=== PATIENT | female | born 1955 | race Caucasian/White ===

== ENCOUNTER → 2016-12-12 | Day surgery (SDC) | payer OTHER ==
[2016-12-07 15:08] VITALS: Ht 154.9 cm; Wt 78.6 kg
[~2016-12-12] VITALS: Ht 154.9 cm; Wt 78.6 kg
[~2016-12-12] MED LIST: 500ML BSSPLUS 0.5ML EPI1:1000 IRRIG ONE; ACETAMINOPHEN 325 MG TAB PO PRN; ASPI81TA28 PO; ATROPINE SULFATE 0.1 MG/ML 5ML SYR IV PRN; ATROPINE SULFATE 1% OP OINT PER APPLICATION CHARGE ONE; ATROPINE SULFATE 1% OP SOLN 2 ML BTL ONE; BSS FLUSH ONE; BUPIVACAINE HCL 0.75% 10 ML AMP/VIAL ONE; CARV6.252 PO; CEFAZOLIN SOD 1 GM VIAL ONE; DEXAMETHASONE SOD INJ 4 MG/ML VIAL ONE; DEXTROSE 50% 50 ML SYR ONE; EpHEDrine SULFATE INJ 50 MG/ML AMP IV PRN; EpINEphrine INJ 1MG/ML AMP 1 MG/ML AMP ONE; FENTANYL CITRATE INJ 50 MCG/1 ML 2 ML VIAL ONE; FURO20TA PO; HYALURONIDASE HUMAN 150 UNIT/ML INJ ONE; INDOCYANINE GREEN 25 MG/10 ML ONE; INSDGI SC; LACTATED RINGER'S 1000ML 500 ML IV SCH; LIDOCAINE HCL 2% 2 ML VIAL (20MG/ML) ONE; LIDOCAINE MPF 4% INJ INJ ONE; LISI20TA3 PO; MIDAZOLAM HCL 1 MG/ML 2ML VIAL ONE; NEOMYCIN/POLYMYX/DEXAMETH OP OINT PER APP CHARGE ONE; OCUCOAT 1 ML SOLN IO ONE; ONDANSETRON INJ 2 MG/ML 2 ML VIAL IV PRN; ONDANSETRON INJ 2 MG/ML 2 ML VIAL ONE; POVIDONE-IODINE OP SOLN (SURGERY CNTR CHARGING ONLY) ONE; PROPARACAINE 0.5% OP SOLN PER DROP CHARGE OPL SCH; PROPOFOL IV EMULSION 10 MG/ML 20 ML VIAL IV ONE; TIMOLOL MALEATE 0.5% OP SOLN PER DROP CHARGE ONE; TRIAMCINOLONE ACETONIDE OPHTH 40 MG/ML VIAL STERILE IO ONE
[2016-12-12] MEDS: PHENYLEPHRINE HCL 2.5% OP SOLN PER DROP CHARGE OPL SCH ×2 (06:34→06:46)
[2016-12-12] MEDS: TROPICAMIDE 1% OP SOLN PER DROP CHARGE OPL SCH ×2 (06:35→06:47)
--- NOTE | 2016-12-12 06:57 | History & Physical Bridge - [place] ---
H&P Re-Evaluation Bridge Note: Pt has diabetic retinopathy of the left eye and is here for vitrectomy of the left eye. I have examined the patient, reviewed the History & Physical and in the interval since the performance of the History & Physical I have noted the following changes of clinical significance: No changes noted
--- NOTE | 2016-12-12 08:17 | [facility] Operative Report ---
Operative Report Date of Service Dec 12, 2016. Operative Report PREOPERATIVE DIAGNOSIS: Diabetic retinopathy with vitreous hemorrhage and tractional retinal detachment, left eye. POSTOPERATIVE DIAGNOSIS: same. PROCEDURE: 1. Pars plana vitrectomy, 23 gauge. 2. Membrane peeling/ segmentation. 3. Endolaser. All to the left eye. CPT CODE: 77636 SURGEON: Favian Stein D.O. COMPLICATIONS: None. ESTIMATED BLOOD LOSS: None. SPECIMENS: None. ANESTHESIA: Retrobulbar block and MAC INDICATIONS FOR PROCEDURE: Surgery is indicated to decrease risk of vision loss and potentially improve vision. CONSENT: The risks, benefits and alternatives were discussed with the patient including but not limited to decreased visual acuity, failure to achieve desired results, loss of the eye, infection, pain, glaucoma, lens changes, retinal tears, retinal detachment, the need for more procedures, drooping of the eyelid, blindness, and double vision. The patient is aware of risks and consents to the surgery. Consent is signed and on the chart. OPERATION AND FINDINGS: The patient was brought to the operating room where the patient was identified by name, date, and medical record number. The surgical site was confirmed with the informed written consent. The patient was sedated by the anesthesiology team after which a 50:50 mixture of 4% lidocaine and 0.75% bupivacaine with hyaluronidase was administered in a standard retrobulbar fashion. A total of 4 ml was administered without difficulty. The patient was then prepped and draped in the usual sterile manner for retinal surgery. A wire lid speculum was placed and an Quoc 23-gauge trocar cannula system was employed. The inferior temporal trocar cannula was first placed in an angled fashion 3.75mm posterior to the surgical limbus and the infusion cannula was inserted into this cannula after which the intravitreal position was verified prior to turning the infusion on. Two more trocar cannulas were then inserted in an angled fashion, one in the superior temporal, and one in the superior nasal quadrant both 3.75mm posterior to the surgical limbus. A light pipe and vitrector were then introduced into the eye and the BIOM wide angle viewing system was brought into place. Posterior inspection revealed proliferative diabetic retinopathy with tractional retinal detachments along the superior and inferior to the temporal arcades as well as in the temporal macula. There was also noted previous laser treatment. Standard core vitrectomy was performed and the vitreous was insured to be totally detached from the posterior pole with the aid of the vitrector. The areas of regressed neovascularization and tractional detachment were segmented with the vitrector and after this they relaxed and flattened nicely. Endolaser was used to perform fill-in davidson retinal photocoagulation. At this point scleral depression was performed for 360 degrees and no retinal tears or detachments were noted. The trocar cannulas were then removed and found to be water tight. The intraocular pressure was found to be within normal limits by palpation and subconjunctival injections of Kefzol and dexamethasone were administered inferiorly and superiorly. The wire lid speculum was removed. Maxitrol and Atropine ointments were applied to the surface of the eye. A light patch and shield were taped over the surface of the eye and the patient left the Operating Room in stable condition having tolerated the procedure well. DISPOSITION: The patient has an appointment the following morning in the Ophthalmology Clinic. The patient is to call immediately if there are any problems overnight. I attest to the content of the Intraoperative Record and any orders documented therein. Any exceptions are noted below.
--- NOTE | 2016-12-12 08:18 | Discharge Instructions-SurgCtr ---
Discharge Instructions Date of Service Dec 12, 2016. Visit Reason for Visit: Left Eye Diabetic Retinopathy Discharge Discharge Diagnosis / Problem: same Discharge Goals Goal(s): Improve function Medications Stopped Medications Name(s): Held aspirin since last Activity Recommendations Activity Limitations: per Instructions/Follow-up section Anesthesia . Post Anesthesia Instructions: If you have had General Anesthesia or IV Sedation: * Do not drive today. * Resume driving when surgeon permits. * Do not make important decisions or sign legal documents today. * Call surgeon for: 1. Temperature elevations greater than 101 degrees F. 2. Uncontrollable pain. 3. Excessive bleeding. 4. Persistent nausea and vomiting. 5. Medication intolerance (nausea, vomiting or rash). * For nausea and vomiting use only clear liquids such as: tea, soda, bouillon until nausea subsides, then gradually increase diet as tolerated. * If you have any concerns or questions, call your surgeon's office. If physician is unavailable and it is an emergency, call 911 or go to the nearest emergency room. . Instructions / Follow-Up Instructions / Follow-Up * May take Tylenol if needed for discomfort. * Do NOT remove eye shield. * NO straining, heavy lifting (>15 pounds) or bending below waist. * Avoid getting water or soap directly into operative eye. * Do NOT rub eye. If you experience increasing eye pain not relieved by medication, please contact us immediately at [phone]. If you are unable to reach someone at the above number, call [phone] and ask to speak with the EYE DOCTOR HALL SUPERVISOR. Inform them that you are a Dr. Stein patient who had recent surgery. Diet Recommendations Home Diet: resume previous diet Procedures Procedures Performed: Left Eye 23 Guage Vitrectomy, Endolaser, Segmentation and Peeling. Pending Studies Studies pending at discharge: no Medical Emergencies . Who to Call and When: Medical Emergencies: If at any time you feel your situation is an emergency, please call 911 immediately. . Non-Emergent Contact Non-Emergency issues call your: Theater Set Production Designer . . "Provider Documentation" section prepared by Favian Stein. .
[2016-12-12 08:38] VITALS: BP 155/84; PULSE 67; O2SAT 91
--- NOTE | 2016-12-12 08:49 | Anesthesia Progress Nt - [facility] ---
Anesthesia Post Op Note Date & Time Dec 12, 2016 at 08:49 Vital Signs Pain Intensity: 0 Vital Signs Past 12 Hours Date Time Temp Pulse Resp B/P (MAP) Pulse Ox O2 Delivery O2 Flow Rate FiO2 12/12/16 08:38 67 18 155/84 (107) 91 Room Air 12/12/16 08:16 36.2 60 14 124/69 (87) 94 Room Air 12/12/16 06:28 36.5 71 22 142/68 (92) 92 Room Air Notes Mental Status: alert / awake / arousable, participated in evaluation Pt Amnestic to Procedure: Yes Nausea / Vomiting: adequately controlled Pain: adequately controlled Airway Patency, RR, SpO2: stable & adequate BP & HR: stable & adequate Hydration State: stable & adequate Anesthetic Complications: no major complications apparent
== END | disposition home or self-care (01) ==
LOC: X.SURG 06:13
PROVIDERS: ATTEND Ophthalmology
DX: E11.3592 Type 2 diabetes mellitus with proliferative diabetic retinopathy without macular edema, left eye (principal); H33.22 Serous retinal detachment, left eye; E11.42 Type 2 diabetes mellitus with diabetic polyneuropathy; N18.4 Chronic kidney disease, stage 4 (severe); Z86.73 Personal history of transient ischemic attack (TIA), and cerebral infarction without residual deficits; Z79.4 Long term (current) use of insulin; Z79.82 Long term (current) use of aspirin; F43.21 Adjustment disorder with depressed mood; E11.29 Type 2 diabetes mellitus with other diabetic kidney complication; Z80.41 Family history of malignant neoplasm of ovary; Z82.49 Family history of ischemic heart disease and other diseases of the circulatory system; I12.9 Hypertensive chronic kidney disease with stage 1 through stage 4 chronic kidney disease, or unspecified chronic kidney disease; I50.20 Unspecified systolic (congestive) heart failure; I42.9 Cardiomyopathy, unspecified; E78.00 Pure hypercholesterolemia, unspecified; G47.30 Sleep apnea, unspecified; F32.9 Major depressive disorder, single episode, unspecified; F41.9 Anxiety disorder, unspecified; K21.9 Gastro-esophageal reflux disease without esophagitis

== ENCOUNTER → 2017-06-19 | Day surgery (SDC) | payer OTHER ==
[2017-06-06 14:41] VITALS: Ht 154.9 cm; Wt 75.9 kg
[~2017-06-19] VITALS: Ht 154.9 cm; Wt 75.9 kg
[~2017-06-19] MED LIST changes: -500ML BSSPLUS 0.5ML EPI1:1000 IRRIG ONE; -ATROPINE SULFATE 1% OP OINT PER APPLICATION CHARGE ONE; -ATROPINE SULFATE 1% OP SOLN 2 ML BTL ONE; -BSS FLUSH ONE; +CHOL1TAB42 PO; -DEXTROSE 50% 50 ML SYR ONE; +FENTANYL CITRATE INJ 50 MCG/1 ML 2 ML VIAL IV PRN; -LIDOCAINE MPF 4% INJ INJ ONE; -OCUCOAT 1 ML SOLN IO ONE; -ONDANSETRON INJ 2 MG/ML 2 ML VIAL IV PRN; -ONDANSETRON INJ 2 MG/ML 2 ML VIAL ONE; -PROPARACAINE 0.5% OP SOLN PER DROP CHARGE OPL SCH; +PROPARACAINE 0.5% OP SOLN PER DROP CHARGE OPR SCH
[2017-06-19] MEDS: PHENYLEPHRINE HCL 2.5% OP SOLN PER DROP CHARGE OPR SCH ×2 (10:36→10:41)
[2017-06-19] MEDS: TROPICAMIDE 1% OP SOLN PER DROP CHARGE OPR SCH ×2 (10:37→10:42)
--- NOTE | 2017-06-19 12:04 | History & Physical Bridge - [place] ---
H&P Re-Evaluation Bridge Note: pt has diabetic retinopathy right eye and is having vitrectomy right eye. I have examined the patient, reviewed the History & Physical and in the interval since the performance of the History & Physical I have noted the following changes of clinical significance: No changes noted
--- NOTE | 2017-06-19 13:03 | [facility] Post Operative Brief Note ---
Immediate Operative Summary Operative Date Jun 19, 2017. Pre-Operative Diagnosis Right Eye Diabetic Retinopathy Post-Operative Diagnosis Same Procedure(s) Performed Right Eye [address] Stein Autopsy Pathologist Surgeon(s) None Estimated Blood Loss none Findings Consistent with Post-Op Diagnosis Specimens None Anesthesia Type General
--- NOTE | 2017-06-19 13:07 | [facility] Operative Report ---
Operative Report Date of Service Jun 19, 2017. Operative Report PREOPERATIVE DIAGNOSIS: Diabetic retinopathy with vitreous hemorrhage, right eye. POSTOPERATIVE DIAGNOSIS: same. PROCEDURE: 1. Pars plana vitrectomy, 23 gauge. 2. Endolaser. All to the right eye. CPT CODE: 08669 SURGEON: Favian Stein D.O. COMPLICATIONS: None. ESTIMATED BLOOD LOSS: None. SPECIMENS: None. ANESTHESIA: Retrobulbar block and MAC INDICATIONS FOR PROCEDURE: Surgery is indicated to decrease risk of vision loss and potentially improve vision. CONSENT: The risks, benefits and alternatives were discussed with the patient including but not limited to decreased visual acuity, failure to achieve desired results, loss of the eye, infection, pain, glaucoma, lens changes, retinal tears, retinal detachment, the need for more procedures, drooping of the eyelid, blindness, and double vision. The patient is aware of risks and consents to the surgery. Consent is signed and on the chart. OPERATION AND FINDINGS: The patient was brought to the operating room where the patient was identified by name, date, and medical record number. The surgical site was confirmed with the informed written consent. The patient was sedated by the anesthesiology team after which a 50:50 mixture of 2% lidocaine and 0.75% bupivacaine with hyaluronidase was administered in a standard retrobulbar fashion. A total of 4 ml was administered without difficulty. The patient was then prepped and draped in the usual sterile manner for retinal surgery. A wire lid speculum was placed and an Quoc 23-gauge trocar cannula system was employed. The inferior temporal trocar cannula was first placed in an angled fashion 3.75mm posterior to the surgical limbus and the infusion cannula was inserted into this cannula after which the intravitreal position was verified prior to turning the infusion on. Two more trocar cannulas were then inserted in an angled fashion, one in the superior temporal, and one in the superior nasal quadrant both 3.75mm posterior to the surgical limbus. A light pipe and vitrector were then introduced into the eye and the BIOM wide angle viewing system was brought into place. Posterior inspection revealed partially regressed proliferative diabetic retinopathy with neovascularization tags superior and inferior to the temporal arcades. There was also noted previous laser treatment. Standard core vitrectomy was performed and the vitreous was insured to be totally detached from the posterior pole with the aid of the vitrector. The areas of regressed neovascularization were segmented with the vitrector and intraocular cautery was used to cauterize the neovascularization. Endolaser was used to perform fill -in davidson retinal photocoagulation. At this point scleral depression was performed for 360 degrees and no retinal tears or detachments were noted. The trocar cannulas were then removed and found to be water tight. The intraocular pressure was found to be within normal limits by palpation and subconjunctival injections of Kefzol and dexamethasone were administered inferiorly and superiorly. The wire lid speculum was removed. Maxitrol ointment was applied to the surface of the eye. A light patch and shield were taped over the surface of the eye and the patient left the Operating Room in stable condition having tolerated the procedure well. DISPOSITION: The patient has an appointment the following morning in the Ophthalmology Clinic. The patient is to call immediately if there are any problems overnight. I attest to the content of the Intraoperative Record and any orders documented therein. Any exceptions are noted below.
--- NOTE | 2017-06-19 13:08 | Discharge Instructions-SurgCtr ---
Discharge Instructions Date of Service Jun 19, 2017. Visit Reason for Visit: Diabetic Retinopathy Discharge Discharge Diagnosis / Problem: same Discharge Goals Goal(s): Improve function Activity Recommendations Activity Limitations: per Instructions/Follow-up section Anesthesia . Post Anesthesia Instructions: If you have had General Anesthesia or IV Sedation: * Do not drive today. * Resume driving when surgeon permits. * Do not make important decisions or sign legal documents today. * Call surgeon for: 1. Temperature elevations greater than 101 degrees F. 2. Uncontrollable pain. 3. Excessive bleeding. 4. Persistent nausea and vomiting. 5. Medication intolerance (nausea, vomiting or rash). * For nausea and vomiting use only clear liquids such as: tea, soda, bouillon until nausea subsides, then gradually increase diet as tolerated. * If you have any concerns or questions, call your surgeon's office. If physician is unavailable and it is an emergency, call 911 or go to the nearest emergency room. . Instructions / Follow-Up Instructions / Follow-Up * May take Tylenol if needed for discomfort. * Do NOT remove eye shield. * NO straining, heavy lifting (>15 pounds) or bending below waist. * Avoid getting water or soap directly into operative eye. * Do NOT rub eye. If you experience increasing eye pain not relieved by medication, please contact us immediately at [phone]. If you are unable to reach someone at the above number, call [phone] and ask to speak with the EYE DOCTOR STEAMER BLOCKER. Inform them that you are a Dr. Stein patient who had recent surgery. Diet Recommendations Home Diet: resume previous diet Procedures Procedures Performed: Left Eye 23 Gauge Vitrectomy, Endolaser Pending Studies Studies pending at discharge: no Medical Emergencies . Who to Call and When: Medical Emergencies: If at any time you feel your situation is an emergency, please call 911 immediately. . Non-Emergent Contact Non-Emergency issues call your: Commercial Drone Pilot . . "Provider Documentation" section prepared by Favian Stein. .
--- NOTE | 2017-06-19 13:28 | Anesthesia Progress Nt - [facility] ---
Anesthesia Post Op Note Date & Time Jun 19, 2017 at 13:28 Vital Signs Pain Intensity: 0 Vital Signs Past 12 Hours Date Time Temp Pulse Resp B/P (MAP) Pulse Ox O2 Delivery O2 Flow Rate FiO2 06/19/17 13:06 36 61 16 143/65 (91) 93 Room Air 06/19/17 10:32 36.8 78 16 112/66 (81) 95 Room Air Notes Mental Status: alert / awake / arousable, participated in evaluation Pt Amnestic to Procedure: Yes Nausea / Vomiting: adequately controlled Pain: adequately controlled Airway Patency, RR, SpO2: stable & adequate BP & HR: stable & adequate Hydration State: stable & adequate Anesthetic Complications: no major complications apparent
[2017-06-19 13:32] VITALS: BP 155/72; PULSE 66; TEMP 36.5; O2SAT 95
== END | disposition home or self-care (01) ==
LOC: X.SURG 10:02
PROVIDERS: ATTEND Ophthalmology
DX: E11.3511 Type 2 diabetes mellitus with proliferative diabetic retinopathy with macular edema, right eye (principal); F43.21 Adjustment disorder with depressed mood; E11.39 Type 2 diabetes mellitus with other diabetic ophthalmic complication; E11.42 Type 2 diabetes mellitus with diabetic polyneuropathy; E55.9 Vitamin D deficiency, unspecified; E78.5 Hyperlipidemia, unspecified; E11.29 Type 2 diabetes mellitus with other diabetic kidney complication; N18.4 Chronic kidney disease, stage 4 (severe); Z86.73 Personal history of transient ischemic attack (TIA), and cerebral infarction without residual deficits; Z79.82 Long term (current) use of aspirin; Z79.4 Long term (current) use of insulin; Z80.41 Family history of malignant neoplasm of ovary

== ENCOUNTER 2018-07-07 07:40 | Inpatient (IN) ==
--- NOTE | 2018-07-07 07:59 | Emergency Department Note ---
ED Visit Note Please see Dr. Adan's dictation regarding HPI and physical examination. I agree with all findings as previously outlined. X-ray was reviewed and noted a fracture/dislocation of the right ankle with complete disruption of the tibiotalar joint, markedly displaced angulated distal right fibular fracture and medial malleolar fracture. I was asked by Dr. Light to assist with the reduction while he performs a sedation. The patient has an obviously deformed right ankle. Dorsal pedal pulse 2+. PROCEDURE NOTE: Time out was called. The patient was appropriately sedated by Dr. Adan. Under sedation, the foot was dorsiflexed and gentle traction applied to the heel. The fracture/dislocation was felt to reduce into anatomical alignment. The fracture was extremely unstable and there was difficulty maintaining alignment after reduction. With optometric technologist assistance, an orthoglass posterior leg with stirrup splint was applied and molded by myself at the joint to maintain alignment. Neurovascular status was re-checked and in tact. The patient tolerated the procedure well. Please see Dr. Adan's dictation regarding ongoing management and care of this patient.
--- NOTE | 2018-07-07 08:08 | XRay Report ---
XR ankle RT 2V CLINICAL HISTORY: fall, dislocation?, frx? COMPARISON: None FINDINGS: There is complete disruption of the tibiotalar joint. There is a markedly displaced fractu re of the medial malleolus as well as a markedly displaced angulated comminuted distal right fibular fracture. Dome is intact. The distal medial tibia at site of fracture nearly extends to the skin. How ever, there is no soft tissue gas. IMPRESSION: Fracture/dislocation of the right ankle with complete disruption of the tibiotalar joint, markedly di splaced angulated distal right fibular fracture and medial malleolar fracture. Distal medial tibial f racture site extends nearly to the skin. No soft tissue gas identified however findings could be edison elated with physical exam to exclude an open fracture. Electronically signed by: Go Romeo M.D. 07/07/2018 8:06 AM
[2018-07-07] MEDS ORDERED: ONDANSETRON INJ 2 MG/ML 2 ML VIAL IV STA (08:17)
[2018-07-07] MEDS ORDERED: PROPOFOL IV EMULSION 10 MG/ML 20 ML VIAL IV STA (08:17)
[2018-07-07 08:18] LABS: Basophils # (auto) 0.03 K/uL (0-0.2); Basophils % (auto) 0.4 %; Eosinophils # (auto) 0.28 K/uL (0-0.5); Eosinophils % (auto) 4.1 %; Hemoglobin 10.4 g/dL (12.0-16.0); Immature Granulocytes # (auto) 0.03 K/uL (0.00-0.02); Immature Granulocytes % (auto) 0.4 %; Lymphocytes # (auto) 2.24 K/uL (1.2-3.4); Lymphocytes % (auto) 32.4 %; Mean Corpuscular Hgb Conc 32.5 g/dL (32-36); Mean Corpuscular Volume 89.9 fL (80-100); Mean Platelet Volume 9.2 fL (7.4-10.4); Monocytes # (auto) 0.37 K/uL (0.11-0.59); Monocytes % (auto) 5.4 %; Neutrophils # (auto) 3.96 K/uL (1.4-6.5); Neutrophils % (auto) 57.3 %; Platelet Count 286 K/uL (130-400); RDW Coefficient of Variation 13.3 % (11.5-14.5); RDW Standard Deviation 43.8 fL (36.4-46.3); Red Blood Count 3.56 M/uL (4.2-5.4); White Blood Count 6.91 K/uL (4.8-10.8)
--- NOTE | 2018-07-07 08:25 | Procedure Note ---
Procedure Note Date of Service July 07, 2018 Pre Sedation Assessment Vital Signs Temp Pulse Resp BP Pulse Ox 07/07/18 07:44 36.7 C 66 17 193/85 H 97 Pre-Sedation Airway Assessment Smoking Status: Never smoker Notes The planned sedation has been discussed with the patient. Informed Consent was obtained. I have identified the patient, determined the appropriateness of sedation and have assessed the patient immediately prior to the procedure. All medicine(s) and interventions are by my order. Mallampati 3 and ASA class II due to chronic medical conditions. Patient is more than 8 hours n.p.o. Plan for utilization of propofol with Zofran.
--- NOTE | 2018-07-07 08:26 | Procedure Note ---
Procedure Note Date of Service July 07, 2018 50MG propofol used without complication for procedural sedation. Post Sedation Assessment Vital Signs Temp Pulse Resp BP Pulse Ox 07/07/18 07:44 36.7 C 66 17 193/85 H 97 Post Sedation Plan On clinical assessment, the patient appears to have tolerated the sedation without complications. Patient is recovering as anticipated. Patient will continue to be monitored by nursing and may be discharged when sedation discharge criteria are met per below protocol. Upon Completions of procedure and additional 15 minutes continue every 5 minute vital signs and the P.A.R. score; then discharge to a Phase I or Fast Track to Phase II per the following guidelines: * Discharge Patient to appropriate Phase II area if PAR is 8 or greater or return to pre- procedure baseline. The post - procedure orders will be as directed. * If PAR score is less than 8 or not return to pre-procedure baseline then patient will follow Phase I monitoring till PAR is reached for Phase II. The Phase I may be done in procedure room or may call to secure a Phase I area. * If naloxone or flumazenil are used for reversal, hold in Phase I for continued monitoring from when last reversal dose was given for a minimum of 60 minutes or longer pending the nurse and/or physician discretion of patient condition before discharge to Phase II. Please call the Sedation Physician to re-evaluate and complete post-note for discharge to Phase II area. Do NOT discharge from procedure sedation or Phase 1 until post- sedation evaluation note is complete by procedure /sedation MD Sedation Discharge Instructions to be given to the patient at discharge to home.
[2018-07-07 08:28] LABS: BUN Creatinine Ratio 30.4 (10-20); Calcium 8.9 mg/dl (8.5-10.1); Creatinine Clr Calc Pharmacy 20.6 ml/min; Est GFR (African American) 18.9; Est GFR (Non-African American) 16.3; Potassium 3.9 mmol/L (3.5-5.1)
--- NOTE | 2018-07-07 09:13 | XRay Report ---
XR tibia fibula RT 2V CLINICAL HISTORY: Fall. Postreduction. COMPARISON: Right ankle radiographs performed earlier today. FINDINGS: Overlying cast is noted. No proximal right tibial or fibular fracture is identified. Align ment of the fracture/dislocation of the right ankle has markedly improved post reduction. There is mi nimal residual medial ankle mortise widening. Alignment of the distal right fibular and tibial fractu res has markedly improved. IMPRESSION: Marked improvement in alignment of the fracture/dislocation of the right ankle post reduc tion. Electronically signed by: Go Romeo M.D. 07/07/2018 9:12 AM
--- NOTE | 2018-07-07 09:14 | XRay Report ---
XR ankle RT min 3V routine CLINICAL HISTORY: post reduction COMPARISON: Right ankle radiographs July 07, 2018 at 7:40 AM. FINDINGS: Overlying cast is noted. Alignment of the right ankle fracture/dislocation has markedly im proved post reduction. Comminuted distal right fibular fracture is noted as well as the medial malleo jolie fracture. Fractures are now mildly displaced. There is mild residual ankle mortise widening. No a dditional fractures are present. Talar dome is intact. IMPRESSION: Marked improvement in alignment of the fracture/dislocation of the right ankle postreduct ion. . Electronically signed by: Go Romeo M.D. 07/07/2018 9:13 AM
--- NOTE | 2018-07-07 10:08 | Emergency Department Note ---
Entered by Alba Au acting as a scribe for Rian Adan M.D. History of Present Illness General Chief complaint: Fall Stated complaint: fall/ ankle pain Time Seen by Provider: 07/07/18 07:44 Source: patient Mode of arrival: EMS Limitations: no limitations History of Present Illness Onset (ago): hour(s) 1 Location: lower extremity (right ankle) Radiation: non-radiation Pain Consistency: + constant Current Pain Intensity: 5 Relieved By: + none Exacerbated By: + movement Associated symptoms: + other (-knee pain, -LOC) Treatments prior to arrival: none The patient is a 63 year old female who presents to the Emergency Room with complaints of persistent right ankle pain. She reports she tripped and fell this morning, landing on her knee and twisting her right ankle. She rates her pain as a 5/10 in severity. Movement worsens her pain. She can still feel normal sensation in the foot and ankle. She denies any knee pain. She did not hit her head or sustain any other injuries during the fall. The patient did not eat breakfast this morning and states she last ate at 2200 last night. She has previously tolerated anesthesia well in the past. The patient denies any known allergies or prior cardiac history. She has taken no medications prior to arrival. Home Medications Home Medications Medication Instructions Recorded Confirmed Type aspirin 81 mg PO DAILY 07/07/18 07/07/18 History cholecalciferol (vitamin D3) 4,000 unit PO DAILY 07/07/18 07/07/18 History [Vitamin D3] coenzyme Q10 [CoQ-10] 100 mg PO DAILY 07/07/18 07/07/18 History furosemide 40 mg PO BID 07/07/18 07/07/18 History insulin glargine [Lantus U-100 30 units SUBCUT QAM 07/07/18 07/07/18 History Insulin] Allergies Allergy/AdvReac Type Severity Reaction Status Date / Time No Known Allergies Allergy Unknown Unverified 07/07/18 10:06 Past Med/Surg History Medical History Diabetes Social History Feels Safe at Home: Yes Smoking Status: Never smoker Hx Substance Use: No Preferred Language: Arabic Review of Systems See HPI for pertinent positives & negatives. and A total of 10 systems reviewed and were otherwise negative Physical Exam Vital Signs Vital Signs - 24 hr 07/07/18 07:44 07/07/18 08:40 07/07/18 08:44 Temperature 36.7 C Temperature Source Oral Sepsis Recent Fever Within 48 Hours No Sepsis New/Unexplained Change in Mental Status No Sepsis Action Taken by Nursing No Action Required Pulse Rate 66 63 60 Pulse Rate [Left] Pulse Rhythm Regular Regular Pulse Rhythm [Left] Pulse Strength [Left] Respiratory Rate 17 18 16 Respiratory Effort / Characteristics Non-Labored Spontaneous Non-Labored Spontaneous Respiratory Depth Normal Normal Respiratory Pattern Regular Regular Blood Pressure 193/85 H Blood Pressure [Right Arm] 168/82 H Blood Pressure Mean 121 Blood Pressure Mean [Right Arm] Blood Pressure Position [Right Arm] Pulse Oximetry 97 100 97 Oxygen Delivery Method Room Air Room Air Nasal Cannula Oxygen Flow Rate 2 07/07/18 08:50 07/07/18 08:51 07/07/18 08:56 Temperature Temperature Source Sepsis Recent Fever Within 48 Hours Sepsis New/Unexplained Change in Mental Status Sepsis Action Taken by Nursing Pulse Rate 59 L 59 L 58 L Pulse Rate [Left] Pulse Rhythm Pulse Rhythm [Left] Pulse Strength [Left] Respiratory Rate Respiratory Effort / Characteristics Respiratory Depth Respiratory Pattern Blood Pressure 168/82 H 161/71 H 169/76 H Blood Pressure [Right Arm] Blood Pressure Mean 110 101 107 Blood Pressure Mean [Right Arm] Blood Pressure Position [Right Arm] Pulse Oximetry 98 97 99 Oxygen Delivery Method Oxygen Flow Rate 07/07/18 08:57 07/07/18 09:01 07/07/18 09:06 Temperature 37 C Temperature Source Oral Sepsis Recent Fever Within 48 Hours Sepsis New/Unexplained Change in Mental Status Sepsis Action Taken by Nursing Pulse Rate 60 58 L Pulse Rate [Left] 59 L Pulse Rhythm Pulse Rhythm [Left] Regular Pulse Strength [Left] Normal Respiratory Rate 18 Respiratory Effort / Characteristics Non-Labored Spontaneous Respiratory Depth Normal Respiratory Pattern Regular Blood Pressure 165/68 H 136/64 Blood Pressure [Right Arm] 169/76 H Blood Pressure Mean 100 88 Blood Pressure Mean [Right Arm] 107 Blood Pressure Position [Right Arm] Lying Pulse Oximetry 97 95 97 Oxygen Delivery Method Room Air Room Air Oxygen Flow Rate 07/07/18 09:11 07/07/18 09:16 07/07/18 09:21 Temperature Temperature Source Sepsis Recent Fever Within 48 Hours Sepsis New/Unexplained Change in Mental Status Sepsis Action Taken by Nursing Pulse Rate 62 62 64 Pulse Rate [Left] Pulse Rhythm Pulse Rhythm [Left] Pulse Strength [Left] Respiratory Rate Respiratory Effort / Characteristics Respiratory Depth Respiratory Pattern Blood Pressure 150/71 H 155/65 H 167/65 H Blood Pressure [Right Arm] Blood Pressure Mean 97 95 99 Blood Pressure Mean [Right Arm] Blood Pressure Position [Right Arm] Pulse Oximetry 97 97 98 Oxygen Delivery Method Room Air Room Air Room Air Oxygen Flow Rate 07/07/18 09:31 07/07/18 10:01 07/07/18 10:30 Temperature Temperature Source Sepsis Recent Fever Within 48 Hours Sepsis New/Unexplained Change in Mental Status Sepsis Action Taken by Nursing Pulse Rate Pulse Rate [Left] 63 63 69 Pulse Rhythm Pulse Rhythm [Left] Regular Regular Regular Pulse Strength [Left] Normal Respiratory Rate 17 18 17 Respiratory Effort / Characteristics Non-Labored Spontaneous Non-Labored Spontaneous Non-Labored Spontaneous Respiratory Depth Normal Normal Normal Respiratory Pattern Regular Regular Regular Blood Pressure Blood Pressure [Right Arm] 177/77 H 173/78 H 178/84 H Blood Pressure Mean Blood Pressure Mean [Right Arm] 110 109 115 Blood Pressure Position [Right Arm] Pulse Oximetry 97 99 97 Oxygen Delivery Method Room Air Room Air Room Air Oxygen Flow Rate GENERAL: Awake, alert, well-appearing, in no distress HENT: Normocephalic, atraumatic. Oropharynx unremarkable. EYES: Normal conjunctiva. Sclera non-icteric. NECK: Supple. No nuchal rigidity. RESPIRATORY: Clear to auscultation. No wheezes. Normal respiratory effort. CARDIAC: Normal rate. Normal rhythm. Extremities warm and well perfused. GI: Soft, non-distended. No tenderness to palpation. No rebound or guarding. RECTAL: Deferred. MUSCULOSKELETAL: Atraumatic. Chest examination reveals no tenderness. LOWER EXTREMITIES: Calves are equal size bilaterally and non-tender. No edema. 1 + right DP pulse. Decreased sensation in midcalf. Obvious right lower leg and ankle deformity, foot is laterally displaced with skin tenting. NEURO: No facial droop. Peripheral neuropathy. No slurred speech. SKIN: Warm and dry. No rash or jaundice noted. Procedures Free Text Procedures Procedural Sedation Indication: Fracture/dislocation right ankle Total time: 10 minutes. Written consent was obtained after the risks and benefits were explained to the patient, including, but not limited to aspiration, allergic reaction, breathing difficulties, cardiac complications, vomiting, pain, event recall, bleeding, and /or infection. Pre-sedation examination and paperwork completed. The patient was on 100% oxygen via NRB prior to the procedure. Continous end tidal CO2 monitoring, pulse oximetry, and cardiac monitoring were utilized. Suction, airway equipment, medications, respiratory equipment, and appropriate personnel were prepared prior to the initiation of the procedure. A time out was taken. Sedation was achieved utilizing 50 mg of Propofol. After I observed the patient had reached the appropriate level of sedation the main procedure was performed without complication. Sedation was discontinued and the monitoring continued. The patient recovered quickly from the effects of the medication without complication or adverse event. Course 0745: Past medical records reviewed. The patient was evaluated in room A3, and a complete history and physical examination were performed. 0815: I discussed the risks and benefits of anesthesia with the patient and she is agreeable with the plan. 0945: I discussed the patients case with Dr. Acharya, Orthopedics. He recommends a CT scan and follow up in the office. 0955: I [facility] the patients [facility] The patient will be further evaluated. Consultations Consultation #1: I discussed the patients case with Dr. Acharya, Orthopedics. He recommends a CT scan and follow up in the office. Time: 09:45 Consultation #2: I discussed the patients case with [facility] The patient will be further evaluated. Time: 09:55 Administered Medications Discontinued Medications Ondansetron HCl (Zofran) 4 mg IV NOW STA Stop: 07/07/18 08:18 Last Admin: 07/07/18 08:42 Dose: 4 mg Propofol (Diprivan) 50 mg IV NOW STA Stop: 07/07/18 08:18 Last Admin: 07/07/18 08:46 Dose: 50 mg Medical Decision Making Differential Diagnosis Etiologies such as fracture, dislocation, neurovascular compromise, compartment syndrome, infections, as well as others were deemed relatively unlikely. Medical Records Attestation: I reviewed the patient's medical records. Home Medications Current Medication List: was personally reviewed by me Laboratory Data Attestation: I reviewed the patient's lab results. Result diagrams: 07/07/18 08:00 07/07/18 08:00 Lab Results 07/07/18 07/07/18 07/07/18 Range/Units 08:00 08:00 08:00 WBC 6.91 (4.8-10.8) K/uL RBC 3.56 L (4.2-5.4) M/uL Hgb 10.4 L (12.0-16.0) g/dL Hct 32.0 L (37-47) % MCV 89.9 (80-100) fL MCH 29.2 (25-34) pg MCHC 32.5 (32-36) g/dL RDW Std Deviation 43.8 (36.4-46.3) fL RDW Coeff of [place] 13.3 (11.5-14.5) % Plt Count 286 (130-400) K/uL MPV 9.2 (7.4-10.4) fL Immature Gran % (Auto) 0.4 % Neut % (Auto) 57.3 % Lymph % (Auto) 32.4 % [place] % (Auto) 5.4 % Eos % (Auto) 4.1 % Baso % (Auto) 0.4 % Immature Gran # (Auto) 0.03 H (0.00-0.02) K/uL Neut # (Auto) 3.96 (1.4-6.5) K/uL Lymph # (Auto) 2.24 (1.2-3.4) K/uL [place] # (Auto) 0.37 (0.11-0.59) K/uL Eos # (Auto) 0.28 (0-0.5) K/uL Baso # (Auto) 0.03 (0-0.2) K/uL PT 10.0 (9.0-12.0) Seconds INR 1.0 (0.9-1.1) Sodium 146 H (136-145) mmol/L Potassium 3.9 (3.5-5.1) mmol/L Chloride 114 H (98-107) mmol/L Carbon Dioxide 26 (21-32) mmol/L Anion Gap 6.0 (3-11) BUN 89 H (7-18) mg/dl Creatinine 2.93 H (0.6-1.2) mg/dl Est Cr Clr Drug Dosing 20.6 ml/min Est GFR ( Amer) 18.9 Est GFR (Non-Af Amer) 16.3 BUN/Creatinine Ratio 30.4 H (10-20) Glucose 112 H (70-99) mg/dl Calcium 8.9 (8.5-10.1) mg/dl Imaging Data Radiologist's Impression: Radiology results as stated below per my review and the radiologist's interpretation: XR tibia fibula RT 2V CLINICAL HISTORY: Fall. Postreduction. COMPARISON: Right ankle radiographs performed earlier today. FINDINGS: Overlying cast is noted. No proximal right tibial or fibular fracture is identified. Alignment of the fracture/dislocation of the right ankle has markedly improved post reduction. There is minimal residual medial ankle mortise widening. Alignment of the distal right fibular and tibial fractures has markedly improved. IMPRESSION: Marked improvement in alignment of the fracture/dislocation of the right ankle post reduction. Electronically signed by: Go Romeo M.D. 07/07/2018 9:12 AM XR ankle RT min 3V routine CLINICAL HISTORY: post reduction COMPARISON: Right ankle radiographs July 07, 2018 at 7:40 AM. FINDINGS: Overlying cast is noted. Alignment of the right ankle fracture/ dislocation has markedly improved post reduction. Comminuted distal right fibular fracture is noted as well as the medial malleolus fracture. Fractures are now mildly displaced. There is mild residual ankle mortise widening. No additional fractures are present. Talar dome is intact. IMPRESSION: Marked improvement in alignment of the fracture/dislocation of the right ankle postreduction. . Electronically signed by: Go Romeo M.D. 07/07/2018 9:13 AM XR ankle RT 2V CLINICAL HISTORY: fall, dislocation?, frx? COMPARISON: None FINDINGS: There is complete disruption of the tibiotalar joint. There is a markedly displaced fracture of the medial malleolus as well as a markedly displaced angulated comminuted distal right fibular fracture. Dome is intact. The distal medial tibia at site of fracture nearly extends to the skin. However , there is no soft tissue gas. IMPRESSION: Fracture/dislocation of the right ankle with complete disruption of the tibiotalar joint, markedly displaced angulated distal right fibular fracture and medial malleolar fracture. Distal medial tibial fracture site extends nearly to the skin. No soft tissue gas identified however findings could be correlated with physical exam to exclude an open fracture. Electronically signed by: Go Romeo M.D. 07/07/2018 8:06 AM Blood Pressure Blood Pressure Findings: Elevated blood pressure Blood Pressure Disposition: further management by hospitalist CLOTILDE Narrative 63-year-old female presents after tripping in her house in the carpal with her shoes. Denies striking her head or LOC. Was not down for a significant amount of time. Patient had deformity and pain in her right lower leg and ankle. Has diabetic neuropathy issues and this is at baseline with bilateral numbness to mid calves. There is lateral displacement of the foot with skin tenting medially with obvious dislocation or possible fracture. X-ray obtained to evaluate this. No other tenderness of the upper leg knee or hip. Not sure could not blood thinners do not believe an additional imaging. Basic laboratory studies were completed. ankle x-ray discussed with the patient sedation for closed reduction. This was done on emergent basis in good and the skin tenting. Consented for these procedures the patient was aware of the risks and benefits. Evidence of distal fibular fracture and medial malleolar fracture of the right tibia with dislocation. Given the skin tenting given sedation with pleaded. Postreduction films were obtained with improvement of fracture and dislocation. No longer skin tenting. Still with DP pulse. Discussed with orthopedics. She tolerated the procedure well. CT scan of the ankle was completed per orthopedics. In discussion with them given surgical schedule best for the patient be admitted for this to be surgically repaired tomorrow. Patient in agreement. [facility] contacted for admission. Dr. Acharya is the orthopedist. Impression & Plan Closed fracture of distal end of right fibula and tibia Discharge Plan Visit Data Chief Complaint: Fall Stated Complaint: fall/ ankle pain ED Provider: Rian Adan Discharge Problem: Closed fracture of distal end of right fibula and tibia Patient Disposition: Being Evaluated by Hospitalist Forms Stand Alone Forms: My [facility] Free All Media Prescriptions Prescriptions: No Action furosemide 40 mg tablet 40 mg PO BID RF: 0 insulin glargine [Lantus U-100 Insulin] 100 unit/mL solution 30 units subcut QAM RF: 0 aspirin 81 mg tablet,delayed release (DR/EC) 81 mg PO DAILY RF: 0 coenzyme Q10 [CoQ-10] 100 mg Capsule 100 mg PO DAILY RF: 0 cholecalciferol (vitamin D3) [Vitamin D3] 2,000 unit Capsule 4,000 unit PO DAILY RF: 0 Referrals Referrals: Melissa Bronson DO [Primary Care Provider] - The scribe's documentation has been prepared under my direction and personally reviewed by me in its entirety. I confirm that the note above accurately reflects all work, treatment, procedures, and medical decision making performed by me.
--- NOTE | 2018-07-07 10:11 | CT Scan Report ---
CT OF THE RIGHT ANKLE WITHOUT CONTRAST CLINICAL HISTORY: Fracture. COMPARISON STUDY: Right ankle radiographs July 07, 2018 at 8:46 AM. TECHNIQUE: Axial images of the right ankle were obtained without IV contrast. Sagittal and coronal re constructions were viewed. Study was performed utilizing automated exposure control for dose reductio n and according to ALARA principles. FINDINGS: Talar dome is intact. Mild residual medial ankle mortise widening is noted. Note is made of an acute markedly comminuted mildly displaced fracture through the distal diaphysis of the right fib nader. There is also an acute comminuted mildly displaced fracture of the medial malleolus. Talar dome is intact. Calcaneus is intact. Alignment of the subtalar joint is anatomic. Alignment of the tibiota lar joint is anatomic. Soft tissue swelling is noted. There is no soft tissue gas. A few bone fragmen ts within the distal tibiofibular syndesmosis are noted. There are no definite bone fragments within the tibiotalar joint. IMPRESSION: 1. Acute markedly comminuted mildly displaced fracture of the distal diaphysis of the right fibula. A cute mildly displaced comminuted fracture of the medial malleolus. Alignment markedly improved since prereduction radiographs. 2. Mild residual medial ankle mortise widening, significantly improved from prereduction radiographs. Electronically signed by: Go Romeo M.D. 07/07/2018 10:09 AM
--- NOTE | 2018-07-07 11:19 | History & Physical Report ---
Date of Service July 07, 2018 Assessment & Plan (1) Closed fracture of distal end of right fibula and tibia: This is a 63-year-old female with a PMH of DM II, HTN, HLD and CKD IV who presents with right ankle pain after a fall at home and was found to have a closed fracture of the distal end of R fibula and tibia with dislocation. -Initial R ankle XR with fracture/dislocation of the right ankle with complete disruption of the tibiotalar joint, markedly displaced angulated distal right fibular fracture and medial malleolar fracture. Distal medial tibial fracture site extends nearly to the skin. -Successful closed reduction performed in ED -Dr Acharya of [facility] aware. Will plan for OR in AM -Pain control, gentle fluids, NPO after midnight -Pre-op EKG, CXR ordered. No history of cardiopulmonary disease (2) Type 2 diabetes mellitus: History of uncontrolled DM II with most recent a1c of 9.2 in May 2018 -Did not take Lantus today, BSG of 112 -SSI while in-patient -Add lantus coverage if indicated -BSG checks AC HS (3) Chronic kidney disease (CKD), stage IV (severe): H/o diabetic nephropathy. Has followed with Dr. Kincaid in the past -Cr of 2.93 today (baseline Cr mid-high 2s) -Will give gentle fluids, hold lasix for now -Monitor with daily BMP (4) Hypertension: No longer taking antihypertensives (formerly on Lisinopril, carvedilol) -BP slightly elevated at 178/84 in setting of pain -Monitor, add PRN agent if indicated (5) Dyslipidemia: No longer taking Lipitor -Directed to follow up with PCP to discuss medication for HTN, HLD DVT Ppx: LLE SCD Code status: FULL PCP: Bruce Bronson Dispo: Admitted to med/surg. Discharge planning ordered. Patient seen in collaboration with Dr. Tineo. Please see addendum. History of Present Illness Chief Complaint: Fall, ankle pain Primary Care Provider: Melissa Bronson This is a 63-year-old female with a PMH of DM II, HTN, HLD and CKD IV who presents with right ankle pain after a fall at home. Patient was walking in her apartment when her shoe got caught in the carpet and she fell to the floor, twisting her right leg in the process. Noted immediate pain and deformity to her right ankle, so she came to the ED for further evaluation. Endorses 5/10 constant pain that is exacerbated by movement. Patient has history of diabetic neuropathy and has decreased sensation in lower extremities. Denies any head trauma or loss of consciousness from fall. Has history of CKD [address] Kincaid of nephrology in the past. Denies any history of SD , CHF or DVT/PE. Lives in an apartment by herself that has stairs. Denies any fever, chills, lightheadedness, headache, chest pain, palpitations, shortness of breath, nausea, vomiting, abdominal pain, dysuria, diarrhea or constipation. [id number] is at bedside. Allergies Allergy/AdvReac Type Severity Reaction Status Date / Time No Known Allergies Allergy Unknown Unverified 07/07/18 10:06 Home Medications Home Medications Medication Instructions Recorded Confirmed Type aspirin 81 mg PO DAILY 07/07/18 07/07/18 History cholecalciferol (vitamin D3) 4,000 unit PO DAILY 07/07/18 07/07/18 History [Vitamin D3] coenzyme Q10 [CoQ-10] 100 mg PO DAILY 07/07/18 07/07/18 History furosemide 40 mg PO BID 07/07/18 07/07/18 History insulin glargine [Lantus U-100 30 units SUBCUT QAM 07/07/18 07/07/18 History Insulin] Past Med/Surg History Medical History Chronic kidney disease (CKD), stage IV (severe) (Chronic) Diabetic neuropathy (Chronic) Type 2 diabetes mellitus (Chronic) Hypertension (Chronic) Dyslipidemia (Chronic) History of depression (Chronic) Surgical History History of appendectomy (Resolved) Family History Other Diabetes Social History Current Living Situation: Alone Other Information That Helps Us Care for You: No Feels Safe at Home: Yes Smoking Status: Never smoker Do You Dip or Chew Tobacco: No Second Hand Exposure: No Tobacco Cessation Education Requested by Patient: No Hx Alcohol Use: No Hx Substance Use: No Beliefs That Will Affect Care: None Preferred Language: Turkish Review of Systems All systems reviewed & are unremarkable except as noted in HPI & below Physical Exam 2 Vital Signs (Past 24 Hours): Last Vital Signs Temp 37 C 07/07/18 08:57 Pulse 69 07/07/18 10:30 Resp 17 07/07/18 10:30 BP 178/84 H 07/07/18 10:30 Pulse Ox 97 07/07/18 10:30 Physical Exam: General Appearance: WD/WN, no apparent distress, resting comfortably Head: normocephalic, atraumatic Eyes: normal inspection, PERRL, EOMI ENT: hearing grossly normal, pharynx normal (dry mucous membranes) Neck: supple, no JVD, no adenopathy Respiratory/Chest: lungs clear to auscultation. No wheezes, rales or rhonci. No respiratory distress or accessory muscle use Cardiovascular: regular rate, rhythm, no murmur, normal peripheral pulses Abdomen/GI: normal bowel sounds, soft, non-tender to palpation Extremities/Musculoskelatal: R leg with wrap in place from foot up to knee. Normal inspection of left lower extremity, no calf tenderness, normal capillary refill, no pedal edema. Neurologic/Psych: alert, normal mood/affect, oriented x 3 Skin: normal color, warm/dry Results & Data Laboratory Results Short CBC 07/07/18 Range/Units 08:00 WBC 6.91 (4.8-10.8) K/uL Hgb 10.4 L (12.0-16.0) g/dL Hct 32.0 L (37-47) % Plt Count 286 (130-400) K/uL BMP 07/07/18 08:00 Sodium 146 H Potassium 3.9 Chloride 114 H Carbon Dioxide 26 BUN 89 H Creatinine 2.93 H Glucose 112 H Calcium 8.9 Diagnostic Findings Right Ankle XR (initial): IMPRESSION: Fracture/dislocation of the right ankle with complete disruption of the tibiotalar joint, markedly displaced angulated distal right fibular fracture and medial malleolar fracture. Distal medial tibial fracture site extends nearly to the skin. No soft tissue gas identified however findings could be correlated with physical exam to exclude an open fracture. R Ankle XR (post-reduction): IMPRESSION: Marked improvement in alignment of the fracture/dislocation of the right ankle postreduction. . R Tibia Fibula XR (post-reduction): IMPRESSION: Marked improvement in alignment of the fracture/dislocation of the right ankle post reduction. CT R Ankle without contrast: IMPRESSION: 1. Acute markedly comminuted mildly displaced fracture of the distal diaphysis of the right fibula. Acute mildly displaced comminuted fracture of the medial malleolus. Alignment markedly improved since prereduction radiographs. 2. Mild residual medial ankle mortise widening, significantly improved from prereduction radiographs. Code Status & VTE Plan Code Status FULL Supervising Physician Co-Signing Physician Notes I saw this patient with the physician admissions assistant, I participated in the history, physical, review of systems, and physical exam. I reviewed the medications with the patient and the physician admissions assistant and helped reconcile the medications. I helped take a detailed family and social history as well. I formulated the assessment and plan personally with the physician admissions assistant and went over it with the patient. _ (1) Closed fracture of distal end of right fibula and tibia Encounter type: Fracture healing:
[2018-07-07] MEDS ORDERED: ONDANSETRON INJ 2 MG/ML 2 ML VIAL IV PRN (12:28)
[2018-07-07] MEDS ORDERED: GLUCAGON FOR INJ 1 MG VIAL SQ PRN (12:28)
[2018-07-07] MEDS ORDERED: GLUCOSE 40% GEL 15 GM TUBE PO PRN (12:28)
[2018-07-07] MEDS ORDERED: GLUCOSE 10 TABS/TUBE PO PRN (12:28)
[2018-07-07] MEDS ORDERED: DEXTROSE 50% 50 ML SYRINGE IV PRN (12:28)
[2018-07-07] MEDS ORDERED: CARBOHYDRATES FOR HYPOGLYCEMIA PO PRN (12:28)
--- NOTE | 2018-07-07 12:28 | XRay Report ---
XR chest 1V portable CLINICAL HISTORY: pre-op COMPARISON STUDY: Chest radiograph May 31, 2015. FINDINGS: A suspected 1.1 cm calcified right lung nodule is unchanged. This is likely benign. There i s no pneumothorax or pleural effusion. There is no consolidation or evidence for pulmonary edema. Car diac size is within normal limits. Mediastinal contours are unremarkable. IMPRESSION: No acute cardiopulmonary findings. Electronically signed by: Go Romeo M.D. 07/07/2018 12:27 PM
[2018-07-07] MEDS ORDERED: SODIUM CHLORIDE 0.9% 1000ML 1,000 ML IV SCH (12:45)
[2018-07-07] MEDS: INSULIN ASPART 100 UNITS/ML 3 ML PEN SC SCH ×3 (13:45→21:17)
[2018-07-07] MEDS: ACETAMINOPHEN 500 MG TAB PO PRN (17:25)
--- NOTE | 2018-07-07 18:43 | Anesthesiology Consultation ---
Date of Service July 07, 2018 Assessment & Plan (1) Encounter for pre-operative examination: Chart Review Chart Review: Pending: Refer to Additional Notes / Consult section (ECG ordered but not yet in system, also will monitor for any renal function changes in AM) History Surgery Operation Date: 07/08/18 09:30 Proposed Procedures p Open Reduction Internal Fixation Ankle(Right) - Artem Acharya DO Height/Weight Height: 5 ft 3 in Weight: 87.2 kg Allergies Allergy/AdvReac Type Severity Reaction Status Date / Time No Known Allergies Allergy Unknown Unverified 07/07/18 10:06 Medications Home Medications Medication Instructions Recorded Confirmed Last Taken aspirin 81 mg PO DAILY 07/07/18 07/07/18 07/06/18 cholecalciferol (vitamin D3) 4,000 unit PO DAILY 07/07/18 07/07/18 07/06/18 [Vitamin D3] coenzyme Q10 [CoQ-10] 100 mg PO DAILY 07/07/18 07/07/18 07/06/18 furosemide 40 mg PO BID 07/07/18 07/07/18 07/06/18 insulin glargine [Lantus U-100 30 units SUBCUT QAM 07/07/18 07/07/18 07/06/18 Insulin] Active Medications Generic Name Dose Route Start Last Admin Trade Name Freq PRN Reason Stop Dose Admin Acetaminophen 1,000 mg 07/07/18 11:57 07/07/18 17:25 Tylenol PO 08/06/18 11:56 1,000 mg Q8H PRN Administration Pain Sodium Chloride 1,000 mls @ 80 mls/hr 07/07/18 12:45 07/07/18 13:45 Nss 1000ml IV 07/08/18 01:14 80 mls/hr .[id number] JOSE FRANCISCO Administration Insulin Aspart 0 units 07/07/18 12:45 07/07/18 18:04 Novolog Flexpen SC 08/06/18 12:44 8 units ACHS JOSE FRANCISCO Administration Past Medical History Medical History Chronic kidney disease (CKD), stage IV (severe) (Chronic) acute bump in creatinine this admit Diabetic neuropathy (Chronic) Type 2 diabetes mellitus (Chronic) Hypertension (Chronic) Dyslipidemia (Chronic) History of depression (Chronic) Past Family History Family History Other Diabetes Past Surgical History Surgical History History of appendectomy (Resolved) Social History Smoking Status: Never smoker Do You Dip or Chew Tobacco: No Hx Alcohol Use: No Hx Substance Use: No substance use type: does not use Physical Exam Vital Signs Last Vital Signs Temp 36.7 C 07/07/18 15:16 Pulse 75 07/07/18 15:16 Resp 19 07/07/18 15:16 BP 168/79 H 07/07/18 15:16 Pulse Ox 94 07/07/18 15:16 Testing Laboratory Results 07/07/18 08:00 07/07/18 08:00 PT 10.0 Seconds (9.0-12.0) 07/07/18 08:00 INR 1.0 (0.9-1.1) 07/07/18 08:00 07/07/18 07/07/18 16:58 12:51 POC Glucose 221 H 94
[2018-07-08] MEDS ORDERED: Nursing to Pharmacy 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 ONE ×2 (03:07→13:55)
[2018-07-08 05:46] LABS: Hematocrit (blood only) 26.4 % (37-47); Hemoglobin 8.4 g/dL (12.0-16.0); Mean Corpuscular Hgb Conc 31.8 g/dL (32-36); Mean Corpuscular Volume 92.3 fL (80-100); Mean Platelet Volume 9.1 fL (7.4-10.4); Platelet Count 234 K/uL (130-400); RDW Coefficient of Variation 13.5 % (11.5-14.5); RDW Standard Deviation 45.6 fL (36.4-46.3); Red Blood Count 2.86 M/uL (4.2-5.4); White Blood Count 7.89 K/uL (4.8-10.8)
[2018-07-08] MEDS: INSULIN ASPART 100 UNITS/ML 3 ML PEN SC SCH ×5 (06:14→23:29)
[2018-07-08 06:23] LABS: BUN Creatinine Ratio 27.2 (10-20); Creatinine Clr Calc Pharmacy 20.1 ml/min; Est GFR (African American) 18.4; Est GFR (Non-African American) 15.9; Potassium 4.4 mmol/L (3.5-5.1)
--- NOTE | 2018-07-08 08:36 | Nephrology Consultation ---
Date of Consultation July 08, 2018 Assessment & Plan (1) Chronic kidney disease (CKD), stage IV (severe): her baseline creatinine over past 14 mos is 2.6-3.0, so would consider her at baseline currently, and on verge of CKD 5 though no immediate need for dialysis. her creatinine has NOT changed significantly since admission or from her outpt baseline, though she is certainly at risk for this. hx of nephrotic range proteinuria from longstanding dm, htn. -from a renal standpoint no contraindication to OR today -avoid nsaids, iv contrast, extremes or swings in blood pressure (high or low) -ensure daily bmp -agree w/ holding lasix for now Present on Admission?: Yes (2) Hypertension: controlled currently w/o meds (? role for pain meds here); monitor and use meds as needed Present on Admission?: Yes (3) Disorder of fluid or electrolyte: very mild hypernatremia and hyperchloremia > not enough to intervene before surgery; potassium acceptable; no suspicion for acidemia currently -daily bmp -AND repeat bmp after OR this afternoon >> ordered for 1600 -recommend gentle IVF, composition to depend on 1600 lab results Present on Admission?: Yes (4) Anemia in chronic kidney disease: will look at her recent OP labs to decide next steps; -as OP would discuss anemia clinic and ensure PCP pursuing age appropriate CA screening -as IP, primary service to transfuse for anemia sx or for hgb less than 7 per routine Present on Admission?: Yes History of Present Illness Reason for Consultation: CKD4 Requesting Physician: Dr Tineo Attending Physician: Tyler Tineo, DO History of Present Illness 63 y/o F whom I'm asked to see emergently before OR later this AM for ORIF R ankle. PMH includes CKD longstanding w/ nephrotic range proteinuria, IDDM, HTN , HL, chronic anemia. Her baseline creatinine is 2.6-3.0 in 2018 w/ most recent OP check May 2018 in same range. She follows w/ me in CKD clinic but has not scheduled requested f/u >> I last saw her 05/2017 w/ 2 mo f/u requested. We will ensure she has CKD clinic f/u w/ [facility] at d/c. Her anemia is chronic and per pt pcp had recently considered heme eval for this (likely also large component of anemia of CKD as well). Last hospital stay was 05/2015 for mgt of ruptured appendix. She was reaching up to change a wall switch yesterday am when her diabetic boot/slipper caught on floor items and she fell. Currently feels very slightly edematous but otherwise musculoskeletal pain is controlled and no n/v/d, sob, recent acute illness, voiding concerns. Allergies Allergy/AdvReac Type Severity Reaction Status Date / Time No Known Allergies Allergy Unknown Unverified 07/07/18 10:06 Home Medications Home Medications Medication Instructions Recorded Confirmed Type aspirin 81 mg PO DAILY 07/07/18 07/07/18 History cholecalciferol (vitamin D3) 4,000 unit PO DAILY 07/07/18 07/07/18 History [Vitamin D3] coenzyme Q10 [CoQ-10] 100 mg PO DAILY 07/07/18 07/07/18 History furosemide 40 mg PO BID 07/07/18 07/07/18 History insulin glargine [Lantus U-100 30 units SUBCUT QAM 07/07/18 07/07/18 History Insulin] Patient History Medical History Chronic kidney disease (CKD), stage IV (severe) (Chronic) Diabetic neuropathy (Chronic) Type 2 diabetes mellitus (Chronic) Hypertension (Chronic) Dyslipidemia (Chronic) History of depression (Chronic) Surgical History History of appendectomy (Resolved) Family History Other Diabetes Social History Current Living Situation: Alone Other Information That Helps Us Care for You: No Feels Safe at Home: Yes Smoking Status: Never smoker Do You Dip or Chew Tobacco: No Hx Alcohol Use: No Hx Substance Use: No Beliefs That Will Affect Care: None Preferred Language: Citizen Of [place] Review of Systems Constitutional: + fatigue and + weakness; no fever, no chills and no body aches Eyes: no worsening vision Ear, Nose, Mouth, Throat: no dry mouth Respiratory: no dyspnea Cardiovascular: + edema; no chest pain and no palpitations Gastrointestinal: no abdominal pain, no nausea, no vomiting, no change in bowel habits and no diarrhea/loose stools Genitourinary (Female): no dysuria, no difficulty urinating, no urinary frequency, no urinary hesitancy, no urinary urgency and no hematuria Musculoskeletal: as per Subjective / HPI Integumentary: no rash and no non-healing lesions Neurologic: no localized weakness, no generalized weakness, no paresthesia and no confusion Psychiatric: no behavioral changes Endocrine: + fatigue Hematologic / Lymphatic: no easy bleeding Physical Exam 2 Vital Signs (Past 24 Hours): Last Vital Signs Temp 37.0 C 07/08/18 07:03 Pulse 65 07/08/18 07:03 Resp 20 07/08/18 07:03 BP 131/75 07/08/18 07:03 Pulse Ox 95 07/08/18 07:03 Constitutional: well developed and well nourished obese, on RA, A& 0 x 3 nad Eyes: EOM intact bilaterally ENMT: Ears: no external ear abnormality Nose: no external nose abnormality Mouth: + dry oral mucous membranes Neck: no nuchal rigidity Respiratory: normal respiratory effort Auscultation: + diminished lung sounds Cardiovascular: RRR, no murmur, no edema Gastrointestinal (Abdomen): Inspection/Auscultation: normal bowel sounds Percussion/Palpation: abdomen soft; abdomen nontender Musculoskeletal: Extremities: strength 5/5 throughout Skin: no rashes, warm and dry Neurologic: ross, fluent speech, no tremor Psychiatric: A+Ox3, euthymic affect Speech: normal rate/rhythm/volume of speech Genitourinary: no shaffer Results & Data Laboratory Results Abnormal lab results 07/07/18 07/07/18 07/08/18 Range/Units 16:58 20:24 05:23 RBC 2.86 L (4.2-5.4) M/uL Hgb 8.4 L (12.0-16.0) g/dL Hct 26.4 L (37-47) % MCHC 31.8 L (32-36) g/dL Sodium (136-145) mmol/L Chloride (98-107) mmol/L BUN (7-18) mg/dl Creatinine (0.6-1.2) mg/dl BUN/Creatinine Ratio (10-20) Glucose (70-99) mg/dl POC Glucose 221 H 302 H (70-99) Calcium (8.5-10.1) mg/dl 07/08/18 07/08/18 Range/Units 05:23 06:12 RBC (4.2-5.4) M/uL Hgb (12.0-16.0) g/dL Hct (37-47) % MCHC (32-36) g/dL Sodium 146 H (136-145) mmol/L Chloride 117 H (98-107) mmol/L BUN 82 H (7-18) mg/dl Creatinine 3.00 H (0.6-1.2) mg/dl BUN/Creatinine Ratio 27.2 H (10-20) Glucose 140 H (70-99) mg/dl POC Glucose 158 H (70-99) Calcium 8.0 L (8.5-10.1) mg/dl Diagnostic Findings CT ankle non con R 1. Acute markedly comminuted mildly displaced fracture of the distal diaphysis of the right fibula. Acute mildly displaced comminuted fracture of the medial malleolus. Alignment markedly improved since prereduction radiographs. 2. Mild residual medial ankle mortise widening, significantly improved from prereduction radiographs. CXR > no acute CP findings _ (1) Anemia in chronic kidney disease Chronic kidney disease stage: stage 4 (severe) Qualified Code(s): N18.4 - Chronic kidney disease, stage 4 (severe); D63.1 - Anemia in chronic kidney disease (2) Hypertension Hypertension type: essential hypertension Qualified Code(s): I10 - Essential (primary) hypertension
[2018-07-08] MEDS ORDERED: DEXAMETHASONE SOD INJ 4 MG/ML VIAL ONE (08:39)
[2018-07-08] MEDS ORDERED: ONDANSETRON INJ 2 MG/ML 2 ML VIAL ONE (08:39)
[2018-07-08] MEDS ORDERED: MIDAZOLAM HCL 1 MG/ML 2ML VIAL ONE (08:39)
[2018-07-08] MEDS ORDERED: LIDOCAINE HCL 2% 2 ML VIAL/AMP(20MG/ML) INFIL ONE (08:39)
[2018-07-08] MEDS ORDERED: PROPOFOL IV EMULSION 10 MG/ML 20 ML VIAL IV ONE (08:39)
[2018-07-08] MEDS ORDERED: fentaNYL citrate 100 MCG/2 ML VIAL ONE (08:40)
[2018-07-08] MEDS ORDERED: ROPIVACAINE 0.5% 5 MG/ML 30 ML VIAL ONE (10:07)
[2018-07-08] MEDS ORDERED: SODIUM CHLORIDE 0.9% INJ 10 ML VIAL ONE ×2 (10:08→10:59)
--- NOTE | 2018-07-08 10:15 | History & Physical Bridge Note ---
Date of Service July 08, 2018 History & Physical Bridge Note I have examined the patient, reviewed the History & Physical and in the interval since the performance of the History & Physical I have noted the following changes of clinical significance: no changes noted
[2018-07-08] MEDS ORDERED: ONDANSETRON INJ 2 MG/ML 2 ML VIAL IV PRN (10:49)
[2018-07-08] MEDS ORDERED: ATROPINE SULFATE 0.1 MG/ML 10ML SYR IV PRN (10:49)
[2018-07-08] MEDS ORDERED: LABETALOL HCL IV 5 MG/ML 20ML IV PRN (10:49)
[2018-07-08] MEDS ORDERED: HYDROmorphone INJ 1 MG/ML SYRINGE IV PRN (10:49)
--- NOTE | 2018-07-08 10:49 | Hospitalist Progress Note ---
Date of Service July 08, 2018 Assessment & Plan (1) Closed fracture of distal end of right fibula and tibia: This is a 63-year-old female with a PMH of DM II, HTN, HLD and CKD IV who presents with right ankle pain after a fall at home and was found to have a closed fracture of the distal end of R fibula and tibia with dislocation. -Initial R ankle XR with fracture/dislocation of the right ankle with complete disruption of the tibiotalar joint, markedly displaced angulated distal right fibular fracture and medial malleolar fracture. Distal medial tibial fracture site extends nearly to the skin. -Successful closed reduction performed in ED -Dr Acharya plans for OR today -Pain control, gentle fluids -Pre-op EKG, CXR ordered. No history of cardiopulmonary disease (2) Type 2 diabetes mellitus: -BSG checks AC HS, Add Lantus when PO (3) Chronic kidney disease (CKD), stage IV (severe): H/o diabetic nephropathy. Has followed with Dr. Kincaid in the past -Cr of 3 today (baseline Cr mid-high 2s) -Continue gentle fluids, hold lasix for now, Renal Eval -Monitor with daily BMP (4) Hypertension: No longer taking antihypertensives (formerly on Lisinopril, carvedilol) -BP controlled -Monitor, add PRN agent if indicated (5) Dyslipidemia: No longer taking Lipitor -Directed to follow up with PCP to discuss medication for HTN, HLD DVT Ppx: LLE SCD Code status: FULL PCP: Bruce Bronson Dispo: Admitted to med/surg. Discharge planning ordered. Subjective This is a 63-year-old female with a PMH of DM II, HTN, HLD and CKD IV who presents with right ankle pain after a fall at home. Patient was walking in her apartment when her shoe got caught in the carpet and she fell to the floor, twisting her right leg in the process. Noted immediate pain and deformity to her right ankle, so she came to the ED for further evaluation. Endorses 5/10 constant pain that is exacerbated by movement. Patient has history of diabetic neuropathy and has decreased sensation in lower extremities. Denies any head trauma or loss of consciousness from fall. Has history of CKD [address] Kincaid of nephrology in the past. Denies any history of MO , CHF or DVT/PE. Lives in an apartment by herself that has stairs. Denies any fever, chills, lightheadedness, headache, chest pain, palpitations, shortness of breath, nausea, vomiting, abdominal pain, dysuria, diarrhea or constipation. [id number] is at bedside. ROS-No Headache, No Visual Changes, No Nausea, No Vomiting, No Fever, No Chills , No Neck Pain or Stiffness, No Chest Pain, No Palpitations, No SOB, No PAYNE, No Cough, No Sputum, No Wheezing, No Abdominal Pain, No Diarrhea, No Hematemesis, No Hemoptysis, No Unexpected Weight Loss, No Flank pain, No Melena, No Hematochezia, No Frequency, No Urgency, No Burning, No Hematuria, No Rashes, No Diaphoresis. Appetite is Normal Physical Exam Gen-AAO x 3, NAD, Afebrile, Obese Head-NCAT, EOMI, PERRLA, Anicteric Sclera, No Posterior Pharyngeal Erythema Neck-Supple, No JVD, No Thyromegaly, No Masses, No LAD, No Bruits Lungs-Clear to Auscultation Bilaterally, No Rales, No Rhonchi, No Wheezing, No Crepitus Chest-No S4, +S1, +S2, No S3, No Murmurs, No Rubs, No Gallops, No Ectopy Abdomen-Soft, Bowel Sounds Present, Non Tender, Non Distended, No Hepatomegaly, No Splenomegaly, No Palpable Masses, No Rebound, No Rigidity, No Guarding Musculoskeletal-Full Range of Motion Bilaterally, No CVAT Extremities-LLE Casted and Wrapped, RLE No CCE Nuero-Cranial Nerves II-XII grossly intact, Motor WNL, DTRs WNL, Strength WNL, Non Focal Psych-Normal Mood Physical Exam 2 Vital Signs (Past 24 Hours): Last Vital Signs Temp 37.0 C 07/08/18 07:03 Pulse 65 07/08/18 07:03 Resp 20 07/08/18 07:03 BP 131/75 07/08/18 07:03 Pulse Ox 95 07/08/18 07:03 Results & Data Laboratory Results Current Diagnoses Anemia in chronic kidney disease (07/07/18) Type 2 diabetes mellitus without complications (07/07/18) Hyperlipidemia, unspecified (07/07/18) Other disorders of electrolyte and fluid balance, not elsewhere classified () Essential (primary) hypertension (07/07/18) Chronic kidney disease, stage 4 (severe) (07/07/18) Unspecified fracture of lower end of right tibia, initial encounter for closed fracture (07/07/18) Other fracture of upper and lower end of right fibula, initial encounter for closed fracture (07/07/18) Encounter for other preprocedural examination (07/07/18) Allergies No Known Allergies Allergy (Unknown, Unverified 07/07/18 10:06) Height/Weight/Isolation Height 5 ft 3 in Weight 87.2 kg Chemistry 07/07/18 07/08/18 08:00 05:23 Sodium 146 H 146 H Potassium 3.9 4.4 Chloride 114 H 117 H Carbon Dioxide 26 23 Anion Gap 6.0 6.0 BUN 89 H 82 H Creatinine 2.93 H 3.00 H Glucose 112 H 140 H _ (1) Closed fracture of distal end of right fibula and tibia Encounter type: Fracture healing: (2) Hypertension Hypertension type: essential hypertension Qualified Code(s): I10 - Essential (primary) hypertension
[2018-07-08] MEDS ORDERED: CEFAZOLIN 250 MG/ML 1 GM VIAL ONE (10:59)
[2018-07-08] MEDS ORDERED: ePHEDrine sulfate 50 MG/ML AMP ONE (10:59)
[2018-07-08] MEDS ORDERED: BACITRACIN INJ 50,000 UNIT VIAL ONE (11:08)
[2018-07-08] MEDS ORDERED: CEFAZOLIN 2000MG 2,000 MG/15 ML SYR IV SCH ×2 (11:15→12:30)
--- NOTE | 2018-07-08 12:18 | Fluoroscopy Report ---
FL ankle RT min 3V RTN CLINICAL HISTORY: Right ankle fracture. Internal fixation. COMPARISON STUDY: 07/07/2018 FLUOROSCOPY TIME: 50 seconds. NUMBER OF FLUOROSCOPIC IMAGES: 4 FINDINGS: 4 intraoperative fluoroscopic spot images reveal internal fixation of a distal fibular frac ture with a lateral metallic plate and multiple ribs. 2 transverse screws are anchored within the tib ia. In addition there are 2 cannulated screws fixating a medial malleolar fracture. The ankle mortise appears intact. IMPRESSION: Internally fixated fractures of the distal fibula and medial malleolus. Electronically signed by: Marco Nieto M.D. 07/08/2018 12:17 PM
--- NOTE | 2018-07-08 12:36 | Post Operative Brief Note ---
Immediate Post Op Note v1 Date of Surgery July 08, 2018 Pre & Post Diagnosis Operation Date: 07/08/18 09:30 Pre-Op Diagnosis: right ankle trimalleolar fracture dislocation, FALL WITH TIB/FIB FRACTURE, Post-Op Diagnosis: Right ankle trimalleolar fracture dislocation, deltoid ligament tear, syndesmosis rupture Procedure Operation Date: 07/08/18 09:30 Actual Procedures p Open Reduction Internal Fixation right ankle trimalleolar fracture dislocation , deltoid ligament repair, syndesmosis repair/ fixation (Right) - Artem Acharya DO Surgeon Artem Acharya DO [employer] Frederic Griffin PA-C Estimated Blood Loss 6 Findings Consistent with Post-Op Diagnosis Specimens None Anesthesia Type General Regional Complications none Disposition Accompanied Patient To Recovery: No Disposition: Recovery Room
--- NOTE | 2018-07-08 13:11 | Anesthesiology Progress Note ---
Date of Service July 08, 2018 Anesthesia Post Procedure Vital Signs Vital Signs: Temp Pulse Pulse Resp BP Pulse Ox 07/08/18 12:38 37.4 C 71 15 166/70 H 96 07/08/18 07:03 37.0 C 65 20 131/75 95 07/07/18 23:30 36.9 C 74 18 152/66 H 96 07/07/18 15:16 36.7 C 75 19 168/79 H 94 Pain Intensity Right Ankle: Pain Intensity: 0 Notes Mental Status: alert / awake / arousable Patient Amnestic to Procedure: Yes Nausea / Vomiting: adequately controlled Pain: adequately controlled Airway Patency, RR, SpO2: stable & adequate BP & HR: stable & adequate Hydration State: stable & adequate Anesthetic Complications: no major complications apparent
--- NOTE | 2018-07-08 13:27 | XRay Report ---
XR ankle RT min 3V routine CLINICAL HISTORY: Postop right ankle COMPARISON: 07/07/2018 DISCUSSION: There is an internally fixated distal fibular fracture with a lateral metallic plate and multiple transverse screws. 2 transverse screws traverse the tibia as well. In addition there are 2 c annulated screws fixating a medial malleolar fracture. The ankle mortise appears intact. There is a o verlying plaster cast. IMPRESSION: Internally fixated fracture the distal fibula and medial malleolus. Electronically signed by: Marco Nieto M.D. 07/08/2018 1:26 PM
[2018-07-08] MEDS: CEFAZOLIN 2000MG 2,000 MG/15 ML SYR IV SCH (18:37)
--- NOTE | 2018-07-08 20:00 | Consultation Report ---
DATE OF CONSULTATION: 07/08/2018 ORTHOPEDIC CONSULT NOTE CHIEF COMPLAINT: Right ankle pain. SUBJECTIVE: The patient is a 63-year-old female who suffered a fall at home yesterday when she tripped at her home. She had immediate pain and disability. She was brought to the ED for evaluation. X-rays revealed a right ankle fracture/dislocation. She had a reduction performed in the ED which showed acceptable position of the fracture. She was admitted to the hospital by the medical service and orthopedic consult was asked for. She states she lives alone. She uses a cane regularly secondary to neuropathy in her lower extremities from her diabetes. She does have 7 steps to go down to get into her apartment and then she lives on one floor. PAST MEDICAL HISTORY: Significant for type 2 diabetes, stage 4 chronic kidney disease, hypertension, hyperlipidemia. PHYSICAL EXAMINATION: GENERAL: On exam, she is lying in bed, states she is comfortable and looks like she is in no significant distress. EXTREMITIES: The right ankle is in a well-padded splint. Her toes are mobile, neurovascularly intact. She denies any other pain as a result of fall. X-RAYS: Her x-rays were reviewed and show a bimalleolar ankle fracture. Pre and post-reduction films were reviewed as well as her CAT scan. ASSESSMENT: Right ankle bimalleolar fracture. PLAN: The above discussed with the patient. Risks versus benefits were discussed. We talked about her postoperative recovery. She may need some type of rehab or nursing facility postoperatively as again she lives alone. She says she may be able to stay with a family member. She understands she will be in a splint and on a walker, nonweightbearing postoperatively for a period of time. I will discuss this further postoperatively. We will proceed as indicated here with the plan being to the OR later today.
[2018-07-08] MEDS ORDERED: INSULIN GLARGINE SOLOSTAR 100 UNITS/ML 3 ML PEN SQ STA (21:05)
--- NOTE | 2018-07-08 22:44 | Operative Report ---
DATE OF OPERATION: 07/08/2018 PREOPERATIVE DIAGNOSES: 1. Right ankle trimalleolar fracture dislocation. 2. Syndesmotic ligament disruption. POSTOPERATIVE DIAGNOSES: 1. Right ankle trimalleolar fracture dislocation. 2. Syndesmotic ligament disruption. 3. Deltoid ligament tear. PROCEDURE: 1. Open reduction internal fixation right trimalleolar ankle fracture dislocation 2. Syndesmotic fixation. 3. Deltoid ligament repair. SURGEON: rAtem Acharya DO. FOOD AND NUTRITION PROFESSOR: Frederic Griffin PA-C who was present for patient positioning, sterile prep and drape, management of retractors and instruments. He was present through the critical portions of the case including wound closure, application of sterile dressing and transport of the patient to recovery. ANESTHESIA: General regional. SPECIMENS: None. DRAINS: None. COMPLICATIONS: None. BLOOD LOSS: 6 mL Pertinent. PERTINENT HISTORY: This is a 63-year-old woman who sustained a trip and fall injuring her right ankle. She had obvious pain, swelling and deformity of the ankle. She was unable to ambulate, presented to [facility]. She was seen by the Emergency physician. We then did a conscious sedation and reduction of her right ankle, placed in a splint and then due to the nature and severity of the injury, the patient was then admitted to the hospital for optimization prior to surgical repair of her right ankle. The patient was placed on bed rest, ice, elevation was performed in the right ankle. The patient was then scheduled for surgery as indicated. All potential risks, benefits, complications, alternatives, rehab, potential for incomplete relief of symptoms, need for surgery, DVT, PE, , persistent pain, swelling, scarring, weakness, neurovascular injury, wound complications, hardware failure, nonunion, malunion, bone fracture were discussed with the patient. The patient decided to proceed with the procedure as indicated. DESCRIPTION OF PROCEDURE: The patient had a popliteal block in the preop holding area, then taken to the operative suite, placed supine on the operating table. After reviewing the consent and identification of proper operative site, the patient was anesthetized. LMA was placed. Tourniquet was placed high on the right thigh over cast padding. Right lower extremity was sterilely prepped and draped in the usual fashion, elevated, and exsanguinated with an Esmarch bandage, and tourniquet inflated to 325 mmHg. Next, a 15 blade scalpel was used to make an incision over the lateral malleolus extending proximally and the incision was deepened through subcutaneous tissue. Meticulous hemostasis was achieved with electrocautery. Full thickness skin flaps were developed. Sensory cutaneous nerves retracted and protected when possible. A large Weitlaner was placed in the incision. The fascia was then incised along the skin incision. The branch of the deep peroneal nerve was identified, freed, retracted, and protected and the peroneal tendons were also retracted and protected. Periosteum over the fracture was then incised and judiciously elevated from the fracture fragments maintaining connection to the fracture fragments as possible. There were several large butterfly fragments which were protected. The incision was then carried proximally and distal on the periosteum. Next, reduction was performed using multiple bone clamps after irrigation and debridement with a dental pick and saline. After the fracture fragments were then reassembled and clamped in place with multiple bone clamps, a single 3.5 mm lag screw was then used to stabilize the fracture going from anterior to posterior under live fluoroscopic assistance. A second lag screw was attempted; however, the bone fragments were too comminuted to accept another screw and then a Synthes locking periarticular lateral malleolar plate was then sized appropriately and a #9-hole plate was then provisionally fixed to the lateral malleolus using a nonlocking screw under live fluoroscopic assistance. Sizing was confirmed and then the fracture was then fixed with the multiple locking bone screws under live fluoroscopic assistance into near anatomic position and alignment. The syndesmosis was noted to be disrupted and unstable using stress views under live fluoroscopic assistance. Therefore, two 3.5 mm screws were placed across the syndesmosis from the fibula through the plate into the tibia under live fluoroscopic assistance with the foot held in neutral dorsiflexion. One screw was placed slightly more proximal than optimal due to the nature and extent of the comminution in the fibula fracture. Next, attention was then directed toward the medial malleolus and a 15 blade scalpel incision was made over the medial malleolus. Careful dissection was performed using Metzenbaum scissors and forceps. Electrocautery was used judiciously to cauterize any bleeding vessels. The periosteum was noted to be torn due to the fracture dislocation. This was sharply elevated from the fracture fragments. Fracture fragments then carefully irrigated and debrided with a dental pick and sterile normal saline. Next, the fracture fragment was then reduced into near anatomic alignment with bone forceps and two 4.0 cannulated screws were placed in live fluoroscopic assistance to stabilize and fixate the medial malleolus fracture. The deltoid ligament was noted to be torn. Superficial fibers were then repaired after irrigation with sterile normal saline with 2-0 Vicryl sutures. This reduced the ligament into anatomic position. The fracture site was then irrigated with sterile normal saline. The periosteum which was noted to be torn was then repaired using interrupted 2-0 Vicryl sutures. The medial dermis was then closed with buried interrupted 3-0 Vicryl. The guide pins were removed from the medial malleolus. The screws were maintained in anatomic position and alignment and the skin was then closed using 4-0 nylon. Next, the final radiographs were obtained, AP, lateral, and oblique views, noting anatomic reduction and fixation of the right ankle trimalleolar ankle fracture and the periosteum and deep soft tissue was then closed with 2-0 Vicryl on the lateral side followed by closure of the dermis with buried interrupted 3-0 Vicryl, skin was closed with 4-0 nylon. Next, a sterile compressive dressing and bulky Esdras Ricardo plaster splint was applied overwrapped with an Michael wrap. The foot was held in neutral dorsiflexion, the tourniquet was released and the patient was then awakened and taken to recovery in stable condition. I attest to the content of the Intraoperative Record and any orders documented therein. Any exception s are noted below.
--- NOTE | 2018-07-08 23:30 | Hospitalist Progress Note ---
Date of Service July 08, 2018 Subjective Made aware by RN of uncontrolled SBP the last 24 hours. SBP 160-180s Patient comfortable as per RN. As per patient, she stopped lisinopril home medication months ago without telling her PCP because medication was giving her diarrhea. Patient never started Coreg Rx prescribed by PCP outpatient. AP Hypertensive urgency Medication noncompliance Initiate Coreg Physical Exam 2 Vital Signs (Past 24 Hours): Last Vital Signs Temp 36.8 C 07/08/18 23:05 Pulse 77 07/08/18 23:05 Resp 16 07/08/18 23:05 BP 181/78 H 07/08/18 23:05 Pulse Ox 97 07/08/18 23:05
[2018-07-09] MEDS: CARVEDILOL 3.125 MG TAB PO SCH ×2 (00:47→08:56)
[2018-07-09] MEDS: CEFAZOLIN 2000MG 2,000 MG/15 ML SYR IV SCH ×2 (03:08→12:43)
[2018-07-09 05:56] LABS: Hemoglobin 7.8 g/dL (12.0-16.0); Mean Corpuscular Hgb Conc 31.2 g/dL (32-36); Mean Corpuscular Volume 92.3 fL (80-100); Mean Platelet Volume 9.4 fL (7.4-10.4); Platelet Count 226 K/uL (130-400); RDW Coefficient of Variation 13.3 % (11.5-14.5); RDW Standard Deviation 44.5 fL (36.4-46.3); Red Blood Count 2.71 M/uL (4.2-5.4); White Blood Count 12.03 K/uL (4.8-10.8)
[2018-07-09] MEDS ORDERED: CEFAZOLIN 2000MG 2,000 MG/15 ML SYR IV SCH (06:00)
[2018-07-09 06:31] LABS: BUN Creatinine Ratio 24.3 (10-20); Calcium 8.2 mg/dl (8.5-10.1); Creatinine Clr Calc Pharmacy 20.1 ml/min; Est GFR (African American) 18.4; Est GFR (Non-African American) 15.9; Potassium 4.8 mmol/L (3.5-5.1)
--- NOTE | 2018-07-09 08:26 | Anesthesiology Progress Note ---
Date of Service July 09, 2018 Anesthesia Post Procedure Vital Signs Vital Signs: Temp Pulse Pulse Resp BP BP Pulse Ox 07/09/18 06:47 36.7 C 72 18 160/75 H 95 07/09/18 03:05 36.8 C 79 16 175/83 H 95 07/09/18 00:45 158/80 H 07/08/18 23:05 36.8 C 77 16 181/78 H 97 07/08/18 16:32 36.5 C 70 18 138/75 94 07/08/18 15:52 36.5 C 76 17 156/78 H 93 07/08/18 14:41 36.4 C L 65 18 163/76 H 99 07/08/18 14:11 74 16 151/70 H 98 07/08/18 13:40 36.7 C 73 20 163/81 H 96 07/08/18 13:26 70 12 169/63 H 96 07/08/18 13:25 69 14 97 07/08/18 13:21 73 15 170/59 H 95 07/08/18 13:20 36.7 C 71 71 14 167/63 H 96 07/08/18 13:17 72 15 96 07/08/18 13:16 36.7 C 74 18 167/63 H 95 07/08/18 13:15 70 14 95 07/08/18 13:12 75 13 95 07/08/18 13:11 75 21 178/68 H 96 07/08/18 13:10 73 13 173/69 H 93 07/08/18 13:06 72 16 175/67 H 96 07/08/18 13:05 73 20 97 07/08/18 13:01 73 13 181/69 H 97 07/08/18 13:00 73 17 96 07/08/18 12:56 72 14 180/67 H 96 07/08/18 12:55 75 13 96 07/08/18 12:51 76 13 175/64 H 99 07/08/18 12:50 73 14 98 07/08/18 12:46 75 13 175/68 H 97 07/08/18 12:45 73 13 98 07/08/18 12:41 71 15 166/70 H 97 07/08/18 12:40 71 12 96 07/08/18 12:39 70 13 178/66 H 97 07/08/18 12:38 37.4 C 71 21 166/70 H 96 Pain Intensity Right Ankle: Pain Intensity: 0 Notes Mental Status: alert / awake / arousable and participated in evaluation Nausea / Vomiting: adequately controlled Pain: adequately controlled Airway Patency, RR, SpO2: stable & adequate BP & HR: stable & adequate Hydration State: stable & adequate Neuraxial Anesthesia: sensory block resolved and see Notes below (regional anesthetic resolved)
--- NOTE | 2018-07-09 08:35 | Orthopedic Progress Note ---
Date of Service July 09, 2018 Assessment & Plan (1) Closed fracture of distal end of right fibula and tibia: Postop day 1 that is post ORIF right ankle fracture. Patient will be nonweightbearing right lower extremity. Begin PT and OT protocols. Acute blood loss anemia -hemoglobin went from 10.4 on admission to 7.8 this morning. Patient currently feels asymptomatic and pulse is 72. Medicine service has been contacted about her hemoglobin. Transfuse as necessary. Subjective Patient is postop day 1 status post right ORIF ankle. Patient is awake and alert and oriented. She has no complaints at the present time. Pain is controlled. She denies shortness of breath, chest pain, lightheadedness. Physical Exam 2 Vital Signs (Past 24 Hours): Last Vital Signs Temp 36.7 C 07/09/18 06:47 Pulse 72 07/09/18 06:47 Resp 18 07/09/18 06:47 BP 160/75 H 07/09/18 06:47 Pulse Ox 95 07/09/18 06:47 Physical Exam: Splint is clean dry and intact. Toes are mobile. Cap refill is less than 2 seconds. Patient has decreased sensation in the toes and has a long history of neuropathy. Results & Data Laboratory Results 07/09/18 07/09/18 07/09/18 Range/Units 08:00 05:29 05:29 WBC (4.8-10.8) K/uL RBC (4.2-5.4) M/uL Hgb (12.0-16.0) g/dL Hct (37-47) % MCV (80-100) fL MCH (25-34) pg MCHC (32-36) g/dL RDW Std Deviation (36.4-46.3) fL RDW Coeff of Rico (11.5-14.5) % Plt Count (130-400) K/uL MPV (7.4-10.4) fL Sodium 143 (136-145) mmol/L Potassium 4.8 (3.5-5.1) mmol/L Chloride 112 H (98-107) mmol/L Carbon Dioxide 23 (21-32) mmol/L Anion Gap 8.0 (3-11) BUN 73 H (7-18) mg/dl Creatinine 3.00 H (0.6-1.2) mg/dl Est Cr Clr Drug Dosing 20.1 ml/min Est GFR ( Amer) 18.4 Est GFR (Non-Af Amer) 15.9 BUN/Creatinine Ratio 24.3 H (10-20) Glucose 248 H (70-99) mg/dl POC Glucose 268 H (70-99) Calcium 8.2 L (8.5-10.1) mg/dl Iron Pending Transferrin Pending Transferrin % Sat Pending 07/09/18 07/08/18 07/08/18 Range/Units 05:29 20:33 17:04 WBC 12.03 H (4.8-10.8) K/uL RBC 2.71 L (4.2-5.4) M/uL Hgb 7.8 L (12.0-16.0) g/dL Hct 25.0 L (37-47) % MCV 92.3 (80-100) fL MCH 28.8 (25-34) pg MCHC 31.2 L (32-36) g/dL RDW Std Deviation 44.5 (36.4-46.3) fL RDW Coeff of Rico 13.3 (11.5-14.5) % Plt Count 226 (130-400) K/uL MPV 9.4 (7.4-10.4) fL Sodium (136-145) mmol/L Potassium (3.5-5.1) mmol/L Chloride (98-107) mmol/L Carbon Dioxide (21-32) mmol/L Anion Gap (3-11) BUN (7-18) mg/dl Creatinine (0.6-1.2) mg/dl Est Cr Clr Drug Dosing ml/min Est GFR ( Amer) Est GFR (Non-Af Amer) BUN/Creatinine Ratio (10-20) Glucose (70-99) mg/dl POC Glucose 381 H* 310 H (70-99) Calcium (8.5-10.1) mg/dl Iron Transferrin Transferrin % Sat 07/08/18 07/08/18 Range/Units 13:48 13:07 WBC (4.8-10.8) K/uL RBC (4.2-5.4) M/uL Hgb (12.0-16.0) g/dL Hct (37-47) % MCV (80-100) fL MCH (25-34) pg MCHC (32-36) g/dL RDW Std Deviation (36.4-46.3) fL RDW Coeff of Rico (11.5-14.5) % Plt Count (130-400) K/uL MPV (7.4-10.4) fL Sodium (136-145) mmol/L Potassium (3.5-5.1) mmol/L Chloride (98-107) mmol/L Carbon Dioxide (21-32) mmol/L Anion Gap (3-11) BUN (7-18) mg/dl Creatinine (0.6-1.2) mg/dl Est Cr Clr Drug Dosing ml/min Est GFR ( Amer) Est GFR (Non-Af Amer) BUN/Creatinine Ratio (10-20) Glucose (70-99) mg/dl POC Glucose 212 H 210 H (70-99) Calcium (8.5-10.1) mg/dl Iron Transferrin Transferrin % Sat _ (1) Closed fracture of distal end of right fibula and tibia Encounter type: Fracture healing:
[2018-07-09 08:40] LABS: Iron 18 mcg/dl (35-150); Transferrin 186 mg/dl (200-360); Transferrin Percent Saturation 7 % (15-50)
[2018-07-09] MEDS: INSULIN ASPART 100 UNITS/ML 3 ML PEN SC SCH ×5 (08:58→20:49)
[2018-07-09] MEDS: ASPIRIN 81 MG ECTAB PO SCH (09:54)
--- NOTE | 2018-07-09 12:15 | Hospitalist Progress Note ---
Date of Service July 09, 2018 Assessment & Plan (1) Closed fracture of distal end of right fibula and tibia: (1) Closed fracture of distal end of right fibula and tibia: This is a 63-year-old female with a PMH of DM II, HTN, HLD and CKD IV who presents with right ankle pain after a fall at home and was found to have a closed fracture of the distal end of R fibula and tibia with dislocation. -Initial R ankle XR with fracture/dislocation of the right ankle with complete disruption of the tibiotalar joint, markedly displaced angulated distal right fibular fracture and medial malleolar fracture. Distal medial tibial fracture site extends nearly to the skin. -Successful closed reduction performed in ED -Dr Acharya took the patient to the OR on 07/08, see procedure below -Pain control, gentle fluids POSTOPERATIVE DIAGNOSES: 1. Right ankle trimalleolar fracture dislocation. 2. Syndesmotic ligament disruption. 3. Deltoid ligament tear. PROCEDURE: Done 07/08 Dr Acharya 1. Open reduction internal fixation right trimalleolar ankle fracture dislocation 2. Syndesmotic fixation. 3. Deltoid ligament repair. Resume Post Op Care per Surgery Protocol Incentive Spirometry 10x per Hour Resume Relative Home Meds Where Appropriate PT/OT with appropriate fall precautions Transition from IV to PO Pain control DVT Prophylaxis Per Surgery Protocol Monitor Daily Labs (2) Type 2 diabetes mellitus: -BSG checks AC HS, Add Lantus when PO, uncontrolled, adjust Insulin (3) Chronic kidney disease (CKD), stage IV (severe): H/o diabetic nephropathy. Has followed with Dr. Kincaid in the past Cr of 3 today (baseline Cr mid-high 2s) Restart Lasix, Stop fluids (4) Hypertension: No longer taking antihypertensives (formerly on Lisinopril, carvedilol) Defer to renal (5) Dyslipidemia: No longer taking Lipitor -Directed to follow up with PCP to discuss medication for HTN, HLD DVT Ppx: LLE SCD Code status: FULL PCP: Bruce Bronson Dispo: Admitted to med/surg. Discharge planning ordered. Subjective This is a 63-year-old female with a PMH of DM II, HTN, HLD and CKD IV who presents with right ankle pain after a fall at home. Patient was walking in her apartment when her shoe got caught in the carpet and she fell to the floor, twisting her right leg in the process. Noted immediate pain and deformity to her right ankle, so she came to the ED for further evaluation. Endorses 5/10 constant pain that is exacerbated by movement. Patient has history of diabetic neuropathy and has decreased sensation in lower extremities. Denies any head trauma or loss of consciousness from fall. Has history of CKD [address] Kincaid of nephrology in the past. Denies any history of ND , CHF or DVT/PE. Lives in an apartment by herself that has stairs. Denies any fever, chills, lightheadedness, headache, chest pain, palpitations, shortness of breath, nausea, vomiting, abdominal pain, dysuria, diarrhea or constipation. [id number] is at bedside. ROS-No Headache, No Visual Changes, No Nausea, No Vomiting, No Fever, No Chills , No Neck Pain or Stiffness, No Chest Pain, No Palpitations, No SOB, No PAYNE, No Cough, No Sputum, No Wheezing, No Abdominal Pain, No Diarrhea, No Hematemesis, No Hemoptysis, No Unexpected Weight Loss, No Flank pain, No Melena, No Hematochezia, No Frequency, No Urgency, No Burning, No Hematuria, No Rashes, No Diaphoresis. Appetite is Normal, c/o Pain RLE, bearable Physical Exam Gen-AAO x 3, NAD, Afebrile, Obese Head-NCAT, EOMI, PERRLA, Anicteric Sclera, No Posterior Pharyngeal Erythema Neck-Supple, No JVD, No Thyromegaly, No Masses, No LAD, No Bruits Lungs-Clear to Auscultation Bilaterally, No Rales, No Rhonchi, No Wheezing, No Crepitus Chest-No S4, +S1, +S2, No S3, No Murmurs, No Rubs, No Gallops, No Ectopy Abdomen-Soft, Bowel Sounds Present, Non Tender, Non Distended, No Hepatomegaly, No Splenomegaly, No Palpable Masses, No Rebound, No Rigidity, No Guarding Musculoskeletal-Full Range of Motion Bilaterally, No CVAT Extremities-LLE Casted and Wrapped, RLE No CCE Nuero-Cranial Nerves II-XII grossly intact, Motor WNL, DTRs WNL, Strength WNL, Non Focal Psych-Normal Mood Physical Exam 2 Vital Signs (Past 24 Hours): Last Vital Signs Temp 36.7 C 07/09/18 06:47 Pulse 72 07/09/18 06:47 Resp 18 07/09/18 06:47 BP 160/75 H 07/09/18 06:47 Pulse Ox 95 07/09/18 06:47 Results & Data Laboratory Results Current Diagnoses Anemia in chronic kidney disease (07/07/18) Type 2 diabetes mellitus without complications (07/07/18) Hyperlipidemia, unspecified (07/07/18) Other disorders of electrolyte and fluid balance, not elsewhere classified () Essential (primary) hypertension (07/07/18) Chronic kidney disease, stage 4 (severe) (07/07/18) Unspecified fracture of lower end of right tibia, initial encounter for closed fracture (07/07/18) Other fracture of upper and lower end of right fibula, initial encounter for closed fracture (07/07/18) Encounter for other preprocedural examination (07/07/18) Allergies No Known Allergies Allergy (Unknown, Unverified 07/07/18 10:06) Height/Weight/Isolation Height 5 ft 3 in Weight 87.2 kg Chemistry 07/08/18 07/09/18 05:23 05:29 Sodium 146 H 143 Potassium 4.4 4.8 Chloride 117 H 112 H Carbon Dioxide 23 23 Anion Gap 6.0 8.0 BUN 82 H 73 H Creatinine 3.00 H 3.00 H Glucose 140 H 248 H _ (1) Closed fracture of distal end of right fibula and tibia Encounter type: Fracture healing:
[2018-07-09] MEDS ORDERED: INSULIN ASPART 100 UNITS/ML 3 ML PEN SC SCH (12:25)
[2018-07-09] MEDS ORDERED: GLUCAGON FOR INJ 1 MG VIAL SQ PRN (12:27)
[2018-07-09] MEDS ORDERED: GLUCOSE 10 TABS/TUBE PO PRN (12:27)
[2018-07-09] MEDS ORDERED: GLUCOSE 40% GEL 15 GM TUBE PO PRN (12:27)
[2018-07-09] MEDS ORDERED: CARBOHYDRATES FOR HYPOGLYCEMIA PO PRN (12:27)
[2018-07-09] MEDS ORDERED: DEXTROSE 50% 50 ML SYRINGE IV PRN (12:27)
[2018-07-09] MEDS ORDERED: AMLODIPINE BESYLATE 5 MG TAB PO ONE (12:35)
[2018-07-09 13:01] LABS: Hematocrit (blood only) 25.7 % (37-47); Hemoglobin 8.3 g/dL (12.0-16.0)
[2018-07-09] MEDS ORDERED: PHARMACY GLYCEMIC MGMT CONSULT PRN (13:03)
[2018-07-09] MEDS ORDERED: INSULIN GLARGINE SOLOSTAR 100 UNITS/ML 3 ML PEN SC STA (13:19)
[2018-07-09] MEDS ORDERED: INSULIN HUMAN REGULAR PER UNIT 5 UNITS in SYRINGE 4.95 ML IV SCH (13:30)
--- NOTE | 2018-07-09 15:22 | Pharmacy Report ---
Glycemic Control Consultation - Date of Service July 09, 2018 - Scope Scope: Glycemic Pharmacist consulted by Dr Tineo on 07/09/18 for glycemic control and to write orders per [facility] inpatient glycemic control protocol - Objective Weight: 87.2 kg Accuchecks BSG (last 24hrs): 07/08/18 07/08/18 07/09/18 17:04 20:33 05:29 Glucose 248 H POC Glucose 310 H 381 H* 07/09/18 07/09/18 08:00 11:57 Glucose POC Glucose 268 H 326 H Laboratory Data (last 24hrs): 07/09/18 05:29 Potassium 4.8 Carbon Dioxide 23 Anion Gap 8.0 Creatinine 3.00 H Est Cr Clr Drug Dosing 20.1 - Recent Pertinent Medications Outpatient Anti-diabetic Regimen: * Lantus 30 units qAM The patient is currently receiving: * Basal insulin: Lantus 35 units x 1 given last night * Correctional Insulin: Novolog Correction per scale ACHS Goal Range: Low 120 mg/dL - High 160 mg/dL Correction Factor: 25 mg/dL/unit * Prandial insulin: Per carb ratio of 1 unit per 9 grams CHO consumed Risk Factors for Insulin Resistance: * Steroids: Dexamethasone (unknown dose) given x 1 pre/intra-op * Infection: Ancef 2g IV q8 x 24 hours post-op * Recent Surgery: s/p R ankle repair on 07/08/18 * Diet: T2DM - Assessment & Plan Assessment & Plan: ASSESSMENT: * Patient is POD #1 for ankle repair. Sustained hyperglycemia likely secondary to dexamethasone IV (unknown dose) x 1 in the OR. Furthermore, patient was without any basal insulin (possibly for more than 24 hours) during that time. * BG ranged 21-381 past 24 hours; consistently >200 mg/dL. She received 63 units of insulin yesterday. * Lantus was restarted last night with 35 units given x 1. Will give another dose of Lantus this AM and tighten Novolog. PLAN FOR INPATIENT GLYCEMIC CONTROL: * Holding outpatient oral diabetes medications * IV insulin 5 units x 1 given at ~1330 due to persistently elevated BG >250 mg/ dL since yesterday afternoon * Basal insulin * Lantus 30 units SC x 1 *stat* * Lantus per scale x 1 tonight at HS: * 15 units if BG 160 mg/dL or lower * 20 units if BG 161 mg/dL or higher * Bolus insulin - tighten * NovoLog per scale ACHS or Q6hrs while NPO * Goal Range: Low 110 mg/dL - High 140 mg/dL * Correction Factor: 15 mg/dL/unit * Nutritional / Prandial insulin per carb ratio of 1 unit per 7 grams CHO consumed * HbA1c ordered with AM labs 07/10/18 * Please note that the plan above was derived based on current level of insulin resistance and hospital stress. These recommendations are appropriate for inpatient admission only. Plan of care upon discharge will need to be reassessed to avoid potential outpatient hypo/hyperglycemia. Thank you.
[2018-07-09] MEDS ORDERED: HydrALAZINE 10 MG TAB PO PRN (19:26)
--- NOTE | 2018-07-09 19:27 | Nephrology Progress Note ---
Date of Service July 09, 2018 Assessment & Plan (1) Chronic kidney disease (CKD), stage IV (severe): her baseline creatinine over past 14 mos is 2.6-3.0, so would consider her at baseline currently, and on verge of CKD 5 though no immediate need for dialysis. hx of nephrotic range proteinuria from longstanding dm, htn. s/p R ankle ORIF 07/08 -avoid nsaids, iv contrast, extremes or swings in blood pressure (high or low) -ensure daily bmp -agree w/ holding lasix for now, at least for one more day (2) Hypertension: higher through the day today >> on amlodipine 5 mg bid; on very low dose coreg >increase coreg to 6.25 mg bid -cont CCB -cont to hold lasix for now -added prn po hydralazine 10 mg q6h for SBP >160 (3) Disorder of fluid or electrolyte: hyperchloremia w/ hypernatremia corrected; potassium acceptable; no suspicion for acidemia currently -daily bmp -no intervention at this time (4) Anemia in chronic kidney disease: her iron stores are low >> will tomorrow consider IV iron assuming still no concern for infection -as OP would discuss anemia clinic and ensure PCP pursuing age appropriate CA screening -as IP, primary service to transfuse for anemia sx or for hgb less than 7 per routine Subjective pt had uneventful ORIF yesterday; pain controlled at surg site; no n/v; denies voiding c/o; no edema or chest pain; no rash; no sob or cough; no bleeding; no focal numbness/weakness; ate full breakfast and no f/c; no abd pain; no anxiety/ depression Physical Exam 2 Vital Signs (Past 24 Hours): Last Vital Signs Temp 36.7 C 07/09/18 15:01 Pulse 78 07/09/18 15:01 Resp 16 07/09/18 15:01 BP 156/78 H 07/09/18 15:01 Pulse Ox 96 07/09/18 15:01 Constitutional: well developed and well nourished on RA A&0x 3 Eyes: EOM intact bilaterally ENMT: Ears: no external ear abnormality Nose: no external nose abnormality Mouth: + dry oral mucous membranes Neck: no nuchal rigidity Respiratory: normal respiratory effort Auscultation: + diminished lung sounds Cardiovascular: RRR, no murmur, no edema Gastrointestinal (Abdomen): Inspection/Auscultation: normal bowel sounds Percussion/Palpation: abdomen soft; abdomen nontender Musculoskeletal: Extremities: strength 5/5 throughout R ankle bandaged/ immobilized Skin: no rashes, warm and dry Neurologic: ross, fluent speech Psychiatric: A+Ox3, euthymic affect Speech: normal rate/rhythm/volume of speech Results & Data Laboratory Results Abnormal lab results 07/08/18 07/09/18 07/09/18 Range/Units 20:33 05:29 05:29 WBC 12.03 H (4.8-10.8) K/uL RBC 2.71 L (4.2-5.4) M/uL Hgb 7.8 L (12.0-16.0) g/dL Hct 25.0 L (37-47) % MCHC 31.2 L (32-36) g/dL Chloride 112 H (98-107) mmol/L BUN 73 H (7-18) mg/dl Creatinine 3.00 H (0.6-1.2) mg/dl BUN/Creatinine Ratio 24.3 H (10-20) Glucose 248 H (70-99) mg/dl POC Glucose 381 H* (70-99) Calcium 8.2 L (8.5-10.1) mg/dl Iron (35-150) mcg/dl Transferrin (200-360) mg/dl Transferrin % Sat (15-50) % 07/09/18 07/09/18 07/09/18 Range/Units 05:29 08:00 11:57 WBC (4.8-10.8) K/uL RBC (4.2-5.4) M/uL Hgb (12.0-16.0) g/dL Hct (37-47) % MCHC (32-36) g/dL Chloride (98-107) mmol/L BUN (7-18) mg/dl Creatinine (0.6-1.2) mg/dl BUN/Creatinine Ratio (10-20) Glucose (70-99) mg/dl POC Glucose 268 H 326 H (70-99) Calcium (8.5-10.1) mg/dl Iron 18 L (35-150) mcg/dl Transferrin 186 L (200-360) mg/dl Transferrin % Sat 7 L (15-50) % 07/09/18 07/09/18 Range/Units 12:52 17:07 WBC (4.8-10.8) K/uL RBC (4.2-5.4) M/uL Hgb 8.3 L (12.0-16.0) g/dL Hct 25.7 L (37-47) % MCHC (32-36) g/dL Chloride (98-107) mmol/L BUN (7-18) mg/dl Creatinine (0.6-1.2) mg/dl BUN/Creatinine Ratio (10-20) Glucose (70-99) mg/dl POC Glucose 212 H (70-99) Calcium (8.5-10.1) mg/dl Iron (35-150) mcg/dl Transferrin (200-360) mg/dl Transferrin % Sat (15-50) % _ (1) Hypertension Hypertension type: essential hypertension Qualified Code(s): I10 - Essential (primary) hypertension (2) Anemia in chronic kidney disease Chronic kidney disease stage: stage 4 (severe) Qualified Code(s): N18.4 - Chronic kidney disease, stage 4 (severe); D63.1 - Anemia in chronic kidney disease
[2018-07-09] MEDS: AMLODIPINE BESYLATE 5 MG TAB PO SCH (20:41)
[2018-07-09] MEDS: DORZOLAMIDE/TIMOLOL 22.3/6.8MG/ML 10 ML BTL OPB SCH (20:46)
[2018-07-09] MEDS: FUROSEMIDE 40 MG TAB PO SCH (20:47)
[2018-07-09] MEDS: CARVEDILOL 6.25 MG TAB PO SCH (20:53)
[2018-07-09] MEDS: ACETAMINOPHEN 500 MG TAB PO PRN (20:58)
[2018-07-09] MEDS ORDERED: INSULIN GLARGINE SOLOSTAR 100 UNITS/ML 3 ML PEN SC ONE (21:00)
[2018-07-09] MEDS ORDERED: INSULIN GLARGINE SOLOSTAR 100 UNITS/ML 3 ML PEN SQ SCH (21:00)
[2018-07-10] MEDS: INSULIN ASPART 100 UNITS/ML 3 ML PEN SC SCH ×6 (00:15→20:48)
[2018-07-10 00:24] LABS: Hematocrit (blood only) 22.2 % (37-47); Hemoglobin 7.2 g/dL (12.0-16.0)
[2018-07-10 05:59] LABS: Hematocrit (blood only) 22.6 % (37-47); Hemoglobin 7.1 g/dL (12.0-16.0); Mean Corpuscular Hgb Conc 31.4 g/dL (32-36); Mean Corpuscular Volume 91.9 fL (80-100); Mean Platelet Volume 9.5 fL (7.4-10.4); Platelet Count 221 K/uL (130-400); RDW Coefficient of Variation 13.7 % (11.5-14.5); RDW Standard Deviation 45.9 fL (36.4-46.3); Red Blood Count 2.46 M/uL (4.2-5.4); White Blood Count 11.02 K/uL (4.8-10.8)
[2018-07-10 06:40] LABS: BUN Creatinine Ratio 24.5 (10-20); Calcium 7.8 mg/dl (8.5-10.1); Creatinine Clr Calc Pharmacy 18.3 ml/min; Est GFR (African American) 16.4; Est GFR (Non-African American) 14.1; Potassium 4.4 mmol/L (3.5-5.1)
[2018-07-10 06:55] LABS: Estimated Average Glucose 217 mg/dl
[2018-07-10] MEDS: FUROSEMIDE 40 MG TAB PO SCH ×2 (08:53→16:51)
[2018-07-10] MEDS: DORZOLAMIDE/TIMOLOL 22.3/6.8MG/ML 10 ML BTL OPB SCH ×2 (08:53→20:35)
[2018-07-10] MEDS: ASPIRIN 81 MG ECTAB PO SCH (08:53)
[2018-07-10] MEDS: AMLODIPINE BESYLATE 5 MG TAB PO SCH ×2 (08:54→20:35)
[2018-07-10] MEDS: CHOLECALCIFEROL 1,000 UNITS TAB PO SCH (08:54)
[2018-07-10] MEDS ORDERED: LANTUS PER UNIT CHARGE SQ SCH (09:00)
[2018-07-10] MEDS ORDERED: NON-FORMULARY MEDICATION (Coenzyme Q10 [Coq-10] 100 MG) PO SCH (09:00)
[2018-07-10] MEDS: CARVEDILOL 6.25 MG TAB PO SCH ×2 (09:03→20:34)
--- NOTE | 2018-07-10 09:44 | Nephrology Progress Note ---
Date of Service July 10, 2018 Assessment & Plan (1) Acute on chronic renal insufficiency: her baseline creatinine over past 14 mos is 2.6-3.0, so has w/ today's labs crossed over to [facility], and on verge of CKD 5 though no immediate need for dialysis. hx of nephrotic range proteinuria from longstanding dm, htn. s/p R ankle ORIF 07/08 -avoid nsaids, iv contrast, extremes or swings in blood pressure (high or low) -ensure daily bmp -bp has been better controlled w/ recent med changes including reintroducing diuretic started last evening -pt for d/c today to snf >> recommend repeat bmp, hgb on 07/12 and close renal f/ u w/ my group or w/ [facility] >> asked nursing to clarify w/ pt which renal group she wishes to see >> states she wishes to continue to follow w/ me and we will arrange Present on Admission?: No (2) Hypertension: higher BP from yesterday now controlled w/ CCB 5 mg bid and increased BB and reintroduced lasix >cont above meds current doses -cont pain control -added prn po hydralazine 10 mg q6h for SBP >160 Present on Admission?: Yes (3) Disorder of fluid or electrolyte: hyperchloremia persists; hypernatremia resolved; potassium acceptable; mild acidosis < latter should improve w/ lasix -daily bmp -no intervention at this time Present on Admission?: Yes (4) Anemia in chronic kidney disease: her iron stores are low >>>will start venofer load today -as OP would discuss anemia clinic and ensure PCP pursuing age appropriate CA screening -as IP, primary service to transfuse for anemia sx or for hgb less than 7 per routine Present on Admission?: Yes Subjective seen on rounds this am at 0900. feeling well > pain controlled, no sob, no n/v ; denies voiding concerns or swelling; no rash Physical Exam 2 Vital Signs (Past 24 Hours): Last Vital Signs Temp 36.8 C 07/10/18 07:34 Pulse 69 07/10/18 07:34 Resp 16 07/10/18 07:34 BP 122/70 07/10/18 07:34 Pulse Ox 96 07/10/18 07:34 Constitutional: well developed and well nourished on RA, A&0 x 3 Eyes: EOM intact bilaterally ENMT: Ears: no external ear abnormality Nose: no external nose abnormality Mouth: + dry oral mucous membranes Neck: no nuchal rigidity Respiratory: normal respiratory effort Auscultation: + diminished lung sounds Cardiovascular: RRR, no murmur, no edema Gastrointestinal (Abdomen): Inspection/Auscultation: normal bowel sounds Percussion/Palpation: abdomen soft; abdomen nontender Musculoskeletal: Extremities: strength 5/5 throughout R foot wrapped Skin: no rashes, warm and dry Neurologic: ross, fluent speech Psychiatric: A+Ox3, euthymic affect Speech: normal rate/rhythm/volume of speech Results & Data Laboratory Results Abnormal lab results 07/09/18 07/09/18 07/09/18 Range/Units 11:57 12:52 17:07 WBC (4.8-10.8) K/uL RBC (4.2-5.4) M/uL Hgb 8.3 L (12.0-16.0) g/dL Hct 25.7 L (37-47) % MCHC (32-36) g/dL Chloride (98-107) mmol/L BUN (7-18) mg/dl Creatinine (0.6-1.2) mg/dl BUN/Creatinine Ratio (10-20) POC Glucose 326 H 212 H (70-99) Hemoglobin A1c (4.5-5.6) % Calcium (8.5-10.1) mg/dl 07/09/18 07/09/18 07/10/18 Range/Units 20:37 23:57 00:13 WBC (4.8-10.8) K/uL RBC (4.2-5.4) M/uL Hgb 7.2 L (12.0-16.0) g/dL Hct 22.2 L (37-47) % MCHC (32-36) g/dL Chloride (98-107) mmol/L BUN (7-18) mg/dl Creatinine (0.6-1.2) mg/dl BUN/Creatinine Ratio (10-20) POC Glucose 223 H 115 H (70-99) Hemoglobin A1c (4.5-5.6) % Calcium (8.5-10.1) mg/dl 07/10/18 07/10/18 07/10/18 Range/Units 05:30 05:30 05:30 WBC 11.02 H (4.8-10.8) K/uL RBC 2.46 L (4.2-5.4) M/uL Hgb 7.1 L (12.0-16.0) g/dL Hct 22.6 L (37-47) % MCHC 31.4 L (32-36) g/dL Chloride 113 H (98-107) mmol/L BUN 81 H (7-18) mg/dl Creatinine 3.30 H D (0.6-1.2) mg/dl BUN/Creatinine Ratio 24.5 H (10-20) POC Glucose (70-99) Hemoglobin A1c 9.2 H (4.5-5.6) % Calcium 7.8 L (8.5-10.1) mg/dl _ (1) Anemia in chronic kidney disease Chronic kidney disease stage: stage 4 (severe) Qualified Code(s): N18.4 - Chronic kidney disease, stage 4 (severe); D63.1 - Anemia in chronic kidney disease (2) Hypertension Hypertension type: essential hypertension Qualified Code(s): I10 - Essential (primary) hypertension
[2018-07-10] MEDS ORDERED: IRON SUCROSE (VENOFER) 100 MG/5 ML VIAL IV SCH (09:45)
[2018-07-10] MEDS: IRON SUCROSE 300 MG in SODIUM CHLORIDE 0.9% 250 ML IV SCH (10:18)
--- NOTE | 2018-07-10 11:13 | Discharge Summary ---
Date of Service July 10, 2018 Admission HPI Per Admitting Provider This is a 63-year-old female with a PMH of DM II, HTN, HLD and CKD IV who presents with right ankle pain after a fall at home. Patient was walking in her apartment when her shoe got caught in the carpet and she fell to the floor, twisting her right leg in the process. Noted immediate pain and deformity to her right ankle, so she came to the ED for further evaluation. Endorses 5/10 constant pain that is exacerbated by movement. Patient has history of diabetic neuropathy and has decreased sensation in lower extremities. Denies any head trauma or loss of consciousness from fall. Has history of CKD [address] Kincaid of nephrology in the past. Denies any history of [place] , CHF or DVT/PE. Lives in an apartment by herself that has stairs. Denies any fever, chills, lightheadedness, headache, chest pain, palpitations, shortness of breath, nausea, vomiting, abdominal pain, dysuria, diarrhea or constipation. [id number] is at bedside. Admission Exam Per Admitting Provider General Appearance: WD/WN, no apparent distress, resting comfortably Head: normocephalic, atraumatic Eyes: normal inspection, PERRL, EOMI ENT: hearing grossly normal, pharynx normal (dry mucous membranes) Neck: supple, no JVD, no adenopathy Respiratory/Chest: lungs clear to auscultation. No wheezes, rales or rhonci. No respiratory distress or accessory muscle use Cardiovascular: regular rate, rhythm, no murmur, normal peripheral pulses Abdomen/GI: normal bowel sounds, soft, non-tender to palpation Extremities/Musculoskelatal: R leg with wrap in place from foot up to knee. Normal inspection of left lower extremity, no calf tenderness, normal capillary refill, no pedal edema. Neurologic/Psych: alert, normal mood/affect, oriented x 3 Skin: normal color, warm/dry Principal Diagnosis Closed fracture of distal end of right tibia and fibula Anemia of chronic disease Obesity with BMI of 34 Tib-fib fracture CKD 4 Diabetes type 2 Diabetic neuropathy Hypertension Dyslipidemia Depression Discharge Exam ROS-No Headache, No Visual Changes, No Nausea, No Vomiting, No Fever, No Chills , No Neck Pain or Stiffness, No Chest Pain, No Palpitations, No SOB, No PAYNE, No Cough, No Sputum, No Wheezing, No Abdominal Pain, No Diarrhea, No Hematemesis, No Hemoptysis, No Unexpected Weight Loss, No Flank pain, No Melena, No Hematochezia, No Frequency, No Urgency, No Burning, No Hematuria, No Rashes, No Diaphoresis. Appetite is Normal, c/o Pain RLE, bearable Physical Exam Gen-AAO x 3, NAD, Afebrile, Obese Head-NCAT, EOMI, PERRLA, Anicteric Sclera, No Posterior Pharyngeal Erythema Neck-Supple, No JVD, No Thyromegaly, No Masses, No LAD, No Bruits Lungs-Clear to Auscultation Bilaterally, No Rales, No Rhonchi, No Wheezing, No Crepitus Chest-No S4, +S1, +S2, No S3, No Murmurs, No Rubs, No Gallops, No Ectopy Abdomen-Soft, Bowel Sounds Present, Non Tender, Non Distended, No Hepatomegaly, No Splenomegaly, No Palpable Masses, No Rebound, No Rigidity, No Guarding Musculoskeletal-Full Range of Motion Bilaterally, No CVAT Extremities-LLE Casted and Wrapped, RLE No CCE Nuero-Cranial Nerves II-XII grossly intact, Motor WNL, DTRs WNL, Strength WNL, Non Focal Psych-Normal Mood Discharge Data Allergies Allergy/AdvReac Type Severity Reaction Status Date / Time No Known Allergies Allergy Unknown Unverified 07/07/18 10:06 Consultations 07/07/18 10:06 ED Decision to Admit Stat 07/07/18 12:28 Consult Case Management - Discharge Planning Routine Consult Orthopedic Surgery Routine 07/08/18 07:11 Consult Nephrology Routine 07/09/18 12:47 Consult Case Management - Discharge Planning Routine Procedures Performed Operation Date: 07/08/18 09:30 Actual Procedures p Open Reduction Internal Fixation Ankle, deltoid ligament repair, synovitic fixation (Right) - Artem Acharya DO Ordered Studies 07/07/18 09:33 CT ankle RT wo con Stat 07/08/18 10:00 FL ankle RT min 3V RTN Routine FL fluoroscopy <1hr Routine 07/08/18 10:17 US - OR guided needle placemen Routine Current Diagnoses Anemia in chronic kidney disease (07/07/18) Type 2 diabetes mellitus without complications (07/07/18) Hyperlipidemia, unspecified (07/07/18) Other disorders of electrolyte and fluid balance, not elsewhere classified () Essential (primary) hypertension (07/07/18) Chronic kidney disease, stage 4 (severe) (07/07/18) Unspecified fracture of lower end of right tibia, initial encounter for closed fracture (07/07/18) Other fracture of upper and lower end of right fibula, initial encounter for closed fracture (07/07/18) Encounter for other preprocedural examination (07/07/18) Allergies No Known Allergies Allergy (Unknown, Unverified 07/07/18 10:06) Height/Weight/Isolation Height 5 ft 3 in Weight 87.2 kg Chemistry 07/09/18 07/10/18 05:29 05:30 Sodium 143 141 Potassium 4.8 4.4 Chloride 112 H 113 H Carbon Dioxide 23 21 Anion Gap 8.0 7.0 BUN 73 H 81 H Creatinine 3.00 H 3.30 H D Glucose 248 H 81 Hospital Course (1) Closed fracture of distal end of right fibula and tibia: (1) Closed fracture of distal end of right fibula and tibia: This is a 63-year-old female with a PMH of DM II, HTN, HLD and CKD IV who presents with right ankle pain after a fall at home and was found to have a closed fracture of the distal end of R fibula and tibia with dislocation. -Initial R ankle XR with fracture/dislocation of the right ankle with complete disruption of the tibiotalar joint, markedly displaced angulated distal right fibular fracture and medial malleolar fracture. Distal medial tibial fracture site extends nearly to the skin. -Successful closed reduction performed in ED -Dr Acharya took the patient to the OR on 07/08, see procedure below -Pain control, gentle fluids POSTOPERATIVE DIAGNOSES: 1. Right ankle trimalleolar fracture dislocation. 2. Syndesmotic ligament disruption. 3. Deltoid ligament tear. PROCEDURE: Done 07/08 Dr Acharya 1. Open reduction internal fixation right trimalleolar ankle fracture dislocation 2. Syndesmotic fixation. 3. Deltoid ligament repair. Resume Post Op Care per Surgery Protocol Incentive Spirometry 10x per Hour Resume Relative Home Meds Where Appropriate PT/OT with appropriate fall precautions Transition from IV to PO Pain control DVT Prophylaxis Per Surgery Protocol Monitor Daily Labs (2) Type 2 diabetes mellitus: controlled now (3) Chronic kidney disease (CKD), stage IV (severe): H/o diabetic nephropathy. Has followed with Dr. Kincaid in the past Cr of 3 today (baseline Cr mid-high 2s) On Lasix (4) Hypertension: BP Meds adjusted (5) Dyslipidemia: No longer taking Lipitor -Directed to follow up with PCP to discuss medication for HTN, HLD DVT Ppx: LLE SCD Code status: FULL PCP: Bruce Bronson Dispo: Admitted to med/surg. Discharge to SNF. Total Time Total Time Spent Total Time Spent (In Minutes): 40 mins Total Time Includes: Examination of the Patient, Discharge Planning, Medication Reconciliation and 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 With Other Providers Discharge Plan Discharge Items Patient Disposition: Transfer [facility] Reason For Visit: FALL WITH TIB/FIB FRACTURE Discharge Diagnosis: Closed fracture of distal end of right tibia and fibula Anemia of chronic disease Obesity with BMI of 34 Tib-fib fracture CKD 4 Diabetes type 2 Diabetic neuropathy Hypertension Dyslipidemia Depression Condition: Good Discharge Goals: Improve function Activity: As commented below Activity Comment: Nonweightbearing right lower extremity until cleared by Ortho Lifting: None Bathing: No limitations and Keep incision dry Sexual Activity: Wait until after follow-up appointment Exercise/Sports: None Driving/Machine Use Comment: Not until cleared by orthopedics Weightbearing: Left weightbearing and Right non-weightbearing Non-emergency contact: Primary Care Provider and Surgeon Call non-emergency contact if: you have any medication questions, your symptoms worsen and your pain is worsening Follow-up/Referrals: Ariana Kincaid MD, PhD [Physician] - (2-3 weeks) Artem Acharya DO [Surgeon] - (As directed by Dr. Acharya the orthopedic surgeon) Melissa Bronson DO [Primary Care Provider] - (make an appointment when you are finished with SNF) Diet: Carb Consistent or DM2 and Heart Healthy Addtl Provider Instructions: Postop care Prescriptions: New carvedilol 6.25 mg Tablet 6.25 mg PO BID Qty: 30 RF: 0 amlodipine [Norvasc] 5 mg Tablet 5 mg PO DAILY Qty: 30 RF: 0 aspirin [Ecotrin Low Strength] 81 mg Tablet,Delayed Release (Dr/Ec) 81 mg PO BID Qty: 60 RF: 0 dorzolamide-timolol 22.3-6.8 mg/mL Drops 1 drp OPB BID Qty: 10 RF: 0 acetaminophen [Tylenol Extra Strength] 500 mg tablet 500 mg PO Q4H PRN (Reason: fever or pain) Qty: 90 RF: 0 oxycodone 5 mg tablet 5 mg PO Q4H PRN (Reason: pain) Qty: 20 RF: 0 Continue furosemide 40 mg tablet 40 mg PO BID RF: 0 insulin glargine [Lantus U-100 Insulin] 100 unit/mL solution 30 units subcut QAM RF: 0 coenzyme Q10 [CoQ-10] 100 mg Capsule 100 mg PO DAILY RF: 0 cholecalciferol (vitamin D3) [Vitamin D3] 2,000 unit Capsule 4,000 unit PO DAILY RF: 0 Discontinued aspirin 81 mg tablet,delayed release (DR/EC) 81 mg PO DAILY RF: 0 Stand-Alone Forms: [facility] Discharge Orders: Discharge Order (Routine); Ordered 07/10/18 Ordered By: Tyler Tineo Skilled Items Patient informed of condition?: Yes DNR: No Discharge Level of Care: Skilled Communicable Disease: No Discharge Prognosis: Improving Admission Data Admit Date/Time: 07/07/18 11:13 Attending Provider: Tyler Tineo Admit Provider: Tyler Tineo Primary Care Provider: Melissa Bronson Other Providers: Tyler Tineo ; Artem Acharya Stacy L Service: Medical
--- NOTE | 2018-07-10 12:44 | Orthopedic Progress Note ---
Date of Service July 10, 2018 Assessment & Plan (1) Closed fracture of distal end of right fibula and tibia: Postop day 2 s/p ORIF right ankle fracture. Patient will be nonweightbearing right lower extremity. Begin PT and OT protocols. patient stable for transfer from ortho standpoint, fu in the office in 10-[address] cazares. Subjective Patient is postop day 2 status post right ORIF ankle. Patient is awake and alert and oriented. She has no complaints at the present time. Pain is controlled. She denies shortness of breath, chest pain, lightheadedness. Physical Exam 2 Vital Signs (Past 24 Hours): Last Vital Signs Temp 36.7 C 07/10/18 12:31 Pulse 69 07/10/18 12:31 Resp 16 07/10/18 12:31 BP 130/73 07/10/18 12:31 Pulse Ox 92 07/10/18 12:31 Musculoskeletal: Right lower extremity: Splint is clean dry and intact. Toes are mobile. Cap refill is less than 2 seconds. Patient has decreased sensation in the toes and has a long history of neuropathy. proximal part of calf is soft and non tender Results & Data Laboratory Results Laboratory Results WBC 11.02 K/uL (4.8-10.8) H 07/10/18 05:30 RBC 2.46 M/uL (4.2-5.4) L 07/10/18 05:30 Hgb 7.1 g/dL (12.0-16.0) L 07/10/18 05:30 Hct 22.6 % (37-47) L 07/10/18 05:30 MCV 91.9 fL (80-100) 07/10/18 05:30 MCH 28.9 pg (25-34) 07/10/18 05:30 MCHC 31.4 g/dL (32-36) L 07/10/18 05:30 RDW Std Deviation 45.9 fL (36.4-46.3) 07/10/18 05:30 RDW Coeff of Rico 13.7 % (11.5-14.5) 07/10/18 05:30 Plt Count 221 K/uL (130-400) 07/10/18 05:30 MPV 9.5 fL (7.4-10.4) 07/10/18 05:30 Immature Gran % (Auto) 0.4 % 07/07/18 08:00 Neut % (Auto) 57.3 % 07/07/18 08:00 Lymph % (Auto) 32.4 % 07/07/18 08:00 Norman % (Auto) 5.4 % 07/07/18 08:00 Eos % (Auto) 4.1 % 07/07/18 08:00 Baso % (Auto) 0.4 % 07/07/18 08:00 Immature Gran # (Auto) 0.03 K/uL (0.00-0.02) H 07/07/18 08:00 Neut # (Auto) 3.96 K/uL (1.4-6.5) 07/07/18 08:00 Lymph # (Auto) 2.24 K/uL (1.2-3.4) 07/07/18 08:00 Norman # (Auto) 0.37 K/uL (0.11-0.59) 07/07/18 08:00 Eos # (Auto) 0.28 K/uL (0-0.5) 07/07/18 08:00 Baso # (Auto) 0.03 K/uL (0-0.2) 07/07/18 08:00 PT 10.0 Seconds (9.0-12.0) 07/07/18 08:00 INR 1.0 (0.9-1.1) 07/07/18 08:00 Sodium 141 mmol/L (136-145) 07/10/18 05:30 Potassium 4.4 mmol/L (3.5-5.1) 07/10/18 05:30 Chloride 113 mmol/L (98-107) H 07/10/18 05:30 Carbon Dioxide 21 mmol/L (21-32) 07/10/18 05:30 Anion Gap 7.0 (3-11) 07/10/18 05:30 BUN 81 mg/dl (7-18) H 07/10/18 05:30 Creatinine 3.30 mg/dl (0.6-1.2) H D 07/10/18 05:30 Est Cr Clr Drug Dosing 18.3 ml/min 07/10/18 05:30 Est GFR ( Amer) 16.4 07/10/18 05:30 Est GFR (Non-Af Amer) 14.1 07/10/18 05:30 BUN/Creatinine Ratio 24.5 (10-20) H 07/10/18 05:30 Glucose 81 mg/dl (70-99) 07/10/18 05:30 POC Glucose 154 (70-99) H 07/10/18 12:23 Estimat Average Glucose 217 mg/dl 07/10/18 05:30 Hemoglobin A1c 9.2 % (4.5-5.6) H 07/10/18 05:30 Calcium 7.8 mg/dl (8.5-10.1) L 07/10/18 05:30 Iron 18 mcg/dl (35-150) L 07/09/18 05:29 Transferrin 186 mg/dl (200-360) L 07/09/18 05:29 Transferrin % Sat 7 % (15-50) L 07/09/18 05:29 Hepatitis C Ab Screen Neg (Neg) 07/07/18 08:00 _ (1) Closed fracture of distal end of right fibula and tibia Encounter type: Fracture healing:
[2018-07-10 13:00] LABS: Hematocrit (blood only) 23.2 % (37-47); Hemoglobin 7.4 g/dL (12.0-16.0)
--- NOTE | 2018-07-10 13:21 | Pharmacy Report ---
Pharmacy Glycemic Short Note 2 - Date of Service July 10, 2018 - Glycemic Short BSG Results (Last 24 hours): 07/09/18 07/09/18 07/09/18 17:07 20:37 23:57 Glucose POC Glucose 212 H 223 H 115 H 07/10/18 07/10/18 07/10/18 03:49 05:30 08:19 Glucose 81 POC Glucose 92 91 07/10/18 12:23 Glucose POC Glucose 154 H OUTPATIENT ANTIDIABETIC REGIMEN: * Lantus 30 units qAM * A1c 9.2% 07/10/18 ASSESSMENT: * Patient is POD #2 s/p ankle repair. Hyperglycemia significantly improved over the past 12 hours. * Patient received 90 units of insulin yesterday. Increased usage was likely due to a combination of receiving dexamethasone in the OR and basal insulin deficiency (patient was without any basal insulin, possibly for more than 24 hours). * Fasting BSG of 91 mg/dL is slightly below goal. She received 50 units of Lantus yesterday. I will resume home dose of 30 units at this time. * Post prandial BSGs have improved. I will loosen Novolog parameters since stress from surgery/steroids has resolved. PLAN FOR INPATIENT GLYCEMIC CONTROL: * Basal insulin * Lantus 30 units SQ qAM - given with lunch today * Bolus insulin - loosen * NovoLog per scale ACHS or Q6hrs while NPO * Goal Range: Low 110 mg/dL - High 140 mg/dL * Correction Factor: 20 mg/dL/unit * Nutritional / Prandial insulin per carb ratio of 1 unit per 8 grams CHO consumed
[2018-07-10] MEDS ORDERED: INSULIN GLARGINE SOLOSTAR 100 UNITS/ML 3 ML PEN SQ SCH (13:30)
[2018-07-10] MEDS: ACETAMINOPHEN 500 MG TAB PO PRN (20:39)
[2018-07-10] MEDS ORDERED: INSULIN GLARGINE SOLOSTAR 100 UNITS/ML 3 ML PEN SQ ONE (21:00)
[2018-07-11] MEDS: CHOLECALCIFEROL 1,000 UNITS TAB PO SCH (08:44)
[2018-07-11] MEDS: CARVEDILOL 6.25 MG TAB PO SCH ×2 (08:44→20:43)
[2018-07-11] MEDS: ASPIRIN 81 MG ECTAB PO SCH (08:44)
[2018-07-11] MEDS: AMLODIPINE BESYLATE 5 MG TAB PO SCH ×2 (08:44→20:43)
[2018-07-11] MEDS: DORZOLAMIDE/TIMOLOL 22.3/6.8MG/ML 10 ML BTL OPB SCH ×2 (08:44→20:44)
[2018-07-11] MEDS: FUROSEMIDE 40 MG TAB PO SCH ×2 (08:45→18:04)
[2018-07-11] MEDS: INSULIN ASPART 100 UNITS/ML 3 ML PEN SC SCH ×4 (08:47→20:46)
--- NOTE | 2018-07-11 09:26 | Nephrology Progress Note ---
Date of Service July 11, 2018 Assessment & Plan (1) Acute on chronic renal insufficiency: her baseline creatinine over past 14 mos is 2.6-3.0, so has w/ today's labs crossed over to ANETTE, and on verge of CKD 5 though no immediate need for dialysis. hx of nephrotic range proteinuria from longstanding dm, htn. s/p R ankle ORIF 07/08 -avoid nsaids, iv contrast, extremes or swings in blood pressure (high or low) -ensure daily bmp >> creat today 3.2; other chemistries ok -bp has been better controlled w/ recent med changes including reintroducing diuretic -pt for d/c soon to rehab >> she has f/u appt w/ me in [facility] clinic on at 1040; recommend repeat bmp, hgb on 07/17 (2) Hypertension: bp remains controlled w/ CCB 5 mg bid and increased BB and reintroduced lasix >cont above meds current doses -cont pain control -added prn po hydralazine 10 mg q6h for SBP >160 (3) Disorder of fluid or electrolyte: hyperchloremia persists; hypernatremia resolved; potassium acceptable; mild acidosis < latter should improve w/ lasix -daily bmp> ordered one for today given mild clinical issues yesterday -no intervention at this time (4) Anemia in chronic kidney disease: her iron stores are low >>>today is day 2 of 3 day venofer load; if for d/ c before load done, we can finish as OP -as OP would discuss anemia clinic and ensure PCP pursuing age appropriate CA screening -as IP, primary service to transfuse for anemia sx or for hgb less than 7 per routine >>hgb today improved slightly just w/ IV iron Subjective continues to feel well; denies voiding concerns; denies abd pain/ n/constipation ; no F adn good appetite; no generalized weakness or focal numbness other than chronic neuropathy; no sob or cough; no edema or chest pain; no musc-skel pain; no rash; reiterates she wishes to follow in [facility] not [facility] [place] clinic after d/c Physical Exam 2 Vital Signs (Past 24 Hours): Last Vital Signs Temp 36.7 C 07/11/18 07:33 Pulse 74 07/11/18 07:33 Resp 16 07/11/18 07:33 BP 144/74 H 07/11/18 07:33 Pulse Ox 92 07/11/18 07:33 Constitutional: well developed and well nourished on RA, A&0 x 3, maenvuers readily for exam Eyes: EOM intact bilaterally ENMT: Ears: no external ear abnormality Nose: no external nose abnormality Mouth: + dry oral mucous membranes Neck: no nuchal rigidity Respiratory: normal respiratory effort Auscultation: + diminished lung sounds Cardiovascular: RRR, no murmur, no edema Gastrointestinal (Abdomen): Inspection/Auscultation: normal bowel sounds Percussion/Palpation: abdomen soft; abdomen nontender Musculoskeletal: Extremities: strength 5/5 throughout R ankle in large cast Skin: no rashes, warm and dry Neurologic: ross, fluent speech Psychiatric: A+Ox3, euthymic affect Speech: normal rate/rhythm/volume of speech Results & Data Laboratory Results Abnormal lab results 07/10/18 07/10/18 07/10/18 Range/Units 12:23 12:47 17:00 Hgb 7.4 L (12.0-16.0) g/dL Hct 23.2 L (37-47) % POC Glucose 154 H 249 H (70-99) 07/10/18 07/11/18 Range/Units 20:41 08:12 Hgb (12.0-16.0) g/dL Hct (37-47) % POC Glucose 273 H 122 H (70-99) _ (1) Anemia in chronic kidney disease Chronic kidney disease stage: stage 4 (severe) Qualified Code(s): N18.4 - Chronic kidney disease, stage 4 (severe); D63.1 - Anemia in chronic kidney disease (2) Hypertension Hypertension type: essential hypertension Qualified Code(s): I10 - Essential (primary) hypertension
--- NOTE | 2018-07-11 10:22 | Pharmacy Report ---
Pharmacy Glycemic Short Note 2 - Date of Service July 11, 2018 - Glycemic Short BSG Results (Last 24 hours): 07/10/18 07/10/18 07/10/18 12:23 17:00 20:41 POC Glucose 154 H 249 H 273 H 07/11/18 08:12 POC Glucose 122 H OUTPATIENT ANTIDIABETIC REGIMEN: * Lantus 30 units qAM * A1c 9.2% 07/10/18 ASSESSMENT: * Patient is POD #3 s/p ankle repair. * Patient received 75 units of insulin yesterday with post prandial BSG elevations. She was given a second dose of Lantus (15 units) at bedtime due to BSG of 249 and 273 mg/dL. * Fasting BSG of 122 mg/dL is at goal. She is ordered to receive a dose of 45 units of Lantus today. * Post prandial BSGs were elevated yesterday. This was likely due to decreased dose of Lantus on 07/10 AM. I will also tighten carb coverage. PLAN FOR INPATIENT GLYCEMIC CONTROL: * Basal insulin * Lantus 45 units SQ qAM * Bolus insulin - tighten carb coverage * NovoLog per scale ACHS or Q6hrs while NPO * Goal Range: Low 110 mg/dL - High 140 mg/dL * Correction Factor: 20 mg/dL/unit * Nutritional / Prandial insulin per carb ratio of 1 unit per 7 grams CHO consumed PLAN FOR DISCHARGE: * A1c of 9.2% is above goal * Patient is agreeable to adding mealtime insulin to her home regimen * Recommend discharge on the following: * Lantus 35 units SQ qAM * Novolog 8 units TID with meals * F/u with PCP for dose titration in 1-2 weeks
[2018-07-11 10:24] LABS: BUN Creatinine Ratio 25.7 (10-20); Calcium 7.9 mg/dl (8.5-10.1); Creatinine Clr Calc Pharmacy 18.9 ml/min; Est GFR (African American) 17.1; Est GFR (Non-African American) 14.7; Potassium 4.6 mmol/L (3.5-5.1)
[2018-07-11] MEDS: IRON SUCROSE 300 MG in SODIUM CHLORIDE 0.9% 250 ML IV SCH (11:30)
[2018-07-11] MEDS: INSULIN GLARGINE SOLOSTAR 100 UNITS/ML 3 ML PEN SQ SCH (13:22)
--- NOTE | 2018-07-11 14:56 | Hospitalist Progress Note ---
Date of Service July 11, 2018 Assessment & Plan (1) Closed fracture of distal end of right fibula and tibia: Closed fracture of distal end of right fibula and tibia: Successful closed reduction performed in ED Dr Acharya took the patient to the OR on 07/08, see procedure below Status post open reduction internal fixation right trimalleolar ankle fracture dislocation Management as per orthopedic sounds PT/OT with appropriate fall precaution DVT Prophylaxis Per Surgery Protocol Acute on chronic kidney disease Chronic anemia secondary to chronic kidney disease Appreciate nephrology input and recommendation Hemoglobin around 7.4 Has been getting iron infusion Likely to be discharged tomorrow Type 2 diabetes mellitus: controlled now Chronic kidney disease (CKD), stage IV (severe): H/o diabetic nephropathy. Has followed with Dr. Kincaid in the past Cr of 3 today (baseline Cr mid-high 2s) On Lasix Hypertension: BP Meds adjusted Dyslipidemia: No longer taking Lipitor Directed to follow up with PCP to discuss medication for HTN, HLD DVT Ppx: LLE SCD Code status: FULL PCP: Bruce Bronson Dispo: Admitted to med/surg. Discharge to SNF. Subjective This is a 63-year-old female with a PMH of DM II, HTN, HLD and CKD IV who presents with right ankle pain after a fall at home and was found to have a closed fracture of the distal end of R fibula and tibia with dislocation. Status post repair of right fibula and tibial fracture on the of this month 07/11 Patient was seen and examined in medical floor She denies any symptoms as of today She has been getting intravenous iron infusion for anemia of chronic disease She is ready to be discharged tomorrow Physical Exam 2 Vital Signs (Past 24 Hours): Last Vital Signs Temp 36.8 C 07/11/18 11:29 Pulse 68 07/11/18 11:29 Resp 18 07/11/18 11:29 BP 130/72 07/11/18 11:29 Pulse Ox 93 07/11/18 11:29 Constitutional: WD/WN, vitals as above Eyes: PERRL, conjunctivae normal, anicteric sclerae ENMT: external ear and nose normal, oropharynx normal Respiratory: normal respiratory effort; no respiratory distress, no labored breathing and does not use accessory muscles Auscultation: + diminished lung sounds; no crackles and no wheezes Cardiovascular: Rate/Rhythm: regular rate and regular rhythm Heart Sounds: normal S1 and normal S2; no murmur Gastrointestinal (Abdomen): Inspection/Auscultation: abdomen normal to inspection and normal bowel sounds Neurologic: Alert, awake and oriented x3 Results & Data Laboratory Results [facility] 07/11/18 09:37 Sodium 140 Potassium 4.6 Chloride 112 H Carbon Dioxide 23 BUN 82 H Creatinine 3.19 H Glucose 180 H Calcium 7.9 L Medications Administered Current Inpatient Medications Acetaminophen (Tylenol) 1,000 mg PO Q8H PRN PRN Reason: Pain Stop: 08/06/18 11:56 Last Admin: 07/10/18 20:39 Dose: 1,000 mg Amlodipine Besylate (Norvasc) 5 mg PO BID [facility] Stop: 08/08/18 20:59 Last Admin: 07/11/18 08:44 Dose: 5 mg Aspirin (Ecotrin Ectab) 81 mg PO DAILY [facility] Stop: 08/08/18 08:59 Last Admin: 07/11/18 08:44 Dose: 81 mg Carvedilol (Coreg) 6.25 mg PO BID [facility] Stop: 08/08/18 20:59 Last Admin: 07/11/18 08:44 Dose: 6.25 mg Dextrose (Dextrose 50%) 25 - 50 ml IV UD PRN; Protocol PRN Reason: Hypoglycemia Protocol Stop: 08/06/18 12:27 Dorzolamide/Timolol (Cosopt) 1 drops OPB BID [facility] Stop: 08/08/18 20:59 Last Admin: 07/11/18 08:44 Dose: 1 drops Furosemide (Lasix) 40 mg PO [id number] [facility] Stop: 08/08/18 20:59 Last Admin: 07/11/18 08:45 Dose: 40 mg Glucagon (Glucagen) 1 mg SQ UD PRN; Protocol PRN Reason: Hypoglycemia Protocol Stop: 08/06/18 12:27 Glucose (Glucose 40%) 15 - 30 gm PO UD PRN; Protocol PRN Reason: Hypoglycemia Protocol Stop: 08/06/18 12:27 Glucose (Dex4 Glucose) 4 - 8 tabs PO UD PRN; Protocol PRN Reason: Hypoglycemia Protocol Stop: 08/06/18 12:27 Hydralazine HCl (Apresoline) 10 mg PO Q6H PRN PRN Reason: Hypertension Stop: 08/08/18 19:25 Iron Sucrose 300 mg/ Sodium (Chloride) 265 mls @ 176.667 mls/hr IV [id number] [facility] Stop: 07/12/18 11:59 Last Infusion: 07/11/18 13:30 Dose: Infused Insulin Aspart (Novolog Flexpen) 0 units SC ACHS [facility]; Protocol Stop: 08/08/18 13:29 Last Admin: 07/11/18 13:23 Dose: 7 units Insulin Glargine (Lantus Solostar Pen) 45 units SQ QAM [facility] Stop: 08/10/18 11:59 Last Admin: 07/11/18 13:22 Dose: 45 units Miscellaneous (Carbohydrates For Hypoglycemia) 15 - 30 gm PO UD PRN PRN Reason: Hypoglycemia Treatment Stop: 08/06/18 12:27 Miscellaneous Information (Consult Glycemic Management Pharmacy) 1 ea N/A UD PRN; Protocol PRN Reason: Consult Stop: 08/08/18 13:02 Ondansetron HCl (Zofran) 4 mg IV Q6H PRN PRN Reason: Nausea Stop: 08/06/18 12:27 Vitamin D (Vitamin D3) 4,000 units PO DAILY [facility] Stop: 08/09/18 08:59 Last Admin: 07/11/18 08:44 Dose: 4,000 units _ (1) Closed fracture of distal end of right fibula and tibia Encounter type: Fracture healing:
[2018-07-12 05:45] LABS: Hematocrit (blood only) 22.4 % (37-47); Hemoglobin 7.1 g/dL (12.0-16.0); Mean Corpuscular Hgb Conc 31.7 g/dL (32-36); Mean Corpuscular Volume 92.6 fL (80-100); Mean Platelet Volume 9.4 fL (7.4-10.4); Nucleated RBC # (auto) 0.02 K/uL (0-0); Nucleated RBC % (auto) 0.2 %; Platelet Count 250 K/uL (130-400); RDW Coefficient of Variation 13.4 % (11.5-14.5); RDW Standard Deviation 45.8 fL (36.4-46.3); Red Blood Count 2.42 M/uL (4.2-5.4); White Blood Count 9.29 K/uL (4.8-10.8)
[2018-07-12 06:09] LABS: Basophils # (auto) 0.05 K/uL (0-0.2); Basophils % (auto) 0.5 %; Eosinophils % (auto) 4.3 %; Immature Granulocytes % (auto) 1.1 %; Lymphocytes # (auto) 1.78 K/uL (1.2-3.4); Lymphocytes % (auto) 19.2 %; Monocytes # (auto) 0.93 K/uL (0.11-0.59); Neutrophils # (auto) 6.03 K/uL (1.4-6.5); Neutrophils % (auto) 64.9 %; RBC Morphology Unremarkable
[2018-07-12 06:15] LABS: BUN Creatinine Ratio 25.9 (10-20); Calcium 7.9 mg/dl (8.5-10.1); Creatinine Clr Calc Pharmacy 17.5 ml/min; Est GFR (African American) 15.6; Est GFR (Non-African American) 13.5; Potassium 4.5 mmol/L (3.5-5.1)
[2018-07-12] MEDS ORDERED: SODIUM CHLORIDE 0.45 % 1,000 ML IV SCH (07:45)
[2018-07-12] MEDS: ASPIRIN 81 MG ECTAB PO SCH (08:26)
[2018-07-12] MEDS: AMLODIPINE BESYLATE 5 MG TAB PO SCH ×2 (08:26→20:24)
[2018-07-12] MEDS: CARVEDILOL 6.25 MG TAB PO SCH ×2 (08:26→20:25)
[2018-07-12] MEDS: CHOLECALCIFEROL 1,000 UNITS TAB PO SCH (08:26)
[2018-07-12] MEDS: FUROSEMIDE 40 MG TAB PO SCH ×2 (08:26→17:42)
[2018-07-12] MEDS: DORZOLAMIDE/TIMOLOL 22.3/6.8MG/ML 10 ML BTL OPB SCH ×2 (08:27→20:29)
[2018-07-12] MEDS: INSULIN ASPART 100 UNITS/ML 3 ML PEN SC SCH ×4 (08:33→21:35)
[2018-07-12] MEDS: INSULIN GLARGINE SOLOSTAR 100 UNITS/ML 3 ML PEN SQ SCH (08:34)
[2018-07-12] MEDS: IRON SUCROSE 300 MG in SODIUM CHLORIDE 0.9% 250 ML IV SCH (09:48)
[2018-07-12] MEDS ORDERED: SODIUM CHLORIDE 0.9% 250 ML IV PRN (11:29)
--- NOTE | 2018-07-12 12:11 | Nephrology Progress Note ---
Date of Service July 12, 2018 Assessment & Plan (1) Acute on chronic renal insufficiency: her baseline creatinine over past 14 mos is 2.6-3.0, so has w/ today's labs crossed over to as expected likely past several mos to CKD 5 though no immediate need for dialysis. hx of nephrotic range proteinuria from longstanding dm, htn. s/p R ankle ORIF 07/08 -avoid nsaids, iv contrast, extremes or swings in blood pressure (high or low) -ensure daily bmp >> creat today 3.4; other chemistries ok -bp has been better controlled w/ recent med changes including reintroducing diuretic >>>>>we spent about 20 min today discussing her current eGFR (early ckd 5); likely need for dialysis next 3-9 mos; need to get more education on ESRD and to take steps to put off as long as safely possible but also to prepare for safest start to dialysis when/if need arises; we discussed ESRD education class and I suggested she take family member w/ her to attend; we discussed in center HD versus PD briefly. she asked some questions but is still understandably overwhelmed by this topic/ needs to find out more >> she [place] [facility] [place]01 at 1040; recommend repeat bmp, hgb on 07/17 (2) Hypertension: bp remains controlled w/ CCB 5 mg bid and increased BB and reintroduced lasix >cont above meds current doses -cont pain control (3) Disorder of fluid or electrolyte: hyperchloremia persists; hypernatremia resolved; potassium acceptable; mild acidosis improved -daily bmp> ordered one for today given mild clinical issues yesterday -no intervention at this time (4) Anemia in chronic kidney disease: her iron stores are low >>>today is day 3 of 3 day venofer load -as OP would discuss anemia clinic and ensure PCP pursuing age appropriate CA screening -d/w Dr Horton and he will order 1 unit pRBC as she is not likely to have immediate venofer response and won't be referred for anemia clinic until after rehab d/c Subjective Seen on rounds this a.m. At 8:00 a.m.. Patient continues to feel well with few complaints. She notes chronic stable distal extremity paresthesias. No fever chills or poor appetite. No new or acute visual deficits. No shortness of breath or cough. No nausea vomiting bowel movement complaints or abdominal pain. No chest pain or palpitations or edema. No rash. No musculoskeletal pain including right ankle. No focal numbness or weakness. No confusion anxiety or depression. No dysuria, gross hematuria, urinary frequency or incontinence concerns. Physical Exam 2 Vital Signs (Past 24 Hours): Last Vital Signs Temp 36.9 C 07/12/18 07:39 Pulse 69 07/12/18 07:39 Resp 16 07/12/18 07:39 BP 134/70 07/12/18 07:39 Pulse Ox 92 07/12/18 07:39 Constitutional: well developed and well nourished Alert and oriented x3 sitting in bed on room air with anti breakfast tray but side her Eyes: EOM intact bilaterally ENMT: Ears: no external ear abnormality Nose: no external nose abnormality Mouth: + dry oral mucous membranes Neck: no nuchal rigidity Respiratory: normal respiratory effort Auscultation: + diminished lung sounds Cardiovascular: RRR, no murmur, no edema Gastrointestinal (Abdomen): Inspection/Auscultation: normal bowel sounds Percussion/Palpation: abdomen soft; abdomen nontender Musculoskeletal: Extremities: strength 5/5 throughout Skin: no rashes, warm and dry Psychiatric: A+Ox3, euthymic affect Speech: normal rate/rhythm/volume of speech Results & Data Laboratory Results Abnormal lab results 07/11/18 07/11/18 07/12/18 Range/Units 17:44 20:32 05:23 RBC 2.42 L (4.2-5.4) M/uL Hgb 7.1 L (12.0-16.0) g/dL Hct 22.4 L (37-47) % MCHC 31.7 L (32-36) g/dL Immature Gran # (Auto) 0.10 H (0.00-0.02) K/uL Ocean # (Auto) 0.93 H (0.11-0.59) K/uL Absolute Nucleated RBC 0.02 H (0-0) K/uL Chloride (98-107) mmol/L BUN (7-18) mg/dl Creatinine (0.6-1.2) mg/dl BUN/Creatinine Ratio (10-20) Glucose (70-99) mg/dl POC Glucose 208 H 227 H (70-99) Calcium (8.5-10.1) mg/dl Crossmatch 07/12/18 07/12/18 07/12/18 Range/Units 05:23 08:10 11:37 RBC (4.2-5.4) M/uL Hgb (12.0-16.0) g/dL Hct (37-47) % MCHC (32-36) g/dL Immature Gran # (Auto) (0.00-0.02) K/uL Ocean # (Auto) (0.11-0.59) K/uL Absolute Nucleated RBC (0-0) K/uL Chloride 114 H (98-107) mmol/L BUN 89 H (7-18) mg/dl Creatinine 3.44 H (0.6-1.2) mg/dl BUN/Creatinine Ratio 25.9 H (10-20) Glucose 138 H (70-99) mg/dl POC Glucose 137 H (70-99) Calcium 7.9 L (8.5-10.1) mg/dl Crossmatch See Detail 07/12/18 Range/Units 12:07 RBC (4.2-5.4) M/uL Hgb (12.0-16.0) g/dL Hct (37-47) % MCHC (32-36) g/dL Immature Gran # (Auto) (0.00-0.02) K/uL Ocean # (Auto) (0.11-0.59) K/uL Absolute Nucleated RBC (0-0) K/uL Chloride (98-107) mmol/L BUN (7-18) mg/dl Creatinine (0.6-1.2) mg/dl BUN/Creatinine Ratio (10-20) Glucose (70-99) mg/dl POC Glucose 164 H (70-99) Calcium (8.5-10.1) mg/dl Crossmatch _ (1) Hypertension Hypertension type: essential hypertension Qualified Code(s): I10 - Essential (primary) hypertension (2) Anemia in chronic kidney disease Chronic kidney disease stage: stage 4 (severe) Qualified Code(s): N18.4 - Chronic kidney disease, stage 4 (severe); D63.1 - Anemia in chronic kidney disease
--- NOTE | 2018-07-12 16:57 | Hospitalist Progress Note ---
Date of Service July 12, 2018 Assessment & Plan (1) Closed fracture of distal end of right fibula and tibia: Closed fracture of distal end of right fibula and tibia: Successful closed reduction performed in ED Dr Acharya took the patient to the OR on 07/08, see procedure below Status post open reduction internal fixation right trimalleolar ankle fracture dislocation Management as per orthopedic sounds PT/OT with appropriate fall precaution DVT Prophylaxis Per Surgery Protocol Chronic anemia secondary to chronic kidney disease Complicated by iron deficiency Hemoglobin noted to be 7.1 this morning Has been getting intravenous iron infusion Will give 1 unit of blood transfusion Likely to be discharged tomorrow Acute on chronic kidney disease Chronic anemia secondary to chronic kidney disease Appreciate nephrology input and recommendation Hemoglobin around 7.4 Has been getting iron infusion Likely to be discharged tomorrow Type 2 diabetes mellitus: controlled now Chronic kidney disease (CKD), stage IV (severe): H/o diabetic nephropathy. Has followed with Dr. Kincaid in the past Cr of 3 today (baseline Cr mid-high 2s) On Lasix Hypertension: BP Meds adjusted Dyslipidemia: No longer taking Lipitor Directed to follow up with PCP to discuss medication for HTN, HLD DVT Ppx: LLE SCD Code status: FULL PCP: Bruce Bronson Dispo: Admitted to med/surg. Discharge to SNF. Subjective This is a 63-year-old female with a PMH of DM II, HTN, HLD and CKD IV who presents with right ankle pain after a fall at home and was found to have a closed fracture of the distal end of R fibula and tibia with dislocation. Status post repair of right fibula and tibial fracture on the of this month 07/11 Patient was seen and examined in medical floor She denies any symptoms as of today She has been getting intravenous iron infusion for anemia of chronic disease She is ready to be discharged tomorrow 07/12 The patient was seen and examined the medical floor He has been getting intravenous iron infusion and also will get 1 unit of blood transfusion today Generally weak and has been waiting for placement Physical Exam 2 Vital Signs (Past 24 Hours): Last Vital Signs Temp 37.0 C 07/12/18 15:15 Pulse 77 07/12/18 15:15 Resp 20 07/12/18 15:15 BP 164/81 H 07/12/18 15:15 Pulse Ox 90 07/12/18 15:15 Constitutional: WD/WN, vitals as above Eyes: PERRL, conjunctivae normal, anicteric sclerae ENMT: external ear and nose normal, oropharynx normal Respiratory: normal respiratory effort; no respiratory distress, no labored breathing and does not use accessory muscles Auscultation: + diminished lung sounds; no crackles and no wheezes Cardiovascular: Rate/Rhythm: regular rate and regular rhythm Heart Sounds: normal S1 and normal S2; no murmur Gastrointestinal (Abdomen): Inspection/Auscultation: abdomen normal to inspection and normal bowel sounds Neurologic: Alert, awake and oriented x3 Results & Data Laboratory Results Short CBC 07/12/18 Range/Units 05:23 WBC 9.29 (4.8-10.8) K/uL Hgb 7.1 L (12.0-16.0) g/dL Hct 22.4 L (37-47) % Plt Count 250 (130-400) K/uL BMP 07/12/18 05:23 Sodium 144 Potassium 4.5 Chloride 114 H Carbon Dioxide 22 BUN 89 H Creatinine 3.44 H Glucose 138 H Calcium 7.9 L Medications Administered Current Inpatient Medications Acetaminophen (Tylenol) 1,000 mg PO Q8H PRN PRN Reason: Pain Stop: 08/06/18 11:56 Last Admin: 07/10/18 20:39 Dose: 1,000 mg Amlodipine Besylate (Norvasc) 5 mg PO BID [facility] Stop: 08/08/18 20:59 Last Admin: 07/12/18 08:26 Dose: 5 mg Aspirin (Ecotrin Ectab) 81 mg PO DAILY [facility] Stop: 08/08/18 08:59 Last Admin: 07/12/18 08:26 Dose: 81 mg Carvedilol (Coreg) 6.25 mg PO BID [facility] Stop: 08/08/18 20:59 Last Admin: 07/12/18 08:26 Dose: 6.25 mg Dextrose (Dextrose 50%) 25 - 50 ml IV UD PRN; Protocol PRN Reason: Hypoglycemia Protocol Stop: 08/06/18 12:27 Dorzolamide/Timolol (Cosopt) 1 drops OPB BID [facility] Stop: 08/08/18 20:59 Last Admin: 07/12/18 08:27 Dose: 1 drops Furosemide (Lasix) 40 mg PO [id number] [facility] Stop: 08/08/18 20:59 Last Admin: 07/12/18 08:26 Dose: 40 mg Glucagon (Glucagen) 1 mg SQ UD PRN; Protocol PRN Reason: Hypoglycemia Protocol Stop: 08/06/18 12:27 Glucose (Glucose 40%) 15 - 30 gm PO UD PRN; Protocol PRN Reason: Hypoglycemia Protocol Stop: 08/06/18 12:27 Glucose (Dex4 Glucose) 4 - 8 tabs PO UD PRN; Protocol PRN Reason: Hypoglycemia Protocol Stop: 08/06/18 12:27 Hydralazine HCl (Apresoline) 10 mg PO Q6H PRN PRN Reason: Hypertension Stop: 08/08/18 19:25 Sodium Chloride (1/2 Nss) 1,000 mls @ 80 mls/hr IV .[id number] [facility] Stop: 07/12/18 20:14 Last Admin: 07/12/18 08:24 Dose: 80 mls/hr Sodium Chloride (Nss 250ml) 250 mls @ 15 mls/hr IV .[id number] PRN PRN Reason: For Transfusion Stop: 08/11/18 11:28 Insulin Aspart (Novolog Flexpen) 0 units SC ACHS [facility]; Protocol Stop: 08/08/18 13:29 Last Admin: 07/12/18 13:37 Dose: 8 units Insulin Glargine (Lantus Solostar Pen) 45 units SQ QAM [facility] Stop: 08/10/18 11:59 Last Admin: 07/12/18 08:34 Dose: 45 units Miscellaneous (Carbohydrates For Hypoglycemia) 15 - 30 gm PO UD PRN PRN Reason: Hypoglycemia Treatment Stop: 08/06/18 12:27 Miscellaneous Information (Consult Glycemic Management Pharmacy) 1 ea N/A UD PRN; Protocol PRN Reason: Consult Stop: 08/08/18 13:02 Ondansetron HCl (Zofran) 4 mg IV Q6H PRN PRN Reason: Nausea Stop: 08/06/18 12:27 Vitamin D (Vitamin D3) 4,000 units PO DAILY [facility] Stop: 08/09/18 08:59 Last Admin: 07/12/18 08:26 Dose: 4,000 units _ (1) Closed fracture of distal end of right fibula and tibia Encounter type: Fracture healing:
[2018-07-13 06:03] LABS: Hematocrit (blood only) 26.2 % (37-47); Hemoglobin 8.4 g/dL (12.0-16.0); Mean Corpuscular Hgb Conc 32.1 g/dL (32-36); Mean Platelet Volume 9.7 fL (7.4-10.4); Nucleated RBC # (auto) 0.08 K/uL (0-0); Nucleated RBC % (auto) 0.8 %; Platelet Count 270 K/uL (130-400); RDW Coefficient of Variation 13.7 % (11.5-14.5); RDW Standard Deviation 45.4 fL (36.4-46.3); Red Blood Count 2.88 M/uL (4.2-5.4)
[2018-07-13 06:58] LABS: Basophils # (auto) 0.02 K/uL (0-0.2); Basophils % (auto) 0.2 %; Eosinophils # (auto) 0.38 K/uL (0-0.5); Eosinophils % (auto) 3.7 %; Immature Granulocytes # (auto) 0.13 K/uL (0.00-0.02); Immature Granulocytes % (auto) 1.3 %; Lymphocytes # (auto) 1.75 K/uL (1.2-3.4); Lymphocytes % (auto) 16.8 %; Monocytes # (auto) 1.15 K/uL (0.11-0.59); Monocytes % (auto) 11.1 %; Neutrophils # (auto) 6.97 K/uL (1.4-6.5); Neutrophils % (auto) 66.9 %
--- NOTE | 2018-07-13 08:34 | Hospitalist Progress Note ---
Date of Service July 13, 2018 Assessment & Plan (1) Closed fracture of distal end of right fibula and tibia: Closed fracture of distal end of right fibula and tibia: Successful closed reduction performed in ED Dr Acharya took the patient to the OR on 07/08, see procedure below Status post open reduction internal fixation right trimalleolar ankle fracture dislocation Management as per orthopedic sounds PT/OT with appropriate fall precaution DVT Prophylaxis Per Surgery Protocol Medically stable to be transferred for rehab Chronic anemia secondary to chronic kidney disease Complicated by iron deficiency Hemoglobin noted to be 7.1 this morning Has been getting intravenous iron infusion Will give 1 unit of blood transfusion Likely to be discharged tomorrow Hemoglobin is 8.4 today following 1 unit of blood transfusion Acute on chronic kidney disease stage IV Chronic anemia secondary to chronic kidney disease Appreciate nephrology input and recommendation Hemoglobin around 7.4 Has been getting iron infusion Likely to be discharged tomorrow Creatinine 3.44 as of today, 07/13 Type 2 diabetes mellitus: controlled now Chronic kidney disease (CKD), stage IV (severe): H/o diabetic nephropathy. Has followed with Dr. Kincaid in the past Cr of 3 today (baseline Cr mid-high 2s) On Lasix Hypertension: BP Meds adjusted Dyslipidemia: No longer taking Lipitor Directed to follow up with PCP to discuss medication for HTN, HLD DVT Ppx: LLE SCD Code status: FULL PCP: Bruce Bronson Dispo: Admitted to med/surg. Discharge to SNF. Likely discharge this afternoon Subjective This is a 63-year-old female with a PMH of DM II, HTN, HLD and CKD IV who presents with right ankle pain after a fall at home and was found to have a closed fracture of the distal end of R fibula and tibia with dislocation. Status post repair of right fibula and tibial fracture on the of this month 07/11 Patient was seen and examined in medical floor She denies any symptoms as of today She has been getting intravenous iron infusion for anemia of chronic disease She is ready to be discharged tomorrow 07/12 The patient was seen and examined the medical floor He has been getting intravenous iron infusion and also will get 1 unit of blood transfusion today Generally weak and has been waiting for placement 07/13 Has been feeling a lot better following blood transfusion Denies any symptoms today Will be discharged Physical Exam 2 Vital Signs (Past 24 Hours): Last Vital Signs Temp 36.9 C 07/13/18 07:04 Pulse 73 07/13/18 07:04 Resp 16 07/13/18 07:04 BP 153/79 H 07/13/18 07:04 Pulse Ox 94 07/13/18 07:04 Constitutional: WD/WN, vitals as above Eyes: PERRL, conjunctivae normal, anicteric sclerae ENMT: external ear and nose normal, oropharynx normal Respiratory: normal respiratory effort; no respiratory distress, no labored breathing and does not use accessory muscles Auscultation: + diminished lung sounds; no crackles and no wheezes Cardiovascular: Rate/Rhythm: regular rate and regular rhythm Heart Sounds: normal S1 and normal S2; no murmur Gastrointestinal (Abdomen): Inspection/Auscultation: abdomen normal to inspection and normal bowel sounds Musculoskeletal: No acute arthritis. Has pain in the right leg. Neurologic: 1. 32 x 3 _ (1) Closed fracture of distal end of right fibula and tibia Encounter type: Fracture healing:
[2018-07-13] MEDS: INSULIN ASPART 100 UNITS/ML 3 ML PEN SC SCH ×4 (09:02→20:54)
[2018-07-13] MEDS: INSULIN GLARGINE SOLOSTAR 100 UNITS/ML 3 ML PEN SQ SCH (09:03)
[2018-07-13] MEDS: CARVEDILOL 6.25 MG TAB PO SCH ×2 (09:05→20:57)
[2018-07-13] MEDS: ASPIRIN 81 MG ECTAB PO SCH (09:05)
[2018-07-13] MEDS: AMLODIPINE BESYLATE 5 MG TAB PO SCH ×2 (09:05→20:57)
[2018-07-13] MEDS: CHOLECALCIFEROL 1,000 UNITS TAB PO SCH (09:05)
[2018-07-13] MEDS: FUROSEMIDE 40 MG TAB PO SCH ×2 (09:05→17:07)
[2018-07-13] MEDS: DORZOLAMIDE/TIMOLOL 22.3/6.8MG/ML 10 ML BTL OPB SCH ×2 (09:06→20:58)
--- NOTE | 2018-07-13 14:07 | Pharmacy Report ---
Pharmacy Glycemic Short Note 2 - Date of Service July 13, 2018 - Glycemic Short BSG Results (Last 24 hours): 07/12/18 07/12/18 07/13/18 16:56 20:41 08:06 POC Glucose 194 H 220 H 126 H 07/13/18 12:02 POC Glucose 162 H OUTPATIENT ANTIDIABETIC REGIMEN: * Lantus 30 units qAM * A1c 9.2% 07/10/18 ASSESSMENT: 07/13/18 * POD 5 ankle repair * Blood sugars rising slightly throughout the day, will tighten CR slightly 07/11/18 * Patient is POD #3 s/p ankle repair. * Patient received 75 units of insulin yesterday with post prandial BSG elevations. She was given a second dose of Lantus (15 units) at bedtime due to BSG of 249 and 273 mg/dL. * Fasting BSG of 122 mg/dL is at goal. She is ordered to receive a dose of 45 units of Lantus today. * Post prandial BSGs were elevated yesterday. This was likely due to decreased dose of Lantus on 07/10 AM. I will also tighten carb coverage. PLAN FOR INPATIENT GLYCEMIC CONTROL: * Basal insulin * Lantus 45 units SQ qAM * Bolus insulin - tighten carb coverage * NovoLog per scale ACHS or Q6hrs while NPO * Goal Range: Low 110 mg/dL - High 140 mg/dL * Correction Factor: 20 mg/dL/unit * Nutritional / Prandial insulin per carb ratio of 1 unit per 6 grams CHO consumed PLAN FOR DISCHARGE: * A1c of 9.2% is above goal * Patient is agreeable to adding mealtime insulin to her home regimen * Recommend discharge on the following: * Lantus 40 units SQ qAM * Novolog 8 units TID with meals * F/u with PCP for dose titration in 1-2 weeks
[2018-07-13] MEDS: ACETAMINOPHEN 500 MG TAB PO PRN (23:29)
[2018-07-14] MEDS: CARVEDILOL 6.25 MG TAB PO SCH ×2 (09:22→20:26)
[2018-07-14] MEDS: DORZOLAMIDE/TIMOLOL 22.3/6.8MG/ML 10 ML BTL OPB SCH ×2 (09:23→20:27)
[2018-07-14] MEDS: ASPIRIN 81 MG ECTAB PO SCH (09:23)
[2018-07-14] MEDS: FUROSEMIDE 40 MG TAB PO SCH ×2 (09:23→16:37)
[2018-07-14] MEDS: CHOLECALCIFEROL 1,000 UNITS TAB PO SCH (09:24)
[2018-07-14] MEDS: INSULIN ASPART 100 UNITS/ML 3 ML PEN SC SCH ×4 (09:27→20:30)
[2018-07-14] MEDS: AMLODIPINE BESYLATE 5 MG TAB PO SCH ×2 (10:01→20:26)
[2018-07-14] MEDS: INSULIN GLARGINE SOLOSTAR 100 UNITS/ML 3 ML PEN SQ SCH (10:02)
--- NOTE | 2018-07-14 11:28 | Pharmacy Report ---
Glycemic Control Progress Note - Date of Service July 14, 2018 - Scope Glycemic Pharmacist consulted for glycemic control to write orders per [facility] inpatient glycemic control protocol. - Objective Accuchecks BSG(last 24 hours):: 07/13/18 07/13/18 07/13/18 12:02 17:02 20:23 POC Glucose 162 H 143 H 169 H 07/14/18 08:19 POC Glucose 95 HbA1c:: Hemoglobin A1c 9.2 % (4.5-5.6) H 07/10/18 05:30 - Recent Pertinent Medications The patient is currently receiving: * Basal insulin: Lantus 45 units every morning * Correctional Insulin: Novolog Correction per scale ACHS Goal Range: Low 110 mg/dL - High 140 mg/dL Correction Factor: 20 mg/dL/unit * Prandial insulin: Per carb ratio of 1 unit per 6 grams CHO consumed - Outpatient Anti-Diabetic Meds Lantus 30 units in the morning - Assessment & Plan ASSESSMENT: * See progress note from 07/09/18 for more background info, in short: * Pt receiving SQ basal bolus insulin regimen for hyperglycemia secondary to baseline DM (outpatient regimen on hold), POD 6 * Patient is currently receiving an average of 74 units of insulin per day * 45 units of basal insulin * 29 units of prandial/correctional insulin * BSGs ranging 126 - 169 mg/dl over the past 24hrs * Changes needed to insulin regimen: * AM Fasting BSG = 95 mg/dl. This is below goal range for patient based on inpatient targets and co-morbidities. Therefore Basal insulin will be decreased by 20%. * Post-prandial BSGs are in range therefore no changes needed to CF/CR. * Total daily dose = 60-70 units. Re-adjusted to more 50/50 split. PLAN FOR INPATIENT GLYCEMIC CONTROL: * Decreasing Lantus to 38 units SQ qAM * Continuing correction factor of 20 mg/dl/unit * Continuing carb ratio of 1 unit per 6 grams CHO consumed * Continuing goal range of Low 110 mg/dL - High 140 mg/dL RECOMMENDATIONS FOR DISCHARGE: * see note from yesterday. * Please note that the plan above was derived based on current level of insulin resistance and hospital stress. These recommendations are appropriate for inpatient admission only. Plan of care upon discharge will need to be reassessed to avoid potential outpatient hypo/hyperglycemia. Thank you.
--- NOTE | 2018-07-14 17:14 | Hospitalist Progress Note ---
Date of Service July 14, 2018 Assessment & Plan (1) Closed fracture of distal end of right fibula and tibia: Closed fracture of distal end of right fibula and tibia: Successful closed reduction performed in ED Dr Acharya took the patient to the OR on 07/08, see procedure below Status post open reduction internal fixation right trimalleolar ankle fracture dislocation Management as per orthopedic sounds PT/OT with appropriate fall precaution DVT Prophylaxis Per Surgery Protocol Medically stable to be transferred for rehab Awaiting for bed Chronic anemia secondary to chronic kidney disease Complicated by iron deficiency Hemoglobin noted to be 7.1 this morning Has been getting intravenous iron infusion Will give 1 unit of blood transfusion Likely to be discharged tomorrow Hemoglobin is 8.4 today following 1 unit of blood transfusion Acute on chronic kidney disease stage IV Chronic anemia secondary to chronic kidney disease Appreciate nephrology input and recommendation Hemoglobin around 7.4 Has been getting iron infusion Likely to be discharged tomorrow Creatinine 3.44 as of today, 07/13 Type 2 diabetes mellitus: controlled now Chronic kidney disease (CKD), stage IV (severe): H/o diabetic nephropathy. Has followed with Dr. Kincaid in the past Cr of 3 today (baseline Cr mid-high 2s) On Lasix Hypertension: BP Meds adjusted Dyslipidemia: No longer taking Lipitor Directed to follow up with PCP to discuss medication for HTN, HLD DVT Ppx: LLE SCD Code status: FULL PCP: Bruce Bronson Dispo: Admitted to med/surg. Discharge to SNF. Likely discharge on Monday Subjective This is a 63-year-old female with a PMH of DM II, HTN, HLD and CKD IV who presents with right ankle pain after a fall at home and was found to have a closed fracture of the distal end of R fibula and tibia with dislocation. Status post repair of right fibula and tibial fracture on the of this month 07/11 Patient was seen and examined in medical floor She denies any symptoms as of today She has been getting intravenous iron infusion for anemia of chronic disease She is ready to be discharged tomorrow 07/12 The patient was seen and examined the medical floor He has been getting intravenous iron infusion and also will get 1 unit of blood transfusion today Generally weak and has been waiting for placement 07/13 Has been feeling a lot better following blood transfusion Denies any symptoms today Will be discharged 07/14 Denies any symptoms and remains stable No bed available until Monday Physical Exam 2 Vital Signs (Past 24 Hours): Last Vital Signs Temp 36.8 C 07/14/18 15:42 Pulse 69 07/14/18 15:42 Resp 22 07/14/18 15:42 BP 136/77 07/14/18 15:42 Pulse Ox 96 07/14/18 15:42 Physical Exam: No apparent distress at rest Constitutional: WD/WN, vitals as above Eyes: PERRL, conjunctivae normal, anicteric sclerae ENMT: external ear and nose normal, oropharynx normal Respiratory: normal respiratory effort; no respiratory distress, no labored breathing and does not use accessory muscles Auscultation: + diminished lung sounds; no crackles and no wheezes Cardiovascular: Rate/Rhythm: regular rate and regular rhythm Heart Sounds: normal S1 and normal S2; no murmur Gastrointestinal (Abdomen): Inspection/Auscultation: abdomen normal to inspection and normal bowel sounds Musculoskeletal: Minimal or no pain at rest at the surgery site Neurologic: Alert, awake and oriented x3 Results & Data Medications Administered Current Inpatient Medications Acetaminophen (Tylenol) 1,000 mg PO Q8H PRN PRN Reason: Pain Stop: 08/06/18 11:56 Last Admin: 07/13/18 23:29 Dose: 1,000 mg Amlodipine Besylate (Norvasc) 5 mg PO BID JOSE FRANCISCO Stop: 08/08/18 20:59 Last Admin: 07/14/18 10:01 Dose: 5 mg Aspirin (Ecotrin Ectab) 81 mg PO DAILY JOSE FRANCISCO Stop: 08/08/18 08:59 Last Admin: 07/14/18 09:23 Dose: 81 mg Carvedilol (Coreg) 6.25 mg PO BID JOSE FRANCISCO Stop: 08/08/18 20:59 Last Admin: 07/14/18 09:22 Dose: 6.25 mg Dextrose (Dextrose 50%) 25 - 50 ml IV UD PRN; Protocol PRN Reason: Hypoglycemia Protocol Stop: 08/06/18 12:27 Dorzolamide/Timolol (Cosopt) 1 drops OPB BID JOSE FRANCISCO Stop: 08/08/18 20:59 Last Admin: 07/14/18 09:23 Dose: 1 drops Furosemide (Lasix) 40 mg PO [id number] JOSE FRANCISCO Stop: 08/08/18 20:59 Last Admin: 07/14/18 16:37 Dose: 40 mg Glucagon (Glucagen) 1 mg SQ UD PRN; Protocol PRN Reason: Hypoglycemia Protocol Stop: 08/06/18 12:27 Glucose (Glucose 40%) 15 - 30 gm PO UD PRN; Protocol PRN Reason: Hypoglycemia Protocol Stop: 08/06/18 12:27 Glucose (Dex4 Glucose) 4 - 8 tabs PO UD PRN; Protocol PRN Reason: Hypoglycemia Protocol Stop: 08/06/18 12:27 Hydralazine HCl (Apresoline) 10 mg PO Q6H PRN PRN Reason: Hypertension Stop: 08/08/18 19:25 Sodium Chloride (Nss 250ml) 250 mls @ 15 mls/hr IV .[id number] PRN PRN Reason: For Transfusion Stop: 08/11/18 11:28 Insulin Aspart (Novolog Flexpen) 0 units SC ACHS [facility]; Protocol Stop: 08/08/18 13:29 Last Admin: 07/14/18 13:31 Dose: 11 units Insulin Glargine (Lantus Solostar Pen) 38 units SQ QAM JOSE FRANCISCO Stop: 08/13/18 08:59 Last Admin: 07/14/18 10:02 Dose: 38 units Miscellaneous (Carbohydrates For Hypoglycemia) 15 - 30 gm PO UD PRN PRN Reason: Hypoglycemia Treatment Stop: 08/06/18 12:27 Miscellaneous Information (Consult Glycemic Management Pharmacy) 1 ea N/A UD PRN; Protocol PRN Reason: Consult Stop: 08/08/18 13:02 Ondansetron HCl (Zofran) 4 mg IV Q6H PRN PRN Reason: Nausea Stop: 08/06/18 12:27 Vitamin D (Vitamin D3) 4,000 units PO DAILY [facility] Stop: 08/09/18 08:59 Last Admin: 07/14/18 09:24 Dose: 4,000 units _ (1) Closed fracture of distal end of right fibula and tibia Encounter type: Fracture healing:
[2018-07-15] MEDS: CARVEDILOL 6.25 MG TAB PO SCH ×2 (08:53→20:57)
[2018-07-15] MEDS: DORZOLAMIDE/TIMOLOL 22.3/6.8MG/ML 10 ML BTL OPB SCH ×2 (08:54→20:59)
[2018-07-15] MEDS: ASPIRIN 81 MG ECTAB PO SCH (08:54)
[2018-07-15] MEDS: FUROSEMIDE 40 MG TAB PO SCH ×2 (08:54→17:40)
[2018-07-15] MEDS: AMLODIPINE BESYLATE 5 MG TAB PO SCH ×2 (08:55→20:57)
[2018-07-15] MEDS: CHOLECALCIFEROL 1,000 UNITS TAB PO SCH (08:55)
[2018-07-15] MEDS: INSULIN ASPART 100 UNITS/ML 3 ML PEN SC SCH ×4 (08:59→20:57)
[2018-07-15] MEDS: INSULIN GLARGINE SOLOSTAR 100 UNITS/ML 3 ML PEN SQ SCH (09:00)
--- NOTE | 2018-07-15 11:13 | Pharmacy Report ---
Glycemic Control Progress Note - Date of Service July 15, 2018 - Scope Glycemic Pharmacist consulted for glycemic control to write orders per [facility] inpatient glycemic control protocol. - Objective Accuchecks BSG(last 24 hours):: 07/14/18 07/14/18 07/14/18 12:06 17:10 20:20 POC Glucose 175 H 268 H 266 H 07/15/18 06:35 POC Glucose 131 H HbA1c:: Hemoglobin A1c 9.2 % (4.5-5.6) H 07/10/18 05:30 - Recent Pertinent Medications The patient is currently receiving: * Basal insulin: Lantus 38 units every 24 hours in the morning * Correctional Insulin: Novolog Correction per scale ACHS Goal Range: Low 110 mg/dL - High 140 mg/dL Correction Factor: 20 mg/dL/unit * Prandial insulin: Per carb ratio of 1 unit per 6 grams CHO consumed - Outpatient Anti-Diabetic Meds Lantus 30 units in the morning - Assessment & Plan ASSESSMENT: * See progress note from 07/09/18 for more background info, in short: * Pt receiving SQ basal bolus insulin regimen for hyperglycemia secondary to baseline DM (outpatient regimen on hold). * Patient is currently receiving an average of 74 units of insulin per day * 38 units of basal insulin * 36 units of prandial/correctional insulin * BSGs ranging 95 - 268 mg/dl over the past 24hrs * Changes needed to insulin regimen: * AM Fasting BSG = 131 mg/dl. This is within goal range for patient based on inpatient targets and co-morbidities. Therefore Basal insulin will be continued. This is much higher than yesterday's fasting of 95 mg/dL but want to ensure a trend upwards before increasing Lantus again. * Post-prandial BSGs are elevated and rise throughout the day therefore need to tighten CF/CR. * Total daily dose = 80 units. PLAN FOR INPATIENT GLYCEMIC CONTROL: * Continuing Lantus 38 units SQ qAM * TIGHTENING correction factor to 15 mg/dl/unit * TIGHTENING carb ratio to 1 unit per 5 grams CHO consumed * Continuing goal range of Low 110 mg/dL - High 140 mg/dL RECOMMENDATIONS FOR DISCHARGE: * see note from 07/13/18 * Please note that the plan above was derived based on current level of insulin resistance and hospital stress. These recommendations are appropriate for inpatient admission only. Plan of care upon discharge will need to be reassessed to avoid potential outpatient hypo/hyperglycemia. Thank you.
--- NOTE | 2018-07-15 14:56 | Hospitalist Progress Note ---
Date of Service July 15, 2018 Assessment & Plan (1) Closed fracture of distal end of right fibula and tibia: Closed fracture of distal end of right fibula and tibia: Successful closed reduction performed in ED Dr Acharya took the patient to the OR on 07/08, see procedure below Status post open reduction internal fixation right trimalleolar ankle fracture dislocation Management as per orthopedic sounds PT/OT with appropriate fall precaution DVT Prophylaxis Per Surgery Protocol Medically stable to be transferred for rehab Awaiting for bed Will be transferred to skilled care facility on Monday Chronic anemia secondary to chronic kidney disease Complicated by iron deficiency Hemoglobin noted to be 7.1 this morning Has been getting intravenous iron infusion Will give 1 unit of blood transfusion Likely to be discharged tomorrow Hemoglobin is 8.4 today following 1 unit of blood transfusion We will check CBC and PRP tomorrow Acute on chronic kidney disease stage IV Chronic anemia secondary to chronic kidney disease Appreciate nephrology input and recommendation Hemoglobin around 7.4 Has been getting iron infusion Likely to be discharged tomorrow Creatinine 3.44 as of today, 07/13 We will check creatinine tomorrow Type 2 diabetes mellitus: controlled now Chronic kidney disease (CKD), stage IV (severe): H/o diabetic nephropathy. Has followed with Dr. Kincaid in the past Cr of 3 today (baseline Cr mid-high 2s) On Lasix Hypertension: BP Meds adjusted Dyslipidemia: No longer taking Lipitor Directed to follow up with PCP to discuss medication for HTN, HLD DVT Ppx: LLE SCD Code status: FULL PCP: Bruce Bronson Dispo: Admitted to med/surg. Discharge to SNF. Likely discharge on Monday when there is a bed for her Subjective This is a 63-year-old female with a PMH of DM II, HTN, HLD and CKD IV who presents with right ankle pain after a fall at home and was found to have a closed fracture of the distal end of R fibula and tibia with dislocation. Status post repair of right fibula and tibial fracture on the of this month 07/11 Patient was seen and examined in medical floor She denies any symptoms as of today She has been getting intravenous iron infusion for anemia of chronic disease She is ready to be discharged tomorrow 07/12 The patient was seen and examined the medical floor He has been getting intravenous iron infusion and also will get 1 unit of blood transfusion today Generally weak and has been waiting for placement 07/13 Has been feeling a lot better following blood transfusion Denies any symptoms today Will be discharged 07/14 Denies any symptoms and remains stable No bed available until Saturday 07/15 Remains stable and now waiting for placement Physical Exam 2 Vital Signs (Past 24 Hours): Last Vital Signs Temp 36.6 C 07/15/18 06:28 Pulse 67 07/15/18 06:28 Resp 15 07/15/18 06:28 BP 136/71 07/15/18 06:28 Pulse Ox 91 07/15/18 06:28 Constitutional: WD/WN, vitals as above Eyes: PERRL, conjunctivae normal, anicteric sclerae ENMT: external ear and nose normal, oropharynx normal Respiratory: normal respiratory effort; no respiratory distress, no labored breathing and does not use accessory muscles Auscultation: + diminished lung sounds; no crackles and no wheezes Cardiovascular: Rate/Rhythm: regular rate and regular rhythm Heart Sounds: normal S1 and normal S2; no murmur Gastrointestinal (Abdomen): Inspection/Auscultation: abdomen normal to inspection and normal bowel sounds Musculoskeletal: Denies any acute pain at rest Psychiatric: A+Ox3, euthymic affect _ (1) Closed fracture of distal end of right fibula and tibia Encounter type: Fracture healing:
[2018-07-15] MEDS: ACETAMINOPHEN 500 MG TAB PO PRN (21:10)
[2018-07-16 06:14] LABS: Hematocrit (blood only) 26.5 % (37-47); Hemoglobin 8.7 g/dL (12.0-16.0); Mean Corpuscular Hgb Conc 32.8 g/dL (32-36); Mean Corpuscular Volume 91.1 fL (80-100); Mean Platelet Volume 9.6 fL (7.4-10.4); Platelet Count 293 K/uL (130-400); RDW Coefficient of Variation 13.8 % (11.5-14.5); RDW Standard Deviation 44.3 fL (36.4-46.3); Red Blood Count 2.91 M/uL (4.2-5.4); White Blood Count 9.79 K/uL (4.8-10.8)
[2018-07-16 06:39] LABS: Basophils # (auto) 0.04 K/uL (0-0.2); Basophils % (auto) 0.4 %; Eosinophils # (auto) 0.45 K/uL (0-0.5); Eosinophils % (auto) 4.6 %; Immature Granulocytes # (auto) 0.07 K/uL (0.00-0.02); Immature Granulocytes % (auto) 0.7 %; Lymphocytes # (auto) 2.51 K/uL (1.2-3.4); Lymphocytes % (auto) 25.6 %; Monocytes # (auto) 1.01 K/uL (0.11-0.59); Monocytes % (auto) 10.3 %; Neutrophils # (auto) 5.71 K/uL (1.4-6.5); Neutrophils % (auto) 58.4 %
[2018-07-16 06:51] LABS: BUN Creatinine Ratio 30.3 (10-20); Creatinine Clr Calc Pharmacy 18.7 ml/min; Est GFR (African American) 16.9; Est GFR (Non-African American) 14.6; Potassium 4.6 mmol/L (3.5-5.1)
[2018-07-16] MEDS: CHOLECALCIFEROL 1,000 UNITS TAB PO SCH (07:41)
[2018-07-16] MEDS: AMLODIPINE BESYLATE 5 MG TAB PO SCH (07:41)
[2018-07-16] MEDS: CARVEDILOL 6.25 MG TAB PO SCH (07:42)
[2018-07-16] MEDS: ASPIRIN 81 MG ECTAB PO SCH (07:42)
[2018-07-16] MEDS: FUROSEMIDE 40 MG TAB PO SCH (07:43)
[2018-07-16] MEDS: DORZOLAMIDE/TIMOLOL 22.3/6.8MG/ML 10 ML BTL OPB SCH (07:43)
[2018-07-16] MEDS: INSULIN GLARGINE SOLOSTAR 100 UNITS/ML 3 ML PEN SQ SCH (07:46)
[2018-07-16] MEDS: INSULIN ASPART 100 UNITS/ML 3 ML PEN SC SCH ×2 (07:47→13:01)
--- NOTE | 2018-07-16 09:51 | Pharmacy Report ---
Pharmacy Glycemic Short Note 2 - Date of Service July 16, 2018 - Glycemic Short BSG Results (Last 24 hours): 07/15/18 07/15/18 07/15/18 12:11 17:11 20:31 Glucose POC Glucose 195 H 216 H 201 H 07/16/18 07/16/18 05:46 06:32 Glucose 104 H POC Glucose 116 H OUTPATIENT ANTIDIABETIC REGIMEN: * Lantus 30 units qAM * A1c 9.2% 07/10/18 ASSESSMENT: * Ms. Riley received 83 units of insulin yesterday, 38 of this being basal * Fasting = 104 mg/dL; no change necessary for basal insulin * Postprandial BSGs ~200 mg/dL; will tighten CR further PLAN FOR INPATIENT GLYCEMIC CONTROL: * Basal insulin - no change * Lantus 38 units SQ qAM * Bolus insulin - tighten carb coverage * NovoLog per scale ACHS or Q6hrs while NPO * Goal Range: Low 110 mg/dL - High 140 mg/dL * Correction Factor: 15 mg/dL/unit * Nutritional / Prandial insulin per carb ratio of 1 unit per 4 grams CHO consumed PLAN FOR DISCHARGE: * see note from 07/13
--- NOTE | 2018-07-16 13:09 | Hospitalist Progress Note ---
Date of Service July 16, 2018 Assessment & Plan (1) Closed fracture of distal end of right fibula and tibia: Closed fracture of distal end of right fibula and tibia: Successful closed reduction performed in ED Dr Acharya took the patient to the OR on 07/08, see procedure below Status post open reduction internal fixation right trimalleolar ankle fracture dislocation Management as per orthopedic sounds PT/OT with appropriate fall precaution DVT Prophylaxis Per Surgery Protocol Medically stable to be transferred for rehab Awaiting for bed Will be transferred to skilled care facility on Monday Will go to [facility] this afternoon Chronic anemia secondary to chronic kidney disease Complicated by iron deficiency Hemoglobin noted to be 7.1 this morning Has been getting intravenous iron infusion Will give 1 unit of blood transfusion Likely to be discharged tomorrow Hemoglobin is 8.4 today following 1 unit of blood transfusion We will check CBC and PRP tomorrow Hemoglobin is 8.7 on 07/16 Acute on chronic kidney disease stage IV Chronic anemia secondary to chronic kidney disease Appreciate nephrology input and recommendation Hemoglobin around 7.4 Has been getting iron infusion Likely to be discharged tomorrow Creatinine 3.44 as of today, 07/13 We will check creatinine tomorrow-3.22 remains stable Type 2 diabetes mellitus: controlled now Chronic kidney disease (CKD), stage IV (severe): H/o diabetic nephropathy. Has followed with Dr. Kincaid in the past Cr of 3 today (baseline Cr mid-high 2s) On Lasix Hypertension: BP Meds adjusted Dyslipidemia: No longer taking Lipitor Directed to follow up with PCP to discuss medication for HTN, HLD DVT Ppx: LLE SCD Code status: FULL PCP: Bruce Bronson Dispo: Admitted to med/surg. Discharge to SNF. Likely discharge on Monday when there is a bed for her We will go to [facility] this afternoon Subjective This is a 63-year-old female with a PMH of DM II, HTN, HLD and CKD IV who presents with right ankle pain after a fall at home and was found to have a closed fracture of the distal end of R fibula and tibia with dislocation. Status post repair of right fibula and tibial fracture on the of this month 07/11 Patient was seen and examined in medical floor She denies any symptoms as of today She has been getting intravenous iron infusion for anemia of chronic disease She is ready to be discharged tomorrow 07/12 The patient was seen and examined the medical floor He has been getting intravenous iron infusion and also will get 1 unit of blood transfusion today Generally weak and has been waiting for placement 07/13 Has been feeling a lot better following blood transfusion Denies any symptoms today Will be discharged 07/14 Denies any symptoms and remains stable No bed available until Saturday 07/15 Remains stable and now waiting for placement 07/16 Denies any new symptoms Going to go to [facility] this afternoon Physical Exam 2 Vital Signs (Past 24 Hours): Last Vital Signs Temp 36.7 C 07/16/18 09:56 Pulse 75 07/16/18 09:56 Resp 18 07/16/18 09:56 BP 153/76 H 07/16/18 09:56 Pulse Ox 97 07/16/18 09:56 Physical Exam: No apparent distress at rest Constitutional: WD/WN, vitals as above Eyes: PERRL, conjunctivae normal, anicteric sclerae ENMT: external ear and nose normal, oropharynx normal Respiratory: normal respiratory effort; no respiratory distress, no labored breathing and does not use accessory muscles Auscultation: + diminished lung sounds; no crackles and no wheezes Cardiovascular: Rate/Rhythm: regular rate and regular rhythm Heart Sounds: normal S1 and normal S2; no murmur Gastrointestinal (Abdomen): Inspection/Auscultation: abdomen normal to inspection and normal bowel sounds Musculoskeletal: Minimal pain involving the left leg Psychiatric: A+Ox3, euthymic affect Results & Data Laboratory Results Short CBC 07/16/18 Range/Units 05:46 WBC 9.79 (4.8-10.8) K/uL Hgb 8.7 L (12.0-16.0) g/dL Hct 26.5 L (37-47) % Plt Count 293 (130-400) K/uL BMP 07/16/18 05:46 Sodium 143 Potassium 4.6 Chloride 112 H Carbon Dioxide 23 BUN 98 H Creatinine 3.22 H Glucose 104 H Calcium 8.0 L Medications Administered Current Inpatient Medications Acetaminophen (Tylenol) 1,000 mg PO Q8H PRN PRN Reason: Pain Stop: 08/06/18 11:56 Last Admin: 07/15/18 21:10 Dose: 1,000 mg Amlodipine Besylate (Norvasc) 5 mg PO BID [facility] Stop: 08/08/18 20:59 Last Admin: 07/16/18 07:41 Dose: 5 mg Aspirin (Ecotrin Ectab) 81 mg PO DAILY [facility] Stop: 08/08/18 08:59 Last Admin: 07/16/18 07:42 Dose: 81 mg Carvedilol (Coreg) 6.25 mg PO BID [facility] Stop: 08/08/18 20:59 Last Admin: 07/16/18 07:42 Dose: 6.25 mg Dextrose (Dextrose 50%) 25 - 50 ml IV UD PRN; Protocol PRN Reason: Hypoglycemia Protocol Stop: 08/06/18 12:27 Dorzolamide/Timolol (Cosopt) 1 drops OPB BID [facility] Stop: 08/08/18 20:59 Last Admin: 07/16/18 07:43 Dose: 1 drops Furosemide (Lasix) 40 mg PO BID17 [facility] Stop: 08/08/18 20:59 Last Admin: 07/16/18 07:43 Dose: 40 mg Glucagon (Glucagen) 1 mg SQ UD PRN; Protocol PRN Reason: Hypoglycemia Protocol Stop: 08/06/18 12:27 Glucose (Glucose 40%) 15 - 30 gm PO UD PRN; Protocol PRN Reason: Hypoglycemia Protocol Stop: 08/06/18 12:27 Glucose (Dex4 Glucose) 4 - 8 tabs PO UD PRN; Protocol PRN Reason: Hypoglycemia Protocol Stop: 08/06/18 12:27 Hydralazine HCl (Apresoline) 10 mg PO Q6H PRN PRN Reason: Hypertension Stop: 08/08/18 19:25 Sodium Chloride (Nss 250ml) 250 mls @ 15 mls/hr IV .[id number] PRN PRN Reason: For Transfusion Stop: 08/11/18 11:28 Insulin Aspart (Novolog Flexpen) 0 units SC ACHS [facility]; Protocol Stop: 08/08/18 13:29 Last Admin: 07/16/18 13:01 Dose: 6 units Insulin Glargine (Lantus Solostar Pen) 38 units SQ QAM [facility] Stop: 08/13/18 08:59 Last Admin: 07/16/18 07:46 Dose: 38 units Miscellaneous (Carbohydrates For Hypoglycemia) 15 - 30 gm PO UD PRN PRN Reason: Hypoglycemia Treatment Stop: 08/06/18 12:27 Miscellaneous Information (Consult Glycemic Management Pharmacy) 1 ea N/A UD PRN; Protocol PRN Reason: Consult Stop: 08/08/18 13:02 Ondansetron HCl (Zofran) 4 mg IV Q6H PRN PRN Reason: Nausea Stop: 08/06/18 12:27 Vitamin D (Vitamin D3) 4,000 units PO DAILY [facility] Stop: 08/09/18 08:59 Last Admin: 07/16/18 07:41 Dose: 4,000 units _ (1) Closed fracture of distal end of right fibula and tibia Encounter type: Fracture healing:
--- NOTE | 2018-07-17 08:59 | Discharge Summary ---
Date of Service July 17, 2018 Admission HPI Per Admitting Provider This is a 63-year-old female with a PMH of DM II, HTN, HLD and CKD IV who presents with right ankle pain after a fall at home. Patient was walking in her apartment when her shoe got caught in the carpet and she fell to the floor, twisting her right leg in the process. Noted immediate pain and deformity to her right ankle, so she came to the ED for further evaluation. Endorses 5/10 constant pain that is exacerbated by movement. Patient has history of diabetic neuropathy and has decreased sensation in lower extremities. Denies any head trauma or loss of consciousness from fall. Has history of CKD [address] Kincaid of nephrology in the past. Denies any history of NV , CHF or DVT/PE. Lives in an apartment by herself that has stairs. Denies any fever, chills, lightheadedness, headache, chest pain, palpitations, shortness of breath, nausea, vomiting, abdominal pain, dysuria, diarrhea or constipation. [id number] is at bedside. Admission Exam Per Admitting Provider Vital Signs (Past 24 Hours): Last Vital Signs Temp 37 C 07/07/18 08:57 Pulse 69 07/07/18 10:30 Resp 17 07/07/18 10:30 BP 178/84 H 07/07/18 10:30 Pulse Ox 97 07/07/18 10:30 Physical Exam: General Appearance: WD/WN, no apparent distress, resting comfortably Head: normocephalic, atraumatic Eyes: normal inspection, PERRL, EOMI ENT: hearing grossly normal, pharynx normal (dry mucous membranes) Neck: supple, no JVD, no adenopathy Respiratory/Chest: lungs clear to auscultation. No wheezes, rales or rhonci. No respiratory distress or accessory muscle use Cardiovascular: regular rate, rhythm, no murmur, normal peripheral pulses Abdomen/GI: normal bowel sounds, soft, non-tender to palpation Extremities/Musculoskelatal: R leg with wrap in place from foot up to knee. Normal inspection of left lower extremity, no calf tenderness, normal capillary refill, no pedal edema. Neurologic/Psych: alert, normal mood/affect, oriented x 3 Skin: normal color, warm/dry Principal Diagnosis Closed fracture of distal end of right tibia and fibula Anemia of chronic disease Obesity with BMI of 34 Discharge Exam Constitutional WD/WN, vitals as above Eyes PERRL, conjunctivae normal, anicteric sclerae ENMT external ear and nose normal, oropharynx normal Respiratory normal respiratory effort; no respiratory distress, no labored breathing and does not use accessory muscles Auscultation: + diminished lung sounds; no crackles and no wheezes Cardiovascular Rate/Rhythm: regular rate and regular rhythm Heart Sounds: normal S1 and normal S2; no murmur Gastrointestinal (Abdomen) Inspection/Auscultation: abdomen normal to inspection and normal bowel sounds Psychiatric A+Ox3, euthymic affect Discharge Data Allergies Allergy/AdvReac Type Severity Reaction Status Date / Time No Known Allergies Allergy Unknown Unverified 07/07/18 10:06 Consultations 07/07/18 10:06 ED Decision to Admit Stat 07/07/18 12:28 Consult Case Management - Discharge Planning Routine Consult Orthopedic Surgery Routine 07/08/18 07:11 Consult Nephrology Routine 07/09/18 12:47 Consult Case Management - Discharge Planning Routine Procedures Performed Operation Date: 07/08/18 09:30 Actual Procedures p Open Reduction Internal Fixation Ankle, deltoid ligament repair, synovitic fixation (Right) - Artem Acharya, Ordered Studies 07/07/18 09:33 CT ankle RT wo con Stat 07/08/18 10:00 FL ankle RT min 3V RTN Routine FL fluoroscopy <1hr Routine 07/08/18 10:17 US - OR guided needle placemen Routine Hospital Course (1) Closed fracture of distal end of right fibula and tibia: Closed fracture of distal end of right fibula and tibia: Successful closed reduction performed in ED Dr Acharya took the patient to the OR on 07/08, see procedure below Status post open reduction internal fixation right trimalleolar ankle fracture dislocation Management as per orthopedic sounds PT/OT with appropriate fall precaution DVT Prophylaxis Per Surgery Protocol Medically stable to be transferred for rehab Awaiting for bed Will be transferred to skilled care facility on Monday Will go to [facility] this afternoon Chronic anemia secondary to chronic kidney disease Complicated by iron deficiency Hemoglobin noted to be 7.1 this morning Has been getting intravenous iron infusion Will give 1 unit of blood transfusion Likely to be discharged tomorrow Hemoglobin is 8.4 today following 1 unit of blood transfusion We will check CBC and PRP tomorrow Hemoglobin is 8.7 on 07/16 Acute on chronic kidney disease stage IV Chronic anemia secondary to chronic kidney disease Appreciate nephrology input and recommendation Hemoglobin around 7.4 Has been getting iron infusion Likely to be discharged tomorrow Creatinine 3.44 as of today, 07/13 We will check creatinine tomorrow-3.22 remains stable Type 2 diabetes mellitus: controlled now Chronic kidney disease (CKD), stage IV (severe): H/o diabetic nephropathy. Has followed with Dr. Kincaid in the past Cr of 3 today (baseline Cr mid-high 2s) On Lasix Hypertension: BP Meds adjusted Dyslipidemia: No longer taking Lipitor Directed to follow up with PCP to discuss medication for HTN, HLD DVT Ppx: LLE SCD Code status: FULL PCP: Bruce Bronson Dispo: Admitted to med/surg. Discharge to SNF. Likely discharge on Monday when there is a bed for her We will go to [facility] this afternoon Total Time Total Time Spent Total Time Spent (In Minutes): 35 minutes Total Time Includes: Examination of the Patient, Discharge Planning, Medication Reconciliation and 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 With Other Providers Discharge Plan Discharge Items Patient Disposition: Transfer Residential Fac Reason For Visit: FALL WITH TIB/FIB FRACTURE Discharge Diagnosis: Closed fracture of distal end of right tibia and fibula Anemia of chronic disease Obesity with BMI of 34 Tib-fib fracture CKD 4 Diabetes type 2 Diabetic neuropathy Hypertension Dyslipidemia Depression Condition: Good Discharge Goals: Improve function Activity: As commented below Activity Comment: Nonweightbearing right lower extremity until cleared by Ortho Lifting: None Bathing: No limitations and Keep incision dry Sexual Activity: Wait until after follow-up appointment Exercise/Sports: None Driving/Machine Use Comment: Not until cleared by orthopedics Weightbearing: Left weightbearing and Right non-weightbearing Non-emergency contact: Primary Care Provider and Surgeon Call non-emergency contact if: you have any medication questions, your symptoms worsen and your pain is worsening Follow-up/Referrals: Ariana Kincaid MD, PhD [Physician] - (2-3 weeks) Artem Acharya DO [Surgeon] - (As directed by Dr. Acharya the orthopedic surgeon) Melissa Bronson DO [Primary Care Provider] - 07/20/18 10:05 am (Your appointment is with Dr. Faye. Dr. Haines is not available) Diet: Carb Consistent or DM2 and Heart Healthy Addtl Provider Instructions: Postop care [facility] ANKLE FRACTURE ACTIVITY RECOMMENDATIONS: * You are to remain non weightbearing on your ankle for at least 6 weeks. SPECIAL CARE INSTRUCTIONS: * Some drainage onto the dressing is normal and is no cause for alarm. * Some swelling is natural especially after walking. When resting, keep your foot elevated above the level of your heart. * Call the doctor's office at if you notice increased drainage, fever over 101 degrees F. or severe constant pain. BANDAGE: * Leave bandage/cast in place unless otherwise directed. * Keep bandage/cast dry at all times. FOLLOW UP VISIT: If appointment is not already scheduled: Please call [facility] [place] to make a follow-up appointment after your surgery at . Prescriptions: New carvedilol 6.25 mg Tablet 6.25 mg PO BID Qty: 30 RF: 0 amlodipine [Norvasc] 5 mg Tablet 5 mg PO DAILY Qty: 30 RF: 0 aspirin [Ecotrin Low Strength] 81 mg Tablet,Delayed Release (Dr/Ec) 81 mg PO BID Qty: 60 RF: 0 dorzolamide-timolol 22.3-6.8 mg/mL Drops 1 drp OPB BID Qty: 10 RF: 0 acetaminophen [Tylenol Extra Strength] 500 mg tablet 500 mg PO Q4H PRN (Reason: fever or pain) Qty: 90 RF: 0 oxycodone 5 mg tablet 5 mg PO Q4H PRN (Reason: pain) Qty: 20 RF: 0 Continue furosemide 40 mg tablet 40 mg PO BID RF: 0 insulin glargine 100 unit/mL solution 30 units subcut QAM RF: 0 coenzyme Q10 [CoQ-10] 100 mg Capsule 100 mg PO DAILY RF: 0 cholecalciferol (vitamin D3) [Vitamin D3] 2,000 unit Capsule 4,000 unit PO DAILY RF: 0 Discontinued aspirin 81 mg tablet,delayed release (DR/EC) 81 mg PO DAILY RF: 0 Stand-Alone Forms: [facility] Discharge Orders: Discharge Order (Routine); Ordered 07/10/18 Ordered By: Tyler Tineo Skilled Items Patient informed of condition?: Yes DNR: No Discharge Level of Care: Skilled Communicable Disease: No Discharge Prognosis: Improving Admission Data Admit Date/Time: 07/07/18 11:13 Attending Provider: Emmanuel Horton Admit Provider: Tyler Tineo Primary Care Provider: Melissa Bronson Other Providers: Tyler Tineo ; Artem Acharya ; Ariana Kincaid Service: Medical Other Interventions: Discharge Summary Assessment (RN) Last Done: 07/16/18 09:56 DC Date/Time DO NOT enter until pt leaves facility: 07/16/18 13:47
--- NOTE | 2018-07-18 12:49 | Coding Query ---
CODING QUERY To promote full compliance with coding requirements relating to patient care, provider participation is requested in all cases of water proofer uncertainty. Please assist us with the question(s) below: Coding Question: "Acute on chronic kidney disease" and "ANETTE" were both documented throughout the record, unfortunately "ANETTE" is not a valid abbreviation, can you please clarify below to the best of your knowledge-thank you so much for your help! ( + ) Acute Kidney Injury, present on admission ( ) Acute Kidney Injury, NOT present on admission ( ) Acute Kidney Insufficiency, present on admission ( ) Acute Kidney Insufficiency, NOT present on admission ( ) Other (Specify): Thanks again! Principal Diagnosis: "that condition established after study, to be chiefly responsible for occasioning the admission of the patient to the hospital for care." Co-Existing Principal Diagnosis: "when two or more diagnoses equally meet the criteria for principal diagnosis as determined by the circumstances of admission, diagnostic work up, and/or therapy provided, and the Alphabetic Index, Tabular List, or another coding guideline does not provide sequencing direction, any one of the diagnoses may be sequenced first." "When the physician has documented what appears to be a current diagnosis in the body of the record, but has not included the diagnosis in the final diagnostic statement, the physician should be asked whether the diagnosis should be added." (Source Coding [facility] 2 QTR90. p3-4) Documented in Progress note . CRAIG
== END 2018-07-16 13:47 | DRG 493 ==
LOC: ED 07:40 → 3E 11:13 → SUATTDRO 11:13 → 3E 12:12

== ENCOUNTER 2019-05-12 16:54 | Inpatient (IN) ==
[2019-05-12] MEDS ORDERED: SODIUM CHLORIDE 0.9% 500 ML IV SCH (17:30)
--- NOTE | 2019-05-12 17:48 | XRay Report ---
XR foot RT min 3V routine CLINICAL HISTORY: infected R diabetic foot ulcer COMPARISON: CT of the right ankle July 07, 2018. Right ankle radiographs July 08, 2018. FINDINGS: Right tibial and fibular internal fixation is partially imaged. Tarsometatarsal joints are intact. Note is made of a suspected wound along the lateral aspect of the right fifth metatarsal. Th ere is subtle lucency and cortical irregularity of the lateral base of the right fifth metatarsal. So ft tissue swelling of the right foot is noted. There is no acute fracture. There are no expected radi opaque foreign bodies. IMPRESSION: Subtle lucency and cortical irregularity of the lateral base of the right fifth metatarsa l with overlying wound. These findings are suspicious for osteomyelitis of the base of the right fift h metatarsal. ACT 112: Negative or not required by law. Electronically signed by: Go Romeo M.D. 05/12/2019 5:46 PM
[2019-05-12 17:52] LABS: Hematocrit (blood only) 28.8 % (37-47); Hemoglobin 9.4 g/dL (12.0-16.0); Mean Corpuscular Hgb Conc 32.6 g/dL (32-36); Mean Platelet Volume 9.1 fL (7.4-10.4); Platelet Count 288 K/uL (130-400); RDW Standard Deviation 43.3 fL (36.4-46.3); Red Blood Count 3.13 M/uL (4.2-5.4); White Blood Count 8.03 K/uL (4.8-10.8)
[2019-05-12] MEDS ORDERED: PIPERACILL/TAZOBAC CONSULT ACTIVE PRN (18:09)
[2019-05-12] MEDS ORDERED: PIPERACILLIN/TAZOBACTAM 4.5 GM/120 ML BAG IV ONE (18:09)
[2019-05-12] MEDS ORDERED: VANCOMYCIN CONSULT ACTIVE PRN (18:09)
[2019-05-12] MEDS ORDERED: VANCOMYCIN HCL 1,500 MG in SODIUM CHLORIDE 0.9% 500 ML IV ONE (18:09)
[2019-05-12 18:10] LABS: Alanine Aminotransferase 28 U/L (12-78); Albumin Level 3.2 gm/dl (3.4-5.0); Aspartate Aminotransferase 27 U/L (15-37); BUN Creatinine Ratio 18.6 (10-20); Blood Urea Nitrogen 56 mg/dl (7-18); Calcium 8.1 mg/dl (8.5-10.1); Carbon Dioxide 24 mmol/L (21-32); Chloride 110 mmol/L (98-107); Est GFR (African American) 18.1; Est GFR (Non-African American) 15.6; Glucose 192 mg/dl (70-99); Sodium 140 mmol/L (136-145)
[2019-05-12 18:15] LABS: Albumin Globulin Ratio 0.8 (0.9-2); Alkaline Phosphatase 94 U/L (45-117); Bilirubin,Total 0.2 mg/dl (0.2-1); C Reactive Protein 0.55 mg/dl (0-0.29); Globulin 4.2 gm/dl (2.5-4.0); Total Protein 7.4 gm/dl (6.4-8.2)
[2019-05-12 18:20] LABS: Basophils # (auto) 0.03 K/uL (0-0.2); Basophils % (auto) 0.4 %; Eosinophils # (auto) 0.29 K/uL (0-0.5); Eosinophils % (auto) 3.6 %; Immature Granulocytes # (auto) 0.02 K/uL (0.00-0.02); Immature Granulocytes % (auto) 0.2 %; Lymphocytes # (auto) 1.59 K/uL (1.2-3.4); Lymphocytes % (auto) 19.8 %; Monocytes # (auto) 0.49 K/uL (0.11-0.59); Monocytes % (auto) 6.1 %; Neutrophils # (auto) 5.61 K/uL (1.4-6.5); Neutrophils % (auto) 69.9 %
[2019-05-12] MEDS ORDERED: ATORVASTATIN 10 MG PO SCH (21:01)
[2019-05-12] MEDS ORDERED: ACETAMINOPHEN 325 MG TAB PO PRN (21:01)
[2019-05-12] MEDS ORDERED: POLYETHYLENE (MIRALAX) 17 GM PACK PO PRN (21:01)
[2019-05-12] MEDS ORDERED: ONDANSETRON INJ 2 MG/ML 2 ML VIAL IV PRN (21:01)
[2019-05-12] MEDS ORDERED: CARBOHYDRATES FOR HYPOGLYCEMIA PO PRN (21:30)
[2019-05-12] MEDS ORDERED: GLUCOSE 40% GEL 15 GM TUBE PO PRN (21:30)
[2019-05-12] MEDS ORDERED: GLUCOSE 10 TABS/TUBE PO PRN (21:30)
[2019-05-12] MEDS ORDERED: GLUCAGON FOR INJ 1 MG VIAL IM PRN (21:30)
[2019-05-12] MEDS ORDERED: DEXTROSE 50% 50 ML SYRINGE IV PRN (21:30)
--- NOTE | 2019-05-12 21:42 | History and Physical Report ---
DATE OF ADMISSION: 05/12/2019 CHIEF COMPLAINT: Right foot infection. HISTORY OF PRESENT ILLNESS: A 64-year-old female with past medical history significant for diabetes, proliferative diabetic retinopathy, diabetic polyneuropathy, hypertension, vitamin D deficiency, posterior capsular opacification, history of TIAs and depression who lives alone, comes because of right foot infection. The patient in June of 2018, had a fall at home and right ankle pain and was found to have closed fracture of the distal end of right fibula and tibia, successful closed reduction in ER and also Ortho did open reduction internal fixation of right trimalleolar ankle fracture dislocation. She went to rehab and she did fine and since then she is on boots because she has some imbalance .Patient says because of neuropathy she could not feel anything in her feet. Couple of weeks ago she saw a bump in the lateral aspect of the right foot and since last Monday/Monday it is draining foul smelling fluid.She is not feeling anything but as its not getting better she came to the ER and x-ray showing possible osteomyelitis. The patient denies any fever, chills, no pain. Currently resting comfortably and hemodynamically stable. Denies any headache, has some blurred visions because of diabetic retinopathy. Following with ophthalmology. Denies any earache, no runny nose, no sore throat, no cough, no difficulty swallowing. Appetite is okay. Sleeps okay. No night sweats. She says she gained 20 pounds in last 10 months because of the ankle surgery and she is not ambulating much. Denies any chest pain, no shortness of breath, no nausea, no vomiting, no abdominal pain, no diarrhea, no constipation, no black stools or blood in the stools. No burning micturition, no hematuria. She takes Lasix and if she doesn't take it she says her legs get swollen. ALLERGIES: No known drug allergies. PAST MEDICAL HISTORY: As mentioned above. PAST SURGICAL HISTORY: Injection of eye drug, induced by D&C, removal of inner eye fluid, cataract surgeries. MEDICATIONS: The patient is on Basaglar insulin 30 units under skin at bedtime, vitamin C 100 mg p.o. daily, multivitamin with minerals 1 tablet daily, amlodipine 5 mg p.o. daily, aspirin 81 mg p.o. b.i.d., atorvastatin 10 mg p.o. daily, Coreg 6.25 mg p.o. b.i.d., Lasix 40 mg p.o. b.i.d., Tylenol 500 mg p.r.n., Coenzyme Q10 100mg daily, vitamin D 4000 units daily. FAMILY HISTORY: Significant for sister with ovarian cancer. Brother has diabetes. Sister has diabetes. Maternal grandfather has heart disorder. Brother has hypertension. Sister has hypertension. Maternal grandmother has stroke. SOCIAL HISTORY: Lives alone. No smoking, no alcohol, no drug use. REVIEW OF SYMPTOMS: As per HPI. Rest of review of systems negative. PHYSICAL EXAMINATION: GENERAL: The patient is of moderate build, not in acute distress. VITAL SIGNS: Temperature 36.6, pulse 78, respiratory rate 18, blood pressure 180/55, oxygen 96% room air. HEENT: No pallor, no icterus. Pupils equal, round, reactive. NECK: No JVD, no neck masses, no carotid bruit. CARDIOVASCULAR: S1, S2 heard, regular rate and rhythm, no murmur, no gallop. RESPIRATORY SYSTEM: Normal AP diameter. No accessory muscle use. No wheezing, no crackles. ABDOMEN: Soft, bowel sounds present, nontender. No distention. CENTRAL NERVOUS SYSTEM: Cranial nerves II-XII grossly intact, nonfocal. EXTREMITIES: Right foot open wound 2 x 3 cm, mild drainage and mild erythema surrounding the wound on the lateral aspect of the foot. LABORATORY DATA: WBC 8, hemoglobin 9.4, hematocrit 28.8, platelets 288. Sodium 140, potassium 4, chloride 110, bicarbonate 24, BUN 56, creatinine 3.02, serum glucose 182, lactate 1.1, calcium 8.1, total bilirubin 0.2, AST 27, ALT 28, alkaline phosphatase 94. C-reactive protein 0.55. EKG shows normal sinus rhythm with rate of 70, nonspecific ST-T abnormalities, no acute ST changes seen. Right foot x-ray, subtle lucency and cortical irregularity of lateral base of the right fifth metatarsal with overlying wound. These findings are suspicious for osteomyelitis of the base of the right fifth metatarsal. ASSESSMENT AND PLAN: This is a 64-year-old female who presents with right foot lateral aspect infection and x-ray shows possible osteomyelitis. 1. Right foot infection on the lateral aspect. X-ray shows possible osteomyelitis. We will get an MRI scan. ER started on IV vancomycin and Zosyn, which we will continue. Follow the blood cultures, wound cultures. We will consult wound care and also ID in morning and monitor in the medical floor. 2. Diabetes. She says she is only on long acting insulin, we will follow the HbA1c levels if high will l consult diabetic education. 3. History of hypertension, on Coreg and amlodipine. We will monitor the blood pressure. 4. History of lower extremity edema. The patient is on Lasix twice daily. There is no echo report , possibly from CKD/venous insufficiency, will monitor. 5. Vitamin D deficiency, continue vitamin supplements. 6. History of transient ischemic attacks, on aspirin, statin. 7. ANETTE on CKD stage 4. Baseline CR 2.6. Presented with CR 3.0 gentle fluids. Follow labs. 8. Deep venous thrombosis prophylaxis, sequential compression devices for now. 9. Disposition: Close monitoring in the medical floor. Level 1 full code. Social service to help with discharge planning. DEENAD
[2019-05-12] MEDS: FUROSEMIDE 40 MG TAB PO SCH (21:54)
[2019-05-12] MEDS: INSULIN ASPART 100 UNITS/ML 3 ML PEN SC SCH (21:59)
[2019-05-12] MEDS: carvediloL 6.25 MG TAB PO SCH (23:29)
[2019-05-12] MEDS: PIPERACILLIN/TAZOBACTAM 3.375 GM in DEXTROSE 5% 100 ML IV SCH (23:29)
[2019-05-13 00:02] LABS: Appearance Urine Clear (Clear); Bacteria Urine Automated Negative (Negative); Bilirubin Urine Negative (Negative); Blood Urine 2+ (Negative); Color Urine Yellow; Epithelial Cell Urine Auto >30 /lpf (0-5); Glucose Urine UA 2+ (Negative); Ketones Urine Negative (Negative); Leukocyte Esterase Urine Trace (Negative); Nitrite Urine Negative (Negative); Protein Urine 3+ (Negative); Specific Gravity Urine 1.011 (1.000-1.030); Urobilinogen Urine Negative (Negative); WBC Urine Automated >30 /hpf (0-5); pH Urine 6.5 (4.5-7.5)
--- NOTE | 2019-05-13 00:05 | Emergency Department Note ---
Entered by Nancy Oh acting as a scribe for ED Provider Note CHIEF COMPLAINT: Right foot infection HISTORY OF PRESENT ILLNESS: The patient is a 64 year old female who presents to the Emergency Room with complaints of a right foot infection that she first noticed 5 days ago. The patient notes that she first saw it while she was getting out of the shower. The patient states that she noticed a bump on her right foot several weeks ago and she thinks that it may have popped and gotten infected. The patient states that she has been diabetic for 10 years and takes insulin shots to control her sugars. The patient states that she also suffers from neuropathy in all of her extremities. The patient states that her sugars have been good lately and were 94 and 104 in the past 2 days respectively. The patient notes that she also has hardware in her right foot from a surgery several years ago. Pt denies LOC, headache, fevers, chills, diaphoresis, visual changes, neck pain, chest pain, breathing difficulties, nausea, vomiting, abdominal pain, back pain, melena, hematochezia, urinary symptoms, numbness, weakness, lymphadenopathy, rash, or other complaints. REVIEW OF SYSTEMS: See HPI for pertinent positives and negatives. A total of ten systems were reviewed and were otherwise negative. PMHx/PSHx: Type 2 diabetes mellitus, diabetic neuropathy, CKD stage IV, HTN, dyslipidemia, appendectomy, right foot surgery. SOCIAL HISTORY: Patient is single and lives at home alone. PHYSICAL EXAM: GENERAL: Awake, alert, well-appearing, in no distress HENT: Normocephalic, atraumatic. Oropharynx unremarkable. EYES: PERRL. Normal conjunctiva. Sclera non-icteric. NECK: Inspection normal. Non-tender. Supple. No nuchal rigidity. FROM. No masses. RESPIRATORY: Clear to auscultation. No wheezes. No rales. Normal respiratory effort. CARDIAC: Normal rate. Normal rhythm. No murmurs. No rubs. Extremities warm and well perfused. Pulses equal. No JVD. GI: Soft, non-distended. No tenderness to palpation. No rebound or guarding. No masses. RECTAL: Deferred. MUSCULOSKELETAL: Atraumatic. Chest examination reveals no tenderness. The back is symmetrical on inspection without obvious abnormality. There is no CVA tenderness to palpation. No joint edema. LOWER EXTREMITIES: Calves are equal size bilaterally and non-tender. No edema. Large ulcer on lateral right foot with surrounding redness. NEURO: Normal sensorium. No sensory or motor deficits noted. SKIN: No rash or jaundice noted. EMERGENCY DEPARTMENT COURSE: 170: Past medical records reviewed. The patient was evaluated in room A10, and a complete history and physical examination were performed. 182: I reevaluated the patient and she is resting comfortably. I updated her on the test results and plan for admission. She verbally agrees and understands. 184: I discussed the patient's case with Dr. Wily Ames, Hospitalist. He will evaluate the patient for further management. MEDICAL DECISION MAKING: A10 Triage Nursing notes reviewed and agree them. The patient's history was concerning for swelling and redness of the skin on the foot. Differential diagnosis: Etiologies such as infected diabetic foot ulcer, osteomyelitis, cellulitis, DVT, necrotizing fasciitis, abscess, MRSA infection, dermatitis, drug eruption, as well as others were entertained.. Physical examination: The physical examination was consistent with an infected diabetic foot ulcer and cellulitis ER treatment provided: Patient declined analgesia IV Zosyn IV vancomycin On reassessment the patient felt better. Diagnostics interpreted by me: The labs revealed an unremarkable CBC however the patient's inflammatory markers were elevated. Renal panel reveals renal insufficiency as well as hyperglycemia. Imaging studies: X-ray imaging of the right foot is concerning for possible osteomyelitis of the right fifth metatarsal Consultation: A consultation was placed with the hospitalist. The case was discussed and diagnostics were reviewed. The patient was evaluated in the ER for further treatment. IMPRESSION: Osteomyelitis Type 2 diabetes mellitus with right diabetic foot infection Anemia PLAN: Being Evaluated by Hospitalist The scribe's documentation has been prepared under my direction and personally reviewed by me in its entirety. I confirm that the note above accurately reflects all work, treatment, procedures, and medical decision making performed by me. 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 Beliefs That Will Affect Care: None marital status: Single Current Living Situation: Alone Feels Safe at Home: Yes Safety Concerns: Feels Safe At This Time Smoking Status: Never smoker Second Hand Exposure: No ; Hx Alcohol Use: No Hx Substance Use: No Results & Data Vital Signs Vital Signs - 24 hr 05/12/19 16:57 05/12/19 17:45 05/12/19 17:54 Temperature 36.6 C Temperature Source Oral Pulse Rate 77 74 73 Respiratory Rate 20 17 16 Blood Pressure 163/66 H 187/75 H Blood Pressure Mean 98 99 Blood Pressure Position Sitting Pulse Oximetry 96 Sepsis Recent Fever Within 48 Hours No Sepsis New/Unexplained Change in Mental Status No Sepsis Action Taken by Nursing No Action Required 05/12/19 18:00 05/12/19 18:30 05/12/19 19:00 Temperature Temperature Source Pulse Rate 75 77 73 Respiratory Rate 18 20 17 Blood Pressure 152/66 H 170/55 H 169/66 H Blood Pressure Mean 94 108 120 Blood Pressure Position Pulse Oximetry Sepsis Recent Fever Within 48 Hours Sepsis New/Unexplained Change in Mental Status Sepsis Action Taken by Nursing 05/12/19 19:01 05/12/19 19:30 Temperature Temperature Source Pulse Rate 73 78 Respiratory Rate 14 18 Blood Pressure 180/55 H Blood Pressure Mean 111 Blood Pressure Position Pulse Oximetry Sepsis Recent Fever Within 48 Hours Sepsis New/Unexplained Change in Mental Status Sepsis Action Taken by [facility] Medications Current Medication List: was personally reviewed by me Laboratory Data Attestation: I reviewed the patient's lab results. Result diagrams: 05/12/19 17:40 05/12/19 17:39 Lab Results 05/12/19 05/12/19 05/12/19 Range/Units 17:39 17:39 17:40 WBC (4.8-10.8) K/uL RBC (4.2-5.4) M/uL Hgb (12.0-16.0) g/dL Hct (37-47) % MCV (80-100) fL MCH (25-34) pg MCHC (32-36) g/dL RDW Std Deviation (36.4-46.3) fL RDW Coeff of Rico (11.5-14.5) % Plt Count (130-400) K/uL MPV (7.4-10.4) fL Immature Gran % (Auto) % Neut % (Auto) % Lymph % (Auto) % [place] % (Auto) % Eos % (Auto) % Baso % (Auto) % Immature Gran # (Auto) (0.00-0.02) K/uL Neut # (Auto) (1.4-6.5) K/uL Lymph # (Auto) (1.2-3.4) K/uL [place] # (Auto) (0.11-0.59) K/uL Eos # (Auto) (0-0.5) K/uL Baso # (Auto) (0-0.2) K/uL ESR 48 H (0-21) mm/hr Sodium 140 (136-145) mmol/L Potassium 4.0 (3.5-5.1) mmol/L Chloride 110 H (98-107) mmol/L Carbon Dioxide 24 (21-32) mmol/L Anion Gap 6.0 (3-11) BUN 56 H (7-18) mg/dl Creatinine 3.02 H (0.6-1.2) mg/dl Est Cr Clr Drug Dosing Not Reportable Est GFR ( Amer) 18.1 Est GFR (Non-Af Amer) 15.6 BUN/Creatinine Ratio 18.6 (10-20) Glucose 192 H (70-99) mg/dl Lactate 1.1 (0.4-2.0) mmol/L Calcium 8.1 L (8.5-10.1) mg/dl Total Bilirubin 0.2 (0.2-1) mg/dl AST 27 (15-37) U/L ALT 28 (12-78) U/L Alkaline Phosphatase 94 (45-117) U/L C-Reactive Protein 0.55 H (0-0.29) mg/dl Total Protein 7.4 (6.4-8.2) gm/dl Albumin 3.2 L (3.4-5.0) gm/dl Globulin 4.2 H (2.5-4.0) gm/dl Albumin/Globulin Ratio 0.8 L (0.9-2) 05/12/19 Range/Units 17:40 WBC 8.03 (4.8-10.8) K/uL RBC 3.13 L (4.2-5.4) M/uL Hgb 9.4 L (12.0-16.0) g/dL Hct 28.8 L (37-47) % MCV 92.0 (80-100) fL MCH 30.0 (25-34) pg MCHC 32.6 (32-36) g/dL RDW Std Deviation 43.3 (36.4-46.3) fL RDW Coeff of Rico 13.0 (11.5-14.5) % Plt Count 288 (130-400) K/uL MPV 9.1 (7.4-10.4) fL Immature Gran % (Auto) 0.2 % Neut % (Auto) 69.9 % Lymph % (Auto) 19.8 % Childress % (Auto) 6.1 % Eos % (Auto) 3.6 % Baso % (Auto) 0.4 % Immature Gran # (Auto) 0.02 (0.00-0.02) K/uL Neut # (Auto) 5.61 (1.4-6.5) K/uL Lymph # (Auto) 1.59 (1.2-3.4) K/uL Child[place] # (Auto) 0.49 (0.11-0.59) K/uL Eos # (Auto) 0.29 (0-0.5) K/uL Baso # (Auto) 0.03 (0-0.2) K/uL ESR (0-21) mm/hr Sodium (136-145) mmol/L Potassium (3.5-5.1) mmol/L Chloride (98-107) mmol/L Carbon Dioxide (21-32) mmol/L Anion Gap (3-11) BUN (7-18) mg/dl Creatinine (0.6-1.2) mg/dl Est Cr Clr Drug Dosing Est GFR ( Amer) Est GFR (Non-Af Amer) BUN/Creatinine Ratio (10-20) Glucose (70-99) mg/dl Lactate (0.4-2.0) mmol/L Calcium (8.5-10.1) mg/dl Total Bilirubin (0.2-1) mg/dl AST (15-37) U/L ALT (12-78) U/L Alkaline Phosphatase (45-117) U/L C-Reactive Protein (0-0.29) mg/dl Total Protein (6.4-8.2) gm/dl Albumin (3.4-5.0) gm/dl Globulin (2.5-4.0) gm/dl Albumin/Globulin Ratio (0.9-2) Administered Medications Carvedilol (Coreg) 6.25 mg PO BID JOSE FRANCISCO Stop: 06/11/19 21:00 Last Admin: 05/12/19 23:29 Dose: Not Given Documented by: [id number] Furosemide (Lasix) 40 mg PO [id number] JOSE FRANCISCO Stop: 06/11/19 21:00 Last Admin: 05/12/19 21:54 Dose: 40 mg Documented by: [id number] Piperacillin Sod/Tazobactam (Sod 3.375 gm/ Dextrose) 115 mls @ 28.75 mls/hr IV Q8H [facility]; Protocol Stop: 05/23/19 00:00 Last Admin: 05/12/19 23:29 Dose: 28.8 mls/hr Documented by: [id number] Insulin Aspart (Novolog Flexpen) 0 units SC ACHS JOSE FRANCISCO Stop: 06/11/19 21:00 Last Admin: 05/12/19 21:59 Dose: 3 units Documented by: [id number] Cosigned by: [id number] Non-Formulary Medication (Atorvastatin) 10 mg PO HS [facility] Stop: 06/11/19 21:00 Last Admin: 05/12/19 21:50 Dose: Not Given Documented by: [id number] Discontinued Medications Sodium Chloride (Nss) 500 mls @ 999 mls/hr IV .Q31M JOSE FRANCISCO Stop: 05/12/19 18:00 Last Infusion: 05/12/19 18:15 Dose: 0 mls/hr Documented by: [id number] Admin: 05/12/19 17:47 Dose: 999 mls/hr Documented by: [id number] Piperacillin Sod/Tazobactam Sod (Zosyn) 4.5 gm in 120 mls @ 240 mls/hr IV NOW ONE Stop: 05/12/19 18:38 Last Infusion: 05/12/19 18:50 Dose: 0 mls/hr Documented by: [id number] Admin: 05/12/19 18:13 Dose: 240 mls/hr Documented by: [id number] Vancomycin HCl 1,500 mg/ (Sodium Chloride) 530 mls @ 200 mls/hr IV NOW ONE Stop: 05/12/19 20:47 Last Infusion: 05/12/19 21:30 Dose: 0 mls/hr Documented by: [id number] Admin: 05/12/19 18:49 Dose: 200 mls/hr Documented by: [id number] Imaging Data Radiologist's Impression: Radiology results as stated below per my review and the radiologist's interpretation: XR foot RT min 3V routine CLINICAL HISTORY: infected R diabetic foot ulcer COMPARISON: CT of the right ankle July 07, 2018. Right ankle radiographs July 08, 2018. FINDINGS: Right tibial and fibular internal fixation is partially imaged. Tarsometatarsal joints are intact. Note is made of a suspected wound along the lateral aspect of the right fifth metatarsal. There is subtle lucency and cortical irregularity of the lateral base of the right fifth metatarsal. Soft tissue swelling of the right foot is noted. There is no acute fracture. There are no expected radiopaque foreign bodies. IMPRESSION: Subtle lucency and cortical irregularity of the lateral base of the right fifth metatarsal with overlying wound. These findings are suspicious for osteomyelitis of the base of the right fifth metatarsal. ACT 112: Negative or not required by law. Electronically signed by: Go Romeo M.D. 05/12/2019 5:46 PM ECG Data Attestation: I personally reviewed and interpreted this ECG as follows: Indication: + other (infection) Rate (beats per minute): 70 Rhythm: normal sinus ECG Intervals/blocks: + Normal QRS ECG [place]: + Normal ECG ST segments: + Nonspecific ST abnormalities; no ST depression and no ST elevation ECG Findings: no PACs and no PVCs Blood Pressure Blood Pressure Findings: Elevated blood pressure Blood Pressure Disposition: further management by hospitalist Discharge Plan Visit Data *Final* Discharge Date/Time: 05/12/19 20:04 Chief Complaint: Infection Stated Complaint: INFECTION IN FOOT ED Provider: Edson Seymour Discharge Problem: Osteomyelitis, Type 2 diabetes mellitus with right diabetic foot infection, Anemia Patient Disposition: Admitted As Inpatient Discharge Instructions Interventions: ED Discharge Assessment Last Done: 05/12/19 20:04 Discharge Problem: Osteomyelitis Qualifiers: Osteomyelitis type: unspecified type Osteomyelitis location: foot Laterality: right Qualified Code(s): M86.9 - Osteomyelitis, unspecified Anemia Qualifiers: Anemia type: unspecified type Qualified Code(s): D64.9 - Anemia, unspecified The scribe's documentation has been prepared under my direction and personally reviewed by me in its entirety. I confirm that the note above accurately reflects all work, treatment, procedures, and medical decision making performed by me.
[2019-05-13 06:31] LABS: Basophils # (auto) 0.02 K/uL (0-0.2); Basophils % (auto) 0.3 %; Eosinophils # (auto) 0.28 K/uL (0-0.5); Eosinophils % (auto) 3.7 %; Hematocrit (blood only) 28.9 % (37-47); Hemoglobin 9.3 g/dL (12.0-16.0); Immature Granulocytes # (auto) 0.02 K/uL (0.00-0.02); Immature Granulocytes % (auto) 0.3 %; Lymphocytes # (auto) 1.64 K/uL (1.2-3.4); Lymphocytes % (auto) 21.5 %; Mean Corpuscular Hemoglobin 29.8 pg (25-34); Mean Corpuscular Hgb Conc 32.2 g/dL (32-36); Mean Corpuscular Volume 92.6 fL (80-100); Monocytes # (auto) 0.51 K/uL (0.11-0.59); Monocytes % (auto) 6.7 %; Neutrophils # (auto) 5.15 K/uL (1.4-6.5); Neutrophils % (auto) 67.5 %; Platelet Count 292 K/uL (130-400); RDW Coefficient of Variation 13.1 % (11.5-14.5); RDW Standard Deviation 44.1 fL (36.4-46.3); Red Blood Count 3.12 M/uL (4.2-5.4); White Blood Count 7.62 K/uL (4.8-10.8)
[2019-05-13 07:13] LABS: BUN Creatinine Ratio 17.9 (10-20); Calcium 8.2 mg/dl (8.5-10.1); Creatinine Clr Calc Pharmacy 18.8 ml/min; Est GFR (African American) 18.3; Est GFR (Non-African American) 15.8; Magnesium 2.2 mg/dl (1.8-2.4)
[2019-05-13 07:31] LABS: Estimated Average Glucose 183 mg/dl
--- NOTE | 2019-05-13 07:39 | Magnetic Resonance Report ---
MR foot RT w/o con HISTORY: 64 years-old Female osteomyelitis? on xray. Non contrast study soft tissue ulcer of the lat eral forefoot with subtle cortical irregularity noted involving the lateral base of the fifth metatar ana COMPARISON: Right foot radiographs 05/12/2019 TECHNIQUE: Multiplanar multisequence MRI of the right foot was obtained without the use of IV contras t. FINDINGS: Motion degraded exam. There is a peripherally corticated erosion involving the lateral base of the fi fth proximal phalangeal metaphysis correlating with the finding seen on comparison radiographs which measures 9 mm in length (nicely seen on image 9 of series 11). To moderately increased T2 signal is n oted about the proximal fifth metatarsal, most pronounced in the proximal diaphyseal region, distal t o the erosion. A similar-appearing peripherally corticated erosion involves the volar aspect of the p roximal lateral cuboid which measures up to 6 mm in length (image 11 of series 11). Superficial to th e proximal fifth metatarsal erosion there is soft tissue thickening with possible ulcer. Mostly mild multifocal osteoarthritis throughout the imaged mid foot and forefoot. Artifact from hardware of the ankle is noted. There is diffuse subcutaneous edema with atrophy of the intrinsic musculature. Edema is noted within the musculature of the medial foot which may reflect innervation changes versus myosi tis. IMPRESSION: 1. Motion degraded exam. 2. Suggested skin ulcer of the lateral forefoot with peripherally corticated osseous erosions involvi ng the lateral base of the fifth metatarsal and lateral aspect of the distal cuboid with adjacent sof t tissue and bone marrow edema suspicious for areas of subacute to chronic osteomyelitis. 3. Diffuse subcutaneous edema of the foot may reflect cellulitis, venous stasis or lymphedema. ACT 112: Negative or not required by law. The above report was generated using voice recognition software. It may contain grammatical, syntax o r spelling errors. Electronically signed by: Giovanni Glass M.D. 05/13/2019 7:37 AM
[2019-05-13] MEDS: SODIUM CHLORIDE 0.9% 1000ML 1,000 ML IV SCH (07:44)
[2019-05-13] MEDS: PIPERACILLIN/TAZOBACTAM 3.375 GM in DEXTROSE 5% 100 ML IV SCH ×3 (08:46→23:47)
[2019-05-13] MEDS: CHOLECALCIFEROL 1,000 UNITS TAB PO SCH (08:47)
[2019-05-13] MEDS: ASPIRIN 81 MG ECTAB PO SCH (08:47)
[2019-05-13] MEDS: INSULIN ASPART 100 UNITS/ML 3 ML PEN SC SCH ×4 (08:49→21:18)
[2019-05-13] MEDS: AMLODIPINE BESYLATE 5 MG TAB PO SCH (08:50)
[2019-05-13] MEDS: FUROSEMIDE 40 MG TAB PO SCH (08:50)
[2019-05-13] MEDS: carvediloL 6.25 MG TAB PO SCH ×2 (08:50→20:23)
[2019-05-13] MEDS: INSULIN GLARGINE SOLOSTAR 100 UNITS/ML 3 ML PEN SQ SCH (08:51)
[2019-05-13] MEDS ORDERED: NON-FORMULARY MEDICATION (Coenzyme Q10 [Coq-10] 100 MG) PO SCH (09:00)
--- NOTE | 2019-05-13 09:06 | Pharmacy Report ---
Pharmacy Abx Initial Consult - Date of Service May 13, 2019 - Pharmacy Dosing Scope Date of Consult: 05/13/19 Consultation requested by: Dr. Moran Pharmacy is consulted to initiate vancomycin and Zosyn IV/PO dosing therapy, order appropriate labs and adjust drug dose/frequency. - Subjective The patient is a 64 year old F admitted on 05/12/19 19:33 with worsening of right foot infection. MRI shows subacute/chronic osteomyelitis. - Objective Height: 5 ft 3 in Weight: 78.9 kg Vital Signs (Past 12hrs): Vital Signs Temp Pulse Resp BP Pulse Ox 05/13/19 07:11 36.6 C 68 16 161/70 H 95 05/12/19 23:12 36.7 C 76 16 185/76 H 96 Lab Results (24hrs): Laboratory Tests (24 Hours) 05/13/19 05/13/19 05/13/19 06:14 06:14 06:14 WBC 7.62 Neut # (Auto) 5.15 ESR Creatinine 3.00 H Est Cr Clr Drug Dosing 18.8 C-Reactive Protein Random Vancomycin 22.0 05/12/19 05/12/19 05/12/19 17:40 17:39 17:39 WBC 8.03 Neut # (Auto) 5.61 ESR 48 H Creatinine 3.02 H Est Cr Clr Drug Dosing Not Reportable C-Reactive Protein 0.55 H Random Vancomycin Micro Results: 05/12/19 23:19 Urine Culture - Pending Urine,Clean Catch 05/12/19 18:02 Aerobic Blood Culture - Pending Blood Anaerobic Blood Culture - Pending 05/12/19 17:39 Aerobic Blood Culture - Pending Blood Anaerobic Blood Culture - Pending - Assessment & Plan Assessment 64 year old F admitted with osteomyelitis Plan vancomycin and Zosyn for treatment of osteomyelitis Vancomycin IV * Estimated PK Parameters: Vd 0.6 L/kg, Onel 0.04 hr-1, t1/2 17 hr (patient specific kinetics estimating peak of 32 mcg/mL with random of 22 approximately 9 hours later) * Loading dose: 1500 mg (20 mg/kg) * Maintenance dose: 1000 mg IV (12.6 mg/kg) every 18 hours * Goal trough level for osteomyelitis : 15 to 20 mcg/mL * Trough ordered for 05/14/19 prior to third dose in order to supervisor vat house scheduled dosing and prevent accumulation. Piperacillin/tazobactam * 4.5 g bolus administered over 30 minutes, then 3.375 g IV extended infusion every 8 hours for CrCl greater than 20 mL/min Pharmacy will continue to follow and will adjust dose/frequency as necessary. Thank you.
--- NOTE | 2019-05-13 10:04 | Infectious Disease Consult ---
Date of Consultation May 13, 2019 Assessment & Plan (1) Osteomyelitis: continue emperic abx, maintain vanco 15-20. wound culture. surgery eval. will need min 6 weeks IV abx with weekly cbc,cmp, esr, while on abx. History of Present Illness Attending Physician: Sheldon Hurst MD pt admitted with pain and purulent drainage from right ankle. had fall and ORIF in 06/2018, was doing well until recenlty, denies trauma. no pain currently but states she has little feeling in foot. no wound culture obtained. afebrile since admission, was given vanco and zosyn, remains on this, vanco level today 23. ESR 48, x ray suspicious for 5th met osteo, MRI done this am, results pending at time of my exam. Blood and urine cultures pending, no f/c at home. no abd pain, no n/v/d. no cp, sob, cough. no gu complaints. UA without bacteria. wbc 7. Allergies Allergy/AdvReac Type Severity Reaction Status Date / Time No Known Allergies Allergy Unknown Verified 05/12/19 17:53 Home Medications Home Medications Medication Instructions Recorded Confirmed Type cholecalciferol (vitamin D3) 4,000 unit PO DAILY 07/07/18 05/12/19 History [Vitamin D3] coenzyme Q10 [CoQ-10] 100 mg PO DAILY 07/07/18 05/12/19 History acetaminophen [Tylenol Extra 500 mg PO Q4H PRN #90 tab 07/10/18 05/12/19 Rx Strength] carvedilol 6.25 mg PO BID #30 tab 07/10/18 05/12/19 Rx amlodipine 5 mg PO DAILY 05/12/19 05/12/19 History aspirin [Ecotrin Low Strength] 81 mg PO DAILY 05/12/19 05/12/19 History atorvastatin 10 mg PO HS 05/12/19 05/12/19 History furosemide [Lasix] 40 mg PO BID 05/12/19 05/12/19 History insulin glargine [Basaglar KwikPen 30 unit SUBCUT QAM 05/12/19 05/12/19 History U-100 Insulin] Patient History Medical History Chronic kidney disease (CKD), stage IV (severe) (Chronic) Diabetic neuropathy (Chronic) Dyslipidemia (Chronic) History of depression (Chronic) Hypertension (Chronic) Type 2 diabetes mellitus (Chronic) Surgical History History of appendectomy (Resolved) Status post right foot surgery Family History Other Diabetes Social History Preferred Language: Spanish 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: 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 Beliefs That Will Affect Care: None marital status: Single Current Living Situation: Alone Feels Safe at Home: Yes Safety Concerns: Feels Safe At This Time Smoking Status: Never smoker Second Hand Exposure: No ; Hx Alcohol Use: No Hx Substance Use: No Review of Systems Review of Systems: All systems reviewed & are unremarkable except as noted in HPI & below Physical Exam Constitutional: WD/WN, vitals as above Eyes: PERRL, conjunctivae normal, anicteric sclerae ENMT: external ear and nose normal, oropharynx normal Neck: normal visual inspection Respiratory: normal respiratory effort, lungs clear to auscultation Cardiovascular: RRR, no murmur, no edema Gastrointestinal (Abdomen): normal bowel sounds, soft, nontender, no hepatosplenomegaly Musculoskeletal: no cyanosis or clubbing, extremities motor strength 5/5 Skin: no rashes, warm and dry + wound (purulent, foul smelling drainage from lateral foot wound) Psychiatric: A+Ox3, euthymic affect Results & Data Vital Signs (Past 12 Hours) Vital Signs Temp Pulse Resp BP Pulse Ox 05/13/19 07:11 36.6 C 68 16 161/70 H 95 05/12/19 23:12 36.7 C 76 16 185/76 H 96 PG Care Time/CCT Total # of Minutes Spent Total Time Spent with Patient: Total time spent is greater than 50% in coordination of care (as documented) at patient's floor/unit and/or counseling patient: (1) Osteomyelitis Laterality: right Osteomyelitis location: foot Osteomyelitis type: unspecified type Qualified Code(s): M86.9 - Osteomyelitis, unspecified
[2019-05-13] MEDS: VANCOMYCIN HCL 1,000 MG in SODIUM CHLORIDE 0.9% 250 ML IV SCH (12:46)
--- NOTE | 2019-05-13 12:51 | Wound Consultation ---
Date of Consultation May 13, 2019 Assessment & Plan (1) Type 2 diabetes mellitus with right diabetic foot infection: Wound needed debridement. After obtaining permission, using a curette, the wound was debrided of fibrin and slough. Minimal bleeding was controlled with pressure. Wound will be dressed with aquacel ag and changed every other day. Continue abx per infectious disease. Recommend orthopedic consult. Will see in office after discharge. Thank you for allowing me to participate in this case. (2) Osteomyelitis: History of Present Illness Reason for Consultation: right foot wound Attending Physician: Sheldon Hurst MD History of Present Illness 64 year old female with history of diabetes with diabetic neuropathy, retinopathy, htn, vit d def, hx of trimaleolar fx with open reduction and internal fixation and history of TIAs admitted with wound to right lateral foot. Patient is unsure how long wound has been there. She noted foul smelling, bloody discharge and came to ED. Patient states it started as lump. It felt like she was walking on something. MRI is positive for osteomyelitis. Allergies Allergy/AdvReac Type Severity Reaction Status Date / Time No Known Allergies Allergy Unknown Verified 05/12/19 17:53 Home Medications Home Medications Medication Instructions Recorded Confirmed Type cholecalciferol (vitamin D3) 4,000 unit PO DAILY 07/07/18 05/12/19 History [Vitamin D3] coenzyme Q10 [CoQ-10] 100 mg PO DAILY 07/07/18 05/12/19 History acetaminophen [Tylenol Extra 500 mg PO Q4H PRN #90 tab 07/10/18 05/12/19 Rx Strength] carvedilol 6.25 mg PO BID #30 tab 07/10/18 05/12/19 Rx amlodipine 5 mg PO DAILY 05/12/19 05/12/19 History aspirin [Ecotrin Low Strength] 81 mg PO DAILY 05/12/19 05/12/19 History atorvastatin 10 mg PO HS 05/12/19 05/12/19 History furosemide [Lasix] 40 mg PO BID 05/12/19 05/12/19 History insulin glargine [Basaglar KwikPen 30 unit SUBCUT QAM 05/12/19 05/12/19 History U-100 Insulin] Patient History Medical History Chronic kidney disease (CKD), stage IV (severe) (Chronic) Diabetic neuropathy (Chronic) Dyslipidemia (Chronic) History of depression (Chronic) Hypertension (Chronic) Type 2 diabetes mellitus (Chronic) Surgical History History of appendectomy (Resolved) Status post right foot surgery Family History Other Diabetes Social History Preferred Language: Swedish 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: Effective 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 Wound covered with fibrin and slough. Periwound erythematous and intact. There is foul odor and moderate drainage. Neurologic: awake; not confused Psychiatric: A+Ox3, euthymic affect Results & Data Vital Signs (Past 12 Hours) Vital Signs Temp Pulse Resp BP Pulse Ox 05/13/19 07:11 36.6 C 68 16 161/70 H 95 Diagnostic Findings MRI right foot - skin ulcer of ateral forefoot with peripherally corticated osseous erosions involving the lateral base of the 5th metatarsal and lateral aspect of the distal cuboid with adjacent soft tissue and bone marrow edema suspicious for areas of subacute to chronic osteomyelitis. PG Care Time/CCT Total # of Minutes Spent Total Time Spent with Patient: Total time spent is greater than 50% in coordination of care (as documented) at patient's floor/unit and/or counseling patient: (1) Osteomyelitis Laterality: right Osteomyelitis location: foot Osteomyelitis type: unspecified type Qualified Code(s): M86.9 - Osteomyelitis, unspecified
--- NOTE | 2019-05-13 16:36 | Hospitalist Progress Note ---
Date of Service May 13, 2019 Assessment & Plan (1) Osteomyelitis: ASSESSMENT AND PLAN: This is a 64-year-old female who presents with right foot lateral aspect infection and x-ray shows possible osteomyelitis. 1. Right foot infection on the lateral aspect, possible osteomyelitis Foot MRI: Noted below Blood cultures: Pending Wound culture: Pending Wound care care consulted-status post bedside debridement today ID consulted-recommend to continue vancomycin and Zosyn, will need 6 weeks of IV antibiotics Orthopedic service consulted-pending recommendations 2. Diabetes. A1c 8.0 Continue insulin Lantus Will increase usual insulin regimen by 10% for better blood glucose control 3. History of hypertension, on Coreg and amlodipine Monitor 4. History of lower extremity edema. Hold off on Lasix in light of use of vancomycin 5. Vitamin D deficiency, continue vitamin supplements. 6. History of transient ischemic attacks, on aspirin, statin. 7. ANETTE on CKD stage 4. Baseline 2.7 to 3.2 crea 3.0 gentle fluids 8. Deep venous thrombosis prophylaxis - heparin SC 9. Disposition: Close monitoring in the medical floor. Level 1 full code. Social service to help with discharge planning. Foot MRI: 1. Motion degraded exam. 2. Suggested skin ulcer of the lateral forefoot with peripherally corticated osseous erosions involving the lateral base of the fifth metatarsal and lateral aspect of the distal cuboid with adjacent soft tissue and bone marrow edema suspicious for areas of subacute to chronic osteomyelitis. 3. Diffuse subcutaneous edema of the foot may reflect cellulitis, venous stasis or lymphedema. Subjective ff up for osteomyelitis of the right foot seen resting in bed, comfortable, not in distress pleasant states she feels ok overall, just tired minimal discomfort on the right foot denies fever/chills no other symptoms Review of Systems Review of Systems: All systems reviewed & are unremarkable except as noted in HPI & below Physical Exam Physical Exam: General- oriented x 3, not in distress, speaks in sentences with no effort or accessory muscle use Head- atraumatic Eyes- PERRL, EOMI, anicteric ENT- oropharynx clear Neck- supple, no JVD, no adenopathy, no thyromegaly; carotids +2/2, no bruits appreciated Lungs- clear to auscultation bilaterally, no rales/wheezes Heart- normal rate, regular rhythm; no murmur, no gallop, no rub appreciated Abdomen- normal bowel sounds, nondistended, soft, nontender, no masses or hepatosplenomegaly Extremities- right foot- moderate edema, ulcer on the lateral aspect, no active drainage seen, moderate erythema no pretibial edema, no calf tenderness; peripheral pulses intact Neuro- alert, oriented x 3; CN 2-12 grossly intact; motor 5/5 bilaterally;sensation 100% on all extremities; no other gross focal neurologic deficits Skin- warm & dry Results & Data Vital Signs (Past 12 Hours) Vital Signs Temp Pulse Resp BP Pulse Ox 05/13/19 15:23 36.9 C 69 17 148/72 H 91 05/13/19 07:11 36.6 C 68 16 161/70 H 95 Laboratory Results Laboratory Results - last 24 hr 05/12/19 05/12/19 05/12/19 17:39 17:39 17:40 WBC RBC Hgb Hct MCV MCH MCHC RDW Std Deviation RDW Coeff of Rico Plt Count MPV Immature Gran % (Auto) Neut % (Auto) Lymph % (Auto) Weld % (Auto) Eos % (Auto) Baso % (Auto) Immature Gran # (Auto) Neut # (Auto) Lymph # (Auto) Weld # (Auto) Eos # (Auto) Baso # (Auto) ESR 48 H Sodium 140 Potassium 4.0 Chloride 110 H Carbon Dioxide 24 Anion Gap 6.0 BUN 56 H Creatinine 3.02 H Est Cr Clr Drug Dosing Not Reportable Est GFR ( Amer) 18.1 Est GFR (Non-Af Amer) 15.6 BUN/Creatinine Ratio 18.6 Glucose 192 H POC Glucose Estimat Average Glucose Hemoglobin A1c Lactate 1.1 Calcium 8.1 L Magnesium Total Bilirubin 0.2 AST 27 ALT 28 Alkaline Phosphatase 94 C-Reactive Protein 0.55 H Total Protein 7.4 Albumin 3.2 L Globulin 4.2 H Albumin/Globulin Ratio 0.8 L Urine Color Urine Appearance Urine pH Ur Specific Barton Urine Protein Urine Glucose (UA) Urine Ketones Urine Blood Urine Nitrite Urine Bilirubin Urine Urobilinogen Ur Leukocyte Esterase Urine WBC (Auto) Urine RBC (Auto) U Hyaline Cast (Auto) U Epithel Cells (Auto) Urine Bacteria (Auto) Random Vancomycin 05/12/19 05/12/19 05/12/19 17:40 21:33 23:19 WBC 8.03 RBC 3.13 L Hgb 9.4 L Hct 28.8 L MCV 92.0 MCH 30.0 MCHC 32.6 RDW Std Deviation 43.3 RDW Coeff of Rico 13.0 Plt Count 288 MPV 9.1 Immature Gran % (Auto) 0.2 Neut % (Auto) 69.9 Lymph % (Auto) 19.8 Weld % (Auto) 6.1 Eos % (Auto) 3.6 Baso % (Auto) 0.4 Immature Gran # (Auto) 0.02 Neut # (Auto) 5.61 Lymph # (Auto) 1.59 Weld # (Auto) 0.49 Eos # (Auto) 0.29 Baso # (Auto) 0.03 ESR Sodium Potassium Chloride Carbon Dioxide Anion Gap BUN Creatinine Est Cr Clr Drug Dosing Est GFR ( Amer) Est GFR (Non-Af Amer) BUN/Creatinine Ratio Glucose POC Glucose 215 H Estimat Average Glucose Hemoglobin A1c Lactate Calcium Magnesium Total Bilirubin AST ALT Alkaline Phosphatase C-Reactive Protein Total Protein Albumin Globulin Albumin/Globulin Ratio Urine Color Yellow Urine Appearance Clear Urine pH 6.5 Ur Specific Barton 1.011 Urine Protein 3+ H Urine Glucose (UA) 2+ H Urine Ketones Negative Urine Blood 2+ H Urine Nitrite Negative Urine Bilirubin Negative Urine Urobilinogen Negative Ur Leukocyte Esterase Trace H Urine WBC (Auto) >30 H Urine RBC (Auto) 5-10 H U Hyaline Cast (Auto) 1-5 U Epithel Cells (Auto) >30 H Urine Bacteria (Auto) Negative Random Vancomycin 05/13/19 05/13/19 05/13/19 06:14 06:14 06:14 WBC 7.62 RBC 3.12 L Hgb 9.3 L Hct 28.9 L MCV 92.6 MCH 29.8 MCHC 32.2 RDW Std Deviation 44.1 RDW Coeff of Rico 13.1 Plt Count 292 MPV 9.0 Immature Gran % (Auto) 0.3 Neut % (Auto) 67.5 Lymph % (Auto) 21.5 Weld % (Auto) 6.7 Eos % (Auto) 3.7 Baso % (Auto) 0.3 Immature Gran # (Auto) 0.02 Neut # (Auto) 5.15 Lymph # (Auto) 1.64 Weld # (Auto) 0.51 Eos # (Auto) 0.28 Baso # (Auto) 0.02 ESR Sodium 145 Potassium 4.0 Chloride 114 H Carbon Dioxide 26 Anion Gap 5.0 BUN 54 H Creatinine 3.00 H Est Cr Clr Drug Dosing 18.8 Est GFR ( Amer) 18.3 Est GFR (Non-Af Amer) 15.8 BUN/Creatinine Ratio 17.9 Glucose 112 H POC Glucose Estimat Average Glucose 183 Hemoglobin A1c 8.0 H Lactate Calcium 8.2 L Magnesium 2.2 Total Bilirubin AST ALT Alkaline Phosphatase C-Reactive Protein Total Protein Albumin Globulin Albumin/Globulin Ratio Urine Color Urine Appearance Urine pH Ur Specific Barton Urine Protein Urine Glucose (UA) Urine Ketones Urine Blood Urine Nitrite Urine Bilirubin Urine Urobilinogen Ur Leukocyte Esterase Urine WBC (Auto) Urine RBC (Auto) U Hyaline Cast (Auto) U Epithel Cells (Auto) Urine Bacteria (Auto) Random Vancomycin 05/13/19 05/13/19 05/13/19 06:14 08:05 12:11 WBC RBC Hgb Hct MCV MCH MCHC RDW Std Deviation RDW Coeff of Rico Plt Count MPV Immature Gran % (Auto) Neut % (Auto) Lymph % (Auto) Weld % (Auto) Eos % (Auto) Baso % (Auto) Immature Gran # (Auto) Neut # (Auto) Lymph # (Auto) Weld # (Auto) Eos # (Auto) Baso # (Auto) ESR Sodium Potassium Chloride Carbon Dioxide Anion Gap BUN Creatinine Est Cr Clr Drug Dosing Est GFR ( Amer) Est GFR (Non-Af Amer) BUN/Creatinine Ratio Glucose POC Glucose 124 H 131 H Estimat Average Glucose Hemoglobin A1c Lactate Calcium Magnesium Total Bilirubin AST ALT Alkaline Phosphatase C-Reactive Protein Total Protein Albumin Globulin Albumin/Globulin Ratio Urine Color Urine Appearance Urine pH Ur Specific Barton Urine Protein Urine Glucose (UA) Urine Ketones Urine Blood Urine Nitrite Urine Bilirubin Urine Urobilinogen Ur Leukocyte Esterase Urine WBC (Auto) Urine RBC (Auto) U Hyaline Cast (Auto) U Epithel Cells (Auto) Urine Bacteria (Auto) Random Vancomycin 22.0 (1) Osteomyelitis Laterality: right Osteomyelitis location: foot Osteomyelitis type: unspecified type Qualified Code(s): M86.9 - Osteomyelitis, unspecified
--- NOTE | 2019-05-13 18:41 | XRay Report ---
XR ankle RT min 3V routine CLINICAL HISTORY: Varus deformity ankle COMPARISON: July 08, 2018 DISCUSSION: There is an internally fixated distal fibular fracture with a lateral metallic plate and multiple screws. The previously identified transverse syndesmotic screws have been removed in the int erim. There are 2 cannulated screws fixating an old medial malleolar fracture. The fractures appear h ealed. There are no acute fractures. The ankle mortise appears intact on these nonstress views. IMPRESSION: 1. Old post traumatic and postsurgical changes 2. No acute fractures. No evidence of ankle mortise disruption ACT 112: Negative or not required by law. Electronically signed by: Marco Nieto M.D. 05/13/2019 6:39 PM
--- NOTE | 2019-05-13 18:41 | Consultation Report ---
DATE OF CONSULTATION: 05/13/2019 PERTINENT HISTORY: This is a 64-year-old female seen at the request of Dr. Sheldon Hurst for right foot ulcer, possible osteomyelitis. The patient is well known to the orthopedic service and underwent open reduction internal fixation of her right ankle trimalleolar fracture in 06/2018. She had an uncomplicated course related to her ankle fracture; however, within the last 2 weeks she has noted redness and some slight swelling and intermittent discomfort at the base of the right fifth metatarsal. Then 2 days ago, she noted some bloody spotting on her socks at the base of fifth metatarsal. This area had ulcerated. She had no trauma to the area that she can recall. She consistently wears shoes when she is walking due to her significant neuropathy of bilateral lower extremities. She had no fever or chills. She presented to the hospital and was then admitted to the hospitalist service. Consultations have been made by the Infectious Disease and Wound Service. Orthopedic Services were then requested. PAST MEDICAL HISTORY: Diabetes mellitus type 2, diabetic retinopathy, diabetic polyneuropathy, hypertension, vitamin D deficiency, posterior capsular opacification, history of TIAs, depression. PAST SURGICAL HISTORY: Injection of eye, D&C, removal of inner eye fluid, cataract surgeries, ORIF right ankle fracture 06/2018. ALLERGIES: No known drug allergies. MEDICATIONS: Basaglar insulin 30 units, vitamin C 100 mg p.o. daily, multivitamin, amlodipine 5 mg daily, aspirin 81 mg b.i.d., atorvastatin 10 mg daily, Coreg 6.25 mg p.o. b.i.d., Lasix 40 mg p.o. b.i.d., Tylenol 500 mg p.r.n., Coenzyme Q10 100 mg daily, vitamin D 4000 units daily. SOCIAL HISTORY: She lives alone. Denies tobacco, alcohol or drug use. She is disabled and on social security. PHYSICAL EXAMINATION: GENERAL: This is a 64-year-old female lying supine in hospital room bed. Awake and alert, oriented x3. Speech clear and fluent. Affect is appropriate. EXTREMITIES: Examination of the right lower extremity demonstrates a padded dressing on the right lateral foot. This was removed and noted to be an approximately 1.4 cm diameter ulceration with fresh debridement which occurred earlier today. Slight foul odor at the base of fifth metatarsal. Local erythema. No significant streaking or cellulitis noted. Minimal tenderness to palpation. She has bilateral lower extremity neuropathic changes with loss of sensation and epicritic sensation. She has a plantar flexed and inverted position of her right foot. Dorsalis pedis and posterior pulses are 2/4 bilaterally. Feet are warm. Cap refill is brisk. Skin is dry and she has multiple dystrophic nails bilateral feet. Radiographs of the foot demonstrate what appears to be a cortical erosion at the base of the fifth metatarsal. Osteopenia is present throughout. There is orthopedic hardware is noted in the ankle. She has a slight plantar flexed and inverted position of the right foot. She has an orthopedic hardware in the ankle and cavus foot. MRI demonstrates skin ulcer on the lateral aspect of the fifth metatarsal. There is a corticated osseous erosion on the lateral base of fifth metatarsal, lateral aspect of the distal cuboid, soft tissue and bone marrow edema. No evidence of abscess or fluid collection. Diffuse subcutaneous edema. No obvious fractures. IMPRESSION: 1. Right foot ulcer base of fifth metatarsal. 2. Possible osteomyelitis base of fifth metatarsal, right foot, possible involvement of the cuboid, degenerative changes noted in the lateral hindfoot, diabetic neuropathy, dynamic varus position of the right ankle. RECOMMENDATION: At this time, the patient will have x-rays of the right ankle. Continue IV antibiotics. We will make recommendation for suction consulting services manager wound VAC as there is no evidence of exposed bone per exam. Maintain nonweightbearing with daily soft tissue dressing changes. We will follow with you. Continue IV antibiotics. No current need for orthopedic surgical intervention. Thank you for the opportunity to consult in the care of this patient.
[2019-05-13] MEDS: LACTOBACILLUS ACIDOPHILUS (FLORANEX) TAB PO SCH ×2 (19:02→20:23)
[2019-05-13] MEDS ORDERED: ATORVASTATIN 10 MG TAB PO SCH (21:00)
[2019-05-13] MEDS: HEPARIN SOD 5,000 UNIT/0.5 ML VIAL SQ SCH (21:19)
[2019-05-14] MEDS: SODIUM CHLORIDE 0.9% 1000ML 1,000 ML IV SCH ×3 (04:56→23:07)
[2019-05-14] MEDS ORDERED: VANCOMYCIN TROUGH ONE (05:30)
[2019-05-14] MEDS: HEPARIN SOD 5,000 UNIT/0.5 ML VIAL SQ SCH ×3 (06:31→21:15)
[2019-05-14] MEDS: VANCOMYCIN HCL 1,000 MG in SODIUM CHLORIDE 0.9% 250 ML IV SCH (06:32)
[2019-05-14 06:39] LABS: Creatinine Clr Calc Pharmacy 16.8 ml/min; Est GFR (African American) 15.9; Est GFR (Non-African American) 13.7
[2019-05-14] MEDS: LACTOBACILLUS ACIDOPHILUS (FLORANEX) TAB PO SCH ×4 (08:53→20:22)
[2019-05-14] MEDS: CHOLECALCIFEROL 1,000 UNITS TAB PO SCH (08:54)
[2019-05-14] MEDS: carvediloL 6.25 MG TAB PO SCH ×2 (08:54→20:22)
[2019-05-14] MEDS: ASPIRIN 81 MG ECTAB PO SCH (08:55)
[2019-05-14] MEDS: AMLODIPINE BESYLATE 5 MG TAB PO SCH (08:55)
[2019-05-14] MEDS: INSULIN GLARGINE SOLOSTAR 100 UNITS/ML 3 ML PEN SQ SCH (08:56)
[2019-05-14] MEDS: INSULIN ASPART 100 UNITS/ML 3 ML PEN SC SCH ×4 (08:56→20:23)
--- NOTE | 2019-05-14 09:01 | Pharmacy Report ---
Pharmacy Abx Dose Short Note - Date of Service May 14, 2019 - Assessment & Plan Assessment 64 year old F receiving vancomycin/zosyn for treatment of diabetic foot infection Day # 3 of antimicrobial therapy. Plan Vancomycin * Trough level of 24.7 mcg/mL is supratherapeutic * HOLD vancomycin * Goal trough level for osteomyelitis : 15 to 20 mcg/mL * Random level ordered for: 05/15/19 * Spoke with Dr Hurst voicing concern for nephrotoxic regimen of vancomycin and Zosyn especially in light of worsening kidney function. (Planned to discuss this with him regardless of vancomycin level just due to the patient's impaired kidney function). Plan to start daptomycin tomorrow whenever vancomycin level is subtherapeutic. Pharmacy will continue to follow and will adjust dose/frequency as necessary. Thank you.
[2019-05-14] MEDS ORDERED: DAPTOMYCIN CONSULT ACTIVE PRN (09:02)
--- NOTE | 2019-05-14 09:44 | Infectious Disease Progress Nt ---
Date of Service May 14, 2019 Assessment & Plan (1) Osteomyelitis: continue emperic abx, maintain vanco 15-20. wound culture pending surgery will need min 6 weeks IV abx with weekly cbc,cmp, esr, while on abx. final abx will depend on culture results, currently pending. I will be away until 05/27/2019, if patient has ongoing ID concerns, would suggest transfer. Subjective pt remains afebrile. she is on zosyn and renally dosed vanco leve today 24. Blood cultures negative to date, wound culture done, gram stain gpr, pending. was evaluated by wound care and surgery, no plans for OR, plan for vac. MRI foot confirmed osteo as well. no cbc today, creat 3.3. Results & Data Vital Signs (Past 12 Hours) Vital Signs Temp Pulse Resp BP Pulse Ox 05/14/19 07:22 36.7 C 63 14 164/66 H 91 05/13/19 23:45 158/75 H 05/13/19 23:16 37.0 C 71 17 172/71 H 92 Laboratory Results Microbiology 05/12/19 18:02 Blood Aerobic Blood Culture - Preliminary No growth in Aerobic bottle after 24 hours. 05/12/19 18:02 Blood Anaerobic Blood Culture - Preliminary No growth in Anaerobic bottle after 24 hours. 05/12/19 17:39 Blood Aerobic Blood Culture - Preliminary No growth in Aerobic bottle after 24 hours. 05/12/19 17:39 Blood Anaerobic Blood Culture - Preliminary No growth in Anaerobic bottle after 24 hours. 05/13/19 10:55 Foot Gram Stain - Final PG Care Time/CCT Total # of Minutes Spent Total Time Spent with Patient: Total time spent is greater than 50% in coordination of care (as documented) at patient's floor/unit and/or counseling patient: (1) Osteomyelitis Laterality: right Osteomyelitis location: foot Osteomyelitis type: unspecifi ed type Qualified Code(s): M86.9 - Osteomyelitis, unspecified
[2019-05-14] MEDS: PIPERACILLIN/TAZOBACTAM 3.375 GM in DEXTROSE 5% 100 ML IV SCH ×2 (13:01→23:07)
[2019-05-14] MEDS ORDERED: AMLODIPINE BESYLATE 5 MG TAB PO ONE (18:56)
[2019-05-14] MEDS ORDERED: LEVALBUTEROL HCL 0.63 MG/3 ML NEB NEB STA (19:12)
--- NOTE | 2019-05-14 20:06 | XRay Report ---
SINGLE VIEW CHEST CLINICAL HISTORY: Wheezing. FINDINGS: An AP, portable, upright chest radiograph is compared to study dated 07/07/2018. The examina tion is degraded by portable technique and patient rotation. The heart is mildly enlarged. There is p ulmonary vascular congestion. There is bibasilar consolidation and small pleural effusions. A calcifi ed granuloma is again seen in the right lung. No pneumothorax is seen. The skeletal structures are os teopenic. The bony thorax is grossly intact. IMPRESSION: 1. Mild cardiac enlargement with evidence of congestive failure. 2. There are small pleural effusions with bibasilar consolidation. This likely represents atelectasis . Clinical correlation will be required. ACT 112: Positive. There are findings on this exam that require communication between the performing entity and the patient following Patient Test Result Information Act ([place] Act 112) guidelines. Electronically signed by: Genaro Traylor M.D. 05/14/2019 8:05 PM
[2019-05-15] MEDS ORDERED: LEVALBUTEROL HCL 0.63 MG/3 ML NEB NEB PRN (01:00)
[2019-05-15] MEDS: HEPARIN SOD 5,000 UNIT/0.5 ML VIAL SQ SCH ×3 (05:25→21:05)
--- NOTE | 2019-05-15 06:47 | Hospitalist Progress Note ---
Date of Service delayed entry date of service 05/14/19 May 15, 2019 Assessment & Plan (1) Osteomyelitis: ASSESSMENT AND PLAN: This is a 64-year-old female who presents with right foot lateral aspect infection and x-ray shows possible osteomyelitis. Right foot infection on the lateral aspect, with osteomyelitis Foot MRI: Noted below Blood cultures: Pending Wound culture: Pending Wound care care consulted-status post bedside debridement at bedside ID consulted-recommend to continue vancomycin and Zosyn,for now, ff up wound culture, will need 6 weeks of IV antibiotics Dr. Cuadra on leave until May 27, will need to discuss with Kwaku ID re: antibiotic management Orthopedic service consulted- no surgical intervention recommended, wound vac recommended ANETTE on CKD stage 4. Baseline 2.7 to 3.2 crea 3.0--> 3.7 DC Vanco, repeat Vanco level 05/15, change to Daptomycin accordingly gentle fluids Wheezing mild wheezing noted CXR ordered: 1. Mild cardiac enlargement with evidence of congestive failure. 2. There are small pleural effusions with bibasilar consolidation. This likely represents atelectasis. Clinical correlation will be required. -- d/c IV fluids -- monitor closely Diabetes. A1c 8.0 Continue insulin Lantus Will increase usual insulin regimen by 10% for better blood glucose control upon discharge History of hypertension, on Coreg and amlodipine increase Amlodipine to 10mg daily for better BP control monitor History of lower extremity edema. Hold off on Lasix in light of use of vancomycin, increase in crea Vitamin D deficiency, continue vitamin supplements. History of transient ischemic attacks, on aspirin, statin. Deep venous thrombosis prophylaxis - heparin SC Disposition: - Close monitoring in the medical floor. Level 1 full code. Lives at home, PT/OT eval will need IV antibiotics x 6 weeks Foot MRI: 1. Motion degraded exam. 2. Suggested skin ulcer of the lateral forefoot with peripherally corticated osseous erosions involving the lateral base of the fifth metatarsal and lateral aspect of the distal cuboid with adjacent soft tissue and bone marrow edema suspicious for areas of subacute to chronic osteomyelitis. 3. Diffuse subcutaneous edema of the foot may reflect cellulitis, venous stasis or lymphedema. Subjective ff up for osteomyelitis Wound Vac placed today seen resting in bed, comfortable, in good spirits no discomfort on Right foot- reports sensation on BL feet has been poor no fever/chills reports mild dyspnea no chest pain, palpitations, dizziness, headache no other symptoms Review of Systems Review of Systems: All systems reviewed & are unremarkable except as noted in HPI & below Physical Exam Physical Exam: General- oriented x 3, not in distress, speaks in sentences with no effort or accessory muscle use Eyes- anicteric Neck- no JVD Lungs- faint wheeze b/l, good air entry BL Heart- normal rate, regular rhythm; no murmurs Abdomen- normal bowel sounds, nondistended, soft, nontender Extremities- right foot- mild edema, (+) wound vac no pretibial edema, no calf tenderness Neuro- alert, oriented x 3; no gross focal neurologic deficits Skin- warm & dry Results & Data Vital Signs (Past 12 Hours) Vital Signs Temp Pulse Resp BP Pulse Ox 05/15/19 00:01 159/80 H 05/14/19 23:00 36.8 C 73 18 170/73 H 93 05/14/19 19:55 79 16 93 05/14/19 19:05 76 174/72 H (1) Osteomyelitis Laterality: right Osteomyelitis location: foot Osteomyelitis type: unspecified type Qualified Code(s): M86.9 - Osteomyelitis, unspecified
[2019-05-15 06:48] LABS: BUN Creatinine Ratio 17.3 (10-20); Calcium 8.6 mg/dl (8.5-10.1); Creatinine Clr Calc Pharmacy 16.4 ml/min; Est GFR (African American) 15.4; Est GFR (Non-African American) 13.3; Potassium 4.5 mmol/L (3.5-5.1)
--- NOTE | 2019-05-15 07:03 | Orthopedic Progress Note ---
Date of Service May 15, 2019 Assessment & Plan (1) Type 2 diabetes mellitus with right diabetic foot infection: wound Vac has been placed, Continue IV antibiotics. she should continue NWB to the right foot. No current need for orthopedic surgical intervention. Subjective denies Fever/Chills Denies CP/SOB Review of Systems Review of Systems: All systems reviewed & are unremarkable except as noted in HPI & below Constitutional: no fever and no chills Physical Exam Physical Exam: Vital Signs Temp 36.8 C 05/14/19 23:00 Pulse 73 05/14/19 23:00 Resp 18 05/14/19 23:00 BP 159/80 H 05/15/19 00:01 Pulse Ox 93 05/14/19 23:00 Intake & Output 05/14/19 05/15/19 05/15/19 18:59 06:59 18:59 Intake Total 1534.583 / 3201.66 6 1667.083 / 3201.66 6 Output Total 402 / 629 227 / 629 Balance 1132.583 / 2572.66 6 1440.083 / 2572.66 6 Intake: IV 1174.583 / 2841.66 6 1667.083 / 2841.66 6 Zosyn 3.375 gm In D5 100 ml @ 115 / 230 115 / 230 28.75 mls/hr I V Q12H [facility] Rx#: [id number] Nss 1000ML 1,0 00 ml @ 125 mls/ 799.166 / 2351.249 1552.083 / 2351.24 9 hr IV .Q8H [facility] Rx#:[id number] Vancomycin HCl 1,000 mg In Nss 260.417 / 260.417 250 ml @ 125 m ls/hr IV Q18H [facility] Rx#:[id number] Oral 360 / 360 Output: Urine 400 / 626 226 / 626 Urine/Stool Mix / # Bowel Movement s / 2 1 / 2 Other: # Unmeasured Voi ds 1 1 Constitutional: WD/WN, vitals as above no acute distress Musculoskeletal: Right foot: there is wound vac placement to the right foot, she is able to wiggle her toes, sensation is intact throughout the toes and hindfoot. no erythema, no streaking noted. calf SNT Results & Data Vital Signs (Past 12 Hours) Vital Signs Temp Pulse Resp BP Pulse Ox 05/15/19 00:01 159/80 H 05/14/19 23:00 36.8 C 73 18 170/73 H 93 05/14/19 19:55 79 16 93 05/14/19 19:05 76 174/72 H Laboratory Results Laboratory Results WBC 7.62 K/uL (4.8-10.8) 05/13/19 06:14 RBC 3.12 M/uL (4.2-5.4) L 05/13/19 06:14 Hgb 9.3 g/dL (12.0-16.0) L 05/13/19 06:14 Hct 28.9 % (37-47) L 05/13/19 06:14 MCV 92.6 fL (80-100) 05/13/19 06:14 MCH 29.8 pg (25-34) 05/13/19 06:14 MCHC 32.2 g/dL (32-36) 05/13/19 06:14 RDW Std Deviation 44.1 fL (36.4-46.3) 05/13/19 06:14 RDW Coeff of [place] 13.1 % (11.5-14.5) 05/13/19 06:14 Microbiology 05/12/19 18:02 Blood Aerobic Blood Culture - Preliminary No growth in Aerobic bottle after 48 hours. 05/12/19 18:02 Blood Anaerobic Blood Culture - Preliminary No growth in Anaerobic bottle after 48 hours. 05/12/19 17:39 Blood Aerobic Blood Culture - Preliminary No growth in Aerobic bottle after 48 hours. 05/12/19 17:39 Blood Anaerobic Blood Culture - Preliminary No growth in Anaerobic bottle after 48 hours. 05/13/19 10:55 Foot Gram Stain - Final 05/13/19 10:55 Foot Wound Culture - Preliminary Coag negative Staphylococcus 05/12/19 23:19 Urine,Clean Catch Urine Culture - Preliminary No growth - Less than 1,000 colonies/mL, Final report to follow. Plt Count 292 K/uL (130-400) 05/13/19 06:14 MPV 9.0 fL (7.4-10.4) 05/13/19 06:14 Immature Gran % (Auto) 0.3 % 05/13/19 06:14 Neut % (Auto) 67.5 % 05/13/19 06:14 Lymph % (Auto) 21.5 % 05/13/19 06:14 [place] % (Auto) 6.7 % 05/13/19 06:14 Eos % (Auto) 3.7 % 05/13/19 06:14 Baso % (Auto) 0.3 % 05/13/19 06:14 Immature Gran # (Auto) 0.02 K/uL (0.00-0.02) 05/13/19 06:14 Neut # (Auto) 5.15 K/uL (1.4-6.5) 05/13/19 06:14 Lymph # (Auto) 1.64 K/uL (1.2-3.4) 05/13/19 06:14 [place] # (Auto) 0.51 K/uL (0.11-0.59) 05/13/19 06:14 Eos # (Auto) 0.28 K/uL (0-0.5) 05/13/19 06:14 Baso # (Auto) 0.02 K/uL (0-0.2) 05/13/19 06:14 ESR 48 mm/hr (0-21) H 05/12/19 17:39 Sodium 145 mmol/L (136-145) 05/15/19 05:54 Potassium 4.5 mmol/L (3.5-5.1) 05/15/19 05:54 Chloride 119 mmol/L (98-107) H 05/15/19 05:54 Carbon Dioxide 20 mmol/L (21-32) L 05/15/19 05:54 Anion Gap 6.0 (3-11) 05/15/19 05:54 BUN 60 mg/dl (7-18) H 05/15/19 05:54 Creatinine 3.45 mg/dl (0.6-1.2) H 05/15/19 05:54 Est Cr Clr Drug Dosing 16.4 ml/min 05/15/19 05:54 Est GFR ( Amer) 15.4 05/15/19 05:54 Est GFR (Non-Af Amer) 13.3 05/15/19 05:54 BUN/Creatinine Ratio 17.3 (10-20) 05/15/19 05:54 Glucose 82 mg/dl (70-99) 05/15/19 05:54 POC Glucose 162 (70-99) H 05/14/19 20:20 Estimat Average Glucose 183 mg/dl 05/13/19 06:14 Hemoglobin A1c 8.0 % (4.5-5.6) H 05/13/19 06:14 Lactate 1.1 mmol/L (0.4-2.0) 05/12/19 17:40 Calcium 8.6 mg/dl (8.5-10.1) 05/15/19 05:54 Magnesium 2.2 mg/dl (1.8-2.4) 05/13/19 06:14 Total Bilirubin 0.2 mg/dl (0.2-1) 05/12/19 17:39 AST 27 U/L (15-37) 05/12/19 17:39 ALT 28 U/L (12-78) 05/12/19 17:39 Alkaline Phosphatase 94 U/L (45-117) 05/12/19 17:39 C-Reactive Protein 0.55 mg/dl (0-0.29) H 05/12/19 17:39 Total Protein 7.4 gm/dl (6.4-8.2) 05/12/19 17:39 Albumin 3.2 gm/dl (3.4-5.0) L 05/12/19 17:39 Globulin 4.2 gm/dl (2.5-4.0) H 05/12/19 17:39 Albumin/Globulin Ratio 0.8 (0.9-2) L 05/12/19 17:39 Urine Color Yellow 05/12/19 23:19 Urine Appearance Clear (Clear) 05/12/19 23:19 Urine pH 6.5 (4.5-7.5) 05/12/19 23:19 Ur Specific [place] 1.011 (1.000-1.030) 05/12/19 23:19 Urine Protein 3+ (Negative) H 05/12/19 23:19 Urine Glucose (UA) 2+ (Negative) H 05/12/19 23:19 Urine Ketones Negative (Negative) 05/12/19 23:19 Urine Blood 2+ (Negative) H 05/12/19 23:19 Urine Nitrite Negative (Negative) 05/12/19 23:19 Urine Bilirubin Negative (Negative) 05/12/19 23:19 Urine Urobilinogen Negative (Negative) 05/12/19 23:19 Ur Leukocyte Esterase Trace (Negative) H 05/12/19 23:19 Urine WBC (Auto) >30 /hpf (0-5) H 05/12/19 23:19 Urine RBC (Auto) 5-10 /hpf (0-4) H 05/12/19 23:19 U Hyaline Cast (Auto) 1-5 /lpf (0-5) 05/12/19 23:19 U Epithel Cells (Auto) >30 /lpf (0-5) H 05/12/19 23:19 Urine Bacteria (Auto) Negative (Negative) 05/12/19 23:19 Vancomycin Trough 24.7 mcg/ml (See Comment) 05/14/19 05:50 Random Vancomycin 25.2 mcg/ml 05/15/19 05:54
[2019-05-15] MEDS: ASPIRIN 81 MG ECTAB PO SCH (08:30)
[2019-05-15] MEDS: AMLODIPINE BESYLATE 5 MG TAB PO SCH (08:30)
[2019-05-15] MEDS: carvediloL 6.25 MG TAB PO SCH ×2 (08:31→21:01)
[2019-05-15] MEDS: CHOLECALCIFEROL 1,000 UNITS TAB PO SCH (08:31)
[2019-05-15] MEDS: LACTOBACILLUS ACIDOPHILUS (FLORANEX) TAB PO SCH ×4 (08:31→21:01)
[2019-05-15] MEDS: INSULIN GLARGINE SOLOSTAR 100 UNITS/ML 3 ML PEN SQ SCH (08:31)
[2019-05-15] MEDS: INSULIN ASPART 100 UNITS/ML 3 ML PEN SC SCH ×4 (08:33→21:02)
--- NOTE | 2019-05-15 11:24 | Pharmacy Report ---
Pharmacy Abx Dose Short Note - Date of Service May 15, 2019 - Assessment & Plan Assessment 64 year old F receiving Vancomycin and Zosyn for treatment of osteomyelitis Day # 4 of antimicrobial therapy Patient's renal function continues to decline, SCr 3.37-->3.45 Plan Vancomycin * Random level this AM was 25.2 mcg/mL which is supratherapeutic * This is secondary to patient receiving 0600 dose yesterday * Hold Vancomycin today * Will order random level for tomorrow AM Zosyn * Continue 3.375 g IV every 12 hours for eCrCl < 20 mL/min Daptomycin * Plan is to transition patient to daptomycin to avoid nephrotoxic regimen of vancomycin + zosyn given patient's current renal function * Will transition once patient's vancomycin levels are subtherapeutic * Given patient's random level was 25.2 mcg/mL this AM, will hold vanc and dapto today and order random level for tomorrow AM to assess need to start daptomycin Pharmacy will continue to follow and will adjust dose/frequency as necessary. Thank you.
--- NOTE | 2019-05-15 11:37 | Hospitalist Progress Note ---
Date of Service May 15, 2019 Assessment & Plan (1) Osteomyelitis: ASSESSMENT AND PLAN: This is a 64-year-old female who presents with right foot lateral aspect infection and x-ray shows possible osteomyelitis. MRI of the right foot confirmed osteomyelitis Has been on intravenous vancomycin and Zosyn ID consulted-recommend to continue vancomycin and Zosyn,for now, ff up wound culture, will need 6 weeks of IV antibiotics Blood cultures: Negative Wound culture: Coagulase negative Staphylococcus. No sensitivity to follow Wound care care consulted-status post bedside debridement at bedside and placement of wound VAC Orthopedic service consulted- no surgical intervention recommended, wound vac recommended Clinically much better ANETTE on CKD stage 4. Baseline 2.7 to 3.2 Crea 3.0--> 3.7 DC Vanco, repeat Vanco level 05/15, change to Daptomycin accordingly Remained stable clinically Wheezing mild wheezing noted CXR ordered: 1. Mild cardiac enlargement with evidence of congestive failure. 2. There are small pleural effusions with bibasilar consolidation. This likely represents atelectasis. Clinical correlation will be required. IV fluid has been discontinued since this morning No more wheezing reported Diabetes. A1c 8.0 Continue insulin Lantus Will increase usual insulin regimen by 10% for better blood glucose control upon discharge History of hypertension, on Coreg and amlodipine increase Amlodipine to 10mg daily for better BP control Blood pressure is controlled History of lower extremity edema. Hold off on Lasix in light of use of vancomycin, increase in crea Vitamin D deficiency, continue vitamin supplements. History of transient ischemic attacks, on aspirin, statin. Deep venous thrombosis prophylaxis - heparin SC Disposition: - Close monitoring in the medical floor. Level 1 full code. Lives at home, PT/OT eval Will need IV antibiotics x 6 weeks Foot MRI: 1. Motion degraded exam. 2. Suggested skin ulcer of the lateral forefoot with peripherally corticated osseous erosions involving the lateral base of the fifth metatarsal and lateral aspect of the distal cuboid with adjacent soft tissue and bone marrow edema suspicious for areas of subacute to chronic osteomyelitis. 3. Diffuse subcutaneous edema of the foot may reflect cellulitis, venous stasis or lymphedema. Subjective 05/15 The patient was seen and examined in medical floor She is a 64-year-old female with past medical history significant for diabetes, proliferative diabetic retinopathy, diabetic polyneuropathy, hypertension, vitamin D deficiency, posterior capsular opacification, history of TIAs and depression who lives alone, comes because of right foot infection. MRI showed osteomyelitis involving the right foot Denies any symptoms as of today No pain, swelling, fever and/or chills Review of Systems Review of Systems: All systems reviewed and are unremarkable except as noted below Constitutional: no fever and no chills Musculoskeletal: Right foot is warm wound VAC without any redness and/or tenderness locally and trace edema of the ankle Physical Exam Physical Exam: Lying in bed comfortably Constitutional: well developed and well nourished; no acute distress and not ill appearing Eyes: PERRL, conjunctivae normal, anicteric sclerae ENMT: external ear and nose normal, oropharynx normal Neck: trachea midline, no thyromegaly Respiratory: normal respiratory effort; no respiratory distress Cardiovascular: Rate/Rhythm: regular rate and regular rhythm Heart Sounds: no murmur Gastrointestinal (Abdomen): Inspection/Auscultation: abdomen normal to inspection and normal bowel sounds Musculoskeletal: No acute arthritis in any of the joints. Right midfoot is on VAC Neurologic: Alert, awake and oriented x3 Results & Data Vital Signs (Past 12 Hours) Vital Signs Temp Pulse Resp BP BP Pulse Ox 05/15/19 07:39 36.5 C 73 18 134/68 92 05/15/19 00:01 159/80 H Laboratory Results [facility] 05/15/19 05:54 Sodium 145 Potassium 4.5 Chloride 119 H Carbon Dioxide 20 L BUN 60 H Creatinine 3.45 H Glucose 82 Calcium 8.6 Medications Administered Current Inpatient Medications Acetaminophen (Tylenol) 650 mg PO Q4H PRN PRN Reason: pain/fever Stop: 06/11/19 21:00 Amlodipine Besylate (Norvasc) 10 mg PO DAILY [facility] Stop: 06/14/19 08:59 Last Admin: 05/15/19 08:30 Dose: 10 mg Documented by: Aspirin (Ecotrin Ectab) 81 mg PO DAILY [facility] Stop: 06/12/19 08:59 Last Admin: 05/15/19 08:30 Dose: 81 mg Documented by: Atorvastatin Calcium (Lipitor) 10 mg PO HS [facility] Stop: 06/12/19 20:59 Last Admin: 05/13/19 20:23 Dose: 10 mg Documented by: Carvedilol (Coreg) 6.25 mg PO BID [facility] Stop: 06/11/19 21:00 Last Admin: 05/15/19 08:31 Dose: 6.25 mg Documented by: Dextrose (Dextrose 50%) 25 - 50 ml IV UD PRN; Protocol PRN Reason: Hypoglycemia Protocol Stop: 06/11/19 21:29 Glucagon (Glucagen) 1 mg IM UD PRN; Protocol PRN Reason: Hypoglycemia Protocol Stop: 06/11/19 21:29 Glucose (Glucose 40%) 15 - 30 gm PO UD PRN; Protocol PRN Reason: Hypoglycemia Protocol Stop: 06/11/19 21:29 Glucose (Dex4 Glucose) 4 - 8 tabs PO UD PRN; Protocol PRN Reason: Hypoglycemia Protocol Stop: 06/11/19 21:29 Heparin Sodium (Porcine) (Heparin Sodium (Porcine)) 5,000 units SQ Q8 [facility] Stop: 06/12/19 21:59 Last Admin: 05/15/19 05:25 Dose: 5,000 units Documented by: Piperacillin Sod/Tazobactam (Sod 3.375 gm/ Dextrose) 115 mls @ 28.75 mls/hr IV Q12H [facility]; Protocol Stop: 05/24/19 11:59 Last Infusion: 05/15/19 03:10 Dose: Infused Documented by: Insulin Aspart (Novolog Flexpen) 0 units SC ACHS [facility] Stop: 06/11/19 21:00 Last Admin: 05/15/19 08:33 Dose: 4 units Documented by: Insulin Glargine (Lantus Solostar Pen) 30 units SQ QAM [facility] Stop: 06/12/19 08:59 Last Admin: 05/15/19 08:31 Dose: 30 units Documented by: Lactobacillus Acidophilus (Floranex) 4 tab PO QIDM [facility] Stop: 06/12/19 16:59 Last Admin: 05/15/19 08:31 Dose: 4 tab Documented by: Levalbuterol HCl (Xopenex 0.63 Mg/3 Ml Neb) 0.63 mg NEB Q6R PRN PRN Reason: Shortness Of Breath Or Wheezing Stop: 06/14/19 00:59 Miscellaneous (Carbohydrates For Hypoglycemia) 15 - 30 gm PO UD PRN PRN Reason: Hypoglycemia Treatment Stop: 06/11/19 21:29 Miscellaneous (Pending Order) 1 ea N/A DAILY@1000 [facility] Stop: 06/13/19 09:59 Last Admin: 05/15/19 09:04 Dose: Not Given Documented by: Miscellaneous Information (Consult) 1 ea N/A UD PRN PRN Reason: Consult Stop: 06/11/19 18:08 Miscellaneous Information (Consult) 1 ea N/A UD PRN PRN Reason: Consult Stop: 06/13/19 09:01 Ondansetron HCl (Zofran) 4 mg IV Q6H PRN PRN Reason: Nausea Stop: 06/11/19 21:00 Polyethylene Glycol (Miralax Powder Packet) 17 gm PO DAILY PRN PRN Reason: Constipation Stop: 06/11/19 21:00 Vitamin D (Vitamin D3) 4,000 units PO DAILY [facility] Stop: 06/12/19 08:59 Last Admin: 05/15/19 08:31 Dose: 4,000 units Documented by: (1) Osteomyelitis Laterality: right Osteomyelitis location: foot Osteomyelitis type: unspecified type Qualified Code(s): M86.9 - Osteomyelitis, unspecified
[2019-05-16] MEDS: HEPARIN SOD 5,000 UNIT/0.5 ML VIAL SQ SCH ×3 (05:31→21:52)
[2019-05-16 05:58] LABS: Hematocrit (blood only) 25.2 % (37-47); Mean Corpuscular Hemoglobin 30.1 pg (25-34); Mean Corpuscular Hgb Conc 31.7 g/dL (32-36); Mean Corpuscular Volume 94.7 fL (80-100); Mean Platelet Volume 9.5 fL (7.4-10.4); Platelet Count 237 K/uL (130-400); RDW Coefficient of Variation 13.3 % (11.5-14.5); Red Blood Count 2.66 M/uL (4.2-5.4); White Blood Count 7.37 K/uL (4.8-10.8)
[2019-05-16 06:21] LABS: BUN Creatinine Ratio 18.7 (10-20); Creatinine Clr Calc Pharmacy 16.3 ml/min; Est GFR (African American) 15.3; Est GFR (Non-African American) 13.2; Potassium 4.6 mmol/L (3.5-5.1)
[2019-05-16] MEDS: carvediloL 6.25 MG TAB PO SCH ×2 (08:51→21:56)
[2019-05-16] MEDS: AMLODIPINE BESYLATE 5 MG TAB PO SCH (08:52)
[2019-05-16] MEDS: LACTOBACILLUS ACIDOPHILUS (FLORANEX) TAB PO SCH ×4 (08:52→21:56)
[2019-05-16] MEDS: CHOLECALCIFEROL 1,000 UNITS TAB PO SCH (08:52)
[2019-05-16] MEDS: ASPIRIN 81 MG ECTAB PO SCH (08:52)
[2019-05-16] MEDS: INSULIN GLARGINE SOLOSTAR 100 UNITS/ML 3 ML PEN SQ SCH (08:52)
[2019-05-16] MEDS: INSULIN ASPART 100 UNITS/ML 3 ML PEN SC SCH ×4 (08:54→21:53)
[2019-05-16] MEDS ORDERED: DAPTOmycin 325 MG in SYRINGE 0 ML IV SCH (09:00)
--- NOTE | 2019-05-16 13:09 | Hospitalist Progress Note ---
Date of Service May 16, 2019 Assessment & Plan (1) Osteomyelitis: ASSESSMENT AND PLAN: This is a 64-year-old female who presents with right foot lateral aspect infection and x-ray shows possible osteomyelitis. MRI of the right foot confirmed osteomyelitis Has been on intravenous vancomycin and Zosyn ID consulted-recommend to continue vancomycin and Zosyn,for now, ff up wound culture, will need 6 weeks of IV antibiotics Blood cultures: Negative Wound culture: Coagulase negative Staphylococcus. No sensitivity to follow Wound care care consulted-status post bedside debridement at bedside and placement of wound VAC Orthopedic service consulted- no surgical intervention recommended, wound vac recommended Clinically much better We will get PICC line placement today and continue intravenous daptomycin for a total of 6 weeks Like to be discharged tomorrow ANETTE on CKD stage 4. Baseline 2.7 to 3.2 Crea 3.0--> 3.7 DC Vanco, repeat Vanco level 05/15, change to Daptomycin accordingly Remained stable clinically and at baseline Wheezing mild wheezing noted CXR ordered: 1. Mild cardiac enlargement with evidence of congestive failure. 2. There are small pleural effusions with bibasilar consolidation. This likely represents atelectasis. Clinical correlation will be required. IV fluid has been discontinued since this morning No more wheezing reported Diabetes. A1c 8.0 Continue insulin Lantus Will increase usual insulin regimen by 10% for better blood glucose control upon discharge Blood sugar remains stable History of hypertension, on Coreg and amlodipine increase Amlodipine to 10mg daily for better BP control Blood pressure is controlled History of lower extremity edema. Hold off on Lasix in light of use of vancomycin, increase in crea Vitamin D deficiency, continue vitamin supplements. History of transient ischemic attacks, on aspirin, statin. Deep venous thrombosis prophylaxis - heparin SC Disposition: - Close monitoring in the medical floor. Level 1 full code. Lives at home, PT/OT eval Will need IV antibiotics x 6 weeks With lab placement today to continue intravenous antibiotic for a total of 6 weeks as per ID specialist Foot MRI: 1. Motion degraded exam. 2. Suggested skin ulcer of the lateral forefoot with peripherally corticated osseous erosions involving the lateral base of the fifth metatarsal and lateral aspect of the distal cuboid with adjacent soft tissue and bone marrow edema suspicious for areas of subacute to chronic osteomyelitis. 3. Diffuse subcutaneous edema of the foot may reflect cellulitis, venous stasis or lymphedema. Subjective 05/15 The patient was seen and examined in medical floor She is a 64-year-old female with past medical history significant for diabetes, proliferative diabetic retinopathy, diabetic polyneuropathy, hypertension, vitamin D deficiency, posterior capsular opacification, history of TIAs and depression who lives alone, comes because of right foot infection. MRI showed osteomyelitis involving the right foot Denies any symptoms as of today No pain, swelling, fever and/or chills 05/16 The patient was seen and examined in medical floor She has been stable without any symptoms Denies any pain in the right foot, redness and/or tenderness and no fever and/or chills Review of Systems Review of Systems: All systems reviewed and are unremarkable except as noted below Musculoskeletal: Right foot is warm wound VAC without any redness and/or tenderness locally and trace edema of the ankle Physical Exam Physical Exam: Lying in bed comfortably Constitutional: well developed and well nourished; no acute distress and not ill appearing Eyes: PERRL, conjunctivae normal, anicteric sclerae ENMT: external ear and nose normal, oropharynx normal Neck: trachea midline, no thyromegaly Respiratory: normal respiratory effort; no respiratory distress Cardiovascular: Rate/Rhythm: regular rate and regular rhythm Heart Sounds: no murmur Gastrointestinal (Abdomen): Inspection/Auscultation: abdomen normal to inspection and normal bowel sounds Musculoskeletal: No acute arthritis involving any joints Lymphatic: no cervical or axillary lymphadenopathy Results & Data Vital Signs (Past 12 Hours) Vital Signs Temp Pulse Resp BP Pulse Ox 05/16/19 07:25 36.6 C 71 16 117/65 93 Laboratory Results Short CBC 05/16/19 Range/Units 05:23 WBC 7.37 (4.8-10.8) K/uL Hgb 8.0 L (12.0-16.0) g/dL Hct 25.2 L (37-47) % Plt Count 237 (130-400) K/uL BMP 05/16/19 05:23 Sodium 147 H Potassium 4.6 Chloride 121 H Carbon Dioxide 22 BUN 65 H Creatinine 3.47 H Glucose 68 L Calcium 9.0 Medications Administered Current Inpatient Medications Acetaminophen (Tylenol) 650 mg PO Q4H PRN PRN Reason: pain/fever Stop: 06/11/19 21:00 Amlodipine Besylate (Norvasc) 10 mg PO DAILY [facility] Stop: 06/14/19 08:59 Last Admin: 05/16/19 08:52 Dose: 10 mg Documented by: Aspirin (Ecotrin Ectab) 81 mg PO DAILY [facility] Stop: 06/12/19 08:59 Last Admin: 05/16/19 08:52 Dose: 81 mg Documented by: Atorvastatin Calcium (Lipitor) 10 mg PO HS [facility] Stop: 06/12/19 20:59 Last Admin: 05/13/19 20:23 Dose: 10 mg Documented by: Carvedilol (Coreg) 6.25 mg PO BID [facility] Stop: 06/11/19 21:00 Last Admin: 05/16/19 08:51 Dose: 6.25 mg Documented by: Dextrose (Dextrose 50%) 25 - 50 ml IV UD PRN; Protocol PRN Reason: Hypoglycemia Protocol Stop: 06/11/19 21:29 Glucagon (Glucagen) 1 mg IM UD PRN; Protocol PRN Reason: Hypoglycemia Protocol Stop: 06/11/19 21:29 Glucose (Glucose 40%) 15 - 30 gm PO UD PRN; Protocol PRN Reason: Hypoglycemia Protocol Stop: 06/11/19 21:29 Glucose (Dex4 Glucose) 4 - 8 tabs PO UD PRN; Protocol PRN Reason: Hypoglycemia Protocol Stop: 06/11/19 21:29 Heparin Sodium (Porcine) (Heparin Sodium (Porcine)) 5,000 units SQ Q8 [facility] Stop: 06/12/19 21:59 Last Admin: 05/16/19 05:31 Dose: Not Given Documented by: Daptomycin 325 mg/ Syringe 6.5 mls @ 3.25 mls/min IV Q48H [facility]; Protocol Stop: 06/27/19 08:59 Last Admin: 05/16/19 08:56 Dose: 3.25 mls/min Documented by: Insulin Aspart (Novolog Flexpen) 0 units SC ACHS [facility] Stop: 06/11/19 21:00 Last Admin: 05/16/19 08:54 Dose: 3 units Documented by: Insulin Glargine (Lantus Solostar Pen) 25 units SQ QAM [facility] Stop: 06/16/19 08:59 Lactobacillus Acidophilus (Floranex) 4 tab PO QIDM [facility] Stop: 06/12/19 16:59 Last Admin: 05/16/19 12:02 Dose: 4 tab Documented by: Levalbuterol HCl (Xopenex 0.63 Mg/3 Ml Neb) 0.63 mg NEB Q6R PRN PRN Reason: Shortness Of Breath Or Wheezing Stop: 06/14/19 00:59 Miscellaneous (Carbohydrates For Hypoglycemia) 15 - 30 gm PO UD PRN PRN Reason: Hypoglycemia Treatment Stop: 06/11/19 21:29 Miscellaneous Information (Consult) 1 ea N/A UD PRN PRN Reason: Consult Stop: 06/13/19 09:01 Ondansetron HCl (Zofran) 4 mg IV Q6H PRN PRN Reason: Nausea Stop: 06/11/19 21:00 Polyethylene Glycol (Miralax Powder Packet) 17 gm PO DAILY PRN PRN Reason: Constipation Stop: 06/11/19 21:00 Vitamin D (Vitamin D3) 4,000 units PO DAILY [facility] Stop: 06/12/19 08:59 Last Admin: 05/16/19 08:52 Dose: 4,000 units Documented by: (1) Osteomyelitis Laterality: right Osteomyelitis location: foot Osteomyelitis type: unspecified type Qualified Code(s): M86.9 - Osteomyelitis, unspecified
[2019-05-17] MEDS ORDERED: FUROSEMIDE 20 MG in SYRINGE 0 ML IV ONE (00:47)
[2019-05-17] MEDS ORDERED: Nursing to Pharmacy 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 ONE (00:59)
[2019-05-17] MEDS: HEPARIN SOD 5,000 UNIT/0.5 ML VIAL SQ SCH ×2 (06:12→13:45)
[2019-05-17 06:49] LABS: BUN Creatinine Ratio 20.6 (10-20); Calcium 8.5 mg/dl (8.5-10.1); Creatinine Clr Calc Pharmacy 17.3 ml/min; Est GFR (African American) 16.5; Est GFR (Non-African American) 14.2; Potassium 4.7 mmol/L (3.5-5.1)
--- NOTE | 2019-05-17 07:07 | XRay Report ---
XR chest 1V portable CLINICAL HISTORY: 64 years-old Female presenting with congestion, on oxygen. TECHNIQUE: Portable upright AP view of the chest was obtained. COMPARISON: 05/14/2019. FINDINGS: Interval placement of a left upper extremity PICC, which terminates at the superior cavoatrial juncti on. Artifacts silhouette moderately enlarged as on prior exam. Pulmonary vascular prominence and inte rstitial prominence similar to prior exam. Bibasilar opacities and small bilateral pleural effusions unchanged from prior. No pneumothorax. Osseous structures normal. Upper abdomen normal. IMPRESSION: 1. Cardiomegaly with persistent volume overload, congestive change, and mild bibasilar edema. 2. Persistent small bilateral pleural effusions. 3. Appropriately positioned PICC. ACT 112: Negative or not required by law. Electronically signed by: Enio Griffiths M.D. 05/17/2019 7:06 AM
[2019-05-17] MEDS ORDERED: INSULIN GLARGINE SOLOSTAR 100 UNITS/ML 3 ML PEN SQ SCH (09:00)
[2019-05-17] MEDS: CHOLECALCIFEROL 1,000 UNITS TAB PO SCH (09:36)
[2019-05-17] MEDS: ASPIRIN 81 MG ECTAB PO SCH (09:36)
[2019-05-17] MEDS: LACTOBACILLUS ACIDOPHILUS (FLORANEX) TAB PO SCH ×2 (09:36→13:07)
[2019-05-17] MEDS: carvediloL 6.25 MG TAB PO SCH (09:36)
[2019-05-17] MEDS: AMLODIPINE BESYLATE 5 MG TAB PO SCH (09:37)
[2019-05-17] MEDS: INSULIN ASPART 100 UNITS/ML 3 ML PEN SC SCH ×2 (09:39→13:08)
--- NOTE | 2019-05-17 11:41 | Hospitalist Progress Note ---
Date of Service May 17, 2019 Assessment & Plan (1) Osteomyelitis: ASSESSMENT AND PLAN: This is a 64-year-old female who presents with right foot lateral aspect infection and x-ray shows possible osteomyelitis. MRI of the right foot confirmed osteomyelitis Has been on intravenous vancomycin and Zosyn ID consulted-recommend to continue vancomycin and Zosyn,for now, ff up wound culture, will need 6 weeks of IV antibiotics Blood cultures: Negative Wound culture: Coagulase negative Staphylococcus. No sensitivity to follow Wound care care consulted-status post bedside debridement at bedside and placement of wound VAC Orthopedic service consulted- no surgical intervention recommended, wound vac recommended Clinically much better We will get PICC line placement today and continue intravenous daptomycin for a total of 6 weeks Will discharge to [facility] this afternoon Will get daptomycin 325 mg IV every 48 hours for 6 weeks in total Weekly CBC CMP and CPK will be done ANETTE on CKD stage 4. 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 Mild cardiac enlargement with evidence of congestive failure. 2. There are small pleural effusions with bibasilar consolidation. This likely represents atelectasis. Clinical correlation will be required. IV fluid has been discontinued since this morning No more wheezing reported We will continue with her outpatient dose of Lasix Diabetes. A1c 8.0 Continue insulin Lantus Will increase usual insulin regimen by 10% for better blood glucose control upon discharge Blood sugar remains stable History of hypertension, on Coreg and amlodipine increase Amlodipine to 10mg daily for better BP control Blood pressure is controlled History of lower extremity edema. Hold off on Lasix in light of use of vancomycin, increase in crea Vitamin D deficiency, continue vitamin supplements. History of transient ischemic attacks, on aspirin, statin. Deep venous thrombosis prophylaxis - heparin SC Disposition: - Close monitoring in the medical floor. Level 1 full code. Lives at home, PT/OT eval Will need IV antibiotics x 6 weeks With lab placement today to continue intravenous antibiotic for a total of 6 weeks as per ID specialist Foot MRI: 1. Motion degraded exam. 2. Suggested skin ulcer of the lateral forefoot with peripherally corticated osseous erosions involving the lateral base of the fifth metatarsal and lateral aspect of the distal cuboid with adjacent soft tissue and bone marrow edema suspicious for areas of subacute to chronic osteomyelitis. 3. Diffuse subcutaneous edema of the foot may reflect cellulitis, venous stasis or lymphedema. Subjective 05/15 The patient was seen and examined in medical floor She is a 64-year-old female with past medical history significant for diabetes, proliferative diabetic retinopathy, diabetic polyneuropathy, hypertension, vitamin D deficiency, posterior capsular opacification, history of TIAs and depression who lives alone, comes because of right foot infection. MRI showed osteomyelitis involving the right foot Denies any symptoms as of today No pain, swelling, fever and/or chills 05/16 The patient was seen and examined in medical floor She has been stable without any symptoms Denies any pain in the right foot, redness and/or tenderness and no fever and/or chills 05/17 The patient was seen and examined in the medical floor She has had some shortness of breath last night and the chest x-ray did show fluid overload Shortness of breath relieved with intravenous Lasix Denies any symptoms today and she has been ambulating well She will be discharged to [facility] today Review of Systems Review of Systems: All systems reviewed and are unremarkable except as noted below Musculoskeletal: Right foot is warm wound VAC without any redness and/or tenderness locally and trace edema of the ankle Physical Exam Physical Exam: Lying in bed comfortably Constitutional: well developed and well nourished; no acute distress and not ill appearing Eyes: PERRL, conjunctivae normal, anicteric sclerae ENMT: external ear and nose normal, oropharynx normal Neck: trachea midline, no thyromegaly Respiratory: normal respiratory effort; no respiratory distress Auscultation: + diminished lung sounds Cardiovascular: Rate/Rhythm: regular rate and regular rhythm Heart Sounds: no murmur Gastrointestinal (Abdomen): Inspection/Auscultation: abdomen normal to inspection and normal bowel sounds Musculoskeletal: No acute arthritis in any joints Lymphatic: no cervical or axillary lymphadenopathy Results & Data Vital Signs (Past 12 Hours) Vital Signs Temp Pulse Resp BP Pulse Ox 05/17/19 07:19 37 C 63 15 139/73 91 05/17/19 04:31 96 05/17/19 03:08 74 20 173/74 H 97 Laboratory Results [facility] 12/27/19 06:08 Sodium 146 H Potassium 4.7 Chloride 120 H Carbon Dioxide 21 BUN 67 H Creatinine 3.27 H Glucose 118 H Calcium 8.5 Medications Administered Current Inpatient Medications Acetaminophen (Tylenol) 650 mg PO Q4H PRN PRN Reason: pain/fever Stop: 06/11/19 21:00 Amlodipine Besylate (Norvasc) 10 mg PO DAILY JOSE FRANCISCO Stop: 06/14/19 08:59 Last Admin: 05/17/19 09:37 Dose: 10 mg Documented by: Aspirin (Ecotrin Ectab) 81 mg PO DAILY JOSE FRANCISCO Stop: 06/12/19 08:59 Last Admin: 05/17/19 09:36 Dose: 81 mg Documented by: Atorvastatin Calcium (Lipitor) 10 mg PO HS REPLACED BY [facility] Stop: 06/12/19 20:59 Last Admin: 05/13/19 20:23 Dose: 10 mg Documented by: Carvedilol (Coreg) 6.25 mg PO BID JOSE FRANCISCO Stop: 06/11/19 21:00 Last Admin: 05/17/19 09:36 Dose: 6.25 mg Documented by: Dextrose (Dextrose 50%) 25 - 50 ml IV UD PRN; Protocol PRN Reason: Hypoglycemia Protocol Stop: 06/11/19 21:29 Glucagon (Glucagen) 1 mg IM UD PRN; Protocol PRN Reason: Hypoglycemia Protocol Stop: 06/11/19 21:29 Glucose (Glucose 40%) 15 - 30 gm PO UD PRN; Protocol PRN Reason: Hypoglycemia Protocol Stop: 06/11/19 21:29 Glucose (Dex4 Glucose) 4 - 8 tabs PO UD PRN; Protocol PRN Reason: Hypoglycemia Protocol Stop: 06/11/19 21:29 Heparin Sodium (Beef Lung) (Heparin Sod 10 Unit/Ml Flush) 5 ml FLUSH PRN PRN PRN Reason: Flush Stop: 06/16/19 01:14 Last Admin: 05/17/19 01:16 Dose: 5 ml Documented by: Heparin Sodium (Porcine) (Heparin Sodium (Porcine)) 5,000 units SQ Q8 JOSE FRANCISCO Stop: 06/12/19 21:59 Last Admin: 05/17/19 06:12 Dose: 5,000 units Documented by: Daptomycin 325 mg/ Syringe 6.5 mls @ 3.25 mls/min IV Q48H JOSE FRANCISCO; Protocol Stop: 06/27/19 08:59 Last Admin: 05/16/19 08:56 Dose: 3.25 mls/min Documented by: Insulin Aspart (Novolog Flexpen) 0 units SC ACHS REPLACED BY [facility] Stop: 06/11/19 21:00 Last Admin: 05/17/19 09:39 Dose: 5 units Documented by: Insulin Glargine (Lantus Solostar Pen) 25 units SQ QAM REPLACED BY [facility] Stop: 06/16/19 08:59 Last Admin: 05/17/19 09:38 Dose: 25 units Documented by: Lactobacillus Acidophilus (Floranex) 4 tab PO QIDM REPLACED BY [facility] Stop: 06/12/19 16:59 Last Admin: 05/17/19 09:36 Dose: 4 tab Documented by: Levalbuterol HCl (Xopenex 0.63 Mg/3 Ml Neb) 0.63 mg NEB Q6R PRN PRN Reason: Shortness Of Breath Or Wheezing Stop: 06/14/19 00:59 Miscellaneous (Carbohydrates For Hypoglycemia) 15 - 30 gm PO UD PRN PRN Reason: Hypoglycemia Treatment Stop: 06/11/19 21:29 Miscellaneous Information (Consult) 1 ea N/A UD PRN PRN Reason: Consult Stop: 06/13/19 09:01 Ondansetron HCl (Zofran) 4 mg IV Q6H PRN PRN Reason: Nausea Stop: 06/11/19 21:00 Polyethylene Glycol (Miralax Powder Packet) 17 gm PO DAILY PRN PRN Reason: Constipation Stop: 06/11/19 21:00 Vitamin D (Vitamin D3) 4,000 units PO DAILY REPLACED BY [facility] Stop: 06/12/19 08:59 Last Admin: 05/17/19 09:36 Dose: 4,000 units Documented by: (1) Osteomyelitis Laterality: right Osteomyelitis location: foot Osteomyelitis type: unspecified type Qualified Code(s): M86.9 - Osteomyelitis, unspecified
--- NOTE | 2019-05-18 13:57 | Discharge Summary ---
Date of Service May 18, 2019 Admission HPI Per Admitting Provider DICTATED BY: Arden Moran MD DATE OF ADMISSION: 05/12/2019 CHIEF COMPLAINT: Right foot infection. HISTORY OF PRESENT ILLNESS: A 64-year-old female with past medical history significant for diabetes, proliferative diabetic retinopathy, diabetic polyneuropathy, hypertension, vitamin D deficiency, posterior capsular opacification, history of TIAs and depression who lives alone, comes because of right foot infection. The patient in June of 2018, had a fall at home and right ankle pain and was found to have closed fracture of the distal end of right fibula and tibia, successful closed reduction in ER and also Ortho did open reduction internal fixation of right trimalleolar ankle fracture dislocation. She went to rehab and she did fine and since then she is on boots because she has some imbalance .Patient says because of neuropathy she could not feel anything in her feet. Couple of weeks ago she saw a bump in the lateral aspect of the right foot and since last Monday/Monday it is draining foul smelling fluid.She is not feeling anything but as its not getting better she came to the ER and x-ray showing possible osteomyelitis. The patient denies any fever, chills, no pain. Currently resting comfortably and hemodynamically stable. Denies any headache, has some blurred visions because of diabetic retinopathy. Following with ophthalmology. Denies any earache, no runny nose, no sore throat, no cough, no difficulty swallowing. Appetite is okay. Sleeps okay. No night sweats. She says she gained 20 pounds in last 10 months because of the ankle surgery and she is not ambulating much. Denies any chest pain, no shortness of breath, no nausea, no vomiting, no abdominal pain, no diarrhea, no constipation, no black stools or blood in the stools. No burning micturition, no hematuria. She takes Lasix and if she doesn't take it she says her legs get swollen. Admission Exam Per Admitting Provider GENERAL: The patient is of moderate build, not in acute distress. VITAL SIGNS: Temperature 36.6, pulse 78, respiratory rate 18, blood pressure 180/55, oxygen 96% room air. HEENT: No pallor, no icterus. Pupils equal, round, reactive. NECK: No JVD, no neck masses, no carotid bruit. CARDIOVASCULAR: S1, S2 heard, regular rate and rhythm, no murmur, no gallop. RESPIRATORY SYSTEM: Normal AP diameter. No accessory muscle use. No wheezing, no crackles. ABDOMEN: Soft, bowel sounds present, nontender. No distention. CENTRAL NERVOUS SYSTEM: Cranial nerves II-XII grossly intact, nonfocal. EXTREMITIES: Right foot open wound 2 x 3 cm, mild drainage and mild erythema surrounding the wound on the lateral aspect of the foot. Principal Diagnosis Osteomyelitis involving the lateral base of fifth metatarsal and lateral aspect of the distal cuboid of the right foot, CKD, diabetes type 2, hypertension Discharge Exam Constitutional well developed and well nourished; no acute distress and not ill appearing Eyes PERRL, conjunctivae normal, anicteric sclerae ENMT external ear and nose normal, oropharynx normal Neck trachea midline, no thyromegaly Respiratory normal respiratory effort; no respiratory distress Auscultation: + diminished lung sounds Cardiovascular Rate/Rhythm: regular rate and regular rhythm Heart Sounds: no murmur Gastrointestinal (Abdomen) Inspection/Auscultation: abdomen normal to inspection and normal bowel sounds Lymphatic no cervical or axillary lymphadenopathy Discharge Data Allergies Allergy/AdvReac Type Severity Reaction Status Date / Time No Known Allergies Allergy Unknown Verified 05/12/19 17:53 Consultations 05/12/19 18:46 ED Decision to Admit Stat 05/12/19 21:01 Consult Case Management - Discharge Planning Routine 05/13/19 08:00 Consult Infectious Diseases Routine Consult Wound Care Provider Routine 05/13/19 14:23 Consult Orthopedic Surgery Routine Ordered Studies 05/13/19 04:06 MR foot RT w/o con Urgent Hospital Course (1) Osteomyelitis: ASSESSMENT AND PLAN: This is a 64-year-old female who presents with right foot lateral aspect infection and x-ray shows possible osteomyelitis. MRI of the right foot confirmed osteomyelitis Has been on intravenous vancomycin and Zosyn ID consulted-recommend to continue vancomycin and Zosyn,for now, ff up wound culture, will need 6 weeks of IV antibiotics Blood cultures: Negative Wound culture: Coagulase negative Staphylococcus. No sensitivity to follow Wound care care consulted-status post bedside debridement at bedside and placement of wound VAC Orthopedic service consulted- no surgical intervention recommended, wound vac recommended Clinically much better We will get PICC line placement today and continue intravenous daptomycin for a total of 6 weeks Will discharge to [facility] this afternoon Will get daptomycin 325 mg IV every 48 hours for 6 weeks in total Weekly CBC CMP and CPK will be done ANETTE on CKD stage 4. Baseline 2.7 to 3.2 Crea 3.0--> 3.7 DC Vanco, repeat Vanco level 05/15, change to Daptomycin accordingly Remained stable clinically and at baseline She recently changed her public information relations manager to monitoring She was advised to have an appointment with them within 2 weeks Wheezing likely secondary to fluid overload mild wheezing noted CXR ordered: 1. Mild cardiac enlargement with evidence of congestive failure. 2. There are small pleural effusions with bibasilar consolidation. This likely represents atelectasis. Clinical correlation will be required. IV fluid has been discontinued since this morning No more wheezing reported We will continue with her outpatient dose of Lasix Diabetes. A1c 8.0 Continue insulin Lantus Will increase usual insulin regimen by 10% for better blood glucose control upon discharge Blood sugar remains stable History of hypertension, on Coreg and amlodipine increase Amlodipine to 10mg daily for better BP control Blood pressure is controlled History of lower extremity edema. Hold off on Lasix in light of use of vancomycin, increase in crea Vitamin D deficiency, continue vitamin supplements. History of transient ischemic attacks, on aspirin, statin. Deep venous thrombosis prophylaxis - heparin SC Disposition: - Close monitoring in the medical floor. Level 1 full code. Lives at home, PT/OT evcely Will need IV antibiotics x 6 weeks With lab placement today to continue intravenous antibiotic for a total of 6 weeks as per ID specialist Foot MRI: 1. Motion degraded exam. 2. Suggested skin ulcer of the lateral forefoot with peripherally corticated osseous erosions involving the lateral base of the fifth metatarsal and lateral aspect of the distal cuboid with adjacent soft tissue and bone marrow edema suspicious for areas of subacute to chronic osteomyelitis. 3. Diffuse subcutaneous edema of the foot may reflect cellulitis, venous stasis or lymphedema. Total Time Total Time Spent Total Time Spent (In Minutes): 40 minutes Total Time Includes: Examination of the Patient, Discharge Planning, Medication Reconciliation and 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 With Other Providers Discharge Plan Discharge Items Patient Disposition: Transfer Inpatient Rehab Fac Reason For Visit: RIGHT FOOT INFECTION Discharge Diagnosis: Osteomyelitis involving the lateral base of fifth metatarsal and lateral aspect of the distal cuboid of the right foot, CKD, diabetes type 2, hypertension Condition on Discharge: Good Activity: Resume your previous activity Non-emergency contact: Primary Care Provider Call non-emergency contact if: you have any medication questions Follow-up/Referrals: Melissa Bronson, [Primary Care Provider] - (Please make an appointment with Dr. Haines within 7 days. Please make a follow-up appointment with your public information relations manager within 2 weeks) Diet: Carb Consistent or DM2 and Heart Healthy Ambulatory Orders: Complete Blood Count with Diff (Routine) Timeframe: 5 Weeks Location: Determined by Patient Ordered By: Emmanuel Horton Creatine Kinase (Routine) Timeframe: 5 Weeks Location: Determined by Patient Ordered By: Emmanuel Horton Comprehensive Metabolic Panel (Routine) Timeframe: 5 Weeks Location: Determined by Patient Ordered By: Emmanuel Vazquez Attending Provider Instructions: Continue intravenous antibiotic for total of 6 weeks as prescribed Will need to have weekly CBC, CMP and CPK-report to ID Nonweightbearing on right foot Continue wound care management as scheduled Pending Studies at Discharge: No Stand-Alone Forms: [facility] Skilled Items Patient informed of condition?: Yes DNR: No Discharge Level of Care: Skilled Communicable Disease: No Discharge Prognosis: Improving Lines: PICC Urinary Catheter: No Medications and DC Order Prescriptions: New Lactobacillus acidoph-L.bulgar [Floranex] 1 million cell Tablet 4 tab PO QIDM 30 Days Qty: 480 RF: 0 daptomycin 350 mg recon soln 325 mg IV Q48H Qty: 20 RF: 0 Continued coenzyme Q10 [CoQ-10] 100 mg Capsule 100 mg PO DAILY RF: 0 cholecalciferol (vitamin D3) [Vitamin D3] 2,000 unit Capsule 4,000 unit PO DAILY RF: 0 carvedilol 6.25 mg Tablet 6.25 mg PO BID Qty: 30 RF: 0 acetaminophen [Tylenol Extra Strength] 500 mg tablet 500 mg PO Q4H PRN (Reason: fever or pain) Qty: 90 RF: 0 Basaglar KwikPen U-100 Insulin 100 unit/mL (3 mL) insulin pen 30 unit SUBCUT QAM RF: 0 aspirin [Ecotrin Low Strength] 81 mg tablet,delayed release (DR/EC) 81 mg PO DAILY RF: 0 furosemide [Lasix] 40 mg Tablet 40 mg PO BID RF: 0 atorvastatin 10 mg 10 mg PO HS RF: 0 Changed amlodipine 5 mg tablet 10 mg PO DAILY Qty: 0 RF: 0 Discharge Orders: Discharge Order (Routine); Ordered 05/17/19 Ordered By: Emmanuel Horton Admission Data Admit Date/Time: 05/12/19 19:33 Attending Provider: Emmanuel Horton Admit Provider: Arden Moran Primary Care Provider: Melissa Bronson Other Providers: Arden Moran ; Teofilo Perry Michelle M. ; Can Ricardo ; Klarissa Forde ; Carmine Silva ; Rey Irene ; Artem Acharya ; [facility] ; Sheldon Hurst. ; [facility] Other Interventions: Discharge Summary Assessment (RN) Last Done: 05/17/19 13:25 DC Date/Time DO NOT enter until pt leaves facility: 05/17/19 16:25
== END 2019-05-17 16:25 | DRG 982 ==
LOC: ED 16:54 → SUATTDRO 19:33 → 3N 19:33

== ENCOUNTER 2019-05-18 13:19 | Observation (INO) ==
--- NOTE | 2019-05-18 13:54 | Emergency Department Note ---
Entered by Esdras Sousa acting as a scribe for History of Present Illness General Chief complaint: Abnormal Labs/Diagnostic Testing Time Seen by Provider: 05/18/19 13:30 Source: patient History of Present Illness Provider complaint: Abnormal labs Onset (ago): hour(s) (Today) Location: head Pain Consistency: + constant Relieved By: + none Associated symptoms: + other (Fatigue); no chest pain and no shortness of breath The patient is a 64 year old female who presents to the Emergency Room after having abnormal labs today while at [facility]. The patient's lab work showed her Hemoglobin was low, around 7. The patient reports that she was at [facility] to treat an infection on her right lower extremity. She adds that she was hospitalized for 5 days for the infection and was treated with IV ant ibiotics. The patient endorses increased generalized fatigue over the past couple of days but denies any chest pain or shortness of breath. The patient also denies any hematochezia or melena. She states that she was sent here for admission and a blood transfusion. Home Medications Home Medications Medication Instructions Recorded Confirmed Type cholecalciferol (vitamin D3) 4,000 unit PO DAILY 07/07/18 05/18/19 History [Vitamin D3] aspirin [Ecotrin Low Strength] 81 mg PO DAILY 05/12/19 05/18/19 History furosemide [Lasix] 40 mg PO BID 05/12/19 05/18/19 History Lactobacillus acidoph-L.bulgar 4 tab PO QIDM 30 Days #480 tab 05/17/19 05/18/19 Rx [Floranex] amlodipine 10 mg PO DAILY #0 tab 05/17/19 05/18/19 Rx daptomycin 325 mg IV Q48H #20 ea 05/17/19 05/18/19 Rx acetaminophen 650 mg PO Q4H PRN 05/18/19 05/18/19 History atorvastatin 10 mg PO HS 05/18/19 05/18/19 History bisacodyl 10 mg TN DAILY PRN 05/18/19 05/18/19 History carvedilol 6.25 mg PO BIDM 05/18/19 05/18/19 History docusate sodium 100 mg PO BID 05/18/19 05/18/19 History heparin (porcine) 5,000 unit SUBCUT Q8H 05/18/19 05/18/19 History insulin glargine [Lantus U-100 30 unit SUBCUT DAILY 05/18/19 05/18/19 History Insulin] insulin regular human [Humulin R 1 sliding scale dose SUBCUT 05/18/19 05/18/19 History Regular U-100 Insuln] USEASDIRECTD polyethylene glycol 3350 [Miralax] 17 g PO DAILY PRN 05/18/19 05/18/19 History sennosides-docusate sodium 1 tab-cap PO DAILY PRN 05/18/19 05/18/19 History [Senokot-S] sodium chloride 0.9 % (flush) 5 ml IV Q8H 05/18/19 05/18/19 History [Normal Saline Flush] sodium phosphates [Fleet Enema] 118 ml TN DAILY PRN 05/18/19 05/18/19 History Allergies Allergy/AdvReac Type Severity Reaction Status Date / Time No Known Allergies Allergy Unknown Verified 05/18/19 14:09 Past Med/Surg History Medical History Chronic kidney disease (CKD), stage IV (severe) (Chronic) Closed fracture of distal end of right fibula and tibia (Inactive) Diabetic neuropathy (Chronic) Dyslipidemia (Chronic) Foot osteomyelitis, right History of depression (Chronic) Hypertension (Chronic) Type 2 diabetes mellitus (Chronic) Surgical History History of appendectomy (Resolved) Status post right foot surgery Family History Sister Ovarian cancer Brother Hypertension Social History Preferred Language: Upper Sorbian 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: Effective Head Screen Worker Required: No Beliefs That Will Affect Care: None marital status: Single Current Living Situation: Alone and Other Current Living Situation Comment: [facility] currently at rehab but typically lives at home alone Other Information That Helps Us Care for You: No Feels Safe at Home: Yes Safety Concerns: Feels Safe At This Time Smoking Status: Never smoker Second Hand Exposure: No ; Hx Alcohol Use: No Hx Substance Use: No Review of Systems See HPI for pertinent positives & negatives. and A total of 10 systems reviewed and were otherwise negative Physical Exam Vital Signs Vital Signs - 24 hr 05/18/19 13:25 05/18/19 13:35 05/18/19 13:47 Temperature 36.6 C Temperature Source Oral Pulse Rate 63 66 Pulse Rate [Left] Pulse Rate from SpO2 Sensor 64 Respiratory Rate 22 18 Respiratory Effort / Characteristics Non-Labored Spontaneous Blood Pressure 121/53 L 121/53 L Blood Pressure [Right Arm] Blood Pressure Mean 63 75 Blood Pressure Mean [Right Arm] Blood Pressure Position Lying Blood Pressure Position [Right Arm] Pulse Oximetry 97 96 96 Oxygen Delivery Method Nasal Cannula Nasal Cannula Oxygen Flow Rate 3 3 Sepsis Recent Fever Within 48 Hours No Sepsis New/Unexplained Change in Mental Status No Sepsis Action Taken by Nursing No Action Required 05/18/19 13:51 05/18/19 14:00 05/18/19 14:44 Temperature Temperature Source Pulse Rate 64 63 Pulse Rate [Left] 61 Pulse Rate from SpO2 Sensor 64 63 Respiratory Rate 22 18 18 Respiratory Effort / Characteristics Spontaneous Blood Pressure Blood Pressure [Right Arm] 165/65 H Blood Pressure Mean Blood Pressure Mean [Right Arm] 98 Blood Pressure Position Blood Pressure Position [Right Arm] Lying Pulse Oximetry 98 96 94 Oxygen Delivery Method Nasal Cannula Oxygen Flow Rate 3 Sepsis Recent Fever Within 48 Hours Sepsis New/Unexplained Change in Mental Status Sepsis Action Taken by Nursing 05/18/19 14:45 Temperature Temperature Source Pulse Rate 66 Pulse Rate [Left] Pulse Rate from SpO2 Sensor 66 Respiratory Rate 24 Respiratory Effort / Characteristics Blood Pressure 165/65 H Blood Pressure [Right Arm] Blood Pressure Mean 89 Blood Pressure Mean [Right Arm] Blood Pressure Position Blood Pressure Position [Right Arm] Pulse Oximetry 94 Oxygen Delivery Method Oxygen Flow Rate Sepsis Recent Fever Within 48 Hours Sepsis New/Unexplained Change in Mental Status Sepsis Action Taken by Nursing GENERAL: Patient is awake alert in no acute distress patient is resting comfortably and showing no signs of anxiety EYES: The conjunctivae are clear. The pupils are round and reactive. EARS, NOSE, MOUTH AND THROAT: The nose is without any evidence of any deformity. Mucous membranes are moist. Tongue is midline. NECK: The neck is nontender and supple. RESPIRATORY: Diminished breath sounds are noted throughout. There are rales at both bases. CARDIOVASCULAR: Regular rate and rhythm noted there no murmurs rubs or gallops normal S1 normal S2. GASTROINTESTINAL: The abdomen is soft. Abdomen is nontender. Rectal exam revealed brown stool which was heme-negative. MUSCULOSKELETAL/EXTREMITIES: There is no evidence of gross deformity full range of motion is noted in the hips and shoulders. SKIN: There is no obvious evidence of any rash. There are no petechiae, pallor or cyanosis noted. There is ecchymosis on the left AC consistent with recent PICC line placement. NEUROLOGIC: Patient is awake alert and oriented x3. Course Course 1337: Past medical records reviewed. The patient was evaluated in room C10, and a complete history and physical examination were performed. I discussed the treatment plan with the patient and she was agreeable. 1406: I discussed the patient's case with Anne MCNULTY who is under Dr. Nan Franco. They agreed to accept the patient for further evaluation. Consultations Consultation #1: I discussed the patient's case with Anne MCNULTY who is under Dr. Nan Franco. They agreed to accept the patient for further evaluation. Time: 14:06 Medical Decision Making Differential Diagnosis Differential Diagnosis includes but is not limited to dehydration, stroke, anemia, hypoglycemia, hyponatremia, hypernatremia, urinary tract infection, pneumonia, bronchitis, sepsis, gastroenteritis, additional abdominal pathology, metabolic abnormalities and infections. Medical Records Attestation: I reviewed the patient's medical records. Home Medications Current Medication List: was personally reviewed by me Laboratory Data Attestation: I reviewed the patient's lab results. Result diagrams: 05/18/19 13:56 05/18/19 13:56 Lab Results 05/18/19 05/18/19 05/18/19 Range/Units 13:56 13:56 13:56 WBC 8.07 (4.8-10.8) K/uL RBC 2.38 L (4.2-5.4) M/uL Hgb 7.2 L (12.0-16.0) g/dL Hct 22.6 L (37-47) % MCV 95.0 (80-100) fL MCH 30.3 (25-34) pg MCHC 31.9 L (32-36) g/dL RDW Std Deviation 47.5 H (36.4-46.3) fL RDW Coeff of Rico 13.8 (11.5-14.5) % Plt Count 212 (130-400) K/uL MPV 9.0 (7.4-10.4) fL Immature Gran % (Auto) 0.2 % Neut % (Auto) 69.8 % Lymph % (Auto) 17.7 % Wythe % (Auto) 9.0 % Eos % (Auto) 3.1 % Baso % (Auto) 0.2 % Immature Gran # (Auto) 0.02 (0.00-0.02) K/uL Neut # (Auto) 5.62 (1.4-6.5) K/uL Lymph # (Auto) 1.43 (1.2-3.4) K/uL Wythe # (Auto) 0.73 H (0.11-0.59) K/uL Eos # (Auto) 0.25 (0-0.5) K/uL Baso # (Auto) 0.02 (0-0.2) K/uL Polychromasia 1+ PT 10.4 (9.0-12.0) Seconds INR 1.0 (0.9-1.1) APTT 28.2 (21.0-31.0) Seconds PTT Ratio 1.0 Sodium 143 (136-145) mmol/L Potassium 5.1 (3.5-5.1) mmol/L Chloride 116 H (98-107) mmol/L Carbon Dioxide 20 L (21-32) mmol/L Anion Gap 7.0 (3-11) BUN 85 H (7-18) mg/dl Creatinine 3.73 H D (0.6-1.2) mg/dl Est Cr Clr Drug Dosing 15.2 ml/min Est GFR ( Amer) 14.0 Est GFR (Non-Af Amer) 12.1 BUN/Creatinine Ratio 22.8 H (10-20) Glucose 213 H (70-99) mg/dl Calcium 8.3 L (8.5-10.1) mg/dl Iron (35-150) mcg/dl TIBC (250-450) mcg/dl Transferrin (200-360) mg/dl Ferritin (8-388) ng/ml Total Bilirubin 0.3 (0.2-1) mg/dl AST 15 (15-37) U/L ALT 24 (12-78) U/L Alkaline Phosphatase 68 (45-117) U/L Troponin I 0.029 (0-0.045) ng/ml NT-Pro-B Natriuret Pep (0-900) pg/ml Total Protein 6.6 (6.4-8.2) gm/dl Albumin 2.8 L (3.4-5.0) gm/dl Globulin 3.8 (2.5-4.0) gm/dl Albumin/Globulin Ratio 0.7 L (0.9-2) Lipase 95 (73-393) U/L Blood Type Antibody Screen Crossmatch 05/18/19 05/18/19 Range/Units 13:56 13:56 WBC (4.8-10.8) K/uL RBC (4.2-5.4) M/uL Hgb (12.0-16.0) g/dL Hct (37-47) % MCV (80-100) fL MCH (25-34) pg MCHC (32-36) g/dL RDW Std Deviation (36.4-46.3) fL RDW Coeff of Rico (11.5-14.5) % Plt Count (130-400) K/uL MPV (7.4-10.4) fL Immature Gran % (Auto) % Neut % (Auto) % Lymph % (Auto) % Wythe % (Auto) % Eos % (Auto) % Baso % (Auto) % Immature Gran # (Auto) (0.00-0.02) K/uL Neut # (Auto) (1.4-6.5) K/uL Lymph # (Auto) (1.2-3.4) K/uL Wythe # (Auto) (0.11-0.59) K/uL Eos # (Auto) (0-0.5) K/uL Baso # (Auto) (0-0.2) K/uL Polychromasia PT (9.0-12.0) Seconds INR (0.9-1.1) APTT (21.0-31.0) Seconds PTT Ratio Sodium (136-145) mmol/L Potassium (3.5-5.1) mmol/L Chloride (98-107) mmol/L Carbon Dioxide (21-32) mmol/L Anion Gap (3-11) BUN (7-18) mg/dl Creatinine (0.6-1.2) mg/dl Est Cr Clr Drug Dosing ml/min Est GFR ( Amer) Est GFR (Non-Af Amer) BUN/Creatinine Ratio (10-20) Glucose (70-99) mg/dl Calcium (8.5-10.1) mg/dl Iron 24 L (35-150) mcg/dl TIBC 211 L (250-450) mcg/dl Transferrin 167 L (200-360) mg/dl Ferritin 197.7 (8-388) ng/ml Total Bilirubin (0.2-1) mg/dl AST (15-37) U/L ALT (12-78) U/L Alkaline Phosphatase (45-117) U/L Troponin I (0-0.045) ng/ml NT-Pro-B Natriuret Pep 6473 H (0-900) pg/ml Total Protein (6.4-8.2) gm/dl Albumin (3.4-5.0) gm/dl Globulin (2.5-4.0) gm/dl Albumin/Globulin Ratio (0.9-2) Lipase (73-393) U/L Blood Type A Positive Antibody Screen NEGATIVE Crossmatch See Detail Imaging Data Radiologist's Impression: Radiology results as stated below per my review and the radiologist's interpretation: XR chest 1V portable CLINICAL HISTORY: Chest pain. COMPARISON STUDY: Chest radiograph May 16, 2019. FINDINGS: A left PICC remains in place. There is no pneumothorax. There are small bilateral pleural effusions with persistent bibasilar opacities. Pulmonary edema persists. Cardiomediastinal silhouette is stable. Appearance of the chest is unchanged. Calcification projecting of the right hemithorax is unchanged. IMPRESSION: No change in appearance of the chest with pulmonary edema, small bilateral pleural effusions and bibasilar opacities. ACT 112: Negative or not required by law. Electronically signed by: Go Romeo M.D. 05/18/2019 2:51 PM ECG Data Attestation: I personally reviewed and interpreted this ECG as follows: Indication: + other (Abnormal labs) Rate (beats per minute): 64 Rhythm: + normal sinus ECG ST segments: no ST depression and no ST elevation ECG Findings: no PACs and no PVCs Comparison ECG Date: from (07/08/18) Change: no significant change Blood Pressure Blood Pressure Findings: Elevated blood pressure Blood Pressure Disposition: further management by hospitalist CLOTILDE Wells The patient is a 64-year-old female who presented to the emergency department for an evaluation of low hemoglobin and generalized weakness. The patient has a history of renal insufficiency. Currently she is admitted at [facility] for reha b. She is being treated for a right lower extremity infection with IV antibiotics. She was noted to have elevated creatinine as well as anemia on outpatient laboratory studies. She also has some degree of pulmonary edema on physical exam. She was placed on supplemental oxygen. The patient was r eevaluated multiple times. Her stool was heme-negative. I discussed her case with the on-call [facility] hospitalist group. They have agreed to evaluate the patient in the emergency department for further management and disposition. Impression & Plan Anemia, Hypoxia, ANETTE (acute kidney injury) Discharge Plan Visit Data *Final* Discharge Date/Time: 05/18/19 16:58 Chief Complaint: Abnormal Labs/Diagnostic Testing ED Provider: Byron Bhatia Discharge Problem: Anemia, Hypoxia, ANETTE (acute kidney injury) Patient Disposition: Admitted As Inpatient Discharge Instructions Interventions: ED Discharge Assessment Last Done: 05/18/19 16:58 Discharge Problem: Anemia Qualifiers: Anemia type: unspecified type Qualified Code(s): D64.9 - Anemia, unspecified The scribe's documentation has been prepared under my direction and personally reviewed by me in its entirety. I confirm that the note above accurately reflects all work, treatment, procedures, and medical decision making performed by me.
[2019-05-18 14:08] LABS: Hematocrit (blood only) 22.6 % (37-47); Hemoglobin 7.2 g/dL (12.0-16.0); Mean Corpuscular Hemoglobin 30.3 pg (25-34); Mean Corpuscular Hgb Conc 31.9 g/dL (32-36); Platelet Count 212 K/uL (130-400); RDW Coefficient of Variation 13.8 % (11.5-14.5); RDW Standard Deviation 47.5 fL (36.4-46.3); Red Blood Count 2.38 M/uL (4.2-5.4); White Blood Count 8.07 K/uL (4.8-10.8)
[2019-05-18 14:23] LABS: Albumin Level 2.8 gm/dl (3.4-5.0); BUN Creatinine Ratio 22.8 (10-20); Calcium 8.3 mg/dl (8.5-10.1); Creatinine Clr Calc Pharmacy 15.2 ml/min; Est GFR (Non-African American) 12.1; Potassium 5.1 mmol/L (3.5-5.1)
[2019-05-18 14:24] LABS: Partial Thromboplastin Time 28.2 Seconds (21.0-31.0); Prothrombin Time 10.4 Seconds (9.0-12.0)
[2019-05-18 14:28] LABS: Albumin Globulin Ratio 0.7 (0.9-2); Bilirubin,Total 0.3 mg/dl (0.2-1); Globulin 3.8 gm/dl (2.5-4.0); Total Protein 6.6 gm/dl (6.4-8.2); Troponin I 0.029 ng/ml (0-0.045)
[2019-05-18 14:30] LABS: Basophils # (auto) 0.02 K/uL (0-0.2); Basophils % (auto) 0.2 %; Eosinophils # (auto) 0.25 K/uL (0-0.5); Eosinophils % (auto) 3.1 %; Immature Granulocytes # (auto) 0.02 K/uL (0.00-0.02); Immature Granulocytes % (auto) 0.2 %; Lymphocytes # (auto) 1.43 K/uL (1.2-3.4); Lymphocytes % (auto) 17.7 %; Monocytes # (auto) 0.73 K/uL (0.11-0.59); Neutrophils # (auto) 5.62 K/uL (1.4-6.5); Neutrophils % (auto) 69.8 %; Polychromasia 1+
--- NOTE | 2019-05-18 14:52 | XRay Report ---
XR chest 1V portable CLINICAL HISTORY: Chest pain. COMPARISON STUDY: Chest radiograph May 16, 2019. FINDINGS: A left PICC remains in place. There is no pneumothorax. There are small bilateral pleural e ffusions with persistent bibasilar opacities. Pulmonary edema persists. Cardiomediastinal silhouette is stable. Appearance of the chest is unchanged. Calcification projecting of the right hemithorax is unchanged. IMPRESSION: No change in appearance of the chest with pulmonary edema, small bilateral pleural effus ions and bibasilar opacities. ACT 112: Negative or not required by law. Electronically signed by: Go Romeo M.D. 05/18/2019 2:51 PM
--- NOTE | 2019-05-18 15:23 | History & Physical Report ---
Date of Service May 18, 2019 Assessment & Plan (1) Anemia: -Admit to [facility] with telemetry -Patient sent from [facility] to ED for evaluation of anemia after routine labs drawn this morning showed a hemoglobin of 7.0 -Hgb in ED 7.2 -Likely multifactorial due to CKD, possible GI bleed, infection, IV antibiotics -Baseline hemoglobin ~ 8.5-9.0 -Required PRBC transfusion 06/2018 for anemia, was also noted to be iron deficient at that time and received IV iron infusions; was to be followed with the [facility] anemia clinic for possible initiation of Procrit injections however patient was lost to follow-up -Patient reports one episode of bright red bleeding per rectum during recent admission -Has not had a screening colonoscopy, will need to be set up as an outpatient -Obtain iron panel, folate, vitamin B12, SPEP, Hemoccult stools -Transfuse 1 unit PRBC (2) Hypoxia: -Patient was found to be hypoxic on room air at 83%, currently saturating well on two thirds of oxygen via nasal cannula -Possibly secondary to volume overload as CXR shows some pulmonary edema -Low suspicion for PE given normal HR, no pleuritic chest pain, and patient received DVT prophylaxis during recent admission -IV diuresis with PRBC transfusion -Check resting echo (3) Foot osteomyelitis, right: -Continue wound VAC -Continue IV daptomycin every 48 hours (4) Chronic kidney disease (CKD), stage IV (severe): - baseline creat runs in the low to mid threes - creat noted to be 3.7 today - continue to monitor, avoid nephrotoxic agents when able - Follows with [facility] nephrology, likely will need follow-up after discharge for evaluation of possible Procrit injections (5) Type 2 diabetes mellitus: -Hgb A1c 8.0 04/2019 -Lantus and NovoLog per protocol hospitalized (6) Hypertension: -BP controlled, continue amlodipine and carvedilol (7) Dyslipidemia: -Continue statin (8) DVT prophylaxis: -SCDs due to anemia History of Present Illness Chief Complaint: Anemia Primary Care Provider: [facility] 64-year-old female who was sent to the ED from [facility] for evaluation of anemia. Patient recently admitted to [facility] 05/12 through 05/17 for right diabetic foot ulcer with osteomyelitis. Patient had wound VAC placed and was discharged on IV daptomycin. Routine labs were obtained today at [facility] that showed a hemoglobin of 7.0 and patient was sent to the ED for further evaluation. Patient reports she has been feeling well since her discharge. Reports she has had some mild shortness of breath recently. During recent admission, routine oral Lasix was held due to receiving IV vancomycin and mild increase in creatinine. Patient also reports she had one episode of bright red bleeding per rectum while admitted. Patient denies abdominal pain, vomiting, dark tarry stools. Reports she has never had a colonoscopy. Review of records show the patient was anemic 06/2018 and received 1 unit PRBC. She was also noted to be iron deficient and was receiving IV iron infusions. Patient was to [facility] w-up with the [facility] anemia clinic for possible Procrit injections however she was lost to follow-up. Patient denies chest pain. No lightheadedness, dizziness, diaphoresis, syncopal events. Denies fevers and chills. No urinary symptoms. During my exam, patient was noted to be on oxygen. When I placed the patient back on room air, she desaturated to 83% and was asymptomatic. Oxygen 2 L via nasal cannula was reapplied and patient was saturating 94%. Labs show hemoglobin 7.2. Patient is hemodynamically stable. Allergies Allergy/AdvReac Type Severity Reaction Status Date / Time No Known Allergies Allergy Unknown Verified 05/18/19 14:09 Home Medications Home Medications Medication Instructions Recorded Confirmed Type cholecalciferol (vitamin D3) 4,000 unit PO DAILY 07/07/18 05/18/19 History [Vitamin D3] aspirin [Ecotrin Low Strength] 81 mg PO DAILY 05/12/19 05/18/19 History furosemide [Lasix] 40 mg PO BID 05/12/19 05/18/19 History Lactobacillus acidoph-L.bulgar 4 tab PO QIDM 30 Days #480 tab 05/17/19 05/18/19 Rx [Floranex] amlodipine 10 mg PO DAILY #0 tab 05/17/19 05/18/19 Rx daptomycin 325 mg IV Q48H #20 ea 05/17/19 05/18/19 Rx acetaminophen 650 mg PO Q4H PRN 05/18/19 05/18/19 History atorvastatin 10 mg PO HS 05/18/19 05/18/19 History bisacodyl 10 mg MI DAILY PRN 05/18/19 05/18/19 History carvedilol 6.25 mg PO BIDM 05/18/19 05/18/19 History docusate sodium 100 mg PO BID 05/18/19 05/18/19 History heparin (porcine) 5,000 unit SUBCUT Q8H 05/18/19 05/18/19 History insulin glargine [Lantus U-100 30 unit SUBCUT DAILY 05/18/19 05/18/19 History Insulin] insulin regular human [Humulin R 1 sliding scale dose SUBCUT 05/18/19 05/18/19 History Regular U-100 Insuln] USEASDIRECTD polyethylene glycol 3350 [Miralax] 17 g PO DAILY PRN 05/18/19 05/18/19 History sennosides-docusate sodium 1 tab-cap PO DAILY PRN 05/18/19 05/18/19 History [Senokot-S] sodium chloride 0.9 % (flush) 5 ml IV Q8H 05/18/19 05/18/19 History [Normal Saline Flush] sodium phosphates [Fleet Enema] 118 ml MI DAILY PRN 05/18/19 05/18/19 History Past Med/Surg History Medical History Chronic kidney disease (CKD), stage IV (severe) (Chronic) Closed fracture of distal end of right fibula and tibia (Inactive) Diabetic neuropathy (Chronic) Dyslipidemia (Chronic) Foot osteomyelitis, right History of depression (Chronic) Hypertension (Chronic) Type 2 diabetes mellitus (Chronic) Surgical History History of appendectomy (Resolved) Status post right foot surgery Family History Sister Ovarian cancer Brother Hypertension Social History Preferred Language: Citizen Of [place] 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 Beliefs That Will Affect Care: None marital status: Single Current Living Situation: Alone Feels Safe at Home: Yes Smoking Status: Never smoker Second Hand Exposure: No ; Hx Alcohol Use: No Hx Substance Use: No Review of Systems Review of Systems: ROS per HPI, all other systems reviewed and negative Physical Exam Constitutional: WD/WN, vitals as above Eyes: PERRL, conjunctivae normal, anicteric sclerae ENMT: external ear and nose normal, oropharynx normal Respiratory: normal respiratory effort; no respiratory distress Auscultation: + diminished lung sounds and + crackles (Faint, bilateral bases) Cardiovascular: Rate/Rhythm: regular rate and regular rhythm Vessels: normal peripheral pulses Extremities: no edema Gastrointestinal (Abdomen): normal bowel sounds, soft, nontender, no hepatosplenomegaly Musculoskeletal: no cyanosis or clubbing, extremities motor strength 5/5 Skin: no rashes, warm and dry Wound VAC in place to right lateral ankle/foot Neurologic: PERRL, EOMI, accommodation nl, no face palsy, no dysarthria Psychiatric: A+Ox3, euthymic affect Results & Data Vital Signs (Past 12 Hours) Vital Signs Temp Pulse Pulse Resp BP BP Pulse Ox 05/18/19 14:44 61 18 165/65 H 94 05/18/19 13:47 96 05/18/19 13:35 36.6 C 66 18 121/53 L 96 Laboratory Results Short CBC 05/18/19 Range/Units 13:56 WBC 8.07 (4.8-10.8) K/uL Hgb 7.2 L (12.0-16.0) g/dL Hct 22.6 L (37-47) % Plt Count 212 (130-400) K/uL BMP 05/18/19 13:56 Sodium 143 Potassium 5.1 Chloride 116 H Carbon Dioxide 20 L BUN 85 H Creatinine 3.73 H D Glucose 213 H Calcium 8.3 L Cardiac Enzymes 05/18/19 Range/Units 13:56 Troponin I 0.029 (0-0.045) ng/ml Liver Function 05/18/19 Range/Units 13:56 Total Bilirubin 0.3 (0.2-1) mg/dl AST 15 (15-37) U/L ALT 24 (12-78) U/L Alkaline Phosphatase 68 (45-117) U/L Albumin 2.8 L (3.4-5.0) gm/dl Diagnostic Findings CXR IMPRESSION: No change in appearance of the chest with pulmonary edema, small bilateral pleural effusions and bibasilar opacities. Code Status & VTE Plan Code Status Patient is a DNR as per my discussion with her. VTE Prophylaxis Plan VTE Prophylaxis will be ordered: Yes Supervising Physician Co-Signing Physician Notes HISTORY: Record reviewed. Patient interviewed and examined in ED. Care coordinated with HAMLET Fraire. Please refer to her documentation for complete history. Briefly, 64 YO female with history of hypertension, DM, CKD, and osteomyelitis of foot. Transferred to [facility] for inpatient rehab yesterday. Hgb today at [facility] was 7, compared to recent baseline of 8-9. Had an episode of mild hematochezia a few days ago; has not had colonoscopy. EXAM: General- no distress Lungs- bibasilar rales; no respiratory distress Cardiovascular- RRR; I/ systolic murmur at base; no gallop appreciated; + JVD; trace pretibial edema Abdomen- + bowel sounds, soft, nontender Extremities- no cyanosis; no calf tenderness; right foot with WoundVac, mild swelling and erythema laterally Neuro- alert, oriented Skin- warm & dry DATA: Hgb 7.2. MCV 95. WBC 8070 plts 212,000 BUN 85, creatinine 3.73, K 5.1 Other lab studies as noted. Chest x-ray reviewed and demonstrated mild pulmonary edema (preliminary interpretation). ASSESSMENT AND PLAN: ANEMIA Chronic anemia, now worse that baseline. CKD and infection probable contributing factors. Episode of mild rectal bleeding a few days ago. No abdominal pain or melena. Check Fe studies, B12, folate, SPEP, fecal occult blood. Should have colonoscopy when possible. Transfuse 1 unit pRBC's today. Follow H/H. CHF JVD and rales noted on exam. Chest x-ray shows pulmonary edema. Check echo. IV furosemide with pRBC's. Titrate diuretics. Follow. CKD IV Creatinine 3.73 compared to recent baseline of 3 - 3.47. Transfuse as necessary to maintain adequate H/H. Titrate diuretics. Further management per Nephrology. OSTEOMYELITIS Continue IV antibiotics and wound care as recommended by ID and Wound Care Team. Please refer to JEROME Sue's documentation for discussion of other issues. (1) Anemia Anemia type: unspecified type Qualified Code(s): D64.9 - Anemia, unspecified (2) Hypertension Hypertension type: essential hypertension Qualified Code(s): I10 - Essential (primary) hypertension
[2019-05-18 15:28] LABS: Reticulocyte % 2.7 % (0.5-2.0); Reticulocytes # 0.07 10^6/uL (0.02-0.10)
[2019-05-18 15:34] LABS: Ferritin 197.7 ng/ml (8-388)
--- NOTE | 2019-05-18 16:01 | 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 Note ---
Date of Service: May 18, 2019 HISTORY: Record reviewed. Patient interviewed and examined in ED. Care coordinated with HAMLET Fraire. Please refer to her documentation for complete history. Briefly, 64 YO female with history of hypertension, DM, CKD, and osteomyelitis of foot. Transferred to [facility] for inpatient rehab yesterday. Hgb today at [facility] was 7, compared to recent baseline of 8-9. Had an episode of mild hematochezia a few days ago; has not had colonoscopy. EXAM: General- no distress Lungs- bibasilar rales; no respiratory distress Cardiovascular- RRR; I/ systolic murmur at base; no gallop appreciated; + JVD; trace pretibial edema Abdomen- + bowel sounds, soft, nontender Extremities- no cyanosis; no calf tenderness; right foot with WoundVac, mild swelling and erythema laterally Neuro- alert, oriented Skin- warm & dry DATA: Hgb 7.2. MCV 95. WBC 8070 plts 212,000 BUN 85, creatinine 3.73, K 5.1 Other lab studies as noted. Chest x-ray reviewed and demonstrated mild pulmonary edema (preliminary interpretation). ASSESSMENT AND PLAN: ANEMIA Chronic anemia, now worse that baseline. CKD and infection probable contributing factors. Episode of mild rectal bleeding a few days ago. No abdominal pain or melena. Check Fe studies, B12, folate, SPEP, fecal occult blood. Should have colonoscopy when possible. Transfuse 1 unit pRBC's today. Follow H/H. CHF JVD and rales noted on exam. Chest x-ray shows pulmonary edema. Check echo. IV furosemide with pRBC's. Titrate diuretics. Follow. CKD IV Creatinine 3.73 compared to recent baseline of 3 - 3.47. Transfuse as necessary to maintain adequate H/H. Titrate diuretics. Further management per Nephrology. OSTEOMYELITIS Continue IV antibiotics and wound care as recommended by ID and Wound Care Team. Please refer to JEROME Sue's documentation for discussion of other issues.
[2019-05-18] MEDS ORDERED: GLUCOSE 10 TABS/TUBE PO PRN (17:05)
[2019-05-18] MEDS ORDERED: DEXTROSE 50% 50 ML SYRINGE IV PRN (17:05)
[2019-05-18] MEDS ORDERED: ACETAMINOPHEN 325 MG TAB PO PRN (17:05)
[2019-05-18] MEDS ORDERED: GLUCAGON FOR INJ 1 MG VIAL SQ PRN (17:05)
[2019-05-18] MEDS ORDERED: POLYETHYLENE (MIRALAX) 17 GM PACK PO PRN (17:05)
[2019-05-18] MEDS ORDERED: SODIUM CHLORIDE 0.9% 250 ML IV PRN (17:05)
[2019-05-18] MEDS ORDERED: CARBOHYDRATES FOR HYPOGLYCEMIA PO PRN (17:05)
[2019-05-18] MEDS ORDERED: GLUCOSE 40% GEL 15 GM TUBE PO PRN (17:05)
[2019-05-18] MEDS ORDERED: DOCUSATE SODIUM/SENNA 50/8.6MG TAB PO PRN (17:05)
[2019-05-18] MEDS ORDERED: FUROSEMIDE 40 MG/4 ML VIAL IV ONE (17:05)
[2019-05-18] MEDS: carvediloL 6.25 MG TAB PO SCH (17:52)
[2019-05-18] MEDS: LACTOBACILLUS ACIDOPHILUS (FLORANEX) TAB PO SCH ×2 (17:53→21:30)
[2019-05-18] MEDS: INSULIN ASPART 100 UNITS/ML 3 ML PEN SC SCH ×2 (17:54→21:30)
[2019-05-18] MEDS ORDERED: FUROSEMIDE 40 MG in SYRINGE 0 ML IV SCH (18:00)
[2019-05-18] MEDS: ATORVASTATIN 10 MG TAB PO SCH (21:30)
[2019-05-18] MEDS: DOCUSATE SODIUM 100 MG CAP PO SCH (21:30)
[2019-05-19 06:11] LABS: Hematocrit (blood only) 25.8 % (37-47); Hemoglobin 8.4 g/dL (12.0-16.0); Mean Corpuscular Hemoglobin 29.9 pg (25-34); Mean Corpuscular Hgb Conc 32.6 g/dL (32-36); Mean Corpuscular Volume 91.8 fL (80-100); Mean Platelet Volume 9.5 fL (7.4-10.4); Platelet Count 216 K/uL (130-400); RDW Coefficient of Variation 13.7 % (11.5-14.5); RDW Standard Deviation 45.6 fL (36.4-46.3); Red Blood Count 2.81 M/uL (4.2-5.4); White Blood Count 7.35 K/uL (4.8-10.8)
[2019-05-19 06:40] LABS: BUN Creatinine Ratio 23.6 (10-20); Calcium 8.5 mg/dl (8.5-10.1); Creatinine Clr Calc Pharmacy 14.7 ml/min; Est GFR (African American) 13.9; Potassium 4.8 mmol/L (3.5-5.1)
[2019-05-19] MEDS: carvediloL 6.25 MG TAB PO SCH ×2 (08:40→17:22)
[2019-05-19] MEDS: FUROSEMIDE 40 MG TAB PO SCH ×2 (08:40→17:22)
[2019-05-19] MEDS: ASPIRIN 81 MG ECTAB PO SCH (08:40)
[2019-05-19] MEDS: DOCUSATE SODIUM 100 MG CAP PO SCH ×2 (08:40→20:15)
[2019-05-19] MEDS: CHOLECALCIFEROL 1,000 UNITS TAB PO SCH (08:41)
[2019-05-19] MEDS: AMLODIPINE BESYLATE 5 MG TAB PO SCH (08:41)
[2019-05-19] MEDS: LACTOBACILLUS ACIDOPHILUS (FLORANEX) TAB PO SCH ×4 (08:42→20:13)
[2019-05-19] MEDS: INSULIN ASPART 100 UNITS/ML 3 ML PEN SC SCH ×4 (08:43→20:11)
[2019-05-19] MEDS: INSULIN GLARGINE SOLOSTAR 100 UNITS/ML 3 ML PEN SC SCH (08:44)
[2019-05-19] MEDS ORDERED: PNEUMOCOCCAL Polysaccharide Vaccine 25mcg/0.5mL vial/Syr IM ONE (10:15)
[2019-05-19] MEDS ORDERED: SODIUM CHLORIDE 0.9% 250 ML IV PRN (12:22)
--- NOTE | 2019-05-19 12:27 | Hospitalist Progress Note ---
Date of Service May 19, 2019 Assessment & Plan (1) Anemia: -Admit to [facility] with telemetry -Patient sent from [facility] to ED for evaluation of anemia after routine labs drawn this morning showed a hemoglobin of 7.0 -Hgb in ED 7.2 -Likely multifactorial due to CKD, possible GI bleed, infection, IV antibiotics -Baseline hemoglobin ~ 8.5-9.0 -Required PRBC transfusion 06/2018 for anemia, was also noted to be iron deficient at that time and received IV iron infusions; was to be followed with the [facility] anemia clinic for possible initiation of Procrit injections however patient was lost to follow-up -Patient reports one episode of bright red bleeding per rectum during recent admission -Has not had a screening colonoscopy, will need to be set up as an outpatient -Obtain iron panel, folate, vitamin B12, SPEP, Hemoccult stools -Transfuse 1 unit PRBC -Hemoglobin is 8.4 today and complains to have shortness of breath at rest -We will transfuse another unit of blood today -Likely be transferred to [facility] tomorrow (2) Hypoxia: -Patient was found to be hypoxic on room air at 83%, currently saturating well on two thirds of oxygen via nasal cannula -Possibly secondary to volume overload as CXR shows some pulmonary edema -Low suspicion for PE given normal HR, no pleuritic chest pain, and patient received DVT prophylaxis during recent admission -IV diuresis with PRBC transfusion -Check resting echo-pending (3) Foot osteomyelitis, right: -Continue wound VAC -Continue IV daptomycin every 48 hours (4) Chronic kidney disease (CKD), stage IV (severe): - baseline creat runs in the low to mid threes - creat noted to be 3.7 today - continue to monitor, avoid nephrotoxic agents when able - Follows with [facility] nephrology, likely will need follow-up after discharge for evaluation of possible Procrit injections (5) Type 2 diabetes mellitus: -Hgb A1c 8.0 04/2019 -Lantus and NovoLog per protocol hospitalized (6) Hypertension: -BP controlled, continue amlodipine and carvedilol (7) Dyslipidemia: -Continue statin (8) DVT prophylaxis: -SCDs due to anemia Subjective 05/19 Patient was seen and examined in medical floor She was admitted with a hemoglobin of 7.2 with history of chronic kidney disease stage III and recent osteomyelitis involving the right foot Status post 1 unit of blood transfusion Still complains to have some shortness of breath at rest Review of Systems Review of Systems: ROS per HPI, all other systems reviewed and negative Physical Exam Physical Exam: Lying in bed comfortably Constitutional: well developed and well nourished; no acute distress and not ill appearing Eyes: PERRL, conjunctivae normal, anicteric sclerae ENMT: external ear and nose normal, oropharynx normal Respiratory: normal respiratory effort; no respiratory distress Auscultation: + diminished lung sounds and + crackles (Faint, bilateral bases) Cardiovascular: Rate/Rhythm: regular rate and regular rhythm Vessels: normal peripheral pulses Extremities: no edema Gastrointestinal (Abdomen): normal bowel sounds, soft, nontender, no hepatosplenomegaly Musculoskeletal: no cyanosis or clubbing, extremities motor strength 5/5 Skin: no rashes, warm and dry Neurologic: PERRL, EOMI, accommodation nl, no face palsy, no dysarthria Psychiatric: A+Ox3, euthymic affect Lymphatic: no cervical or axillary lymphadenopathy Results & Data Vital Signs (Past 12 Hours) Vital Signs Temp Pulse Pulse Resp BP Pulse Ox 05/19/19 11:23 35.8 C L 70 16 160/83 H 95 05/19/19 10:00 73 05/19/19 03:30 37.3 C 72 18 154/76 H 96 Laboratory Results Short CBC 05/18/19 05/19/19 Range/Units 13:56 05:28 WBC 8.07 7.35 (4.8-10.8) K/uL Hgb 7.2 L 8.4 L (12.0-16.0) g/dL Hct 22.6 L 25.8 L (37-47) % Plt Count 212 216 (130-400) K/uL BMP 05/18/19 05/19/19 13:56 05:28 Sodium 143 145 Potassium 5.1 4.8 Chloride 116 H 118 H Carbon Dioxide 20 L 21 BUN 85 H 89 H Creatinine 3.73 H D 3.77 H Glucose 213 H 101 H Calcium 8.3 L 8.5 Cardiac Enzymes 05/18/19 Range/Units 13:56 Troponin I 0.029 (0-0.045) ng/ml Liver Function 05/18/19 Range/Units 13:56 Total Bilirubin 0.3 (0.2-1) mg/dl AST 15 (15-37) U/L ALT 24 (12-78) U/L Alkaline Phosphatase 68 (45-117) U/L Albumin 2.8 L (3.4-5.0) gm/dl Medications Administered Current Inpatient Medications Acetaminophen (Tylenol) 650 mg PO Q4H PRN PRN Reason: pain/fever Stop: 06/17/19 17:04 Amlodipine Besylate (Norvasc) 10 mg PO DAILY [facility] Stop: 06/18/19 08:59 Last Admin: 05/19/19 08:41 Dose: 10 mg Documented by: Aspirin (Ecotrin Ectab) 81 mg PO DAILY [facility] Stop: 06/18/19 08:59 Last Admin: 05/19/19 08:40 Dose: 81 mg Documented by: Atorvastatin Calcium (Lipitor) 10 mg PO HS [facility] Stop: 06/17/19 20:59 Last Admin: 05/18/19 21:30 Dose: 10 mg Documented by: Carvedilol (Coreg) 6.25 mg PO BIDM [facility] Stop: 06/17/19 17:04 Last Admin: 05/19/19 08:40 Dose: 6.25 mg Documented by: Dextrose (Dextrose 50%) 25 - 50 ml IV UD PRN; Protocol PRN Reason: Hypoglycemia Protocol Stop: 06/17/19 17:04 Docusate Sodium (Colace) 100 mg PO BID [facility] Stop: 06/17/19 20:59 Last Admin: 05/19/19 08:40 Dose: 100 mg Documented by: Furosemide (Lasix) 40 mg PO BID17 [facility] Stop: 06/18/19 08:59 Last Admin: 05/19/19 08:40 Dose: 40 mg Documented by: Glucagon (Glucagen) 1 mg SQ UD PRN; Protocol PRN Reason: Hypoglycemia Protocol Stop: 06/17/19 17:04 Glucose (Dex4 Glucose) 4 - 8 tabs PO UD PRN; Protocol PRN Reason: Hypoglycemia Protocol Stop: 06/17/19 17:04 Glucose (Glucose 40%) 15 - 30 gm PO UD PRN; Protocol PRN Reason: Hypoglycemia Protocol Stop: 06/17/19 17:04 Heparin Sodium (Beef Lung) (Heparin Sod 10 Unit/Ml Flush) 5 ml FLUSH PRN PRN PRN Reason: Flush Stop: 06/17/19 22:47 Last Admin: 05/19/19 05:31 Dose: 5 ml Documented by: Daptomycin 325 mg/ Syringe 6.5 mls @ 3.25 mls/min IV Q48H [facility] Stop: 07/01/19 07:59 Sodium Chloride (Nss) 250 mls @ 15 mls/hr IV .[id number] PRN PRN Reason: For Transfusion Stop: 05/19/19 22:23 Furosemide 40 mg/ Syringe 4 mls @ 4 mls/min IV ONE ONE Stop: 05/19/19 12:46 Insulin Aspart (Novolog Flexpen) 0 units SC ACHS [facility] Stop: 06/17/19 17:04 Last Admin: 05/19/19 12:06 Dose: 6 units Documented by: Insulin Glargine (Lantus Solostar Pen) 30 units SC DAILY [facility] Stop: 06/18/19 08:59 Last Admin: 05/19/19 08:44 Dose: 30 units Documented by: Lactobacillus Acidophilus (Floranex) 4 tab PO QIDM [facility] Stop: 06/17/19 17:04 Last Admin: 05/19/19 12:06 Dose: 4 tab Documented by: Miscellaneous (Carbohydrates For Hypoglycemia) 15 - 30 gm PO UD PRN PRN Reason: Hypoglycemia Protocol Stop: 06/17/19 17:04 Polyethylene Glycol (Miralax Powder Packet) 17 gm PO DAILY PRN PRN Reason: Constipation Stop: 06/17/19 17:04 Senna/Docusate Sodium (Senokot S) 1 tab PO DAILY PRN PRN Reason: Constipation Stop: 06/17/19 17:04 Vitamin D (Vitamin D3) 4,000 units PO DAILY [facility] Stop: 06/18/19 08:59 Last Admin: 05/19/19 08:41 Dose: 4,000 units Documented by: (1) Anemia Anemia type: unspecified type Qualified Code(s): D64.9 - Anemia, unspecified (2) Hypertension Hypertension type: essential hypertension Qualified Code(s): I10 - Essential (primary) hypertension
[2019-05-19] MEDS ORDERED: FUROSEMIDE 40 MG in SYRINGE 0 ML IV ONE (12:45)
[2019-05-19] MEDS: ATORVASTATIN 10 MG TAB PO SCH (20:12)
[2019-05-20 06:05] LABS: Hematocrit (blood only) 29.2 % (37-47); Hemoglobin 9.7 g/dL (12.0-16.0); Mean Corpuscular Hemoglobin 30.3 pg (25-34); Mean Corpuscular Hgb Conc 33.2 g/dL (32-36); Mean Corpuscular Volume 91.3 fL (80-100); Platelet Count 207 K/uL (130-400); RDW Coefficient of Variation 13.7 % (11.5-14.5); RDW Standard Deviation 45.3 fL (36.4-46.3); White Blood Count 7.02 K/uL (4.8-10.8)
[2019-05-20 06:43] LABS: BUN Creatinine Ratio 23.8 (10-20); Calcium 8.7 mg/dl (8.5-10.1); Creatinine Clr Calc Pharmacy 14.6 ml/min; Est GFR (African American) 13.8; Est GFR (Non-African American) 11.9; Potassium 4.8 mmol/L (3.5-5.1)
[2019-05-20 07:25] LABS: Basophils # (auto) 0.03 K/uL (0-0.2); Basophils % (auto) 0.4 %; Eosinophils # (auto) 0.42 K/uL (0-0.5); Immature Granulocytes # (auto) 0.02 K/uL (0.00-0.02); Immature Granulocytes % (auto) 0.3 %; Lymphocytes # (auto) 1.23 K/uL (1.2-3.4); Lymphocytes % (auto) 17.5 %; Monocytes # (auto) 0.84 K/uL (0.11-0.59); Neutrophils # (auto) 4.48 K/uL (1.4-6.5); Neutrophils % (auto) 63.8 %
[2019-05-20] MEDS ORDERED: DAPTOMYCIN IV SCH (08:00)
[2019-05-20] MEDS: CHOLECALCIFEROL 1,000 UNITS TAB PO SCH (08:00)
[2019-05-20] MEDS: LACTOBACILLUS ACIDOPHILUS (FLORANEX) TAB PO SCH ×2 (08:00→12:06)
[2019-05-20] MEDS ORDERED: DAPTOmycin 325 MG in SYRINGE 0 ML IV SCH (08:00)
[2019-05-20] MEDS: DOCUSATE SODIUM 100 MG CAP PO SCH (08:01)
[2019-05-20] MEDS: AMLODIPINE BESYLATE 5 MG TAB PO SCH (08:01)
[2019-05-20] MEDS: FUROSEMIDE 40 MG TAB PO SCH (08:01)
[2019-05-20] MEDS: INSULIN ASPART 100 UNITS/ML 3 ML PEN SC SCH ×2 (08:02→12:06)
[2019-05-20] MEDS: INSULIN GLARGINE SOLOSTAR 100 UNITS/ML 3 ML PEN SC SCH (08:04)
[2019-05-20] MEDS: carvediloL 6.25 MG TAB PO SCH (08:06)
[2019-05-20] MEDS: ASPIRIN 81 MG ECTAB PO SCH (08:06)
--- NOTE | 2019-05-20 11:49 | Hospitalist Progress Note ---
Date of Service May 20, 2019 Assessment & Plan (1) Anemia: -Admit to [facility] with telemetry -Patient sent from [facility] to ED for evaluation of anemia after routine labs drawn this morning showed a hemoglobin of 7.0 -Hgb in ED 7.2 -Likely multifactorial due to CKD, possible GI bleed, infection, IV antibiotics -Baseline hemoglobin ~ 8.5-9.0 -Required PRBC transfusion 06/2018 for anemia, was also noted to be iron deficient at that time and received IV iron infusions; was to be followed with the [facility] anemia clinic for possible initiation of Procrit injections however patient was lost to follow-up -Patient reports one episode of bright red bleeding per rectum during recent admission -Has not had a screening colonoscopy, will need to be set up as an outpatient -Obtain iron panel, folate, vitamin B12, SPEP, Hemoccult stools -Transfuse 1 unit PRBC -Hemoglobin is 8.4 today and complains to have shortness of breath at rest -We will transfuse another unit of blood today -Hemoglobin went up to 9.7 today and the patient denies any shortness of breath at rest -Denies any other symptoms and will be discharged to [facility] this afternoon Chronic anemia Secondary to CKD stage III and complicated by iron deficiency Iron level and TIBC and ferritin are low Will not give any iron transfusion now Will start on ferrous sulfate 325 mg twice daily Will have nephrology appointment as an outpatient for possible administration of Procrit SPEP -pending (2) Hypoxia: -Patient was found to be hypoxic on room air at 83%, currently saturating well on two thirds of oxygen via nasal cannula -Possibly secondary to volume overload as CXR shows some pulmonary edema -Low suspicion for PE given normal HR, no pleuritic chest pain, and patient received DVT prophylaxis during recent admission -IV diuresis with PRBC transfusion -Check resting echo: Moderate concentric left ventricular hypertrophy, EF 55 to 60%, RV systolic function is normal, left atrial size is normal, right atrial size is normal, aortic valve sclerosis mild without significant stenosis and mild mitral regurgitation no evidence of pulmonary hypertension. (3) Foot osteomyelitis, right: -Continue wound VAC -Continue IV daptomycin every 48 hours and will be continued as planned (4) Chronic kidney disease (CKD), stage IV (severe): - baseline creat runs in the low to mid threes - creat noted to be 3.7 today - continue to monitor, avoid nephrotoxic agents when able - Follows with [facility] nephrology, likely will need follow-up after discharge for evaluation of possible Procrit injections (5) Type 2 diabetes mellitus: -Hgb A1c 8.0 04/2019 -Lantus and NovoLog per protocol hospitalized (6) Hypertension: -BP controlled, continue amlodipine and carvedilol (7) Dyslipidemia: -Continue statin (8) DVT prophylaxis: -SCDs due to anemia Subjective 05/19 Patient was seen and examined in medical floor She was admitted with a hemoglobin of 7.2 with history of chronic kidney disease stage III and recent osteomyelitis involving the right foot Status post 1 unit of blood transfusion Still complains to have some shortness of breath at rest 05/20 Patient was seen and examined in medical floor She denies any shortness of breath at rest he still has some short of breath with ambulation and that seems to be at her baseline She denies any other symptoms and is willing to go back to [facility] this afternoon Status post 2 units of PRBC transfusion Review of Systems Review of Systems: All systems reviewed and are unremarkable except as noted below Respiratory: + dyspnea on exertion; no cough Physical Exam Physical Exam: Lying in bed comfortably Constitutional: WD/WN, vitals as above well developed and well nourished; no acute distress and not ill appearing Eyes: PERRL, conjunctivae normal, anicteric sclerae ENMT: external ear and nose normal, oropharynx normal Respiratory: normal respiratory effort; no respiratory distress Auscultation: + diminished lung sounds and + crackles (Faint, bilateral bases) Cardiovascular: Rate/Rhythm: regular rate and regular rhythm Vessels: normal peripheral pulses Extremities: no edema Gastrointestinal (Abdomen): normal bowel sounds, soft, nontender, no hepatosplenomegaly Musculoskeletal: no cyanosis or clubbing, extremities motor strength 5/5 Skin: no rashes, warm and dry Neurologic: PERRL, EOMI, accommodation nl, no face palsy, no dysarthria Psychiatric: A+Ox3, euthymic affect Lymphatic: no cervical or axillary lymphadenopathy Results & Data Vital Signs (Past 12 Hours) Vital Signs Temp Pulse Pulse Resp BP Pulse Ox 05/20/19 11:23 36.7 C 66 20 165/84 H 95 05/20/19 07:46 36.5 C 57 L 20 158/66 H 95 05/20/19 07:22 58 L 05/20/19 03:46 37 C 63 18 175/71 H 95 Laboratory Results Short CBC 05/20/19 Range/Units 05:47 WBC 7.02 (4.8-10.8) K/uL Hgb 9.7 L (12.0-16.0) g/dL Hct 29.2 L (37-47) % Plt Count 207 (130-400) K/uL BMP 05/20/19 05:47 Sodium 145 Potassium 4.8 Chloride 116 H Carbon Dioxide 21 BUN 90 H Creatinine 3.78 H Glucose 73 Calcium 8.7 Medications Administered Current Inpatient Medications Acetaminophen (Tylenol) 650 mg PO Q4H PRN PRN Reason: pain/fever Stop: 06/17/19 17:04 Amlodipine Besylate (Norvasc) 10 mg PO DAILY [facility] Stop: 06/18/19 08:59 Last Admin: 05/20/19 08:01 Dose: 10 mg Documented by: Aspirin (Ecotrin Ectab) 81 mg PO DAILY [facility] Stop: 06/18/19 08:59 Last Admin: 05/20/19 08:06 Dose: 81 mg Documented by: Atorvastatin Calcium (Lipitor) 10 mg PO HS [facility] Stop: 06/17/19 20:59 Last Admin: 05/19/19 20:12 Dose: 10 mg Documented by: Carvedilol (Coreg) 6.25 mg PO BIDM [facility] Stop: 06/17/19 17:04 Last Admin: 05/20/19 08:06 Dose: Not Given Documented by: Dextrose (Dextrose 50%) 25 - 50 ml IV UD PRN; Protocol PRN Reason: Hypoglycemia Protocol Stop: 06/17/19 17:04 Docusate Sodium (Colace) 100 mg PO BID [facility] Stop: 06/17/19 20:59 Last Admin: 05/20/19 08:01 Dose: 100 mg Documented by: Ferrous Sulfate (Feosol) 325 mg PO BIDM [facility] Stop: 06/19/19 16:59 Furosemide (Lasix) 40 mg PO BID17 [facility] Stop: 06/18/19 08:59 Last Admin: 05/20/19 08:01 Dose: 40 mg Documented by: Glucagon (Glucagen) 1 mg SQ UD PRN; Protocol PRN Reason: Hypoglycemia Protocol Stop: 06/17/19 17:04 Glucose (Dex4 Glucose) 4 - 8 tabs PO UD PRN; Protocol PRN Reason: Hypoglycemia Protocol Stop: 06/17/19 17:04 Glucose (Glucose 40%) 15 - 30 gm PO UD PRN; Protocol PRN Reason: Hypoglycemia Protocol Stop: 06/17/19 17:04 Heparin Sodium (Beef Lung) (Heparin Sod 10 Unit/Ml Flush) 5 ml FLUSH PRN PRN PRN Reason: Flush Stop: 06/17/19 22:47 Last Admin: 05/20/19 05:46 Dose: 5 ml Documented by: Daptomycin 325 mg/ Syringe 6.5 mls @ 3.25 mls/min IV Q48H [facility] Stop: 07/01/19 07:59 Last Admin: 05/20/19 08:03 Dose: 3.25 mls/min Documented by: Insulin Aspart (Novolog Flexpen) 0 units SC ACHS [facility] Stop: 06/17/19 17:04 Last Admin: 05/20/19 08:02 Dose: 4 units Documented by: Insulin Glargine (Lantus Solostar Pen) 30 units SC DAILY [facility] Stop: 06/18/19 08:59 Last Admin: 05/20/19 08:04 Dose: 30 units Documented by: Lactobacillus Acidophilus (Floranex) 4 tab PO QIDM [facility] Stop: 06/17/19 17:04 Last Admin: 05/20/19 08:00 Dose: 4 tab Documented by: Miscellaneous (Carbohydrates For Hypoglycemia) 15 - 30 gm PO UD PRN PRN Reason: Hypoglycemia Protocol Stop: 06/17/19 17:04 Polyethylene Glycol (Miralax Powder Packet) 17 gm PO DAILY PRN PRN Reason: Constipation Stop: 06/17/19 17:04 Senna/Docusate Sodium (Senokot S) 1 tab PO DAILY PRN PRN Reason: Constipation Stop: 06/17/19 17:04 Vitamin D (Vitamin D3) 4,000 units PO DAILY [facility] Stop: 06/18/19 08:59 Last Admin: 05/20/19 08:00 Dose: 4,000 units Documented by: (1) Anemia Anemia type: unspecified type Qualified Code(s): D64.9 - Anemia, unspecified (2) Hypertension Hypertension type: essential hypertension Qualified Code(s): I10 - Essential (primary) hypertension
--- NOTE | 2019-05-20 12:12 | XRay Report ---
SINGLE VIEW CHEST CLINICAL HISTORY: Follow-up congestive heart failure. FINDINGS: An AP, portable, upright chest radiograph is compared to study dated 05/10/2019. The examin ation is degraded by portable technique and patient rotation. A left PICC line is unchanged in positi on. The heart is mildly enlarged. There is pulmonary congestion and interstitial edema. Small pleural effusions are noted with bibasilar consolidation. A calcified granuloma is again seen in the right l rocio. No pneumothorax is seen. The skeletal structures are osteopenic. The bony thorax is grossly inta ct. IMPRESSION: 1. Cardiomegaly with evidence of congestive failure and interstitial edema. This is similar in appear ance to 05/18/2019. 2. There are small pleural effusions with bibasilar consolidation. Electronically signed by: Genaro Traylor M.D. 05/20/2019 12:11 PM
[2019-05-20] MEDS ORDERED: FERROUS SULFATE 325 MG TAB PO SCH (17:00)
--- NOTE | 2019-05-21 08:15 | Discharge Summary ---
Date of Service May 21, 2019 Admission HPI Per Admitting Provider 64-year-old female who was sent to the ED from [facility] for evaluation of anemia. Patient recently admitted to [facility] 05/12 through 05/17 for right diabetic foot ulcer with osteomyelitis. Patient had wound VAC placed and was discharged on IV daptomycin. Routine labs were obtained today at [facility] that showed a hemoglobin of 7.0 and patient was sent to the ED for further evaluation. Patient reports she has been feeling well since her discharge. Reports she has had some mild shortness of breath recently. During recent admission, routine oral Lasix was held due to receiving IV vancomycin and mild i ncrease in creatinine. Patient also reports she had one episode of bright red bleeding per rectum while admitted. Patient denies abdominal pain, vomiting, dark tarry stools. Reports she has never had a colonoscopy. Review of records show the patient was anemic 06/2018 and received 1 unit PRBC. She was also noted to be iron deficient and was receiving IV iron infusions. Patient was to follow-up with the [facility] anemia clinic for possible Procrit injections however she was lost to follow-up. Patient denies chest pain. No lightheadedness, dizziness, diaphoresis, syncopal events. Denies fevers and chills. No urinary symptoms. During my exam, patient was noted to be on oxygen. When I placed the patient back on room air, she desaturated to 83% and was asymptomatic. Oxygen 2 L via nasal cannula was reapplied and patient was saturating 94%. Labs show hemoglobin 7.2. Patient is hemodynamically stable. Admission Exam Per Admitting Provider Constitutional: WD/WN, vitals as above Eyes: PERRL, conjunctivae normal, anicteric sclerae ENMT: external ear and nose normal, oropharynx normal Respiratory: normal respiratory effort; no respiratory distress Auscultation: + diminished lung sounds and + crackles (Faint, bilateral bases) Cardiovascular: Rate/Rhythm: regular rate and regular rhythm Vessels: normal peripheral pulses Extremities: no edema Gastrointestinal (Abdomen): normal bowel sounds, soft, nontender, no hepatosplenomegaly Musculoskeletal: no cyanosis or clubbing, extremities motor strength 5/5 Skin: no rashes, warm and dry Wound VAC in place to right lateral ankle/foot Neurologic: PERRL, EOMI, accommodation nl, no face palsy, no dysarthria Psychiatric: A+Ox3, euthymic affect Principal Diagnosis Anemia secondary to CKD complicated by osteomyelitis, status post 2 units of PRBC, right foot osteomyelitis, type 2 diabetes and hypertension Discharge Exam Constitutional WD/WN, vitals as above well developed and well nourished; no acute distress and not ill appearing Eyes PERRL, conjunctivae normal, anicteric sclerae ENMT external ear and nose normal, oropharynx normal Respiratory normal respiratory effort; no respiratory distress Auscultation: + diminished lung sounds and + crackles (Faint, bilateral bases) Cardiovascular Rate/Rhythm: regular rate and regular rhythm Vessels: normal peripheral pulses Extremities: no edema Gastrointestinal (Abdomen) normal bowel sounds, soft, nontender, no hepatosplenomegaly Musculoskeletal no cyanosis or clubbing, extremities motor strength 5/5 Skin no rashes, warm and dry Neurologic PERRL, EOMI, accommodation nl, no face palsy, no dysarthria Psychiatric A+Ox3, euthymic affect Lymphatic no cervical or axillary lymphadenopathy Discharge Data Allergies Allergy/AdvReac Type Severity Reaction Status Date / Time No Known Allergies Allergy Unknown Verified 05/18/19 14:09 Consultations 05/18/19 14:06 ED Decision to Admit Stat 05/18/19 17:05 Consult Case Management - Discharge Planning Routine Hospital Course (1) Anemia: -Admit to [facility] with telemetry -Patient sent from [facility] to ED for evaluation of anemia after routine labs drawn this morning showed a hemoglobin of 7.0 -Hgb in ED 7.2 -Likely multifactorial due to CKD, possible GI bleed, infection, IV antibiotics -Baseline hemoglobin ~ 8.5-9.0 -Required PRBC transfusion 06/2018 for anemia, was also noted to be iron deficient at that time and received IV iron infusions; was to be followed with the [facility] anemia clinic for possible initiation of Procrit injections however patient was lost to follow-up -Patient reports one episode of bright red bleeding per rectum during recent admission -Has not had a screening colonoscopy, will need to be set up as an outpatient -Obtain iron panel, folate, vitamin B12, SPEP, Hemoccult stools -Transfuse 1 unit PRBC -Hemoglobin is 8.4 today and complains to have shortness of breath at rest -We will transfuse another unit of blood today -Hemoglobin went up to 9.7 today and the patient denies any shortness of breath at rest -Denies any other symptoms and will be discharged to [facility] this afternoon Chronic anemia Secondary to CKD stage III and complicated by iron deficiency Iron level and TIBC and ferritin are low Will not give any iron transfusion now Will start on ferrous sulfate 325 mg twice daily Will have nephrology appointment as an outpatient for possible administration of Procrit SPEP -pending (2) Hypoxia: -Patient was found to be hypoxic on room air at 83%, currently saturating well on two thirds of oxygen via nasal cannula -Possibly secondary to volume overload as CXR shows some pulmonary edema -Low suspicion for PE given normal HR, no pleuritic chest pain, and patient received DVT prophylaxis during recent admission -IV diuresis with PRBC transfusion -Check resting echo: Moderate concentric left ventricular hypertrophy, EF 55 to 60%, RV systolic function is normal, left atrial size is normal, right atrial size is normal, aortic valve sclerosis mild without significant stenosis and mild mitral regurgitation no evidence of pulmonary hypertension. (3) Foot osteomyelitis, right: -Continue wound VAC -Continue IV daptomycin every 48 hours and will be continued as planned (4) Chronic kidney disease (CKD), stage IV (severe): - baseline creat runs in the low to mid threes - creat noted to be 3.7 today - continue to monitor, avoid nephrotoxic agents when able - Follows with [facility] nephrology, likely will need fo llow-up after discharge for evaluation of possible Procrit injections (5) Type 2 diabetes mellitus: -Hgb A1c 8.0 04/2019 -Lantus and NovoLog per protocol hospitalized (6) Hypertension: -BP controlled, continue amlodipine and carvedilol (7) Dyslipidemia: -Continue statin (8) DVT prophylaxis: -SCDs due to anemia Total Time Total Time Spent Total Time Spent (In Minutes): 35 minutes Total Time Includes: Examination of the Patient, Discharge Planning, Medication Reconciliation and 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 With Other Providers Discharge Plan Discharge Items Patient Disposition: Transfer Inpatient Rehab Fac Reason For Visit: ANEMIA Discharge Diagnosis: Anemia secondary to CKD complicated by osteomyelitis, status post 2 units of PRBC, right foot osteomyelitis, type 2 diabetes and hypertension Condition on Discharge: Good Activity: As commented below Non-emergency contact: Primary Care Provider Call non-emergency contact if: you have any medication questions and your symptoms worsen Follow-up/Referrals: [facility] [Primary Care Provider] - Diet: Carb Consistent or DM2 Addtl Attending Provider Instructions: Please take precaution to avoid falls Continue physical therapy as recommended by Ortho Finish the course of antibiotic Will need to have an outpatient appointment with street photographer within 1 to 2 weeks Pending Studies at Discharge: No Stand-Alone Forms: My [facility] Skilled Items Patient informed of condition?: Yes DNR: Yes Discharge Level of Care: Acute rehab Communicable Disease: No Discharge Prognosis: Stable Lines: PICC Urinary Catheter: No Medications and DC Order Prescriptions: New ferrous sulfate 325 mg (65 mg iron) Tablet,Delayed Release (Dr/Ec) 325 mg PO BIDM 30 Days Qty: 60 RF: 0 Continued cholecalciferol (vitamin D3) [Vitamin D3] 2,000 unit Capsule 4,000 unit PO DAILY RF: 0 aspirin [Ecotrin Low Strength] 81 mg tablet,delayed release (DR/EC) 81 mg PO DAILY RF: 0 furosemide [Lasix] 40 mg Tablet 40 mg PO BID RF: 0 Lactobacillus acidoph-L.bulgar [Floranex] 1 million cell Tablet 4 tab PO QIDM 30 Days Qty: 480 RF: 0 daptomycin 350 mg recon soln 325 mg IV Q48H Qty: 20 RF: 0 amlodipine 5 mg tablet 10 mg PO DAILY Qty: 0 RF: 0 Lantus U-100 Insulin 100 unit/mL solution 30 unit SUBCUT DAILY RF: 0 atorvastatin 10 mg tablet 10 mg PO HS RF: 0 Humulin R Regular U-100 Insuln 100 unit/mL Solution 1 sliding scale dose SUBCUT USEASDIRECTD RF: 0 docusate sodium 100 mg Capsule 100 mg PO BID RF: 0 heparin (porcine) 5,000 unit/mL Solution 5,000 unit SUBCUT Q8H RF: 0 carvedilol 6.25 mg tablet 6.25 mg PO BIDM RF: 0 sodium chloride 0.9 % (flush) [Normal Saline Flush] Syringe 5 ml IV Q8H RF: 0 sennosides-docusate sodium [Senokot-S] 8.6-50 mg Tablet 1 tab-cap PO DAILY PRN (Reason: Constipation) RF: 0 acetaminophen 650 mg Tablet Extended Release 650 mg PO Q4H PRN (Reason: Pain) RF: 0 bisacodyl 10 mg Suppository 10 mg WV DAILY PRN (Reason: Constipation) RF: 0 Fleet Enema 19-7 gram/118 mL Enema 118 ml WV DAILY PRN (Reason: Constipation) RF: 0 polyethylene glycol 3350 [Miralax] 17 gram/dose Powder 17 g PO DAILY PRN (Reason: Constipation) RF: 0 Discharge Orders: Discharge Order (Routine); Ordered 05/20/19 Ordered By: Emmanuel Horton Admission Data Admit Date/Time: 05/18/19 14:48 Attending Provider: Emmanuel Horton Admit Provider: Edson Montana Primary Care Provider: [facility] Other Providers: Edson Montana ; [facility] Other Interventions: Discharge Summary Assessment (RN) Last Done: 05/20/19 14:19 DC Date/Time DO NOT enter until pt leaves facility: 05/20/19 15:50
[2019-05-21 17:22] LABS: Alpha 1 Globulin 0.5 g/dL (0.2-0.3); Alpha 2 Globulin 0.8 g/dL (0.5-0.9); Beta-1-Globulin 0.4 g/dL (0.4-0.6); Beta-2-Globulin 0.4 g/dL (0.2-0.5); Gamma Globulin 0.8 g/dL (0.8-1.7); Monoclonal Protein Band 1 DNR g/dL (NONE DETECTED); Monoclonal Protein Band 2 DNR g/dL (NONE DETECTED); Monoclonal Protein Band 3 DNR g/dL (NONE DETECTED); Total Protein 5.8 g/dL (6.1-8.1)
== END 2019-05-20 15:50 ==
LOC: 2W 13:19 → ED 13:19 → SUATTDRO 14:48 → 2W 16:58

== ENCOUNTER 2019-05-30 12:47 | Inpatient (IN) ==
[2019-05-30 14:01] LABS: Hematocrit (blood only) 28.1 % (37-47); Hemoglobin 9.1 g/dL (12.0-16.0); Mean Corpuscular Hemoglobin 30.2 pg (25-34); Mean Corpuscular Hgb Conc 32.4 g/dL (32-36); Mean Corpuscular Volume 93.4 fL (80-100); Mean Platelet Volume 9.4 fL (7.4-10.4); Platelet Count 208 K/uL (130-400); RDW Coefficient of Variation 13.6 % (11.5-14.5); RDW Standard Deviation 45.7 fL (36.4-46.3); Red Blood Count 3.01 M/uL (4.2-5.4); White Blood Count 15.44 K/uL (4.8-10.8)
[2019-05-30 14:06] LABS: INR 1.1 (0.9-1.1); Partial Thromboplastin Ratio 1.1; Prothrombin Time 10.9 Seconds (9.0-12.0)
--- NOTE | 2019-05-30 14:10 | XRay Report ---
XR chest 1V portable CLINICAL HISTORY: Dyspnea COMPARISON STUDY: 05/20/2019 FINDINGS: The cardiac and mediastinal contours remain stable. There is a left-sided PICC catheter. Th ere are progressive bilateral pulmonary airspace opacities. Diagnostic considerations include a multi focal pneumonia versus atypical appearance of pulmonary edema. Small pleural effusions are suspected. [ IMPRESSION: Progressive bilateral pulmonary airspace opacities. The main differential lies between a multifocal pneumonia versus atypical appearance of pulmonary edema. Clinical and radiographic follow- up is recommended ACT 112: Negative or not required by law. Electronically signed by: Marco Nieto M.D. 05/30/2019 2:09 PM
[2019-05-30 14:13] LABS: Alanine Aminotransferase 53 U/L (12-78); Albumin Level 2.9 gm/dl (3.4-5.0); Aspartate Aminotransferase 20 U/L (15-37); BUN Creatinine Ratio 27.5 (10-20); Blood Urea Nitrogen 97 mg/dl (7-18); Carbon Dioxide 19 mmol/L (21-32); Chloride 117 mmol/L (98-107); Creatinine Clr Calc Pharmacy 15.5 ml/min; Est GFR (Non-African American) 12.9; Glucose 124 mg/dl (70-99); Magnesium 2.4 mg/dl (1.8-2.4); Potassium 5.5 mmol/L (3.5-5.1); Sodium 142 mmol/L (136-145)
[2019-05-30 14:18] LABS: Albumin Globulin Ratio 0.7 (0.9-2); Alkaline Phosphatase 66 U/L (45-117); Bilirubin,Total 0.3 mg/dl (0.2-1); Globulin 4.1 gm/dl (2.5-4.0); NT Pro B Type Natriuretic Pept 6939 pg/ml (0-900); Troponin I < 0.015 ng/ml (0-0.045)
[2019-05-30 14:25] LABS: Basophils # (auto) 0.03 K/uL (0-0.2); Basophils % (auto) 0.2 %; Eosinophils # (auto) 0.06 K/uL (0-0.5); Eosinophils % (auto) 0.4 %; Immature Granulocytes # (auto) 0.07 K/uL (0.00-0.02); Immature Granulocytes % (auto) 0.5 %; Lymphocytes # (auto) 0.62 K/uL (1.2-3.4); Monocytes # (auto) 0.75 K/uL (0.11-0.59); Monocytes % (auto) 4.9 %; Neutrophils # (auto) 13.91 K/uL (1.4-6.5)
[2019-05-30 14:37] LABS: Influenza A virus by PCR Neg for Influ A (Neg); Influenza B virus by PCR Neg for Influ B (Neg)
[2019-05-30] MEDS ORDERED: CEFEPIME 2,000 MG/20 ML VIAL IV STA (14:55)
[2019-05-30] MEDS ORDERED: FUROSEMIDE 40 MG/4 ML VIAL IV STA (14:55)
--- NOTE | 2019-05-30 16:36 | History & Physical Report ---
Date of Service May 30, 2019 Assessment & Plan (1) Acute respiratory failure with hypoxia: This is a 64yo F with a PMH of CKD IV, DM II, HTN, R foot osteomyelitis on IV dapto, anemia and other medical problems listed below who presents from rehab with acute hypoxic respiratory failure starting early this morning around 0200. -Developed hypoxia of 71% on room air, wheezing and cough with mild amount of productive sputum -Likely multifactorial with evidence of pulmonary edema vs. multifocal pneumonia on CXR -Considered PE but no tachycardia, has been receiving VTE of SQ heparin 5,000 Q8 while at [facility] -Saturating at 97% on 6 L oxygen mask. Continue supplemental O2 (2) Pulmonary edema: Evidence of pulmonary edema on previous 2 CXRs. 2D echo from 05/09/19 with preserved EF of 55-60%, moderate concentric LVH and aortic valve sclerosis -Given 40mg IV Lasix at [facility] and an additional 20mg IV Lasix in ED - will monitor diuresis -BNP elevated at 6939. Recent weight fluctuation but weights over the past few d ays has been ~81kg -Strict I&Os, daily weights, low sodium diet -Routine cardiology consult (3) Multifocal pneumonia: Afebrile, leukocytosis of 15.44, normal procalcitonin of 0.5, normal lactic acid and negative flu PCR -Sputum and blood culture pending -Will continue empiric abx treatment with cefepime for now. Lisa QIDR (4) Foot osteomyelitis, right: Has PICC in place for IV Dapto with abx course completion as of Jun 25 -No longer requiring wound vac. Wound care consult placed (5) Chronic kidney disease (CKD), stage IV (severe): Baseline Cr ~ 3.5 but trended up to 4.2 while at recently and diuretics were discontinued -Follows with [facility] nephro -Routine consult placed (6) Anemia: Hgb stable ~9, which has been baseline since 2u prbc transfusion at the end of Apr 2019 -Denies recent bleeding. Continue to monitor (7) Type 2 diabetes mellitus: A1c of 8 in Apr 2019 -Hold home agents -Basal/bolus insulin per protocol while in-patient -BSG AC HS (8) Hypertension: Continue amlodipine DVT Ppx: SQ heparin Code status: FULL per discussion with patient PCP: Bruce Bronson Dispo: Admitted to PCU. Discharge planning ordered. Patient seen in collaboration with Dr. Montana. Please see addendum. History of Present Illness Chief Complaint: acute hypoxic resp failure Primary Care Provider: Melissa Bronson DO This is a 64yo F with a PMH of CKD IV, DM II, HTN, R foot osteomyelitis on IV dapto, anemia and other medical problems listed below who presents from rehab with acute hypoxic respiratory failure starting early this morning around 0200. Patient woke up unable to catch her breath even when sitting up straight. Endorses wheezing and cough with mild amount of productive sputum. Denies any fever, chills, hemoptysis, chest pain or palpitations. Was found to be hypoxic at 71% on room air and does not require O2 at baseline. Was given 40 mg of IV Lasix around 1130am as well as DuoNeb treatment but did not improve, so was sent to ED for further evaluation. Patient has a complicated recent hospital course starting with admission to [facility] for R diabetic foot ulcer with osteomyelitis and started on IV Dapto and sent to . Was readmitted on 05/18 after being found to have symptomatic anemia of 7, requiring 2u prbcs. During that admission, had hypoxia due to what appeared to be pulmonary edema on CXR. Underwent 2D echo on 05/09/19, which revealed preserved EF of 55-60%, moderate concentric LVH and aortic valve sclerosis. Was discharge back to on 05/21 and had progressively worsening kidney function with Cr peaking at 4.2 on 05/23/18 (baseline Cr ~ mid-3s), so patient's lasix dose of 40mg BID was decreased and then discontinued as of 05/25/18. Over the next 5 days, patient notes increased BLE edema but denied any SOB until late last evening. Currently, patient is saturating at 97% on 6 L oxygen mask. Has leukocytosis of 15.44, BNP of 6939, normal procalcitonin of 0.5, normal lactic acid and negative flu PCR. Chest x-ray with progressive bilateral pulmonary airspace opacities with main differential including multifocal pneumonia vs atypical appearance of pulmonary edema. Was given an additional 20mg IV Lasix in ED as well as started empirically on Cefepime. Allergies Allergy/AdvReac Type Severity Reaction Status Date / Time No Known Allergies Allergy Unknown Verified 05/30/19 13:59 Home Medications Home Medications Medication Instructions Recorded Confirmed Type cholecalciferol (vitamin D3) 4,000 unit PO DAILY 07/07/18 05/30/19 History [Vitamin D3] aspirin [Ecotrin Low Strength] 81 mg PO DAILY 05/12/19 05/30/19 History Lactobacillus acidoph-L.bulgar 4 tab PO QIDM 30 Days #480 tab 05/17/19 05/30/19 Rx [Floranex] daptomycin 325 mg IV Q48H #20 ea 05/17/19 05/30/19 Rx Fleet Enema 118 ml NM DAILY PRN 05/18/19 05/30/19 History Humulin R Regular U-100 Insuln 1 sliding scale dose SUBCUT 05/18/19 05/30/19 History USEASDIRECTD bisacodyl 10 mg NM DAILY PRN 05/18/19 05/30/19 History carvedilol 6.25 mg PO BIDM 05/18/19 05/30/19 History docusate sodium 100 mg PO BID 05/18/19 05/30/19 History polyethylene glycol 3350 [Miralax] 17 g PO DAILY PRN 05/18/19 05/30/19 History sennosides-docusate sodium 1 tab-cap PO DAILY PRN 05/18/19 05/30/19 History [Senokot-S] sodium chloride 0.9 % (flush) 5 ml IV Q8H 05/18/19 05/30/19 History [Normal Saline Flush] ferrous sulfate 325 mg PO BIDM 30 Days #60 tab 05/20/19 05/30/19 Rx amlodipine 10 mg PO DAILY 05/30/19 05/30/19 History insulin glargine [Basaglar KwikPen 30 unit SUBCUT HS 05/30/19 05/30/19 History U-100 Insulin] pantoprazole [Protonix] 40 mg PO BID 05/30/19 05/30/19 History Past Med/Surg History Medical History Chronic kidney disease (CKD), stage IV (severe) (Chronic) Closed fracture of distal end of right fibula and tibia (Inactive) Diabetic neuropathy (Chronic) Dyslipidemia (Chronic) Foot osteomyelitis, right (Chronic) History of depression (Chronic) Hypertension (Chronic) Type 2 diabetes mellitus (Chronic) Surgical History History of appendectomy (Resolved) Status post right foot surgery Family History Sister Ovarian cancer Brother Hypertension Social History Preferred Language: [place] Leonean 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: Effective Supervisory Civil Engineer 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 Physical Exam Physical Exam: General Appearance: WD/WN, vitals as above, NAD, appears chronically ill, wearing oxymask, becomes dyspneic when speaking Head: normocephalic, atraumatic Eyes: normal inspection, PERRL, conjunctivae normal, anicteric sclerae ENT: external ear and nose normal, oropharynx normal Neck: trachea midline, no thyromegaly normal visual inspection Respiratory: increased respiratory effort, poor air movement bilaterally, bibasilar crackles, diffuse rhonchi. No accessory muscle use Cardiovascular: regular rate, rhythm, 1/6 systolic murmur, normal peripheral pulses, 2+ BLE Chest: normal inspection of chest Abdomen/GI: normal bowel sounds, soft, nontender, no hepatosplenomegaly Extremities/Musculoskelatal: +PICC line L arm, R lateral foot wound healing, no surrounding erythema or purulent drainage. No cyanosis or clubbing, extremities motor strength 5/5 Neurologic: PERRL, EOMI, accommodation nl, no face palsy, no dysarthria, CN's II-XI intact bilaterally and moves all extremities Psychiatric: A+Ox3, euthymic affect Skin: no rashes, normal color, warm/dry Results & Data Vital Signs (Past 12 Hours) Vital Signs Temp Pulse Pulse Resp BP BP Pulse Ox 05/30/19 15:37 79 24 164/65 H 95 05/30/19 14:00 77 25 H 149/82 H 95 05/30/19 13:48 76 26 H 96 05/30/19 12:50 36.9 C 78 24 159/80 H 98 Laboratory Results Short CBC 05/30/19 Range/Units 13:45 WBC 15.44 H (4.8-10.8) K/uL Hgb 9.1 L (12.0-16.0) g/dL Hct 28.1 L (37-47) % Plt Count 208 (130-400) K/uL BMP 05/30/19 13:45 Sodium 142 Potassium 5.5 H Chloride 117 H Carbon Dioxide 19 L BUN 97 H Creatinine 3.54 H Glucose 124 H Calcium 9.0 Cardiac Enzymes 05/30/19 Range/Units 13:45 Troponin I < 0.015 (0-0.045) ng/ml Liver Function 05/30/19 Range/Units 13:45 Total Bilirubin 0.3 (0.2-1) mg/dl AST 20 (15-37) U/L ALT 53 (12-78) U/L Alkaline Phosphatase 66 (45-117) U/L Albumin 2.9 L (3.4-5.0) gm/dl Urine 05/30/19 Range/Units 16:20 Urine Color Yellow Urine Appearance Clear (Clear) Urine pH 5.0 (4.5-7.5) Ur Specific Adams 1.011 (1.000-1.030) Urine Protein 2+ H (Negative) Urine Glucose (UA) Negative (Negative) Diagnostic Findings CXR: IMPRESSION: Progressive bilateral pulmonary airspace opacities. The main differential lies between a multifocal pneumonia versus atypical appearance of pulmonary edema. Clinical and radiographic follow-up is recommended Code Status & VTE Plan VTE Prophylaxis Plan VTE Prophylaxis will be ordered: Yes Supervising Physician Co-Signing Physician Notes HISTORY: Record reviewed. Patient interviewed and examined in ED; are coordinated with Marcela Tejada PA-C. Please refer to her documentation for complete history. Briefly, 64 YO female with history of hypertension, DM, CKD, and osteomyelitis of right foot. Currently patient at for inpatient rehab, receiving IV daptom ycin. Furosemide was held due to worsening renal function. Subsequently has developed worsening SOB requiring O2 and worsening dependent edema. No fever. Nonproductive cough. EXAM: General- no distress Lungs- bibasilar rales; no respiratory distress Cardiovascular- RRR; I/ systolic murmur at base; no gallop appreciated; + JVD; 1-2+ pretibial edema Abdomen- + bowel sounds, soft, nontender Extremities- no cyanosis; no calf tenderness; right foot ulcer ~ 1.5 cm with minimal drainage Neuro- alert, oriented Skin- warm & dry DATA: Hemoglobin 9.1, white count 15,440, platelet count 208,000. PT 10.9, INR 1.1, PTT 31. Chemistry showed sodium 142, potassium of 5.5, chloride 117, CO2 19, BUN 97, creatinine 3.54, random glucose 124. Serum lactate 0.6. Procalcitonin 0.50. Troponin less than 0.015. proBNP 6939. Albumin 2.9. UA showed 2+ protein, 1+ blood, negative nitrites, negative leukocyte Estrace, 1-5 WBCs, 0-4 RBCs, 1-5 hyaline casts, 5-10 epithelial cells, 1+ bacteria. Nasopharyngeal swab for influenza A/B negative. Chest x-ray reviewed by the undersigned and formally interpreted by Radiology. Bilateral densities, pulmonary edema versus multifocal pneumonia. EKG performed at 1258 reviewed and demonstrated normal sinus rhythm at 80/minute, occasional PVC, baseline artifact. A/P: Acute hypoxic respiratory failure. History, exam, chest x-ray, elevated BNP suggest pulmonary edema/CHF. Recent echocardiogram on 05/19/2019 demonstrated moderate concentric LVH, LVEF 55-60%. Probable acute on chronic left ventricular diastolic heart failure. Furosemide was held for several days because of worsening renal function. Re[facility] IV [facility] without significant diuresis. Titrate diuretic therapy. Monitor exam, weights, fluid status, renal function, chest x-ray. Consider possibility of infectious process, but seems unlikely with absence of fever, normal lactate, normal procalcitonin. IV cefepime pending blood culture results. Patient is receiving daptomycin for osteomyelitis of the right foot. Consider possibility of eosinophilic pneumonitis if pulmonary status/chest x-ray do not improve. Consult Wound Care and ID for ongoing management of right foot ulcer / osteomyelitis. Please refer to CRISTY Tejada's documentation regarding other problems. (1) Anemia Anemia type: unspecified type Qualified Code(s): D64.9 - Anemia, unspecified (2) Hypertension Hypertension type: essential hypertension Qualified Code(s): I10 - Essential (primary) hypertension
[2019-05-30 16:39] LABS: Appearance Urine Clear (Clear); Bilirubin Urine Negative (Negative); Blood Urine 1+ (Negative); Color Urine Yellow; Glucose Urine UA Negative (Negative); Ketones Urine Negative (Negative); Leukocyte Esterase Urine Negative (Negative); Nitrite Urine Negative (Negative); Protein Urine 2+ (Negative); RBC Urine Automated 0-4 /hpf (0-4); Specific Gravity Urine 1.011 (1.000-1.030); Urobilinogen Urine Negative (Negative)
[2019-05-30 16:51] LABS: Bacteria Urine Automated 1+ (Negative)
--- NOTE | 2019-05-30 17:35 | Emergency Department Note ---
Entered by Selma Dean acting as a scribe for History of Present Illness General Chief complaint: Shortness of Breath/Dyspnea Stated complaint: sob/nausea Time Seen by Provider: 05/30/19 13:24 Source: patient and other (nurse) History of Present Illness Onset (ago): hour(s) (0300 today) Location: left (lung) and right (lung) Pain Consistency: + other (sudden) Quality: + other (shortness of breath) Exacerbated By: + movement Associated symptoms: + cough, + nausea/vomiting (Positive nausea. Negative vomiting. ), + shortness of breath and + other (Positive lower extremity swelling. Negative abnormal urinary symptoms, rhinorrhea, sore throat.); no loss of appetite The patient is a 64 year old female presenting to the Emergency Department complaining of sudden shortness of breath starting at 0300 today. The patients nurse reports that the patient got up in the middle of the night and suddenly became short of breath. She states that the patient at a cough that is producing phlegm. She explains that the patient doesnt use supplemental oxygen normally. The patient notes that she was nauseous this morning but is not currently nauseous. She adds that her lower extremities are swollen. The patient reports that when she moves around her shortness of breath worsens. She states that she has been using a scooter to get around because of her leg. The patient denies vomiting, loss of appetite, abnormal urinary symptoms, rhinorrhea, sore throat and smoking cigarettes. Home Medications Home Medications Medication Instructions Recorded Confirmed Type cholecalciferol (vitamin D3) 4,000 unit PO DAILY 07/07/18 05/30/19 History [Vitamin D3] aspirin [Ecotrin Low Strength] 81 mg PO DAILY 05/12/19 05/30/19 History Lactobacillus acidoph-L.bulgar 4 tab PO QIDM 30 Days #480 tab 05/17/19 05/30/19 Rx [Floranex] daptomycin 325 mg IV Q48H #20 ea 05/17/19 05/30/19 Rx Fleet Enema 118 ml LA DAILY PRN 05/18/19 05/30/19 History Humulin R Regular U-100 Insuln 1 sliding scale dose SUBCUT 05/18/19 05/30/19 History USEASDIRECTD bisacodyl 10 mg LA DAILY PRN 05/18/19 05/30/19 History carvedilol 6.25 mg PO BIDM 05/18/19 05/30/19 History docusate sodium 100 mg PO BID 05/18/19 05/30/19 History polyethylene glycol 3350 [Miralax] 17 g PO DAILY PRN 05/18/19 05/30/19 History sennosides-docusate sodium 1 tab-cap PO DAILY PRN 05/18/19 05/30/19 History [Senokot-S] sodium chloride 0.9 % (flush) 5 ml IV Q8H 05/18/19 05/30/19 History [Normal Saline Flush] ferrous sulfate 325 mg PO BIDM 30 Days #60 tab 05/20/19 05/30/19 Rx amlodipine 10 mg PO DAILY 05/30/19 05/30/19 History insulin glargine [Basaglar KwikPen 30 unit SUBCUT HS 05/30/19 05/30/19 History U-100 Insulin] pantoprazole [Protonix] 40 mg PO BID 05/30/19 05/30/19 History Allergies Allergy/AdvReac Type Severity Reaction Status Date / Time No Known Allergies Allergy Unknown Verified 05/30/19 13:59 Past Med/Surg History Medical History Chronic kidney disease (CKD), stage IV (severe) (Chronic) Closed fracture of distal end of right fibula and tibia (Inactive) Diabetic neuropathy (Chronic) Dyslipidemia (Chronic) Foot osteomyelitis, right History of depression (Chronic) Hypertension (Chronic) Type 2 diabetes mellitus (Chronic) Surgical History History of appendectomy (Resolved) Status post right foot surgery Family History Sister Ovarian cancer Brother Hypertension Social History Preferred Language: Moroccan 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: Effective Horser Up Required: No Beliefs That Will Affect Care: None marital status: Current Living Situation: Alone and Other Current Living Situation Comment: [facility] currently at rehab but typically lives at home alone Feels Safe at Home: Yes Smoking Status: Never smoker Second Hand Exposure: No ; Hx Alcohol Use: No Hx Substance Use: No Review of Systems See HPI for pertinent positives & negatives. and A total of 10 systems reviewed and were otherwise negative Physical Exam Vital Signs Vital Signs - 24 hr 05/30/19 12:50 05/30/19 13:48 05/30/19 14:00 Temperature 36.9 C Temperature Source Oral Pulse Rate 78 76 Pulse Rate [Apical] 77 Pulse Rhythm Regular Regular Pulse Rhythm [Apical] Regular Pulse Strength Normal Respiratory Rate 24 26 H 25 H Respiratory Effort / Characteristics Spontaneous Accessory Muscle Use Labored Short of Breath SOB on Exertion Spontaneous Short of Breath Respiratory Depth Deep Respiratory Pattern Regular Blood Pressure 159/80 H Blood Pressure [Right Arm] 149/82 H Blood Pressure Mean 106 Blood Pressure Mean [Right Arm] 104 Blood Pressure Position Sitting Pulse Oximetry 98 96 95 Oxygen Delivery Method Oxymask Oxymask Oxymask Oxygen Flow Rate 6 6 6 Sepsis Recent Fever Within 48 Hours No Sepsis New/Unexplained Change in Mental Status No Sepsis Action Taken by Nursing No Action Required 05/30/19 15:37 05/30/19 16:30 05/30/19 17:01 Temperature Temperature Source Pulse Rate 69 Pulse Rate [Apical] 79 80 Pulse Rhythm Pulse Rhythm [Apical] Regular Regular Pulse Strength Respiratory Rate 24 24 25 H Respiratory Effort / Characteristics Spontaneous Short of Breath Spontaneous Short of Breath Respiratory Depth Respiratory Pattern Blood Pressure 155/88 H Blood Pressure [Right Arm] 164/65 H 172/78 H Blood Pressure Mean Blood Pressure Mean [Right Arm] 98 109 Blood Pressure Position Pulse Oximetry 95 98 100 Oxygen Delivery Method Oxymask Oxymask Oxymask Oxygen Flow Rate 6 6 6 Sepsis Recent Fever Within 48 Hours Sepsis New/Unexplained Change in Mental Status Sepsis Action Taken by Nursing GENERAL: Patient appears uncomfortable and is on oxygen mask. Awake, alert, with increased WOB HENT: Normocephalic, atraumatic. EYES: Normal conjunctiva. Sclera non-icteric. NECK: Supple. No nuchal rigidity. RESPIRATORY: Increased work of breathing. Diminished bases. CARDIAC: Normal rate. Normal rhythm. Extremities warm and well perfused. GI: Soft, non-distended. No tenderness to palpation. No rebound or guarding. No masses. RECTAL: Deferred. MUSCULOSKELETAL: Atraumatic. Chest examination reveals no tenderness. LOWER EXTREMITIES: 2+ lower extremity edema. 1 cm wound on right lateral foot. Trace erythema here but fairly well appearing. Calves are equal size bilaterally and non-tender. NEURO: Normal sensorium. No sensory or motor deficits noted. No facial droop. SKIN: Warm and dry. No jaundice noted. Course Course 1326: The patient was evaluated in room B4B, and a complete history and physical examination were performed. 1449: I reevaluated the patient at this time. 1513: I discussed the patient's case with [facility] hospitalist. She will evaluate the patient for further management. Administered Medications Discontinued Medications Furosemide (Lasix) 20 mg IV NOW STA Stop: 05/30/19 14:56 Last Admin: 05/30/19 15:17 Dose: 20 mg Documented by: [id number] Cefepime HCl (Maxipime) 2,000 mg in 20 mls @ 5 mls/min IV NOW STA; Protocol Stop: 05/30/19 14:58 Last Admin: 05/30/19 15:19 Dose: 5 mls/min Documented by: [id number] Medical Decision Making Differential Diagnosis Differential diagnoses includes but is not limited to pneumonia, bronchitis, COPD/Asthma exacerbation, pneumothorax, pulmonary embolism, congestive heart failure, acute coronary syndrome. Medical Records Attestation: I reviewed the patient's medical records. Home Medications Current Medication List: was personally reviewed by me Laboratory Data Attestation: I reviewed the patient's lab results. Result diagrams: 05/30/19 13:45 05/30/19 13:45 Lab Results 05/30/19 05/30/19 05/30/19 Range/Units 13:45 13:45 13:45 WBC 15.44 H (4.8-10.8) K/uL RBC 3.01 L (4.2-5.4) M/uL Hgb 9.1 L (12.0-16.0) g/dL Hct 28.1 L (37-47) % MCV 93.4 (80-100) fL MCH 30.2 (25-34) pg MCHC 32.4 (32-36) g/dL RDW Std Deviation 45.7 (36.4-46.3) fL RDW Coeff of Rico 13.6 (11.5-14.5) % Plt Count 208 (130-400) K/uL MPV 9.4 (7.4-10.4) fL Immature Gran % (Auto) 0.5 % Neut % (Auto) 90.0 % Lymph % (Auto) 4.0 % Holt % (Auto) 4.9 % Eos % (Auto) 0.4 % Baso % (Auto) 0.2 % Immature Gran # (Auto) 0.07 H (0.00-0.02) K/uL Neut # (Auto) 13.91 H (1.4-6.5) K/uL Lymph # (Auto) 0.62 L (1.2-3.4) K/uL Holt # (Auto) 0.75 H (0.11-0.59) K/uL Eos # (Auto) 0.06 (0-0.5) K/uL Baso # (Auto) 0.03 (0-0.2) K/uL PT 10.9 (9.0-12.0) Seconds INR 1.1 (0.9-1.1) APTT 31.0 (21.0-31.0) Seconds PTT Ratio 1.1 Sodium 142 (136-145) mmol/L Potassium 5.5 H (3.5-5.1) mmol/L Chloride 117 H (98-107) mmol/L Carbon Dioxide 19 L (21-32) mmol/L Anion Gap 6.0 (3-11) BUN 97 H (7-18) mg/dl Creatinine 3.54 H (0.6-1.2) mg/dl Est Cr Clr Drug Dosing 15.5 ml/min Est GFR ( Amer) 15.0 Est GFR (Non-Af Amer) 12.9 BUN/Creatinine Ratio 27.5 H (10-20) Glucose 124 H (70-99) mg/dl Lactate (0.4-2.0) mmol/L Calcium 9.0 (8.5-10.1) mg/dl Magnesium 2.4 (1.8-2.4) mg/dl Total Bilirubin 0.3 (0.2-1) mg/dl AST 20 (15-37) U/L ALT 53 (12-78) U/L Alkaline Phosphatase 66 (45-117) U/L Troponin I < 0.015 (0-0.045) ng/ml NT-Pro-B Natriuret Pep 6939 H (0-900) pg/ml Total Protein 7.0 (6.4-8.2) gm/dl Albumin 2.9 L (3.4-5.0) gm/dl Globulin 4.1 H (2.5-4.0) gm/dl Albumin/Globulin Ratio 0.7 L (0.9-2) Procalcitonin (0-0.5) ng/ml Urine Color Urine Appearance (Clear) Urine pH (4.5-7.5) Ur Specific [place] (1.000-1.030) Urine Protein (Negative) Urine Glucose (UA) (Negative) Urine Ketones (Negative) Urine Blood (Negative) Urine Nitrite (Negative) Urine Bilirubin (Negative) Urine Urobilinogen (Negative) Ur Leukocyte Esterase (Negative) Urine WBC (Auto) (0-5) /hpf Urine RBC (Auto) (0-4) /hpf U Hyaline Cast (Auto) (0-5) /lpf U Epithel Cells (Auto) (0-5) /lpf Urine Bacteria (Auto) (Negative) Urine Yeast Influenza Type A (PCR) (Neg) Influenza Type B (PCR) (Neg) 05/30/19 05/30/19 05/30/19 Range/Units 13:45 13:45 14:25 WBC (4.8-10.8) K/uL RBC (4.2-5.4) M/uL Hgb (12.0-16.0) g/dL Hct (37-47) % MCV (80-100) fL MCH (25-34) pg MCHC (32-36) g/dL RDW Std Deviation (36.4-46.3) fL RDW Coeff of Rico (11.5-14.5) % Plt Count (130-400) K/uL MPV (7.4-10.4) fL Immature Gran % (Auto) % Neut % (Auto) % Lymph % (Auto) % Holt % (Auto) % Eos % (Auto) % Baso % (Auto) % Immature Gran # (Auto) (0.00-0.02) K/uL Neut # (Auto) (1.4-6.5) K/uL Lymph # (Auto) (1.2-3.4) K/uL Holt # (Auto) (0.11-0.59) K/uL Eos # (Auto) (0-0.5) K/uL Baso # (Auto) (0-0.2) K/uL PT (9.0-12.0) Seconds INR (0.9-1.1) APTT (21.0-31.0) Seconds PTT Ratio Sodium (136-145) mmol/L Potassium (3.5-5.1) mmol/L Chloride (98-107) mmol/L Carbon Dioxide (21-32) mmol/L Anion Gap (3-11) BUN (7-18) mg/dl Creatinine (0.6-1.2) mg/dl Est Cr Clr Drug Dosing ml/min Est GFR ( Amer) Est GFR (Non-Af Amer) BUN/Creatinine Ratio (10-20) Glucose (70-99) mg/dl Lactate 0.6 (0.4-2.0) mmol/L Calcium (8.5-10.1) mg/dl Magnesium (1.8-2.4) mg/dl Total Bilirubin (0.2-1) mg/dl AST (15-37) U/L ALT (12-78) U/L Alkaline Phosphatase (45-117) U/L Troponin I (0-0.045) ng/ml NT-Pro-B Natriuret Pep (0-900) pg/ml Total Protein (6.4-8.2) gm/dl Albumin (3.4-5.0) gm/dl Globulin (2.5-4.0) gm/dl Albumin/Globulin Ratio (0.9-2) Procalcitonin 0.50 (0-0.5) ng/ml Urine Color Urine Appearance (Clear) Urine pH (4.5-7.5) Ur Specific [place] (1.000-1.030) Urine Protein (Negative) Urine Glucose (UA) (Negative) Urine Ketones (Negative) Urine Blood (Negative) Urine Nitrite (Negative) Urine Bilirubin (Negative) Urine Urobilinogen (Negative) Ur Leukocyte Esterase (Negative) Urine WBC (Auto) (0-5) /hpf Urine RBC (Auto) (0-4) /hpf U Hyaline Cast (Auto) (0-5) /lpf U Epithel Cells (Auto) (0-5) /lpf Urine Bacteria (Auto) (Negative) Urine Yeast Influenza Type A (PCR) Neg for Influ A (Neg) Influenza Type B (PCR) Neg for Influ B (Neg) 05/30/19 Range/Units 16:20 WBC (4.8-10.8) K/uL RBC (4.2-5.4) M/uL Hgb (12.0-16.0) g/dL Hct (37-47) % MCV (80-100) fL MCH (25-34) pg MCHC (32-36) g/dL RDW Std Deviation (36.4-46.3) fL RDW Coeff of Rico (11.5-14.5) % Plt Count (130-400) K/uL MPV (7.4-10.4) fL Immature Gran % (Auto) % Neut % (Auto) % Lymph % (Auto) % Holt % (Auto) % Eos % (Auto) % Baso % (Auto) % Immature Gran # (Auto) (0.00-0.02) K/uL Neut # (Auto) (1.4-6.5) K/uL Lymph # (Auto) (1.2-3.4) K/uL Holt # (Auto) (0.11-0.59) K/uL Eos # (Auto) (0-0.5) K/uL Baso # (Auto) (0-0.2) K/uL PT (9.0-12.0) Seconds INR (0.9-1.1) APTT (21.0-31.0) Seconds PTT Ratio Sodium (136-145) mmol/L Potassium (3.5-5.1) mmol/L Chloride (98-107) mmol/L Carbon Dioxide (21-32) mmol/L Anion Gap (3-11) BUN (7-18) mg/dl Creatinine (0.6-1.2) mg/dl Est Cr Clr Drug Dosing ml/min Est GFR ( Amer) Est GFR (Non-Af Amer) BUN/Creatinine Ratio (10-20) Glucose (70-99) mg/dl Lactate (0.4-2.0) mmol/L Calcium (8.5-10.1) mg/dl Magnesium (1.8-2.4) mg/dl Total Bilirubin (0.2-1) mg/dl AST (15-37) U/L ALT (12-78) U/L Alkaline Phosphatase (45-117) U/L Troponin I (0-0.045) ng/ml NT-Pro-B Natriuret Pep (0-900) pg/ml Total Protein (6.4-8.2) gm/dl Albumin (3.4-5.0) gm/dl Globulin (2.5-4.0) gm/dl Albumin/Globulin Ratio (0.9-2) Procalcitonin (0-0.5) ng/ml Urine Color Yellow Urine Appearance Clear (Clear) Urine pH 5.0 (4.5-7.5) Ur Specific [place] 1.011 (1.000-1.030) Urine Protein 2+ H (Negative) Urine Glucose (UA) Negative (Negative) Urine Ketones Negative (Negative) Urine Blood 1+ H (Negative) Urine Nitrite Negative (Negative) Urine Bilirubin Negative (Negative) Urine Urobilinogen Negative (Negative) Ur Leukocyte Esterase Negative (Negative) Urine WBC (Auto) 1-5 (0-5) /hpf Urine RBC (Auto) 0-4 (0-4) /hpf U Hyaline Cast (Auto) 1-5 (0-5) /lpf U Epithel Cells (Auto) 5-10 H (0-5) /lpf Urine Bacteria (Auto) 1+ H (Negative) Urine Yeast Not Reportable Influenza Type A (PCR) (Neg) Influenza Type B (PCR) (Neg) Imaging Data Radiologist's Impression: Radiology results as stated below per my review and the radiologist's interpretation: XR chest 1V portable CLINICAL HISTORY: Dyspnea COMPARISON STUDY: 05/20/2019 FINDINGS: The cardiac and mediastinal contours remain stable. There is a left- sided PICC catheter. There are progressive bilateral pulmonary airspace opacities. Diagnostic considerations include a multifocal pneumonia versus atypical appearance of pulmonary edema. Small pleural effusions are suspected.[ IMPRESSION: Progressive bilateral pulmonary airspace opacities. The main differential lies between a multifocal pneumonia versus atypical appearance of pulmonary edema. Clinical and radiographic follow-up is recommended ACT 112: Negative or not required by law. Electronically signed by: Marco Nieto M.D. 05/30/2019 2:09 PM ECG Data Attestation: I personally reviewed and interpreted this ECG as follows: Indication: + SOB/dyspnea Rate (beats per minute): 79 Rhythm: + sinus rhythm ECG Intervals/blocks: + Normal QRS and + Normal QT ECG ST segments: no ST elevation ECG Findings: + PVCs and + Other (Motion artifact.) Blood Pressure Blood Pressure Findings: Elevated blood pressure Blood Pressure Disposition: further management by hospitalist CLOTILDE Narrative Patient is a 64-year-old female presenting today with complaint of shortness of breath and nausea. Multiple chronic medical conditions including hypertension, dyslipidemia, type 2 diabetes, CKD, right foot osteomyelitis. Patient was recently admitted for symptomatic anemia as well as osteomyelitis of the foot. During prior admission the patient was hypoxic on room air thought to be secondary some volume overload. Patient again presents today complaining shortness of breath. Evidently developed overnight. Now requiring oxygen. Grace haque has been off Lasix for several days due to rising kidney function at [facility]. Was actually planning for discharge home soon as her wound on her foot is actually significantly improved. Denies pain. Little bit nausea earlier but none now benign abdomen. Reviewed the radiology report and the images myself of the chest x-ray showing evidence of bilateral pulmonary airspace opacities of atypical pulmonary edema versus multifocal pneumonia. Patient again has been afebrile but hypoxic tach ypneic with a new leukocytosis noted. proBNP is also elevated similar to previous value. Creatinine appears similar to the last several values during her stay. Given a small amount of additional Lasix here. Covered broadly with cefepime for any possible pneumonia as her leukocytosis is noted here. Lactate, procalcitonin, and cultures ordered. Lactate not significantly elevated. Flu testing is negative. Procalcitonin pending. With hypoxia and findings discussed with the [facility] hospitalist for further evaluation given her new oxygen requirement. I doubt this represents acute PE in light of the prophylactic anticoagulation she has been on and the x-ray findings. Impression & Plan Hypoxia, Multifocal pneumonia, Fluid overload Discharge Plan Visit Data Chief Complaint: Shortness of Breath/Dyspnea Stated Complaint: sob/nausea ED Provider: Rian Adan Discharge Problem: Hypoxia, Multifocal pneumonia, Fluid overload Patient Disposition: Being Evaluated by Hospitalist Discharge Instructions Interventions: ED Discharge Assessment Last Done: 05/30/19 17:01 Forms Stand Alone Forms: [facility] RFIDeas Prescriptions Prescriptions: No Action cholecalciferol (vitamin D3) [Vitamin D3] 2,000 unit Capsule 4,000 unit PO DAILY RF: 0 aspirin [Ecotrin Low Strength] 81 mg tablet,delayed release (DR/EC) 81 mg PO DAILY RF: 0 Lactobacillus acidoph-L.bulgar [Floranex] 1 million cell Tablet 4 tab PO QIDM 30 Days Qty: 480 RF: 0 daptomycin 350 mg recon soln 325 mg IV Q48H Qty: 20 RF: 0 Humulin R Regular U-100 Insuln 100 unit/mL Solution 1 sliding scale dose SUBCUT USEASDIRECTD RF: 0 docusate sodium 100 mg Capsule 100 mg PO BID RF: 0 carvedilol 6.25 mg tablet 6.25 mg PO BIDM RF: 0 sodium chloride 0.9 % (flush) [Normal Saline Flush] Syringe 5 ml IV Q8H RF: 0 sennosides-docusate sodium [Senokot-S] 8.6-50 mg Tablet 1 tab-cap PO DAILY PRN (Reason: Constipation) RF: 0 bisacodyl 10 mg Suppository 10 mg LA DAILY PRN (Reason: Constipation) RF: 0 Fleet Enema 19-7 gram/118 mL Enema 118 ml LA DAILY PRN (Reason: Constipation) RF: 0 polyethylene glycol 3350 [Miralax] 17 gram/dose Powder 17 g PO DAILY PRN (Reason: Constipation) RF: 0 ferrous sulfate 325 mg (65 mg iron) Tablet,Delayed Release (Dr/Ec) 325 mg PO BIDM 30 Days Qty: 60 RF: 0 Basaglar KwikPen U-100 Insulin 100 unit/mL (3 mL) insulin pen 30 unit SUBCUT HS RF: 0 amlodipine 10 mg tablet 10 mg PO DAILY RF: 0 pantoprazole [Protonix] 40 mg Tablet,Delayed Release (Dr/Ec) 40 mg PO BID RF: 0 Referrals Referrals: Melissa Bronson DO [Primary Care Provider] - Discharge Problem: Fluid overload Qualifiers: Hypervolemia type: unspecified Qualified Code(s): E87.70 - Fluid overload, unspecified The scribe's documentation has been prepared under my direction and personally reviewed by me in its entirety. I confirm that the note above accurately reflects all work, treatment, procedures, and medical decision making performed by me.
[2019-05-30] MEDS ORDERED: CARBOHYDRATES FOR HYPOGLYCEMIA PO PRN (18:24)
[2019-05-30] MEDS ORDERED: ACETAMINOPHEN 325 MG TAB PO PRN (18:24)
[2019-05-30] MEDS ORDERED: DEXTROSE 50% 50 ML SYRINGE IV PRN (18:24)
[2019-05-30] MEDS ORDERED: GLUCAGON FOR INJ 1 MG VIAL SQ PRN (18:24)
[2019-05-30] MEDS ORDERED: GLUCOSE 10 TABS/TUBE PO PRN (18:24)
[2019-05-30] MEDS ORDERED: GLUCOSE 40% GEL 15 GM TUBE PO PRN (18:24)
[2019-05-30] MEDS ORDERED: POLYETHYLENE (MIRALAX) 17 GM PACK PO PRN ×2 (18:24→18:44)
[2019-05-30] MEDS ORDERED: DOCUSATE SODIUM/SENNA 50/8.6MG TAB PO PRN (18:44)
[2019-05-30] MEDS ORDERED: bisacodyL 10 MG SUPP PR PRN (18:44)
[2019-05-30] MEDS ORDERED: CEFEPIME CONSULT ACTIVE PRN (18:50)
[2019-05-30] MEDS ORDERED: DAPTOMYCIN CONSULT ACTIVE PRN (18:59)
[2019-05-30] MEDS: ALBUT/IPRATROP 3MG/0.5MG NEB 3 ML VIAL NEB SCH (19:19)
[2019-05-30] MEDS: INSULIN GLARGINE SOLOSTAR 100 UNITS/ML 3 ML PEN SC SCH (19:39)
[2019-05-30] MEDS: SODIUM CHLORIDE 0.9% 2.5 ML FLUSH IV SCH (19:39)
[2019-05-30] MEDS: INSULIN ASPART 100 UNITS/ML 3 ML PEN SC SCH (19:40)
[2019-05-30] MEDS: DOCUSATE SODIUM 100 MG CAP PO SCH (20:40)
[2019-05-30] MEDS: LACTOBACILLUS ACIDOPHILUS (FLORANEX) TAB PO SCH (20:40)
[2019-05-30] MEDS: PANTOprazole 40 MG TAB PO SCH (20:40)
[2019-05-30] MEDS: HEPARIN SOD 5,000 UNIT/0.5 ML VIAL SQ SCH (20:40)
[2019-05-31] MEDS: SODIUM CHLORIDE 0.9% 2.5 ML FLUSH IV SCH ×3 (04:40→16:14)
[2019-05-31] MEDS: HEPARIN SOD 5,000 UNIT/0.5 ML VIAL SQ SCH ×3 (05:36→21:57)
--- NOTE | 2019-05-31 06:11 | Electrocardiogram Report ---
Test Reason : Blood Pressure : / mmHG Vent. Rate : 079 BPM Atrial Rate : 079 BPM P-R Int : 154 ms QRS Dur : 072 ms QT Int : 372 ms P-R-T Axes : 043 040 038 degrees QTc Int : 426 ms Poor data quality, interpretation may be adversely affected Sinus rhythm with occasional Premature ventricular complexes When compared with ECG of 18-MAY-2019 13:29, Premature ventricular complexes are now Present Confirmed by Ousmane Cheema ([id number]) on 05/31/2019 6:11:13 AM Referred By: REFERRED SELF Confirmed By:Ousmane Cheema
[2019-05-31 06:40] LABS: Hematocrit (blood only) 25.1 % (37-47); Hemoglobin 8.3 g/dL (12.0-16.0); Mean Corpuscular Hemoglobin 30.9 pg (25-34); Mean Corpuscular Hgb Conc 33.1 g/dL (32-36); Mean Corpuscular Volume 93.3 fL (80-100); Mean Platelet Volume 9.5 fL (7.4-10.4); Platelet Count 195 K/uL (130-400); RDW Coefficient of Variation 13.9 % (11.5-14.5); RDW Standard Deviation 47.8 fL (36.4-46.3); Red Blood Count 2.69 M/uL (4.2-5.4); White Blood Count 9.69 K/uL (4.8-10.8)
[2019-05-31] MEDS: ALBUT/IPRATROP 3MG/0.5MG NEB 3 ML VIAL NEB SCH ×4 (07:19→19:26)
--- NOTE | 2019-05-31 07:26 | XRay Report ---
XR chest 1V portable CLINICAL HISTORY: CHF dyspnea COMPARISON STUDY: 05/30/2019 FINDINGS: Unchanged exam. Bilateral parenchymal infiltrates versus pulmonary edema are considered sta ble. Diaphragms remain smooth. The central catheter remains in superior vena cava. IMPRESSION: Unchanged exam. No change in the diffuse bilateral parenchymal infiltrative/pulmonary ed ematous change. ACT 112: Negative or not required by law. The above report was generated using voice recognition software. It may contain grammatical, syntax or spelling errors. Electronically signed by: Jose Ahmadi M.D. 05/31/2019 7:24 AM
[2019-05-31 07:31] LABS: BUN Creatinine Ratio 25.8 (10-20); Creatinine Clr Calc Pharmacy 15.2 ml/min; Est GFR (African American) 14.7; Est GFR (Non-African American) 12.6
--- NOTE | 2019-05-31 07:52 | Nephrology Consultation ---
Date of Consultation May 31, 2019 Assessment & Plan (1) Stage 5 chronic kidney disease not on chronic dialysis: 64 y o F with stage 4/5 CKD, admitted with hypoxic respiratory failure. CXR with possible pneumonia vs pulmonary edema, has been off of diuretics recently. Renal function relatively stable, with electrolyte abnormality. Respiratory status improved with diuretics. --resume lasix at 40 mg po daily --start on NaHCO3 650 BID --check iron study, phos, PTH --no indication for PARTICLE BOARD SUPERVISOR but she is getting very close to needing PARTICLE BOARD SUPERVISOR in near future. Will follow Thanks for the consultation. (2) Hyperkalemia: (3) Metabolic acidosis: (4) Type 2 diabetes mellitus: (5) Anemia: History of Present Illness Reason for Consultation: Stage 4/5 CKD, hyperkalemia, metabolci acidosis Attending Physician: Tyler Rodriguez MD History of Present Illness Jeri Riley is a 64-year-old female past medical history significant for stage IV/V CKD, hypertension, type 2 diabetes admitted to the hospital with multifocal pneumonia and possibly pulmonary edema. Nephrology consult was requested to manage advanced CKD and hyperkalemia. Electronic medical records including labs and imaging were reviewed in detail during patient's visit. Jeri presents to the hospital yesterday from [facility] with progressive respiratory distress and found to have hypoxic respiratory failure. She was there for h/o rt foot osteomyelitis and was non bearing. Chest x-ray was suggestive of possible multifocal pneumonia and pulmonary congestion is she was started on Cefepime and Daptomycin. She was on Lasix until recently when it was stopped at [facility] as she was thought to be dehydrated and she feels that when she started to have SOB. She was given Lasix 40 mg IV on admission with significant improvement in her symptoms. She has underlying advanced CKD stage 4/5 with b/l cr lately staying around 3.0-3.5, secondary to diabetic nephropathy. Since admission creatinine close to b/l around 3.5-3.6, has hyperkalemia and metabolic acidosis. She still makes decent amount of urine. Blood pressure acceptable. She was seen by Dr. Ambrocio before , last f/u was in October and she was supposed to be seen in 2 months but she missed f/u. No f/h of chronic kidney disease or end-stage renal disease. Sister had history of ovarian cancer, brother has history of hypertension. Never smoker. Currently she is feeling better. Allergies Allergy/AdvReac Type Severity Reaction Status Date / Time No Known Allergies Allergy Unknown Verified 05/30/19 13:59 Home Medications Home Medications Medication Instructions Recorded Confirmed Type cholecalciferol (vitamin D3) 4,000 unit PO DAILY 07/07/18 05/30/19 History [Vitamin D3] aspirin [Ecotrin Low Strength] 81 mg PO DAILY 05/12/19 05/30/19 History Lactobacillus acidoph-L.bulgar 4 tab PO QIDM 30 Days #480 tab 05/17/19 05/30/19 Rx [Floranex] daptomycin 325 mg IV Q48H #20 ea 05/17/19 05/30/19 Rx Fleet Enema 118 ml [place] DAILY PRN 05/18/19 05/30/19 History Humulin R Regular U-100 Insuln 1 sliding scale dose SUBCUT 05/18/19 05/30/19 History USEASDIRECTD bisacodyl 10 mg AL DAILY PRN 05/18/19 05/30/19 History carvedilol 6.25 mg PO BIDM 05/18/19 05/30/19 History docusate sodium 100 mg PO BID 05/18/19 05/30/19 History polyethylene glycol 3350 [Miralax] 17 g PO DAILY PRN 05/18/19 05/30/19 History sennosides-docusate sodium 1 tab-cap PO DAILY PRN 05/18/19 05/30/19 History [Senokot-S] sodium chloride 0.9 % (flush) 5 ml IV Q8H 05/18/19 05/30/19 History [Normal Saline Flush] ferrous sulfate 325 mg PO BIDM 30 Days #60 tab 05/20/19 05/30/19 Rx amlodipine 10 mg PO DAILY 05/30/19 05/30/19 History insulin glargine [Basaglar KwikPen 30 unit SUBCUT HS 05/30/19 05/30/19 History U-100 Insulin] pantoprazole [Protonix] 40 mg PO BID 05/30/19 05/30/19 History Patient History Medical History Chronic kidney disease (CKD), stage IV (severe) (Chronic) Closed fracture of distal end of right fibula and tibia (Inactive) Diabetic neuropathy (Chronic) Dyslipidemia (Chronic) Foot osteomyelitis, right (Chronic) History of depression (Chronic) Hypertension (Chronic) Type 2 diabetes mellitus (Chronic) Surgical History History of appendectomy (Resolved) Status post right foot surgery Family History Sister Ovarian cancer Brother Hypertension Social History Preferred Language: Prydein[place] 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: Effective Psychiatric Attendant Required: No Beliefs That Will Affect Care: None marital status: Current Living Situation: Alone and Other Current Living Situation Comment: lives alone but recently has been at rehab Other Information That Helps Us Care for You: No Feels Safe at Home: Yes Safety Concerns: Feels Safe At This Time Smoking Status: Never smoker Second Hand Exposure: No ; Hx Alcohol Use: No Hx Substance Use: No Review of Systems Review of Systems: All systems reviewed & are unremarkable except as noted in HPI & below Physical Exam Constitutional: WD/WN, vitals as above no acute distress Eyes: PERRL, conjunctivae normal, anicteric sclerae ENMT: external ear and nose normal, oropharynx normal Ears: no hearing impairment Neck: trachea midline Respiratory: normal respiratory effort; no cough Auscultation: + crackles Cardiovascular: RRR, no murmur, no edema Gastrointestinal (Abdomen): normal bowel sounds, soft, nontender, no hepatosplenomegaly Percussion/Palpation: abdomen nontender, no guarding and abdomen not rigid Musculoskeletal: Extremities: extremities normal to inspection Gait: normal gait Skin: no rashes, warm and dry Neurologic: moves all extremities and awake Psychiatric: A+Ox3, euthymic affect Results & Data Vital Signs (Past 12 Hours) Vital Signs Temp Pulse Pulse Resp BP Pulse Ox 05/31/19 07:19 72 18 94 05/31/19 07:07 37.2 C 63 18 158/73 H 96 05/31/19 03:58 37.0 C 67 20 151/72 H 96 05/31/19 00:00 68 05/30/19 23:12 37.6 C H 72 18 159/72 H 95 PG Care Time/CCT Total # of Minutes Spent Total Time Spent with Patient: Total time spent is greater than 50% in coor dination of care (as documented) at patient's floor/unit and/or counseling patient: (1) Anemia Anemia type: unspecified type Qualified Code(s): D64.9 - Anemia, unspecified
[2019-05-31] MEDS: INSULIN ASPART 100 UNITS/ML 3 ML PEN SC SCH ×4 (08:14→20:51)
[2019-05-31] MEDS: INSULIN GLARGINE SOLOSTAR 100 UNITS/ML 3 ML PEN SC SCH (08:17)
[2019-05-31] MEDS: PANTOprazole 40 MG TAB PO SCH ×2 (08:18→20:43)
[2019-05-31] MEDS: FERROUS SULFATE 325 MG TAB PO SCH ×2 (08:19→16:13)
[2019-05-31] MEDS: AMLODIPINE BESYLATE 5 MG TAB PO SCH (08:19)
[2019-05-31] MEDS: ASPIRIN 81 MG ECTAB PO SCH (08:19)
[2019-05-31] MEDS: CHOLECALCIFEROL 1,000 UNITS TAB PO SCH (08:19)
[2019-05-31] MEDS: carvediloL 6.25 MG TAB PO SCH ×2 (08:19→16:13)
[2019-05-31] MEDS: DOCUSATE SODIUM 100 MG CAP PO SCH ×2 (08:20→20:43)
[2019-05-31] MEDS: LACTOBACILLUS ACIDOPHILUS (FLORANEX) TAB PO SCH ×4 (08:20→20:43)
--- NOTE | 2019-05-31 10:57 | Hospitalist Progress Note ---
Date of Service May 31, 2019 Assessment & Plan (1) Acute respiratory failure with hypoxia: This is a 64yo F with a PMH of CKD IV, DM II, HTN, R foot osteomyelitis on IV dapto, anemia and other medical problems listed below who presents from [facility] rehab with acute hypoxic respiratory failure -hypoxia of 71% on room air, wheezing and cough with mild amount of productive sputum due to acute decompensation of CHF diastolic dysfunction with preserved LVEF symptom improved after diuresis ACUTE CHF WITH PRESERVED LVEF : 2D echo 05/09/19 : preserved EF of 55-60% , moderate concentric LVH with aortic valve sclerosis presented with vol overload , sob , hypoxia , elevated pro BNP lasix was kept on hold at [facility] rehab due to worsening of renal function cont on IV lasix pt's symptom improved after diuresis. cardiology consulted appreciate input (2) Foot osteomyelitis, right: Has PICC in place for IV Dapto with abx course completion as of Jun 25 -No longer requiring wound vac. Wound care consult placed (3) Chronic kidney disease (CKD), stage IV (severe): Baseline Cr ~ 3.5 but trended up to 4.2 -Follows with [facility] nephro -appreciate input pt is started on PO Hcoc3 for. metabolic acidosis due to uremia cont diuresis with Iv Lasix pt still able to make urine -may need HD in near future - (4) Anemia: due to anemia of chronic disease cont to monitor may need epo or venofer if hb continues to decline , will follow recommendation from Nephrology (5) Type 2 diabetes mellitus: A1c of 8 in Apr 2019 -Hold home agents -Basal/bolus insulin per protocol while in-patient -[facility] (6) Hypertension: Continue amlodipine DVT Ppx: SQ heparin Code status: FULL per discussion with patient PCP: Bruce Bronson Dispo: Subjective feels tired and weak , sob has resolved , no cough , no orthopnea , no fever or chills Review of Systems Review of Systems: All systems reviewed & are unremarkable except as noted in HPI & below Physical Exam Constitutional: WD/WN, vitals as above no acute distress Eyes: PERRL, conjunctivae normal, anicteric sclerae ENMT: external ear and nose normal, oropharynx normal Ears: no hearing impairment Neck: trachea midline Respiratory: normal respiratory effort; no cough Auscultation: + crackles Cardiovascular: RRR, no murmur, no edema Gastrointestinal (Abdomen): normal bowel sounds, soft, nontender, no hepatosplenomegaly Percussion/Palpation: abdomen nontender, no guarding and abdomen not rigid Musculoskeletal: Extremities: extremities normal to inspection Neurologic: moves all extremities and awake Psychiatric: A+Ox3, euthymic affect Results & Data Vital Signs (Past 12 Hours) Vital Signs Temp Pulse Pulse Resp BP Pulse Ox 05/31/19 08:00 64 05/31/19 07:19 72 18 94 05/31/19 07:07 37.2 C 63 18 158/73 H 96 05/31/19 03:58 37.0 C 67 20 151/72 H 96 05/31/19 00:00 68 05/30/19 23:12 37.6 C H 72 18 159/72 H 95 (1) Anemia Anemia type: unspecified type Qualified Code(s): D64.9 - Anemia, unspecified (2) Hypertension Hypertension type: essential hypertension Qualified Code(s): I10 - Essential (primary) hypertension
[2019-05-31] MEDS: SODIUM BICARBONATE 650 MG TAB PO SCH ×2 (12:07→20:44)
[2019-05-31] MEDS: FUROSEMIDE 40 MG TAB PO SCH (12:07)
--- NOTE | 2019-05-31 13:29 | Infectious Disease Consult ---
Date of Consultation May 31, 2019 Assessment & Plan (1) Foot osteomyelitis, right: continue dapto, will need weekly cbc,cmp, esr, cpk while on therapy, will need 6 weeks from 05/13. History of Present Illness Attending Physician: Lien Knight MD pt seen in consult, was admitted with resp distress, feeling much better. 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 family at bedside. currently denies sob, cp, no n/v/d. abd pain, tolerating abx, renally dosed. cxr with infiltrates/fluid, cefepime added, wbc 15 initially, 9 today, creat 3.6. UA and flu negative. procalcitonin 0.5. blood cutlures pending. Allergies Allergy/AdvReac Type Severity Reaction Status Date / Time No Known Allergies Allergy Unknown Verified 05/30/19 13:59 Home Medications Home Medications Medication Instructions Recorded Confirmed Type cholecalciferol (vitamin D3) 4,000 unit PO DAILY 07/07/18 05/30/19 History [Vitamin D3] aspirin [Ecotrin Low Strength] 81 mg PO DAILY 05/12/19 05/30/19 History Lactobacillus acidoph-L.bulgar 4 tab PO QIDM 30 Days #480 tab 05/17/19 05/30/19 Rx [Floranex] daptomycin 325 mg IV Q48H #20 ea 05/17/19 05/30/19 Rx Fleet Enema 118 ml [place] DAILY PRN 05/18/19 05/30/19 History Humulin R Regular U-100 Insuln 1 sliding scale dose SUBCUT 05/18/19 05/30/19 History USEASDIRECTD bisacodyl 10 mg [place] DAILY PRN 05/18/19 05/30/19 History carvedilol 6.25 mg PO BIDM 05/18/19 05/30/19 History docusate sodium 100 mg PO BID 05/18/19 05/30/19 History polyethylene glycol 3350 [Miralax] 17 g PO DAILY PRN 05/18/19 05/30/19 History sennosides-docusate sodium 1 tab-cap PO DAILY PRN 05/18/19 05/30/19 History [Senokot-S] sodium chloride 0.9 % (flush) 5 ml IV Q8H 05/18/19 05/30/19 History [Normal Saline Flush] ferrous sulfate 325 mg PO BIDM 30 Days #60 tab 05/20/19 05/30/19 Rx amlodipine 10 mg PO DAILY 05/30/19 05/30/19 History insulin glargine [Basaglar KwikPen 30 unit SUBCUT HS 05/30/19 05/30/19 History U-100 Insulin] pantoprazole [Protonix] 40 mg PO BID 05/30/19 05/30/19 History Patient History Medical History Chronic kidney disease (CKD), stage IV (severe) (Chronic) Closed fracture of distal end of right fibula and tibia (Inactive) Diabetic neuropathy (Chronic) Dyslipidemia (Chronic) Foot osteomyelitis, right (Chronic) History of depression (Chronic) Hypertension (Chronic) Type 2 diabetes mellitus (Chronic) Surgical History History of appendectomy (Resolved) Status post right foot surgery Family History Sister Ovarian cancer Brother Hypertension Social History Preferred Language: Cuban 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: Effective Automated Access Systems Technician Required: No Beliefs That Will Affect Care: None marital status: Current Living Situation: Alone and Other Current Living Situation Comment: lives alone but recently has been at rehab Other Information That Helps Us Care for You: No Feels Safe at Home: Yes Safety Concerns: Feels Safe At This Time Smoking Status: Never smoker Second Hand Exposure: No ; Hx Alcohol Use: No Hx Substance Use: No Review of Systems Review of Systems: All systems reviewed & are unremarkable except as noted in HPI & below Physical Exam ENMT: external ear and nose normal, oropharynx normal Neck: normal visual inspection Respiratory: normal respiratory effort, lungs clear to auscultation Cardiovascular: RRR, no murmur, no edema Gastrointestinal (Abdomen): normal bowel sounds, soft, nontender, no hepatosplenomegaly Musculoskeletal: no cyanosis or clubbing, extremities motor strength 5/5 Skin: no rashes, warm and dry Results & Data Vital Signs (Past 12 Hours) Vital Signs Temp Pulse Pulse Resp BP Pulse Ox 05/31/19 11:42 36.9 C 67 19 144/70 H 96 05/31/19 08:00 64 05/31/19 07:19 72 18 94 05/31/19 07:07 37.2 C 63 18 158/73 H 96 05/31/19 03:58 37.0 C 67 20 151/72 H 96 PG Care Time/CCT Total # of Minutes Spent Total Time Spent with Patient: Total time spent is greater than 50% in coordination of care (as documented) at patient's floor/unit and/or counseling patient:
[2019-05-31] MEDS ORDERED: INSULIN GLARGINE SOLOSTAR 100 UNITS/ML 3 ML PEN SC SCH (13:37)
[2019-05-31 14:52] LABS: Ferritin 437.6 ng/ml (8-388)
[2019-05-31] MEDS ORDERED: CEFEPIME 2,000 MG in SYRINGE 7.5 ML IV SCH (15:00)
--- NOTE | 2019-05-31 15:28 | Cardiology Consultation ---
Date of Consultation May 31, 2019 Assessment & Plan (1) Pulmonary edema: (2) Chronic kidney disease (CKD), stage IV (severe): (3) Hyperkalemia: EKG performed 05/30/2019 was technically limited but revealed sinus rhythm, in terms of ischemia, it is nondiagnostic, and of course needs to be repeated.Her troponin was negative x1. The patient feels subjectively improved, received a dose of 20 mg of IV furosemide and she is now back on her oral dose of 40 mg of furosemide p.o. daily as recommended by nephrology. Echocardiogram reveals preserved LVEF without significant valvular heart disease, and grade 2 diastolic dysfunction. This is likely consistent with high filling pressures, and is not unexpected in a patient with her degree of renal insufficiency. I recommend ongoing treatment with her current diuretic regimen. Her volume status is somewhat tenuous, and it seems like she has improved significantly from a clinical standpoint at this point. Her blood pressure is well controlled. I do not think she requires any further cardiac testing or change medications at this time pending review of her repeat EKG. History of Present Illness Attending Physician: Lien Knight MD History of Present Illness Jeri Riley is a 64 year old female seen in cardiology consultation per the request of Marcela Tjeada PA-C for the evaluation of shortness of breath and concerns for congestive heart failure. The patient has a history of multiple recent hospital admissions including recent discharge on 05/21/2019 having presented at that time with anemia and ongoing care of a right diabetic foot ulcer with associated osteomyelitis. She was discharged with treatment including ongoing therapy with IV daptomycin administered via a PICC line. She states that she had been at [facility] health noted several days of progressive shortness of breath prompting presentation to the emergency room last evening. Chest x-ray on presentation suggested possible bilateral parenchymal infiltrates as well as possible pulmonary edema. She has a history of stage IV chronic kidney disease, and during her recent hospital stay her creatinine had trended up she was discharged with a creatinine of 3.78 on 05/20/2019. On presentation overnight last night her creatinine was 3.54 and it is 3.6 today. proBNP was elevated at 6939 PG per mL. Potassium was elevated at 5.5 on 05/30/2019 and improved to 5 today. During my assessment of the patient after echocardiogram as well as in her room later today, she was breathing comfortably. Without concerns stating that she had felt better than she did yesterday. Allergies Allergy/AdvReac Type Severity Reaction Status Date / Time No Known Allergies Allergy Unknown Verified 05/30/19 13:59 Home Medications Home Medications Medication Instructions Recorded Confirmed Type cholecalciferol (vitamin D3) 4,000 unit PO DAILY 07/07/18 05/30/19 History [Vitamin D3] aspirin [Ecotrin Low Strength] 81 mg PO DAILY 05/12/19 05/30/19 History Lactobacillus acidoph-L.bulgar 4 tab PO QIDM 30 Days #480 tab 05/17/19 05/30/19 Rx [Floranex] daptomycin 325 mg IV Q48H #20 ea 05/17/19 05/30/19 Rx Fleet Enema 118 ml [place] DAILY PRN 05/18/19 05/30/19 History Humulin R Regular U-100 Insuln 1 sliding scale dose SUBCUT 05/18/19 05/30/19 History USEASDIRECTD bisacodyl 10 mg [place] DAILY PRN 05/18/19 05/30/19 History carvedilol 6.25 mg PO BIDM 05/18/19 05/30/19 History docusate sodium 100 mg PO BID 05/18/19 05/30/19 History polyethylene glycol 3350 [Miralax] 17 g PO DAILY PRN 05/18/19 05/30/19 History sennosides-docusate sodium 1 tab-cap PO DAILY PRN 05/18/19 05/30/19 History [Senokot-S] sodium chloride 0.9 % (flush) 5 ml IV Q8H 05/18/19 05/30/19 History [Normal Saline Flush] ferrous sulfate 325 mg PO BIDM 30 Days #60 tab 05/20/19 05/30/19 Rx amlodipine 10 mg PO DAILY 05/30/19 05/30/19 History insulin glargine [Basaglar KwikPen 30 unit SUBCUT HS 05/30/19 05/30/19 History U-100 Insulin] pantoprazole [Protonix] 40 mg PO BID 05/30/19 05/30/19 History Patient History Medical History Chronic kidney disease (CKD), stage IV (severe) (Chronic) Closed fracture of distal end of right fibula and tibia (Inactive) Diabetic neuropathy (Chronic) Dyslipidemia (Chronic) Foot osteomyelitis, right (Chronic) History of depression (Chronic) Hypertension (Chronic) Type 2 diabetes mellitus (Chronic) Surgical History History of appendectomy (Resolved) Status post right foot surgery Family History Sister Ovarian cancer Brother Hypertension Social History Preferred Language: Tanzanian 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: 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 Beliefs That Will Affect Care: None marital status: Current Living Situation: Alone and Other Current Living Situation Comment: lives alone but recently has been at rehab Other Information That Helps Us Care for You: No Feels Safe at Home: Yes Safety Concerns: Feels Safe At This Time Smoking Status: Never smoker Second Hand Exposure: No ; Hx Alcohol Use: No Hx Substance Use: No Review of Systems Review of Systems: All systems reviewed & are unremarkable except as noted in HPI & below Physical Exam Physical Exam: Temp Pulse Resp BP Pulse Ox 36.9 C 74 18 144/70 H 98 05/31/19 11:42 05/31/19 15:19 05/31/19 15:19 05/31/19 11:42 05/31/19 15:19 Constitutional: WD/WN, vitals as above Eyes: PERRL, conjunctivae normal, anicteric sclerae Respiratory: Decreased breath sounds the bases, no rhonchi Cardiovascular: Rate/Rhythm: regular rhythm Heart Sounds: no murmur Vessels: + JVD (Jugular venous pressure is difficult to assess due to her body habitus) Extremities: + edema (Trace lower extremity edema, patient states this is subjectively improved compared to her presentation yesterday) Gastrointestinal (Abdomen): normal bowel sounds, soft, nontender, no hepatos plenomegaly Neurologic: PERRL, EOMI, accommodation nl, no face palsy, no dysarthria Results & Data Vital Signs (Past 12 Hours) Vital Signs Temp Pulse Pulse Resp BP Pulse Ox 05/31/19 11:42 36.9 C 67 19 144/70 H 96 05/31/19 08:00 64 05/31/19 07:19 72 18 94 01/10/20 07:07 37.2 C 63 18 158/73 H 96 05/31/19 03:58 37.0 C 67 20 151/72 H 96
--- NOTE | 2019-05-31 16:55 | Electrocardiogram Report ---
Test Reason : Blood Pressure : / mmHG Vent. Rate : 072 BPM Atrial Rate : 072 BPM P-R Int : 156 ms QRS Dur : 072 ms QT Int : 392 ms P-R-T Axes : 031 028 059 degrees QTc Int : 429 ms Normal sinus rhythm Nonspecific T wave abnormality Abnormal ECG When compared with ECG of 30-MAY-2019 12:50, Premature ventricular complexes are no longer Present T wave inversion no longer evident in Inferior leads Confirmed by Byron Gonzalez ([id number]) on 05/31/2019 4:55:25 PM Referred By: REFERRED SELF Confirmed By:Byron Gonzalez
[2019-06-01] MEDS: SODIUM CHLORIDE 0.9% 2.5 ML FLUSH IV SCH ×3 (03:57→17:59)
[2019-06-01] MEDS: HEPARIN SOD 5,000 UNIT/0.5 ML VIAL SQ SCH ×3 (05:22→20:45)
[2019-06-01 05:49] LABS: Hematocrit (blood only) 23.6 % (37-47); Hemoglobin 7.7 g/dL (12.0-16.0); Mean Corpuscular Hemoglobin 30.7 pg (25-34); Mean Corpuscular Hgb Conc 32.6 g/dL (32-36); Mean Platelet Volume 9.4 fL (7.4-10.4); Platelet Count 214 K/uL (130-400); RDW Coefficient of Variation 13.8 % (11.5-14.5); Red Blood Count 2.51 M/uL (4.2-5.4); White Blood Count 8.38 K/uL (4.8-10.8)
[2019-06-01] MEDS ORDERED: DAPTOmycin 325 MG in SYRINGE 0 ML IV SCH (06:00)
[2019-06-01] MEDS ORDERED: DAPTOmycin 300 MG in SYRINGE 0 ML IV SCH (06:00)
[2019-06-01 06:21] LABS: BUN Creatinine Ratio 24.1 (10-20); Calcium 8.6 mg/dl (8.5-10.1); Creatinine Clr Calc Pharmacy 14.9 ml/min; Est GFR (African American) 14.2; Est GFR (Non-African American) 12.3; Potassium 4.8 mmol/L (3.5-5.1)
[2019-06-01] MEDS: ALBUT/IPRATROP 3MG/0.5MG NEB 3 ML VIAL NEB SCH ×4 (07:21→19:30)
[2019-06-01] MEDS: INSULIN ASPART 100 UNITS/ML 3 ML PEN SC SCH ×4 (08:58→20:45)
[2019-06-01] MEDS: LACTOBACILLUS ACIDOPHILUS (FLORANEX) TAB PO SCH ×4 (09:51→20:43)
[2019-06-01] MEDS: CHOLECALCIFEROL 1,000 UNITS TAB PO SCH (09:51)
[2019-06-01] MEDS: DOCUSATE SODIUM 100 MG CAP PO SCH ×2 (09:51→20:43)
[2019-06-01] MEDS: AMLODIPINE BESYLATE 5 MG TAB PO SCH (09:51)
[2019-06-01] MEDS: carvediloL 6.25 MG TAB PO SCH ×2 (09:52→16:38)
[2019-06-01] MEDS: SODIUM BICARBONATE 650 MG TAB PO SCH ×2 (09:52→20:43)
[2019-06-01] MEDS: PANTOprazole 40 MG TAB PO SCH ×2 (09:52→20:44)
[2019-06-01] MEDS: FUROSEMIDE 40 MG TAB PO SCH (09:52)
[2019-06-01] MEDS: FERROUS SULFATE 325 MG TAB PO SCH ×2 (09:52→16:40)
[2019-06-01] MEDS: ASPIRIN 81 MG ECTAB PO SCH (09:52)
--- NOTE | 2019-06-01 15:59 | Nephrology Progress Note ---
Date of Service June 01, 2019 Assessment & Plan (1) Stage 5 chronic kidney disease not on chronic dialysis: CKD IV-V at baseline, admitted with hypoxic respiratory failure associated with pulmonary edema. Renal function relatively stable. Associated electrolyte abnormalities have been reasonably managed medically. There is no emergent indication for dialysis at this time. Jeri is a reasonable negative fluid balance with furosemide 40 mg daily. Urine output is acceptable. She is to lerating oral NaHCO3 for acidosis. We discussed the advanced nature of her kidney dysfunction today. Continue to document I/O's. Repeat metabolic profile tomorrow AM. Renal diet. Medications are appropriately dosed for kidney function. (2) Hyperkalemia: (3) Metabolic acidosis: -- Continue oral NaHCO3 as Rx'd. (4) Type 2 diabetes mellitus: (5) Anemia: -- Tsat <20. Will start venofer 200 mg daily today. Epogen 35711 units x 1 dose will be provided -- Stool for occult blood has been requested. Subjective No acute events overnight. Jeri feels well this AM. She denies pain. She denies dyspnea at rest. No chest pain. No palpitations. No melena or hemato chezia. No fevers or chills. Review of Systems Review of Systems: All systems reviewed & are unremarkable except as noted in HPI & below Physical Exam Constitutional: well developed and + thin; no acute distress Eyes: + conjunctival abnormality (pallor) and + anicteric sclerae ENMT: Mouth: no oral mucosal abnormality and oral mucous membranes not dry Neck: normal visual inspection, trachea midline and + thick neck Respiratory: normal respiratory effort Auscultation: lungs clear to auscultation bilaterally Cardiovascular: Rate/Rhythm: regular rate Heart Sounds: normal S1 and normal S2 Extremities: no edema Gastrointestinal (Abdomen): Percussion/Palpation: abdomen soft; abdomen nontender Musculoskeletal: Extremities: no cyanosis and no clubbing Skin: normal turgor and + pallor Neurologic: Motor/Sensory: no tremor and no asterixis Psychiatric: Orientation: alert and oriented x 3 Results & Data Vital Signs (Past 12 Hours) Vital Signs Temp Pulse Pulse Resp BP Pulse Ox Pulse Ox 06/01/19 15:37 37.0 C 74 18 155/74 H 96 06/01/19 14:54 87 L 06/01/19 11:25 73 18 94 06/01/19 10:52 37.0 C 72 18 161/75 H 94 06/01/19 08:10 36.7 C 65 18 147/83 H 96 06/01/19 08:00 70 06/01/19 07:21 61 18 95 Laboratory Results Laboratory Results - last 24 hr 05/31/19 05/31/19 06/01/19 16:17 20:31 05:16 WBC 8.38 RBC 2.51 L Hgb 7.7 L Hct 23.6 L MCV 94.0 MCH 30.7 MCHC 32.6 RDW Std Deviation 47.0 H RDW Coeff of Rico 13.8 Plt Count 214 MPV 9.4 Sodium Potassium Chloride Carbon Dioxide Anion Gap BUN Creatinine Est Cr Clr Drug Dosing Est GFR ( Amer) Est GFR (Non-Af Amer) BUN/Creatinine Ratio Glucose POC Glucose 137 H 218 H Calcium 06/01/19 06/01/19 06/01/19 05:16 07:35 11:37 WBC RBC Hgb Hct MCV MCH MCHC RDW Std Deviation RDW Coeff of Rico Plt Count MPV Sodium 144 Potassium 4.8 Chloride 117 H Carbon Dioxide 21 Anion Gap 6.0 BUN 89 H Creatinine 3.69 H Est Cr Clr Drug Dosing 14.9 Est GFR ( Amer) 14.2 Est GFR (Non-Af Amer) 12.3 BUN/Creatinine Ratio 24.1 H Glucose 126 H POC Glucose 138 H 177 H Calcium 8.6 PG Care Time/CCT Total # of Minutes Spent Total Time Spent with Patient: Total time spent is greater than 50% in coordination of care (as documented) at patient's floor/unit and/or counseling patient: (1) Anemia Anemia type: unspecified type Qualified Code(s): D64.9 - Anemia, unspecified
[2019-06-01] MEDS ORDERED: EPOETIN ALFA 10,000 UNITS/ML VIAL SQ SCH (16:00)
[2019-06-01] MEDS: IRON SUCROSE 200 MG in 0.9 % SODIUM CHLORIDE 100 ML IV SCH (16:37)
--- NOTE | 2019-06-01 17:59 | Hospitalist Progress Note ---
Date of Service June 01, 2019 Assessment & Plan (1) Acute respiratory failure with hypoxia: symptom has improved after diuresis on negative balance , SOB , orthopnea has resolved no complain of PAYNE while being OOB appreciate input from nephrology and cardiology cont diuresis lasix 40 mg po daily will be resumed on discharge is a 64yo F with a PMH of CKD IV, DM II, HTN, R foot osteomyelitis on IV dapto, anemia and other medical problems listed below who presents from [facility] rehab with acute hypoxic respiratory failure -hypoxia of 71% on room air, wheezing and cough with mild amount of productive sputum due to acute decompensation of CHF diastolic dysfunction with preserved LVEF symptom improved after diuresis ACUTE CHF WITH PRESERVED LVEF : 2D echo 05/09/19 : preserved EF of 55-60% , moderate concentric LVH with aortic valve sclerosis presented with vol overload , sob , hypoxia , elevated pro BNP lasix was kept on hold at [facility] rehab due to worsening of renal function cont on IV lasix pt's symptom improved after diuresis. cardiology consulted appreciate input (2) Foot osteomyelitis, right: Has PICC in place for IV Dapto with abx course completion as of Jun 25 -No longer requiring wound vac. Wound care consult placed (3) Chronic kidney disease (CKD), stage IV (severe): Baseline Cr ~ 3.5 but trended up to 4.2 -Follows with [facility] nephro -appreciate input pt is started on PO Hcoc3 for. metabolic acidosis due to uremia cont diuresis with Iv Lasix pt still able to make urine -may need HD in near future - (4) Anemia: due to anemia of chronic disease cont to monitor may need epo or venofer if hb continues to decline , will follow recommendation from Nephrology (5) Type 2 diabetes mellitus: A1c of 8 in Apr 2019 -Hold home agents -Basal/bolus insulin per protocol while in-patient -BSG HS (6) Hypertension: Continue amlodipine DVT Ppx: SQ heparin Code status: FULL per discussion with patient PCP: Bruce Brosnon Dispo: Subjective pt reports of feeling much better today SOB has improved , no orthopnea no cough or fever or chills Review of Systems Review of Systems: At least ten systems reviewed and negative except as noted in the HPI. Physical Exam Constitutional: WD/WN, vitals as above no acute distress Eyes: PERRL, conjunctivae normal, anicteric sclerae ENMT: external ear and nose normal, oropharynx normal Ears: no hearing impairment Neck: trachea midline Respiratory: normal respiratory effort; no cough Auscultation: + crackles Cardiovascular: RRR, no murmur, no edema Gastrointestinal (Abdomen): normal bowel sounds, soft, nontender, no hepatosplenomegaly Percussion/Palpation: abdomen nontender, no guarding and abdomen not rigid Musculoskeletal: Extremities: extremities normal to inspection Gait: normal gait Skin: no rashes, warm and dry Neurologic: moves all extremities and awake Psychiatric: A+Ox3, euthymic affect Results & Data Vital Signs (Past 12 Hours) Vital Signs Temp Pulse Pulse Pulse Resp BP Pulse Ox 06/01/19 17:50 71 18 153/77 H 97 06/01/19 17:40 78 18 154/102 H 94 06/01/19 15:49 79 16 98 06/01/19 15:37 37.0 C 74 18 155/74 H 96 06/01/19 14:54 06/01/19 11:25 73 18 94 06/01/19 10:52 37.0 C 72 18 161/75 H 94 06/01/19 08:10 36.7 C 65 18 147/83 H 96 06/01/19 08:00 70 06/01/19 07:21 61 18 95 Pulse Ox 06/01/19 17:50 06/01/19 17:40 06/01/19 15:49 06/01/19 15:37 06/01/19 14:54 87 L 06/01/19 11:25 06/01/19 10:52 06/01/19 08:10 06/01/19 08:00 06/01/19 07:21 (1) Anemia Anemia type: unspecified type Qualified Code(s): D64.9 - Anemia, unspecified (2) Hypertension Hypertension type: essential hypertension Qualified Code(s): I10 - Essential (primary) hypertension
[2019-06-02] MEDS: SODIUM CHLORIDE 0.9% 2.5 ML FLUSH IV SCH ×3 (03:13→17:05)
[2019-06-02] MEDS: HEPARIN SOD 5,000 UNIT/0.5 ML VIAL SQ SCH ×3 (05:27→21:11)
[2019-06-02 06:40] LABS: Creatinine Clr Calc Pharmacy 15.6 ml/min; Est GFR (African American) 15.4; Est GFR (Non-African American) 13.3
[2019-06-02] MEDS: ALBUT/IPRATROP 3MG/0.5MG NEB 3 ML VIAL NEB SCH (07:04)
[2019-06-02 07:23] LABS: BUN Creatinine Ratio 26.3 (10-20); Calcium 8.8 mg/dl (8.5-10.1); Creatinine Clr Calc Pharmacy 15.5 ml/min; Est GFR (African American) 15.3; Est GFR (Non-African American) 13.2; Potassium 5.2 mmol/L (3.5-5.1)
[2019-06-02] MEDS: INSULIN ASPART 100 UNITS/ML 3 ML PEN SC SCH ×4 (08:39→21:12)
[2019-06-02] MEDS: PANTOprazole 40 MG TAB PO SCH ×2 (08:41→21:10)
[2019-06-02] MEDS: AMLODIPINE BESYLATE 5 MG TAB PO SCH (08:41)
[2019-06-02] MEDS: ASPIRIN 81 MG ECTAB PO SCH (08:41)
[2019-06-02] MEDS: LACTOBACILLUS ACIDOPHILUS (FLORANEX) TAB PO SCH ×4 (08:42→21:09)
[2019-06-02] MEDS: DOCUSATE SODIUM 100 MG CAP PO SCH ×2 (08:42→21:09)
[2019-06-02] MEDS: FERROUS SULFATE 325 MG TAB PO SCH ×2 (08:42→17:07)
[2019-06-02] MEDS: carvediloL 6.25 MG TAB PO SCH ×2 (08:42→17:03)
[2019-06-02] MEDS: FUROSEMIDE 40 MG TAB PO SCH (08:42)
[2019-06-02] MEDS: SODIUM BICARBONATE 650 MG TAB PO SCH ×2 (08:42→21:09)
[2019-06-02] MEDS: CHOLECALCIFEROL 1,000 UNITS TAB PO SCH (08:42)
[2019-06-02] MEDS: IRON SUCROSE 200 MG in 0.9 % SODIUM CHLORIDE 100 ML IV SCH (08:51)
[2019-06-02] MEDS ORDERED: ALBUT/IPRATROP 3MG/0.5MG NEB 3 ML VIAL NEB PRN (09:28)
--- NOTE | 2019-06-02 10:58 | XRay Report ---
XR chest 2V PA/lateral CLINICAL HISTORY: shortness of breath COMPARISON STUDY: 05/31/2019 FINDINGS: Left-sided PICC catheter remains unchanged in position. The heart is mildly enlarged. There are multifocal pulmonary airspace opacities. There are suspected trace pleural effusions. IMPRESSION: Persistent bilateral multifocal airspace opacities ACT 112: Negative or not required by law. Electronically signed by: Marco Nieto M.D. 06/02/2019 10:57 AM
--- NOTE | 2019-06-02 12:33 | Nephrology Progress Note ---
Date of Service June 02, 2019 Assessment & Plan (1) Stage 5 chronic kidney disease not on chronic dialysis: CKD IV-V at baseline, admitted with hypoxic respiratory failure associated with pulmonary edema. Renal function relatively stable. Associated electrolyte abnormalities have been reasonably managed medically. There is no emergent indication for dialysis at this time. Jeri is a reasonable negative fluid balance with furosemide 40 mg daily. Urine output is acceptable. She is to lerating oral NaHCO3 for acidosis. We discussed the advanced nature of her kidney dysfunction today. Continue to document I/O's. Repeat metabolic profile tomorrow AM. Renal diet. Medications are appropriately dosed for kidney function. (2) Hyperkalemia: -- Potassium restriction reenforced. Continue loop diuretics. Recheck tomorrow AM. (3) Metabolic acidosis: -- Continue oral NaHCO3 as Rx'd. (4) Type 2 diabetes mellitus: (5) Anemia: -- Tsat <20. Will start venofer 200 mg daily today. Epogen 35702 units x 1 dose will be provided -- Stool for occult blood has been requested. (6) Multifocal pneumonia: -- Repeat CXR obtained this AM. Lung sounds consistent with pulmonary edema. Adequately negative fluid balance. No fevers or chills. WBC not elevated. Cause of BL airspace disease not completely clear. I will discuss with Dr. Knight. Subjective No acute events overnight. Jeri feels well today. She is breathing comfortably. She denies fevers or chills. She denies chest pain. No urinary complaints. Review of Systems Review of Systems: All systems reviewed & are unremarkable except as noted in HPI & below Physical Exam Constitutional: well developed and + thin; no acute distress Eyes: + conjunctival abnormality (pallor) and + anicteric sclerae ENMT: Mouth: no oral mucosal abnormality and oral mucous membranes not dry Neck: normal visual inspection, trachea midline and + thick neck Respiratory: normal respiratory effort Auscultation: + rales Cardiovascular: Rate/Rhythm: regular rate Heart Sounds: normal S1 and normal S2 Extremities: no edema Gastrointestinal (Abdomen): Percussion/Palpation: abdomen soft; abdomen nontender Musculoskeletal: Extremities: no cyanosis and no clubbing Skin: normal turgor and + pallor Neurologic: Motor/Sensory: no tremor and no asterixis Psychiatric: Orientation: alert and oriented x 3 Results & Data Vital Signs (Past 12 Hours) Vital Signs Temp Pulse Pulse Resp BP BP Pulse Ox 06/02/19 11:38 36.6 C 62 20 146/74 H 96 06/02/19 08:00 74 06/02/19 07:04 71 16 95 06/02/19 03:18 94 06/02/19 03:16 37 C 77 20 131/69 75 L Laboratory Results Laboratory Results - last 24 hr 06/01/19 06/01/19 06/02/19 16:33 20:25 05:22 Sodium Potassium Chloride Carbon Dioxide Anion Gap BUN Creatinine 3.46 H Est Cr Clr Drug Dosing 15.6 Est GFR ( Amer) 15.4 Est GFR (Non-Af Amer) 13.3 BUN/Creatinine Ratio Glucose POC Glucose 233 H 209 H Calcium Total Creatine Kinase Stool Occult Bld Scrn 06/02/19 06/02/19 06/02/19 05:23 07:07 09:00 Sodium 144 Potassium 5.2 H Chloride 116 H Carbon Dioxide 22 Anion Gap 6.0 BUN 91 H Creatinine 3.47 H Est Cr Clr Drug Dosing 15.5 Est GFR ( Amer) 15.3 Est GFR (Non-Af Amer) 13.2 BUN/Creatinine Ratio 26.3 H Glucose 145 H POC Glucose 152 H Calcium 8.8 Total Creatine Kinase Stool Occult Bld Scrn Negative 06/02/19 06/02/19 09:38 11:04 Sodium Potassium Chloride Carbon Dioxide Anion Gap BUN Creatinine Est Cr Clr Drug Dosing Est GFR ( Amer) Est GFR (Non-Af Amer) BUN/Creatinine Ratio Glucose POC Glucose 182 H Calcium Total Creatine Kinase 170 Stool Occult Bld Scrn PG Care Time/CCT Total # of Minutes Spent Total Time Spent with Patient: Total time spent is greater than 50% in coordination of care (as documented) at patient's floor/unit and/or counseling patient: (1) Anemia Anemia type: unspecified type Qualified Code(s): D64.9 - Anemia, unspecified
[2019-06-02] MEDS: cefTRIAXone SODIUM 1,000 MG in DEXTROSE 5% 50 ML IV SCH (13:45)
[2019-06-02] MEDS: DOXYCYCLINE HYCLATE 100 MG CAP PO SCH ×2 (14:37→21:09)
--- NOTE | 2019-06-02 14:56 | Hospitalist Progress Note ---
Date of Service June 02, 2019 Assessment & Plan (1) Acute respiratory failure with hypoxia: symptom has improved after diuresis /bradycardia status appears to be at baseline on negative balance , SOB , orthopnea has resolved no complain of PAYNE while being OOB appreciate input from nephrology and cardiology Given IV Lasix lasix 40 mg po daily will be resumed on discharge is a 64yo F with a PMH of CKD IV, DM II, HTN, R foot osteomyelitis on IV dapto, anemia and other medical problems listed below who presents from [facility] rehab with acute hypoxic respiratory failure -hypoxia of 71% on room air, wheezing and cough with mild amount of productive sputum Possible due to acute decompensation of CHF diastolic dysfunction with preserved LVEF Patient continues to have ongoing respiratory symptoms even after adequate diuresis Repeat chest x-ray ordered today, shows unchanged interstitial infiltrate versus bilateral pulmonary congestion Patient remains in negative volume status May need to consider use eosinophilic pneumonitis for IV daptomycin therapy We will hold daptomycin for next dose Check CBC with differential in a.m. lab to assess for eosinophilia ACUTE CHF WITH PRESERVED LVEF : 2D echo 05/09/19 : preserved EF of 55-60% , moderate concentric LVH with aortic valve sclerosis presented with vol overload , sob , hypoxia , elevated pro BNP lasix was kept on hold at [facility] rehab due to worsening of renal function Patient treated with IV Lasix with adequate diuresis, Audiology consulted appreciate input (2) Foot osteomyelitis, right: Has PICC in place for IV Dapto with abx course to be completion as of Jun 4th Been ongoing interstitial infiltrates noted in chest x-ray, will hold off daptomycin for possible eosinophilic pneumonitis which can be caused by antibiotic (3) Chronic kidney disease (CKD), stage IV (severe): Baseline Cr ~ 3.5 but trended up to 4.2 -Follows with [facility] nephro -appreciate input pt is started on PO Hcoc3 for. metabolic acidosis due to uremia cont diuresis with Iv Lasix pt still able to make urine /volume status remains stable during this admission -may need HD in near future - (4) Anemia: due to anemia of chronic disease cont to monitor may need epo or venofer if hb continues to decline , will follow recommendation from Nephrology (5) Type 2 diabetes mellitus: A1c of 8 in Apr 2019 -Hold home agents -Basal/bolus insulin per protocol while in-patient -BSG AC HS (6) Hypertension: Continue amlodipine DVT Ppx: SQ heparin Code status: FULL per discussion with patient PCP: Bruce Bronson Dispo: Recently at [facility] for rehab, was supposed to be discharged home prior to getting admitted to hospital for hypoxemic respiratory failure Order for PT OT She is interested to return home with home health home PT from hospital Subjective No complaint of shortness of breath or orthopnea, no fever chills, still have nonproductive cough Generalized weakness noted Review of Systems Review of Systems: At least ten systems reviewed and negative except as noted in the HPI. Generalized weakness Psychiatric: + depression Physical Exam Constitutional: WD/WN, vitals as above no acute distress Eyes: PERRL, conjunctivae normal, anicteric sclerae ENMT: external ear and nose normal, oropharynx normal Ears: no hearing impairment Neck: trachea midline Respiratory: normal respiratory effort; no cough Auscultation: + crackles Cardiovascular: RRR, no murmur, no edema Gastrointestinal (Abdomen): normal bowel sounds, soft, nontender, no hepatosplenomegaly Percussion/Palpation: abdomen nontender, no guarding and abdomen not rigid Musculoskeletal: Extremities: extremities normal to inspection Gait: normal gait Skin: no rashes, warm and dry Neurologic: moves all extremities and awake Psychiatric: A+Ox3, euthymic affect Results & Data Vital Signs (Past 12 Hours) Vital Signs Temp Pulse Pulse Resp BP BP Pulse Ox 06/02/19 11:38 36.6 C 62 20 146/74 H 96 06/02/19 08:00 74 06/02/19 07:04 71 16 95 06/02/19 03:18 94 06/02/19 03:16 37 C 77 20 131/69 75 L (1) Anemia Anemia type: unspecified type Qualified Code(s): D64.9 - Anemia, unspecified (2) Hypertension Hypertension type: essential hypertension Qualified Code(s): I10 - Essential (primary) hypertension
[2019-06-03] MEDS: SODIUM CHLORIDE 0.9% 2.5 ML FLUSH IV SCH ×3 (03:28→17:39)
[2019-06-03] MEDS: HEPARIN SOD 5,000 UNIT/0.5 ML VIAL SQ SCH ×3 (05:26→21:52)
[2019-06-03 06:17] LABS: Hematocrit (blood only) 24.4 % (37-47); Hemoglobin 7.9 g/dL (12.0-16.0); Mean Corpuscular Hemoglobin 30.2 pg (25-34); Mean Corpuscular Hgb Conc 32.4 g/dL (32-36); Mean Corpuscular Volume 93.1 fL (80-100); Mean Platelet Volume 9.9 fL (7.4-10.4); Platelet Count 227 K/uL (130-400); RDW Coefficient of Variation 13.4 % (11.5-14.5); RDW Standard Deviation 45.7 fL (36.4-46.3); Red Blood Count 2.62 M/uL (4.2-5.4); White Blood Count 7.33 K/uL (4.8-10.8)
[2019-06-03 06:38] LABS: Basophils # (auto) 0.04 K/uL (0-0.2); Basophils % (auto) 0.5 %; Eosinophils # (auto) 0.56 K/uL (0-0.5); Eosinophils % (auto) 7.6 %; Immature Granulocytes # (auto) 0.08 K/uL (0.00-0.02); Immature Granulocytes % (auto) 1.1 %; Lymphocytes # (auto) 1.12 K/uL (1.2-3.4); Lymphocytes % (auto) 15.3 %; Monocytes # (auto) 0.71 K/uL (0.11-0.59); Monocytes % (auto) 9.7 %; Neutrophils # (auto) 4.82 K/uL (1.4-6.5); Neutrophils % (auto) 65.8 %; RBC Morphology Unremarkable
[2019-06-03 06:49] LABS: BUN Creatinine Ratio 24.6 (10-20); Calcium 8.9 mg/dl (8.5-10.1); Creatinine Clr Calc Pharmacy 15.1 ml/min; Est GFR (Non-African American) 12.9; Potassium 4.7 mmol/L (3.5-5.1)
[2019-06-03] MEDS: carvediloL 6.25 MG TAB PO SCH ×2 (08:13→17:37)
[2019-06-03] MEDS: AMLODIPINE BESYLATE 5 MG TAB PO SCH (08:13)
[2019-06-03] MEDS: DOCUSATE SODIUM 100 MG CAP PO SCH ×2 (08:13→20:14)
[2019-06-03] MEDS: ASPIRIN 81 MG ECTAB PO SCH (08:13)
[2019-06-03] MEDS: DOXYCYCLINE HYCLATE 100 MG CAP PO SCH ×2 (08:13→20:12)
[2019-06-03] MEDS: CHOLECALCIFEROL 1,000 UNITS TAB PO SCH (08:13)
[2019-06-03] MEDS: FUROSEMIDE 40 MG TAB PO SCH (08:14)
[2019-06-03] MEDS: PANTOprazole 40 MG TAB PO SCH ×2 (08:14→20:12)
[2019-06-03] MEDS: SODIUM BICARBONATE 650 MG TAB PO SCH ×2 (08:14→20:14)
[2019-06-03] MEDS: LACTOBACILLUS ACIDOPHILUS (FLORANEX) TAB PO SCH ×4 (08:14→20:14)
[2019-06-03] MEDS: FERROUS SULFATE 325 MG TAB PO SCH ×2 (08:15→17:35)
[2019-06-03] MEDS: INSULIN ASPART 100 UNITS/ML 3 ML PEN SC SCH ×4 (08:17→21:52)
[2019-06-03] MEDS: IRON SUCROSE 200 MG in 0.9 % SODIUM CHLORIDE 100 ML IV SCH (09:33)
--- NOTE | 2019-06-03 11:53 | Nephrology Progress Note ---
Date of Service June 03, 2019 Assessment & Plan (1) Stage 5 chronic kidney disease not on chronic dialysis: CKD IV-V at baseline, admitted with hypoxic respiratory failure associated with pulmonary edema. Renal dysfunction advanced but function is stable. Associated electrolyte abnormalities have been reasonably managed medically. There is no emergent indication for dialysis at this time. Jeri is a reasonable negative fluid balance with furosemide 40 mg daily. Urine output is acceptable. She is tolerating oral NaHCO3 for acidosis. We discussed the advanced nature of her kidney dysfunction today. Renal diet. Medications are appropriately dosed for kidney function. I will continue to provide close prospective monitoring. This is to include outpatient follow up within 1 week of discharge. (2) Hyperkalemia: -- Potassium restriction enforced. Continue loop diuretics. (3) Metabolic acidosis: -- Continue oral NaHCO3 as Rx'd. (4) Type 2 diabetes mellitus: (5) Anemia: -- Tsat <20. Venofer 200 mg daily while inpatient. Epogen 56928 units x 1 dose provided yesterday. -- Stool for occult blood has been requested. (6) Multifocal pneumonia: -- Repeat CXR obtained yesterday. Subjective No acute events overnight. Jeri feels well today. She hopes to be discharged home. She is breathing comfortably. She denies any fevers or chills. No dyspnea or cough. Appetite is good. Review of Systems Review of Systems: All systems reviewed & are unremarkable except as noted in HPI & below Physical Exam Constitutional: well developed and + thin; no acute distress Eyes: + conjunctival abnormality (pallor) and + anicteric sclerae ENMT: Mouth: no oral mucosal abnormality and oral mucous membranes not dry Neck: normal visual inspection, trachea midline and + thick neck Respiratory: normal respiratory effort Auscultation: + rales Cardiovascular: Rate/Rhythm: regular rate Heart Sounds: normal S1 and normal S2 Extremities: no edema Gastrointestinal (Abdomen): Percussion/Palpation: abdomen soft; abdomen nontender Musculoskeletal: Extremities: no cyanosis and no clubbing Skin: normal turgor and + pallor Neurologic: Motor/Sensory: no tremor and no asterixis Psychiatric: Orientation: alert and oriented x 3 Results & Data Vital Signs (Past 12 Hours) Vital Signs Temp Pulse Pulse Pulse Resp BP BP 06/03/19 11:43 36.9 C 74 20 138/71 01/13/20 08:00 65 06/03/19 07:00 36.8 C 67 18 144/80 H 06/03/19 04:09 36.8 C 67 18 147/74 H Pulse Ox 06/03/19 11:43 98 06/03/19 08:00 06/03/19 07:00 97 06/03/19 04:09 96 Laboratory Results Laboratory Results - last 24 hr 06/02/19 06/02/19 06/03/19 16:33 20:51 05:23 WBC 7.33 RBC 2.62 L Hgb 7.9 L Hct 24.4 L MCV 93.1 MCH 30.2 MCHC 32.4 RDW Std Deviation 45.7 RDW Coeff of Rico 13.4 Plt Count 227 MPV 9.9 Immature Gran % (Auto) 1.1 Neut % (Auto) 65.8 Lymph % (Auto) 15.3 Hoke % (Auto) 9.7 Eos % (Auto) 7.6 Baso % (Auto) 0.5 Immature Gran # (Auto) 0.08 H Neut # (Auto) 4.82 Lymph # (Auto) 1.12 L Hoke # (Auto) 0.71 H Eos # (Auto) 0.56 H Baso # (Auto) 0.04 RBC Morphology Unremarkable Sodium Potassium Chloride Carbon Dioxide Anion Gap BUN Creatinine Est Cr Clr Drug Dosing Est GFR ( Amer) Est GFR (Non-Af Amer) BUN/Creatinine Ratio Glucose POC Glucose 166 H 168 H Calcium 06/03/19 06/03/19 06/03/19 05:23 07:43 11:22 WBC RBC Hgb Hct MCV MCH MCHC RDW Std Deviation RDW Coeff of Rico Plt Count MPV Immature Gran % (Auto) Neut % (Auto) Lymph % (Auto) Hoke % (Auto) Eos % (Auto) Baso % (Auto) Immature Gran # (Auto) Neut # (Auto) Lymph # (Auto) Hoke # (Auto) Eos # (Auto) Baso # (Auto) RBC Morphology Sodium 144 Potassium 4.7 Chloride 114 H Carbon Dioxide 23 Anion Gap 7.0 BUN 87 H Creatinine 3.54 H Est Cr Clr Drug Dosing 15.1 Est GFR ( Amer) 15.0 Est GFR (Non-Af Amer) 12.9 BUN/Creatinine Ratio 24.6 H Glucose 119 H POC Glucose 126 H 185 H Calcium 8.9 PG Care Time/CCT Total # of Minutes Spent Total Time Spent with Patient: Total time spent is greater than 50% in coordination of care (as documented) at patient's floor/unit and/or counseling patient: (1) Anemia Anemia type: unspecified type Qualified Code(s): D64.9 - Anemia, unspecified
[2019-06-03] MEDS: cefTRIAXone SODIUM 1,000 MG in DEXTROSE 5% 50 ML IV SCH (12:13)
--- NOTE | 2019-06-03 18:44 | Hospitalist Progress Note ---
Date of Service June 03, 2019 Assessment & Plan (1) Acute respiratory failure with hypoxia: symptom has improved after diuresis on negative balance , SOB , orthopnea has resolved no complain of PAYNE while being OOB appreciate input from nephrology and cardiology Was treated with IV Lasix lasix 40 mg po daily will be resumed on discharge is a 64yo F with a PMH of CKD IV, DM II, HTN, R foot osteomyelitis on IV dapto, anemia and other medical problems listed below who presents from [facility] rehab with acute hypoxic respiratory failure -hypoxia of 71% on room air, wheezing and cough with mild amount of productive sputum Possible due to acute decompensation of CHF diastolic dysfunction with preserved LVEF Patient continues to have ongoing respiratory symptoms even after adequate diuresis Repeat chest x-ray ordered today, shows unchanged interstitial infiltrate versus bilateral pulmonary congestion Patient remains in negative volume status May need to consider use eosinophilic pneumonitis for IV daptomycin therapy Daptomycin has been kept on hold, patient reports improvement of shortness of breath and hypoxia Check CBC with differential in a.m. lab to assess for eosinophilia ACUTE CHF WITH PRESERVED LVEF : 2D echo 05/09/19 : preserved EF of 55-60% , moderate concentric LVH with aortic valve sclerosis presented with vol overload , sob , hypoxia , elevated pro BNP lasix was kept on hold at [facility] rehab due to worsening of renal function Patient treated with IV Lasix with adequate diuresis, Cardiology consulted appreciate input (2) Foot osteomyelitis, right: Has PICC in place for IV Dapto with abx course to be completion as of Jun 4th Been ongoing interstitial infiltrates noted in chest x-ray, will hold off daptomycin for possible eosinophilic pneumonitis which can be caused by antibiotic (3) Chronic kidney disease (CKD), stage IV (severe): Baseline Cr ~ 3.5 but trended up to 4.2 -Follows with [facility] nephro -appreciate input pt is started on PO Hcoc3 for. metabolic acidosis due to uremia cont diuresis with Iv Lasix pt still able to make urine /volume status remains stable during this admission -may need HD in near future - (4) Anemia: due to anemia of chronic disease cont to monitor may need epo or venofer if hb continues to decline , will follow recommendation from Nephrology (5) Type 2 diabetes mellitus: A1c of 8 in Apr 2019 -Hold home agents -Basal/bolus insulin per protocol while in-patient -BSG AC HS (6) Hypertension: Continue amlodipine DVT Ppx: SQ heparin Code status: FULL per discussion with patient PCP: Bruce Bronson Dispo: Recently at [facility] for rehab, was supposed to be discharged home prior to getting admitted to hospital for hypoxemic respiratory failure Order for PT OT She is interested to return home with home health home PT from hospital Daptomycin discontinued for possible allergic reaction, will need to consider for alternate antibiotics, vancomycin after discharge Subjective Patient feels better, Cough, shortness of breath has improved, remains in room air Review of Systems Review of Systems: At least ten systems reviewed and negative except as noted in the HPI. Generalized weakness Psychiatric: + depression Physical Exam Constitutional: WD/WN, vitals as above no acute distress Eyes: PERRL, conjunctivae normal, anicteric sclerae ENMT: external ear and nose normal, oropharynx normal Ears: no hearing impairment Neck: trachea midline Respiratory: normal respiratory effort; no cough Auscultation: + crackles Cardiovascular: RRR, no murmur, no edema Gastrointestinal (Abdomen): normal bowel sounds, soft, nontender, no hepatosplenomegaly Percussion/Palpation: abdomen nontender, no guarding and abdomen not rigid Musculoskeletal: Extremities: extremities normal to inspection Gait: normal gait Skin: no rashes, warm and dry Neurologic: moves all extremities and awake Psychiatric: A+Ox3, euthymic affect Results & Data Vital Signs (Past 12 Hours) Vital Signs Temp Pulse Pulse Resp BP Pulse Ox 06/03/19 15:33 63 06/03/19 15:02 36.6 C 68 18 151/71 H 92 06/03/19 11:43 36.9 C 74 20 138/71 98 06/03/19 08:00 65 06/03/19 07:00 36.8 C 67 18 144/80 H 97 (1) Anemia Anemia type: unspecified type Qualified Code(s): D64.9 - Anemia, unspecified (2) Hypertension Hypertension type: essential hypertension Qualified Code(s): I10 - Essential (primary) hypertension
[2019-06-04] MEDS: SODIUM CHLORIDE 0.9% 2.5 ML FLUSH IV SCH ×3 (02:23→16:06)
[2019-06-04] MEDS: HEPARIN SOD 5,000 UNIT/0.5 ML VIAL SQ SCH ×2 (05:45→13:07)
[2019-06-04 06:37] LABS: BUN Creatinine Ratio 24.2 (10-20); Calcium 8.7 mg/dl (8.5-10.1); Creatinine Clr Calc Pharmacy 15.6 ml/min; Est GFR (African American) 15.6; Est GFR (Non-African American) 13.5; Potassium 4.9 mmol/L (3.5-5.1)
[2019-06-04] MEDS: INSULIN ASPART 100 UNITS/ML 3 ML PEN SC SCH ×3 (08:27→16:32)
[2019-06-04] MEDS: CHOLECALCIFEROL 1,000 UNITS TAB PO SCH (08:28)
[2019-06-04] MEDS: LACTOBACILLUS ACIDOPHILUS (FLORANEX) TAB PO SCH ×3 (08:28→16:05)
[2019-06-04] MEDS: FUROSEMIDE 40 MG TAB PO SCH (08:29)
[2019-06-04] MEDS: FERROUS SULFATE 325 MG TAB PO SCH (08:29)
[2019-06-04] MEDS: PANTOprazole 40 MG TAB PO SCH (08:29)
[2019-06-04] MEDS: ASPIRIN 81 MG ECTAB PO SCH (08:29)
[2019-06-04] MEDS: carvediloL 6.25 MG TAB PO SCH ×2 (08:29→16:05)
[2019-06-04] MEDS: DOXYCYCLINE HYCLATE 100 MG CAP PO SCH (08:29)
[2019-06-04] MEDS: AMLODIPINE BESYLATE 5 MG TAB PO SCH (08:29)
[2019-06-04] MEDS: SODIUM BICARBONATE 650 MG TAB PO SCH (09:46)
[2019-06-04] MEDS: IRON SUCROSE 200 MG in 0.9 % SODIUM CHLORIDE 100 ML IV SCH (09:46)
[2019-06-04] MEDS: DOCUSATE SODIUM 100 MG CAP PO SCH ×2 (09:46→16:07)
--- NOTE | 2019-06-04 11:06 | CT Scan Report ---
CT chest wo con CLINICAL HISTORY: 64 years-old Female presenting with SOB /pneumonitis. TECHNIQUE: Multidetector CT imaging of the chest was performed without the use of intravenous contras t. IV contrast: None. One or more dose lowering techniques were used consistent with the principles o f ALARA (as low as reasonably achievable), including automatic exposure control, mA or kV adjustment to individual patient size, and/or use of iterative reconstruction. COMPARISON: Chest x-ray from 06/02/2019. CT DOSE (mGy.cm): The estimated cumulative dose is 394.12 mGy.cm. FINDINGS: [employer] topogram: Left upper extremity PICC terminates in the lower SVC. Soft tissues: Normal thyroid and thoracic inlet. No axillary or supraclavicular lymphadenopathy. Scat tered subcentimeter mediastinal lymph nodes, nonspecific and possibly reactive. Evaluation of the hil a limited without intravenous contrast. Mild atherosclerosis of the aorta. Aortic valve calcification . Borderline enlargement of the heart. Small bilateral simple appearing pleural effusions. Upper abdo men normal. Lungs and airways: No pneumothorax. Central airways patent. Pulmonary arteries enlarged relative to a djacent bronchi. No interlobular septal thickening at the apices and lung bases. Patchy groundglass a nd nodular infiltrates predominantly in a peribronchial vascular distribution affecting all 5 lobes. There is also more focal apical peripheral groundglass and solid patchy opacities. Some of the peribr onchovascular nodular infiltrates in the lower lobes have a halo of groundglass. Musculoskeletal: Normal osseous structures. IMPRESSION: 1. Multifocal mild peribronchovascular predominant nodular infiltrates concerning for multifocal pne umonia. The morphology could raise concern for a fungal infection, aspergillus not excluded. Please c orrelate for possible underlying immunosuppression. 2. Volume overload, congestive change, and trace pulmonary edema. 3. Bilateral small pleural effusions. ACT 112: Negative or not required by law. Electronically signed by: Enio Griffiths M.D. 06/04/2019 11:05 AM
--- NOTE | 2019-06-04 12:24 | Infectious Disease Progress Nt ---
Date of Service June 04, 2019 Assessment & Plan (1) Foot osteomyelitis, right: can be followed off of abx, will plan to follow post d/c. Subjective discussed with primary sevice. pt has clinical improvement in resp distress, she improved after diuresis, dapto held and concern that dapto may have contributed to resp distress. she is due to stop abx next week. she is clinically stable and afebrile. wbc 7.3, culture negative. Results & Data Vital Signs (Past 12 Hours) Vital Signs Temp Pulse Pulse Resp BP Pulse Ox 06/04/19 11:30 36.4 C L 72 20 139/71 97 06/04/19 08:00 64 06/04/19 07:00 36.3 C L 64 18 147/62 H 96 06/04/19 03:59 36.7 C 63 18 135/74 96 Laboratory Results Microbiology 05/30/19 14:30 Blood Aerobic Blood Culture - Preliminary No growth in Aerobic bottle after 48 hours. 05/30/19 14:30 Blood Anaerobic Blood Culture - Preliminary No growth in Anaerobic bottle after 48 hours. 05/30/19 14:25 Blood Aerobic Blood Culture - Preliminary No growth in Aerobic bottle after 48 hours. 05/30/19 14:25 Blood Anaerobic Blood Culture - Preliminary No growth in Anaerobic bottle after 48 hours. 05/30/19 16:20 Urine,Clean Catch Urine Culture - Final No growth - less than 1,000 colonies/mL. PG Care Time/CCT Total # of Minutes Spent Total Time Spent with Patient: Total time spent is greater than 50% in coordination of care (as documented) at patient's floor/unit and/or counseling patient:
[2019-06-04] MEDS: cefTRIAXone SODIUM 1,000 MG in DEXTROSE 5% 50 ML IV SCH (12:30)
--- NOTE | 2019-06-04 12:51 | Hospitalist Progress Note ---
Date of Service June 04, 2019 Subjective Attending addendum: Patient's respiratory status significantly improved after discontinuation of daptomycin Discussed with ID Dr. Cuadra, feels okay to discontinue daptomycin. Outpatient follow-up with ID in 2-3 weeks Patient should be able to get discharged home to today DC PICC line prior to discharge Lien Knight MD Results & Data Vital Signs (Past 12 Hours) Vital Signs Temp Pulse Pulse Resp BP Pulse Ox 06/04/19 11:30 36.4 C L 72 20 139/71 97 06/04/19 08:00 64 06/04/19 07:00 36.3 C L 64 18 147/62 H 96 06/04/19 03:59 36.7 C 63 18 135/74 96
--- NOTE | 2019-06-04 17:16 | Discharge Summary ---
Date of Service June 04, 2019 Admission HPI Per Admitting Provider This is a 64yo F with a PMH of CKD IV, DM II, HTN, R foot osteomyelitis on IV dapto, anemia and other medical problems listed below who presents from [facility] rehab with acute hypoxic respiratory failure starting early this morning around 0200. Patient woke up unable to catch her breath even when sitting up straight. Endorses wheezing and cough with mild amount of productive sputum. Denies any fever, chills, hemoptysis, chest pain or palpitations. Was found to be hypoxic at 71% on room air and does not require O2 at baseline. Was given 40 mg of IV Lasix around 1130am as well as DuoNeb treatment but did not improve, so was sent to ED for further evaluation. Patient has a complicated recent hospital course starting with admission to [facility] 05/12- for R diabetic foot ulcer with osteomyelitis and started on IV Dapto and sent to [facility]. Was readmitted on 05/18 after being found to have symptomatic anemia of 7, requiring 2u prbcs. During that admission, had hypoxia due to what appeared to be pulmonary edema on CXR. Underwent 2D echo on 05/09/19, which revealed preserved EF of 55-60%, moderate concentric LVH and aortic valve sclerosis. Was discharge back to [facility] on 05/21 and had progressively worsening kidney function with Cr peaking at 4.2 on 05/23/18 (baseline Cr ~ mid-3s), so patient's lasix dose of 40mg BID was decreased and then discontinued as of 05/25/18. Over the next 5 days, patient notes increased BLE edema but denied any SOB until late last evening. Currently, patient is saturating at 97% on 6 L oxygen mask. Has leukocytosis of 15.44, BNP of 6939, normal procalcitonin of 0.5, normal lactic acid and negative flu PCR. Chest x-ray with progressive bilateral pulmonary airspace opacities with main differential including multifocal pneumonia vs atypical appearance of pulmonary edema. Was given an additional 20mg IV Lasix in ED as well as started empirically on Cefepime. 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/stage V chronic kidney disease Discharge Exam Constitutional WD/WN, vitals as above no acute distress Eyes PERRL, conjunctivae normal, anicteric sclerae ENMT external ear and nose normal, oropharynx normal Ears: no hearing impairment Neck trachea midline Respiratory normal respiratory effort; no cough Auscultation: + crackles Cardiovascular RRR, no murmur, no edema Gastrointestinal (Abdomen) normal bowel sounds, soft, nontender, no hepatosplenomegaly Percussion/Palpation: abdomen nontender, no guarding and abdomen not rigid Musculoskeletal Extremities: extremities normal to inspection Gait: normal gait Skin no rashes, warm and dry Neurologic moves all extremities and awake Psychiatric A+Ox3, euthymic affect Discharge Data Allergies Allergy/AdvReac Type Severity Reaction Status Date / Time daptomycin AdvReac sob Verified 06/04/19 10:12 Consultations 05/30/19 15:20 ED Decision to Admit Stat 05/30/19 18:24 Consult Case Management - Discharge Planning Routine 05/31/19 08:00 Consult Cardiology Routine Consult Infectious Diseases Routine Consult Nephrology Routine Ordered Studies 06/04/19 10:10 CT chest wo con Routine Hospital Course (1) Acute respiratory failure with hypoxia: symptom has improved after diuresis on negative balance , SOB , orthopnea has resolved no complain of PAYNE while being OOB appreciate input from nephrology and cardiology Was treated with IV Lasix lasix 40 mg po daily resumed on discharge is a 64yo F with a PMH of CKD IV, DM II, HTN, R foot osteomyelitis on IV dapto, anemia and other medical problems listed below who presents from [facility] rehab with acute hypoxic respiratory failure -Admitted hypoxia of 71% on room air, wheezing and cough with mild amount of productive sputum Patient treated with IV Lasix for possible acute decompensation of CHF diastolic dysfunction with preserved LVEF Patient continues to have ongoing respiratory symptoms even after adequate diuresis Patient remains in negative volume status Concern for eosinophilic pneumonitis for IV daptomycin therapy Daptomycin has been kept on hold, Patient's respiratory status significantly improved after discontinuation of daptomycin Discussed with ID Dr. Cuadra, feels okay to discontinue daptomycin. No further IV antibiotic treatment needed Outpatient follow-up with ID in 2-3 weeks Patient should be able to get discharged home to today DC PICC line prior to discharge ACUTE CHF WITH PRESERVED LVEF : 2D echo 05/09/19 : preserved EF of 55-60% , moderate concentric LVH with aortic valve sclerosis presented with vol overload , sob , hypoxia , elevated pro BNP Symptom resolved after IV Lasix diuresis Patient is discharged on p.o. Lasix 40 mg daily Cardiology consulted appreciate input (2) Foot osteomyelitis, right: Has PICC in place for IV Dapto with abx course to be completion as of Jun 25 ongoing interstitial infiltrates noted in chest x-ray, daptomycin kept on hold for possible eosinophilic pneumonitis Respiratory status improved markedly after daptomycin discontinued Per infectious disease doctor no more IV antibiotic needed And will follow up with ID in 2-3 weeks PICC line discontinued (3) Chronic kidney disease (CKD), stage IV (severe): Baseline Cr ~ 3.5 but trended up to 4.2 -Follows with [facility] nephro -appreciate input pt is started on PO Hcoc3 for. metabolic acidosis due to uremia cont diuresis with Iv Lasix pt still able to make urine /volume status remains stable during this admission -may need HD in near future - (4) Anemia: due to anemia of chronic disease cont to monitor Given Epo /venofer Patient close follow-up with nephrology (5) Type 2 diabetes mellitus: A1c of 8 in Apr 2019 -Hold home agents -Basal/bolus insulin per protocol while in-patient -BSG AC HS (6) Hypertension: Continue amlodipine DVT Ppx: SQ heparin Code status: FULL per discussion with patient PCP: Bruce Bronson Dispo: Stable to be discharged home today Total Time Total Time Spent Total Time Spent (In Minutes): Approximately 45 minutes Total Time Includes: Examination of the Patient, Discharge Planning, Medication Reconciliation and 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 With Other Providers Discharge Plan Discharge Items Patient Disposition: Home - Home Health Services Reason For Visit: ACUTE RESP FAILURE,PNA,PULM EDEMA Discharge Diagnosis: Acute respiratory failure/shortness of breath/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/stage V chronic kidney disease Activity: Resume your previous activity Non-emergency contact: Primary Care Provider Call non-emergency contact if: you have any medication questions Follow-up/Referrals: Reinier Ambrocio DO [Physician] - (Office follow-up in 1 week, clinic will call with appointment) Alexandria Cuadra DO [Physician] - (In 2-3 weeks) Melissa Bronson DO [Primary Care Provider] - 06/11/19 10:55 am Diet: Carb Consistent or DM2 and Heart Healthy Ambulatory Orders: Basic Metabolic Panel (Routine) Timeframe: 1 Week Location: Determined by Patient Ordered By: Lien Knight Complete Blood Count no Diff (Routine) Timeframe: 1 Week Location: Determined by Patient Ordered By: Lien Vazquez Attending Provider Instructions: Follow-up with infectious disease Dr. Cuadra in 2-3 weeks Pending Studies at Discharge: Yes Studies:: Complete blood count/basic metabolic panel in 1 week Stand-Alone Forms: My [facility] Cold Futures, Smoking Cessation Medications and DC Order Prescriptions: New furosemide 40 mg Tablet 40 mg PO QAM 30 Days Qty: 30 RF: 3 sodium bicarbonate 650 mg Tablet 650 mg PO DAILY 30 Days Qty: 30 RF: 0 Continued cholecalciferol (vitamin D3) [Vitamin D3] 2,000 unit Capsule 4,000 unit PO DAILY RF: 0 aspirin [Ecotrin Low Strength] 81 mg tablet,delayed release (DR/EC) 81 mg PO DAILY RF: 0 Lactobacillus acidoph-L.bulgar [Floranex] 1 million cell Tablet 4 tab PO QIDM 30 Days Qty: 480 RF: 0 Humulin R Regular U-100 Insuln 100 unit/mL Solution 1 sliding scale dose SUBCUT USEASDIRECTD RF: 0 docusate sodium 100 mg Capsule 100 mg PO BID RF: 0 carvedilol 6.25 mg tablet 6.25 mg PO BIDM RF: 0 sennosides-docusate sodium [Senokot-S] 8.6-50 mg Tablet 1 tab-cap PO DAILY PRN (Reason: Constipation) RF: 0 bisacodyl 10 mg Suppository 10 mg WA DAILY PRN (Reason: Constipation) RF: 0 Fleet Enema 19-7 gram/118 mL Enema 118 ml WA DAILY PRN (Reason: Constipation) RF: 0 polyethylene glycol 3350 [Miralax] 17 gram/dose Powder 17 g PO DAILY PRN (Reason: Constipation) RF: 0 ferrous sulfate 325 mg (65 mg iron) Tablet,Delayed Release (Dr/Ec) 325 mg PO BIDM 30 Days Qty: 60 RF: 0 Basaglar KwikPen U-100 Insulin 100 unit/mL (3 mL) insulin pen 30 unit SUBCUT HS RF: 0 amlodipine 10 mg tablet 10 mg PO DAILY RF: 0 pantoprazole [Protonix] 40 mg Tablet,Delayed Release (Dr/Ec) 40 mg PO BID RF: 0 Discontinued daptomycin 350 mg recon soln 325 mg IV Q48H Qty: 20 RF: 0 sodium chloride 0.9 % (flush) [Normal Saline Flush] Syringe 5 ml IV Q8H RF: 0 Discharge Orders: Discharge Order (Routine); Ordered 06/04/19 Ordered By: Lien Miranda/Other Patient Handouts: COPD Dx Admission Data Admit Date/Time: 05/30/19 16:33 Attending Provider: Lien Knight Admit Provider: Edson Montana Primary Care Provider: Melissa Bronson Other Providers: Edson Montana ; Alexandria Cuadra ; Delroy Arthur ; Mary Penn ; [facility] Other Interventions: Discharge Summary Assessment (RN) Last Done: 06/04/19 15:39
--- NOTE | 2019-06-04 19:02 | Nephrology Progress Note ---
Date of Service June 04, 2019 Assessment & Plan (1) Stage 5 chronic kidney disease not on chronic dialysis: CKD IV-V at baseline, admitted with hypoxic respiratory failure associated with pulmonary edema. Renal dysfunction advanced but stable. Associated electrolyte abnormalities have been managed medically. There is no emergent indication for dialysis at this time. Continue furosemide 40 mg daily. Continue oral NaHCO3 for acidosis. Renal diet. Medications are appropriately dosed for kidney function. Outpatient follow up within 1 week of discharge will be arranged. (2) Hyperkalemia: -- Potassium restriction enforced. Continue loop diuretics. (3) Metabolic acidosis: -- Continue oral NaHCO3 as Rx'd. (4) Type 2 diabetes mellitus: (5) Anemia: -- Tsat <20. Venofer 200 mg daily provided while inpatient. Epogen 25633 units x 1 dose provided 06/02. -- Stool for occult blood was negative (6) Multifocal pneumonia: -- Pulmonary findings improved with discontinuation of daptomycin suggestive of possible associated pneumonititis Subjective No acute events overnight. Jeri was seen and evaluated this morning prior to discharge. I discussed the plan of care with Dr. Knight. Outpatient follow up cooridinated. Review of Systems Review of Systems: All systems reviewed & are unremarkable except as noted in HPI & below Physical Exam Constitutional: well developed and + thin; no acute distress Eyes: + conjunctival abnormality (pallor) and + anicteric sclerae ENMT: Mouth: no oral mucosal abnormality and oral mucous membranes not dry Neck: normal visual inspection, trachea midline and + thick neck Respiratory: normal respiratory effort Auscultation: + rales Cardiovascular: Rate/Rhythm: regular rate Heart Sounds: normal S1 and normal S2 Extremities: no edema Gastrointestinal (Abdomen): Percussion/Palpation: abdomen soft; abdomen nontender Musculoskeletal: Extremities: no cyanosis and no clubbing Skin: normal turgor and + pallor Neurologic: Motor/Sensory: no tremor and no asterixis Psychiatric: Orientation: alert and oriented x 3 Results & Data Vital Signs (Past 12 Hours) Vital Signs Temp Pulse Pulse Resp BP Pulse Ox 06/04/19 15:56 36.5 C 72 20 157/68 H 92 06/04/19 15:39 36.4 C L 72 20 139/71 97 06/04/19 15:36 65 06/04/19 11:30 36.4 C L 72 20 139/71 97 06/04/19 08:00 64 06/04/19 07:00 36.3 C L 64 18 147/62 H 96 Laboratory Results Laboratory Results - last 24 hr 06/03/19 06/04/19 06/04/19 20:37 05:48 07:30 Sodium 144 Potassium 4.9 Chloride 115 H Carbon Dioxide 25 Anion Gap 4.0 BUN 83 H Creatinine 3.42 H Est Cr Clr Drug Dosing 15.6 Est GFR ( Amer) 15.6 Est GFR (Non-Af Amer) 13.5 BUN/Creatinine Ratio 24.2 H Glucose 173 H POC Glucose 243 H 169 H Calcium 8.7 06/04/19 06/04/19 11:20 16:18 Sodium Potassium Chloride Carbon Dioxide Anion Gap BUN Creatinine Est Cr Clr Drug Dosing Est GFR ( Amer) Est GFR (Non-Af Amer) BUN/Creatinine Ratio Glucose POC Glucose 201 H 205 H Calcium PG Care Time/CCT Total # of Minutes Spent Total Time Spent with Patient: Total time spent is greater than 50% in coordination of care (as documented) at patient's floor/unit and/or counseling patient: (1) Anemia Anemia type: unspecified type Qualified Code(s): D64.9 - Anemia, unspecified
== END 2019-06-04 17:45 | disposition home health service (06) | DRG 291 ==
LOC: ED 12:47 → 2S 16:33 → SUATTDRO 16:33 → 2S 17:01

== ENCOUNTER 2020-11-18 15:28 | Inpatient (IN) ==
--- NOTE | 2020-11-18 15:57 | XRay Report ---
XR chest 1V portable HISTORY: Hypertension. COMPARISON: Chest 06/04/2019. FINDINGS: No pneumothorax. Trace bilateral pleural effusions. The heart is mildly enlarged. There is diffuse interstitial/vascular thickening consistent with mild pulmonary edema. No new focal lung cons olidations to suggest pneumonia. Scattered calcified granulomas are again noted. IMPRESSION: Mild interstitial pulmonary edema and trace bilateral pleural effusions. ACT 112: Negative or not required by law. Electronically signed by: Duane Baeza M.D. 11/18/2020 3:56 PM
[2020-11-18 16:49] LABS: Basophils # (auto) 0.02 K/uL (0-0.2); Basophils % (auto) 0.3 %; Eosinophils # (auto) 0.23 K/uL (0-0.5); Eosinophils % (auto) 3.5 %; Hematocrit (blood only) 26.1 % (37-47); Hemoglobin 8.5 g/dL (12.0-16.0); Immature Granulocytes # (auto) 0.01 K/uL (0.00-0.02); Immature Granulocytes % (auto) 0.2 %; Lymphocytes # (auto) 0.92 K/uL (1.2-3.4); Lymphocytes % (auto) 14.1 %; Mean Corpuscular Hemoglobin 30.5 pg (25-34); Mean Corpuscular Hgb Conc 32.6 g/dL (32-36); Mean Corpuscular Volume 93.5 fL (80-100); Mean Platelet Volume 9.5 fL (7.4-10.4); Monocytes % (auto) 7.7 %; Neutrophils # (auto) 4.83 K/uL (1.4-6.5); Neutrophils % (auto) 74.2 %; Platelet Count 213 K/uL (130-400); RDW Coefficient of Variation 14.7 % (11.5-14.5); RDW Standard Deviation 50.2 fL (36.4-46.3); Red Blood Count 2.79 M/uL (4.2-5.4); White Blood Count 6.51 K/uL (4.8-10.8)
[2020-11-18 17:30] LABS: Magnesium 1.9 mg/dl (1.8-2.4); Phosphorus 7.4 mg/dl (2.5-4.9); Troponin I 0.032 ng/ml (0-0.045)
[2020-11-18 17:33] LABS: Albumin Globulin Ratio 0.8 (0.9-2); BUN Creatinine Ratio 15.1 (10-20); Bilirubin,Total 0.3 mg/dl (0.2-1); Calcium 6.3 mg/dl (8.5-10.1); Creatinine Clr Calc Pharmacy 10.2 ml/min; Est GFR (African American) 8.5 ml/min; Est GFR (Non-African American) 7.3 ml/min; Globulin 3.6 gm/dl (2.5-4.0); Potassium 3.8 mmol/L (3.5-5.1); Total Protein 6.6 gm/dl (6.4-8.2)
[2020-11-18 18:02] LABS: Appearance Urine Clear (Clear); Bacteria Urine Automated Negative (Negative); Bilirubin Urine Negative (Negative); Blood Urine 2+ (Negative); Color Urine Yellow; Glucose Urine UA 1+ (Negative); Ketones Urine Negative (Negative); Leukocyte Esterase Urine Negative (Negative); Nitrite Urine Negative (Negative); Protein Urine 3+ (Negative); RBC Urine Automated 0-4 /hpf (0-4); Specific Gravity Urine 1.011 (1.000-1.030); Urobilinogen Urine Negative (Negative); pH Urine 6.5 (4.5-7.5)
[2020-11-18 18:37] LABS: Creatinine Urine Random 28.7 mg/dl
--- NOTE | 2020-11-18 19:15 | Emergency Department Note ---
Impression & Plan Acute on chronic renal failure, Hypertension, Hypoxia ED Provider Note NAME: ZAK MORLEY AGE: 65 SEX: F ARRIVES VIA: Walk-In INFORMANT: Patient, ED PROVIDER(S): Dalton Webster MD CHIEF COMPLAINT: Leg swelling, hypertension. PLAN: Disposition: Admit MEDICAL DECISION MAKING: The patient is a pleasant 65-year-old woman with a past medical history of CKD, hypertension who presents to the emergency department for evaluation of worse hafsa lower extremity swelling and elevated blood pressures over the past couple of weeks in the setting of not taking her lisinopril because she feels this makes her loose stool loose. She denies any fevers, chills, cough, congestion, chest pain, shortness of breath. The patient was seen at her PCPs office and was referred to the emergency department. Per [facility] records the patient has severe CKD and not seen her american board certified orthotist in 1.5 years. Apparently the patient was supposed to follow-up with the health it specialist to prepare for possible initiation of dialysis. Her visit today was noted that she would become hypoxic to the low 80s with ambulation. It was also noted her heart rate would decrease to the 40s but returned to the 90s. On arrival the patient's chronically ill-appearing no acute distress, afebrile with blood pressure elevated 200s/80s and vital signs otherwise stable. Desaturation initially low 90s but would at times desaturate to mid 80s without significant shortness of breath/symptoms however was placed on nasal cannula. She has 1+ bilateral lower extremity edema. She has a chronic right ankle deformity for which she wears a walking boot. EKG without overt acute ischemia. CXR with interstitial thickening. WBC wnl. H/H, similar to prior range of values. Platelets wnl. Chemistry without acidosis. Cr. 5.6 increased from 2020 values of 3-3.5. Potassium wnl. LFTs without significant abnormality. Troponin 0.032, wnl. UA without convincing evidence of infection.Covid-[address] abd/pelvis negative for acute intraabdominal process. US negative for DVT per preliminary [facility] report. Given worsening renal function reasonable to admit for further management. Patient agreed with plan for admission. Case was discussed with Dr. Wells, [facility] hospitalist, who will evaluate the patient for admission. BP management per admitting team. Triage Nursing notes reviewed and agree them. Additional history obtained from [facility] records. Prior medical records reviewed Vital Signs: reviewed and remarkable for hypertension. Differential diagnosis: Infection, dehydration, metabolic abnormality, hypo/hyperglycemia, electrolyte disturbance, anemia, hypoxia, cardiac sources, intracerebral event, toxicologic, neurologic, as well as other pathologies. ER treatment provided: See below. Diagnostics interpreted by me: ECG: NSR, 75 bpm, no ectopy, nonspecific TWA, no overt ST elevation or depre ssion. Cardiac Monitoring: An order for continuous cardiac monitoring was placed and demonstrated NSR, 75 bpm, no ectopy. Laboratory studies: See below Imaging studies: See below [facility] Preliminary Findings Only See Final Report For Complete Findings US VENOUS BILATERAL LOWER EXTREMITIES: No deep thrombosis of either lower extremity. Radiologist: Dariela Wade MD Study ready at 21:28 and initial results transmitted at 21:28 Consultation(s): Case was discussed with Dr. Wells, [facility] hospitalist, who will evaluate the patient for admission. HPI: The patient is a pleasant 65-year-old woman with a past medical history of CKD, hypertension who presents to the emergency department for evaluation of worsening lower extremity swelling and elevated blood pressures over the past couple of weeks in the setting of not taking her lisinopril because she feels this makes her loose stool loose. She denies any fevers, chills, cough, conges tion, chest pain, shortness of breath. The patient was seen at her PCPs office and was referred to the emergency department. Per [facility] records the patient has severe CKD and not seen her american board certified orthotist in 1.5 years. Apparently the patient was supposed to follow-up with the health it specialist to prepare for possible initiation of dialysis. Her visit today was noted that she would become hypoxic to the low 80s with ambulation. It was also noted her heart rate would decrease to the 40s but returned to the 90s. ROS: See above HPI for pertinent positives & negatives. A total of 10 systems reviewed and were otherwise negative. PAST MEDICAL HISTORY:See Below PAST SURGICAL HISTORY:See Below FAMILY HISTORY:See Below SOCIAL HISTORY:See Below HOME MEDICATIONS:See Below ALLERGIES:See Below VITALS:See Below PHYSICAL EXAMINATION: GENERAL: Awake, alert, fatigued/chronically ill-appearing, in no distress HENT: Normocephalic, atraumatic. Oropharynx unremarkable. EYES: Normal conjunctiva. Sclera non-icteric. NECK: Supple. No nuchal rigidity. FROM. No JVD. RESPIRATORY: Diminished at the bases, otherwise clear to auscultation. CARDIAC: Regular rate, normal rhythm. Extremities warm and well perfused. Pulses equal. ABDOMEN: Soft, non-distended. No tenderness to palpation. No rebound or guarding. No masses. RECTAL: Deferred. MUSCULOSKELETAL: Chest examination reveals no tenderness. The back is symmetrical on inspection without obvious abnormality. There is no CVA tenderness to palpation. No joint edema. LOWER EXTREMITIES: Calves are equal size bilaterally and non-tender. 1+ bilateral lower extremity edema. No discoloration. Chronic right ankle d eformity. NEURO: Normal sensorium. No sensory or motor deficits noted. SKIN: No rash or jaundice noted. Dalton Webster MD Past Med/Surg History Medical History Acquired deformity of right foot Acute osteomyelitis of right ankle or foot Acute respiratory failure with hypoxia Anemia Callus Chronic kidney disease (CKD), stage IV (severe) Closed fracture of distal end of right fibula and tibia Diabetes mellitus with diabetic polyneuropathy Diabetic foot ulcer Diabetic neuropathy Dyslipidemia Foot osteomyelitis, right History of depression Hypertension Posterior capsular opacification Type 2 diabetes mellitus Ulcer of right midfoot Vitamin D deficiency Surgical History History of appendectomy Status post right foot surgery Family History Sister Ovarian cancer Brother Hypertension Social History Smoking Status: Never smoker Second Hand Exposure: No; Hx Alcohol Use: No Hx Substance Use: No Preferred Language: Chadian 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: Effective 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 Beliefs That Will Affect Care: None marital status: Current Living Situation: Alone Current Living Situation Comment: [facility] currently at rehab but typically lives at home alone current occupational status: retired Other Information That Helps Us Care for You: No Feels Safe at Home: Yes Safety Concerns: Feels Safe At This Time Diet Comment: stated low salt, low carb during the past year weight has: increased > 10 lbs Assistive Devices: Cane, Glasses and Walker Allergies Allergies Allergy/AdvReac Type Severity Reaction Status Date / Time daptomycin AdvReac sob Verified 11/18/20 18:28 Home Meds Home Medications Medication Instructions Recorded Confirmed cholecalciferol (vitamin D3) 4,000 unit PO DAILY 07/07/18 11/18/20 [Vitamin D3] Reyna Perez U-100 Insulin 30 unit SUBCUT HS 05/30/19 11/18/20 coenzyme Q10 [Co Q-10] 100 mg PO QAM 11/18/20 11/18/20 furosemide 40 mg PO BID 11/18/20 11/18/20 Results & Data (ED) Vital Signs Vital Signs - 24 hr 11/18/20 15:36 11/18/20 16:20 11/18/20 16:34 Temperature 36.5 C Temperature Source Temporal Artery Scan Pulse Rate 80 77 Pulse Rate [Right Finger] 73 Pulse Rate from SpO2 Sensor 77 Pulse Rhythm [Right Finger] Regular Pulse Strength [Right Finger] Normal Respiratory Rate 18 17 23 Respiratory Effort / Characteristics Non-Labored Spontaneous Respiratory Depth Normal Respiratory Pattern Regular Blood Pressure 189/107 H Blood Pressure [Left Arm] 195/84 H Blood Pressure Mean 134 Blood Pressure Mean [Left Arm] 121 Blood Pressure Position [Left Arm] Lying Pulse Oximetry 94 93 97 Oxygen Delivery Method Room Air Room Air Oxygen Flow Rate Sepsis Recent Fever Within 48 Hours No Sepsis New/Unexplained Change in Mental Status N/A Sepsis Action Taken by Nursing No Action Required 11/18/20 16:43 11/18/20 16:50 11/18/20 17:00 Temperature Temperature Source Pulse Rate 77 74 73 Pulse Rate [Right Finger] Pulse Rate from SpO2 Sensor 77 73 73 Pulse Rhythm [Right Finger] Pulse Strength [Right Finger] Respiratory Rate 21 24 20 Respiratory Effort / Characteristics Respiratory Depth Respiratory Pattern Blood Pressure Blood Pressure [Left Arm] Blood Pressure Mean Blood Pressure Mean [Left Arm] Blood Pressure Position [Left Arm] Pulse Oximetry 93 94 94 Oxygen Delivery Method Oxygen Flow Rate Sepsis Recent Fever Within 48 Hours Sepsis New/Unexplained Change in Mental Status Sepsis Action Taken by Nursing 11/18/20 17:01 11/18/20 17:10 11/18/20 17:20 Temperature Temperature Source Pulse Rate 74 75 73 Pulse Rate [Right Finger] Pulse Rate from SpO2 Sensor 74 75 73 Pulse Rhythm [Right Finger] Pulse Strength [Right Finger] Respiratory Rate 22 23 22 Respiratory Effort / Characteristics Respiratory Depth Respiratory Pattern Blood Pressure Blood Pressure [Left Arm] Blood Pressure Mean Blood Pressure Mean [Left Arm] Blood Pressure Position [Left Arm] Pulse Oximetry 94 93 90 Oxygen Delivery Method Oxygen Flow Rate Sepsis Recent Fever Within 48 Hours Sepsis New/Unexplained Change in Mental Status Sepsis Action Taken by Nursing 11/18/20 17:36 11/18/20 17:38 11/18/20 17:40 Temperature Temperature Source Pulse Rate 89 85 80 Pulse Rate [Right Finger] Pulse Rate from SpO2 Sensor 89 85 80 Pulse Rhythm [Right Finger] Pulse Strength [Right Finger] Respiratory Rate 22 22 22 Respiratory Effort / Characteristics Respiratory Depth Respiratory Pattern Blood Pressure 169/78 H Blood Pressure [Left Arm] Blood Pressure Mean 108 Blood Pressure Mean [Left Arm] Blood Pressure Position [Left Arm] Pulse Oximetry 86 L 90 92 Oxygen Delivery Method Oxygen Flow Rate Sepsis Recent Fever Within 48 Hours Sepsis New/Unexplained Change in Mental Status Sepsis Action Taken by Nursing 11/18/20 17:50 11/18/20 18:00 11/18/20 18:01 Temperature Temperature Source Pulse Rate 79 80 79 Pulse Rate [Right Finger] 77 Pulse Rate from SpO2 Sensor 79 80 79 Pulse Rhythm [Right Finger] Pulse Strength [Right Finger] Respiratory Rate 22 22 22 Respiratory Effort / Characteristics Respiratory Depth Respiratory Pattern Blood Pressure 213/86 H Blood Pressure [Left Arm] 213/86 H Blood Pressure Mean 128 Blood Pressure Mean [Left Arm] 128 Blood Pressure Position [Left Arm] Pulse Oximetry 89 L 87 L 87 L Oxygen Delivery Method Room Air Room Air Oxygen Flow Rate Sepsis Recent Fever Within 48 Hours Sepsis New/Unexplained Change in Mental Status Sepsis Action Taken by Nursing 11/18/20 18:10 11/18/20 18:20 11/18/20 18:30 Temperature Temperature Source Pulse Rate 76 75 77 Pulse Rate [Right Finger] Pulse Rate from SpO2 Sensor 76 75 78 Pulse Rhythm [Right Finger] Pulse Strength [Right Finger] Respiratory Rate 22 24 24 Respiratory Effort / Characteristics Respiratory Depth Respiratory Pattern Blood Pressure Blood Pressure [Left Arm] Blood Pressure Mean Blood Pressure Mean [Left Arm] Blood Pressure Position [Left Arm] Pulse Oximetry 97 98 98 Oxygen Delivery Method Nasal Cannula Nasal Cannula Nasal Cannula Oxygen Flow Rate 2 2 2 Sepsis Recent Fever Within 48 Hours Sepsis New/Unexplained Change in Mental Status Sepsis Action Taken by Nursing 11/18/20 18:31 11/18/20 18:40 11/18/20 18:50 Temperature Temperature Source Pulse Rate 76 72 73 Pulse Rate [Right Finger] Pulse Rate from SpO2 Sensor 76 73 74 Pulse Rhythm [Right Finger] Pulse Strength [Right Finger] Respiratory Rate 22 22 21 Respiratory Effort / Characteristics Respiratory Depth Respiratory Pattern Blood Pressure Blood Pressure [Left Arm] Blood Pressure Mean Blood Pressure Mean [Left Arm] Blood Pressure Position [Left Arm] Pulse Oximetry 97 98 97 Oxygen Delivery Method Nasal Cannula Nasal Cannula Nasal Cannula Oxygen Flow Rate 2 2 2 Sepsis Recent Fever Within 48 Hours Sepsis New/Unexplained Change in Mental Status Sepsis Action Taken by Nursing 11/18/20 18:59 11/18/20 19:01 11/18/20 19:02 Temperature Temperature Source Pulse Rate 80 80 78 Pulse Rate [Right Finger] Pulse Rate from SpO2 Sensor 80 79 78 Pulse Rhythm [Right Finger] Pulse Strength [Right Finger] Respiratory Rate 24 22 23 Respiratory Effort / Characteristics Respiratory Depth Respiratory Pattern Blood Pressure 198/88 H Blood Pressure [Left Arm] Blood Pressure Mean 124 Blood Pressure Mean [Left Arm] Blood Pressure Position [Left Arm] Pulse Oximetry 97 98 98 Oxygen Delivery Method Oxygen Flow Rate Sepsis Recent Fever Within 48 Hours Sepsis New/Unexplained Change in Mental Status Sepsis Action Taken by Nursing 11/18/20 19:24 11/18/20 19:30 11/18/20 19:31 Temperature Temperature Source Pulse Rate 80 76 74 Pulse Rate [Right Finger] Pulse Rate from SpO2 Sensor 75 76 74 Pulse Rhythm [Right Finger] Pulse Strength [Right Finger] Respiratory Rate 22 20 22 Respiratory Effort / Characteristics Respiratory Depth Respiratory Pattern Blood Pressure 241/132 H Blood Pressure [Left Arm] Blood Pressure Mean 168 Blood Pressure Mean [Left Arm] Blood Pressure Position [Left Arm] Pulse Oximetry 96 98 97 Oxygen Delivery Method Oxygen Flow Rate Sepsis Recent Fever Within 48 Hours Sepsis New/Unexplained Change in Mental Status Sepsis Action Taken by Nursing 11/18/20 19:40 11/18/20 19:50 11/18/20 20:00 Temperature Temperature Source Pulse Rate 72 76 74 Pulse Rate [Right Finger] Pulse Rate from SpO2 Sensor 72 76 74 Pulse Rhythm [Right Finger] Pulse Strength [Right Finger] Respiratory Rate 20 20 27 H Respiratory Effort / Characteristics Respiratory Depth Respiratory Pattern Blood Pressure 230/97 H Blood Pressure [Left Arm] Blood Pressure Mean 141 Blood Pressure Mean [Left Arm] Blood Pressure Position [Left Arm] Pulse Oximetry 99 99 98 Oxygen Delivery Method Oxygen Flow Rate Sepsis Recent Fever Within 48 Hours Sepsis New/Unexplained Change in Mental Status Sepsis Action Taken by Nursing 11/18/20 20:01 11/18/20 20:05 11/18/20 20:07 Temperature Temperature Source Pulse Rate 73 75 76 Pulse Rate [Right Finger] Pulse Rate from SpO2 Sensor 74 76 Pulse Rhythm [Right Finger] Pulse Strength [Right Finger] Respiratory Rate 21 21 25 H Respiratory Effort / Characteristics Respiratory Depth Respiratory Pattern Blood Pressure 271/175 H 220/114 H 201/101 H Blood Pressure [Left Arm] Blood Pressure Mean 207 149 134 Blood Pressure Mean [Left Arm] Blood Pressure Position [Left Arm] Pulse Oximetry 98 97 Oxygen Delivery Method Oxygen Flow Rate Sepsis Recent Fever Within 48 Hours Sepsis New/Unexplained Change in Mental Status Sepsis Action Taken by Nursing 11/18/20 20:16 11/18/20 20:17 11/18/20 20:20 Temperature Temperature Source Pulse Rate 82 79 75 Pulse Rate [Right Finger] Pulse Rate from SpO2 Sensor 78 79 75 Pulse Rhythm [Right Finger] Pulse Strength [Right Finger] Respiratory Rate 33 H 28 H 24 Respiratory Effort / Characteristics Respiratory Depth Respiratory Pattern Blood Pressure 224/95 H Blood Pressure [Left Arm] Blood Pressure Mean 138 Blood Pressure Mean [Left Arm] Blood Pressure Position [Left Arm] Pulse Oximetry 87 L 90 98 Oxygen Delivery Method Oxygen Flow Rate Sepsis Recent Fever Within 48 Hours Sepsis New/Unexplained Change in Mental Status Sepsis Action Taken by Nursing 11/18/20 20:30 11/18/20 20:31 11/18/20 20:40 Temperature Temperature Source Pulse Rate 73 73 75 Pulse Rate [Right Finger] Pulse Rate from SpO2 Sensor 73 73 75 Pulse Rhythm [Right Finger] Pulse Strength [Right Finger] Respiratory Rate 26 H 21 18 Respiratory Effort / Characteristics Respiratory Depth Respiratory Pattern Blood Pressure 215/112 H Blood Pressure [Left Arm] Blood Pressure Mean 146 Blood Pressure Mean [Left Arm] Blood Pressure Position [Left Arm] Pulse Oximetry 99 99 99 Oxygen Delivery Method Oxygen Flow Rate Sepsis Recent Fever Within 48 Hours Sepsis New/Unexplained Change in Mental Status Sepsis Action Taken by Nursing 11/18/20 20:46 11/18/20 20:47 11/18/20 20:50 Temperature Temperature Source Pulse Rate 74 75 Pulse Rate [Right Finger] 74 Pulse Rate from SpO2 Sensor 74 75 Pulse Rhythm [Right Finger] Pulse Strength [Right Finger] Respiratory Rate 26 H 12 24 Respiratory Effort / Characteristics Non-Labored Spontaneous Respiratory Depth Respiratory Pattern Blood Pressure 215/106 H Blood Pressure [Left Arm] Blood Pressure Mean 142 Blood Pressure Mean [Left Arm] Blood Pressure Position [Left Arm] Pulse Oximetry 99 100 100 Oxygen Delivery Method Nasal Cannula Oxygen Flow Rate 2 Sepsis Recent Fever Within 48 Hours Sepsis New/Unexplained Change in Mental Status Sepsis Action Taken by Nursing 11/18/20 20:56 Temperature Temperature Source Pulse Rate 80 Pulse Rate [Right Finger] Pulse Rate from SpO2 Sensor 80 Pulse Rhythm [Right Finger] Pulse Strength [Right Finger] Respiratory Rate 21 Respiratory Effort / Characteristics Respiratory Depth Respiratory Pattern Blood Pressure 230/97 H Blood Pressure [Left Arm] Blood Pressure Mean 141 Blood Pressure Mean [Left Arm] Blood Pressure Position [Left Arm] Pulse Oximetry 99 Oxygen Delivery Method Oxygen Flow Rate Sepsis Recent Fever Within 48 Hours Sepsis New/Unexplained Change in Mental Status Sepsis Action Taken by Nursing Laboratory Data Attestation: I reviewed the patient's lab results. Result diagrams: 11/18/20 16:29 11/18/20 16:29 Lab Results 11/18/20 11/18/20 11/18/20 Range/Units 16:29 16:29 16:29 WBC 6.51 (4.8-10.8) K/uL RBC 2.79 L (4.2-5.4) M/uL Hgb 8.5 L (12.0-16.0) g/dL Hct 26.1 L (37-47) % MCV 93.5 (80-100) fL MCH 30.5 (25-34) pg MCHC 32.6 (32-36) g/dL RDW Std Deviation 50.2 H (36.4-46.3) fL RDW Coeff of Rico 14.7 H (11.5-14.5) % Plt Count 213 (130-400) K/uL MPV 9.5 (7.4-10.4) fL Immature Gran % (Auto) 0.2 % Neut % (Auto) 74.2 % Lymph % (Auto) 14.1 % Mcmullen % (Auto) 7.7 % Eos % (Auto) 3.5 % Baso % (Auto) 0.3 % Neut # (Auto) 4.83 (1.4-6.5) K/uL Lymph # (Auto) 0.92 L (1.2-3.4) K/uL Mcmullen # (Auto) 0.50 (0.11-0.59) K/uL Eos # (Auto) 0.23 (0-0.5) K/uL Baso # (Auto) 0.02 (0-0.2) K/uL Immature Gran # (Auto) 0.01 (0.00-0.02) K/uL Sodium 147 H (136-145) mmol/L Potassium 3.8 (3.5-5.1) mmol/L Chloride 117 H (98-107) mmol/L Carbon Dioxide 22 (21-32) mmol/L Anion Gap 8.0 (3-11) BUN 85 H (7-18) mg/dl Creatinine 5.64 H* (0.6-1.2) mg/dl Est Cr Clr Drug Dosing 10.2 ml/min Est GFR ( Amer) 8.5 ml/min Est GFR (Non-Af Amer) 7.3 ml/min BUN/Creatinine Ratio 15.1 (10-20) Glucose 113 H (70-99) mg/dl POC Glucose (70-99) mg/dl Calcium 6.3 L (8.5-10.1) mg/dl Phosphorus 7.4 H (2.5-4.9) mg/dl Magnesium 1.9 (1.8-2.4) mg/dl Total Bilirubin 0.3 (0.2-1) mg/dl AST 25 (15-37) U/L ALT 37 (12-78) U/L Alkaline Phosphatase 62 (45-117) U/L Troponin I 0.032 (0-0.045) ng/ml Total Protein 6.6 (6.4-8.2) gm/dl Albumin 3.0 L (3.4-5.0) gm/dl Globulin 3.6 (2.5-4.0) gm/dl Albumin/Globulin Ratio 0.8 L (0.9-2) Urine Color Urine Appearance (Clear) Urine pH (4.5-7.5) Ur Specific Zachary (1.000-1.030) Urine Protein (Negative) Urine Glucose (UA) (Negative) Urine Ketones (Negative) Urine Blood (Negative) Urine Nitrite (Negative) Urine Bilirubin (Negative) Urine Urobilinogen (Negative) Ur Leukocyte Esterase (Negative) Urine WBC (Auto) (0-5) /hpf Urine RBC (Auto) (0-4) /hpf U Hyaline Cast (Auto) (0-5) /lpf U Epithel Cells (Auto) (0-5) /lpf Urine Bacteria (Auto) (Negative) Ur Random Creatinine mg/dl Ur Random Sodium mmol/L Ur Random Urea Nitrogn mg/dl COVID-19 Eval Order SARS-CoV-2 (PCR) (Negative) 11/18/20 11/18/20 11/18/20 Range/Units 17:37 17:37 18:16 WBC (4.8-10.8) K/uL RBC (4.2-5.4) M/uL Hgb (12.0-16.0) g/dL Hct (37-47) % MCV (80-100) fL MCH (25-34) pg MCHC (32-36) g/dL RDW Std Deviation (36.4-46.3) fL RDW Coeff of Rico (11.5-14.5) % Plt Count (130-400) K/uL MPV (7.4-10.4) fL Immature Gran % (Auto) % Neut % (Auto) % Lymph % (Auto) % Mcmullen % (Auto) % Eos % (Auto) % Baso % (Auto) % Neut # (Auto) (1.4-6.5) K/uL Lymph # (Auto) (1.2-3.4) K/uL Mcmullen # (Auto) (0.11-0.59) K/uL Eos # (Auto) (0-0.5) K/uL Baso # (Auto) (0-0.2) K/uL Immature Gran # (Auto) (0.00-0.02) K/uL Sodium (136-145) mmol/L Potassium (3.5-5.1) mmol/L Chloride (98-107) mmol/L Carbon Dioxide (21-32) mmol/L Anion Gap (3-11) BUN (7-18) mg/dl Creatinine (0.6-1.2) mg/dl Est Cr Clr Drug Dosing ml/min Est GFR ( Amer) ml/min Est GFR (Non-Af Amer) ml/min BUN/Creatinine Ratio (10-20) Glucose (70-99) mg/dl POC Glucose (70-99) mg/dl Calcium (8.5-10.1) mg/dl Phosphorus (2.5-4.9) mg/dl Magnesium (1.8-2.4) mg/dl Total Bilirubin (0.2-1) mg/dl AST (15-37) U/L ALT (12-78) U/L Alkaline Phosphatase (45-117) U/L Troponin I (0-0.045) ng/ml Total Protein (6.4-8.2) gm/dl Albumin (3.4-5.0) gm/dl Globulin (2.5-4.0) gm/dl Albumin/Globulin Ratio (0.9-2) Urine Color Yellow Urine Appearance Clear (Clear) Urine pH 6.5 (4.5-7.5) Ur Specific Zachary 1.011 (1.000-1.030) Urine Protein 3+ H (Negative) Urine Glucose (UA) 1+ H (Negative) Urine Ketones Negative (Negative) Urine Blood 2+ H (Negative) Urine Nitrite Negative (Negative) Urine Bilirubin Negative (Negative) Urine Urobilinogen Negative (Negative) Ur Leukocyte Esterase Negative (Negative) Urine WBC (Auto) 1-5 (0-5) /hpf Urine RBC (Auto) 0-4 (0-4) /hpf U Hyaline Cast (Auto) 1-5 (0-5) /lpf U Epithel Cells (Auto) 5-10 H (0-5) /lpf Urine Bacteria (Auto) Negative (Negative) Ur Random Creatinine 28.7 mg/dl Ur Random Sodium 115 mmol/L Ur Random Urea Nitrogn 319 mg/dl COVID-19 Eval Order Covid19 at [facility] SARS-CoV-2 (PCR) (Negative) 11/18/20 11/18/20 Range/Units 18:16 19:06 WBC (4.8-10.8) K/uL RBC (4.2-5.4) M/uL Hgb (12.0-16.0) g/dL Hct (37-47) % MCV (80-100) fL MCH (25-34) pg MCHC (32-36) g/dL RDW Std Deviation (36.4-46.3) fL RDW Coeff of Rico (11.5-14.5) % Plt Count (130-400) K/uL MPV (7.4-10.4) fL Immature Gran % (Auto) % Neut % (Auto) % Lymph % (Auto) % Mcmullen % (Auto) % Eos % (Auto) % Baso % (Auto) % Neut # (Auto) (1.4-6.5) K/uL Lymph # (Auto) (1.2-3.4) K/uL Mcmullen # (Auto) (0.11-0.59) K/uL Eos # (Auto) (0-0.5) K/uL Baso # (Auto) (0-0.2) K/uL Immature Gran # (Auto) (0.00-0.02) K/uL Sodium (136-145) mmol/L Potassium (3.5-5.1) mmol/L Chloride (98-107) mmol/L Carbon Dioxide (21-32) mmol/L Anion Gap (3-11) BUN (7-18) mg/dl Creatinine (0.6-1.2) mg/dl Est Cr Clr Drug Dosing ml/min Est GFR ( Amer) ml/min Est GFR (Non-Af Amer) ml/min BUN/Creatinine Ratio (10-20) Glucose (70-99) mg/dl POC Glucose 270 H (70-99) mg/dl Calcium (8.5-10.1) mg/dl Phosphorus (2.5-4.9) mg/dl Magnesium (1.8-2.4) mg/dl Total Bilirubin (0.2-1) mg/dl AST (15-37) U/L ALT (12-78) U/L Alkaline Phosphatase (45-117) U/L Troponin I (0-0.045) ng/ml Total Protein (6.4-8.2) gm/dl Albumin (3.4-5.0) gm/dl Globulin (2.5-4.0) gm/dl Albumin/Globulin Ratio (0.9-2) Urine Color Urine Appearance (Clear) Urine pH (4.5-7.5) Ur Specific Zachary (1.000-1.030) Urine Protein (Negative) Urine Glucose (UA) (Negative) Urine Ketones (Negative) Urine Blood (Negative) Urine Nitrite (Negative) Urine Bilirubin (Negative) Urine Urobilinogen (Negative) Ur Leukocyte Esterase (Negative) Urine WBC (Auto) (0-5) /hpf Urine RBC (Auto) (0-4) /hpf U Hyaline Cast (Auto) (0-5) /lpf U Epithel Cells (Auto) (0-5) /lpf Urine Bacteria (Auto) (Negative) Ur Random Creatinine mg/dl Ur Random Sodium mmol/L Ur Random Urea Nitrogn mg/dl COVID-19 Eval Order SARS-CoV-2 (PCR) NEGATIVE (Negative) Administered Medications Amlodipine Besylate (Amlodipine Besylate 5 Mg Tab) 5 mg PO QAM JOSE FRANCISCO Stop: 12/19/20 04:14 Last Admin: 11/19/20 04:27 Dose: 5 mg Documented by: [id number] Carvedilol (Carvedilol 3.125 Mg Tab) 3.125 mg PO BID JOSE FRANCISCO Stop: 12/19/20 04:09 Last Admin: 11/19/20 04:27 Dose: 3.125 mg Documented by: [id number] Heparin Sodium (Porcine) (Heparin Sod 5,000 Unit/0.5 Ml Vial) 5,000 units SQ Q8 JOSE FRANCISCO Stop: 12/18/20 22:37 Last Admin: 11/18/20 23:28 Dose: 5,000 units Documented by: [id number] Insulin Aspart (Insulin Aspart 100 Units/Ml 3 Ml Pen) 0 units SC [facility] JOSE FRANCISCO Stop: 12/18/20 23:14 Last Admin: 11/18/20 23:29 Dose: Not Given Documented by: [id number] Discontinued Medications Albuterol (Albut/Ipratrop 3mg/0.5mg Neb 3 Ml Vial) 3 ml NEB NOW STA Stop: 11/18/20 20:33 Last Admin: 11/18/20 20:45 Dose: 3 ml Documented by: [id number] Amlodipine Besylate (Amlodipine Besylate 5 Mg Tab) 2.5 mg PO NOW ONE Stop: 11/18/20 20:33 Last Admin: 11/18/20 20:56 Dose: 2.5 mg Documented by: [id number] Carvedilol (Carvedilol 3.125 Mg Tab) 3.125 mg PO NOW ONE Stop: 11/18/20 21:30 Last Admin: 11/18/20 21:46 Dose: 3.125 mg Documented by: [id number] Furosemide (Furosemide 40 Mg/4 Ml Vial) 80 mg IV NOW STA Stop: 11/18/20 21:27 Last Admin: 11/18/20 21:38 Dose: 80 mg Documented by: [id number] Albumin Human (Albumin 25%) 12.5 gm in 50 mls @ 50 mls/hr IV ONE STA Stop: 11/18/20 22:28 Last Infusion: 11/19/20 00:09 Dose: 0 mls/hr Documented by: [id number] Admin: 11/18/20 22:56 Dose: 50 mls/hr Documented by: [id number] Calcium Gluconate 3,000 mg/ (Sodium Chloride) 130 mls @ 240 mls/hr IV NOW STA Stop: 11/18/20 23:38 Last Infusion: 11/19/20 00:09 Dose: 0 mls/hr Documented by: [id number] Admin: 11/18/20 23:28 Dose: 240 mls/hr Documented by: [id number] Labetalol HCl (Labetalol Hcl Iv 5 Mg/Ml 20ml) 10 mg IV NOW STA Stop: 11/18/20 21:06 Last Admin: 11/18/20 22:57 Dose: Not Given Documented by: [id number] Labetalol HCl (Labetalol Hcl Iv 5 Mg/Ml 20ml) Confirm Administered Dose 5 mg IV .STK-MED ONE Stop: 11/18/20 21:44 Last Admin: 11/18/20 23:28 Dose: 5 mg Documented by: [id number] Cosigned by: [id number] Labetalol HCl (Labetalol Hcl Iv 5 Mg/Ml 20ml) Confirm Administered Dose 5 mg IV .STK-MED ONE Stop: 11/18/20 23:28 Last Admin: 11/19/20 00:08 Dose: Not Given Documented by: [id number] Imaging Data Radiologist's Impression: Abdomen/Pelvis CT 11/18/20 17:51 CT SCAN OF THE ABDOMEN AND PELVIS WITHOUT IV CONTRAST CLINICAL HISTORY: Acute on chronic renal insufficiency. COMPARISON STUDY: Abdominal CT dated 05/31/2015. TECHNIQUE: CT scan of the abdomen and pelvis is performed from the lung bases to the proximal femora. Images are reviewed in the axial, sagittal, and coronal planes. IV contrast was not administered for this examination. A dose lowering technique was utilized adhering to the principles of ALARA. The examination is modestly degraded by motion artifact. CT DOSE: 960.94 mGycm FINDINGS: Lung bases: The heart is mildly enlarged and without pericardial effusion. There is diminished attenuation of the cardiac blood pool as compared to the my ocardium suggesting anemia. There are trace pleural effusions with bibasilar atelectasis. Intralobular septal thickening is noted at the lung bases. There is no airspace consolidation typical for pneumonia. Liver: The unenhanced liver is normal in size, contour, and attenuation. There is no intrahepatic biliary ductal dilatation. Gallbladder: Unremarkable. Spleen: Normal in size and attenuation. Pancreas: The unenhanced pancreas is moderately atrophic and grossly unremarkable. Adrenal glands: A 1.2 cm left adrenal nodule meets CT criteria for a fat- containing adenoma. The right adrenal gland is normal in appearance. Kidneys: The unenhanced kidneys are atrophic and without hydronephrosis. There is a 4 mm nonobstructing calculus in the right upper pole. A punctate nonobstructing calculus is seen in the left kidney. There is no evidence of contour deforming renal mass lesion. Abdominal vasculature: The abdominal aorta is normal in course and caliber noting moderate to advanced atherosclerotic calcification. Bowel: There is moderate colonic diverticulosis without CT evidence of acute diverticulitis. No bowel obstruction is seen. Mild fecal retention is seen throughout the colon. A duodenal diverticulum is incidentally noted. The appendix is not identified and reported surgically absent. Peritoneum: There is no intraperitoneal free air or abdominal ascites. Lymphadenopathy: None. Pelvic viscera: The bladder, uterus, and adnexa are normal as visualized. Skeletal structures: The skeletal structures are osteopenic. There is mild lumbosacral spondylosis. No lytic or blastic lesions are seen. Soft tissues: There is mild body wall edema. IMPRESSION: 1. There are no acute infectious or inflammatory findings in the abdomen or pelvis. 2. The heart is enlarged. There is intralobular septal thickening at the lung bases and trace pleural effusions. These findings suggest congestive failure and clinical correlation will be required. 3. Bilateral nephrolithiasis. 4. Colonic diverticulosis without CT evidence of acute diverticulitis. 5. Additional findings as above. ACT 112: Negative or not required by law. Electronically signed by: Genaro Traylor M.D. 11/18/2020 8:21 PM Discharge Plan Visit Data Chief Complaint: Hypertension Stated Complaint: BOTH LEGS ARE SWOLLEN,BP IS HIGH,REF BY ED Provider: Dalton Webster Discharge Problem: Acute on chronic renal failure, Hypertension, Hypoxia Patient Disposition: Admitted As Inpatient Discharge Instructions Interventions: ED Discharge Assessment Last Done: 11/18/20 21:57 Discharge Problem: Acute on chronic renal failure Qualifiers: Acute renal failure type: unspecified Chronic kidney disease stage: unspecified stage Qualified Code(s): N17.9 - Acute kidney failure, unspecified Hypertension Qualifiers: Hypertension type: unspecified Qualified Code(s): I10 - Essential (primary) hypertension
--- NOTE | 2020-11-18 20:22 | CT Scan Report ---
CT SCAN OF THE ABDOMEN AND PELVIS WITHOUT IV CONTRAST CLINICAL HISTORY: Acute on chronic renal insufficiency. COMPARISON STUDY: Abdominal CT dated 05/31/2015. TECHNIQUE: CT scan of the abdomen and pelvis is performed from the lung bases to the proximal femora. Images are reviewed in the axial, sagittal, and coronal planes. IV contrast was not administered for this examination. A dose lowering technique was utilized adhering to the principles of ALARA. The ex amination is modestly degraded by motion artifact. CT DOSE: 960.94 mGycm FINDINGS: Lung bases: The heart is mildly enlarged and without pericardial effusion. There is diminished attenu ation of the cardiac blood pool as compared to the myocardium suggesting anemia. There are trace pleu ral effusions with bibasilar atelectasis. Intralobular septal thickening is noted at the lung bases. There is no airspace consolidation typical for pneumonia. Liver: The unenhanced liver is normal in size, contour, and attenuation. There is no intrahepatic bry iary ductal dilatation. Gallbladder: Unremarkable. Spleen: Normal in size and attenuation. Pancreas: The unenhanced pancreas is moderately atrophic and grossly unremarkable. Adrenal glands: A 1.2 cm left adrenal nodule meets CT criteria for a fat-containing adenoma. The righ t adrenal gland is normal in appearance. Kidneys: The unenhanced kidneys are atrophic and without hydronephrosis. There is a 4 mm nonobstructi ng calculus in the right upper pole. A punctate nonobstructing calculus is seen in the left kidney. T here is no evidence of contour deforming renal mass lesion. Abdominal vasculature: The abdominal aorta is normal in course and caliber noting moderate to advance d atherosclerotic calcification. Bowel: There is moderate colonic diverticulosis without CT evidence of acute diverticulitis. No bowel obstruction is seen. Mild fecal retention is seen throughout the colon. A duodenal diverticulum is i ncidentally noted. The appendix is not identified and reported surgically absent. Peritoneum: There is no intraperitoneal free air or abdominal ascites. Lymphadenopathy: None. Pelvic viscera: The bladder, uterus, and adnexa are normal as visualized. Skeletal structures: The skeletal structures are osteopenic. There is mild lumbosacral spondylosis. N o lytic or blastic lesions are seen. Soft tissues: There is mild body wall edema. IMPRESSION: 1. There are no acute infectious or inflammatory findings in the abdomen or pelvis. 2. The heart is enlarged. There is intralobular septal thickening at the lung bases and trace pleural effusions. These findings suggest congestive failure and clinical correlation will be required. 3. Bilateral nephrolithiasis. 4. Colonic diverticulosis without CT evidence of acute diverticulitis. 5. Additional findings as above. ACT 112: Negative or not required by law. Electronically signed by: Genaro Traylor M.D. 11/18/2020 8:21 PM
[2020-11-18] MEDS ORDERED: LACTATED RINGER'S 500 ML IV SCH (20:30)
[2020-11-18] MEDS ORDERED: amLODIPine BESYLATE 5 MG TAB PO ONE (20:32)
[2020-11-18] MEDS ORDERED: ALBUT/IPRATROP 3MG/0.5MG NEB 3 ML VIAL NEB STA (20:32)
--- NOTE | 2020-11-18 21:03 | History & Physical Report ---
Date of Service November 18, 2020 Assessment & Plan (1) Acute respiratory failure with hypoxia: (2) Stage 5 chronic kidney disease not on chronic dialysis: (3) Pulmonary edema: (4) Type 2 diabetes mellitus: (5) Hypertension: (6) Dyslipidemia: (7) Anemia: HPI, PMH, PE, med rec completed by Lyn Ty PA-C. Assessment and plan per Dr. Wells. History of Present Illness Chief Complaint: Leg swelling Primary Care Provider: Melissa Bronson DO Pt is 65 y/o F with PMH CKD V, DM II, HTN, dyslipidemia, TIA, h/o R foot osteomyelitis, anemia presented to ER for BLE edema x1.5 weeks. Patient reports noticing increased lower extremity edema up to her thighs. Denies leg erythema, pain or paresthesias. She reports shortness of breath with exertion for several months which resolves with rest. Reports orthopnea for the past 1.5 years. Patient with history of hospitalization 05/2019 for right foot osteomyelitis, acute hypoxic respiratory failure, fluid overload. She is not followed with PCP or nephrology (Dr. Ambrocio) since 05/2019. She stopped taking aspirin 81 mg, atorvastatin 10 mg, amlodipine 5 mg, Coreg 6.25 mg twice daily. She reports that she has been taking Basaglar 30 units daily and Lasix 40 mg twice daily. Patient reports making urine. He was seen at PCP office today and noted to be hypertensive and hypoxic and was referred to ER for further evaluation. Denies fever/chills, diaphoresis, nausea, vomiting, ROMERO, dizziness, syncope, vision changes, neck pain, CP, palpitations, cough, sore throat, choking, otalgia, rhinorrhea, abdominal pain, rashes, dysuria, hematuria, urinary retention. In ER patient afebrile, P: 70, BP 213/86, noted to be hypoxic to mid 80s on room air. CXR:Mild interstitial pulmonary edema and trace bilateral pleural effusions. Initial troponin negative. Creatinine: 5.6 (was 3.4 in 06/11/2019) Allergies Allergy/AdvReac Type Severity Reaction Status Date / Time daptomycin AdvReac sob Verified 11/18/20 18:28 Home Medications Medication Instructions Recorded Confirmed Type cholecalciferol (vitamin D3) 4,000 unit PO DAILY 07/07/18 11/18/20 History [Vitamin D3] Reyna Perez U-100 Insulin 30 unit SUBCUT HS 05/30/19 11/18/20 History coenzyme Q10 [Co Q-10] 100 mg PO QAM 11/18/20 11/18/20 History furosemide 40 mg PO BID 11/18/20 11/18/20 History Past Med/Surg History Medical History Acquired deformity of right foot Acute osteomyelitis of right ankle or foot Acute respiratory failure with hypoxia Anemia Callus Chronic kidney disease (CKD), stage IV (severe) Closed fracture of distal end of right fibula and tibia Diabetes mellitus with diabetic polyneuropathy Diabetic foot ulcer Diabetic neuropathy Dyslipidemia Foot osteomyelitis, right History of depression Hypertension Posterior capsular opacification Type 2 diabetes mellitus Ulcer of right midfoot Vitamin D deficiency Surgical History History of appendectomy Status post right foot surgery Family History Sister Ovarian cancer Brother Hypertension Social History Smoking Status: Never smoker Second Hand Exposure: No; Hx Alcohol Use: No Hx Substance Use: No Preferred Language: Sinhala 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: Effective Power And Recovery Supervisor Required: No Beliefs That Will Affect Care: None marital status: Current Living Situation: Alone Current Living Situation Comment: [facility] currently at rehab but typically lives at home alone current occupational status: retired Other Information That Helps Us Care for You: No Feels Safe at Home: Yes Safety Concerns: Feels Safe At This Time Diet Comment: stated low salt, low carb during the past year weight has: increased > 10 lbs Assistive Devices: Cane, Glasses and Walker Review of Systems 2 Review of Systems: All systems reviewed & are unremarkable except as noted in HPI & below Physical Exam Physical Exam: General: no distress, overweight Head: normocephalic, atraumatic Eyes: PERRL, EOM's intact, conjunctiva non-injected, anicteric ENT: normal inspection external ears, nose, mucous membranes moist Neck: supple, trachea midline Lungs: On 2L oxygen via NC, sats 98%. R:22. +scattered expiratory wheezing, +rales bases, able to speak in sentences CV: RRR, no murmur, 2+ pretibial edema Abd: normal BS, soft, non-tender Ext: no cyanosis, no erythema, no calf tenderness; right ankle with chronic deformity, left smith with wound, toenails thickened and long; distal pulses pa lpable Neuro: A&O x 3, no focal deficits noted, normal affect Skin: warm, dry Results & Data Results & Data ([facility]) Vital Signs (Past 12 Hours) Vital Signs Temp Pulse Pulse Resp BP BP Pulse Ox 11/18/20 20:50 75 24 100 11/18/20 20:47 74 12 100 11/18/20 20:46 74 26 H 215/106 H 99 11/18/20 20:40 75 18 99 11/18/20 20:31 73 21 215/112 H 99 11/18/20 20:30 73 26 H 99 11/18/20 20:20 75 24 98 11/18/20 20:17 79 28 H 224/95 H 90 11/18/20 20:16 82 33 H 87 L 11/18/20 20:07 76 25 H 201/101 H 11/18/20 20:05 75 21 220/114 H 97 11/18/20 20:01 73 21 271/175 H 98 11/18/20 20:00 74 27 H 98 11/18/20 19:50 76 20 99 11/18/20 19:40 72 20 230/97 H 99 11/18/20 19:31 74 22 241/132 H 97 11/18/20 19:30 76 20 98 11/18/20 19:24 80 22 96 11/18/20 19:02 78 23 98 11/18/20 19:01 80 22 98 11/18/20 18:59 80 24 198/88 H 97 11/18/20 18:50 73 21 97 11/18/20 18:40 72 22 98 11/18/20 18:31 76 22 97 11/18/20 18:30 77 24 98 11/18/20 18:20 75 24 98 11/18/20 18:10 76 22 97 11/18/20 18:01 79 22 213/86 H 87 L 11/18/20 18:00 80 77 22 213/86 H 87 L 11/18/20 17:50 79 22 89 L 11/18/20 17:40 80 22 92 11/18/20 17:38 85 22 90 11/18/20 17:36 89 22 169/78 H 86 L 11/18/20 17:20 73 22 90 11/18/20 17:10 75 23 93 11/18/20 17:01 74 22 94 11/18/20 17:00 73 20 94 11/18/20 16:50 74 24 94 11/18/20 16:43 77 21 93 11/18/20 16:34 77 23 97 11/18/20 16:20 73 17 195/84 H 93 11/18/20 15:36 36.5 C 80 18 189/107 H 94 Laboratory Results Short CBC 11/18/20 11/18/20 Range/Units 16:29 16:29 WBC 6.51 (4.8-10.8) K/uL Hgb 8.5 L (12.0-16.0) g/dL Hct 26.1 L (37-47) % Plt Count 213 (130-400) K/uL Creatinine 5.64 H* (0.6-1.2) mg/dl BMP 11/18/20 16:29 Sodium 147 H Potassium 3.8 Chloride 117 H Carbon Dioxide 22 BUN 85 H Creatinine 5.64 H* Glucose 113 H Calcium 6.3 L Cardiac Enzymes 11/18/20 Range/Units 16:29 Troponin I 0.032 (0-0.045) ng/ml Liver Function 11/18/20 Range/Units 16:29 Total Bilirubin 0.3 (0.2-1) mg/dl AST 25 (15-37) U/L ALT 37 (12-78) U/L Alkaline Phosphatase 62 (45-117) U/L Albumin 3.0 L (3.4-5.0) gm/dl Urine 11/18/20 Range/Units 17:37 Urine Color Yellow Urine Appearance Clear (Clear) Urine pH 6.5 (4.5-7.5) Ur Specific [place] 1.011 (1.000-1.030) Urine Protein 3+ H (Negative) Urine Glucose (UA) 1+ H (Negative) Diagnostic Findings Chest X-Ray 11/18/20 15:43 XR chest 1V portable HISTORY: Hypertension. COMPARISON: Chest 06/04/2019. FINDINGS: No pneumothorax. Trace bilateral pleural effusions. The heart is mildly enlarged. There is diffuse interstitial/vascular thickening consistent with mild pulmonary edema. No new focal lung consolidations to suggest pneumonia. Scattered calcified granulomas are again noted. IMPRESSION: Mild interstitial pulmonary edema and trace bilateral pleural effusions. ACT 112: Negative or not required by law. Electronically signed by: Duane Baeza M.D. 11/18/2020 3:56 PM Abdomen/Pelvis CT 11/18/20 17:51 CT SCAN OF THE ABDOMEN AND PELVIS WITHOUT IV CONTRAST CLINICAL HISTORY: Acute on chronic renal insufficiency. COMPARISON STUDY: Abdominal CT dated 05/31/2015. TECHNIQUE: CT scan of the abdomen and pelvis is performed from the lung bases to the proximal femora. Images are reviewed in the axial, sagittal, and coronal planes. IV contrast was not administered for this examination. A dose lowering technique was utilized adhering to the principles of ALARA. The examination is modestly degraded by motion artifact. CT DOSE: 960.94 mGycm FINDINGS: Lung bases: The heart is mildly enlarged and without pericardial effusion. There is diminished attenuation of the cardiac blood pool as compared to the myocardium suggesting anemia. There are trace pleural effusions with bibasilar atelectasis. Intralobular septal thickening is noted at the lung bases. There is no airspace consolidation typical for pneumonia. Liver: The unenhanced liver is normal in size, contour, and attenuation. There is no intrahepatic biliary ductal dilatation. Gallbladder: Unremarkable. Spleen: Normal in size and attenuation. Pancreas: The unenhanced pancreas is moderately atrophic and grossly unremarkable. Adrenal glands: A 1.2 cm left adrenal nodule meets CT criteria for a fat- containing adenoma. The right adrenal gland is normal in appearance. Kidneys: The unenhanced kidneys are atrophic and without hydronephrosis. There is a 4 mm nonobstructing calculus in the right upper pole. A punctate nonobstructing calculus is seen in the left kidney. There is no evidence of contour deforming renal mass lesion. Abdominal vasculature: The abdominal aorta is normal in course and caliber noting moderate to advanced atherosclerotic calcification. Bowel: There is moderate colonic diverticulosis without CT evidence of acute diverticulitis. No bowel obstruction is seen. Mild fecal retention is seen throughout the colon. A duodenal diverticulum is incidentally noted. The appendix is not identified and reported surgically absent. Peritoneum: There is no intraperitoneal free air or abdominal ascites. Lymphadenopathy: None. Pelvic viscera: The bladder, uterus, and adnexa are normal as visualized. Skeletal structures: The skeletal structures are osteopenic. There is mild lumbosacral spondylosis. No lytic or blastic lesions are seen. Soft tissues: There is mild body wall edema. IMPRESSION: 1. There are no acute infectious or inflammatory findings in the abdomen or pelvis. 2. The heart is enlarged. There is intralobular septal thickening at the lung bases and trace pleural effusions. These findings suggest congestive failure and clinical correlation will be required. 3. Bilateral nephrolithiasis. 4. Colonic diverticulosis without CT evidence of acute diverticulitis. 5. Additional findings as above. ACT 112: Negative or not required by law. Electronically signed by: Genaro Traylor M.D. 11/18/2020 8:21 PM Supervising Physician Co-Signing Physician Notes IM ATTENDING : Patient seen and examined. History obtained from patient and records. Preceding documentation by Ms. Lyn Ty PA-C reviewed. FINAL ASSESSMENT AND PLAN as follows : Acute hypoxemic respiratory failure secondary to cardiorenal syndrome Hyperphosphatemia, hypocalcemia secondary to renal disease Hypertensive crisis secondary to medication noncompliance TIA as per records DM2, insulin requiring, well-controlled as of recent hemoglobin A1c of 6.7 Ja nuary 2020 Chronic anemia, hemoglobin at baseline PCU Supplemental O2 IV Lasix Nephrology consult Re: ARF on CKD ([place] [facility] as per patient request) Re-initiate Coreg and Amlodipine home medications and titrate accordingly. Appropriate to hold home JOSUE inhibitor for now given kidney dysfunction. Patient counseled about importance of complying with medication regimen and regular outpatient follow-up with PCP/specialty providers. Basal insulin, ISS BG goal 1 10-1 40, carb count coverage DVT prophylaxis per Heparin subcu Full code Case discussed with Dr. Clark (traffic director radiology practitioner assistant) who agrees with diuretic Rx for now. Text document was generated using [employer] voice recognition software. It may contain grammatical or spelling errors. Kindly contact undersigned for clarification of any documentation item in question. (1) Anemia Anemia type: unspecified type Qualified Code(s): D64.9 - Anemia, unspecified (2) Hypertension Hypertension type: essential hypertension Qualified Code(s): I10 - Essential (primary) hypertension
[2020-11-18] MEDS ORDERED: LABETALOL HCL IV 5 MG/ML 20ML IV STA (21:05)
[2020-11-18] MEDS ORDERED: FUROSEMIDE 40 MG/4 ML VIAL IV STA (21:26)
[2020-11-18] MEDS ORDERED: ALBUMIN 25% 12.5 GM/50 ML VIAL IV STA (21:29)
[2020-11-18] MEDS ORDERED: carvediloL 3.125 MG TAB PO ONE (21:29)
[2020-11-18] MEDS ORDERED: LABETALOL HCL IV 5 MG/ML 20ML IV ONE ×2 (21:43→23:27)
[2020-11-18] MEDS ORDERED: GLUCOSE 10 TABS/TUBE PO PRN (22:38)
[2020-11-18] MEDS ORDERED: GLUCOSE 40% GEL 15 GM TUBE PO PRN (22:38)
[2020-11-18] MEDS ORDERED: PROMETHAZINE HCL 12.5 MG in SODIUM CHLORIDE 0.9% 50 ML IV PRN (22:38)
[2020-11-18] MEDS ORDERED: CARBOHYDRATES FOR HYPOGLYCEMIA PO PRN (22:38)
[2020-11-18] MEDS ORDERED: ACETAMINOPHEN 325 MG TAB PO PRN (22:38)
[2020-11-18] MEDS ORDERED: traMADol HCL 50 MG TABLET PO PRN (22:38)
[2020-11-18] MEDS ORDERED: GLUCAGON FOR INJ 1 MG VIAL SQ PRN (22:38)
[2020-11-18] MEDS ORDERED: NITROGLYCERIN SL 0.4 MG/TAB TAB SL PRN (22:38)
[2020-11-18] MEDS ORDERED: DEXTROSE 50% 50 ML SYRINGE IV PRN (22:38)
[2020-11-18] MEDS ORDERED: CALCIUM GLUCONATE 10% 3,000 MG in 0.9 % SODIUM CHLORIDE 100 ML IV STA (23:06)
[2020-11-18] MEDS: HEPARIN SOD 5,000 UNIT/0.5 ML VIAL SQ SCH (23:28)
[2020-11-18] MEDS: INSULIN ASPART 100 UNITS/ML 3 ML PEN SC SCH (23:29)
[2020-11-19] MEDS ORDERED: amLODIPine BESYLATE 5 MG TAB PO SCH ×2 (04:15→09:00)
[2020-11-19] MEDS: carvediloL 3.125 MG TAB PO SCH ×2 (04:27→21:07)
[2020-11-19] MEDS: HEPARIN SOD 5,000 UNIT/0.5 ML VIAL SQ SCH ×3 (05:52→21:07)
[2020-11-19 06:23] LABS: Basophils # (auto) 0.02 K/uL (0-0.2); Basophils % (auto) 0.3 %; Eosinophils # (auto) 0.08 K/uL (0-0.5); Eosinophils % (auto) 1.3 %; Hemoglobin 8.9 g/dL (12.0-16.0); Immature Granulocytes # (auto) 0.02 K/uL (0.00-0.02); Immature Granulocytes % (auto) 0.3 %; Lymphocytes # (auto) 1.03 K/uL (1.2-3.4); Lymphocytes % (auto) 17.2 %; Mean Corpuscular Hgb Conc 31.8 g/dL (32-36); Mean Corpuscular Volume 94.3 fL (80-100); Mean Platelet Volume 9.4 fL (7.4-10.4); Monocytes # (auto) 0.47 K/uL (0.11-0.59); Monocytes % (auto) 7.9 %; Neutrophils # (auto) 4.36 K/uL (1.4-6.5); Platelet Count 218 K/uL (130-400); RDW Coefficient of Variation 14.6 % (11.5-14.5); Red Blood Count 2.97 M/uL (4.2-5.4); White Blood Count 5.98 K/uL (4.8-10.8)
--- NOTE | 2020-11-19 06:58 | Ultrasound Report ---
US venous doppler LE BI CLINICAL HISTORY: Bilateral leg edema COMPARISON STUDY: No previous studies for comparison. FINDINGS: Real-time and color flow Doppler imaging were performed. Flow was seen within the femoral, popliteal and calf veins with no intraluminal thrombus demonstrated. The saphenous vein is patent. Th e common femoral waveforms demonstrate prominent pulsatility. Elevated right heart pressures cannot b e excluded IMPRESSION: No evidence of lower extremity DVT. ACT 112: Negative or not required by law. Electronically signed by: Marco Nieto M.D. 11/19/2020 6:56 AM
[2020-11-19 07:09] LABS: Estimated Average Glucose 157 mg/dl; Hemoglobin A1C 7.1 % (4.5-5.6)
[2020-11-19 07:23] LABS: Albumin Level 3.4 gm/dl (3.4-5.0); BUN Creatinine Ratio 14.9 (10-20); Calcium 7.3 mg/dl (8.5-10.1); Creatinine Clr Calc Pharmacy 9.8 ml/min; Est GFR (African American) 8.4 ml/min; Est GFR (Non-African American) 7.3 ml/min; Phosphorus 8.1 mg/dl (2.5-4.9); Potassium 3.9 mmol/L (3.5-5.1)
--- NOTE | 2020-11-19 08:07 | Hospitalist Progress Note ---
Date of Service November 19, 2020 Assessment & Plan (1) Acute respiratory failure with hypoxia: (2) Stage 5 chronic kidney disease not on chronic dialysis: (3) Pulmonary edema: (4) Type 2 diabetes mellitus: (5) Hypertension: (6) Dyslipidemia: (7) Anemia: Supplemental O2 IV Lasix Nephrology consult Re: ARF on CKD ([facility] as per patient request) Re-initiate Coreg and Amlodipine home medications and titrate accordingly. Add Hydralazine today, Nephro to see. Hold JOSUE inhibitor for now given kidney dysfunction. Patient counseled about importance of complying with medication regimen and regular outpatient follow-up with PCP/specialty providers. Basal insulin, ISS BG goal 1 10-1 40, carb count coverage DVT prophylaxis per Heparin subcu Full code Labs Checked ROS-No Headache, No Visual Changes, No Nausea, No Vomiting, No Fever, No Chills, No Neck Pain or Stiffness, No Chest Pain, No Palpitations, No SOB, No PAYNE, No Cough, No Sputum, No Wheezing, No Abdominal Pain, No Diarrhea, No Hematemesis, No Hemoptysis, No Unexpected Weight Loss, No Flank pain, No Melena, No Hematochezia, No Frequency, No Urgency, No Burning, No Hematuria, No Rashes, No Diaphoresis. Appetite is Normal Physical Exam Gen-AAO x 3, NAD, Afebrile Head-NCAT, EOMI, PERRLA, Anicteric Sclera, No Posterior Pharyngeal Erythema Neck-Supple, No JVD, No Thyromegaly, No Masses, No LAD, No Bruits Lungs-Clear to Auscultation Bilaterally, No Rales, No Rhonchi, No Wheezing, No Crepitus Chest-No S4, +S1, +S2, No S3, No Murmurs, No Rubs, No Gallops, No Ectopy Abdomen-Soft, Bowel Sounds Present, Non Tender, Non Distended, No Hepatomegaly, No Splenomegaly, No Palpable Masses, No Rebound, No Rigidity, No Guarding Musculoskeletal-Full Range of Motion Bilaterally, No CVAT Extremities-No Cyanosis, No Clubbing, +Edema Nuero-Cranial Nerves II-XII grossly intact, Motor WNL, DTRs WNL, Strength WNL, Non Focal Psych-Normal Mood Admission and Anticipated Discharge Date Admission Date: November 18, 2020 Results & Data Results & Data ([facility]) Vital Signs (Past 12 Hours) Vital Signs Temp Pulse Pulse Resp BP BP BP 11/19/20 07:38 36.5 C 67 18 180/77 H 11/19/20 05:49 186/92 H 11/19/20 04:00 36.5 C 72 18 192/94 H 11/19/20 01:09 75 11/18/20 22:16 36.5 C 83 18 193/103 H 11/18/20 21:46 79 18 213/98 H 11/18/20 21:40 80 20 11/18/20 21:36 81 23 203/83 H 11/18/20 21:35 81 20 11/18/20 20:56 80 21 230/97 H 11/18/20 20:50 75 24 11/18/20 20:47 74 12 11/18/20 20:46 74 26 H 215/106 H 11/18/20 20:40 75 18 11/18/20 20:31 73 21 215/112 H 11/18/20 20:30 73 26 H 11/18/20 20:20 75 24 11/18/20 20:17 79 28 H 224/95 H 11/18/20 20:16 82 33 H Pulse Ox 11/19/20 07:38 97 11/19/20 05:49 11/19/20 04:00 98 11/19/20 01:09 11/18/20 22:16 96 11/18/20 21:46 98 11/18/20 21:40 98 11/18/20 21:36 98 11/18/20 21:35 11/18/20 20:56 99 11/18/20 20:50 100 11/18/20 20:47 100 11/18/20 20:46 99 11/18/20 20:40 99 11/18/20 20:31 99 11/18/20 20:30 99 11/18/20 20:20 98 11/18/20 20:17 90 11/18/20 20:16 87 L (1) Hypertension Hypertension type: unspecified Qualified Code(s): I10 - Essential (primary) hypertension (2) Anemia Anemia type: unspecified type Qualified Code(s): D64.9 - Anemia, unspecified
[2020-11-19] MEDS ORDERED: carvediloL 3.125 MG TAB PO SCH (09:00)
[2020-11-19] MEDS: hydrALAZINE HCL 25 MG TAB PO SCH ×3 (09:02→21:11)
[2020-11-19] MEDS: INSULIN ASPART 100 UNITS/ML 3 ML PEN SC SCH ×4 (09:02→21:06)
[2020-11-19] MEDS: FUROSEMIDE 80 MG in SYRINGE 0 ML IV SCH ×2 (09:02→21:06)
[2020-11-19] MEDS: INSULIN GLARGINE SOLOSTAR 100 UNITS/ML 3 ML PEN SC SCH (09:03)
--- NOTE | 2020-11-19 11:03 | Nephrology Consultation ---
Date of Consultation November 19, 2020 Assessment & Plan (1) ESRD (end stage renal disease): * Patient has progressed to ESRD * Indications/benefits/risks/alternatives to AVF creation and HD discussed in detail w/ patient this morning. She is agreeable to IJ THC insertion and initiation of HD * INR ordered * Will consult Vascular Surgery for IJ THC insertion and assessment for AVF at later date * Start Renal Caps and Phos-Lo * Case management consult requested to set up outpatient HD and transportation * staff radiation therapist advised to protect L arm for AVF creation * Will order 24 hour urine Clcr, renal US (2) Hypertension: * Agree w/ Carvedilol and Hydralazine for BP management * Amlodipine stopped due to LE swelling (3) Congestive heart disease: * Continue IV Furosemide and monitor UO, volume status (4) Anemia: * Will order iron studies and consider RANDY therapy (5) Type 2 diabetes mellitus: * Insulin therapy as per primary service (6) Onychomycosis: * Will consult Podiatry for diabetic foot care and to treat ingrown toe nails History of Present Illness Reason for Consultation: ESRD Attending Physician: Tyler Tineo, History of Present Illness Ms. Riley is a 65 year old white female who is seen at the request of Dr. Tineo for ESRD. Medical records in the EMR were reviewed and are summarized as follows: Ms. Riley has DKD w/ baseline Cr 3.5. 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 Stokes. She requested a change to [facility] during her 06/10 hospitalization but did not maintain outpatient follow up. She presented to the ED last evening w/ complaints of progressive LE swelling and dyspnea. She has not taken any of her medications for the last several weeks because she felt that they caused diarrhea. ED evaluation revealed Cr 5.65 w/ EGFR 7.3, acellular urine sediment, 3+ urinary protein by dipstick, CXR w/ interstitial edema and trace bilateral pleural effusions. Venous doppler was negative for DVT. Abdominal CT without contrast revealed bilateral nephrolithiasis but no obstruction. Ms. Riley resides by herself in [place], [place]. 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 She no longer drives. PMH: AODM complicated by retinopathy, HTN, hyperlipidemia, depression, R ankle fracture (repaired - requires walking boot). Allergies Allergy/AdvReac Type Severity Reaction Status Date / Time daptomycin AdvReac sob Verified 11/18/20 18:28 Home Medications Medication Instructions Recorded Confirmed Type cholecalciferol (vitamin D3) 4,000 unit PO DAILY 07/07/18 11/18/20 History [Vitamin D3] Basaglar KwikPen U-100 Insulin 30 unit SUBCUT HS 05/30/19 11/18/20 History coenzyme Q10 [Co Q-10] 100 mg PO QAM 11/18/20 11/18/20 History furosemide 40 mg PO BID 11/18/20 11/18/20 History Patient History Medical History Acquired deformity of right foot Acute osteomyelitis of right ankle or foot Acute respiratory failure with hypoxia Anemia Callus Chronic kidney disease (CKD), stage IV (severe) Closed fracture of distal end of right fibula and tibia Diabetes mellitus with diabetic polyneuropathy Diabetic foot ulcer Diabetic neuropathy Dyslipidemia Foot osteomyelitis, right History of depression Hypertension Posterior capsular opacification Type 2 diabetes mellitus Ulcer of right midfoot Vitamin D deficiency Surgical History History of appendectomy Status post right foot surgery Family History Sister Ovarian cancer Brother Hypertension Social History Smoking Status: Never smoker Second Hand Exposure: No; Hx Alcohol Use: No Hx Substance Use: No Preferred Language: Djiboutian 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: Effective Veterinarian Poultry Required: No Beliefs That Will Affect Care: None marital status: Current Living Situation: Alone Current Living Situation Comment: [facility] currently at rehab but typically lives at home alone current occupational status: retired Other Information That Helps Us Care for You: No Feels Safe at Home: Yes Safety Concerns: Feels Safe At This Time Diet Comment: stated low salt, low carb during the past year weight has: increased > 10 lbs Assistive Devices: Special Shoe Review of Systems Constitutional: + weakness; no fever Eyes: + worsening vision Ear, Nose, Mouth, Throat: no problem reported Respiratory: + dyspnea; no cough Cardiovascular: + edema; no chest pain and no palpitations Gastrointestinal: no abdominal pain, no nausea and no diarrhea/loose stools Genitourinary: no dysuria and no hematuria Musculoskeletal: no back pain Integumentary: no rash Neurologic: no dizziness and no confusion Physical Exam Constitutional: + ill appearing; not in distress Eyes: PERRL, conjunctivae normal, anicteric sclerae ENMT: external ear and nose normal, oropharynx normal Neck: trachea midline, no thyromegaly Respiratory: normal respiratory effort Auscultation: + rales Cardiovascular: Rate/Rhythm: regular rate and regular rhythm Extremities: + edema (2+ pretibial pitting edema) Gastrointestinal (Abdomen): normal bowel sounds, soft, nontender, no hepatosplenomegaly Musculoskeletal: Extremities: no cyanosis Skin: no rashes, warm and dry Neurologic: awake; not confused Results & Data ([facility]) Vital Signs (Past 12 Hours) Vital Signs Temp Pulse Pulse Resp BP BP Pulse Ox 11/19/20 09:15 70 11/19/20 07:38 36.5 C 67 18 180/77 H 97 11/19/20 05:49 186/92 H 11/19/20 04:00 36.5 C 72 18 192/94 H 98 11/19/20 01:09 75 Laboratory Tests 06/04/19 11/19/20 11/19/20 05:48 06:05 06:05 WBC 5.98 Hgb 8.9 L Hct 28.0 L Plt Count 218 Sodium 145 Potassium 3.9 Chloride 115 H Carbon Dioxide 21 BUN 84 H Creatinine 3.42 H 5.65 H* Calcium 7.3 L D Phosphorus 8.1 H 25-OH Vitamin D Total 11/19/20 06:05 WBC Hgb Hct Plt Count Sodium Potassium Chloride Carbon Dioxide BUN Creatinine Calcium Phosphorus 25-OH Vitamin D Total 28.0 L PG Care Time/CCT Total # of Minutes Spent Total Time Spent with Patient: Total time spent is greater than 50% in coordination of care (as documented) at patient's floor/unit and/or counseling patient: Coding Level of Care Code 57637 Inpt Consult Level 5 Diagnoses ESRD (end stage renal disease) N18.6 Hypertension I10 Hypertension type: unspecified Congestive heart disease I50.9 Anemia D64.9 Anemia type: unspecified type Type 2 diabetes mellitus E11.9 Onychomycosis B35.1 (1) Hypertension Hypertension type: unspecified Qualified Code(s): I10 - Essential (primary) hypertension (2) Anemia Anemia type: unspecified type Qualified Code(s): D64.9 - Anemia, unspecified
--- NOTE | 2020-11-19 11:59 | Ultrasound Report ---
RENAL ULTRASOUND HISTORY: Chronic kidney disease. COMPARISON: Abdomen and pelvis CT 11/18/2020. FINDINGS: Right kidney: 9.7 cm. Moderate cortical renal thinning. Normal corticomedullary differentiation. No h ydronephrosis. Left kidney: 10.0 cm. Moderate cortical renal thinning. Normal corticomedullary differentiation. No h ydronephrosis. Bladder: No bladder wall thickening. The bilateral ureteral jets were identified. IMPRESSION: 1. Moderate bilateral cortical renal atrophy, unchanged. 2. No hydronephrosis. ACT 112: Negative or not required by law. Electronically signed by: Duane Baeza M.D. 11/19/2020 11:57 AM
[2020-11-19] MEDS: CALCIUM ACETATE 667 MG CAP/TAB PO SCH ×2 (12:26→17:04)
[2020-11-19] MEDS: NEPHROCAPS PO SCH (12:26)
[2020-11-19 13:02] LABS: Iron 44 mcg/dl (35-150); Transferrin 200 mg/dl (200-360); Transferrin Percent Saturation 16 % (15-50)
--- NOTE | 2020-11-19 14:28 | Electrocardiogram Report ---
Test Reason : Blood Pressure : / mmHG Vent. Rate : 075 BPM Atrial Rate : 075 BPM P-R Int : 160 ms QRS Dur : 076 ms QT Int : 440 ms P-R-T Axes : 050 037 201 degrees QTc Int : 491 ms Normal sinus rhythm Nonspecific T wave abnormality Abnormal ECG When compared with ECG of 31-MAY-2019 15:34, Nonspecific T wave abnormality now evident in Inferior leads Nonspecific T wave abnormality, worse in Lateral leads Confirmed by Peng Dominguez ([id number]) on 11/19/2020 2:28:07 PM Referred By: Shari Talbot Confirmed By:Peng Dominguez
--- NOTE | 2020-11-19 15:23 | Consultation ---
Date of Consultation November 19, 2020 Assessment & Plan (1) ESRD (end stage renal disease): Pt with acutely worsened renal fxn and now requires HD. Pt scheduled for permcath insertion tomorrow. Pt agreeable. History of Present Illness Reason for Consultation: ESRD Attending Physician: Tyler Tineo DO History of Present Illness 65 yo f with hx of DMII, ESRD, CHF, HTN, hyperlipidemia, depression, CKD, admitted with acutely worsening renal fxn, seen in consultation today for permcath insertion for HD. Pt states no hx of HD before. Admits PAYNE and severe orthopnea. Denies ROMERO, fever, chest pain, SOB at rest, abd pain, N/V, rest pain, claudication, other complaints. Allergies Allergy/AdvReac Type Severity Reaction Status Date / Time daptomycin AdvReac sob Verified 11/18/20 18:28 Home Medications Medication Instructions Recorded Confirmed Type cholecalciferol (vitamin D3) 4,000 unit PO DAILY 07/07/18 11/18/20 History [Vitamin D3] Basaglar KwikPen U-100 Insulin 30 unit SUBCUT HS 05/30/19 11/18/20 History coenzyme Q10 [Co Q-10] 100 mg PO QAM 11/18/20 11/18/20 History furosemide 40 mg PO BID 11/18/20 11/18/20 History Patient History Medical History Acquired deformity of right foot Acute osteomyelitis of right ankle or foot Acute respiratory failure with hypoxia Anemia Callus Chronic kidney disease (CKD), stage IV (severe) Closed fracture of distal end of right fibula and tibia Diabetes mellitus with diabetic polyneuropathy Diabetic foot ulcer Diabetic neuropathy Dyslipidemia Foot osteomyelitis, right History of depression Hypertension Posterior capsular opacification Type 2 diabetes mellitus Ulcer of right midfoot Vitamin D deficiency Surgical History History of appendectomy Status post right foot surgery Family History Sister Ovarian cancer Brother Hypertension Social History Smoking Status: Never smoker Second Hand Exposure: No; Hx Alcohol Use: No Hx Substance Use: No Preferred Language: Yoruba 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: Effective 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 Beliefs That Will Affect Care: None marital status: Current Living Situation: Alone Current Living Situation Comment: [facility] currently at rehab but typically lives at home alone current occupational status: retired Other Information That Helps Us Care for You: No Feels Safe at Home: Yes Safety Concerns: Feels Safe At This Time Diet Comment: stated low salt, low carb during the past year weight has: increased > 10 lbs Assistive Devices: Special Shoe Review of Systems Review of Systems: All systems reviewed & are unremarkable except as noted in HPI & below Physical Exam Constitutional: WD/WN, vitals as above + ill appearing, + obese and cooperative; not in distress ENMT: Ears: no hearing impairment Neck: trachea midline Respiratory: normal respiratory effort Auscultation: + diminished lung sounds and + crackles Cardiovascular: Rate/Rhythm: regular rate and regular rhythm Vessels: femoral pulses present and radial pulses present; + abnormal peripheral pulses Extremities: normal capillary refill and + edema Gastrointestinal (Abdomen): normal bowel sounds, soft, nontender, no hepatosplenomegaly Musculoskeletal: no cyanosis or clubbing, extremities motor strength 5/5 Skin: no rashes, warm and dry Neurologic: moves all extremities and awake; no focal motor deficits and not confused Psychiatric: A+Ox3, euthymic affect Results & Data ([facility]) Vital Signs (Past 12 Hours) Vital Signs Temp Pulse Pulse Resp BP BP Pulse Ox 11/19/20 12:03 36.6 C 72 18 174/78 H 92 11/19/20 09:15 70 11/19/20 07:38 36.5 C 67 18 180/77 H 97 11/19/20 05:49 186/92 H 11/19/20 04:00 36.5 C 72 18 192/94 H 98
[2020-11-19 16:51] LABS: Appearance Urine Clear (Clear); Bacteria Urine Automated 1+ (Negative); Bilirubin Urine Negative (Negative); Blood Urine 1+ (Negative); Color Urine Yellow; Epithelial Cell Urine Auto 20-30 /lpf (0-5); Glucose Urine UA 1+ (Negative); Ketones Urine Negative (Negative); Leukocyte Esterase Urine Negative (Negative); Nitrite Urine Negative (Negative); Protein Urine 3+ (Negative); Specific Gravity Urine 1.012 (1.000-1.030); Urobilinogen Urine Negative (Negative)
[2020-11-20] MEDS: hydrALAZINE HCL 25 MG TAB PO SCH ×4 (03:03→20:40)
[2020-11-20] MEDS ORDERED: ceFAZolin 2000MG 2,000 MG/15 ML SYR IV SCH (06:00)
[2020-11-20 06:04] LABS: Hematocrit (blood only) 26.3 % (37-47); Hemoglobin 8.5 g/dL (12.0-16.0); Mean Corpuscular Hemoglobin 30.1 pg (25-34); Mean Corpuscular Hgb Conc 32.3 g/dL (32-36); Mean Corpuscular Volume 93.3 fL (80-100); Mean Platelet Volume 9.8 fL (7.4-10.4); Platelet Count 225 K/uL (130-400); RDW Coefficient of Variation 14.6 % (11.5-14.5); RDW Standard Deviation 49.9 fL (36.4-46.3); Red Blood Count 2.82 M/uL (4.2-5.4); White Blood Count 5.89 K/uL (4.8-10.8)
[2020-11-20 06:09] LABS: INR 1.1 (0.9-1.1); Prothrombin Time 10.9 Seconds (9.0-12.0)
[2020-11-20 06:43] LABS: Albumin Level 3.2 gm/dl (3.4-5.0); BUN Creatinine Ratio 15.2 (10-20); Bilirubin,Total 0.4 mg/dl (0.2-1); Calcium 7.1 mg/dl (8.5-10.1); Est GFR (African American) 7.9 ml/min; Est GFR (Non-African American) 6.8 ml/min; Ferritin 198.2 ng/ml (8-388); Globulin 3.3 gm/dl (2.5-4.0); Potassium 3.7 mmol/L (3.5-5.1); Total Protein 6.5 gm/dl (6.4-8.2)
--- NOTE | 2020-11-20 07:40 | History & Physical Bridge Note ---
Date of Service November 20, 2020 History & Physical Bridge Note Patient for insertion of permcath today. I have discussed the risks options and benefits of the procedure with the patient. The patient understands the risks options and benefits and agrees to the procedure. I have examined the patient, reviewed the History & Physical and in the interval since the performance of the History & Physical I have noted the following changes of clinical significance: no changes noted
[2020-11-20] MEDS: INSULIN ASPART 100 UNITS/ML 3 ML PEN SC SCH ×4 (08:30→20:41)
[2020-11-20] MEDS: INSULIN GLARGINE SOLOSTAR 100 UNITS/ML 3 ML PEN SC SCH (08:30)
[2020-11-20] MEDS ORDERED: fentaNYL citrate 100 MCG/2 ML VIAL ONE (08:32)
[2020-11-20] MEDS ORDERED: MIDAZOLAM HCL 1 MG/ML 2ML VIAL ONE (08:33)
[2020-11-20] MEDS ORDERED: LIDOCAINE 1% LOCAL 20 ML VIAL ONE (08:58)
[2020-11-20] MEDS ORDERED: HEPARIN SOD (PORCINE) 5,000 UNITS/ML VIAL ONE (08:58)
--- NOTE | 2020-11-20 09:02 | Pre Anesthesia Assessment ---
Date of Service November 20, 2020 Pre Sedation Assessment Vital Signs Temp Pulse Pulse Resp BP Pulse Ox 11/20/20 08:55 36.4 C L 73 18 172/72 H 93 11/20/20 08:24 36.8 C 70 19 165/72 H 97 11/20/20 03:14 36.8 C 68 17 160/78 H 96 11/19/20 23:57 68 11/19/20 22:47 36.8 C 71 17 172/79 H 97 11/19/20 19:37 36.7 C 75 18 177/78 H 97 11/19/20 15:22 36.7 C 71 19 151/80 H 93 11/19/20 15:16 67 11/19/20 12:03 36.6 C 72 18 174/78 H 92 11/19/20 09:15 70 Cardiovascular RRR, no murmur, no edema Respiratory normal respiratory effort, lungs clear to auscultation Pre-Sedation Airway Assessment Smoking Status: Never smoker Hx Sleep Apnea: No Short, Thick Neck: Yes Thyromental Distance: < 3.5 Finger Breadths Oral Cavity: + WNL Mallampati Class: III ASA: ASA4 NPO Status Date of Last Intake of Fluids: 11/20/20 Time of Last Intake of Fluids: 04:00 Last Oral Intake of Fluids Comment: sips with meds Date of Last Intake of Solid Food: 11/19/20 Time of Last Intake of Solid Foods: 17:00 Procedure Planning Contraindications for Sedation: none Current Medications Reviewed: Yes Notes The planned sedation has been discussed with the patient. Informed Consent was obtained. I have identified the patient, determined the appropriateness of sedation and have assessed the patient immediately prior to the procedure. All medicine(s) and interventions are by my order.
--- NOTE | 2020-11-20 09:33 | Post Anesthesia Assessment ---
Date of Service November 20, 2020 Post Sedation Assessment Vital Signs Temp Pulse Pulse Resp BP Pulse Ox 11/20/20 09:30 59 L 16 148/59 H 95 11/20/20 09:25 58 L 16 152/64 H 95 11/20/20 09:20 77 16 138/57 L 94 11/20/20 09:15 67 16 177/74 H 97 11/20/20 09:10 71 20 182/78 H 97 11/20/20 08:55 36.4 C L 73 18 172/72 H 93 11/20/20 08:24 36.8 C 70 19 165/72 H 97 11/20/20 08:00 65 11/20/20 03:14 36.8 C 68 17 160/78 H 96 11/19/20 23:57 68 11/19/20 22:47 36.8 C 71 17 172/79 H 97 11/19/20 19:37 36.7 C 75 18 177/78 H 97 11/19/20 15:22 36.7 C 71 19 151/80 H 93 11/19/20 15:16 67 11/19/20 12:03 36.6 C 72 18 174/78 H 92 Recovery Score Activity: Moves 4 extremities Respiration: Deep Breath/Cough Circulation: +/-20% PreAnes Value Consciousness: Fully Awake Oxygen Saturation: > 92% On Room Air Post Anesthesia Score: 10 Discharge Sedation Level of Care: Fast Track Phase II Post Sedation Plan On clinical assessment, the patient appears to have tolerated the sedation without complications. Patient is recovering as anticipated. Patient will continue to be monitored by nursing and may be discharged when sedation discharge criteria are met per below protocol. Upon Completions of procedure up to 15 minutes continue every 5 minute vital signs and the P.A.R. score; then discharge to a Phase I or Fast Track to Phase II per the following guidelines: * Discharge Patient to appropriate Phase II area if PAR is 8 or greater or return to pre- procedure baseline. The post - procedure orders will be as directed. * If PAR score is less than 8 or not return to pre-procedure baseline then patient will follow Phase I monitoring till PAR is reached for Phase II. The Phase I may be done in procedure room or may call to secure a Phase I area. * If naloxone or flumazenil are used for reversal, hold in Phase I for continued monitoring from when last reversal dose was given for a minimum of 60 minutes or longer pending the nurse and/or physician discretion of patient condition before discharge to Phase II. Please call the Sedation Physician to re-evaluate and complete post-note for discharge to Phase II area. Do NOT discharge from procedure sedation or Phase 1 until post- sedation evaluation note is complete by procedure /sedation MD Sedation Discharge Instructions to be given to the patient at discharge to home.
--- NOTE | 2020-11-20 09:33 | Operative Report ---
Post Operative Report Pre & Post Diagnosis Operation Date: 11/20/20 08:45 Pre-Op Diagnosis: Acute Kidney Injury Post-Op Diagnosis: Acute Kidney Injury I identified the patient and participated in the time-out.: Yes Procedure Operation Date: 11/20/20 08:45 Actual Procedures p Insertion of Perm Catheter, Right Jugular Approach, Ultrasound Localization of Right Internal Jugular Vein, Fluoroscopy for Positioning, Moderate Sedation [id number](Right) - Curtis Darby MD Surgeon Curtis Darby MD Catalogue Librarian none Estimated Blood Loss 5 Findings Consistent with Post-Op Diagnosis Specimens none Anesthesia Type RN Sedation Complications none Disposition Accompanied Patient To Recovery: No Disposition: Recovery Room Indications This is a 65-year-old female with acute kidney injury superimposed on chronic renal insufficiency. She is in need of dialysis at this time. Tunneled dialysis catheter was recommended. I have discussed the risks options and benefits of the procedure with the patient. The patient understands the risks options and benefits and agrees to the procedure. Description of Procedure Patient was taken to the angio suite and placed in the supine position. The right side of the neck and chest wall were prepped and draped in a sterile manner. The patient was identified and a timeout performed. Local anesthesia was then administered to the appropriate areas of the neck and chest wall. Ultrasound was then used to locate the right internal jugular vein. The vein compressed easily, had no filing defects, and was patent. The vein was then punctured under direct ultrasound imaging. A guidewire was then passed centrally under fluoroscopic imaging. A stab wound was then made in the anterior chest wall and a 19 cm permcath was passed from the stab wound on the chest wall to the puncture site on the neck. The puncture site was then dilated till the 14Fr peel away sheath was inserted. The permcath was then inserted through the sheath to a central position in the distal superior vena cava. The peel away sheath was then removed. The catheter was then sutured in place using nylon sutures. The puncture was then closed using a 4-0 Vicryl subcuticular suture. Dermabond was used for a dressing on the puncture site. Both ports aspirated and flushed easily and were then packed with heparin. A sterile dressing was applied to the catheter. The patient left the operation room in satisfactory condition and tolerated the procedure well. All needle and sponge counts were correct at the end of the procedure. I attest to the content of the Intraoperative Record and any orders documented therein. Any exceptions are noted below.
[2020-11-20] MEDS ORDERED: IRON SUCROSE 200 MG in SYRINGE 0 ML IV ONE (10:15)
[2020-11-20] MEDS ORDERED: EPOETIN ALFA 10,000 UNITS/ML VIAL IV ONE (10:15)
[2020-11-20] MEDS ORDERED: SODIUM CHLORIDE 0.9% 1000ML 1,000 ML IV PRN (10:15)
[2020-11-20] MEDS: FUROSEMIDE 80 MG in SYRINGE 0 ML IV SCH (10:19)
[2020-11-20] MEDS: CALCIUM ACETATE 667 MG CAP/TAB PO SCH ×3 (10:20→17:15)
[2020-11-20] MEDS: NEPHROCAPS PO SCH (10:20)
[2020-11-20] MEDS: carvediloL 3.125 MG TAB PO SCH ×2 (10:20→20:40)
--- NOTE | 2020-11-20 11:00 | Nephrology Progress Note ---
Date of Service November 20, 2020 Assessment & Plan (1) ESRD (end stage renal disease): * Patient has progressed to ESRD * 11/19/20 Renal US: R 9.7, L 10cm. Moderate cortical thinning bilaterally. No hydronephrosis * R IJ THC placed 11/20/[address] Darby * 1st run HD today, heparin free. Orders placed in EMR and HD RN notified * Orders placed in EMR for 2nd HD treatment in am * Case management consult requested to set up outpatient HD and transportation * nurse staff industrial advised to protect L arm for AVF creation (2) Hypertension: * Agree w/ Carvedilol and Hydralazine for BP management * Amlodipine stopped due to LE swelling (3) Congestive heart disease: * Will change to oral Furosemide today (4) Anemia: * Iron saturarion 16%, ferritin 198 * Will provide RANDY and iron w/ HD today (5) Type 2 diabetes mellitus: * Insulin therapy as per primary service (6) Onychomycosis: * Will consult Podiatry for diabetic foot care and to treat ingrown toe nails Admission and Anticipated Discharge Date Admission Date: November 18, 2020 Subjective Ms. Riley was seen & examined in her hospital room this morning. She had just returned from R IJ THC insertion. She denied dyspnea or angina. Review of Systems Constitutional: + weakness; no fever Eyes: + worsening vision Ear, Nose, Mouth, Throat: no problem reported Respiratory: + dyspnea; no cough Cardiovascular: + edema; no chest pain and no palpitations Gastrointestinal: no abdominal pain, no nausea and no diarrhea/loose stools Genitourinary: no dysuria and no hematuria Musculoskeletal: no back pain Integumentary: no rash Neurologic: no dizziness and no confusion Physical Exam Constitutional: not in distress Eyes: PERRL, conjunctivae normal, anicteric sclerae ENMT: external ear and nose normal, oropharynx normal Neck: trachea midline, no thyromegaly (R IJ THC w/ clean, dry dressing in place) Respiratory: normal respiratory effort Auscultation: + rales Cardiovascular: Rate/Rhythm: regular rate and regular rhythm Extremities: + edema (2+ pretibial pitting edema) Gastrointestinal (Abdomen): normal bowel sounds, soft, nontender, no hepatosplenomegaly Musculoskeletal: Extremities: no cyanosis Skin: no rashes, warm and dry Neurologic: awake; not confused Results & Data ([facility]) Vital Signs (Past 12 Hours) Vital Signs Temp Pulse Pulse Resp BP BP Pulse Ox 11/20/20 10:23 36.9 C 73 18 156/76 H 97 11/20/20 10:00 36.8 C 64 20 129/70 96 11/20/20 09:35 62 18 139/63 92 11/20/20 09:30 59 L 16 148/59 H 95 11/20/20 09:25 58 L 16 152/64 H 95 11/20/20 09:20 77 16 138/57 L 94 11/20/20 09:15 67 16 177/74 H 97 11/20/20 09:10 71 20 182/78 H 97 11/20/20 08:55 36.4 C L 73 18 172/72 H 93 11/20/20 08:24 36.8 C 70 19 165/72 H 97 11/20/20 08:00 65 11/20/20 03:14 36.8 C 68 17 160/78 H 96 11/19/20 23:57 68 Laboratory Tests 11/19/20 11/20/20 11/20/20 06:05 05:29 05:29 WBC 5.89 Hgb 8.5 L Hct 26.3 L Plt Count 225 Sodium 144 Potassium 3.7 Chloride 113 H Carbon Dioxide 20 L BUN 94 H Creatinine 5.99 H* D Glucose 92 Calcium 7.1 L Transferrin % Sat 16 Ferritin 198.2 PG Care Time/CCT Total # of Minutes Spent Total Time Spent with Patient: Total time spent is greater than 50% in coordin ation of care (as documented) at patient's floor/unit and/or counseling patient: Coding Level of Care Code 55569 Subseq Hosp Care Lvl 3 Diagnoses ESRD (end stage renal disease) N18.6 Hypertension I10 Hypertension type: unspecified Congestive heart disease I50.9 Anemia D64.9 Anemia type: unspecified type Type 2 diabetes mellitus E11.9 Onychomycosis B35.1 (1) Hypertension Hypertension type: unspecified Qualified Code(s): I10 - Essential (primary) hypertension (2) Anemia Anemia type: unspecified type Qualified Code(s): D64.9 - Anemia, unspecified
[2020-11-20] MEDS ORDERED: Nursing to Pharmacy 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 SCH (11:30)
[2020-11-20 12:05] LABS: Hepatitis B Surface Ab Quant < 3.10 mIU/mL (>or=10mIU/mL Immune); Hepatitis B Surface Antibody Non-Immune
[2020-11-20 12:16] LABS: Hepatitis B Surf Ag Rflx Conf Neg (Neg)
[2020-11-20] MEDS: HEPARIN SOD 5,000 UNIT/0.5 ML VIAL SQ SCH ×2 (13:57→20:43)
[2020-11-20] MEDS: FUROSEMIDE 40 MG TAB PO SCH (17:15)
--- NOTE | 2020-11-20 18:41 | Hospitalist Progress Note ---
Date of Service November 20, 2020 Assessment & Plan (1) Acute respiratory failure with hypoxia: (2) Stage 5 chronic kidney disease not on chronic dialysis: (3) Pulmonary edema: (4) Type 2 diabetes mellitus: (5) Hypertension: (6) Dyslipidemia: (7) Anemia: Supplemental O2 IV Lasix Nephrology consult Re: ARF on CKD ([place] [facility] as per patient request) Re-initiate Coreg and Amlodipine home medications and titrate accordingly. Add Hydralazine today, Nephro to see. Hold JOSUE inhibitor for now given kidney dysfunction. Patient counseled about importance of complying with medication regimen and regular outpatient follow-up with PCP/specialty providers. Basal insulin, ISS BG goal 1 10-1 40, carb count coverage DVT prophylaxis per Heparin subcu Full code Labs Checked Admission and Anticipated Discharge Date Admission Date: November 18, 2020 Subjective Pt was seen and examined for follow up of SOB Lying in bed with no acute distress She said that her breathing is stable She had her access placed today for HD by vascular Denies any chest pain, palpitation, dizziness Review of Systems Review of Systems: All systems reviewed & are unremarkable except as noted in Subjective Physical Exam Physical Exam: General- No acute distress Head- atraumatic Eyes- PERRL, EOMI, ENT- oropharynx clear Neck- supple, no JVD Lungs- diminished BS Heart- regular rhythm; no murmur Abdomen- normal bowel sounds, soft, nontender Extremities- no calf tenderness, +edema Neuro- alert, oriented x 3; PERRL, EOMI; no facial palsy; no dysarthria Skin- warm & dry Results & Data Results & Data ([facility]) Vital Signs (Past 12 Hours) Vital Signs Temp Pulse Pulse Resp BP BP Pulse Ox 11/20/20 18:04 152/77 H 11/20/20 16:56 36.5 C 71 18 174/75 H 96 11/20/20 15:42 65 11/20/20 11:23 36.9 C 72 18 133/70 96 11/20/20 10:23 36.9 C 73 18 156/76 H 97 11/20/20 10:00 36.8 C 64 20 129/70 96 11/20/20 09:35 62 18 139/63 92 11/20/20 09:30 59 L 16 148/59 H 95 11/20/20 09:25 58 L 16 152/64 H 95 11/20/20 09:20 77 16 138/57 L 94 11/20/20 09:15 67 16 177/74 H 97 11/20/20 09:10 71 20 182/78 H 97 11/20/20 08:55 36.4 C L 73 18 172/72 H 93 11/20/20 08:24 36.8 C 70 19 165/72 H 97 11/20/20 08:00 65 (1) Anemia Anemia type: unspecified type Qualified Code(s): D64.9 - Anemia, unspecified (2) Hypertension Hypertension type: unspecified Qualified Code(s): I10 - Essential (primary) hypertension
[2020-11-21] MEDS: hydrALAZINE HCL 25 MG TAB PO SCH ×2 (03:47→13:49)
[2020-11-21] MEDS: HEPARIN SOD 5,000 UNIT/0.5 ML VIAL SQ SCH ×3 (05:11→20:43)
[2020-11-21] MEDS ORDERED: IRON SUCROSE 200 MG in SYRINGE 0 ML IV ONE (07:00)
[2020-11-21] MEDS ORDERED: EPOETIN ALFA 10,000 UNITS/ML VIAL IV ONE (07:00)
[2020-11-21] MEDS ORDERED: SODIUM CHLORIDE 0.9% 1000ML 1,000 ML IV PRN (07:00)
[2020-11-21 08:16] LABS: Hematocrit (blood only) 26.7 % (37-47); Hemoglobin 8.5 g/dL (12.0-16.0); Mean Corpuscular Hemoglobin 30.5 pg (25-34); Mean Corpuscular Hgb Conc 31.8 g/dL (32-36); Mean Corpuscular Volume 95.7 fL (80-100); Mean Platelet Volume 9.8 fL (7.4-10.4); Platelet Count 217 K/uL (130-400); RDW Coefficient of Variation 14.7 % (11.5-14.5); RDW Standard Deviation 50.8 fL (36.4-46.3); Red Blood Count 2.79 M/uL (4.2-5.4); White Blood Count 6.14 K/uL (4.8-10.8)
[2020-11-21 09:15] LABS: BUN Creatinine Ratio 15.6 (10-20); Calcium 7.3 mg/dl (8.5-10.1); Creatinine Clr Calc Pharmacy 8.4 ml/min; Est GFR (African American) 7.1 ml/min; Est GFR (Non-African American) 6.2 ml/min; Potassium 3.6 mmol/L (3.5-5.1)
[2020-11-21] MEDS: INSULIN ASPART 100 UNITS/ML 3 ML PEN SC SCH ×4 (09:20→20:41)
[2020-11-21] MEDS: INSULIN GLARGINE SOLOSTAR 100 UNITS/ML 3 ML PEN SC SCH (09:20)
--- NOTE | 2020-11-21 12:51 | Nephrology Progress Note ---
Date of Service November 21, 2020 Assessment & Plan (1) ESRD (end stage renal disease): 65-year-old female with ESRD secondary to diabetic nephropathy, admitted with advanced CKD and progressive volume overload and started on dialysis via tunneled dialysis catheter. She eventually go to [facility] for dialysis. Had tunneled dialysis catheter on 11/20/2020 and 1st dialysis treatment 11/21/2020. tolerating dialysis, vital signs stable. Tunneled dialysis catheter functioning well, no sign of infection or bleeding from dialysis catheter site. -- Continue dialysis, UF as tolerated -- increase hydralazine to 50 mg t.i.d. -- Epogen during dialysis today, continue Nephrocaps and phosphate binder -- left arm nephrology precaution for vascular access in future will follow (2) Anemia: (3) Metabolic acidosis: (4) Hypertension: (5) Dyslipidemia: Admission and Anticipated Discharge Date Admission Date: November 18, 2020 Subjective Jeri was seen during dialysis, this is her 1st dialysis treatment, she has been tolerating dialysis well, blood pressure, heart rate has been stable. No bleeding from tunneled dialysis catheter site. Denies fever or chills. No shortness of breath or chest pain. Blood pressure has been elevated. Review of Systems Review of Systems: All systems reviewed & are unremarkable except as noted in Subjective Physical Exam Constitutional: well developed and well nourished; no acute distress Respiratory: normal respiratory effort, lungs clear to auscultation Cardiovascular: RRR, no murmur, no edema Extremities: + edema and + vascular access device ( right IJ tunneled dialysis catheter.) Neurologic: moves all extremities and awake; not confused Psychiatric: A+Ox3, euthymic affect Results & Data ([facility]) Vital Signs (Past 12 Hours) Vital Signs Temp Pulse Pulse Pulse Resp BP BP 11/21/20 12:40 74 181/81 H 11/21/20 12:20 72 163/77 H 11/21/20 12:00 72 144/67 H 11/21/20 11:40 80 183/78 H 11/21/20 11:20 75 174/78 H 11/21/20 11:05 73 158/77 H 11/21/20 10:40 73 177/84 H 11/21/20 10:20 77 183/77 H 11/21/20 10:15 36.5 C 75 11/21/20 08:17 36.5 C 76 20 148/70 H 11/21/20 08:00 68 11/21/20 03:59 36.7 C 70 16 159/72 H Pulse Ox 11/21/20 12:40 11/21/20 12:20 11/21/20 12:00 11/21/20 11:40 11/21/20 11:20 11/21/20 11:05 11/21/20 10:40 11/21/20 10:20 11/21/20 10:15 11/21/20 08:17 93 11/21/20 08:00 11/21/20 03:59 97 PG Care Time/CCT Total # of Minutes Spent Total Time Spent with Patient: Total time spent is greater than 50% in coordination of care (as documented) at patient's floor/unit and/or counseling patient: Coding Level of Care Code 67755 Subseq Hosp Care Lvl 3 Diagnoses ESRD (end stage renal disease) N18.6 Anemia D64.9 Anemia type: unspecified type Metabolic acidosis E87.2 Hypertension I10 Hypertension type: unspecified Dyslipidemia E78.5 (1) Anemia Anemia type: unspecified type Qualified Code(s): D64.9 - Anemia, unspecified (2) Hypertension Hypertension type: unspecified Qualified Code(s): I10 - Essential (primary) hypertension
[2020-11-21] MEDS: CALCIUM ACETATE 667 MG CAP/TAB PO SCH ×3 (13:47→17:11)
[2020-11-21] MEDS: NEPHROCAPS PO SCH (14:18)
[2020-11-21] MEDS: FUROSEMIDE 40 MG TAB PO SCH ×2 (14:18→17:11)
[2020-11-21] MEDS: carvediloL 3.125 MG TAB PO SCH ×2 (14:18→20:43)
[2020-11-21] MEDS: hydrALAZINE TAB 50 MG TAB PO SCH ×2 (14:19→18:05)
--- NOTE | 2020-11-21 19:46 | Hospitalist Progress Note ---
Date of Service November 21, 2020 Assessment & Plan (1) Acute respiratory failure with hypoxia: (2) Pulmonary edema: Present on admission with worsening SOB CXR showed Mild interstitial pulmonary edema and trace bilateral pleural effusions. Received IV lasix x1 Nephrology on board for fluid management Continue Lasix 40mg PO BID Pt had her first HD today Continue oxygen supplement (3) ESRD (end stage renal disease): S/p tunneled dialysis catheter on 11/20/2020 and 1st dialysis treatment 11/21/2020 Renal u/s showed moderate bilateral cortical renal atrophy, unchanged. No hydronephrosis. Nephrology on board Tolerated HD today Continue monitor electrolytes (4) Type 2 diabetes mellitus: Most recent hba1c 7.1 on 11/18/20 On Basaglar 30 units HS outpatient Continue insulin sliding scale and lantus during hospital course (5) Hypertension: Continue lasix 40mg BID and hydralazine 50mg Monitor Blood pressure (6) Anemia: Hgb 8.5 today Received Epogen during dialysis today continue Nephrocaps and phosphate binder DVT px on heparin subq Code Status Full code Admission and Anticipated Discharge Date Admission Date: November 18, 2020 Subjective Pt was seen and examined for follow up of SOB Lying in bed with no distress Pt had her first HD done today and tolerated well She said that her breathing is the same and continues require oxygen supplement Denies any chest pain, palpitation, dizziness and fever Review of Systems Review of Systems: All systems reviewed & are unremarkable except as noted in Subjective Physical Exam Physical Exam: General- No acute distress Head- atraumatic Eyes- PERRL, EOMI, ENT- oropharynx clear Neck- supple, no JVD Lungs- diminished BS Heart- regular rhythm; no murmur Abdomen- normal bowel sounds, soft, nontender Extremities- no calf tenderness, +edema Neuro- alert, oriented x 3; PERRL, EOMI; no facial palsy; no dysarthria Skin- warm & dry Results & Data Results & Data ([facility]) Vital Signs (Past 12 Hours) Vital Signs Temp Pulse Pulse Pulse Resp BP BP 11/21/20 19:14 36.6 C 93 H 19 168/72 H 11/21/20 17:49 83 11/21/20 17:00 36.6 C 81 19 154/65 H 11/21/20 14:30 36.7 C 84 19 203/78 H 11/21/20 14:29 36.5 C 83 193/84 H 11/21/20 13:00 72 182/82 H 11/21/20 12:40 74 181/81 H 11/21/20 12:20 72 163/77 H 11/21/20 12:00 72 144/67 H 11/21/20 11:40 80 183/78 H 11/21/20 11:20 75 174/78 H 11/21/20 11:05 73 158/77 H 11/21/20 10:40 73 177/84 H 11/21/20 10:20 77 183/77 H 11/21/20 10:15 36.5 C 75 11/21/20 08:17 36.5 C 76 20 148/70 H 11/21/20 08:00 68 Pulse Ox 11/21/20 19:14 95 11/21/20 17:49 11/21/20 17:00 96 11/21/20 14:30 96 11/21/20 14:29 11/21/20 13:00 11/21/20 12:40 11/21/20 12:20 11/21/20 12:00 11/21/20 11:40 11/21/20 11:20 11/21/20 11:05 11/21/20 10:40 11/21/20 10:20 11/21/20 10:15 11/21/20 08:17 93 11/21/20 08:00 (1) Anemia Anemia type: unspecified type Qualified Code(s): D64.9 - Anemia, unspecified (2) Hypertension Hypertension type: unspecified Qualified Code(s): I10 - Essential (primary) hypertension
[2020-11-22] MEDS: hydrALAZINE TAB 50 MG TAB PO SCH ×5 (00:19→23:48)
[2020-11-22] MEDS: HEPARIN SOD 5,000 UNIT/0.5 ML VIAL SQ SCH ×3 (05:18→21:24)
[2020-11-22 07:39] LABS: Hematocrit (blood only) 27.8 % (37-47); Hemoglobin 8.6 g/dL (12.0-16.0); Mean Corpuscular Hemoglobin 29.7 pg (25-34); Mean Corpuscular Hgb Conc 30.9 g/dL (32-36); Mean Corpuscular Volume 95.9 fL (80-100); Mean Platelet Volume 9.8 fL (7.4-10.4); Platelet Count 204 K/uL (130-400); RDW Coefficient of Variation 14.8 % (11.5-14.5); RDW Standard Deviation 51.4 fL (36.4-46.3); White Blood Count 6.65 K/uL (4.8-10.8)
[2020-11-22 08:06] LABS: Creatinine Clr Calc Pharmacy 12.3 ml/min; Est GFR (African American) 11.5 ml/min; Est GFR (Non-African American) 9.9 ml/min; Phosphorus 4.7 mg/dl (2.5-4.9); Potassium 3.5 mmol/L (3.5-5.1)
[2020-11-22] MEDS: NEPHROCAPS PO SCH (08:19)
[2020-11-22] MEDS: carvediloL 3.125 MG TAB PO SCH ×2 (08:19→21:23)
[2020-11-22] MEDS: FUROSEMIDE 40 MG TAB PO SCH ×2 (08:19→17:04)
[2020-11-22] MEDS: CALCIUM ACETATE 667 MG CAP/TAB PO SCH ×3 (08:19→17:04)
[2020-11-22] MEDS: INSULIN ASPART 100 UNITS/ML 3 ML PEN SC SCH ×4 (08:20→21:09)
[2020-11-22] MEDS: INSULIN GLARGINE SOLOSTAR 100 UNITS/ML 3 ML PEN SC SCH (08:20)
--- NOTE | 2020-11-22 11:50 | Nephrology Progress Note ---
Date of Service November 22, 2020 Assessment & Plan (1) ESRD (end stage renal disease): 65-year-old female with ESRD secondary to diabetic nephropathy, admitted with advanced CKD and progressive volume overload and started on dialysis via tunneled dialysis catheter. She eventually go to [facility] for dialysis. Had tunneled dialysis catheter on 11/20/2020 and 1st dialysis treatment 11/21/2020. tolerating dialysis, vital signs stable. Tunneled dialysis catheter functioning well, no sign of infection or bleeding from dialysis catheter site. -- Hemodialysis tomorrow for 3.5 hours with 3K bath -- continue hydralazine to 50 mg t.i.d. -- Epogen 02179 units given on 11/21/2020, continue Nephrocaps and phosphate binder -- left arm nephrology precaution for vascular access in future will follow (2) Anemia: * Iron saturarion 16%, ferritin 198 * Will provide RANDY and iron w/ HD today (3) Metabolic acidosis: (4) Hypertension: * Agree w/ Carvedilol and Hydralazine for BP management * Amlodipine stopped due to LE swelling (5) Dyslipidemia: Admission and Anticipated Discharge Date Admission Date: November 18, 2020 Subjective Jeri overall feels well, had breakfast this morning, appetite decent, no shortness of breath or chest pain. She continues to void normally. Tolerated 1st dialysis treatment yesterday. Blood pressure slightly improved. Review of Systems Review of Systems: All systems reviewed & are unremarkable except as noted in Subjective Physical Exam Constitutional: well developed and well nourished; no acute distress Respiratory: normal respiratory effort, lungs clear to auscultation Cardiovascular: RRR, no murmur, no edema Extremities: + edema and + vascular access device ( right IJ tunneled dialysis catheter.) Neurologic: moves all extremities and awake; not confused Psychiatric: A+Ox3, euthymic affect Results & Data ([facility]) Vital Signs (Past 12 Hours) Vital Signs Temp Pulse Pulse Resp BP Pulse Ox 11/22/20 08:00 77 11/22/20 07:38 36.9 C 73 18 149/67 H 96 11/22/20 05:16 127/61 11/22/20 03:37 36.7 C 79 20 131/68 96 PG Care Time/CCT Total # of Minutes Spent Total Time Spent with Patient: Total time spent is greater than 50% in coordination of care (as documented) at patient's floor/unit and/or counseling patient: Coding Level of Care Code 38506 Subseq Hosp Care Lvl 2 Diagnoses ESRD (end stage renal disease) N18.6 Anemia D64.9 Anemia type: unspecified type Metabolic acidosis E87.2 Hypertension I10 Hypertension type: unspecified Dyslipidemia E78.5 (1) Anemia Anemia type: unspecified type Qualified Code(s): D64.9 - Anemia, unspecified (2) Hypertension Hypertension type: unspecified Qualified Code(s): I10 - Essential (primary) hypertension
--- NOTE | 2020-11-22 18:42 | Hospitalist Progress Note ---
Date of Service November 22, 2020 Assessment & Plan (1) Acute respiratory failure with hypoxia: (2) Pulmonary edema: Present on admission with worsening SOB CXR showed Mild interstitial pulmonary edema and trace bilateral pleural effusions. Received IV lasix x1 Nephrology on board for fluid management Continue Lasix 40mg PO BID Plan for hemodialysis tomorrow Continue wean off oxygen (3) ESRD (end stage renal disease): S/p tunneled dialysis catheter on 11/20/2020 and 1st dialysis treatment 11/21/2020 Renal u/s showed moderate bilateral cortical renal atrophy, unchanged. No hydronephrosis. Nephrology on board Plan for hemodialysis tomorrow Continue monitor electrolytes (4) Type 2 diabetes mellitus: Most recent hba1c 7.1 on 11/18/20 On Basaglar 30 units HS outpatient Continue insulin sliding scale and lantus during hospital course (5) Hypertension: Continue lasix 40mg BID and hydralazine 50mg Monitor Blood pressure (6) Anemia: Hgb 8.5 today Received Epogen during dialysis today continue Nephrocaps and phosphate binder DVT px on heparin subq Code Status Full code Admission and Anticipated Discharge Date Admission Date: November 18, 2020 Subjective Patient was seen and examined for follow-up of shortness of breath Lying in bed with no distress watching TV She said that her breathing feels the same Continue to require oxygen supplement Denies any chest pain, palpitation, dizziness, and fever. Review of Systems Review of Systems: All systems reviewed & are unremarkable except as noted in Subjective Physical Exam Physical Exam: General- No acute distress Head- atraumatic Eyes- PERRL, EOMI, ENT- oropharynx clear Neck- supple, no JVD Lungs- diminished BS Heart- regular rhythm; no murmur Abdomen- normal bowel sounds, soft, nontender Extremities- no calf tenderness, +edema Neuro- alert, oriented x 3; PERRL, EOMI; no facial palsy; no dysarthria Skin- warm & dry Results & Data Results & Data ([facility]) Vital Signs (Past 12 Hours) Vital Signs Temp Pulse Pulse Pulse Resp BP Pulse Ox 11/22/20 15:53 36.8 C 76 21 126/71 94 11/22/20 15:35 70 11/22/20 12:26 36.6 C 102 H 18 156/73 H 96 11/22/20 08:00 77 11/22/20 07:38 36.9 C 73 18 149/67 H 96 (1) Anemia Anemia type: unspecified type Qualified Code(s): D64.9 - Anemia, unspecified (2) Hypertension Hypertension type: unspecified Qualified Code(s): I10 - Essential (primary) hypertension
[2020-11-23] MEDS: hydrALAZINE TAB 50 MG TAB PO SCH ×3 (06:36→16:51)
[2020-11-23] MEDS: HEPARIN SOD 5,000 UNIT/0.5 ML VIAL SQ SCH ×3 (06:38→20:28)
[2020-11-23 06:43] LABS: Hematocrit (blood only) 26.5 % (37-47); Hemoglobin 8.2 g/dL (12.0-16.0); Mean Corpuscular Hemoglobin 29.7 pg (25-34); Mean Corpuscular Hgb Conc 30.9 g/dL (32-36); Mean Platelet Volume 9.5 fL (7.4-10.4); Platelet Count 195 K/uL (130-400); RDW Coefficient of Variation 14.7 % (11.5-14.5); RDW Standard Deviation 51.3 fL (36.4-46.3); Red Blood Count 2.76 M/uL (4.2-5.4); White Blood Count 6.59 K/uL (4.8-10.8)
[2020-11-23 07:38] LABS: BUN Creatinine Ratio 10.9 (10-20); Creatinine Clr Calc Pharmacy 9.6 ml/min; Est GFR (African American) 8.5 ml/min; Est GFR (Non-African American) 7.3 ml/min; Potassium 3.6 mmol/L (3.5-5.1)
[2020-11-23] MEDS: INSULIN ASPART 100 UNITS/ML 3 ML PEN SC SCH ×4 (08:07→20:28)
[2020-11-23] MEDS: NEPHROCAPS PO SCH (08:08)
[2020-11-23] MEDS: FUROSEMIDE 40 MG TAB PO SCH ×2 (08:08→16:51)
[2020-11-23] MEDS: CALCIUM ACETATE 667 MG CAP/TAB PO SCH ×3 (08:08→16:51)
[2020-11-23] MEDS: carvediloL 3.125 MG TAB PO SCH ×2 (08:08→20:28)
[2020-11-23] MEDS: INSULIN GLARGINE SOLOSTAR 100 UNITS/ML 3 ML PEN SC SCH (08:09)
--- NOTE | 2020-11-23 10:55 | Nephrology Progress Note ---
Date of Service November 23, 2020 Assessment & Plan (1) ESRD (end stage renal disease): 65-year-old female with ESRD secondary to diabetic nephropathy, admitted with advanced CKD and progressive volume overload and started on dialysis via tunneled dialysis catheter. She eventually will go to [facility] for dialysis. Had tunneled dialysis catheter on 11/20/2020 and 1st dialysis treatment 11/21/2020. tolerating dialysis, vital signs stable. Tunneled dialysis catheter functioning well, no sign of infection or bleeding from dialysis catheter site. -- Hemodialysis today for 3.5 hours with 3K bath -- continue hydralazine 50 mg t.i.d. -- Epogen 09388 units given on 11/21/2020, continue Nephrocaps and phosphate binder -- left arm nephrology precaution for vascular access in future -- ready for DC when outpt HD set up, I have contacted dialysis unit, they are still waiting to make decision regarding chair time. will follow Admission and Anticipated Discharge Date Admission Date: November 18, 2020 Subjective Jeri was seen during HD, tolerating dialysis, vital signs stable. She continues to void normally. Blood pressure better. TDC functioning well. Review of Systems Review of Systems: All systems reviewed & are unremarkable except as noted in Subjective Physical Exam Constitutional: well developed and well nourished; no acute distress Respiratory: normal respiratory effort, lungs clear to auscultation Cardiovascular: RRR, no murmur, no edema Extremities: + edema and + vascular access device ( right IJ tunneled dialysis catheter.) Neurologic: moves all extremities and awake; not confused Psychiatric: A+Ox3, euthymic affect Results & Data ([facility]) Vital Signs (Past 12 Hours) Vital Signs Temp Pulse Pulse Pulse Resp BP BP 11/23/20 10:00 78 149/57 H 11/23/20 09:40 73 119/56 L 11/23/20 09:20 73 117/50 L 11/23/20 09:00 71 127/53 L 11/23/20 08:42 76 131/58 L 11/23/20 08:39 36.9 C 70 11/23/20 08:00 74 11/23/20 06:33 76 156/68 H 11/23/20 04:22 36.9 C 77 18 150/74 H 11/23/20 01:14 79 11/22/20 23:45 36.9 C 76 18 168/68 H Pulse Ox 11/23/20 10:00 11/23/20 09:40 11/23/20 09:20 11/23/20 09:00 11/23/20 08:42 11/23/20 08:39 11/23/20 08:00 11/23/20 06:33 97 11/23/20 04:22 97 11/23/20 01:14 11/22/20 23:45 94 PG Care Time/CCT Total # of Minutes Spent Total Time Spent with Patient: Total time spent is greater than 50% in coordination of care (as documented) at patient's floor/unit and/or counseling patient: Coding Level of Care Code 86763 Subseq Hosp Care Lvl 2 Diagnoses ESRD (end stage renal disease) N18.6
--- NOTE | 2020-11-23 16:58 | Hospitalist Progress Note ---
Date of Service November 23, 2020 Assessment & Plan (1) Acute respiratory failure with hypoxia: (2) Pulmonary edema: Present on admission with worsening SOB CXR showed Mild interstitial pulmonary edema and trace bilateral pleural effusions. Received IV lasix x1 Nephrology on board for fluid management Continue Lasix 40mg PO BID Hemodialysis done today Continue wean off oxygen Will get a nocturnal pulse oximetry tonight Will get a 2 step exercise before discharge tomorrow (3) ESRD (end stage renal disease): S/p tunneled dialysis catheter on 11/20/2020 and 1st dialysis treatment 11/21/2020 Renal u/s showed moderate bilateral cortical renal atrophy, unchanged. No hydronephrosis. Nephrology on board Hemodialysis done today Continue monitor electrolytes (4) Type 2 diabetes mellitus: Most recent hba1c 7.1 on 11/18/20 On Basaglar 30 units HS outpatient Continue insulin sliding scale and lantus during hospital course (5) Hypertension: Continue lasix 40mg BID and hydralazine 50mg Monitor Blood pressure (6) Anemia: Hgb 8.5 today Received Epogen during dialysis today continue Nephrocaps and phosphate binder DVT px on heparin subq Code Status Full code Disposition Plan to discharge tomorrow Admission and Anticipated Discharge Date Admission Date: November 18, 2020 Subjective Pt was seen and examined for follow up of SOB. Lying in bed with no acute distress Pt said that she feels fine. She would like to go home today She said that every night when sleeping, she has been required oxygen supplement She is scheduled for her next HD on Monday Denies any chest pain, palpitation, dizziness and SOB Review of Systems Review of Systems: All systems reviewed & are unremarkable except as noted in Subjective Physical Exam Physical Exam: General- No acute distress Head- atraumatic Eyes- PERRL, EOMI, ENT- oropharynx clear Neck- supple, no JVD Lungs- diminished BS Heart- regular rhythm; no murmur Abdomen- normal bowel sounds, soft, nontender Extremities- no calf tenderness Neuro- alert, oriented x 3; PERRL, EOMI; no facial palsy; no dysarthria Skin- warm & dry Results & Data Results & Data ([facility]) Vital Signs (Past 12 Hours) Vital Signs Temp Pulse Pulse Pulse Resp BP BP 11/23/20 16:00 78 11/23/20 15:59 37.3 C 80 19 158/68 H 11/23/20 12:41 36.8 C 75 19 151/75 H 11/23/20 12:23 36.9 C 71 145/63 H 11/23/20 12:22 71 137/58 L 11/23/20 12:00 71 142/66 H 11/23/20 11:40 70 128/51 L 11/23/20 11:20 73 147/61 H 11/23/20 11:00 81 132/64 11/23/20 10:40 70 114/51 L 11/23/20 10:20 72 129/58 L 11/23/20 10:00 78 149/57 H 11/23/20 09:40 73 119/56 L 11/23/20 09:20 73 117/50 L 11/23/20 09:00 71 127/53 L 11/23/20 08:42 76 131/58 L 11/23/20 08:39 36.9 C 70 11/23/20 08:00 74 11/23/20 06:33 76 156/68 H Pulse Ox 11/23/20 16:00 11/23/20 15:59 97 11/23/20 12:41 98 11/23/20 12:23 11/23/20 12:22 11/23/20 12:00 11/23/20 11:40 11/23/20 11:20 11/23/20 11:00 11/23/20 10:40 11/23/20 10:20 11/23/20 10:00 11/23/20 09:40 11/23/20 09:20 11/23/20 09:00 11/23/20 08:42 11/23/20 08:39 11/23/20 08:00 11/23/20 06:33 97 (1) Anemia Anemia type: unspecified type Qualified Code(s): D64.9 - Anemia, unspecified (2) Hypertension Hypertension type: unspecified Qualified Code(s): I10 - Essential (primary) hypertension
[2020-11-24] MEDS: hydrALAZINE TAB 50 MG TAB PO SCH ×3 (05:29→12:06)
[2020-11-24] MEDS: HEPARIN SOD 5,000 UNIT/0.5 ML VIAL SQ SCH ×2 (05:30→14:20)
[2020-11-24] MEDS: FUROSEMIDE 40 MG TAB PO SCH (08:19)
[2020-11-24] MEDS: carvediloL 3.125 MG TAB PO SCH (08:19)
[2020-11-24] MEDS: NEPHROCAPS PO SCH (08:19)
[2020-11-24] MEDS: CALCIUM ACETATE 667 MG CAP/TAB PO SCH ×2 (08:19→12:06)
[2020-11-24] MEDS: INSULIN GLARGINE SOLOSTAR 100 UNITS/ML 3 ML PEN SC SCH (08:20)
[2020-11-24] MEDS: INSULIN ASPART 100 UNITS/ML 3 ML PEN SC SCH ×2 (08:20→12:06)
--- NOTE | 2020-11-24 10:21 | Nephrology Progress Note ---
Date of Service November 24, 2020 Assessment & Plan (1) ESRD (end stage renal disease): 65-year-old female with ESRD secondary to diabetic nephropathy, admitted with advanced CKD and progressive volume overload and started on dialysis via tunneled dialysis catheter. She eventually will go to [facility] for dialysis. Had tunneled dialysis catheter on 11/20/2020 and 1st dialysis treatment 11/21/2020. tolerating dialysis, vital signs stable. Tunneled dialysis catheter functioning well, no sign of infection or bleeding from dialysis catheter site. Had Hemodialysis yesterday for 3.5 hours with 3K bath. Volume status, BP, electrolyte acceptable. -- HD MWF -- continue hydralazine 50 mg t.i.d. -- Epogen 17378 units given on 11/21/2020, continue Nephrocaps and phosphate binder -- left arm nephrology precaution for vascular access in future -- ready for DC, has outpt HD MWF at 1:30 pm. will follow Admission and Anticipated Discharge Date Admission Date: November 18, 2020 Subjective Jeri has been feeling well, denies SOB. . She continues to void normally. Blood pressure better. TDC functioning well. Electrolyte acceptable. Review of Systems Review of Systems: All systems reviewed & are unremarkable except as noted in Subjective Physical Exam Constitutional: well developed and well nourished; no acute distress Respiratory: normal respiratory effort; no respiratory distress Auscultation: + rales Cardiovascular: RRR, no murmur, no edema Extremities: + vascular access device ( right IJ tunneled dialysis catheter.) Neurologic: moves all extremities and awake; not confused Psychiatric: A+Ox3, euthymic affect Results & Data ([facility]) Vital Signs (Past 12 Hours) Vital Signs Temp Pulse Pulse Pulse Pulse Resp BP 11/24/20 08:03 36.6 C 75 17 144/57 H 11/24/20 08:00 76 11/24/20 03:55 36.7 C 77 20 128/66 11/24/20 03:03 76 11/24/20 01:05 81 11/23/20 23:57 82 11/23/20 23:43 36.8 C 79 20 148/70 H Pulse Ox Pulse Ox 11/24/20 08:03 98 11/24/20 08:00 11/24/20 03:55 97 11/24/20 03:03 98 11/24/20 01:05 99 11/23/20 23:57 11/23/20 23:43 98 PG Care Time/CCT Total # of Minutes Spent Total Time Spent with Patient: Total time spent is greater than 50% in coordination of care (as documented) at patient's floor/unit and/or counseling patient: Coding Level of Care Code 70001 Subseq Hosp Care Lvl 2 Diagnoses ESRD (end stage renal disease) N18.6
--- NOTE | 2020-11-24 12:40 | Hospitalist Progress Note ---
Date of Service November 24, 2020 Assessment & Plan (1) Acute respiratory failure with hypoxia: (2) Pulmonary edema: Present on admission with worsening SOB CXR showed Mild interstitial pulmonary edema and trace bilateral pleural effusions. Received IV lasix x1 Nephrology on board for fluid management Continue Lasix 40mg PO BID Hemodialysis done today Continue wean off oxygen nocturnal pulse oximetry done and pt required 2L NC at night 2 step exercise done an pt required 1 L NC at rest and with ambulation Respiratory therapist said pt told her that she would not wear the oxygen all the time Script given to case management to arrange for the oxygen supplement (3) ESRD (end stage renal disease): S/p tunneled dialysis catheter on 11/20/2020 and 1st dialysis treatment 11/21/2020 Renal u/s showed moderate bilateral cortical renal atrophy, unchanged. No hydronephrosis. Nephrology on board Next HD is schedule for Monday ( her day HD will be on MWF) [facility] Schedule Sheet for November 25 @130PM Continue monitor electrolytes (4) Type 2 diabetes mellitus: Most recent hba1c 7.1 on 11/18/20 On Basaglar 30 units HS outpatient Continue insulin sliding scale and lantus during hospital course (5) Hypertension: Continue lasix 40mg BID and hydralazine 50mg TID Monitor Blood pressure (6) Anemia: Hgb 8.5 Received Epogen during dialysis today continue Nephrocaps and phosphate binder DVT px on heparin subq Code Status Full code Disposition Plan to discharge today Admission and Anticipated Discharge Date Admission Date: November 18, 2020 Subjective Pt was seen and examined for follow up SOB Lying in bed with no distress Pt said that she feels much better today She had a nocturnal pulse oximetry done last night and required 2L oxygen at night 2 step done and required 1 L oxygen with ambulation and at rest Respiratory therapist said pt told her that she would not wear the oxygen all the time Pt said that she feels good to do home today Denies any chest pain, palpitation, dizziness and SOB Review of Systems Review of Systems: All systems reviewed & are unremarkable except as noted in Subjective Physical Exam Physical Exam: General- No acute distress Head- atraumatic Eyes- PERRL, EOMI, ENT- oropharynx clear Neck- supple, no JVD Lungs- diminished BS Heart- regular rhythm; no murmur Abdomen- normal bowel sounds, soft, nontender Extremities- no calf tenderness Neuro- alert, oriented x 3; PERRL, EOMI; no facial palsy; no dysarthria Skin- warm & dry Results & Data Results & Data ([facility]) Vital Signs (Past 12 Hours) Vital Signs Temp Pulse Pulse Pulse Pulse Pulse Pulse 11/24/20 11:51 36.6 C 11/24/20 10:42 77 78 80 78 11/24/20 08:03 36.6 C 75 11/24/20 08:00 76 11/24/20 03:55 36.7 C 11/24/20 03:03 76 11/24/20 01:05 81 Pulse Resp Resp Resp Resp Resp BP 11/24/20 11:51 77 20 127/58 L 11/24/20 10:42 18 18 18 18 11/24/20 08:03 17 144/57 H 11/24/20 08:00 11/24/20 03:55 77 20 128/66 11/24/20 03:03 11/24/20 01:05 Pulse Ox Pulse Ox Pulse Ox Pulse Ox Pulse Ox 11/24/20 11:51 90 11/24/20 10:42 92 91 90 85 L 11/24/20 08:03 98 11/24/20 08:00 11/24/20 03:55 97 11/24/20 03:03 98 11/24/20 01:05 99 (1) Anemia Anemia type: unspecified type Qualified Code(s): D64.9 - Anemia, unspecified (2) Hypertension Hypertension type: unspecified Qualified Code(s): I10 - Essential (primary) hypertension
--- NOTE | 2020-12-09 00:46 | Discharge Summary ---
Date of Service November 24, 2020 Admission HPI Per Admitting Provider Pt is 65 y/o F with PMH CKD V, DM II, HTN, dyslipidemia, TIA, h/o R foot osteomyelitis, anemia presented to ER for BLE edema x1.5 weeks. Patient reports noticing increased lower extremity edema up to her thighs. Denies leg erythema, pain or paresthesias. She reports shortness of breath with exertion for several months which resolves with rest. Reports orthopnea for the past 1.5 years. Patient with history of hospitalization 05/2019 for right foot osteomyelitis, acute hypoxic respiratory failure, fluid overload. She is not followed with PCP or nephrology (Dr. Ambrocio) since 05/2019. She stopped taking aspirin 81 mg, atorvastatin 10 mg, amlodipine 5 mg, Coreg 6.25 mg twice daily. She reports that she has been taking Basaglar 30 units daily and Lasix 40 mg twice daily. Patient reports making urine. He was seen at PCP office today and noted to be hypertensive and hypoxic and was referred to ER for further evaluation. Denies fever/chills, diaphoresis, nausea, vomiting, ROMERO, dizziness, syncope, vision changes, neck pain, CP, palpitations, cough, sore throat, choking, otalgia, rhinorrhea, abdominal pain, rashes, dysuria, hematuria, urinary retention. In ER patient afebrile, P: 70, BP 213/86, noted to be hypoxic to mid 80s on room air. CXR:Mild interstitial pulmonary edema and trace bilateral pleural effusions. Initial troponin negative. Creatinine: 5.6 (was 3.4 in 06/11/2019) Admission Exam Per Admitting Provider General: no distress, overweight Head: normocephalic, atraumatic Eyes: PERRL, EOM's intact, conjunctiva non-injected, anicteric ENT: normal inspection external ears, nose, mucous membranes moist Neck: supple, trachea midline Lungs: On 2L oxygen via NC, sats 98%. R:22. +scattered expiratory wheezing, +rales bases, able to speak in sentences CV: RRR, no murmur, 2+ pretibial edema Abd: normal BS, soft, non-tender Ext: no cyanosis, no erythema, no calf tenderness; right ankle with chronic deformity, left smith with wound, toenails thickened and long; distal pulses palpable Neuro: A&O x 3, no focal deficits noted, normal affect Skin: warm, dry Principal Diagnosis (1) Acute respiratory failure with hypoxia: (2) Pulmonary edema: (3) ESRD (end stage renal disease): (4) Type 2 diabetes mellitus (5) Hypertension: (6) Anemia: Discharge Exam General- No acute distress Head- atraumatic Eyes- PERRL, EOMI, ENT- oropharynx clear Neck- supple, no JVD Lungs- diminished BS Heart- regular rhythm; no murmur Abdomen- normal bowel sounds, soft, nontender Extremities- no calf tenderness Neuro- alert, oriented x 3; PERRL, EOMI; no facial palsy; no dysarthria Skin- warm & dry Discharge Data Allergies Allergy/AdvReac Type Severity Reaction Status Date / Time daptomycin AdvReac sob Verified 12/04/20 15:28 Consultations 11/18/20 20:18 ED Decision to Admit Stat 11/18/20 22:38 Consult Nephrology Routine 11/19/20 10:51 Consult Vascular Surgery Routine 11/19/20 11:17 Consult Podiatry Routine Procedures Performed Operation Date: 11/20/20 08:45 Actual Procedures p Insertion of Perm Catheter, Right Jugular Approach, Ultrasound Localization of Right Internal Jugular Vein, Fluoroscopy for Positioning, Moderate Sedation [id number](Right) - Curtis Darby MD Ordered Studies 11/18/20 16:44 US venous doppler LE BI Urgent 11/18/20 17:51 CT abd pelvis wo con Stat 11/19/20 11:30 US renal/blad retro comp Routine 11/20/20 FL chest 1V frontal Routine XR chest 1V portable HISTORY: Hypertension. COMPARISON: Chest 06/04/2019. FINDINGS: No pneumothorax. Trace bilateral pleural effusions. The heart is mild ly enlarged. There is diffuse interstitial/vascular thickening consistent with mild pulmonary edema. No new focal lung consolidations to suggest pneumonia. Scattered calcified granulomas are again noted. IMPRESSION: Mild interstitial pulmonary edema and trace bilateral pleural effusions. ACT 112: Negative or not required by law. Electronically signed by: Duane Baeza M.D. 11/18/2020 3:56 PM Dictated: 11/18/20 1555Transcribed: 11/18/20 1555 US venous doppler LE BI CLINICAL HISTORY: Bilateral leg edema COMPARISON STUDY: No previous studies for comparison. FINDINGS: Real-time and color flow Doppler imaging were performed. Flow was seen within the femoral, popliteal and calf veins with no intraluminal thrombus demonstrated. The saphenous vein is patent. The common femoral waveforms demonstrate prominent pulsatility. Elevated right heart pressures cannot be excluded IMPRESSION: No evidence of lower extremity DVT. ACT 112: Negative or not required by law. Electronically signed by: Marco Nieto M.D. 11/19/2020 6:56 AM Dictated: 11/19/20655Transcribed: 11/19/20655 CT SCAN OF THE ABDOMEN AND PELVIS WITHOUT IV CONTRAST CLINICAL HISTORY: Acute on chronic renal insufficiency. COMPARISON STUDY: Abdominal CT dated 05/31/2015. TECHNIQUE: CT scan of the abdomen and pelvis is performed from the lung bases to the proximal femora. Images are reviewed in the axial, sagittal, and coronal planes. IV contrast was not administered for this examination. A dose lowering technique was utilized adhering to the principles of ALARA. The examination is modestly degraded by motion artifact. CT DOSE: 960.94 mGycm FINDINGS: Lung bases: The heart is mildly enlarged and without pericardial effusion. There is diminished attenuation of the cardiac blood pool as compared to the myocardium suggesting anemia. There are trace pleural effusions with bibasilar atelectasis. Intralobular septal thickening is noted at the lung bases. There is no airspace consolidation typical for pneumonia. Liver: The unenhanced liver is normal in size, contour, and attenuation. There is no intrahepatic biliary ductal dilatation. Gallbladder: Unremarkable. Spleen: Normal in size and attenuation. Pancreas: The unenhanced pancreas is moderately atrophic and grossly unremarkable. Adrenal glands: A 1.2 cm left adrenal nodule meets CT criteria for a fat- containing adenoma. The right adrenal gland is normal in appearance. Kidneys: The unenhanced kidneys are atrophic and without hydronephrosis. There is a 4 mm nonobstructing calculus in the right upper pole. A punctate nonobstructing calculus is seen in the left kidney. There is no evidence of contour deforming renal mass lesion. Abdominal vasculature: The abdominal aorta is normal in course and caliber noting moderate to advanced atherosclerotic calcification. Bowel: There is moderate colonic diverticulosis without CT evidence of acute diverticulitis. No bowel obstruction is seen. Mild fecal retention is seen throughout the colon. A duodenal diverticulum is incidentally noted. The appendix is not identified and reported surgically absent. Peritoneum: There is no intraperitoneal free air or abdominal ascites. Lymphadenopathy: None. Pelvic viscera: The bladder, uterus, and adnexa are normal as visualized. Skeletal structures: The skeletal structures are osteopenic. There is mild lumbosacral spondylosis. No lytic or blastic lesions are seen. Soft tissues: There is mild body wall edema. IMPRESSION: 1. There are no acute infectious or inflammatory findings in the abdomen or pelvis. 2. The heart is enlarged. There is intralobular septal thickening at the lung bases and trace pleural effusions. These findings suggest congestive failure and clinical correlation will be required. 3. Bilateral nephrolithiasis. 4. Colonic diverticulosis without CT evidence of acute diverticulitis. 5. Additional findings as above. ACT 112: Negative or not required by law. Electronically signed by: Genaro Traylor M.D. 11/18/2020 8:21 PM Dictated: 11/18/202014Transcribed: 11/18/202014 RENAL ULTRASOUND HISTORY: Chronic kidney disease. COMPARISON: Abdomen and pelvis CT 11/18/2020. FINDINGS: Right kidney: 9.7 cm. Moderate cortical renal thinning. Normal corticomedullary differentiation. No hydronephrosis. Left kidney: 10.0 cm. Moderate cortical renal thinning. Normal corticomedullary differentiation. No hydronephrosis. Bladder: No bladder wall thickening. The bilateral ureteral jets were identified. IMPRESSION: 1. Moderate bilateral cortical renal atrophy, unchanged. 2. No hydronephrosis. ACT 112: Negative or not required by law. Electronically signed by: Duane Baeza M.D. 11/19/2020 11:57 AM Dictated: 11/19/20 1156Transcribed: 11/19/20 1156 Hospital Course (1) Acute respiratory failure with hypoxia: (2) Pulmonary edema: (1) Acute respiratory failure with hypoxia: (2) Pulmonary edema: Present on admission with worsening SOB CXR showed Mild interstitial pulmonary edema and trace bilateral pleural effusions. Received IV lasix x1 Nephrology on board for fluid management Continue Lasix 40mg PO BID Hemodialysis done today Continue wean off oxygen nocturnal pulse oximetry done and pt required 2L NC at night 2 step exercise done an pt required 1 L NC at rest and with ambulation Respiratory therapist said pt told her that she would not wear the oxygen all the time Script given to case management to arrange for the oxygen supplement (3) ESRD (end stage renal disease): S/p tunneled dialysis catheter on 11/20/2020 and 1st dialysis treatment 11/21/2020 Renal u/s showed moderate bilateral cortical renal atrophy, unchanged. No hydronephrosis. Nephrology on board Next HD is schedule for Monday ( her day HD will be on MWF) [facility] Schedule Sheet for November 25 @130PM Continue monitor electrolytes (4) Type 2 diabetes mellitus: Most recent hba1c 7.1 on 11/18/20 On Basaglar 30 units HS outpatient Continue insulin sliding scale and lantus during hospital course (5) Hypertension: Continue lasix 40mg BID and hydralazine 50mg TID Monitor Blood pressure (6) Anemia: Hgb 8.5 Received Epogen during dialysis today continue Nephrocaps and phosphate binder DVT px on heparin subq Code Status Full code Disposition Plan to discharge today Total Time Total Time Spent Total Time Spent (In Minutes): 35 minutes Discharge Plan Discharge Items Patient Disposition: Home - Self-Care Reason For Visit: HTN CRISIS Discharge Diagnosis: (1) Acute respiratory failure with hypoxia: (2) Pulmonary edema: (3) ESRD (end stage renal disease): (4) Type 2 diabetes mellitus (5) Hypertension: (6) Anemia: Activity: Resume your previous activity Non-emergency contact: Primary Care Provider and Counselor Supervisor Call non-emergency contact if: you have any medication questions Follow-up/Referrals: Melissa Bronson DO [Primary Care Provider] - (Date & Time 11/30/2020 11:00 AM Provider Rosetta Watts DO Department [facility] ) Diet: Carb Consistent or DM2 Addtl Attending Provider Instructions: Follow up with your primary care provider Dr. Watts on 11/30/2020 at 11:00 AM at the [facility] Follow up with your Nephrology (please call for the appointment) Continue oxygen supplement with 2L NC at night and 1 L NC continuously Fall precaution Your insulin decreased to 15 units since in the hospital you were getting 5 units long acting insulin only Continue monitor your blood sugar and bring your blood sugar log at your next appointment with your provider. Your provider will continue to titrate your insulin Pending Studies at Discharge: No Stand-Alone Forms: My [facility] [address], Smoking Cessation Medications and DC Order Prescriptions: New carvedilol 3.125 mg Tablet 3.125 mg PO BID Qty: 30 RF: 0 hydralazine 50 mg Tablet 50 mg PO TID Qty: 90 RF: 0 calcium acetate(phosphat bind) 667 mg Capsule 667 mg PO TIDM Qty: 90 RF: 0 Renal Caps 1 mg Capsule 1 cap PO QAM Qty: 90 RF: 0 Continued cholecalciferol (vitamin D3) [Vitamin D3] 2,000 unit Capsule 4,000 unit PO QAM RF: 0 furosemide 40 mg tablet 40 mg PO BID RF: 0 coenzyme Q10 [Co Q-10] 100 mg Capsule 100 mg PO QAM RF: 0 Discontinued Basaglar KwikPen U-100 Insulin 100 unit/mL (3 mL) insulin pen 30 unit SUBCUT HS RF: 0 No Action multivitamin Tablet 1 tab PO QAM RF: 0 Basaglar KwikPen U-100 Insulin 100 unit/mL (3 mL) insulin pen 30 unit subcut QAM RF: 0 Discharge Orders: Discharge Order (Routine); Ordered 11/24/20 Ordered By: Martine Miranda/Other Patient Handouts: A1C, Managing Type 2 Diabetes, Hypertension and Kidney Disease Admission Data Admit Date/Time: 11/18/20 21:29 Attending Provider: Martine Christopher Admit Provider: Russ Wells Primary Care Provider: Melissa Bronson Other Providers: Russ Wells ; Pedro Clark ; Curtis Darby ; Mary Penn Other Interventions: Discharge Summary Assessment (RN) Last Done: 11/24/20 13:51
== END 2020-11-24 16:17 | disposition home or self-care (01) | DRG 673 ==
LOC: ED 15:28 → SUATTDRO 21:29 → 2S 21:29
DX: D63.1 Anemia in chronic kidney disease; E11.22 Type 2 diabetes mellitus with diabetic chronic kidney disease; Z79.899 Other long term (current) drug therapy; I16.9 Hypertensive crisis, unspecified; N17.9 Acute kidney failure, unspecified; E87.2 Acidosis; Z79.4 Long term (current) use of insulin; B35.1 Tinea unguium; J96.01 Acute respiratory failure with hypoxia; J81.1 Chronic pulmonary edema; E83.39 Other disorders of phosphorus metabolism; E83.51 Hypocalcemia; I13.11 Hypertensive heart and chronic kidney disease without heart failure, with stage 5 chronic kidney disease, or end stage renal disease; T46.1X6A Underdosing of calcium-channel blockers, initial encounter; Z86.73 Personal history of transient ischemic attack (TIA), and cerebral infarction without residual deficits; N18.6 End stage renal disease; Z88.1 Allergy status to other antibiotic agents; E78.5 Hyperlipidemia, unspecified; Z91.128 Patient's intentional underdosing of medication regimen for other reason; T44.6X6A Underdosing of alpha-adrenoreceptor antagonists, initial encounter; E11.319 Type 2 diabetes mellitus with unspecified diabetic retinopathy without macular edema

== ENCOUNTER 2020-11-27 12:12 | Inpatient (IN) ==
--- NOTE | 2020-11-27 12:29 | XRay Report ---
SINGLE VIEW CHEST CLINICAL HISTORY: Change in mental status. FINDINGS: An AP, portable, upright chest radiograph is compared to study dated 11/18/2020 and correlat ed with chest CT dated 06/04/2019. The examination is degraded by portable technique and apical lordot ic positioning. The right internal jugular central venous catheter is new from previous. The tip proj ects over the SVC. The heart is enlarged. There is pulmonary vascular congestion. Atelectasis is note d at the lung bases. Calcified pleural plaques are similar to previous.. No large pleural effusion or pneumothorax is seen. The skeletal structures are osteopenic. The bony thorax is grossly intact. IMPRESSION: 1. Cardiomegaly with evidence of mild congestive failure. 2. No lobar consolidation is identified. 3. A right internal jugular central venous catheter is new from previous.. ACT 112: Negative or not required by law. Electronically signed by: Genaro Traylor M.D. 11/27/2020 12:28 PM
[2020-11-27 12:30] LABS: Basophils # (auto) 0.01 K/uL (0-0.2); Basophils % (auto) 0.1 %; Eosinophils # (auto) 0.19 K/uL (0-0.5); Eosinophils % (auto) 2.5 %; Hemoglobin 8.6 g/dL (12.0-16.0); Immature Granulocytes # (auto) 0.18 K/uL (0.00-0.02); Immature Granulocytes % (auto) 2.3 %; Lymphocytes # (auto) 1.22 K/uL (1.2-3.4); Lymphocytes % (auto) 15.8 %; Mean Corpuscular Hemoglobin 30.3 pg (25-34); Mean Corpuscular Hgb Conc 31.9 g/dL (32-36); Mean Corpuscular Volume 95.1 fL (80-100); Mean Platelet Volume 10.4 fL (7.4-10.4); Monocytes # (auto) 0.66 K/uL (0.11-0.59); Monocytes % (auto) 8.6 %; Neutrophils # (auto) 5.45 K/uL (1.4-6.5); Neutrophils % (auto) 70.7 %; Platelet Count 118 K/uL (130-400); RDW Coefficient of Variation 14.7 % (11.5-14.5); RDW Standard Deviation 50.7 fL (36.4-46.3); Red Blood Count 2.84 M/uL (4.2-5.4); White Blood Count 7.71 K/uL (4.8-10.8)
[2020-11-27 12:41] LABS: iSTAT Arterial Blood Gas HCO3 29 meg/L (19-24); iSTAT Arterial Blood Gas pCO2 47 mmHg (35-46); iSTAT Arterial Blood Gas pO2 404 mmHg (80-95); iSTAT Carbon Dioxide 31 mmol/L (24-31)
[2020-11-27 12:42] LABS: Partial Thromboplastin Time 26.8 Seconds (21.0-31.0); Prothrombin Time 10.5 Seconds (9.0-12.0)
[2020-11-27] MEDS ORDERED: OPTIRAY 320 125ml IV ONE (12:47)
[2020-11-27 13:01] LABS: Alanine Aminotransferase 58 U/L (12-78); Albumin Level 3.1 gm/dl (3.4-5.0); Alkaline Phosphatase 97 U/L (45-117); Aspartate Aminotransferase 93 U/L (15-37); BUN Creatinine Ratio 9.3 (10-20); Bilirubin Direct 0.2 mg/dl (0-0.2); Bilirubin,Total 0.4 mg/dl (0.2-1); Blood Urea Nitrogen 49 mg/dl (7-18); Calcium 7.4 mg/dl (8.5-10.1); Carbon Dioxide 27 mmol/L (21-32); Chloride 102 mmol/L (98-107); Est GFR (African American) 8.8 ml/min; Est GFR (Non-African American) 7.6 ml/min; Glucose 190 mg/dl (70-99); Magnesium 2.1 mg/dl (1.8-2.4); Potassium 3.3 mmol/L (3.5-5.1); Sodium 137 mmol/L (136-145); Total Protein 6.5 gm/dl (6.4-8.2); Troponin I 0.046 ng/ml (0-0.045)
[2020-11-27 13:05] LABS: iSTAT Blood Urea Nitrogen 45 mg/dl (7-18); iSTAT Carbon Dioxide < 5 mmol/L (24-31); iSTAT Chloride 97 mmol/L (101-112); iSTAT Creatinine 5.9 mg/dl (0.6-1.3); iSTAT Glucose 198 mg/dl (70-99); iSTAT Hematocrit 26 % (37-47); iSTAT Hemoglobin 8.8 g/dl (12.0-16.0); iSTAT Ionized Calcium 1.03 mmol/l (1.12-1.32); iSTAT Potassium 3.3 mmol/L (3.3-5.0); iSTAT Sodium 136 mmol/L (135-144)
--- NOTE | 2020-11-27 13:14 | CT Scan Report ---
CT ANGIOGRAM OF THE CHEST CLINICAL HISTORY: Change in mental status. COMPARISON STUDY: Chest x-ray dated 11/27/2020. Chest CT dated 06/04/2019. TECHNIQUE: Following the IV administration of 119 cc of Optiray 320, CT angiogram of the chest was pe rformed from the upper abdomen to the thoracic inlet utilizing the pulmonary embolus protocol. Images are reviewed in the axial, sagittal, and coronal planes. 3-D MIPS images are created and assessed. I V contrast was administered without complication. A dose lowering technique was utilized adhering to the principles of ALARA. The examination is degraded by motion artifact, as well as by streak artifa ct from the arms which could not be elevated above the chest. CT DOSE: 1396.67 mGy.cm FINDINGS: Thyroid: Normal in size and heterogeneous in attenuation. Thoracic aorta: There is atherosclerotic calcification of the thoracic aorta, which is normal in mariely john and demonstrates standard 3-vessel arch anatomy. No dissection is seen. Pulmonary vasculature: The pulmonary trunk is normal in caliber. There are no filling defects identif ied in main, lobar, or segmental pulmonary branches to suggest pulmonary embolus. Heart: A right internal jugular central venous catheter is in place. The heart is enlarged noting tra ce pericardial effusion. Lungs and pleural spaces: Evaluation of the lung parenchyma is compromised by motion artifact. There is mild diffuse intralobular septal thickening. No pleural effusion is identified. The trachea and ce ntral airways are clear. Mild patchy opacities are present throughout both lungs. Calcified pleural p laque is again seen bilaterally. A 7 mm pulmonary nodule is seen in the right upper lobe on image #[id number]. A 3 mm right lower lobe nodule is seen on image #127. Mediastinum: There is no mediastinal lymphadenopathy. Pebbles: Clear. Axillae: There is no axillary lymphadenopathy. Upper abdomen: There is a small hiatal hernia. A 14 mm left adrenal adenoma is unchanged. Skeletal structures: The skeletal structures are osteopenic. No lytic or blastic bony lesions are see n. IMPRESSION: 1. Streak and motion compromised examination. 2. There is no evidence of pulmonary embolus in the main, lobar, or segmental pulmonary arteries. 3. Cardiomegaly with evidence of congestive failure. 4. Bilateral patchy airspace opacities could represent mild pulmonary edema versus an infectious/infl ammatory pneumonitis. Clinical correlation will required. 5. There are least 2 pulmonary nodules suggested measuring up to 7 mm. These are not well assessed du e to artifact and airspace opacities. A follow-up chest CT in 3 months time is recommended for reasse ssment. 6. Calcified pleural plaques are similar to previous. 7. Additional findings as above. ACT 112: Positive. There are findings on this exam that require communication between the performing entity and the patient following Patient Test Result Information Act ([place] Act 112) guidelines. Electronically signed by: Genaro Traylor M.D. 11/27/2020 1:13 PM
--- NOTE | 2020-11-27 13:27 | CT Scan Report ---
HEAD CT NONCONTRAST CT DOSE: HISTORY: Altered mental status. TECHNIQUE: Multiaxial CT images of the head were performed without the use of intravenous contrast. A utomated exposure control was utilized for this study. A dose lowering technique was utilized adheri ng to the principles of ALARA. Comparison: None. Findings: Mild mucosal thickening within the right maxillary sinus. Trace left mastoid effusion. The calvarium and skull base are intact. The ventricles and sulci are within normal limits. There is no m ass, hematoma, midline shift, or acute infarct. Impression: No acute intracranial abnormality. ACT 112: Negative or not required by law. Electronically signed by: Duane Baeza M.D. 11/27/2020 1:26 PM
--- NOTE | 2020-11-27 13:28 | Emergency Department Note ---
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 Per EMS the patient was about to start her dialysis when she went into cardiac arrest. Bystander CPR was performed. 0 shocks were delivered. 0 medications were given. EMS reports when they got there the patient had a pulse and a blood pressure was satting at 60% on room air. The patient was placed on nonrebreather. Patient is alert right now and states she does not know what happened. Home Medications Medication Instructions Recorded Confirmed Type cholecalciferol (vitamin D3) 4,000 unit PO DAILY 07/07/18 11/18/20 History [Vitamin D3] coenzyme Q10 [Co Q-10] 100 mg PO QAM 11/18/20 11/18/20 History furosemide 40 mg PO BID 11/18/20 11/18/20 History B complex with C 20-folic acid 1 cap PO QAM #90 cap 11/24/20 Rx [Renal Caps] Basaglar KwikPen U-100 Insulin 15 unit SUBCUT HS #0 ml 11/24/20 11/18/20 Rx calcium acetate(phosphat bind) 667 mg PO TIDM #90 cap 11/24/20 Rx carvedilol 3.125 mg PO BID #30 tab 11/24/20 Rx hydralazine 50 mg PO TID #90 tab 11/24/20 Rx Allergies Allergy/AdvReac Type Severity Reaction Status Date / Time daptomycin AdvReac sob Verified 11/18/20 18:28 Past Med/Surg History Medical History Acquired deformity of right foot Acute osteomyelitis of right ankle or foot Acute respiratory failure with hypoxia Anemia Callus Chronic kidney disease (CKD), stage IV (severe) Closed fracture of distal end of right fibula and tibia Diabetes mellitus with diabetic polyneuropathy Diabetic foot ulcer Diabetic neuropathy Dyslipidemia Foot osteomyelitis, right History of depression Hypertension Posterior capsular opacification Type 2 diabetes mellitus Ulcer of right midfoot Vitamin D deficiency Surgical History History of appendectomy Status post right foot surgery Family History Sister Ovarian cancer Brother Hypertension Social History Smoking Status: Unknown if ever smoked Second Hand Exposure: No; Hx Alcohol Use: No Hx Substance Use: No Preferred Language: Faroese 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: Effective Non Destructive Testing Specialist Required: No Beliefs That Will Affect Care: None marital status: Current Living Situation: Alone Current Living Situation Comment: [facility] currently at rehab but typically lives at home alone current occupational status: retired Feels Safe at Home: Yes Diet Comment: stated low salt, low carb during the past year weight has: increased > 10 lbs Assistive Devices: Oxygen - Continuous Review of Systems A total of 10 systems reviewed and were otherwise negative Physical Exam Vital Signs: Vital Signs - 24 hr 11/27/20 12:16 11/27/20 12:17 11/27/20 12:23 Temperature 36.6 C Temperature Source Oral Pulse Rate 73 73 Pulse Rate from Sp O2 Sensor 73 Respiratory Rate 24 Respiratory Effort / Characteristics Non-Labored Sponta neous Respiratory Depth Normal Respiratory Patter n Regular Blood Pressure 181/81 H 181/81 H Blood Pressure Cecily n 114 114 Blood Pressure Pos ition Sitting Pulse Oximetry 100 100 100 Oxygen Delivery Me thod Non-rebreather Non-rebreather Non-rebreather Oxygen Flow Rate 15 15 15 Sepsis Recent Feve r Within 48 Hours No Sepsis New/Unexpla ined Change in Men tripp Status No Sepsis Action Take n by Nursing No Action Required Oxygen Flow Rate - Titration Pulse Oximetry Pos t Tiitration 11/27/20 13:01 11/27/20 13:04 Temperature Temperature Source Pulse Rate 68 Pulse Rate from Sp O2 Sensor 68 Respiratory Rate Respiratory Effort / Characteristics Respiratory Depth Respiratory Patter n Blood Pressure 131/52 L Blood Pressure Cecily n 78 Blood Pressure Pos ition Pulse Oximetry 98 100 Oxygen Delivery Me thod Nasal Cannula Non-rebreather Oxygen Flow Rate 4 15 Sepsis Recent Feve r Within 48 Hours Sepsis New/Unexpla ined Change in Men tripp Status Sepsis Action Take n by Nursing Oxygen Flow Rate - Titration 4 Pulse Oximetry Pos t Tiitration 98 Physical Exam: Physical Exam HENT: Exam performed. -Head: Normocephalic and atraumatic. -Right Ear: External ear normal. No mastoid tenderness. -Left Ear: External ear normal. No mastoid tenderness. -Mouth/Throat: The oropharynx is clear and moist. No trismus in the jaw. No dental abscesses or uvula swelling. No oropharyngeal exudate or tonsillar abscesses. EYES: Left pupil 2 mm right pupil 3 mm CV: Normal rate, regular rhythm, normal heart sounds and intact distal pulses. There is no peripheral edema. Palpable radial pulses bue. PULM/CHEST: Rhonchi bilaterally. -Chest Wall: She exhibits no tenderness. No crepitus bilaterally. Permacath in the right chest. ABD: The abdomen is soft. NEURO: GCS eye subscore is 3. GCS verbal subscore is 4. GCS motor subscore is 6. SKIN: Skin is warm and dry. She is not diaphoretic. PSYCH: She has a normal mood and affect. Behavior is normal. Judgment and thought content normal. Course Course 1215: The patient was evaluated in room B180. A complete history and physical exam was performed Cardiac monitoring: An order was placed for continuous cardiac monitoring. The monitor shows a rate of 70 with sinus rhythm Administered Medications Discontinued Medications Ioversol (Optiray 320 125ml) 119 ml IV ONCE ONE Stop: 11/27/20 12:48 Last Admin: 11/27/20 12:48 Dose: 119 ml Documented by: [id number] Medical Decision Making Laboratory Data Result diagrams: 11/27/20 12:17 11/27/20 12:17 Lab Results 11/27/20 11/27/20 11/27/20 Range/Units 12:17 12:17 12:17 WBC 7.71 (4.8-10.8) K/uL RBC 2.84 L (4.2-5.4) M/uL Hgb 8.6 L (12.0-16.0) g/dL POC Hgb (12.0-16.0) g/dl Hct 27.0 L (37-47) % POC Hct (37-47) % MCV 95.1 (80-100) fL MCH 30.3 (25-34) pg MCHC 31.9 L (32-36) g/dL RDW Std Deviation 50.7 H (36.4-46.3) fL RDW Coeff of Rico 14.7 H (11.5-14.5) % Plt Count 118 L (130-400) K/uL MPV 10.4 (7.4-10.4) fL Immature Gran % (Auto) 2.3 % Neut % (Auto) 70.7 % Lymph % (Auto) 15.8 % [place] % (Auto) 8.6 % Eos % (Auto) 2.5 % Baso % (Auto) 0.1 % Neut # (Auto) 5.45 (1.4-6.5) K/uL Lymph # (Auto) 1.22 (1.2-3.4) K/uL [place] # (Auto) 0.66 H (0.11-0.59) K/uL Eos # (Auto) 0.19 (0-0.5) K/uL Baso # (Auto) 0.01 (0-0.2) K/uL Immature Gran # (Auto) 0.18 H (0.00-0.02) K/uL PT 10.5 (9.0-12.0) Seconds INR 1.0 (0.9-1.1) APTT 26.8 (21.0-31.0) Seconds PTT Ratio 1.0 POC pH (7.35-7.45) POC pCO2 (35-46) mmHg POC pO2 (80-95) mmHg POC HCO3 (19-24) aura/L POC Total CO2 (24-31) mmol/L POC Base Excess (-9-1.8) aura/L POC ABG O2 Sat (90-95) % POC Sodium (135-144) mmol/L Sodium 137 (136-145) mmol/L POC Potassium (3.3-5.0) mmol/L Potassium 3.3 L (3.5-5.1) mmol/L POC Chloride (101-112) mmol/L Chloride 102 (98-107) mmol/L Carbon Dioxide 27 (21-32) mmol/L Anion Gap 8.0 (3-11) POC Anion Gap POC BUN (7-18) mg/dl BUN 49 H (7-18) mg/dl Creatinine 5.45 H* (0.6-1.2) mg/dl POC Creatinine (0.6-1.3) mg/dl Est Cr Clr Drug Dosing Not Reportable Est GFR ( Amer) 8.8 ml/min Est GFR (Non-Af Amer) 7.6 ml/min BUN/Creatinine Ratio 9.3 L (10-20) Glucose 190 H (70-99) mg/dl POC Glucose (70-99) mg/dl POC Glucose (other) (70-99) mg/dl Calcium 7.4 L (8.5-10.1) mg/dl POC Ioniz Calcium Chely (1.12-1.32) mmol/l Magnesium 2.1 (1.8-2.4) mg/dl Total Bilirubin 0.4 (0.2-1) mg/dl Direct Bilirubin 0.2 (0-0.2) mg/dl AST 93 H (15-37) U/L ALT 58 (12-78) U/L Alkaline Phosphatase 97 (45-117) U/L Troponin I 0.046 H* (0-0.045) ng/ml Total Protein 6.5 (6.4-8.2) gm/dl Albumin 3.1 L (3.4-5.0) gm/dl 11/27/20 11/27/20 11/27/20 Range/Units 12:28 12:28 12:30 WBC (4.8-10.8) K/uL RBC (4.2-5.4) M/uL Hgb (12.0-16.0) g/dL POC Hgb 8.8 L (12.0-16.0) g/dl Hct (37-47) % POC Hct 26 L (37-47) % MCV (80-100) fL MCH (25-34) pg MCHC (32-36) g/dL RDW Std Deviation (36.4-46.3) fL RDW Coeff of Rico (11.5-14.5) % Plt Count (130-400) K/uL MPV (7.4-10.4) fL Immature Gran % (Auto) % Neut % (Auto) % Lymph % (Auto) % [place] % (Auto) % Eos % (Auto) % Baso % (Auto) % Neut # (Auto) (1.4-6.5) K/uL Lymph # (Auto) (1.2-3.4) K/uL [place] # (Auto) (0.11-0.59) K/uL Eos # (Auto) (0-0.5) K/uL Baso # (Auto) (0-0.2) K/uL Immature Gran # (Auto) (0.00-0.02) K/uL PT (9.0-12.0) Seconds INR (0.9-1.1) APTT (21.0-31.0) Seconds PTT Ratio POC pH 7.40 (7.35-7.45) POC pCO2 47 H (35-46) mmHg POC pO2 404 H (80-95) mmHg POC HCO3 29 H (19-24) aura/L POC Total CO2 31 < 5 L* (24-31) mmol/L POC Base Excess 5.0 H (-9-1.8) aura/L POC ABG O2 Sat 100.0 H (90-95) % POC Sodium 136 (135-144) mmol/L Sodium (136-145) mmol/L POC Potassium 3.3 (3.3-5.0) mmol/L Potassium (3.5-5.1) mmol/L POC Chloride 97 L (101-112) mmol/L Chloride (98-107) mmol/L Carbon Dioxide (21-32) mmol/L Anion Gap (3-11) POC Anion Gap TNP POC BUN 45 H (7-18) mg/dl BUN (7-18) mg/dl Creatinine (0.6-1.2) mg/dl POC Creatinine 5.9 H* (0.6-1.3) mg/dl Est Cr Clr Drug Dosing Est GFR ( Amer) ml/min Est GFR (Non-Af Amer) ml/min BUN/Creatinine Ratio (10-20) Glucose (70-99) mg/dl POC Glucose 182 H (70-99) mg/dl POC Glucose (other) 198 H (70-99) mg/dl Calcium (8.5-10.1) mg/dl POC Ioniz Calcium Chely 1.03 L (1.12-1.32) mmol/l Magnesium (1.8-2.4) mg/dl Total Bilirubin (0.2-1) mg/dl Direct Bilirubin (0-0.2) mg/dl AST (15-37) U/L ALT (12-78) U/L Alkaline Phosphatase (45-117) U/L Troponin I (0-0.045) ng/ml Total Protein (6.4-8.2) gm/dl Albumin (3.4-5.0) gm/dl Imaging Data Radiologist's Impression: Chest X-Ray 11/27/20 12:16 SINGLE VIEW CHEST CLINICAL HISTORY: Change in mental status. FINDINGS: An AP, portable, upright chest radiograph is compared to study dated 11/18/2020 and correlated with chest CT dated 06/04/2019. The examination is degraded by portable technique and apical lordotic positioning. The right internal jugular central venous catheter is new from previous. The tip projects over the SVC. The heart is enlarged. There is pulmonary vascular congestion. Atelectasis is noted at the lung bases. Calcified pleural plaques are similar to previous.. No large pleural effusion or pneumothorax is seen. The skeletal structures are osteopenic. The bony thorax is grossly intact. IMPRESSION: 1. Cardiomegaly with evidence of mild congestive failure. 2. No lobar consolidation is identified. 3. A right internal jugular central venous catheter is new from previous.. ACT 112: Negative or not required by law. Electronically signed by: Genaro Traylor M.D. 11/27/2020 12:[address] 11/27/20 12:[address] DOSE: HISTORY: Altered mental status. TECHNIQUE: Multiaxial CT images of the head were performed without the use of intravenous contrast. Automated exposure control was utilized for this study. A dose lowering technique was utilized adhering to the principles of ALARA. Comparison: None. Findings: Mild mucosal thickening within the right maxillary sinus. Trace left mastoid effusion. The calvarium and skull base are intact. The ventricles and sulci are within normal limits. There is no mass, hematoma, midline shift, or acute infarct. Impression: No acute intracranial abnormality. ACT 112: Negative or not required by law. Electronically signed by: Duane Baeza M.D. 11/27/2020 1:26 PM Chest CTA 11/27/20 12:22 CT ANGIOGRAM OF THE CHEST CLINICAL HISTORY: Change in mental status. COMPARISON STUDY: Chest x-ray dated 11/27/2020. Chest CT dated 06/04/2019. TECHNIQUE: Following the IV administration of 119 cc of Optiray 320, CT angiogram of the chest was performed from the upper abdomen to the thoracic inlet utilizing the pulmonary embolus protocol. Images are reviewed in the axial, sagittal, and coronal planes. 3-D MIPS images are created and assessed. IV contrast was administered without complication. A dose lowering technique was utilized adhering to the principles of ALARA. The examination is degraded by motion artifact, as well as by streak artifact from the arms which could not be elevated above the chest. CT DOSE: 1396.67 mGy.cm FINDINGS: Thyroid: Normal in size and heterogeneous in attenuation. Thoracic aorta: There is atherosclerotic calcification of the thoracic aorta, which is normal in caliber and demonstrates standard 3-vessel arch anatomy. No dissection is seen. Pulmonary vasculature: The pulmonary trunk is normal in caliber. There are no filling defects identified in main, lobar, or segmental pulmonary branches to suggest pulmonary embolus. Heart: A right internal jugular central venous catheter is in place. The heart is enlarged noting trace pericardial effusion. Lungs and pleural spaces: Evaluation of the lung parenchyma is compromised by motion artifact. There is mild diffuse intralobular septal thickening. No pleural effusion is identified. The trachea and central airways are clear. Mild patchy opacities are present throughout both lungs. Calcified pleural plaque is again seen bilaterally. A 7 mm pulmonary nodule is seen in the right upper lobe on image #169. A 3 mm right lower lobe nodule is seen on image #127. Mediastinum: There is no mediastinal lymphadenopathy. Pebbles: Clear. Axillae: There is no axillary lymphadenopathy. Upper abdomen: There is a small hiatal hernia. A 14 mm left adrenal adenoma is unchanged. Skeletal structures: The skeletal structures are osteopenic. No lytic or blastic bony lesions are seen. IMPRESSION: 1. Streak and motion compromised examination. 2. There is no evidence of pulmonary embolus in the main, lobar, or segmental pulmonary arteries. 3. Cardiomegaly with evidence of congestive failure. 4. Bilateral patchy airspace opacities could represent mild pulmonary edema versus an infectious/inflammatory pneumonitis. Clinical correlation will required. 5. There are least 2 pulmonary nodules suggested measuring up to 7 mm. These are not well assessed due to artifact and airspace opacities. A follow-up chest CT in 3 months time is recommended for reassessment. 6. Calcified pleural plaques are similar to previous. 7. Additional findings as above. ACT 112: Positive. There are findings on this exam that require communication between the performing entity and the patient following Patient Test Result Information Act ([place] Act 112) guidelines. Electronically signed by: Genaro Traylor M.D. 11/27/2020 1:13 PM ECG Data Indication: altered mental status Rate (beats per minute): 74 Rhythm: normal sinus Findings: no ST depression, no ST elevation and no prolonged QT MDM Narrative Vital signs stable. Labs at baseline with a creatinine of 5.45 troponin of 0.046. EKG is totally within normal limits no ST segment changes. Imaging is within normal limits. No ICH no PE. Is not thought that the troponin elevation is due to any acute coronary blockage as EKG is within normal limits and the patient was due for dialysis today. It is unclear if the patient truly had a cardiac arrest or if she just had a syncopal episode. Again no medications were given and no defibrillations were delivered and the patient had a pulse on EMS arrival. Discussed the case with the [facility] hospitalist team Yenny EPPS stated to admit to Dr. Horton Impression & Plan Syncope and collapse Discharge Plan Visit Data Chief Complaint: Cardiac Assessment ED Provider: Jerry Mckenzie Discharge Problem: Syncope and collapse Patient Disposition: Being Evaluated by Hospitalist Forms Stand Alone Forms: My [facility] [employer] Prescriptions Prescriptions: No Action cholecalciferol (vitamin D3) [Vitamin D3] 2,000 unit Capsule 4,000 unit PO DAILY RF: 0 furosemide 40 mg tablet 40 mg PO BID RF: 0 coenzyme Q10 [Co Q-10] 100 mg Capsule 100 mg PO QAM RF: 0 carvedilol 3.125 mg Tablet 3.125 mg PO BID Qty: 30 RF: 0 hydralazine 50 mg Tablet 50 mg PO TID Qty: 90 RF: 0 calcium acetate(phosphat bind) 667 mg Capsule 667 mg PO TIDM Qty: 90 RF: 0 Renal Caps 1 mg Capsule 1 cap PO QAM Qty: 90 RF: 0 Basaglar KwikPen U-100 Insulin 100 unit/mL (3 mL) insulin pen 15 unit SUBCUT HS Qty: 0 RF: 0 Referrals Referrals: Melissa Bronson DO [Primary Care Provider] -
--- NOTE | 2020-11-27 13:46 | History & Physical Report ---
Date of Service November 27, 2020 Assessment & Plan (1) Cardiac arrest: -Admit to PCU for observation -Unsure if the patient had jose antonio cardiac arrest vs a syncopal/hypoxic episode as she was not wearing oxygen from leaving her house to HD until approximately 11:30 AM. - Underwent CPR for 6 to 8 minutes inappropriately as she is a DNR/DNI per her paperwork, confirmed with patient herself, and her family who is present at bedside ( brother, sister, niece) - fortunately it does not appear there are any broken ribs on CTA or CXR. Monitor closely. Developing ecchymosis over the chest wall. -Did not require defibrillation or IV meds at bedside during possible cardiac arrest -Troponin mildly elevated at 0.047, trend x2 more sets - likely elevated due to ESRD vs ACS. -Daily EKGs -Check 2 D echo -Electrolytes are within normal limits, except for potassium which we will replace -Consider cardiology consult (2) ESRD (end stage renal disease): -Recently started HD, MWF, [facility] Previously followed with Dr. Penn with nephrology with during her hospitalization, will consult nephrology for HD. -Creatinine/BUN elevated at 5.45/49 respectively -R jugular perma cath in place placed during last admission by Dr. Darby. (3) Congestive heart disease: - Chronic, diastolic - Nephrology consult for fluid management - Continue Lasix 40mg PO BID - Hemodialysis initiated today around ~1130, family was called around noon of the event, unsure the amount of fluid pulled off. Scheduled for 3.5 hours. - cont o2-during last admission, nocturnal pulse oximetry done and pt required 2L NC at night, 2 step exercise done an pt required 1 L NC at rest and with ambulation. Patient also noted that she would not wear oxygen at all times per respiratory therapist. (4) Hypertension: - Continue carvedilol 3.125 mg BID, lasix 40mg BID and hydralazine 50mg TID (5) Dyslipidemia: - Cont coenzyme Q10 (6) Type 2 diabetes mellitus: - Most recent ha1c 7.1 on 11/18/20 - On Basaglar 20 U Qam per pt, med rec shows 15 U HS - consult glycemic pharmacy - Continue insulin sliding scale and lantus during hospital course (7) Diabetic neuropathy: - Chronic (8) Hypokalemia: - Potassium 3.3, will replace with 40 meq PO. Monitor with am BMP. (9) Anemia: - Hgb 8.6 - Received Epogen on 11/24/20 - continue Nephrocaps and phosphate binder DVT ppx: - teds, scds CODE: DNR/DNI Dispo: From home, likely to remain in the hospital x 1-2 days History of Present Illness Primary Care Provider: Melissa Bronson DO This is a 65-year-old female with PMHx of ESRD on HD MWF, chronic congestive heart disease, HTN, HLD, DM type II, diabetic neuropathy, anemia who presents from [facility] for a c/o of having cardiac arrest. Staff performed cardiac arrest with chest compressions. She did not loose a pulse, and once EMS arrived, did not require shock or IV medications. She was able to talk to EMS on arrival. She is talking to staff here in the ER. Vitals are stable. Troponin is mildly elevated at 0.046. There are not changes on her EKG. Today was her second outpatient HD session. Jeri reports feeling "horrible" and hurts everywhere. She remembers being at dialysis and thinks that she was hooked up at 11:45, and it was right around noon when her family was called after the event. Patient cannot recall anything specifically until she woke up in an ambulance en route here. She wears oxygen 2 L chronically which was started after her last admission, feels like her breathing is okay currently. Patient notes that she did NOT take oxygen with her to dialysis as she does not have a portable tank. Patient was found to be hypoxic with O2 sats at 60% while at dialysis, and does not remember being placed on oxygen when she arrived. She is also noted as a DNR/DNI on the documentation notes that were sent to the hospital. Per documentation, she underwent CPR for 6 to 8 minutes there, it was not continued once EMS arrived as she was awake and talking when they got ot the scene. Patient was recently here at [facility] for hospitalization secondary to acute respiratory failure with hypoxia. During that time she was diagnosed with acute renal failure requiring dialysis. Patient's hospital stay was from 11/18/2020 through 11/24/2020. During that time underwent insertion of perma catheter in the right jugular by Dr. Darby on 11/20/2020. She was followed by nephrology, Dr. Penn, during that time. Allergies Allergy/AdvReac Type Severity Reaction Status Date / Time daptomycin AdvReac sob Verified 11/27/20 13:55 Home Medications Medication Instructions Recorded Confirmed Type cholecalciferol (vitamin D3) 4,000 unit PO DAILY 07/07/18 11/27/20 History [Vitamin D3] coenzyme Q10 [Co Q-10] 100 mg PO QAM 11/18/20 11/27/20 History furosemide 40 mg PO BID 11/18/20 11/27/20 History B complex with C 20-folic acid 1 cap PO QAM #90 cap 11/24/20 11/27/20 Rx [Renal Caps] calcium acetate(phosphat bind) 667 mg PO TIDM #90 cap 11/24/20 11/27/20 Rx carvedilol 3.125 mg PO BID #30 tab 11/24/20 11/27/20 Rx hydralazine 50 mg PO TID #90 tab 11/24/20 11/27/20 Rx Basaglar KwikPen U-100 Insulin 20 unit SUBCUT QAM 11/27/20 11/27/20 History multivitamin 1 tab PO QAM 11/27/20 11/27/20 History Past Med/Surg History Medical History Acquired deformity of right foot Acute osteomyelitis of right ankle or foot Acute respiratory failure with hypoxia Anemia Callus Chronic kidney disease (CKD), stage IV (severe) Closed fracture of distal end of right fibula and tibia Diabetes mellitus with diabetic polyneuropathy Diabetic foot ulcer Diabetic neuropathy Dyslipidemia Foot osteomyelitis, right History of depression Hypertension Posterior capsular opacification Type 2 diabetes mellitus Ulcer of right midfoot Vitamin D deficiency Surgical History History of appendectomy Status post right foot surgery Family History Sister Ovarian cancer Brother Hypertension Social History Smoking Status: Unknown if ever smoked Second Hand Exposure: No; Hx Alcohol Use: No Hx Substance Use: No Preferred Language: Citizen Of [place] 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: Effective Business Performance Manager Required: No Beliefs That Will Affect Care: None marital status: Current Living Situation: Alone Current Living Situation Comment: [facility] currently at rehab but typically lives at home alone current occupational status: retired Feels Safe at Home: Yes Diet Comment: stated low salt, low carb during the past year weight has: increased > 10 lbs Assistive Devices: Oxygen - Continuous Review of Systems Review of Systems: Constitutional: No fever, sweats or chills, see HPI. Eyes: No diplopia, no worsening or blurred vision ENT: normal hearing, no trouble swallowing Respiratory: No cough, sputum, dyspnea at rest or on exertion Cardiovascular:+ chest pain s/p compressions, no pressure or palpitations Abdomen: No pain, nausea, vomiting, diarrhea or constipation, last BM today : makes urine several times daily Musculoskeletal: No joint pain, calf pain, swelling Neurologic: No weakness, numbness/tingling, or balance problems Psychiatric: No anxiety or depression Skin: No rash or itch Physical Exam Physical Exam: General: awake, alert, appears uncomfortable, answers all questions appropriately. Head: Normocephalic, atraumatic ENT: PERRL, EOMI, no pharyngeal exudate, mucous membranes moist Chest: + developing ecchymosis over sternum, Clear to auscultation, on 2L via NC with sats at 94%, no adventitious breath sounds, right jugular perma cath in place Cardiac: Regular rate and rhythm, no murmur, no JVD, normal peripheral pulses, good capillary refill Abdominal: NABS x 4 quadrants, soft, nondistended, nontender to palpation, no rebound or guarding Extremities: Normal inspection, no peripheral edema or erythema, calfs nontender to palpation Psych: Normal mood and affect Neuro: AAO x 3, strength intact bilaterally and rated 5/5, no motor deficits, speech is clear, no peripheral sensory deficits Results & Data Results & Data ([facility]) Vital Signs (Past 12 Hours) Vital Signs Temp Pulse Resp BP Pulse Ox 11/27/20 13:04 100 11/27/20 13:01 68 131/52 L 98 11/27/20 12:23 100 11/27/20 12:17 73 181/81 H 100 11/27/20 12:16 36.6 C 73 24 181/81 H 100 Diagnostic Findings Chest X-Ray 11/27/20 12:16 SINGLE VIEW CHEST CLINICAL HISTORY: Change in mental status. FINDINGS: An AP, portable, upright chest radiograph is compared to study dated 11/18/2020 and correlated with chest CT dated 06/04/2019. The examination is degraded by portable technique and apical lordotic positioning. The right internal jugular central venous catheter is new from previous. The tip projects over the SVC. The heart is enlarged. There is pulmonary vascular congestion. Atelectasis is noted at the lung bases. Calcified pleural plaques are similar to previous.. No large pleural effusion or pneumothorax is seen. The skeletal structures are osteopenic. The bony thorax is grossly intact. IMPRESSION: 1. Cardiomegaly with evidence of mild congestive failure. 2. No lobar consolidation is identified. 3. A right internal jugular central venous catheter is new from previous.. ACT 112: Negative or not required by law. Electronically signed by: Genaro Traylor M.D. 11/27/2020 12:[address] 11/27/20 12:[address] DOSE: HISTORY: Altered mental status. TECHNIQUE: Multiaxial CT images of the head were performed without the use of intravenous contrast. Automated exposure control was utilized for this study. A dose lowering technique was utilized adhering to the principles of ALARA. Comparison: None. Findings: Mild mucosal thickening within the right maxillary sinus. Trace left mastoid effusion. The calvarium and skull base are intact. The ventricles and sulci are within normal limits. There is no mass, hematoma, midline shift, or acute infarct. Impression: No acute intracranial abnormality. ACT 112: Negative or not required by law. Electronically signed by: Duane Baeza M.D. 11/27/2020 1:26 PM Chest CTA 11/27/20 12:22 CT ANGIOGRAM OF THE CHEST CLINICAL HISTORY: Change in mental status. COMPARISON STUDY: Chest x-ray dated 11/27/2020. Chest CT dated 06/04/2019. TECHNIQUE: Following the IV administration of 119 cc of Optiray 320, CT angiogram of the chest was performed from the upper abdomen to the thoracic inlet utilizing the pulmonary embolus protocol. Images are reviewed in the axial, sagittal, and coronal planes. 3-D MIPS images are created and assessed. IV contrast was administered without complication. A dose lowering technique was utilized adhering to the principles of ALARA. The examination is degraded by motion artifact, as well as by streak artifact from the arms which could not be elevated above the chest. CT DOSE: 1396.67 mGy.cm FINDINGS: Thyroid: Normal in size and heterogeneous in attenuation. Thoracic aorta: There is atherosclerotic calcification of the thoracic aorta, which is normal in caliber and demonstrates standard 3-vessel arch anatomy. No dissection is seen. Pulmonary vasculature: The pulmonary trunk is normal in caliber. There are no filling defects identified in main, lobar, or segmental pulmonary branches to suggest pulmonary embolus. Heart: A right internal jugular central venous catheter is in place. The heart is enlarged noting trace pericardial effusion. Lungs and pleural spaces: Evaluation of the lung parenchyma is compromised by motion artifact. There is mild diffuse intralobular septal thickening. No pleural effusion is identified. The trachea and central airways are clear. Mild patchy opacities are present throughout both lungs. Calcified pleural plaque is again seen bilaterally. A 7 mm pulmonary nodule is seen in the right upper lobe on image #169. A 3 mm right lower lobe nodule is seen on image #127. Mediastinum: There is no mediastinal lymphadenopathy. Pebbles: Clear. Axillae: There is no axillary lymphadenopathy. Upper abdomen: There is a small hiatal hernia. A 14 mm left adrenal adenoma is unchanged. Skeletal structures: The skeletal structures are osteopenic. No lytic or blastic bony lesions are seen. IMPRESSION: 1. Streak and motion compromised examination. 2. There is no evidence of pulmonary embolus in the main, lobar, or segmental pulmonary arteries. 3. Cardiomegaly with evidence of congestive failure. 4. Bilateral patchy airspace opacities could represent mild pulmonary edema versus an infectious/inflammatory pneumonitis. Clinical correlation will required. 5. There are least 2 pulmonary nodules suggested measuring up to 7 mm. These are not well assessed due to artifact and airspace opacities. A follow-up chest CT in 3 months time is recommended for reassessment. 6. Calcified pleural plaques are similar to previous. 7. Additional findings as above. ACT 112: Positive. There are findings on this exam that require communication between the performing entity and the patient following Patient Test Result Information Act ([place] Act 112) guidelines. Electronically signed by: Genaro Traylor M.D. 11/27/2020 1:13 PM ECG Additional Comments: 27-NOV-2020 12:17:43 [facility]-EDSTAT ROUTINE RETRIEVAL Normal sinus rhythm Nonspecific T wave abnormality Prolonged QT Abnormal ECG When compared with ECG of 18-NOV-2020 16:27, Nonspecific T wave abnormality no longer evident in Inferior leads Nonspecific T wave abnormality no longer evident in Anterior leads 25mm/s 10mm/mV 150Hz 9.0.9 12SL 241 HD CANELO: 12 Unconfirmed Vent. rate 74 BPM LA interval 160 ms QRS duration 86 ms QT/QTc 442/490 ms Code Status & VTE Plan Code Status DNR/DNI Supervising Physician Co-Signing Physician Notes Attending addendum: The patient was seen and examined in the emergency room He is status post possible cardiac arrest at the dialysis center where her saturation was noted to be low at 60s and she required minimal resuscitation She has been feeling much better in the emergency room Only complaints remain are weakness and tiredness On examination No apparent distress at rest Hemodynamically stable Chest clear to auscultate bilaterally HeartS1-S2, no murmur Abdomenbenign Extremitiesno edema CNSalert, awake and oriented x3. Generalized weakness but no focal Her admission labs, imaging studies reviewed She is status post possible cardiac arrest at dialysis center which did not require any cardioversion and/or intubation Has end-stage renal disease on hemodialysis Nephrology consulted Mild elevation of the troponin doubt any ACS Remains stable in the emergency room Agree with assessment and plan as outlined above by Mirtha Horton (1) Anemia Anemia type: unspecified type Qualified Code(s): D64.9 - Anemia, unspecified (2) Hypertension Hypertension type: unspecified Qualified Code(s): I10 - Essential (primary) hypertension
[2020-11-27] MEDS ORDERED: HYDROmorphone INJ 0.5 MG/0.5 ML SYR IV STA (14:47)
[2020-11-27] MEDS ORDERED: POTASSIUM CHLORIDE CRTAB 20 MEQ TABCR PO STA (15:07)
[2020-11-27] MEDS ORDERED: DEXTROSE 50% 50 ML SYRINGE IV PRN (17:04)
[2020-11-27] MEDS ORDERED: GLUCAGON FOR INJ 1 MG VIAL SQ PRN (17:04)
[2020-11-27] MEDS ORDERED: GLUCOSE 10 TABS/TUBE PO PRN (17:04)
[2020-11-27] MEDS ORDERED: GLUCOSE 40% GEL 15 GM TUBE PO PRN (17:04)
[2020-11-27] MEDS ORDERED: CARBOHYDRATES FOR HYPOGLYCEMIA PO PRN (17:04)
[2020-11-27] MEDS ORDERED: ACETAMINOPHEN 325 MG TAB PO PRN (17:04)
[2020-11-27] MEDS ORDERED: HYDROmorphone INJ 0.5 MG/0.5 ML SYR IV PRN (17:04)
[2020-11-27] MEDS ORDERED: PHARMACY GLYCEMIC MGMT CONSULT PRN (17:25)
[2020-11-27] MEDS: CALCIUM ACETATE 667 MG CAP/TAB PO SCH (18:18)
[2020-11-27] MEDS: INSULIN ASPART 100 UNITS/ML 3 ML PEN SC SCH ×2 (18:20→21:35)
[2020-11-27] MEDS: FUROSEMIDE 40 MG TAB PO SCH (21:34)
[2020-11-27] MEDS: hydrALAZINE TAB 50 MG TAB PO SCH (21:34)
[2020-11-27] MEDS: carvediloL 3.125 MG TAB PO SCH (21:35)
[2020-11-28 04:16] LABS: Hematocrit (blood only) 23.8 % (37-47); Hemoglobin 7.4 g/dL (12.0-16.0); Mean Corpuscular Hemoglobin 29.7 pg (25-34); Mean Corpuscular Hgb Conc 31.1 g/dL (32-36); Mean Corpuscular Volume 95.6 fL (80-100); Platelet Count 127 K/uL (130-400); RDW Coefficient of Variation 14.7 % (11.5-14.5); Red Blood Count 2.49 M/uL (4.2-5.4); White Blood Count 7.27 K/uL (4.8-10.8)
[2020-11-28 05:02] LABS: Albumin Level 2.9 gm/dl (3.4-5.0); BUN Creatinine Ratio 9.4 (10-20); Bilirubin,Total 0.4 mg/dl (0.2-1); Calcium 7.5 mg/dl (8.5-10.1); Creatinine Clr Calc Pharmacy 8.8 ml/min; Est GFR (African American) 7.5 ml/min; Est GFR (Non-African American) 6.4 ml/min; Magnesium 2.2 mg/dl (1.8-2.4); Total Protein 5.9 gm/dl (6.4-8.2)
--- NOTE | 2020-11-28 06:53 | Electrocardiogram Report ---
Test Reason : Blood Pressure : / mmHG Vent. Rate : 074 BPM Atrial Rate : 074 BPM P-R Int : 160 ms QRS Dur : 086 ms QT Int : 442 ms P-R-T Axes : 037 023 091 degrees QTc Int : 490 ms Normal sinus rhythm Nonspecific T wave abnormality Prolonged QT Abnormal ECG When compared with ECG of 18-NOV-2020 16:27, Nonspecific T wave abnormality no longer evident in Inferior leads Nonspecific T wave abnormality no longer evident in Anterior leads Confirmed by Ousmane Cheema ([id number]) on 11/28/2020 6:53:06 AM Referred By: Confirmed By:Ousmane Cheema
[2020-11-28] MEDS ORDERED: MULTIVITAMIN TAB PO SCH (09:00)
[2020-11-28] MEDS ORDERED: NON-FORMULARY MEDICATION (Coenzyme Q10 [Co Q-10] 100 mg Capsule) PO SCH (09:00)
[2020-11-28] MEDS ORDERED: INSULIN GLARGINE SOLOSTAR 100 UNITS/ML 3 ML PEN SQ SCH (09:00)
[2020-11-28] MEDS: INSULIN ASPART 100 UNITS/ML 3 ML PEN SC SCH ×4 (09:45→21:17)
[2020-11-28] MEDS: INSULIN GLARGINE SOLOSTAR 100 UNITS/ML 3 ML PEN SC SCH (09:47)
[2020-11-28] MEDS: CALCIUM ACETATE 667 MG CAP/TAB PO SCH ×3 (09:51→18:36)
[2020-11-28] MEDS: CHOLECALCIFEROL 1,000 UNITS 25 MCG TAB PO SCH (09:51)
[2020-11-28] MEDS: hydrALAZINE TAB 50 MG TAB PO SCH ×3 (09:51→20:56)
[2020-11-28] MEDS: carvediloL 3.125 MG TAB PO SCH ×2 (09:51→20:57)
[2020-11-28] MEDS: NEPHROCAPS PO SCH (09:51)
[2020-11-28] MEDS: FUROSEMIDE 40 MG TAB PO SCH ×2 (09:51→20:57)
--- NOTE | 2020-11-28 10:25 | Electrocardiogram Report ---
Test Reason : Blood Pressure : / mmHG Vent. Rate : 074 BPM Atrial Rate : 074 BPM P-R Int : 152 ms QRS Dur : 082 ms QT Int : 436 ms P-R-T Axes : 037 019 070 degrees QTc Int : 483 ms Normal sinus rhythm Nonspecific ST abnormality When compared with ECG of 27-NOV-2020 12:17, (unconfirmed) Nonspecific T wave abnormality, improved in Lateral leads Confirmed by Favian Beck ([id number]) on 11/28/2020 10:25:10 AM Referred By: REFERRED SELF Confirmed By:Morgan Beck
[2020-11-28] MEDS ORDERED: SODIUM CHLORIDE 0.9% 250 ML IV PRN (11:06)
--- NOTE | 2020-11-28 11:13 | Nephrology Consultation ---
Date of Consultation November 28, 2020 Assessment & Plan (1) ESRD (end stage renal disease): Orders for HD today entered into the EMR and reviewed with the dialysis nurse. Will plan for 3 hrs with Qb 400 via TDC. UF goal 1.5-2 L, as tolerated. 3 K bath. Treatment goals updated. Continue nephrocaps. Low PO4 diet. Medications appropriately dosed for kidney dysfunction. Document I/O's and repeat metabolic profile tomorrow AM. Stoner may be removed per nursing protocol. (2) Anemia: Epogen 16612 units given on 11/21/2020. Will provide 1 u PRBC transfusion support with HD today. (3) Hypoxia: Oxygenating appropriately with supplemental O2. (4) Syncope and collapse: Hypoxic/vagal event suspected. History of Present Illness Reason for Consultation: ESRD on HD Requesting Physician: Emmanuel Horton MD Attending Physician: Emmanuel Horton MD History of Present Illness Ms. Riley is a 65 year female who with ESRD. She started hemodialysis during a recent admission to [facility] earlier this month. I met Jeri during an admission to [facility] in May and saw her at the outpatient dialysis unit on Monday. This was her first outpatient treatment. There were no complications with treatment on Monday. Unfortunately, yesterday's treatment was complicated by an acute episode of responsiveness. I discussed the event in detail with staff at the dialysis unit. Jeri became acutely unresponsive within the first 15 minutes of the dialysis treatment and CPR was started. No shocks were delivered and no medications given. When EMS arrived, Jeri had a pulse/BP and was oxygenating at 60% on room air. She has no memory of any events between starting HD and waking up in the ER at [facility]. Since admission, she has been in sinus rh ythm without event on telemetry. Her hemodialysis lines were evaluated and found to be without clot or air in the lines. We did not see evidence of hemolysis and there were no concerning features to her setup or dialysate. Minimal blood had been removed. Jeri had initially requested to be a DNR/DNI yesterday but since discussing with her son and thinking things over, she has opted to switch back to full code today. I discussed the overall plan of care with Dr. Horton this morning. CTA, EKG, CXR, and labs were reviewed. Ms. Riley has DKD. She unfortunately was not compliant with outpatient follow up. In early November, she presented to the ED with advanced kidney dysfunction, symptoms or uremia, and notable volume overload. Dr. Darby placed a tunneled dialysis catheter on 11/20/2020 and the first dialysis treatment was completed on 11/21/2020. Tunneled dialysis catheter has been functioning well. There were no complications with any of the other hemodialysis treatments. PMH: AODM complicated by retinopathy, HTN, hyperlipidemia, depression, R ankle fracture (repaired - requires walking boot). Allergies Allergy/AdvReac Type Severity Reaction Status Date / Time daptomycin AdvReac sob Verified 11/27/20 13:55 Home Medications Medication Instructions Recorded Confirmed Type cholecalciferol (vitamin D3) 4,000 unit PO DAILY 07/07/18 11/27/20 History [Vitamin D3] coenzyme Q10 [Co Q-10] 100 mg PO QAM 11/18/20 11/27/20 History furosemide 40 mg PO BID 11/18/20 11/27/20 History B complex with C 20-folic acid 1 cap PO QAM #90 cap 11/24/20 11/27/20 Rx [Renal Caps] calcium acetate(phosphat bind) 667 mg PO TIDM #90 cap 11/24/20 11/27/20 Rx carvedilol 3.125 mg PO BID #30 tab 11/24/20 11/27/20 Rx hydralazine 50 mg PO TID #90 tab 11/24/20 11/27/20 Rx Basaglar KwikPen U-100 Insulin 20 unit SUBCUT QAM 11/27/20 11/27/20 History multivitamin 1 tab PO QAM 11/27/20 11/27/20 History Patient History Medical History Acquired deformity of right foot Acute osteomyelitis of right ankle or foot Acute respiratory failure with hypoxia Anemia Callus Chronic kidney disease (CKD), stage IV (severe) Closed fracture of distal end of right fibula and tibia Diabetes mellitus with diabetic polyneuropathy Diabetic foot ulcer Diabetic neuropathy Dyslipidemia Foot osteomyelitis, right History of depression Hypertension Posterior capsular opacification Type 2 diabetes mellitus Ulcer of right midfoot Vitamin D deficiency Surgical History History of appendectomy Status post right foot surgery Family History Sister Ovarian cancer Brother Hypertension Social History Smoking Status: Never smoker Second Hand Exposure: No; Hx Alcohol Use: No Hx Substance Use: No Preferred Language: [place] 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: Effective Motion Picture Projectionist Required: No Beliefs That Will Affect Care: None marital status: Current Living Situation: Alone Current Living Situation Comment: [facility] currently at rehab but typically lives at home alone current occupational status: retired Other Information That Helps Us Care for You: No Feels Safe at Home: Yes Safety Concerns: Feels Safe At This Time Diet Comment: stated low salt, low carb during the past year weight has: increased > 10 lbs Assistive Devices: Cane, Glasses and Oxygen - at Night Review of Systems Review of Systems: All systems reviewed & are unremarkable except as noted in HPI & below Physical Exam Constitutional: well developed; no acute distress Eyes: no scleral abnormality and no corneal abnormality ENMT: Mouth: no oral mucosal abnormality and oral mucous membranes not dry Neck: normal visual inspection and trachea midline RIJ TDC Respiratory: normal respiratory effort Auscultation: lungs clear to auscultation bilaterally Cardiovascular: Rate/Rhythm: regular rate Heart Sounds: normal S1 and normal S2 Extremities: no edema Musculoskeletal: Extremities: no cyanosis and no clubbing Skin: normal turgor; no lesions Neurologic: Motor/Sensory: no tremor and no asterixis Psychiatric: Orientation: alert and oriented x 3 Results & Data ([facility]) Vital Signs (Past 12 Hours) Vital Signs Temp Pulse Resp BP Pulse Ox 11/28/20 08:37 36.8 C 74 16 146/72 H 97 11/28/20 03:12 36.7 C 73 16 135/67 96 11/27/20 23:45 36.5 C 69 18 131/70 100 Laboratory Results Laboratory Results - last 24 hr 11/27/20 11/27/20 11/27/20 12:17 12:17 12:17 WBC 7.71 RBC 2.84 L Hgb 8.6 L POC Hgb Hct 27.0 L POC Hct MCV 95.1 MCH 30.3 MCHC 31.9 L RDW Std Deviation 50.7 H RDW Coeff of Rico 14.7 H Plt Count 118 L MPV 10.4 Immature Gran % (Auto) 2.3 Neut % (Auto) 70.7 Lymph % (Auto) 15.8 Gibson % (Auto) 8.6 Eos % (Auto) 2.5 Baso % (Auto) 0.1 Neut # (Auto) 5.45 Lymph # (Auto) 1.22 Gibson # (Auto) 0.66 H Eos # (Auto) 0.19 Baso # (Auto) 0.01 Immature Gran # (Auto) 0.18 H PT 10.5 INR 1.0 APTT 26.8 PTT Ratio 1.0 POC pH POC pCO2 POC pO2 POC HCO3 POC Total CO2 POC Base Excess POC ABG O2 Sat POC Sodium Sodium 137 POC Potassium Potassium 3.3 L POC Chloride Chloride 102 Carbon Dioxide 27 Anion Gap 8.0 POC Anion Gap POC BUN BUN 49 H Creatinine 5.45 H* POC Creatinine Est Cr Clr Drug Dosing Not Reportable Est GFR ( Amer) 8.8 Est GFR (Non-Af Amer) 7.6 BUN/Creatinine Ratio 9.3 L Glucose 190 H POC Glucose POC Glucose (other) Calcium 7.4 L POC Ioniz Calcium Chely Phosphorus Magnesium 2.1 Total Bilirubin 0.4 Direct Bilirubin 0.2 AST 93 H ALT 58 Alkaline Phosphatase 97 Troponin I 0.046 H* Total Protein 6.5 Albumin 3.1 L Globulin Albumin/Globulin Ratio Nasal Screen MRSA (PCR) COVID-19 Eval Order SARS-CoV-2 (PCR) 11/27/20 11/27/20 11/27/20 12:28 12:28 12:30 WBC RBC Hgb POC Hgb 8.8 L Hct POC Hct 26 L MCV MCH MCHC RDW Std Deviation RDW Coeff of Rico Plt Count MPV Immature Gran % (Auto) Neut % (Auto) Lymph % (Auto) Gibson % (Auto) Eos % (Auto) Baso % (Auto) Neut # (Auto) Lymph # (Auto) Gibson # (Auto) Eos # (Auto) Baso # (Auto) Immature Gran # (Auto) PT INR APTT PTT Ratio POC pH 7.40 POC pCO2 47 H POC pO2 404 H POC HCO3 29 H POC Total CO2 31 < 5 L* POC Base Excess 5.0 H POC ABG O2 Sat 100.0 H POC Sodium 136 Sodium POC Potassium 3.3 Potassium POC Chloride 97 L Chloride Carbon Dioxide Anion Gap POC Anion Gap TNP POC BUN 45 H BUN Creatinine POC Creatinine 5.9 H* Est Cr Clr Drug Dosing Est GFR ( Amer) Est GFR (Non-Af Amer) BUN/Creatinine Ratio Glucose POC Glucose 182 H POC Glucose (other) 198 H Calcium POC Ioniz Calcium Chely 1.03 L Phosphorus Magnesium Total Bilirubin Direct Bilirubin AST ALT Alkaline Phosphatase Troponin I Total Protein Albumin Globulin Albumin/Globulin Ratio Nasal Screen MRSA (PCR) COVID-19 Eval Order SARS-CoV-2 (PCR) 11/27/20 11/27/20 11/27/20 13:58 13:58 15:45 WBC RBC Hgb POC Hgb Hct POC Hct MCV MCH MCHC RDW Std Deviation RDW Coeff of Rico Plt Count MPV Immature Gran % (Auto) Neut % (Auto) Lymph % (Auto) Gibson % (Auto) Eos % (Auto) Baso % (Auto) Neut # (Auto) Lymph # (Auto) Gibson # (Auto) Eos # (Auto) Baso # (Auto) Immature Gran # (Auto) PT INR APTT PTT Ratio POC pH POC pCO2 POC pO2 POC HCO3 POC Total CO2 POC Base Excess POC ABG O2 Sat POC Sodium Sodium POC Potassium Potassium POC Chloride Chloride Carbon Dioxide Anion Gap POC Anion Gap POC BUN BUN Creatinine POC Creatinine Est Cr Clr Drug Dosing Est GFR ( Amer) Est GFR (Non-Af Amer) BUN/Creatinine Ratio Glucose POC Glucose 169 H POC Glucose (other) Calcium POC Ioniz Calcium Chely Phosphorus Magnesium Total Bilirubin Direct Bilirubin AST ALT Alkaline Phosphatase Troponin I Total Protein Albumin Globulin Albumin/Globulin Ratio Nasal Screen MRSA (PCR) COVID-19 Eval Order Covid19 at [facility] SARS-CoV-2 (PCR) NEGATIVE 11/27/20 11/27/20 11/27/20 17:07 17:45 20:00 WBC RBC Hgb POC Hgb Hct POC Hct MCV MCH MCHC RDW Std Deviation RDW Coeff of Rico Plt Count MPV Immature Gran % (Auto) Neut % (Auto) Lymph % (Auto) Gibson % (Auto) Eos % (Auto) Baso % (Auto) Neut # (Auto) Lymph # (Auto) Gibson # (Auto) Eos # (Auto) Baso # (Auto) Immature Gran # (Auto) PT INR APTT PTT Ratio POC pH POC pCO2 POC pO2 POC HCO3 POC Total CO2 POC Base Excess POC ABG O2 Sat POC Sodium Sodium POC Potassium Potassium POC Chloride Chloride Carbon Dioxide Anion Gap POC Anion Gap POC BUN BUN Creatinine POC Creatinine Est Cr Clr Drug Dosing Est GFR ( Amer) Est GFR (Non-Af Amer) BUN/Creatinine Ratio Glucose POC Glucose 152 H POC Glucose (other) Calcium POC Ioniz Calcium Chely Phosphorus Magnesium Total Bilirubin Direct Bilirubin AST ALT Alkaline Phosphatase Troponin I 0.642 H* Total Protein Albumin Globulin Albumin/Globulin Ratio Nasal Screen MRSA (PCR) Negative COVID-19 Eval Order SARS-CoV-2 (PCR) 11/27/20 11/28/20 11/28/20 21:09 03:45 03:45 WBC 7.27 RBC 2.49 L Hgb 7.4 L POC Hgb Hct 23.8 L POC Hct MCV 95.6 MCH 29.7 MCHC 31.1 L RDW Std Deviation 51.0 H RDW Coeff of Rico 14.7 H Plt Count 127 L MPV 10.0 Immature Gran % (Auto) Neut % (Auto) Lymph % (Auto) Gibson % (Auto) Eos % (Auto) Baso % (Auto) Neut # (Auto) Lymph # (Auto) Gibson # (Auto) Eos # (Auto) Baso # (Auto) Immature Gran # (Auto) PT INR APTT PTT Ratio POC pH POC pCO2 POC pO2 POC HCO3 POC Total CO2 POC Base Excess POC ABG O2 Sat POC Sodium Sodium POC Potassium Potassium POC Chloride Chloride Carbon Dioxide Anion Gap POC Anion Gap POC BUN BUN Creatinine POC Creatinine Est Cr Clr Drug Dosing Est GFR ( Amer) Est GFR (Non-Af Amer) BUN/Creatinine Ratio Glucose POC Glucose 152 H POC Glucose (other) Calcium POC Ioniz Calcium Chely Phosphorus Magnesium Total Bilirubin Direct Bilirubin AST ALT Alkaline Phosphatase Troponin I 0.789 H* Total Protein Albumin Globulin Albumin/Globulin Ratio Nasal Screen MRSA (PCR) COVID-19 Eval Order SARS-CoV-2 (PCR) 11/28/20 11/28/20 03:45 08:02 WBC RBC Hgb POC Hgb Hct POC Hct MCV MCH MCHC RDW Std Deviation RDW Coeff of Rico Plt Count MPV Immature Gran % (Auto) Neut % (Auto) Lymph % (Auto) Gibson % (Auto) Eos % (Auto) Baso % (Auto) Neut # (Auto) Lymph # (Auto) Gibson # (Auto) Eos # (Auto) Baso # (Auto) Immature Gran # (Auto) PT INR APTT PTT Ratio POC pH POC pCO2 POC pO2 POC HCO3 POC Total CO2 POC Base Excess POC ABG O2 Sat POC Sodium Sodium 136 POC Potassium Potassium 4.0 D POC Chloride Chloride 104 Carbon Dioxide 24 Anion Gap 8.0 POC Anion Gap POC BUN BUN 58 H Creatinine 6.25 H* D POC Creatinine Est Cr Clr Drug Dosing 8.8 Est GFR ( Amer) 7.5 Est GFR (Non-Af Amer) 6.4 BUN/Creatinine Ratio 9.4 L Glucose 106 H POC Glucose 114 H POC Glucose (other) Calcium 7.5 L POC Ioniz Calcium Chely Phosphorus 7.0 H Magnesium 2.2 Total Bilirubin 0.4 Direct Bilirubin AST 52 H ALT 49 Alkaline Phosphatase 80 Troponin I Total Protein 5.9 L Albumin 2.9 L Globulin 3.0 Albumin/Globulin Ratio 1.0 Nasal Screen MRSA (PCR) COVID-19 Eval Order SARS-CoV-2 (PCR) Diagnostic Findings CXR and CTA chest personally reviewed. There is no evidence of pulmonary embolus in the main, lobar, or segmental pulmonary arteries. Cardiomegaly with evidence of congestive failure. Bilateral patchy airspace opacities could represent mild pulmonary edema versus an infectious/inflammatory pneumonitis. PG Care Time/CCT Total # of Minutes Spent Total Time Spent with Patient: Total time spent is greater than 50% in coordina tion of care (as documented) at patient's floor/unit and/or counseling patient: Coding Level of Care Code 53251 Inpt Consult Level 5 Diagnoses ESRD (end stage renal disease) N18.6 Anemia D64.9 Anemia type: unspecified type Hypoxia R09.02 Syncope and collapse R55 (1) Anemia Anemia type: unspecified type Qualified Code(s): D64.9 - Anemia, unspecified
--- NOTE | 2020-11-28 11:53 | Pharmacy Report ---
Pharmacy Glycemic Short Note 2 - Date of Service November 28, 2020 - Glycemic Short BSG Results (Last 24 hours): 11/27/20 11/27/20 11/27/20 12:17 12:28 12:30 Glucose 190 H POC Glucose 182 H POC Glucose (other) 198 H 11/27/20 11/27/20 11/27/20 15:45 17:07 21:09 Glucose POC Glucose 169 H 152 H 152 H POC Glucose (other) 11/28/20 11/28/20 03:45 08:02 Glucose 106 H POC Glucose 114 H POC Glucose (other) OUTPATIENT ANTIDIABETIC REGIMEN: * Basalgar 15-20 units HS ASSESSMENT: * Ms Riley is a 65 y/o F admitted with syncope vs cardiac arrest. Recent start on dialysis. Recent previous admission demonstrates patient tolerated Lantus 5 units daily + Novolog CF 30 CR 12. BSGs did tend to rise throughout the day. * Continue Lantus 5 units daily + tightened Novolog to prevent BSG increases. PLAN FOR INPATIENT GLYCEMIC CONTROL: * Basal insulin * Lantus 5 units SQ daily * Bolus insulin * NovoLog per scale ACHS or Q6hrs while NPO * Goal Range: Low 110 mg/dL - High 140 mg/dL * Correction Factor: 25 mg/dL/unit * Nutritional / Prandial insulin per carb ratio of 1 unit per 8 grams CHO consumed
--- NOTE | 2020-11-28 12:59 | Hospitalist Progress Note ---
Date of Service November 28, 2020 Assessment & Plan (1) Cardiac arrest: -Sudden unresponsiveness within 15 minutes of dialysis session on 11/27/2020 with noted desaturation of 60s -Unsure if the patient had jose antonio cardiac arrest vs a syncopal/hypoxic episode as she was not wearing oxygen from leaving her house to HD until approximately 11:30 AM. - Underwent CPR for 6 to 8 minutes inappropriately as she is a DNR/DNI per her paperwork, confirmed with patient herself, and her family who is present at bedside ( brother, sister, niece) - fortunately it does not appear there are any broken ribs on CTA or CXR. Monitor closely. Developing ecchymosis over the chest wall. -Did not require defibrillation or IV meds at bedside during possible cardiac arrest -Serial troponins are mildly elevated which is likely due to hypoxic event and is complicated by end-stage renal disease. Doubt any ACS -Daily EKGs-remain unremarkable -Check 2 D echo-pending -Denies any cardiac symptoms and remains hemodynamically stable (2) ESRD (end stage renal disease): -Recently started HD, MWF, today [facility]. Previously followed with Dr. Penn with nephrology with during her hospitalization, will consult nephrology for HD. -Creatinine/BUN elevated at 5.45/49 respectively -R jugular perma cath in place placed during last admission by Dr. Darby. -Appreciate nephrology input and recommendation -We will continue hemodialysis (3) Congestive heart disease: - Chronic, diastolic - Nephrology consult for fluid management - Continue Lasix 40mg PO BID - Hemodialysis initiated today around ~1130, family was called around noon of the event, unsure the amount of fluid pulled off. Scheduled for 3.5 hours. - cont o2-during last admission, nocturnal pulse oximetry done and pt required 2L NC at night, 2 step exercise done an pt required 1 L NC at rest and with ambulation. Patient also noted that she would not wear oxygen at all times per respiratory therapist. -No acute symptoms (4) Hypertension: - Continue carvedilol 3.125 mg BID, lasix 40mg BID and hydralazine 50mg TID (5) Dyslipidemia: - Cont coenzyme Q10 (6) Type 2 diabetes mellitus: - Most recent ha1c 7.1 on 11/18/20 - On Basaglar 20 U Qam per pt, med rec shows 15 U HS - consult glycemic pharmacy - Continue insulin sliding scale and lantus during hospital course (7) Diabetic neuropathy: - Chronic (8) Hypokalemia: - Potassium 3.3, will replace with 40 meq PO. Monitor with am BMP. (9) Anemia: - Hgb 8.6 - Received Epogen on 11/24/20 - continue Nephrocaps and phosphate binder DVT ppx: - teds, scds CODE: Patient is now for full code And this was discussed by the cyber systems engineer with the patient and the family member Admission and Anticipated Discharge Date Admission Date: November 27, 2020 Subjective 11/28/2020 The patient was seen and examined in telemetry unit She was admitted yesterday with an unresponsive episode during dialysis She became acutely unresponsive within the first 15 minutes of the dialysis treatment when CPR was started Her O2 saturation was noted to be very low at the onset of unresponsiveness Has been feeling a lot better since admission and denies any symptoms as of this morning Review of Systems Review of Systems: All systems reviewed and are unremarkable except as noted below Physical Exam Physical Exam: Lying in bed comfortably Constitutional: well developed, well nourished and + obese; not ill appearing Eyes: PERRL, conjunctivae normal, anicteric sclerae ENMT: external ear and nose normal, oropharynx normal Neck: trachea midline, no thyromegaly Respiratory: no respiratory distress Auscultation: lungs clear to au scultation bilaterally and + crackles (Minimal crackles at the bases) Cardiovascular: Rate/Rhythm: regular rate and regular rhythm Heart Sounds: no murmur Extremities: + edema (Trace edema bilaterally) Gastrointestinal (Abdomen): Inspection/Auscultation: normal bowel sounds; abdomen not distended Percussion/Palpation: abdomen soft; abdomen nontender Musculoskeletal: No acute arthritis in any joint Neurologic: Alert, awake and oriented x3. No focal sensory and motor deficit appreciated Psychiatric: A+Ox3, euthymic affect Lymphatic: no cervical or axillary lymphadenopathy Results & Data Results & Data ([facility]) Vital Signs (Past 12 Hours) Vital Signs Temp Pulse Resp BP Pulse Ox 11/28/20 12:21 36.4 C L 75 16 151/67 H 97 11/28/20 08:37 36.8 C 74 16 146/72 H 97 11/28/20 03:12 36.7 C 73 16 135/67 96 Laboratory Results Short CBC 11/28/20 Range/Units 03:45 WBC 7.27 (4.8-10.8) K/uL Hgb 7.4 L (12.0-16.0) g/dL Hct 23.8 L (37-47) % Plt Count 127 L (130-400) K/uL BMP 11/27/20 11/28/20 12:17 03:45 Sodium 137 136 Potassium 3.3 L 4.0 D Chloride 102 104 Carbon Dioxide 27 24 BUN 49 H 58 H Creatinine 5.45 H* 6.25 H* D Glucose 190 H 106 H Calcium 7.4 L 7.5 L Cardiac Enzymes 11/27/20 11/27/20 11/28/20 Range/Units 12:17 20:00 03:45 Troponin I 0.046 H* 0.642 H* 0.789 H* (0-0.045) ng/ml Liver Function 11/27/20 11/28/20 Range/Units 12:17 03:45 Total Bilirubin 0.4 0.4 (0.2-1) mg/dl Direct Bilirubin 0.2 (0-0.2) mg/dl AST 93 H 52 H (15-37) U/L ALT 58 49 (12-78) U/L Alkaline Phosphatase 97 80 (45-117) U/L Albumin 3.1 L 2.9 L (3.4-5.0) gm/dl Medications Administered Current Inpatient Medications Acetaminophen (Acetaminophen 325 Mg Tab) 650 mg PO Q4H PRN PRN Reason: Moderate Pain Stop: 12/27/20 17:03 Calcium Acetate (Calcium Acetate 667 Mg Cap/Tab) 667 mg PO TIDM JOSE FRANCISCO Stop: 12/27/20 17:03 Last Admin: 11/28/20 11:48 Dose: 667 mg Documented by: Carvedilol (Carvedilol 3.125 Mg Tab) 3.125 mg PO BID JOSE FRANCISCO Stop: 12/27/20 20:59 Last Admin: 11/28/20 09:51 Dose: 3.125 mg Documented by: Dextrose (Dextrose 50% 50 Ml Syringe) 25 - 50 ml IV UD PRN; Protocol PRN Reason: Hypoglycemia Protocol Stop: 12/27/20 17:03 Furosemide (Furosemide 40 Mg Tab) 40 mg PO BID JOSE FRANCISCO Stop: 12/27/20 20:59 Last Admin: 11/28/20 09:51 Dose: 40 mg Documented by: Glucagon (Glucagon For Inj 1 Mg Vial) 1 mg SQ UD PRN; Protocol PRN Reason: Hypoglycemia Protocol Stop: 12/27/20 17:03 Glucose (Glucose 10 Tabs/Tube) 4 - 8 tabs PO UD PRN; Protocol PRN Reason: Hypoglycemia Protocol Stop: 12/27/20 17:03 Glucose (Glucose 40% Gel 15 Gm Tube) 15 - 30 gm PO UD PRN; Protocol PRN Reason: Hypoglycemia Protocol Stop: 12/27/20 17:03 Hydralazine HCl (Hydralazine Tab 50 Mg Tab) 50 mg PO TID [facility] Stop: 12/27/20 20:59 Last Admin: 11/28/20 09:51 Dose: 50 mg Documented by: Hydromorphone HCl (Hydromorphone Inj 0.5 Mg/0.5 Ml Syr) 0.5 mg IV Q3H PRN PRN Reason: Pain Stop: 12/11/20 17:03 Sodium Chloride (Nss) 250 mls @ 15 mls/hr IV .[id number] PRN PRN Reason: For Transfusion Stop: 11/28/20 21:06 Insulin Aspart (Insulin Aspart 100 Units/Ml 3 Ml Pen) 0 units SC ACHS [facility] Stop: 12/27/20 17:03 Last Admin: 11/28/20 12:45 Dose: 2 units Documented by: Insulin Glargine (Insulin Glargine Solostar 100 Units/Ml 3 Ml Pen) [facility] Protocol Stop: 12/28/20 08:59 Last Admin: 11/28/20 09:47 Dose: 5 units Documented by: Miscellaneous (Carbohydrates For Hypoglycemia ) 15 - 30 gm PO UD PRN PRN Reason: Hypoglycemia Protocol Stop: 12/27/20 17:03 Miscellaneous Information (Pharmacy Glycemic Mgmt Consult) 1 ea N/A UD PRN PRN Reason: Consult Stop: 12/27/20 17:24 Vitamin B Complex/Folic Acid (Nephrocaps) 1 cap PO QAM [facility] Stop: 12/28/20 08:59 Last Admin: 11/28/20 09:51 Dose: 1 cap Documented by: Vitamin D (Cholecalciferol 1,000 Units 25 Mcg Tab) 4,000 units PO DAILY JOSE FRANCISCO Stop: 12/28/20 08:59 Last Admin: 11/28/20 09:51 Dose: 4,000 units Documented by: (1) Hypertension Hypertension type: unspecified Qualified Code(s): I10 - Essential (primary) hypertension (2) Anemia Anemia type: unspecified type Qualified Code(s): D64.9 - Anemia, unspecified
--- NOTE | 2020-11-29 07:42 | Electrocardiogram Report ---
Test Reason : Blood Pressure : / mmHG Vent. Rate : 073 BPM Atrial Rate : 073 BPM P-R Int : 152 ms QRS Dur : 076 ms QT Int : 420 ms P-R-T Axes : 068 012 055 degrees QTc Int : 462 ms Poor data quality, interpretation may be adversely affected Normal sinus rhythm Nonspecific T wave abnormality Abnormal ECG When compared with ECG of 28-NOV-2020 05:38, Nonspecific T wave abnormality now evident in Inferior leads Nonspecific T wave abnormality now evident in Anterior leads Confirmed by Favian Beck ([id number] on 11/29/2020 7:41:56 AM Referred By: REFERRED SELF Confirmed By:Morgan Beck
[2020-11-29] MEDS: CHOLECALCIFEROL 1,000 UNITS 25 MCG TAB PO SCH (08:54)
[2020-11-29] MEDS: carvediloL 3.125 MG TAB PO SCH ×2 (08:54→22:05)
[2020-11-29] MEDS: NEPHROCAPS PO SCH (08:54)
[2020-11-29] MEDS: hydrALAZINE TAB 50 MG TAB PO SCH ×3 (08:54→22:02)
[2020-11-29] MEDS: CALCIUM ACETATE 667 MG CAP/TAB PO SCH ×3 (08:54→17:14)
[2020-11-29] MEDS: FUROSEMIDE 40 MG TAB PO SCH ×2 (08:54→22:05)
[2020-11-29] MEDS: INSULIN ASPART 100 UNITS/ML 3 ML PEN SC SCH ×4 (08:55→22:04)
[2020-11-29] MEDS: INSULIN GLARGINE SOLOSTAR 100 UNITS/ML 3 ML PEN SC SCH (08:55)
[2020-11-29 09:14] LABS: Hematocrit (blood only) 26.8 % (37-47); Hemoglobin 8.7 g/dL (12.0-16.0); Mean Corpuscular Hemoglobin 29.7 pg (25-34); Mean Corpuscular Hgb Conc 32.5 g/dL (32-36); Mean Corpuscular Volume 91.5 fL (80-100); RDW Coefficient of Variation 16.1 % (11.5-14.5); RDW Standard Deviation 54.1 fL (36.4-46.3); Red Blood Count 2.93 M/uL (4.2-5.4); White Blood Count 7.58 K/uL (4.8-10.8)
[2020-11-29 09:30] LABS: Mean Platelet Volume 9.8 fL (7.4-10.4); Platelet Count 78 K/uL (130-400); Platelet Estimate Decreased (Normal)
[2020-11-29 09:54] LABS: Albumin Globulin Ratio 0.9 (0.9-2); Albumin Level 2.9 gm/dl (3.4-5.0); BUN Creatinine Ratio 6.8 (10-20); Bilirubin,Total 0.5 mg/dl (0.2-1); Calcium 8.1 mg/dl (8.5-10.1); Creatinine Clr Calc Pharmacy 11.5 ml/min; Est GFR (African American) 10.6 ml/min; Est GFR (Non-African American) 9.1 ml/min; Globulin 3.4 gm/dl (2.5-4.0); Potassium 3.8 mmol/L (3.5-5.1); Total Protein 6.3 gm/dl (6.4-8.2)
--- NOTE | 2020-11-29 11:12 | Nephrology Progress Note ---
Date of Service November 29, 2020 Assessment & Plan (1) ESRD (end stage renal disease): Appropriate clearance with HD yesterday. Electrolytes controlled. Volume status euvolemic. Plan HD tomorrow per [facility] schedule. Continue nephrocaps. Low PO4 diet. Medications appropriately dosed for kidney dysfunction. Document I/O's and repeat metabolic profile tomorrow AM. (2) Anemia: Epogen 97311 units given on 11/21/2020. 1 u PRBC transfusion support pr ovided with HD yesterday. (3) Hypoxia: Oxygenating appropriately with supplemental O2. (4) Syncope and collapse: No abnormal rhythms on tele. Clinically improved. Suspect hypoxic/vagal event. Admission and Anticipated Discharge Date Admission Date: November 27, 2020 Subjective No acute events overnight. Tolerated HD yesterday without complications. Net UF 2 L. Jeri feels well this AM. Review of Systems Review of Systems: All systems reviewed & are unremarkable except as noted in HPI & below Physical Exam Constitutional: well developed; no acute distress Eyes: no scleral abnormality and no corneal abnormality ENMT: Mouth: no oral mucosal abnormality and oral mucous membranes not dry Neck: normal visual inspection and trachea midline Respiratory: normal respiratory effort Auscultation: lungs clear to auscultation bilaterally Cardiovascular: Rate/Rhythm: regular rate Heart Sounds: normal S1 and norm al S2 Extremities: no edema Musculoskeletal: Extremities: no cyanosis and no clubbing Skin: normal turgor; no lesions Neurologic: Motor/Sensory: no tremor and no asterixis Psychiatric: Orientation: alert and oriented x 3 Results & Data ([facility]) Vital Signs (Past 12 Hours) Vital Signs Temp Pulse Pulse Resp BP BP Pulse Ox 11/29/20 08:10 36.7 C 75 75 16 150/73 H 150/73 H 98 11/29/20 03:46 36.9 C 74 20 164/70 H 96 11/28/20 23:19 37.2 C 80 20 153/67 H 96 Laboratory Results Laboratory Results - last 24 hr 11/28/20 11/28/20 11/28/20 11:14 16:56 20:35 WBC RBC Hgb Hct MCV MCH MCHC RDW Std Deviation RDW Coeff of Rico Plt Count MPV Platelet Estimate Sodium Potassium Chloride Carbon Dioxide Anion Gap BUN Creatinine Est Cr Clr Drug Dosing Est GFR ( Amer) Est GFR (Non-Af Amer) BUN/Creatinine Ratio Glucose POC Glucose 97 116 H Calcium Total Bilirubin AST ALT Alkaline Phosphatase Total Protein Albumin Globulin Albumin/Globulin Ratio Blood Type A Positive Antibody Screen NEGATIVE Crossmatch See Detail 11/29/20 11/29/20 11/29/20 07:49 09:02 09:02 WBC 7.58 RBC 2.93 L Hgb 8.7 L Hct 26.8 L MCV 91.5 MCH 29.7 MCHC 32.5 RDW Std Deviation 54.1 H RDW Coeff of Rico 16.1 H Plt Count 78 L MPV 9.8 Platelet Estimate Decreased L Sodium 137 Potassium 3.8 Chloride 105 Carbon Dioxide 26 Anion Gap 7.0 BUN 32 H Creatinine 4.69 H* D Est Cr Clr Drug Dosing 11.5 Est GFR ( Amer) 10.6 Est GFR (Non-Af Amer) 9.1 BUN/Creatinine Ratio 6.8 L Glucose 101 H POC Glucose 87 Calcium 8.1 L Total Bilirubin 0.5 AST 34 ALT 38 Alkaline Phosphatase 70 Total Protein 6.3 L Albumin 2.9 L Globulin 3.4 Albumin/Globulin Ratio 0.9 Blood Type Antibody Screen Crossmatch PG Care Time/CCT Total # of Minutes Spent Total Time Spent with Patient: Total time spent is greater than 50% in coordination of care (as documented) at patient's floor/unit and/or counseling patient: Coding Level of Care Code 71695 Subseq Hosp Care Lvl 3 Diagnoses ESRD (end stage renal disease) N18.6 Anemia D64.9 Anemia type: unspecified type Hypoxia R09.02 Syncope and collapse R55 (1) Anemia Anemia type: unspecified type Qualified Code(s): D64.9 - Anemia, unspecified
--- NOTE | 2020-11-29 13:04 | Hospitalist Progress Note ---
Date of Service November 29, 2020 Assessment & Plan (1) Cardiac arrest: -Sudden unresponsiveness within 15 minutes of dialysis session on 11/27/2020 with noted desaturation of 60s -Unsure if the patient had jose antonio cardiac arrest vs a syncopal/hypoxic episode as she was not wearing oxygen from leaving her house to HD until approximately 11:30 AM. - Underwent CPR for 6 to 8 minutes inappropriately as she is a DNR/DNI per her paperwork, confirmed with patient herself, and her family who is present at bedside ( brother, sister, niece) - fortunately it does not appear there are any broken ribs on CTA or CXR. Monitor closely. Developing ecchymosis over the chest wall. -Did not require defibrillation or IV meds at bedside during possible cardiac arrest -Serial troponins are mildly elevated which is likely due to hypoxic event and is complicated by end-stage renal disease. Doubt any ACS -Daily EKGs-remain unremarkable -Echo of the heart showed: LV is normal in size with EF of 55 to 60%, RV systolic function is normal, left and right atria are normal and there is mild mitral regurgitation -Remains stable and denies any symptoms (2) ESRD (end stage renal disease): -Recently started HD, MWF, today was her second outpatient session at [facility] dialysis. Previously followed with Dr. Penn with nephrology with during her hospitalization, will consult nephrology for HD. -Creatinine/BUN elevated at 5.45/49 respectively -R jugular perma cath in place placed during last admission by Dr. Darby. -Appreciate nephrology input and recommendation -We will continue hemodialysis -We will transfer the patient to medical telemetry unit Anemia secondary to chronic kidney disease Received 1 unit of blood transfusion yesterday Hemoglobin is 8.7 today (3) Congestive heart disease: - Chronic, diastolic - Nephrology consult for fluid management - Continue Lasix 40mg PO BID - Hemodialysis initiated today around ~1130, family was called around noon of the event, unsure the amount of fluid pulled off. Scheduled for 3.5 hours. - cont o2-during last admission, nocturnal pulse oximetry done and pt required 2L NC at night, 2 step exercise done an pt required 1 L NC at rest and with ambulation. Patient also noted that she would not wear oxygen at all times per respiratory therapist. -No acute symptoms (4) Hypertension: - Continue carvedilol 3.125 mg BID, lasix 40mg BID and hydralazine 50mg TID -Blood pressure is well controlled (5) Dyslipidemia: - Cont coenzyme Q10 (6) Type 2 diabetes mellitus: - Most recent ha1c 7.1 on 11/18/20 - On Basaglar 20 U Qam per pt, med rec shows 15 U HS - consult glycemic pharmacy - Continue insulin sliding scale and lantus during hospital course (7) Diabetic neuropathy: - Chronic (8) Hypokalemia: - Potassium 3.3, will replace with 40 meq PO. Monitor with am BMP. (9) Anemia: - Hgb 8.6 - Received Epogen on 11/24/20 - continue Nephrocaps and phosphate binder DVT ppx: - teds, scds CODE: Patient is now for full code And this was discussed by the wildlife conservation professor with the patient and the family member Admission and Anticipated Discharge Date Admission Date: November 29, 2020 Subjective 11/28/2020 The patient was seen and examined in telemetry unit She was admitted yesterday with an unresponsive episode during dialysis She became acutely unresponsive within the first 15 minutes of the dialysis treatment when CPR was started Her O2 saturation was noted to be very low at the onset of unresponsiveness Has been feeling a lot better since admission and denies any symptoms as of this morning 11/29/2020 The patient was seen and examined in telemetry unit She has been feeling much better and denies any symptoms She will get PT and OT evaluation before discharge Review of Systems Review of Systems: All systems reviewed and are unremarkable except as noted below Physical Exam Physical Exam: Lying in bed comfortably Constitutional: well developed, well nourished and + obese; not ill appearing Eyes: PERRL, conjunctivae normal, anicteric sclerae ENMT: external ear and nose normal, oropharynx normal Neck: trachea midline, no thyromegaly Respiratory: no respiratory distress Auscultation: lungs clear to auscultation bilaterally and + crackles (Minimal crackles at the bases) Cardiovascular: Rate/Rhythm: regular rate and regular rhythm Heart Sounds: no murmur Extremities: + edema (Trace edema bilaterally) Gastrointestinal (Abdomen): Inspection/Auscultation: normal bowel sounds; abdomen not distended Percussion/Palpation: abdomen soft; abdomen nontender Musculoskeletal: No acute arthritis in any joint Neurologic: Alert, awake and oriented x3. No focal sensory and motor deficit appreciated Psychiatric: A+Ox3, euthymic affect Lymphatic: no cervical or axillary lymphadenopathy Results & Data Results & Data ([facility]) Vital Signs (Past 12 Hours) Vital Signs Temp Pulse Pulse Resp BP BP Pulse Ox 11/29/20 12:08 36.7 C 68 16 150/76 H 98 11/29/20 08:10 36.7 C 75 75 16 150/73 H 150/73 H 98 11/29/20 03:46 36.9 C 74 20 164/70 H 96 Laboratory Results Short CBC 11/29/20 Range/Units 09:02 WBC 7.58 (4.8-10.8) K/uL Hgb 8.7 L (12.0-16.0) g/dL Hct 26.8 L (37-47) % Plt Count 78 L (130-400) K/uL BMP 11/29/20 09:02 Sodium 137 Potassium 3.8 Chloride 105 Carbon Dioxide 26 BUN 32 H Creatinine 4.69 H* D Glucose 101 H Calcium 8.1 L Liver Function 11/29/20 Range/Units 09:02 Total Bilirubin 0.5 (0.2-1) mg/dl AST 34 (15-37) U/L ALT 38 (12-78) U/L Alkaline Phosphatase 70 (45-117) U/L Albumin 2.9 L (3.4-5.0) gm/dl Medications Administered Current Inpatient Medications Acetaminophen (Acetaminophen 325 Mg Tab) 650 mg PO Q4H PRN PRN Reason: Moderate Pain Stop: 12/27/20 17:03 Last Admin: 11/29/20 04:16 Dose: 650 mg Documented by: Calcium Acetate (Calcium Acetate 667 Mg Cap/Tab) 667 mg PO TIDM JOSE FRANCISCO Stop: 12/27/20 17:03 Last Admin: 11/29/20 12:53 Dose: 667 mg Documented by: Carvedilol (Carvedilol 3.125 Mg Tab) 3.125 mg PO BID JOSE FRANCISCO Stop: 12/27/20 20:59 Last Admin: 11/29/20 08:54 Dose: 3.125 mg Documented by: Dextrose (Dextrose 50% 50 Ml Syringe) 25 - 50 ml IV UD PRN; Protocol PRN Reason: Hypoglycemia Protocol Stop: 12/27/20 17:03 Furosemide (Furosemide 40 Mg Tab) 40 mg PO BID JOSE FRANCISCO Stop: 12/27/20 20:59 Last Admin: 11/29/20 08:54 Dose: 40 mg Documented by: Glucagon (Glucagon For Inj 1 Mg Vial) 1 mg SQ UD PRN; Protocol PRN Reason: Hypoglycemia Protocol Stop: 12/27/20 17:03 Glucose (Glucose 10 Tabs/Tube) 4 - 8 tabs PO UD PRN; Protocol PRN Reason: Hypoglycemia Protocol Stop: 12/27/20 17:03 Glucose (Glucose 40% Gel 15 Gm Tube) 15 - 30 gm PO UD PRN; Protocol PRN Reason: Hypoglycemia Protocol Stop: 12/27/20 17:03 Hydralazine HCl (Hydralazine Tab 50 Mg Tab) 50 mg PO TID JOSE FRANCISCO Stop: 12/27/20 20:59 Last Admin: 11/29/20 08:54 Dose: 50 mg Documented by: Hydromorphone HCl (Hydromorphone Inj 0.5 Mg/0.5 Ml Syr) 0.5 mg IV Q3H PRN PRN Reason: Pain Stop: 12/11/20 17:03 Insulin Aspart (Insulin Aspart 100 Units/Ml 3 Ml Pen) 0 units SC ACHS [facility] Stop: 12/27/20 17:03 Last Admin: 11/29/20 12:53 Dose: 5 units Documented by: Insulin Glargine (Insulin Glargine Solostar 100 Units/Ml 3 Ml Pen) 0 units SC QAM JOSE FRANCISCO; Protocol Stop: 12/28/20 08:59 Last Admin: 11/29/20 08:55 Dose: Not Given Documented by: Miscellaneous (Carbohydrates For Hypoglycemia ) 15 - 30 gm PO UD PRN PRN Reason: Hypoglycemia Protocol Stop: 12/27/20 17:03 Miscellaneous Information (Pharmacy Glycemic Mgmt Consult) 1 ea N/A UD PRN PRN Reason: Consult Stop: 12/27/20 17:24 Vitamin B Complex/Folic Acid (Nephrocaps) 1 cap PO QAM JOSE FRANCISCO Stop: 12/28/20 08:59 Last Admin: 11/29/20 08:54 Dose: 1 cap Documented by: Vitamin D (Cholecalciferol 1,000 Units 25 Mcg Tab) 4,000 units PO DAILY JOSE FRANCISCO Stop: 12/28/20 08:59 Last Admin: 11/29/20 08:54 Dose: 4,000 units Documented by: (1) Hypertension Hypertension type: unspecified Qualified Code(s): I10 - Essential (primary) hypertension (2) Anemia Anemia type: unspecified type Qualified Code(s): D64.9 - Anemia, unspecified
[2020-11-30 05:55] LABS: Hematocrit (blood only) 26.2 % (37-47); Hemoglobin 8.6 g/dL (12.0-16.0); Mean Corpuscular Hemoglobin 29.7 pg (25-34); Mean Corpuscular Hgb Conc 32.8 g/dL (32-36); Mean Corpuscular Volume 90.3 fL (80-100); RDW Coefficient of Variation 15.4 % (11.5-14.5); RDW Standard Deviation 50.9 fL (36.4-46.3); White Blood Count 7.65 K/uL (4.8-10.8)
[2020-11-30 05:56] LABS: Mean Platelet Volume 9.8 fL (7.4-10.4); Platelet Count 93 K/uL (130-400)
[2020-11-30 06:36] LABS: Albumin Globulin Ratio 0.9 (0.9-2); Albumin Level 2.9 gm/dl (3.4-5.0); BUN Creatinine Ratio 8.6 (10-20); Bilirubin,Total 0.4 mg/dl (0.2-1); Calcium 7.9 mg/dl (8.5-10.1); Creatinine Clr Calc Pharmacy 8.2 ml/min; Est GFR (African American) 7.1 ml/min; Est GFR (Non-African American) 6.1 ml/min; Globulin 3.3 gm/dl (2.5-4.0); Potassium 4.1 mmol/L (3.5-5.1); Total Protein 6.2 gm/dl (6.4-8.2)
[2020-11-30] MEDS: hydrALAZINE TAB 50 MG TAB PO SCH ×3 (08:46→20:34)
[2020-11-30] MEDS: CALCIUM ACETATE 667 MG CAP/TAB PO SCH ×3 (08:46→18:11)
[2020-11-30] MEDS: carvediloL 3.125 MG TAB PO SCH ×2 (08:47→20:34)
[2020-11-30] MEDS: FUROSEMIDE 40 MG TAB PO SCH ×2 (08:47→20:34)
[2020-11-30] MEDS: CHOLECALCIFEROL 1,000 UNITS 25 MCG TAB PO SCH (08:47)
[2020-11-30] MEDS: INSULIN ASPART 100 UNITS/ML 3 ML PEN SC SCH ×4 (08:48→20:20)
[2020-11-30] MEDS: INSULIN GLARGINE SOLOSTAR 100 UNITS/ML 3 ML PEN SC SCH (08:49)
[2020-11-30] MEDS: NEPHROCAPS PO SCH (08:53)
[2020-11-30] MEDS ORDERED: IRON SUCROSE 100 MG in SYRINGE 0 ML IV ONE (09:00)
--- NOTE | 2020-11-30 10:08 | Nephrology Progress Note ---
Date of Service November 30, 2020 Assessment & Plan (1) ESRD (end stage renal disease): HD today per [facility] schedule. Orders entered into EMR and reviewed with HD nurse. Plan 3.5 hrs today per outpatient Rx. Continue nephrocaps. Low PO4 diet. Medications appropriately dosed for kidney dysfunction. (2) Anemia: Epogen 33323 units given on 11/21/2020. 1 u PRBC transfusion support provided with HD 11/27. Venofer 100 mg with HD today.. (3) Hypoxia: Oxygenating appropriately with supplemental O2. (4) Syncope and collapse: No abnormal rhythms on tele. Clinically improved. Suspect hypoxic/vagal event. Admission and Anticipated Discharge Date Admission Date: November 29, 2020 Subjective No acute events overnight. Jeri feels well this AM. She is breathing comfortably. Appetite is good. No chest pain or palpitations. Review of Systems Review of Systems: All systems reviewed & are unremarkable except as noted in HPI & below Physical Exam Constitutional: well developed; no acute distress Eyes: no scleral abnormality and no corneal abnormality ENMT: Mouth: no oral mucosal abnormality and oral mucous membranes not dry Neck: normal visual inspection and trachea midline Respiratory: normal respiratory effort Auscultation: lungs clear to a uscultation bilaterally Cardiovascular: Rate/Rhythm: regular rate Heart Sounds: normal S1 and normal S2 Extremities: no edema Musculoskeletal: Extremities: no cyanosis and no clubbing Skin: normal turgor; no lesions Neurologic: Motor/Sensory: no tremor and no asterixis Psychiatric: Orientation: alert and oriented x 3 Results & Data ([facility]) Vital Signs (Past 12 Hours) Vital Signs Temp Pulse Pulse Pulse Resp BP Pulse Ox 11/30/20 07:29 36.4 C L 64 16 178/76 H 98 11/30/20 07:00 64 11/30/20 04:00 36.7 C 64 18 150/69 H 97 11/30/20 01:49 76 11/29/20 23:00 36.8 C 78 18 162/75 H 96 Laboratory Results Laboratory Results - last 24 hr 11/28/20 11/29/20 11/29/20 11:14 11:37 16:56 WBC RBC Hgb Hct MCV MCH MCHC RDW Std Deviation RDW Coeff of Rico Plt Count MPV Sodium Potassium Chloride Carbon Dioxide Anion Gap BUN Creatinine Est Cr Clr Drug Dosing Est GFR ( Amer) Est GFR (Non-Af Amer) BUN/Creatinine Ratio Glucose POC Glucose 117 H 159 H Calcium Total Bilirubin AST ALT Alkaline Phosphatase Total Protein Albumin Globulin Albumin/Globulin Ratio Crossmatch See Detail 11/29/20 11/30/20 11/30/20 21:10 05:26 05:26 WBC 7.65 RBC 2.90 L Hgb 8.6 L Hct 26.2 L MCV 90.3 MCH 29.7 MCHC 32.8 RDW Std Deviation 50.9 H RDW Coeff of Rico 15.4 H Plt Count 93 L MPV 9.8 Sodium 135 L Potassium 4.1 Chloride 102 Carbon Dioxide 28 Anion Gap 5.0 BUN 56 H D Creatinine 6.55 H* D Est Cr Clr Drug Dosing 8.2 Est GFR ( Amer) 7.1 Est GFR (Non-Af Amer) 6.1 BUN/Creatinine Ratio 8.6 L Glucose 137 H POC Glucose 182 H Calcium 7.9 L Total Bilirubin 0.4 AST 23 ALT 33 Alkaline Phosphatase 68 Total Protein 6.2 L Albumin 2.9 L Globulin 3.3 Albumin/Globulin Ratio 0.9 Crossmatch 11/30/20 07:40 WBC RBC Hgb Hct MCV MCH MCHC RDW Std Deviation RDW Coeff of Rico Plt Count MPV Sodium Potassium Chloride Carbon Dioxide Anion Gap BUN Creatinine Est Cr Clr Drug Dosing Est GFR ( Amer) Est GFR (Non-Af Amer) BUN/Creatinine Ratio Glucose POC Glucose 142 H Calcium Total Bilirubin AST ALT Alkaline Phosphatase Total Protein Albumin Globulin Albumin/Globulin Ratio Crossmatch PG Care Time/CCT Total # of Minutes Spent Total Time Spent with Patient: Total time spent is greater than 50% in coordination of care (as documented) at patient's floor/unit and/or counseling patient: Coding Level of Care Code 95936 Subseq Hosp Care Lvl 3 Diagnoses ESRD (end stage renal disease) N18.6 Anemia D64.9 Anemia type: unspecified type Hypoxia R09.02 Syncope and collapse R55 (1) Anemia Anemia type: unspecified type Qualified Code(s): D64.9 - Anemia, unspecified
--- NOTE | 2020-11-30 13:21 | Pharmacy Report ---
Pharmacy Glycemic Short Note 2 - Date of Service November 30, 2020 - Glycemic Short BSG Results (Last 24 hours): 11/29/20 11/29/20 11/30/20 16:56 21:10 05:26 Glucose 137 H POC Glucose 159 H 182 H 11/30/20 11/30/20 07:40 11:34 Glucose POC Glucose 142 H 169 H OUTPATIENT ANTIDIABETIC REGIMEN: * Basalgar 15-20 units HS ASSESSMENT: 11/30/20 * BSGs yesterday were [phone] mg/dL. Patient received 13 units of bolus insulin yesterday. * Fasting today is 137 mg/dL. * Resume Lantus 5 units daily. * Blood sugars trended upwards throughout the day. Could be due to lack of basal or need for more carbohydrate coverage. Tighten CR slightly for now. BACKGROUND * Ms Riley is a 65 y/o F admitted with syncope vs cardiac arrest. Recent start on dialysis. Recent previous admission demonstrates patient tolerated Lantus 5 units daily + Novolog CF 30 CR 12. BSGs did tend to rise throughout the day. * Continue Lantus 5 units daily + tightened Novolog to prevent BSG increases. PLAN FOR INPATIENT GLYCEMIC CONTROL: * Basal insulin * Lantus 5 units SQ daily * Bolus insulin * NovoLog per scale ACHS or Q6hrs while NPO * Goal Range: Low 110 mg/dL - High 140 mg/dL * Correction Factor: 25 mg/dL/unit * Nutritional / Prandial insulin per carb ratio of 1 unit per 7 grams CHO consumed DISCHARGE RECOMMENDATIONS * Patient is on hemodialysis so HbA1C may not accurately reflect BSG control at home. * Recommend following blood sugars with a log and adjusting insulin as appropriate.
--- NOTE | 2020-11-30 13:53 | Hospitalist Progress Note ---
Date of Service November 30, 2020 Assessment & Plan (1) Cardiac arrest: -Sudden unresponsiveness within 15 minutes of dialysis session on 11/27/2020 with noted desaturation of 60s -Unsure if the patient had jose antonio cardiac arrest vs a syncopal/hypoxic episode as she was not wearing oxygen from leaving her house to HD until approximately 11:30 AM. - Underwent CPR for 6 to 8 minutes inappropriately as she is a DNR/DNI per her paperwork, confirmed with patient herself, and her family who is present at bedside ( brother, sister, niece) - fortunately it does not appear there are any broken ribs on CTA or CXR. Monitor closely. Developing ecchymosis over the chest wall. -Did not require defibrillation or IV meds at bedside during possible cardiac arrest -Serial troponins are mildly elevated which is likely due to hypoxic event and is complicated by end-stage renal disease. Doubt any ACS -Daily EKGs-remain unremarkable -Echo of the heart showed: LV is normal in size with EF of 55 to 60%, RV systolic function is normal, left and right atria are normal and there is mild mitral regurgitation Denies any cardiac symptoms and remains hemodynamically stable We will get PT and OT evaluation and possible discharge tomorrow (2) ESRD (end stage renal disease): -Recently started HD, MWF, today was her second outpatient session at [facility]. Previously followed with Dr. Penn with nephrology with during her hospitalization, will consult nephrology for HD. -Creatinine/BUN elevated at 5.45/49 respectively -R jugular perma cath in place placed during last admission by Dr. Darby. -Appreciate nephrology input and recommendation -We will continue hemodialysis -We will transfer the patient to medical telemetry unit Will have hemodialysis today and discharge tomorrow Anemia secondary to chronic kidney disease Received 1 unit of blood transfusion yesterday Hemoglobin is 8.7 today (3) Congestive heart disease: - Chronic, diastolic - Nephrology consult for fluid management - Continue Lasix 40mg PO BID - Hemodialysis initiated today around ~1130, family was called around noon of the event, unsure the amount of fluid pulled off. Scheduled for 3.5 hours. - cont o2-during last admission, nocturnal pulse oximetry done and pt required 2L NC at night, 2 step exercise done an pt required 1 L NC at rest and with ambulation. Patient also noted that she would not wear oxygen at all times per respiratory therapist. No signs and/or symptoms of fluid overload (4) Hypertension: - Continue carvedilol 3.125 mg BID, lasix 40mg BID and hydralazine 50mg TID -Blood pressure is well controlled (5) Dyslipidemia: - Cont coenzyme Q10 (6) Type 2 diabetes mellitus: - Most recent ha1c 7.1 on 11/18/20 - On Basaglar 20 U Qam per pt, med rec shows 15 U HS - consult glycemic pharmacy - Continue insulin sliding scale and lantus during hospital course (7) Diabetic neuropathy: - Chronic (8) Hypokalemia: - Potassium 3.3, will replace with 40 meq PO. Monitor with am BMP. (9) Anemia: - Hgb 8.6 - Received Epogen on 11/24/20 - continue Nephrocaps and phosphate binder DVT ppx: - teds, scds CODE: Patient is now for full code And this was discussed by the teacher of the sight impaired with the patient and the family member Admission and Anticipated Discharge Date Admission Date: November 29, 2020 Subjective 11/28/2020 The patient was seen and examined in telemetry unit She was admitted yesterday with an unresponsive episode during dialysis She became acutely unresponsive within the first 15 minutes of the dialysis treatment when CPR was started Her O2 saturation was noted to be very low at the onset of unresponsiveness Has been feeling a lot better since admission and denies any symptoms as of this morning 11/29/2020 The patient was seen and examined in telemetry unit She has been feeling much better and denies any symptoms She will get PT and OT evaluation before discharge 11/30/2020 The patient was seen and examined in medical telemetry unit She has been feeling much better and denies any cardiac and/or other symptoms She will have dialysis today and will be discharged tomorrow Review of Systems Review of Systems: All systems reviewed and are unremarkable except as noted below Physical Exam Physical Exam: Sitting on a chair without any acute distress Constitutional: well developed, well nourished and + obese; not ill appearing Eyes: PERRL, conjunctivae normal, anicteric sclerae ENMT: external ear and nose normal, oropharynx normal Neck: trachea midline, no thyromegaly Respiratory: no respiratory distress Auscultation: lungs clear to auscultation bilaterally and + crackles (Minimal crackles at the bases) Cardiovascular: Rate/Rhythm: regular rate and regular rhythm Heart Sounds: no murmur Extremities: + edema (Trace edema bilaterally) Gastrointestinal (Abdomen): Inspection/Auscultation: normal bowel sounds; abdomen not distended Percussion/Palpation: abdomen soft; abdomen nontender Musculoskeletal: No acute arthritis in any joint Neurologic: no focal motor deficits Psychiatric: A+Ox3, euthymic affect Lymphatic: no cervical or axillary lymphadenopathy Results & Data Results & Data ([facility]) Vital Signs (Past 12 Hours) Vital Signs Temp Pulse Pulse Pulse Resp BP Pulse Ox 11/30/20 11:00 36.4 C L 71 20 157/69 H 96 11/30/20 07:29 36.4 C L 64 16 178/76 H 98 11/30/20 07:00 64 11/30/20 04:00 36.7 C 64 18 150/69 H 97 Laboratory Results Short CBC 11/30/20 Range/Units 05:26 WBC 7.65 (4.8-10.8) K/uL Hgb 8.6 L (12.0-16.0) g/dL Hct 26.2 L (37-47) % Plt Count 93 L (130-400) K/uL BMP 11/30/20 05:26 Sodium 135 L Potassium 4.1 Chloride 102 Carbon Dioxide 28 BUN 56 H D Creatinine 6.55 H* D Glucose 137 H Calcium 7.9 L Liver Function 11/30/20 Range/Units 05:26 Total Bilirubin 0.4 (0.2-1) mg/dl AST 23 (15-37) U/L ALT 33 (12-78) U/L Alkaline Phosphatase 68 (45-117) U/L Albumin 2.9 L (3.4-5.0) gm/dl Medications Administered Current Inpatient Medications Acetaminophen (Acetaminophen 325 Mg Tab) 650 mg PO Q4H PRN PRN Reason: Moderate Pain Stop: 12/27/20 17:03 Last Admin: 11/29/20 04:16 Dose: 650 mg Documented by: Calcium Acetate (Calcium Acetate 667 Mg Cap/Tab) 667 mg PO TIDM JOSE FRANCISCO Stop: 12/27/20 17:03 Last Admin: 11/30/20 12:16 Dose: 667 mg Documented by: Carvedilol (Carvedilol 3.125 Mg Tab) 3.125 mg PO BID [facility] Stop: 12/27/20 20:59 Last Admin: 11/30/20 08:47 Dose: 3.125 mg Documented by: Dextrose (Dextrose 50% 50 Ml Syringe) 25 - 50 ml IV UD PRN; Protocol PRN Reason: Hypoglycemia Protocol Stop: 12/27/20 17:03 Furosemide (Furosemide 40 Mg Tab) 40 mg PO BID JOSE FRANCISCO Stop: 12/27/20 20:59 Last Admin: 11/30/20 08:47 Dose: 40 mg Documented by: Glucagon (Glucagon For Inj 1 Mg Vial) 1 mg SQ UD PRN; Protocol PRN Reason: Hypoglycemia Protocol Stop: 12/27/20 17:03 Glucose (Glucose 10 Tabs/Tube) 4 - 8 tabs PO UD PRN; Protocol PRN Reason: Hypoglycemia Protocol Stop: 12/27/20 17:03 Glucose (Glucose 40% Gel 15 Gm Tube) 15 - 30 gm PO UD PRN; Protocol PRN Reason: Hypoglycemia Protocol Stop: 12/27/20 17:03 Hydralazine HCl (Hydralazine Tab 50 Mg Tab) 50 mg PO TID [facility] Stop: 12/27/20 20:59 Last Admin: 11/30/20 08:46 Dose: 50 mg Documented by: Hydromorphone HCl (Hydromorphone Inj 0.5 Mg/0.5 Ml Syr) 0.5 mg IV Q3H PRN PRN Reason: Pain Stop: 12/11/20 17:03 Insulin Aspart (Insulin Aspart 100 Units/Ml 3 Ml Pen) 0 units SC ACHS [facility] Stop: 12/27/20 17:03 Last Admin: 11/30/20 12:16 Dose: 7 units Documented by: Insulin Glargine (Insulin Glargine Solostar 100 Units/Ml 3 Ml Pen) 5 units SC QAM [facility]; Protocol Stop: 12/30/20 08:59 Last Admin: 11/30/20 08:49 Dose: 5 units Documented by: Miscellaneous (Carbohydrates For Hypoglycemia ) 15 - 30 gm PO UD PRN PRN Reason: Hypoglycemia Protocol Stop: 12/27/20 17:03 Miscellaneous Information (Pharmacy Glycemic Mgmt Consult) 1 ea N/A UD PRN PRN Reason: Consult Stop: 12/27/20 17:24 Vitamin B Complex/Folic Acid (Nephrocaps) 1 cap PO QAM [facility] Stop: 12/28/20 08:59 Last Admin: 11/30/20 08:53 Dose: 1 cap Documented by: Vitamin D (Cholecalciferol 1,000 Units 25 Mcg Tab) 4,000 units PO DAILY [facility] Stop: 12/28/20 08:59 Last Admin: 11/30/20 08:47 Dose: 4,000 units Documented by: (1) Hypertension Hypertension type: unspecified Qualified Code(s): I10 - Essential (primary) hypertension (2) Anemia Anemia type: unspecified type Qualified Code(s): D64.9 - Anemia, unspecified
[2020-12-01 07:54] LABS: BUN Creatinine Ratio 7.2 (10-20); Creatinine Clr Calc Pharmacy 11.5 ml/min; Est GFR (African American) 10.4 ml/min; Magnesium 2.1 mg/dl (1.8-2.4); Potassium 3.6 mmol/L (3.5-5.1)
[2020-12-01] MEDS: INSULIN ASPART 100 UNITS/ML 3 ML PEN SC SCH ×2 (08:50→12:10)
[2020-12-01] MEDS: CALCIUM ACETATE 667 MG CAP/TAB PO SCH ×2 (08:52→12:10)
[2020-12-01] MEDS: FUROSEMIDE 40 MG TAB PO SCH (08:52)
[2020-12-01] MEDS: INSULIN GLARGINE SOLOSTAR 100 UNITS/ML 3 ML PEN SC SCH (08:52)
[2020-12-01] MEDS: hydrALAZINE TAB 50 MG TAB PO SCH ×2 (08:53→14:32)
[2020-12-01] MEDS: carvediloL 3.125 MG TAB PO SCH (08:53)
[2020-12-01] MEDS: CHOLECALCIFEROL 1,000 UNITS 25 MCG TAB PO SCH (08:53)
[2020-12-01] MEDS: NEPHROCAPS PO SCH (08:53)
--- NOTE | 2020-12-01 09:58 | Nephrology Progress Note ---
Date of Service December 01, 2020 Assessment & Plan (1) ESRD (end stage renal disease): Adequate clearance with HD yesterday. BP acceptable. Next treatment tomorrow per [facility] schedule. Resume outpatient Rx at [facility] if discharged. Continue nephrocaps. Low PO4 diet. Medications appropriately dosed for kidney dysfunction. (2) Anemia: Epogen 22302 units given on 11/21/2020. 1 u PRBC transfusion support provided with HD 11/27. Venofer 100 mg with HD yesterday. (3) Hypoxia: Oxygenating appropriately with supplemental O2. (4) Syncope and collapse: No abnormal rhythms on tele. Clinically improved. Suspect hypoxic/vagal event. Admission and Anticipated Discharge Date Admission Date: November 29, 2020 Subjective No acute events overnight. Jeri feels well this AM. She hopes to be discharged home. Completed HD yesterday without complications. Review of Systems Review of Systems: All systems reviewed & are unremarkable except as noted in HPI & below Physical Exam Constitutional: well developed; no acute distress Eyes: no scleral abnormality and no corneal abnormality ENMT: Mouth: no oral mucosal abnormality and oral mucous membranes not dry Neck: normal visual inspection and trachea midline Respiratory: normal respiratory effort Auscultation: lungs clear to auscultation bilaterally Cardiovascular: Rate/Rhythm: regular rate Heart Sounds: normal S1 and normal S2 Extremities: no edema Musculoskeletal: Extremities: no cyanosis and no clubbing Skin: normal turgor; no lesions Neurologic: Motor/Sensory: no tremor and no asterixis Psychiatric: Orientation: alert and oriented x 3 Results & Data ([facility]) Vital Signs (Past 12 Hours) Vital Signs Temp Pulse Pulse Resp BP Pulse Ox 12/01/20 07:33 36.7 C 73 16 155/72 H 97 12/01/20 07:00 66 12/01/20 03:23 36.8 C 74 18 147/68 H 95 11/30/20 23:34 75 11/30/20 23:15 36.8 C 79 20 136/71 97 Laboratory Results Laboratory Results - last 24 hr 11/30/20 11/30/20 12/01/20 11:34 20:10 06:49 Sodium 138 Potassium 3.6 Chloride 104 Carbon Dioxide 27 Anion Gap 7.0 BUN 33 H Creatinine 4.75 H* D Est Cr Clr Drug Dosing 11.5 Est GFR ( Amer) 10.4 Est GFR (Non-Af Amer) 9.0 BUN/Creatinine Ratio 7.2 L Glucose 112 H POC Glucose 169 H 106 H Calcium 8.0 L Magnesium 2.1 12/01/20 07:44 Sodium Potassium Chloride Carbon Dioxide Anion Gap BUN Creatinine Est Cr Clr Drug Dosing Est GFR ( Amer) Est GFR (Non-Af Amer) BUN/Creatinine Ratio Glucose POC Glucose 122 H Calcium Magnesium PG Care Time/CCT Total # of Minutes Spent Total Time Spent with Patient: Total time spent is greater than 50% in coordination of care (as documented) at patient's floor/unit and/or counseling patient: Coding Level of Care Code 98755 Subseq Hosp Care Lvl 3 Diagnoses ESRD (end stage renal disease) N18.6 Anemia D64.9 Anemia type: unspecified type Hypoxia R09.02 Syncope and collapse R55 (1) Anemia Anemia type: unspecified type Qualified Code(s): D64.9 - Anemia, unspecified
--- NOTE | 2020-12-01 13:44 | Hospitalist Progress Note ---
Date of Service December 01, 2020 Assessment & Plan (1) Cardiac arrest: -Sudden unresponsiveness within 15 minutes of dialysis session on 11/27/2020 with noted desaturation of 60s -Unsure if the patient had jose antonio cardiac arrest vs a syncopal/hypoxic episode as she was not wearing oxygen from leaving her house to HD until approximately 11:30 AM. - Underwent CPR for 6 to 8 minutes inappropriately as she is a DNR/DNI per her paperwork, confirmed with patient herself, and her family who is present at bedside ( brother, sister, niece) - fortunately it does not appear there are any broken ribs on CTA or CXR. Monitor closely. Developing ecchymosis over the chest wall. -Did not require defibrillation or IV meds at bedside during possible cardiac arrest -Serial troponins are mildly elevated which is likely due to hypoxic event and is complicated by end-stage renal disease. Doubt any ACS -Daily EKGs-remain unremarkable -Echo of the heart showed: LV is normal in size with EF of 55 to 60%, RV systolic function is normal, left and right atria are normal and there is mild mitral regurgitation Denies any cardiac symptoms and remains hemodynamically stable Has been ambulating in the room without any problem Will be discharged home this afternoon (2) ESRD (end stage renal disease): -Recently started HD, MWF, today was her second outpatient session at [facility] dialysis. Previously followed with Dr. Penn with nephrology with during her hospitalization, will consult nephrology for HD. -Creatinine/BUN elevated at 5.45/49 respectively -R jugular perma cath in place placed during last admission by Dr. Darby. -Appreciate nephrology input and recommendation -We will continue hemodialysis -We will transfer the patient to medical telemetry unit -She will continue to have dialysis as an outpatient Anemia secondary to chronic kidney disease Received 1 unit of blood transfusion yesterday Hemoglobin is 8.7 today (3) Congestive heart disease: - Chronic, diastolic - Nephrology consult for fluid management - Continue Lasix 40mg PO BID - Hemodialysis initiated today around ~1130, family was called around noon of the event, unsure the amount of fluid pulled off. Scheduled for 3.5 hours. - cont o2-during last admission, nocturnal pulse oximetry done and pt required 2L NC at night, 2 step exercise done an pt required 1 L NC at rest and with ambulation. Patient also noted that she would not wear oxygen at all times per respiratory therapist. No signs and/or symptoms of fluid overload (4) Hypertension: - Continue carvedilol 3.125 mg BID, lasix 40mg BID and hydralazine 50mg TID -Blood pressure is well controlled (5) Dyslipidemia: - Cont coenzyme Q10 (6) Type 2 diabetes mellitus: - Most recent ha1c 7.1 on 11/18/20 - On Basaglar 20 U Qam per pt, med rec shows 15 U HS - consult glycemic pharmacy - Continue insulin sliding scale and lantus during hospital course (7) Diabetic neuropathy: - Chronic (8) Hypokalemia: - Potassium 3.3, will replace with 40 meq PO. Monitor with am BMP. Normalized (9) Anemia: - Hgb 8.6 - Received Epogen on 11/24/20 - continue Nephrocaps and phosphate binder DVT ppx: - teds, scds CODE: Patient is now for full code And this was discussed by the art history instructor with the patient and the family member Should be discharged home this afternoon Admission and Anticipated Discharge Date Admission Date: November 29, 2020 Subjective 11/28/2020 The patient was seen and examined in telemetry unit She was admitted yesterday with an unresponsive episode during dialysis She became acutely unresponsive within the first 15 minutes of the dialysis treatment when CPR was started Her O2 saturation was noted to be very low at the onset of unresponsiveness Has been feeling a lot better since admission and denies any symptoms as of this morning 11/29/2020 The patient was seen and examined in telemetry unit She has been feeling much better and denies any symptoms She will get PT and OT evaluation before discharge 11/30/2020 The patient was seen and examined in medical telemetry unit She has been feeling much better and denies any cardiac and/or other symptoms She will have dialysis today and will be discharged tomorrow 12/01/2020 The patient was seen and examined in medical telemetry unit She has been feeling a lot better today and wants to go home She has had dialysis yesterday and she will have dialysis as an outpatient from next session Denies any symptoms Review of Systems Review of Systems: All systems reviewed and are unremarkable except as noted below Physical Exam Physical Exam: Sitting on a chair without any acute distress Constitutional: well developed, well nourished and + obese; not ill appearing Eyes: PERRL, conjunctivae normal, anicteric sclerae ENMT: external ear and nose normal, oropharynx normal Neck: trachea midline, no thyromegaly Respiratory: no respiratory distress Auscultation: lungs clear to auscultation bilaterally and + crackles (Minimal crackles at the bases) Cardiovascular: Rate/Rhythm: regular rate and regular rhythm Heart Sounds: no murmur Extremities: + edema (Trace edema bilaterally) Gastrointestinal (Abdomen): Inspection/Auscultation: normal bowel sounds; abdomen not distended Percussion/Palpation: abdomen soft; abdomen nontender Musculoskeletal: No acute arthritis in any joint Neurologic: no focal motor deficits Psychiatric: A+Ox3, euthymic affect Lymphatic: no cervical or axillary lymphadenopathy Results & Data Results & Data ([facility]) Vital Signs (Past 12 Hours) Vital Signs Temp Pulse Pulse Resp BP Pulse Ox 12/01/20 11:49 36.6 C 84 16 153/74 H 96 12/01/20 07:33 36.7 C 73 16 155/72 H 97 12/01/20 07:00 66 12/01/20 03:23 36.8 C 74 18 147/68 H 95 Laboratory Results BMP 12/01/20 06:49 Sodium 138 Potassium 3.6 Chloride 104 Carbon Dioxide 27 BUN 33 H Creatinine 4.75 H* D Glucose 112 H Calcium 8.0 L Medications Administered Current Inpatient Medications Acetaminophen (Acetaminophen 325 Mg Tab) 650 mg PO Q4H PRN PRN Reason: Moderate Pain Stop: 12/27/20 17:03 Last Admin: 11/29/20 04:16 Dose: 650 mg Documented by: Calcium Acetate (Calcium Acetate 667 Mg Cap/Tab) 667 mg PO TIDM JOSE FRANCISCO Stop: 12/27/20 17:03 Last Admin: 12/01/20 12:10 Dose: 667 mg Documented by: Carvedilol (Carvedilol 3.125 Mg Tab) 3.125 mg PO BID JOSE FRANCISCO Stop: 12/27/20 20:59 Last Admin: 12/01/20 08:53 Dose: 3.125 mg Documented by: Dextrose (Dextrose 50% 50 Ml Syringe) 25 - 50 ml IV UD PRN; Protocol PRN Reason: Hypoglycemia Protocol Stop: 12/27/20 17:03 Furosemide (Furosemide 40 Mg Tab) 40 mg PO BID JOSE FRANCISCO Stop: 12/27/20 20:59 Last Admin: 12/01/20 08:52 Dose: 40 mg Documented by: Glucagon (Glucagon For Inj 1 Mg Vial) 1 mg SQ UD PRN; Protocol PRN Reason: Hypoglycemia Protocol Stop: 12/27/20 17:03 Glucose (Glucose 10 Tabs/Tube) 4 - 8 tabs PO UD PRN; Protocol PRN Reason: Hypoglycemia Protocol Stop: 12/27/20 17:03 Glucose (Glucose 40% Gel 15 Gm Tube) 15 - 30 gm PO UD PRN; Protocol PRN Reason: Hypoglycemia Protocol Stop: 12/27/20 17:03 Hydralazine HCl (Hydralazine Tab 50 Mg Tab) 50 mg PO TID JOSE FRANCISCO Stop: 12/27/20 20:59 Last Admin: 12/01/20 08:53 Dose: 50 mg Documented by: Hydromorphone HCl (Hydromorphone Inj 0.5 Mg/0.5 Ml Syr) 0.5 mg IV Q3H PRN PRN Reason: Pain Stop: 12/11/20 17:03 Insulin Aspart (Insulin Aspart 100 Units/Ml 3 Ml Pen) 0 units SC ACHS [facility] Stop: 12/27/20 17:03 Last Admin: 12/01/20 12:10 Dose: 8 units Documented by: Insulin Glargine (Insulin Glargine Solostar 100 Units/Ml 3 Ml Pen) 5 units SC QAM [facility]; Protocol Stop: 12/30/20 08:59 Last Admin: 12/01/20 08:52 Dose: 5 units Documented by: Miscellaneous (Carbohydrates For Hypoglycemia ) 15 - 30 gm PO UD PRN PRN Reason: Hypoglycemia Protocol Stop: 12/27/20 17:03 Miscellaneous Information (Pharmacy Glycemic Mgmt Consult) 1 ea N/A UD PRN PRN Reason: Consult Stop: 12/27/20 17:24 Vitamin B Complex/Folic Acid (Nephrocaps) 1 cap PO QAM [facility] Stop: 12/28/20 08:59 Last Admin: 12/01/20 08:53 Dose: 1 cap Documented by: Vitamin D (Cholecalciferol 1,000 Units 25 Mcg Tab) 4,000 units PO DAILY [facility] Stop: 12/28/20 08:59 Last Admin: 12/01/20 08:53 Dose: 4,000 units Documented by: (1) Hypertension Hypertension type: unspecified Qualified Code(s): I10 - Essential (primary) hypertension (2) Anemia Anemia type: unspecified type Qualified Code(s): D64.9 - Anemia, unspecified
--- NOTE | 2020-12-01 19:00 | Discharge Summary ---
Date of Service December 01, 2020 Admission HPI Per Admitting Provider This is a 65-year-old female with PMHx of ESRD on HD MWF, chronic congestive heart disease, HTN, HLD, DM type II, diabetic neuropathy, anemia who presents from [facility] for a c/o of having cardiac arrest. Staff performed cardiac arrest with chest compressions. She did not loose a pulse, and once EMS arrived, did not require shock or IV medications. She was able to talk to EMS on arrival. She is talking to staff here in the ER. Vitals are stable. Troponin is mildly elevated at 0.046. There are not changes on her EKG. Today was her second outpatient HD session. Jeri reports feeling "horrible" and hurts everywhere. She remembers being at dialysis and thinks that she was hooked up at 11:45, and it was right around noon when her family was called after the event. Patient cannot recall anything specifically until she woke up in an ambulance en route here. She wears oxygen 2 L chronically which was started after her last admission, feels like her breathing is okay currently. Patient notes that she did NOT take oxygen with her to dialysis as she does not have a portable tank. Patient was found to be hypoxic with O2 sats at 60% while at dialysis, and does not remember being placed on oxygen when she arrived. She is also noted as a DNR/DNI on the documentation notes that were sent to the hospital. Per documentation, she underwent CPR for 6 to 8 minutes there, it was not continued once EMS arrived as she was awake and talking when they got ot the scene. Patient was recently here at [facility] for hospitalization secondary to acute respiratory failure with hypoxia. During that time she was diagnosed with acute renal failure requiring dialysis. Patient's hospital stay was from 11/18/2020 through 11/24/2020. During that time underwent insertion of perma catheter in the right jugular by Dr. Darby on 11/20/2020. She was followed by nephrology, Dr. Penn, during that time. Admission Exam Per Admitting Provider Physical Exam: General: awake, alert, appears uncomfortable, answers all questions appropriately. Head: Normocephalic, atraumatic ENT: PERRL, EOMI, no pharyngeal exudate, mucous membranes moist Chest: + developing ecchymosis over sternum, Clear to auscultation, on 2L via NC with sats at 94%, no adventitious breath sounds, right jugular perma cath in place Cardiac: Regular rate and rhythm, no murmur, no JVD, normal peripheral pulses, good capillary refill Abdominal: NABS x 4 quadrants, soft, nondistended, nontender to palpation, no rebound or guarding Extremities: Normal inspection, no peripheral edema or erythema, calfs nontender to palpation Psych: Normal mood and affect Neuro: AAO x 3, strength intact bilaterally and rated 5/5, no motor deficits, speech is clear, no peripheral sensory deficits Principal Diagnosis Possible cardiac arrest during dialysis without any sequelae, hypoxic episode prior to cardiac arrest, end-stage renal disease on hemodialysis, hypertension, type 2 diabetes Discharge Exam Constitutional well developed, well nourished and + obese; not ill appearing Eyes PERRL, conjunctivae normal, anicteric sclerae ENMT external ear and nose normal, oropharynx normal Neck trachea midline, no thyromegaly Respiratory no respiratory distress Auscultation: lungs clear to auscultation bilaterally and + crackles (Minimal c rackles at the bases) Cardiovascular Rate/Rhythm: regular rate and regular rhythm Heart Sounds: no murmur Extremities: + edema (Trace edema bilaterally) Gastrointestinal (Abdomen) Inspection/Auscultation: normal bowel sounds; abdomen not distended Percussion/Palpation: abdomen soft; abdomen nontender Neurologic no focal motor deficits Psychiatric A+Ox3, euthymic affect Lymphatic no cervical or axillary lymphadenopathy Discharge Data Allergies Allergy/AdvReac Type Severity Reaction Status Date / Time daptomycin AdvReac sob Verified 11/27/20 13:55 Consultations 11/27/20 13:29 ED Decision to Admit Stat 11/27/20 17:04 Consult Nephrology Routine Ordered Studies 11/27/20 12:16 CT head/brain wo con Stat 11/27/20 12:22 CT angio chest PE protocol Stat Hospital Course (1) Cardiac arrest: -Sudden unresponsiveness within 15 minutes of dialysis session on 11/27/2020 with noted desaturation of 60s -Unsure if the patient had jose antonio cardiac arrest vs a syncopal/hypoxic episode as she was not wearing oxygen from leaving her house to HD until approximately 11:30 AM. - Underwent CPR for 6 to 8 minutes inappropriately as she is a DNR/DNI per her paperwork, confirmed with patient herself, and her family who is present at bedside ( brother, sister, niece) - fortunately it does not appear there are any broken ribs on CTA or CXR. Monitor closely. Developing ecchymosis over the chest wall. -Did not require defibrillation or IV meds at bedside during possible cardiac arrest -Serial troponins are mildly elevated which is likely due to hypoxic event and is complicated by end-stage renal disease. Doubt any ACS -Daily EKGs-remain unremarkable -Echo of the heart showed: LV is normal in size with EF of 55 to 60%, RV systolic function is normal, left and right atria are normal and there is mild mitral regurgitation Denies any cardiac symptoms and remains hemodynamically stable Has been ambulating in the room without any problem Will be discharged home this afternoon (2) ESRD (end stage renal disease): -Recently started HD, MWF, [facility] Previously followed with Dr. Penn with nephrology with during her hospitalization, will consult nephrology for HD. -Creatinine/BUN elevated at 5.45/49 respectively -R jugular perma cath in place placed during last admission by Dr. Darby. -Appreciate nephrology input and recommendation -We will continue hemodialysis -We will transfer the patient to medical telemetry unit -She will continue to have dialysis as an outpatient Anemia secondary to chronic kidney disease Received 1 unit of blood transfusion yesterday Hemoglobin is 8.7 today (3) Congestive heart disease: - Chronic, diastolic - Nephrology consult for fluid management - Continue Lasix 40mg PO BID - Hemodialysis initiated today around ~1130, family was called around noon of the event, unsure the amount of fluid pulled off. Scheduled for 3.5 hours. - cont o2-during last admission, nocturnal pulse oximetry done and pt required 2L NC at night, 2 step exercise done an pt required 1 L NC at rest and with ambulation. Patient also noted that she would not wear oxygen at all times per respiratory therapist. No signs and/or symptoms of fluid overload (4) Hypertension: - Continue carvedilol 3.125 mg BID, lasix 40mg BID and hydralazine 50mg TID -Blood pressure is well controlled (5) Dyslipidemia: - Cont coenzyme Q10 (6) Type 2 diabetes mellitus: - Most recent ha1c 7.1 on 11/18/20 - On Basaglar 20 U Qam per pt, med rec shows 15 U HS - consult glycemic pharmacy - Continue insulin sliding scale and lantus during hospital course (7) Diabetic neuropathy: - Chronic (8) Hypokalemia: - Potassium 3.3, will replace with 40 meq PO. Monitor with am BMP. Normalized (9) Anemia: - Hgb 8.6 - Received Epogen on 11/24/20 - continue Nephrocaps and phosphate binder DVT ppx: - teds, scds CODE: Patient is now for full code And this was discussed by the telecommunications clerk with the patient and the family member Should be discharged home this afternoon Total Time Total Time Spent Total Time Spent (In Minutes): 35 minutes Total Time Includes: Examination of the Patient, Discharge Planning, Medication Reconciliation and 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 With Other Providers Discharge Plan Discharge Items Patient Disposition: Home - Home Health Services Reason For Visit: CARDIAC ARREST Discharge Diagnosis: Possible cardiac arrest during dialysis without any sequelae, hypoxic episode prior to cardiac arrest, end-stage renal disease on hemodialysis, hypertension, type 2 diabetes Condition on Discharge: Good Activity: Resume your previous activity Non-emergency contact: Primary Care Provider Call non-emergency contact if: you have any medication questions and your symptoms worsen Follow-up/Referrals: Melissa Bronson DO [Primary Care Provider] - (Date & Time 12/07/2020 9:50 AM Provider Melissa Bronson DO [facility] ) Diet: Carb Consistent or DM2, Dialysis Renal and Heart Healthy Addtl Attending Provider Instructions: Please take precautions to avoid fall Continue to take your oxygen as prescribed Please keep your appointments with your primary care doctor and dialysis center Pending Studies at Discharge: No Stand-Alone Forms: [employer], Smoking Cessation Medications and DC Order Prescriptions: Continued cholecalciferol (vitamin D3) [Vitamin D3] 2,000 unit Capsule 4,000 unit PO DAILY RF: 0 furosemide 40 mg tablet 40 mg PO BID RF: 0 coenzyme Q10 [Co Q-10] 100 mg Capsule 100 mg PO QAM RF: 0 carvedilol 3.125 mg Tablet 3.125 mg PO BID Qty: 30 RF: 0 hydralazine 50 mg Tablet 50 mg PO TID Qty: 90 RF: 0 calcium acetate(phosphat bind) 667 mg Capsule 667 mg PO TIDM Qty: 90 RF: 0 Renal Caps 1 mg Capsule 1 cap PO QAM Qty: 90 RF: 0 multivitamin Tablet 1 tab PO QAM RF: 0 Basaglar KwikPen U-100 Insulin 100 unit/mL (3 mL) insulin pen 20 unit subcut QAM RF: 0 Discharge Orders: Discharge Order (Routine); Ordered 12/01/20 Ordered By: Emmanuel Horton Admission Data Admit Date/Time: 11/29/20 11:18 Attending Provider: Emmanuel Horton Admit Provider: Mirtha Ledesma Primary Care Provider: Melissa Bronson Other Providers: Emmanuel Horton ; Mary Penn Other Interventions: Discharge Summary Assessment (RN) Last Done: 12/01/20 14:15
== END 2020-12-01 15:00 | disposition home health service (06) | DRG 296 ==
LOC: 2S 12:12 → ED 12:12 → 2S 16:27 → 2N 11-29 13:04

== ENCOUNTER 2020-12-04 12:22 | Inpatient (IN) ==
[2020-12-04] MEDS ORDERED: ACETAMINOPHEN 1,000 MG/100 ML VIAL IV STA (12:34)
[2020-12-04 12:45] LABS: Hematocrit (blood only) 25.7 % (37-47); Hemoglobin 8.2 g/dL (12.0-16.0); Mean Corpuscular Hemoglobin 29.4 pg (25-34); Mean Corpuscular Hgb Conc 31.9 g/dL (32-36); Mean Corpuscular Volume 92.1 fL (80-100); RDW Coefficient of Variation 14.7 % (11.5-14.5); RDW Standard Deviation 50.2 fL (36.4-46.3); Red Blood Count 2.79 M/uL (4.2-5.4); White Blood Count 7.07 K/uL (4.8-10.8)
[2020-12-04 12:52] LABS: iSTAT Creatinine 5.7 mg/dl (0.6-1.3); iSTAT Hemoglobin 8.5 g/dl (12.0-16.0); iSTAT Ionized Calcium 1.09 mmol/l (1.12-1.32)
--- NOTE | 2020-12-04 12:56 | XRay Report ---
XR chest 1V portable HISTORY: 65 years-old Female Chest Pain . Acute atypical chest pain COMPARISON: Chest radiograph and CTA chest 03/30/2021 TECHNIQUE: Portable AP view of the chest. FINDINGS: Moderate enlargement of the cardiac silhouette. Pulmonary vascular congestion with interstitial coars ening. Calcified granuloma of the right upper lung. Linear left lung base atelectasis/scarring. Right IJ dual-lumen hemodialysis catheter distal tip projects over the superior cavoatrial junction. Trace pleural effusions. No pneumothorax. Bones appear grossly intact. IMPRESSION: 1. Cardiomegaly with mild pulmonary edema. 2. Trace pleural effusions. 3. Linear left lung base scarring/atelectasis. ACT 112: Negative or not required by law. The above report was generated using voice recognition software. It may contain grammatical, syntax o r spelling errors. Electronically signed by: Jesus Glass M.D. 12/04/2020 12:55 PM
[2020-12-04 12:57] LABS: Partial Thromboplastin Ratio 1.1; Partial Thromboplastin Time 29.3 Seconds (21.0-31.0)
[2020-12-04 12:59] LABS: Mean Platelet Volume 10.4 fL (7.4-10.4); Platelet Count 76 K/uL (130-400)
[2020-12-04 13:01] LABS: Basophils # (auto) 0.04 K/uL (0-0.2); Basophils % (auto) 0.6 %; Eosinophils % (auto) 2.8 %; Immature Granulocytes % (auto) 1.4 %; Lymphocytes # (auto) 0.86 K/uL (1.2-3.4); Lymphocytes % (auto) 12.2 %; Monocytes % (auto) 7.1 %; Neutrophils # (auto) 5.37 K/uL (1.4-6.5); Neutrophils % (auto) 75.9 %
[2020-12-04 13:20] LABS: Albumin Globulin Ratio 0.9 (0.9-2); Albumin Level 3.1 gm/dl (3.4-5.0); BUN Creatinine Ratio 10.9 (10-20); Bilirubin Direct 0.1 mg/dl (0-0.2); Bilirubin,Total 0.4 mg/dl (0.2-1); Calcium 8.2 mg/dl (8.5-10.1); Creatinine Clr Calc Pharmacy 10.8 ml/min; Est GFR (African American) 9.4 ml/min; Est GFR (Non-African American) 8.1 ml/min; Globulin 3.6 gm/dl (2.5-4.0); Magnesium 2.1 mg/dl (1.8-2.4); Phosphorus 3.5 mg/dl (2.5-4.9); Total Protein 6.7 gm/dl (6.4-8.2)
[2020-12-04 13:28] LABS: Thyroid Stimulating Hormone 3.61 uIu/ml (0.300-4.500)
--- NOTE | 2020-12-04 13:42 | Electrocardiogram Report ---
Test Reason : Blood Pressure : / mmHG Vent. Rate : 077 BPM Atrial Rate : 077 BPM P-R Int : 156 ms QRS Dur : 084 ms QT Int : 418 ms P-R-T Axes : 036 008 040 degrees QTc Int : 473 ms Normal sinus rhythm Nonspecific ST abnormality Abnormal ECG When compared with ECG of 29-NOV-2020 04:08, Nonspecific T wave abnormality, improved in Inferior leads Nonspecific T wave abnormality, improved in Anterolateral leads Confirmed by Favian Beck ([id number]) on 12/04/2020 1:42:12 PM Referred By: REFERRED SELF Confirmed By:Morgan Beck
--- NOTE | 2020-12-04 13:50 | CT Scan Report ---
CT head/brain wo con CLINICAL HISTORY: syncope COMPARISON STUDY: 11/27/2020 TECHNIQUE: Axial CT of the brain is performed from the vertex to the skull base. IV contrast was not administered for this examination. A dose lowering technique was utilized adhering to the principles of ALARA. CT DOSE: FINDINGS: There is an age-indeterminate lacunar infarct in the left basal ganglia which was not visualized with certainty on the preceding study. There is no evidence of acute hemorrhage. There is no evidence of midline shift. No mass lesions are visualized. There are patchy white matter hypodensities likely on a small vessel basis. There is no evidence of pathologic ventricular dilatation. There is no evidence of acute sinusitis IMPRESSION: 1. Small age-indeterminate lacunar infarct in the left basal ganglia. An MRI could be obtained in fol low-up as deemed clinically appropriate 2. No evidence of acute hemorrhage ACT 112: Negative or not required by law. Electronically signed by: Marco Nieto M.D. 12/04/2020 1:48 PM
--- NOTE | 2020-12-04 14:07 | CT Scan Report ---
CT chest diagnostic wo con CT DOSE: 1325.87 mGy.cm HISTORY: Atypical chest pain s/p chest compressions TECHNIQUE: Multiaxial CT images of the chest were performed without contrast. A dose lowering techni que was utilized adhering to the principles of ALARA. COMPARISON: Chest CTA 11/27/2020. FINDINGS: Bilateral anterolateral second through seventh rib fractures. No pneumothorax. Trace bilate ral pleural effusions. The heart is mildly enlarged. There is a trace pericardial effusion. Normal ca liber thoracic aorta. Limited views of the upper abdomen demonstrate a normal liver, spleen, and righ t adrenal gland. Stable 1.3 cm left adrenal gland nodule. Normal esophagus. Mild body wall edema is n oted. The central airways are patent. There is mild interlobular septal thickening with a few scatter ed small groundglass airspace opacities. This has slightly improved and is consistent with mild inter stitial pulmonary edema. A 7 mm nodule within the right upper lobe on image 99, unchanged. Bilateral calcified pleural plaques are again noted. Bibasilar linear densities, left greater than right, persi sts. This favors atelectasis. A pneumonia could also a similar appearance in the appropriate clinical setting. Stable 3 mm nodule within the right lower lobe in image 140. IMPRESSION: 1. Bilateral anterior second through seventh rib fractures. No pneumothorax. 2. Mild interstitial pulmonary edema and trace bilateral pleural effusions which have slightly improv ed. 3. Bibasilar linear densities favor subsegmental atelectasis. A pneumonia could also have a similar a ppearance in the appropriate clinical setting. 4. Stable 7 mm right upper lobe pulmonary nodule. Follow-up chest CT in 3-6 months is recommended for further evaluation. 5. Calcified pleural plaques. ACT 112: Positive. There are findings on this exam that require communication between the performing entity and the patient following Patient Test Result Information Act ([place] Act 112) guidelines. Electronically signed by: Duane Baeza M.D. 12/04/2020 2:05 PM
[2020-12-04 14:16] LABS: Troponin I 0.119 ng/ml (0-0.045)
--- NOTE | 2020-12-04 15:33 | History & Physical Report ---
Date of Service December 04, 2020 Assessment & Plan (1) Syncope and collapse: Plan: Pt is 65 y/o F with PMH ESRD on HD MWF, chronic diastolic congestive failure, HTN, HLD, DM II, diabetic neuropathy, anemia who presents from dialysis for c/o of having cardiac arrest prior to arrival. History obtained from ER staff, and patient. Reports patient was at dialysis and approximately 15 minutes into session it is reported she developed agonal respirations, unresponsiveness, did not feel pulse so started CPR with chest compressions. After first cycle of CPR report palpated pulse. Patient with recent hospitalization for similar event during dialysis Today in ER patient awake and alert, vital stable. Troponin: 0.12. Question cardiac arrest. DDx: Orthostatic hypotension, seizure, arrhythmia Monitor on telemetry Trend troponin Recent echo 11/28/2020: EF 55-60%, mild mitral regurgitation Will hold on repeat echo pending cardiology recommendations Cardiology consult Neurology consult CBC, BMP in a.m. (2) Multiple fractures of ribs of both sides: Plan: CT chest:Bilateral anterior second through seventh rib fractures. No pneumothorax Patient received chest compressions today Received Tylenol in ER with improvement of rib discomfort (3) CVA (cerebral vascular accident): Plan: CT head: Small age-indeterminate lacunar infarct in the left basal ganglia. No evidence of acute hemorrhage MRI brain U/S carotids We will hold on echo as had echo 1 week ago aspiration precautions PT/OT consult Aspirin, statin neurology consult (4) Chronic diastolic heart failure: Plan: EF: 55-60% on 11/28/2020 echo Currently appears euvolemic Continue oral Lasix 40 mg twice daily Nephrology consult for assistance with hemodialysis (5) End stage renal failure on dialysis: Plan: ESRD on HD on MWF Follows with [facility] Has right jugular perma cath in place Continue renal meds Nephrology consult (6) Type 2 diabetes mellitus: Plan: A1c: 7.1 on 11/18/20 Hold home Basaglar Basal/bolus insulin per protocol. Glycemic pharmacy consult for assistance with glycemic management (7) Hypertension: Plan: Continue carvedilol 3.125 mg BID, lasix 40mg BID and hydralazine 50mg TID (8) Anemia: Plan: Anemia of chronic disease Hgb 8.2 Received 1 unit PRBCs during last admission Received Epogen on 11/24/20 Monitor H&H DVT Prophylaxis -SCDs Full Code as per discussion with pt Follows with Dr Bronson for routine care Pt was seen and care coordinated with Dr Christopher. See addendum History of Present Illness Chief Complaint: Cardiac arrest Primary Care Provider: Melissa Bronson DO Pt is 65 y/o F with PMH ESRD on HD MWF, chronic diastolic congestive failure, HTN, HLD, DM II, diabetic neuropathy, anemia who presents from dialysis for c/o of having cardiac arrest prior to arrival. History obtained from ER staff, and patient. Reports patient was at dialysis and approximately 15 minutes into session it is reported she developed agonal respirations, unresponsiveness, Did not feel pulse so started CPR with chest compressions. After first cycle of CPR report palpated pulse. Patient remembers waking up in ambulance today. Prior to dialysis patient reports was feeling fine. She thinks as dialysis was starting she felt diffuse tingling sensation. Denies any chest pain or shortness of breath prior to dialysis. States having some tenderness to chest now which she relates to the chest compressions. Denies headache. Patient with recent hospitalization for similar episode of questionable cardiac arrest while receiving dialysis. During that admission patient received dialysis without problems. Patient states did have 1 session of dialysis 2 days ago however reports cut dialysis a little short secondary to her not feeling well. Denies fever/chills, diaphoresis, N/V/D/C, ROMERO, dizziness, vision changes, neck pain, SOB, orthopnea, palpitations, cough, sore throat, choking, otalgia, rhinorrhea, abdominal pain, paresthesias, increased weakness, extremity edema, rashes, urinary symptoms. Allergies Allergy/AdvReac Type Severity Reaction Status Date / Time daptomycin AdvReac sob Verified 12/04/20 15:28 Home Medications Medication Instructions Recorded Confirmed Type cholecalciferol (vitamin D3) 50 4,000 unit PO QAM 07/07/18 12/04/20 History mcg (2,000 unit) capsule (Vitamin D3) coenzyme Q10 100 mg capsule (Co 100 mg PO QAM 11/18/20 12/04/20 History Q-10) furosemide 40 mg tablet 40 mg PO BID 11/18/20 12/04/20 History calcium acetate(phosphat bind) 667 667 mg PO TIDM #90 cap 11/24/20 12/04/20 Rx mg capsule carvedilol 3.125 mg tablet 3.125 mg PO BID #30 tab 11/24/20 12/04/20 Rx hydralazine 50 mg tablet 50 mg PO TID #90 tab 11/24/20 12/04/20 Rx vitamin B complex and vitamin C 1 cap PO QAM #90 cap 11/24/20 12/04/20 Rx no.20-folic acid 1 mg capsule (Renal Caps) multivitamin 1 tab PO QAM 11/27/20 12/04/20 History aspirin 81 mg tablet,delayed 81 mg PO QAM 21 Days #21 tab 12/09/20 Rx release atorvastatin 40 mg tablet 40 mg PO QAM 30 Days #30 tab 12/09/20 Rx clopidogrel 75 mg tablet 75 mg PO QAM 30 Days #30 tab 12/09/20 Rx insulin glargine 100 unit/mL (3 15 unit SUBCUT QAM #0 ml 12/09/20 12/05/20 Rx mL) subcutaneous pen (Basaglar KwikPen U-100 Insulin) Past Med/Surg History Medical History Acquired deformity of right foot Acute osteomyelitis of right ankle or foot Acute respiratory failure with hypoxia Anemia Callus Closed fracture of distal end of right fibula and tibia Diabetes mellitus with diabetic polyneuropathy Diabetic foot ulcer Diabetic neuropathy Dyslipidemia Foot osteomyelitis, right History of depression Hypertension Posterior capsular opacification Type 2 diabetes mellitus Ulcer of right midfoot Vitamin D deficiency Surgical History History of appendectomy Status post right foot surgery Family History Sister Ovarian cancer Brother Hypertension Social History Smoking Status: Never smoker Second Hand Exposure: No; Hx Alcohol Use: No Hx Substance Use: No Preferred Language: Yi 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: Effective 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 Beliefs That Will Affect Care: None marital status: Current Living Situation: Alone Current Living Situation Comment: [facility] currently at rehab but typically lives at home alone current occupational status: retired Feels Safe at Home: Yes Diet Comment: stated low salt, low carb during the past year weight has: increased > 10 lbs Assistive Devices: Oxygen - Continuous Review of Systems Review of Systems: All systems reviewed & are unremarkable except as noted in HPI & below Physical Exam Physical Exam: General: no distress, obese Head: normocephalic, atraumatic Eyes: PERRL, EOM's intact, conjunctiva non-injected, anicteric ENT: normal inspection external ears, nose, mucous membranes moist Neck: supple, trachea midline Lungs: clear, no respiratory distress, no wheezing/rhonchi/rales CV: RRR, no murmur, 1+ pretibial edema; chest wall with tenderness to palpation Abd: normal BS, soft, non-tender Ext: no cyanosis, no calf tenderness Neuro: A&O x 3, no focal deficits noted, normal affect Skin: warm, dry Results & Data Results & Data ([facility]) Vital Signs (Past 12 Hours) Vital Signs Temp Pulse Resp BP Pulse Ox 12/04/20 14:00 16 181/63 H 99 12/04/20 13:48 14 168/85 H 97 12/04/20 13:30 74 14 173/67 H 97 12/04/20 13:15 72 15 155/59 H 99 12/04/20 13:00 75 18 163/61 H 99 12/04/20 12:50 98 12/04/20 12:45 77 16 146/69 H 98 12/04/20 12:26 77 16 174/68 H 97 12/04/20 12:22 36.8 C 72 24 146/69 H 98 Laboratory Results Short CBC 12/04/20 Range/Units 12:30 WBC 7.07 (4.8-10.8) K/uL Hgb 8.2 L (12.0-16.0) g/dL Hct 25.7 L (37-47) % Plt Count 76 L (130-400) K/uL BMP 12/04/20 12:30 Sodium 137 Potassium 4.0 Chloride 102 Carbon Dioxide 28 BUN 56 H Creatinine 5.15 H* Glucose 190 H Calcium 8.2 L Cardiac Enzymes 12/04/20 12/04/20 Range/Units 12:30 17:52 Troponin I 0.119 H* 0.175 H* (0-0.045) ng/ml Liver Function 12/04/20 Range/Units 12:30 Total Bilirubin 0.4 (0.2-1) mg/dl Direct Bilirubin 0.1 (0-0.2) mg/dl AST 58 H (15-37) U/L ALT 45 (12-78) U/L Alkaline Phosphatase 71 (45-117) U/L Albumin 3.1 L (3.4-5.0) gm/dl Diagnostic Findings Chest X-Ray 12/04/20 12:32 XR chest 1V portable HISTORY: 65 years-old Female Chest Pain . Acute atypical chest pain COMPARISON: Chest radiograph and CTA chest 03/30/2021 TECHNIQUE: Portable AP view of the chest. FINDINGS: Moderate enlargement of the cardiac silhouette. Pulmonary vascular congestion with interstitial coarsening. Calcified granuloma of the right upper lung. Linear left lung base atelectasis/scarring. Right IJ dual-lumen hemodialysis catheter distal tip projects over the superior cavoatrial junction. Trace pleural effusions. No pneumothorax. Bones appear grossly intact. IMPRESSION: 1. Cardiomegaly with mild pulmonary edema. 2. Trace pleural effusions. 3. Linear left lung base scarring/atelectasis. ACT 112: Negative or not required by law. The above report was generated using voice recognition software. It may contain grammatical, syntax or spelling errors. Electronically signed by: Jesus Glass M.D. 12/04/2020 12:[address] 12/04/20 12:34 CT chest diagnostic wo con CT DOSE: 1325.87 mGy.cm HISTORY: Atypical chest pain s/p chest compressions TECHNIQUE: Multiaxial CT images of the chest were performed without contrast. A dose lowering technique was utilized adhering to the principles of ALARA. COMPARISON: Chest CTA 11/27/2020. FINDINGS: Bilateral anterolateral second through seventh rib fractures. No pneumothorax. Trace bilateral pleural effusions. The heart is mildly enlarged. There is a trace pericardial effusion. Normal caliber thoracic aorta. Limited views of the upper abdomen demonstrate a normal liver, spleen, and right adrenal gland. Stable 1.3 cm left adrenal gland nodule. Normal esophagus. Mild body wall edema is noted. The central airways are patent. There is mild interlobular septal thickening with a few scattered small groundglass airspace opacities. This has slightly improved and is consistent with mild interstitial pulmonary edema. A 7 mm nodule within the right upper lobe on image 99, unchanged. Bilateral calcified pleural plaques are again noted. Bibasilar linear densities, left greater than right, persists. This favors atelectasis. A pneumonia could also a similar appearance in the appropriate clinical setting. Stable 3 mm nodule within the right lower lobe in image 140. IMPRESSION: 1. Bilateral anterior second through seventh rib fractures. No pneumothorax. 2. Mild interstitial pulmonary edema and trace bilateral pleural effusions which have slightly improved. 3. Bibasilar linear densities favor subsegmental atelectasis. A pneumonia could also have a similar appearance in the appropriate clinical setting. 4. Stable 7 mm right upper lobe pulmonary nodule. Follow-up chest CT in 3-6 months is recommended for further evaluation. 5. Calcified pleural plaques. ACT 112: Positive. There are findings on this exam that require communication between the performing entity and the patient following Patient Test Result Information Act ([place] Act 112) guidelines. Electronically signed by: Duane Baeza M.D. 12/04/2020 2:[address] 12/04/20 12:34 CT head/brain wo con CLINICAL HISTORY: syncope COMPARISON STUDY: 11/27/2020 TECHNIQUE: Axial CT of the brain is performed from the vertex to the skull base. IV contrast was not administered for this examination. A dose lowering technique was utilized adhering to the principles of ALARA. CT DOSE: FINDINGS: There is an age-indeterminate lacunar infarct in the left basal ganglia which was not visualized with certainty on the preceding study. There is no evidence of acute hemorrhage. There is no evidence of midline shift. No mass lesions are visualized. There are patchy white matter hypodensities likely on a small vessel basis. There is no evidence of pathologic ventricular dilatation. There is no evidence of acute sinusitis IMPRESSION: 1. Small age-indeterminate lacunar infarct in the left basal ganglia. An MRI could be obtained in follow-up as deemed clinically appropriate 2. No evidence of acute hemorrhage ACT 112: Negative or not required by law. Electronically signed by: Marco Nieto M.D. 12/04/2020 1:48 PM Code Status & VTE Plan VTE Prophylaxis Plan VTE Prophylaxis will be ordered: Yes Supervising Physician Co-Signing Physician Notes Pt was seen and examined. Agreed with Lyn EPPS exam, assessment and plan. 65 y/o F with PMH ESRD on HD MWF, chronic diastolic congestive failure, HTN, HLD, DM II, diabetic neuropathy, anemia presented from dialysis for c/o of having cardiac arrest prior to arrival. Pt was in the hospital last week for similar problem where she was unresponsive during HD. Pt had once cycle of CPR done in before pulse was palpable. Spoke to sister in the ER with patient permission, sister said that pt seems to be comfortable during HD in the hospital because she lies down during the HD. She said at the HD center, she seats during HD. Currently denies any chest pain, shortness of breath, fever/chills, diaphoresis, N/V/D/C, ROMERO, dizziness, vision changes, neck pain, SOB, orthopnea, palpitations, cough, sore throat, choking, otalgia, rhinorrhea. in the ER, CT head showed Small age-indeterminate lacunar infarct in the left basal ganglia. No evidence of acute hemorrhage. Received Aspirin in the ER. Will get an MRI, carotid duplex u/s. Will consult neurology. Will consider to add plavix 75mg daily. Will get a resting echo and monitor troponin. Will consult cardiology. Pt does not show any sign of volume overload for any urgent HD. Will plan for HD tomorrow. Will consult nephrology. Continue monitor closely in telemetry. MD Ashwin (1) Anemia Anemia type: unspecified type Qualified Code(s): D64.9 - Anemia, unspecified (2) Multiple fractures of ribs of both sides Encounter type: initial encounter Fracture type: closed Qualified Code(s): S22.43XA - Multiple fractures of ribs, bilateral, initial encounter for closed fracture (3) Hypertension Hypertension type: unspecified Qualified Code(s): I10 - Essential (primary) hypertension
[2020-12-04] MEDS ORDERED: PHARMACY GLYCEMIC MGMT CONSULT STA (15:40)
[2020-12-04] MEDS ORDERED: GLUCOSE 10 TABS/TUBE PO PRN (17:10)
[2020-12-04] MEDS ORDERED: CARBOHYDRATES FOR HYPOGLYCEMIA PO PRN (17:10)
[2020-12-04] MEDS ORDERED: GLUCAGON FOR INJ 1 MG VIAL SQ PRN (17:10)
[2020-12-04] MEDS ORDERED: DEXTROSE 50% 50 ML SYRINGE IV PRN (17:10)
[2020-12-04] MEDS ORDERED: GLUCOSE 40% GEL 15 GM TUBE PO PRN (17:10)
[2020-12-04] MEDS ORDERED: PHARMACIST DISCHARGE MED REC CONSULT PRN (17:10)
[2020-12-04] MEDS ORDERED: ACETAMINOPHEN 325 MG TAB PO PRN (17:10)
[2020-12-04] MEDS ORDERED: PHARMACY GLYCEMIC MGMT CONSULT PRN (17:19)
--- NOTE | 2020-12-04 18:17 | Nephrology Consultation ---
Date of Consultation December 04, 2020 Assessment & Plan (1) ESRD (end stage renal disease): Outpatient Rx: 3.5 hrs on a 180 optiflix @ Qb 300 Qd 600; 3 K bath. EDW 77 kg. BP and volume status currently acceptable. Electrolytes controlled. Will monitor for determination for next HD. Goals of care discussed tonight. Jeri would like to continue dialysis. Continue nephrocaps. Low PO4 diet. Medications appropriately dosed for kidney dysfunction. Document I/O's and repeat metabolic profile tomorrow AM. (2) Anemia: 1 u PRBC transfusion support provided during HD during her recent admission. Hgb has been stable at ~8. She has not had signs of acute blood loss. Epogen provided during prior admission.s (3) Syncope and collapse: Neurology and cardiology consults pending. Prior evaluation reviewed. Consider imaging of carotids and posterior circulation. History of Present Illness Reason for Consultation: ESRD on HD Requesting Physician: Martine Christopher MD Attending Physician: Martine Christopher MD History of Present Illness Ms. Riley is a 65 year female with ESRD. She started hemodialysis during a recent admission to [facility] earlier this month. She was admitted a second time from Nov 29- after a syncopal episodes during hemodialysis. The event occurred within 15 minutes of starting hemodialysis. She became acutely unresponsive within the first 15 minutes of the dialysis treatment and CPR was started. No shocks were delivered and no medications given. When EMS arrived, Jeri had a pulse/BP and was oxygenating at 60% on room air. She has no memory of any events between starting HD and waking up in the ER at [facility]. Evaluation revealed her to be in sinus rhythm without event on telemetry. Jeri woke from the episode in the ER. No arrhythmia appreciated on monitoring. This episodes was attributed to a hypoxic/vagal event. She had not been using her supplemental oxygen as prescribed prior to the event. She was dialyzed twice in the hospital without incident and returned to the outpatient dialysis unit on December 02 where hemodialysis was completed without complications. Fluid removal with dialysis has been <0.5 L per treatment. Today, Mrs. Riley felt well when she presented to the dialysis unit. She denies any headaches, lightheadedness, dizziness, chest pain, palpitations. Several minutes prior to starting her treatment, she did start to experience some tingling in her hands and feet. She describes this as 'pins and needles' and the symptom was similar to what she experienced prior to her syncopal episode on November 29. pH testing appropriate and potassium bath acceptable. No UF was achieved with the treatment. She was set for <0.3 L. After 30 minutes of dialysis, Jeri became acutely unresponsive. She was cyanotic and no pulse was appreciated. CPR was started. The dialysis nurse that I spoke to stated that Mrs. Riley did become rigid and demonstrated what appeared to be decerebrate posturing. AED did not recommend any shocks. CPR was continued for 3-4 minutes before a pulse was then felt. BP returned and Jeri was breathing on her own and oxygenating with supplemental O2. She remembers waking up in the ambulance on the way to the hospital. This evening, she is resting comfortably in bed and reports some anxiety but otherwise feels well. BP notably elevated. Her hemodialysis lines were evaluated and found to be without clot or air in the lines. We did not see evidence of hemolysis and there were no concerning features to her setup or dialysate. Minimal blood had been removed. Prior admission CTA chest, EKG, CXR, and labs were reviewed. TTE from prior admission was normal. Today, CT head and chest CT were reviewed. Rib fractures noted. CT head demonstrating a small age-indeterminate lacunar infarct in the left basal ganglia. EKG demonstrating sinus rhythm without acute changes. Ms. Riley has DKD. She unfortunately was not compliant with outpatient follow up. Earlier this month, she presented to the ED with advanced kidney dysfunction, symptoms or uremia, and notable volume overload. Dr. Darby placed a tunneled dialysis catheter on 11/20/2020 and the first dialysis treatment was completed on 11/21/2020. Tunneled dialysis catheter has been functioning well. There were no complications with any of the other hemodialysis treatments. PMH: AODM complicated by retinopathy, HTN, hyperlipidemia, depression, R ankle fracture (repaired - requires walking boot). Allergies Allergy/AdvReac Type Severity Reaction Status Date / Time daptomycin AdvReac sob Verified 12/04/20 15:28 Home Medications Medication Instructions Recorded Confirmed Type cholecalciferol (vitamin D3) 50 4,000 unit PO QAM 07/07/18 12/04/20 History mcg (2,000 unit) capsule (Vitamin D3) coenzyme Q10 100 mg capsule (Co 100 mg PO QAM 11/18/20 12/04/20 History Q-10) furosemide 40 mg tablet 40 mg PO BID 11/18/20 12/04/20 History calcium acetate(phosphat bind) 667 667 mg PO TIDM #90 cap 11/24/20 12/04/20 Rx mg capsule carvedilol 3.125 mg tablet 3.125 mg PO BID #30 tab 11/24/20 12/04/20 Rx hydralazine 50 mg tablet 50 mg PO TID #90 tab 11/24/20 12/04/20 Rx vitamin B complex and vitamin C 1 cap PO QAM #90 cap 11/24/20 12/04/20 Rx no.20-folic acid 1 mg capsule (Renal Caps) insulin glargine 100 unit/mL (3 20 unit SUBCUT QAM 11/27/20 12/04/20 History mL) subcutaneous pen (Basaglar KwikPen U-100 Insulin) multivitamin 1 tab PO QAM 11/27/20 12/04/20 History Patient History Medical History (Updated 11/28/20 @ 11:29 by Reinier Ambrocio DO) Acquired deformity of right foot Acute osteomyelitis of right ankle or foot Acute respiratory failure with hypoxia Anemia Callus Closed fracture of distal end of right fibula and tibia Diabetes mellitus with diabetic polyneuropathy Diabetic foot ulcer Diabetic neuropathy Dyslipidemia Foot osteomyelitis, right History of depression Hypertension Posterior capsular opacification Type 2 diabetes mellitus Ulcer of right midfoot Vitamin D deficiency Surgical History History of appendectomy Status post right foot surgery Family History Sister Ovarian cancer Brother Hypertension Social History Smoking Status: Never smoker Second Hand Exposure: No; Hx Alcohol Use: No Hx Substance Use: No Preferred Language: Trinidadian 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: Effective Senior Controls Analyst Required: No Beliefs That Will Affect Care: None marital status: Current Living Situation: Alone Current Living Situation Comment: [facility] currently at rehab but typically lives at home alone current occupational status: retired Other Information That Helps Us Care for You: No Feels Safe at Home: Yes Safety Concerns: Feels Safe At This Time Diet Comment: stated low salt, low carb during the past year weight has: increased > 10 lbs Assistive Devices: Cane and Walker Review of Systems Constitutional: no weight loss, no weight gain and no problem reported Eyes: no problem reported Ear, Nose, Mouth, Throat: no problem reported Respiratory: no problem reported Cardiovascular: no problem reported Gastrointestinal: no problem reported Musculoskeletal: no problem reported Integumentary: no problem reported Neurologic: no problem reported Psychiatric: no problem reported Endocrine: no problem reported Hematologic / Lymphatic: no problem reported Physical Exam Constitutional: well developed; no acute distress Eyes: no scleral abnormality and no corneal abnormality ENMT: Mouth: no oral mucosal abnormality and oral mucous membranes not dry Neck: normal visual inspection and trachea midline Respiratory: normal respiratory effort Auscultation: lungs clear to auscultation bilaterally Cardiovascular: Rate/Rhythm: regular rate Heart Sounds: normal S1 and normal S2 Extremities: no edema Musculoskeletal: Extremities: no cyanosis and no clubbing Skin: normal turgor; no lesions Neurologic: Motor/Sensory: no tremor and no asterixis Psychiatric: Orientation: alert and oriented x 3 Results & Data ([facility]) Vital Signs (Past 12 Hours) Vital Signs Temp Pulse Resp BP Pulse Ox 12/04/20 16:57 70 16 187/72 H 100 12/04/20 16:00 20 187/71 H 99 12/04/20 15:30 20 190/74 H 98 12/04/20 15:00 18 192/71 H 98 12/04/20 14:30 15 181/95 H 99 12/04/20 14:00 16 181/63 H 99 12/04/20 13:48 14 168/85 H 97 12/04/20 13:30 74 14 173/67 H 97 12/04/20 13:15 72 15 155/59 H 99 12/04/20 13:00 75 18 163/61 H 99 12/04/20 12:50 98 12/04/20 12:45 77 16 146/69 H 98 12/04/20 12:26 77 16 174/68 H 97 12/04/20 12:22 36.8 C 72 24 146/69 H 98 Laboratory Results Laboratory Results - last 24 hr 12/04/20 12/04/20 12/04/20 12:30 12:30 12:30 WBC 7.07 RBC 2.79 L Hgb 8.2 L POC Hgb Hct 25.7 L POC Hct MCV 92.1 MCH 29.4 MCHC 31.9 L RDW Std Deviation 50.2 H RDW Coeff of Rico 14.7 H Plt Count 76 L MPV 10.4 Immature Gran % (Auto) 1.4 Neut % (Auto) 75.9 Lymph % (Auto) 12.2 [place] % (Auto) 7.1 Eos % (Auto) 2.8 Baso % (Auto) 0.6 Neut # (Auto) 5.37 Lymph # (Auto) 0.86 L [place] # (Auto) 0.50 Eos # (Auto) 0.20 Baso # (Auto) 0.04 Immature Gran # (Auto) 0.10 H APTT 29.3 PTT Ratio 1.1 POC Sodium Sodium 137 POC Potassium Potassium 4.0 POC Chloride Chloride 102 Carbon Dioxide 28 POC Total CO2 Anion Gap 8.0 POC Anion Gap POC BUN BUN 56 H Creatinine 5.15 H* POC Creatinine Est Cr Clr Drug Dosing 10.8 Est GFR ( Amer) 9.4 Est GFR (Non-Af Amer) 8.1 BUN/Creatinine Ratio 10.9 Glucose 190 H POC Glucose POC Glucose (other) Calcium 8.2 L POC Ioniz Calcium Chely Phosphorus 3.5 Magnesium 2.1 Total Bilirubin 0.4 Direct Bilirubin 0.1 AST 58 H ALT 45 Alkaline Phosphatase 71 Troponin I 0.119 H* Total Protein 6.7 Albumin 3.1 L Globulin 3.6 Albumin/Globulin Ratio 0.9 Lipase 156 TSH 3.610 Nasal Screen MRSA (PCR) COVID-19 Eval Order SARS-CoV-2 (PCR) 12/04/20 12/04/20 12/04/20 12:39 12:47 12:47 WBC RBC Hgb POC Hgb 8.5 L Hct POC Hct 25 L MCV MCH MCHC RDW Std Deviation RDW Coeff of Rico Plt Count MPV Immature Gran % (Auto) Neut % (Auto) Lymph % (Auto) [place] % (Auto) Eos % (Auto) Baso % (Auto) Neut # (Auto) Lymph # (Auto) [place] # (Auto) Eos # (Auto) Baso # (Auto) Immature Gran # (Auto) APTT PTT Ratio POC Sodium 137 Sodium POC Potassium 4.0 Potassium POC Chloride 97 L Chloride Carbon Dioxide POC Total CO2 26 Anion Gap POC Anion Gap 20.0 POC BUN 52 H BUN Creatinine POC Creatinine 5.7 H* Est Cr Clr Drug Dosing Est GFR ( Amer) Est GFR (Non-Af Amer) BUN/Creatinine Ratio Glucose POC Glucose POC Glucose (other) 195 H Calcium POC Ioniz Calcium Che[place] 1.09 L Phosphorus Magnesium Total Bilirubin Direct Bilirubin AST ALT Alkaline Phosphatase Troponin I Total Protein Albumin Globulin Albumin/Globulin Ratio Lipase TSH Nasal Screen MRSA (PCR) COVID-19 Eval Order Covid19 at [facility] SARS-CoV-2 (PCR) NEGATIVE 12/04/20 12/04/20 12/04/20 17:07 17:52 Unknown WBC RBC Hgb POC Hgb Hct POC Hct MCV MCH MCHC RDW Std Deviation RDW Coeff of Rico Plt Count MPV Immature Gran % (Auto) Neut % (Auto) Lymph % (Auto) [place] % (Auto) Eos % (Auto) Baso % (Auto) Neut # (Auto) Lymph # (Auto) [place] # (Auto) Eos # (Auto) Baso # (Auto) Immature Gran # (Auto) APTT PTT Ratio POC Sodium Sodium POC Potassium Potassium POC Chloride Chloride Carbon Dioxide POC Total CO2 Anion Gap POC Anion Gap POC BUN BUN Creatinine POC Creatinine Est Cr Clr Drug Dosing Est GFR ( Amer) Est GFR (Non-Af Amer) BUN/Creatinine Ratio Glucose POC Glucose 175 H POC Glucose (other) Calcium POC Ioniz Calcium Chely Phosphorus Magnesium Total Bilirubin Direct Bilirubin AST ALT Alkaline Phosphatase Troponin I Pending Total Protein Albumin Globulin Albumin/Globulin Ratio Lipase TSH Nasal Screen MRSA (PCR) Pending COVID-19 Eval Order SARS-CoV-2 (PCR) PG Care Time/CCT Total # of Minutes Spent Total Time Spent with Patient: Total time spent is greater than 50% in coordination of care (as documented) at patient's floor/unit and/or counseling patient: Coding Level of Care Code 12134 Inpt Consult Level 4 Diagnoses ESRD (end stage renal disease) N18.6 Anemia D64.9 Anemia type: unspecified type Syncope and collapse R55 (1) Anemia Anemia type: unspecified type Qualified Code(s): D64.9 - Anemia, unspecified
[2020-12-04] MEDS: INSULIN ASPART 100 UNITS/ML 3 ML PEN SC SCH ×2 (18:18→21:40)
--- NOTE | 2020-12-04 20:26 | Emergency Department Note ---
Impression & Plan Syncope and collapse, Multiple fractures of ribs of both sides, End stage renal failure on dialysis, Elevated troponin ED Provider Note NAME: ZAK MORLEY AGE: 65 SEX: F ARRIVES VIA: Ambulance INFORMANT: Patient, ED PROVIDER(S): Dalton Webster MD CHIEF COMPLAINT: Syncope, possible cardiac arrest. PLAN: Disposition: Admit MEDICAL DECISION MAKING: The patient is a pleasant 65-year-old woman with a past medical history of end- stage renal disease on hemodialysis, hypertension, hyperlipidemia, CHF who presents to the emergency department from her dialysis center where per EMS report dialysis staff witnessed the patient become unresponsive and were unable to detect a pulse and so CPR was initiated for approximately 2 minutes/1 cycle and subsequently the patient regained consciousness. There was report that the patient was also apneic and hypoxic during the brief episode. Of note, patient had a similar episode for which she was admitted on 11/27 where she also received CPR but similarly never received medications or defibrillation and so it was unclear if this represented a true cardiac arrest. She presents to emergency department alert and oriented and only complains of chest wall pain. Prior to today she denies any fevers, chills, cough, congestion, GI or symptoms. She was discharged from an [facility] on 12/01 with her last hemodialysis session being on Monday. Patient reports that she still urinates and only recently started hemodialysis after hospitalization for acute respiratory failure from 11/18-11/24. On arrival the patient is chronically ill-appearing but no acute distress, afebrile stable vital signs. She has no focal neurologic deficits. She has mild anterior chest wall tenderness without bony crepitus. EKG without overt acute ischemia. Chest x-ray with interstitial thickening suggestive of vascular congestion, pulmonary edema but in the setting of the patient's end-stage renal disease. WBC within normal limits. H/H 8.2/25.7 similar to previous value. Platelets 76K also similar to prior values. Creatinine 5 similar to prior range values in the setting of known ESRD on hemodialysis. Electrolytes without significant abnormality. LFTs without significant abnormality. Initial troponin 0.119 decr eased from prior value and also in the setting of the patient's chest compressions and end-stage renal disease. TSH within normal limits. COVID-[address] of the head was performed and negative for acute process with question of age-indeterminate lacunar infarct. CT of the chest without contrast demonstrates bilateral anterolateral second through seventh rib fractures, without pneumothorax. Trace pericardial effusion is seen. Interlobular septal thickening with a few scattered small groundglass airspace opacities has slightly improved. Bibasilar linear densities, left greater than right likely atelectasis. On reevaluation the patient did feel improved after IV APAP and denied any significant pain. She agreed with plan for admission for further evaluation of her syncopal episode/unresponsive this and pain control for rib fractures secondary to CPR. Case discussed with Kwaku Guardado, with Dr. Ashwin brown who will evaluate the patient for admission. Triage Nursing notes reviewed and agree them. Prior medical records reviewed Vital Signs: reviewed and remarkable for hypertension. Differential diagnosis: Vasovagal event, dehydration, infection, hypoglycemia, electrolyte abnormalities, cardiac sources, intracerebral event, pulmonary embolism, seizure, toxicologic, neurologic, as well as other pathologies. ER treatment provided: See below. Diagnostics interpreted by me: ECG: Normal sinus rhythm, 77 bpm, nonspecific ST abnormality, no overt ST elevation or depression, QTC 473, QRS 84. Cardiac Monitoring: An order for continuous cardiac monitoring was placed and demonstrated Normal sinus rhythm, 77 bpm, no ectopy. Laboratory studies: See below Imaging studies: See below Consultation(s): Kwaku Guardado, with Dr. Ashwin brown who will evaluate the patient for admission. HPI: The patient is a pleasant 65-year-old woman with a past medical history of end-stage renal disease on hemodialysis, hypertension, hyperlipidemia, CHF who presents to the emergency department from her dialysis center where per EMS report dialysis staff witnessed the patient become unresponsive and were unable to detect a pulse and so CPR was initiated for approximately 2 minutes/1 cycle and subsequently the patient regained consciousness. There was report that the patient was also apneic and hypoxic during the brief episode. Of note, patient had a similar episode for which she was admitted on 11/27 where she also received CPR but similarly never received medications or defibrillation and so it was unclear if this represented a true cardiac arrest. She presents to emergency department alert and oriented and only complains of chest wall pain. Prior to today she denies any fevers, chills, cough, congestion, GI or symptoms. She was discharged from an [facility] on 12/01 with her last hemodialysis session being on Monday. Patient reports that she still urinates and only recently started hemodialysis after hospitalization for acute respiratory failure from 11/18-11/24. ROS: See above HPI for pertinent positives & negatives. A total of 10 systems reviewed and were otherwise negative. PAST MEDICAL HISTORY:See Below PAST SURGICAL HISTORY:See Below FAMILY HISTORY:See Below SOCIAL HISTORY:See Below HOME MEDICATIONS:See Below ALLERGIES:See Below VITALS:See Below PHYSICAL EXAMINATION: GENERAL: Awake, alert, fatigued/chronically ill-appearing, in no distress HENT: Normocephalic, atraumatic. Oropharynx unremarkable. EYES: Normal conjunctiva. Sclera non-icteric. NECK: Supple. No nuchal rigidity. FROM. No JVD. RESPIRATORY: Diminished at the bases, otherwise clear to auscultation. CARDIAC: Regular rate, normal rhythm. Extremities warm and well perfused. Pulses equal. ABDOMEN: Soft, non-distended. No tenderness to palpation. No rebound or guarding. No masses. RECTAL: Deferred. MUSCULOSKELETAL: Chest examination reveals no tenderness. The back is symmetrical on inspection without obvious abnormality. There is no CVA tenderness to palpation. No joint edema. LOWER EXTREMITIES: Calves are equal size bilaterally and non-tender. 1+ bilateral lower extremity edema. No discoloration. Chronic right ankle deformity. NEURO: Normal sensorium. No sensory or motor deficits noted. SKIN: No rash or jaundice noted. Dalton Webster MD Past Med/Surg History Medical History Acquired deformity of right foot Acute osteomyelitis of right ankle or foot Acute respiratory failure with hypoxia Anemia Callus Closed fracture of distal end of right fibula and tibia Diabetes mellitus with diabetic polyneuropathy Diabetic foot ulcer Diabetic neuropathy Dyslipidemia Foot osteomyelitis, right History of depression Hypertension Posterior capsular opacification Type 2 diabetes mellitus Ulcer of right midfoot Vitamin D deficiency Surgical History History of appendectomy Status post right foot surgery Family History Sister Ovarian cancer Brother Hypertension Social History Smoking Status: Never smoker Second Hand Exposure: No; Hx Alcohol Use: No Hx Substance Use: No Preferred Language: Korean 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: Effective Tree Chipper Required: No Beliefs That Will Affect Care: None marital status: Current Living Situation: Alone Current Living Situation Comment: [facility] currently at rehab but typically lives at home alone current occupational status: retired Other Information That Helps Us Care for You: No Feels Safe at Home: Yes Safety Concerns: Feels Safe At This Time Diet Comment: stated low salt, low carb during the past year weight has: increased > 10 lbs Assistive Devices: Cane and Walker Allergies Allergies Allergy/AdvReac Type Severity Reaction Status Date / Time daptomycin AdvReac sob Verified 12/04/20 15:28 Home Meds Home Medications Medication Instructions Recorded Confirmed cholecalciferol (vitamin D3) 50 4,000 unit PO QAM 07/07/18 12/04/20 mcg (2,000 unit) capsule (Vitamin D3) coenzyme Q10 100 mg capsule (Co 100 mg PO QAM 11/18/20 12/04/20 Q-10) furosemide 40 mg tablet 40 mg PO BID 11/18/20 12/04/20 insulin glargine 100 unit/mL (3 20 unit SUBCUT QAM 11/27/20 12/04/20 mL) subcutaneous pen (Basaglar KwikPen U-100 Insulin) multivitamin 1 tab PO QAM 11/27/20 12/04/20 Previous Rx's Medication Instructions Recorded calcium acetate(phosphat bind) 667 667 mg PO TIDM #90 cap 11/24/20 mg capsule carvedilol 3.125 mg tablet 3.125 mg PO BID #30 tab 11/24/20 hydralazine 50 mg tablet 50 mg PO TID #90 tab 11/24/20 vitamin B complex and vitamin C 1 cap PO QAM #90 cap 11/24/20 no.20-folic acid 1 mg capsule (Renal Caps) Results & Data (ED) Vital Signs Vital Signs - 24 hr 12/04/20 12:22 12/04/20 12:26 12/04/20 12:45 Temperature 36.8 C Temperature Source Oral Pulse Rate 72 77 77 Pulse Rate from SpO2 Sensor 77 76 Pulse Rhythm Regular Respiratory Rate 24 16 16 Respiratory Effort / Characteristics Non-Labored Spontaneous Respiratory Depth Normal Respiratory Pattern Regular Blood Pressure 146/69 H 174/68 H 146/69 H Blood Pressure Mean 94 103 94 Blood Pressure Position Lying Pulse Oximetry 98 97 98 Oxygen Delivery Method Nasal Cannula Oxygen Flow Rate 3 Sepsis Recent Fever Within 48 Hours No Sepsis New/Unexplained Change in Mental Status N/A Sepsis Action Taken by Nursing No Action Required 12/04/20 12:50 12/04/20 13:00 12/04/20 13:15 Temperature Temperature Source Pulse Rate 75 72 Pulse Rate from SpO2 Sensor 75 72 Pulse Rhythm Respiratory Rate 18 15 Respiratory Effort / Characteristics Respiratory Depth Respiratory Pattern Blood Pressure 163/61 H 155/59 H Blood Pressure Mean 95 91 Blood Pressure Position Pulse Oximetry 98 99 99 Oxygen Delivery Method Nasal Cannula Nasal Cannula Oxygen Flow Rate 3 3 Sepsis Recent Fever Within 48 Hours Sepsis New/Unexplained Change in Mental Status Sepsis Action Taken by Nursing 12/04/20 13:30 12/04/20 13:48 12/04/20 14:00 Temperature Temperature Source Pulse Rate 74 Pulse Rate from SpO2 Sensor 74 76 75 Pulse Rhythm Respiratory Rate 14 14 16 Respiratory Effort / Characteristics Respiratory Depth Respiratory Pattern Blood Pressure 173/67 H 168/85 H 181/63 H Blood Pressure Mean 102 112 102 Blood Pressure Position Pulse Oximetry 97 97 99 Oxygen Delivery Method Nasal Cannula Nasal Cannula Oxygen Flow Rate 3 3 Sepsis Recent Fever Within 48 Hours Sepsis New/Unexplained Change in Mental Status Sepsis Action Taken by Nursing 12/04/20 14:30 12/04/20 15:00 Temperature Temperature Source Pulse Rate Pulse Rate from SpO2 Sensor 76 77 Pulse Rhythm Respiratory Rate 15 18 Respiratory Effort / Characteristics Respiratory Depth Respiratory Pattern Blood Pressure 181/95 H 192/71 H Blood Pressure Mean 123 111 Blood Pressure Position Pulse Oximetry 99 98 Oxygen Delivery Method Oxygen Flow Rate Sepsis Recent Fever Within 48 Hours Sepsis New/Unexplained Change in Mental Status Sepsis Action Taken by Nursing Laboratory Data Attestation: I reviewed the patient's lab results. Result diagrams: 12/04/20 12:30 12/04/20 12:30 Lab Results 12/04/20 12/04/20 12/04/20 Range/Units 12:30 12:30 12:30 WBC 7.07 (4.8-10.8) K/uL RBC 2.79 L (4.2-5.4) M/uL Hgb 8.2 L (12.0-16.0) g/dL POC Hgb (12.0-16.0) g/dl Hct 25.7 L (37-47) % POC Hct (37-47) % MCV 92.1 (80-100) fL MCH 29.4 (25-34) pg MCHC 31.9 L (32-36) g/dL RDW Std Deviation 50.2 H (36.4-46.3) fL RDW Coeff of Rico 14.7 H (11.5-14.5) % Plt Count 76 L (130-400) K/uL MPV 10.4 (7.4-10.4) fL Immature Gran % (Auto) 1.4 % Neut % (Auto) 75.9 % Lymph % (Auto) 12.2 % [place] % (Auto) 7.1 % Eos % (Auto) 2.8 % Baso % (Auto) 0.6 % Neut # (Auto) 5.37 (1.4-6.5) K/uL Lymph # (Auto) 0.86 L (1.2-3.4) K/uL [place] # (Auto) 0.50 (0.11-0.59) K/uL Eos # (Auto) 0.20 (0-0.5) K/uL Baso # (Auto) 0.04 (0-0.2) K/uL Immature Gran # (Auto) 0.10 H (0.00-0.02) K/uL APTT 29.3 (21.0-31.0) Seconds PTT Ratio 1.1 POC Sodium (135-144) mmol/L Sodium 137 (136-145) mmol/L POC Potassium (3.3-5.0) mmol/L Potassium 4.0 (3.5-5.1) mmol/L POC Chloride (101-112) mmol/L Chloride 102 (98-107) mmol/L Carbon Dioxide 28 (21-32) mmol/L POC Total CO2 (24-31) mmol/L Anion Gap 8.0 (3-11) POC Anion Gap (16-25) mmol/L POC BUN (7-18) mg/dl BUN 56 H (7-18) mg/dl Creatinine 5.15 H* (0.6-1.2) mg/dl POC Creatinine (0.6-1.3) mg/dl Est Cr Clr Drug Dosing 10.8 ml/min Est GFR ( Amer) 9.4 ml/min Est GFR (Non-Af Amer) 8.1 ml/min BUN/Creatinine Ratio 10.9 (10-20) Glucose 190 H (70-99) mg/dl POC Glucose (other) (70-99) mg/dl Calcium 8.2 L (8.5-10.1) mg/dl POC Ioniz Calcium Chely (1.12-1.32) mmol/l Phosphorus 3.5 (2.5-4.9) mg/dl Magnesium 2.1 (1.8-2.4) mg/dl Total Bilirubin 0.4 (0.2-1) mg/dl Direct Bilirubin 0.1 (0-0.2) mg/dl AST 58 H (15-37) U/L ALT 45 (12-78) U/L Alkaline Phosphatase 71 (45-117) U/L Troponin I 0.119 H* (0-0.045) ng/ml Total Protein 6.7 (6.4-8.2) gm/dl Albumin 3.1 L (3.4-5.0) gm/dl Globulin 3.6 (2.5-4.0) gm/dl Albumin/Globulin Ratio 0.9 (0.9-2) Lipase 156 (73-393) U/L TSH 3.610 (0.300-4.500) uIu/ml COVID-19 Eval Order SARS-CoV-2 (PCR) (Negative) 12/04/20 12/04/20 12/04/20 Range/Units 12:39 12:47 12:47 WBC (4.8-10.8) K/uL RBC (4.2-5.4) M/uL Hgb (12.0-16.0) g/dL POC Hgb 8.5 L (12.0-16.0) g/dl Hct (37-47) % POC Hct 25 L (37-47) % MCV (80-100) fL MCH (25-34) pg MCHC (32-36) g/dL RDW Std Deviation (36.4-46.3) fL RDW Coeff of [place] (11.5-14.5) % Plt Count (130-400) K/uL MPV (7.4-10.4) fL Immature Gran % (Auto) % Neut % (Auto) % Lymph % (Auto) % [place] % (Auto) % Eos % (Auto) % Baso % (Auto) % Neut # (Auto) (1.4-6.5) K/uL Lymph # (Auto) (1.2-3.4) K/uL [place] # (Auto) (0.11-0.59) K/uL Eos # (Auto) (0-0.5) K/uL Baso # (Auto) (0-0.2) K/uL Immature Gran # (Auto) (0.00-0.02) K/uL APTT (21.0-31.0) Seconds PTT Ratio POC Sodium 137 (135-144) mmol/L Sodium (136-145) mmol/L POC Potassium 4.0 (3.3-5.0) mmol/L Potassium (3.5-5.1) mmol/L POC Chloride 97 L (101-112) mmol/L Chloride (98-107) mmol/L Carbon Dioxide (21-32) mmol/L POC Total CO2 26 (24-31) mmol/L Anion Gap (3-11) POC Anion Gap 20.0 (16-25) mmol/L POC BUN 52 H (7-18) mg/dl BUN (7-18) mg/dl Creatinine (0.6-1.2) mg/dl POC Creatinine 5.7 H* (0.6-1.3) mg/dl Est Cr Clr Drug Dosing ml/min Est GFR ( Amer) ml/min Est GFR (Non-Af Amer) ml/min BUN/Creatinine Ratio (10-20) Glucose (70-99) mg/dl POC Glucose (other) 195 H (70-99) mg/dl Calcium (8.5-10.1) mg/dl POC Ioniz Calcium [place] 1.09 L (1.12-1.32) mmol/l Phosphorus (2.5-4.9) mg/dl Magnesium (1.8-2.4) mg/dl Total Bilirubin (0.2-1) mg/dl Direct Bilirubin (0-0.2) mg/dl AST (15-37) U/L ALT (12-78) U/L Alkaline Phosphatase (45-117) U/L Troponin I (0-0.045) ng/ml Total Protein (6.4-8.2) gm/dl Albumin (3.4-5.0) gm/dl Globulin (2.5-4.0) gm/dl Albumin/Globulin Ratio (0.9-2) Lipase (73-393) U/L TSH (0.300-4.500) uIu/ml COVID-19 Eval Order Covid19 at [facility] SARS-CoV-2 (PCR) NEGATIVE (Negative) Administered Medications Insulin Aspart (Insulin Aspart 100 Units/Ml 3 Ml Pen) 0 units SC ACHS JOSE FRANCISCO Stop: 01/03/21 17:29 Last Admin: 12/04/20 18:18 Dose: 3 units Documented by: [id number] Cosigned by: [id number] Discontinued Medications Acetaminophen (Ofirmev) 1,000 mg in 100 mls @ 400 mls/hr IV NOW STA Stop: 12/04/20 12:48 Last Infusion: 12/04/20 13:16 Dose: 0 mls/hr Documented by: [id number] Admin: 12/04/20 13:01 Dose: 400 mls/hr Documented by: [id number] Miscellaneous Information (Pharmacy Glycemic Mgmt Consult) 1 ea N/A NOW STA; Protocol Stop: 12/04/20 15:41 Last Admin: 12/04/20 18:19 Dose: 1 ea Documented by: [id number] Imaging Data Radiologist's Impression: Chest X-Ray 12/04/20 12:32 XR chest 1V portable HISTORY: 65 years-old Female Chest Pain . Acute atypical chest pain COMPARISON: Chest radiograph and CTA chest 03/30/2021 TECHNIQUE: Portable AP view of the chest. FINDINGS: Moderate enlargement of the cardiac silhouette. Pulmonary vascular congestion with interstitial coarsening. Calcified granuloma of the right upper lung. Linear left lung base atelectasis/scarring. Right IJ dual-lumen hemodialysis catheter distal tip projects over the superior cavoatrial junction. Trace pleural effusions. No pneumothorax. Bones appear grossly intact. IMPRESSION: 1. Cardiomegaly with mild pulmonary edema. 2. Trace pleural effusions. 3. Linear left lung base scarring/atelectasis. ACT 112: Negative or not required by law. The above report was generated using voice recognition software. It may contain grammatical, syntax or spelling errors. Electronically signed by: Jesus Glass M.D. 12/04/2020 12:[address] 12/04/20 12:34 CT chest diagnostic wo con CT DOSE: 1325.87 mGy.cm HISTORY: Atypical chest pain s/p chest compressions TECHNIQUE: Multiaxial CT images of the chest were performed without contrast. A dose lowering technique was utilized adhering to the principles of ALARA. COMPARISON: Chest CTA 11/27/2020. FINDINGS: Bilateral anterolateral second through seventh rib fractures. No pneumothorax. Trace bilateral pleural effusions. The heart is mildly enlarged. There is a trace pericardial effusion. Normal caliber thoracic aorta. Limited views of the upper abdomen demonstrate a normal liver, spleen, and right adrenal gland. Stable 1.3 cm left adrenal gland nodule. Normal esophagus. Mild body wall edema is noted. The central airways are patent. There is mild interlobular septal thickening with a few scattered small groundglass airspace opacities. This has slightly improved and is consistent with mild interstitial pulmonary edema. A 7 mm nodule within the right upper lobe on image 99, unchanged. Bilateral calcified pleural plaques are again noted. Bibasilar linear densities, left greater than right, persists. This favors atelectasis. A pneumonia could also a similar appearance in the appropriate clinical setting. Stable 3 mm nodul e within the right lower lobe in image 140. IMPRESSION: 1. Bilateral anterior second through seventh rib fractures. No pneumothorax. 2. Mild interstitial pulmonary edema and trace bilateral pleural effusions which have slightly improved. 3. Bibasilar linear densities favor subsegmental atelectasis. A pneumonia could also have a similar appearance in the appropriate clinical setting. 4. Stable 7 mm right upper lobe pulmonary nodule. Follow-up chest CT in 3-6 months is recommended for further evaluation. 5. Calcified pleural plaques. ACT 112: Positive. There are findings on this exam that require communication between the performing entity and the patient following Patient Test Result Information Act ([place] Act 112) guidelines. Electronically signed by: Duane Baeza M.D. 12/04/2020 2:[address] 12/04/20 12:34 CT head/brain wo con CLINICAL HISTORY: syncope COMPARISON STUDY: 11/27/2020 TECHNIQUE: Axial CT of the brain is performed from the vertex to the skull base. IV contrast was not administered for this examination. A dose lowering technique was utilized adhering to the principles of ALARA. CT DOSE: FINDINGS: There is an age-indeterminate lacunar infarct in the left basal ganglia which was not visualized with certainty on the preceding study. There is no evidence of acute hemorrhage. There is no evidence of midline shift. No mass lesions are visualized. There are patchy white matter hypodensities likely on a small vessel basis. There is no evidence of pathologic ventricular dilatation. There is no evidence of acute sinusitis IMPRESSION: 1. Small age-indeterminate lacunar infarct in the left basal ganglia. An MRI could be obtained in follow-up as deemed clinically appropriate 2. No evidence of acute hemorrhage ACT 112: Negative or not required by law. Electronically signed by: Marco Nieto M.D. 12/04/2020 1:48 PM Discharge Plan Visit Data Chief Complaint: Cardiac Assessment Stated Complaint: Post Cardiac Arrest Discharge Problem: Syncope and collapse, Multiple fractures of ribs of both sides, End stage renal failure on dialysis, Elevated troponin Patient Disposition: Admitted As Inpatient Discharge Instructions Interventions: ED Discharge Assessment Last Done: 12/04/20 16:57
[2020-12-04] MEDS ORDERED: ASPIRIN CHEW 324 MG PO STA (20:39)
--- NOTE | 2020-12-04 20:56 | Ultrasound Report ---
CAROTID ARTERY ULTRASOUND CLINICAL HISTORY: Infarct. COMPARISON STUDY: None. TECHNIQUE: Real-time, grayscale, and color Doppler sonography of the carotid and vertebral arteries w as performed. Images were viewed in the transverse and longitudinal planes. FINDINGS: There is mild atherosclerotic plaque. Velocity measurements are listed below. COMMON CAROTID PEAK SYSTOLIC VELOCITY (CM/S): RIGHT 69 LEFT 105 ICA PEAK SYSTOLIC VELOCITY (CM/S): RIGHT 80 LEFT 89 Systolic ratios between the internal to common carotid arteries are normal. Antegrade flow is seen in the vertebral arteries. The external carotid arteries are patent. Blood pressure could not be obtained in this patient. IMPRESSION: No evidence for a hemodynamically significant stenosis. ACT 112: Negative or not required by law. Electronically signed by: Go Romeo M.D. 12/04/2020 8:55 PM
[2020-12-04] MEDS ORDERED: INSULIN GLARGINE SOLOSTAR 100 UNITS/ML 3 ML PEN SC SCH (21:00)
--- NOTE | 2020-12-04 21:01 | Magnetic Resonance Report ---
MRI OF THE BRAIN WITHOUT CONTRAST CLINICAL HISTORY: infarct seen on CT COMPARISON STUDY: Head CT December 04, 2020. TECHNIQUE: Utilizing a 1.5 Deja magnet and dedicated coil, multiplanar, multiecho imaging of the bra in was performed without IV contrast. FINDINGS: Note is made of a 5 mm focus of restricted diffusion within the left caudate nucleus and an terior limb of the left internal capsule. This corresponds to the finding on head CT performed earlie r today. A few additional small acute infarcts within the left garcia radiata are noted. These are sl ightly hypointense on the ADC map. Ventricular system is normal. Basilar cisterns are patent. No acut e intracranial hemorrhage, midline shift or mass effect is present. Additional old lacunar infarct wi thin the right cerebellar hemisphere. Flow-voids for the major intracranial vessels are present. Calv arial signal is normal. IMPRESSION: A few small acute infarcts within the left cerebral hemisphere, including a 5 mm acute i nfarct within the left caudate nucleus/anterior limb of the left internal capsule. No acute hemorrhag e. No mass effect. ACT 112: Negative or not required by law. Electronically signed by: Go Romeo M.D. 12/04/2020 9:00 PM
[2020-12-04] MEDS: FUROSEMIDE 40 MG TAB PO SCH (21:42)
[2020-12-04] MEDS: hydrALAZINE TAB 50 MG TAB PO SCH (21:42)
[2020-12-04] MEDS: carvediloL 3.125 MG TAB PO SCH (21:43)
[2020-12-05 08:29] LABS: Hematocrit (blood only) 26.1 % (37-47); Hemoglobin 8.4 g/dL (12.0-16.0); Mean Corpuscular Hemoglobin 29.8 pg (25-34); Mean Corpuscular Hgb Conc 32.2 g/dL (32-36); Mean Corpuscular Volume 92.6 fL (80-100); Mean Platelet Volume 10.5 fL (7.4-10.4); Platelet Count 117 K/uL (130-400); RDW Coefficient of Variation 14.5 % (11.5-14.5); RDW Standard Deviation 49.4 fL (36.4-46.3); Red Blood Count 2.82 M/uL (4.2-5.4)
[2020-12-05] MEDS: INSULIN ASPART 100 UNITS/ML 3 ML PEN SC SCH ×4 (08:41→21:33)
[2020-12-05] MEDS: INSULIN GLARGINE SOLOSTAR 100 UNITS/ML 3 ML PEN SC SCH (08:42)
[2020-12-05] MEDS: carvediloL 3.125 MG TAB PO SCH ×2 (08:46→21:34)
[2020-12-05] MEDS: ATORVASTATIN 40 MG TAB PO SCH (08:46)
[2020-12-05] MEDS: ASPIRIN 81 MG ECTAB PO SCH (08:46)
[2020-12-05] MEDS: FUROSEMIDE 40 MG TAB PO SCH ×2 (08:46→21:34)
[2020-12-05] MEDS: NEPHROCAPS PO SCH (08:46)
[2020-12-05] MEDS: CALCIUM ACETATE 667 MG CAP/TAB PO SCH ×3 (08:47→17:12)
[2020-12-05] MEDS: MULTIVITAMIN TAB PO SCH (08:47)
[2020-12-05] MEDS: hydrALAZINE TAB 50 MG TAB PO SCH ×3 (08:47→21:34)
[2020-12-05] MEDS: CHOLECALCIFEROL 1,000 UNITS 25 MCG TAB PO SCH (08:47)
[2020-12-05 08:53] LABS: Basophils # (auto) 0.03 K/uL (0-0.2); Basophils % (auto) 0.4 %; Eosinophils # (auto) 0.22 K/uL (0-0.5); Eosinophils % (auto) 2.8 %; Immature Granulocytes # (auto) 0.04 K/uL (0.00-0.02); Immature Granulocytes % (auto) 0.5 %; Lymphocytes # (auto) 1.05 K/uL (1.2-3.4); Lymphocytes % (auto) 13.1 %; Monocytes # (auto) 0.93 K/uL (0.11-0.59); Monocytes % (auto) 11.6 %; Neutrophils # (auto) 5.73 K/uL (1.4-6.5); Neutrophils % (auto) 71.6 %
[2020-12-05] MEDS ORDERED: NON-FORMULARY MEDICATION (Coenzyme Q10 [Co Q-10] 100 mg Capsule) PO SCH (09:00)
--- NOTE | 2020-12-05 09:01 | Cardiology Consultation ---
Date of Consultation December 05, 2020 Assessment & Plan (1) Syncope and collapse: (2) Multiple fractures of ribs of both sides: (3) CVA (cerebral vascular accident): Patient with longstanding history of complicated type 2 diabetes mellitus. She has a history of renal insufficiency, and progressed to end-stage disease earlier this month necessitating initiation of hemodialysis. She has had 2 admissions now for davey loss of consciousness after initiation of dialysis. It sounds as if both episodes occurred before significant fluid could be removed. Of note, reportedly, an AED was utilized yesterday, and advised no shock. This is helpful as this means she was not in ventricular tachycardia or ventricular fibrillation at the time that the device was applied. Other possibilities include symptomatic bradycardia or pulseless electrical activity. No arrhythmia however has been detected thus far this hospital stay or on the previous day a week ago, with sinus rhythm in the 60s to 70s noted thus far on telemetry. I think if she was to have had pulseless electrical activity arrest, the likelihood of her having regained spontaneous consciousness without ACLS intervention would be low. Her mild troponin I elevation is well explained by the presence of her renal insufficiency together chest compressions, and she does not seem to have any symptoms suggestive of an acute coronary syndrome. Echocardiogram was normal previous hospital stay, I have requested a repeat limited echo for reassessment of LV wall motion, and to exclude myocardial contusion in the setting of chest compressions. Recommend cautious analgesics given findings of rib fractures on CT. With regards to the MRI findings of new strokes, agree with adding clopidogrel to her aspirin for now. Future considerations include making sure that she is appropriately treated with her chronic oxygen will initiating hemodialysis, she actually was hypertensive on arrival, with stable blood pressure present, perhaps support with midodrine with dialysis sessions may be of help. Further Recommendations be forthcoming as her stay develops. History of Present Illness Reason for Consultation: Possible cardiac arrest Requesting Physician: Deven Ty PA-C Attending Physician: Martine Christopher MD History of Present Illness Jeri Riley is a 65-year-old female seen in cardiology consultation due to concerns of transient loss of consciousness. She has a history of end-stage renal disease and was reportedly at dialysis yesterday and approximately 15 minutes into the session she developed observed agonal respirations and unresponsiveness. Staff there was concerned that the pulse was not detectable and therefore CPR was initiated with chest compressions. After a cycle of CPR a pulse was reportedly detectable and the patient recalled waking up in the ambulance. She had recently been admitted from 11/27/2020 until 12/01/2020 and he had a similar episode at dialysis prompting admission.Echocardiogram performed 11/28/2020 revealed normal left ventricular chamber size and systolic function, LVEF 55 to 60% with mild mitral regurgitation. Serial EKG tracings performed during that hospital stay revealed normal sinus rhythm without acute abnormality.EKG performed on arrival yesterday 12:26 PM reviewed independently by the undersigned revealed normal sinus rhythm at 77 bpm. Compared to previous tracing performed on 11/29/2020 nonspecific T wave flattening noted in the infer ior and anterolateral leads the previous tracing have actually improved. Patient assessed in room 210. She is awake and conversant. She has a mild degree of chest wall pain related to rib fractures from chest compressions. Telemetry reveals sinus rhythm in the 60s without arrhythmia. Allergies Allergy/AdvReac Type Severity Reaction Status Date / Time daptomycin AdvReac sob Verified 12/04/20 15:28 Home Medications Medication Instructions Recorded Confirmed Type cholecalciferol (vitamin D3) 50 4,000 unit PO QAM 07/07/18 12/04/20 History mcg (2,000 unit) capsule (Vitamin D3) coenzyme Q10 100 mg capsule (Co 100 mg PO QAM 11/18/20 12/04/20 History Q-10) furosemide 40 mg tablet 40 mg PO BID 11/18/20 12/04/20 History calcium acetate(phosphat bind) 667 667 mg PO TIDM #90 cap 11/24/20 12/04/20 Rx mg capsule carvedilol 3.125 mg tablet 3.125 mg PO BID #30 tab 11/24/20 12/04/20 Rx hydralazine 50 mg tablet 50 mg PO TID #90 tab 11/24/20 12/04/20 Rx vitamin B complex and vitamin C 1 cap PO QAM #90 cap 11/24/20 12/04/20 Rx no.20-folic acid 1 mg capsule (Renal Caps) insulin glargine 100 unit/mL (3 30 unit SUBCUT QAM 11/27/20 12/05/20 History mL) subcutaneous pen (Basaglar KwikPen U-100 Insulin) multivitamin 1 tab PO QAM 11/27/20 12/04/20 History Patient History Medical History Acquired deformity of right foot Acute osteomyelitis of right ankle or foot Acute respiratory failure with hypoxia Anemia Callus Closed fracture of distal end of right fibula and tibia Diabetes mellitus with diabetic polyneuropathy Diabetic foot ulcer Diabetic neuropathy Dyslipidemia Foot osteomyelitis, right History of depression Hypertension Posterior capsular opacification Type 2 diabetes mellitus Ulcer of right midfoot Vitamin D deficiency Surgical History History of appendectomy Status post right foot surgery Family History Sister Ovarian cancer Brother Hypertension Social History Smoking Status: Never smoker Second Hand Exposure: No; Hx Alcohol Use: No Hx Substance Use: No Preferred Language: Peruvian 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: Effective Resident Director Required: No Beliefs That Will Affect Care: None marital status: Current Living Situation: Alone Current Living Situation Comment: [facility] currently at rehab but typically lives at home alone current occupational status: retired Other Information That Helps Us Care for You: No Feels Safe at Home: Yes Safety Concerns: Feels Safe At This Time Diet Comment: stated low salt, low carb during the past year weight has: increased > 10 lbs Assistive Devices: Cane and Walker Review of Systems Review of Systems: All systems reviewed & are unremarkable except as noted in HPI & below Physical Exam Physical Exam: Temp Pulse Resp BP Pulse Ox 37.0 C 74 18 131/56 L 98 12/05/20 08:00 12/05/20 08:00 12/05/20 08:00 12/05/20 08:00 12/05/20 08:00 Constitutional: WD/WN, vitals as above Respiratory: normal respiratory effort, lungs clear to auscultation Cardiovascular: RRR, no murmur, no edema Neurologic: PERRL, EOMI, accommodation nl, no face palsy, no dysarthria Results & Data ([facility]) Vital Signs (Past 12 Hours) Vital Signs Temp Pulse Resp BP Pulse Ox 12/05/20 08:00 37.0 C 74 18 131/56 L 98 12/05/20 03:52 36.9 C 66 17 136/63 98 12/05/20 00:13 36.9 C 77 19 121/56 L 97 Laboratory Results Cardiac Enzymes 12/04/20 12/04/20 12/05/20 Range/Units 12:30 17:52 00:12 AST 58 H (15-37) U/L Troponin I 0.119 H* 0.175 H* 0.131 H* (0-0.045) ng/ml Coagulation 12/04/20 Range/Units 12:30 APTT 29.3 (21.0-31.0) Seconds Lipids 12/05/20 Range/Units 07:53 Triglycerides 124 (0-150) mg/dl Cholesterol 171 (0-200) mg/dl HDL Cholesterol 39 mg/dl Cholesterol/HDL Ratio 4 CBC 12/04/20 12/05/20 Range/Units 12:30 07:53 WBC 7.07 8.00 (4.8-10.8) K/uL RBC 2.79 L 2.82 L (4.2-5.4) M/uL Hgb 8.2 L 8.4 L (12.0-16.0) g/dL Hct 25.7 L 26.1 L (37-47) % Plt Count 76 L 117 L D (130-400) K/uL Neut # (Auto) 5.37 5.73 (1.4-6.5) K/uL Lymph # (Auto) 0.86 L 1.05 L (1.2-3.4) K/uL Calvert # (Auto) 0.50 0.93 H (0.11-0.59) K/uL Eos # (Auto) 0.20 0.22 (0-0.5) K/uL Baso # (Auto) 0.04 0.03 (0-0.2) K/uL Comprehensive Metabolic Panel 12/04/20 12/05/20 Range/Units 12:30 07:53 Sodium 137 139 (136-145) mmol/L Potassium 4.0 4.0 (3.5-5.1) mmol/L Chloride 102 103 (98-107) mmol/L Carbon Dioxide 28 30 (21-32) mmol/L BUN 56 H 67 H (7-18) mg/dl Creatinine 5.15 H* 6.19 H* D (0.6-1.2) mg/dl Glucose 190 H 116 H (70-99) mg/dl Calcium 8.2 L 8.7 (8.5-10.1) mg/dl Direct Bilirubin 0.1 (0-0.2) mg/dl AST 58 H (15-37) U/L ALT 45 (12-78) U/L Alkaline Phosphatase 71 (45-117) U/L Total Protein 6.7 (6.4-8.2) gm/dl Albumin 3.1 L (3.4-5.0) gm/dl Intake and Output 12/04/20 12/05/20 12/05/20 22:59 06:59 14:59 Other: Other Intake Source Sips Diagnostic Findings MRI of the brain with findings of a few small infarcts within the left cerebral hemisphere including a 5 mm acute infarct within the left caudate nucleus/anterior limb of the left internal capsule as per the radiology report without acute hemorrhage or mass-effect. Carotid duplex was negative. (1) Multiple fractures of ribs of both sides Encounter type: initial encounter Fracture type: closed Qualified Code(s): S22.43XA - Multiple fractures of ribs, bilateral, initial encounter for closed fracture
[2020-12-05 09:07] LABS: BUN Creatinine Ratio 10.8 (10-20); Calcium 8.7 mg/dl (8.5-10.1); Est GFR (African American) 7.6 ml/min; Est GFR (Non-African American) 6.5 ml/min
[2020-12-05] MEDS ORDERED: SODIUM CHLORIDE 0.9% 1000ML 1,000 ML IV PRN (10:01)
--- NOTE | 2020-12-05 10:11 | Nephrology Progress Note ---
Date of Service December 05, 2020 Assessment & Plan (1) ESRD (end stage renal disease): Plan: * Outpatient Rx: 3.5 hrs on a 180 optiflix @ Qb 300 Qd 600; 3 K bath. EDW 77 kg * Will attempt 2 hrs HD today at 200cc/hr Qb, no heparin. Will use 4K bath and lower dialysate HCO3 from 38 to 28 mEq * Continue nephrocaps * Low PO4 diet * Medications appropriately dosed for kidney dysfunction (2) Syncope and collapse: Plan: * Neurology and cardiology consults pending * Telemetry reviewed this am: NSR w/ HR 70 - 80 overnight. No arrhythmia * Carotid doppler 12/04 revealed only plaque * Echocardiogram 11/28/20: LVEF 55 - 60%, normal LV, mild MR, RV systolic function is normal * Pre-HD K 4.3 and patient on 38 HCO3 bath. Will reduce dialysate HCO3 with dialysis today (3) Anemia: Plan: * 1 u PRBC transfusion support provided during HD during her recent admission. Hgb has been stable at ~8. She has not had signs of acute blood loss * Will provide RANDY w/ HD today Admission and Anticipated Discharge Date Admission Date: December 04, 2020 Subjective Mrs. Riley was seen and examined in the PCU this morning. She denied fever, angina, dyspnea or uremic symptoms. She completed only 15 min HD yesterday before requiring medical intervention and transfer to the ED. Review of Systems Constitutional: + weakness; no fever Eyes: no worsening vision and no problem reported Ear, Nose, Mouth, Throat: no problem reported Respiratory: no cough and no dyspnea Cardiovascular: no chest pain, no palpitations and no edema Gastrointestinal: no abdominal pain, no nausea, no vomiting and no diarrhea/loose stools Genitourinary: no dysuria and no hematuria Musculoskeletal: no back pain Integumentary: no rash Neurologic: no falls, no dizziness and no confusion Physical Exam Constitutional: not in distress Eyes: PERRL Neck: trachea midline, no thyromegaly RIJ THC with clean dry dressing in place Respiratory: normal respiratory effort, lungs clear to auscultation Cardiovascular: RRR, no murmur, no edema Gastrointestinal (Abdomen): normal bowel sounds, soft, nontender, no hepatosplenomegaly Musculoskeletal: Extremities: no cyanosis Results & Data ([facility]) Vital Signs (Past 12 Hours) Vital Signs Temp Pulse Resp BP Pulse Ox 12/05/20 08:00 37.0 C 74 18 131/56 L 98 12/05/20 03:52 36.9 C 66 17 136/63 98 12/05/20 00:13 36.9 C 77 19 121/56 L 97 Laboratory Results Laboratory Tests 12/05/20 12/05/20 07:53 07:53 WBC 8.00 Hgb 8.4 L Hct 26.1 L Plt Count 117 L D Sodium 139 Potassium 4.0 Chloride 103 Carbon Dioxide 30 Laboratory Tests 12/05/20 07:53 BUN 67 H Creatinine 6.19 H* D Glucose 116 H PG Care Time/CCT Total # of Minutes Spent Total Time Spent with Patient: Total time spent is greater than 50% in coordination of care (as documented) at patient's floor/unit and/or counseling patient: Coding Level of Care Code 51574 Subseq Hosp Care Lvl 3 Diagnoses ESRD (end stage renal disease) N18.6 Anemia D64.9 Anemia type: unspecified type Syncope and collapse R55 (1) Anemia Anemia type: unspecified type Qualified Code(s): D64.9 - Anemia, unspecified
[2020-12-05] MEDS: CLOPIDOGREL BISULFATE 75 MG TAB PO SCH (10:15)
--- NOTE | 2020-12-05 11:01 | Pharmacy Report ---
Pharmacy Glycemic Short Note 2 - Date of Service December 05, 2020 - Glycemic Short BSG Results (Last 24 hours): 12/04/20 12/04/20 12/04/20 12:30 12:39 17:07 Glucose 190 H POC Glucose 175 H POC Glucose (other) 195 H 12/04/20 12/05/20 12/05/20 20:34 07:33 07:53 Glucose 116 H POC Glucose 190 H 124 H POC Glucose (other) OUTPATIENT ANTIDIABETIC REGIMEN: * Lantus 30 units SQ QAM * Patient's A1c = 7.1% 11/18/20 * However, this result is likely somewhat unreliable in ESRD patients d/t interactions between the A1c analyzing technique and high levels of urea in ESRD, reduced RBC life span, iron deficiency anemia, and EPO administration. HbA1c > 7.5% in ESRD patient may overestimate the extent of hyperglycemia in ESRD patients. ASSESSMENT: * Pt is 65 y/o F with PMH ESRD on HD MWF, chronic diastolic congestive failure, HTN, HLD, DM II, diabetic neuropathy, anemia who presents from dialysis for c/o of having cardiac arrest prior to arrival. Patient was at dialysis and approximately 15 minutes into session it is reported she developed agonal respirations, unresponsiveness, did not feel pulse so started CPR with chest compressions. After first cycle of CPR report palpated pulse. Patient with recent hospitalization for similar event during dialysis. * Patient known to pharmacy glycemic service from previous admission earlier this month, will begin with similar doses of Lantus and NovoLog and titrate. PLAN FOR INPATIENT GLYCEMIC CONTROL: * Basal insulin * Lantus 5 units SQ daily * Bolus insulin * NovoLog per scale ACHS or Q6hrs while NPO * Goal Range: Low 110 mg/dL - High 140 mg/dL * Correction Factor: 25 mg/dL/unit * Nutritional / Prandial insulin per carb ratio of 1 unit per 7 grams CHO consumed
[2020-12-05] MEDS ORDERED: EPOETIN ALFA 10,000 UNITS in SYRINGE 0 ML IV SCH (11:30)
--- NOTE | 2020-12-05 13:16 | 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 Note ---
Date of Service: December 05, 2020 Jeri is 64 years old is right-handed has longstanding insulin-dependent diabetes with increasing renal failure and was just started on hemodialysis about a month ago. She has some underlying congestive heart failure has had episodes of acute respiratory failure, is anemic, has diabetic foot ulcers and severe diabetic neuropathy, has had pneumonitis in the past osteomyelitis of the feet is a history of appendectomy hypertension dyslipidemia depression anxiety cataract surgery Her home medications according to the chart include insulin, calcium phosphate, carvedilol, cholecalciferol, coenzyme Q 10, furosemide, hydralazine, multivitamins and renal capsules there is no specific mention of antiplatelet agents He has allergies to daptomycin Family history and social history are as recorded on her admission notes by her hospitalist service. She is non-smoker nonconsumer of ethanol and is In this setting she had an acute syncopal event early in dialysis about 2 weeks ago specifically on November 27 and was admitted to the hospital then with a negative work-up for causation and had a CAT scan of the brain that showed no significant changes She was readmitted with a similar event occurring yesterday. She recalls sitting in dialysis and not really had undergone a very long period of time on the machine and suddenly felt lightheaded and the next thing she knew she had had CPR and awakened with a sore chest. She has no recall of anything else did not have any premonitory muscle movements visual loss hallucinations etc. and was pretty much back to her baseline after the event occurred She apparently had no palpable blood pressure or pulse and CPR was administered in this basis. The AED did not indicate need for cardioversion. Dr. Coppola is looking over the situation now from a cardiology point of view and is planning to do another echocardiogram, continue to monitor her and will probably do a long-term outpatient monitor study unless during the course of her hospital stay significant arrhythmia or episode of heart block is detected CT scan showed what appears to be development of a left basal ganglia lacunar in farct between the initial CT on the and the current one done yesterday an MRI done this morning confirms the presence of 3 small infarctions in the left hemisphere acute type likely having emerged in the past several weeks but unlikely to have been responsible for the syncopal event yesterday Neurology is being consulted because of the syncope I assume because of a question of a seizure clinically this was not the case and because of the abnormal findings on CT and MRI From systems point of view specifically neurologically she denies any headaches visual disturbances numbness in her face problems with speech weakness in her extremities other than those expected on the basis of her severe polyneuropathy in lower extremities and reports nothing of could be construed clinically as a c erebrovascular accident between the event on November 27 and the current 1 Otherwise she really has no new systemic complaints, complaints referable to HEENT, cardiovascular pulmonary gastrointestinal genitourinary musculoskeletal dermatologic or hematologic systems other than those related to her ongoing chronic medical problems as outlined above On exam her blood pressure is 142/70 pulse 74 respirations are 20 She is awake alert and oriented with no recent or remote memory deficits other than amnesia for the events occurring during her CPR Cranial nerves appear to be intact with normal eye movements respiratory strength facial sensation clear speech She has severe lower extremity weakness distally worse on the left and I did not test gait but she can move her lower extremities and exert force against my hands and dorsiflexion of the feet and could raise her legs from the bed. There is no drift pronation sign of the upper extremities no tremor or tics or choreiform activity Reflexes were absent at the knees and ankles toes were indeterminate upper extremity reflexes were hypoactive Strength in the lower extremities was significantly reduced distally but she still had antigravity activity in the anterior compartment muscles and in the upper extremities strength was reasonably good distally and proximally I can olive picker no pathologic reflexes but toe signs were not reliable because of weakness and there certainly were no [place] signs She had absence of all large fiber modalities below the knees in terms of sensory exam This was a nonneurologic case of syncope. EEG is normal the history suggests some form of cardiovascular causation and she does not need any anticonvulsants based on the data we have thus far It appears that she has had 3 small likely embolic infarctions involving the left hemisphere occurring sometime between November 27 and the present time and these are clinically silent and unrelated to the syncopal event but present another diagnostic dilemma. Duplex of the carotids is normal but this would not exclude intracranial disease were disease at the carotid siphons and would suggest we do some form of imaging study either CT angiographic or MR angiography and the latter could be done without contrast but the former would require clearance from nephrology and Dr. Christopher is going to be working on logistics of this She should be on dual antiplatelet therapy. I do not know she was on aspirin before. I find it likely that she was but the chart does not support If she was not on some form of antiplatelet therapy then I think she should be on dual antiplatelet therapy for 21 days and then have a switch over to either aspirin or Plavix Obviously she is going to need evaluation for another potential source of emboli in the cardiac chambers with an echo and an outpatient Zio patch and may end up on a novel anticoagulant if we do see evidence for paroxysmal atrial fibrillation for which she would be at reasonably high risk based on her vascular history age etc. I will be checking back by chart but at this point I do not think we need to see her regular basis although I will set up for an outpatient neurology visit either by telephonic video or perhaps live visit within 21 days Neurology will therefore be officially signing off the case during this hospital stay unless other symptoms emerge Edson Baez MD
--- NOTE | 2020-12-05 13:19 | Electroencephalogram ---
EEG Procedure Note Date of Service December 05, 2020 Start / End Times Start Time: 942 End Time: 1003 Referring Physician Edson Baez MD History Syncope versus seizure Home Medication List Medication Instructions Recorded Confirmed Type cholecalciferol (vitamin D3) 50 4,000 unit PO QAM 07/07/18 12/04/20 History mcg (2,000 unit) capsule (Vitamin D3) coenzyme Q10 100 mg capsule (Co 100 mg PO QAM 11/18/20 12/04/20 History Q-10) furosemide 40 mg tablet 40 mg PO BID 11/18/20 12/04/20 History calcium acetate(phosphat bind) 667 667 mg PO TIDM #90 cap 11/24/20 12/04/20 Rx mg capsule carvedilol 3.125 mg tablet 3.125 mg PO BID #30 tab 11/24/20 12/04/20 Rx hydralazine 50 mg tablet 50 mg PO TID #90 tab 11/24/20 12/04/20 Rx vitamin B complex and vitamin C 1 cap PO QAM #90 cap 11/24/20 12/04/20 Rx no.20-folic acid 1 mg capsule (Renal Caps) insulin glargine 100 unit/mL (3 30 unit SUBCUT QAM 11/27/20 12/05/20 History mL) subcutaneous pen (Basaglar KwikPen U-100 Insulin) multivitamin 1 tab PO QAM 11/27/20 12/04/20 History Inpatient Medication List Aspirin (Aspirin 81 Mg Ectab) 81 mg PO QAM [facility] Stop: 01/04/21 08:59 Last Admin: 12/05/20 08:46 Dose: 81 mg Documented by: [id number] Atorvastatin Calcium (Atorvastatin 40 Mg Tab) 40 mg PO QAM JOSE FRANCISCO Stop: 01/04/21 08:59 Last Admin: 12/05/20 08:46 Dose: 40 mg Documented by: [id number] Calcium Acetate (Calcium Acetate 667 Mg Cap/Tab) 667 mg PO TIDM [facility] Stop: 01/04/21 07:59 Last Admin: 12/05/20 12:39 Dose: 667 mg Documented by: [id number] Admin: 12/05/20 08:47 Dose: 667 mg Documented by: [id number] Carvedilol (Carvedilol 3.125 Mg Tab) 3.125 mg PO BID [facility] Stop: 01/03/21 20:59 Last Admin: 12/05/20 08:46 Dose: 3.125 mg Documented by: [id number] Admin: 12/04/20 21:43 Dose: 3.125 mg Documented by: [id number] Clopidogrel Bisulfate (Clopidogrel Bisulfate 75 Mg Tab) 75 mg PO QAM [facility] Stop: 01/04/21 09:29 Last Admin: 12/05/20 10:15 Dose: 75 mg Documented by: [id number] Furosemide (Furosemide 40 Mg Tab) 40 mg PO BID JOSE FRANCISCO Stop: 01/03/21 20:59 Last Admin: 12/05/20 08:46 Dose: 40 mg Documented by: [id number] Admin: 12/04/20 21:42 Dose: 40 mg Documented by: [id number] Hydralazine HCl (Hydralazine Tab 50 Mg Tab) 50 mg PO TID [facility] Stop: 01/03/21 20:59 Last Admin: 12/05/20 08:47 Dose: 50 mg Documented by: [id number] Admin: 12/04/20 21:42 Dose: 50 mg Documented by: [id number] Insulin Aspart (Insulin Aspart 100 Units/Ml 3 Ml Pen) 0 units SC ACHS [facility] Stop: 01/03/21 17:29 Last Admin: 12/05/20 12:39 Dose: 6 units Documented by: [id number] Cosigned by: [id number] Admin: 12/05/20 08:41 Dose: 4 units Documented by: [id number] Cosigned by: [id number] Admin: 12/04/20 21:40 Dose: 2 units Documented by: [id number] Cosigned by: [id number] Admin: 12/04/20 18:18 Dose: 3 units Documented by: [id number] Cosigned by: [id number] Insulin Glargine (Insulin Glargine Solostar 100 Units/Ml 3 Ml Pen) 5 units SC QAM [facility] Stop: 01/04/21 08:59 Last Admin: 12/05/20 08:42 Dose: 5 units Documented by: [id number] Cosigned by: [id number] Multivitamins (Multivitamin Tab) 1 tab PO QAM [facility] Stop: 01/04/21 08:59 Last Admin: 12/05/20 08:47 Dose: 1 tab Documented by: [id number] Vitamin B Complex/Folic Acid (Nephrocaps) 1 cap PO QAM [facility] Stop: 01/04/21 08:59 Last Admin: 12/05/20 08:46 Dose: 1 cap Documented by: [id number] Vitamin D (Cholecalciferol 1,000 Units 25 Mcg Tab) [facility] [place]: 01/04/21 08:59 Last Admin: 12/05/20 08:47 Dose: 4,000 units Documented by: [id number] Discontinued Medications Aspirin (Aspirin Chew 324 Mg) 324 mg PO NOW STA Stop: 12/04/20 20:40 Last Admin: 12/04/20 21:44 Dose: 324 mg Documented by: [id number] Acetaminophen (Ofirmev) 1,000 mg in 100 mls @ 400 mls/hr IV NOW STA Stop: 12/04/20 12:48 Last Infusion: 12/04/20 13:16 Dose: 0 mls/hr Documented by: [id number] Admin: 12/04/20 13:01 Dose: 400 mls/hr Documented by: [id number] Miscellaneous Information (Pharmacy Glycemic Mgmt Consult) 1 ea N/A NOW ; Protocol Stop: 12/04/20 15:41 Last Admin: 12/04/20 18:19 Dose: 1 ea Documented by: [id number] Description This is a 21 electrode EEG with a single channel dedicated to limited EKG. The electrodes were placed in accordance with the International 10-20 system. This EEG was done as a bedside recording is of excellent technical quality with fewer no muscle movement artifacts. Photic stimulation was performed. Drowsiness/sleep not recorded. Under these conditions there is evidence for normal background rhythm in the alpha range of up to 9 to 10 Hz maximum frequency of up to 30 V maximum amplitude. This is bilaterally symmetrical in maximum posterior head regions. Polymorphic mid frequency central region maximal and symmetrical theta activity is seen. Beta activity seen bifrontally. Photic stimulation induces no important changes There is no evidence for potentially epileptogenic activity Interpretation This is a normal EEG during wakefulness Clinical Correlation There is a normal EEG during wakefulness without evidence for focal or generalized encephalopathy without evidence for potentially epileptogenic activity Edson Baez MD
--- NOTE | 2020-12-05 14:43 | Hospitalist Progress Note ---
Date of Service December 05, 2020 Assessment & Plan (1) Syncope and collapse: Plan: Pt is 65 y/o F with PMH ESRD on HD MWF, chronic diastolic congestive failure, HTN, HLD, DM II, diabetic neuropathy, anemia who presents from dialysis for c/o of having cardiac arrest prior to arrival. History obtained from ER staff, and patient. Reports patient was at dialysis and approximately 15 minutes into session it is reported she developed agonal respirations, unresponsiveness, did not feel pulse so started CPR with chest compressions. After first cycle of CPR report palpated pulse. Recurrent syncopal/unresponsive episode during dialysis Etiology unknown Dialysis reported an AED was utilized but no shock delivered . Less likely to be ventricular tachycardia or ventricular fibrillation since no shock by AED No arrhythmia noted on Tele Troponin ) 0.119 on admission , then 0.175, now trending down to 0.131 EEG is showed no evidence of seizure Cardiology on board Cardio will get a repeat ECHO Continue monitor in tele (2) CVA (cerebral vascular accident): Plan: CT head Small age-indeterminate lacunar infarct in the left basal ganglia. No evidence of acute hemorrhage MRI brain showed a few small acute infarcts within the left cerebral hemisphere, including a 5 mm acute infarct within the left caudate nucleus/anterior limb of the left internal capsule. U/S carotid showed No evidence for a hemodynamically significant stenosis. Neurology on board Received Aspirin 325mg in the ER, then aspirin 81mg started Plavix 75 mg adding today case discussed with neurology that recommended CTA head and neck with contrast ( case discussed with nephro Dr. Clark and ok to do the CTA with contrast since pt is HD dependent) if she was not on some form of antiplatelet therapy then she should be on dual antiplatelet therapy with plavix and aspirin for 21 days and then aspin after the 21 days Will need outpatient Zio patch if no arrhythmia noted on tele monitor Continue monitor in tele (3) Multiple fractures of ribs of both sides: Plan: CT chest:Bilateral anterior second through seventh rib fractures. No pneu mothorax Patient received chest compressions today Received Tylenol in ER with improvement of rib discomfort Incentive spirometry (4) Chronic diastolic heart failure: Plan: EF: 55-60% on 11/28/2020 echo Currently appears euvolemic Continue oral Lasix 40 mg twice daily Will get HD today (5) End stage renal failure on dialysis: Plan: ESRD on HD on MWF Follows with [facility] Has right jugular perma cath in place Plan to get HD done today since she only had 15minutes dialysis yesterday before passing out Nephrology on board case discussed with nephro Dr. Clark and ok to do the CTA with contrast since pt is HD dependen (6) Type 2 diabetes mellitus: Plan: A1c: 7.1 on 11/18/20 Continue to hold home Basaglar Basal/bolus insulin per protocol. Pharmacy on board for glycemic management Continue monitor BS (7) Hypertension: Plan: Continue carvedilol 3.125 mg BID, lasix 40mg BID and hydralazine 50mg TID (8) Anemia: Plan: Anemia of chronic disease Hgb 8.4 today Received 1 unit PRBCs during last admission Received Epogen on 11/24/20 Monitor H&H DVT Prophylaxis On SCDs CODE STATUS Full Code Admission and Anticipated Discharge Date Admission Date: December 04, 2020 Subjective Pt was seen and examined for follow up of syncope/unresponsive episode Lying in bed with no distress resting comfortable She said that she feels OK tele monitor showed no arrhythmia Currently she is being dialysed and seems to tolerate it well denies any chest pain, palpitation, dizziness and SOB Physical Exam Physical Exam: General: no distress, obese Head: normocephalic, atraumatic Eyes: PERRL, EOM's intact, conjunctiva non-injected, anicteric ENT: normal inspection external ears, nose, mucous membranes moist Neck: supple, trachea midline Lungs: clear, no respiratory distress, no wheezing/rhonchi/rales CV: RRR, no murmur, 1+ pretibial edema; chest wall with tenderness to palpation Abd: normal BS, soft, non-tender Ext: no cyanosis, no calf tenderness Neuro: A&O x 3, no focal deficits noted, normal affect Skin: warm, dry Results & Data Results & Data ([facility]) Vital Signs (Past 12 Hours) Vital Signs Temp Pulse Pulse Pulse Resp BP Pulse Ox 12/05/20 14:22 72 142/64 H 12/05/20 12:21 36.8 C 74 20 142/70 H 99 12/05/20 08:00 37.0 C 74 74 18 131/56 L 98 12/05/20 03:52 36.9 C 66 17 136/63 98 (1) Anemia Anemia type: unspecified type Qualified Code(s): D64.9 - Anemia, unspecified (2) Multiple fractures of ribs of both sides Encounter type: initial encounter Fracture type: closed Qualified Code(s): S22.43XA - Multiple fractures of ribs, bilateral, initial encounter for closed fracture (3) Hypertension Hypertension type: unspecified Qualified Code(s): I10 - Essential (primary) hypertension
[2020-12-05] MEDS ORDERED: OPTIRAY 320 125ml IV ONE (21:27)
[2020-12-06 06:24] LABS: Hematocrit (blood only) 25.1 % (37-47); Hemoglobin 7.8 g/dL (12.0-16.0); Mean Corpuscular Hemoglobin 29.5 pg (25-34); Mean Corpuscular Hgb Conc 31.1 g/dL (32-36); Mean Corpuscular Volume 95.1 fL (80-100); Mean Platelet Volume 10.1 fL (7.4-10.4); Platelet Count 116 K/uL (130-400); RDW Coefficient of Variation 14.8 % (11.5-14.5); RDW Standard Deviation 50.5 fL (36.4-46.3); Red Blood Count 2.64 M/uL (4.2-5.4); White Blood Count 7.11 K/uL (4.8-10.8)
[2020-12-06 07:20] LABS: Albumin Globulin Ratio 0.8 (0.9-2); BUN Creatinine Ratio 10.2 (10-20); Bilirubin,Total 0.3 mg/dl (0.2-1); Calcium 8.3 mg/dl (8.5-10.1); Est GFR (African American) 9.6 ml/min; Est GFR (Non-African American) 8.3 ml/min; Ferritin 481.1 ng/ml (8-388); Globulin 3.6 gm/dl (2.5-4.0); Magnesium 2.4 mg/dl (1.8-2.4); Potassium 4.3 mmol/L (3.5-5.1); Total Protein 6.6 gm/dl (6.4-8.2)
--- NOTE | 2020-12-06 08:06 | CT Scan Report ---
HEAD & NECK CTA HISTORY: Stroke symptoms. Left-sided infarct. TECHNIQUE: Multiaxial CT images of the head were performed following the intravenous administration o f contrast to evaluate the major cerebral vessels. Multiaxial CT images of the neck were also perform ed following the intravenous administration of contrast to evaluate the major cervical vessels. Maxim um intensity projection images were also obtained. A dose lowering technique was utilized adhering to the principles of ALARA. COMPARISON: Brain MRI 12/04/2020. FINDINGS: The patient's small left-sided acute infarcts are better appreciated on the prior brain MRI. Visualiz ed intracranial internal carotid arteries, distal vertebral arteries, and basilar artery are widely p atent. There is no significant stenosis, occlusion, or aneurysm seen within the bilateral ACAs, MCAs, or college president. The major dural venous sinuses are patent. Mild to moderate calcified plaque within the bry ateral carotid siphons. The aortic arch and proximal great vessels are widely patent. There is no significant stenosis, occ lusion, or dissection identified within the bilateral common carotid, internal carotid, or vertebral arteries. Partially visualized right jugular central venous catheter. Mild calcified plaque within th e bilateral carotid bifurcations. IMPRESSION: 1. No significant stenosis, occlusion, or aneurysm within the [place]. 2. No significant stenosis, occlusion, or dissection identified within the carotid or vertebral arter ies. 3. The patient's known small left-sided acute infarcts are better appreciated on the prior brain MRI. ACT 112: Negative or not required by law. Electronically signed by: Duane Baeza M.D. 12/06/2020 8:05 AM
--- NOTE | 2020-12-06 08:06 | CT Scan Report ---
HEAD & NECK CTA HISTORY: Stroke symptoms. Left-sided infarct. TECHNIQUE: Multiaxial CT images of the head were performed following the intravenous administration o f contrast to evaluate the major cerebral vessels. Multiaxial CT images of the neck were also perform ed following the intravenous administration of contrast to evaluate the major cervical vessels. Maxim um intensity projection images were also obtained. A dose lowering technique was utilized adhering to the principles of ALARA. COMPARISON: Brain MRI 12/04/2020. FINDINGS: The patient's small left-sided acute infarcts are better appreciated on the prior brain MRI. Visualiz ed intracranial internal carotid arteries, distal vertebral arteries, and basilar artery are widely p atent. 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 The major dural venous sinuses are patent. Mild to moderate calcified plaque within the bry ateral carotid siphons. The aortic arch and proximal great vessels are widely patent. There is no significant stenosis, occ lusion, or dissection identified within the bilateral common carotid, internal carotid, or vertebral arteries. Partially visualized right jugular central venous catheter. Mild calcified plaque within th e bilateral carotid bifurcations. IMPRESSION: 1. No significant stenosis, occlusion, or aneurysm within the [place]. 2. No significant stenosis, occlusion, or dissection identified within the carotid or vertebral arter ies. 3. The patient's known small left-sided acute infarcts are better appreciated on the prior brain MRI. ACT 112: Negative or not required by law. Electronically signed by: Duane Baeza M.D. 12/06/2020 8:05 AM
[2020-12-06] MEDS: INSULIN ASPART 100 UNITS/ML 3 ML PEN SC SCH ×4 (08:10→21:02)
[2020-12-06] MEDS: CALCIUM ACETATE 667 MG CAP/TAB PO SCH ×3 (08:11→17:45)
[2020-12-06] MEDS: ASPIRIN 81 MG ECTAB PO SCH (08:11)
[2020-12-06] MEDS: ATORVASTATIN 40 MG TAB PO SCH (08:11)
[2020-12-06] MEDS: FUROSEMIDE 40 MG TAB PO SCH ×2 (08:13→21:01)
[2020-12-06] MEDS: CLOPIDOGREL BISULFATE 75 MG TAB PO SCH (08:13)
[2020-12-06] MEDS: CHOLECALCIFEROL 1,000 UNITS 25 MCG TAB PO SCH (08:13)
[2020-12-06] MEDS: NEPHROCAPS PO SCH (08:14)
[2020-12-06] MEDS: INSULIN GLARGINE SOLOSTAR 100 UNITS/ML 3 ML PEN SC SCH (08:14)
[2020-12-06] MEDS: MULTIVITAMIN TAB PO SCH (08:14)
[2020-12-06] MEDS: hydrALAZINE TAB 50 MG TAB PO SCH ×3 (08:17→21:02)
[2020-12-06] MEDS: carvediloL 3.125 MG TAB PO SCH ×2 (08:17→21:01)
--- NOTE | 2020-12-06 08:51 | Nephrology Progress Note ---
Date of Service December 06, 2020 Assessment & Plan (1) ESRD (end stage renal disease): Plan: * Outpatient Rx: 3.5 hrs on a 180 optiflix @ Qb 300 Qd 600; 3 K bath. EDW 77 kg * Dialyzed yesterday for 2 hours without complication. Will plan next HD for am using low HCO3 bath * Continue nephrocaps * Low PO4 diet * Medications appropriately dosed for kidney dysfunction (2) Syncope and collapse: Plan: * Carotid doppler 12/04 revealed only plaque * Head & neck CTA 12/06/20: No significant stenosis, occlusion or aneurysm within the carotid/vertebral arteries or [place] * Echocardiogram 11/28/20: LVEF 55 - 60%, normal LV, mild MR, RV systolic function is normal * Cardiology consultation reviewed - monitoring (3) Anemia: Plan: * Iron stores are low normal * Will order IV iron * Will provide RANDY w/ HD Admission and Anticipated Discharge Date Admission Date: December 04, 2020 Subjective Mrs. Riley was seen and examined in the PCU this morning. She denied fever, angina, dyspnea or uremic symptoms. She completed 2 hour HD treatment yesterday without arrhythmia or seizure activity. Review of Systems Constitutional: + weakness; no fever Eyes: no worsening vision and no problem reported Ear, Nose, Mouth, Throat: no problem reported Respiratory: no cough and no dyspnea Cardiovascular: no chest pain, no palpitations and no edema Gastrointestinal: no abdominal pain, no nausea, no vomiting and no diarrhea/loose stools Genitourinary: no dysuria and no hematuria Musculoskeletal: no back pain Integumentary: no rash Neurologic: no falls, no dizziness and no confusion Psychiatric: no problem reported Endocrine: no problem reported Hematologic / Lymphatic: no problem reported Physical Exam Constitutional: not in distress Eyes: PERRL Neck: trachea midline, no thyromegaly Respiratory: normal respiratory effort, lungs clear to auscultation Cardiovascular: RRR, no murmur, no edema Gastrointestinal (Abdomen): normal bowel sounds, soft, nontender, no hepatosplenomegaly Musculoskeletal: Extremities: no cyanosis Results & Data ([facility]) Vital Signs (Past 12 Hours) Vital Signs Temp Pulse Resp BP Pulse Ox 12/06/20 08:16 37.2 C 67 18 138/60 98 12/06/20 04:00 37.0 C 67 18 136/65 98 12/05/20 23:41 37.0 C 64 17 147/78 H 94 12/05/20 23:27 36.9 C 75 18 141/66 H 95 Laboratory Results Laboratory Tests 12/06/20 12/06/20 06:00 06:00 WBC 7.11 Hgb 7.8 L Hct 25.1 L Plt Count 116 L Sodium 138 Potassium 4.3 Chloride 106 Carbon Dioxide 27 BUN 53 H Creatinine 5.08 H* D Glucose 121 H Calcium 8.3 L Transferrin % Sat 24 Ferritin 481.1 H PG Care Time/CCT Total # of Minutes Spent Total Time Spent with Patient: Total time spent is greater than 50% in coordination of care (as documented) at patient's floor/unit and/or counseling patient: Coding Level of Care Code 83654 Subseq Hosp Care Lvl 3 Diagnoses ESRD (end stage renal disease) N18.6 Syncope and collapse R55 Anemia D64.9 Anemia type: unspecified type (1) Anemia Anemia type: unspecified type Qualified Code(s): D64.9 - Anemia, unspecified
[2020-12-06] MEDS: IRON SUCROSE 200 MG in 0.9 % SODIUM CHLORIDE 100 ML IV SCH (09:44)
--- NOTE | 2020-12-06 14:12 | Hospitalist Progress Note ---
Date of Service December 06, 2020 Assessment & Plan (1) Syncope and collapse: Plan: Pt is 65 y/o F with PMH ESRD on HD MWF, chronic diastolic congestive failure, HTN, HLD, DM II, diabetic neuropathy, anemia who presents from dialysis for c/o of having cardiac arrest prior to arrival. History obtained from ER staff, and patient. Reports patient was at dialysis and approximately 15 minutes into session it is reported she developed agonal respirations, unresponsiveness, did not feel pulse so started CPR with chest compressions. After first cycle of CPR report palpated pulse. Recurrent syncopal/unresponsive episode during dialysis Etiology unknown Dialysis reported an AED was utilized but no shock delivered . Less likely to be ventricular tachycardia or ventricular fibrillation since no shock by AED No arrhythmia noted on Tele Troponin ) 0.119 on admission , then 0.175, now trending down to 0.131 EEG is showed no evidence of seizure Cardiology on board Limited repeat ECHO showed normal LVEF, no wall motion abnormalities. Cardiology recommended mobile outpatient cardiac traffic monitor specialist for 30 days (2) CVA (cerebral vascular accident): Plan: CT head Small age-indeterminate lacunar infarct in the left basal ganglia. No evidence of acute hemorrhage MRI brain showed a few small acute infarcts within the left cerebral hemisphere, including a 5 mm acute infarct within the left caudate nucleus/anterior limb of the left internal capsule. U/S carotid showed No evidence for a hemodynamically significant stenosis. CTA neck/head showed no significant stenosis, occlusion, or aneurysm within the [place]. No significant stenosis, occlusion, or dissection identified within the carotid or vertebral arteries. Neurology on board Received Aspirin 325mg in the ER, then aspirin 81mg and plavix added case discussed with neurology that recommended CTA head and neck with contrast (case discussed with nephro Dr. Clark and ok to do the CTA with contrast since pt is HD dependent) Continue Plavix 75mg and aspirin 81mg Case discussed with neuro that recommended dual antiplatelet therapy with Plavix and aspirin for 21 days and then continue Plavix alone after the 21 days Cardiology recommended mobile outpatient cardiac traffic monitor specialist for 30 days Continue monitor in tele for now (3) Multiple fractures of ribs of both sides: Plan: CT chest:Bilateral anterior second through seventh rib fractures. No pneumothorax Patient received chest compressions today Received Tylenol in ER with improvement of rib discomfort Incentive spirometry (4) Chronic diastolic heart failure: Plan: EF: 55-60% on 11/28/2020 echo Currently appears euvolemic Continue oral Lasix 40 mg twice daily Will get HD today (5) End stage renal failure on dialysis: Plan: ESRD on HD on MWF Follows with [facility] Has right jugular perma cath in place Nephrology on board case discussed with nephro Dr. Clark and ok to do the CTA with contrast since pt is HD dependen Tolerated HD yesterday with no problem (6) Type 2 diabetes mellitus: Plan: A1c: 7.1 on 11/18/20 Continue to hold home Basaglar Basal/bolus insulin per protocol. Pharmacy on board for glycemic management Continue monitor BS (7) Hypertension: Plan: Continue carvedilol 3.125 mg BID, lasix 40mg BID and hydralazine 50mg TID (8) Anemia: Plan: Anemia of chronic disease Hgb 7.8 today Received 1 unit PRBCs during last admission Received Epogen on 11/24/20 Monitor H&H DVT Prophylaxis On SCDs CODE STATUS Full Code Admission and Anticipated Discharge Date Admission Date: December 04, 2020 Subjective Pt was seen and examined for follow up of syncope/unresponsive episode Sitting in chair with no distress resting comfortable Pt had HD done yesterday and had no syncopal episode during HD No arrhythmia noted on tele monitor denies any chest pain, palpitation, dizziness and SOB Physical Exam Physical Exam: General: no distress, obese Head: normocephalic, atraumatic Eyes: PERRL, EOM's intact, conjunctiva non-injected, anicteric ENT: normal inspection external ears, nose, mucous membranes moist Neck: supple, trachea midline Lungs: clear, no respiratory distress, no wheezing/rhonchi/rales CV: RRR, no murmur, 1+ pretibial edema; chest wall with tenderness to palpation Abd: normal BS, soft, non-tender Ext: no cyanosis, no calf tenderness Neuro: A&O x 3, no focal deficits noted, normal affect Skin: warm, dry Results & Data Results & Data ([facility]) Vital Signs (Past 12 Hours) Vital Signs Temp Pulse Pulse Resp BP Pulse Ox 12/06/20 12:19 36.8 C 62 18 148/69 H 100 12/06/20 08:16 37.2 C 67 18 138/60 98 12/06/20 08:00 60 12/06/20 04:00 37.0 C 67 18 136/65 98 (1) Anemia Anemia type: unspecified type Qualified Code(s): D64.9 - Anemia, unspecified (2) Multiple fractures of ribs of both sides Encounter type: initial encounter Fracture type: closed Qualified Code(s): S22.43XA - Multiple fractures of ribs, bilateral, initial encounter for closed fracture (3) Hypertension Hypertension type: unspecified Qualified Code(s): I10 - Essential (primary) hypertension
--- NOTE | 2020-12-06 14:14 | Cardiology Progress Note ---
Date of Service December 06, 2020 Assessment & Plan (1) Syncope and collapse: (2) Multiple fractures of ribs of both sides: (3) CVA (cerebral vascular accident): Plan: No arrhythmias on telemetry overnight, SR in the 70s. Tolerated 2 hours of HD yesterday. Nephrology input appreciated. BP is stable. Echo with normal LVEF, no wall motion abnormalities. CTA without carotid stenosis. Agree with ASA , Clopidogrel for secondary prevention of stroke, although it does not appear this is the inciting cause of her loss of consciousness. Will need 30 day MCOT (mobile outpatient cardiac gastroenterology manager) upon discharge. Admission and Anticipated Discharge Date Admission Date: December 04, 2020 Subjective Patient seen in cardiology follow up. Denies complaints. Review of Systems Review of Systems: All systems reviewed & are unremarkable except as noted in HPI & below and Other (no chest pain with deep inspiration) Physical Exam Physical Exam: Temp Pulse Resp BP Pulse Ox 36.8 C 62 18 148/69 H 100 12/06/20 12:19 12/06/20 12:19 12/06/20 12:19 12/06/20 12:19 12/06/20 12:19 Constitutional: WD/WN, vitals as above Respiratory: normal respiratory effort, lungs clear to auscultation Cardiovascular: RRR, no murmur, no edema Gastrointestinal (Abdomen): normal bowel sounds, soft, nontender, no hepatosplenomegaly Neurologic: PERRL, EOMI, accommodation nl, no face palsy, no dysarthria Results & Data ([facility]) Vital Signs (Past 12 Hours) Vital Signs Temp Pulse Pulse Resp BP Pulse Ox 12/06/20 12:19 36.8 C 62 18 148/69 H 100 12/06/20 08:16 37.2 C 67 18 138/60 98 12/06/20 08:00 60 12/06/20 04:00 37.0 C 67 18 136/65 98 (1) Multiple fractures of ribs of both sides Encounter type: initial encounter Fracture type: closed Qualified Code(s): S22.43XA - Multiple fractures of ribs, bilateral, initial encounter for closed fracture
--- NOTE | 2020-12-06 14:15 | 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 Note ---
Date of Service: December 06, 2020 I reviewed Jeri's chart today and have not been visit to bedside. The CT angiographic studies are normal reveal no evidence for significant extracranial intracranial large or medium vessel disease. The echocardiographic study shows no obvious cardiogenic source of embolization MRI scan however would suggest at least 3 embolic events involving left middle cerebral artery distribution and thus a cardiac source or possibly a source on the thoracic aorta No cardiac arrhythmias have apparently been detected Cardiology will be doing outpatient evaluations Neurology is going to suggest dual antiplatelet therapy with low-dose aspirin and Plavix for 21 days and then likely Plavix as a single agent unless her primary care physician or nephrology would have objections to this and would prefer aspirin Cardiology is going to follow her up probably do long-term outpatient monitoring for paroxysmal atrial fibrillation and will ultimately be the decision maker is regarding use or nonuse of novel anticoagulants/Coumadin Neurology is going to sign off the case at this point I will arrange for follow- up in our office in about 3 weeks and this may be a simple telephonic visit Edson Baez MD
--- NOTE | 2020-12-06 16:44 | 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 Note ---
Date of Service: December 06, 2020 NPO after MN, tentative nuclear stress tomorrow.
[2020-12-07 06:08] LABS: Hematocrit (blood only) 25.4 % (37-47); Mean Corpuscular Hemoglobin 29.1 pg (25-34); Mean Corpuscular Hgb Conc 31.5 g/dL (32-36); Mean Corpuscular Volume 92.4 fL (80-100); Mean Platelet Volume 9.7 fL (7.4-10.4); Platelet Count 143 K/uL (130-400); RDW Coefficient of Variation 14.6 % (11.5-14.5); RDW Standard Deviation 49.5 fL (36.4-46.3); Red Blood Count 2.75 M/uL (4.2-5.4); White Blood Count 8.79 K/uL (4.8-10.8)
[2020-12-07] MEDS ORDERED: HEPARIN SOD (PORCINE) 1000 UNIT/ML IV SCH (07:00)
[2020-12-07] MEDS ORDERED: EPOETIN ALFA 10,000 UNITS/ML VIAL IV SCH (07:00)
[2020-12-07] MEDS ORDERED: SODIUM CHLORIDE 0.9% 1000ML 1,000 ML IV PRN (07:00)
[2020-12-07 07:02] LABS: Calcium 8.7 mg/dl (8.5-10.1); Est GFR (African American) 7.5 ml/min; Est GFR (Non-African American) 6.5 ml/min; Potassium 4.5 mmol/L (3.5-5.1)
[2020-12-07] MEDS: CALCIUM ACETATE 667 MG CAP/TAB PO SCH ×3 (08:41→17:48)
[2020-12-07] MEDS: ATORVASTATIN 40 MG TAB PO SCH (08:42)
[2020-12-07] MEDS: ASPIRIN 81 MG ECTAB PO SCH (08:42)
[2020-12-07] MEDS: carvediloL 3.125 MG TAB PO SCH ×2 (08:43→20:36)
[2020-12-07] MEDS: CHOLECALCIFEROL 1,000 UNITS 25 MCG TAB PO SCH (08:43)
[2020-12-07] MEDS: CLOPIDOGREL BISULFATE 75 MG TAB PO SCH (08:43)
[2020-12-07] MEDS: FUROSEMIDE 40 MG TAB PO SCH ×2 (08:44→20:36)
[2020-12-07] MEDS: hydrALAZINE TAB 50 MG TAB PO SCH ×3 (08:44→20:36)
[2020-12-07] MEDS: NEPHROCAPS PO SCH (08:45)
[2020-12-07] MEDS: MULTIVITAMIN TAB PO SCH (08:45)
[2020-12-07] MEDS: IRON SUCROSE 200 MG in 0.9 % SODIUM CHLORIDE 100 ML IV SCH (08:45)
[2020-12-07] MEDS: INSULIN ASPART 100 UNITS/ML 3 ML PEN SC SCH ×4 (08:55→20:37)
--- NOTE | 2020-12-07 08:59 | Nephrology Progress Note ---
Date of Service December 07, 2020 Assessment & Plan (1) ESRD (end stage renal disease): Plan: * Outpatient Rx: MWF 3.5 hrs 3K 3Ca F-180 optiflix @ Qb 300 Qd 600 EDW 77 kg * HD today for 2 hours using a 3K 28 mEq HCO3 bath. Notified HD RN to dialyze this afternoon following stress test (2) Syncope and collapse: Plan: * Carotid doppler 12/04 revealed only plaque * Head & neck CTA 12/06/20: No significant stenosis, occlusion or aneurysm within the carotid/vertebral arteries or [place] of [place] * Echocardiogram 11/28/20: LVEF 55 - 60%, normal LV, mild MR, RV systolic function is normal * Nuclear cardiac stress test scheduled for this am (3) Anemia: Plan: * Iron stores are low normal * Day #2 of 5 IV iron * Will provide RANDY w/ HD Admission and Anticipated Discharge Date Admission Date: December 04, 2020 Subjective Mrs. Riley was seen and examined in the PCU this morning. She denied fever, angina, dyspnea, seizure or uremic symptoms. Telemetry revealed NSR 60 - 70 bpm. No arrhythmia overnight. She is scheduled for a nuclear stress test at 9:30 am today Review of Systems Constitutional: + weakness; no fever Eyes: no worsening vision and no problem reported Ear, Nose, Mouth, Throat: no problem reported Respiratory: no cough and no dyspnea Cardiovascular: no chest pain, no palpitations and no edema Gastrointestinal: no abdominal pain, no nausea, no vomiting and no diarrhe a/loose stools Genitourinary: no dysuria and no hematuria Musculoskeletal: no back pain Integumentary: no rash Neurologic: no falls, no dizziness and no confusion Psychiatric: no problem reported Endocrine: no problem reported Hematologic / Lymphatic: no problem reported Physical Exam Constitutional: not in distress Eyes: PERRL Neck: trachea midline, no thyromegaly Respiratory: normal respiratory effort, lungs clear to auscultation Cardiovascular: RRR, no murmur, no edema Gastrointestinal (Abdomen): normal bowel sounds, soft, nontender, no hepatosplenomegaly Musculoskeletal: Extremities: no cyanosis Results & Data ([facility]) Vital Signs (Past 12 Hours) Vital Signs Temp Pulse Pulse Resp BP Pulse Ox 12/07/20 07:18 36.6 C 70 17 120/48 L 96 07/19/21 04:17 36.9 C 74 18 163/78 H 97 12/06/20 23:26 37.0 C 72 17 153/62 H 95 12/06/20 23:06 75 Laboratory Results Laboratory Tests 12/07/20 12/07/20 05:49 05:49 WBC 8.79 Hgb 8.0 L Hct 25.4 L Plt Count 143 Sodium 138 Potassium 4.5 Chloride 105 Carbon Dioxide 24 BUN 63 H Creatinine 6.23 H* D Glucose 113 H Calcium 8.7 PG Care Time/CCT Total # of Minutes Spent Total Time Spent with Patient: Total time spent is greater than 50% in coordination of care (as documented) at patient's floor/unit and/or counseling patient: Coding Level of Care Code 60272 Subseq Hosp Care Lvl 3 Diagnoses ESRD (end stage renal disease) N18.6 Syncope and collapse R55 Anemia D64.9 Anemia type: unspecified type (1) Anemia Anemia type: unspecified type Qualified Code(s): D64.9 - Anemia, unspecified
[2020-12-07] MEDS ORDERED: REGADENOSON 0.4 MG/5 ML SYR IV ONE (10:32)
--- NOTE | 2020-12-07 11:56 | Cardiology Progress Note ---
Date of Service December 07, 2020 Assessment & Plan (1) Syncope and collapse: (2) Multiple fractures of ribs of both sides: (3) CVA (cerebral vascular accident): Plan: Negative Pharm EKG stress. Away perfusion images. A borderline hypotensive response to Lexiscan noted with SBP have decline 15 mm Hg after lexiscan. Agree with ASA , Clopidogrel for secondary prevention of stroke, although it does not appear this is the inciting cause of her loss of consciousness. For 2 hr HD session today. Will need 30 day MCOT (mobile outpatient cardiac monitor car operator) upon discharge. Admission and Anticipated Discharge Date Admission Date: December 04, 2020 Subjective Patient was seen in cardiology follow-up prior to, during, and after Lexiscan n uclear stress test. Patient without any symptoms of angina. Telemetry reveals sinus rhythm in the range of 60 to 70 bpm overnight last night and thus far today without arrhythmia. Physical Exam Physical Exam: Temp Pulse Resp BP Pulse Ox 36.6 C 70 17 120/48 L 96 12/07/20 07:18 12/07/20 07:18 12/07/20 07:18 12/07/20 07:18 12/07/20 07:18 Constitutional: WD/WN, vitals as above Respiratory: normal respiratory effort, lungs clear to auscultation Cardiovascular: RRR, no murmur, no edema Gastrointestinal (Abdomen): normal bowel sounds, soft, nontender, no hepatosplenomegaly Results & Data ([facility]) Vital Signs (Past 12 Hours) Vital Signs Temp Pulse Resp BP Pulse Ox 12/07/20 07:18 36.6 C 70 17 120/48 L 96 12/07/20 04:17 36.9 C 74 18 163/78 H 97 (1) Multiple fractures of ribs of both sides Encounter type: initial encounter Fracture type: closed Qualified Code(s): S22.43XA - Multiple fractures of ribs, bilateral, initial encounter for closed fracture
--- NOTE | 2020-12-07 12:20 | Pharmacy Report ---
Pharmacy Glycemic Short Note 2 - Date of Service December 07, 2020 - Glycemic Short BSG Results (Last 24 hours): 12/06/20 12/06/20 12/07/20 16:30 20:00 05:49 Glucose 113 H POC Glucose 150 H 174 H 12/07/20 07:17 Glucose POC Glucose 133 H OUTPATIENT ANTIDIABETIC REGIMEN: * Lantus 30 units SQ QAM * Patient's A1c = 7.1% 11/18/20 * However, this result is likely somewhat unreliable in ESRD patients d/t interactions between the A1c analyzing technique and high levels of urea in ESRD, reduced RBC life span, iron deficiency anemia, and EPO administration. HbA1c > 7.5% in ESRD patient may overestimate the extent of hyperglycemia in ESRD patients. ASSESSMENT: 12/07 * Patient relatively well controlled over the past 24 hours. Patient does trend up at HS check. NPO since midnight for stress test, however provider to order a diet this afternoon. AM Lantus was held but will give daily dose at lunchtime. Will continue current novolog scale, may need to tighten dinner coverage to prevent HS spike. 12/05 * Pt is 65 y/o F with PMH ESRD on HD MWF, chronic diastolic congestive failure, HTN, HLD, DM II, diabetic neuropathy, anemia who presents from dialysis for c/o of having cardiac arrest prior to arrival. Patient was at dialysis and approximately 15 minutes into session it is reported she developed agonal respirations, unresponsiveness, did not feel pulse so started CPR with chest compressions. After first cycle of CPR report palpated pulse. Patient with recent hospitalization for similar event during dialysis. * Patient known to pharmacy glycemic service from previous admission earlier this month, will begin with similar doses of Lantus and NovoLog and titrate. PLAN FOR INPATIENT GLYCEMIC CONTROL: * Basal insulin * Lantus 5 units SQ daily (today's dose given at lunchtime) * Bolus insulin * NovoLog per scale ACHS or Q6hrs while NPO * Goal Range: Low 110 mg/dL - High 140 mg/dL * Correction Factor: 25 mg/dL/unit * Nutritional / Prandial insulin per carb ratio of 1 unit per 7 grams CHO consumed
[2020-12-07] MEDS ORDERED: INSULIN GLARGINE SOLOSTAR 100 UNITS/ML 3 ML PEN SC SCH (14:00)
--- NOTE | 2020-12-07 14:27 | Hospitalist Progress Note ---
Date of Service December 07, 2020 Assessment & Plan (1) Syncope and collapse: Plan: Pt is 65 y/o F with PMH ESRD on HD MWF, chronic diastolic congestive failure, HTN, HLD, DM II, diabetic neuropathy, anemia who presents from dialysis for c/o of having cardiac arrest prior to arrival. History obtained from ER staff, and patient. Reports patient was at dialysis and approximately 15 minutes into session it is reported she developed agonal respirations, unresponsiveness, did not feel pulse so started CPR with chest compressions. After first cycle of CPR report palpated pulse. Recurrent syncopal/unresponsive episode during dialysis Etiology unknown Dialysis reported an AED was utilized but no shock delivered . Less likely to be ventricular tachycardia or ventricular fibrillation since no shock by AED No arrhythmia noted on Tele Troponin ) 0.119 on admission , then 0.175, now trending down to 0.131 EEG is showed no evidence of seizure Cardiology on board Limited repeat ECHO showed normal LVEF, no wall motion abnormalities. Lexiscan Stress test done early - pending result During the lexiscan stress test her BP dropped significantly in the 90's, then BP back to normal Will follow up stress test result Cardiology recommended mobile outpatient cardiac teletypesetter monitor for 30 days (2) CVA (cerebral vascular accident): Plan: CT head Small age-indeterminate lacunar infarct in the left basal ganglia. No evidence of acute hemorrhage MRI brain showed a few small acute infarcts within the left cerebral hemisphere, including a 5 mm acute infarct within the left caudate nucleus/anterior limb of the left internal capsule. U/S carotid showed No evidence for a hemodynamically significant stenosis. CTA neck/head showed no significant stenosis, occlusion, or aneurysm within the [place]. No significant stenosis, occlusion, or dissection identified within the carotid or vertebral arteries. Neurology on board Received Aspirin 325mg in the ER, then aspirin 81mg and plavix added case discussed with neurology that recommended CTA head and neck with contrast (case discussed with nephro Dr. Clark and ok to do the CTA with contrast since pt is HD dependent) Continue Plavix 75mg and aspirin 81mg Case discussed with neuro that recommended dual antiplatelet therapy with Plavix and aspirin for 21 days and then continue Plavix alone after the 21 days Cardiology recommended mobile outpatient cardiac teletypesetter monitor for 30 days Continue PT/OT Continue monitor in tele for now (3) Multiple fractures of ribs of both sides: Plan: CT chest:Bilateral anterior second through seventh rib fractures. No pneumothorax Patient received chest compressions today Received Tylenol in ER with improvement of rib discomfort Incentive spirometry (4) Chronic diastolic heart failure: Plan: EF: 55-60% on 11/28/2020 echo Currently appears euvolemic Continue oral Lasix 40 mg twice daily Will get HD today (5) End stage renal failure on dialysis: Plan: ESRD on HD on MWF Follows with [facility] neurology Has right jugular perma cath in place Nephrology on board case discussed with nephro Dr. Clark and ok to do the CTA with contrast since pt is HD dependen Plan for HD today (6) Type 2 diabetes mellitus: Plan: A1c: 7.1 on 11/18/20 Continue to hold home Basaglar Basal/bolus insulin per protocol. Pharmacy on board for glycemic management Continue monitor BS (7) Hypertension: Plan: Continue carvedilol 3.125 mg BID, lasix 40mg BID and hydralazine 50mg TID (8) Anemia: Plan: Anemia of chronic disease Hgb 8 today Received 1 unit PRBCs during last admission Received Epogen on 11/24/20 Monitor H&H DVT Prophylaxis On SCDs CODE STATUS Full Code Admission and Anticipated Discharge Date Admission Date: December 04, 2020 Subjective Pt was seen and examined for follow up of syncope Lying in bed with no acute distress Pt said that she was not feeling well after the Lexiscan stress test Blood pressure dropped during the Lexiscan stress test Plan to get 2hr dialysis today as per nephrology Currently denies any chest pain, palpitation, dizziness and fever Physical Exam Physical Exam: General: no distress, obese Head: normocephalic, atraumatic Eyes: PERRL, EOM's intact, conjunctiva non-injected, anicteric ENT: normal inspection external ears, nose, mucous membranes moist Neck: supple, trachea midline Lungs: clear, no respiratory distress, no wheezing/rhonchi/rales CV: RRR, no murmur, 1+ pretibial edema; chest wall with tenderness to palpation Abd: normal BS, soft, non-tender Ext: no cyanosis, no calf tenderness Neuro: A&O x 3, no focal deficits noted, normal affect Skin: warm, dry Results & Data Results & Data ([facility]) Vital Signs (Past 12 Hours) Vital Signs Temp Pulse Pulse Resp BP BP Pulse Ox 12/07/20 13:28 36.8 C 68 14 128/58 L 98 12/07/20 12:10 64 12/07/20 07:18 36.6 C 70 17 120/48 L 96 12/07/20 04:17 36.9 C 74 18 163/78 H 97 (1) Anemia Anemia type: unspecified type Qualified Code(s): D64.9 - Anemia, unspecified (2) Multiple fractures of ribs of both sides Encounter type: initial encounter Fracture type: closed Qualified Code(s): S22.43XA - Multiple fractures of ribs, bilateral, initial encounter for closed fracture (3) Hypertension Hypertension type: unspecified Qualified Code(s): I10 - Essential (primary) hypertension
--- NOTE | 2020-12-07 15:25 | Myocardial Perfusion Study ---
Date of Service December 07, 2020 Myocardial Perfusion Study k Myocardial Perfusion Study Report [place] Act 112: Negative Procedure: 1. Myocardial perfusion study performed in multiple views/images 2. Lexiscan pharmacologic stress ECG Indications: 1. Syncope and collapse 2. Mild troponin elevation Ordering physician: Dr Arthur Procedural details: For the stress portion of the study, Lexiscan 0.4 mg was intravenously administered followed by a saline flush. This was followed by 31.57 mCi of technetium 99m Cardiolite, injected at 11:30 am on 12/07/20. 60 minutes following the injection, imaging of the heart was performed in multiple projections. For the rest portion of the study, 9.91 mCi technetium 99m Cardiolite was injected intravenously at 9:45 am on 12/07/20. 1 hour following the injection, imaging of the heart was performed in the same projections. Lexiscan stress ECG: Resting ECG demonstrated: Sinus rhythm at 67 bpm. Maximum heart rate: 77 bpm Maximal, age-predicted heart rate: 49% Resting blood pressure: 149/71 mmHg Maximum blood pressure: 149/71 mmHg The lowest blood pressure was 90/[address] changes: None Arrhythmia: None Symptoms: Patient felt mild generalized ill feeling with administration of Lexiscan, there were felt to be consistent with angina Findings: Rotating raw imaging demonstrated no significant lung uptake. There is no significant motion artifact. Heart size appeared normal. Myocardial perfusion demonstrated homogenous tracer uptake post stress as well as at rest.. Ejection fraction: >70% Wall motion: Normal No significant transient ischemic dilation. Impression: 1. Normal Lexiscan myocardial perfusion imaging study without evidence of infarct or ischemia. 2. Normal LV systolic function, ejection fraction > 70%
[2020-12-08 06:58] LABS: Hematocrit (blood only) 25.2 % (37-47); Hemoglobin 7.9 g/dL (12.0-16.0); Mean Corpuscular Hemoglobin 29.3 pg (25-34); Mean Corpuscular Hgb Conc 31.3 g/dL (32-36); Mean Corpuscular Volume 93.3 fL (80-100); Platelet Count 145 K/uL (130-400); RDW Coefficient of Variation 14.8 % (11.5-14.5); RDW Standard Deviation 50.3 fL (36.4-46.3); White Blood Count 9.23 K/uL (4.8-10.8)
[2020-12-08 07:40] LABS: BUN Creatinine Ratio 8.2 (10-20); Calcium 8.5 mg/dl (8.5-10.1); Creatinine Clr Calc Pharmacy 10.6 ml/min; Est GFR (African American) 9.3 ml/min; Potassium 4.1 mmol/L (3.5-5.1)
[2020-12-08] MEDS: hydrALAZINE TAB 50 MG TAB PO SCH ×3 (08:18→20:24)
[2020-12-08] MEDS: ASPIRIN 81 MG ECTAB PO SCH (08:19)
[2020-12-08] MEDS: CALCIUM ACETATE 667 MG CAP/TAB PO SCH ×3 (08:19→17:08)
[2020-12-08] MEDS: ATORVASTATIN 40 MG TAB PO SCH (08:19)
[2020-12-08] MEDS: CLOPIDOGREL BISULFATE 75 MG TAB PO SCH (08:19)
[2020-12-08] MEDS: carvediloL 3.125 MG TAB PO SCH ×2 (08:19→20:24)
[2020-12-08] MEDS: MULTIVITAMIN TAB PO SCH (08:19)
[2020-12-08] MEDS: CHOLECALCIFEROL 1,000 UNITS 25 MCG TAB PO SCH (08:19)
[2020-12-08] MEDS: NEPHROCAPS PO SCH (08:19)
[2020-12-08] MEDS: INSULIN ASPART 100 UNITS/ML 3 ML PEN SC SCH ×4 (08:20→21:30)
[2020-12-08] MEDS: FUROSEMIDE 40 MG TAB PO SCH ×2 (08:20→20:23)
[2020-12-08] MEDS: INSULIN GLARGINE SOLOSTAR 100 UNITS/ML 3 ML PEN SC SCH (08:21)
--- NOTE | 2020-12-08 09:50 | Nephrology Progress Note ---
Date of Service December 08, 2020 Assessment & Plan (1) ESRD (end stage renal disease): Plan: * Outpatient Rx: MWF 3.5 hrs 3K 3Ca F-180 optiflix @ Qb 300 Qd 600 EDW 77 kg * Volume status and electrolyte balance are acceptable. No acute indication for HD today. Will schedule next HD for am * Will notify outpatient unit to lower HCO3 to 28 mEq and continue 3K bath * If discharge is anticipated, please notify the [facility] HD unit at [phone] to resume outpatient treatments (2) Syncope and collapse: Plan: * Telemetry NSR 60 - 70 bpm without arrhythmia since admission * Carotid doppler 12/04 revealed only plaque * Head & neck CTA 12/06/20: No significant stenosis, occlusion or aneurysm within the carotid/vertebral arteries or [place] of [place] * Echocardiogram 11/28/20: LVEF 55 - 60%, normal LV, mild MR, RV systolic function is normal * Nuclear cardiac stress test 12/07 was negative for inducible ischemia or arrhythmia (3) Anemia: Plan: * Iron stores are low normal * Day #3 of 5 IV iron * Will provide RANDY w/ HD Admission and Anticipated Discharge Date Admission Date: December 04, 2020 Subjective Mrs. Riley was seen and examined in the PCU this morning. She denied fever, angina, dyspnea, seizure or uremic symptoms. Telemetry revealed NSR 60 - 70 bpm. No arrhythmia overnight. Nuclear stress test yesterday was negative for inducible ischmia or arrhythmia. Review of Systems Constitutional: + weakness; no fever Eyes: no worsening vision and no problem reported Ear, Nose, Mouth, Throat: no problem reported Respiratory: no cough and no dyspnea Cardiovascular: no chest pain, no palpitations and no edema Gastrointestinal: no abdominal pain, no nausea, no vomiting and no diarrhea/loose stools Genitourinary: no dysuria and no hematuria Musculoskeletal: no back pain Integumentary: no rash Neurologic: no falls, no dizziness and no confusion Psychiatric: no problem reported Endocrine: no problem reported Hematologic / Lymphatic: no problem reported Physical Exam Constitutional: not in distress Eyes: PERRL Neck: trachea midline, no thyromegaly (R IJ THC w/ clean dry dressing in place) Respiratory: normal respiratory effort, lungs clear to auscultation Cardiovascular: RRR, no murmur, no edema Gastrointestinal (Abdomen): normal bowel sounds, soft, nontender, no hepatosplenomegaly Musculoskeletal: Extremities: no cyanosis Results & Data ([facility]) Vital Signs (Past 12 Hours) Vital Signs Temp Pulse Resp BP Pulse Ox 12/08/20 07:10 36.5 C 18 150/72 H 92 12/08/20 04:00 36.5 C 66 20 128/55 L 98 12/07/20 23:00 36.7 C 72 20 144/54 H 98 Laboratory Results Laboratory Tests 12/08/20 12/08/20 06:16 06:16 WBC 9.23 Hgb 7.9 L Hct 25.2 L Plt Count 145 Sodium 139 Potassium 4.1 Chloride 105 Carbon Dioxide 29 BUN 43 H Creatinine 5.21 H* D Glucose 89 Calcium 8.5 PG Care Time/CCT Total # of Minutes Spent Total Time Spent with Patient: Total time spent is greater than 50% in coordination of care (as documented) at patient's floor/unit and/or counseling patient: Coding Level of Care Code 06253 Subseq Hosp Care Lvl 3 Diagnoses ESRD (end stage renal disease) N18.6 Syncope and collapse R55 Anemia D64.9 Anemia type: unspecified type (1) Anemia Anemia type: unspecified type Qualified Code(s): D64.9 - Anemia, unspecified
[2020-12-08] MEDS: IRON SUCROSE 200 MG in 0.9 % SODIUM CHLORIDE 100 ML IV SCH (10:08)
--- NOTE | 2020-12-08 12:04 | Cardiology Progress Note ---
Date of Service December 08, 2020 Assessment & Plan (1) Syncope and collapse: Plan: No arrhythmia detected on telemetry or on arrival post event. Normal LVEF by echo and Gated SPECT techniques. Normal nuclear stress 12/07/20 -noted relative hypotension response to lexiscan. -question if events at HD are due to orthostatic hypotension. 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 Stable for discharge. -Consider have patient in as recumbent a position as possible at HD with feet up. -plan for outpatient 30 day MCOT monitor (mobile outpatient cardiac telemetry) - I will arrange through office. (2) CVA (cerebral vascular accident): Plan: Continue ASA and clopidogrel at DC. Monitor H/ Hct. Admission and Anticipated Discharge Date Admission Date: December 04, 2020 Subjective Patient seen in cardiology follow up. Denies complaints. Tolerated HD in afternoon of 12/08/19. Telemetry reveals SR in the 60s to 70s without arrhythmia. Physical Exam Physical Exam: Temp Pulse Resp BP Pulse Ox 36.7 C 75 16 155/62 H 97 12/08/20 11:48 12/08/20 11:48 12/08/20 11:48 12/08/20 11:48 12/08/20 11:48 Constitutional: WD/WN, vitals as above Respiratory: normal respiratory effort, lungs clear to auscultation Cardiovascular: RRR, no murmur, no edema Neurologic: PERRL, EOMI, accommodation nl, no face palsy, no dysarthria Results & Data ([facility]) Vital Signs (Past 12 Hours) Vital Signs Temp Pulse Pulse Resp BP BP Pulse Ox 12/08/20 11:48 36.7 C 75 16 155/62 H 97 12/08/20 08:00 76 12/08/20 07:10 36.5 C 18 150/72 H 92 12/08/20 04:00 36.5 C 66 20 128/55 L 98
--- NOTE | 2020-12-08 16:21 | Hospitalist Progress Note ---
Date of Service December 08, 2020 Assessment & Plan (1) Syncope and collapse: Plan: Pt is 65 y/o F with PMH ESRD on HD MWF, chronic diastolic congestive failure, HTN, HLD, DM II, diabetic neuropathy, anemia who presents from dialysis for c/o of having cardiac arrest prior to arrival. History obtained from ER staff, and patient. Reports patient was at dialysis and approximately 15 minutes into session it is reported she developed agonal respirations, unresponsiveness, did not feel pulse so started CPR with chest compressions. After first cycle of CPR report palpated pulse. Recurrent syncopal/unresponsive episode during dialysis Etiology unknown Dialysis reported an AED was utilized but no shock delivered . Less likely to be ventricular tachycardia or ventricular fibrillation since no shock by AED No arrhythmia noted on Tele Troponin ) 0.119 on admission , then 0.175, now trending down to 0.131 EEG is showed no evidence of seizure Cardiology on board Limited repeat ECHO showed normal LVEF, no wall motion abnormalities. Lexiscan Stress test done early - pending result During the lexiscan stress test her BP dropped significantly in the 90's, then BP back to normal Will follow up stress test result Cardiology recommended mobile outpatient cardiac residential monitor for 30 days Ok from cardiology standpoint to discharge (2) CVA (cerebral vascular accident): Plan: CT head Small age-indeterminate lacunar infarct in the left basal ganglia. No evidence of acute hemorrhage MRI brain showed a few small acute infarcts within the left cerebral hemisphere, including a 5 mm acute infarct within the left caudate nucleus/anterior limb of the left internal capsule. U/S carotid showed No evidence for a hemodynamically significant stenosis. CTA neck/head showed no significant stenosis, occlusion, or aneurysm within the [place]. No significant stenosis, occlusion, or dissection identified within the carotid or vertebral arteries. Neurology on board Received Aspirin 325mg in the ER, then aspirin 81mg and plavix added case discussed with neurology that recommended CTA head and neck with contrast (case discussed with nephro Dr. Clark and ok to do the CTA with contrast since pt is HD dependent) Continue Plavix 75mg and aspirin 81mg Case discussed with neuro that recommended dual antiplatelet therapy with Plavix and aspirin for 21 days and then continue Plavix alone after the 21 days Cardiology recommended mobile outpatient cardiac residential monitor for 30 days Continue PT/OT Continue monitor in tele for now Follow up with neurology in 3 weeks (3) Multiple fractures of ribs of both sides: Plan: CT chest:Bilateral anterior second through seventh rib fractures. No pneumotho rax Patient received chest compressions today Received Tylenol in ER with improvement of rib discomfort Incentive spirometry (4) Ambulatory dysfunction: Plan: Continue PT/OT PT recommended rehab or 24hr care Not safe to go home since she lives alone and had 2 admissions due to unresponsive in HD Emcomtabithas will eval her tomorrow after her HD and will decide Fall precaution (5) Chronic diastolic heart failure: Plan: EF: 55-60% on 11/28/2020 echo Currently appears euvolemic Continue oral Lasix 40 mg twice daily Will get HD today (6) End stage renal failure on dialysis: Plan: ESRD on HD on MWF Follows with [facility] Has right jugular perma cath in place Nephrology on board case discussed with nephro Dr. Clark and ok to do the CTA with contrast since pt is HD dependen Plan for HD today (7) Type 2 diabetes mellitus: Plan: A1c: 7.1 on 11/18/20 Continue to hold home Basaglar Basal/bolus insulin per protocol. Pharmacy on board for glycemic management Continue monitor BS (8) Hypertension: Plan: Continue carvedilol 3.125 mg BID, lasix 40mg BID and hydralazine 50mg TID (9) Anemia: Plan: Anemia of chronic disease Hgb 8 today Received 1 unit PRBCs during last admission Received Epogen on 11/24/20 Monitor H&H DVT Prophylaxis On SCDs CODE STATUS Full Code Disposition Waiting for placement Admission and Anticipated Discharge Date Admission Date: December 04, 2020 Subjective Pt was seen and examined for follow up of syncope Lying in bed with no acute distress She said that she feels fine Therapy walked with her and recommended 24 hr care or rehab Pt lives alone and had 2 admission due to unresponsive in HD He had 2 hr HD done yesterday case management is working to get her to rehab at [facility] Tessie would like her to get HD tomorrow and will eval her and decide after HD Currently denies any chest pain, palpitation, dizziness and fever Physical Exam Physical Exam: General: no distress, obese Head: normocephalic, atraumatic Eyes: PERRL, EOM's intact, conjunctiva non-injected, anicteric ENT: normal inspection external ears, nose, mucous membranes moist Neck: supple, trachea midline Lungs: clear, no respiratory distress, no wheezing/rhonchi/rales CV: RRR, no murmur, 1+ pretibial edema; chest wall with tenderness to palpation Abd: normal BS, soft, non-tender Ext: no cyanosis, no calf tenderness Neuro: A&O x 3, no focal deficits noted, normal affect Skin: warm, dry Results & Data Results & Data ([facility]) Vital Signs (Past 12 Hours) Vital Signs Temp Pulse Pulse Resp BP BP Pulse Ox 12/08/20 16:14 36.8 C 77 18 143/105 H 94 12/08/20 11:48 36.7 C 75 16 155/62 H 97 12/08/20 08:00 76 12/08/20 07:10 36.5 C 18 150/72 H 92 (1) Anemia Anemia type: unspecified type Qualified Code(s): D64.9 - Anemia, unspecified (2) Multiple fractures of ribs of both sides Encounter type: initial encounter Fracture type: closed Qualified Code(s): S22.43XA - Multiple fractures of ribs, bilateral, initial encounter for closed fracture (3) Hypertension Hypertension type: unspecified Qualified Code(s): I10 - Essential (primary) hypertension
[2020-12-09 06:39] LABS: Hematocrit (blood only) 24.5 % (37-47); Hemoglobin 7.7 g/dL (12.0-16.0); Mean Corpuscular Hemoglobin 28.9 pg (25-34); Mean Corpuscular Hgb Conc 31.4 g/dL (32-36); Mean Corpuscular Volume 92.1 fL (80-100); Mean Platelet Volume 9.4 fL (7.4-10.4); Platelet Count 171 K/uL (130-400); RDW Coefficient of Variation 14.9 % (11.5-14.5); RDW Standard Deviation 49.6 fL (36.4-46.3); Red Blood Count 2.66 M/uL (4.2-5.4); White Blood Count 9.51 K/uL (4.8-10.8)
[2020-12-09] MEDS ORDERED: HEPARIN SOD (PORCINE) 1000 UNIT/ML IV ONE (07:00)
[2020-12-09] MEDS ORDERED: EPOETIN ALFA 10,000 UNITS/ML VIAL IV SCH (07:00)
[2020-12-09] MEDS ORDERED: SODIUM CHLORIDE 0.9% 1000ML 1,000 ML IV PRN (07:00)
[2020-12-09 07:24] LABS: BUN Creatinine Ratio 8.5 (10-20); Calcium 8.8 mg/dl (8.5-10.1); Creatinine Clr Calc Pharmacy 7.7 ml/min; Est GFR (African American) 6.5 ml/min; Est GFR (Non-African American) 5.6 ml/min
[2020-12-09] MEDS: ASPIRIN 81 MG ECTAB PO SCH (07:43)
[2020-12-09] MEDS: ATORVASTATIN 40 MG TAB PO SCH (07:43)
[2020-12-09] MEDS: CLOPIDOGREL BISULFATE 75 MG TAB PO SCH (07:43)
[2020-12-09] MEDS: CALCIUM ACETATE 667 MG CAP/TAB PO SCH ×3 (07:43→16:58)
[2020-12-09] MEDS: FUROSEMIDE 40 MG TAB PO SCH (07:45)
[2020-12-09] MEDS: hydrALAZINE TAB 50 MG TAB PO SCH ×2 (07:45→13:47)
[2020-12-09] MEDS: CHOLECALCIFEROL 1,000 UNITS 25 MCG TAB PO SCH (07:45)
[2020-12-09] MEDS: carvediloL 3.125 MG TAB PO SCH (07:45)
[2020-12-09] MEDS: NEPHROCAPS PO SCH (07:46)
[2020-12-09] MEDS: MULTIVITAMIN TAB PO SCH (07:46)
[2020-12-09] MEDS: INSULIN ASPART 100 UNITS/ML 3 ML PEN SC SCH ×3 (07:51→16:59)
[2020-12-09] MEDS: INSULIN GLARGINE SOLOSTAR 100 UNITS/ML 3 ML PEN SC SCH (07:52)
[2020-12-09] MEDS: IRON SUCROSE 200 MG in 0.9 % SODIUM CHLORIDE 100 ML IV SCH (08:19)
[2020-12-09] MEDS ORDERED: SODIUM CHLORIDE 0.9% 250 ML IV PRN (08:28)
--- NOTE | 2020-12-09 09:50 | Nephrology Progress Note ---
Date of Service December 09, 2020 Assessment & Plan (1) ESRD (end stage renal disease): Plan: * Outpatient Rx: MWF 3.5 hrs 3K 3Ca F-180 optiflix @ Qb 300 Qd 600 EDW 77 kg * Will provide 4 hours HD today and attempt 2 L UF * Outpatient HD unit has been contacted and advised to lower HCO3 to 28 mEq and continue 3K bath (2) Syncope and collapse: Plan: * Telemetry NSR 60 - 70 bpm without arrhythmia since admission * Carotid doppler 12/04 revealed only plaque * Head & neck CTA 12/06/20: No significant stenosis, occlusion or aneurysm within the carotid/vertebral arteries or [place] * Echocardiogram 11/28/20: LVEF 55 - 60%, normal LV, mild MR, RV systolic function is normal * Nuclear cardiac stress test 12/07 was negative for inducible ischemia or arrhythmia (3) Anemia: Plan: * Day #4 of 5 IV iron * Will provide RANDY w/ HD * No significant response to IV iron and RANDY. Hgb remains <8.0. Transfusion consent reviewed with patient. Signed consent placed on medical record. Will transfuse one unit PRBC with HD today Admission and Anticipated Discharge Date Admission Date: December 04, 2020 Subjective Mrs. Riley was seen and examined in the PCU this morning. She denied fever, angina, dyspnea, seizure or uremic symptoms. Telemetry revealed NSR 60 - 70 bpm. No arrhythmia overnight. She slept poorly due to chest discomfort from recent CPR Review of Systems Constitutional: + weakness; no fever Eyes: no worsening vision and no problem reported Ear, Nose, Mouth, Throat: no problem reported Respiratory: no cough and no dyspnea Cardiovascular: no chest pain, no palpitations and no edema Gastrointestinal: no abdominal pain, no nausea, no vomiting and no diarrhea/loose stools Genitourinary: no dysuria and no hematuria Musculoskeletal: no back pain Integumentary: no rash Neurologic: no falls, no dizziness and no confusion Psychiatric: no problem reported Endocrine: no problem reported Hematologic / Lymphatic: no problem reported Physical Exam Constitutional: not in distress Eyes: PERRL Neck: trachea midline, no thyromegaly (R IJ THC w/ clean dry dressing in place) Respiratory: normal respiratory effort, lungs clear to auscultation Cardiovascular: RRR, no murmur, no edema Gastrointestinal (Abdomen): normal bowel sounds, soft, nontender, no hepatosplenomegaly Musculoskeletal: Extremities: no cyanosis Results & Data ([facility]) Vital Signs (Past 12 Hours) Vital Signs Temp Pulse Pulse Pulse Resp BP BP 12/09/20 07:29 36.6 C 76 18 167/67 H 12/09/20 04:12 170/70 H 12/09/20 03:00 36.6 C 73 18 182/76 H 12/08/20 23:39 74 156/73 H 12/08/20 23:17 75 12/08/20 22:36 36.8 C 74 20 186/87 H Pulse Ox 12/09/20 07:29 97 12/09/20 04:12 12/09/20 03:00 95 12/08/20 23:39 97 12/08/20 23:17 12/08/20 22:36 98 Laboratory Results Laboratory Tests 12/09/20 12/09/20 06:17 06:17 WBC 9.51 Hgb 7.7 L Hct 24.5 L Plt Count 171 Sodium 137 Potassium 4.0 Chloride 104 Carbon Dioxide 26 BUN 60 H Creatinine 7.00 H* D Glucose 112 H PG Care Time/CCT Total # of Minutes Spent Total Time Spent with Patient: Total time spent is greater than 50% in coordination of care (as documented) at patient's floor/unit and/or counseling patient: Coding Level of Care Code 42650 Subseq Hosp Care Lvl 3 Diagnoses ESRD (end stage renal disease) N18.6 Syncope and collapse R55 Anemia D64.9 Anemia type: unspecified type (1) Anemia Anemia type: unspecified type Qualified Code(s): D64.9 - Anemia, unspecified
--- NOTE | 2020-12-09 15:15 | Cardiology Progress Note ---
Date of Service December 09, 2020 Assessment & Plan (1) Syncope and collapse: Plan: No arrhythmia detected on telemetry or on arrival post event. Normal LVEF by echo and Gated SPECT techniques. Normal nuclear stress 12/07/20 -noted relative hypotension response to lexiscan. -question if events at HD are due to orthostatic hypotension. -has been tolerating treatments in hospital, while supine in bed, and has been receving FIXTURE MAKER treatment with coreg and hydralazine without holding for HD. Stable for discharge. -Consider have patient in as recumbent a position as possible at HD with feet up. -plan for outpatient 30 day MCOT monitor (mobile outpatient cardiac telemetry) - I have placed an order for this in her outpatient chart. (2) CVA (cerebral vascular accident): Plan: Continue ASA and clopidogrel at DC. Monitor H/ Hct. Admission and Anticipated Discharge Date Admission Date: December 04, 2020 Subjective Patient seen. No cardiac complaints. She as speaking with her son on the telephone. She tolerated HD and transfusion this am. Telemetry reveals SR in the 70s. Physical Exam Physical Exam: Temp Pulse Resp BP Pulse Ox 36.7 C 75 16 155/62 H 97 12/08/20 11:48 12/08/20 11:48 12/08/20 11:48 12/08/20 11:48 12/08/20 11:48 Constitutional: WD/WN, vitals as above Respiratory: normal respiratory effort, lungs clear to auscultation Cardiovascular: RRR, no murmur, no edema Gastrointestinal (Abdomen): normal bowel sounds, soft, nontender, no hepatosplenomegaly Neurologic: PERRL, EOMI, accommodation nl, no face palsy, no dysarthria Results & Data ([facility]) Vital Signs (Past 12 Hours) Vital Signs Temp Pulse Pulse Pulse Resp BP BP 12/09/20 13:20 75 131/60 12/09/20 13:00 78 158/69 H 12/09/20 12:40 78 116/55 L 12/09/20 12:20 79 150/62 H 12/09/20 12:00 36.9 C 80 18 153/65 H 12/09/20 11:35 75 15 122/48 L 12/09/20 11:20 37.0 C 75 16 151/55 H 12/09/20 11:04 36.9 C 74 20 137/60 12/09/20 11:00 74 137/60 12/09/20 10:40 72 124/53 L 12/09/20 10:20 74 130/58 L 12/09/20 10:00 71 141/54 H 12/09/20 09:40 72 157/65 H 12/09/20 09:32 72 135/58 L 12/09/20 09:24 36.8 C 72 12/09/20 08:00 71 12/09/20 07:29 36.6 C 76 18 167/67 H 12/09/20 04:12 170/70 H Pulse Ox 12/09/20 13:20 12/09/20 13:00 12/09/20 12:40 12/09/20 12:20 12/09/20 12:00 12/09/20 11:35 12/09/20 11:20 12/09/20 11:04 12/09/20 11:00 12/09/20 10:40 12/09/20 10:20 12/09/20 10:00 12/09/20 09:40 12/09/20 09:32 12/09/20 09:24 12/09/20 08:00 12/09/20 07:29 97 12/09/20 04:12
[2020-12-09] MEDS ORDERED: STROKE PATIENT DISCHARGE STA (16:11)
--- NOTE | 2020-12-09 16:12 | Discharge Summary ---
Date of Service December 09, 2020 Admission HPI Per Admitting Provider Pt is 65 y/o F with PMH ESRD on HD MWF, chronic diastolic congestive failure, HTN, HLD, DM II, diabetic neuropathy, anemia who presents from dialysis for c/o of having cardiac arrest prior to arrival. History obtained from ER staff, and patient. Reports patient was at dialysis and approximately 15 minutes into session it is reported she developed agonal respirations, unresponsiveness, Did not feel pulse so started CPR with chest compressions. After first cycle of CPR report palpated pulse. Patient remembers waking up in ambulance today. Prior to dialysis patient reports was feeling fine. She thinks as dialysis was starting she felt diffuse tingling sensation. Denies any chest pain or shortness of breath prior to dialysis. States having some tenderness to chest now which she relates to the chest compressions. Denies headache. Patient with recent hospitalization for similar episode of questionable cardiac arrest while receiving dialysis. During that admission patient received dialysis without problems. Patient states did have 1 session of dialysis 2 days ago however reports cut dialysis a little short secondary to her not feeling well. Denies fever/chills, diaphoresis, N/V/D/C, ROMERO, dizziness, vision changes, neck pain, SOB, orthopnea, palpitations, cough, sore throat, choking, otalgia, rhinorrhea, abdominal pain, paresthesias, increased weakness, extremity edema, rashes, urinary symptoms. Principal Diagnosis END stage renal disease on dialysis s/p cardiac arrest Syncope Acute stroke Discharge Exam Constitutional WD/WN, vitals as above Eyes PERRL, conjunctivae normal, anicteric sclerae ENMT external ear and nose normal, oropharynx normal Respiratory Auscultation: + rales (Faint rales at base); no rhonchi Cardiovascular Rate/Rhythm: regular rate and regular rhythm Extremities: + edema (Trace bilateral pedal edema) Musculoskeletal Generalized weakness Skin no rashes, warm and dry Neurologic PERRL, EOMI, accommodation nl, no face palsy, no dysarthria Psychiatric Orientation: alert and oriented x 3 Affect: + flat affect Discharge Data Allergies Allergy/AdvReac Type Severity Reaction Status Date / Time daptomycin AdvReac sob Verified 12/04/20 15:28 Consultations 12/04/20 14:48 ED Decision to Admit Stat 12/04/20 15:03 Consult Nephrology Routine 12/04/20 17:10 Consult Neurology Routine 12/04/20 22:00 Consult Cardiology Routine Ordered Studies 12/04/20 12:34 CT chest diagnostic wo con Stat CT head/brain wo con Stat 12/04/20 17:10 MR brain wo con Routine US carotid doppler BI Routine 12/05/20 15:17 CT angio head w con Routine CT angio neck with con Routine Hospital Course (1) Syncope and collapse: Pt is 65 y/o F with PMH ESRD on HD MWF, chronic diastolic congestive failure, HTN, HLD, DM II, diabetic neuropathy, anemia who presents from dialysis for c/o of having cardiac arrest prior to arrival. History obtained from ER staff, and patient. Reports patient was at dialysis and approximately 15 minutes into session it is reported she developed agonal respirations, unresponsiveness, did not feel pulse so started CPR with chest compressions. After first cycle of CPR report palpated pulse. Recurrent syncopal/unresponsive episode during dialysis Possible secondary to hypotension during dialysis? Patient admitted in PCU, no arrhythmia noted on telemetry No arrhythmia noted on Tele Troponin ) 0.119 on admission , then 0.175, now trending down to 0.131 EEG is showed no evidence of seizure Cardiology on board Limited repeat ECHO showed normal LVEF, no wall motion abnormalities. Lexiscan Stress test no stress-induced ischemia Per cardiology patient is stable to be discharged Cardiology recommended mobile outpatient cardiac arch cushion skiving machine operator for 30 days (2) CVA (cerebral vascular accident): CT head Small age-indeterminate lacunar infarct in the left basal ganglia. No evidence of acute hemorrhage MRI brain showed a few small acute infarcts within the left cerebral hemisphere, including a 5 mm acute infarct within the left caudate nucleus/anterior limb of the left internal capsule. U/S carotid showed No evidence for a hemodynamically significant stenosis. CTA neck/head showed no significant stenosis, occlusion, or aneurysm within the squ[place] of [place]. No significant stenosis, occlusion, or dissection identified within the carotid or vertebral arteries. Neurology on board Continue Plavix 75mg and aspirin 81mg Case discussed with neuro that recommended dual antiplatelet therapy with Plavix and aspirin for 21 days and then continue Plavix alone after the 21 days mobile outpatient cardiac arch cushion skiving machine operator for 30 days -ordered by cardiology Follow up with neurology in 3 weeks (3) Multiple fractures of ribs of both sides: CT chest:Bilateral anterior second through seventh rib fractures. No pneumothorax Secondary to CPR following cardiac arrest, Improvement of rib pain discomfort with as needed Tylenol Incentive spirometry (4) Ambulatory dysfunction: Continue PT/OT PT recommended rehab or 24hr care Not safe to go home since she lives alone and had 2 admissions due to unresponsive in HD Status post dialysis today blood pressure vitals remained stable no episode of syncope postdialysis, Stable to be transferred to [facility] for acute rehab (5) Chronic diastolic heart failure: EF: 55-60% on 11/28/2020 echo Currently appears euvolemic Continue oral Lasix 40 mg twice daily Further volume management with scheduled dialysis (6) End stage renal failure on dialysis: ESRD on HD on MWF Follows with [facility] Has right jugular perma cath in place Nephrology on board (7) Type 2 diabetes mellitus: A1c: 7.1 on 11/18/20 Continue to hold home Basaglar Basal/bolus insulin per protocol. Patient was on 30 U Basaglar daily at home, during hospital stay requiring only 5 units Discussed with glycemic management pharmacy, very hard to predict what is patient's dietary intake will be like post discharge from hospital, To be on the safe side basal insulin dose reduced to half: 15 unit Basaglar daily Patient will be followed with the family physician for further glycemic management (8) Hypertension: Continue carvedilol 3.125 mg BID, lasix 40mg BID and hydralazine 50mg TID (9) Anemia: Anemia of chronic disease Received 1 unit PRBCs during last admission Received Epogen on 11/24/20 Hemoglobin noted to be 9, DVT Prophylaxis On SCDs CODE STATUS Full Code [facility]position [facility] Total Time Total Time Spent Total Time Spent (In Minutes): 35 minutes Discharge Plan Discharge Items Patient Disposition: Transfer Inpatient Rehab Fac Reason For Visit: CARDIAC ARREST Discharge Diagnosis: END stage renal disease on dialysis s/p cardiac arrest Syncope Acute stroke Activity: As commented below Activity Comment: as tolerated Non-emergency contact: Primary Care Provider Call non-emergency contact if: you have any medication questions Follow-up/Referrals: Melissa Bronson DO [Primary Care Provider] - Edson Baez MD [Physician] - (Neurology follow up in 2-3 weeks ) Diet: Dialysis Renal Addtl Attending Provider Instructions: Please take all medications as instructed on discharge list below. It is recommended that you follow-up with your primary care physician within 1-2 weeks of hospital discharge to ensure you are still doing well. Please call if you have any questions or problems. You can reach a [facility] hospitalist on duty at [facility] 24 hours a day by calling [phone] Risk Factors for Stroke: You can reduce your chances of stroke by working with your medical provider to adopt a healthy lifestyle. Some specific ways to lower your chance of stroke are: * If you are a smoker, now is the time to stop smoking cigarettes * If you are diabetic, improve the control of your blood sugars * Avoid excessive amounts of alcohol * Control high blood pressure * Lose weight if you are overweight * Be sure to lead an active lifestyle * Eat a healthy diet low in salt, cholesterol and fat You should know about other risk factors for stroke that you are unable to control. These include: * Age 55 years or older * Male gender * Certain racial groups: , or / * Family History of Stroke, Mini stroke or Heart Attack * Sickle Cell Disease Follow Up: It is important for you to keep your follow up appointments with your medical provider. Who to Call and When: Medical Emergencies: Call 911 immediately if you experience any of the following warning signs and symptoms of Stroke: * Sudden numbness or weakness of the face, arm or leg, especially on one side of the body * Sudden confusion, trouble speaking or understanding * Sudden trouble seeing in one or both eyes * Sudden trouble walking, dizziness, loss of balance or coordination * Sudden severe headache with no cause Do not delay calling 911 if you experience any warning signs or symptoms of a stroke. Delay in seeking medical attention may affect what treatments can be given to you. . Addtl Aviation Project Manager Provider Instructions: Consider have patient in as recumbent a position as possible at HD with feet up. -plan for outpatient 30 day MCOT monitor (mobile outpatient cardiac telemetry) - Acute stroke : Continue aspirin /Plavix for 21 days , then discontinue aspirin , continue with Plavix indefinitely Follow blood work : complete blood count evan 12/11 given hx of hypotension and syncope , Hb should be around 8 please refer to Nephrology for blood transfusion with Dialysis weekly Lab : complete blood work for 3 weeks while on dual antiplatelets Insulin : Basaglar insulin reduced to 15 U daily ( was on 30 U ) please follow u p with your family physician for diabetic management Pending Studies at Discharge: No Stand-Alone Forms: My [facility] Skilled Items Patient informed of condition?: No DNR: No Discharge Level of Care: Acute rehab Communicable Disease: No Discharge Prognosis: Stable Lines: None Urinary Catheter: No Medications and DC Order Prescriptions: New clopidogrel 75 mg Tablet 75 mg PO QAM 30 Days Qty: 30 RF: 0 aspirin 81 mg Tablet,Delayed Release (Dr/Ec) 81 mg PO QAM 21 Days Qty: 21 RF: 0 atorvastatin 40 mg Tablet 40 mg PO QAM 30 Days Qty: 30 RF: 0 Continued cholecalciferol (vitamin D3) [Vitamin D3] 2,000 unit Capsule 4,000 unit PO QAM RF: 0 furosemide 40 mg tablet 40 mg PO BID RF: 0 coenzyme Q10 [Co Q-10] 100 mg Capsule 100 mg PO QAM RF: 0 carvedilol 3.125 mg Tablet 3.125 mg PO BID Qty: 30 RF: 0 hydralazine 50 mg Tablet 50 mg PO TID Qty: 90 RF: 0 calcium acetate(phosphat bind) 667 mg Capsule 667 mg PO TIDM Qty: 90 RF: 0 Renal Caps 1 mg Capsule 1 cap PO QAM Qty: 90 RF: 0 multivitamin Tablet 1 tab PO QAM RF: 0 Changed Basaglar KwikPen U-100 Insulin 100 unit/mL (3 mL) insulin pen 15 unit subcut QAM Qty: 0 RF: 0 Discharge Orders: Discharge Order (Routine); Ordered 12/09/20 Ordered By: Lien Knight Admission Data Admit Date/Time: 12/04/20 15:03 Attending Provider: Lien Knight Admit Provider: Martine Christopher Primary Care Provider: Melissa Bronson Other Providers: Martine Christopher ; Reinier Ambrocio ; Bala Henry ; Edson Baez ; [facility] Other Interventions: Discharge Summary Assessment (RN) Last Done: 12/09/20 15:50
== END 2020-12-09 18:21 | DRG 312 ==
LOC: ED 12:22 → 2E 15:03 → SUATTDRO 15:03 → 2E 16:57

== ENCOUNTER 2021-01-18 11:31 | Inpatient (IN) ==
--- NOTE | 2021-01-18 12:01 | XRay Report ---
XR chest 1V portable HISTORY: Atypical Chest Pain COMPARISON: Chest 12/04/2020. FINDINGS: No pneumothorax. No pleural effusions. The heart remains mildly enlarged. There is diffuse interstitial/vascular thickening which has progressed. Patchy airspace opacities within the right ronda g are also new compared to the prior study. Right jugular dual-lumen catheter terminates at the dista l SVC. IMPRESSION: Cardiomegaly with progressive interstitial thickening and interval development of patchy right lung a irspace opacities. This could represent asymmetric pulmonary edema or a viral pneumonia. ACT 112: Negative or not required by law. Electronically signed by: Duane Baeza M.D. 01/18/2021 12:00 PM
[2021-01-18 12:10] LABS: INR 1.2 (0.9-1.1); Partial Thromboplastin Time 25.7 Seconds (21.0-31.0); Prothrombin Time 11.6 Seconds (9.0-12.0)
[2021-01-18 12:16] LABS: Basophils # (auto) 0.03 K/uL (0-0.2); Basophils % (auto) 0.4 %; Eosinophils # (auto) 0.26 K/uL (0-0.5); Eosinophils % (auto) 3.1 %; Hematocrit (blood only) 21.7 % (37-47); Hemoglobin 6.9 g/dL (12.0-16.0); Immature Granulocytes % (auto) 1.2 %; Lymphocytes # (auto) 1.14 K/uL (1.2-3.4); Lymphocytes % (auto) 13.6 %; Mean Corpuscular Hemoglobin 31.4 pg (25-34); Mean Corpuscular Hgb Conc 31.8 g/dL (32-36); Mean Corpuscular Volume 98.6 fL (80-100); Mean Platelet Volume 9.2 fL (7.4-10.4); Monocytes # (auto) 0.68 K/uL (0.11-0.59); Monocytes % (auto) 8.1 %; Neutrophils # (auto) 6.16 K/uL (1.4-6.5); Neutrophils % (auto) 73.6 %; Platelet Count 75 K/uL (130-400); Platelet Estimate Decreased (Normal); RDW Coefficient of Variation 18.2 % (11.5-14.5); White Blood Count 8.37 K/uL (4.8-10.8)
[2021-01-18 12:33] LABS: Albumin Globulin Ratio 1.1 (0.9-2); Albumin Level 3.5 gm/dl (3.4-5.0); BUN Creatinine Ratio 7.4 (10-20); Bilirubin Direct 0.2 mg/dl (0-0.2); Bilirubin,Total 0.5 mg/dl (0.2-1); Calcium 8.1 mg/dl (8.5-10.1); Creatinine Clr Calc Pharmacy 11.8 ml/min; Est GFR (Non-African American) 8.6 ml/min; Globulin 3.1 gm/dl (2.5-4.0); Magnesium 2.3 mg/dl (1.8-2.4); Phosphorus 4.2 mg/dl (2.5-4.9); Potassium 4.6 mmol/L (3.5-5.1); Total Protein 6.6 gm/dl (6.4-8.2); Troponin I 0.112 ng/ml (0-0.045)
[2021-01-18] MEDS ORDERED: SODIUM CHLORIDE 0.9% 250 ML IV PRN (13:21)
[2021-01-18 14:05] LABS: Reticulocyte % 4.2 % (0.5-2.0); Reticulocytes # 0.09 10^6/uL (0.02-0.10)
[2021-01-18 14:16] LABS: Ferritin 1386.5 ng/ml (8-388)
--- NOTE | 2021-01-18 14:46 | CT Scan Report ---
CT OF THE ABDOMEN AND PELVIS WITHOUT CONTRAST CLINICAL HISTORY: anemia, syncope COMPARISON STUDY: CT of the abdomen and pelvis November 18, 2020. Renal ultrasound November 19, 2020. TECHNIQUE: Axial images of the abdomen and pelvis were obtained without IV contrast. Images were revi ewed in the axial, sagittal, and coronal planes. Automated exposure control was utilized for the jaime dy. A dose lowering technique was utilized adhering to the principles of ALARA. FINDINGS: Please note that the chest CT will be reported separately. Interlobular septal thickening, small bilateral pleural effusions, bilateral airspace opacities and numerous healing bilateral rib fr actures are better depicted on that exam. Evaluation of the abdomen and pelvis is suboptimal on this unenhanced examination. The liver, spleen, right adrenal gland and pancreas are unremarkable. A 1.5 cm left adrenal nodule is unchanged since C T May 31, 2015. This is benign. There is no hydronephrosis. Note is made of a 4 mm calculus withi n the upper pole of the right kidney. There are no ureteral calculi. Note is made of gallbladder wall thickening with adjacent infiltration. Colonic diverticulosis is noted without evidence for acute di verticulitis. There is no evidence for a bowel obstruction. The appendix is not visualized. Anasarca is noted. There is mild infiltration adjacent to the bladder. No acute pelvic or hip fractures identi fied. No suspicious lesions are identified within visualized skeletal structures. No lymphadenopathy is present. IMPRESSION: 1. 4 mm right renal calculus. No ureteral calculi or hydronephrosis. 2. Pericholecystic infiltration and suspected gallbladder wall thickening. Gallbladder not distended. The findings are nonspecific and could be due to volume overload. However, correlation with right up per quadrant pain is recommended. If present, right upper quadrant ultrasound is recommended to exclu de acute cholecystitis. 3. Infiltration adjacent to the bladder which could be correlated with urinalysis to exclude cystitis . 4. No bowel obstruction. Colonic diverticulosis without evidence for acute diverticulitis. 5. No retroperitoneal hematoma. ACT 112: Negative or not required by law. Electronically signed by: Go Romeo M.D. 01/18/2021 2:44 PM
--- NOTE | 2021-01-18 14:48 | Electrocardiogram Report ---
Test Reason : Blood Pressure : / mmHG Vent. Rate : 068 BPM Atrial Rate : 068 BPM P-R Int : 158 ms QRS Dur : 082 ms QT Int : 440 ms P-R-T Axes : 042 028 -12 degrees QTc Int : 467 ms Normal sinus rhythm Nonspecific ST abnormality When compared with ECG of 04-DEC-2020 12:26, No significant change was found Confirmed by Ousmane Cheema ([id number]) on 01/18/2021 2:47:43 PM Referred By: Confirmed By:Ousmane Cheema
--- NOTE | 2021-01-18 15:00 | CT Scan Report ---
HEAD CT NONCONTRAST CT DOSE: HISTORY: syncope TECHNIQUE: Multiaxial CT images of the head were performed without the use of intravenous contrast. A utomated exposure control was utilized for this study. A dose lowering technique was utilized adheri ng to the principles of ALARA. Comparison: Head CT 11/27/2020. Findings: Trace left mastoid effusion. The right mastoid air cells are clear. The paranasal sinuses a re clear. The calvarium and skull base are intact. The ventricles and sulci are within normal limits. There is no mass, hematoma, midline shift, or acute infarct. There is an old punctate lacunar infarc t within the left basal ganglia. Impression: No acute intracranial abnormality. ACT 112: Negative or not required by law. Electronically signed by: Duane Baeza M.D. 01/18/2021 2:59 PM
[2021-01-18] MEDS ORDERED: hydrALAZINE HCL 20 MG/ML VIAL IV ONE ×3 (15:07→18:45)
--- NOTE | 2021-01-18 15:18 | CT Scan Report ---
CT chest diagnostic wo con CLINICAL HISTORY: anemia, syncope COMPARISON STUDY: December 04, 2020 CT DOSE: 1999.80 mGy.cm TECHNIQUE: CT of the thorax was performed from the thoracic inlet to the lung bases. Images are revi ewed in the axial, sagittal, and coronal planes. IV contrast was not administered for this examinatio n. A dose lowering technique was utilized adhering to the principles of ALARA. FINDINGS: There is no axial, supra clavicle or internal mammary lymphadenopathy seen. No mediastinal lymphadeno ash. Thyroid: Imaged portions of the thyroid gland are normal in appearance. Thoracic aorta: The thoracic aorta is normal in course and caliber, noting standard 3 vessel arch candi naina. Scattered calcifications of aortic wall are seen. Heart: Four-chamber cardiomegaly and trace pericardial effusion are again seen. Right-sided central venous catheter is again seen with tip terminating within at the atriocaval junct ion. Lungs and pleural spaces: Tracheobronchial tree is patent. Prominent septal thickening is seen within bilateral apices and lung bases. Patchy consolidative opacities with surrounding groundglass attenuation are seen within bilat eral upper and lower lobes. Above-mentioned findings are significantly worsened since prior study per formed on December 04, 2020. Previously seen pulmonary nodule within the right upper lobe is not definitely visualized due to surr ounding opacities and motion artifact. Upper abdomen: Partially visualized upper abdominal viscera is within normal limits. Skeletal structures: Fracture deformity within sternum with surrounding sclerosis is new since prior study and better seen on sagittal reconstruction. Multiple healing fractures of the left rib cage are seen. IMPRESSION: 1. Septal thickening and multifocal airspace opacities within bilateral lungs. Differential diagnosi s include pulmonary edema and multifocal pneumonia. Findings are worsened since prior study. 2. Stable four-chamber cardiomegaly with trace pericardial effusion. 3. Healing fracture deformity of the left rib cage. Interval development of fracture deformity withi n mid aspect of the sternum. 4. Atherosclerosis. 5. The rest of findings as above. ACT 112: Negative or not required by law. The above report was generated using voice recognition software. It may contain grammatical, syntax o r spelling errors. Electronically signed by: Joan Mayo DO 01/18/2021 3:17 PM
--- NOTE | 2021-01-18 15:26 | History & Physical Report ---
Date of Service January 18, 2021 Assessment & Plan (1) Syncope and collapse: Plan: -Admit to telemetry -Patient presenting from dialysis after an episode of unresponsiveness/cyanosis -CPR initiated with chest compressions only, no defibrillation medications given -History of similar episode x 2 in November 2020 - felt to be secondary to hypotension during dialysis -Patient currently alert and oriented, VSS -Continue to monitor on telemetry -Troponin mildly elevated (0.112), EKG shows NSR. Underlying CKD and recent chest compressions likely contributing to elevated troponin. Continue to trend. -Cardiology consult (2) End stage renal failure on dialysis: Plan: -MWF schedule -Nephrology consult (patient follows with [facility]) -Continue routine renal medications (3) Anemia due to chronic kidney disease: Plan: -Hgb 6.9 -No signs of bleeding -Type and crossed for 1u PRBC (4) Chronic diastolic CHF (congestive heart failure): Plan: -Appears to be euvolemic -Volume managed with furosemide and dialysis (5) Hypertension: Plan: -BP currently elevated, will give hydralazine 5 mg IV x 1 and reassess -Continue home doses of hydralazine and carvedilol (6) Thrombocytopenia: Plan: -Platelets 75K -Seems to be chronic -Monitor CBC (7) History of CVA (cerebrovascular accident): Plan: -Continue Plavix and statin (8) Type 2 diabetes mellitus: Plan: -Hgb A1c 7.1 10/2020 -Lantus and NovoLog per protocol while hospitalized (9) DVT prophylaxis: Plan: -SCDs due to thrombocytopenia (10) Abnormal CT scan of lung: History of Present Illness Chief Complaint: syncope, possible cardiac arrest Primary Care Provider: Melissa Bronson DO 65 year old female with PMH DM type II, ESRD on HD MWF, HTN, history of CVA, other problems listed below who presents to the ED from dialysis for evaluation of syncope versus possible cardiac arrest. Patient had 2 admissions in November 2020 for very similar presentation. It was felt as though episodes were seco ndary to hypotension during dialysis. During last admission, patient underwent brain MRI that showed a few small acute infarcts in the left cerebral hemisphere. Patient was started on aspirin and Plavix x 21 days and was to continue Plavix only. EEG was unremarkable. Lexiscan was negative for inducible ischemia however patient hypotensive response. Patient was discharged to [facility] for rehab, she returned home about 2 weeks ago. Today while at dialysis, about 20 minutes into her session, patient became unresponsive and cyanotic. CPR was initiated with chest compressions only, no defibrillation or medications were given. No seizure-like activity reported. Patient was sent to the ED for further evaluation. Patient reports she remembers waking up in the ambulance. Reports she otherwise has been feeling well recently. Reports some current chest discomfort from CPR, denies any other preceding chest pain. No shortness of breath. Reports compliance with continuous 2L oxygen. No other recent illnesses, fevers, chills. She denies abdominal pain, nausea, vomiting, diarrhea (noted that nurse found patient incontinent of diarrhea). No urinary symptoms. In the ED, patient is awake, alert, oriented. She is hemodynamically stable. Labs show Hgb 6.9, platelets 75K. Troponin 0.112, EKG shows NSR. Allergies Allergy/AdvReac Type Severity Reaction Status Date / Time daptomycin AdvReac sob Verified 12/04/20 15:28 Home Medications Medication Instructions Recorded Confirmed Type cholecalciferol (vitamin D3) 50 4,000 unit PO QAM 07/07/18 01/18/21 History mcg (2,000 unit) capsule (Vitamin D3) coenzyme Q10 100 mg capsule (Co 100 mg PO QAM 11/18/20 01/18/21 History Q-10) furosemide 40 mg tablet 40 mg PO BID 11/18/20 01/18/21 History calcium acetate(phosphat bind) 667 667 mg PO TIDM #90 cap 11/24/20 01/18/21 Rx mg capsule carvedilol 3.125 mg tablet 3.125 mg PO BID #30 tab 11/24/20 01/18/21 Rx hydralazine 50 mg tablet 50 mg PO TID #90 tab 11/24/20 01/18/21 Rx vitamin B complex and vitamin C 1 cap PO QAM #90 cap 11/24/20 01/18/21 Rx no.20-folic acid 1 mg capsule (Renal Caps) multivitamin 1 tab PO QAM 11/27/20 01/18/21 History atorvastatin 40 mg tablet 40 mg PO DAILY 01/18/21 01/18/21 History clopidogrel 75 mg tablet 75 mg PO DAILY 01/18/21 01/18/21 History insulin glargine 100 unit/mL (3 30 unit SUBCUT HS 01/18/21 01/18/21 History mL) subcutaneous pen (Basaglar KwikPen U-100 Insulin) Past Med/Surg History Medical History Anemia Callus Chronic diastolic CHF (congestive heart failure) Closed fracture of distal end of right fibula and tibia Diabetes mellitus with diabetic polyneuropathy Diabetic foot ulcer Diabetic neuropathy Dyslipidemia End stage renal failure on dialysis Foot osteomyelitis, right History of CVA (cerebrovascular accident) History of depression Hypertension Posterior capsular opacification Type 2 diabetes mellitus Ulcer of right midfoot Vitamin D deficiency Surgical History History of appendectomy Status post right foot surgery Family History Sister Ovarian cancer Brother Hypertension Social History Smoking Status: Never smoker Second Hand Exposure: No; Hx Alcohol Use: No Hx Substance Use: No Preferred Language: [place]ese 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: Effective [employer] 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 Required: No Beliefs That Will Affect Care: None marital status: Current Living Situation: Alone Current Living Situation Comment: handicap accessible appartment per patient current occupational status: retired Other Information That Helps Us Care for You: No Feels Safe at Home: Yes Safety Concerns: Feels Safe At This Time Diet Comment: stated low salt, low carb during the past year weight has: increased > 10 lbs Assistive Devices: Oxygen - Continuous Review of Systems Review of Systems: ROS per HPI, all other systems reviewed and negative Physical Exam Constitutional: WD/WN, vitals as above Eyes: PERRL, conjunctivae normal, anicteric sclerae ENMT: external ear and nose normal, oropharynx normal Respiratory: normal respiratory effort; no respiratory distress Auscultation: + diminished lung sounds (Bilaterally) Cardiovascular: Rate/Rhythm: regular rate and regular rhythm Vessels: normal peripheral pulses Extremities: no edema Chest (Breasts): Chest: + vascular access device or port (Tunnelled dialysis catheter in place to right chest) Gastrointestinal (Abdomen): normal bowel sounds, soft, nontender, no hepatosplenomegaly Musculoskeletal: no cyanosis or clubbing, extremities motor strength 5/5 right foot in boot Skin: no rashes, warm and dry Neurologic: PERRL, EOMI, accommodation nl, no face palsy, no dysarthria Psychiatric: A+Ox3, euthymic affect Results & Data Results & Data ([facility]) Vital Signs (Past 12 Hours) Vital Signs Temp Pulse Pulse Resp BP BP Pulse Ox 01/18/21 15:00 73 22 190/68 H 98 01/18/21 14:00 71 22 167/112 H 100 01/18/21 13:30 63 13 167/73 H 100 01/18/21 13:00 64 16 174/69 H 100 01/18/21 12:50 69 20 173/69 H 100 01/18/21 12:30 66 20 173/69 H 100 01/18/21 11:48 68 16 177/69 H 97 01/18/21 11:44 97 01/18/21 11:40 67 22 185/65 H 97 01/18/21 11:36 36.5 C 76 20 160/95 H 97 Laboratory Results Short CBC 01/18/21 Range/Units 11:44 WBC 8.37 (4.8-10.8) K/uL Hgb 6.9 L* (12.0-16.0) g/dL Hct 21.7 L (37-47) % Plt Count 75 L (130-400) K/uL BMP 01/18/21 11:44 Sodium 136 Potassium 4.6 Chloride 106 Carbon Dioxide 23 BUN 37 H Creatinine 4.92 H* Glucose 118 H Calcium 8.1 L Cardiac Enzymes 01/18/21 Range/Units 11:44 Troponin I 0.112 H* (0-0.045) ng/ml Liver Function 01/18/21 Range/Units 11:44 Total Bilirubin 0.5 (0.2-1) mg/dl Direct Bilirubin 0.2 (0-0.2) mg/dl AST 53 H (15-37) U/L ALT 48 (12-78) U/L Alkaline Phosphatase 77 (45-117) U/L Albumin 3.5 (3.4-5.0) gm/dl Diagnostic Findings Chest X-Ray 01/18/21 11:37 XR chest 1V portable HISTORY: Atypical Chest Pain COMPARISON: Chest 12/04/2020. FINDINGS: No pneumothorax. No pleural effusions. The heart remains mildly enlarged. There is diffuse interstitial/vascular thickening which has progressed. Patchy airspace opacities within the right lung are also new compared to the prior study. Right jugular dual-lumen catheter terminates at the distal SVC. IMPRESSION: Cardiomegaly with progressive interstitial thickening and interval development of patchy right lung airspace opacities. This could represent asymmetric pulmonary edema or a viral pneumonia. ACT 112: Negative or not required by law. Electronically signed by: Duane Baeza M.D. 01/18/2021 12:00 PM Abdomen/Pelvis CT 01/18/21 13:20 CT OF THE ABDOMEN AND PELVIS WITHOUT CONTRAST CLINICAL HISTORY: anemia, syncope COMPARISON STUDY: CT of the abdomen and pelvis November 18, 2020. Renal ultrasound November 19, 2020. TECHNIQUE: Axial images of the abdomen and pelvis were obtained without IV cont rast. Images were reviewed in the axial, sagittal, and coronal planes. Automated exposure control was utilized for the study. A dose lowering technique was utilized adhering to the principles of ALARA. FINDINGS: Please note that the chest CT will be reported separately. Interlobular septal thickening, small bilateral pleural effusions, bilateral airspace opacities and numerous healing bilateral rib fractures are better depicted on that exam. Evaluation of the abdomen and pelvis is suboptimal on this unenhanced examination. The liver, spleen, right adrenal gland and pancreas are unre markable. A 1.5 cm left adrenal nodule is unchanged since CT May 31, 2015. This is benign. There is no hydronephrosis. Note is made of a 4 mm calculus within the upper pole of the right kidney. There are no ureteral calculi. Note is made of gallbladder wall thickening with adjacent infiltration. Colonic diverticulosis is noted without evidence for acute diverticulitis. There is no evidence for a bowel obstruction. The appendix is not visualized. Anasarca is noted. There is mild infiltration adjacent to the bladder. No acute pelvic or hip fractures identified. No suspicious lesions are identified within visualized skeletal structures. No lymphadenopathy is present. IMPRESSION: 1. 4 mm right renal calculus. No ureteral calculi or hydronephrosis. 2. Pericholecystic infiltration and suspected gallbladder wall thickening. Gallbladder not distended. The findings are nonspecific and could be due to volume overload. However, correlation with right upper quadrant pain is recommended. If present, right upper quadrant ultrasound is recommended to exclude acute cholecystitis. 3. Infiltration adjacent to the bladder which could be correlated with urinalysis to exclude cystitis. 4. No bowel obstruction. Colonic diverticulosis without evidence for acute diverticulitis. 5. No retroperitoneal hematoma. ACT 112: Negative or not required by law. Electronically signed by: Go Romeo M.D. 01/18/2021 2:[address] 01/18/21 13:20 CT chest diagnostic wo con CLINICAL HISTORY: anemia, syncope COMPARISON STUDY: December 04, 2020 CT DOSE: 1999.80 mGy.cm TECHNIQUE: CT of the thorax was performed from the thoracic inlet to the lung bases. Images are reviewed in the axial, sagittal, and coronal planes. IV contrast was not administered for this examination. A dose lowering technique was utilized adhering to the principles of ALARA. FINDINGS: There is no axial, supra clavicle or internal mammary lymphadenopathy seen. No mediastinal lymphadenopathy. Thyroid: Imaged portions of the thyroid gland are normal in appearance. Thoracic aorta: The thoracic aorta is normal in course and caliber, noting standard 3 vessel arch anatomy. Scattered calcifications of aortic wall are seen. Heart: Four-chamber cardiomegaly and trace pericardial effusion are again seen. Right-sided central venous catheter is again seen with tip terminating within at the atriocaval junction. Lungs and pleural spaces: Tracheobronchial tree is patent. Prominent septal thickening is seen within bilateral apices and lung bases. Patchy consolidative opacities with surrounding groundglass attenuation are seen within bilateral upper and lower lobes. Above- mentioned findings are significantly worsened since prior study performed on December 04, 2020. Previously seen pulmonary nodule within the right upper lobe is not definitely visualized due to surrounding opacities and motion artifact. Upper abdomen: Partially visualized upper abdominal viscera is within normal limits. Skeletal structures: Fracture deformity within sternum with surrounding sclerosis is new since prior study and better seen on sagittal reconstruction. Multiple healing fractures of the left rib cage are seen. IMPRESSION: 1. Septal thickening and multifocal airspace opacities within bilateral lungs. Differential diagnosis include pulmonary edema and multifocal pneumonia. Findings are worsened since prior study. 2. Stable four-chamber cardiomegaly with trace pericardial effusion. 3. Healing fracture deformity of the left rib cage. Interval development of fracture deformity within mid aspect of the sternum. 4. Atherosclerosis. 5. The rest of findings as above. ACT 112: Negative or not required by law. The above report was generated using voice recognition software. It may contain grammatical, syntax or spelling errors. Electronically signed by: Joan Mayo DO 01/18/2021 3:[address] 01/18/21 14:[address] DOSE: HISTORY: syncope TECHNIQUE: Multiaxial CT images of the head were performed without the use of intravenous contrast. Automated exposure control was utilized for this study. A dose lowering technique was utilized adhering to the principles of ALARA. Comparison: Head CT 11/27/2020. Findings: Trace left mastoid effusion. The right mastoid air cells are clear. The paranasal sinuses are clear. The calvarium and skull base are intact. The ventricles and sulci are within normal limits. There is no mass, hematoma, midline shift, or acute infarct. There is an old punctate lacunar infarct within the left basal ganglia. Impression: No acute intracranial abnormality. ACT 112: Negative or not required by law. Electronically signed by: Duane Baeza M.D. 01/18/2021 2:59 PM Code Status & VTE Plan Code Status Patient is a full code as per my discussion with her. VTE Prophylaxis Plan VTE Prophylaxis will be ordered: Yes Supervising Physician Co-Signing Physician Notes I have seen and examined the patient and have discussed the case with the provider above. I agree with the assessment and plan as stated with the fol lowing exceptions. 65 yo F with an unresponsive episode today during dialysis. She was witnessed by staff to become unresponsive, appearing apneic and cyanotic. A pulse was undetectable so CPR was initiated for 6 cycles after which she regained consciousness and she reports that she was clear. She denies any preceding symptoms, however, does report that she stayed up all night. When asked why she said that she cannot miss the transport van, and she doesnt own an alarm clock that works. Upon further questioning, she reports having stayed up all night prior to the other two episodes of syncope, also. Physical exam reveals a chronically ill-appearing female in NAD who is oriented. Despite this, nursing reports that upon arrival to the floor she was found to have foul smelling caked up stool all over her lower half, soiling her clothing. It is unclear how she got this way but causes one to question whether or not she can appropriately care for herself at home. She was released from [facility] just two weeks ago. She was hypertensive and treated with IV hydralazine along with bring given 1 unit of blood per the ER physician. She is very fatigued on my exam, however, lungs are clear to auscultation, heart exam reveals S1/2 heard without m/g/r, no chest tenderness to palpation, a soft, NTND abdomen, and no peripheral edema. She reports no presyncopal symptoms and reports total clarity when she woke up as opposed to describing a post-ictal state. CT scan of the abdomen reveals nonspecific gallbladder wall thickening, however, she has no TTP in the RUQ. Despite this, will order RUQ us for am to rule out all contributing factors. Additionally, CT chest revealed multifocal airspace opacities that were nonspecific but progressed from the last CT. Will order empiric antibiotic coverage in the setting of hypoxia that may ? be worsening and procalcitonin in am. She also has thrombocytopenia and a HIT panel is pending. Will recommend to Nephrology that hemodialysis be performed in the room while on monitor. It would be interesting to speak with the staff who were involved in the actual event yesterday to clarify what took place. Cont to monitor on telemetry. DO Jesus (1) Hypertension Hypertension type: unspecified Qualified Code(s): I10 - Essential (primary) hypertension
[2021-01-18] MEDS ORDERED: DEXTROSE 50% 50 ML SYRINGE IV PRN (15:53)
[2021-01-18] MEDS ORDERED: ACETAMINOPHEN 325 MG TAB PO PRN (15:53)
[2021-01-18] MEDS ORDERED: GLUCAGON FOR INJ 1 MG VIAL SQ PRN (15:53)
[2021-01-18] MEDS ORDERED: GLUCOSE 40% GEL 15 GM TUBE PO PRN (15:53)
[2021-01-18] MEDS ORDERED: CARBOHYDRATES FOR HYPOGLYCEMIA PO PRN (15:53)
[2021-01-18] MEDS ORDERED: GLUCOSE 10 TABS/TUBE PO PRN (15:53)
--- NOTE | 2021-01-18 16:22 | Emergency Department Note ---
Impression & Plan Syncope and collapse, Anemia, End stage renal failure on dialysis, Elevated troponin, Thrombocytopenia ED Provider Note NAME: ZAK MORLEY AGE: 65 SEX: F ARRIVES VIA: Ambulance INFORMANT: Patient, ED PROVIDER(S): Dalton Webster MD CHIEF COMPLAINT: Syncope vs arrest PLAN: Disposition: Admit MEDICAL DECISION MAKING: The patient is a pleasant 65-year-old woman with a past medical history of end- stage renal disease on hemodialysis, hypertension, hyperlipidemia, CHF who presents to the emergency department from her dialysis center after it was reported that staff witnessed the patient become unresponsive and appeared apneic and cyanotic and were unable to detect a pulse and so CPR was initiated for 6 cycles after which the patient regained consciousness and epinephrine was never administered. Patient was unconscious upon EMS arrival. Of note, the patient did have 2 similar episodes in November it was unclear whether a true ca rdiac arrest had occurred and more likely hypotension/syncope during HD. Prior to today the patient denies any recent illness and denies fevers, chills, cough, congestion, GI symptoms. On arrival the patient is chronically ill-appearing but no acute distress, afebrile with stable vital signs. She appears pale. She has no chest wall tenderness or bony crepitus. Abdomen is benign. EKG without overt acute ischemia. WBC within normal limits. H/H 6.9/21.7 decreased from prior. Platelets 75K decreased from recent but within prior range of values. Chemistry without metabolic acidosis. Creatinine 4.9 at the patient's baseline in setting of end-stage renal disease. Electrolytes LFTs without significant abnormality. Troponin 0.112 similar to prior range of chronic elevations in the setting of her end-stage renal disease. Lipase within normal limits. COVID-19 PCR was negative. Given the patient's anemia with hemoglobin less than 7 she was consented for blood transfusion and crossed and ordered for [address] of the head, chest and abdomen pelvis were performed given change in mental status that was reported as well as her anemia (although likely related to her renal disease). CT of the head negative for acute process. CT of the chest shows multifocal airspace opacities that are nonspecific and progressed from prior. There are no acute traumatic findings of the chest or abdomen pelvis. Otherwise, nonspecific findings are noted likely related to hypervolemia in the setting of her end- stage renal disease. Patient agrees with plan for admission for further evaluat ion and management. Case was discussed with Kwaku Fraire, with Dr. Jesus Ames ospitalist who will evaluate the patient for admission. Triage Nursing notes reviewed and agree them. Additional history obtained from EMS. Prior medical records reviewed Vital Signs: reviewed and remarkable for hypertension. Differential diagnosis: Vasovagal event, dehydration, infection, hypoglycemia, electrolyte abnorm alities, cardiac sources, intracerebral event, pulmonary embolism, seizure, toxicologic, neurologic, as well as other pathologies. ER treatment provided: See below. Diagnostics interpreted by me: ECG: NSR, 68 bpm, no ectopy, nonspecific ST abnormality, no overt ST elevation or depression. Cardiac Monitoring: An order for continuous cardiac monitoring was placed and demonstrated NSR, 68 bpm, no ectopy. Laboratory studies: See below Imaging studies: See below Consultation(s): Case was discussed with Kwaku Fraire, with Dr. Jesus Ames hospitalcrow who will evaluate the patient for admission. HPI: The patient is a pleasant 65-year-old woman with a past medical history of end-stage renal disease on hemodialysis, hypertension, hyperlipidemia, CHF who presents to the emergency department from her dialysis center after it was reported that staff witnessed the patient become unresponsive and appeared apneic and cyanotic and were unable to detect a pulse and so CPR was initiated for 6 cycles after which the patient regained consciousness and epinephrine was never administered. Patient was unconscious upon EMS arrival. Of note, the patient did have 2 similar episodes in November it was unclear whether a true cardiac arrest had occurred and more likely hypotension/syncope during HD. Prior to today the patient denies any recent illness and denies fevers, chills, cough, congestion, GI symptoms. ROS: See above HPI for pertinent positives & negatives. A total of 10 systems reviewed and were otherwise negative. PAST MEDICAL HISTORY:See Below PAST SURGICAL HISTORY:See Below FAMILY HISTORY:See Below SOCIAL HISTORY:See Below HOME MEDICATIONS:See Below ALLERGIES:See Below VITALS:See Below PHYSICAL EXAMINATION: GENERAL: Awake, alert, chronically ill-appearing, in no distress HENT: Normocephalic, atraumatic. Oropharynx unremarkable. EYES: Normal conjunctiva. Sclera non-icteric. NECK: Supple. No nuchal rigidity. FROM. No JVD. RESPIRATORY: Clear to auscultation. CARDIAC: Regular rate, normal rhythm. Extremities warm and well perfused. Pulses equal. ABDOMEN: Soft, non-distended. No tenderness to palpation. No rebound or gu arding. No masses. RECTAL: Deferred. MUSCULOSKELETAL: Chest examination reveals no tenderness. Right CW HD catheter site c/d/i. The back is symmetrical on inspection without obvious abnormality. There is no CVA tenderness to palpation. No joint edema. LOWER EXTREMITIES: Calves are equal size bilaterally and non-tender. No edema. No discoloration. NEURO: Normal sensorium. No sensory or motor deficits noted. SKIN: Mild pallor. No rash or jaundice noted. Dalton Webster MD Past Med/Surg History Medical History Anemia Callus Chronic diastolic CHF (congestive heart failure) Closed fracture of distal end of right fibula and tibia Diabetes mellitus with diabetic polyneuropathy Diabetic foot ulcer Diabetic neuropathy Dyslipidemia End stage renal failure on dialysis Foot osteomyelitis, right History of CVA (cerebrovascular accident) History of depression Hypertension Posterior capsular opacification Type 2 diabetes mellitus Ulcer of right midfoot Vitamin D deficiency Surgical History History of appendectomy Status post right foot surgery Family History Sister Ovarian cancer Brother Hypertension Social History Smoking Status: Never smoker Second Hand Exposure: No; Hx Alcohol Use: No Hx Substance Use: No Preferred Language: Urdu 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: Effective Legal Job Titles Required: No Beliefs That Will Affect Care: None marital status: Current Living Situation: Alone Current Living Situation Comment: handicap accessible appartment per patient current occupational status: retired Other Information That Helps Us Care for You: No Feels Safe at Home: Yes Safety Concerns: Feels Safe At This Time Diet Comment: stated low salt, low carb during the past year weight has: increased > 10 lbs Assistive Devices: Oxygen - Continuous Allergies Allergies Allergy/AdvReac Type Severity Reaction Status Date / Time daptomycin AdvReac sob Verified 12/04/20 15:28 Home Meds Home Medications Medication Instructions Recorded Confirmed cholecalciferol (vitamin D3) 50 4,000 unit PO QAM 02/16/19 08/30/21 mcg (2,000 unit) capsule (Vitamin D3) coenzyme Q10 100 mg capsule (Co 100 mg PO QAM 11/18/20 01/18/21 Q-10) furosemide 40 mg tablet 40 mg PO BID 11/18/20 01/18/21 multivitamin 1 tab PO QAM 11/27/20 01/18/21 atorvastatin 40 mg tablet 40 mg PO DAILY 01/18/21 01/18/21 clopidogrel 75 mg tablet 75 mg PO DAILY 01/18/21 01/18/21 insulin glargine 100 unit/mL (3 30 unit SUBCUT HS 01/18/21 01/18/21 mL) subcutaneous pen (Basaglar KwikPen U-100 Insulin) Previous Rx's Medication Instructions Recorded calcium acetate(phosphat bind) 667 667 mg PO TIDM #90 cap 11/24/20 mg capsule carvedilol 3.125 mg tablet 3.125 mg PO BID #30 tab 11/24/20 hydralazine 50 mg tablet 50 mg PO TID #90 tab 11/24/20 vitamin B complex and vitamin C 1 cap PO QAM #90 cap 11/24/20 no.20-folic acid 1 mg capsule (Renal Caps) Results & Data (ED) Vital Signs Vital Signs - 24 hr 01/18/21 11:36 01/18/21 11:40 01/18/21 11:44 Temperature 36.5 C Temperature Source Oral Pulse Rate 76 67 Pulse Rate [Finger] Pulse Rate from SpO2 Sensor 67 Respiratory Rate 20 22 Respiratory Effort / Characteristics Respiratory Depth Normal Blood Pressure 160/95 H 185/65 H Blood Pressure [Left Arm] Blood Pressure Mean 116 105 Blood Pressure Mean [Left Arm] Pulse Oximetry 97 97 97 Oxygen Delivery Method Nasal Cannula Nasal Cannula Oxygen Flow Rate 3 Sepsis Recent Fever Within 48 Hours No Sepsis New/Unexplained Change in Mental Status No Sepsis Action Taken by Nursing No Action Required 01/18/21 11:48 01/18/21 12:30 01/18/21 12:50 Temperature Temperature Source Pulse Rate 66 69 Pulse Rate [Finger] 68 Pulse Rate from SpO2 Sensor 65 68 Respiratory Rate 16 20 20 Respiratory Effort / Characteristics Non-Labored Respiratory Depth Normal Blood Pressure 173/69 H 173/69 H Blood Pressure [Left Arm] 177/69 H Blood Pressure Mean 103 103 Blood Pressure Mean [Left Arm] 105 Pulse Oximetry 97 100 100 Oxygen Delivery Method Nasal Cannula Oxygen Flow Rate 3 Sepsis Recent Fever Within 48 Hours Sepsis New/Unexplained Change in Mental Status Sepsis Action Taken by Nursing 01/18/21 13:00 01/18/21 13:30 01/18/21 14:00 Temperature Temperature Source Pulse Rate 64 63 71 Pulse Rate [Finger] Pulse Rate from SpO2 Sensor 64 64 70 Respiratory Rate 16 13 22 Respiratory Effort / Characteristics Respiratory Depth Blood Pressure 174/69 H 167/73 H 167/112 H Blood Pressure [Left Arm] Blood Pressure Mean 104 104 130 Blood Pressure Mean [Left Arm] Pulse Oximetry 100 100 100 Oxygen Delivery Method Oxygen Flow Rate Sepsis Recent Fever Within 48 Hours Sepsis New/Unexplained Change in Mental Status Sepsis Action Taken by Nursing Laboratory Data Attestation: I reviewed the patient's lab results. Result diagrams: 01/18/21 11:44 01/18/21 11:44 Lab Results 01/18/21 01/18/21 01/18/21 Range/Units 11:44 11:44 11:44 WBC 8.37 (4.8-10.8) K/uL RBC 2.20 L (4.2-5.4) M/uL Hgb 6.9 L* (12.0-16.0) g/dL Hct 21.7 L (37-47) % MCV 98.6 (80-100) fL MCH 31.4 (25-34) pg MCHC 31.8 L (32-36) g/dL RDW Std Deviation 65.0 H (36.4-46.3) fL RDW Coeff of Rico 18.2 H (11.5-14.5) % Plt Count 75 L (130-400) K/uL MPV 9.2 (7.4-10.4) fL Immature Gran % (Auto) 1.2 % Neut % (Auto) 73.6 % Lymph % (Auto) 13.6 % [place] % (Auto) 8.1 % Eos % (Auto) 3.1 % Baso % (Auto) 0.4 % Reticulocyte % (Auto) 4.2 H (0.5-2.0) % Neut # (Auto) 6.16 (1.4-6.5) K/uL Lymph # (Auto) 1.14 L (1.2-3.4) K/uL [place] # (Auto) 0.68 H (0.11-0.59) K/uL Eos # (Auto) 0.26 (0-0.5) K/uL Baso # (Auto) 0.03 (0-0.2) K/uL Reticulocyte # 0.09 (0.02-0.10) 10^6/uL Immature Gran # (Auto) 0.10 H (0.00-0.02) K/uL Platelet Estimate Decreased L (Normal) PT 11.6 (9.0-12.0) Seconds INR 1.2 H (0.9-1.1) APTT 25.7 (21.0-31.0) Seconds PTT Ratio 1.0 Sodium 136 (136-145) mmol/L Potassium 4.6 (3.5-5.1) mmol/L Chloride 106 (98-107) mmol/L Carbon Dioxide 23 (21-32) mmol/L Anion Gap 7.0 (3-11) BUN 37 H (7-18) mg/dl Creatinine 4.92 H* (0.6-1.2) mg/dl Est Cr Clr Drug Dosing 11.8 ml/min Est GFR ( Amer) 10.0 ml/min Est GFR (Non-Af Amer) 8.6 ml/min BUN/Creatinine Ratio 7.4 L (10-20) Glucose 118 H (70-99) mg/dl Calcium 8.1 L (8.5-10.1) mg/dl Phosphorus 4.2 (2.5-4.9) mg/dl Magnesium 2.3 (1.8-2.4) mg/dl Iron (35-150) mcg/dl TIBC (250-450) mcg/dl Transferrin (200-360) mg/dl Ferritin (8-388) ng/ml Total Bilirubin 0.5 (0.2-1) mg/dl Direct Bilirubin 0.2 (0-0.2) mg/dl AST 53 H (15-37) U/L ALT 48 (12-78) U/L Alkaline Phosphatase 77 (45-117) U/L Troponin I 0.112 H* (0-0.045) ng/ml Total Protein 6.6 (6.4-8.2) gm/dl Albumin 3.5 (3.4-5.0) gm/dl Globulin 3.1 (2.5-4.0) gm/dl Albumin/Globulin Ratio 1.1 (0.9-2) Lipase 112 (73-393) U/L COVID-19 Eval Order SARS-CoV-2 (PCR) (Negative) Blood Type Antibody Screen Antibody Identification Antibody ID Comment Crossmatch 01/18/21 01/18/21 01/18/21 Range/Units 11:44 11:45 11:45 WBC (4.8-10.8) K/uL RBC (4.2-5.4) M/uL Hgb (12.0-16.0) g/dL Hct (37-47) % MCV (80-100) fL MCH (25-34) pg MCHC (32-36) g/dL RDW Std Deviation (36.4-46.3) fL RDW Coeff of Rico (11.5-14.5) % Plt Count (130-400) K/uL MPV (7.4-10.4) fL Immature Gran % (Auto) % Neut % (Auto) % Lymph % (Auto) % [place] % (Auto) % Eos % (Auto) % Baso % (Auto) % Reticulocyte % (Auto) Cancelled (0.5-2.0) % Neut # (Auto) (1.4-6.5) K/uL Lymph # (Auto) (1.2-3.4) K/uL [place] # (Auto) (0.11-0.59) K/uL Eos # (Auto) (0-0.5) K/uL Baso # (Auto) (0-0.2) K/uL Reticulocyte # Cancelled (0.02-0.10) 10^6/uL Immature Gran # (Auto) (0.00-0.02) K/uL Platelet Estimate (Normal) PT (9.0-12.0) Seconds INR (0.9-1.1) APTT (21.0-31.0) Seconds PTT Ratio Sodium (136-145) mmol/L Potassium (3.5-5.1) mmol/L Chloride (98-107) mmol/L Carbon Dioxide (21-32) mmol/L Anion Gap (3-11) BUN (7-18) mg/dl Creatinine (0.6-1.2) mg/dl Est Cr Clr Drug Dosing ml/min Est GFR ( Amer) ml/min Est GFR (Non-Af Amer) ml/min BUN/Creatinine Ratio (10-20) Glucose (70-99) mg/dl Calcium (8.5-10.1) mg/dl Phosphorus (2.5-4.9) mg/dl Magnesium (1.8-2.4) mg/dl Iron (35-150) mcg/dl TIBC (250-450) mcg/dl Transferrin (200-360) mg/dl Ferritin (8-388) ng/ml Total Bilirubin (0.2-1) mg/dl Direct Bilirubin (0-0.2) mg/dl AST (15-37) U/L ALT (12-78) U/L Alkaline Phosphatase (45-117) U/L Troponin I (0-0.045) ng/ml Total Protein (6.4-8.2) gm/dl Albumin (3.4-5.0) gm/dl Globulin (2.5-4.0) gm/dl Albumin/Globulin Ratio (0.9-2) Lipase (73-393) U/L COVID-19 Eval Order Covid19 at [facility] SARS-CoV-2 (PCR) NEGATIVE (Negative) Blood Type Antibody Screen Antibody Identification Antibody ID Comment Crossmatch 01/18/21 01/18/21 Range/Units 11:49 11:49 WBC (4.8-10.8) K/uL RBC (4.2-5.4) M/uL Hgb (12.0-16.0) g/dL Hct (37-47) % MCV (80-100) fL MCH (25-34) pg MCHC (32-36) g/dL RDW Std Deviation (36.4-46.3) fL RDW Coeff of Rico (11.5-14.5) % Plt Count (130-400) K/uL MPV (7.4-10.4) fL Immature Gran % (Auto) % Neut % (Auto) % Lymph % (Auto) % [place] % (Auto) % Eos % (Auto) % Baso % (Auto) % Reticulocyte % (Auto) (0.5-2.0) % Neut # (Auto) (1.4-6.5) K/uL Lymph # (Auto) (1.2-3.4) K/uL [place] # (Auto) (0.11-0.59) K/uL Eos # (Auto) (0-0.5) K/uL Baso # (Auto) (0-0.2) K/uL Reticulocyte # (0.02-0.10) 10^6/uL Immature Gran # (Auto) (0.00-0.02) K/uL Platelet Estimate (Normal) PT (9.0-12.0) Seconds INR (0.9-1.1) APTT (21.0-31.0) Seconds PTT Ratio Sodium (136-145) mmol/L Potassium (3.5-5.1) mmol/L Chloride (98-107) mmol/L Carbon Dioxide (21-32) mmol/L Anion Gap (3-11) BUN (7-18) mg/dl Creatinine (0.6-1.2) mg/dl Est Cr Clr Drug Dosing ml/min Est GFR ( Amer) ml/min Est GFR (Non-Af Amer) ml/min BUN/Creatinine Ratio (10-20) Glucose (70-99) mg/dl Calcium (8.5-10.1) mg/dl Phosphorus (2.5-4.9) mg/dl Magnesium (1.8-2.4) mg/dl Iron 64 (35-150) mcg/dl TIBC 230 L (250-450) mcg/dl Transferrin 181 L (200-360) mg/dl Ferritin 1386.5 H (8-388) ng/ml Total Bilirubin (0.2-1) mg/dl Direct Bilirubin (0-0.2) mg/dl AST (15-37) U/L ALT (12-78) U/L Alkaline Phosphatase (45-117) U/L Troponin I (0-0.045) ng/ml Total Protein (6.4-8.2) gm/dl Albumin (3.4-5.0) gm/dl Globulin (2.5-4.0) gm/dl Albumin/Globulin Ratio (0.9-2) Lipase (73-393) U/L COVID-19 Eval Order SARS-CoV-2 (PCR) (Negative) Blood Type A Positive Antibody Screen POSITIVE A Antibody Identification Anti-Fya Antibody ID Comment Crossmatch See Detail Administered Medications Calcium Acetate (Calcium Acetate 667 Mg Cap/Tab) 667 mg PO TIDM JOSE FRANCISCO Stop: 02/17/21 16:59 Last Admin: 01/18/21 17:03 Dose: 667 mg Documented by: [id number] Carvedilol (Carvedilol 3.125 Mg Tab) 3.125 mg PO BID JOSE FRANCISCO Stop: 02/17/21 20:59 Last Admin: 01/18/21 20:41 Dose: 3.125 mg Documented by: [id number] Furosemide (Furosemide 40 Mg Tab) 40 mg PO [id number] JOSE FRANCISCO Stop: 02/17/21 16:59 Last Admin: 01/18/21 17:04 Dose: 40 mg Documented by: [id number] Hydralazine HCl (Hydralazine Tab 50 Mg Tab) 50 mg PO TID JOSE FRANCISCO Stop: 02/17/21 20:59 Last Admin: 01/18/21 20:40 Dose: 50 mg Documented by: [id number] Insulin Aspart (Insulin Aspart 100 Units/Ml 3 Ml Pen) 0 units SC ACHS JOSE FRANCISCO Stop: 02/17/21 16:29 Last Admin: 01/18/21 20:41 Dose: Not Given Documented by: [id number] Cosigned by: [id number] Admin: 01/18/21 17:03 Dose: Not Given Documented by: [id number] Insulin Glargine (Insulin Glargine Solostar 100 Units/Ml 3 Ml Pen) 24 units SC HS [facility] Stop: 02/17/21 20:59 Last Admin: 01/18/21 20:41 Dose: 24 units Documented by: [id number] Cosigned by: [id number] Discontinued Medications Hydralazine HCl (Hydralazine Hcl 20 Mg/Ml Vial) 5 mg IV ONE ONE Stop: 01/18/21 16:31 Last Admin: 01/18/21 17:03 Dose: 5 mg Documented by: [id number] Hydralazine HCl (Hydralazine Hcl 20 Mg/Ml Vial) 5 mg IV NOW ONE Stop: 01/18/21 18:46 Last Admin: 01/18/21 19:48 Dose: 5 mg Documented by: [id number] Imaging Data Radiologist's Impression: Chest X-Ray 01/18/21 11:37 XR chest 1V portable HISTORY: Atypical Chest Pain COMPARISON: Chest 12/04/2020. FINDINGS: No pneumothorax. No pleural effusions. The heart remains mildly enlarged. There is diffuse interstitial/vascular thickening which has progressed. Patchy airspace opacities within the right lung are also new compared to the prior study. Right jugular dual-lumen catheter terminates at the distal SVC. IMPRESSION: Cardiomegaly with progressive interstitial thickening and interval development of patchy right lung airspace opacities. This could represent asymmetric pulmonary edema or a viral pneumonia. ACT 112: Negative or not required by law. Electronically signed by: Duane Baeza M.D. 01/18/2021 12:00 PM Abdomen/Pelvis CT 01/18/21 13:20 CT OF THE ABDOMEN AND PELVIS WITHOUT CONTRAST CLINICAL HISTORY: anemia, syncope COMPARISON STUDY: CT of the abdomen and pelvis November 18, 2020. Renal ultrasound November 19, 2020. TECHNIQUE: Axial images of the abdomen and pelvis were obtained without IV contrast. Images were reviewed in the axial, sagittal, and coronal planes. Automated exposure control was utilized for the study. A dose lowering technique was utilized adhering to the principles of ALARA. FINDINGS: Please note that the chest CT will be reported separately. Interlobular septal thickening, small bilateral pleural effusions, bilateral airspace opacities and numerous healing bilateral rib fractures are better depicted on that exam. Evaluation of the abdomen and pelvis is suboptimal on this unenhanced examination. The liver, spleen, right adrenal gland and pancreas are unremarkable. A 1.5 cm left adrenal nodule is unchanged since CT May 31, 2015. This is benign. There is no hydronephrosis. Note is made of a 4 mm calculus within the upper pole of the right kidney. There are no ureteral calculi. Note is made of gallbladder wall thickening with adjacent infiltration. Colonic diverticulosis is noted without evidence for acute diverticulitis. There is no evidence for a bowel obstruction. The appendix is not visualized. Anasarca is noted. There is mild infiltration adjacent to the bladder. No acute pelvic or hip fractures identified. No suspicious lesions are identified within visualized skeletal structures. No lymphadenopathy is present. IMPRESSION: 1. 4 mm right renal calculus. No ureteral calculi or hydronephrosis. 2. Pericholecystic infiltration and suspected gallbladder wall thickening. Gallbladder not distended. The findings are nonspecific and could be due to volume overload. However, correlation with right upper quadrant pain is recommended. If present, right upper quadrant ultrasound is recommended to exclude acute cholecystitis. 3. Infiltration adjacent to the bladder which could be correlated with urinalysi s to exclude cystitis. 4. No bowel obstruction. Colonic diverticulosis without evidence for acute diverticulitis. 5. No retroperitoneal hematoma. ACT 112: Negative or not required by law. Electronically signed by: Go Romeo M.D. 01/18/2021 2:[address] 01/18/21 13:20 CT chest diagnostic wo con CLINICAL HISTORY: anemia, syncope COMPARISON STUDY: December 04, 2020 CT DOSE: 1999.80 mGy.cm TECHNIQUE: CT of the thorax was performed from the thoracic inlet to the lung bases. Images are reviewed in the axial, sagittal, and coronal planes. IV contrast was not administered for this examination. A dose lowering technique was utilized adhering to the principles of ALARA. FINDINGS: There is no axial, supra clavicle or internal mammary lymphadenopathy seen. No mediastinal lymphadenopathy. Thyroid: Imaged portions of the thyroid gland are normal in appearance. Thoracic aorta: The thoracic aorta is normal in course and caliber, noting standard 3 vessel arch anatomy. Scattered calcifications of aortic wall are seen. Heart: Four-chamber cardiomegaly and trace pericardial effusion are again seen. Right-sided central venous catheter is again seen with tip terminating within at the atriocaval junction. Lungs and pleural spaces: Tracheobronchial tree is patent. Prominent septal thickening is seen within bilateral apices and lung bases. Patchy consolidative opacities with surrounding groundglass attenuation are seen within bilateral upper and lower lobes. Above-m entioned findings are significantly worsened since prior study performed on December 04, 2020. Previously seen pulmonary nodule within the right upper lobe is not definitely visualized due to surrounding opacities and motion artifact. Upper abdomen: Partially visualized upper abdominal viscera is within normal limits. Skeletal structures: Fracture deformity within sternum with surrounding sclerosis is new since prior study and better seen on sagittal reconstruction. Multiple healing fractures of the left rib cage are seen. IMPRESSION: 1. Septal thickening and multifocal airspace opacities within bilateral lungs. Differential diagnosis include pulmonary edema and multifocal pneumonia. Findings are worsened since prior study. 2. Stable four-chamber cardiomegaly with trace pericardial effusion. 3. Healing fracture deformity of the left rib cage. Interval development of fracture deformity within mid aspect of the sternum. 4. Atherosclerosis. 5. The rest of findings as above. ACT 112: Negative or not required by law. The above report was generated using voice recognition software. It may contain grammatical, syntax or spelling errors. Electronically signed by: Joan Mayo DO 01/18/2021 3:[address] 01/18/21 14:[address] DOSE: HISTORY: syncope TECHNIQUE: Multiaxial CT images of the head were performed without the use of intravenous contrast. Automated exposure control was utilized for this study. A dose lowering technique was utilized adhering to the principles of ALARA. Comparison: Head CT 11/27/2020. Findings: Trace left mastoid effusion. The right mastoid air cells are clear. The paranasal sinuses are clear. The calvarium and skull base are intact. The ventricles and sulci are within normal limits. There is no mass, hematoma, midline shift, or acute infarct. There is an old punctate lacunar infarct within the left basal ganglia. Impression: No acute intracranial abnormality. ACT 112: Negative or not required by law. Electronically signed by: Duane Baeza M.D. 01/18/2021 2:59 PM Discharge Plan Visit Data Chief Complaint: Cardiac Assessment Stated Complaint: POST ARREST, ED Provider: Dalton Webster Discharge Problem: Syncope and collapse, Anemia, End stage renal failure on dialysis, Elevated troponin, Thrombocytopenia Patient Disposition: Admitted As Inpatient Discharge Instructions Interventions: ED Discharge Assessment Last Done: 01/18/21 15:02 Discharge Problem: Anemia Qualifiers: Anemia type: unspecified type Qualified Code(s): D64.9 - Anemia, unspecified
--- NOTE | 2021-01-18 16:23 | Nephrology Consultation ---
Date of Consultation January 18, 2021 Assessment & Plan (1) End stage renal failure on dialysis: * Volume status and electrolyte balance are acceptable at this time. Hold HD today in light of CP arrest * Will reassess need for HD in am (2) Anemia: * Progressive drop in Hgb and platelet # * On very low dose heparin with HD * Receives RANDY w/ HD * Elevated ferritin * Recently started on Plavix * Will order FOBT, iron saturation, haptoglobin and heparin induced antibody testing * Recommend transfusion to maintain Hgb > 8.0 (3) Cardiopulmonary arrest: * Recurrent episodes occurring ~ 20 min into HD * No evidence of anaphylaxis to suggest dialyzer reaction * No other patients at outpatient HD unit effected * Monitor troponin, cardiac rhythm * Await further Cardiology input * Question need for cardiac cath due to high risk for ASCVD and suboptimal cardiac stress test History of Present Illness Reason for Consultation: ESRD on HD Attending Physician: Maria Dolores Lee, DO History of Present Illness Ms. Riley is a 65 year old white female who is seen at the request of the [facility] hospitalist group for ESRD requiring HD. Medical records in the EMR were reviewed and are summarized as follows: Ms. Riley has ESRD due to DKD, AODM, diabetic retinopathy (legally blind in R eye, no longer drives), HTN, hyperlipidemia, depression and R ankle fracture (surgically repaired - requires walking boot). She has been poorly compliant w/ outpatient follow up visits. In November 2020 she progressed to ESRD, required hospitalization and was started on HD. Her 1st dialysis treatment was 11/20/20. Since that time she has suffered two episodes of cardiac arrest as an outpatient at the [facility] HD unit. Each time CPR was administered and AED did not advise shock. No arrhythmia was recorded during her hospitalizations. Cardiology evaluation revealed normal LVEF by echo. Lexiscan cardiac stress test revealed suboptimal HR response (49% predicted) but no inducible ischemia. She did become hypotensive during the study. Ms. Riley was given a 30 day jockey valet but only 6 days were completed - no arrhythmia. This morning Ms. Riley presented for HD. Her bp was 150/73 prior to treatment and she voiced no concerns. Qb was gradually increased from 100 to 350 cc/min. Heparin loading dose of 1000 units IV x1 was provided. 15 min into her dialysis treatment Ms. Riley became suddenly unresponsive and cyanotic. She was pulseless and apneic. CPR was administered and AED applied. No shock was advised. EMS transported he to [facility] ED. ECG was NSR without ischemic change. Evaluation revealed troponin 0.112 ng/ml, Hgb 6.9, Plt 75. Electrolytes were within acceptable limits. Ms. Riley was admitted to the hospitalist service for ongoing medical evaluation. Note that 12/04/20 MRI of the brain revealed a few small acute infarcts within the L cerebral hemisphere and patient was started on Plavix therapy. She has denied overt blood loss Allergies Allergy/AdvReac Type Severity Reaction Status Date / Time daptomycin AdvReac sob Verified 12/04/20 15:28 Home Medications Medication Instructions Recorded Confirmed Type cholecalciferol (vitamin D3) 50 4,000 unit PO QAM 07/07/18 01/18/21 History mcg (2,000 unit) capsule (Vitamin D3) coenzyme Q10 100 mg capsule (Co 100 mg PO QAM 11/18/20 01/18/21 History Q-10) furosemide 40 mg tablet 40 mg PO BID 11/18/20 01/18/21 History calcium acetate(phosphat bind) 667 667 mg PO TIDM #90 cap 11/24/20 01/18/21 Rx mg capsule carvedilol 3.125 mg tablet 3.125 mg PO BID #30 tab 11/24/20 01/18/21 Rx hydralazine 50 mg tablet 50 mg PO TID #90 tab 11/24/20 01/18/21 Rx vitamin B complex and vitamin C 1 cap PO QAM #90 cap 11/24/20 01/18/21 Rx no.20-folic acid 1 mg capsule (Renal Caps) multivitamin 1 tab PO QAM 11/27/20 01/18/21 History atorvastatin 40 mg tablet 40 mg PO DAILY 01/18/21 01/18/21 History clopidogrel 75 mg tablet 75 mg PO DAILY 01/18/21 01/18/21 History insulin glargine 100 unit/mL (3 30 unit SUBCUT HS 01/18/21 01/18/21 History mL) subcutaneous pen (Basaglar KwikPen U-100 Insulin) Patient History Medical History Anemia Callus Chronic diastolic CHF (congestive heart failure) Closed fracture of distal end of right fibula and tibia Diabetes mellitus with diabetic polyneuropathy Diabetic foot ulcer Diabetic neuropathy Dyslipidemia End stage renal failure on dialysis Foot osteomyelitis, right History of CVA (cerebrovascular accident) History of depression Hypertension Posterior capsular opacification Type 2 diabetes mellitus Ulcer of right midfoot Vitamin D deficiency Surgical History History of appendectomy Status post right foot surgery Family History Sister Ovarian cancer Brother Hypertension Social History Smoking Status: Never smoker Second Hand Exposure: No; Hx Alcohol Use: No Hx Substance Use: No Preferred Language: Georgian 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: Effective 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 Beliefs That Will Affect Care: None marital status: Current Living Situation: Alone Current Living Situation Comment: handicap accessible appartment per patient current occupational status: retired Other Information That Helps Us Care for You: No Feels Safe at Home: Yes Safety Concerns: Feels Safe At This Time Diet Comment: stated low salt, low carb during the past year weight has: increased > 10 lbs Assistive Devices: Oxygen - Continuous and Walker Review of Systems Constitutional: + weakness; no fever Eyes: no worsening vision and no problem reported Ear, Nose, Mouth, Throat: no problem reported Respiratory: no cough and no dyspnea Cardiovascular: no chest pain, no palpitations and no edema Gastrointestinal: no abdominal pain, no nausea, no vomiting and no diarrhea/loose stools Genitourinary: no dysuria and no hematuria Musculoskeletal: no back pain Integumentary: no rash Neurologic: no falls, no dizziness and no confusion Psychiatric: no problem reported Endocrine: no problem reported Hematologic / Lymphatic: no problem reported Physical Exam Constitutional: not in distress Eyes: PERRL Neck: trachea midline, no thyromegaly RIJ THC with clean dry dressing in place Respiratory: normal respiratory effort, lungs clear to auscultation Cardiovascular: RRR, no murmur, no edema Gastrointestinal (Abdomen): normal bowel sounds, soft, nontender, no hepatosplenomegaly Musculoskeletal: Extremities: no cyanosis Results & Data ([facility]) Vital Signs (Past 12 Hours) Vital Signs Temp Pulse Pulse Resp BP BP Pulse Ox 01/18/21 15:00 73 22 190/68 H 98 01/18/21 14:00 71 22 167/112 H 100 01/18/21 13:30 63 13 167/73 H 100 01/18/21 13:00 64 16 174/69 H 100 01/18/21 12:50 69 20 173/69 H 100 01/18/21 12:30 66 20 173/69 H 100 01/18/21 11:48 68 16 177/69 H 97 01/18/21 11:44 97 01/18/21 11:40 67 22 185/65 H 97 01/18/21 11:36 36.5 C 76 20 160/95 H 97 Laboratory Results Laboratory Results - last 24 hr 01/18/21 01/18/21 01/18/21 11:44 11:44 11:44 WBC 8.37 RBC 2.20 L Hgb 6.9 L* Hct 21.7 L MCV 98.6 MCH 31.4 MCHC 31.8 L RDW Std Deviation 65.0 H RDW Coeff of Rico 18.2 H Plt Count 75 L MPV 9.2 Immature Gran % (Auto) 1.2 Neut % (Auto) 73.6 Lymph % (Auto) 13.6 Hettinger % (Auto) 8.1 Eos % (Auto) 3.1 Baso % (Auto) 0.4 Reticulocyte % (Auto) 4.2 H Neut # (Auto) 6.16 Lymph # (Auto) 1.14 L Hettinger # (Auto) 0.68 H Eos # (Auto) 0.26 Baso # (Auto) 0.03 Reticulocyte # 0.09 Immature Gran # (Auto) 0.10 H Platelet Estimate Decreased L PT 11.6 INR 1.2 H APTT 25.7 PTT Ratio 1.0 Sodium 136 Potassium 4.6 Chloride 106 Carbon Dioxide 23 Anion Gap 7.0 BUN 37 H Creatinine 4.92 H* Est Cr Clr Drug Dosing 11.8 Est GFR ( Amer) 10.0 Est GFR (Non-Af Amer) 8.6 BUN/Creatinine Ratio 7.4 L Glucose 118 H POC Glucose Calcium 8.1 L Phosphorus 4.2 Magnesium 2.3 Iron TIBC Transferrin Ferritin Total Bilirubin 0.5 Direct Bilirubin 0.2 AST 53 H ALT 48 Alkaline Phosphatase 77 Troponin I 0.112 H* Total Protein 6.6 Albumin 3.5 Globulin 3.1 Albumin/Globulin Ratio 1.1 Lipase 112 COVID-19 Eval Order SARS-CoV-2 (PCR) Blood Type Antibody Screen Antibody Identification Antibody ID Comment Crossmatch 01/18/21 01/18/21 01/18/21 11:44 11:45 11:45 WBC RBC Hgb Hct MCV MCH MCHC RDW Std Deviation RDW Coeff of Rico Plt Count MPV Immature Gran % (Auto) Neut % (Auto) Lymph % (Auto) Hettinger % (Auto) Eos % (Auto) Baso % (Auto) Reticulocyte % (Auto) Cancelled Neut # (Auto) Lymph # (Auto) Hettinger # (Auto) Eos # (Auto) Baso # (Auto) Reticulocyte # Cancelled Immature Gran # (Auto) Platelet Estimate PT INR APTT PTT Ratio Sodium Potassium Chloride Carbon Dioxide Anion Gap BUN Creatinine Est Cr Clr Drug Dosing Est GFR ( Amer) Est GFR (Non-Af Amer) BUN/Creatinine Ratio Glucose POC Glucose Calcium Phosphorus Magnesium Iron TIBC Transferrin Ferritin Total Bilirubin Direct Bilirubin AST ALT Alkaline Phosphatase Troponin I Total Protein Albumin Globulin Albumin/Globulin Ratio Lipase COVID-19 Eval Order Covid19 at [facility] SARS-CoV-2 (PCR) NEGATIVE Blood Type Antibody Screen Antibody Identification Antibody ID Comment Crossmatch 01/18/21 01/18/21 01/18/21 11:49 11:49 16:26 WBC RBC Hgb Hct MCV MCH MCHC RDW Std Deviation RDW Coeff of Rico Plt Count MPV Immature Gran % (Auto) Neut % (Auto) Lymph % (Auto) Hettinger % (Auto) Eos % (Auto) Baso % (Auto) Reticulocyte % (Auto) Neut # (Auto) Lymph # (Auto) Hettinger # (Auto) Eos # (Auto) Baso # (Auto) Reticulocyte # Immature Gran # (Auto) Platelet Estimate PT INR APTT PTT Ratio Sodium Potassium Chloride Carbon Dioxide Anion Gap BUN Creatinine Est Cr Clr Drug Dosing Est GFR ( Amer) Est GFR (Non-Af Amer) BUN/Creatinine Ratio Glucose POC Glucose 95 Calcium Phosphorus Magnesium Iron 64 TIBC 230 L Transferrin 181 L Ferritin 1386.5 H Total Bilirubin Direct Bilirubin AST ALT Alkaline Phosphatase Troponin I Total Protein Albumin Globulin Albumin/Globulin Ratio Lipase COVID-19 Eval Order SARS-CoV-2 (PCR) Blood Type A Positive Antibody Screen POSITIVE A Antibody Identification Anti-Fya Antibody ID Comment Crossmatch See Detail PG Care Time/CCT Total # of Minutes Spent Total Time Spent with Patient: Total time spent is greater than 50% in coordination of care (as documented) at patient's floor/unit and/or counseling patient: Coding Level of Care Code 86877 Inpt Consult Level 5 Diagnoses End stage renal failure on dialysis N18.6; Z99.2 Anemia D64.9 Anemia type: unspecified type Cardiopulmonary arrest I46.9 (1) Anemia Anemia type: unspecified type Qualified Code(s): D64.9 - Anemia, unspecified
--- NOTE | 2021-01-18 16:31 | Cardiology Consultation ---
Date of Consultation January 18, 2021 Assessment & Plan (1) Syncope and collapse: (2) Elevated troponin: (3) Anemia: (4) Chronic diastolic CHF (congestive heart failure): 65-year-old female presents with recurrent loss of consciousness after initiation of dialysis. Episode similar to prior occurrence in November. Possibly related to volume shifts during dialysis. Recent Lexiscan nuclear stress test without evidence of inducible ischemia. AED applied with no shock indicating suggesting the loss of consciousness was not secondary to ventricular tachycardia or ventricular fibrillation. Other considerations include symptomatic bradycardia or pulseless electrical activity. Trend cardiac enzymes x3 sets. Continue to monitor telemetry during hospitalization. Repeat limited resting 2D transthoracic echocardiogram. Consider transfusion during next hemodialysis treatment. History of Present Illness Reason for Consultation: Cardiac arrest Requesting Physician: Anne MCNULTY Attending Physician: Maria Dolores Lee DO History of Present Illness 65-year-old female presented to the emergency department from hemodialysis. Approximately 20 minutes into her dialysis treatment the patient reportedly lost consciousness. CPR was initiated. An AED was applied, however, shock was not indicated. Duration of CPR unknown. Patient recalls resting during dialysis, the next thing she recalls is waking up in the ambulance. Her chest is sore due to chest compressions. Her vital signs are stable. ECG demonstrates sinus rhythm without ischemic changes. Telemetry reveals sinus rhythm in the 70s. No dysrhythmias. Similar presentation noted 12/05/2020. Lexiscan nuclear stress test was performed during that mission to exclude significant obstructive coronary disease. The nuclear perfusion exam was normal. Patient lives [facility] apartment. Denies any exertional shortness of breath or chest discomfort. Her functional capacity is stable. No personal history of coronary disease, congestive heart failure, or rheumatic fever as a child. Normal LV systolic function per recent echocardiogram and nuclear stress test. Lab studies in admission demonstrates significant anemia with a hemoglobin of 6.9. Her x-ray shows right-sided patchy airspace opacities representing viral pneumonia versus pulmonary edema. Allergies Allergy/AdvReac Type Severity Reaction Status Date / Time daptomycin AdvReac sob Verified 12/04/20 15:28 Home Medications Medication Instructions Recorded Confirmed Type cholecalciferol (vitamin D3) 50 4,000 unit PO QAM 07/07/18 01/18/21 History mcg (2,000 unit) capsule (Vitamin D3) coenzyme Q10 100 mg capsule (Co 100 mg PO QAM 11/18/20 01/18/21 History Q-10) furosemide 40 mg tablet 40 mg PO BID 11/18/20 01/18/21 History calcium acetate(phosphat bind) 667 667 mg PO TIDM #90 cap 11/24/20 01/18/21 Rx mg capsule carvedilol 3.125 mg tablet 3.125 mg PO BID #30 tab 11/24/20 01/18/21 Rx hydralazine 50 mg tablet 50 mg PO TID #90 tab 11/24/20 01/18/21 Rx vitamin B complex and vitamin C 1 cap PO QAM #90 cap 11/24/20 01/18/21 Rx no.20-folic acid 1 mg capsule (Renal Caps) multivitamin 1 tab PO QAM 11/27/20 01/18/21 History atorvastatin 40 mg tablet 40 mg PO DAILY 01/18/21 01/18/21 History clopidogrel 75 mg tablet 75 mg PO DAILY 01/18/21 01/18/21 History insulin glargine 100 unit/mL (3 30 unit SUBCUT HS 01/18/21 01/18/21 History mL) subcutaneous pen (Basaglar KwikPen U-100 Insulin) Patient History Medical History Anemia Callus Chronic diastolic CHF (congestive heart failure) Closed fracture of distal end of right fibula and tibia Diabetes mellitus with diabetic polyneuropathy Diabetic foot ulcer Diabetic neuropathy Dyslipidemia End stage renal failure on dialysis Foot osteomyelitis, right History of CVA (cerebrovascular accident) History of depression Hypertension Posterior capsular opacification Type 2 diabetes mellitus Ulcer of right midfoot Vitamin D deficiency Surgical History History of appendectomy Status post right foot surgery Family History Sister Ovarian cancer Brother Hypertension Social History Smoking Status: Never smoker Second Hand Exposure: No; Hx Alcohol Use: No Hx Substance Use: No Preferred Language: Tajik 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: Effective 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 Beliefs That Will Affect Care: None marital status: Current Living Situation: Alone Current Living Situation Comment: [place] currently at rehab but typically lives at home alone current occupational status: retired Feels Safe at Home: Yes Diet Comment: stated low salt, low carb during the past year weight has: increased > 10 lbs Assistive Devices: Oxygen - Continuous Review of Systems Review of Systems: All systems reviewed & are unremarkable except as noted in Subjective Physical Exam Constitutional: well nourished and + ill appearing; no acute distress Respiratory: no respiratory distress, no labored breathing and no retractions Auscultation: + crackles (Right base); no rales, no rhonchi and no wheezes Cardiovascular: Rate/Rhythm: regular rate and regular rhythm Heart Sounds: normal S1 and normal S2; no murmur Vessels: radial pulses present; no JVD and no carotid bruit Extremities: no edema Gastrointestinal (Abdomen): Inspection/Auscultation: abdomen normal to inspection and normal bowel sounds; abdomen not distended Percussion/Palpation: abdomen soft; abdomen nontender, no guarding and abdomen not rigid Neurologic: CN's II-XI intact bilaterally and moves all extremities; no focal motor deficits Motor/Sensory: no tremor Psychiatric: A+Ox3, euthymic affect Results & Data ([facility]) Vital Signs (Past 12 Hours) Vital Signs Temp Pulse Pulse Resp BP BP Pulse Ox 01/18/21 15:00 73 22 190/68 H 98 01/18/21 14:00 71 22 167/112 H 100 01/18/21 13:30 63 13 167/73 H 100 01/18/21 13:00 64 16 174/69 H 100 01/18/21 12:50 69 20 173/69 H 100 01/18/21 12:30 66 20 173/69 H 100 01/18/21 11:48 68 16 177/69 H 97 01/18/21 11:44 97 01/18/21 11:40 67 22 185/65 H 97 01/18/21 11:36 36.5 C 76 20 160/95 H 97 (1) Anemia Anemia type: unspecified type Qualified Code(s): D64.9 - Anemia, unspecified
[2021-01-18] MEDS: INSULIN ASPART 100 UNITS/ML 3 ML PEN SC SCH ×2 (17:03→20:41)
[2021-01-18] MEDS: CALCIUM ACETATE 667 MG CAP/TAB PO SCH (17:03)
[2021-01-18] MEDS: FUROSEMIDE 40 MG TAB PO SCH (17:04)
[2021-01-18] MEDS: hydrALAZINE TAB 50 MG TAB PO SCH (20:40)
[2021-01-18] MEDS: carvediloL 3.125 MG TAB PO SCH (20:41)
[2021-01-18] MEDS ORDERED: INSULIN GLARGINE SOLOSTAR 100 UNITS/ML 3 ML PEN SC SCH (21:00)
[2021-01-18] MEDS: cefTRIAXone SODIUM 2,000 MG in DEXTROSE 5% 50 ML IV SCH (23:15)
[2021-01-18] MEDS: DOXYCYCLINE HYCLATE 100 MG in DEXTROSE 5% 100 ML IV SCH (23:15)
[2021-01-19 06:30] LABS: Hematocrit (blood only) 24.6 % (37-47); Mean Corpuscular Hgb Conc 32.5 g/dL (32-36); Mean Corpuscular Volume 95.3 fL (80-100); RDW Coefficient of Variation 19.4 % (11.5-14.5); RDW Standard Deviation 67.8 fL (36.4-46.3); Red Blood Count 2.58 M/uL (4.2-5.4); White Blood Count 8.82 K/uL (4.8-10.8)
[2021-01-19 06:31] LABS: Mean Platelet Volume 9.3 fL (7.4-10.4); Platelet Count 95 K/uL (130-400)
[2021-01-19 07:22] LABS: BUN Creatinine Ratio 7.6 (10-20); Calcium 8.2 mg/dl (8.5-10.1); Creatinine Clr Calc Pharmacy 9.8 ml/min; Est GFR (African American) 8.4 ml/min; Est GFR (Non-African American) 7.2 ml/min; Potassium 4.4 mmol/L (3.5-5.1)
[2021-01-19] MEDS: ATORVASTATIN 40 MG TAB PO SCH (07:38)
[2021-01-19] MEDS: NEPHROCAPS PO SCH (07:38)
[2021-01-19] MEDS: CHOLECALCIFEROL 1,000 UNITS 25 MCG TAB PO SCH (07:39)
[2021-01-19] MEDS: CALCIUM ACETATE 667 MG CAP/TAB PO SCH ×3 (07:39→17:21)
[2021-01-19] MEDS: FUROSEMIDE 40 MG TAB PO SCH ×2 (07:40→17:21)
[2021-01-19] MEDS: carvediloL 3.125 MG TAB PO SCH ×2 (07:40→21:04)
[2021-01-19] MEDS: CLOPIDOGREL BISULFATE 75 MG TAB PO SCH (07:41)
[2021-01-19] MEDS: hydrALAZINE TAB 50 MG TAB PO SCH ×3 (07:42→21:04)
--- NOTE | 2021-01-19 08:51 | Ultrasound Report ---
ABDOMINAL ULTRASOUND, RIGHT UPPER QUADRANT HISTORY: GB thickening on CT, syncope. COMPARISON: Abdomen and pelvis CT 01/18/2021. FINDINGS: Pancreas: The pancreatic head and tail are obscured by overlying bowel gas. The remaining portions of the pancreas are within normal limits. Liver: Unremarkable. Gallbladder: Diffuse mild gallbladder wall thickening is again noted with small amount of pericholecy stic fluid adjacent to the hepatic service. No gallstones identified. Negative sonographic Collins sig n. CBD: 5 mm. Right kidney: No hydronephrosis. IMPRESSION: 1. No change in the diffuse gallbladder wall thickening with a small amount of pericholecystic fluid adjacent to the hepatic surface. There are no gallstones and a negative sonographic Collins sign. Ther efore, this is likely due to volume overload rather than a cholecystitis. 2. Normal caliber common bile duct. ACT 112: Negative or not required by law. Electronically signed by: Duane Baeza M.D. 01/19/2021 8:50 AM
--- NOTE | 2021-01-19 09:09 | Cardiology Progress Note ---
Date of Service January 19, 2021 Assessment & Plan (1) Syncope and collapse: (2) Elevated troponin: (3) Anemia: (4) Chronic diastolic CHF (congestive heart failure): Plan: 65-year-old female presents with recurrent loss of consciousness after initiation of dialysis. Episode similar to prior occurrence in November. Possibly related to volume shifts during dialysis. Recent Lexiscan nuclear stress test without evidence of inducible ischemia. AED applied with no shock indicating suggesting the loss of consciousness was not secondary to ventricular tachycardia or ventricular fibrillation. EKG and echocardiogram did not suggest an acute ischemic event as cause for hemodynamic collapse. Exam does not reflect profound volume overload with chest x-ray suggestive of possible aspiration. Recommendations: Check orthostatics today. Follow hemoglobins and transfuse with dialysis. Would hold hydralazine day of dialysis with notable labile blood pressures, resumption of dialysis tomorrow Admission and Anticipated Discharge Date Admission Date: January 18, 2021 Subjective Patient was seen and examined, chart, medications, telemetry reviewed. Patient notes "washed out", chest sore, did not sleep secondary to restless leg complaints last night. No arrhythmias on telemetry. No bleeding issues though patient transfused. Hemoglobin improved this morning after 1 unit transfusion Review of Systems Review of Systems: All systems reviewed & are unremarkable except as noted in Subjective Physical Exam Constitutional: + ill appearing; no acute distress Eyes: PERRL, conjunctivae normal, anicteric sclerae ENMT: external ear and nose normal, oropharynx normal Neck: trachea midline, no thyromegaly Respiratory: Auscultation: + diminished lung sounds Cardiovascular: Rate/Rhythm: regular rate and regular rhythm Heart Sounds: normal S1 and normal S2; no murmur Chest (Breasts): Additional Comments: Chest tender to palpation Gastrointestinal (Abdomen): normal bowel sounds, soft, nontender, no hepatosplenomegaly Musculoskeletal: no cyanosis or clubbing, extremities motor strength 5/5 Head/Neck/Chest: + localized rib tenderness Skin: no rashes, warm and dry Psychiatric: Orientation: oriented x 3 Results & Data ([facility]) Vital Signs (Past 12 Hours) Vital Signs Temp Pulse Resp BP Pulse Ox 01/19/21 08:27 36.5 C 99 H 18 115/62 95 01/19/21 04:14 36.7 C 65 18 175/82 H 95 01/18/21 23:47 36.9 C 72 18 166/72 H 96 Laboratory Results Laboratory Results - last 24 hr 01/18/21 01/18/21 01/18/21 11:44 11:44 11:44 WBC 8.37 RBC 2.20 L Hgb 6.9 L* Hct 21.7 L MCV 98.6 MCH 31.4 MCHC 31.8 L RDW Std Deviation 65.0 H RDW Coeff of Rico 18.2 H Plt Count 75 L MPV 9.2 Immature Gran % (Auto) 1.2 Neut % (Auto) 73.6 Lymph % (Auto) 13.6 Mitchell % (Auto) 8.1 Eos % (Auto) 3.1 Baso % (Auto) 0.4 Reticulocyte % (Auto) 4.2 H Neut # (Auto) 6.16 Lymph # (Auto) 1.14 L Mitchell # (Auto) 0.68 H Eos # (Auto) 0.26 Baso # (Auto) 0.03 Reticulocyte # 0.09 Immature Gran # (Auto) 0.10 H Platelet Estimate Decreased L Haptoglobin PT 11.6 INR 1.2 H APTT 25.7 PTT Ratio 1.0 Sodium 136 Potassium 4.6 Chloride 106 Carbon Dioxide 23 Anion Gap 7.0 BUN 37 H Creatinine 4.92 H* Est Cr Clr Drug Dosing 11.8 Est GFR ( Amer) 10.0 Est GFR (Non-Af Amer) 8.6 BUN/Creatinine Ratio 7.4 L Glucose 118 H POC Glucose Calcium 8.1 L Phosphorus 4.2 Magnesium 2.3 Iron TIBC Transferrin Transferrin % Sat Ferritin Total Bilirubin 0.5 Direct Bilirubin 0.2 AST 53 H ALT 48 Alkaline Phosphatase 77 Troponin I 0.112 H* NT-Pro-B Natriuret Pep Total Protein 6.6 Albumin 3.5 Globulin 3.1 Albumin/Globulin Ratio 1.1 Lipase 112 Procalcitonin Nasal Screen MRSA (PCR) Heparin Dep Plt Ab React Heparin Dep Plt Ab OD COVID-19 Eval Order SARS-CoV-2 (PCR) Blood Type Antibody Screen Antibody Identification Antibody ID Comment Crossmatch 01/18/21 01/18/21 01/18/21 11:44 11:45 11:45 WBC RBC Hgb Hct MCV MCH MCHC RDW Std Deviation RDW Coeff of Rico Plt Count MPV Immature Gran % (Auto) Neut % (Auto) Lymph % (Auto) Mitchell % (Auto) Eos % (Auto) Baso % (Auto) Reticulocyte % (Auto) Cancelled Neut # (Auto) Lymph # (Auto) Mitchell # (Auto) Eos # (Auto) Baso # (Auto) Reticulocyte # Cancelled Immature Gran # (Auto) Platelet Estimate Haptoglobin PT INR APTT PTT Ratio Sodium Potassium Chloride Carbon Dioxide Anion Gap BUN Creatinine Est Cr Clr Drug Dosing Est GFR ( Amer) Est GFR (Non-Af Amer) BUN/Creatinine Ratio Glucose POC Glucose Calcium Phosphorus Magnesium Iron TIBC Transferrin Transferrin % Sat Ferritin Total Bilirubin Direct Bilirubin AST ALT Alkaline Phosphatase Troponin I NT-Pro-B Natriuret Pep Total Protein Albumin Globulin Albumin/Globulin Ratio Lipase Procalcitonin Nasal Screen MRSA (PCR) Heparin Dep Plt Ab React Heparin Dep Plt Ab OD COVID-19 Eval Order Covid19 at [facility] SARS-CoV-2 (PCR) NEGATIVE Blood Type Antibody Screen Antibody Identification Antibody ID Comment Crossmatch 01/18/21 01/18/21 01/18/21 11:49 11:49 16:26 WBC RBC Hgb Hct MCV MCH MCHC RDW Std Deviation RDW Coeff of Rico Plt Count MPV Immature Gran % (Auto) Neut % (Auto) Lymph % (Auto) Mitchell % (Auto) Eos % (Auto) Baso % (Auto) Reticulocyte % (Auto) Neut # (Auto) Lymph # (Auto) Mitchell # (Auto) Eos # (Auto) Baso # (Auto) Reticulocyte # Immature Gran # (Auto) Platelet Estimate Haptoglobin PT INR APTT PTT Ratio Sodium Potassium Chloride Carbon Dioxide Anion Gap BUN Creatinine Est Cr Clr Drug Dosing Est GFR ( Amer) Est GFR (Non-Af Amer) BUN/Creatinine Ratio Glucose POC Glucose 95 Calcium Phosphorus Magnesium Iron 64 TIBC 230 L Transferrin 181 L Transferrin % Sat Ferritin 1386.5 H Total Bilirubin Direct Bilirubin AST ALT Alkaline Phosphatase Troponin I NT-Pro-B Natriuret Pep Total Protein Albumin Globulin Albumin/Globulin Ratio Lipase Procalcitonin Nasal Screen MRSA (PCR) Heparin Dep Plt Ab React Heparin Dep Plt Ab OD COVID-19 Eval Order SARS-CoV-2 (PCR) Blood Type A Positive Antibody Screen POSITIVE A Antibody Identification Anti-Fya Antibody ID Comment Crossmatch See Detail 01/18/21 01/18/21 01/18/21 20:36 21:14 21:14 WBC RBC Hgb Hct MCV MCH MCHC RDW Std Deviation RDW Coeff of Rico Plt Count MPV Immature Gran % (Auto) Neut % (Auto) Lymph % (Auto) Mitchell % (Auto) Eos % (Auto) Baso % (Auto) Reticulocyte % (Auto) Neut # (Auto) Lymph # (Auto) Mitchell # (Auto) Eos # (Auto) Baso # (Auto) Reticulocyte # Immature Gran # (Auto) Platelet Estimate Haptoglobin Pending PT INR APTT PTT Ratio Sodium Potassium Chloride Carbon Dioxide Anion Gap BUN Creatinine Est Cr Clr Drug Dosing Est GFR ( Amer) Est GFR (Non-Af Amer) BUN/Creatinine Ratio Glucose POC Glucose 112 H Calcium Phosphorus Magnesium Iron TIBC Transferrin Transferrin % Sat Ferritin Total Bilirubin Direct Bilirubin AST ALT Alkaline Phosphatase Troponin I 0.326 H* NT-Pro-B Natriuret Pep Total Protein Albumin Globulin Albumin/Globulin Ratio Lipase Procalcitonin Nasal Screen MRSA (PCR) Heparin Dep Plt Ab React Pending Heparin Dep Plt Ab OD Pending COVID-19 Eval Order SARS-CoV-2 (PCR) Blood Type Antibody Screen Antibody Identification Antibody ID Comment Crossmatch 01/18/21 01/19/21 01/19/21 Unknown 00:04 05:55 WBC 8.82 RBC 2.58 L Hgb 8.0 L Hct 24.6 L MCV 95.3 MCH 31.0 MCHC 32.5 RDW Std Deviation 67.8 H RDW Coeff of Rico 19.4 H Plt Count 95 L MPV 9.3 Immature Gran % (Auto) Neut % (Auto) Lymph % (Auto) Mitchell % (Auto) Eos % (Auto) Baso % (Auto) Reticulocyte % (Auto) Neut # (Auto) Lymph # (Auto) Mitchell # (Auto) Eos # (Auto) Baso # (Auto) Reticulocyte # Immature Gran # (Auto) Platelet Estimate Haptoglobin PT INR APTT PTT Ratio Sodium Potassium Chloride Carbon Dioxide Anion Gap BUN Creatinine Est Cr Clr Drug Dosing Est GFR ( Amer) Est GFR (Non-Af Amer) BUN/Creatinine Ratio Glucose POC Glucose Calcium Phosphorus Magnesium Iron TIBC Transferrin Transferrin % Sat Ferritin Total Bilirubin Direct Bilirubin AST ALT Alkaline Phosphatase Troponin I 0.253 H* NT-Pro-B Natriuret Pep Total Protein Albumin Globulin Albumin/Globulin Ratio Lipase Procalcitonin Nasal Screen MRSA (PCR) Negative Heparin Dep Plt Ab React Heparin Dep Plt Ab OD COVID-19 Eval Order SARS-CoV-2 (PCR) Blood Type Antibody Screen Antibody Identification Antibody ID Comment Crossmatch 01/19/21 01/19/21 01/19/21 05:55 05:55 07:43 WBC RBC Hgb Hct MCV MCH MCHC RDW Std Deviation RDW Coeff of Rico Plt Count MPV Immature Gran % (Auto) Neut % (Auto) Lymph % (Auto) Mitchell % (Auto) Eos % (Auto) Baso % (Auto) Reticulocyte % (Auto) Neut # (Auto) Lymph # (Auto) Mitchell # (Auto) Eos # (Auto) Baso # (Auto) Reticulocyte # Immature Gran # (Auto) Platelet Estimate Haptoglobin PT INR APTT PTT Ratio Sodium 136 Potassium 4.4 Chloride 107 Carbon Dioxide 23 Anion Gap 6.0 BUN 43 H Creatinine 5.67 H* D Est Cr Clr Drug Dosing 9.8 Est GFR ( Amer) 8.4 Est GFR (Non-Af Amer) 7.2 BUN/Creatinine Ratio 7.6 L Glucose 39 L* POC Glucose 80 Calcium 8.2 L Phosphorus Magnesium Iron 43 TIBC Transferrin 175 L Transferrin % Sat 18 Ferritin Total Bilirubin Direct Bilirubin AST ALT Alkaline Phosphatase Troponin I NT-Pro-B Natriuret Pep 92187 H Total Protein Albumin Globulin Albumin/Globulin Ratio Lipase Procalcitonin 0.25 Nasal Screen MRSA (PCR) Heparin Dep Plt Ab React Heparin Dep Plt Ab OD COVID-19 Eval Order SARS-CoV-2 (PCR) Blood Type Antibody Screen Antibody Identification Antibody ID Comment Crossmatch Diagnostic Findings Echocardiogram preliminary review this morning mild dyssynergy of the septum with preserved ejection fraction 55%, mild mitral insufficiency, no pericardial effusion CT scan without aortic pathology Lexiscan stress nuclear study normal November 2020 (1) Anemia Anemia type: unspecified type Qualified Code(s): D64.9 - Anemia, unspecified
[2021-01-19] MEDS: INSULIN ASPART 100 UNITS/ML 3 ML PEN SC SCH ×4 (09:43→21:03)
--- NOTE | 2021-01-19 10:27 | Nephrology Progress Note ---
Date of Service January 19, 2021 Assessment & Plan (1) End stage renal failure on dialysis: Plan: * Volume status and electrolyte balance remain acceptable at this time * Case discussed w/ Cardiology this am - recurrent PEA arrest as outpatient, no arrhythmia since admission. Suspect hemodynamically medicated. Recommended holding Hydralazine prior to HD * Plan HD tomorrow. Order placed to hold Hydralazine on mornings of HD (2) Anemia: Plan: * Progressive drop in Hgb and platelet # * Received 1 U PRBC 01/18/21 * On very low dose heparin with HD * Receives RANDY w/ HD * Elevated ferritin * Recently started on Plavix * FOBT - pending * 831 Iron sat 18%, ferritin 1386. Hold IV iron due to elevated ferritin * haptoglobin and heparin induced antibody testing - pending * Recommend transfusion to maintain Hgb > 8.0 (3) Cardiopulmonary arrest: Plan: * Recurrent episodes occurring ~ 20 min into HD * No evidence of anaphylaxis to suggest dialyzer reaction * No other patients at outpatient HD unit effected * Troponin elevated due to recent arrest, trending down * No arrhythmia overnight on telemetry Admission and Anticipated Discharge Date Admission Date: January 18, 2021 Subjective Ms. Riley was evaluated in her hospital room this morning. No arrhythmia by telemetry overnight. Patient denies angina, palpitations, dyspnea. Primary concerns are sore chest from chest compressions and poor sleep Review of Systems Constitutional: + weakness; no fever Eyes: no problem reported Ear, Nose, Mouth, Throat: no problem reported Respiratory: no cough and no dyspnea Cardiovascular: no palpitations Gastrointestinal: no abdominal pain, no nausea, no vomiting and no diarrhea/loose stools Genitourinary: no dysuria and no hematuria Musculoskeletal: no back pain Integumentary: no rash Neurologic: no confusion Physical Exam Constitutional: not in distress Eyes: PERRL ENMT: external ear and nose normal, oropharynx normal Neck: trachea midline, no thyromegaly R IJ THC with clean, dry dressing in place Respiratory: normal respiratory effort, lungs clear to auscultation Cardiovascular: RRR, no murmur, no edema Gastrointestinal (Abdomen): normal bowel sounds, soft, nontender, no hepatosplenomegaly Musculoskeletal: Extremities: no cyanosis Results & Data ([facility]) Vital Signs (Past 12 Hours) Vital Signs Temp Pulse Pulse Resp BP Pulse Ox 01/19/21 09:56 64 01/19/21 08:27 36.5 C 99 H 18 115/62 95 01/19/21 04:14 36.7 C 65 18 175/82 H 95 01/18/21 23:47 36.9 C 72 18 166/72 H 96 Laboratory Results Laboratory Tests 01/18/21 01/18/21 01/19/21 11:49 21:14 00:04 WBC Hgb Hct Plt Count Sodium Potassium Chloride Carbon Dioxide BUN Creatinine Glucose Transferrin % Sat Ferritin 1386.5 H Troponin I 0.326 H* 0.253 H* NT-Pro-B Natriuret Pep 01/19/21 01/19/21 05:55 05:55 WBC 8.82 Hgb 8.0 L Hct 24.6 L Plt Count 95 L Sodium 136 Potassium 4.4 Chloride 107 Carbon Dioxide 23 BUN 43 H Creatinine 5.67 H* D Glucose 39 L* Transferrin % Sat 18 Ferritin Troponin I NT-Pro-B Natriuret Pep 44046 H PG Care Time/CCT Total # of Minutes Spent Total Time Spent with Patient: Total time spent is greater than 50% in coordination of care (as documented) at patient's floor/unit and/or counseling patient: Coding Level of Care Code 34555 Subseq Hosp Care Lvl 3 Diagnoses End stage renal failure on dialysis N18.6; Z99.2 Anemia D64.9 Anemia type: unspecified type Cardiopulmonary arrest I46.9 (1) Anemia Anemia type: unspecified type Qualified Code(s): D64.9 - Anemia, unspecified
[2021-01-19] MEDS: DOXYCYCLINE HYCLATE 100 MG in DEXTROSE 5% 100 ML IV SCH ×2 (11:00→22:30)
--- NOTE | 2021-01-19 16:07 | Hospitalist Progress Note ---
Date of Service January 19, 2021 Assessment & Plan (1) Syncope and collapse: Plan: -Admit to telemetry -Patient presenting from dialysis after an episode of unresponsiveness/cyanosis -CPR initiated with chest compressions only, no defibrillation medications given -History of similar episode x 2 in November 2020 - felt to be secondary to hypotension during dialysis -Patient currently alert and oriented, VSS -sinus rhythm on telemetry -Troponin trended and no evidence of ACS-mildly elevated troponin likely related to renal disease and recent chest compressions -orthostatics ordered, patient is asymptomatic and did well with therapy -again, she reports having stayed up all night prior to HD session waiting on transportation and was extremely fatigued during HD -also considered that fluid shifts and transient hypotension may have contributed to her unresponsive episode. -per Cardiology recommendation will monitor during next HD session set for am. (2) Hypoxia: Plan: edema vs ?CAP? Empirically started ceftriaxone and doxycycline. No S/Sx of pneumonia and procalcitonin normal. Favoring edema. Continues on diuretics and HD with UF for fluid management. Hypoxia appears to be improving. Cont current management. (3) End stage renal failure on dialysis: Plan: -MWF schedule -Nephrology consult (patient follows with [facility]) -Continue routine renal medications (4) Anemia due to chronic kidney disease: Plan: -Hgb 6.9 -No signs of bleeding -received one unit of blood overnight to 01/12.6 -cont to monitor, anemia workup pending. (5) Chronic diastolic CHF (congestive heart failure): Plan: -Volume managed with furosemide and dialysis, euvolemic to hypervolemic. No CHF symptoms or shortness of breath at this time. BNP notably elevated on labwork. (6) Hypertension: Plan: BP on the higher side today, cont hydralazine and coreg with additional parenteral med as needed -Continue home doses of hydralazine and carvedilol (7) Thrombocytopenia: Plan: improved from 75K to 95K, appears to be a secondary process but uncertain etiology, new from her normal baseline, notably started plavix a few months ago as secondary stroke prophylaxis. HIT panel pending. Cont to monitor. (8) History of CVA (cerebrovascular accident): Plan: -Continue Plavix and statin (9) Type 2 diabetes mellitus: Plan: -Hgb A1c 7.1 10/2020 -Lantus and NovoLog per protocol while hospitalize -hypoglycemia noted on bloodwork, repeat check was within normal range -with cover carbs and give correction factor with novolog, however, glargine held at this time. (10) DVT prophylaxis: Plan: -SCDs due to thrombocytopenia Full COde Dispo-to home when medically stable DO Kwaku Guerra Hospitalist Admission and Anticipated Discharge Date Admission Date: January 19, 2021 Subjective 65 yo F sent to the hospital after period of presumed cardiac arrest at dialysis. 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 she is less fatigued today with some chest soreness "from the compressions" when she moves around she reported to me eating foods that are consistent with a plant based diet at home denies any other SOB, chest pain, cough, fever or other symptoms denies any weight gain or swelling that she noted since discharge from [facility] two weeks ago, however, she reports not checking because her scale is broken Review of Systems Review of Systems: At least ten systems were reviewed and negative except as indicated in HPI above. Physical Exam Physical Exam: CONSTITUTIONAL: WNWD, vitals as above, chronically ill- appearing but no acute distress EYES: normal conjunctivae, no scleral icterus ENT: external ear and nose normal, MMM RESPIRATORY: clear to auscultation bilaterally, no crackles, rales or wheezes, normal respiratory effort CARDIOVASCULAR: regular rate and rhythm, S1 and 2 heard without murmurs, gallops or rubs, no JVD, no peripheral edema CHEST: inspection of chest was normal with port accessed in right anterior chest GASTROINTESTINAL: soft, nontender, nondistended MUSCULOSKELETAL: strength 5/5 throughout, head is normocephalic and atraumatic SKIN: warm and dry NEUROLOGIC: No facial palsy, no dysarthria. CN 2-12 grossly intact, no sensory deficit, normal cognition, normal speech, no tremor, no gross focal deficits. PSYCHIATRIC: alert cooperative and oriented to person, place and time. Results & Data Results & Data ([facility]) Vital Signs (Past 12 Hours) Vital Signs Temp Pulse Pulse Resp BP Pulse Ox 01/19/21 12:09 36.8 C 62 16 152/64 H 94 01/19/21 11:13 96 01/19/21 09:56 64 01/19/21 08:27 36.5 C 99 H 18 115/62 95 01/19/21 04:14 36.7 C 65 18 175/82 H 95 Laboratory Results Short CBC 01/19/21 Range/Units 05:55 WBC 8.82 (4.8-10.8) K/uL Hgb 8.0 L (12.0-16.0) g/dL Hct 24.6 L (37-47) % Plt Count 95 L (130-400) K/uL BMP 01/19/21 05:55 Sodium 136 Potassium 4.4 Chloride 107 Carbon Dioxide 23 BUN 43 H Creatinine 5.67 H* D Glucose 39 L* Calcium 8.2 L Cardiac Enzymes 01/18/21 01/19/21 Range/Units 21:14 00:04 Troponin I 0.326 H* 0.253 H* (0-0.045) ng/ml Medications Administered Current Inpatient Medications Acetaminophen (Acetaminophen 325 Mg Tab) 650 mg PO Q4H PRN PRN Reason: Pain or Fever Stop: 02/17/21 15:52 Atorvastatin Calcium (Atorvastatin 40 Mg Tab) 40 mg PO DAILY JOSE FRANCISCO Stop: 02/18/21 08:59 Last Admin: 01/19/21 07:38 Dose: 40 mg Documented by: Calcium Acetate (Calcium Acetate 667 Mg Cap/Tab) 667 mg PO TIDM JOSE FRANCISCO Stop: 02/17/21 16:59 Last Admin: 01/19/21 12:16 Dose: 667 mg Documented by: Carvedilol (Carvedilol 3.125 Mg Tab) 3.125 mg PO BID JOSE FRANCISCO Stop: 02/17/21 20:59 Last Admin: 01/19/21 07:40 Dose: 3.125 mg Documented by: Clopidogrel Bisulfate (Clopidogrel Bisulfate 75 Mg Tab) 75 mg PO DAILY JOSE FRANCISCO Stop: 02/18/21 08:59 Last Admin: 01/19/21 07:41 Dose: 75 mg Documented by: Dextrose (Dextrose 50% 50 Ml Syringe) 25 - 50 ml IV UD PRN; Protocol PRN Reason: Hypoglycemia Protocol Stop: 02/17/21 15:52 Furosemide (Furosemide 40 Mg Tab) 40 mg PO [id number] JOSE FRANCISCO Stop: 02/17/21 16:59 Last Admin: 01/19/21 07:40 Dose: 40 mg Documented by: Glucagon (Glucagon For Inj 1 Mg Vial) 1 mg SQ UD PRN; Protocol PRN Reason: Hypoglycemia Protocol Stop: 02/17/21 15:52 Glucose (Glucose 10 Tabs/Tube) 4 - 8 tabs PO UD PRN; Protocol PRN Reason: Hypoglycemia Protocol Stop: 02/17/21 15:52 Glucose (Glucose 40% Gel 15 Gm Tube) 15 - 30 gm PO UD PRN; Protocol PRN Reason: Hypoglycemia Protocol Stop: 02/17/21 15:52 Hydralazine HCl (Hydralazine Tab 50 Mg Tab) 50 mg PO TID JOSE FRANCISCO Stop: 02/17/21 20:59 Last Admin: 01/19/21 14:34 Dose: 50 mg Documented by: Ceftriaxone Sodium 2,000 mg/ (Dextrose) 70 mls @ 140 mls/hr IV Q24H [facility]; Protocol Stop: 01/25/21 23:14 Last Infusion: 01/18/21 23:45 Dose: Infused Documented by: Doxycycline Hyclate 100 mg/ (Dextrose) 110 mls @ 50 mls/hr IV Q12H [facility] Stop: 01/25/21 23:14 Last Infusion: 01/19/21 13:12 Dose: Infused Documented by: Insulin Aspart (Insulin Aspart 100 Units/Ml 3 Ml Pen) 0 units SC ACHS JOSE FRANCISCO Stop: 02/17/21 16:29 Last Admin: 01/19/21 12:16 Dose: Not Given Documented by: Miscellaneous (Carbohydrates For Hypoglycemia ) 15 - 30 gm PO UD PRN PRN Reason: Hypoglycemia Protocol Stop: 02/17/21 15:52 Vitamin B Complex/Folic Acid (Nephrocaps) 1 cap PO QAM [facility] Stop: 02/18/21 08:59 Last Admin: 01/19/21 07:38 Dose: 1 cap Documented by: Vitamin D (Cholecalciferol 1,000 Units 25 Mcg Tab) 4,000 units PO QAM [facility] Stop: 02/18/21 08:59 Last Admin: 01/19/21 07:39 Dose: 4,000 units Documented by: (1) Hypertension Hypertension type: unspecified Qualified Code(s): I10 - Essential (primary) hypertension
[2021-01-19] MEDS: cefTRIAXone SODIUM 2,000 MG in DEXTROSE 5% 50 ML IV SCH (22:25)
[2021-01-19] MEDS ORDERED: hydrALAZINE TAB 50 MG TAB PO STA (23:47)
[2021-01-20 07:07] LABS: Hematocrit (blood only) 25.1 % (37-47); Hemoglobin 8.2 g/dL (12.0-16.0); Mean Corpuscular Hemoglobin 30.9 pg (25-34); Mean Corpuscular Hgb Conc 32.7 g/dL (32-36); Mean Corpuscular Volume 94.7 fL (80-100); Mean Platelet Volume 8.7 fL (7.4-10.4); Platelet Count 127 K/uL (130-400); Red Blood Count 2.65 M/uL (4.2-5.4); White Blood Count 8.73 K/uL (4.8-10.8)
[2021-01-20 08:00] LABS: BUN Creatinine Ratio 8.3 (10-20); Calcium 8.9 mg/dl (8.5-10.1); Creatinine Clr Calc Pharmacy 8.5 ml/min; Est GFR (African American) 7.2 ml/min; Est GFR (Non-African American) 6.2 ml/min; Potassium 4.4 mmol/L (3.5-5.1)
[2021-01-20] MEDS: NEPHROCAPS PO SCH (09:22)
[2021-01-20] MEDS: CALCIUM ACETATE 667 MG CAP/TAB PO SCH ×3 (09:22→18:15)
[2021-01-20] MEDS: CHOLECALCIFEROL 1,000 UNITS 25 MCG TAB PO SCH (09:22)
[2021-01-20] MEDS: ATORVASTATIN 40 MG TAB PO SCH (09:22)
[2021-01-20] MEDS: CLOPIDOGREL BISULFATE 75 MG TAB PO SCH (09:22)
[2021-01-20] MEDS: FUROSEMIDE 40 MG TAB PO SCH ×2 (09:23→18:15)
[2021-01-20] MEDS: carvediloL 3.125 MG TAB PO SCH (09:23)
[2021-01-20] MEDS: INSULIN ASPART 100 UNITS/ML 3 ML PEN SC SCH ×4 (09:24→20:26)
--- NOTE | 2021-01-20 09:26 | Nephrology Progress Note ---
Date of Service January 20, 2021 Assessment & Plan (1) End stage renal failure on dialysis: Plan: * Outpatient HD orders: MWF [facility], 3.5 hrs, F-180NR, 3K, EDW 77kg * Volume status and electrolyte balance remain acceptable at this time * Will provide HD today. I have asked bell staff to move patient to a private room this morning to allow dialysis to be performed in the PCU while monitored. Orders were place in EMR and HD RN notified (2) Anemia: Plan: * Progressive drop in Hgb and platelet # * Received 1 U PRBC 01/18/21 * On very low dose heparin with HD * Receives RANDY w/ HD * Elevated ferritin * Recently started on Plavix * FOBT 01/18 negative x1 * 831 Iron sat 18%, ferritin 1386. Hold IV iron due to elevated ferritin * haptoglobin and heparin induced antibody testing - pending * Recommend transfusion to maintain Hgb > 8.0 (3) Cardiopulmonary arrest: Plan: * Recurrent episodes occurring ~ 20 min into HD * No evidence of anaphylaxis to suggest dialyzer reaction * No other patients at outpatient HD unit effected * Troponin elevated due to recent arrest, trending down * No arrhythmia overnight on telemetry * Cardiology recommended holding Hydralazine prior to treatments - possible relative hypotension at start of treatment * Question whether patient is anemic (Hgb 7 at time of admission), 500 cc removed by dialyzer circuit and develops myocardial stunning. Will transfuse one unit PRBC going on HD today Admission and Anticipated Discharge Date Admission Date: January 19, 2021 Subjective Ms. Riley was evaluated in her hospital room this morning. She slept poorly due to semi-private room. She currently denies fever, angina, palpitations or dyspnea. Telemetry reviewed - NSR overnight Review of Systems Constitutional: + weakness; no fever Eyes: no problem reported Ear, Nose, Mouth, Throat: no problem reported Respiratory: no cough and no dyspnea Cardiovascular: no palpitations Gastrointestinal: no abdominal pain, no nausea, no vomiting and no diarrhea/loose stools Genitourinary: no dysuria and no hematuria Musculoskeletal: no back pain Integumentary: no rash Neurologic: no confusion Physical Exam Constitutional: not in distress Eyes: PERRL ENMT: external ear and nose normal, oropharynx normal Neck: trachea midline, no thyromegaly Respiratory: normal respiratory effort, lungs clear to auscultation Cardiovascular: RRR, no murmur, no edema Gastrointestinal (Abdomen): normal bowel sounds, soft, nontender, no hepatosplenomegaly Musculoskeletal: Extremities: no cyanosis Results & Data ([facility]) Vital Signs (Past 12 Hours) Vital Signs Temp Pulse Pulse Resp BP Pulse Ox 01/20/21 07:24 36.5 C 01/20/21 03:45 36.7 C 71 18 165/75 H 98 01/20/21 00:43 78 01/19/21 23:36 36.5 C 103 H 18 190/78 H 93 Laboratory Results Laboratory Tests 01/18/21 01/18/21 01/20/21 11:45 21:14 06:35 WBC 8.73 Hgb 8.2 L Hct 25.1 L Plt Count 127 L Haptoglobin Pending Sodium Potassium Chloride Carbon Dioxide BUN Creatinine Glucose Heparin Dep Plt Ab React Pending SARS-CoV-2 (PCR) NEGATIVE 01/20/21 06:35 WBC Hgb Hct Plt Count Haptoglobin Sodium 136 Potassium 4.4 Chloride 106 Carbon Dioxide 23 BUN 53 H Creatinine 6.43 H* D Glucose 113 H Heparin Dep Plt Ab React SARS-CoV-2 (PCR) Laboratory Tests 01/18/21 01/18/21 01/19/21 11:44 21:14 00:04 Troponin I 0.112 H* 0.326 H* 0.253 H* PG Care Time/CCT Total # of Minutes Spent Total Time Spent with Patient: Total time spent is greater than 50% in coordination of care (as documented) at patient's floor/unit and/or counseling patient: Coding Level of Care Code 35508 Subseq Hosp Care Lvl 3 Diagnoses End stage renal failure on dialysis N18.6; Z99.2 Anemia D64.9 Anemia type: unspecified type Cardiopulmonary arrest I46.9 (1) Anemia Anemia type: unspecified type Qualified Code(s): D64.9 - Anemia, unspecified
[2021-01-20] MEDS ORDERED: SODIUM CHLORIDE 0.9% 250 ML IV PRN ×2 (09:36→12:17)
--- NOTE | 2021-01-20 09:59 | Cardiology Progress Note ---
Date of Service January 20, 2021 Assessment & Plan (1) Syncope and collapse: (2) Elevated troponin: (3) Anemia: (4) Chronic diastolic CHF (congestive heart failure): Plan: 65-year-old female presents with recurrent loss of consciousness after initiation of dialysis. Episode similar to prior occurrence in November. Possibly related to volume shifts during dialysis. Recent Lexiscan nuclear stress test without evidence of inducible ischemia. AED applied with no shock indicating suggesting the loss of consciousness was not secondary to ventricular tachycardia or ventricular fibrillation. EKG and echocardiogram did not suggest an acute ischemic event as cause for hemodynamic collapse. Telemetry since admission without arrhythmias. Recommendations: Dialysis today in PCU on telemetry. Hydralazine held this morning by my request. Admission and Anticipated Discharge Date Admission Date: January 19, 2021 Subjective Patient was seen and examined, chart, medications, telemetry reviewed. Patient appears slightly brighter, less disheveled this morning. Notes did not sleep well due to restless legs and noise. No chest pains or shortness of breath. No dizziness or lightheadedness. No fevers or chills. Review of Systems Review of Systems: All systems reviewed & are unremarkable except as noted in Subjective Physical Exam Constitutional: no acute distress Eyes: PERRL, conjunctivae normal, anicteric sclerae ENMT: external ear and nose normal, oropharynx normal Neck: trachea midline, no thyromegaly Respiratory: normal respiratory effort, lungs clear to auscultation Cardiovascular: Rate/Rhythm: regular rate and regular rhythm Heart Sounds: normal S1 and normal S2; no murmur Extremities: + edema (1+) Gastrointestinal (Abdomen): normal bowel sounds, soft, nontender, no hepatosplenomegaly Musculoskeletal: no cyanosis or clubbing, extremities motor strength 5/5 Head/Neck/Chest: + localized rib tenderness Skin: no rashes, warm and dry Psychiatric: Orientation: oriented x 3 Results & Data ([facility]) Vital Signs (Past 12 Hours) Vital Signs Temp Pulse Pulse Resp BP Pulse Ox 01/20/21 07:24 36.5 C 01/20/21 03:45 36.7 C 71 18 165/75 H 98 01/20/21 00:43 78 01/19/21 23:36 36.5 C 103 H 18 190/78 H 93 Laboratory Results Laboratory Results - last 24 hr 01/19/21 01/19/2121 11:17 16:13 20:16 WBC RBC Hgb Hct MCV MCH MCHC RDW Std Deviation RDW Coeff of Rico Plt Count MPV Sodium Potassium Chloride Carbon Dioxide Anion Gap BUN Creatinine Est Cr Clr Drug Dosing Est GFR ( Amer) Est GFR (Non-Af Amer) BUN/Creatinine Ratio Glucose POC Glucose 108 H 128 H 169 H Calcium 01/20/21 01/20/21 01/20/21 06:35 06:35 07:05 WBC 8.73 RBC 2.65 L Hgb 8.2 L Hct 25.1 L MCV 94.7 MCH 30.9 MCHC 32.7 RDW Std Deviation 66.0 H RDW Coeff of Rico 19.0 H Plt Count 127 L MPV 8.7 Sodium 136 Potassium 4.4 Chloride 106 Carbon Dioxide 23 Anion Gap 7.0 BUN 53 H Creatinine 6.43 H* D Est Cr Clr Drug Dosing 8.5 Est GFR ( Amer) 7.2 Est GFR (Non-Af Amer) 6.2 BUN/Creatinine Ratio 8.3 L Glucose 113 H POC Glucose 125 H Calcium 8.9 (1) Anemia Anemia type: unspecified type Qualified Code(s): D64.9 - Anemia, unspecified
[2021-01-20] MEDS ORDERED: EPOETIN ALFA 10,000 UNITS/ML VIAL IV SCH (10:00)
[2021-01-20] MEDS ORDERED: EPOETIN ALFA 10,000 UNITS in SYRINGE 0 ML IV SCH (10:00)
[2021-01-20] MEDS: DOXYCYCLINE HYCLATE 100 MG in DEXTROSE 5% 100 ML IV SCH (12:33)
--- NOTE | 2021-01-20 18:33 | Hospitalist Progress Note ---
Date of Service January 20, 2021 Assessment & Plan (1) Syncope and collapse: Plan: -Patient presenting from dialysis after an episode of unresponsiveness/cyanosis -CPR initiated with chest compressions only, no ACLS medications given -History of similar episode x 2 in November 2020 - felt to be secondary to hypotension during dialysis -Patient currently alert and oriented, VSS -sinus rhythm on telemetry -Troponin trended and no evidence of ACS-mildly elevated troponin likely related to renal disease and recent chest compressions -Orthostatics ordered but not performed yet, reordered. -Considering transient hypotension from fluid shifts during hemodialysis sess ions may have contributed to her unresponsive episode. -Holding a.m. hydralazine prior to treatment. (2) Hypoxia: Plan: Hypoxia secondary to edema vs ?CAP? Empirically started ceftriaxone and doxycycline. No S/Sx of pneumonia and procalcitonin normal. Favoring edema. Continues on diuretics and HD with UF for fluid management. Hypoxia appears to be improving. Cont current management. (3) End stage renal failure on dialysis: Plan: -MWF schedule -Nephrology consult (patient follows with [facility]) -Continue routine renal medications (4) Anemia due to chronic kidney disease: Plan: -Hgb 6.9 -No signs of bleeding -received one unit of blood since admission 01/12.6, repeat unit ordered today with hemodialysis. -cont to monitor, continue Epogen per nephrology (5) Chronic diastolic CHF (congestive heart failure): Plan: -Volume managed with furosemide and dialysis, hypervolemic on exam today and patient reports discomfort with fluid retention and swelling in her legs. No CHF symptoms or shortness of breath at this time. BNP notably elevated on labwork. (6) Hypertension: Plan: Blood pressure elevated on current therapy including hydralazine, Coreg, Lasix. Will discuss further with nephrology in a.m. Utilize parenteral agents as needed. Continue low-salt diet. (7) Thrombocytopenia: Plan: improved since admission, appears to be a secondary process but uncertain etiology, new from her normal baseline, notably started plavix a few months ago as secondary stroke prophylaxis. HIT panel pending. Cont to monitor. (8) History of CVA (cerebrovascular accident): Plan: -Continue Plavix and statin (9) Type 2 diabetes mellitus: Plan: -Hgb A1c 7.1 10/2020 -Lantus and NovoLog per protocol while hospitalize Continue NovoLog while holding Lantus in setting of hypoglycemia this admission. (10) DVT prophylaxis: Plan: SCDs due to thrombocytopenia Full Code Dispo-to home when medically stable DO Kwaku Guerra Hospitalist Admission and Anticipated Discharge Date Admission Date: January 19, 2021 Subjective 65-year-old female sent to the hospital after period of presumed cardiac arrest with dialysis. She is emotional and tearful this evening reporting excessive swelling and fluid retention especially in her legs which are giving her problems. She denies any other shortness of breath, chest pain, fever, cough or other symptoms. Hemodialysis is pending. Review of Systems Review of Systems: All systems were reviewed and negative except as indicated in HPI above. Physical Exam Physical Exam: CONSTITUTIONAL: WNWD, vitals as above, chronically ill- appearing but no acute distress, tearful EYES: normal conjunctivae, no scleral icterus ENT: external ear and nose normal, MMM RESPIRATORY: clear to auscultation bilaterally, no crackles, rales or wheezes, normal respiratory effort CARDIOVASCULAR: regular rate and rhythm, S1 and 2 heard without murmurs, gallops or rubs, no JVD, no peripheral edema CHEST: inspection of chest was normal with port accessed in right anterior chest GASTROINTESTINAL: soft, nontender, nondistended MUSCULOSKELETAL: strength 5/5 throughout, head is normocephalic and atraumatic SKIN: warm and dry NEUROLOGIC: No facial palsy, no dysarthria. CN 2-12 grossly intact, no sensory deficit, normal cognition, normal speech, no tremor, no gross focal deficits. PSYCHIATRIC: alert cooperative and oriented to person, place and time. Results & Data Results & Data ([facility]) Vital Signs (Past 12 Hours) Vital Signs Temp Pulse Pulse Resp BP BP Pulse Ox 01/20/21 15:36 36.7 C 73 20 179/73 H 96 01/20/21 11:36 36.6 C 70 16 176/78 H 95 01/20/21 08:00 78 01/20/21 07:24 36.5 C Laboratory Results Short CBC 01/20/21 Range/Units 06:35 WBC 8.73 (4.8-10.8) K/uL Hgb 8.2 L (12.0-16.0) g/dL Hct 25.1 L (37-47) % Plt Count 127 L (130-400) K/uL BMP 01/20/21 06:35 Sodium 136 Potassium 4.4 Chloride 106 Carbon Dioxide 23 BUN 53 H Creatinine 6.43 H* D Glucose 113 H Calcium 8.9 Medications Administered Current Inpatient Medications Acetaminophen (Acetaminophen 325 Mg Tab) 650 mg PO Q4H PRN PRN Reason: Pain or Fever Stop: 02/17/21 15:52 Atorvastatin Calcium (Atorvastatin 40 Mg Tab) 40 mg PO DAILY JOSE FRANCISCO Stop: 02/18/21 08:59 Last Admin: 01/20/21 09:22 Dose: 40 mg Documented by: Calcium Acetate (Calcium Acetate 667 Mg Cap/Tab) 667 mg PO TIDM JOSE FRANCISCO Stop: 02/17/21 16:59 Last Admin: 01/20/21 18:15 Dose: 667 mg Documented by: Carvedilol (Carvedilol 3.125 Mg Tab) 3.125 mg PO BID JOSE FRANCISCO Stop: 02/17/21 20:59 Last Admin: 01/20/21 09:23 Dose: 3.125 mg Documented by: Clopidogrel Bisulfate (Clopidogrel Bisulfate 75 Mg Tab) 75 mg PO DAILY JOSE FRANCISCO Stop: 02/18/21 08:59 Last Admin: 01/20/21 09:22 Dose: 75 mg Documented by: Dextrose (Dextrose 50% 50 Ml Syringe) 25 - 50 ml IV UD PRN; Protocol PRN Reason: Hypoglycemia Protocol Stop: 02/17/21 15:52 Furosemide (Furosemide 40 Mg Tab) 40 mg PO [id number] JOSE FRANCISCO Stop: 02/17/21 16:59 Last Admin: 01/20/21 18:15 Dose: 40 mg Documented by: Glucagon (Glucagon For Inj 1 Mg Vial) 1 mg SQ UD PRN; Protocol PRN Reason: Hypoglycemia Protocol Stop: 02/17/21 15:52 Glucose (Glucose 10 Tabs/Tube) 4 - 8 tabs PO UD PRN; Protocol PRN Reason: Hypoglycemia Protocol Stop: 02/17/21 15:52 Glucose (Glucose 40% Gel 15 Gm Tube) 15 - 30 gm PO UD PRN; Protocol PRN Reason: Hypoglycemia Protocol Stop: 02/17/21 15:52 Hydralazine HCl (Hydralazine Tab 50 Mg Tab) 50 mg PO TID JOSE FRANCISCO Stop: 02/17/21 20:59 Last Admin: 01/19/21 21:04 Dose: 50 mg Documented by: Ceftriaxone Sodium 2,000 mg/ (Dextrose) 70 mls @ 140 mls/hr IV Q24H [facility]; Protocol Stop: 01/25/21 23:14 Last Infusion: 01/19/21 22:58 Dose: Infused Documented by: Doxycycline Hyclate 100 mg/ (Dextrose) 110 mls @ 50 mls/hr IV Q12H [facility] Stop: 01/25/21 23:14 Last Infusion: 01/20/21 15:26 Dose: Infused Documented by: Sodium Chloride (Nss) 250 mls @ 15 mls/hr IV .[id number] PRN PRN Reason: For Transfusion Stop: 01/20/21 19:36 Sodium Chloride (Nss) 250 mls @ 15 mls/hr IV .[id number] PRN PRN Reason: For Transfusion Stop: 01/20/21 22:17 Insulin Aspart (Insulin Aspart 100 Units/Ml 3 Ml Pen) 0 units SC ACHS [facility] Stop: 02/17/21 16:29 Last Admin: 01/20/21 18:16 Dose: 4 units Documented by: Miscellaneous (Carbohydrates For Hypoglycemia ) 15 - 30 gm PO UD PRN PRN Reason: Hypoglycemia Protocol Stop: 02/17/21 15:52 Vitamin B Complex/Folic Acid (Ne[facility]rocaps) [facility] Stop: 02/18/21 08:59 Last Admin: 01/20/21 09:22 Dose: 1 cap Documented by: Vitamin D (Cholecalciferol 1,000 Units 25 Mcg Tab) 4,000 units PO QAM [facility] Stop: 02/18/21 08:59 Last Admin: 01/20/21 09:22 Dose: 4,000 units Documented by: (1) Hypertension Hypertension type: unspecified Qualified Code(s): I10 - Essential (primary) hypertension
[2021-01-21] MEDS: carvediloL 3.125 MG TAB PO SCH ×3 (00:01→20:40)
[2021-01-21] MEDS: cefTRIAXone SODIUM 2,000 MG in DEXTROSE 5% 50 ML IV SCH (00:04)
[2021-01-21] MEDS: DOXYCYCLINE HYCLATE 100 MG in DEXTROSE 5% 100 ML IV SCH ×2 (00:04→12:00)
[2021-01-21 06:35] LABS: Hematocrit (blood only) 28.7 % (37-47); Hemoglobin 9.2 g/dL (12.0-16.0); Mean Corpuscular Hemoglobin 30.6 pg (25-34); Mean Corpuscular Hgb Conc 32.1 g/dL (32-36); Mean Corpuscular Volume 95.3 fL (80-100); Mean Platelet Volume 9.1 fL (7.4-10.4); Platelet Count 125 K/uL (130-400); RDW Coefficient of Variation 18.4 % (11.5-14.5); RDW Standard Deviation 63.8 fL (36.4-46.3); Red Blood Count 3.01 M/uL (4.2-5.4); White Blood Count 6.68 K/uL (4.8-10.8)
[2021-01-21 07:09] LABS: BUN Creatinine Ratio 6.7 (10-20); Calcium 8.9 mg/dl (8.5-10.1); Creatinine Clr Calc Pharmacy 13.9 ml/min; Est GFR (African American) 13.2 ml/min; Est GFR (Non-African American) 11.4 ml/min
[2021-01-21] MEDS: CLOPIDOGREL BISULFATE 75 MG TAB PO SCH (07:57)
[2021-01-21] MEDS: NEPHROCAPS PO SCH (07:57)
[2021-01-21] MEDS: CALCIUM ACETATE 667 MG CAP/TAB PO SCH ×3 (07:58→17:05)
[2021-01-21] MEDS: FUROSEMIDE 40 MG TAB PO SCH ×2 (07:58→17:04)
[2021-01-21] MEDS: CHOLECALCIFEROL 1,000 UNITS 25 MCG TAB PO SCH (07:59)
[2021-01-21] MEDS: ATORVASTATIN 40 MG TAB PO SCH (07:59)
[2021-01-21] MEDS: INSULIN ASPART 100 UNITS/ML 3 ML PEN SC SCH ×4 (08:12→20:39)
[2021-01-21] MEDS ORDERED: LABETALOL HCL IV 5 MG/ML 20ML IV STA (08:38)
[2021-01-21] MEDS ORDERED: hydrALAZINE HCL 25 MG TAB PO SCH (09:00)
--- NOTE | 2021-01-21 10:17 | Nephrology Progress Note ---
Date of Service January 21, 2021 Assessment & Plan (1) End stage renal failure on dialysis: Plan: * Outpatient HD orders: MWF [facility], 3.5 hrs, F-180NR, 3K, EDW 77kg * Volume status and electrolyte balance remain acceptable at this time * No acute indication for HD today. Will reassess in am (2) Anemia: Plan: * Progressive drop in Hgb and platelet # * Received 1 U PRBC 01/18/21 and 01/20/21 * On very low dose heparin with HD * Receives RANDY w/ HD * Elevated ferritin * Recently started on Plavix * FOBT 01/18 negative x1 * 831 Iron sat 18%, ferritin 1386. Hold IV iron due to elevated ferritin * haptoglobin and heparin induced antibody testing - pending * Recommend transfusion to maintain Hgb > 8.0 (3) Cardiopulmonary arrest: Plan: * 3 prior episodes occurring ~ 20 min into HD * No evidence of anaphylaxis to suggest dialyzer reaction * No other patients at outpatient HD unit effected * Troponin elevated due to recent arrest, trending down * No arrhythmia overnight on telemetry * Cardiology recommended holding Hydralazine prior to treatments - possible relative hypotension at start of treatment * Question whether patient is anemic (Hgb 7 at time of admission), 500 cc removed by dialyzer circuit and develops myocardial stunning (4) Hypertension: Plan: * Suboptimal control * On Carvedilol, Furosemide and Hydralazine * Recommend increasing Hydralazine to 75 mg po TID. Hold am dose MWF am prior to HD Admission and Anticipated Discharge Date Admission Date: January 19, 2021 Subjective Ms. Riley was evaluated in her hospital room this morning. She was dialyzed late yesterday evening without complication. 3L UF obtained. No arrhythmia overnight on telemetry. Ms. Riley currently denies fever, angina or dyspnea Review of Systems Constitutional: + weakness; no fever Eyes: no problem reported Ear, Nose, Mouth, Throat: no problem reported Respiratory: no cough and no dyspnea Cardiovascular: no palpitations Gastrointestinal: no abdominal pain, no nausea, no vomiting and no diarrhea/loose stools Genitourinary: no dysuria and no hematuria Musculoskeletal: no back pain Neurologic: no confusion Physical Exam Constitutional: not in distress Eyes: PERRL ENMT: external ear and nose normal, oropharynx normal Neck: trachea midline, no thyromegaly Respiratory: normal respiratory effort, lungs clear to auscultation Cardiovascular: Rate/Rhythm: regular rate and regular rhythm Extremities: + edema (1+ pretibial edema) Gastrointestinal (Abdomen): normal bowel sounds, soft, nontender, no h epatosplenomegaly Musculoskeletal: Extremities: no cyanosis Results & Data ([facility]) Vital Signs (Past 12 Hours) Vital Signs Temp Pulse Pulse Pulse Resp BP BP 01/21/21 07:33 36.6 C 74 18 01/21/21 03:59 36.9 C 71 20 184/68 H 01/20/21 23:20 86 188/90 H 01/20/21 23:00 85 201/95 H 01/20/21 22:40 86 197/91 H 01/20/21 22:30 86 203/97 H 01/20/21 22:15 37.1 C 88 18 204/88 H BP Pulse Ox 01/21/21 07:33 181/74 H 97 01/21/21 03:59 97 01/20/21 23:20 01/20/21 23:00 01/20/21 22:40 01/20/21 22:30 01/20/21 22:15 PG Care Time/CCT Total # of Minutes Spent Total Time Spent with Patient: Total time spent is greater than 50% in coordination of care (as documented) at patient's floor/unit and/or counseling patient: Coding Level of Care Code 79057 Subseq Hosp Care Lvl 3 Diagnoses End stage renal failure on dialysis N18.6; Z99.2 Anemia D64.9 Anemia type: unspecified type Cardiopulmonary arrest I46.9 Hypertension I10 Hypertension type: unspecified (1) Anemia Anemia type: unspecified type Qualified Code(s): D64.9 - Anemia, unspecified (2) Hypertension Hypertension type: unspecified Qualified Code(s): I10 - Essential (primary) hypertension
--- NOTE | 2021-01-21 11:03 | Cardiology Progress Note ---
Date of Service January 21, 2021 Assessment & Plan (1) Syncope and collapse: (2) Elevated troponin: (3) Anemia: (4) Chronic diastolic CHF (congestive heart failure): Plan: 65-year-old female presents with recurrent loss of consciousness after initiation of dialysis. Episode similar to prior occurrence in November. Possibly related to volume shifts during dialysis. Recent Lexiscan nuclear stress test without evidence of inducible ischemia. AED applied with no shock indicating suggesting the loss of consciousness was not secondary to ventricular tachycardia or ventricular fibrillation. EKG and echocardiogram did not suggest an acute ischemic event as cause for hemodynamic collapse. Telemetry since admission without arrhythmias. Recommendations: As already ordered treat hypertension with hold of hydralazine morning of dialysis no other changes made medical therapies. Admission and Anticipated Discharge Date Admission Date: January 19, 2021 Subjective Patient seen and examined, chart, medications, telemetry reviewed. Patient underwent dialysis without difficulty last evening. No arrhythmias during dialysis or overnight. Patient clinically improved this morning. Review of Systems Review of Systems: All systems reviewed & are unremarkable except as noted in Subjective Physical Exam Constitutional: no acute distress Eyes: PERRL, conjunctivae normal, anicteric sclerae ENMT: external ear and nose normal, oropharynx normal Neck: trachea midline, no thyromegaly Respiratory: normal respiratory effort, lungs clear to auscultation Auscultation: + diminished lung sounds Cardiovascular: Rate/Rhythm: regular rate and regular rhythm Heart Sounds: normal S1 and normal S2; no murmur Extremities: + edema (1+) Gastrointestinal (Abdomen): normal bowel sounds, soft, nontender, no hepatosplenomegaly Musculoskeletal: no cyanosis or clubbing, extremities motor strength 5/5 Head/Neck/Chest: + localized rib tenderness Skin: no rashes, warm and dry Psychiatric: Orientation: oriented x 3 Results & Data ([facility]) Vital Signs (Past 12 Hours) Vital Signs Temp Pulse Pulse Pulse Resp BP BP 01/21/21 10:00 73 01/21/21 07:33 36.6 C 74 18 01/21/21 03:59 36.9 C 71 20 184/68 H 01/20/21 23:20 86 188/90 H BP Pulse Ox 01/21/21 10:00 01/21/21 07:33 181/74 H 97 01/21/21 03:59 97 01/20/21 23:20 Laboratory Results Laboratory Results - last 24 hr 01/18/21 01/20/21 01/20/21 11:49 11:16 16:04 WBC RBC Hgb Hct MCV MCH MCHC RDW Std Deviation RDW Coeff of Rico Plt Count MPV Sodium Potassium Chloride Carbon Dioxide Anion Gap BUN Creatinine Est Cr Clr Drug Dosing Est GFR ( Amer) Est GFR (Non-Af Amer) BUN/Creatinine Ratio Glucose POC Glucose 130 H 132 H Calcium Hep Bs Antigen Blood Type A Positive Antibody Screen POSITIVE A Antibody Identification Anti-Fya Antibody ID Comment Crossmatch See Detail 01/20/21 01/21/21 01/21/21 20:25 05:58 05:58 WBC 6.68 RBC 3.01 L Hgb 9.2 L Hct 28.7 L MCV 95.3 MCH 30.6 MCHC 32.1 RDW Std Deviation 63.8 H RDW Coeff of Rico 18.4 H Plt Count 125 L MPV 9.1 Sodium Potassium Chloride Carbon Dioxide Anion Gap BUN Creatinine Est Cr Clr Drug Dosing Est GFR ( Amer) Est GFR (Non-Af Amer) BUN/Creatinine Ratio Glucose POC Glucose 164 H Calcium Hep Bs Antigen Neg Blood Type Antibody Screen Antibody Identification Antibody ID Comment Crossmatch 01/21/21 01/21/21 05:58 07:23 WBC RBC Hgb Hct MCV MCH MCHC RDW Std Deviation RDW Coeff of Rico Plt Count MPV Sodium 138 Potassium 4.0 Chloride 106 Carbon Dioxide 26 Anion Gap 6.0 BUN 26 H D Creatinine 3.90 H D Est Cr Clr Drug Dosing 13.9 Est GFR ( Amer) 13.2 Est GFR (Non-Af Amer) 11.4 BUN/Creatinine Ratio 6.7 L Glucose 111 H POC Glucose 106 H Calcium 8.9 Hep Bs Antigen Blood Type Antibody Screen Antibody Identification Antibody ID Comment Crossmatch (1) Anemia Anemia type: unspecified type Qualified Code(s): D64.9 - Anemia, unspecified
[2021-01-21] MEDS ORDERED: hydrALAZINE HCL 20 MG/ML VIAL IV STA (13:44)
[2021-01-21] MEDS ORDERED: EUCERIN CR 120 GM JAR EXT PRN (13:57)
--- NOTE | 2021-01-21 13:59 | Hospitalist Progress Note ---
Date of Service January 21, 2021 Assessment & Plan (1) Syncope and collapse: Plan: -Patient presenting from dialysis after an episode of unresponsiveness/cyanosis -CPR initiated with chest compressions only, no ACLS medications given -History of similar episode x 2 in November 2020 - felt to be secondary to hypotension during dialysis -Patient currently alert and oriented, VSS -sinus rhythm on telemetry -Troponin trended and no evidence of ACS-mildly elevated troponin likely related to renal disease and recent chest compressions -Orthostatics ordered but not performed yet, reordered. -Considering transient hypotension from fluid shifts during hemodialysis sess ions may have contributed to her unresponsive episode. -Holding a.m. hydralazine prior to treatment. -No further episodes. (2) Hypoxia: Plan: Hypoxia has improved after ultrafiltrate removal. And she is feeling much better today. As procalcitonin is remain negative, she is asymptomatic from a respiratory standpoint and hypoxia is improving, abnormality seen on CT was likely secondary to pulmonary edema and antibiotics will be stopped at this time. (3) End stage renal failure on dialysis: Plan: -MWF schedule -Nephrology consult (patient follows with [facility]) -Continue routine renal medications (4) Anemia due to chronic kidney disease: Plan: -Hgb 6.9 -No signs of bleeding -received one unit of blood since admission 01/12.6, repeat unit ordered 01/20 with hemodialysis. Posttransfusion H&H this morning was 9.2/28.7, and appropriate response. -cont to monitor, continue Epogen per nephrology (5) Chronic diastolic CHF (congestive heart failure): Plan: -Volume managed with furosemide and dialysis with ultrafiltrate removal, euvolemic on exam today. Appears compensated. Continue Lasix and management of volume with ultrafiltrate removal. (6) Hypertension: Plan: Blood pressure elevated on current therapy including hydralazine, Coreg, Lasix. Per my conversation with nephrology, we will increase hydralazine to 75 mg p.o. 3 times daily. We will continue to hold predialysis treatment hydralazine dose and ensure low-salt diet. Utilize parenteral agents as needed as she is still not at goal. (7) Thrombocytopenia: Plan: improved since admission, appears to be a secondary process but uncertain etiology, new from her normal baseline, notably started plavix a few months ago as secondary stroke prophylaxis. HIT panel still pending. Cont to monitor. Ho ld heparin until HIT panel returns normal. (8) History of CVA (cerebrovascular accident): Plan: -Continue Plavix and statin (9) Type 2 diabetes mellitus: Plan: -Hgb A1c 7.1 10/2020 -Lantus and NovoLog per protocol while hospitalize Continue NovoLog while holding Lantus in setting of hypoglycemia this admission. (10) DVT prophylaxis: Plan: SCDs due to thrombocytopenia, if HIT panel comes back normal, seriously consider starting chemoprophylaxis for DVT Full Code Dispo-to home when medically stable [facility] Admission and Anticipated Discharge Date Admission Date: January 19, 2021 Subjective 65-year-old female sent to the hospital after period of presumed cardiac arrest with dialysis. Patient reports feeling better today, she did well on hemodialysis without evidence of syncope or loss of consciousness. 3 L of ultrafiltrate was ob tained. She is asymptomatic denying chest pain, shortness of breath, cough, fevers chills or other issues. Reports her legs are specifically feeling better today. Remains normal sinus rhythm on telemetry review. Review of Systems Review of Systems: At least ten systems were reviewed and negative except as indicated in HPI above. Physical Exam Physical Exam: CONSTITUTIONAL: WNWD, vitals as above, chronically ill- appearing but no acute distress EYES: normal conjunctivae, no scleral icterus ENT: external ear and nose normal, MMM RESPIRATORY: clear to auscultation bilaterally, no crackles, rales or wheezes, normal respiratory effort CARDIOVASCULAR: regular rate and rhythm, S1 and 2 heard without murmurs, gallops or rubs, no JVD, no peripheral edema CHEST: inspection of chest was normal with port accessed in right anterior chest GASTROINTESTINAL: soft, nontender, nondistended MUSCULOSKELETAL: strength 5/5 throughout, head is normocephalic and atraumatic SKIN: warm and dry, dry skin noted. NEUROLOGIC: No facial palsy, no dysarthria. CN 2-12 grossly intact, no sensory deficit, normal cognition, normal speech, no tremor, no gross focal deficits. PSYCHIATRIC: alert cooperative and oriented to person, place and time. Results & Data Results & Data ([facility]) Vital Signs (Past 12 Hours) Vital Signs Temp Pulse Pulse Pulse Resp BP BP 01/21/21 11:51 36.7 C 72 20 187/73 H 01/21/21 10:00 73 01/21/21 09:45 184/78 H 01/21/21 07:33 36.6 C 74 18 181/74 H 01/21/21 03:59 36.9 C 71 20 184/68 H Pulse Ox 01/21/21 11:51 98 01/21/21 10:00 01/21/21 09:45 01/21/21 07:33 97 01/21/21 03:59 97 Laboratory Results Short CBC 01/21/21 Range/Units 05:58 WBC 6.68 (4.8-10.8) K/uL Hgb 9.2 L (12.0-16.0) g/dL Hct 28.7 L (37-47) % Plt Count 125 L (130-400) K/uL BMP 01/21/21 05:58 Sodium 138 Potassium 4.0 Chloride 106 Carbon Dioxide 26 BUN 26 H D Creatinine 3.90 H D Glucose 111 H Calcium 8.9 Medications Administered Current Inpatient Medications Acetaminophen (Acetaminophen 325 Mg Tab) 650 mg PO Q4H PRN PRN Reason: Pain or Fever Stop: 02/17/21 15:52 Last Admin: 01/20/21 23:59 Dose: 650 mg Documented by: Atorvastatin Calcium (Atorvastatin 40 Mg Tab) 40 mg PO DAILY JOSE FRANCISCO Stop: 02/18/21 08:59 Last Admin: 01/21/21 07:59 Dose: 40 mg Documented by: Calcium Acetate (Calcium Acetate 667 Mg Cap/Tab) 667 mg PO TIDM JOSE FRANCISCO Stop: 02/17/21 16:59 Last Admin: 01/21/21 12:01 Dose: 667 mg Documented by: Carvedilol (Carvedilol 3.125 Mg Tab) 3.125 mg PO BID JOSE FRANCISCO Stop: 02/17/21 20:59 Last Admin: 01/21/21 07:58 Dose: 3.125 mg Documented by: Clopidogrel Bisulfate (Clopidogrel Bisulfate 75 Mg Tab) 75 mg PO DAILY JOSE FRANCISCO Stop: 02/18/21 08:59 Last Admin: 01/21/21 07:57 Dose: 75 mg Documented by: Dextrose (Dextrose 50% 50 Ml Syringe) 25 - 50 ml IV UD PRN; Protocol PRN Reason: Hypoglycemia Protocol Stop: 02/17/21 15:52 Epoetin Victor Hugo (Epoetin Victor Hugo 10,000 Units/Ml Vial) 10,000 units IV TODAY@0600 [facility] Stop: 01/22/21 16:00 Furosemide (Furosemide 40 Mg Tab) 40 mg PO BID17 JOSE FRANCISCO Stop: 02/17/21 16:59 Last Admin: 01/21/21 07:58 Dose: 40 mg Documented by: Glucagon (Glucagon For Inj 1 Mg Vial) 1 mg SQ UD PRN; Protocol PRN Reason: Hypoglycemia Protocol Stop: 02/17/21 15:52 Glucose (Glucose 10 Tabs/Tube) 4 - 8 tabs PO UD PRN; Protocol PRN Reason: Hypoglycemia Protocol Stop: 02/17/21 15:52 Glucose (Glucose 40% Gel 15 Gm Tube) 15 - 30 gm PO UD PRN; Protocol PRN Reason: Hypoglycemia Protocol Stop: 02/17/21 15:52 Heparin Sodium (Porcine) (Heparin Sod (Porcine) 1000 Unit/Ml) 2,000 units IV ONE ONE Stop: 01/22/21 07:01 Heparin Sodium (Porcine) (Heparin Sod (Porcine) 1000 Unit/Ml) 500 units IV Q1H JOSE FRANCISCO Stop: 01/22/21 09:01 Hydralazine HCl (Hydralazine Hcl 25 Mg Tab) 75 mg PO TID JOSE FRANCISCO Stop: 02/20/21 08:59 Hydralazine HCl (Hydralazine Hcl 20 Mg/Ml Vial) 10 mg IV Q6H PRN PRN Reason: SBP>160 Stop: 02/20/21 19:59 Sodium Chloride (Nss 1000ml) 1,000 mls @ 0 mls/hr IV .Q0M PRN PRN Reason: For Hemodialysis Use ONLY Stop: 01/22/21 12:59 Insulin Aspart (Insulin Aspart 100 Units/Ml 3 Ml Pen) 0 units SC ACHS [facility] Stop: 02/17/21 16:29 Last Admin: 01/21/21 12:05 Dose: 8 units Documented by: Miscellaneous (Carbohydrates For Hypoglycemia ) 15 - 30 gm PO UD PRN PRN Reason: Hypoglycemia Protocol Stop: 02/17/21 15:52 Multi-Ingredient Cream (Eucerin Cr 120 Gm Jar) 1 appln EXT Q24H [facility] Stop: 02/20/21 13:59 Vitamin B Complex/Folic Acid (Nephrocaps) 1 cap PO QAM JOSE FRANCISCO Stop: 02/18/21 08:59 Last Admin: 01/21/21 07:57 Dose: 1 cap Documented by: Vitamin D (Cholecalciferol 1,000 Units 25 Mcg Tab) 4,000 units PO [facility] Stop: 02/18/21 08:59 Last Admin: 01/21/21 07:59 Dose: 4,000 units Documented by: (1) Hypertension Hypertension type: unspecified Qualified Code(s): I10 - Essential (primary) hypertension
[2021-01-21] MEDS: EUCERIN CR 120 GM JAR EXT SCH (15:08)
[2021-01-21 15:56] LABS: Haptoglobin 68 mg/dL (43-212); Plt Ab, Heparin Induced Positive (Negative)
[2021-01-21] MEDS: hydrALAZINE HCL 20 MG/ML VIAL IV PRN (23:59)
[2021-01-22] MEDS ORDERED: EPOETIN ALFA 10,000 UNITS/ML VIAL IV SCH (06:00)
[2021-01-22 06:24] LABS: Hematocrit (blood only) 28.3 % (37-47); Mean Corpuscular Hemoglobin 30.5 pg (25-34); Mean Corpuscular Hgb Conc 31.8 g/dL (32-36); Mean Corpuscular Volume 95.9 fL (80-100); Platelet Count 142 K/uL (130-400); RDW Coefficient of Variation 18.3 % (11.5-14.5); RDW Standard Deviation 64.2 fL (36.4-46.3); Red Blood Count 2.95 M/uL (4.2-5.4); White Blood Count 7.82 K/uL (4.8-10.8)
[2021-01-22] MEDS ORDERED: SODIUM CHLORIDE 0.9% 1000ML 1,000 ML IV PRN (07:00)
[2021-01-22] MEDS ORDERED: HEPARIN SOD (PORCINE) 1000 UNIT/ML IV ONE (07:00)
[2021-01-22 07:07] LABS: BUN Creatinine Ratio 8.4 (10-20); Calcium 8.8 mg/dl (8.5-10.1); Creatinine Clr Calc Pharmacy 9.9 ml/min; Est GFR (African American) 8.8 ml/min; Est GFR (Non-African American) 7.6 ml/min; Potassium 4.4 mmol/L (3.5-5.1)
[2021-01-22] MEDS: CALCIUM ACETATE 667 MG CAP/TAB PO SCH ×3 (08:05→17:13)
[2021-01-22] MEDS: ATORVASTATIN 40 MG TAB PO SCH (08:05)
[2021-01-22] MEDS: carvediloL 3.125 MG TAB PO SCH (08:05)
[2021-01-22] MEDS: CHOLECALCIFEROL 1,000 UNITS 25 MCG TAB PO SCH (08:06)
[2021-01-22] MEDS: FUROSEMIDE 40 MG TAB PO SCH ×2 (08:07→17:25)
[2021-01-22] MEDS: CLOPIDOGREL BISULFATE 75 MG TAB PO SCH (08:07)
[2021-01-22] MEDS: NEPHROCAPS PO SCH (08:08)
[2021-01-22] MEDS: INSULIN ASPART 100 UNITS/ML 3 ML PEN SC SCH ×4 (08:09→19:27)
--- NOTE | 2021-01-22 10:12 | Cardiology Progress Note ---
Date of Service January 22, 2021 Assessment & Plan (1) Syncope and collapse: (2) Elevated troponin: (3) Anemia: (4) Chronic diastolic CHF (congestive heart failure): Plan: 65-year-old female presents with recurrent loss of consciousness after initiation of dialysis. Episode similar to prior occurrence in November. Possibly related to volume shifts during dialysis. Recent Lexiscan nuclear stress test without evidence of inducible ischemia. AED applied with no shock indicating suggesting the loss of consciousness was not secondary to ventricular tachycardia or ventricular fibrillation. EKG and echocardiogram did not suggest an acute ischemic event as cause for hemodynamic collapse. Telemetry since admission without arrhythmias. Recommendations: Patient to undergo dialysis today on telemetry. Consider adding amlodipine nocturnally for further hypertension control Admission and Anticipated Discharge Date Admission Date: January 19, 2021 Subjective Patient seen and examined, chart, medications, telemetry reviewed. No arrhythmias on telemetry. Patient still with difficulties with restless legs at night but no acute complaints. No shortness of breath or cough. Blood pressures trending higher Review of Systems Review of Systems: All systems reviewed & are unremarkable except as noted in Subjective Physical Exam Constitutional: + obese; no acute distress Eyes: PERRL, conjunctivae normal, anicteric sclerae ENMT: external ear and nose normal, oropharynx normal Neck: trachea midline, no thyromegaly Respiratory: normal respiratory effort, lungs clear to auscultation Auscultation: + diminished lung sounds Cardiovascular: Rate/Rhythm: regular rate and regular rhythm Heart Sounds: normal S1 and normal S2; no murmur Extremities: + edema (1+) Gastrointestinal (Abdomen): normal bowel sounds, soft, nontender, no hepatosplenomegaly Musculoskeletal: no cyanosis or clubbing, extremities motor strength 5/5 Head/Neck/Chest: + localized rib tenderness Skin: no rashes, warm and dry Psychiatric: Orientation: oriented x 3 Results & Data ([facility]) Vital Signs (Past 12 Hours) Vital Signs Temp Pulse Pulse Pulse Resp BP BP 01/22/21 08:03 36.6 C 75 20 199/77 H 01/22/21 03:47 36.7 C 69 16 157/70 H 01/21/21 23:46 78 01/21/21 23:11 36.8 C 80 20 182/82 H Pulse Ox 01/22/21 08:03 98 01/22/21 03:47 98 01/21/21 23:46 01/21/21 23:11 97 Laboratory Results Laboratory Results - last 24 hr 01/18/21 01/21/21 01/21/21 21:14 11:33 16:21 WBC RBC Hgb Hct MCV MCH MCHC RDW Std Deviation RDW Coeff of Rico Plt Count MPV Haptoglobin 68 Sodium Potassium Chloride Carbon Dioxide Anion Gap BUN Creatinine Est Cr Clr Drug Dosing Est GFR ( Amer) Est GFR (Non-Af Amer) BUN/Creatinine Ratio Glucose POC Glucose 146 H 133 H Calcium Heparin Dep Plt Ab React Positive A* Heparin Dep Plt Ab OD 2.710 01/21/21 01/22/21 01/22/21 20:38 06:05 06:05 WBC 7.82 RBC 2.95 L Hgb 9.0 L Hct 28.3 L MCV 95.9 MCH 30.5 MCHC 31.8 L RDW Std Deviation 64.2 H RDW Coeff of Rico 18.3 H Plt Count 142 MPV 9.0 Haptoglobin Sodium 138 Potassium 4.4 Chloride 109 H Carbon Dioxide 25 Anion Gap 4.0 BUN 45 H D Creatinine 5.47 H* D Est Cr Clr Drug Dosing 9.9 Est GFR ( Amer) 8.8 Est GFR (Non-Af Amer) 7.6 BUN/Creatinine Ratio 8.4 L Glucose 113 H POC Glucose 153 H Calcium 8.8 Heparin Dep Plt Ab React Heparin Dep Plt Ab OD 01/22/21 07:11 WBC RBC Hgb Hct MCV MCH MCHC RDW Std Deviation RDW Coeff of Rico Plt Count MPV Haptoglobin Sodium Potassium Chloride Carbon Dioxide Anion Gap BUN Creatinine Est Cr Clr Drug Dosing Est GFR ( Amer) Est GFR (Non-Af Amer) BUN/Creatinine Ratio Glucose POC Glucose 118 H Calcium Heparin Dep Plt Ab React Heparin Dep Plt Ab OD (1) Anemia Anemia type: unspecified type Qualified Code(s): D64.9 - Anemia, unspecified
--- NOTE | 2021-01-22 10:18 | Nephrology Progress Note ---
Date of Service January 22, 2021 Assessment & Plan (1) End stage renal failure on dialysis: Plan: * Outpatient HD orders: MWF [facility], 3.5 hrs, F-180NR, 3K, EDW 77kg * HD today for correction of azotemia and limited UF (2) Anemia: Plan: * Progressive drop in Hgb and platelet # * Received 1 U PRBC 01/18/21 and 01/20/21 * On very low dose heparin with HD * Receives RANDY w/ HD * Elevated ferritin * Recently started on Plavix * FOBT 01/18 negative x1 * 831 Iron sat 18%, ferritin 1386. Hold IV iron due to elevated ferritin * Haptoglobin normal, * + heparin dependent antiplatelet antibodies - will hold heparin during dialysis and use only saline lock on dialysis catheter * Recommend transfusion to maintain Hgb > 8.0 (3) Cardiopulmonary arrest: Plan: * 3 prior episodes occurring ~ 20 min into HD * No evidence of anaphylaxis to suggest dialyzer reaction * No other patients at outpatient HD unit effected * Troponin elevated due to recent arrest, trending down * No arrhythmia overnight on telemetry * Cardiology recommended holding Hydralazine prior to treatments - possible relative hypotension at start of treatment * Question whether patient is anemic (Hgb 7 at time of admission), 500 cc removed by dialyzer circuit and develops myocardial stunning (4) Hypertension: Plan: * Suboptimal control * On Carvedilol, Furosemide and Hydralazine * Recommend increasing Hydralazine to 75 mg po TID. Hold am dose MWF am prior to HD * Consider titration of Carvedilol if OK w/ Cardiology Admission and Anticipated Discharge Date Admission Date: January 19, 2021 Subjective Ms. Riley was evaluated in her hospital room this morning. She c/o difficulty sleeping but voices no other medical concerns. No arrhythmia recorded overnight on telemetry. Ms. Riley currently denies fever, angina or dyspnea Review of Systems Constitutional: + weakness; no fever Eyes: no problem reported Ear, Nose, Mouth, Throat: no problem reported Respiratory: no cough and no dyspnea Cardiovascular: no palpitations Gastrointestinal: no abdominal pain, no nausea, no vomiting and no diarrhea/loose stools Genitourinary: no dysuria and no hematuria Musculoskeletal: no back pain Integumentary: no rash Neurologic: no confusion Physical Exam Constitutional: not in distress Eyes: PERRL ENMT: external ear and nose normal, oropharynx normal Neck: trachea midline, no thyromegaly Respiratory: normal respiratory effort, lungs clear to auscultation Cardiovascular: RRR, no murmur, no edema Rate/Rhythm: regular rate and regular rhythm Extremities: + edema (1+ pretibial edema) Gastrointestinal (Abdomen): normal bowel sounds, soft, nontender, no hepatosplenomegaly Musculoskeletal: Extremities: no cyanosis Results & Data ([facility]) Vital Signs (Past 12 Hours) Vital Signs Temp Pulse Pulse Pulse Resp BP BP 01/22/21 08:03 36.6 C 75 20 199/77 H 01/22/21 03:47 36.7 C 69 16 157/70 H 01/21/21 23:46 78 01/21/21 23:11 36.8 C 80 20 182/82 H Pulse Ox 01/22/21 08:03 98 01/22/21 03:47 98 01/21/21 23:46 01/21/21 23:11 97 Laboratory Results Laboratory Tests 01/21/21 01/21/21 01/22/21 05:58 05:58 06:05 WBC 6.68 7.82 Hgb 9.2 L 9.0 L Hct 28.7 L 28.3 L Plt Count 125 L 142 Sodium 138 Potassium 4.0 Chloride 106 Carbon Dioxide 26 BUN 26 H D Creatinine 3.90 H D Glucose 111 H 01/22/21 06:05 WBC Hgb Hct Plt Count Sodium 138 Potassium 4.4 Chloride 109 H Carbon Dioxide 25 BUN 45 H D Creatinine 5.47 H* D Glucose 113 H PG Care Time/CCT Total # of Minutes Spent Total Time Spent with Patient: Total time spent is greater than 50% in coordination of care (as documented) at patient's floor/unit and/or counseling patient: Coding Level of Care Code 03013 Subseq Hosp Care Lvl 3 Diagnoses End stage renal failure on dialysis N18.6; Z99.2 Anemia D64.9 Anemia type: unspecified type Cardiopulmonary arrest I46.9 Hypertension I10 Hypertension type: unspecified (1) Anemia Anemia type: unspecified type Qualified Code(s): D64.9 - Anemia, unspecified (2) Hypertension Hypertension type: unspecified Qualified Code(s): I10 - Essential (primary) hypertension
[2021-01-22] MEDS: EUCERIN CR 120 GM JAR EXT SCH (14:56)
[2021-01-22] MEDS: hydrALAZINE HCL 20 MG/ML VIAL IV PRN (15:48)
[2021-01-22] MEDS: HEPARIN SOD (PORCINE) 1000 UNIT/ML IV SCH (16:48)
[2021-01-22] MEDS ORDERED: NITROGLYCERIN 2% OINTMENT 30GM TUBE EXT STA (16:52)
--- NOTE | 2021-01-22 17:03 | Hospitalist Progress Note ---
Date of Service January 22, 2021 Assessment & Plan (1) Syncope and collapse: Plan: -Patient presenting from dialysis after an episode of unresponsiveness/cyanosis -CPR initiated with chest compressions only, no ACLS medications given -History of similar episode x 2 in November 2020 - felt to be secondary to hypotension during dialysis -Patient currently alert and oriented, VSS -sinus rhythm on telemetry -Troponin trended and no evidence of ACS-mildly elevated troponin likely related to renal disease and recent chest compressions -Considering transient hypotension from fluid shifts during hemodialysis sessions may have contributed to her unresponsive episode. -Holding a.m. hydralazine prior to treatment. -No more syncopal episode -Blood pressure running very high (2) Hypoxia: Plan: Hypoxia has improved after ultrafiltrate removal. And she is feeling much better today. As procalcitonin is remain negative, she is asymptomatic from a respiratory standpoint and hypoxia is improving, abno rmality seen on CT was likely secondary to pulmonary edema and antibiotics will be stopped at this time. Saturating normal on 2 L nasal cannula oxygen (3) End stage renal failure on dialysis: Plan: -MWF schedule -Nephrology consult (patient follows with [facility]) -Continue routine renal medications -She was advised not to have any medicine for hypertension before dialysis (4) Anemia due to chronic kidney disease: Plan: -Hgb 6.9 -No signs of bleeding -received one unit of blood since admission 01/12.6, repeat unit ordered 01/20 with hemodialysis. Posttransfusion H&H this morning was 9.2/28.7, and appropriate response. -cont to monitor, continue Epogen per nephrology -Hemoglobin remains at 9.0 as of 01/22/2021 (5) Chronic diastolic CHF (congestive heart failure): Plan: -Volume managed with furosemide and dialysis with ultrafiltrate removal, euvolemic on exam today. Appears compensated. Continue Lasix and management of volume with ultrafiltrate removal. (6) Hypertension: Plan: Blood pressure elevated on current therapy including hydralazine, Coreg, Lasix. Per my conversation with nephrology, we will increase hydralazine to 75 mg p.o. 3 times daily. We will continue to hold predialysis treatment hydralazine dose and ensure low- salt diet. Blood pressure has been very high since this morning She was given 1 dose of intravenous paralyzing and repeat blood pressure at around 4:30 PM was 200/78 She will have dialysis tonight She was given half inch Nitropaste to reduce blood pressure. (7) Thrombocytopenia: Plan: improved since admission, appears to be a secondary process but uncertain etiology, new from her normal baseline, notably started plavix a few months ago as secondary stroke prophylaxis. HIT panel still pending. Cont to monitor. Hold heparin until HIT panel returns normal. 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 (10) DVT prophylaxis: Plan: SCDs due to thrombocytopenia, if HIT panel comes back normal, seriously consider starting chemoprophylaxis for DVT Full Code Dispo-to home when medically stable Admission and Anticipated Discharge Date Admission Date: January 19, 2021 Subjective 01/22/2021 The patient was seen and examined in telemetry unit She has been feeling much better This is a second or third admission due to the same reason of hypotensive episode during dialysis as an outpatient Will not give any heparin as HIT test is positive Review of Systems Review of Systems: All systems reviewed and are unremarkable except as noted below Physical Exam Physical Exam: Sitting at the edge of the bed without any acute symptoms Constitutional: well developed, well nourished and + obese; not ill appearing Eyes: PERRL, conjunctivae normal, anicteric sclerae ENMT: external ear and nose normal, oropharynx normal Neck: trachea midline, no thyromegaly Respiratory: no respiratory distress Auscultation: + crackles (Minimal bibasilar crackles) Cardiovascular: Rate/Rhythm: regular rate and regular rhythm; not tachycardic Heart Sounds: normal S1 and normal S2; no murmur Gastrointestinal (Abdomen): Inspection/Auscultation: normal bowel sounds; abdomen not distended Percussion/Palpation: abdomen soft; abdomen nontender Musculoskeletal: No acute arthritis in any joint Neurologic: Alert, awake and oriented x3. No focal sensory and motor deficit appreciated Lymphatic: no cervical or axillary lymphadenopathy Results & Data Results & Data ([facility]) Vital Signs (Past 12 Hours) Vital Signs Temp Pulse Pulse Resp BP BP Pulse Ox 01/22/21 16:47 200/78 H 01/22/21 16:18 190/80 H 01/22/21 15:30 36.7 C 68 20 192/75 H 98 01/22/21 15:12 70 01/22/21 12:05 36.6 C 71 19 188/77 H 97 01/22/21 08:03 36.6 C 75 20 199/77 H 98 01/22/21 08:00 73 Laboratory Results Short CBC 01/22/21 Range/Units 06:05 WBC 7.82 (4.8-10.8) K/uL Hgb 9.0 L (12.0-16.0) g/dL Hct 28.3 L (37-47) % Plt Count 142 (130-400) K/uL BMP 01/22/21 06:05 Sodium 138 Potassium 4.4 Chloride 109 H Carbon Dioxide 25 BUN 45 H D Creatinine 5.47 H* D Glucose 113 H Calcium 8.8 Medications Administered Current Inpatient Medications Acetaminophen (Acetaminophen 325 Mg Tab) 650 mg PO Q4H PRN PRN Reason: Pain or Fever Stop: 02/17/21 15:52 Last Admin: 01/20/21 23:59 Dose: 650 mg Documented by: Atorvastatin Calcium (Atorvastatin 40 Mg Tab) 40 mg PO DAILY JOSE FRANCISCO Stop: 02/18/21 08:59 Last Admin: 01/22/21 08:05 Dose: 40 mg Documented by: Calcium Acetate (Calcium Acetate 667 Mg Cap/Tab) 667 mg PO TIDM JOSE FRANCISCO Stop: 02/17/21 16:59 Last Admin: 01/22/21 12:02 Dose: 667 mg Documented by: Carvedilol (Carvedilol 3.125 Mg Tab) 3.125 mg PO BID JOSE FRANCISCO Stop: 02/17/21 20:59 Last Admin: 01/22/21 08:05 Dose: 3.125 mg Documented by: Clopidogrel Bisulfate (Clopidogrel Bisulfate 75 Mg Tab) 75 mg PO DAILY JOSE FRANCISCO Stop: 02/18/21 08:59 Last Admin: 01/22/21 08:07 Dose: 75 mg Documented by: Dextrose (Dextrose 50% 50 Ml Syringe) 25 - 50 ml IV UD PRN; Protocol PRN Reason: Hypoglycemia Protocol Stop: 02/17/21 15:52 Furosemide (Furosemide 40 Mg Tab) 40 mg PO [id number] JOSE FRANCISCO Stop: 02/17/21 16:59 Last Admin: 01/22/21 08:07 Dose: 40 mg Documented by: Glucagon (Glucagon For Inj 1 Mg Vial) 1 mg SQ UD PRN; Protocol PRN Reason: Hypoglycemia Protocol Stop: 02/17/21 15:52 Glucose (Glucose 10 Tabs/Tube) 4 - 8 tabs PO UD PRN; Protocol PRN Reason: Hypoglycemia Protocol Stop: 02/17/21 15:52 Glucose (Glucose 40% Gel 15 Gm Tube) 15 - 30 gm PO UD PRN; Protocol PRN Reason: Hypoglycemia Protocol Stop: 02/17/21 15:52 Hydralazine HCl (Hydralazine Hcl 25 Mg Tab) 75 mg PO TID JOSE FRANCISCO Stop: 02/20/21 08:59 Hydralazine HCl (Hydralazine Hcl 20 Mg/Ml Vial) 10 mg IV Q6H PRN PRN Reason: SBP>160 Stop: 02/20/21 19:59 Last Admin: 01/22/21 15:48 Dose: 10 mg Documented by: Insulin Aspart (Insulin Aspart 100 Units/Ml 3 Ml Pen) 0 units SC ACHS JOSE FRANCISCO Stop: 02/17/21 16:29 Last Admin: 01/22/21 12:02 Dose: 4 units Documented by: Miscellaneous (Carbohydrates For Hypoglycemia ) 15 - 30 gm PO UD PRN PRN Reason: Hypoglycemia Protocol Stop: 02/17/21 15:52 Multi-Ingredient Cream (Eucerin Cr 120 Gm Jar) 1 appln EXT Q24H JOSE FRANCISCO Stop: 02/20/21 13:59 Last Admin: 01/22/21 14:56 Dose: 1 appln Documented by: Multi-Ingredient Cream (Eucerin Cr 120 Gm Jar) 1 appln EXT Q24H PRN PRN Reason: DRY SKIN Stop: 02/20/21 13:56 Nitroglycerin (Nitroglycerin 2% Ointment 30gm Tube) 0.5 inch EXT NOW STA Stop: 01/22/21 16:53 Vitamin B Complex/Folic Acid (Nephrocaps) 1 cap PO QAM JOSE FRANCISCO Stop: 02/18/21 08:59 Last Admin: 01/22/21 08:08 Dose: 1 cap Documented by: Vitamin D (Cholecalciferol 1,000 Units 25 Mcg Tab) 4,000 units PO QAM JOSE FRANCISCO Stop: 02/18/21 08:59 Last Admin: 01/22/21 08:06 Dose: 4,000 units Documented by: (1) Hypertension Hypertension type: unspecified Qualified Code(s): I10 - Essential (primary) hypertension
[2021-01-22] MEDS: amLODIPine BESYLATE 5 MG TAB PO SCH (19:32)
[2021-01-22] MEDS: carvediloL 6.25 MG TAB PO SCH (19:34)
[2021-01-23] MEDS: hydrALAZINE HCL 20 MG/ML VIAL IV PRN (04:21)
[2021-01-23 06:33] LABS: Basophils # (auto) 0.03 K/uL (0-0.2); Basophils % (auto) 0.4 %; Eosinophils % (auto) 4.1 %; Hematocrit (blood only) 28.4 % (37-47); Hemoglobin 9.1 g/dL (12.0-16.0); Immature Granulocytes # (auto) 0.04 K/uL (0.00-0.02); Immature Granulocytes % (auto) 0.5 %; Lymphocytes # (auto) 0.84 K/uL (1.2-3.4); Lymphocytes % (auto) 11.4 %; Mean Corpuscular Hemoglobin 30.7 pg (25-34); Mean Corpuscular Volume 95.9 fL (80-100); Monocytes # (auto) 0.89 K/uL (0.11-0.59); Monocytes % (auto) 12.1 %; Neutrophils # (auto) 5.28 K/uL (1.4-6.5); Neutrophils % (auto) 71.5 %; Platelet Count 142 K/uL (130-400); RDW Coefficient of Variation 18.3 % (11.5-14.5); RDW Standard Deviation 63.9 fL (36.4-46.3); Red Blood Count 2.96 M/uL (4.2-5.4); White Blood Count 7.38 K/uL (4.8-10.8)
[2021-01-23 07:05] LABS: BUN Creatinine Ratio 7.4 (10-20); Calcium 8.7 mg/dl (8.5-10.1); Est GFR (African American) 13.5 ml/min; Est GFR (Non-African American) 11.6 ml/min; Potassium 4.1 mmol/L (3.5-5.1)
[2021-01-23] MEDS: CALCIUM ACETATE 667 MG CAP/TAB PO SCH ×3 (08:40→16:48)
[2021-01-23] MEDS: ATORVASTATIN 40 MG TAB PO SCH (08:41)
[2021-01-23] MEDS: carvediloL 6.25 MG TAB PO SCH ×2 (08:42→21:46)
[2021-01-23] MEDS: CLOPIDOGREL BISULFATE 75 MG TAB PO SCH (08:43)
[2021-01-23] MEDS: CHOLECALCIFEROL 1,000 UNITS 25 MCG TAB PO SCH (08:43)
[2021-01-23] MEDS: FUROSEMIDE 40 MG TAB PO SCH ×2 (08:44→17:00)
[2021-01-23] MEDS: NEPHROCAPS PO SCH (08:44)
[2021-01-23] MEDS: INSULIN ASPART 100 UNITS/ML 3 ML PEN SC SCH ×4 (08:45→21:47)
--- NOTE | 2021-01-23 11:08 | Nephrology Progress Note ---
Date of Service January 23, 2021 Assessment & Plan (1) End stage renal failure on dialysis: (2) Cardiopulmonary arrest: (3) Anemia due to chronic kidney disease: (4) Hypertension: Plan: ESRD on hemodialysis, admitted after cardiopulmonary arrest during dialysis. There was no clear etiology identified for the even. This is the 3rd similar event within 15 minutes in to dialysis. No arrhythmia noted. Hydralazine has been on hold. had dialysis yesterday, uneventful. Electrolyte acceptable. Blood pressure has been running high. -- Increase amlodipine to 10 milligrams p.o. daily, if blood pressure remains elevated, carvedilol can be increased as well. -- Epogen 53714 units given on dialysis on 01/22/2021, hemoglobin stable -- dose medications for GFR less than 10, continue on calcium as stated and Nephrocaps -- continue on MWF dialysis scheduled will follow Admission and Anticipated Discharge Date Admission Date: January 19, 2021 Subjective Jeri was seen this morning, she was comfortable sitting up in bed. Denied any symptom. Electrolyte has been acceptable. Had dialysis yesterday, uneventful. Blood pressure has been running high. Review of Systems Review of Systems: Detailed review of system was otherwise unremarkable. Physical Exam Constitutional: no acute distress Respiratory: normal respiratory effort, lungs clear to auscultation Cardiovascular: RRR, no murmur, no edema Neurologic: moves all extremities and awake; not confused Psychiatric: A+Ox3, euthymic affect Results & Data ([facility]) Vital Signs (Past 12 Hours) Vital Signs Temp Pulse Pulse Pulse Resp BP Pulse Ox 01/23/21 08:58 71 01/23/21 08:35 36.8 C 83 16 97 01/23/21 03:28 36.8 C 70 20 170/69 H 98 01/23/21 00:17 36.9 C 75 16 154/68 H 96 01/22/21 23:20 36.5 C 78 167/75 H PG Care Time/CCT Total # of Minutes Spent Total Time Spent with Patient: Total time spent is greater than 50% in coordination of care (as documented) at patient's floor/unit and/or counseling patient: Coding Level of Care Code 97748 Subseq Hosp Care Lvl 2 Diagnoses End stage renal failure on dialysis N18.6; Z99.2 Cardiopulmonary arrest I46.9 Anemia due to chronic kidney disease N18.9; D63.1 Hypertension I10 Hypertension type: unspecified (1) Hypertension Hypertension type: unspecified Qualified Code(s): I10 - Essential (primary) hypertension
--- NOTE | 2021-01-23 12:43 | Hospitalist Progress Note ---
Date of Service January 23, 2021 Assessment & Plan (1) Syncope and collapse: Plan: -Patient presenting from dialysis after an episode of unresponsiveness/cyanosis -CPR initiated with chest compressions only, no ACLS medications given -History of similar episode x 2 in November 2020 - felt to be secondary to hypotension during dialysis -Patient currently alert and oriented, VSS -sinus rhythm on telemetry -Troponin trended and no evidence of ACS-mildly elevated troponin likely related to renal disease and recent chest compressions -Considering transient hypotension from fluid shifts during hemodialysis sessions may have contributed to her unresponsive episode. -Holding a.m. hydralazine prior to treatment. -No more syncopal episode -Blood pressure running reasonably stable (2) Hypoxia: Plan: Hypoxia has improved after ultrafiltrate removal. And she is feeling much better today. As procalcitonin is remain negative, she is asymptomatic from a respiratory standpoint and hypoxia is improving, abnormality seen on CT was likely secondary to pulmonary edema and antibiotics will be stopped at this time. Saturating normal on 2 L nasal cannula oxygen (3) End stage renal failure on dialysis: Plan: -MWF schedule -Nephrology consult (patient follows with [facility]) -Continue routine renal medications -She was advised not to have any medicine for hypertension before dialysis -Will continue Dialysis as per Nephrology (4) Anemia due to chronic kidney disease: Plan: -Hgb 6.9 -No signs of bleeding -received one unit of blood since admission 01/12.6, repeat unit ordered 01/20 with hemodialysis. Posttransfusion H&H this morning was 9.2/28.7, and appropriate response. -cont to monitor, continue Epogen per nephrology -Hemoglobin remains at 9.0 as of 01/22/2021 (5) Chronic diastolic CHF (congestive heart failure): Plan: -Volume managed with furosemide and dialysis with ultrafiltrate removal, euvolemic on exam today. Appears compensated. Continue Lasix and management of volume with ultrafiltrate removal. (6) Hypertension: Plan: Blood pressure elevated on current therapy including hydralazine, Coreg, Lasix. Per my conversation with nephrology, we will increase hydralazine to 75 mg p.o. 3 times daily. We will continue to hold predialysis treatment hydralazine dose and ensure low- salt diet. Blood pressure has been very high since this morning She was given 1 dose of intravenous paralyzing and repeat blood pressure at around 4:30 PM was 200/78 She will have dialysis tonight She was given half inch Nitropaste to reduce blood pressure. Medications have been adjusted (7) Thrombocytopenia: Plan: improved since admission, appears to be a secondary process but uncertain etiology, new from her normal baseline, notably started plavix a few months ago as secondary stroke prophylaxis. HIT panel still pending. Cont to monitor. Hold heparin until HIT panel returns normal. 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 (10) DVT prophylaxis: Plan: SCDs due to thrombocytopenia, if HIT panel comes back normal, seriously consider starting chemoprophylaxis for DVT Full Code Dispo-to home when medically stable Admission and Anticipated Discharge Date Admission Date: January 19, 2021 Subjective 01/22/2021 The patient was seen and examined in telemetry unit She has been feeling much better This is a second or third admission due to the same reason of hypotensive episode during dialysis as an outpatient Will not give any heparin as HIT test is positive 01/23/2021 Remains stable and wants to go home Blood pressure remains reasonably stable Review of Systems Review of Systems: All systems reviewed and are unremarkable except as noted below Physical Exam Physical Exam: Sitting at the edge of the bed without any acute symptoms Constitutional: well developed, well nourished and + obese; not ill appearing Eyes: PERRL, conjunctivae normal, anicteric sclerae ENMT: external ear and nose normal, oropharynx normal Neck: trachea midline, no thyromegaly Respiratory: no respiratory distress Auscultation: + crackles (Minimal bibasilar crackles) Cardiovascular: Rate/Rhythm: regular rate and regular rhythm; not tachycardic Heart Sounds: normal S1 and normal S2; no murmur Gastrointestinal (Abdomen): Inspection/Auscultation: normal bowel sounds; abdomen not distended Percussion/Palpation: abdomen soft; abdomen nontender Lymphatic: no cervical or axillary lymphadenopathy Results & Data Results & Data ([facility]) Vital Signs (Past 12 Hours) Vital Signs Temp Pulse Pulse Pulse Resp BP Pulse Ox 01/23/21 11:44 36.4 C L 68 18 151/61 H 98 01/23/21 08:58 71 01/23/21 08:35 36.8 C 83 16 97 01/23/21 03:28 36.8 C 70 20 170/69 H 98 (1) Hypertension Hypertension type: unspecified Qualified Code(s): I10 - Essential (primary) hypertension
--- NOTE | 2021-01-23 12:55 | Cardiology Progress Note ---
Date of Service January 23, 2021 Assessment & Plan (1) Syncope and collapse: (2) Elevated troponin: (3) Anemia: (4) Chronic diastolic CHF (congestive heart failure): Plan: 65-year-old female presents with recurrent loss of consciousness after initiation of dialysis. Episode similar to prior occurrence in November. Possibly related to volume shifts during dialysis. Recent Lexiscan nuclear stress test without evidence of inducible ischemia. AED applied with no shock indicating suggesting the loss of consciousness was not secondary to ventricular tachycardia or ventricular fibrillation. EKG and echocardiogram did not suggest an acute ischemic event as cause for hemodynamic collapse. Telemetry since admission without arrhythmias. Recommendations: Medications adjusted last evening. Coreg increased to 6.25 mg twice per day. Amlodipine added at 5 mg/day in the evening. Would not increase further due to chronic stasis edema. We will resume hydralazine at 25 mg 3 times daily with medication to be held prior to dialysis Admission and Anticipated Discharge Date Admission Date: January 19, 2021 Subjective Patient seen and examined, chart, medications, telemetry reviewed. Main complaint persistent lower extremity leg pain, restless syndrome No further dizziness lightness syncope or near syncope no chest pains. Tolerated heme dialysis last night with hydralazine held prior to procedure Coreg increased to 6.25 mg twice per day last night. Amlodipine 5 mg p.o. nightly added yesterday Review of Systems Review of Systems: All systems reviewed & are unremarkable except as noted in Subjective Physical Exam Constitutional: + obese; no acute distress Eyes: PERRL, conjunctivae normal, anicteric sclerae ENMT: external ear and nose normal, oropharynx normal Neck: trachea midline, no thyromegaly Respiratory: normal respiratory effort, lungs clear to auscultation Auscultation: + diminished lung sounds Cardiovascular: Rate/Rhythm: regular rate and regular rhythm Heart Sounds: normal S1 and normal S2; no murmur Extremities: + edema (1+) Gastrointestinal (Abdomen): normal bowel sounds, soft, nontender, no hepatosplenomegaly Musculoskeletal: no cyanosis or clubbing, extremities motor strength 5/5 Head/Neck/Chest: + localized rib tenderness Skin: no rashes, warm and dry Psychiatric: Orientation: oriented x 3 Results & Data ([facility]) Vital Signs (Past 12 Hours) Vital Signs Temp Pulse Pulse Pulse Resp BP Pulse Ox 01/23/21 11:44 36.4 C L 68 18 151/61 H 98 01/23/21 08:58 71 01/23/21 08:35 36.8 C 83 16 97 01/23/21 03:28 36.8 C 70 20 170/69 H 98 (1) Anemia Anemia type: unspecified type Qualified Code(s): D64.9 - Anemia, unspecified
[2021-01-23] MEDS: hydrALAZINE HCL 25 MG TAB PO SCH ×2 (13:07→21:46)
[2021-01-23] MEDS ORDERED: hydrALAZINE HCL 25 MG TAB PO SCH (14:00)
[2021-01-23] MEDS ORDERED: hydrALAZINE HCL 25 MG TAB PO STA (14:34)
[2021-01-23] MEDS: EUCERIN CR 120 GM JAR EXT SCH (14:39)
[2021-01-23] MEDS ORDERED: amLODIPine BESYLATE 5 MG TAB PO ONE (16:00)
[2021-01-23] MEDS: amLODIPine BESYLATE 5 MG TAB PO SCH (21:10)
[2021-01-24 05:53] LABS: Hematocrit (blood only) 28.7 % (37-47); Hemoglobin 9.3 g/dL (12.0-16.0); Mean Corpuscular Hgb Conc 32.4 g/dL (32-36); Mean Corpuscular Volume 95.7 fL (80-100); Mean Platelet Volume 9.2 fL (7.4-10.4); Nucleated RBC # (auto) 0.02 K/uL (0-0); Nucleated RBC % (auto) 0.2 %; Platelet Count 140 K/uL (130-400); RDW Standard Deviation 62.8 fL (36.4-46.3); White Blood Count 8.22 K/uL (4.8-10.8)
[2021-01-24 06:54] LABS: Albumin Level 3.5 gm/dl (3.4-5.0); BUN Creatinine Ratio 8.8 (10-20); Calcium 8.8 mg/dl (8.5-10.1); Est GFR (African American) 8.9 ml/min; Est GFR (Non-African American) 7.7 ml/min; Phosphorus 4.2 mg/dl (2.5-4.9); Potassium 4.2 mmol/L (3.5-5.1)
[2021-01-24] MEDS: ATORVASTATIN 40 MG TAB PO SCH (08:09)
[2021-01-24] MEDS: CALCIUM ACETATE 667 MG CAP/TAB PO SCH ×2 (08:09→12:12)
[2021-01-24] MEDS: CHOLECALCIFEROL 1,000 UNITS 25 MCG TAB PO SCH (08:10)
[2021-01-24] MEDS: CLOPIDOGREL BISULFATE 75 MG TAB PO SCH (08:10)
[2021-01-24] MEDS: FUROSEMIDE 40 MG TAB PO SCH (08:11)
[2021-01-24] MEDS: INSULIN ASPART 100 UNITS/ML 3 ML PEN SC SCH ×2 (08:11→12:12)
[2021-01-24] MEDS: NEPHROCAPS PO SCH (08:11)
[2021-01-24] MEDS: hydrALAZINE HCL 25 MG TAB PO SCH (08:11)
[2021-01-24] MEDS ORDERED: carvediloL 12.5 MG TAB PO SCH (09:00)
--- NOTE | 2021-01-24 10:39 | Nephrology Progress Note ---
Date of Service January 24, 2021 Assessment & Plan (1) End stage renal failure on dialysis: (2) Cardiopulmonary arrest: (3) Anemia due to chronic kidney disease: (4) Hypertension: Plan: ESRD on hemodialysis, admitted after cardiopulmonary arrest during dialysis. There was no clear etiology identified for the even. This is the 3rd similar event within 15 minutes in to dialysis. No arrhythmia noted. Hydralazine has been on hold. had dialysis yesterday, uneventful. Electrolyte acceptable. Blood pressure has been running high. -- continue amlodipine 10 milligrams p.o. daily, if blood pressure remains elevated, carvedilol can be increased as well. -- Epogen 01622 units given on dialysis on 01/22/2021, hemoglobin stable -- dose medications for GFR less than 10, continue on calcium as stated and Nephrocaps -- continue on MWF dialysis scheduled --OK to DC, pt knows to hold antihypertensive meds and any other non prescription meds prior to HD. will follow Admission and Anticipated Discharge Date Admission Date: January 19, 2021 Joan Wilcox was seen this morning, she remain asymptomatic, comfortable sitting up in bed. Electrolyte has been acceptable. Blood pressure has been running high. Review of Systems Review of Systems: Detailed review of system was otherwise unremarkable. Physical Exam Constitutional: no acute distress Respiratory: normal respiratory effort, lungs clear to auscultation Cardiovascular: RRR, no murmur, no edema Neurologic: moves all extremities and awake; not confused Psychiatric: A+Ox3, euthymic affect Results & Data ([facility]) Vital Signs (Past 12 Hours) Vital Signs Temp Pulse Pulse Pulse Resp BP Pulse Ox 01/24/21 07:52 67 01/24/21 07:25 36.6 C 62 19 177/75 H 100 01/24/21 04:37 36.7 C 73 20 147/62 H 96 01/23/21 23:33 36.8 C 81 24 165/70 H 91 PG Care Time/CCT Total # of Minutes Spent Total Time Spent with Patient: Total time spent is greater than 50% in coordination of care (as documented) at patient's floor/unit and/or counseling patient: Coding Level of Care Code 97107 Subseq Hosp Care Lvl 2 Diagnoses End stage renal failure on dialysis N18.6; Z99.2 Cardiopulmonary arrest I46.9 Anemia due to chronic kidney disease N18.9; D63.1 Hypertension I10 Hypertension type: unspecified (1) Hypertension Hypertension type: unspecified Qualified Code(s): I10 - Essential (primary) hypertension
--- NOTE | 2021-01-24 12:03 | Hospitalist Progress Note ---
Date of Service January 24, 2021 Assessment & Plan (1) Syncope and collapse: Plan: -Patient presenting from dialysis after an episode of unresponsiveness/cyanosis -CPR initiated with chest compressions only, no ACLS medications given -History of similar episode x 2 in November 2020 - felt to be secondary to hypotension during dialysis -Patient currently alert and oriented, VSS -sinus rhythm on telemetry -Troponin trended and no evidence of ACS-mildly elevated troponin likely related to renal disease and recent chest compressions -Considering transient hypotension from fluid shifts during hemodialysis sessions may have contributed to her unresponsive episode. -Holding a.m. hydralazine prior to treatment. -No more syncopal episode -Blood pressure running reasonably stable -She was advised to hold all of her blood pressure medications before each dialysis (2) Hypoxia: Plan: Hypoxia has improved after ultrafiltrate removal. And she is feeling much better today. As procalcitonin is remain negative, she is asymptomatic from a respiratory standpoint and hypoxia is improving, abnormality seen on CT was likely secondary to pulmonary edema and antibiotics will be stopped at this time. Saturating normal on 2 L nasal cannula oxygen (3) End stage renal failure on dialysis: Plan: -MWF schedule -Nephrology consult (patient follows with [facility]) -Continue routine renal medications -She was advised not to have any medicine for hypertension before dialysis -Will continue Dialysis as per Nephrology (4) Anemia due to chronic kidney disease: Plan: -Hgb 6.9 -No signs of bleeding -received one unit of blood since admission 01/12.6, repeat unit ordered 01/20 with hemodialysis. Posttransfusion H&H this morning was 9.2/28.7, and appropriate response. -cont to monitor, continue Epogen per nephrology -Hemoglobin remains at 9.0 as of 01/22/2021 (5) Chronic diastolic CHF (congestive heart failure): Plan: -Volume managed with furosemide and dialysis with ultrafiltrate removal, euvolemic on exam today. Appears compensated. Continue Lasix and management of volume with ultrafiltrate removal. -Chest clear on auscultation and no signs of fluid overload (6) Hypertension: Plan: Blood pressure elevated on current therapy including hydralazine, Coreg, Lasix. Per my conversation with nephrology, we will increase hydralazine to 75 mg p.o. 3 times daily. We will continue to hold predialysis treatment hydralazine dose and ensure low- salt diet. Blood pressure has been very high since this morning She was given 1 dose of intravenous paralyzing and repeat blood pressure at around 4:30 PM was 200/78 She will have dialysis tonight She was given half inch Nitropaste to reduce blood pressure. Medications have been adjusted Blood pressure remains stable since this morning which is around systolic 140s Strongly advised to hold all of the blood pressure medications before each hemodialysis (7) Thrombocytopenia: Plan: improved since admission, appears to be a secondary process but uncertain etiology, new from her normal baseline, notably started plavix a few months ago as secondary stroke prophylaxis. HIT panel still pending. Cont to monitor. Hold heparin until HIT panel returns normal. 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 (10) DVT prophylaxis: Plan: SCDs due to thrombocytopenia, if HIT panel comes back normal, seriously consider starting chemoprophylaxis for DVT Full Code Dispo-to home when medically stable Plan: Charge home this afternoon Admission and Anticipated Discharge Date Admission Date: January 19, 2021 Subjective 01/22/2021 The patient was seen and examined in telemetry unit She has been feeling much better This is a second or third admission due to the same reason of hypotensive episode during dialysis as an outpatient Will not give any heparin as HIT test is positive 01/23/2021 Remains stable and wants to go home Blood pressure remains reasonably stable 01/24/2021 The patient was seen and examined in telemetry unit She remains stable and the blood pressure is running around 140s this morning Denies any symptoms and has been ambulating in the room without any difficulties To be discharged home this afternoon Review of Systems Review of Systems: All systems reviewed and are unremarkable except as noted below Physical Exam Physical Exam: Sitting at the edge of the bed without any acute symptoms Constitutional: well developed, well nourished and + obese; not ill appearing Eyes: PERRL, conjunctivae normal, anicteric sclerae ENMT: external ear and nose normal, oropharynx normal Neck: trachea midline, no thyromegaly Respiratory: no respiratory distress Auscultation: + crackles (Minimal bibasilar crackles) Cardiovascular: Rate/Rhythm: regular rate and regular rhythm; not tachycardic Heart Sounds: normal S1 and normal S2; no murmur Gastrointestinal (Abdomen): Inspection/Auscultation: normal bowel sounds; abdomen not distended Percussion/Palpation: abdomen soft; abdomen nontender Musculoskeletal: No acute arthritis in any joint Neurologic: Alert, awake and oriented x3 Lymphatic: no cervical or axillary lymphadenopathy Results & Data Results & Data ([facility]) Vital Signs (Past 12 Hours) Vital Signs Temp Pulse Pulse Pulse Resp BP Pulse Ox 01/24/21 11:33 36.5 C 60 19 139/76 94 01/24/21 10:46 36.5 C 62 16 131/60 96 01/24/21 07:52 67 01/24/21 07:25 36.6 C 62 19 177/75 H 100 01/24/21 04:37 36.7 C 73 20 147/62 H 96 Laboratory Results Short CBC 01/24/21 Range/Units 05:24 WBC 8.22 (4.8-10.8) K/uL Hgb 9.3 L (12.0-16.0) g/dL Hct 28.7 L (37-47) % Plt Count 140 (130-400) K/uL BMP 01/24/21 05:24 Sodium 137 Potassium 4.2 Chloride 107 Carbon Dioxide 21 BUN 48 H D Creatinine 5.39 H* D Glucose 134 H Calcium 8.8 Liver Function 01/24/21 Range/Units 05:24 Albumin 3.5 (3.4-5.0) gm/dl Medications Administered Current Inpatient Medications Acetaminophen (Acetaminophen 325 Mg Tab) 650 mg PO Q4H PRN PRN Reason: Pain or Fever Stop: 02/17/21 15:52 Last Admin: 01/20/21 23:59 Dose: 650 mg Documented by: Amlodipine Besylate (Amlodipine Besylate 5 Mg Tab) 10 mg PO HS JOSE FRANCISCO Stop: 02/23/21 20:59 Atorvastatin Calcium (Atorvastatin 40 Mg Tab) 40 mg PO DAILY JOSE FRANCISCO Stop: 02/18/21 08:59 Last Admin: 01/24/21 08:09 Dose: 40 mg Documented by: Calcium Acetate (Calcium Acetate 667 Mg Cap/Tab) 667 mg PO TIDM JOSE FRANCISCO Stop: 02/17/21 16:59 Last Admin: 01/24/21 08:09 Dose: 667 mg Documented by: Carvedilol (Carvedilol 12.5 Mg Tab) 12.5 mg PO BID JOSE FRANCISCO Stop: 02/23/21 08:59 Last Admin: 01/24/21 09:26 Dose: 12.5 mg Documented by: Clopidogrel Bisulfate (Clopidogrel Bisulfate 75 Mg Tab) 75 mg PO DAILY JOSE FRANCISCO Stop: 02/18/21 08:59 Last Admin: 01/24/21 08:10 Dose: 75 mg Documented by: Dextrose (Dextrose 50% 50 Ml Syringe) 25 - 50 ml IV UD PRN; Protocol PRN Reason: Hypoglycemia Protocol Stop: 02/17/21 15:52 Furosemide (Furosemide 40 Mg Tab) 40 mg PO [id number] JOSE FRANCISCO Stop: 02/17/21 16:59 Last Admin: 01/24/21 08:11 Dose: 40 mg Documented by: Glucagon (Glucagon For Inj 1 Mg Vial) 1 mg SQ UD PRN; Protocol PRN Reason: Hypoglycemia Protocol Stop: 02/17/21 15:52 Glucose (Glucose 10 Tabs/Tube) 4 - 8 tabs PO UD PRN; Protocol PRN Reason: Hypoglycemia Protocol Stop: 02/17/21 15:52 Glucose (Glucose 40% Gel 15 Gm Tube) 15 - 30 gm PO UD PRN; Protocol PRN Reason: Hypoglycemia Protocol Stop: 02/17/21 15:52 Hydralazine HCl (Hydralazine Hcl 20 Mg/Ml Vial) 10 mg IV Q6H PRN PRN Reason: SBP>160 Stop: 02/20/21 19:59 Last Admin: 01/23/21 04:21 Dose: 10 mg Documented by: Hydralazine HCl (Hydralazine Hcl 25 Mg Tab) 25 mg PO TID JOSE FRANCISCO Stop: 02/22/21 13:59 Last Admin: 01/24/21 08:11 Dose: 25 mg Documented by: Insulin Aspart (Insulin Aspart 100 Units/Ml 3 Ml Pen) 0 units SC ACHS [facility] Stop: 02/17/21 16:29 Last Admin: 01/24/21 08:11 Dose: 4 units Documented by: Miscellaneous (Carbohydrates For Hypoglycemia ) 15 - 30 gm PO UD PRN PRN Reason: Hypoglycemia Protocol Stop: 02/17/21 15:52 Multi-Ingredient Cream (Eucerin Cr 120 Gm Jar) 1 appln EXT Q24H JOSE FRANCISCO Stop: 02/20/21 13:59 Last Admin: 01/23/21 14:39 Dose: Not Given Documented by: Multi-Ingredient Cream (Eucerin Cr 120 Gm Jar) 1 appln EXT Q24H PRN PRN Reason: DRY SKIN Stop: 02/20/21 13:56 Vitamin B Complex/Folic Acid (Nephrocaps) 1 cap PO QAM JOSE FRANCISCO Stop: 02/18/21 08:59 Last Admin: 01/24/21 08:11 Dose: 1 cap Documented by: Vitamin D (Cholecalciferol 1,000 Units 25 Mcg Tab) 4,000 units PO QAM JOSE FRANCISCO Stop: 02/18/21 08:59 Last Admin: 01/24/21 08:10 Dose: 4,000 units Documented by: (1) Hypertension Hypertension type: unspecified Qualified Code(s): I10 - Essential (primary) hypertension
--- NOTE | 2021-01-24 15:51 | Discharge Summary ---
Date of Service January 24, 2021 Admission HPI Per Admitting Provider 65 year old female with PMH DM type II, ESRD on HD MWF, HTN, history of CVA, other problems listed below who presents to the ED from dialysis for evaluation of syncope versus possible cardiac arrest. Patient had 2 admissions in November 2020 for very similar presentation. It was felt as though episodes were secondary to hypotension during dialysis. During last admission, patient underwent brain MRI that showed a few small acute infarcts in the left cerebral hemisphere. Patient was started on aspirin and Plavix x 21 days and was to continue Plavix only. EEG was unremarkable. Lexiscan was negative for inducib le ischemia however patient hypotensive response. Patient was discharged to [facility] for rehab, she returned home about 2 weeks ago. Today while at dialysis, about 20 minutes into her session, patient became unresponsive and cyanotic. CPR was initiated with chest compressions only, no defibrillation or medications were given. No seizure-like activity reported. Patient was sent to the ED for further evaluation. Patient reports she remembers waking up in the ambulance. Reports she otherwise has been feeling well recently. Reports some current chest discomfort from CPR, denies any other preceding chest pain. No shortness of breath. Reports compliance with continuous 2L oxygen. No other recent illnesses, fevers, chills. She denies abdominal pain, nausea, vomiting, diarrhea (noted that nurse found patient incontinent of diarrhea). No urinary symptoms. In the ED, patient is awake, alert, oriented. She is hemodynamically stable. Labs show Hgb 6.9, platelets 75K. Troponin 0.112, EKG shows NSR. Admission Exam Per Admitting Provider Constitutional: WD/WN, vitals as above Eyes: PERRL, conjunctivae normal, anicteric sclerae ENMT: external ear and nose normal, oropharynx normal Respiratory: normal respiratory effort; no respiratory distress Auscultation: + diminished lung sounds (Bilaterally) Cardiovascular: Rate/Rhythm: regular rate and regular rhythm Vessels: normal peripheral pulses Extremities: no edema Chest (Breasts): Chest: + vascular access device or port (Tunnelled dialysis catheter in place to right chest) Gastrointestinal (Abdomen): normal bowel sounds, soft, nontender, no hepatosplenomegaly Musculoskeletal: no cyanosis or clubbing, extremities motor strength 5/5 right foot in boot Skin: no rashes, warm and dry Neurologic: PERRL, EOMI, accommodation nl, no face palsy, no dysarthria Psychiatric: A+Ox3, euthymic affect Principal Diagnosis Syncope and collapse, recurrent events with dialysis, end-stage renal disease on hemodialysis, uncontrolled hypertension Discharge Exam Constitutional well developed, well nourished and + obese; not ill appearing Eyes PERRL, conjunctivae normal, anicteric sclerae ENMT external ear and nose normal, oropharynx normal Neck trachea midline, no thyromegaly Respiratory no respiratory distress Auscultation: + crackles (Minimal bibasilar crackles) Cardiovascular Rate/Rhythm: regular rate and regular rhythm; not tachycardic Heart Sounds: normal S1 and normal S2; no murmur Gastrointestinal (Abdomen) Inspection/Auscultation: normal bowel sounds; abdomen not distended Percussion/Palpation: abdomen soft; abdomen nontender Lymphatic no cervical or axillary lymphadenopathy Discharge Data Allergies Allergy/AdvReac Type Severity Reaction Status Date / Time daptomycin AdvReac sob Verified 12/04/20 15:28 Consultations 01/18/21 14:08 ED Decision to Admit Stat 01/18/21 14:56 Consult Nephrology Routine 01/18/21 15:01 Consult Cardiology Routine Ordered Studies 01/18/21 13:20 CT abd pelvis wo con Stat CT chest diagnostic wo con Stat 01/18/21 14:08 CT head/brain wo con Stat 01/19/21 07:00 US liver Routine Hospital Course (1) Syncope and collapse: -Patient presenting from dialysis after an episode of unresponsiveness/cya nosis -CPR initiated with chest compressions only, no ACLS medications given -History of similar episode x 2 in November 2020 - felt to be secondary to hypotension during dialysis -Patient currently alert and oriented, VSS -sinus rhythm on telemetry -Troponin trended and no evidence of ACS-mildly elevated troponin likely related to renal disease and recent chest compressions -Considering transient hypotension from fluid shifts during hemodialysis sessions may have contributed to her unresponsive episode. -Holding a.m. hydralazine prior to treatment. -No more syncopal episode -Blood pressure running reasonably stable -She was advised to hold all of her blood pressure medications before each dialysis (2) Hypoxia: Hypoxia has improved after ultrafiltrate removal. And she is feeling much better today. As procalcitonin is remain negative, she is asymptomatic from a respiratory standpoint and hypoxia is improving, abnormality seen on CT was likely secondary to pulmonary edema and antibiotics will be stopped at this time. Saturating normal on 2 L nasal cannula oxygen (3) End stage renal failure on dialysis: -MWF schedule -Nephrology consult (patient follows with [facility]) -Continue routine renal medications -She was advised not to have any medicine for hypertension before dialysis -Will continue Dialysis as per Nephrology (4) Anemia due to chronic kidney disease: -Hgb 6.9 -No signs of bleeding -received one unit of blood since admission 01/12.6, repeat unit ordered 01/20 with hemodialysis. Posttransfusion H&H this morning was 9.2/28.7, and appropriate response. -cont to monitor, continue Epogen per nephrology -Hemoglobin remains at 9.0 as of 01/22/2021 (5) Chronic diastolic CHF (congestive heart failure): -Volume managed with furosemide and dialysis with ultrafiltrate removal, euvolemic on exam today. Appears compensated. Continue Lasix and management of volume with ultrafiltrate removal. -Chest clear on auscultation and no signs of fluid overload (6) Hypertension: Blood pressure elevated on current therapy including hydralazine, Coreg, Lasix. Per my conversation with nephrology, we will increase hydralazine to 75 mg p.o. 3 times daily. We will continue to hold predialysis treatment hydralazine dose and ensure low- salt diet. Blood pressure has been very high since this morning She was given 1 dose of intravenous paralyzing and repeat blood pressure at around 4:30 PM was 200/78 She will have dialysis tonight She was given half inch Nitropaste to reduce blood pressure. Medications have been adjusted Blood pressure remains stable since this morning which is around systolic 140s Strongly advised to hold all of the blood pressure medications before each hemodialysis (7) Thrombocytopenia: improved since admission, appears to be a secondary process but uncertain etiology, new from her normal baseline, notably started plavix a few months ago as secondary stroke prophylaxis. HIT panel still pending. Cont to monitor. Hold heparin until HIT panel returns normal. 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 (10) DVT prophylaxis: SCDs due to thrombocytopenia, if HIT panel comes back normal, seriously consider starting chemoprophylaxis for DVT Full Code Dispo-to home when medically stable Charge home this afternoon Total Time Total Time Spent Total Time Spent (In Minutes): 40 minutes Discharge Plan Discharge Items Patient Disposition: Home - Home Health Services Reason For Visit: SYNCOPE Discharge Diagnosis: Syncope and collapse, recurrent events with dialysis, end-stage renal disease on hemodialysis, uncontrolled hypertension Condition on Discharge: Fair Activity: Resume your previous activity Non-emergency contact: Primary Care Provider Call non-emergency contact if: you have any medication questions and your symptoms worsen Follow-up/Referrals: Melissa Bronson DO [Primary Care Provider] - (Will call you on Monday with an appointment within 7 days of discharge) Diet: Dialysis Renal and Low Sodium (2gm) Addtl Attending Provider Instructions: Please take precautions to avoid falls Your hydralazine has been decreased to 25mg TID Your amlodipine and carvedilol have been increased Continue home oxygen as advised Continue hemodialysis as an outpatient Hold all of your blood pressure medications before each hemodialysis Pending Studies at Discharge: No Stand-Alone Forms: My [employer], Smoking Cessation Medications and DC Order Prescriptions: New amlodipine [Norvasc] 5 mg Tablet 10 mg PO HS Qty: 60 RF: 0 hydralazine 25 mg tablet 25 mg PO TID Qty: 90 RF: 0 carvedilol 12.5 mg Tablet 12.5 mg PO BID Qty: 60 RF: 0 Continued cholecalciferol (vitamin D3) [Vitamin D3] 2,000 unit Capsule 4,000 unit PO QAM RF: 0 furosemide 40 mg tablet 40 mg PO BID RF: 0 coenzyme Q10 [Co Q-10] 100 mg Capsule 100 mg PO QAM RF: 0 calcium acetate(phosphat bind) 667 mg Capsule 667 mg PO TIDM Qty: 90 RF: 0 Renal Caps 1 mg Capsule 1 cap PO QAM Qty: 90 RF: 0 multivitamin Tablet 1 tab PO QAM RF: 0 atorvastatin 40 mg tablet 40 mg PO DAILY RF: 0 Basaglar KwikPen U-100 Insulin 100 unit/mL (3 mL) insulin pen 30 unit SUBCUT HS RF: 0 clopidogrel 75 mg tablet 75 mg PO DAILY RF: 0 Discontinued carvedilol 3.125 mg Tablet 3.125 mg PO BID Qty: 30 RF: 0 hydralazine 50 mg Tablet 50 mg PO TID Qty: 90 RF: 0 Discharge Orders: Discharge Order (Routine); Ordered 01/23/21 Ordered By: Emmanuel Miranda/Other Patient Handouts: Taking a Beta-Nathanael, Taking Amlodipine Admission Data Admit Date/Time: 01/19/21 10:52 Attending Provider: Emmanuel Horton Admit Provider: Maria Dolores Lee Primary Care Provider: Melissa Bronson Other Providers: Pedro Clark ; Constantin Bronson Sabrina M. Other Interventions: Discharge Summary Assessment (RN) Last Done: 01/24/21 12:30
[2021-01-24] MEDS ORDERED: amLODIPine BESYLATE 5 MG TAB PO SCH (21:00)
== END 2021-01-24 13:34 | disposition home health service (06) | DRG 312 ==
LOC: 2S 11:31 → ED 11:31 → 2S 15:02 → SUATTDRO 01-19 10:52 → 2S 01-19 18:18

== ENCOUNTER 2021-04-13 15:00 | Inpatient (IN) ==
[2021-04-13 16:58] LABS: Basophils # (auto) 0.02 K/uL (0-0.2); Basophils % (auto) 0.3 %; Eosinophils # (auto) 0.26 K/uL (0-0.5); Eosinophils % (auto) 3.8 %; Hematocrit (blood only) 37.1 % (37-47); Hemoglobin 11.7 g/dL (12.0-16.0); Immature Granulocytes # (auto) 0.02 K/uL (0.00-0.02); Immature Granulocytes % (auto) 0.3 %; Lymphocytes # (auto) 0.67 K/uL (1.2-3.4); Lymphocytes % (auto) 9.7 %; Mean Corpuscular Hemoglobin 32.2 pg (25-34); Mean Corpuscular Hgb Conc 31.5 g/dL (32-36); Mean Corpuscular Volume 102.2 fL (80-100); Mean Platelet Volume 9.4 fL (7.4-10.4); Monocytes # (auto) 0.81 K/uL (0.11-0.59); Monocytes % (auto) 11.8 %; Neutrophils # (auto) 5.11 K/uL (1.4-6.5); Neutrophils % (auto) 74.1 %; Platelet Count 192 K/uL (130-400); RDW Coefficient of Variation 15.9 % (11.5-14.5); RDW Standard Deviation 59.7 fL (36.4-46.3); Red Blood Count 3.63 M/uL (4.2-5.4); White Blood Count 6.89 K/uL (4.8-10.8)
[2021-04-13 17:18] LABS: Alanine Aminotransferase 30 U/L (12-78); Albumin Level 4.2 gm/dl (3.4-5.0); Aspartate Aminotransferase 21 U/L (15-37); BUN Creatinine Ratio 9.4 (10-20); Blood Urea Nitrogen 36 mg/dl (7-18); Calcium 9.7 mg/dl (8.5-10.1); Carbon Dioxide 25 mmol/L (21-32); Chloride 106 mmol/L (98-107); Est GFR (African American) 13.6 ml/min; Est GFR (Non-African American) 11.8 ml/min; Glucose 75 mg/dl (70-99); Potassium 4.5 mmol/L (3.5-5.1); Sodium 138 mmol/L (136-145)
[2021-04-13 17:21] LABS: Albumin Globulin Ratio 0.8 (0.9-2); Alkaline Phosphatase 103 U/L (45-117); Bilirubin,Total 0.6 mg/dl (0.2-1); Globulin 5.2 gm/dl (2.5-4.0); Total Protein 9.4 gm/dl (6.4-8.2)
--- NOTE | 2021-04-13 19:46 | Emergency Department Note ---
Impression & Plan Diabetic infection of right foot, Type 2 diabetes mellitus, Diabetic neuropathy, End stage renal failure on dialysis ED Provider Note Provider: Rian Adan MD DATE OF SERVICE: 04/13/2021 CHIEF COMPLAINT: Foot wound HISTORY OF PRESENT ILLNESS: Patient is a 65-year-old female with a history of CVA, CHF, end-stage renal disease on dialysis, type 2 diabetes, diabetic neuropathy, and foot osteomyelitis presenting here today referred from her dialysis center for evaluation of a wound on her right foot. Given the patient's diabetic neuropathy she does not report any significant sensation in the feet. Denies pain in the foot given this. Patient hospitalized in April 2019 with osteomyelitis in the right foot placed on daptomycin and seen by ID. This was treated with antibiotics and improved. Patient has chronically used a boot on this leg due to prior injury. No fevers or chills reported. No new trauma reported. Feet are checked monthly at dialysis and wounds newly noted and thus likely developed over the past 3 to 4 weeks. Patient again with minimal sensation of the lower feet and denies pain. Denies significant fatigue. Family at bedside states they had to spend some time convincing the patient to come to the hospital today as she did not want to. REVIEW OF SYSTEMS: A total of 10 review of systems was obtained and negative except as stated above in the HPI. PAST MEDICAL HISTORY: As noted above MEDICATIONS: Reviewed home medications SOCIAL HISTORY:lives at home PHYSICAL EXAM: GENERAL: alert and oriented in no acute distress on stretcher on chronic nasal cannula oxygen Head: normocephalic and atraumatic EYES: No injection, discharge or icterus. NECK: Trachea midline. LUNGS: Airway patent. No retractions or tachypnea HEART: Regular rate and rhythm. ABDOMEN: Soft and non-tender, without guarding or rebound. SKIN: Acyanotic, warm, dry EXTREMITIES: Patient with chronic deformity to the right lower extremity with some trace swelling. There is an approximately 2 x 1 cm area of wound on the right mid lateral foot as well as a smaller 1 x 1 cm wound of the mid to lateral right heel. Ulceration with some erythema here. Healed surgical scar to the right ankle. Diminished sensation in the bilateral feet reportedly at baseline. NEUROLOGICAL: No aphasia. No facial droop or slurred speech. Diminished sensation of the bilateral lower extremities to approximately the mid smith. Patient's laboratory studies and imaging reviewed. Differential includes Cellulitis, abscess, MRSA infection, DVT, necrotizing fasciitis, dermatitis, drug eruption, allergic reaction, as well as other pathologies. IMPRESSION/MEDICAL DECISION MAKING: Seen with the resident physician. Diabetic end-stage renal with history of wound and osteomyelitis of the right foot. Decreased sensation due to neuropathy. Wound on the right foot is reoccurred with addition of a slightly lower wound on the right heel no fever or elevated white blood cell count. Doub t sepsis. No significant electrolyte abnormalities did have dialysis earlier today. History of coag negative staph from records. ESR mildly elevated CRP is more elevated. X-ray per radiology without evidence of osseous changes. Patient is significantly high risk given or diabetes and neuropathy for worsening of this wound and likely infection. Question of there could be an occult osteo here as this wound is likely there for several weeks (3-4) with history of deeper infection in 2019. Long discussion with patient and patient's family at bedside. Recommend further care here. Patient was agreeable with this eventually although she states she really only wants to be here a day or 2. Discussed with pharmacy and will place on vancomycin at this time. Hospitalist contacted and added Cefepime for broader coverage. DIAGNOSIS: Right diabetic foot wound DISPOSITION: Hospitalist will evaluate Patient was agreeable with this plan. Past Med/Surg History Medical History Anemia Callus Chronic diastolic CHF (congestive heart failure) Closed fracture of distal end of right fibula and tibia Diabetes mellitus with diabetic polyneuropathy Diabetic foot ulcer Diabetic neuropathy Dyslipidemia End stage renal failure on dialysis Foot osteomyelitis, right History of CVA (cerebrovascular accident) History of depression Hypertension Posterior capsular opacification Type 2 diabetes mellitus Ulcer of right midfoot Vitamin D deficiency Surgical History History of appendectomy Status post right foot surgery Family History Sister Ovarian cancer Brother Hypertension Social History Smoking Status: Never smoker Second Hand Exposure: No; Hx Alcohol Use: No Hx Substance Use: No Preferred Language: Turkish 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: Effective Boardmarker Required: No Beliefs That Will Affect Care: None marital status: Current Living Situation: Alone Current Living Situation Comment: handicap accessible appartment per patient current occupational status: retired How many Children do You have: 1 Feels Safe at Home: Yes Diet Comment: stated low salt, low carb during the past year weight has: increased > 10 lbs Assistive Devices: None and Brace/Splint/Immobilizer Allergies Allergies Allergy/AdvReac Type Severity Reaction Status Date / Time daptomycin AdvReac sob Verified 04/13/21 21:45 Home Meds Home Medications Medication Instructions Recorded Confirmed cholecalciferol (vitamin D3) 50 4,000 unit PO QAM 07/07/18 04/13/21 mcg (2,000 unit) capsule (Vitamin D3) coenzyme Q10 100 mg capsule (Co 100 mg PO QAM 11/18/20 04/13/21 Q-10) furosemide 40 mg tablet 40 mg PO BID 11/18/20 04/13/21 multivitamin 1 tab PO QAM 11/27/20 04/13/21 clopidogrel 75 mg tablet 75 mg PO DAILY 01/18/21 04/13/21 insulin glargine 100 unit/mL (3 30 unit SUBCUT HS 01/18/21 04/13/21 mL) subcutaneous pen (Basaglar KwikPen U-100 Insulin) Previous Rx's Medication Instructions Recorded calcium acetate(phosphat bind) 667 667 mg PO TIDM #90 cap 11/24/20 mg capsule vitamin B complex and vitamin C 1 cap PO QAM #90 cap 11/24/20 no.20-folic acid 1 mg capsule (Renal Caps) amlodipine 5 mg tablet (Norvasc) 10 mg PO HS #60 tab 01/23/21 hydralazine 25 mg tablet 25 mg PO TID #90 tab 01/23/21 carvedilol 12.5 mg tablet 12.5 mg PO BID #60 tab 01/24/21 Results & Data (ED) Vital Signs Vital Signs - 24 hr 04/13/21 15:32 04/13/21 20:14 04/13/21 22:00 Temperature 36.5 C Temperature Source Skin Pulse Rate 74 Pulse Rate [Apical] 75 86 Respiratory Rate 18 16 61 H Respiratory Effort / Characteristics Non-Labored Respiratory Depth Normal Blood Pressure 186/80 H Blood Pressure [Left Arm] 196/77 H 171/68 H Blood Pressure Mean 115 Blood Pressure Mean [Left Arm] 116 102 Blood Pressure Position [Left Arm] Sitting Pulse Oximetry 94 100 98 Oxygen Delivery Method Room Air Nasal Cannula Nasal Cannula Oxygen Flow Rate 2 2 Sepsis Recent Fever Within 48 Hours No Sepsis New/Unexplained Change in Mental Status No Sepsis Action Taken by Nursing No Action Required 04/13/21 23:17 Temperature Temperature Source Pulse Rate Pulse Rate [Apical] 82 Respiratory Rate 18 Respiratory Effort / Characteristics Respiratory Depth Normal Blood Pressure Blood Pressure [Left Arm] 151/67 H Blood Pressure Mean Blood Pressure Mean [Left Arm] 95 Blood Pressure Position [Left Arm] Pulse Oximetry 98 Oxygen Delivery Method Nasal Cannula Oxygen Flow Rate 2 Sepsis Recent Fever Within 48 Hours Sepsis New/Unexplained Change in Mental Status Sepsis Action Taken by Nursing Laboratory Data Result diagrams: 04/13/21 16:29 04/13/21 16:29 Lab Results 04/13/21 04/13/21 04/13/21 Range/Units 16:29 16:29 16:29 WBC 6.89 (4.8-10.8) K/uL RBC 3.63 L (4.2-5.4) M/uL Hgb 11.7 L (12.0-16.0) g/dL Hct 37.1 (37-47) % MCV 102.2 H (80-100) fL MCH 32.2 (25-34) pg MCHC 31.5 L (32-36) g/dL RDW Std Deviation 59.7 H (36.4-46.3) fL RDW Coeff of Rico 15.9 H (11.5-14.5) % Plt Count 192 (130-400) K/uL MPV 9.4 (7.4-10.4) fL Immature Gran % (Auto) 0.3 % Neut % (Auto) 74.1 % Lymph % (Auto) 9.7 % [place]field % (Auto) 11.8 % Eos % (Auto) 3.8 % Baso % (Auto) 0.3 % Neut # (Auto) 5.11 (1.4-6.5) K/uL Lymph # (Auto) 0.67 L (1.2-3.4) K/uL [place] # (Auto) 0.81 H (0.11-0.59) K/uL Eos # (Auto) 0.26 (0-0.5) K/uL Baso # (Auto) 0.02 (0-0.2) K/uL Immature Gran # (Auto) 0.02 (0.00-0.02) K/uL ESR 39 H (0-30) mm/hr Sodium 138 (136-145) mmol/L Potassium 4.5 (3.5-5.1) mmol/L Chloride 106 (98-107) mmol/L Carbon Dioxide 25 (21-32) mmol/L Anion Gap 7.0 (3-11) BUN 36 H (7-18) mg/dl Creatinine 3.80 H (0.6-1.2) mg/dl Est Cr Clr Drug Dosing Not Reportable Est GFR ( Amer) 13.6 ml/min Est GFR (Non-Af Amer) 11.8 ml/min BUN/Creatinine Ratio 9.4 L (10-20) Glucose 75 (70-99) mg/dl Calcium 9.7 (8.5-10.1) mg/dl Total Bilirubin 0.6 (0.2-1) mg/dl AST 21 (15-37) U/L ALT 30 (12-78) U/L Alkaline Phosphatase 103 (45-117) U/L C-Reactive Protein 1.99 H (0-0.29) mg/dl Total Protein 9.4 H (6.4-8.2) gm/dl Albumin 4.2 (3.4-5.0) gm/dl Globulin 5.2 H (2.5-4.0) gm/dl Albumin/Globulin Ratio 0.8 L (0.9-2) SARS-CoV-2, RNA, NAAT (NEGATIVE) 04/13/21 Range/Units 21:17 WBC (4.8-10.8) K/uL RBC (4.2-5.4) M/uL Hgb (12.0-16.0) g/dL Hct (37-47) % MCV (80-100) fL MCH (25-34) pg MCHC (32-36) g/dL RDW Std Deviation (36.4-46.3) fL RDW Coeff of Rico (11.5-14.5) % Plt Count (130-400) K/uL MPV (7.4-10.4) fL Immature Gran % (Auto) % Neut % (Auto) % Lymph % (Auto) % [place]field % (Auto) % Eos % (Auto) % Baso % (Auto) % Neut # (Auto) (1.4-6.5) K/uL Lymph # (Auto) (1.2-3.4) K/uL [place] # (Auto) (0.11-0.59) K/uL Eos # (Auto) (0-0.5) K/uL Baso # (Auto) (0-0.2) K/uL Immature Gran # (Auto) (0.00-0.02) K/uL ESR (0-30) mm/hr Sodium (136-145) mmol/L Potassium (3.5-5.1) mmol/L Chloride (98-107) mmol/L Carbon Dioxide (21-32) mmol/L Anion Gap (3-11) BUN (7-18) mg/dl Creatinine (0.6-1.2) mg/dl Est Cr Clr Drug Dosing Est GFR ( Amer) ml/min Est GFR (Non-Af Amer) ml/min BUN/Creatinine Ratio (10-20) Glucose (70-99) mg/dl Calcium (8.5-10.1) mg/dl Total Bilirubin (0.2-1) mg/dl AST (15-37) U/L ALT (12-78) U/L Alkaline Phosphatase (45-117) U/L C-Reactive Protein (0-0.29) mg/dl Total Protein (6.4-8.2) gm/dl Albumin (3.4-5.0) gm/dl Globulin (2.5-4.0) gm/dl Albumin/Globulin Ratio (0.9-2) SARS-CoV-2, RNA, NAAT NEGATIVE (NEGATIVE) Administered Medications Vancomycin HCl 1,500 mg/ (Sodium Chloride) 530 mls @ 200 mls/hr IV NOW ONE Stop: 04/14/21 00:08 Last Admin: 04/13/21 21:42 Dose: 200 mls/hr Documented by: [id number] Discontinued Medications Carvedilol (Carvedilol 12.5 Mg Tab) 12.5 mg PO NOW STA Stop: 04/13/21 22:24 Last Admin: 04/13/21 23:10 Dose: 12.5 mg Documented by: [id number] Cefepime HCl (Maxipime) 2,000 mg in 20 mls @ 5 mls/min IV NOW STA; Protocol Stop: 04/13/21 22:28 Last Admin: 04/13/21 23:11 Dose: 5 mls/min Documented by: [id number] Imaging Data Radiologist's Impression: Foot X-Ray 04/13/21 19:43 XR foot RT min 3V routine HISTORY: 65 years-old Female wound acute pain of the right foot with reported soft tissue wound COMPARISON: Right ankle radiographs 05/13/2019 TECHNIQUE: 3 views of the right foot FINDINGS: Diffuse soft tissue prominence. Demineralized appearance the bones. Multifocal osteoarthritis is predominantly mild. 2 cannulated screws of the medial malleolus are noted in addition to plate and screw fusion hardware of the distal fibula. There is a suggested 2.3 cm soft tissue ulcer lateral to the base of the fifth metatarsal. No osseous erosions identified. IMPRESSION: 1. Diffuse soft tissue swelling with skin ulcer lateral to the base of the fifth metatarsal. 2. No acute fracture, dislocation or osseous erosion. ACT 112: Negative or not required by law. The above report was generated using voice recognition software. It may contain grammatical, syntax or spelling errors. Electronically signed by: Jesus Glass M.D. 04/13/2021 8:09 PM Discharge Plan Visit Data Chief Complaint: Infection, Wound Stated Complaint: WOUND ON R FOOT/REF BY DIALYSIS ED Provider: Rian Adan ED Midlevel Provider: Keisha Murillo Discharge Problem: Diabetic infection of right foot, Type 2 diabetes mellitus, Diabetic neuropathy, End stage renal failure on dialysis Patient Disposition: Being Evaluated by Hospitalist Forms Stand Alone Forms: [facility] Prescriptions Prescriptions: No Action cholecalciferol (vitamin D3) [Vitamin D3] 2,000 unit Capsule 4,000 unit PO QAM RF: 0 furosemide 40 mg tablet 40 mg PO BID RF: 0 coenzyme Q10 [Co Q-10] 100 mg Capsule 100 mg PO QAM RF: 0 calcium acetate(phosphat bind) 667 mg Capsule 667 mg PO TIDM Qty: 90 RF: 0 Renal Caps 1 mg Capsule 1 cap PO QAM Qty: 90 RF: 0 multivitamin Tablet 1 tab PO QAM RF: 0 Basaglar TimothyikPen U-100 Insulin 100 unit/mL (3 mL) insulin pen 30 unit SUBCUT HS RF: 0 clopidogrel 75 mg tablet 75 mg PO DAILY RF: 0 amlodipine [Norvasc] 5 mg Tablet 10 mg PO HS Qty: 60 RF: 0 hydralazine 25 mg tablet 25 mg PO TID Qty: 90 RF: 0 carvedilol 12.5 mg Tablet 12.5 mg PO BID Qty: 60 RF: 0 Referrals Referrals: Melissa Bronson DO [Primary Care Provider] -
--- NOTE | 2021-04-13 20:10 | XRay Report ---
XR foot RT min 3V routine HISTORY: 65 years-old Female wound acute pain of the right foot with reported soft tissue wound COMPARISON: Right ankle radiographs 05/13/2019 TECHNIQUE: 3 views of the right foot FINDINGS: Diffuse soft tissue prominence. Demineralized appearance the bones. Multifocal osteoarthritis is pred ominantly mild. 2 cannulated screws of the medial malleolus are noted in addition to plate and screw fusion hardware of the distal fibula. There is a suggested 2.3 cm soft tissue ulcer lateral to the ba se of the fifth metatarsal. No osseous erosions identified. IMPRESSION: 1. Diffuse soft tissue swelling with skin ulcer lateral to the base of the fifth metatarsal. 2. No acute fracture, dislocation or osseous erosion. ACT 112: Negative or not required by law. The above report was generated using voice recognition software. It may contain grammatical, syntax o r spelling errors. Electronically signed by: Jesus Glass M.D. 04/13/2021 8:09 PM
--- NOTE | 2021-04-13 20:14 | 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 Note ---
Date of Service: April 13, 2021 Keisha Larson M.D. personally saw and evaluated this patient, and participated in their management and care under the supervision of Dr. Adan . Resident Activity Tracking Resident Involvement: Resident Care Provided Care Provided: Adult ED
[2021-04-13 20:45] LABS: C Reactive Protein 1.99 mg/dl (0-0.29)
[2021-04-13] MEDS ORDERED: VANCOMYCIN HCL 1,500 MG in SODIUM CHLORIDE 0.9% 500 ML IV ONE (21:30)
[2021-04-13] MEDS ORDERED: VANCOMYCIN CONSULT ACTIVE PRN (21:30)
[2021-04-13] MEDS ORDERED: carvediloL 12.5 MG TAB PO STA (22:23)
[2021-04-13] MEDS ORDERED: CEFEPIME 2,000 MG/20 ML VIAL IV STA (22:25)
--- NOTE | 2021-04-14 01:59 | History & Physical Report ---
Date of Service April 14, 2021 Assessment & Plan (1) Asymptomatic hypertensive urgency: Plan: Diabetic foot infection, right hx history osteomyelitis as per records No sepsis for now chronic diastolic heart failure (EF 55 to 60%, TTE 2020), euvolemic ESRD on HD DM 2 insulin requiring, reasonable control as of recent hemoglobin A1c of 7.20 October 2020 chronic anemia, hemoglobin at baseline Medical telemetry given uncontrolled BP Facilitate home BP meds CS, Doxycycline and Cefepime Offload RLE Orthopedics consult Re: Diabetic foot infection right Nephrology consult for dialysis management Basal insulin, ISS BG goal 1 10-1 40, carb count coverage DVT prophylaxis. Heparin subcu Full code Text document was generated using Hangtime voice recognition software. It may contain grammatical or spelling errors. Kindly contact undersigned for clarification of any documentation item in question. History of Present Illness Chief Complaint: Right foot wound Primary Care Provider: Melissa Bronson DO History obtained from patient and records. Patient is a fair historian. Medical history significant for chronic diastolic heart failure (EF 55 to 60%, TTE 2020), ESRD on HD, DM 2 insulin requiring, chronic anemia (baseline hemoglobin 8-9), chronic right foot wound/history osteomyelitis status post daptomycin Rx as per records. Last confinement January 2021 for syncope during dialysis attributed to hypotension. Patient noted to have new wounds on the right foot the last few weeks as per re cords Patient unable to answer if wound on same spot as past wound from 2 years ago requiring antibiotic Rx for osteomyelitis. Patient denies chest pain, S OB, headache, fever, chills. Patient sent to ER for worsening right foot wound. IV vancomycin given at the ER. Medical History as above Hemodialysis Monday Surgical History : D&C, laser trabeculoplasty, cataract surgeries, vascular procedures Family History : Ovarian cancer, DM, heart disease, stroke Personal/Social history : Non-smoker, no EtOH intake, disabled Allergies Allergy/AdvReac Type Severity Reaction Status Date / Time daptomycin AdvReac sob Verified 04/13/21 21:45 Home Medications Medication Instructions Recorded Confirmed Type cholecalciferol (vitamin D3) 50 4,000 unit PO QAM 07/07/18 04/13/21 History mcg (2,000 unit) capsule (Vitamin D3) coenzyme Q10 100 mg capsule (Co 100 mg PO QAM 11/18/20 04/13/21 History Q-10) furosemide 40 mg tablet 40 mg PO BID 11/18/20 04/13/21 History calcium acetate(phosphat bind) 667 667 mg PO TIDM #90 cap 11/24/20 04/13/21 Rx mg capsule vitamin B complex and vitamin C 1 cap PO QAM #90 cap 11/24/20 04/13/21 Rx no.20-folic acid 1 mg capsule (Renal Caps) multivitamin 1 tab PO QAM 11/27/20 04/13/21 History clopidogrel 75 mg tablet 75 mg PO DAILY 01/18/21 04/13/21 History insulin glargine 100 unit/mL (3 30 unit SUBCUT HS 01/18/21 04/13/21 History mL) subcutaneous pen (Basaglar KwikPen U-100 Insulin) amlodipine 5 mg tablet (Norvasc) 10 mg PO HS #60 tab 01/23/21 04/13/21 Rx hydralazine 25 mg tablet 25 mg PO TID #90 tab 01/23/21 04/13/21 Rx carvedilol 12.5 mg tablet 12.5 mg PO BID #60 tab 01/24/21 04/13/21 Rx Past Med/Surg History Medical History Anemia Callus Chronic diastolic CHF (congestive heart failure) Closed fracture of distal end of right fibula and tibia Diabetes mellitus with diabetic polyneuropathy Diabetic foot ulcer Diabetic neuropathy Dyslipidemia End stage renal failure on dialysis Foot osteomyelitis, right History of CVA (cerebrovascular accident) History of depression Hypertension Posterior capsular opacification Type 2 diabetes mellitus Ulcer of right midfoot Vitamin D deficiency Surgical History History of appendectomy Status post right foot surgery Family History Sister Ovarian cancer Brother Hypertension Social History Smoking Status: Never smoker Second Hand Exposure: No; Do You Dip or Chew Tobacco: No; Hx Alcohol Use: No Hx Substance Use: No Preferred Language: Albanian 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: Effective Editor School Photograph Required: No Beliefs That Will Affect Care: None marital status: Current Living Situation: Alone Current Living Situation Comment: handicap accessible appartment per patient current occupational status: retired How many Children do You have: 1 Other Information That Helps Us Care for You: No Feels Safe at Home: Yes Safety Concerns: Afraid for Self Diet Comment: stated low salt, low carb during the past year weight has: increased > 10 lbs Assistive Devices: Brace/Splint/Immobilizer and Walker Review of Systems Review of Systems: As per HPI, all 10 systems reviewed, all other ROS negative Physical Exam Physical Exam: GENERAL: Comfortable, pleasant, somewhat apathetic, obese, no respiratory distress SKIN: Sallow , warm HEENT: Pale palpebral conjunctivae, no ptosis, dry buccal mucosa NECK : Supple, short neck, no tenderness CHEST : CTA, no tenderness HEART : RRR, no obvious murmurs ABDOMEN: Some distention, nontender EXTREMITIES : Right foot swelling, ulcerated wound lateral aspect of right foot with scant drainage, minimal LE swelling without tenderness. NEUROLOGIC : Coherent, no facial asymmetry, no other gross focality Results & Data Results & Data ([facility]) Vital Signs (Past 12 Hours) Vital Signs Temp Pulse Pulse Resp BP BP Pulse Ox 04/14/21 01:43 85 20 134/99 98 04/14/21 00:59 66 18 146/75 H 100 04/13/21 23:17 82 18 151/67 H 98 04/13/21 22:00 86 61 H 171/68 H 98 04/13/21 20:14 75 16 196/77 H 100 04/13/21 15:32 36.5 C 74 18 186/80 H 94 Laboratory Results Laboratory Results WBC 6.89 K/uL (4.8-10.8) 04/13/21 16:29 RBC 3.63 M/uL (4.2-5.4) L 04/13/21 16:29 Hgb 11.7 g/dL (12.0-16.0) L 04/13/21 16:29 Hct 37.1 % (37-47) 04/13/21 16:29 MCV 102.2 fL (80-100) H 04/13/21 16:29 MCH 32.2 pg (25-34) 04/13/21 16:29 MCHC 31.5 g/dL (32-36) L 04/13/21 16:29 RDW Std Deviation 59.7 fL (36.4-46.3) H 04/13/21 16: RDW Coeff of Rico 15.9 % (11.5-14.5) H 04/13/21 16: Plt Count 192 K/uL (130-400) 04/13/21 16: MPV 9.4 fL (7.4-10.4) 04/13/21 16: Immature Gran % (Auto) 0.3 % 04/13/21 16: Neut % (Auto) 74.1 % 04/13/21 16: Lymph % (Auto) 9.7 % 04/13/21 16: [place] % (Auto) 11.8 % 04/13/21 16: Eos % (Auto) 3.8 % 04/13/21 16: Baso % (Auto) 0.3 % 04/13/21 16: Neut # (Auto) 5.11 K/uL (1.4-6.5) 04/13/21 16: Lymph # (Auto) 0.67 K/uL (1.2-3.4) L 04/13/21 16: [place] # (Auto) 0.81 K/uL (0.11-0.59) H 04/13/21 16: Eos # (Auto) 0.26 K/uL (0-0.5) 04/13/21 16: Baso # (Auto) 0.02 K/uL (0-0.2) 04/13/21 16: Immature Gran # (Auto) 0.02 K/uL (0.00-0.02) 04/13/21 16: ESR 39 mm/hr (0-30) H 04/13/21 16: Sodium 138 mmol/L (136-145) 04/13/21 16: Potassium 4.5 mmol/L (3.5-5.1) 04/13/21 16: Chloride 106 mmol/L (98-107) 04/13/21 16: Carbon Dioxide 25 mmol/L (21-32) 04/13/21 16: Anion Gap 7.0 (3-11) 04/13/21 16: BUN 36 mg/dl (7-18) H 04/13/21 16:29 Creatinine 3.80 mg/dl (0.6-1.2) H 04/13/21 16:29 Est Cr Clr Drug Dosing Not Reportable 04/13/21 16:29 Est GFR ( Amer) 13.6 ml/min 04/13/21 16:29 Est GFR (Non-Af Amer) 11.8 ml/min 04/13/21 16:29 BUN/Creatinine Ratio 9.4 (10-20) L 04/13/21 16:29 Glucose 75 mg/dl (70-99) 04/13/21 16:29 Calcium 9.7 mg/dl (8.5-10.1) 04/13/21 16:29 Total Bilirubin 0.6 mg/dl (0.2-1) 04/13/21 16:29 AST 21 U/L (15-37) 04/13/21 16:29 ALT 30 U/L (12-78) 04/13/21 16:29 Alkaline Phosphatase 103 U/L (45-117) 04/13/21 16:29 C-Reactive Protein 1.99 mg/dl (0-0.29) H 04/13/21 16:29 Total Protein 9.4 gm/dl (6.4-8.2) H 04/13/21 16:29 Albumin 4.2 gm/dl (3.4-5.0) 04/13/21 16:29 Globulin 5.2 gm/dl (2.5-4.0) H 04/13/21 16:29 Albumin/Globulin Ratio 0.8 (0.9-2) L 04/13/21 16:29 SARS-CoV-2, RNA, NAAT NEGATIVE (NEGATIVE) 04/13/21 21:17 Impressions Foot X-Ray 04/13/21 19:43 XR foot RT min 3V routine HISTORY: 65 years-old Female wound acute pain of the right foot with reported soft tissue wound COMPARISON: Right ankle radiographs 05/13/2019 TECHNIQUE: 3 views of the right foot FINDINGS: Diffuse soft tissue prominence. Demineralized appearance the bones. Multifocal osteoarthritis is predominantly mild. 2 cannulated screws of the medial malleolus are noted in addition to plate and screw fusion hardware of the distal fibula. There is a suggested 2.3 cm soft tissue ulcer lateral to the base of the fifth metatarsal. No osseous erosions identified. IMPRESSION: 1. Diffuse soft tissue swelling with skin ulcer lateral to the base of the fifth metatarsal. 2. No acute fracture, dislocation or osseous erosion. ACT 112: Negative or not required by law. The above report was generated using voice recognition software. It may contain grammatical, syntax or spelling errors. Electronically signed by: Jesus Glass M.D. 04/13/2021 8:09 PM
[2021-04-14] MEDS ORDERED: CONSULT PHARMACY STA (04:09)
[2021-04-14] MEDS ORDERED: DEXTROSE 50% 50 ML SYRINGE IV PRN (04:39)
[2021-04-14] MEDS ORDERED: ACETAMINOPHEN 325 MG TAB PO PRN (04:39)
[2021-04-14] MEDS ORDERED: GLUCOSE 10 TABS/TUBE PO PRN (04:39)
[2021-04-14] MEDS ORDERED: traMADol HCL 50 MG TABLET PO PRN (04:39)
[2021-04-14] MEDS ORDERED: GLUCOSE 40% GEL 15 GM TUBE PO PRN (04:39)
[2021-04-14] MEDS ORDERED: GLUCAGON FOR INJ 1 MG VIAL SQ PRN (04:39)
[2021-04-14] MEDS ORDERED: PROMETHAZINE HCL 12.5 MG in SODIUM CHLORIDE 0.9% 50 ML IV PRN (04:39)
[2021-04-14] MEDS ORDERED: CARBOHYDRATES FOR HYPOGLYCEMIA PO PRN (04:39)
[2021-04-14 05:48] LABS: Basophils # (auto) 0.04 K/uL (0-0.2); Basophils % (auto) 0.6 %; Eosinophils # (auto) 0.27 K/uL (0-0.5); Eosinophils % (auto) 4.3 %; Hematocrit (blood only) 32.4 % (37-47); Hemoglobin 10.1 g/dL (12.0-16.0); Immature Granulocytes # (auto) 0.01 K/uL (0.00-0.02); Immature Granulocytes % (auto) 0.2 %; Lymphocytes # (auto) 1.25 K/uL (1.2-3.4); Lymphocytes % (auto) 20.1 %; Mean Corpuscular Hemoglobin 31.9 pg (25-34); Mean Corpuscular Hgb Conc 31.2 g/dL (32-36); Mean Corpuscular Volume 102.2 fL (80-100); Mean Platelet Volume 8.9 fL (7.4-10.4); Monocytes # (auto) 0.82 K/uL (0.11-0.59); Monocytes % (auto) 13.2 %; Neutrophils # (auto) 3.82 K/uL (1.4-6.5); Neutrophils % (auto) 61.6 %; Platelet Count 182 K/uL (130-400); RDW Coefficient of Variation 15.8 % (11.5-14.5); RDW Standard Deviation 59.7 fL (36.4-46.3); Red Blood Count 3.17 M/uL (4.2-5.4); White Blood Count 6.21 K/uL (4.8-10.8)
[2021-04-14 06:41] LABS: BUN Creatinine Ratio 9.9 (10-20); Calcium 8.7 mg/dl (8.5-10.1); Creatinine Clr Calc Pharmacy 11.3 ml/min; Est GFR (African American) 10.1 ml/min; Est GFR (Non-African American) 8.7 ml/min; Potassium 4.5 mmol/L (3.5-5.1)
[2021-04-14] MEDS: INSULIN ASPART 100 UNITS/ML 3 ML PEN SC SCH ×4 (09:46→22:24)
[2021-04-14] MEDS: DOXYCYCLINE HYCLATE 100 MG CAP PO SCH ×2 (09:54→16:41)
[2021-04-14] MEDS: HEPARIN SOD 5,000 UNIT/0.5 ML VIAL SQ SCH ×3 (09:54→21:48)
[2021-04-14] MEDS: CALCIUM ACETATE 667 MG CAP/TAB PO SCH ×3 (09:54→16:40)
[2021-04-14] MEDS: carvediloL 12.5 MG TAB PO SCH ×2 (09:55→21:40)
[2021-04-14] MEDS: hydrALAZINE HCL 25 MG TAB PO SCH ×3 (09:55→21:41)
[2021-04-14] MEDS: CHOLECALCIFEROL 1,000 UNITS 25 MCG TAB PO SCH (09:55)
[2021-04-14] MEDS: FUROSEMIDE 40 MG TAB PO SCH ×2 (09:55→16:40)
[2021-04-14] MEDS: MULTIVITAMIN TAB PO SCH (09:55)
[2021-04-14] MEDS: NEPHROCAPS PO SCH (09:55)
[2021-04-14] MEDS: CLOPIDOGREL BISULFATE 75 MG TAB PO SCH (09:55)
--- NOTE | 2021-04-14 14:23 | Nephrology Consultation ---
Date of Consultation April 14, 2021 Assessment & Plan (1) End stage renal failure on dialysis: * Outpatient HD: [facility] MWF 3 hr 30 min 3K 2.5Ca F-180NR EDW 77 kg access-THC * HD completed this morning at the outpatient unit - no complications reported * Volume status and electrolyte balance are acceptable at this time. Anticipate next HD Monday * Will order PRP for am (2) Hypertension: * SBP 140 - 160 mm Hg. Continue Carvedilol, Amlodipine, Hydralazine and Furosemide (3) Anemia due to chronic kidney disease: * Mild, asymptomatic anemia * Continue RANDY w/ HD treatments (4) Diabetic foot ulcer: * 1500 mg Vancomycin administered IV in EMD * Patient is on Doxycycline 100 mg po BID * Hospitalist group has added Cefepime. Recommend consulting pharmacy to assist w/ dosing in the setting of 3x/week HD (ie., Cefepime 1.5g IV after each HD treatment) History of Present Illness Reason for Consultation: ESRD Attending Physician: Sheldon Hurst MD History of Present Illness Ms. Riley is a 65 year old white female who is seen at the request of the [facility] hospitalist group for ESRD requiring HD. Medical records in the EMR were reviewed and are summarized as follows: Ms. Riley has ESRD due to DKD, AODM, diabetic retinopathy (legally blind in R eye, no longer drives), HTN, hyperlipidemia, depression and R ankle fracture (surgically repaired - requires walking boot). In November 2020 she progressed to ESRD, required hospitalization and was started on HD. Her initial course on HD was complicated by hypotension and syncope. This has since resolved. Cardiac evaluation was negative for arrhythmia. Echocardiogram revealed normal LVEF. Ms. Riley was dialyzed this morning. While at dialysis the RN performed a diabetic foot check. Ms. Riley was noted to have a recurrent ulcer on the lateral aspect of the R foot and heel. [facility] recommended admission for IV antibiotic therapy since patient is at high risk for osteomyelitis. Allergies Allergy/AdvReac Type Severity Reaction Status Date / Time daptomycin AdvReac sob Verified 04/13/21 21:45 Home Medications Medication Instructions Recorded Confirmed Type cholecalciferol (vitamin D3) 50 4,000 unit PO QAM 07/07/18 04/13/21 History mcg (2,000 unit) capsule (Vitamin D3) coenzyme Q10 100 mg capsule (Co 100 mg PO QAM 11/18/20 04/13/21 History Q-10) furosemide 40 mg tablet 40 mg PO BID 11/18/20 04/13/21 History calcium acetate(phosphat bind) 667 667 mg PO TIDM #90 cap 11/24/20 04/13/21 Rx mg capsule vitamin B complex and vitamin C 1 cap PO QAM #90 cap 11/24/20 04/13/21 Rx no.20-folic acid 1 mg capsule (Renal Caps) multivitamin 1 tab PO QAM 11/27/20 04/13/21 History clopidogrel 75 mg tablet 75 mg PO DAILY 01/18/21 04/13/21 History insulin glargine 100 unit/mL (3 30 unit SUBCUT HS 01/18/21 04/13/21 History mL) subcutaneous pen (Basaglar KwikPen U-100 Insulin) amlodipine 5 mg tablet (Norvasc) 10 mg PO HS #60 tab 01/23/21 04/13/21 Rx hydralazine 25 mg tablet 25 mg PO TID #90 tab 01/23/21 04/13/21 Rx carvedilol 12.5 mg tablet 12.5 mg PO BID #60 tab 01/24/21 04/13/21 Rx Patient History Medical History Anemia Callus Chronic diastolic CHF (congestive heart failure) Closed fracture of distal end of right fibula and tibia Diabetes mellitus with diabetic polyneuropathy Diabetic foot ulcer Diabetic neuropathy Dyslipidemia End stage renal failure on dialysis Foot osteomyelitis, right History of CVA (cerebrovascular accident) History of depression Hypertension Posterior capsular opacification Type 2 diabetes mellitus Ulcer of right midfoot Vitamin D deficiency Surgical History History of appendectomy Status post right foot surgery Family History Sister Ovarian cancer Brother Hypertension Social History Smoking Status: Never smoker Second Hand Exposure: No; Do You Dip or Chew Tobacco: No; Hx Alcohol Use: No Hx Substance Use: No Preferred Language: Icelandic 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: Effective Microphone Boom Operator Required: No Beliefs That Will Affect Care: None marital status: Current Living Situation: Alone Current Living Situation Comment: handicap accessible appartment per patient current occupational status: retired How many Children do You have: 1 Other Information That Helps Us Care for You: No Feels Safe at Home: Yes Safety Concerns: Afraid for Self Diet Comment: stated low salt, low carb during the past year weight has: increased > 10 lbs Assistive Devices: Brace/Splint/Immobilizer and Walker Review of Systems Constitutional: + weakness; no fever Eyes: no worsening vision Ear, Nose, Mouth, Throat: no problem reported Respiratory: no dyspnea Cardiovascular: no chest pain and no palpitations Gastrointestinal: no abdominal pain Genitourinary: no dysuria and no hematuria Musculoskeletal: no back pain Integumentary: no rash Neurologic: no falls, no dizziness and no confusion Physical Exam Constitutional: not in distress Eyes: PERRL ENMT: external ear and nose normal, oropharynx normal Neck: trachea midline, no thyromegaly Respiratory: normal respiratory effort, lungs clear to auscultation Cardiovascular: RRR, no murmur, no edema Rate/Rhythm: regular rate and regular rhythm Extremities: + edema (1+ pretibial edema) Gastrointestinal (Abdomen): normal bowel sounds, soft, nontender, no hepatosplenomegaly Musculoskeletal: Extremities: no cyanosis Skin: 1x1 cm shallow ulcers with dry base involving the lateral aspect of the R foot and heel. Mild erythema surrounding both lesions Results & Data ([facility]) Vital Signs (Past 12 Hours) Vital Signs Temp Pulse Resp BP Pulse Ox Pulse Ox 04/14/21 12:37 74 17 158/65 H 99 04/14/21 08:06 59 L 17 140/65 100 04/14/21 05:01 36.7 C 65 20 161/66 H 100 04/14/21 04:39 100 04/14/21 04:01 61 20 146/61 H 98 04/14/21 03:05 65 20 145/56 H 99 Laboratory Results Laboratory Tests 04/13/21 04/14/21 04/14/21 16:29 05:26 05:26 WBC 6.21 Hgb 10.1 L Hct 32.4 L Plt Count 182 Sodium 141 Potassium 4.5 Chloride 109 H Carbon Dioxide 26 BUN 48 H Creatinine 4.87 H* D Glucose 84 Calcium 8.7 Albumin 4.2 PG Care Time/CCT Total # of Minutes Spent Total Time Spent with Patient: Total time spent is greater than 50% in coordination of care (as documented) at patient's floor/unit and/or counseling patient: Coding Level of Care Code 48657 Inpt Consult Level 5 Diagnoses End stage renal failure on dialysis N18.6; Z99.2 Anemia due to chronic kidney disease N18.9; D63.1 Diabetic foot ulcer E11.621; L97.509 Hypertension I10 Hypertension type: unspecified (1) Hypertension Hypertension type: unspecified Qualified Code(s): I10 - Essential (primary) hypertension
--- NOTE | 2021-04-14 15:01 | Orthopedic Consultation ---
Date of Consultation April 14, 2021 Assessment & Plan (1) Diabetic infection of right foot: Patient with a general cellulitis of her right foot with diabetic foot ulcers. Patient has a history of osteomyelitis of his foot that was treated with daptomycin in the past. Previous MRI in 1999 showed a question of a chronic osteo. Continue IV antibiotics as ordered by medicine service. We will obtain a MRI without contrast to try to rule out osteomyelitis. At this point, I do not think she will need a surgical intervention however we will await MRI results and have Dr. Acharya examine her as well for further input. History of Present Illness Reason for Consultation: Diabetic foot ulcer right foot Attending Physician: Sheldon Hurst MD History of Present Illness 65-year-old white female with past medical history of chronic diastolic heart failure (EF 55 to 60%, TTE 2020), ESRD on HD, DM 2 insulin requiring, chronic anemia (baseline hemoglobin 8-9), chronic right foot wound/history osteomyelitis status post daptomycin Rx as per records. Patient currently on hemodialysis at home and she apparently has her feet checked on a monthly basis. She had developed some new wounds over her right foot within the last few weeks. She is unsure if they were in new areas and states that she cannot see the bottom of her foot. She states that the wound was draining some over period of time. She apparently was having a worsening cellulitis with some drainage in the wound and came into the emergency room. [facility]. We have been asked to see her for her right foot wound. Allergies Allergy/AdvReac Type Severity Reaction Status Date / Time daptomycin AdvReac sob Verified 04/13/21 21:45 Home Medications Medication Instructions Recorded Confirmed Type cholecalciferol (vitamin D3) 50 4,000 unit PO QAM 07/07/18 04/13/21 History mcg (2,000 unit) capsule (Vitamin D3) coenzyme Q10 100 mg capsule (Co 100 mg PO QAM 11/18/20 04/13/21 History Q-10) furosemide 40 mg tablet 40 mg PO BID 11/18/20 04/13/21 History calcium acetate(phosphat bind) 667 667 mg PO TIDM #90 cap 11/24/20 04/13/21 Rx mg capsule vitamin B complex and vitamin C 1 cap PO QAM #90 cap 11/24/20 04/13/21 Rx no.20-folic acid 1 mg capsule (Renal Caps) multivitamin 1 tab PO QAM 11/27/20 04/13/21 History clopidogrel 75 mg tablet 75 mg PO DAILY 01/18/21 04/13/21 History insulin glargine 100 unit/mL (3 30 unit SUBCUT HS 01/18/21 04/13/21 History mL) subcutaneous pen (Basaglar KwikPen U-100 Insulin) amlodipine 5 mg tablet (Norvasc) 10 mg PO HS #60 tab 01/23/21 04/13/21 Rx hydralazine 25 mg tablet 25 mg PO TID #90 tab 01/23/21 04/13/21 Rx carvedilol 12.5 mg tablet 12.5 mg PO BID #60 tab 01/24/21 04/13/21 Rx Patient History Medical History Anemia Callus Chronic diastolic CHF (congestive heart failure) Closed fracture of distal end of right fibula and tibia Diabetes mellitus with diabetic polyneuropathy Diabetic foot ulcer Diabetic neuropathy Dyslipidemia End stage renal failure on dialysis Foot osteomyelitis, right History of CVA (cerebrovascular accident) History of depression Hypertension Posterior capsular opacification Type 2 diabetes mellitus Ulcer of right midfoot Vitamin D deficiency Surgical History History of appendectomy Status post right foot surgery Family History Sister Ovarian cancer Brother Hypertension Social History Smoking Status: Never smoker Second Hand Exposure: No; Do You Dip or Chew Tobacco: No; Hx Alcohol Use: No Hx Substance Use: No Preferred Language: Danish 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: Effective 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 Jet Cutter Operator Required: No Beliefs That Will Affect Care: None marital status: Current Living Situation: Alone Current Living Situation Comment: handicap accessible appartment per patient current occupational status: retired How many Children do You have: 1 Other Information That Helps Us Care for You: No Feels Safe at Home: Yes Safety Concerns: Afraid for Self Diet Comment: stated low salt, low carb during the past year weight has: increased > 10 lbs Assistive Devices: Brace/Splint/Immobilizer and Walker Physical Exam Physical Exam: On examination, the patient is sitting up in bed awake and alert. No complaints at this time. Denies pain. States that she has moderate neuropathy of both of her feet. On examination of her right foot, her sock is removed. There are no dressings over 2 areas on her lateral aspect of her foot. One area is close to the fifth metatarsal head that is a mild ulceration with a small pinpoint central portion that appears to be tannish to yellowish granulation tissue or slough. I cannot appreciate any fluid collections around this ulcerative area. It measures approximately 2 cm in length and about a centimeter in width. On palpation I cannot express any exudate from the wound itself. There does appear to be a slight odor at this time. She also has a secondary area on the lateral aspect closer to the heel that is a smaller reddened ulcerative area that has lost initial skin and has a red base but no drainage. Cap refill is less than 2 seconds. She has some swelling over the dorsum of her foot and I cannot appreciate a dorsalis pedis pulse at this time. Results & Data ([facility]) Vital Signs (Past 12 Hours) Vital Signs Temp Pulse Resp BP Pulse Ox Pulse Ox 04/14/21 12:37 74 17 158/65 H 99 04/14/21 08:06 59 L 17 140/65 100 04/14/21 05:01 36.7 C 65 20 161/66 H 100 04/14/21 04:39 100 04/14/21 04:01 61 20 146/61 H 98 04/14/21 03:05 65 20 145/56 H 99 Laboratory Results 04/14/21 04/14/21 04/14/21 Range/Units 11:41 08:37 08:35 WBC (4.8-10.8) K/uL RBC (4.2-5.4) M/uL Hgb (12.0-16.0) g/dL Hct (37-47) % MCV (80-100) fL MCH (25-34) pg MCHC (32-36) g/dL RDW Std Deviation (36.4-46.3) fL RDW Coeff of Rico (11.5-14.5) % Plt Count (130-400) K/uL MPV (7.4-10.4) fL Immature Gran % (Auto) % Neut % (Auto) % Lymph % (Auto) % [place] % (Auto) % Eos % (Auto) % Baso % (Auto) % Neut # (Auto) (1.4-6.5) K/uL Lymph # (Auto) (1.2-3.4) K/uL [place] # (Auto) (0.11-0.59) K/uL Eos # (Auto) (0-0.5) K/uL Baso # (Auto) (0-0.2) K/uL Immature Gran # (Auto) (0.00-0.02) K/uL ESR (0-30) mm/hr Sodium (136-145) mmol/L Potassium (3.5-5.1) mmol/L Chloride (98-107) mmol/L Carbon Dioxide (21-32) mmol/L Anion Gap (3-11) BUN (7-18) mg/dl Creatinine (0.6-1.2) mg/dl Est Cr Clr Drug Dosing Est GFR ( Amer) ml/min Est GFR (Non-Af Amer) ml/min BUN/Creatinine Ratio (10-20) Glucose (70-99) mg/dl POC Glucose 141 H 71 68 L* (70-99) mg/dl Calcium (8.5-10.1) mg/dl Total Bilirubin (0.2-1) mg/dl AST (15-37) U/L ALT (12-78) U/L Alkaline Phosphatase (45-117) U/L C-Reactive Protein (0-0.29) mg/dl Total Protein (6.4-8.2) gm/dl Albumin (3.4-5.0) gm/dl Globulin (2.5-4.0) gm/dl Albumin/Globulin Ratio (0.9-2) SARS-CoV-2, RNA, NAAT (NEGATIVE) 04/14/21 04/14/21 04/13/21 Range/Units 05:26 05:26 21:17 WBC 6.21 (4.8-10.8) K/uL RBC 3.17 L (4.2-5.4) M/uL Hgb 10.1 L (12.0-16.0) g/dL Hct 32.4 L (37-47) % MCV 102.2 H (80-100) fL MCH 31.9 (25-34) pg MCHC 31.2 L (32-36) g/dL RDW Std Deviation 59.7 H (36.4-46.3) fL RDW Coeff of Rico 15.8 H (11.5-14.5) % Plt Count 182 (130-400) K/uL MPV 8.9 (7.4-10.4) fL Immature Gran % (Auto) 0.2 % Neut % (Auto) 61.6 % Lymph % (Auto) 20.1 % [place] % (Auto) 13.2 % Eos % (Auto) 4.3 % Baso % (Auto) 0.6 % Neut # (Auto) 3.82 (1.4-6.5) K/uL Lymph # (Auto) 1.25 (1.2-3.4) K/uL [place] # (Auto) 0.82 H (0.11-0.59) K/uL Eos # (Auto) 0.27 (0-0.5) K/uL Baso # (Auto) 0.04 (0-0.2) K/uL Immature Gran # (Auto) 0.01 (0.00-0.02) K/uL ESR (0-30) mm/hr Sodium 141 (136-145) mmol/L Potassium 4.5 (3.5-5.1) mmol/L Chloride 109 H (98-107) mmol/L Carbon Dioxide 26 (21-32) mmol/L Anion Gap 6.0 (3-11) BUN 48 H (7-18) mg/dl Creatinine 4.87 H* D (0.6-1.2) mg/dl Est Cr Clr Drug Dosing 11.3 Est GFR ( Amer) 10.1 ml/min Est GFR (Non-Af Amer) 8.7 ml/min BUN/Creatinine Ratio 9.9 L (10-20) Glucose 84 (70-99) mg/dl POC Glucose (70-99) mg/dl Calcium 8.7 (8.5-10.1) mg/dl Total Bilirubin (0.2-1) mg/dl AST (15-37) U/L ALT (12-78) U/L Alkaline Phosphatase (45-117) U/L C-Reactive Protein (0-0.29) mg/dl Total Protein (6.4-8.2) gm/dl Albumin (3.4-5.0) gm/dl Globulin (2.5-4.0) gm/dl Albumin/Globulin Ratio (0.9-2) SARS-CoV-2, RNA, NAAT NEGATIVE (NEGATIVE) 04/13/21 04/13/21 04/13/21 Range/Units 16:29 16:29 16:29 WBC 6.89 (4.8-10.8) K/uL RBC 3.63 L (4.2-5.4) M/uL Hgb 11.7 L (12.0-16.0) g/dL Hct 37.1 (37-47) % MCV 102.2 H (80-100) fL MCH 32.2 (25-34) pg MCHC 31.5 L (32-36) g/dL RDW Std Deviation 59.7 H (36.4-46.3) fL RDW Coeff of Rico 15.9 H (11.5-14.5) % Plt Count 192 (130-400) K/uL MPV 9.4 (7.4-10.4) fL Immature Gran % (Auto) 0.3 % Neut % (Auto) 74.1 % Lymph % (Auto) 9.7 % [place] % (Auto) 11.8 % Eos % (Auto) 3.8 % Baso % (Auto) 0.3 % Neut # (Auto) 5.11 (1.4-6.5) K/uL Lymph # (Auto) 0.67 L (1.2-3.4) K/uL [place] # (Auto) 0.81 H (0.11-0.59) K/uL Eos # (Auto) 0.26 (0-0.5) K/uL Baso # (Auto) 0.02 (0-0.2) K/uL Immature Gran # (Auto) 0.02 (0.00-0.02) K/uL ESR 39 H (0-30) mm/hr Sodium 138 (136-145) mmol/L Potassium 4.5 (3.5-5.1) mmol/L Chloride 106 (98-107) mmol/L Carbon Dioxide 25 (21-32) mmol/L Anion Gap 7.0 (3-11) BUN 36 H (7-18) mg/dl Creatinine 3.80 H (0.6-1.2) mg/dl Est Cr Clr Drug Dosing Not Reportable Est GFR ( Amer) 13.6 ml/min Est GFR (Non-Af Amer) 11.8 ml/min BUN/Creatinine Ratio 9.4 L (10-20) Glucose 75 (70-99) mg/dl POC Glucose (70-99) mg/dl Calcium 9.7 (8.5-10.1) mg/dl Total Bilirubin 0.6 (0.2-1) mg/dl AST 21 (15-37) U/L ALT 30 (12-78) U/L Alkaline Phosphatase 103 (45-117) U/L C-Reactive Protein 1.99 H (0-0.29) mg/dl Total Protein 9.4 H (6.4-8.2) gm/dl Albumin 4.2 (3.4-5.0) gm/dl Globulin 5.2 H (2.5-4.0) gm/dl Albumin/Globulin Ratio 0.8 L (0.9-2) SARS-CoV-2, RNA, NAAT (NEGATIVE) Diagnostic Findings Patient:ZAK MORLEY Admit Date:04/13/21 MR#:[id number] Address1:[address] [place] [address] Acct ID:[id number] Address2:[address] Date:1955 [facility] Zip:[place] [address] Age:65 Location:ED Sex:F Room/Bed: Att Phy: Diagnosis:WOUND ON R FOOT/REF BY DIALYSIS Tegan Phy:Melissa Bronson DO Service Date:04/13/21 [facility] Phy: Interpreting [facility] Phy: Ordering Phy:Rian Adan M.D. cc: ~ XR foot RT min 3V routine HISTORY: 65 years-old Female wound acute pain of the right foot with reported soft tissue wound COMPARISON: Right ankle radiographs 05/13/2019 TECHNIQUE: 3 views of the right foot FINDINGS: Diffuse soft tissue prominence. Demineralized appearance the bones. Multifocal osteoarthritis is predominantly mild. 2 cannulated screws of the medial malleolus are noted in addition to plate and screw fusion hardware of the distal fibula. There is a suggested 2.3 cm soft tissue ulcer lateral to the base of the fifth metatarsal. No osseous erosions identified. IMPRESSION: 1. Diffuse soft tissue swelling with skin ulcer lateral to the base of the fifth metatarsal. 2. No acute fracture, dislocation or osseous erosion.
--- NOTE | 2021-04-14 20:12 | 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 Note ---
Date of Service: April 14, 2021 delayed entry date of service noted above chart reviewed, labs reviewed seen resting in bed, comfortable minimal discomfort on the R foot no other symptoms R foot wound r/o OM continue IV Abx Ortho consult Sheldon Hurst MD
[2021-04-14] MEDS: CEFEPIME 1,000 MG in SYRINGE 0 ML IV SCH (21:41)
[2021-04-14] MEDS: amLODIPine BESYLATE 5 MG TAB PO SCH (21:55)
[2021-04-14] MEDS: INSULIN GLARGINE SOLOSTAR 100 UNITS/ML 3 ML PEN SQ SCH (21:57)
[2021-04-15] MEDS: DOXYCYCLINE HYCLATE 100 MG CAP PO SCH ×2 (06:03→18:05)
[2021-04-15] MEDS: HEPARIN SOD 5,000 UNIT/0.5 ML VIAL SQ SCH ×3 (06:04→20:49)
[2021-04-15] MEDS: carvediloL 12.5 MG TAB PO SCH ×2 (08:30→20:49)
[2021-04-15] MEDS: CHOLECALCIFEROL 1,000 UNITS 25 MCG TAB PO SCH (08:31)
[2021-04-15] MEDS: CLOPIDOGREL BISULFATE 75 MG TAB PO SCH (08:31)
--- NOTE | 2021-04-15 08:31 | Magnetic Resonance Report ---
MR foot RT w/o con HISTORY: Right foot skin ulcer. Right lateral foot pain. r/o osteomyelitis 5th metatarsal TECHNIQUE: Multiplanar multisequence MRI of the right forefoot was performed without contrast accordi ng to standard departmental protocol. COMPARISON STUDY: Right foot radiograph 04/13/2021. FINDINGS: There is mild dorsal subcutaneous edema within the forefoot. There is also edema within the plantar muscles of the foot. This is nonspecific but could represent denervation injury. No definite fracture or dislocation within the visualized foot. The Lisfranc joint appears aligned. Focal subcut aneous edema within the plantar aspect of the lateral foot at the level of the base of the fifth meta tarsal. There appears to be a focal skin ulceration at this location. Deep to the skin ulceration the re is abnormal T2 hyperintense, T1 hypointense signal within the proximal fifth metatarsal. Therefore , these findings are concerning for an osteomyelitis. This is suboptimally assessed due to the motion artifact at this location. IMPRESSION: 1. Deep to the skin ulceration within the lateral midfoot there is abnormal marrow signal within the base of the fifth metatarsal which is concerning for an osteomyelitis. This is suboptimally assessed due to the motion artifact. 2. No fracture or dislocation within the forefoot. 3. Edema within the plantar muscles which may represent denervation injury. ACT 112: Negative or not required by law. Electronically signed by: Duane Baeza M.D. 04/15/2021 8:30 AM
[2021-04-15] MEDS: FUROSEMIDE 40 MG TAB PO SCH ×2 (08:32→18:04)
[2021-04-15] MEDS: MULTIVITAMIN TAB PO SCH (08:32)
[2021-04-15] MEDS: hydrALAZINE HCL 25 MG TAB PO SCH ×3 (08:32→20:49)
[2021-04-15] MEDS: NEPHROCAPS PO SCH (08:33)
[2021-04-15] MEDS: CALCIUM ACETATE 667 MG CAP/TAB PO SCH ×3 (08:36→18:04)
[2021-04-15] MEDS: INSULIN ASPART 100 UNITS/ML 3 ML PEN SC SCH ×4 (09:15→20:46)
--- NOTE | 2021-04-15 11:43 | Nephrology Progress Note ---
Date of Service April 15, 2021 Assessment & Plan (1) End stage renal failure on dialysis: (2) Diabetic infection of right foot: (3) Anemia due to chronic kidney disease: (4) Foot osteomyelitis, right: (5) Type 2 diabetes mellitus: Plan: End-stage renal disease secondary to diabetic nephropathy, on hemodialysis via right IJ tunneled dialysis catheter. Admitted with a right foot chronic diabetic nonhealing ulcer and osteomyelitis. -- Currently on doxycycline and cefepime -- plan for dialysis tomorrow as her regular schedule -- dose medications for GFR less than 10, -- left arm nephrology precaution for future vascular access. follow. Admission and Anticipated Discharge Date Admission Date: April 14, 2021 Joan Gr was seen and examined in her room this morning. She is otherwise asymptomatic, no pain in her right foot, no fever or chills, no shortness of breath or chest pain. Overall she is very emotional. Blood pressure acceptable. Electrolyte and volume status acceptable. Review of Systems Review of Systems: Detailed review of system was otherwise unremarkable. Physical Exam Constitutional: WD/WN, vitals as above no acute distress Eyes: + anicteric sclerae ENMT: Ears: no hearing impairment and no external ear abnormality Nose: nasal mucous membranes not dry Neck: normal visual inspection Respiratory: normal respiratory effort; no respiratory distress Auscultation: lungs clear to auscultation bilaterally Cardiovascular: Rate/Rhythm: regular rate and regular rhythm Heart Sounds: normal S1 and normal S2 Extremities: no edema Musculoskeletal: Rt foot with ulceration and surrounding erythema. Skin: normal turgor; no rashes Neurologic: no focal motor deficits and not confused Psychiatric: Orientation: alert and oriented x 3 Results & Data ([facility]) Vital Signs (Past 12 Hours) Vital Signs Temp Pulse Pulse Resp BP Pulse Ox 04/15/21 07:29 36.8 C 63 22 127/72 97 04/15/21 04:50 36.9 C 67 18 119/70 92 04/15/21 02:49 36.9 C 65 16 101/48 L 98 PG Care Time/CCT Total # of Minutes Spent Total Time Spent with Patient: Total time spent is greater than 50% in coordination of care (as documented) at patient's floor/unit and/or counseling patient: Coding Level of Care Code 96332 Subseq Hosp Care Lvl 2 Diagnoses End stage renal failure on dialysis N18.6; Z99.2 Diabetic infection of right foot E11.628; L08.9 Anemia due to chronic kidney disease N18.9; D63.1 Foot osteomyelitis, right M86.9 Type 2 diabetes mellitus E11.22; N18.6; Z79.4; Z99.2 Chronic kidney disease stage: on chronic dialysis Diabetes mellitus complication detail: with chronic kidney disease Diabetes mellitus complication status: with kidney complications Diabetes mellitus long term care phlebotomist insulin use: with prison use (1) Type 2 diabetes mellitus Chronic kidney disease stage: on chronic dialysis Diabetes mellitus complication detail: with chronic kidney disease Diabetes mellitus complication status: with kidney complications Diabetes mellitus prison insulin use: with prison use Qualified Code(s): E11.22 - Type 2 diabetes mellitus with diabetic chronic kidney disease; N18.6 - End stage renal disease; Z79.4 - custodial (current) use of insulin; Z99.2 - Dependence on renal dialysis
--- NOTE | 2021-04-15 16:11 | 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 Note ---
Date of Service: April 15, 2021 Patient was seen and examined while resting comfortably in bed. No acute distress. Answers all questions appropriately. No active discomfort in the r ight lower extremity. Physical exam of the right foot demonstrates stable ulceration at the base of the fifth metatarsal with local granulation and periwound slough. Surrounding region of local cellulitis and local edema. No tenderness to palpation due to neuropathy. Fixed varus deformity of the right lower extremity. Sensation consistent with neuropathy. Dorsalis pedis and posterior pulse 2 out of 4. Laboratories and studies reviewed. Chronic osteomyelitis base the fifth metatarsal without evidence of abscess or fluid collection. Impression: Osteomyelitis base the fifth right metatarsal; right diabetic/neuropathic ulceration base of fifth metatarsal and lateral posterior heel; Fixed varus deformity right lower extremity; cellulitis right lower extremity. Recommendation: Nonoperative management at this time. Daily dressing changes right lateral heel and base of fifth metatarsal ulcerations. Nonweightbearing right lower extremity. Continue IV antibiotic therapy for period of [address] Acharya in orthopedic clinic in 2 to 3 weeks for reassessment.
--- NOTE | 2021-04-15 19:58 | Hospitalist Progress Note ---
Date of Service April 15elayed entry date of service noted above Assessment & Plan (1) Asymptomatic hypertensive urgency: Plan: [facility], [id number] Hospitalist Progress Note Signed Patient:ZAK MORLEY Admit Date:04/14/21 MR#:[id number] Att Phy:Sheldon Hurst MD Acct ID:[id number] Tegan Phy:Melissa Bronson DO Date:1955 Fam Phy: Age:65 Location:2N Sex:F Room/Bed:N283-2 cc: ~ *NOTICE TO RECEIVING DEMOCRAT/AGENCY This information is strictly Confidential and protected under [place] law. [place] law prohibits you from making any further disclosure of this information unless further disclosure is expressly permitted by the written consent of the person to whom it pertains or is authorized by law. A general authorization for the release of medical or other information is not sufficient for this purpose. Hospital accepts no responsibility if the information is made available to any other person, INCLUDING THE PATIENT. Date of Service April 16, 2021 Assessment & Plan (1) Asymptomatic hypertensive urgency: Plan: Diabetic foot infection, right hx history osteomyelitis as per records -- evaluated by Ortho -- Foot MRI: possible osteomyelitis -- continue IV Abx non surgical per Ortho chronic diastolic heart failure (EF 55 to 60%, TTE 2020), euvolemic ESRD on HD DM 2 insulin requiring, reasonable control as of recent hemoglobin A1c of 7.20 October 2020 chronic anemia, hemoglobin at baseline DVT prophylaxis. Heparin subcu Full code Admission and Anticipated Discharge Date Admission Date: April 14, 2021 Subjective ff for r foot OM, etc seen resting in bed, comfortable no chest pain, dyspnea, palpitations, dizziness no fever/chills, has minimal R foot pain no other symptoms Review of Systems Review of Systems: all noted and negative except for above Physical Exam Physical Exam: General- oriented x 3, not in distress, speaks in sentences with no effort or accessory muscle use Eyes- anicteric Neck- no JVD Lungs- clear BS BL, no rales/wheezes Heart- normal rate, regular rhythm; no murmurs Abdomen- normal bowel sounds, nondistended, soft, nontender Extremities- no pretibial edema, no calf tenderness R foot- wound open on the 5th MT aspect, no bleeding, minimal discharge with surrounding erythema Neuro- alert, oriented x 3; no gross focal neurologic deficits Skin- warm & dry Results & Data Results & Data ([facility]) Vital Signs (Past 12 Hours) Vital Signs Temp Pulse Resp BP Pulse Ox 04/15/21 15:41 36.5 C 68 20 125/69 97
[2021-04-15] MEDS: INSULIN GLARGINE SOLOSTAR 100 UNITS/ML 3 ML PEN SQ SCH (20:46)
[2021-04-15] MEDS: amLODIPine BESYLATE 5 MG TAB PO SCH (20:48)
[2021-04-15] MEDS: CEFEPIME 1,000 MG in SYRINGE 0 ML IV SCH (20:55)
[2021-04-16] MEDS: HEPARIN SOD 5,000 UNIT/0.5 ML VIAL SQ SCH ×2 (06:27→16:09)
[2021-04-16] MEDS: DOXYCYCLINE HYCLATE 100 MG CAP PO SCH ×2 (06:27→17:36)
[2021-04-16] MEDS: CALCIUM ACETATE 667 MG CAP/TAB PO SCH ×3 (08:24→17:35)
[2021-04-16] MEDS: CHOLECALCIFEROL 1,000 UNITS 25 MCG TAB PO SCH (08:25)
[2021-04-16] MEDS: MULTIVITAMIN TAB PO SCH (08:26)
[2021-04-16] MEDS: CLOPIDOGREL BISULFATE 75 MG TAB PO SCH (08:26)
[2021-04-16] MEDS: NEPHROCAPS PO SCH (08:27)
[2021-04-16] MEDS: INSULIN ASPART 100 UNITS/ML 3 ML PEN SC SCH ×4 (08:54→21:27)
[2021-04-16 10:38] LABS: iSTAT Arterial Blood Gas HCO3 23 meg/L (19-24); iSTAT Arterial Blood Gas pCO2 45 mmHg (35-46); iSTAT Arterial Blood Gas pH 7.31 (7.35-7.45); iSTAT Arterial Blood Gas pO2 79 mmHg (80-95); iSTAT Carbon Dioxide 24 mmol/L (24-31); iSTAT Hematocrit 31 % (37-47); iSTAT Hemoglobin 10.5 g/dl (12.0-16.0); iSTAT Sodium 140 mmol/L (135-144)
--- NOTE | 2021-04-16 10:40 | CT Scan Report ---
CT head/brain wo con CLINICAL HISTORY: 65 years-old Female with r/o CVA. Acutely altered mental status with strokelike sy mptoms TECHNIQUE: Multiple axial CT images of the head were obtained without contrast. A dose lowering tech nique was utilized adhering to the principles of ALARA. CT DOSE: 537.48 mGy.cm COMPARISON: Head CT 01/18/2021 FINDINGS: No acute intracranial hemorrhage, midline shift, intracranial mass, hydrocephalus, territorial ischem ia or abnormal extra-axial collection. The calvarium is intact. The paranasal sinuses, mastoid air cells, and middle ear cavities are clear . IMPRESSION: No acute intracranial abnormality. ACT 112: Negative or not required by law. The above report was generated using voice recognition software. It may contain grammatical, syntax o r spelling errors. Electronically signed by: Jesus Glass M.D. 04/16/2021 10:39 AM
--- NOTE | 2021-04-16 11:01 | XRay Report ---
XR chest 1V portable HISTORY: 65 years-old Female hypoxia, r/o aspiration acute hypoxia. COMPARISON: Chest radiograph 01/18/2021 TECHNIQUE: Portable AP view the chest FINDINGS: The cardiac silhouette is mildly enlarged. Pulmonary vascular congestion. No pneumothorax or large pl eural effusion. Trace pleural effusions. Right IJ dual-lumen hemodialysis catheter distal tip project s over the superior cavoatrial junction. Degenerative changes of the shoulders and spine. IMPRESSION: 1. Cardiomegaly with pulmonary vascular congestion. 2. Trace pleural effusions. 3. Right IJ hemodialysis catheter in stable positioning. ACT 112: Negative or not required by law. The above report was generated using voice recognition software. It may contain grammatical, syntax o r spelling errors. Electronically signed by: Jesus Glass M.D. 04/16/2021 10:59 AM
[2021-04-16 11:32] LABS: Basophils # (auto) 0.02 K/uL (0-0.2); Basophils % (auto) 0.3 %; Eosinophils # (auto) 0.17 K/uL (0-0.5); Eosinophils % (auto) 2.3 %; Immature Granulocytes # (auto) 0.03 K/uL (0.00-0.02); Immature Granulocytes % (auto) 0.4 %; Lymphocytes % (auto) 13.6 %; Mean Corpuscular Hemoglobin 31.8 pg (25-34); Mean Corpuscular Hgb Conc 31.3 g/dL (32-36); Mean Corpuscular Volume 101.9 fL (80-100); Monocytes # (auto) 0.66 K/uL (0.11-0.59); Neutrophils # (auto) 5.49 K/uL (1.4-6.5); Neutrophils % (auto) 74.4 %; Platelet Count 77 K/uL (130-400); Platelet Estimate Decreased (Normal); RDW Coefficient of Variation 15.5 % (11.5-14.5); RDW Standard Deviation 57.3 fL (36.4-46.3); Red Blood Count 3.14 M/uL (4.2-5.4); White Blood Count 7.37 K/uL (4.8-10.8)
--- NOTE | 2021-04-16 11:35 | Nephrology Progress Note ---
Date of Service April 16, 2021 Assessment & Plan (1) End stage renal failure on dialysis: (2) Diabetic infection of right foot: (3) Anemia due to chronic kidney disease: (4) Foot osteomyelitis, right: (5) Type 2 diabetes mellitus: Plan: End-stage renal disease secondary to diabetic nephropathy, on hemodialysis via right IJ tunneled dialysis catheter. Admitted with a right foot chronic diabetic nonhealing ulcer and osteomyelitis. H/O repeated episode of unresponsiveness during HD , 3 times over last few month ( 11/27/20. 12/04/20, 01/18/21). Detail w/u was unremarkable. Again had episode of unresponsiveness during HD this morning in around 1 h into HD treatment. BP, HR was normal. BBG was normal. She vomited and became unresponsive, AUTO TOP MECHANIC was called. Currently she is responding and following commands, speech normal, moving all extremities. -- getting neuro eval, recommended CT angio for further eval, ideally would like to do HD after angio but it would be risky to try another HD today, so if angio recommended by neuro it would be fine as she is ESRD. -- Currently on doxycycline and cefepime -- plan for dialysis tomorrow as her regular schedule -- dose medications for GFR less than 10, -- left arm nephrology precaution for future vascular access. follow. Admission and Anticipated Discharge Date Admission Date: April 14, 2021 Joan Gr was seen and examined in her room this morning. She is otherwise asymptomatic, no pain in her right foot, no fever or chills, no shortness of breath or chest pain. Overall she is very emotional. Blood pressure acceptable. Electrolyte and volume status acceptable. Review of Systems Review of Systems: Detailed review of system was otherwise unremarkable. Physical Exam Constitutional: WD/WN, vitals as above + ill appearing and + lethargic; no acute distress Eyes: + anicteric sclerae ENMT: Ears: no hearing impairment and no external ear abnormality Nose: nasal mucous membranes not dry Neck: normal visual inspection Respiratory: normal respiratory effort; no respiratory distress Auscultation: lungs clear to auscultation bilaterally Cardiovascular: Rate/Rhythm: regular rate and regular rhythm Heart Sounds: normal S1 and normal S2 Extremities: no edema Skin: normal turgor; no rashes Neurologic: no focal motor deficits and not confused Psychiatric: Orientation: alert and oriented x 3 Results & Data ([facility]) Vital Signs (Past 12 Hours) Vital Signs Temp Pulse Resp BP Pulse Ox 04/16/21 07:36 36.7 C 62 16 111/64 96 PG Care Time/CCT Total # of Minutes Spent Total Time Spent with Patient: Total time spent is greater than 50% in coordination of care (as documented) at patient's floor/unit and/or counseling patient: Coding Level of Care Code 99420 Subseq Hosp Care Lvl 3 Diagnoses End stage renal failure on dialysis N18.6; Z99.2 Diabetic infection of right foot E11.628; L08.9 Anemia due to chronic kidney disease N18.9; D63.1 Foot osteomyelitis, right M86.9 Type 2 diabetes mellitus E11.22; N18.6; Z79.4; Z99.2 Chronic kidney disease stage: on chronic dialysis Diabetes mellitus complication detail: with chronic kidney disease Diabetes mellitus complication status: with kidney complications Diabetes mellitus tank terminal gauger insulin use: with shelter use (1) Type 2 diabetes mellitus Chronic kidney disease stage: on chronic dialysis Diabetes mellitus complication detail: with chronic kidney disease Diabetes mellitus complication status: with kidney complications Diabetes mellitus shelter insulin use: with tank terminal gauger use Qualified Code(s): E11.22 - Type 2 diabetes mellitus with diabetic chronic kidney disease; N18.6 - End stage renal disease; Z79.4 - tank terminal gauger (current) use of insulin; Z99.2 - Dependence on renal dialysis
[2021-04-16 11:37] LABS: Alanine Aminotransferase 21 U/L (12-78); Albumin Globulin Ratio 0.7 (0.9-2); Albumin Level 3.3 gm/dl (3.4-5.0); Alkaline Phosphatase 80 U/L (45-117); Aspartate Aminotransferase 17 U/L (15-37); BUN Creatinine Ratio 10.7 (10-20); Bilirubin,Total 0.4 mg/dl (0.2-1); Blood Urea Nitrogen 65 mg/dl (7-18); Calcium 8.8 mg/dl (8.5-10.1); Carbon Dioxide 23 mmol/L (21-32); Chloride 107 mmol/L (98-107); Creatinine Clr Calc Pharmacy 8.8 ml/min; Est GFR (African American) 7.7 ml/min; Est GFR (Non-African American) 6.7 ml/min; Globulin 4.4 gm/dl (2.5-4.0); Glucose 150 mg/dl (70-99); Sodium 138 mmol/L (136-145); Total Protein 7.7 gm/dl (6.4-8.2); Troponin I < 0.015 ng/ml (0-0.045)
[2021-04-16] MEDS: FUROSEMIDE 40 MG TAB PO SCH ×2 (13:13→17:36)
[2021-04-16] MEDS: carvediloL 12.5 MG TAB PO SCH ×2 (13:13→21:24)
[2021-04-16] MEDS: hydrALAZINE HCL 25 MG TAB PO SCH ×3 (13:14→21:24)
[2021-04-16] MEDS ORDERED: PHARMACIST DISCHARGE MED REC CONSULT PRN (19:14)
--- NOTE | 2021-04-16 19:40 | Hospitalist Progress Note ---
Date of Service April 16, 2021 Assessment & Plan (1) Asymptomatic hypertensive urgency: Plan: Diabetic foot infection, right hx history osteomyelitis as per records -- evaluated by Ortho -- Foot MRI: possible osteomyelitis -- continue IV Abx awaiting further recommendations per Ortho Syncopal episode -- Stroke Telemedicine consult performed -- TPA not recommended -- Brain MRI, MRA head and neck, EEG, Echo ordered add Lipitor continue Plavix chronic diastolic heart failure (EF 55 to 60%, TTE 2020), euvolemic ESRD on HD DM 2 insulin requiring, reasonable control as of recent hemoglobin A1c of 7.20 October 2020 chronic anemia, hemoglobin at baseline DVT prophylaxis. Heparin subcu Full code Admission and Anticipated Discharge Date Admission Date: April 14, 2021 Subjective ff up for R foot cellulitis, etc code purple called while on HD patient was sleeping, noted to have emesis, unresponsive difficult to arouse VS stable BSG normal slowly able to open eyes, answer some questions stroke alert called CT head negative telemedicine performed, patient already more awake, conversant but tired Brain MRI, etc ordered no chest pain, dyspnea, palpitations, dizziness no other symptoms apparently had 3-4 similar episodes during outpatient HD per Nephro- Dr. Penn Review of Systems Review of Systems: all noted and negative except for above Physical Exam Physical Exam: General- oriented x 2, not in distress, speaks in sentences with no effort or accessory muscle use Eyes- anicteric Neck- no JVD Lungs- clear BS BL Heart- normal rate, regular rhythm; no murmurs Abdomen- normal bowel sounds, nondistended, soft, nontender Extremities- no pretibial edema, no calf tenderness Neuro-drowsy, oriented x 2; no gross focal neurologic deficits Skin- warm & dry Results & Data Results & Data ([facility]) Vital Signs (Past 12 Hours) Vital Signs Temp Pulse Pulse Pulse Resp BP BP 04/16/21 17:02 36.8 C 75 16 149/67 H 04/16/21 13:09 36.3 C L 70 18 106/67 04/16/21 10:30 36.6 C 68 147/68 H 04/16/21 10:11 71 161/71 H 04/16/21 10:00 68 146/72 H 04/16/21 09:40 67 135/60 04/16/21 09:31 67 123/57 L 04/16/21 09:20 36.6 C 65 04/16/21 07:36 36.7 C 62 16 111/64 Pulse Ox 04/16/21 17:02 96 04/16/21 13:09 95 04/16/21 10:30 04/16/21 10:11 04/16/21 10:00 04/16/21 09:40 04/16/21 09:31 04/16/21 09:20 04/16/21 07:36 96 all noted and reviewed including below
--- NOTE | 2021-04-16 20:47 | Magnetic Resonance Report ---
MR brain wo con CLINICAL HISTORY: Febrile episode while undergoing dialysis.. Evaluate for CVA. COMPARISON STUDY: CT brain without contrast 04/16/2021 TECHNIQUE: Multiplanar multisequence images of the Brain were performed without IV contrast. Diffusi on weighted imaging and ADC mapping was also performed. FINDINGS: Extra-axial space: There is no evidence for a subdural hematoma, There are no extra-axial fluid ariana ections. Ventricles and cisterns: The ventricles are normal in size and configuration. There is no evidence f or midline shift or mass effect. Parenchyma: There is no evidence for an acute hemorrhage or infarct. No acute diffusion abnormalities are noted on diffusion weighted imaging or ADC mapping. There is normal matthews-white differentiation. The sulci and gyri appear normal without effacement. The midline structures are unremarkable. The po sterior fossa structures appear normal. There is no evidence for mass lesion. Incidental note is made of an empty sella. Osseous structures: The paranasal sinuses are well aerated. There is mucosal thickening involving the mastoid air cells bilaterally, left greater than right. Soft tissues: No focal soft tissue abnormalities are identified. IMPRESSION: No acute intracranial abnormalities. Bilateral mastoiditis. ACT 112: Negative or not required by law. Electronically signed by: Pj Moura M.D. 04/16/2021 8:46 PM
--- NOTE | 2021-04-16 21:21 | Magnetic Resonance Report ---
MR angio head wo con CLINICAL HISTORY: syncope, L eye visual deficit, evaluate for cva. COMPARISON: CT brain without contrast and MRI of the brain from 04/16/2021 TECHNIQUE: 3-D time of flight MR angiographic images of the brain were also obtained without IV contr ast. FINDINGS: Posterior circulation: Both vertebral arteries, the basilar artery, and both posterior cerebral arter ies are patent. Anterior circulation: Both internal carotid arteries are patent. The anterior cerebral and middle cer ebral arteries are patent bilaterally. No arterial occlusion, hemodynamically significant stenosis, aneurysm, or vascular malformation is se en. IMPRESSION: Normal MRA of the cerebral circulation for the patient's age. ACT 112: Negative or not required by law. Electronically signed by: Pj Moura M.D. 04/16/2021 9:19 PM
[2021-04-16] MEDS: amLODIPine BESYLATE 5 MG TAB PO SCH (21:24)
--- NOTE | 2021-04-16 21:26 | Magnetic Resonance Report ---
MR angio neck wo con CLINICAL HISTORY: syncope, L eye visual deficit, evaluate for cva COMPARISON STUDY: No previous studies for comparison. TECHNIQUE: Noncontrast CT Angio of the neck was performed.followed by image post processing with veronica nal, and sagittal MIP reformats.. Stenosis assessment by NASCET criteria. Contrast Volume: None FINDINGS: This study is limited by lack of intravenous contrast. Vascular findings: Right common carotid artery: Patent without significant stenosis. Right internal carotid artery: Patent without significant stenosis. Right vertebral artery: Not seen Left common carotid artery: Patent without significant stenosis. Left internal carotid artery: Patent without significant stenosis. Left vertebral artery: Not seen Nonvascular findings: Poorly imaged Impression: Grossly limited examination due to lack of intravenous contrast. No gross evidence for st enosis is seen. ACT 112: Negative or not required by law. Electronically signed by: Pj Moura M.D. 04/16/2021 9:25 PM
[2021-04-16] MEDS: INSULIN GLARGINE SOLOSTAR 100 UNITS/ML 3 ML PEN SQ SCH (21:28)
[2021-04-16] MEDS: CEFEPIME 1,000 MG in SYRINGE 0 ML IV SCH (21:31)
[2021-04-17] MEDS: DOXYCYCLINE HYCLATE 100 MG CAP PO SCH ×2 (05:47→17:16)
[2021-04-17 06:57] LABS: Hematocrit (blood only) 28.3 % (37-47); Hemoglobin 8.9 g/dL (12.0-16.0); Mean Corpuscular Hgb Conc 31.4 g/dL (32-36); Mean Corpuscular Volume 101.8 fL (80-100); Mean Platelet Volume 9.2 fL (7.4-10.4); Platelet Count 120 K/uL (130-400); RDW Coefficient of Variation 15.5 % (11.5-14.5); RDW Standard Deviation 58.1 fL (36.4-46.3); Red Blood Count 2.78 M/uL (4.2-5.4)
[2021-04-17 07:31] LABS: Albumin Level 2.8 gm/dl (3.4-5.0); BUN Creatinine Ratio 10.3 (10-20); Calcium 8.7 mg/dl (8.5-10.1); Creatinine Clr Calc Pharmacy 6.9 ml/min; Est GFR (African American) 5.7 ml/min; Est GFR (Non-African American) 4.9 ml/min; Phosphorus 7.6 mg/dl (2.5-4.9); Potassium 4.6 mmol/L (3.5-5.1)
[2021-04-17 07:36] LABS: Estimated Average Glucose 131 mg/dl; Hemoglobin A1C 6.2 % (4.5-5.6)
[2021-04-17 07:48] LABS: Basophils # (auto) 0.02 K/uL (0-0.2); Basophils % (auto) 0.4 %; Eosinophils # (auto) 0.14 K/uL (0-0.5); Eosinophils % (auto) 2.5 %; Immature Granulocytes # (auto) 0.01 K/uL (0.00-0.02); Immature Granulocytes % (auto) 0.2 %; Lymphocytes # (auto) 0.98 K/uL (1.2-3.4); Lymphocytes % (auto) 17.2 %; Monocytes # (auto) 0.77 K/uL (0.11-0.59); Monocytes % (auto) 13.5 %; Neutrophils # (auto) 3.78 K/uL (1.4-6.5); Neutrophils % (auto) 66.2 %
[2021-04-17] MEDS: carvediloL 12.5 MG TAB PO SCH ×2 (08:12→20:29)
[2021-04-17] MEDS: INSULIN ASPART 100 UNITS/ML 3 ML PEN SC SCH ×4 (08:12→20:30)
[2021-04-17] MEDS: MULTIVITAMIN TAB PO SCH (08:13)
[2021-04-17] MEDS: CALCIUM ACETATE 667 MG CAP/TAB PO SCH ×3 (08:13→17:16)
[2021-04-17] MEDS: ATORVASTATIN 40 MG TAB PO SCH (08:13)
[2021-04-17] MEDS: CLOPIDOGREL BISULFATE 75 MG TAB PO SCH (08:13)
[2021-04-17] MEDS: NEPHROCAPS PO SCH (08:13)
[2021-04-17] MEDS: hydrALAZINE HCL 25 MG TAB PO SCH ×3 (08:13→20:29)
[2021-04-17] MEDS: FUROSEMIDE 40 MG TAB PO SCH ×2 (08:13→17:16)
[2021-04-17] MEDS: CHOLECALCIFEROL 1,000 UNITS 25 MCG TAB PO SCH (08:14)
--- NOTE | 2021-04-17 12:02 | Nephrology Progress Note ---
Date of Service April 17, 2021 Assessment & Plan (1) End stage renal failure on dialysis: (2) Diabetic infection of right foot: (3) Anemia due to chronic kidney disease: (4) Foot osteomyelitis, right: (5) Type 2 diabetes mellitus: Plan: End-stage renal disease secondary to diabetic nephropathy, on hemodialysis via right IJ tunneled dialysis catheter. Admitted with a right foot chronic diabetic nonhealing ulcer and osteomyelitis. H/O repeated episode of unresponsiveness during HD , 3 times over last few month ( 11/27/20. 12/04/20, 01/18/21). Detail w/u was unremarkable. MRI and MRA of brain and neck was otherwise unremarkable. Had good neuro evaluation and there was no clear explanation of the episode of syncope Currently she is otherwise asymptomatic, responding and following commands, speech normal, moving all extremities. -- plan for dialysis this afternoon as she did not really have dialysis treatment yesterday -- dose medications for GFR less than 10, -- left arm nephrology precaution for future vascular access. Will follow. Admission and Anticipated Discharge Date Admission Date: April 14, 2021 Joan Gr was seen and examined in her room this morning. She is otherwise asymptomatic since the episode of syncope during dialysis yesterday, symptom totally resolved, no pain in her right foot, no fever or chills, no shortness of breath or chest pain. Blood pressure acceptable. Electrolyte and volume status acceptable. Review of Systems Review of Systems: Detailed review of system was otherwise unremarkable. Physical Exam Constitutional: WD/WN, vitals as above + ill appearing and + lethargic; no acute distress Eyes: + anicteric sclerae ENMT: Ears: no hearing impairment and no external ear abnormality Nose: nasal mucous membranes not dry Neck: normal visual inspection Respiratory: normal respiratory effort; no respiratory distress Auscultation: lungs clear to auscultation bilaterally Cardiovascular: Rate/Rhythm: regular rate and regular rhythm Heart Sounds: normal S1 and normal S2 Extremities: no edema Skin: normal turgor; no rashes Neurologic: no focal motor deficits and not confused Psychiatric: Orientation: alert and oriented x 3 Results & Data ([facility]) Vital Signs (Past 12 Hours) Vital Signs Temp Pulse Pulse Resp BP Pulse Ox 04/17/21 11:20 36.7 C 64 18 113/57 L 95 04/17/21 08:01 36.7 C 72 20 121/55 L 94 11/27/21 07:06 65 04/17/21 03:43 37.0 C 68 18 115/58 L 92 04/17/21 00:45 78 PG Care Time/CCT Total # of Minutes Spent Total Time Spent with Patient: Total time spent is greater than 50% in coordination of care (as documented) at patient's floor/unit and/or counseling patient: Coding Level of Care Code 87525 Subseq Hosp Care Lvl 2 Diagnoses End stage renal failure on dialysis N18.6; Z99.2 Diabetic infection of right foot E11.628; L08.9 Anemia due to chronic kidney disease N18.9; D63.1 Foot osteomyelitis, right M86.9 Type 2 diabetes mellitus E11.22; N18.6; Z79.4; Z99.2 Chronic kidney disease stage: on chronic dialysis Diabetes mellitus complication detail: with chronic kidney disease Diabetes mellitus complication status: with kidney complications Diabetes mellitus halfway insulin use: with sales operations coordinator use (1) Type 2 diabetes mellitus Chronic kidney disease stage: on chronic dialysis Diabetes mellitus complication detail: with chronic kidney disease Diabetes mellitus complication status: with kidney complications Diabetes mellitus sales operations coordinator insulin use: with sales operations coordinator use Qualified Code(s): E11.22 - Type 2 diabetes mellitus with diabetic chronic kidney disease; N18.6 - End stage renal disease; Z79.4 - parking cashier (current) use of insulin; Z99.2 - Dependence on renal dialysis
[2021-04-17] MEDS ORDERED: EPOETIN ALFA 20,000 UNITS/ML VIAL IV STA (12:29)
--- NOTE | 2021-04-17 14:57 | Hospitalist Progress Note ---
Date of Service April 17, 2021 Assessment & Plan (1) Asymptomatic hypertensive urgency: Plan: Diabetic foot infection, right hx history osteomyelitis as per records -- afebrile wound cx: skin carla blood cultures: negative -- evaluated by Ortho Dr. Acharya, recommendation: "Nonoperative management at this time. Daily dressing changes right lateral heel and base of fifth metatarsal ulcerations. Nonweightbearing right lower extremity. Continue IV antibiotic therapy for period of 6 weeks." -- Foot MRI: possible osteomyelitis -- continue IV Cefepime + Doxycycline will consult ID Syncopal episode -- happened 15 mins into her HD session 04/16/21, followed by emesis while unconscious -- Stroke Telemedicine consult performed -- TPA not recommended -- Brain MRI: negative MRA head and neck: no abnormalities noted EEG: pending Echo: mild concentric LVH -- add Lipitor continue Plavix -- per Outpatient Phlebotomist, patient has had syncopal episodes during HD 3-4 x in the past few months VS stable during occurrences no clear etiology established so far -- will have Fagoter and Neurologist evaluate the patient chronic diastolic heart failure (EF 55 to 60%, TTE 2020), euvolemic ESRD on HD DM 2 insulin requiring, reasonable control as of recent hemoglobin A1c of 7.20 October 2020 chronic anemia, hemoglobin at baseline DVT prophylaxis. Heparin subcu Full code Admission and Anticipated Discharge Date Admission Date: April 14, 2021 Subjective ff up for R foot wound infection, possible OM, etc seen resting in bed, sitting up, HD in progress alert, oriented x 3, in good spirits states she feels better overall no chest pain, dyspnea, palpitations, dizziness no headache, focal weakness/numbness/neuro symptoms no fever/chills, abdominal pain, nausea no other symptoms Review of Systems Review of Systems: all noted and negative except for above Physical Exam Physical Exam: General- oriented x 3, not in distress, speaks in sentences with no effort or accessory muscle use Eyes- anicteric Neck- no JVD Lungs- clear BS BL no rales/wheezing Heart- normal rate, regular rhythm; no murmurs Abdomen- normal bowel sounds, nondistended, soft, nontender Extremities- no pretibial edema, no calf tenderness r foot: Neuro- alert, oriented x 3; no gross focal neurologic deficits Skin- warm & dry Results & Data Results & Data ([facility]) Vital Signs (Past 12 Hours) Vital Signs Temp Pulse Pulse Resp BP Pulse Ox 04/17/21 11:20 36.7 C 64 18 113/57 L 95 04/17/21 08:01 36.7 C 72 20 121/55 L 94 04/17/21 07:06 65 04/17/21 03:43 37.0 C 68 18 115/58 L 92 all noted and reviewed including below
[2021-04-17] MEDS: HEPARIN SOD 5,000 UNIT/0.5 ML VIAL SQ SCH ×2 (15:33→20:31)
[2021-04-17] MEDS: CEFEPIME 1,000 MG in SYRINGE 0 ML IV SCH (20:28)
[2021-04-17] MEDS: amLODIPine BESYLATE 5 MG TAB PO SCH (20:29)
[2021-04-17] MEDS: INSULIN GLARGINE SOLOSTAR 100 UNITS/ML 3 ML PEN SQ SCH (20:30)
[2021-04-18] MEDS: HEPARIN SOD 5,000 UNIT/0.5 ML VIAL SQ SCH ×3 (05:54→21:02)
[2021-04-18] MEDS: DOXYCYCLINE HYCLATE 100 MG CAP PO SCH ×2 (05:54→17:13)
[2021-04-18] MEDS: INSULIN ASPART 100 UNITS/ML 3 ML PEN SC SCH ×4 (08:22→21:03)
[2021-04-18] MEDS: CALCIUM ACETATE 667 MG CAP/TAB PO SCH ×3 (08:23→17:04)
[2021-04-18] MEDS: FUROSEMIDE 40 MG TAB PO SCH ×2 (08:24→17:05)
[2021-04-18] MEDS: CHOLECALCIFEROL 1,000 UNITS 25 MCG TAB PO SCH (08:24)
[2021-04-18] MEDS: carvediloL 12.5 MG TAB PO SCH ×2 (08:24→21:01)
[2021-04-18] MEDS: ATORVASTATIN 40 MG TAB PO SCH (08:25)
[2021-04-18] MEDS: hydrALAZINE HCL 25 MG TAB PO SCH ×3 (08:25→21:02)
[2021-04-18] MEDS: CLOPIDOGREL BISULFATE 75 MG TAB PO SCH (08:25)
[2021-04-18] MEDS: NEPHROCAPS PO SCH (08:25)
[2021-04-18] MEDS: MULTIVITAMIN TAB PO SCH (08:34)
[2021-04-18 09:31] LABS: Basophils # (auto) 0.04 K/uL (0-0.2); Basophils % (auto) 0.6 %; Eosinophils # (auto) 0.32 K/uL (0-0.5); Hematocrit (blood only) 32.3 % (37-47); Hemoglobin 10.4 g/dL (12.0-16.0); Immature Granulocytes # (auto) 0.01 K/uL (0.00-0.02); Immature Granulocytes % (auto) 0.2 %; Lymphocytes # (auto) 1.19 K/uL (1.2-3.4); Lymphocytes % (auto) 18.4 %; Mean Corpuscular Hemoglobin 32.3 pg (25-34); Mean Corpuscular Hgb Conc 32.2 g/dL (32-36); Mean Corpuscular Volume 100.3 fL (80-100); Mean Platelet Volume 9.5 fL (7.4-10.4); Monocytes # (auto) 0.86 K/uL (0.11-0.59); Monocytes % (auto) 13.3 %; Neutrophils # (auto) 4.03 K/uL (1.4-6.5); Neutrophils % (auto) 62.5 %; Platelet Count 126 K/uL (130-400); RDW Coefficient of Variation 15.1 % (11.5-14.5); RDW Standard Deviation 55.8 fL (36.4-46.3); Red Blood Count 3.22 M/uL (4.2-5.4); White Blood Count 6.45 K/uL (4.8-10.8)
[2021-04-18 10:23] LABS: BUN Creatinine Ratio 7.9 (10-20); Calcium 9.1 mg/dl (8.5-10.1); Creatinine Clr Calc Pharmacy 10.5 ml/min; Est GFR (African American) 9.7 ml/min; Est GFR (Non-African American) 8.3 ml/min; Potassium 3.6 mmol/L (3.5-5.1)
--- NOTE | 2021-04-18 11:25 | Nephrology Progress Note ---
Date of Service April 18, 2021 Assessment & Plan (1) End stage renal failure on dialysis: (2) Diabetic infection of right foot: (3) Anemia due to chronic kidney disease: (4) Foot osteomyelitis, right: (5) Type 2 diabetes mellitus: Plan: End-stage renal disease secondary to diabetic nephropathy, on hemodialysis via right IJ tunneled dialysis catheter. Admitted with a right foot chronic diabetic nonhealing ulcer and osteomyelitis. H/O repeated episode of un responsiveness during HD , 3 times over last few month ( 11/27/20. 12/04/20, 01/18/21). Detail w/u was unremarkable. MRI and MRA of brain and neck was otherwise unremarkable. Had good neuro evaluation and there was no clear explanation of the episode of syncope Currently she is otherwise asymptomatic, responding and following commands, speech normal, moving all extremities. -- plan for dialysis Monday. -- dose medications for GFR less than 10, -- left arm nephrology precaution for future vascular access. -- can be discharged once arrangement for antibiotic can be made Will follow. Admission and Anticipated Discharge Date Admission Date: April 14, 2021 Joan Gr was seen and examined in her room this morning. She is otherwise asymptomatic . had dialysis yesterday uneventful. Blood pressure acceptable. Electrolyte and volume status acceptable. Review of Systems Review of Systems: Detailed review of system was otherwise unremarkable. Physical Exam Constitutional: WD/WN, vitals as above no acute distress Respiratory: normal respiratory effort; no respiratory distress Auscultation: lungs clear to auscultation bilaterally Cardiovascular: Rate/Rhythm: regular rate and regular rhythm Heart Sounds: normal S1 and normal S2 Extremities: no edema Neurologic: no focal motor deficits and not confused Psychiatric: Orientation: alert and oriented x 3 Results & Data ([facility]) Vital Signs (Past 12 Hours) Vital Signs Temp Pulse Pulse Resp BP Pulse Ox 04/18/21 07:46 36.5 C 74 18 103/53 L 93 04/18/21 07:00 62 04/18/21 03:05 37.0 C 71 18 127/69 97 PG Care Time/CCT Total # of Minutes Spent Total Time Spent with Patient: Total time spent is greater than 50% in coordination of care (as documented) at patient's floor/unit and/or counseling patient: Coding Level of Care Code 15540 Subseq Hosp Care Lvl 2 Diagnoses End stage renal failure on dialysis N18.6; Z99.2 Diabetic infection of right foot E11.628; L08.9 Anemia due to chronic kidney disease N18.9; D63.1 Foot osteomyelitis, right M86.9 Type 2 diabetes mellitus E11.22; N18.6; Z79.4; Z99.2 Chronic kidney disease stage: on chronic dialysis Diabetes mellitus complication detail: with chronic kidney disease Diabetes mellitus complication status: with kidney complications Diabetes mellitus manager intermediate insulin use: with mcfp use (1) Type 2 diabetes mellitus Chronic kidney disease stage: on chronic dialysis Diabetes mellitus complication detail: with chronic kidney disease Diabetes mellitus complication status: with kidney complications Diabetes mellitus manager intermediate insulin use: with manager intermediate use Qualified Code(s): E11.22 - Type 2 diabetes mellitus with diabetic chronic kidney disease; N18.6 - End stage renal disease; Z79.4 - manager intermediate (current) use of insulin; Z99.2 - Dependence on renal dialysis
--- NOTE | 2021-04-18 12:20 | Hospitalist Progress Note ---
Date of Service April 18, 2021 Assessment & Plan (1) Asymptomatic hypertensive urgency: Plan: Right foot osteomyelitis Diabetic foot infection hx history osteomyelitis as per records -- afebrile wound cx: skin carla blood cultures: negative -- evaluated by Ortho Dr. Acharya, recommendation: "Nonoperative management at this time. Daily dressing changes right lateral heel and base of fifth metatarsal ulcerations. Nonweightbearing right lower extremity. Continue IV antibiotic therapy for period of 6 weeks." -- Foot MRI: possible osteomyelitis -- continue IV Cefepime + Doxycycline Infectious disease consulted Syncopal episode -- happened 15 mins into her HD session 04/16/21, followed by emesis while unconscious -- Stroke Telemedicine consult performed -- TPA not recommended -- Brain MRI: negative MRA head and neck: no abnormalities noted EEG: pending Echo: mild concentric LVH -- add Lipitor continue Plavix -- per Copy Camera Operator, patient has had syncopal episodes during HD 3-4 x in the past few months VS stable during occurrences no clear etiology established so far -- will have Purchaser and Neurologist evaluate the patient --No recurrence during hemodialysis yesterday chronic diastolic heart failure (EF 55 to 60%, TTE 2020), euvolemic ESRD on HD DM 2 insulin requiring, reasonable control as of recent hemoglobin A1c of 7.20 October 2020 chronic anemia, hemoglobin at baseline DVT prophylaxis. Heparin subcu Full code Admission and Anticipated Discharge Date Admission Date: April 14, 2021 Subjective ff up for r foot osteomyelitis, etc Seen resting in bed, comfortable, not in distress In good spirits States she feels improved overall compared to yesterday and previous day No presyncope, syncope, dizziness, headache, palpitations, chest pain, shortness of breath, focal neurologic symptoms Minimal discomfort right foot No fevers or chills No other symptom Review of Systems Review of Systems: all noted and negative except for above Physical Exam Physical Exam: General- oriented x 3, not in distress, speaks in sentences with no effort or accessory muscle use Eyes- anicteric Neck- no JVD Lungs- clear breath sounds bilaterally, no rales/wheezes Heart- normal rate, regular rhythm; no murmurs Abdomen- normal bowel sounds, nondistended, soft, nontender Extremities- no pretibial edema, no calf tenderness Right foot-wound on the fifth metatarsal area and heel area open but seems to be healing well Less edema, erythema, no discharge or bleeding Neuro- alert, oriented x 3; no gross focal neurologic deficits Skin- warm & dry Results & Data Results & Data ([facility]) Vital Signs (Past 12 Hours) Vital Signs Temp Pulse Pulse Resp BP Pulse Ox 04/18/21 07:46 36.5 C 74 18 103/53 L 93 04/18/21 07:00 62 04/18/21 03:05 37.0 C 71 18 127/69 97 all noted and reviewed including below
--- NOTE | 2021-04-18 17:47 | Consultation Report ---
NEUROLOGY CONSULTATION DATE OF CONSULTATION: 04/18/2021. CHIEF COMPLAINT: Recurrent syncope during dialysis. HISTORY OF PRESENT ILLNESS: A 65-year-old woman with history of insulin-dependent diabetes as well a s end-stage renal disease on dialysis, admitted on 04/14/2021 for asymptomatic hypertensive urgency a nd osteomyelitis of the right foot. The patient had received dialysis and had a syncopal episode fol lowed by emesis. The patient is aware of the event and denies any preceding symptoms. She denies an y pain. She reports immediately recognizing where she is at afterwards with no postictal period. No incontinence or tongue biting. She has had several of these episodes as an outpatient also. All of these episodes seem to occur during dialysis. Had three to four other syncopal episodes in the past few months. Cardiology was consulted as well. She did undergo MRI of the brain as well as MRA imag ing. Transthoracic echocardiogram showed mild concentric left ventricular hypertrophy. EEG was order ed and is pending. Neurology was consulted for any further suggestions. ALLERGIES: DAPTOMYCIN. HOME MEDICATIONS: Vitamin D, Coenzyme Q10, Lasix, calcium acetate, vitamin B complex, vitamin C, Gabriel vix 75 mg, insulin, Norvasc, hydralazine, carvedilol. PAST MEDICAL HISTORY: Anemia, chronic diastolic heart failure, insulin-dependent diabetes, diabetic polyneuropathy, diabetic foot ulcer, dyslipidemia, end-stage renal disease on dialysis, osteomyelitis of the right foot, history of cerebrovascular accident, depression, hypertension, vitamin D deficien cy. PAST SURGICAL HISTORY: Appendectomy and right foot surgery. FAMILY HISTORY: Ovarian cancer and hypertension. SOCIAL HISTORY: She is a nonsmoker. She is handicapped and . REVIEW OF SYSTEMS: Negative except as noted above in the HPI. PHYSICAL EXAMINATION: VITAL SIGNS: Blood pressure 148/63, pulse of 75, respiratory rate 18, temperature 37 degrees Celsius , oxygen saturations 97% on room air. GENERAL: She appears stated age, appears in no distress, thin-appearing woman. HEENT: Normal eyelids. Normal conjunctivae. Head is normocephalic and atraumatic. NECK: Supple. LUNGS: Normal respiratory effort. CARDIAC: Normal cardiac pulses. ABDOMEN: Nondistended. SKIN: No skin rash. PSYCHIATRIC: Normal mood, normal affect. NEUROLOGIC: She is awake, alert, oriented to person, place, and time. Speech is clear. Comprehensi on is intact. Pupils are symmetric. Extraocular muscles intact. Facial sensation intact. No facia l asymmetry. Intact hearing. Palate is symmetric. Good shoulder shrug. Tongue is midline. Gait e valuation deferred. She has no ataxia with [id number]-je-[id number] testing. Sensation is reduced to light to uch in both lower extremities. Muscle tone is normal. DIAGNOSTIC TESTING AND LABORATORY VALUES: WBC 6.45, hemoglobin 10.4, platelet count 126. Sodium 137 , potassium 3.6, chloride 102, carbon dioxide 23, BUN 40, creatinine 5.05. MRA of the head and neck, normal MRA of the cerebral circulation for the patient's age, grossly limited examination of the nec k arteries due to lack of intravenous contrast. No gross evidence of stenosis. MRI of the brain, no acute intracranial abnormality. Bilateral mastoiditis. No evidence of acute hemorrhage or infarct. No acute diffusion abnormalities. Normal matthews-white differentiation. Transthoracic echocardiogram performed on 04/17/2021, ejection fraction of 55% to 60%, mild concentric left ventricular hypertrop hy. No significant aortic regurgitation, aortic stenosis is absent. ASSESSMENT AND PLAN: A 65-year-old woman with multiple medical comorbidities including insulin-depen dent diabetes with diabetic foot ulcer and right foot osteomyelitis as well as a known diabetic polyn europathy as well as end-stage renal disease on dialysis with situational syncope. I believe overall clinical history is devoid of any features to suggest that this is an epileptic event. I would not recommend starting antiepileptic medication. MRI and MRA imaging is reassuring. Agree with dann garcia a routine EEG for now. Otherwise, no additional neurological diagnostic testing necessary. Can di scuss with Nephrology if rate of dialysis may impact possible provoked syncopal episode. Otherwise, please contact me with any additional questions or concerns. We will follow up EEG when completed to marta. Job ID: [id number]
[2021-04-18] MEDS: GABAPENTIN 100 MG CAP PO SCH (21:01)
[2021-04-18] MEDS: amLODIPine BESYLATE 5 MG TAB PO SCH (21:01)
[2021-04-18] MEDS: CEFEPIME 1,000 MG in SYRINGE 0 ML IV SCH (21:01)
[2021-04-18] MEDS: INSULIN GLARGINE SOLOSTAR 100 UNITS/ML 3 ML PEN SQ SCH (21:02)
[2021-04-19] MEDS: DOXYCYCLINE HYCLATE 100 MG CAP PO SCH ×2 (06:03→17:36)
[2021-04-19] MEDS: HEPARIN SOD 5,000 UNIT/0.5 ML VIAL SQ SCH ×3 (06:03→21:17)
[2021-04-19 07:59] LABS: Basophils # (auto) 0.03 K/uL (0-0.2); Basophils % (auto) 0.5 %; Eosinophils # (auto) 0.35 K/uL (0-0.5); Eosinophils % (auto) 5.8 %; Hematocrit (blood only) 31.6 % (37-47); Hemoglobin 10.1 g/dL (12.0-16.0); Immature Granulocytes # (auto) 0.06 K/uL (0.00-0.02); Lymphocytes # (auto) 1.27 K/uL (1.2-3.4); Lymphocytes % (auto) 21.2 %; Mean Corpuscular Hemoglobin 31.8 pg (25-34); Mean Corpuscular Volume 99.4 fL (80-100); Mean Platelet Volume 10.1 fL (7.4-10.4); Monocytes # (auto) 1.08 K/uL (0.11-0.59); Neutrophils # (auto) 3.21 K/uL (1.4-6.5); Neutrophils % (auto) 53.5 %; Nucleated RBC # (auto) 0.04 K/uL (0-0); Nucleated RBC % (auto) 0.7 %; Platelet Count 135 K/uL (130-400); RDW Coefficient of Variation 15.1 % (11.5-14.5); RDW Standard Deviation 54.8 fL (36.4-46.3); Red Blood Count 3.18 M/uL (4.2-5.4)
[2021-04-19] MEDS: ATORVASTATIN 40 MG TAB PO SCH (08:04)
[2021-04-19] MEDS: CHOLECALCIFEROL 1,000 UNITS 25 MCG TAB PO SCH (08:04)
[2021-04-19] MEDS: MULTIVITAMIN TAB PO SCH (08:04)
[2021-04-19] MEDS: NEPHROCAPS PO SCH (08:04)
[2021-04-19] MEDS: CLOPIDOGREL BISULFATE 75 MG TAB PO SCH (08:04)
[2021-04-19] MEDS: CALCIUM ACETATE 667 MG CAP/TAB PO SCH ×3 (08:04→17:36)
[2021-04-19] MEDS: INSULIN ASPART 100 UNITS/ML 3 ML PEN SC SCH ×4 (08:07→21:18)
[2021-04-19 08:52] LABS: BUN Creatinine Ratio 9.2 (10-20); Calcium 9.1 mg/dl (8.5-10.1); Creatinine Clr Calc Pharmacy 7.8 ml/min; Est GFR (African American) 6.7 ml/min; Est GFR (Non-African American) 5.8 ml/min; Potassium 3.8 mmol/L (3.5-5.1)
--- NOTE | 2021-04-19 10:30 | Cardiology Consultation ---
Date of Consultation April 19, 2021 Assessment & Plan The patient has no cardiac symptoms including dizziness, lightheadedness presyncope or syncope when she is not receiving dialysis. The common denominator here is syncope during dialysis. Rhythm has been stable on telemetry. Her echocardiogram is unchanged. I do not believe any additional cardiac testing is indicated. History of Present Illness Attending Physician: Sheldon Hurst MD History of Present Illness This is a 65-year-old diabetic female with end-stage renal disease on hemodialysis who was admitted with a diabetic foot ulcer. The patient received dialysis 3 days ago and during that procedure she had a syncopal event and vomited. We are now consulted in regard to syncope. Apparently this is not the first episode during dialysis that this patient has undergone. She has had other episodes of dizziness and syncope while on dialysis. She had an echocardiogram completed this admission which is essentially unchanged from December. I reviewed the patient's telemetry since admission and she has no significant arrhythmias. She has no complaints today. Allergies Allergy/AdvReac Type Severity Reaction Status Date / Time daptomycin AdvReac sob Verified 04/13/21 21:45 Home Medications Medication Instructions Recorded Confirmed Type cholecalciferol (vitamin D3) 50 4,000 unit PO QAM 07/07/18 04/13/21 History mcg (2,000 unit) capsule (Vitamin D3) coenzyme Q10 100 mg capsule (Co 100 mg PO QAM 11/18/20 04/13/21 History Q-10) furosemide 40 mg tablet 40 mg PO BID 11/18/20 04/13/21 History calcium acetate(phosphat bind) 667 667 mg PO TIDM #90 cap 11/24/20 04/13/21 Rx mg capsule vitamin B complex and vitamin C 1 cap PO QAM #90 cap 11/24/20 04/13/21 Rx no.20-folic acid 1 mg capsule (Renal Caps) multivitamin 1 tab PO QAM 11/27/20 04/13/21 History clopidogrel 75 mg tablet 75 mg PO DAILY 01/18/21 04/13/21 History insulin glargine 100 unit/mL (3 30 unit SUBCUT HS 01/18/21 04/13/21 History mL) subcutaneous pen (Basaglar KwikPen U-100 Insulin) amlodipine 5 mg tablet (Norvasc) 10 mg PO HS #60 tab 01/23/21 04/13/21 Rx hydralazine 25 mg tablet 25 mg PO TID #90 tab 01/23/21 04/13/21 Rx carvedilol 12.5 mg tablet 12.5 mg PO BID #60 tab 01/24/21 04/13/21 Rx Patient History Medical History Anemia Callus Chronic diastolic CHF (congestive heart failure) Closed fracture of distal end of right fibula and tibia Diabetes mellitus with diabetic polyneuropathy Diabetic foot ulcer Diabetic neuropathy Dyslipidemia End stage renal failure on dialysis Foot osteomyelitis, right History of CVA (cerebrovascular accident) History of depression Hypertension Posterior capsular opacification Type 2 diabetes mellitus Ulcer of right midfoot Vitamin D deficiency Surgical History History of appendectomy Status post right foot surgery Family History Sister Ovarian cancer Brother Hypertension Social History Smoking Status: Never smoker Second Hand Exposure: No; Hx Alcohol Use: No Hx Substance Use: No Preferred Language: Khmer 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: Effective Mobile Application Development Lead Required: No Beliefs That Will Affect Care: None marital status: Current Living Situation: Alone Current Living Situation Comment: handicap accessible appartment per patient current occupational status: retired How many Children do You have: 1 Feels Safe at Home: Yes Diet Comment: stated low salt, low carb during the past year weight has: increased > 10 lbs Assistive Devices: Walker Review of Systems Review of Systems: Review of Systems: See HPI for pertinent positives. All other 10 point review of systems are negative. Physical Exam Physical Exam: General: no acute distress and stated age Head: normocephalic, no masses, lesions, tenderness or abnormalities Eyes: conjunctiva are pink and non-injected, sclera clear Neck: supple, no adenopathy, no bruits, normal jugular venous pulse, no hepatojugular reflux Chest: normal shape and normal respiratory effort Lungs: clear to auscultation and percussion Cardiac Exam: - regular rate & rhythm, no murmurs gallops or rubs - normal S1, normal S2 Pulses: 2(+) throughout Abdomen: abdomen soft, non-tender, no abnormal masses and no hepatosplenomegaly Musculoskeletal: no gait disturbance, no joint inflammation, no deforming arthritis Extremities: no edema and no cyanosis Neuro: grossly normal exam Results & Data ([facility]) Vital Signs (Past 12 Hours) Vital Signs Temp Pulse Pulse Pulse Resp BP Pulse Ox 04/19/21 08:10 36.7 C 65 18 138/71 96 04/19/21 06:17 62 04/19/21 02:44 36.8 C 65 18 109/64 96 04/18/21 23:37 69 04/18/21 22:49 36.9 C 75 18 118/62 96 Laboratory Results Laboratory Results - last 24 hr 04/18/21 04/18/21 04/18/21 11:53 16:31 20:14 WBC RBC Hgb Hct MCV MCH MCHC RDW Std Deviation RDW Coeff of Rico Plt Count MPV Immature Gran % (Auto) Neut % (Auto) Lymph % (Auto) Hardeman % (Auto) Eos % (Auto) Baso % (Auto) Neut # (Auto) Lymph # (Auto) Hardeman # (Auto) Eos # (Auto) Baso # (Auto) Immature Gran # (Auto) Absolute Nucleated RBC Nucleated RBC % (auto) Sodium Potassium Chloride Carbon Dioxide Anion Gap BUN Creatinine Est Cr Clr Drug Dosing Est GFR ( Amer) Est GFR (Non-Af Amer) BUN/Creatinine Ratio Glucose POC Glucose 118 H 119 H 190 H Calcium 04/19/21 04/19/21 04/19/21 06:55 06:55 07:29 WBC 6.00 RBC 3.18 L Hgb 10.1 L Hct 31.6 L MCV 99.4 MCH 31.8 MCHC 32.0 RDW Std Deviation 54.8 H RDW Coeff of Rico 15.1 H Plt Count 135 MPV 10.1 Immature Gran % (Auto) 1.0 Neut % (Auto) 53.5 Lymph % (Auto) 21.2 Hardeman % (Auto) 18.0 Eos % (Auto) 5.8 Baso % (Auto) 0.5 Neut # (Auto) 3.21 Lymph # (Auto) 1.27 Hardeman # (Auto) 1.08 H Eos # (Auto) 0.35 Baso # (Auto) 0.03 Immature Gran # (Auto) 0.06 H Absolute Nucleated RBC 0.04 H Nucleated RBC % (auto) 0.7 Sodium 138 Potassium 3.8 Chloride 104 Carbon Dioxide 21 Anion Gap 13.0 H BUN 63 H D Creatinine 6.86 H* D Est Cr Clr Drug Dosing 7.8 Est GFR ( Amer) 6.7 Est GFR (Non-Af Amer) 5.8 BUN/Creatinine Ratio 9.2 L Glucose 83 POC Glucose 85 Calcium 9.1 Medications Administered Current Inpatient Medications Acetaminophen (Acetaminophen 325 Mg Tab) 650 mg PO Q4H PRN PRN Reason: Pain or Fever Stop: 05/14/21 04:38 Amlodipine Besylate (Amlodipine Besylate 5 Mg Tab) 10 mg PO HS JOSE FRANCISCO Stop: 05/14/21 20:59 Last Admin: 04/18/21 21:01 Dose: 10 mg Documented by: Atorvastatin Calcium (Atorvastatin 40 Mg Tab) 40 mg PO QAM JOSE FRANCISCO Stop: 05/17/21 08:59 Last Admin: 04/19/21 08:04 Dose: 40 mg Documented by: Calcium Acetate (Calcium Acetate 667 Mg Cap/Tab) 667 mg PO TIDM JOSE FRANCISCO Stop: 05/14/21 07:59 Last Admin: 04/19/21 08:04 Dose: 667 mg Documented by: Carvedilol (Carvedilol 12.5 Mg Tab) 12.5 mg PO BID JOSE FRANCISCO Stop: 05/14/21 08:59 Last Admin: 04/18/21 21:01 Dose: 12.5 mg Documented by: Clopidogrel Bisulfate (Clopidogrel Bisulfate 75 Mg Tab) 75 mg PO DAILY JOSE FRANCISCO Stop: 05/14/21 08:59 Last Admin: 04/19/21 08:04 Dose: 75 mg Documented by: Dextrose (Dextrose 50% 50 Ml Syringe) 25 - 50 ml IV UD PRN; Protocol PRN Reason: Hypoglycemia Protocol Stop: 05/14/21 04:38 Doxycycline Hyclate (Doxycycline Hyclate 100 Mg Cap) 100 mg PO Q12H JOSE FRANCISCO Stop: 04/21/21 05:59 Last Admin: 04/19/21 06:03 Dose: 100 mg Documented by: Furosemide (Furosemide 40 Mg Tab) 40 mg PO BID17 JOSE FRANCISCO Stop: 05/14/21 08:59 Last Admin: 04/18/21 17:05 Dose: 40 mg Documented by: Gabapentin (Gabapentin 100 Mg Cap) 100 mg PO HS JOSE FRANCISCO Stop: 05/18/21 20:59 Last Admin: 04/18/21 21:01 Dose: 100 mg Documented by: Glucagon (Glucagon For Inj 1 Mg Vial) 1 mg SQ UD PRN; Protocol PRN Reason: Hypoglycemia Protocol Stop: 05/14/21 04:38 Glucose (Glucose 10 Tabs/Tube) 4 - 8 tabs PO UD PRN; Protocol PRN Reason: Hypoglycemia Protocol Stop: 05/14/21 04:38 Glucose (Glucose 40% Gel 15 Gm Tube) 15 - 30 gm PO UD PRN; Protocol PRN Reason: Hypoglycemia Protocol Stop: 05/14/21 04:38 Heparin Sodium (Porcine) (Heparin Sod 5,000 Unit/0.5 Ml Vial) 5,000 units SQ Q8 JOSE FRANCISCO Stop: 05/14/21 05:59 Last Admin: 04/19/21 06:03 Dose: 5,000 units Documented by: Hydralazine HCl (Hydralazine Hcl 25 Mg Tab) 25 mg PO TID [facility] Stop: 05/14/21 08:59 Last Admin: 04/18/21 21:02 Dose: 25 mg Documented by: Promethazine HCl 12.5 mg/ (Sodium Chloride) 50.5 mls @ 202 mls/hr IV Q6H PRN PRN Reason: Nausea And Vomiting Stop: 05/14/21 04:38 Cefepime HCl 1,000 mg/ Syringe 11.3 mls @ 5.5 mls/min IV Q24H [facility]; Protocol Stop: 04/21/21 19:59 Last Admin: 04/18/21 21:01 Dose: 5.5 mls/min Documented by: Insulin Aspart (Insulin Aspart 100 Units/Ml 3 Ml Pen) 0 units SC ACHS [facility] Stop: 05/14/21 04:38 Last Admin: 04/19/21 08:07 Dose: 2 units Documented by: Insulin Glargine (Insulin Glargine Solostar 100 Units/Ml 3 Ml Pen) 25 units SQ HS [facility] Stop: 05/18/21 20:59 Last Admin: 04/18/21 21:02 Dose: 25 units Documented by: Miscellaneous (Carbohydrates For Hypoglycemia ) 15 - 30 gm PO UD PRN PRN Reason: Hypoglycemia Protocol Stop: 05/14/21 04:38 Miscellaneous Information (Pharmacist Discharge Med Rec Consult) 1 ea N/A UD PRN PRN Reason: Consult Stop: 05/16/21 19:13 Multivitamins (Multivitamin Tab) 1 tab PO [facility] Stop: 05/14/21 08:59 Last Admin: 04/19/21 08:04 Dose: 1 tab Documented by: Tramadol HCl (Tramadol Hcl 50 Mg Tablet) 25 - 50 mg PO Q4H PRN PRN Reason: Pain Stop: 05/14/21 04:38 Vitamin B Complex/Folic Acid (Nephrocaps) 1 cap PO [facility] Stop: 05/14/21 08:59 Last Admin: 04/19/21 08:04 Dose: 1 cap Documented by: Vitamin D (Cholecalciferol 1,000 Units 25 Mcg Tab) 4,000 units PO [facility] Stop: 05/14/21 08:59 Last Admin: 04/19/21 08:04 Dose: 4,000 units Documented by:
--- NOTE | 2021-04-19 10:44 | Nephrology Progress Note ---
Date of Service April 19, 2021 Assessment & Plan (1) End stage renal failure on dialysis: (2) Diabetic infection of right foot: (3) Anemia due to chronic kidney disease: (4) Foot osteomyelitis, right: (5) Type 2 diabetes mellitus: Plan: End-stage renal disease secondary to diabetic nephropathy, on hemodialysis via right IJ tunneled dialysis catheter. Admitted with a right foot chronic diabetic nonhealing ulcer and osteomyelitis. H/O repeated episode of un responsiveness during HD , 3 times over last few month ( 11/27/20. 12/04/20, 01/18/21). Detail w/u was unremarkable. MRI and MRA of brain and neck was otherwise unremarkable. Had good neuro evaluation and there was no clear explanation of the episode of syncope, not suggestive of seizure, plan for routine EEG. Currently she is otherwise asymptomatic. -- plan for dialysis Monday. -- dose medications for GFR less than 10, -- left arm nephrology precaution for future vascular access. -- can be discharged once arrangement for antibiotic can be made Will follow. Admission and Anticipated Discharge Date Admission Date: April 14, 2021 Joan Gr was seen and examined in her room this morning. She is overall feeling well, otherwise asymptomatic. Blood pressure acceptable. Electrolyte and volume status acceptable. last HD was on Monday. Review of Systems Review of Systems: Detailed review of system was otherwise unremarkable. Physical Exam Constitutional: WD/WN, vitals as above no acute distress Neck: Rt IJ TDC Respiratory: normal respiratory effort; no respiratory distress Auscultation: lungs clear to auscultation bilaterally Cardiovascular: Rate/Rhythm: regular rate and regular rhythm Heart Sounds: normal S1 and normal S2 Extremities: no edema Neurologic: no focal motor deficits and not confused Psychiatric: Orientation: alert and oriented x 3 Results & Data ([facility]) Vital Signs (Past 12 Hours) Vital Signs Temp Pulse Pulse Pulse Resp BP Pulse Ox 04/19/21 08:10 36.7 C 65 18 138/71 96 04/19/21 06:17 62 04/19/21 02:44 36.8 C 65 18 109/64 96 04/18/21 23:37 69 04/18/21 22:49 36.9 C 75 18 118/62 96 PG Care Time/CCT Total # of Minutes Spent Total Time Spent with Patient: Total time spent is greater than 50% in coordination of care (as documented) at patient's floor/unit and/or counseling patient: Coding Level of Care Code 36701 Subseq Hosp Care Lvl 2 Diagnoses End stage renal failure on dialysis N18.6; Z99.2 Diabetic infection of right foot E11.628; L08.9 Anemia due to chronic kidney disease N18.9; D63.1 Foot osteomyelitis, right M86.9 Type 2 diabetes mellitus E11.22; N18.6; Z79.4; Z99.2 Chronic kidney disease stage: on chronic dialysis Diabetes mellitus complication detail: with chronic kidney disease Diabetes mellitus complication status: with kidney complications Diabetes mellitus prison insulin use: with 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
[2021-04-19] MEDS: carvediloL 12.5 MG TAB PO SCH ×2 (11:30→21:17)
[2021-04-19] MEDS: hydrALAZINE HCL 25 MG TAB PO SCH ×3 (11:31→21:15)
[2021-04-19] MEDS: FUROSEMIDE 40 MG TAB PO SCH ×2 (11:31→17:35)
--- NOTE | 2021-04-19 18:37 | Hospitalist Progress Note ---
Date of Service April 19, 2021 Assessment & Plan (1) Asymptomatic hypertensive urgency: Plan: Right foot osteomyelitis Diabetic foot infection hx history osteomyelitis as per records -- afebrile wound cx: skin carla blood cultures: negative -- evaluated by Ortho Dr. Acharya, recommendation: "Nonoperative management at this time. Daily dressing changes right lateral heel and base of fifth metatarsal ulcerations. Nonweightbearing right lower extremity. Continue IV antibiotic therapy for period of 6 weeks." -- Foot MRI: possible osteomyelitis -- continue IV Cefepime + Doxycycline Infectious disease -consulted- awaiting recommendations Syncopal episode -- happened 15 mins into her HD session 04/16/21, followed by emesis while unconscious -- Stroke Telemedicine consult performed -- TPA not recommended -- Brain MRI: negative MRA head and neck: no abnormalities noted EEG: pending Echo: mild concentric LVH -- add Lipitor continue Plavix -- per Drill Operator Automatic, patient has had syncopal episodes during HD 3-4 x in the past few months VS stable during occurrences no clear etiology established so far -- will have Nuclear Medicine Technologist and Neurologist evaluate the patient EEG pending apppreciate the recommendations --No recurrence during hemodialysis 04/18 chronic diastolic heart failure (EF 55 to 60%, TTE 2020), euvolemic ESRD on HD DM 2 insulin requiring, reasonable control as of recent hemoglobin A1c of 7.20 October 2020 chronic anemia, hemoglobin at baseline DVT prophylaxis. Heparin subcu Full code Disposition PT/OT recommending Rehab/SNF Admission and Anticipated Discharge Date Admission Date: April 14, 2021 Subjective ff up for r foot OM, syncope, etc seen resting in bed, sitting up states she feels fine overall no recurrence of syncope no chest pain, dyspnea, palpitations, dizziness no foot pain, fever/chills no other symptoms Review of Systems Review of Systems: all noted and negative except for above Physical Exam Physical Exam: General- oriented x 3, not in distress, speaks in sentences with no effort or accessory muscle use Eyes- anicteric Neck- no JVD Lungs- clear breath sounds bilaterally, no rales/wheezes Heart- normal rate, regular rhythm; no murmurs Abdomen- normal bowel sounds, nondistended, soft, nontender Extremities- no pretibial edema, no calf tenderness Neuro- alert, oriented x 3; no gross focal neurologic deficits Skin- warm & dry Results & Data Results & Data ([facility]) Vital Signs (Past 12 Hours) Vital Signs Temp Pulse Pulse Pulse Resp BP Pulse Ox 04/19/21 15:07 36.6 C 65 20 115/70 95 04/19/21 14:17 65 04/19/21 11:00 36.5 C 65 18 119/61 97 04/19/21 08:10 36.7 C 65 18 138/71 96 all noted and reviewed including below
[2021-04-19] MEDS: CEFEPIME 1,000 MG in SYRINGE 0 ML IV SCH (21:15)
[2021-04-19] MEDS: GABAPENTIN 100 MG CAP PO SCH (21:15)
[2021-04-19] MEDS: amLODIPine BESYLATE 5 MG TAB PO SCH (21:16)
[2021-04-19] MEDS: INSULIN GLARGINE SOLOSTAR 100 UNITS/ML 3 ML PEN SQ SCH (21:20)
[2021-04-20] MEDS: DOXYCYCLINE HYCLATE 100 MG CAP PO SCH ×2 (06:05→21:02)
[2021-04-20] MEDS: HEPARIN SOD 5,000 UNIT/0.5 ML VIAL SQ SCH ×3 (07:19→21:18)
[2021-04-20] MEDS ORDERED: EPOETIN ALFA 10,000 UNITS/ML VIAL IV SCH (08:30)
[2021-04-20] MEDS: CALCIUM ACETATE 667 MG CAP/TAB PO SCH ×3 (08:33→21:01)
[2021-04-20] MEDS: ATORVASTATIN 40 MG TAB PO SCH (08:33)
[2021-04-20] MEDS: CHOLECALCIFEROL 1,000 UNITS 25 MCG TAB PO SCH (08:33)
[2021-04-20] MEDS: CLOPIDOGREL BISULFATE 75 MG TAB PO SCH (08:34)
[2021-04-20] MEDS: FUROSEMIDE 40 MG TAB PO SCH ×2 (08:34→21:01)
[2021-04-20] MEDS: NEPHROCAPS PO SCH (08:34)
[2021-04-20] MEDS: MULTIVITAMIN TAB PO SCH (08:34)
[2021-04-20] MEDS: INSULIN ASPART 100 UNITS/ML 3 ML PEN SC SCH ×4 (08:37→21:17)
--- NOTE | 2021-04-20 10:19 | Nephrology Progress Note ---
Date of Service April 20, 2021 Assessment & Plan (1) End stage renal failure on dialysis: (2) Diabetic infection of right foot: (3) Anemia due to chronic kidney disease: (4) Foot osteomyelitis, right: (5) Type 2 diabetes mellitus: Plan: End-stage renal disease secondary to diabetic nephropathy, on hemodialysis via right IJ tunneled dialysis catheter. Admitted with a right foot chronic diabetic nonhealing ulcer and osteomyelitis. H/O repeated episode of un responsiveness during HD , 3 times over last few month ( 11/27/20. 12/04/20, 01/18/21). Detail w/u was unremarkable. MRI and MRA of brain and neck was otherwise unremarkable. Had good neuro evaluation and there was no clear explanation of the episode of syncope, not suggestive of seizure, plan for routine EEG. Currently she is otherwise asymptomatic. -- plan for dialysis Today, aim for 2 L UF -- dose medications for GFR less than 10, -- left arm nephrology precaution for future vascular access. -- can be discharged once arrangement for antibiotic can be made Will follow. Admission and Anticipated Discharge Date Admission Date: April 14, 2021 Joan Gr was seen and examined in her room this morning. She is overall feeling well, otherwise asymptomatic. Blood pressure acceptable. Electrolyte and volume status acceptable. last HD was on Monday. on Doxy and cefepime. Review of Systems Review of Systems: Detailed review of system was otherwise unremarkable. Physical Exam Constitutional: WD/WN, vitals as above no acute distress Neck: Rt IJ TDC Respiratory: normal respiratory effort; no respiratory distress Auscultation: lungs clear to auscultation bilaterally Cardiovascular: Rate/Rhythm: regular rate and regular rhythm Heart Sounds: normal S1 and normal S2 Extremities: no edema Neurologic: no focal motor deficits and not confused Psychiatric: Orientation: alert and oriented x 3 Results & Data ([facility]) Vital Signs (Past 12 Hours) Vital Signs Temp Pulse Pulse Resp BP Pulse Ox 04/20/21 08:00 36.4 C L 66 18 128/68 97 04/20/21 06:20 61 04/20/21 04:30 36.7 C 59 L 20 105/60 98 04/20/21 01:10 70 04/19/21 23:31 36.7 C 74 18 132/67 94 PG Care Time/CCT Total # of Minutes Spent Total Time Spent with Patient: Total time spent is greater than 50% in coordination of care (as documented) at patient's floor/unit and/or counseling patient: Coding Level of Care Code 42303 Subseq Hosp Care Lvl 2 Diagnoses End stage renal failure on dialysis N18.6; Z99.2 Diabetic infection of right foot E11.628; L08.9 Anemia due to chronic kidney disease N18.9; D63.1 Foot osteomyelitis, right M86.9 Type 2 diabetes mellitus E11.22; N18.6; Z79.4; Z99.2 Chronic kidney disease stage: on chronic dialysis Diabetes mellitus complication detail: with chronic kidney disease Diabetes mellitus complication status: with kidney complications Diabetes mellitus skilled nursing insulin use: with terminal computer operator use (1) Type 2 diabetes mellitus Chronic kidney disease stage: on chronic dialysis Diabetes mellitus compli cation detail: with chronic kidney disease Diabetes mellitus complication status: with kidney complications Diabetes mellitus terminal computer operator insulin use: with terminal computer operator use Qualified Code(s): E11.22 - Type 2 diabetes mellitus with diabetic chronic kidney disease; N18.6 - End stage renal disease; Z79.4 - detention (current) use of insulin; Z99.2 - Dependence on renal dialysis
[2021-04-20] MEDS: hydrALAZINE HCL 25 MG TAB PO SCH ×3 (11:42→21:03)
--- NOTE | 2021-04-20 14:33 | Hospitalist Progress Note ---
Date of Service April 20, 2021 delayed entry date of service noted above Assessment & Plan (1) Asymptomatic hypertensive urgency: Plan: Right foot osteomyelitis Diabetic foot infection hx history osteomyelitis as per records -- afebrile wound cx: skin carla blood cultures: negative -- evaluated by Ortho Dr. Acharya, recommendation: "Nonoperative management at this time. Daily dressing changes right lateral heel and base of fifth metatarsal ulcerations. Nonweightbearing right lower extremity. Continue IV antibiotic therapy for period of 6 weeks." -- Foot MRI: possible osteomyelitis -- continue IV Cefepime + Doxycycline Infectious disease -consulted- awaiting recommendations -- PT/OT evaluation recommending Rehab/SNF Syncopal episode -- happened 15 mins into her HD session 04/16/21, followed by emesis while unconscious -- Stroke Telemedicine consult performed -- TPA not recommended -- Brain MRI: negative MRA head and neck: no abnormalities noted EEG: pending Echo: mild concentric LVH -- added Lipitor continue Plavix -- per Towboat Captain, patient has had syncopal episodes during HD 3-4 x in the past few months VS stable during occurrences no clear etiology established so far -- will have Dna Sequencing Associate and Neurologist evaluate the patient EEG pending no further intervention per Cardio and Neuro --No recurrence during hemodialysis 04/18 chronic diastolic heart failure (EF 55 to 60%, TTE 2020), euvolemic ESRD on HD DM 2 insulin requiring, reasonable control as of recent hemoglobin A1c of 7.20 October 2020 chronic anemia, hemoglobin at baseline DVT prophylaxis. Heparin subcu Full code Disposition PT/OT recommending Rehab/SNF Admission and Anticipated Discharge Date Admission Date: April 14, 2021 Subjective ff up for R foot OM, etc seen resting in bed, sitting up comfortable states she feels fine overall minimal R foot discomfort no chest pain, dyspnea, palpitations, dizziness no other new symptoms Review of Systems Review of Systems: all noted and negative except for above Physical Exam Physical Exam: General- oriented x 3, not in distress, speaks in sentences with no effort or accessory muscle use Eyes- anicteric Neck- no JVD Lungs- clear BS BL Heart- normal rate, regular rhythm; no murmurs Abdomen- normal bowel sounds, nondistended, soft, nontender Extremities- no pretibial edema, no calf tenderness R foot wounds- open but healing well, no bleeding/discharge Neuro- alert, oriented x 3; no gross focal neurologic deficits Skin- warm & dry Results & Data Results & Data ([facility]) Vital Signs (Past 12 Hours) Vital Signs Temp Pulse Pulse Resp BP Pulse Ox 04/20/21 11:40 36.4 C L 64 18 123/66 97 04/20/21 08:00 36.4 C L 66 18 128/68 97 04/20/21 06:20 61 04/20/21 04:30 36.7 C 59 L 20 105/60 98 all noted and reviewed including below
[2021-04-20] MEDS: carvediloL 12.5 MG TAB PO SCH ×2 (14:49→21:04)
[2021-04-20] MEDS: CEFEPIME 1,000 MG in SYRINGE 0 ML IV SCH (21:02)
[2021-04-20] MEDS: amLODIPine BESYLATE 5 MG TAB PO SCH (21:03)
[2021-04-20] MEDS: GABAPENTIN 100 MG CAP PO SCH (21:03)
[2021-04-20] MEDS: INSULIN GLARGINE SOLOSTAR 100 UNITS/ML 3 ML PEN SQ SCH (21:05)
[2021-04-21] MEDS: HEPARIN SOD 5,000 UNIT/0.5 ML VIAL SQ SCH ×3 (05:41→20:37)
[2021-04-21] MEDS: ATORVASTATIN 40 MG TAB PO SCH (08:10)
[2021-04-21] MEDS: MULTIVITAMIN TAB PO SCH (08:10)
[2021-04-21] MEDS: NEPHROCAPS PO SCH (08:10)
[2021-04-21] MEDS: CALCIUM ACETATE 667 MG CAP/TAB PO SCH ×3 (08:11→17:16)
[2021-04-21] MEDS: CLOPIDOGREL BISULFATE 75 MG TAB PO SCH (08:11)
[2021-04-21] MEDS: CHOLECALCIFEROL 1,000 UNITS 25 MCG TAB PO SCH (08:11)
[2021-04-21] MEDS: INSULIN ASPART 100 UNITS/ML 3 ML PEN SC SCH ×4 (08:36→20:38)
--- NOTE | 2021-04-21 10:21 | Nephrology Progress Note ---
Date of Service April 21, 2021 Assessment & Plan (1) End stage renal failure on dialysis: (2) Diabetic infection of right foot: (3) Anemia due to chronic kidney disease: (4) Foot osteomyelitis, right: (5) Type 2 diabetes mellitus: Plan: End-stage renal disease secondary to diabetic nephropathy, on hemodialysis via right IJ tunneled dialysis catheter. Admitted with a right foot chronic diabetic nonhealing ulcer and osteomyelitis. H/O repeated episode of unr esponsiveness during HD , 3 times over last few month ( 11/27/20. 12/04/20, 01/18/21). Detail w/u was unremarkable. MRI and MRA of brain and neck was otherwise unremarkable. Had good neuro evaluation and there was no clear explanation of the episode of syncope, not suggestive of seizure, plan for routine EEG. Currently she is otherwise asymptomatic. -- id recommended vancomycin once a week after hemodialysis. recommend consultation with social Service to arrange for antibiotics so that she can be discharged. If discharged can be arranged for this afternoon she can have next dialysis at outpatient dialysis unit on Monday. -- dose medications for GFR less than 10, -- left arm nephrology precaution for future vascular access. Will follow. Admission and Anticipated Discharge Date Admission Date: April 14, 2021 Joan Gr was seen and examined in her room this morning. She is overall feeling well, otherwise asymptomatic. Blood pressure acceptable. Electrolyte and volume status acceptable. had hemodialysis yesterday uneventful. Review of Systems Review of Systems: Detailed review of system was otherwise unremarkable. Physical Exam Constitutional: WD/WN, vitals as above no acute distress Neck: Rt IJ TDC Respiratory: normal respiratory effort; no respiratory distress Auscultation: lungs clear to auscultation bilaterally Cardiovascular: Rate/Rhythm: regular rate and regular rhythm Heart Sounds: normal S1 and normal S2 Extremities: no edema Neurologic: no focal motor deficits and not confused Psychiatric: Orientation: alert and oriented x 3 Results & Data ([facility]) Vital Signs (Past 12 Hours) Vital Signs Temp Pulse Pulse Pulse Resp BP Pulse Ox 04/21/21 09:11 63 04/21/21 07:08 36.6 C 63 18 109/73 95 04/21/21 03:38 36.8 C 68 18 113/58 L 95 04/20/21 22:39 36.8 C 75 20 137/66 96 04/20/21 22:30 73 PG Care Time/CCT Total # of Minutes Spent Total Time Spent with Patient: Total time spent is greater than 50% in coordination of care (as documented) at patient's floor/unit and/or counseling patient: Coding Level of Care Code 55322 Subseq Hosp Care Lvl 3 Diagnoses End stage renal failure on dialysis N18.6; Z99.2 Diabetic infection of right foot E11.628; L08.9 Anemia due to chronic kidney disease N18.9; D63.1 Foot osteomyelitis, right M86.9 Type 2 diabetes mellitus E11.22; N18.6; Z79.4; Z99.2 Chronic kidney disease stage: on chronic dialysis Diabetes mellitus complication detail: with chronic kidney disease Diabetes mellitus complication status: with kidney complications Diabetes mellitus joint terminal attack controller insulin use: with half-way use (1) Type 2 diabetes mellitus Chronic kidney disease stage: on chronic dialysis Diabetes mellitus complication detail: with chronic kidney disease Diabetes mellitus complication status: with kidney complications Diabetes mellitus joint terminal attack controller insulin use: with half-way use Qualified Code(s): E11.22 - Type 2 diabetes mellitus with diabetic chronic kidney disease; N18.6 - End stage renal disease; Z79.4 - USP (current) use of insulin; Z99.2 - Dependence on renal dialysis
[2021-04-21] MEDS: FUROSEMIDE 40 MG TAB PO SCH ×2 (10:34→17:16)
[2021-04-21] MEDS: carvediloL 12.5 MG TAB PO SCH ×2 (10:34→20:36)
[2021-04-21] MEDS: hydrALAZINE HCL 25 MG TAB PO SCH ×3 (10:34→20:36)
[2021-04-21] MEDS ORDERED: VANCOMYCIN CONSULT ACTIVE PRN (14:54)
[2021-04-21] MEDS ORDERED: VANCOMYCIN HCL 1,500 MG in SODIUM CHLORIDE 0.9% 500 ML IV ONE (15:30)
--- NOTE | 2021-04-21 15:48 | Pharmacy Report ---
Pharmacy Abx Dose Short Note - Date of Service April 21, 2021 - Assessment & Plan Assessment 65 year old F receiving vancomycin for treatment of osteomyelitis Day # 1 of antimicrobial therapy. Plan Vancomycin * vancomycin 1500 mg IV (20 mg/kg) x 1 * vancomycin random tomorrow morning as patient hemodialysis patient. * goal random level is >15 mcg/mL for osteomyelitis Pharmacy will continue to follow and will adjust dose/frequency as necessary. Thank you.
[2021-04-21] MEDS: GABAPENTIN 100 MG CAP PO SCH (20:35)
[2021-04-21] MEDS: amLODIPine BESYLATE 5 MG TAB PO SCH (20:35)
[2021-04-21] MEDS: INSULIN GLARGINE SOLOSTAR 100 UNITS/ML 3 ML PEN SQ SCH (20:38)
--- NOTE | 2021-04-21 23:54 | Hospitalist Progress Note ---
Date of Service April 21, 2021 Assessment & Plan (1) Foot osteomyelitis, right: Plan: Present on admission with worsening right foot wound diabetic foot infection Hx history osteomyelitis MRI of right foot showed deep to the skin ulceration within the lateral midfoot there is abnormal marrow signal within the base of the fifth metatarsal which is concerning for an osteomyelitis. Wound cx grew skin carla Blood cultures negative Was started on IV cefepime extended for 2 months once completed antibiotic doxycycline Ortho was consulted recommend nonoperative management-conservative management with IV antibiotic ID was consulted recommended IV Vanco after dialysis for 6 weeks If infection return, will need bone biopsy before starting antibiotic as per ID We will monitor CRP weekly and extending for 2 months after completes IV Vanco Vanco trough level for Osteomyelitis: 15 to 20 mcg/mL Will check random Vanco level Tomorrow AM Pharmacy on board for antibiotic management with vancomycin Continue Daily dressing changes right lateral heel and base of fifth metatarsal ulcerations. Will need outpatient follow-up with wound care clinic Patient would like to go home, not interested in rehab Syncopal episode Happened 15 mins into her HD session 04/16/21, followed by emesis while unconscious Stroke Telemedicine consult performed No TPA given since patient, did not meet the criteria Brain MRI: negative MRA head and neck: no abnormalities noted Neuro on board-no clinical evidence of seizure Echo: mild concentric LVH Cardiology on board-no further cardiac testing needed No focal neuro deficit Continue Lipitor and Plavix End-stage renal disease HD on Monday and Monday Last hemodialysis was on Monday Nephrology on board-Case discussed with nephrology Will need IV Vanco possible after it HD Chronic diastolic heart failure No evidence of volume overload Echo showed ejection fraction 55 to 60% Continue Lasix 40 mg twice daily and carvedilol 12.5 mg twice daily Interval Diabetes type 2 Most recent hemoglobin A1c 6.2 on 04/17 Continue Lantus and insulin sliding scale Continue monitor blood sugar Chronic Anemia Hemoglobin at baseline DVT prophylaxis. Heparin subcu Full code Disposition Patient would like to go home Possible discharge tomorrow (2) Asymptomatic hypertensive urgency: Plan: [facility], [id number] Hospitalist Progress Note Signed Patient:ZAK MORLEY Admit Date:04/14/21 MR#:[id number] Att Phy:Sheldon Hurst MD Acct ID:[id number] Tegan Phy:Melissa Bronson DO Date:1955 [facility] Phy: Age:65 Location:2N Sex:F Room/Bed:N283-2 cc: ~ *NOTICE TO RECEIVING DEMOCRAT/AGENCY This information is strictly Confidential and protected under [place] law. [place] law prohibits you from making any further disclosure of this information unless further disclosure is expressly permitted by the written consent of the person to whom it pertains or is authorized by law. A general authorization for the release of medical or other information is not sufficient for this purpose. Hospital accepts no responsibility if the information is made available to any other person, INCLUDING THE PATIENT. Date of Service April 16, 2021 Assessment & Plan (1) Asymptomatic hypertensive urgency: Plan: Diabetic foot infection, right hx history osteomyelitis as per records -- evaluated by Ortho -- Foot MRI: possible osteomyelitis -- continue IV Abx non surgical per Ortho chronic diastolic heart failure (EF 55 to 60%, TTE 2020), euvolemic ESRD on HD DM 2 insulin requiring, reasonable control as of recent hemoglobin A1c of 7.20 October 2020 chronic anemia, hemoglobin at baseline DVT prophylaxis. Heparin subcu Full code Admission and Anticipated Discharge Date Admission Date: April 14, 2021 Subjective Patient was seen and examined for follow-up of diabetic foot ulcer sitting in bed with no acute distress Patient said that she feels fine She is very anxious to go home tomorrow Denies any chest pain, palpitation, dizziness, shortness of breath. Review of Systems Review of Systems: All systems reviewed & are unremarkable except as noted in Subjective Physical Exam Physical Exam: General- No acute distress Head- atraumatic Eyes- PERRL, EOMI, ENT- oropharynx clear Neck- supple, no JVD Lungs- clear to auscultation Heart- regular rhythm; no murmur Abdomen- normal bowel sounds, soft, nontender Extremities- no calf tenderness, +wound in right foot cover with dressing, dressing removed to check the wound no pus, dressing mildly wet, healing well Neuro- alert, oriented x 3; PERRL, EOMI; no facial palsy; no dysarthria Skin- warm & dry Results & Data Results & Data ([facility]) Vital Signs (Past 12 Hours) Vital Signs Temp Pulse Pulse Pulse Resp BP Pulse Ox 04/21/21 22:59 36.6 C 67 18 117/71 93 04/21/21 20:43 36.8 C 75 18 128/61 94 04/21/21 15:25 36.7 C 70 18 125/63 90 04/21/21 14:59 72
[2021-04-22] MEDS: HEPARIN SOD 5,000 UNIT/0.5 ML VIAL SQ SCH ×3 (06:05→22:47)
[2021-04-22] MEDS: MULTIVITAMIN TAB PO SCH (07:43)
[2021-04-22] MEDS: CHOLECALCIFEROL 1,000 UNITS 25 MCG TAB PO SCH (07:43)
[2021-04-22] MEDS: NEPHROCAPS PO SCH (07:43)
[2021-04-22] MEDS: CLOPIDOGREL BISULFATE 75 MG TAB PO SCH (07:43)
[2021-04-22] MEDS: CALCIUM ACETATE 667 MG CAP/TAB PO SCH ×3 (07:43→16:30)
[2021-04-22] MEDS: ATORVASTATIN 40 MG TAB PO SCH (07:44)
[2021-04-22] MEDS: INSULIN ASPART 100 UNITS/ML 3 ML PEN SC SCH ×4 (08:14→22:52)
[2021-04-22] MEDS: hydrALAZINE HCL 25 MG TAB PO SCH ×3 (08:30→22:50)
[2021-04-22] MEDS: FUROSEMIDE 40 MG TAB PO SCH ×2 (08:30→16:29)
[2021-04-22] MEDS: carvediloL 12.5 MG TAB PO SCH ×2 (08:30→22:49)
--- NOTE | 2021-04-22 10:48 | Nephrology Progress Note ---
Date of Service April 22, 2021 Assessment & Plan (1) End stage renal failure on dialysis: (2) Diabetic infection of right foot: (3) Anemia due to chronic kidney disease: (4) Foot osteomyelitis, right: (5) Type 2 diabetes mellitus: Plan: End-stage renal disease secondary to diabetic nephropathy, on hemodialysis via right IJ tunneled dialysis catheter. Admitted with a right foot chronic diabetic nonhealing ulcer and osteomyelitis. H/O repeated episode of unr esponsiveness during HD , 3 times over last few month ( 11/27/20. 12/04/20, 01/18/21). Detail w/u was unremarkable. MRI and MRA of brain and neck was otherwise unremarkable. Had good neuro evaluation and there was no clear explanation of the episode of syncope, not suggestive of seizure, plan for routine EEG. On Vancomycin, will need for total 6 weeks after HD. Currently she is otherwise asymptomatic. -- waiting on arrangement for vancomycin as an outpt after HD. If she can be discharged this afternoon, will hold HD today and plan for HD tomorrow at out pt unit.Otherwise plan for HD this afternoon. -- dose medications for GFR less than 10, -- left arm nephrology precaution for future vascular access. Will follow. Admission and Anticipated Discharge Date Admission Date: April 14, 2021 Joan Gr was seen and examined in her room this morning. She is overall feeling well, otherwise asymptomatic. Blood pressure acceptable. Electrolyte and volume status acceptable. Antibiotic switched to Vancomycin. Review of Systems Review of Systems: Detailed review of system was otherwise unremarkable. Physical Exam Constitutional: WD/WN, vitals as above no acute distress Neck: Rt IJ TDC Respiratory: normal respiratory effort; no respiratory distress Auscultation: lungs clear to auscultation bilaterally Cardiovascular: Rate/Rhythm: regular rate and regular rhythm Heart Sounds: normal S1 and normal S2 Extremities: no edema Neurologic: no focal motor deficits and not confused Psychiatric: Orientation: alert and oriented x 3 Results & Data ([facility]) Vital Signs (Past 12 Hours) Vital Signs Temp Pulse Pulse Resp BP Pulse Ox 04/22/21 10:07 56 L 04/22/21 07:11 36.5 C 58 L 18 122/66 98 04/22/21 03:15 36.6 C 64 18 96/61 L 97 04/22/21 01:54 76 04/21/21 22:59 36.6 C 67 18 117/71 93 PG Care Time/CCT Total # of Minutes Spent Total Time Spent with Patient: Total time spent is greater than 50% in coordination of care (as documented) at patient's floor/unit and/or counseling patient: Coding Level of Care Code 55847 Subseq Hosp Care Lvl 2 Diagnoses End stage renal failure on dialysis N18.6; Z99.2 Diabetic infection of right foot E11.628; L08.9 Anemia due to chronic kidney disease N18.9; D63.1 Foot osteomyelitis, right M86.9 Type 2 diabetes mellitus E11.22; N18.6; Z79.4; Z99.2 Chronic kidney disease stage: on chronic dialysis Diabetes mellitus complication detail: with chronic kidney disease Diabetes mellitus complication status: with kidney complications Diabetes mellitus nursing home insulin use: with rodent exterminator use (1) Type 2 diabetes mellitus Chronic kidney disease stage: on chronic dialysis Diabetes mellitus complication detail: with chronic kidney disease Diabetes mellitus complication status: with kidney complications Diabetes mellitus rodent exterminator insulin use: with rodent exterminator use Qualified Code(s): E11.22 - Type 2 diabetes mellitus with diabetic chronic kidney disease; N18.6 - End stage renal disease; Z79.4 - USP (current) use of insulin; Z99.2 - Dependence on renal dialysis
--- NOTE | 2021-04-22 14:54 | Pharmacy Report ---
Pharmacy Abx Dose Short Note - Date of Service April 22, 2021 - Assessment & Plan Assessment 65 year old F receiving Vancomycin for treatment of Osteomyelitis. Day #2 of antimicrobial therapy. Patient received Vancomycin loading dose of 1500 mg (20 mg/kg) IV x1 yesterday at 17:15. Patient with renal failure and chronic hemodialysis. Vanco dosing will be based on levels post-hemodialysis. A random Vanc level was obtained this AM after dose yesterday. Plan Laboratory Tests 04/22/21 06:48 Random Vancomycin 28.4 Vancomycin * Random level of 28.4 mcg/ml indicates that patient is not ready to be re-dosed with Vanco yet. * Goal trough level for Osteomyelitis: 15 to 20 mcg/mL, ideally closer to 20 mcg/ml. * Plan for patient to get dialysis today if not discharged. * A random Vanco level ordered for tomorrow AM with AM labs Pharmacy will continue to follow and will adjust dose/frequency as necessary. Thank you.
[2021-04-22 21:27] LABS: iSTAT Arterial Blood Gas HCO3 25 meg/L (19-24); iSTAT Arterial Blood Gas pCO2 47 mmHg (35-46); iSTAT Arterial Blood Gas pH 7.34 (7.35-7.45); iSTAT Arterial Blood Gas pO2 187 mmHg (80-95); iSTAT Carbon Dioxide 26 mmol/L (24-31); iSTAT Hematocrit 34 % (37-47); iSTAT Hemoglobin 11.6 g/dl (12.0-16.0); iSTAT Potassium 3.7 mmol/L (3.3-5.0); iSTAT Sodium 138 mmol/L (135-144)
[2021-04-22 21:36] LABS: Hematocrit (blood only) 37.1 % (37-47); Hemoglobin 11.9 g/dL (12.0-16.0); Mean Corpuscular Hemoglobin 32.1 pg (25-34); Mean Corpuscular Hgb Conc 32.1 g/dL (32-36); Nucleated RBC # (auto) 0.03 K/uL (0-0); Nucleated RBC % (auto) 0.3 %; RDW Coefficient of Variation 15.9 % (11.5-14.5); RDW Standard Deviation 57.2 fL (36.4-46.3); Red Blood Count 3.71 M/uL (4.2-5.4); White Blood Count 10.41 K/uL (4.8-10.8)
[2021-04-22 21:52] LABS: Partial Thromboplastin Ratio 2.6
[2021-04-22 21:56] LABS: Albumin Globulin Ratio 0.8 (0.9-2); Albumin Level 3.7 gm/dl (3.4-5.0); BUN Creatinine Ratio 11.3 (10-20); Bilirubin,Total 0.4 mg/dl (0.2-1); Creatinine Clr Calc Pharmacy 7.3 ml/min; Est GFR (African American) 6.2 ml/min; Est GFR (Non-African American) 5.3 ml/min; Globulin 4.8 gm/dl (2.5-4.0); Magnesium 2.7 mg/dl (1.8-2.4); Potassium 4.2 mmol/L (3.5-5.1); Total Protein 8.5 gm/dl (6.4-8.2); Troponin I 0.061 ng/ml (0-0.045)
[2021-04-22 22:05] LABS: Partial Thromboplastin Time 68.9 Seconds (21.0-31.0)
--- NOTE | 2021-04-22 22:17 | Hospitalist Progress Note ---
Date of Service April 22, 2021 Assessment & Plan (1) Foot osteomyelitis, right: Plan: Present on admission with worsening right foot wound diabetic foot infection Hx history osteomyelitis MRI of right foot showed deep to the skin ulceration within the lateral midfoot there is abnormal marrow signal within the base of the fifth metatarsal which is concerning for an osteomyelitis. Wound cx grew skin carla Blood cultures negative Was started on IV cefepime extended for 2 months once completed antibiotic doxycycline Ortho was consulted recommend nonoperative management-conservative management with IV antibiotic ID was consulted recommended IV Vanco after dialysis for 6 weeks If infection return, will need bone biopsy before starting antibiotic as per ID We will monitor CRP weekly and extending for 2 months after completes IV Vanco Vanco trough level for Osteomyelitis: 15 to 20 mcg/mL Will check random Vanco level Tomorrow AM Pharmacy on board for antibiotic management with vancomycin Continue Daily dressing changes right lateral heel and base of fifth metatarsal ulcerations. Will need outpatient follow-up with wound care clinic Patient would like to go home, not interested in rehab 04/22/21 IV Vanco was given yesterday Elevated Vanco random Case discussed with pharmacy that recommend to check Vanco trough tomorrow We will consider IV Vanco 1 g after dialysis Continue monitor Syncopal episode Happened 15 mins into her HD session 04/16/21, followed by emesis while unconscious Stroke Telemedicine consult performed No TPA given since patient, did not meet the criteria Brain MRI: negative MRA head and neck: no abnormalities noted Neuro on board-no clinical evidence of seizure Echo: mild concentric LVH Cardiology on board-no further cardiac testing needed No focal neuro deficit Continue Lipitor and Plavix End-stage renal disease HD on Monday and Monday Last hemodialysis was on Monday Nephrology on board-Case discussed with nephrology Will need IV Vanco to be given possible after HD Hypertension BP has been fluctuated Continue amlodipine carvedilol and lisinopril continue monitor BP Chronic diastolic heart failure No evidence of volume overload Echo showed ejection fraction 55 to 60% Continue Lasix 40 mg twice daily and carvedilol 12.5 mg twice daily Interval Diabetes type 2 Most recent hemoglobin A1c 6.2 on 04/17 Continue Lantus and insulin sliding scale Continue monitor blood sugar Chronic Anemia Hemoglobin at baseline DVT prophylaxis. Heparin subcu Full code Disposition Patient would like to go home Possible discharge tomorrow Admission and Anticipated Discharge Date Admission Date: April 14, 2021 Subjective Patient was seen and examined for follow-up of diabetic foot ulcer sitting in bed with no acute distress talking to her roommate Patient said that she feels fine She is very anxious to go home today go home Case management said if home health draw the [facility] tomorrow, the result will not come back until Monday Nephrology wanted to dialyze her today due to staffing issues that she will not be able to dialyze tomorrow but she refused We plan to discharge her early tomorrow morning that she can get dialysis at her facility Denies any chest pain, palpitation, dizziness, shortness of breath. Review of Systems Review of Systems: All systems reviewed & are unremarkable except as noted in Subjective Physical Exam Physical Exam: General- No acute distress Head- atraumatic Eyes- PERRL, EOMI, ENT- oropharynx clear Neck- supple, no JVD Lungs- clear to auscultation Heart- regular rhythm; no murmur Abdomen- normal bowel sounds, soft, nontender Extremities- no calf tenderness, +wound in right foot cover with dressing, dressing removed to check the wound no pus, dressing mildly wet, healing well Neuro- alert, oriented x 3; PERRL, EOMI; no facial palsy; no dysarthria Skin- warm & dry Results & Data Results & Data ([facility]) Vital Signs (Past 12 Hours) Vital Signs Temp Pulse Pulse Resp BP Pulse Ox 04/22/21 21:31 36.7 C 79 20 153/74 H 95 04/22/21 19:28 36.3 C L 70 18 126/62 94 04/22/21 15:41 65 04/22/21 15:12 36.4 C L 73 20 111/55 L 98 04/22/21 10:07 56 L
[2021-04-22 22:22] LABS: Basophils # (auto) 0.06 K/uL (0-0.2); Basophils % (auto) 0.6 %; Echinocytes 1+; Eosinophils # (auto) 0.35 K/uL (0-0.5); Eosinophils % (auto) 3.4 %; Immature Granulocytes # (auto) 0.06 K/uL (0.00-0.02); Immature Granulocytes % (auto) 0.6 %; Lymphocytes # (auto) 2.18 K/uL (1.2-3.4); Lymphocytes % (auto) 20.9 %; Mean Platelet Volume 10.8 fL (7.4-10.4); Monocytes # (auto) 0.36 K/uL (0.11-0.59); Monocytes % (auto) 3.5 %; Platelet Count 75 K/uL (130-400); Platelet Estimate Decreased (Normal); Polychromasia 1+
[2021-04-22] MEDS: amLODIPine BESYLATE 5 MG TAB PO SCH (22:48)
[2021-04-22] MEDS: GABAPENTIN 100 MG CAP PO SCH (22:48)
[2021-04-22] MEDS: INSULIN GLARGINE SOLOSTAR 100 UNITS/ML 3 ML PEN SQ SCH (22:52)
[2021-04-23 00:49] LABS: Partial Thromboplastin Ratio 1.1; Partial Thromboplastin Time 29.4 Seconds (21.0-31.0)
--- NOTE | 2021-04-23 00:59 | 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 Note ---
Date of Service: April 23, 2021 Overnight developments : 2099 Jose ta called at dialysis unit. Transient unresponsiveness during dialysis session. Has happened before as per RN account. SBP 160s, BSG 160s. Patient denies chest pain. Admits to shortness of breath. Denies headache complaints. Chest x-ray as per my interpretation congestion EKG as per my interpretation : Rate 75, NSR, normal axis, nonspecific T wave abnormalities troponin 0.[address] head initial read: No acute intracranial process CT chest initial read: No pulmonaryembolus. No aortic aneurysmor dissection. There appears to be a filling defect of the right IJ surrounding the central venous catheter. Recommend further evaluation with dedicated DVT scan. The lungs are clear. Upper limits of normal heart size. No pathologicallyenlarged lymph nodes. No fracture. Incidentallynoted 1.2 cmleft adrenal adenoma, no follow-up is needed. AP Recurrent unresponsiveness during dialysis ? Dialysis disequilibrium Possible right IJ clot, thrombocytopenia Rule out DVT Rule out HIT Dialysis management as per Nephrology Hold Heparin HIT screen LE venous Dopplers rule out DVT Argatroban for possible HIT if imaging shows clot Will relay to AM provider.
[2021-04-23] MEDS ORDERED: OPTIRAY 320 125ml IV ONE (03:01)
--- NOTE | 2021-04-23 07:10 | CT Scan Report ---
CT head/brain wo con CLINICAL HISTORY: ams, low platelets COMPARISON STUDY: 04/16/2021 CT DOSE: 687.98 mGy.cm TECHNIQUE: Standard CT of the Brain was performed without IV contrast. A dose lowering technique was utilized adhering to the principles of ALARA. FINDINGS: Extraaxial space: There is no evidence for subdural hematoma. There are no extra-axial fluid collecti ons. Ventricles and cisterns: The ventricles are normal in size and configuration. There is no evidence f or midline shift or mass effect. Parenchyma: There is no subarachnoid or intraparenchymal hemorrhage. There is no evidence for an acu te infarct or cerebral edema. There is homogeneous attenuation of the brain parenchyma. There are no gross mass lesions. Osseous structures: There is no evidence for an acute fracture. The visualized paranasal sinuses are clear. The mastoid air cells are clear bilaterally. Soft tissues: There is no evidence for focal soft tissue swelling. IMPRESSION: No acute intracerebral pathology. There is no significant interval change. ACT 112: Negative or not required by law. Electronically signed by: Pj Moura M.D. 04/23/2021 7:09 AM
--- NOTE | 2021-04-23 07:22 | Ultrasound Report ---
BILATERAL LOWER EXTREMITY VENOUS DOPPLER HISTORY: Abnormal chest CT. Assess for DVT. COMPARISON STUDY: Chest CTA 04/23/2021. FINDINGS: There is a broken flow within one of 2 right posterior tibial veins which are noncompressib le. This likely represents partial thrombus. Remaining right lower extremity deep venous structures a re patent. No DVT within the left lower extremity. IMPRESSION: 1. Partial thrombus seen within one of 2 right posterior tibial veins. 2. No DVT within the left lower extremity. ACT 112: Negative or not required by law. Electronically signed by: Duane Baeza M.D. 04/23/2021 7:20 AM
[2021-04-23 07:26] LABS: Hematocrit (blood only) 30.6 % (37-47); Hemoglobin 9.8 g/dL (12.0-16.0); Mean Corpuscular Hemoglobin 32.2 pg (25-34); Mean Corpuscular Volume 100.7 fL (80-100); RDW Coefficient of Variation 15.9 % (11.5-14.5); Red Blood Count 3.04 M/uL (4.2-5.4); White Blood Count 8.21 K/uL (4.8-10.8)
[2021-04-23 07:29] LABS: Mean Platelet Volume 10.5 fL (7.4-10.4); Platelet Count 89 K/uL (130-400)
[2021-04-23 07:41] LABS: Partial Thromboplastin Time 26.8 Seconds (21.0-31.0)
[2021-04-23 07:49] LABS: Basophils # (auto) 0.02 K/uL (0-0.2); Basophils % (auto) 0.2 %; Eosinophils # (auto) 0.32 K/uL (0-0.5); Eosinophils % (auto) 3.9 %; Immature Granulocytes # (auto) 0.04 K/uL (0.00-0.02); Immature Granulocytes % (auto) 0.5 %; Lymphocytes # (auto) 1.19 K/uL (1.2-3.4); Lymphocytes % (auto) 14.5 %; Monocytes % (auto) 9.7 %; Neutrophils # (auto) 5.84 K/uL (1.4-6.5); Neutrophils % (auto) 71.2 %
--- NOTE | 2021-04-23 07:49 | XRay Report ---
XR chest 1V portable HISTORY: Shortness of breath. COMPARISON: Chest 04/16/2021. FINDINGS: No pneumothorax. No pleural fusions. The heart remains mildly enlarged. Calcified granuloma within the right upper lobe persists. Right jugular catheter terminates at the distal SVC. No new fo carmen lung consolidations to suggest pneumonia. There is mild central pulmonary vascular congestion wit hout overt edema. IMPRESSION: Cardiomegaly with mild central pulmonary vascular congestion without overt edema. ACT 112: Negative or not required by law. Electronically signed by: Duane Baeza M.D. 04/23/2021 7:47 AM
--- NOTE | 2021-04-23 07:50 | CT Scan Report ---
CT angio chest PE protocol CLINICAL HISTORY: sob, trop elev . Evaluate for pulmonary embolus COMPARISON STUDY: CTA chest from 01/18/2021 and portable chest from 04/22/2021 CT DOSE: 393.51 mGy.cm TECHNIQUE: CT Angio of the chest was performed.followed by image post processing with coronal, and s agittal MIP reformats. Contrast Volume: Optiray 320, 119 ml FINDINGS: Vasculature: There is homogeneous perfusion of the pulmonary vasculature bilaterally. No intraluminal filling defects or evidence for pulmonary embolus is seen. There is a large bore central venous catheter present on the right with evidence for a thrombus withi n the right jugular vein. Airway: The airway is clear. No endobronchial lesion is identified. Lungs: The lungs are clear of acute alveolar opacities, air bronchograms or pulmonary nodules. Pleura: There is no evidence for pleural effusion. There is no evidence for pneumothorax. Mediastinum: There is no evidence for pathologic adenopathy. The heart size is within normal limits. The thoracic aorta is within normal limits. There is no evidence for pericardial effusion. Upper abdomen:There is a 1.4 cm low-attenuation left adrenal nodule characteristic of an adenoma. The right adrenal gland is normal. There is a small sliding-type hiatal hernia. Osseous structures: There is no acute osseous pathology. Impression: 1. No CTA evidence for pulmonary embolus. 2. No acute chest disease. 3. Large bore right central venous catheter with evidence for a thrombus within the right jugular vei n. 4. Additional nonacute findings are delineated above. ACT 112: Negative or not required by law. Electronically signed by: Pj Moura M.D. 04/23/2021 7:48 AM
[2021-04-23 08:08] LABS: BUN Creatinine Ratio 11.4 (10-20); Calcium 9.2 mg/dl (8.5-10.1); Creatinine Clr Calc Pharmacy 6.1 ml/min; Est GFR (Non-African American) 4.3 ml/min; Potassium 4.1 mmol/L (3.5-5.1); Troponin I 1.02 ng/ml (0-0.045)
[2021-04-23] MEDS ORDERED: Heparin IV Adult Wt-Based Low-Dose *NO* Bolus Protocol ONE (08:25)
--- NOTE | 2021-04-23 08:36 | Pharmacy Report ---
Pharmacy Abx Dose Short Note - Date of Service April 23, 2021 - Assessment & Plan Assessment 65 year old F receiving vancomycin for treatment of osteomyelitis Day # 3 of antimicrobial therapy. Plan Vancomycin * Random level of 26.5 mcg/mL is supratherapeutic * Patient had HD for only 20 mins yesterday due to unresponsive episode * Random level ordered for: 04/24/21 Pharmacy will continue to follow and will adjust dose/frequency as necessary. Thank you.
[2021-04-23] MEDS: hydrALAZINE HCL 25 MG TAB PO SCH ×3 (08:54→21:06)
[2021-04-23] MEDS: CHOLECALCIFEROL 1,000 UNITS 25 MCG TAB PO SCH (08:54)
[2021-04-23] MEDS: carvediloL 12.5 MG TAB PO SCH ×2 (08:54→21:05)
[2021-04-23] MEDS: CLOPIDOGREL BISULFATE 75 MG TAB PO SCH (08:54)
[2021-04-23] MEDS: CALCIUM ACETATE 667 MG CAP/TAB PO SCH ×3 (08:54→17:08)
[2021-04-23] MEDS: NEPHROCAPS PO SCH (08:55)
[2021-04-23] MEDS: FUROSEMIDE 40 MG TAB PO SCH ×2 (08:55→17:08)
[2021-04-23] MEDS: MULTIVITAMIN TAB PO SCH (08:57)
[2021-04-23] MEDS: ATORVASTATIN 40 MG TAB PO SCH (08:57)
[2021-04-23] MEDS: INSULIN ASPART 100 UNITS/ML 3 ML PEN SC SCH ×4 (08:59→21:08)
[2021-04-23] MEDS: HEPARIN SODIUM/DEXTROSE 25,000 UNITS/500 ML BAG IV SCH (09:34)
--- NOTE | 2021-04-23 10:32 | Electrocardiogram Report ---
Test Reason : Blood Pressure : / mmHG Vent. Rate : 075 BPM Atrial Rate : 075 BPM P-R Int : 178 ms QRS Dur : 084 ms QT Int : 408 ms P-R-T Axes : 012 006 076 degrees QTc Int : 455 ms Normal sinus rhythm Nonspecific T wave abnormality Abnormal ECG When compared with ECG of 18-JAN-2021 11:33, Nonspecific T wave abnormality, worse in Anterolateral leads Confirmed by Favian Beck [id number] on 04/23/2021 10:32:04 AM Referred By: Reinier Ambrocio Confirmed By:Morgan Beck
--- NOTE | 2021-04-23 12:37 | Nephrology Progress Note ---
Date of Service April 23, 2021 Assessment & Plan (1) End stage renal failure on dialysis: (2) Diabetic infection of right foot: (3) Anemia due to chronic kidney disease: (4) Foot osteomyelitis, right: (5) Type 2 diabetes mellitus: Plan: End-stage renal disease secondary to diabetic nephropathy, on hemodialysis via right IJ tunneled dialysis catheter. Admitted with a right foot chronic diabetic nonhealing ulcer and osteomyelitis. H/O repeated episode of unr esponsiveness during HD , 3 times over last few month ( 11/27/20. 12/04/20, 01/18/21). Detail w/u was unremarkable. MRI and MRA of brain and neck was otherwise unremarkable. Had good neuro evaluation and there was no clear explanation of the episode of syncope, not suggestive of seizure, plan for routine EEG. On Vancomycin, will need for total 6 weeks after HD. Currently she is otherwise asymptomatic. Had another episode of unresponsiveness yesterday 30 minutes into dialysis but regained constitutional status within few minutes. Workup revealed right lower extremity DVT and DVT in right internal jugular vein although tunnel dialysis catheter has been functioning well. She was all schedule and ready for outpatient dialysis and vancomycin was arranged to be given after dialysis. -- Discussed with vascular team and conclusion is her events are unrelated to the tunnel catheter, jugular vein clot is not uncommon to see however since she was also found to have right lower extremity DVT, she probably will need anticoagulation. -- Will plan for dialysis tomorrow -- dose medications for GFR less than 10, -- left arm nephrology precaution for future vascular access. Will follow. Admission and Anticipated Discharge Date Admission Date: April 14, 2021 Joan Gr was seen this morning. She was awake, alert, no confusion however she is frustrated as she was not able to be discharged today. She had another episode of unresponsive during dialysis last evening, Similar to the prior events, she regained her consciousness within few minutes. Review of Systems Review of Systems: Detailed review of system was otherwise unremarkable. Physical Exam Constitutional: WD/WN, vitals as above no acute distress Neck: Rt IJ TDC Respiratory: normal respiratory effort; no respiratory distress Auscultation: lungs clear to auscultation bilaterally Cardiovascular: Rate/Rhythm: regular rate and regular rhythm Heart Sounds: normal S1 and normal S2 Extremities: no edema Neurologic: no focal motor deficits and not confused Psychiatric: Orientation: alert and oriented x 3 Results & Data ([facility]) Vital Signs (Past 12 Hours) Vital Signs Temp Pulse Resp BP Pulse Ox 04/23/21 12:00 36.7 C 62 20 109/63 95 04/23/21 08:01 36.6 C 61 20 122/66 97 04/23/21 03:07 73 18 160/62 H 96 PG Care Time/CCT Total # of Minutes Spent Total Time Spent with Patient: Total time spent is greater than 50% in coordination of care (as documented) at patient's floor/unit and/or counseling patient: Coding Level of Care Code 87145 Subseq Hosp Care Lvl 3 Diagnoses End stage renal failure on dialysis N18.6; Z99.2 Diabetic infection of right foot E11.628; L08.9 Anemia due to chronic kidney disease N18.9; D63.1 Foot osteomyelitis, right M86.9 Type 2 diabetes mellitus E11.22; N18.6; Z79.4; Z99.2 Chronic kidney disease stage: on chronic dialysis Diabetes mellitus complication detail: with chronic kidney disease Diabetes mellitus complication status: with kidney complications Diabetes mellitus terminal operations manager insulin use: with terminal operations manager use (1) Type 2 diabetes mellitus Chronic kidney disease stage: on chronic dialysis Diabetes mellitus co mplication detail: with chronic kidney disease Diabetes mellitus complication status: with kidney complications Diabetes mellitus senior care insulin use: with senior care use Qualified Code(s): E11.22 - Type 2 diabetes mellitus with diabetic chronic kidney disease; N18.6 - End stage renal disease; Z79.4 - terminal operations manager (current) use of insulin; Z99.2 - Dependence on renal dialysis
[2021-04-23 15:33] LABS: Partial Thromboplastin Ratio 1.2; Partial Thromboplastin Time 32.3 Seconds (21.0-31.0)
[2021-04-23] MEDS ORDERED: HEPARIN SOD (PORCINE) 1000 UNIT/ML IV ONE (16:04)
[2021-04-23] MEDS: amLODIPine BESYLATE 5 MG TAB PO SCH (21:04)
[2021-04-23] MEDS: GABAPENTIN 100 MG CAP PO SCH (21:06)
[2021-04-23] MEDS: INSULIN GLARGINE SOLOSTAR 100 UNITS/ML 3 ML PEN SQ SCH (21:08)
--- NOTE | 2021-04-23 21:48 | Hospitalist Progress Note ---
Date of Service April 23, 2021 Assessment & Plan (1) Foot osteomyelitis, right: Plan: Present on admission with worsening right foot wound diabetic foot infection Hx history osteomyelitis MRI of right foot showed deep to the skin ulceration within the lateral midfoot there is abnormal marrow signal within the base of the fifth metatarsal which is concerning for an osteomyelitis. Wound cx grew skin carla Blood cultures negative Was started on IV cefepime extended for 2 months once completed antibiotic doxycycline Ortho was consulted recommend nonoperative management-conservative management with IV antibiotic ID was consulted recommended IV Vanco after dialysis for 6 weeks If infection return, will need bone biopsy before starting antibiotic as per ID We will monitor CRP weekly and extending for 2 months after completes IV Vanco Vanco trough level for Osteomyelitis: 15 to 20 mcg/mL Will check random Vanco level Tomorrow AM Pharmacy on board for antibiotic management with vancomycin Continue Daily dressing changes right lateral heel and base of fifth metatarsal ulcerations. Will need outpatient follow-up with wound care clinic Patient would like to go home, not interested in rehab 04/23/21 Elevated Vanco trough Care only had 20 minutes of dialysis last night Case discussed with pharmacy that recommend to check Vanco random tomorrow We will consider IV Vanco 1 g after dialysis Continue monitor Recurrent Syncopal episode Happened 15 mins into her HD session 04/16/21, followed by emesis while unconscious Patient had another event of unresponsiveness last night ( only had 20 minutes d ialysis) Stroke Telemedicine consult performed No TPA given since patient, did not meet the criteria Brain MRI: negative MRA head and neck: no abnormalities noted Repeat CT head on 04/22 show no acute intracranial abnormality Neuro on board-no clinical evidence of seizure Echo: mild concentric LVH Cardiology on board-no further cardiac testing needed No focal neuro deficit Continue Lipitor and Plavix Right lower extremity DVT Right jugular vein DVT Doppler of LE showed partial thrombus seen within one of 2 right posterior tibial veins. CTA showed showed Large bore right central venous catheter with evidence for a thrombus within the right jugular vein. Case discussed with vascular surgeon Dr. Darby about the thrombosis around the right IJ catheter. As per vascular surgeon Dr. Darby no plan to exchange the right IJ catheter if the dialysis catheter has been functioning well. Recommended anticoagulation treatment Case discussed with hematology Dr. Duncan Due to her low platelet 4 calculated showed low probabil heat calculated was 3 that showed low probability for HIT Platelet count 89 today, will start on low-dose heparin drip with no bolus We will monitor closely for sign of bleeding End-stage renal disease HD on Monday and Monday She has a unresponsive event last night during dialysis Nephrology on board-Case discussed with nephrology Plan to hemodialyzed tomorrow Will need IV Vanco to be given possible after HD Hypertension BP has been fluctuated Continue amlodipine carvedilol and lisinopril continue monitor BP Chronic diastolic heart failure No evidence of volume overload Echo showed ejection fraction 55 to 60% Continue Lasix 40 mg twice daily and carvedilol 12.5 mg twice daily Diabetes type 2 Most recent hemoglobin A1c 6.2 on 04/17 Continue Lantus and insulin sliding scale Continue monitor blood sugar Thrombocytopenia Platelet improved from 75 to 89 today 4T score calculated showed no probability for HIT No sign of active bleeding We will monitor CBC closely while on heparin drip Chronic Anemia Hemoglobin at baseline DVT prophylaxis. Heparin drip Full code Disposition We will discharge home when medically stable Admission and Anticipated Discharge Date Admission Date: April 14, 2021 Subjective Patient was seen and evaluated for follow-up of unresponsive Last night about 20 minutes in dialysis patient had an episode of unresponsive, she regained consciousness within few minutes Patient said this is not her first event, she said that she had about 4 episodes in the last few months Currently she said she feels fine She is very anxious to go home because she has some bills today Denies any chest pain, palpitation, dizziness, shortness of breath. Review of Systems Review of Systems: All systems reviewed & are unremarkable except as noted in Subjective Physical Exam Physical Exam: General- No acute distress Head- atraumatic Eyes- PERRL, EOMI, ENT- oropharynx clear Neck- supple, no JVD, Right IJ TDC Lungs- clear to auscultation Heart- regular rhythm; no murmur Abdomen- normal bowel sounds, soft, nontender Extremities- no calf tenderness, +wound in right foot cover with dressing, dressing removed to check the wound no pus, dressing mildly wet, healing well Neuro- alert, oriented x 3; PERRL, EOMI; no facial palsy; no dysarthria Skin- warm & dry Results & Data Results & Data ([facility]) Vital Signs (Past 12 Hours) Vital Signs Temp Pulse Pulse Resp BP Pulse Ox 04/23/21 21:01 73 134/65 04/23/21 20:07 36.6 C 71 18 135/67 95 04/23/21 15:15 36.8 C 72 20 133/58 L 97 04/23/21 15:10 66 04/23/21 13:28 67 04/23/21 12:00 36.7 C 62 20 109/63 95
[2021-04-24 00:02] LABS: Partial Thromboplastin Ratio 1.3; Partial Thromboplastin Time 33.7 Seconds (21.0-31.0)
[2021-04-24] MEDS ORDERED: HEPARIN SOD (PORCINE) 1000 UNIT/ML IV ONE (00:30)
[2021-04-24 06:37] LABS: Hematocrit (blood only) 28.3 % (37-47); Hemoglobin 9.1 g/dL (12.0-16.0); Mean Corpuscular Hemoglobin 32.3 pg (25-34); Mean Corpuscular Hgb Conc 32.2 g/dL (32-36); Mean Corpuscular Volume 100.4 fL (80-100); RDW Coefficient of Variation 15.9 % (11.5-14.5); Red Blood Count 2.82 M/uL (4.2-5.4); White Blood Count 8.27 K/uL (4.8-10.8)
[2021-04-24 06:47] LABS: Mean Platelet Volume 10.6 fL (7.4-10.4); Platelet Count 93 K/uL (130-400)
[2021-04-24 06:59] LABS: Partial Thromboplastin Ratio 2.3
[2021-04-24 07:01] LABS: Partial Thromboplastin Time 59.2 Seconds (21.0-31.0)
[2021-04-24 07:25] LABS: BUN Creatinine Ratio 11.4 (10-20); Calcium 9.2 mg/dl (8.5-10.1); Creatinine Clr Calc Pharmacy 5.1 ml/min; Est GFR (African American) 3.9 ml/min; Est GFR (Non-African American) 3.4 ml/min; Potassium 4.5 mmol/L (3.5-5.1)
[2021-04-24] MEDS: ATORVASTATIN 40 MG TAB PO SCH (08:49)
[2021-04-24] MEDS: CLOPIDOGREL BISULFATE 75 MG TAB PO SCH (08:49)
[2021-04-24] MEDS: CALCIUM ACETATE 667 MG CAP/TAB PO SCH ×3 (08:49→17:29)
[2021-04-24] MEDS: MULTIVITAMIN TAB PO SCH (08:50)
[2021-04-24] MEDS: CHOLECALCIFEROL 1,000 UNITS 25 MCG TAB PO SCH (08:50)
[2021-04-24] MEDS: NEPHROCAPS PO SCH (08:50)
[2021-04-24] MEDS: INSULIN ASPART 100 UNITS/ML 3 ML PEN SC SCH ×4 (08:53→20:56)
[2021-04-24] MEDS: carvediloL 12.5 MG TAB PO SCH ×2 (09:00→20:53)
[2021-04-24] MEDS: hydrALAZINE HCL 25 MG TAB PO SCH ×3 (11:08→20:55)
--- NOTE | 2021-04-24 13:55 | Nephrology Progress Note ---
Date of Service April 24, 2021 Assessment & Plan (1) End stage renal failure on dialysis: Plan: ESRD attributed to DKD. HD via RIJ TDC. MWF schedule as outpatient. TTS schedule while inpatient. Orders for HD today entered into EHR. Multiple episodes of sudden LOC during HD. Extensive work up reviewed. Controlled as an outpatient wiht low Qb and slow titration. Will adjust inpatient Rx accordingly and monitor. Vancomycin to be given post HD. Plan to continue antibiotic at [facility] resuming prior HD treatment schedule and Rx post discharge. Medications appropriate for kidney dysfunction. Clearances acceptable. (2) Diabetic infection of right foot: Plan: Plan to complete 6 weeks of vancomycin. ID consultation reviewed today. (3) Anemia due to chronic kidney disease: Plan: Epogen provided with HD as inpatient. Resume Micera post discharge. H/H stable. (4) Foot osteomyelitis, right: (5) Type 2 diabetes mellitus: Admission and Anticipated Discharge Date Admission Date: April 14, 2021 Subjective No acute events overnight. Jeri feels well this AM. She hopes to be discharged home in the next couple of days. Breathing comfortably. No fevers or chills. Denies pain. I discussed the plan of care with Dr. Christopher this AM. Review of Systems Review of Systems: All systems reviewed & are unremarkable except as noted in HPI & below Physical Exam Constitutional: well developed; no acute distress Eyes: no scleral abnormality and no corneal abnormality ENMT: Mouth: no oral mucosal abnormality and oral mucous membranes not dry Neck: normal visual inspection and trachea midline RIJ TDC Respiratory: normal respiratory effort Auscultation: lungs clear to auscultation bilaterally Cardiovascular: Rate/Rhythm: regular rate Heart Sounds: normal S1 and normal S2 Extremities: + pedal edema Musculoskeletal: Extremities: no cyanosis and no clubbing Skin: normal turgor; no lesions Neurologic: Motor/Sensory: no tremor and no asterixis Psychiatric: Orientation: alert and oriented x 3 Results & Data ([facility]) Vital Signs (Past 12 Hours) Vital Signs Temp Pulse Pulse Resp BP Pulse Ox 04/24/21 11:00 36.4 C L 71 20 116/56 L 97 04/24/21 08:00 36.6 C 68 18 109/62 96 04/24/21 06:20 64 04/24/21 04:09 36.7 C 68 18 112/64 96 Laboratory Results Laboratory Results - last 24 hr 04/23/21 04/23/21 04/23/21 07:02 15:08 16:26 WBC RBC Hgb Hct MCV MCH MCHC RDW Std Deviation RDW Coeff of Rico Plt Count MPV APTT 32.3 H PTT Ratio 1.2 Sodium Potassium Chloride Carbon Dioxide Anion Gap BUN Creatinine Est Cr Clr Drug Dosing Est GFR ( Amer) Est GFR (Non-Af Amer) BUN/Creatinine Ratio Glucose POC Glucose 148 H Calcium Serotonin Release Assay Pending Random Vancomycin Heparin Depend Plt Ab Pending 04/23/21 04/23/21 04/24/21 20:47 23:13 06:07 WBC RBC Hgb Hct MCV MCH MCHC RDW Std Deviation RDW Coeff of Rico Plt Count MPV APTT 33.7 H PTT Ratio 1.3 Sodium Potassium Chloride Carbon Dioxide Anion Gap BUN Creatinine Est Cr Clr Drug Dosing Est GFR ( Amer) Est GFR (Non-Af Amer) BUN/Creatinine Ratio Glucose POC Glucose 239 H Calcium Serotonin Release Assay Random Vancomycin 25.5 Heparin Depend Plt Ab 04/24/21 04/24/21 04/24/21 06:07 06:07 06:07 WBC 8.27 RBC 2.82 L Hgb 9.1 L Hct 28.3 L MCV 100.4 H MCH 32.3 MCHC 32.2 RDW Std Deviation 57.0 H RDW Coeff of Rico 15.9 H Plt Count 93 L MPV 10.6 H APTT 59.2 H* PTT Ratio 2.3 Sodium 135 L Potassium 4.5 Chloride 101 Carbon Dioxide 18 L Anion Gap 17.0 H BUN 120 H Creatinine 10.60 H* D Est Cr Clr Drug Dosing 5.1 Est GFR ( Amer) 3.9 Est GFR (Non-Af Amer) 3.4 BUN/Creatinine Ratio 11.4 Glucose 116 H POC Glucose Calcium 9.2 Serotonin Release Assay Random Vancomycin Heparin Depend Plt Ab 04/24/21 04/24/21 07:53 11:30 WBC RBC Hgb Hct MCV MCH MCHC RDW Std Deviation RDW Coeff of Rico Plt Count MPV APTT PTT Ratio Sodium Potassium Chloride Carbon Dioxide Anion Gap BUN Creatinine Est Cr Clr Drug Dosing Est GFR ( Amer) Est GFR (Non-Af Amer) BUN/Creatinine Ratio Glucose POC Glucose 106 H 167 H Calcium Serotonin Release Assay Random Vancomycin Heparin Depend Plt Ab PG Care Time/CCT Total # of Minutes Spent Total Time Spent with Patient: Total time spent is greater than 50% in coordination of care (as documented) at patient's floor/unit and/or counseling patient: Coding Level of Care Code 45111 Subseq Hosp Care Lvl 3 Diagnoses End stage renal failure on dialysis N18.6; Z99.2 Diabetic infection of right foot E11.628; L08.9 Anemia due to chronic kidney disease N18.9; D63.1 Foot osteomyelitis, right M86.9 Type 2 diabetes mellitus E11.22; N18.6; Z79.4; Z99.2 Chronic kidney disease stage: on chronic dialysis Diabetes mellitus complication detail: with chronic kidney disease Diabetes mellitus complication status: with kidney complications Diabetes mellitus mcc insulin use: with tank terminal gauger use (1) Type 2 diabetes mellitus Chronic kidney disease stage: on chronic dialysis Diabetes mellitus complication detail: with chronic kidney disease Diabetes mellitus complication status: with kidney complications Diabetes mellitus mcc insulin use: with tank terminal gauger use Qualified Code(s): E11.22 - Type 2 diabetes mellitus with diabetic chronic kidney disease; N18.6 - End stage renal disease; Z79.4 - MCFP (current) use of insulin; Z99.2 - Dependence on renal dialysis
--- NOTE | 2021-04-24 15:11 | Pharmacy Report ---
Pharmacy Vanc [facility] Short Note - Date of Service April 24, 2021 - Assessment & Plan Assessment 65 year old F receiving vancomycin for osteomyelitis Plan Vancomycin * Random vancomycin level this AM ~26 mcg/ml - estimated dialysis will remove about ~30% with dialysis. Dialysis order for today. Estimated level following dialysis closer to ~18 mcg/ml * Patient to still remain therapeutic post dialysis >15 mcg/ml. Will hold vancomycin dose today and order another random level in AM to assist with further dosing * Anticipate patient may need 500-750 mg post dialysis days. Will follow Pharmacy will continue to follow and will adjust dose/frequency as necessary. Thank you.
[2021-04-24] MEDS: HEPARIN SODIUM/DEXTROSE 25,000 UNITS/500 ML BAG IV SCH ×2 (15:31→21:19)
[2021-04-24] MEDS: FUROSEMIDE 40 MG TAB PO SCH ×2 (15:49→17:29)
--- NOTE | 2021-04-24 19:50 | Hospitalist Progress Note ---
Date of Service April 24, 2021 Assessment & Plan (1) Foot osteomyelitis, right: Plan: Present on admission with worsening right foot wound diabetic foot infection Hx history osteomyelitis MRI of right foot showed deep to the skin ulceration within the lateral midfoot there is abnormal marrow signal within the base of the fifth metatarsal which is concerning for an osteomyelitis. Wound cx grew skin carla Blood cultures negative Was started on IV cefepime extended for 2 months once completed antibiotic doxycycline Ortho was consulted recommend nonoperative management-conservative management with IV antibiotic ID was consulted recommended IV Vanco after dialysis for 6 weeks If infection return, will need bone biopsy before starting antibiotic as per ID We will monitor CRP weekly and extending for 2 months after completes IV Vanco Vanco trough level for Osteomyelitis: 15 to 20 mcg/mL Will check random Vanco level Tomorrow AM Pharmacy on board for antibiotic management with vancomycin Continue Daily dressing changes right lateral heel and base of fifth metatarsal ulcerations. Will need outpatient follow-up with wound care clinic Patient would like to go home, not interested in rehab 04/24/21 Elevated Vanco trough Plan to have dialysis today We will check Vanco random in a.m. Continue monitor Recurrent Syncopal episode Happened 15 mins into her HD session 04/16/21, followed by emesis while unconscious Patient had another event of unresponsiveness last night ( only had 20 minutes dialysis) Stroke Telemedicine consult performed No TPA given since patient, did not meet the criteria Brain MRI: negative MRA head and neck: no abnormalities noted Repeat CT head on 04/22 show no acute intracranial abnormality Neuro on board-no clinical evidence of seizure Echo: mild concentric LVH Cardiology on board-no further cardiac testing needed No focal neuro deficit Continue Lipitor and Plavix Right lower extremity DVT Right jugular vein DVT Doppler of LE showed partial thrombus seen within one of 2 right posterior tibial veins. CTA showed showed Large bore right central venous catheter with evidence for a thrombus within the right jugular vein. Case discussed with vascular surgeon Dr. Darby about the thrombosis around the right IJ catheter. As per vascular surgeon Dr. Darby no plan to exchange the right IJ catheter if the dialysis catheter has been functioning well. Recommended anticoagulation treatment Case discussed with hematology Dr. Duncan Due to her low platelet 4 calculated showed low probabil heat calculated was 3 that showed low probability for HIT Tolerated low-dose heparin. platelet 93 with no sign of bleeding Case discussed with Dr. Duncan today that recommend full dose of Eliquis will transition to Will transition to Eliquis 10 mg BID for 7 days then 5 mg twice daily We will contiue monitor closely for sign of bleeding End-stage renal disease HD on Monday and Monday She has a unresponsive event on during dialysis Nephrology on board-Case discussed with nephrology Plan to hemodialyzed today Hypertension BP has been fluctuated Continue amlodipine carvedilol and lisinopril continue monitor BP Chronic diastolic heart failure No evidence of volume overload Echo showed ejection fraction 55 to 60% Continue Lasix 40 mg twice daily and carvedilol 12.5 mg twice daily Diabetes type 2 Most recent hemoglobin A1c 6.2 on 04/17 Continue Lantus and insulin sliding scale Continue monitor blood sugar Thrombocytopenia Platelet improved from 75 to 89 --> 93 today 4T score calculated showed no probability for HIT No sign of active bleeding We will monitor CBC closely while on heparin drip Chronic Anemia Hemoglobin 9.1 today DVT prophylaxis on Heparin drip/ will transition to eliquis Full code Disposition We will discharge home when medically stable Admission and Anticipated Discharge Date Admission Date: April 14, 2021 Subjective Patient was seen and evaluated for follow-up At the edge of the bed with no acute distress She is very anxious to go home in the next few days Nephrology plan to dialyze her today Denies any chest pain, palpitation, dizziness, shortness of breath. Review of Systems Review of Systems: All systems reviewed & are unremarkable except as noted in Subjective Physical Exam Physical Exam: General- No acute distress Head- atraumatic Eyes- PERRL, EOMI, ENT- oropharynx clear Neck- supple, no JVD, Right IJ TDC Lungs- clear to auscultation Heart- regular rhythm; no murmur Abdomen- normal bowel sounds, soft, nontender Extremities- no calf tenderness, +wound in right foot cover with dressing, dressing removed to check the wound no pus, dressing mildly wet, healing well Neuro- alert, oriented x 3; PERRL, EOMI; no facial palsy; no dysarthria Skin- warm & dry Results & Data Results & Data ([facility]) Vital Signs (Past 12 Hours) Vital Signs Temp Pulse Resp BP Pulse Ox 04/24/21 11:00 36.4 C L 71 20 116/56 L 97 04/24/21 08:00 36.6 C 68 18 109/62 96
[2021-04-24] MEDS: APIXABAN 5 MG TABLET PO SCH (20:54)
[2021-04-24] MEDS: amLODIPine BESYLATE 5 MG TAB PO SCH (20:54)
[2021-04-24] MEDS: GABAPENTIN 100 MG CAP PO SCH (20:54)
[2021-04-24] MEDS: INSULIN GLARGINE SOLOSTAR 100 UNITS/ML 3 ML PEN SQ SCH (20:56)
[2021-04-25 06:54] LABS: Partial Thromboplastin Ratio 1.3; Partial Thromboplastin Time 34.2 Seconds (21.0-31.0)
[2021-04-25 07:22] LABS: Basophils # (auto) 0.05 K/uL (0-0.2); Basophils % (auto) 0.7 %; Eosinophils # (auto) 0.32 K/uL (0-0.5); Eosinophils % (auto) 4.3 %; Hematocrit (blood only) 28.9 % (37-47); Hemoglobin 9.2 g/dL (12.0-16.0); Immature Granulocytes # (auto) 0.02 K/uL (0.00-0.02); Immature Granulocytes % (auto) 0.3 %; Lymphocytes # (auto) 1.12 K/uL (1.2-3.4); Lymphocytes % (auto) 15.1 %; Mean Corpuscular Hemoglobin 32.2 pg (25-34); Mean Corpuscular Hgb Conc 31.8 g/dL (32-36); Monocytes # (auto) 1.06 K/uL (0.11-0.59); Monocytes % (auto) 14.3 %; Neutrophils # (auto) 4.85 K/uL (1.4-6.5); Neutrophils % (auto) 65.3 %; Platelet Count 35 K/uL (130-400); Platelet Estimate SIGNIFIC DECREASED (Normal); RDW Coefficient of Variation 16.1 % (11.5-14.5); RDW Standard Deviation 58.1 fL (36.4-46.3); Red Blood Count 2.86 M/uL (4.2-5.4); White Blood Count 7.42 K/uL (4.8-10.8)
[2021-04-25 07:31] LABS: BUN Creatinine Ratio 11.2 (10-20); Calcium 9.2 mg/dl (8.5-10.1); Creatinine Clr Calc Pharmacy 7.4 ml/min; Est GFR (African American) 6.3 ml/min; Est GFR (Non-African American) 5.4 ml/min; Potassium 4.3 mmol/L (3.5-5.1)
[2021-04-25] MEDS: APIXABAN 5 MG TABLET PO SCH ×2 (07:49→21:23)
[2021-04-25] MEDS: CALCIUM ACETATE 667 MG CAP/TAB PO SCH ×3 (07:49→16:55)
[2021-04-25] MEDS: ATORVASTATIN 40 MG TAB PO SCH (07:50)
[2021-04-25] MEDS: carvediloL 12.5 MG TAB PO SCH ×2 (07:50→21:22)
[2021-04-25] MEDS: CHOLECALCIFEROL 1,000 UNITS 25 MCG TAB PO SCH (07:50)
[2021-04-25] MEDS: FUROSEMIDE 40 MG TAB PO SCH ×2 (07:51→16:55)
[2021-04-25] MEDS: CLOPIDOGREL BISULFATE 75 MG TAB PO SCH (07:51)
[2021-04-25] MEDS: hydrALAZINE HCL 25 MG TAB PO SCH ×3 (07:51→21:22)
[2021-04-25] MEDS: NEPHROCAPS PO SCH (07:52)
[2021-04-25] MEDS: MULTIVITAMIN TAB PO SCH (07:52)
[2021-04-25] MEDS: INSULIN ASPART 100 UNITS/ML 3 ML PEN SC SCH ×4 (08:03→21:31)
--- NOTE | 2021-04-25 11:30 | Pharmacy Report ---
Pharmacy Vanc [facility] Short Note - Date of Service April 25, 2021 - Assessment & Plan Assessment 65 year old F receiving vancomycin for osteomyelitis Plan Vancomycin * Random vancomycin level this AM therapeutic at ~20 mcg/ml (goal 15-20 mcg/ml for osteo, target closer to ~20 mcg/ml) * Had received dialysis yesterday, next session is Friday 04/27. Would anticipate that after next dialysis session level will drop below ~15 mcg/ml, therefore will give a small dose of vancomycin today * Will give vancomycin 500 mg x 1. Plan to order another random level prior to next dialysis session on Monday to assist with further dosing Pharmacy will continue to follow and will adjust dose/frequency as necessary. Thank you.
--- NOTE | 2021-04-25 11:39 | Nephrology Progress Note ---
Date of Service April 25, 2021 Assessment & Plan (1) End stage renal failure on dialysis: Plan: ESRD attributed to DKD. HD via RIJ TDC. MWF schedule as outpatient. TTS schedule while inpatient. Completed treatment yesterday with adequate clearance. Volume status reasonable. Multiple episodes of sudden LOC during HD. Extensive work up reviewed. Controlled as an outpatient with low Qb and slow titration. Vancomycin to be given post HD. Plan to continue antibiotic at [facility] resuming prior HD treatment schedule and Rx post discharge. Medications appropriate for kidney dysfunction. HIT ab pending. Avoid heparin with HD due to thrombocytopenia. (2) Diabetic infection of right foot: Plan: Plan to complete 6 weeks of vancomycin with ID follow up. Arrangements have been coordinated with outpatient HD unit. (3) Anemia due to chronic kidney disease: Plan: Epogen provided with HD as inpatient. Resume Micera post discharge. H/H stable. (4) Foot osteomyelitis, right: (5) Type 2 diabetes mellitus: Admission and Anticipated Discharge Date Admission Date: April 14, 2021 Subjective No acute events overnight. Tolerated HD yesterday without complications. I discussed the plan of care with Dr. Christopher this AM. Platelets have unfortunately dropped. HIT ab pending. Review of Systems Review of Systems: All systems reviewed & are unremarkable except as noted in HPI & below Physical Exam Constitutional: well developed; no acute distress Eyes: no scleral abnormality and no corneal abnormality ENMT: Mouth: no oral mucosal abnormality and oral mucous membranes not dry Neck: normal visual inspection and trachea midline Respiratory: normal respiratory effort Auscultation: lungs clear to auscultation bilaterally Cardiovascular: Rate/Rhythm: regular rate Heart Sounds: normal S1 and normal S2 Extremities: + pedal edema Musculoskeletal: Extremities: no cyanosis and no clubbing Skin: normal turgor; no lesions Neurologic: Motor/Sensory: no tremor and no asterixis Psychiatric: Orientation: alert and oriented x 3 Results & Data ([facility]) Vital Signs (Past 12 Hours) Vital Signs Temp Pulse Pulse Resp BP Pulse Ox 04/25/21 07:46 36.6 C 65 18 125/64 98 04/25/21 06:20 64 04/25/21 04:06 36.9 C 78 18 127/65 98 04/24/21 23:57 37.1 C 75 18 122/63 97 Laboratory Results Laboratory Results - last 24 hr 04/24/21 04/24/21 04/25/21 17:25 20:14 06:28 WBC RBC Hgb Hct MCV MCH MCHC RDW Std Deviation RDW Coeff of Rico Plt Count MPV Immature Gran % (Auto) Neut % (Auto) Lymph % (Auto) Dunn % (Auto) Eos % (Auto) Baso % (Auto) Neut # (Auto) Lymph # (Auto) Dunn # (Auto) Eos # (Auto) Baso # (Auto) Immature Gran # (Auto) Platelet Estimate APTT PTT Ratio Sodium Potassium Chloride Carbon Dioxide Anion Gap BUN Creatinine Est Cr Clr Drug Dosing Est GFR ( Amer) Est GFR (Non-Af Amer) BUN/Creatinine Ratio Glucose POC Glucose 100 H 248 H Calcium Random Vancomycin 20.4 04/25/21 04/25/21 04/25/21 06:28 06:28 06:28 WBC 7.42 RBC 2.86 L Hgb 9.2 L Hct 28.9 L MCV 101.0 H MCH 32.2 MCHC 31.8 L RDW Std Deviation 58.1 H RDW Coeff of Rico 16.1 H Plt Count 35 L D MPV 12.0 H Immature Gran % (Auto) 0.3 Neut % (Auto) 65.3 Lymph % (Auto) 15.1 Dunn % (Auto) 14.3 Eos % (Auto) 4.3 Baso % (Auto) 0.7 Neut # (Auto) 4.85 Lymph # (Auto) 1.12 L Dunn # (Auto) 1.06 H Eos # (Auto) 0.32 Baso # (Auto) 0.05 Immature Gran # (Auto) 0.02 Platelet Estimate SIGNIFIC DECREASED APTT 34.2 H PTT Ratio 1.3 Sodium 137 Potassium 4.3 Chloride 104 Carbon Dioxide 25 Anion Gap 8.0 BUN 80 H Creatinine 7.21 H* D Est Cr Clr Drug Dosing 7.4 Est GFR ( Amer) 6.3 Est GFR (Non-Af Amer) 5.4 BUN/Creatinine Ratio 11.2 Glucose 76 POC Glucose Calcium 9.2 Random Vancomycin 04/25/21 04/25/21 07:23 11:28 WBC RBC Hgb Hct MCV MCH MCHC RDW Std Deviation RDW Coeff of Rico Plt Count MPV Immature Gran % (Auto) Neut % (Auto) Lymph % (Auto) Dunn % (Auto) Eos % (Auto) Baso % (Auto) Neut # (Auto) Lymph # (Auto) Dunn # (Auto) Eos # (Auto) Baso # (Auto) Immature Gran # (Auto) Platelet Estimate APTT PTT Ratio Sodium Potassium Chloride Carbon Dioxide Anion Gap BUN Creatinine Est Cr Clr Drug Dosing Est GFR ( Amer) Est GFR (Non-Af Amer) BUN/Creatinine Ratio Glucose POC Glucose 76 147 H Calcium Random Vancomycin PG Care Time/CCT Total # of Minutes Spent Total Time Spent with Patient: Total time spent is greater than 50% in coordination of care (as documented) at patient's floor/unit and/or counseling patient: Coding Level of Care Code 91758 Subseq Hosp Care Lvl 3 Diagnoses End stage renal failure on dialysis N18.6; Z99.2 Diabetic infection of right foot E11.628; L08.9 Anemia due to chronic kidney disease N18.9; D63.1 Foot osteomyelitis, right M86.9 Type 2 diabetes mellitus E11.22; N18.6; Z79.4; Z99.2 Chronic kidney disease stage: on chronic dialysis Diabetes mellitus complication detail: with chronic kidney disease Diabetes mellitus complication status: with kidney complications Diabetes mellitus bed bug exterminator insulin use: with bed bug exterminator use (1) Type 2 diabetes mellitus Chronic kidney disease stage: on chronic dialysis Diabetes mellitus c omplication detail: with chronic kidney disease Diabetes mellitus complication status: with kidney complications Diabetes mellitus jail insulin use: with jail use Qualified Code(s): E11.22 - Type 2 diabetes mellitus with diabetic chronic kidney disease; N18.6 - End stage renal disease; Z79.4 - exterminator helper (current) use of insulin; Z99.2 - Dependence on renal dialysis
[2021-04-25] MEDS ORDERED: VANCOMYCIN HCL 500 MG in 0.9 % SODIUM CHLORIDE 100 ML IV ONE (16:00)
[2021-04-25] MEDS: GABAPENTIN 100 MG CAP PO SCH (21:22)
[2021-04-25] MEDS: amLODIPine BESYLATE 5 MG TAB PO SCH (21:23)
[2021-04-25] MEDS: INSULIN GLARGINE SOLOSTAR 100 UNITS/ML 3 ML PEN SQ SCH (21:30)
--- NOTE | 2021-04-25 23:53 | Hospitalist Progress Note ---
Date of Service April 25, 2021 Assessment & Plan (1) Foot osteomyelitis, right: Plan: Present on admission with worsening right foot wound diabetic foot infection Hx history osteomyelitis MRI of right foot showed deep to the skin ulceration within the lateral midfoot there is abnormal marrow signal within the base of the fifth metatarsal which is concerning for an osteomyelitis. Wound cx grew skin carla Blood cultures negative Was started on IV cefepime extended for 2 months once completed antibiotic doxycycline Ortho was consulted recommend nonoperative management-conservative management with IV antibiotic ID was consulted recommended IV Vanco after dialysis for 6 weeks If infection return, will need bone biopsy before starting antibiotic as per ID We will monitor CRP weekly and extending for 2 months after completes IV Vanco Vanco trough level for Osteomyelitis: 15 to 20 mcg/mL Will check random Vanco level Tomorrow AM Pharmacy on board for antibiotic management with vancomycin Continue Daily dressing changes right lateral heel and base of fifth metatarsal ulcerations. Will need outpatient follow-up with wound care clinic Patient would like to go home, not interested in rehab 04/25/21 Vanco random 20.4 today (goal between 15-20) Had hemodialyzed done yesterday Pharmacy on board to help with vancomycin dosage Vancomycin 500 mg given today We will check Vanco random level prior to next hemodialysis Recurrent Syncopal episode Happened 15 mins into her HD session 04/16/21, followed by emesis while unconscious Patient had another event of unresponsiveness last night ( only had 20 minutes dialysis) Stroke Telemedicine consult performed No TPA given since patient, did not meet the criteria Brain MRI: negative MRA head and neck: no abnormalities noted Repeat CT head on 04/22 show no acute intracranial abnormality Neuro on board-no clinical evidence of seizure Echo: mild concentric LVH Cardiology on board-no further cardiac testing needed No focal neuro deficit Will hold Plavix due to low platelet Continue Lipitor Right lower extremity DVT Right jugular vein DVT Doppler of LE showed partial thrombus seen within one of 2 right posterior tibial veins. CTA showed showed Large bore right central venous catheter with evidence for a thrombus within the right jugular vein. Case discussed with vascular surgeon Dr. Darby about the thrombosis around the right IJ catheter. As per vascular surgeon Dr. Darby no plan to exchange the right IJ catheter if the dialysis catheter has been functioning well. Recommended anticoagulation treatment Case discussed with hematology Dr. Duncan Due to her low platelet 4 calculated showed low probabil heat calculated was 3 that showed low probability for HIT Tolerated low-dose heparin. platelet 93 with no sign of bleeding Case discussed with Dr. Duncan today that recommend full dose of Eliquis will transition to Continue Eliquis 10 mg twice daily for 7 days then will continue with 5 mg twice daily We will hold Plavix for now We will continue monitor closely for sign of bleeding due to low platelet Thrombocytopenia Platelet improved from 75 to 89 --> 93 --->35 today 4T score calculated showed no probability for HIT HIT ab pending No sign of active bleeding Case discussed with Dr. Nicole that we recommend to monitor platelet level and okay to continue Eliquis for now We will hold Plavix End-stage renal disease HD on Monday and Monday She has a unresponsive event on during dialysis Nephrology on board-Case discussed with nephrology Next hemodialysis scheduled for Monday if inpatient Hypertension BP has been fluctuated Continue amlodipine carvedilol and lisinopril continue monitor BP Chronic diastolic heart failure No evidence of volume overload Echo showed ejection fraction 55 to 60% Continue Lasix 40 mg twice daily and carvedilol 12.5 mg twice daily Diabetes type 2 Most recent hemoglobin A1c 6.2 on 04/17 Continue Lantus and insulin sliding scale Continue monitor blood sugar Chronic Anemia Hemoglobin 9.2 today DVT prophylaxis on Eliquis Full code Disposition We will discharge home when medically stable Admission and Anticipated Discharge Date Admission Date: April 14, 2021 Subjective Patient was seen and examined for follow-up of low platelet count Sitting on the edge of the bed with no acute distress She is very anxious to go home today Denies any abnormal bleeding, chest pain, palpitation, dizziness, shortness of breath. Review of Systems Review of Systems: All systems reviewed & are unremarkable except as noted in Subjective Physical Exam Physical Exam: General- No acute distress Head- atraumatic Eyes- PERRL, EOMI, ENT- oropharynx clear Neck- supple, no JVD, Right IJ TDC Lungs- clear to auscultation Heart- regular rhythm; no murmur Abdomen- normal bowel sounds, soft, nontender Extremities- no calf tenderness, +wound in right foot cover with dressing, dressing removed to check the wound no pus, dressing mildly wet, healing well Neuro- alert, oriented x 3; PERRL, EOMI; no facial palsy; no dysarthria Skin- warm & dry Results & Data Results & Data ([facility]) Vital Signs (Past 12 Hours) Vital Signs Temp Pulse Pulse Resp BP Pulse Ox 04/25/21 23:21 36.5 C 64 18 124/70 93 04/25/21 21:21 66 131/68 04/25/21 19:07 36.3 C L 92 H 20 118/66 96 04/25/21 15:00 36.4 C L 61 20 125/64 98 04/25/21 14:19 58 L
[2021-04-26] MEDS: CHOLECALCIFEROL 1,000 UNITS 25 MCG TAB PO SCH (08:01)
[2021-04-26] MEDS: NEPHROCAPS PO SCH (08:01)
[2021-04-26] MEDS: ATORVASTATIN 40 MG TAB PO SCH (08:01)
[2021-04-26] MEDS: CALCIUM ACETATE 667 MG CAP/TAB PO SCH ×3 (08:01→17:16)
[2021-04-26] MEDS: MULTIVITAMIN TAB PO SCH (08:02)
[2021-04-26] MEDS: FUROSEMIDE 40 MG TAB PO SCH ×2 (08:04→17:16)
[2021-04-26] MEDS: hydrALAZINE HCL 25 MG TAB PO SCH ×3 (08:04→20:48)
[2021-04-26] MEDS: APIXABAN 5 MG TABLET PO SCH ×2 (08:04→20:46)
[2021-04-26] MEDS: carvediloL 12.5 MG TAB PO SCH ×2 (08:05→20:47)
[2021-04-26] MEDS: INSULIN ASPART 100 UNITS/ML 3 ML PEN SC SCH ×4 (08:06→20:49)
[2021-04-26 09:58] LABS: Hematocrit (blood only) 30.7 % (37-47); Hemoglobin 9.7 g/dL (12.0-16.0); Mean Corpuscular Hgb Conc 31.6 g/dL (32-36); Mean Corpuscular Volume 101.3 fL (80-100); Mean Platelet Volume 11.4 fL (7.4-10.4); Platelet Count 62 K/uL (130-400); RDW Coefficient of Variation 15.8 % (11.5-14.5); RDW Standard Deviation 57.6 fL (36.4-46.3); Red Blood Count 3.03 M/uL (4.2-5.4); White Blood Count 7.88 K/uL (4.8-10.8)
[2021-04-26 10:08] LABS: Partial Thromboplastin Ratio 1.3
[2021-04-26 10:43] LABS: BUN Creatinine Ratio 11.3 (10-20); Calcium 9.3 mg/dl (8.5-10.1); Creatinine Clr Calc Pharmacy 5.9 ml/min; Est GFR (African American) 4.8 ml/min; Est GFR (Non-African American) 4.1 ml/min; Potassium 4.7 mmol/L (3.5-5.1)
--- NOTE | 2021-04-26 11:30 | Nephrology Progress Note ---
Date of Service April 26, 2021 Assessment & Plan (1) End stage renal failure on dialysis: Plan: ESRD attributed to DKD. HD via [facility] TDC. Jeri had been maintained on a TTS schedule while inpatient. We are anticipating discharge home tomorrow to resume MWF HD at [facility] as outpatient. Orders for HD today have been entered into the EMR and reviewed with the dialysis nurse. A vanco level has been ordered and I contacted the pharmacist to help coordinate vanco post HD today. Multiple episodes of sudden LOC during HD. Extensive work up reviewed. Controlled as an outpatient with low Qb and slow titration. Plan to continue vanco at [facility] resuming prior HD treatment schedule and Rx post discharge. Medications appropriate for kidney dysfunction. HIT ab pending. Avoid heparin with HD due to thrombocytopenia. (2) Diabetic infection of right foot: Plan: Plan to complete 6 weeks of vancomycin from 04/13 with ID follow up. Arrangements have been coordinated with outpatient HD unit. (3) Anemia due to chronic kidney disease: Plan: Epogen provided with HD as inpatient. Resume Micera post discharge. H/H stable. (4) Foot osteomyelitis, right: (5) Type 2 diabetes mellitus: Admission and Anticipated Discharge Date Admission Date: April 14, 2021 Subjective No acute events overnight. No complaints this AM. Review of Systems Review of Systems: All systems reviewed & are unremarkable except as noted in HPI & below Physical Exam Constitutional: well developed; no acute distress Eyes: no scleral abnormality and no corneal abnormality ENMT: Mouth: no oral mucosal abnormality and oral mucous membranes not dry Neck: normal visual inspection and trachea midline Respiratory: normal respiratory effort Auscultation: lungs clear to auscultation bilaterally Cardiovascular: Rate/Rhythm: regular rate Heart Sounds: normal S1 and normal S2 Extremities: + pedal edema Musculoskeletal: Extremities: no cyanosis and no clubbing Skin: normal turgor; no lesions Neurologic: Motor/Sensory: no tremor and no asterixis Psychiatric: Orientation: alert and oriented x 3 Results & Data ([facility]) Vital Signs (Past 12 Hours) Vital Signs Temp Pulse Pulse Resp BP Pulse Ox 04/26/21 11:01 36.7 C 70 18 120/69 96 04/26/21 07:34 36.8 C 63 18 112/70 97 04/26/21 07:06 59 L 04/26/21 04:33 36.5 C 79 18 120/58 L 95 Laboratory Results Laboratory Results - last 24 hr 04/25/21 04/25/21 04/25/21 11:28 16:31 21:26 WBC RBC Hgb Hct MCV MCH MCHC RDW Std Deviation RDW Coeff of Rico Plt Count MPV APTT PTT Ratio Sodium Potassium Chloride Carbon Dioxide Anion Gap BUN Creatinine Est Cr Clr Drug Dosing Est GFR ( Amer) Est GFR (Non-Af Amer) BUN/Creatinine Ratio Glucose POC Glucose 147 H 130 H 225 H Calcium 04/26/21 04/26/21 04/26/21 07:28 09:37 09:37 WBC 7.88 RBC 3.03 L Hgb 9.7 L Hct 30.7 L MCV 101.3 H MCH 32.0 MCHC 31.6 L RDW Std Deviation 57.6 H RDW Coeff of Rico 15.8 H Plt Count 62 L D MPV 11.4 H APTT 35.0 H PTT Ratio 1.3 Sodium Potassium Chloride Carbon Dioxide Anion Gap BUN Creatinine Est Cr Clr Drug Dosing Est GFR ( Amer) Est GFR (Non-Af Amer) BUN/Creatinine Ratio Glucose POC Glucose 88 Calcium 04/26/21 04/26/21 09:37 11:24 WBC RBC Hgb Hct MCV MCH MCHC RDW Std Deviation RDW Coeff of Rico Plt Count MPV APTT PTT Ratio Sodium 135 L Potassium 4.7 Chloride 102 Carbon Dioxide 19 L Anion Gap 14.0 H BUN 103 H Creatinine 9.08 H* D Est Cr Clr Drug Dosing 5.9 Est GFR ( Amer) 4.8 Est GFR (Non-Af Amer) 4.1 BUN/Creatinine Ratio 11.3 Glucose 153 H POC Glucose 158 H Calcium 9.3 PG Care Time/CCT Total # of Minutes Spent Total Time Spent with Patient: Total time spent is greater than 50% in coordination of care (as documented) at patient's floor/unit and/or counseling patient: Coding Level of Care Code 36679 Subseq Hosp Care Lvl 3 Diagnoses End stage renal failure on dialysis N18.6; Z99.2 Diabetic infection of right foot E11.628; L08.9 Anemia due to chronic kidney disease N18.9; D63.1 Foot osteomyelitis, right M86.9 Type 2 diabetes mellitus E11.22; N18.6; Z79.4; Z99.2 Chronic kidney disease stage: on chronic dialysis Diabetes mellitus complication detail: with chronic kidney disease Diabetes mellitus complication status: with kidney complications Diabetes mellitus mcc insulin use: with mcc use (1) Type 2 diabetes mellitus Chronic kidney disease stage: on chronic dialysis Diabetes mellitus complication detail: with chronic kidney disease Diabetes mellitus complication status: with kidney complications 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
--- NOTE | 2021-04-26 14:24 | Pharmacy Report ---
Pharmacy [facility] Short Note - Date of Service April 26, 2021 - Assessment & Plan Assessment 65 year old F receiving Vancomcyin for treatment of osteomyelitis. * Received a call from Dr. Ambrocio today. Patient was to have HD on Monday (04/27) but instead will have HD today (04/26) and be discharged tomorrow. * Random level ordered stat prior to HD today. Plan Vancomycin * Random level was 25.2 mcg/mL * No supplemental vancomycin dose is necessary following dialysis today. * Recommend next random level be drawn prior to next HD session. Would expect patient to require a supplemental dose (500 mg) of Vancomycin following next HD session as outpatient. Pharmacy will continue to follow and will adjust dose/frequency as necessary. Thank you.
[2021-04-26] MEDS: amLODIPine BESYLATE 5 MG TAB PO SCH (20:46)
[2021-04-26] MEDS: GABAPENTIN 100 MG CAP PO SCH (20:47)
[2021-04-26] MEDS: INSULIN GLARGINE SOLOSTAR 100 UNITS/ML 3 ML PEN SQ SCH (20:50)
--- NOTE | 2021-04-26 21:49 | Hospitalist Progress Note ---
Date of Service April 26, 2021 Assessment & Plan (1) Foot osteomyelitis, right: Plan: Present on admission with worsening right foot wound diabetic foot infection Hx history osteomyelitis MRI of right foot showed deep to the skin ulceration within the lateral midfoot there is abnormal marrow signal within the base of the fifth metatarsal which is concerning for an osteomyelitis. Wound cx grew skin carla Blood cultures negative Was started on IV cefepime extended for 2 months once completed antibiotic doxycycline Ortho was consulted recommend nonoperative management-conservative management with IV antibiotic ID was consulted recommended IV Vanco after dialysis for 6 weeks If infection return, will need bone biopsy before starting antibiotic as per ID We will monitor CRP weekly and extending for 2 months after completes IV Vanco Vanco trough level for Osteomyelitis: 15 to 20 mcg/mL Will check random Vanco level Tomorrow AM Pharmacy on board for antibiotic management with vancomycin Continue Daily dressing changes right lateral heel and base of fifth metatarsal ulcerations. Will need outpatient follow-up with wound care clinic Patient would like to go home, not interested in rehab 04/26/21 Vanco random 25 today (goal between 15-20) Had hemodialyzed done today Pharmacy on board to help with vancomycin dosage No supplemental vancomycin given. We will check Vanco random level prior to next hemodialysis Recurrent Syncopal episode Happened 15 mins into her HD session 04/16/21, followed by emesis while unconscious Patient had another event of unresponsiveness last night ( only had 20 minutes dialysis) Stroke Telemedicine consult performed No TPA given since patient, did not meet the criteria Brain MRI: negative MRA head and neck: no abnormalities noted Repeat CT head on 04/22 show no acute intracranial abnormality Neuro on board-no clinical evidence of seizure Echo: mild concentric LVH Cardiology on board-no further cardiac testing needed No focal neuro deficit Will hold Plavix due to low platelet Continue Lipitor Right lower extremity DVT Right jugular vein DVT Doppler of LE showed partial thrombus seen within one of 2 right posterior tibial veins. CTA showed showed Large bore right central venous catheter with evidence for a thrombus within the right jugular vein. Case discussed with vascular surgeon Dr. Darby about the thrombosis around the right IJ catheter. As per vascular surgeon Dr. Darby no plan to exchange the right IJ catheter if the dialysis catheter has been functioning well. Recommended anticoagulation treatment Case discussed with hematology Dr. Duncan Due to her low platelet 4 calculated showed low probabil heat calculated was 3 that showed low probability for HIT Tolerated low-dose heparin. platelet 93 with no sign of bleeding Case discussed with Dr. Duncan today that recommend full dose of Eliquis will transition to Continue Eliquis 10 mg twice daily for 7 days then will continue with 5 mg twice daily Check the gamboa for Eliquis, it will will be $0. Continue to hold Plavix for now We will continue monitor closely for sign of bleeding due to low platelet Thrombocytopenia Platelet improved from 75 to 89 --> 93 --->35-->62 today 4T score calculated showed no probability for HIT HIT ab pending No sign of active bleeding Case discussed with Dr. Nicole that we recommend to monitor platelet level and okay to continue Eliquis for now We will continue to hold hold Plavix on discharge End-stage renal disease HD on Monday and Monday She has a unresponsive event on during dialysis Nephrology on board-Case discussed with nephrology Next hemodialysis scheduled for today Hypertension BP has been fluctuated Continue amlodipine carvedilol and lisinopril continue monitor BP Chronic diastolic heart failure No evidence of volume overload Echo showed ejection fraction 55 to 60% Continue Lasix 40 mg twice daily and carvedilol 12.5 mg twice daily Diabetes type 2 Most recent hemoglobin A1c 6.2 on 04/17 Continue Lantus and insulin sliding scale Continue monitor blood sugar Chronic Anemia Hemoglobin 9.7 today DVT prophylaxis on Eliquis Full code Disposition Possible discharge home tomorrow Admission and Anticipated Discharge Date Admission Date: April 14, 2021 Subjective Patient was seen and examined for follow-up of unresponsive and low platelet count Sitting on the edge of the bed with no acute distress She is very anxious to go home today She said that she feels good Denies any abnormal bleeding, chest pain, palpitation, dizziness, shortness of breath. Review of Systems Review of Systems: All systems reviewed & are unremarkable except as noted in Subjective Physical Exam Physical Exam: General- No acute distress Head- atraumatic Eyes- PERRL, EOMI, ENT- oropharynx clear Neck- supple, no JVD, Right IJ TDC Lungs- clear to auscultation Heart- regular rhythm; no murmur Abdomen- normal bowel sounds, soft, nontender Extremities- no calf tenderness, +wound in right foot cover with dressing, dressing removed to check the wound no pus, dressing mildly wet, healing well Neuro- alert, oriented x 3; PERRL, EOMI; no facial palsy; no dysarthria Skin- warm & dry Results & Data Results & Data ([facility]) Vital Signs (Past 12 Hours) Vital Signs Temp Pulse Pulse Pulse Resp BP BP 04/26/21 20:45 138/66 04/26/21 19:49 36.7 C 74 18 140/69 04/26/21 16:45 74 04/26/21 16:15 37.0 C 68 138/65 04/26/21 16:05 68 135/63 04/26/21 15:40 70 138/68 04/26/21 15:20 69 139/74 04/26/21 15:00 68 134/67 04/26/21 14:40 67 126/65 04/26/21 14:20 63 118/61 04/26/21 14:00 67 112/49 L 04/26/21 13:40 62 118/58 L 04/26/21 13:20 63 123/60 04/26/21 13:05 66 126/58 L 04/26/21 13:00 36.3 C L 65 04/26/21 11:01 36.7 C 70 18 120/69 Pulse Ox 04/26/21 20:45 04/26/21 19:49 97 04/26/21 16:45 04/26/21 16:15 04/26/21 16:05 04/26/21 15:40 04/26/21 15:20 04/26/21 15:00 04/26/21 14:40 04/26/21 14:20 04/26/21 14:00 04/26/21 13:40 04/26/21 13:20 04/26/21 13:05 04/26/21 13:00 04/26/21 11:01 96
[2021-04-26 22:57] LABS: Plt Ab, Heparin Induced Positive (Negative)
[2021-04-27 07:22] LABS: Hematocrit (blood only) 28.1 % (37-47); Hemoglobin 8.8 g/dL (12.0-16.0); Mean Corpuscular Hemoglobin 32.1 pg (25-34); Mean Corpuscular Hgb Conc 31.3 g/dL (32-36); Mean Corpuscular Volume 102.6 fL (80-100); RDW Coefficient of Variation 15.7 % (11.5-14.5); RDW Standard Deviation 58.5 fL (36.4-46.3); Red Blood Count 2.74 M/uL (4.2-5.4); White Blood Count 5.74 K/uL (4.8-10.8)
[2021-04-27 07:33] VITALS: BP 120/72; TEMP 98.4; O2SAT 97
[2021-04-27 08:03] LABS: Basophils # (auto) 0.03 K/uL (0-0.2); Basophils % (auto) 0.5 %; Eosinophils # (auto) 0.36 K/uL (0-0.5); Eosinophils % (auto) 6.3 %; Immature Granulocytes # (auto) 0.01 K/uL (0.00-0.02); Immature Granulocytes % (auto) 0.2 %; Lymphocytes # (auto) 1.12 K/uL (1.2-3.4); Lymphocytes % (auto) 19.5 %; Mean Platelet Volume 11.2 fL (7.4-10.4); Monocytes # (auto) 0.96 K/uL (0.11-0.59); Monocytes % (auto) 16.7 %; Neutrophils # (auto) 3.26 K/uL (1.4-6.5); Neutrophils % (auto) 56.8 %; Platelet Count 66 K/uL (130-400)
[2021-04-27] MEDS: hydrALAZINE HCL 25 MG TAB PO SCH (08:20)
[2021-04-27] MEDS: NEPHROCAPS PO SCH (08:20)
[2021-04-27] MEDS: FUROSEMIDE 40 MG TAB PO SCH (08:20)
[2021-04-27] MEDS: CALCIUM ACETATE 667 MG CAP/TAB PO SCH ×2 (08:20→12:19)
[2021-04-27] MEDS: ATORVASTATIN 40 MG TAB PO SCH (08:20)
[2021-04-27] MEDS: MULTIVITAMIN TAB PO SCH (08:20)
[2021-04-27] MEDS: APIXABAN 5 MG TABLET PO SCH (08:21)
[2021-04-27] MEDS: CHOLECALCIFEROL 1,000 UNITS 25 MCG TAB PO SCH (08:21)
[2021-04-27] MEDS: carvediloL 12.5 MG TAB PO SCH (08:21)
[2021-04-27] MEDS: INSULIN ASPART 100 UNITS/ML 3 ML PEN SC SCH ×2 (08:24→12:18)
[2021-04-27 08:29] LABS: Partial Thromboplastin Ratio 1.4; Partial Thromboplastin Time 36.4 Seconds (21.0-31.0)
[2021-04-27 09:33] VITALS: PULSE 62
--- NOTE | 2021-04-27 12:14 | Nephrology Progress Note ---
Date of Service April 27, 2021 Assessment & Plan (1) End stage renal failure on dialysis: Plan: ESRD attributed to DKD. HD via [facility] TDC. Vanco post HD will be coordinated through the dialysis unit. Multiple episodes of sudden LOC during HD. Extensive work up reviewed. Controlled as an outpatient with low Qb and slow titration. Plan to continue Vanco at [facility] resuming prior HD treatment schedule and Rx post discharge. Medications appropriate for kidney dysfunction. 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 Avoid heparin with HD due to thrombocytopenia. (2) Diabetic infection of right foot: Plan: Plan to complete 6 weeks of vancomycin from 04/13 with ID follow up. Arrangements have been coordinated with outpatient HD unit. (3) Anemia due to chronic kidney disease: Plan: Epogen provided with HD as inpatient. Resume Micera post discharge. H (4) Foot osteomyelitis, right: (5) Type 2 diabetes mellitus: Admission and Anticipated Discharge Date Admission Date: April 14, 2021 Subjective No acute events overnight. No complaints this AM. Looking forward to being discharged home today. Completed HD yesterday without complications. Vanco level was 25 and no supplemental dose was required. Review of Systems Review of Systems: All systems reviewed & are unremarkable except as noted in HPI & below Physical Exam Constitutional: well developed; no acute distress Eyes: no scleral abnormality and no corneal abnormality ENMT: Mouth: no oral mucosal abnormality and oral mucous membranes not dry Neck: normal visual inspection and trachea midline Respiratory: normal respiratory effort Auscultation: lungs clear to auscultation bilaterally Cardiovascular: Rate/Rhythm: regular rate Heart Sounds: normal S1 and normal S2 Extremities: + pedal edema Musculoskeletal: Extremities: no cyanosis and no clubbing Skin: normal turgor; no lesions Neurologic: Motor/Sensory: no tremor and no asterixis Psychiatric: Orientation: alert and oriented x 3 Results & Data ([facility]) Vital Signs (Past 12 Hours) Vital Signs Temp Pulse Pulse Pulse Pulse Pulse Pulse 04/27/21 09:19 36.9 C 65 62 76 68 68 04/27/21 07:33 36.9 C 62 04/27/21 07:10 62 04/27/21 03:13 37.3 C 64 Resp BP Pulse Ox 04/27/21 09:19 16 120/72 97 04/27/21 07:33 16 120/72 97 04/27/21 07:10 04/27/21 03:13 18 112/61 96 Laboratory Results Laboratory Results - last 24 hr 04/23/21 04/26/21 04/26/21 07:02 11:31 16:25 WBC RBC Hgb Hct MCV MCH MCHC RDW Std Deviation RDW Coeff of Rico Plt Count MPV Immature Gran % (Auto) Neut % (Auto) Lymph % (Auto) Edwards % (Auto) Eos % (Auto) Baso % (Auto) Neut # (Auto) Lymph # (Auto) Edwards # (Auto) Eos # (Auto) Baso # (Auto) Immature Gran # (Auto) APTT PTT Ratio POC Glucose 161 H Random Vancomycin 25.2 Heparin Dep Plt Ab React Positive A* Heparin Dep Plt Ab OD 2.549 04/26/21 04/27/21 04/27/21 20:32 06:45 06:45 WBC 5.74 RBC 2.74 L Hgb 8.8 L Hct 28.1 L MCV 102.6 H MCH 32.1 MCHC 31.3 L RDW Std Deviation 58.5 H RDW Coeff of Rico 15.7 H Plt Count 66 L MPV 11.2 H Immature Gran % (Auto) 0.2 Neut % (Auto) 56.8 Lymph % (Auto) 19.5 Edwards % (Auto) 16.7 Eos % (Auto) 6.3 Baso % (Auto) 0.5 Neut # (Auto) 3.26 Lymph # (Auto) 1.12 L Edwards # (Auto) 0.96 H Eos # (Auto) 0.36 Baso # (Auto) 0.03 Immature Gran # (Auto) 0.01 APTT PTT Ratio POC Glucose 194 H Random Vancomycin 18.8 Heparin Dep Plt Ab React Heparin Dep Plt Ab OD 04/27/21 04/27/21 04/27/21 06:45 07:23 07:47 WBC RBC Hgb Hct MCV MCH MCHC RDW Std Deviation RDW Coeff of Rico Plt Count MPV Immature Gran % (Auto) Neut % (Auto) Lymph % (Auto) Edwards % (Auto) Eos % (Auto) Baso % (Auto) Neut # (Auto) Lymph # (Auto) Edwards # (Auto) Eos # (Auto) Baso # (Auto) Immature Gran # (Auto) APTT Cancelled 36.4 H PTT Ratio Cancelled 1.4 POC Glucose 80 Random Vancomycin Heparin Dep Plt Ab React Heparin Dep Plt Ab OD 04/27/21 11:29 WBC RBC Hgb Hct MCV MCH MCHC RDW Std Deviation RDW Coeff of Rico Plt Count MPV Immature Gran % (Auto) Neut % (Auto) Lymph % (Auto) Edwards % (Auto) Eos % (Auto) Baso % (Auto) Neut # (Auto) Lymph # (Auto) Edwards # (Auto) Eos # (Auto) Baso # (Auto) Immature Gran # (Auto) APTT PTT Ratio POC Glucose 106 H Random Vancomycin Heparin Dep Plt Ab React Heparin Dep Plt Ab OD PG Care Time/CCT Total # of Minutes Spent Total Time Spent with Patient: Total time spent is greater than 50% in coordination of care (as documented) at patient's floor/unit and/or counseling patient: Coding Level of Care Code 65282 Subseq Hosp Care Lvl 3 Diagnoses End stage renal failure on dialysis N18.6; Z99.2 Diabetic infection of right foot E11.628; L08.9 Anemia due to chronic kidney disease N18.9; D63.1 Foot osteomyelitis, right M86.9 Type 2 diabetes mellitus E11.22; N18.6; Z79.4; Z99.2 Chronic kidney disease stage: on chronic dialysis Diabetes mellitus complication detail: with chronic kidney disease Diabetes mellitus complication status: with kidney complications 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
--- NOTE | 2021-04-28 08:26 | Discharge Summary ---
Date of Service April 28, 2021 Admission HPI Per Admitting Provider History obtained from patient and records. Patient is a fair historian. Medical history significant for chronic diastolic heart failure (EF 55 to 60%, TTE 2020), ESRD on HD, DM 2 insulin requiring, chronic anemia (baseline hemoglobin 8-9), chronic right foot wound/history osteomyelitis status post daptomycin Rx as per records. Last confinement January 2021 for syncope during dialysis attributed to hypotension. Patient noted to have new wounds on the right foot the last few weeks as per records Patient unable to answer if wound on same spot as past wound from 2 years ago requiring antibiotic Rx for osteomyelitis. Patient denies chest pain, S OB, headache, fever, chills. Patient sent to ER for worsening right foot wound. IV vancomycin given at the ER. Medical History as above Hemodialysis Monday Surgical History : D&C, laser trabeculoplasty, cataract surgeries, vascular procedures Family History : Ovarian cancer, DM, heart disease, stroke Personal/Social history : Non-smoker, no EtOH intake, disabled Admission Exam Per Admitting Provider GENERAL: Comfortable, pleasant, somewhat apathetic, obese, no respiratory distress SKIN: Sallow , warm HEENT: Pale palpebral conjunctivae, no ptosis, dry buccal mucosa NECK : Supple, short neck, no tenderness CHEST : CTA, no tenderness HEART : RRR, no obvious murmurs ABDOMEN: Some distention, nontender EXTREMITIES : Right foot swelling, ulcerated wound lateral aspect of right foot with scant drainage, minimal LE swelling without tenderness. NEUROLOGIC : Coherent, no facial asymmetry, no other gross focality Principal Diagnosis Foot osteomyelitis, right: Recurrent Syncopal episode Right lower extremity DVT Right jugular vein DVT Thrombocytopenia End-stage renal disease Hypertension Chronic diastolic heart failure Chronic Anemia Discharge Exam General- No acute distress Head- atraumatic Eyes- PERRL, EOMI, ENT- oropharynx clear Neck- supple, no JVD, Right IJ TDC Lungs- clear to auscultation Heart- regular rhythm; no murmur Abdomen- normal bowel sounds, soft, nontender Extremities- no calf tenderness, +wound in right foot cover with dressing, dressing removed to check the wound no pus, dressing mildly wet, healing well Neuro- alert, oriented x 3; PERRL, EOMI; no facial palsy; no dysarthria Skin- warm & dry Discharge Data Allergies Allergy/AdvReac Type Severity Reaction Status Date / Time daptomycin AdvReac sob Verified 04/13/21 21:45 Consultations 04/13/21 22:18 ED Decision to Admit Stat 04/14/21 04:39 Consult Nephrology Routine Consult Orthopedic Surgery Routine 04/17/21 14:57 Consult Infectious Diseases Routine 04/17/21 14:58 Consult Neurology Routine 04/19/21 09:39 Consult Cardiology Routine Ordered Studies 04/14/21 14:19 MR foot RT w/o con Routine 04/16/21 10:29 CT head/brain wo con Stat 04/16/21 19:14 MR angio neck wo con Routine 04/16/21 19:14 MR angio head wo con Routine MR brain wo con Routine 04/22/21 22:31 CT head/brain wo con Urgent 04/23/21 01:08 CT angio chest PE protocol Urgent 04/23/21 04:06 US venous doppler LE BI Urgent BILATERAL LOWER EXTREMITY VENOUS DOPPLER HISTORY: Abnormal chest CT. Assess for DVT. COMPARISON STUDY: Chest CTA 04/23/2021. FINDINGS: There is a broken flow within one of 2 right posterior tibial veins which are noncompressible. This likely represents partial thrombus. Remaining right lower extremity deep venous structures are patent. No DVT within the left lower extremity. IMPRESSION: 1. Partial thrombus seen within one of 2 right posterior tibial veins. 2. No DVT within the left lower extremity. ACT 112: Negative or not required by law. Electronically signed by: Duane Baeza M.D. 04/23/2021 7:20 AM Dictated:04/23/21717 Transcribed: 04/23/21717 CT angio chest PE protocol CLINICAL HISTORY: sob, trop elev . Evaluate for pulmonary embolus COMPARISON STUDY: CTA chest from 01/18/2021 and portable chest from 04/22/2021 CT DOSE: 393.51 mGy.cm TECHNIQUE: CT Angio of the chest was performed.followed by image post processing with coronal, and sagittal MIP reformats. Contrast Volume: Optiray 320, 119 ml FINDINGS: Vasculature: There is homogeneous perfusion of the pulmonary vasculature bilaterally. No intraluminal filling defects or evidence for pulmonary embolus is seen. There is a large bore central venous catheter present on the right with evidence for a thrombus within the right jugular vein. Airway: The airway is clear. No endobronchial lesion is identified. Lungs: The lungs are clear of acute alveolar opacities, air bronchograms or pulmonary nodules. Pleura: There is no evidence for pleural effusion. There is no evidence for pneumothorax. Mediastinum: There is no evidence for pathologic adenopathy. The heart size is within normal limits. The thoracic aorta is within normal limits. There is no evidence for pericardial effusion. Upper abdomen:There is a 1.4 cm low-attenuation left adrenal nodule characteristic of an adenoma. The right adrenal gland is normal. There is a small sliding-type hiatal hernia. Osseous structures: There is no acute osseous pathology. Impression: 1. No CTA evidence for pulmonary embolus. 2. No acute chest disease. 3. Large bore right central venous catheter with evidence for a thrombus within the right jugular vein. 4. Additional nonacute findings are delineated above. ACT 112: Negative or not required by law. Electronically signed by: Pj Moura M.D. 04/23/2021 7:48 AM Dictated:04/23/21742 Transcribed: 04/23/21742 CT head/brain wo con CLINICAL HISTORY: ams, low platelets COMPARISON STUDY: 04/16/2021 CT DOSE: 687.98 mGy.cm TECHNIQUE: Standard CT of the Brain was performed without IV contrast. A dose lowering technique was utilized adhering to the principles of ALARA. FINDINGS: Extraaxial space: There is no evidence for subdural hematoma. There are no extra-axial fluid collections. Ventricles and cisterns: The ventricles are normal in size and configuration. There is no evidence for midline shift or mass effect. Parenchyma: There is no subarachnoid or intraparenchymal hemorrhage. There is no evidence for an acute infarct or cerebral edema. There is homogeneous attenuation of the brain parenchyma. There are no gross mass lesions. Osseous structures: There is no evidence for an acute fracture. The visualized paranasal sinuses are clear. The mastoid air cells are clear bilaterally. Soft tissues: There is no evidence for focal soft tissue swelling. IMPRESSION: No acute intracerebral pathology. There is no significant interval change. ACT 112: Negative or not required by law. Electronically signed by: Pj Moura M.D. 04/23/2021 7:09 AM Dictated:04/23/21707 Transcribed: 04/23/21707 XR chest 1V portable HISTORY: Shortness of breath. COMPARISON: Chest 04/16/2021. FINDINGS: No pneumothorax. No pleural fusions. The heart remains mildly enlarged. Calcified granuloma within the right upper lobe persists. Right jugular catheter terminates at the distal SVC. No new focal lung consolidations to suggest pneumonia. There is mild central pulmonary vascular congestion without overt edema. IMPRESSION: Cardiomegaly with mild central pulmonary vascular congestion without overt edema. ACT 112: Negative or not required by law. Electronically signed by: Duane Baeza M.D. 04/23/2021 7:47 AM Dictated:04/23/2145 Transcribed: 04/23/21744 MR angio neck wo con CLINICAL HISTORY: syncope, L eye visual deficit, evaluate for cva COMPARISON STUDY: No previous studies for comparison. TECHNIQUE: Noncontrast CT Angio of the neck was performed.followed by image post processing with coronal, and sagittal MIP reformats.. Stenosis assessment by NASCET criteria. Contrast Volume: None FINDINGS: This study is limited by lack of intravenous contrast. Vascular findings: Right common carotid artery: Patent without significant stenosis. Right internal carotid artery: Patent without significant stenosis. Right vertebral artery: Not seen Left common carotid artery: Patent without significant stenosis. Left internal carotid artery: Patent without significant stenosis. Left vertebral artery: Not seen Nonvascular findings: Poorly imaged Impression: Grossly limited examination due to lack of intravenous contrast. No gross evidence for stenosis is seen. ACT 112: Negative or not required by law. Electronically signed by: Pj Moura M.D. 04/16/2021 9:25 PM Dictated:04/16/212118 Transcribed: 04/16/212118 MR angio head wo con CLINICAL HISTORY: syncope, L eye visual deficit, evaluate for cva. COMPARISON: CT brain without contrast and MRI of the brain from 04/16/2021 TECHNIQUE: 3-D time of flight MR angiographic images of the brain were also obtained without IV contrast. FINDINGS: Posterior circulation: Both vertebral arteries, the basilar artery, and both posterior cerebral arteries are patent. Anterior circulation: Both internal carotid arteries are patent. The anterior cerebral and middle cerebral arteries are patent bilaterally. No arterial occlusion, hemodynamically significant stenosis, aneurysm, or vascular malformation is seen. IMPRESSION: Normal MRA of the cerebral circulation for the patient's age. ACT 112: Negative or not required by law. Electronically signed by: Pj Moura M.D. 04/16/2021 9:19 PM Dictated:04/16/212115 Transcribed: 04/16/212115 MR brain wo con CLINICAL HISTORY: Febrile episode while undergoing dialysis.. Evaluate for CVA. COMPARISON STUDY: CT brain without contrast 04/16/2021 TECHNIQUE: Multiplanar multisequence images of the Brain were performed without IV contrast. Diffusion weighted imaging and ADC mapping was also performed. FINDINGS: Extra-axial space: There is no evidence for a subdural hematoma, There are no extra-axial fluid collections. Ventricles and cisterns: The ventricles are normal in size and configuration. There is no evidence for midline shift or mass effect. Parenchyma: There is no evidence for an acute hemorrhage or infarct. No acute diffusion abnormalities are noted on diffusion weighted imaging or ADC mapping. There is normal matthews-white differentiation. The sulci and gyri appear normal without effacement. The midline structures are unremarkable. The posterior fossa structures appear normal. There is no evidence for mass lesion. Incidental note is made of an empty sella. Osseous structures: The paranasal sinuses are well aerated. There is mucosal thickening involving the mastoid air cells bilaterally, left greater than right. Soft tissues: No focal soft tissue abnormalities are identified. IMPRESSION: No acute intracranial abnormalities. Bilateral mastoiditis. ACT 112: Negative or not required by law. Electronically signed by: Pj Moura M.D. 04/16/2021 8:46 PM Dictated:04/16/212040 Transcribed: 04/16/212040 CT head/brain wo con CLINICAL HISTORY: 65 years-old Female with r/o CVA. Acutely altered mental status with strokelike symptoms TECHNIQUE: Multiple axial CT images of the head were obtained without contrast. A dose lowering technique was utilized adhering to the principles of ALARA. CT DOSE: 537.48 mGy.cm COMPARISON: Head CT 01/18/2021 FINDINGS: No acute intracranial hemorrhage, midline shift, intracranial mass, hydrocephalus, territorial ischemia or abnormal extra-axial collection. The calvarium is intact. The paranasal sinuses, mastoid air cells, and middle ear cavities are clear. IMPRESSION: No acute intracranial abnormality. ACT 112: Negative or not required by law. The above report was generated using voice recognition software. It may contain grammatical, syntax or spelling errors. Electronically signed by: Jesus Glass M.D. 04/16/2021 10:39 AM Dictated:04/16/21 1037 Transcribed: 04/16/21 1037 XR chest 1V portable HISTORY: 65 years-old Female hypoxia, r/o aspiration acute hypoxia. COMPARISON: Chest radiograph 01/18/2021 TECHNIQUE: Portable AP view the chest FINDINGS: The cardiac silhouette is mildly enlarged. Pulmonary vascular congestion. No pneumothorax or large pleural effusion. Trace pleural effusions. Right IJ dual- lumen hemodialysis catheter distal tip projects over the superior cavoatrial junction. Degenerative changes of the shoulders and spine. IMPRESSION: 1. Cardiomegaly with pulmonary vascular congestion. 2. Trace pleural effusions. 3. Right IJ hemodialysis catheter in stable positioning. ACT 112: Negative or not required by law. The above report was generated using voice recognition software. It may contain grammatical, syntax or spelling errors. Electronically signed by: Jesus Glass M.D. 04/16/2021 10:59 AM Dictated:04/16/21 1058 Transcribed: 04/16/21 1058 MR foot RT w/o con HISTORY: Right foot skin ulcer. Right lateral foot pain. r/o osteomyelitis 5th metatarsal TECHNIQUE: Multiplanar multisequence MRI of the right forefoot was performed without contrast according to standard departmental protocol. COMPARISON STUDY: Right foot radiograph 04/13/2021. FINDINGS: There is mild dorsal subcutaneous edema within the forefoot. There is also edema within the plantar muscles of the foot. This is nonspecific but could represent denervation injury. No definite fracture or dislocation within the visualized foot. The Lisfranc joint appears aligned. Focal subcutaneous edema within the plantar aspect of the lateral foot at the level of the base of the fifth metatarsal. There appears to be a focal skin ulceration at this location. Deep to the skin ulceration there is abnormal T2 hyperintense, T1 hypointense signal within the proximal fifth metatarsal. Therefore, these findings are concerning for an osteomyelitis. This is suboptimally assessed due to the motion artifact at this location. IMPRESSION: 1. Deep to the skin ulceration within the lateral midfoot there is abnormal marrow signal within the base of the fifth metatarsal which is concerning for an osteomyelitis. This is suboptimally assessed due to the motion artifact. 2. No fracture or dislocation within the forefoot. 3. Edema within the plantar muscles which may represent denervation injury. ACT 112: Negative or not required by law. Electronically signed by: Duane Baeza M.D. 04/15/2021 8:30 AM Dictated:04/15/21824 Transcribed: 04/15/21824 XR foot RT min 3V routine HISTORY: 65 years-old Female wound acute pain of the right foot with reported soft tissue wound COMPARISON: Right ankle radiographs 05/13/2019 TECHNIQUE: 3 views of the right foot FINDINGS: Diffuse soft tissue prominence. Demineralized appearance the bones. Multifocal osteoarthritis is predominantly mild. 2 cannulated screws of the medial malleolus are noted in addition to plate and screw fusion hardware of the distal fibula. There is a suggested 2.3 cm soft tissue ulcer lateral to the base of the fifth metatarsal. No osseous erosions identified. IMPRESSION: 1. Diffuse soft tissue swelling with skin ulcer lateral to the base of the fifth metatarsal. 2. No acute fracture, dislocation or osseous erosion. ACT 112: Negative or not required by law. The above report was generated using voice recognition software. It may contain grammatical, syntax or spelling errors. Electronically signed by: Jesus Glass M.D. 04/13/2021 8:09 PM Dictated:04/13/212005 Transcribed: 04/13/212005 Diabetes Follow up Diabetes Follow-up Needed for Newly Diagnosed Diabetes Hospital Course (1) Foot osteomyelitis, right: Present on admission with worsening right foot wound diabetic foot infection Hx history osteomyelitis MRI of right foot showed deep to the skin ulceration within the lateral midfoot there is abnormal marrow signal within the base of the fifth metatarsal which is concerning for an osteomyelitis. Wound cx grew skin carla Blood cultures negative Was started on IV cefepime extended for 2 months once completed antibiotic doxycycline Ortho was consulted recommend nonoperative management-conservative management with IV antibiotic ID was consulted recommended IV Vanco after dialysis for 6 weeks If infection return, will need bone biopsy before starting antibiotic as per ID We will monitor CRP weekly and extending for 2 months after completes IV Vanco Vanco trough level for Osteomyelitis: 15 to 20 mcg/mL Will check random Vanco level Tomorrow AM Pharmacy on board for antibiotic management with vancomycin Continue Daily dressing changes right lateral heel and base of fifth metatarsal ulcerations. Will need outpatient follow-up with wound care clinic Patient would like to go home, not interested in rehab 04/27/21 Vanco random 18.8 today (goal between 15-20) Had hemodialyzed done yesterday Pharmacy on board to help with vancomycin dosage No supplemental vancomycin given, will give Vanco 500mg IV tomorrow (04/28) after HD We will check Vanco random level prior to next hemodialysis on Monday and dose IV vanco according to the Vanco trough level Case discussed with te pharmacy at [facility] about the vanco infusion and Vanco trough level We will monitor CRP weekly and extending for 2 months after completes IV Vanco Follow up with ID and Ortho for the right foot infection Recurrent Syncopal episode Happened 15 mins into her HD session 04/16/21, followed by emesis while unconscious Patient had another event of unresponsiveness last night ( only had 20 minutes dialysis) Stroke Telemedicine consult performed No TPA given since patient, did not meet the criteria Brain MRI: negative MRA head and neck: no abnormalities noted Repeat CT head on 04/22 show no acute intracranial abnormality Neuro on board-no clinical evidence of seizure Echo: mild concentric LVH Cardiology on board-no further cardiac testing needed No focal neuro deficit Will hold Plavix due to low platelet Continue Lipitor Right lower extremity DVT Right jugular vein DVT Doppler of LE showed partial thrombus seen within one of 2 right posterior tibial veins. CTA showed showed Large bore right central venous catheter with evidence for a thrombus within the right jugular vein. Case discussed with vascular surgeon Dr. Darby about the thrombosis around the right IJ catheter. As per vascular surgeon Dr. Darby no plan to exchange the right IJ catheter if the dialysis catheter has been functioning well. Recommended anticoagulation treatment Case discussed with hematology Dr. Duncan Due to her low platelet 4 calculated showed low probabil heat calculated was 3 that showed low probability for HIT Tolerated low-dose heparin. platelet 93 with no sign of bleeding Case discussed with Dr. Duncan today that recommend full dose of Eliquis will transition to Continue Eliquis 10 mg twice daily for 7 days then will continue with 5 mg twice daily Check the gamboa for Eliquis, it will will be $0. Continue to hold Plavix for now We will continue monitor closely for sign of bleeding due to low platelet Thrombocytopenia Platelet improved from 75 to 89 --> 93 --->35-->62 today 4T score calculated showed no probability for HIT HIT ab pending No sign of active bleeding Case discussed with Dr. Nicole that we recommend to monitor platelet level and okay to continue Eliquis for now We will continue to hold hold Plavix on discharge End-stage renal disease HD on Monday and Monday She has a unresponsive event on during dialysis Nephrology on board-Case discussed with nephrology Next hemodialysis scheduled for today Hypertension BP has been fluctuated Continue amlodipine carvedilol and lisinopril continue monitor BP Chronic diastolic heart failure No evidence of volume overload Echo showed ejection fraction 55 to 60% Continue Lasix 40 mg twice daily and carvedilol 12.5 mg twice daily Diabetes type 2 Most recent hemoglobin A1c 6.2 on 04/17 Continue Lantus and insulin sliding scale Continue monitor blood sugar Chronic Anemia Hemoglobin 8.8 Check CBC in 1 week DVT prophylaxis on Eliquis Full code Disposition Possible discharge home today Total Time Total Time Spent Total Time Spent (In Minutes): 40 minutes Discharge Plan Discharge Items Patient Disposition: Home - Home Health Services Reason For Visit: HTN URG, DM FOOT WOUND Discharge Diagnosis: Foot osteomyelitis, right: Recurrent Syncopal episode Right lower extremity DVT Right jugular vein DVT Thrombocytopenia End-stage renal disease Hypertension Chronic diastolic heart failure Chronic Anemia Activity: Resume your previous activity Non-emergency contact: Primary Care Provider Call non-emergency contact if: you have any medication questions Follow-up/Referrals: Melissa Bronson DO [Primary Care Provider] - (Date & Time 04/29/2021 11:10 AM Provider Melissa Bronson DO Department [facility] ) Jeanette Song MD [Physician] - (Date & Time 06/09/2021 2:40 PM Provider Jeanette Song MD Department Infectious Disease [facility] ) Diet: Carb Consistent or DM2 and Dialysis Renal Addtl Attending Provider Instructions: Follow up with your primary care provider Dr. Melissa Bronson DO Department 04/29/2021 11:10 AM [facility] Follow up with infectious disease Dr. Jeanette Song 06/09/2021 2:40 PM Provider Jeanette Song MD Infectious Disease [facility] Follow up with orthopedic dr Acharya for the right foot osteomyelitis Continue daily wound care and follow up with wound care Check Vancomycin trough on Monday04/30/21 before dialysis, then before each dialysis moving forward (Goal Vanco trough level 15 to 20) Vancomycin 500mg IV to be given on 04/28 after dialysis Subsequent Vancomycin dose, will be given after dialysis according to the Vanco trough level Check CRP weekly, then once completes IV Vanco continue to check CRP weekly for 2 months Check CBC on 04/30 in dialysis to monitor your platelet and hemoglobin level ( Please forward result to the primary care provider Monitor for any sign of bleeding and notify your physician for any bleeding Please hold Plavix for now while on eliquis due to low platelet with increasing risk of bleeding Continue Nonweightbearing right lower extremity Fall precaution Medication Instructions: Your condition is typically treated with an anticoagulant. Anticoagulants will thin your blood to help prevent new clots. You should take her medication exactly as directed. Never skip a dose. Never take a double dose. If you miss a dose, take it as soon as you remember. Avoid NSAIDs (Motrin, Aleve, Naproxen, Ibuprofen, Advil, Meloxicam ,..) due to risks of bleeding Call your Primary Care doctor if you experience any of the following: Swelling or Pain in your leg Sudden, continuous pain deep in a muscle Pain that worsens when you are active or when you stand still for a long time Chest Pain Sudden Shortness of Breath Rapid or pounding heart beat Fainting Dizziness Cough with blood or bloody sputum Sweating more than normal Bruises Heavy or uncontrolled bleeding Blood in your urine, stool or vomit Black or tarry stools Caring for Your Self at Home: Avoid sitting, standing or lying down for long periods without moving your legs and feet When traveling by car, stop to get out and move around at least once every 3 hours On long airplane, train or bus rides, get up and move around when possible If you can't get up, wiggle your toes and tighten your calves to keep your blood moving Follow Up: It is important for you to keep your follow up appointments with your medical provider. Pending Studies at Discharge: No Stand-Alone Forms: My [employer], Smoking Cessation Medications and DC Order Prescriptions: New Eliquis 5 mg tablet 5 mg PO UD Qty: 68 RF: 0 atorvastatin 40 mg Tablet 40 mg PO QAM Qty: 30 RF: 0 vancomycin 500 mg recon soln 500 mg IV UD Qty: 1 RF: 0 Continued cholecalciferol (vitamin D3) [Vitamin D3] 2,000 unit Capsule 4,000 unit PO QAM RF: 0 furosemide 40 mg tablet 40 mg PO BID RF: 0 coenzyme Q10 [Co Q-10] 100 mg Capsule 100 mg PO QAM RF: 0 calcium acetate(phosphat bind) 667 mg Capsule 667 mg PO TIDM Qty: 90 RF: 0 Renal Caps 1 mg Capsule 1 cap PO QAM Qty: 90 RF: 0 multivitamin Tablet 1 tab PO QAM RF: 0 Basaglar KwikPen U-100 Insulin 100 unit/mL (3 mL) insulin pen 30 unit SUBCUT HS RF: 0 amlodipine [Norvasc] 5 mg Tablet 10 mg PO HS Qty: 60 RF: 0 hydralazine 25 mg tablet 25 mg PO TID Qty: 90 RF: 0 carvedilol 12.5 mg Tablet 12.5 mg PO BID Qty: 60 RF: 0 Discontinued clopidogrel 75 mg tablet 75 mg PO DAILY RF: 0 Discharge Orders: Discharge Order (Routine); Ordered 04/27/21 Ordered By: Martine Miranda/Other Patient Handouts: Managing Type 2 Diabetes Admission Data Admit Date/Time: 04/14/21 04:04 Attending Provider: Martine Christopher Admit Provider: Russ Wells Primary Care Provider: Melissa Bronson Other Providers: Emmanuel Horton ; Russ Wells ; Margaret Tejada ; Pedro Clark ; Familia Gar ; Mary Penn Kevin C. ; Dennis Duran ; Artem Acharya ; Efrem Diego ; Christiane Forbes Thomas J ; Qing Padilla ; Frederic Griffin ; Can Zimmer ; Jose Devi Andrew J. ; Can Villalobos ; Bala Stephenson ; Martin Crews ; Xu Cary ; Osvaldo Martínez ; Qing Garay ; Shaheen Mathews ; Walter Angulo ; Gertrude Morgan ; Edson Johnson ; Anne Altamirano ; Jesus Chin ; Cruz Ardon ; Jeanette Song ; Ethan Tejada I. ; Vinod Carrion II ; Esther Martinez ; Jose Peres ; Esdras Smith ; Saul Churchill ; Bala Henry ; [facility] ; [facility] Other Interventions: Discharge Summary Assessment (RN) Last Done: 04/27/21 09:19
== END 2021-04-27 14:35 | disposition home health service (06) | DRG 638 ==
LOC: ED 15:00 → SUATTDRO 04-14 04:04 → EDINP 04-14 04:04 → 3W 04-15 04:55 → 2N 04-16 18:51

== ENCOUNTER 2021-10-14 13:38 | Inpatient (IN) ==
--- NOTE | 2021-10-14 14:13 | Emergency Department Note ---
Impression & Plan Cellulitis of foot, right, End stage renal failure on dialysis, Diabetic infection of right foot ED Provider Note Provider: Rian Adan MD DATE OF SERVICE: 10/14/2021 CHIEF COMPLAINT: Right foot infection HISTORY OF PRESENT ILLNESS: Patient is a 66-year-old female with a history of diabetes, diabetic foot ulcer and osteomyelitis, CVA, diabetic neuropathy, hypertension and end-stage renal disease on Monday dialysis presenting today referred by her outpatient doctors clinic. Patient for just over a week is noted some redness on the top of her right foot. Spreading r edness over the foot into the ankle and lower leg today. Seen approximately a week ago in the clinic and started on Keflex and things have worsened. Denies significant systemic symptoms of fever or chills. Denies any trauma. History of osteo and this foot but that wound is more lateral. Has neuropathy and denies significant pain at this time. Patient history of anticoagulation. REVIEW OF SYSTEMS: A total of 10 review of systems was obtained and negative except as stated above in the HPI. PAST MEDICAL HISTORY: As noted above MEDICATIONS: Reviewed home medications SOCIAL HISTORY: Denies smoking PHYSICAL EXAM: GENERAL: alert and oriented in no acute distress on stretcher Head: normocephalic and atraumatic EYES: No injection, discharge or icterus. NECK: Trachea midline. ENT: Mucous membranes pink and moist. LUNGS: Airway patent. No retractions or tachypnea noted HEART: Regular rate and rhythm. No chest wall tenderness with a right upper chest port in place. ABDOMEN: Soft and non-tender, without guarding or rebound. SKIN: Acyanotic, warm, dry, without rashes EXTREMITIES: Trace edema of the lower extremities. The right lower extremity has healed medial and lateral ankle surgical scar wounds without evidence of dehiscence. There is some slight inversion to the right foot with some diffuse erythema from the toes to just above the ankle. No crepitus. Very faint DP pulse appreciated here. Some dry skin as well as some redness and slight yellowness the top of the second third and fourth MTP region. Significant tenderness but with neuropathy of the lower extremities. NEUROLOGICAL: No aphasia. No facial droop or slurred speech. Some decrease sensation she states is stable in the bilateral lower extremities. Some decreased dexterity and fluency of the left upper extremity she states has been present since a failed AV fistula. Patient's laboratory studies and imaging reviewed. Differential includes Cellulitis, abscess, MRSA infection, DVT, necrotizing fasciitis, dermatitis, drug eruption, allergic reaction, as well as other pathologies. IMPRESSION/MEDICAL DECISION MAKING: Reviewed prior medical record and home meds. Failed Keflex. History of diabetes and significant infection in his foot. Culture from outpatient wound growing Staphylococcus coag negative last week. History of 6 weeks of vancomycin several months ago for osteo in the right foot. Basic labs and cultures were obtained. Surface culture from a trace amount of discharge at the top of the right toes was obtained. Area was cleaned by myself. Spreading diffuse erythema here but no crepitus. Doubt sepsis. Doubt necrotizing fasciitis. Well without leukocytosis however ESR and CRP are higher than they have ever been in the past when she has had osteomyelitis. No lactate elevation. Again I doubt sepsis. Patient with chronic disease with ESRD but no severe electrolyte abnormality. Given the patient's risk factors with her diabetes and poor vascular flow and fa iled outpatient Keflex have concerns for possible deeper infection. History of osteo in the foot. Discussed with the patient given failure to improve on Keflex would recommend continued observation here on a trial of IV antibiotics. Wound culture sent from the top of the foot today although unsure if I did get a great sample. Doubt necrotizing fasciitis. Patient does not appear septic. Reviewing prior notes it indicates if concern for osteo-ID had recommended a bone biopsy before antibiotics being administered. DIAGNOSIS: Right lower extremity cellulitis DISPOSITION: Hospitalist will evaluate Patient was agreeable with this plan. Past Med/Surg History Medical History AV fistula left arm Chronic anemia Chronic diastolic CHF (congestive heart failure) EF 55-60% per 03/2021 ECHO Deep vein thrombosis LEG + ARM *DX DECEMBER 2020 (REASON FOR ELIQUIS) Diabetes mellitus, type 2 Hgb A1C 6.2 on 04/17/21 Diabetic neuropathy Diabetic retinopathy HAS HAD INJECTIONS TO RELEASE PRESSURE/BLEEDING Dialysis patient M/W/F ([place]) USING SUBCLAVIAN PORT? *"NEAR NECK AREA WITH 2 LINES" Dyslipidemia End stage renal failure on dialysis History of CVA (cerebrovascular accident) Found incidentally on November 2020 brain MRI- started on ASA and Plavix History of depression Hx of diabetic foot ulcer "ALL HEALED" Hx of osteomyelitis RT FOOT Hypertension Mild depression On home oxygen therapy CURRENTLY NOT USING/WAS USING WITH ACTIVTY BUT CURRENTLY IN WC Posterior capsular opacification Syncope and collapse - Syncope vs possible cardiac arrest initially when admitted to [facility] 12/2020 (had similar admissions in November 2020- felt hypotension during dialysis) - Per 01/24/21 Discharge Summary- episode occurred during dialysis- pt was unresponsive and cyanotic- chest compressions done - During hospital stay troponins trended but felt secondary to renal disease and recent chest compressions (AED applied with no shock indicated- per cardio consult- suggesting loss of consciousness and not secondary to VT or VF) -Considering transient hypotension from fluid shifts during HD sessions have contributed to unresponsive episodes- made decision to hold all meds prior to dialysis -Per cardio consult 01/23/21- possibly related to volume shifts- stress test negative in November; recent EKG and ECHO did not suggest acute ischemia event. Telemetry on admission without arrhythmias -Pt admitted 04/2021 for DM ulcer/osteomyelitis- per 04/27/21 discharge- pt had recurrent syncope after dialysis 04/16/21 (neuro imaging showed no issues, cardio felt no further testing necessary) Surgical History History of ankle surgery RT (HARDWARE INTACT) History of appendectomy History of cataract surgery RT/LEFT History of dilatation and curettage History of esophagogastroduodenoscopy (EGD) History of surgery Left arm AVF creation (08/24/21): MAC at [facility] Family History Sister Ovarian cancer Brother Hypertension Family history of diabetes mellitus Other No family history of adverse response to anesthesia Social History Smoking Status: Never smoker Second Hand Exposure: No; Hx Alcohol Use: No Hx Substance Use: No Preferred Language: Slovak 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: Effective Felt Hanger Required: No Beliefs That Will Affect Care: None marital status: Current Living Situation: Alone Current Living Situation Comment: handicap accessible appartment per patient current occupational status: retired How many Children do You have: 1 Feels Safe at Home: Yes Diet Comment: stated low salt, low carb during the past year weight has: increased > 10 lbs Assistive Devices: Glasses and Walker Allergies Allergies Allergy/AdvReac Type Severity Reaction Status Date / Time daptomycin AdvReac Intermediate Difficulty Verified 10/14/21 16:55 Breathing Home Meds Home Medications Medication Instructions Recorded Confirmed cholecalciferol (vitamin D3) 50 2,000 unit PO QAM 07/07/18 10/14/21 mcg (2,000 unit) capsule (Vitamin D3) coenzyme Q10 100 mg capsule (Co 100 mg PO QAM 11/18/20 10/14/21 Q-10) furosemide 40 mg tablet 40 mg PO BID 11/18/20 10/14/21 multivitamin 1 tab PO QAM 11/27/20 10/14/21 insulin glargine 100 unit/mL (3 30 unit SUBCUT QAM 01/18/21 10/14/21 mL) subcutaneous pen (Basaglar KwikPen U-100 Insulin) gabapentin 100 mg capsule 100 mg PO HS 07/29/21 10/14/21 (Neurontin) apixaban 5 mg tablet (Eliquis) 5 mg PO BID 08/02/21 10/14/21 zinc 10 mg tablet 10 mg PO DAILY 08/24/21 10/14/21 calcium acetate(phosphat bind) 667 1,334 mg PO BIDM 10/14/21 10/14/21 mg capsule dorzolamide 22.3 mg-timolol 6.8 1 drp OPHTHALMIC (EYE) BID 10/14/21 10/14/21 mg/mL eye drops sucroferric oxyhydroxide 500 mg 500 mg PO .QSUPPER 10/14/21 10/14/21 chewable tablet (Velphoro) Previous Rx's Medication Instructions Recorded vitamin B complex and vitamin C 1 cap PO QAM #90 cap 11/24/20 no.20-folic acid 1 mg capsule (Renal Caps) hydralazine 25 mg tablet 25 mg PO TID #90 tab 01/23/21 carvedilol 12.5 mg tablet 12.5 mg PO BID #60 tab 01/24/21 atorvastatin 40 mg tablet 40 mg PO QAM #30 tab 04/27/21 Results & Data (ED) Vital Signs Vital Signs - 24 hr 10/14/21 13:40 10/14/21 16:00 10/14/21 17:30 Temperature 36.5 C Temperature Source Oral Pulse Rate 76 Pulse Rate [Apical] 75 73 Pulse Rhythm [Apical] Regular Pulse Strength [Apical] Normal Respiratory Rate 18 18 20 Respiratory Effort / Characteristics Non-Labored Spontaneous Non-Labored Spontaneous Respiratory Depth Normal Normal Normal Respiratory Pattern Regular Regular Blood Pressure 187/93 H Blood Pressure [Right Arm] 162/67 H 199/119 H Blood Pressure Mean 124 Blood Pressure Mean [Right Arm] 98 145 Blood Pressure Position Sitting Blood Pressure Position [Right Arm] Lying Pulse Oximetry 96 96 98 Oxygen Delivery Method Room Air Room Air Sepsis Recent Fever Within 48 Hours No Sepsis New/Unexplained Change in Mental Status No Sepsis Action Taken by Nursing No Action Required 10/14/21 21:00 Temperature Temperature Source Pulse Rate Pulse Rate [Apical] 79 Pulse Rhythm [Apical] Pulse Strength [Apical] Respiratory Rate 18 Respiratory Effort / Characteristics Respiratory Depth Respiratory Pattern Blood Pressure Blood Pressure [Right Arm] 180/90 H Blood Pressure Mean Blood Pressure Mean [Right Arm] 120 Blood Pressure Position Blood Pressure Position [Right Arm] Pulse Oximetry 93 Oxygen Delivery Method Room Air Sepsis Recent Fever Within 48 Hours Sepsis New/Unexplained Change in Mental Status Sepsis Action Taken by Nursing Laboratory Data Result diagrams: 10/14/21 14:50 10/14/21 14:50 Lab Results 10/14/21 10/14/21 10/14/21 Range/Units 14:50 14:50 14:50 WBC 6.38 (4.8-10.8) K/uL RBC 3.76 L (4.2-5.4) M/uL Hgb 11.8 L (12.0-16.0) g/dL Hct 38.2 (37-47) % MCV 101.6 H (80-100) fL MCH 31.4 (25-34) pg MCHC 30.9 L (32-36) g/dL RDW Std Deviation 57.1 H (36.4-46.3) fL RDW Coeff of Rico 15.2 H (11.5-14.5) % Plt Count 188 (130-400) K/uL MPV 10.7 H (7.4-10.4) fL Immature Gran % (Auto) 0.6 % Neut % (Auto) 61.5 % Lymph % (Auto) 22.1 % Aiken % (Auto) 8.5 % Eos % (Auto) 6.4 % Baso % (Auto) 0.9 % Neut # (Auto) 3.92 (1.4-6.5) K/uL Lymph # (Auto) 1.41 (1.2-3.4) K/uL Aiken # (Auto) 0.54 (0.11-0.59) K/uL Eos # (Auto) 0.41 (0-0.5) K/uL Baso # (Auto) 0.06 (0-0.2) K/uL Immature Gran # (Auto) 0.04 H (0.00-0.02) K/uL Absolute Nucleated RBC 0.05 H (0-0) K/uL Nucleated RBC % (auto) 0.8 % ESR 67 H (0-30) mm/hr PT 10.8 (9.0-12.0) Seconds INR 1.0 (0.9-1.1) Sodium (136-145) mmol/L Potassium (3.5-5.1) mmol/L Chloride (98-107) mmol/L Carbon Dioxide (21-32) mmol/L Anion Gap (3-11) BUN (6-23) mg/dl Creatinine (0.6-1.2) mg/dl Est Cr Clr Drug Dosing ml/min Est GFR ( Amer) ml/min Est GFR (Non-Af Amer) ml/min BUN/Creatinine Ratio (10-20) Glucose (70-99(Fasting)) mg/dl Lactate (0.4-2.0) mmol/L Calcium (8.5-10.1) mg/dl Total Bilirubin (0.2-1.0) mg/dl AST (13-39) U/L ALT (7-52) U/L Alkaline Phosphatase (34-104) U/L C-Reactive Protein (0-0.5) mg/dl Total Protein (6.0-8.3) gm/dl Albumin (3.4-5.0) gm/dl Globulin (2.5-4.0) gm/dl Albumin/Globulin Ratio (0.9-2) Procalcitonin (0-0.5) ng/ml SARS-CoV-2, RNA, NAAT (NEGATIVE) 10/14/21 10/14/21 10/14/21 Range/Units 14:50 14:50 14:50 WBC (4.8-10.8) K/uL RBC (4.2-5.4) M/uL Hgb (12.0-16.0) g/dL Hct (37-47) % MCV (80-100) fL MCH (25-34) pg MCHC (32-36) g/dL RDW Std Deviation (36.4-46.3) fL RDW Coeff of Rico (11.5-14.5) % Plt Count (130-400) K/uL MPV (7.4-10.4) fL Immature Gran % (Auto) % Neut % (Auto) % Lymph % (Auto) % Aiken % (Auto) % Eos % (Auto) % Baso % (Auto) % Neut # (Auto) (1.4-6.5) K/uL Lymph # (Auto) (1.2-3.4) K/uL Aiken # (Auto) (0.11-0.59) K/uL Eos # (Auto) (0-0.5) K/uL Baso # (Auto) (0-0.2) K/uL Immature Gran # (Auto) (0.00-0.02) K/uL Absolute Nucleated RBC (0-0) K/uL Nucleated RBC % (auto) % ESR (0-30) mm/hr PT (9.0-12.0) Seconds INR (0.9-1.1) Sodium 138 (136-145) mmol/L Potassium 5.0 (3.5-5.1) mmol/L Chloride 101 (98-107) mmol/L Carbon Dioxide 28 (21-32) mmol/L Anion Gap 9 (3-11) BUN 42 H (6-23) mg/dl Creatinine 5.22 H* (0.6-1.2) mg/dl Est Cr Clr Drug Dosing 10.0 ml/min Est GFR ( Amer) 9.2 ml/min Est GFR (Non-Af Amer) 8.0 ml/min BUN/Creatinine Ratio 8.0 L (10-20) Glucose 267 H (70-99(Fasting)) mg/dl Lactate 1.0 (0.4-2.0) mmol/L Calcium 9.9 (8.5-10.1) mg/dl Total Bilirubin 0.5 (0.2-1.0) mg/dl AST 17 (13-39) U/L ALT 14 (7-52) U/L Alkaline Phosphatase 74 (34-104) U/L C-Reactive Protein 5.04 H (0-0.5) mg/dl Total Protein 7.8 (6.0-8.3) gm/dl Albumin 4.1 (3.4-5.0) gm/dl Globulin 3.7 (2.5-4.0) gm/dl Albumin/Globulin Ratio 1.1 (0.9-2) Procalcitonin 1.07 H (0-0.5) ng/ml SARS-CoV-2, RNA, NAAT (NEGATIVE) 10/14/21 Range/Units 15:06 WBC (4.8-10.8) K/uL RBC (4.2-5.4) M/uL Hgb (12.0-16.0) g/dL Hct (37-47) % MCV (80-100) fL MCH (25-34) pg MCHC (32-36) g/dL RDW Std Deviation (36.4-46.3) fL RDW Coeff of Rico (11.5-14.5) % Plt Count (130-400) K/uL MPV (7.4-10.4) fL Immature Gran % (Auto) % Neut % (Auto) % Lymph % (Auto) % Aiken % (Auto) % Eos % (Auto) % Baso % (Auto) % Neut # (Auto) (1.4-6.5) K/uL Lymph # (Auto) (1.2-3.4) K/uL Aiken # (Auto) (0.11-0.59) K/uL Eos # (Auto) (0-0.5) K/uL Baso # (Auto) (0-0.2) K/uL Immature Gran # (Auto) (0.00-0.02) K/uL Absolute Nucleated RBC (0-0) K/uL Nucleated RBC % (auto) % ESR (0-30) mm/hr PT (9.0-12.0) Seconds INR (0.9-1.1) Sodium (136-145) mmol/L Potassium (3.5-5.1) mmol/L Chloride (98-107) mmol/L Carbon Dioxide (21-32) mmol/L Anion Gap (3-11) BUN (6-23) mg/dl Creatinine (0.6-1.2) mg/dl Est Cr Clr Drug Dosing ml/min Est GFR ( Amer) ml/min Est GFR (Non-Af Amer) ml/min BUN/Creatinine Ratio (10-20) Glucose (70-99(Fasting)) mg/dl Lactate (0.4-2.0) mmol/L Calcium (8.5-10.1) mg/dl Total Bilirubin (0.2-1.0) mg/dl AST (13-39) U/L ALT (7-52) U/L Alkaline Phosphatase (34-104) U/L C-Reactive Protein (0-0.5) mg/dl Total Protein (6.0-8.3) gm/dl Albumin (3.4-5.0) gm/dl Globulin (2.5-4.0) gm/dl Albumin/Globulin Ratio (0.9-2) Procalcitonin (0-0.5) ng/ml SARS-CoV-2, RNA, NAAT NEGATIVE (NEGATIVE) Imaging Data Radiologist's Impression: Foot X-Ray 10/14/21 14:07 RIGHT FOOT 3 VIEWS HISTORY: Right foot redness/infection, hx osteo COMPARISON: Right foot radiograph 04/13/2021. FINDINGS: There is no fracture or dislocation. The bones are osteopenic. Vascular calcifications are noted. The Lisfranc joint is intact. Postoperative changes again noted within the right ankle. Soft tissue swelling within the forefoot, unchanged. No cortical destruction to suggest an osteomyelitis. No radiopaque foreign bodies. IMPRESSION: 1. Diffuse soft tissue swelling within the forefoot, unchanged. 2. No underlying bony destruction to suggest an osteomyelitis. 3. Diffuse osteopenia. ACT 112: Negative or not required by law. Electronically signed by: Duane Baeza M.D. 10/14/2021 3:55 PM Chest X-Ray 10/14/21 16:43 XR chest 1V portable CLINICAL HISTORY: admit TECHNIQUE: Single frontal radiograph of the chest was obtained. Comparison: Comparison is made to chest radiograph 04/22/2021 FINDINGS: Dual lumen venous catheter is seen in the right jugular vein the tip at the cavoatrial junction. Calcified aortic knob is seen. Prominence and cephalization of the vasculature is seen. No evidence of pleural effusion or pneumothorax. IMPRESSION: Mild pulmonary edema. ACT 112: Negative or not required by law. Electronically signed by: Keagan Ny M.D. 10/14/2021 5:01 PM Discharge Plan Visit Data Chief Complaint: Wound Stated Complaint: SORE ON FOOT, POSS INFECTION ED Provider: Rian Adan Discharge Problem: Cellulitis of foot, right, End stage renal failure on dialysis, Diabetic infection of right foot Patient Disposition: Being Evaluated by Hospitalist Forms Stand Alone Forms: My [facility] Prescriptions Prescriptions: No Action cholecalciferol (vitamin D3) [Vitamin D3] 2,000 unit Capsule 2,000 unit PO QAM RF: 0 furosemide 40 mg tablet 40 mg PO BID RF: 0 coenzyme Q10 [Co Q-10] 100 mg Capsule 100 mg PO QAM RF: 0 Renal Caps 1 mg Capsule 1 cap PO QAM Qty: 90 RF: 0 atorvastatin 40 mg Tablet 40 mg PO QAM Qty: 30 RF: 0 gabapentin [Neurontin] 100 mg Capsule 100 mg PO HS RF: 0 Eliquis 5 mg tablet 5 mg PO BID RF: 0 multivitamin Tablet 1 tab PO QAM RF: 0 Basaglar KwikPen U-100 Insulin 100 unit/mL (3 mL) insulin pen 30 unit SUBCUT QAM RF: 0 hydralazine 25 mg tablet 25 mg PO TID Qty: 90 RF: 0 carvedilol 12.5 mg Tablet 12.5 mg PO BID Qty: 60 RF: 0 zinc 10 mg Tablet 10 mg PO DAILY RF: 0 Velphoro 500 mg tablet,chewable 500 mg PO .QSUPPER RF: 0 calcium acetate(phosphat bind) 667 mg capsule 1,334 mg PO BIDM RF: 0 dorzolamide-timolol 22.3-6.8 mg/mL Drops 1 drp OPHTHALMIC (EYE) BID RF: 0 Referrals Referrals: Melissa Bronson DO [Primary Care Provider] -
[2021-10-14 15:17] LABS: Basophils # (auto) 0.06 K/uL (0-0.2); Basophils % (auto) 0.9 %; Eosinophils # (auto) 0.41 K/uL (0-0.5); Eosinophils % (auto) 6.4 %; Hematocrit (blood only) 38.2 % (37-47); Hemoglobin 11.8 g/dL (12.0-16.0); Immature Granulocytes # (auto) 0.04 K/uL (0.00-0.02); Immature Granulocytes % (auto) 0.6 %; Lymphocytes # (auto) 1.41 K/uL (1.2-3.4); Lymphocytes % (auto) 22.1 %; Mean Corpuscular Hemoglobin 31.4 pg (25-34); Mean Corpuscular Hgb Conc 30.9 g/dL (32-36); Mean Corpuscular Volume 101.6 fL (80-100); Mean Platelet Volume 10.7 fL (7.4-10.4); Monocytes # (auto) 0.54 K/uL (0.11-0.59); Monocytes % (auto) 8.5 %; Neutrophils # (auto) 3.92 K/uL (1.4-6.5); Neutrophils % (auto) 61.5 %; Nucleated RBC # (auto) 0.05 K/uL (0-0); Nucleated RBC % (auto) 0.8 %; Platelet Count 188 K/uL (130-400); RDW Coefficient of Variation 15.2 % (11.5-14.5); RDW Standard Deviation 57.1 fL (36.4-46.3); Red Blood Count 3.76 M/uL (4.2-5.4); White Blood Count 6.38 K/uL (4.8-10.8)
[2021-10-14 15:23] LABS: Prothrombin Time 10.8 Seconds (9.0-12.0)
[2021-10-14 15:30] LABS: Albumin Globulin Ratio 1.1 (0.9-2); Albumin Level 4.1 gm/dl (3.4-5.0); Bilirubin,Total 0.5 mg/dl (0.2-1.0); C Reactive Protein 5.04 mg/dl (0-0.5); Calcium 9.9 mg/dl (8.5-10.1); Est GFR (African American) 9.2 ml/min; Globulin 3.7 gm/dl (2.5-4.0); Total Protein 7.8 gm/dl (6.0-8.3)
--- NOTE | 2021-10-14 15:56 | XRay Report ---
RIGHT FOOT 3 VIEWS HISTORY: Right foot redness/infection, hx osteo COMPARISON: Right foot radiograph 04/13/2021. FINDINGS: There is no fracture or dislocation. The bones are osteopenic. Vascular calcifications are noted. The Lisfranc joint is intact. Postoperative changes again noted within the right ankle. Soft t issue swelling within the forefoot, unchanged. No cortical destruction to suggest an osteomyelitis. N o radiopaque foreign bodies. IMPRESSION: 1. Diffuse soft tissue swelling within the forefoot, unchanged. 2. No underlying bony destruction to suggest an osteomyelitis. 3. Diffuse osteopenia. ACT 112: Negative or not required by law. Electronically signed by: Duane Baeza M.D. 10/14/2021 3:55 PM
--- NOTE | 2021-10-14 16:43 | History & Physical Report ---
Date of Service October 14, 2021 Assessment & Plan (1) Cellulitis of foot, right: (2) Diabetic foot ulcer: (3) Type 2 diabetes mellitus: (4) End stage renal failure on dialysis: (5) Chronic diastolic CHF (congestive heart failure): (6) Diabetic neuropathy: (7) Hypertension: Plan: This is a 66-year-old female who has significant past medical history of insulin-dependent T2DM, end-stage renal disease on hemodialysis Monday, diabetic retinopathy, diabetic neuropathy, chronic HFpEF, history of osteomyelitis of right foot, anemia of renal disease, history of DVT, history of CVA, steal syndrome to left arm who presents to ER secondary to worsening redness and cellulitis on right foot x1 week. Right lower extremity cellulitis including right foot Healing right lateral midfoot diabetic ulcer Diabetic neuropathy History of right foot osteomyelitis treated with IV vancomycin 03/2021-05/2021 admit to tele start IV vanco and rocephin empirically consult Dr Acharya - ingrid Infectious disease last note recommendation is for bone bx given recurrence of cellulitis Obtain MRI R foot to eval for OM surface culture obtained, clinic culture grew coag negative staph wound care consult npo after midnight in event orthopedic intervention Arterial Duplex LE done 06/2021: IMPRESSION: While there is patent arterial flow bilaterally, there is significantly elevated flow velocity present at multiple sites bilaterally representing sites of focal stenosis. consider consulting vascular if no improvement hold eliquis for now (on for dvt) and start low dose IV heparin in event procedure needed ESR 67, CRP ESRD on HD MWF [facility] Ambrocio continue phos lo and velphoro monitor mag, phos electrolytes stable, on room air Insulin-dependent T2DM Diabetic neuropathy Diabetic nephropathy Diabetic retinopathy last a1c 6.4 on 06/10/21 a1c in a.m. Lantus/novolog per protocol consult glycemic pharmacy continue gabapentin Anemia of renal disease hgb stable at 11.8 no s/ sx of bleeding HTN continue hydralazine, coreg DVT ppx: hold eliquis for now, IV heparin low dose until determined if surgical intervention needed Dispo: Tele, pt needs IV antibiotics, ortho eval for possible bone bx, eventual ID consult, will remain hospitalized for few days at least PCP: Audie FULL CODE Pt was seen and examined in collaboration with Dr. Vangala, please see addendum History of Present Illness Chief Complaint: Worsening cellulitis to right foot x1 week. Primary Care Provider: Melissa Bronson DO This is a 66-year-old female who has significant past medical history of insulin-dependent T2DM, end-stage renal disease on hemodialysis Monday, diabetic retinopathy, diabetic neuropathy, chronic HFpEF, history of osteomyelitis of right foot, anemia of renal disease, history of DVT, history of CVA, steal syndrome to left arm who presents to ER secondary to worsening redness and cellulitis on right foot x1 week. Of significance patient has prior history of right foot osteomyelitis in the past. Her most recent hospitalization was in March 2021. MRI was performed at that time which again revealed possible osteomyelitis. She was started on IV antibiotics. She was seen and evaluated by orthopedics who did not feel surgical intervention warranted at that time. Infectious disease was consulted who recommended 6-week course of IV vancomycin. She completed antibiotic without difficulty. Per infectious disease recommendation was if infection recurs obtain bone biopsy for organisms identification. She did follow-up with infectious disease in May 2021. At that point her right foot was doing well. She was seen in outpatient clinic approximately 1 week ago. A surface culture was obtained which grew coag negative staph. She was started on Keflex and has been on this for approximately 1 week without significant improvement. She was seen in clinic today for follow-up and recommended to seek ED due to worsening infection. Her last tx of HD was yesterday. Her redness started 1 week ago. She has a sore to the lateral aspect of R mid foot. She denies pain due to neuropathy or drainage. She does have a broken ankle and follows Dr. Acharya. She has a boot she wears to keep weight off the R foot. She denies f/c/s, chest pain, sob, n/v/constipation, abd pain, URI sx, melena or hematochezia. She does have diarrhea due to adr from her medications. In ED she remained hemodynamically stable. Lab work revealed elevated ESR 67, CRP 5.04 procalcitonin 1.07. Foot x-ray revealed diffuse soft tissue swelling within the right forefoot no underlying destruction to suggest osteomyelitis. Allergies Allergy/AdvReac Type Severity Reaction Status Date / Time daptomycin AdvReac Intermediate Difficulty Verified 10/14/21 16:55 Breathing Home Medications Medication Instructions Recorded Confirmed Type cholecalciferol (vitamin D3) 50 2,000 unit PO QAM 07/07/18 10/14/21 History mcg (2,000 unit) capsule (Vitamin D3) coenzyme Q10 100 mg capsule (Co 100 mg PO QAM 11/18/20 10/14/21 History Q-10) furosemide 40 mg tablet 40 mg PO BID 11/18/20 10/14/21 History vitamin B complex and vitamin C 1 cap PO QAM #90 cap 11/24/20 10/14/21 Rx no.20-folic acid 1 mg capsule (Renal Caps) multivitamin 1 tab PO QAM 11/27/20 10/14/21 History insulin glargine 100 unit/mL (3 30 unit SUBCUT QAM 01/18/21 10/14/21 History mL) subcutaneous pen (Basaglar KwikPen U-100 Insulin) hydralazine 25 mg tablet 25 mg PO TID #90 tab 01/23/21 10/14/21 Rx carvedilol 12.5 mg tablet 12.5 mg PO BID #60 tab 01/24/21 10/14/21 Rx atorvastatin 40 mg tablet 40 mg PO QAM #30 tab 04/27/21 10/14/21 Rx gabapentin 100 mg capsule 100 mg PO HS 07/29/21 10/14/21 History (Neurontin) apixaban 5 mg tablet (Eliquis) 5 mg PO BID 08/02/21 10/14/21 History zinc 10 mg tablet 10 mg PO DAILY 08/24/21 10/14/21 History calcium acetate(phosphat bind) 667 1,334 mg PO BIDM 10/14/21 10/14/21 History mg capsule dorzolamide 22.3 mg-timolol 6.8 1 drp OPHTHALMIC (EYE) BID 10/14/21 10/14/21 History mg/mL eye drops sucroferric oxyhydroxide 500 mg 500 mg PO .QSUPPER 10/14/21 10/14/21 History chewable tablet (Velphoro) Past Med/Surg History Medical History AV fistula left arm Chronic anemia Chronic diastolic CHF (congestive heart failure) EF 55-60% per 03/2021 ECHO Deep vein thrombosis LEG + ARM *DX DECEMBER 2020 (REASON FOR ELIQUIS) Diabetes mellitus, type 2 Hgb A1C 6.2 on 04/17/21 Diabetic neuropathy Diabetic retinopathy HAS HAD INJECTIONS TO RELEASE PRESSURE/BLEEDING Dialysis patient M/W/F ([place]) USING SUBCLAVIAN PORT? *"NEAR NECK AREA WITH 2 LINES" Dyslipidemia End stage renal failure on dialysis History of CVA (cerebrovascular accident) Found incidentally on November 2020 brain MRI- started on ASA and Plavix History of depression Hx of diabetic foot ulcer "ALL HEALED" Hx of osteomyelitis RT FOOT Hypertension Mild depression On home oxygen therapy CURRENTLY NOT USING/WAS USING WITH ACTIVTY BUT CURRENTLY IN WC Posterior capsular opacification Syncope and collapse - Syncope vs possible cardiac arrest initially when admitted to [facility] 12/2020 (had similar admissions in November 2020- felt hypotension during dialysis) - Per 01/24/21 Discharge Summary- episode occurred during dialysis- pt was unresponsive and cyanotic- chest compressions done - During hospital stay troponins trended but felt secondary to renal disease and recent chest compressions (AED applied with no shock indicated- per cardio consult- suggesting loss of consciousness and not secondary to VT or VF) -Considering transient hypotension from fluid shifts during HD sessions have contributed to unresponsive episodes- made decision to hold all meds prior to dialysis -Per cardio consult 01/23/21- possibly related to volume shifts- stress test negative in November; recent EKG and ECHO did not suggest acute ischemia event. Telemetry on admission without arrhythmias -Pt admitted 04/2021 for DM ulcer/osteomyelitis- per 04/27/21 discharge- pt had recurrent syncope after dialysis 04/16/21 (neuro imaging showed no issues, cardio felt no further testing necessary) Surgical History History of ankle surgery RT ([facility] [employer]TA[employer]) History of appendectomy History of cataract surgery RT/LEFT History of dilatation and curettage History of esophagogastroduodenoscopy (EGD) History of surgery Left arm AVF creation (08/24/21): MAC at [facility] Family History Sister Ovarian cancer Brother Hypertension Family history of diabetes mellitus Other No family history of adverse response to anesthesia Social History Smoking Status: Never smoker Second Hand Exposure: No; Hx Alcohol Use: No Hx Substance Use: No Preferred Language: Monegasque 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: Effective Metal Hanging Helper Required: No Beliefs That Will Affect Care: None marital status: Current Living Situation: Alone Current Living Situation Comment: handicap accessible appartment per patient current occupational status: retired How many Children do You have: 1 Feels Safe at Home: Yes Diet Comment: stated low salt, low carb during the past year weight has: increased > 10 lbs Assistive Devices: Glasses and Walker Review of Systems Review of Systems: All systems reviewed & are unremarkable except as noted in HPI & below Physical Exam Physical Exam: Constitutional: WD/WN, vitals as above, NAD, sitting up in bed, pleasant, conversing easily Head: Normocephalic, Atraumatic Eyes: PERRL, conjunctivae normal, anicteric sclerae ENMT: external ear and nose normal, oropharynx normal Neck: trachea midline, no thyromegaly normal visual inspection Respiratory: normal respiratory effort, lungs clear to auscultation, no wheeze, rales, rhonchi. Normal insp/exp effort, no accessory muscle use Cardiovascular: RRR, no murmur, b/l lower ext erythema, R > L, R extends up prox tibial surface, warm to touch, healing wound to R lateral midfoot, no drainage, palpable pulses b/l, +2 Vessels: no JVD or carotid bruit Chest: normal inspection of chest, RACW port a cath noted, LUE AV fisutla nonfunctional Abdomen: normal bowel sounds, soft, nontender, no hepatosplenomegaly Musculoskeletal: no cyanosis or clubbing, AROM x 4, R ankle with inversion Skin: no rashes, warm and dry normal turgor Neurologic: PERRL, EOMI, accommodation nl, no face palsy, no dysarthria CN's II-XI intact bilaterally and moves all extremities Psychiatric: A+Ox3, euthymic affect : deferred Results & Data Results & Data ([facility]) Vital Signs (Past 12 Hours) Vital Signs Temp Pulse Pulse Resp BP BP Pulse Ox 10/14/21 16:00 75 18 162/67 H 96 10/14/21 13:40 36.5 C 76 18 187/93 H 96 Diagnostic Findings Foot X-Ray 10/14/21 14:07 RIGHT FOOT 3 VIEWS HISTORY: Right foot redness/infection, hx osteo COMPARISON: Right foot radiograph 04/13/2021. FINDINGS: There is no fracture or dislocation. The bones are osteopenic. Vascular calcifications are noted. The Lisfranc joint is intact. Postoperative changes again noted within the right ankle. Soft tissue swelling within the forefoot, unchanged. No cortical destruction to suggest an osteomyelitis. No radiopaque foreign bodies. IMPRESSION: 1. Diffuse soft tissue swelling within the forefoot, unchanged. 2. No underlying bony destruction to suggest an osteomyelitis. 3. Diffuse osteopenia. ACT 112: Negative or not required by law. Electronically signed by: Duane Baeza M.D. 10/14/2021 3:55 PM XR chest 1V portable CLINICAL HISTORY: admit TECHNIQUE: Single frontal radiograph of the chest was obtained. Comparison: Comparison is made to chest radiograph 04/22/2021 FINDINGS: Dual lumen venous catheter is seen in the right jugular vein the tip at the cavoatrial junction. Calcified aortic knob is seen. Prominence and cephalization of the vasculature is seen. No evidence of pleural effusion or pneumothorax. IMPRESSION: Mild pulmonary edema. ECG Rate (beats per minute): 75 Rhythm: normal sinus Additional Comments: from 04/2021, no ecg done in ED today COVID-19 Results Results COVID-19 Adm Lab Results: RBC 3.76 M/uL (4.2-5.4) L 10/14/21 WBC 6.38 K/uL (4.8-10.8) 10/14/21 Hgb 11.8 g/dL (12.0-16.0) L 10/14/21 Hct 38.2 % (37-47) 10/14/21 Plt Count 188 K/uL (130-400) 10/14/21 Neutrophils (%) (Auto) 61.5 % 10/14/21 Lymphocytes (%) (Auto) 22.1 % 10/14/21 Monocytes # (Auto) 0.54 K/uL (0.11-0.59) 10/14/21 Eosinophils # (Auto) 0.41 K/uL (0-0.5) 10/14/21 Immature Granulocyte % (Auto) 0.6 % 10/14/21 Neutrophils # (Auto) 3.92 K/uL (1.4-6.5) 10/14/21 Lymphocytes # (Auto) 1.41 K/uL (1.2-3.4) 10/14/21 Monocytes # (Auto) 0.54 K/uL (0.11-0.59) 10/14/21 Eosinophils # (Auto) 0.41 K/uL (0-0.5) 10/14/21 Basophils # (Auto) 0.06 K/uL (0-0.2) 10/14/21 Immature Granulocyte # (Auto) 0.04 K/uL (0.00-0.02) H 10/14/21 Na 138 mmol/L (136-145) 10/14/21 K 5.0 mmol/L (3.5-5.1) 10/14/21 Cl 101 mmol/L (98-107) 10/14/21 CO2 28 mmol/L (21-32) 10/14/21 Anion Gap 9 (3-11) 10/14/21 BUN 42 mg/dl (6-23) H 10/14/21 Creatinine 5.22 mg/dl (0.6-1.2) H* 10/14/21 BUN/Creatinine Ratio 8.0 (10-20) L 10/14/21 Glucose Level 267 mg/dl (70-99(Fasting)) H 10/14/21 Ca 9.9 mg/dl (8.5-10.1) 10/14/21 Total Bilirubin 0.5 mg/dl (0.2-1.0) 10/14/21 AST/SGOT 17 U/L (13-39) 10/14/21 ALT/SGPT 14 U/L (7-52) 10/14/21 Alkaline Phosphatase 74 U/L (34-104) 10/14/21 Total Protein 7.8 gm/dl (6.0-8.3) 10/14/21 Albumin 4.1 gm/dl (3.4-5.0) 10/14/21 Globulin 3.7 gm/dl (2.5-4.0) 10/14/21 Albumin/Globulin Ratio 1.1 (0.9-2) 10/14/21 CRP 5.04 mg/dl (0-0.5) H 10/14/21 Procalcitonin 1.07 ng/ml (0-0.5) H 10/14/21 INR 1.0 (0.9-1.1) 10/14/21 SARS-CoV-2, RNA, NAAT NEGATIVE (NEGATIVE) 10/14/21 Chest X-Ray 10/14/21 Code Status & VTE Plan Code Status FULL CODE VTE Prophylaxis Plan VTE Prophylaxis will be ordered: No Supervising Physician Co-Signing Physician Notes Patient is a 66-year-old female with history of end-stage renal disease on dialysis, CHF, diabetes mellitus, hypertension, hyperlipidemia, peripheral neuropathy, osteomyelitis and other medical problems presents with history of worsening right lower extremity redness which has been gradually worsening since 1 week duration. Patient had history of osteomyelitis few months ago and completed IV antibiotics in May 2021. Patient was evaluated at outpatient clinic and was started on Keflex for coagulase-negative staph infection of the wound. Patient presents for further management of worsening infection. Please review HPI for complete details of presentation. On exam patient is moderately built and nourished, no apparent distress, normocephalic atraumatic, EOMI, normal breath sounds, clear to auscultation, S1-S2, no murmur, bilateral lower extremity edema, erythema, warmth, right ankle deformity from prior surgery, venous stasis changes. Abdomen soft, nontender, normal bowel sounds, alert, awake, oriented, grossly no focal deficits. Blood work showed WBC 6.38, hemoglobin 11.8, platelet count 188, ESR 67, sodium 138, potassium 4.0, creatinine 5.22, glucose 267, procalcitonin 1.07, CRP 5.04. Foot x-ray showed soft tissue swelling within the forefoot, unchanged from prior imaging. No evidence of osteomyelitis. Diffuse osteopenia noted. MRI of the foot is pending. Chest x-ray showed mild pulmonary edema. Blood and wound cultures are pending. EKG showed normal sinus rhythm, nonspecific T wave abnormality, QTC 460. Patient is admitted for management of lower extremity cellulitis, diabetic foot ulcer. Cannot rule out osteomyelitis. MRI of the foot pending. Will start on broad-spectrum antibiotics IV vancomycin, Rocephin. Consulted orthopedics. Consider ID evaluation if needed. Recently had arterial Doppler study which was reviewed. Will hold home Eliquis and start on IV heparin for possible procedure. Consulted nephrology for dialysis. I personally reviewed the record. Patient is interviewed and examined at bedside. Patient's care is coordinated with Nayely Panda PA-C. Please refer to the documentation above for details of patient's presentation and for discussion of other issues. 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
--- NOTE | 2021-10-14 17:02 | XRay Report ---
XR chest 1V portable CLINICAL HISTORY: admit TECHNIQUE: Single frontal radiograph of the chest was obtained. Comparison: Comparison is made to chest radiograph 04/22/2021 FINDINGS: Dual lumen venous catheter is seen in the right jugular vein the tip at the cavoatrial junction. Calc ified aortic knob is seen. Prominence and cephalization of the vasculature is seen. No evidence of pl eural effusion or pneumothorax. IMPRESSION: Mild pulmonary edema. ACT 112: Negative or not required by law. Electronically signed by: Keagan Ny M.D. 10/14/2021 5:01 PM
[2021-10-14] MEDS ORDERED: Heparin IV Adult Wt-Based Low-Dose *NO* Bolus Protocol IV SCH (21:52)
[2021-10-14] MEDS ORDERED: INSULIN ASPART PER UNIT SC SCH (21:52)
[2021-10-14] MEDS ORDERED: ACETAMINOPHEN 325 MG TAB PO PRN (21:52)
[2021-10-14] MEDS ORDERED: hydrALAZINE HCL 20 MG/ML VIAL IV PRN (21:52)
[2021-10-14] MEDS ORDERED: GLUCOSE 10 TABS/TUBE PO PRN (21:52)
[2021-10-14] MEDS ORDERED: POLYETHYLENE (MIRALAX) 17 GM PACK PO PRN (21:52)
[2021-10-14] MEDS ORDERED: VANCOMYCIN CONSULT ACTIVE PRN (21:52)
[2021-10-14] MEDS ORDERED: CARBOHYDRATES FOR HYPOGLYCEMIA PO PRN (21:52)
[2021-10-14] MEDS ORDERED: DEXTROSE 50% 50 ML SYRINGE IV PRN (21:52)
[2021-10-14] MEDS ORDERED: GLUCAGON FOR INJ 1 MG VIAL SQ PRN (21:52)
[2021-10-14] MEDS ORDERED: PHARMACY GLYCEMIC MGMT CONSULT PRN (21:52)
[2021-10-14] MEDS ORDERED: GLUCOSE 40% GEL 15 GM TUBE PO PRN (21:52)
[2021-10-14] MEDS ORDERED: ONDANSETRON INJ 2 MG/ML 2 ML VIAL IV PRN (21:52)
[2021-10-14 22:51] LABS: Partial Thromboplastin Ratio 1.1; Partial Thromboplastin Time 29.2 Seconds (21.0-31.0)
[2021-10-14] MEDS ORDERED: VANCOMYCIN HCL 1,500 MG in SODIUM CHLORIDE 0.9% 500 ML IV SCH (23:00)
[2021-10-14] MEDS: hydrALAZINE HCL 25 MG TAB PO SCH (23:11)
[2021-10-14] MEDS: FUROSEMIDE 40 MG TAB PO SCH (23:12)
[2021-10-14] MEDS: GABAPENTIN 100 MG CAP PO SCH (23:12)
[2021-10-14] MEDS: carvediloL 12.5 MG TAB PO SCH (23:12)
[2021-10-14] MEDS: DORZOLAMIDE/TIMOLOL 22.3/6.8MG/ML 10 ML BTL OP SCH (23:13)
[2021-10-14] MEDS: HEPARIN SODIUM/DEXTROSE 25,000 UNITS/500 ML BAG IV SCH (23:21)
[2021-10-14] MEDS: cefTRIAXone SODIUM 1,000 MG in DEXTROSE 5% 50 ML IV SCH (23:45)
[2021-10-15] MEDS: INSULIN ASPART PER UNIT SC SCH ×5 (01:02→21:36)
--- NOTE | 2021-10-15 04:17 | Pharmacy Report ---
Pharmacy [facility] Short Note - Date of Service October 15, 2021 - Assessment & Plan Assessment 66 year old F receiving Vancomycin and Rocephin for treatment of R foot cellulitis. Pertinent microbiologic data includes: Negative MRSA nasal swab, Blood and foot cultures pending. Plan Vancomycin * Received Vancomycin 1500mg (19mg/kg) IV loading dose in the ER. * Patient is in ESRD on HD, so will check a random Vancomycin level with AM labs and redose empirically based on labs. Pharmacy will continue to follow and will adjust dose/frequency as necessary. Thank you.
[2021-10-15 07:26] LABS: Partial Thromboplastin Ratio 1.2; Partial Thromboplastin Time 32.2 Seconds (21.0-31.0)
[2021-10-15 07:44] LABS: Albumin Globulin Ratio 1.2 (0.9-2); Albumin Level 3.7 gm/dl (3.4-5.0); BUN Creatinine Ratio 8.7 (10-20); Bilirubin,Total 0.3 mg/dl (0.2-1.0); Calcium 9.2 mg/dl (8.5-10.1); Creatinine Clr Calc Pharmacy 8.4 ml/min; Est GFR (African American) 7.5 ml/min; Est GFR (Non-African American) 6.5 ml/min; Globulin 3.2 gm/dl (2.5-4.0); Magnesium 2.3 mg/dl (1.7-2.4); Phosphorus 5.4 mg/dl (2.5-4.9); Potassium 5.2 mmol/L (3.5-5.1); Total Protein 6.9 gm/dl (6.0-8.3)
[2021-10-15] MEDS: ATORVASTATIN 40 MG TAB PO SCH (08:05)
[2021-10-15] MEDS: MULTIVITAMIN TAB PO SCH (08:05)
[2021-10-15] MEDS: NEPHROCAPS PO SCH (08:05)
[2021-10-15] MEDS: CHOLECALCIFEROL 1,000 UNITS 25 MCG TAB PO SCH (08:06)
[2021-10-15] MEDS: DORZOLAMIDE/TIMOLOL 22.3/6.8MG/ML 10 ML BTL OP SCH ×2 (08:06→20:42)
[2021-10-15] MEDS: CALCIUM ACETATE 667 MG CAP/TAB PO SCH ×2 (08:06→13:58)
[2021-10-15] MEDS: hydrALAZINE HCL 25 MG TAB PO SCH ×3 (08:09→20:41)
[2021-10-15] MEDS: carvediloL 12.5 MG TAB PO SCH ×2 (08:09→20:41)
[2021-10-15] MEDS: FUROSEMIDE 40 MG TAB PO SCH ×2 (08:09→16:21)
--- NOTE | 2021-10-15 08:12 | Hospitalist Progress Note ---
Date of Service October 15, 2021 Assessment & Plan (1) Cellulitis of foot, right: (2) Diabetic foot ulcer: (3) Type 2 diabetes mellitus: (4) End stage renal failure on dialysis: (5) Chronic diastolic CHF (congestive heart failure): (6) Diabetic neuropathy: (7) Hypertension: Plan: This is a 66-year-old female w/ insulin-dependent T2DM, end-stage renal disease on hemodialysis Monday, diabetic retinopathy, diabetic neuropathy, chronic HFpEF, history of osteomyelitis of right foot, anemia of renal disease, history of DVT, history of CVA, steal syndrome to left arm who presents to ER secondary to worsening redness and cellulitis on right foot x1 week. Right lower extremity cellulitis including right foot Healing right lateral midfoot diabetic ulcer Diabetic neuropathy History of right foot osteomyelitis treated with IV vancomycin 03/2021-05/2021 admitted to tele started IV vancomycin and rocephin empirically Consulted Dr Acharya - ingrid Infectious disease last note recommendation is for pb ne bx given recurrence of cellulitis Obtained MRI R foot to eval for OM FINDINGS: There is a normal marrow signal intensity seen throughout the visualized osseous structures of the right foot. The marrow edema at the base of the fifth metatarsal has resolved in the interval. No areas of cortical destruction to suggest an osteomyelitis. No fracture or dislocation. The Lisfranc joint is intact. Extensive subcutaneous and deep soft tissue edema seen throughout the foot, unchanged. There is also edema within the plantar muscles which is also unchanged. This may represent chronic denervation injury. No loculated fluid collections to suggest an abscess. No joint effusions. The flexor and extensor tendons appear intact. Mild degenerative changes again noted within the foot. IMPRESSION: 1. No abnormal marrow signal or cortical destruction to suggest an osteomyelitis within the right forefoot. 2. Diffuse subcutaneous and soft tissue edema seen throughout the right foot, unchanged. Per orthopedics At this time, there is not appear to be a need for surgical intervention. She is scheduled for a right pantalar fusion with a retrocalcaneal nail for November 17. We discussed that it be recommended that she remain nonweightbearing on the right lower extremity until that time to avoid a recurrent ulceration at the fifth metatarsal base. Continue antibiotic treatment per the hospitalist team. I also discussed with the patient that the cellulitis will need to be resolved if we were to proceed with her surgery in approximately 5 weeks. Surface culture obtained in ED - await results, clinic culture grew coag negative staph Wound care consult Arterial Duplex LE done 06/2021: IMPRESSION: While there is patent arterial flow bilaterally, there is significantly elevated flow velocity present at multiple sites bilaterally representing sites of focal stenosis. Consider consulting vascular if no improvement Eliquis resumed ESR 67, CRP ESRD on HD MWF consult [facility] Dr. Ambrocio continue phos lo and velphoro monitor mag, phos electrolytes stable, on room air Insulin-dependent T2DM Diabetic neuropathy Diabetic nephropathy Diabetic retinopathy last a1c 6.4 on 06/10/21 Current Hba1c 7.8% Lantus/novolog per protocol consult glycemic pharmacy continue gabapentin Anemia of renal disease hgb stable at 11.8 no s/ sx of bleeding HTN continue hydralazine, coreg DVT ppx: Eliquis Dispo: Tele, pt needs IV antibiotics, ortho eval, eventual ID consult, will remain hospitalized for few days at least PCP: Dr. Bronson FULL CODE Admission and Anticipated Discharge Date Admission Date: October 14, 2021 Subjective Patient seen in follow-up of her right foot infection, possible osteomyelitis She is currently sitting up in bed, in no acute distress Denies fevers, chills, chest pain, shortness of breath, abdomen pain, nausea vomiting MRI of right foot ordered, orthopedics consulted as well Review of Systems Review of Systems: All systems reviewed & are unremarkable except as noted in Subjective Physical Exam Physical Exam: Constitutional: WD/WN, NAD, sitting up in bed, pleasant, conversing easily Head: Normocephalic, Atraumatic Eyes: PERRL, EOMI, conjunctivae normal, anicteric sclerae ENMT: external ear and nose normal, oropharynx normal Neck:normal visual inspection, supple Respiratory: normal respiratory effort, lungs clear to auscultation, no wheeze, rales, rhonchi. Cardiovascular: RRR, no murmur, b/l lower ext erythema, R > L, R extends up prox tibial surface, warm to touch, healing wound to R lateral midfoot, no drainage, palpable pulses b/l, +2 Chest: normal inspection of chest, RACW port a cath noted, LUE AV fistula nonfunctional Abdomen: normal bowel sounds, soft, nontender Musculoskeletal:AROM x 4, R ankle with inversion Skin: no rashes, warm and dry normal turgor Neurologic: PERRL, EOMI, no face palsy, no dysarthria, moves all extremities Psychiatric: A+Ox3, euthymic affect Results & Data Results & Data ([facility]) Vital Signs (Past 12 Hours) Vital Signs Temp Pulse Pulse Pulse Resp BP Pulse Ox 10/15/21 02:30 98 10/15/21 02:12 36.9 C 64 18 150/73 H 89 L 10/15/21 01:38 71 154/74 H 10/14/21 22:17 72 10/14/21 21:58 36.7 C 77 16 178/74 H 91 10/14/21 21:00 79 18 180/90 H 93 Medications Administered Current Inpatient Medications Acetaminophen (Acetaminophen 325 Mg Tab) 650 mg PO Q4H PRN PRN Reason: Pain or Fever Stop: 11/13/21 21:51 Atorvastatin Calcium (Atorvastatin 40 Mg Tab) 40 mg PO QAM JOSE FRANCISCO Stop: 11/14/21 08:59 Last Admin: 10/15/21 08:05 Dose: 40 mg Documented by: Calcium Acetate (Calcium Acetate 667 Mg Cap/Tab) 1,334 mg PO BID@0800,1200 JOSE FRANCISCO Stop: 11/14/21 07:59 Last Admin: 10/15/21 08:06 Dose: 1,334 mg Documented by: Carvedilol (Carvedilol 12.5 Mg Tab) 12.5 mg PO BID JOSE FRANCISCO Stop: 11/13/21 21:51 Last Admin: 10/15/21 08:09 Dose: 12.5 mg Documented by: Dextrose (Dextrose 50% 50 Ml Syringe) 25 - 50 ml IV UD PRN; Protocol PRN Reason: Hypoglycemia Protocol Stop: 11/13/21 21:51 Dorzolamide/Timolol (Dorzolamide/Timolol 22.3/6.8mg/Ml 10 Ml Btl) 1 drops OP BID JOSE FRANCISCO Stop: 11/13/21 21:51 Last Admin: 10/15/21 08:06 Dose: 1 drops Documented by: Furosemide (Furosemide 40 Mg Tab) 40 mg PO [id number] JOSE FRANCISCO Stop: 11/13/21 21:51 Last Admin: 10/15/21 08:09 Dose: 40 mg Documented by: Gabapentin (Gabapentin 100 Mg Cap) 100 mg PO HS JOSE FRANCISCO Stop: 11/13/21 21:51 Last Admin: 10/14/21 23:12 Dose: 100 mg Documented by: Glucagon (Glucagon For Inj 1 Mg Vial) 1 mg SQ UD PRN; Protocol PRN Reason: Hypoglycemia Protocol Stop: 11/13/21 21:51 Glucose (Glucose 10 Tabs/Tube) 4 - 8 tabs PO UD PRN; Protocol PRN Reason: Hypoglycemia Protocol Stop: 11/13/21 21:51 Glucose (Glucose 40% Gel 15 Gm Tube) 15 - 30 gm PO UD PRN; Protocol PRN Reason: Hypoglycemia Protocol Stop: 11/13/21 21:51 Hydralazine HCl (Hydralazine Hcl 25 Mg Tab) 25 mg PO TID JOSE FRANCISCO Stop: 11/13/21 21:51 Last Admin: 10/15/21 08:09 Dose: 25 mg Documented by: Hydralazine HCl (Hydralazine Hcl 20 Mg/Ml Vial) 10 mg IV Q6 PRN PRN Reason: HypertensionSBP>180 OR DBP>100 Stop: 11/13/21 21:51 Ceftriaxone Sodium 1,000 mg/ (Dextrose) 60 mls @ 100 mls/hr IV Q24H JOSE FRANCISCO; Protocol Stop: 10/21/21 21:59 Last Infusion: 10/15/21 00:38 Dose: Infused Documented by: Heparin Sodium/Dextrose (Heparin Sodium/Dextrose) 25,000 units in 500 mls @ 14 mls/hr IV .Q24H JOSE FRANCISCO; Protocol Stop: 11/13/21 21:51 Last Admin: 10/14/21 23:21 Dose: 700 units/hr, 14 mls/hr Documented by: Insulin Aspart (Insulin Aspart Per Unit) 0 units SC Q4 JOSE FRANCISCO Stop: 11/14/21 00:59 Last Admin: 10/15/21 08:07 Dose: Not Given Documented by: Miscellaneous (Carbohydrates For Hypoglycemia ) 15 - 30 gm PO UD PRN PRN Reason: Hypoglycemia Protocol Stop: 11/13/21 21:51 Miscellaneous (Velphoro - Order Awaiting Action) 1 ea N/A QS JOSE FRANCISCO Stop: 11/14/21 00:00 Last Admin: 10/15/21 08:08 Dose: Not Given Documented by: Miscellaneous Information (Pharmacy Glycemic Mgmt Consult) 1 ea N/A UD PRN; Protocol PRN Reason: Consult Stop: 11/13/21 21:51 Miscellaneous Information (Vancomycin Consult Active) 1 ea N/A UD PRN PRN Reason: Consult Stop: 11/13/21 21:51 Multivitamins (Multivitamin Tab) 1 tab PO [facility] Stop: 11/14/21 08:59 Last Admin: 10/15/21 08:05 Dose: 1 tab Documented by: Ondansetron HCl (Ondansetron Inj 2 Mg/Ml 2 Ml Vial) 4 mg IV Q6H PRN PRN Reason: Nausea Stop: 11/13/21 21:51 Polyethylene Glycol (Polyethylene (Miralax) 17 Gm Pack) 17 gm PO DAILY PRN PRN Reason: Constipation Stop: 11/13/21 21:51 Vitamin B Complex/Folic Acid (Nephrocaps) 1 cap PO [facility] Stop: 11/14/21 08:59 Last Admin: 10/15/21 08:05 Dose: 1 cap Documented by: Vitamin D (Cholecalciferol 1,000 Units 25 Mcg Tab) 2,000 units PO [facility] Stop: 11/14/21 08:59 Last Admin: 10/15/21 08:06 Dose: 2,000 units Documented by: (1) Diabetic neuropathy Diabetes mellitus complication detail: with other neurological complication Diabetes mellitus type: type 2 Qualified Code(s): E11.49 - Type 2 diabetes mellitus with other diabetic neurological complication (2) Type 2 diabetes mellitus Chronic kidney disease stage: on chronic dialysis Diabetes mellitus complication detail: with chronic kidney disease Diabetes mellitus complication status: with kidney complications 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
[2021-10-15 08:14] LABS: Basophils # (auto) 0.04 K/uL (0-0.2); Basophils % (auto) 0.7 %; Eosinophils # (auto) 0.31 K/uL (0-0.5); Eosinophils % (auto) 5.1 %; Hematocrit (blood only) 35.6 % (37-47); Hemoglobin 10.9 g/dL (12.0-16.0); Immature Granulocytes # (auto) 0.01 K/uL (0.00-0.02); Immature Granulocytes % (auto) 0.2 %; Lymphocytes # (auto) 1.26 K/uL (1.2-3.4); Lymphocytes % (auto) 20.6 %; Mean Corpuscular Hemoglobin 31.1 pg (25-34); Mean Corpuscular Hgb Conc 30.6 g/dL (32-36); Mean Corpuscular Volume 101.7 fL (80-100); Mean Platelet Volume 10.9 fL (7.4-10.4); Monocytes # (auto) 0.56 K/uL (0.11-0.59); Monocytes % (auto) 9.2 %; Neutrophils # (auto) 3.94 K/uL (1.4-6.5); Neutrophils % (auto) 64.2 %; Platelet Count 143 K/uL (130-400); RDW Coefficient of Variation 15.4 % (11.5-14.5); RDW Standard Deviation 56.5 fL (36.4-46.3); White Blood Count 6.12 K/uL (4.8-10.8)
--- NOTE | 2021-10-15 08:38 | Nephrology Consultation ---
Date of Consultation October 15, 2021 Assessment & Plan (1) End stage renal failure on dialysis: * Orders for HD today entered into the EHR and reviewed with dialysis nurse * Outpatient HD: [facility], MWF x 3.5 hrs, F-180NR, 3K 2.5Ca, EDW 78.5, TDC * No heparin with treatment * Renal diet * Medications appropriately dosed for IHD. Check vanco level prior to dialysis. (2) Hypertension: * Volume status acceptable. * BP controlled. * Continue carvedilol, hydralazine and Furosemide (3) Anemia due to chronic kidney disease: * Mild, asymptomatic anemia * Epogen provided with HD - held today with Hgb 10.9 (4) Diabetic foot ulcer: * Check vanco level prior to HD today and dose post dialysis accordingly. Appreciate pharmacy consultation. * Ortho consult pending History of Present Illness Reason for Consultation: ESRD on HD Requesting Physician: oDnavan Syed MD Attending Physician: Donavan Syed MD History of Present Illness Jeri Riley is a 65 year-old female with ESRD. She is maintained on hemodialysis at [facility]. Jeri dialyzes MWF. Her last treatment was completed on October 13. She has been tolerating HD well. She dialyzes via a right IJ CVC. UF on October 13 2.8 L. She left dialysis at 78.9 kg. EDW 78.5 kg. ESRD attributed to DKD. 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 Initial course on HD was complicated by hypotension and syncope.Cardiac evaluation was negative for arrhythmia. Echocardiogram revealed normal LVEF.There have not been any recent complications with HD treatments. She is maintained on Epogen as an outpatient for anemia of CKD. Jeri was referred to [facility] for inpatient evaluation of persistent infection of the right foot. She has been started on antibiotic therapy with vancomycin and Rocephin. Allergies Allergy/AdvReac Type Severity Reaction Status Date / Time daptomycin AdvReac Intermediate Difficulty Verified 10/14/21 16:55 Breathing Home Medications Medication Instructions Recorded Confirmed Type cholecalciferol (vitamin D3) 50 2,000 unit PO QAM 07/07/18 10/14/21 History mcg (2,000 unit) capsule (Vitamin D3) coenzyme Q10 100 mg capsule (Co 100 mg PO QAM 11/18/20 10/14/21 History Q-10) furosemide 40 mg tablet 40 mg PO BID 11/18/20 10/14/21 History vitamin B complex and vitamin C 1 cap PO QAM #90 cap 11/24/20 10/14/21 Rx no.20-folic acid 1 mg capsule (Renal Caps) multivitamin 1 tab PO QAM 11/27/20 10/14/21 History insulin glargine 100 unit/mL (3 30 unit SUBCUT QAM 01/18/21 10/14/21 History mL) subcutaneous pen (Basaglar KwikPen U-100 Insulin) hydralazine 25 mg tablet 25 mg PO TID #90 tab 01/23/21 10/14/21 Rx carvedilol 12.5 mg tablet 12.5 mg PO BID #60 tab 01/24/21 10/14/21 Rx atorvastatin 40 mg tablet 40 mg PO QAM #30 tab 04/27/21 10/14/21 Rx gabapentin 100 mg capsule 100 mg PO HS 07/29/21 10/14/21 History (Neurontin) apixaban 5 mg tablet (Eliquis) 5 mg PO BID 08/02/21 10/14/21 History zinc 10 mg tablet 10 mg PO DAILY 08/24/21 10/14/21 History calcium acetate(phosphat bind) 667 1,334 mg PO BIDM 10/14/21 10/14/21 History mg capsule dorzolamide 22.3 mg-timolol 6.8 1 drp OPHTHALMIC (EYE) BID 10/14/21 10/14/21 History mg/mL eye drops sucroferric oxyhydroxide 500 mg 500 mg PO .QSUPPER 10/14/21 10/14/21 History chewable tablet (Velphoro) Patient History Medical History AV fistula left arm Chronic anemia Chronic diastolic CHF (congestive heart failure) EF 55-60% per 03/2021 ECHO Deep vein thrombosis LEG + ARM *DX DECEMBER 2020 (REASON FOR ELIQUIS) Diabetes mellitus, type 2 Hgb A1C 6.2 on 04/17/21 Diabetic neuropathy Diabetic retinopathy HAS HAD INJECTIONS TO RELEASE PRESSURE/BLEEDING Dialysis patient M/W/F ([facility]) USING SUBCLAVIAN PORT? *"NEAR NECK AREA WITH 2 LINES" Dyslipidemia End stage renal failure on dialysis History of CVA (cerebrovascular accident) Found incidentally on November 2020 brain MRI- started on ASA and Plavix History of depression Hx of diabetic foot ulcer "ALL HEALED" Hx of osteomyelitis RT FOOT Hypertension Mild depression On home oxygen therapy CURRENTLY NOT USING/WAS USING WITH ACTIVTY BUT CURRENTLY IN WC Posterior capsular opacification Syncope and collapse - Syncope vs possible cardiac arrest initially when admitted to [facility] 12/2020 (had similar admissions in November 2020- felt hypotension during dialysis) - Per 01/24/21 Discharge Summary- episode occurred during dialysis- pt was unresponsive and cyanotic- chest compressions done - During hospital stay troponins trended but felt secondary to renal disease and recent chest compressions (AED applied with no shock indicated- per cardio consult- suggesting loss of consciousness and not secondary to VT or VF) -Considering transient hypotension from fluid shifts during HD sessions have contributed to unresponsive episodes- made decision to hold all meds prior to dialysis -Per cardio consult 01/23/21- possibly related to volume shifts- stress test negative in November; recent EKG and ECHO did not suggest acute ischemia event. Telemetry on admission without arrhythmias -Pt admitted 04/2021 for DM ulcer/osteomyelitis- per 04/27/21 discharge- pt had recurrent syncope after dialysis 04/16/21 (neuro imaging showed no issue s, cardio felt no further testing necessary) Surgical History History of ankle surgery RT (HARDWARE INTACT) History of appendectomy History of cataract surgery RT/LEFT History of dilatation and curettage History of esophagogastroduodenoscopy (EGD) History of surgery Left arm AVF creation (08/24/21): MAC at [facility] Family History Sister Ovarian cancer Brother Hypertension Family history of diabetes mellitus Other No family history of adverse response to anesthesia Social History Smoking Status: Never smoker Second Hand Exposure: No; Hx Alcohol Use: No Hx Substance Use: No Preferred Language: Libyan 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: Effective Financial Compliance Examiner Required: No Beliefs That Will Affect Care: None marital status: Current Living Situation: Alone Current Living Situation Comment: Living in a handycap appartment current occupational status: retired How many Children do You have: 1 Other Information That Helps Us Care for You: No Feels Safe at Home: Yes Safety Concerns: Feels Safe At This Time Diet Comment: stated low salt, low carb during the past year weight has: increased > 10 lbs Assistive Devices: Brace/Splint/Immobilizer, Walker and Wheelchair Review of Systems Constitutional: no weight loss, no weight gain and no problem reported Eyes: no problem reported Ear, Nose, Mouth, Throat: no problem reported Respiratory: no problem reported Cardiovascular: no problem reported Gastrointestinal: no problem reported Musculoskeletal: no problem reported Integumentary: no problem reported Neurologic: no problem reported Psychiatric: no problem reported Endocrine: no problem reported Hematologic / Lymphatic: no problem reported Physical Exam Constitutional: well developed; no acute distress Eyes: no scleral abnormality and no corneal abnormality ENMT: Mouth: no oral mucosal abnormality and oral mucous membranes not dry Neck: normal visual inspection and trachea midline RIJ TDC Respiratory: normal respiratory effort Auscultation: lungs clear to auscultation bilaterally Cardiovascular: Rate/Rhythm: regular rate Heart Sounds: normal S1 and normal S2 Extremities: + pedal edema Musculoskeletal: Extremities: no cyanosis and no clubbing Skin: normal turgor; no lesions Neurologic: Motor/Sensory: no tremor and no asterixis Psychiatric: Orientation: alert and oriented x 3 Results & Data ([facility]) Vital Signs (Past 12 Hours) Vital Signs Temp Pulse Pulse Pulse Resp BP Pulse Ox 10/15/21 02:30 98 10/15/21 02:12 36.9 C 64 18 150/73 H 89 L 10/15/21 01:38 71 154/74 H 10/14/21 22:17 72 10/14/21 21:58 36.7 C 77 16 178/74 H 91 10/14/21 21:00 79 18 180/90 H 93 Laboratory Results Laboratory Results - last 24 hr 10/14/21 10/14/21 10/14/21 14:50 14:50 14:50 WBC 6.38 RBC 3.76 L Hgb 11.8 L Hct 38.2 MCV 101.6 H MCH 31.4 MCHC 30.9 L RDW Std Deviation 57.1 H RDW Coeff of Rico 15.2 H Plt Count 188 MPV 10.7 H Immature Gran % (Auto) 0.6 Neut % (Auto) 61.5 Lymph % (Auto) 22.1 Young % (Auto) 8.5 Eos % (Auto) 6.4 Baso % (Auto) 0.9 Neut # (Auto) 3.92 Lymph # (Auto) 1.41 Young # (Auto) 0.54 Eos # (Auto) 0.41 Baso # (Auto) 0.06 Immature Gran # (Auto) 0.04 H Absolute Nucleated RBC 0.05 H Nucleated RBC % (auto) 0.8 Neutrophils % (Manual) Band Neutrophils % Lymphocytes % (Manual) Prolymphocyte % Reactive Lymphs % (Man) Monocytes % (Manual) Eosinophils % (Manual) Basophils % (Manual) Metamyelocytes % (Man) Myelocytes % (Man) Promyelocytes % (Man) Blast Cells % (Manual) Plasma Cell % (Manual) Other Cells % Nucleated RBC % Neutrophils # (Manual) Band Neutrophils # Total Absolute Neuts Lymphocytes # (Manual) Prolymphocyte # Reactive Lymphs # Total Abs Lymphocytes Monocytes # (Manual) Eosinophils # (Manual) Basophils # (Manual) Metamyelocytes # (Man) Myelocytes # (Manual) Promyelocytes # (Man) Blast Cells # (Man) Plasma Cell # (Manual) Other Cells # Nucleated RBCs # (Man) Hypersegmented Neuts Hyposegmented Neuts Hypogranular Neuts Large Granular Lymphs # Lrg Granular Lymphs Hairy Cells Smudge Cells Toxic Granulation Toxic Vacuolation Dohle Bodies Shelbie Rods Platelet Estimate Hypogranular Platelets Clumped Platelets Giant Platelets Platelet Satelliting RBC Morphology Polychromasia Hypochromasia Poikilocytosis Basophilic Stippling Anisocytosis Microcytosis Macrocytosis Spherocytes Pappenheimer Bodies Sickle Cells Target Cells Tear Drop Cells Ovalocytes Stomatocytes Santo-Hoyt Bodies Echinocytes Acanthocytes (Spur) Rouleaux RBC Agglutinates Schistocytes RBC Morph Comment ESR 67 H Sezary Cell PT 10.8 INR 1.0 APTT PTT Ratio Sodium Potassium Chloride Carbon Dioxide Anion Gap BUN Creatinine Est Cr Clr Drug Dosing Est GFR ( Amer) Est GFR (Non-Af Amer) BUN/Creatinine Ratio Glucose POC Glucose Estimat Average Glucose Hemoglobin A1c Lactate Calcium Phosphorus Magnesium Total Bilirubin AST ALT Alkaline Phosphatase C-Reactive Protein Total Protein Albumin Globulin Albumin/Globulin Ratio Procalcitonin Nasal Screen MRSA (PCR) Random Vancomycin SARS-CoV-2, RNA, NAAT 10/14/21 10/14/21 10/14/21 14:50 14:50 14:50 WBC RBC Hgb Hct MCV MCH MCHC RDW Std Deviation RDW Coeff of Rico Plt Count MPV Immature Gran % (Auto) Neut % (Auto) Lymph % (Auto) Young % (Auto) Eos % (Auto) Baso % (Auto) Neut # (Auto) Lymph # (Auto) Young # (Auto) Eos # (Auto) Baso # (Auto) Immature Gran # (Auto) Absolute Nucleated RBC Nucleated RBC % (auto) Neutrophils % (Manual) Band Neutrophils % Lymphocytes % (Manual) Prolymphocyte % Reactive Lymphs % (Man) Monocytes % (Manual) Eosinophils % (Manual) Basophils % (Manual) Metamyelocytes % (Man) Myelocytes % (Man) Promyelocytes % (Man) Blast Cells % (Manual) Plasma Cell % (Manual) Other Cells % Nucleated RBC % Neutrophils # (Manual) Band Neutrophils # Total Absolute Neuts Lymphocytes # (Manual) Prolymphocyte # Reactive Lymphs # Total Abs Lymphocytes Monocytes # (Manual) Eosinophils # (Manual) Basophils # (Manual) Metamyelocytes # (Man) Myelocytes # (Manual) Promyelocytes # (Man) Blast Cells # (Man) Plasma Cell # (Manual) Other Cells # Nucleated RBCs # (Man) Hypersegmented Neuts Hyposegmented Neuts Hypogranular Neuts Large Granular Lymphs # Lrg Granular Lymphs Hairy Cells Smudge Cells Toxic Granulation Toxic Vacuolation Dohle Bodies Shelbie Rods Platelet Estimate Hypogranular Platelets Clumped Platelets Giant Platelets Platelet Satelliting RBC Morphology Polychromasia Hypochromasia Poikilocytosis Basophilic Stippling Anisocytosis Microcytosis Macrocytosis Spherocytes Pappenheimer Bodies Sickle Cells Target Cells Tear Drop Cells Ovalocytes Stomatocytes Santo-Hoyt Bodies Echinocytes Acanthocytes (Spur) Rouleaux RBC Agglutinates Schistocytes RBC Morph Comment ESR Sezary Cell PT INR APTT PTT Ratio Sodium 138 Potassium 5.0 Chloride 101 Carbon Dioxide 28 Anion Gap 9 BUN 42 H Creatinine 5.22 H* Est Cr Clr Drug Dosing 10.0 Est GFR ( Amer) 9.2 Est GFR (Non-Af Amer) 8.0 BUN/Creatinine Ratio 8.0 L Glucose 267 H POC Glucose Estimat Average Glucose Hemoglobin A1c Lactate 1.0 Calcium 9.9 Phosphorus Magnesium Total Bilirubin 0.5 AST 17 ALT 14 Alkaline Phosphatase 74 C-Reactive Protein 5.04 H Total Protein 7.8 Albumin 4.1 Globulin 3.7 Albumin/Globulin Ratio 1.1 Procalcitonin 1.07 H Nasal Screen MRSA (PCR) Random Vancomycin SARS-CoV-2, RNA, NAAT 10/14/21 10/14/21 10/14/21 15:06 21:52 22:15 WBC RBC Hgb Hct MCV MCH MCHC RDW Std Deviation RDW Coeff of Rico Plt Count MPV Immature Gran % (Auto) Neut % (Auto) Lymph % (Auto) Young % (Auto) Eos % (Auto) Baso % (Auto) Neut # (Auto) Lymph # (Auto) Young # (Auto) Eos # (Auto) Baso # (Auto) Immature Gran # (Auto) Absolute Nucleated RBC Nucleated RBC % (auto) Neutrophils % (Manual) Band Neutrophils % Lymphocytes % (Manual) Prolymphocyte % Reactive Lymphs % (Man) Monocytes % (Manual) Eosinophils % (Manual) Basophils % (Manual) Metamyelocytes % (Man) Myelocytes % (Man) Promyelocytes % (Man) Blast Cells % (Manual) Plasma Cell % (Manual) Other Cells % Nucleated RBC % Neutrophils # (Manual) Band Neutrophils # Total Absolute Neuts Lymphocytes # (Manual) Prolymphocyte # Reactive Lymphs # Total Abs Lymphocytes Monocytes # (Manual) Eosinophils # (Manual) Basophils # (Manual) Metamyelocytes # (Man) Myelocytes # (Manual) Promyelocytes # (Man) Blast Cells # (Man) Plasma Cell # (Manual) Other Cells # Nucleated RBCs # (Man) Hypersegmented Neuts Hyposegmented Neuts Hypogranular Neuts Large Granular Lymphs # Lrg Granular Lymphs Hairy Cells Smudge Cells Toxic Granulation Toxic Vacuolation Dohle Bodies Shelbie Rods Platelet Estimate Hypogranular Platelets Clumped Platelets Giant Platelets Platelet Satelliting RBC Morphology Polychromasia Hypochromasia Poikilocytosis Basophilic Stippling Anisocytosis Microcytosis Macrocytosis Spherocytes Pappenheimer Bodies Sickle Cells Target Cells Tear Drop Cells Ovalocytes Stomatocytes Santo-Hoyt Bodies Echinocytes Acanthocytes (Spur) Rouleaux RBC Agglutinates Schistocytes RBC Morph Comment ESR Sezary Cell PT INR APTT 29.2 PTT Ratio 1.1 Sodium Potassium Chloride Carbon Dioxide Anion Gap BUN Creatinine Est Cr Clr Drug Dosing Est GFR ( Amer) Est GFR (Non-Af Amer) BUN/Creatinine Ratio Glucose POC Glucose 237 H Estimat Average Glucose Hemoglobin A1c Lactate Calcium Phosphorus Magnesium Total Bilirubin AST ALT Alkaline Phosphatase C-Reactive Protein Total Protein Albumin Globulin Albumin/Globulin Ratio Procalcitonin Nasal Screen MRSA (PCR) Random Vancomycin SARS-CoV-2, RNA, NAAT NEGATIVE 10/15/21 10/15/21 10/15/21 04:10 06:49 06:49 WBC Cancelled RBC Cancelled Hgb Cancelled Hct Cancelled MCV Cancelled MCH Cancelled MCHC Cancelled RDW Std Deviation Cancelled RDW Coeff of Rico Cancelled Plt Count Cancelled MPV Cancelled Immature Gran % (Auto) Cancelled Neut % (Auto) Cancelled Lymph % (Auto) Cancelled Young % (Auto) Cancelled Eos % (Auto) Cancelled Baso % (Auto) Cancelled Neut # (Auto) Cancelled Lymph # (Auto) Cancelled Young # (Auto) Cancelled Eos # (Auto) Cancelled Baso # (Auto) Cancelled Immature Gran # (Auto) Cancelled Absolute Nucleated RBC Cancelled Nucleated RBC % (auto) Cancelled Neutrophils % (Manual) Cancelled Band Neutrophils % Cancelled Lymphocytes % (Manual) Cancelled Prolymphocyte % Cancelled Reactive Lymphs % (Man) Cancelled Monocytes % (Manual) Cancelled Eosinophils % (Manual) Cancelled Basophils % (Manual) Cancelled Metamyelocytes % (Man) Cancelled Myelocytes % (Man) Cancelled Promyelocytes % (Man) Cancelled Blast Cells % (Manual) Cancelled Plasma Cell % (Manual) Cancelled Other Cells % Cancelled Nucleated RBC % Cancelled Neutrophils # (Manual) Cancelled Band Neutrophils # Cancelled Total Absolute Neuts Cancelled Lymphocytes # (Manual) Cancelled Prolymphocyte # Cancelled Reactive Lymphs # Cancelled Total Abs Lymphocytes Cancelled Monocytes # (Manual) Cancelled Eosinophils # (Manual) Cancelled Basophils # (Manual) Cancelled Metamyelocytes # (Man) Cancelled Myelocytes # (Manual) Cancelled Promyelocytes # (Man) Cancelled Blast Cells # (Man) Cancelled Plasma Cell # (Manual) Cancelled Other Cells # Cancelled Nucleated RBCs # (Man) Cancelled Hypersegmented Neuts Cancelled Hyposegmented Neuts Cancelled Hypogranular Neuts Cancelled Large Granular Lymphs Cancelled # Lrg Granular Lymphs Cancelled Hairy Cells Cancelled Smudge Cells Cancelled Toxic Granulation Cancelled Toxic Vacuolation Cancelled Dohle Bodies Cancelled Shelbie Rods Cancelled Platelet Estimate Cancelled Hypogranular Platelets Cancelled Clumped Platelets Cancelled Giant Platelets Cancelled Platelet Satelliting Cancelled RBC Morphology Cancelled Polychromasia Cancelled Hypochromasia Cancelled Poikilocytosis Cancelled Basophilic Stippling Cancelled Anisocytosis Cancelled Microcytosis Cancelled Macrocytosis Cancelled Spherocytes Cancelled Pappenheimer Bodies Cancelled Sickle Cells Cancelled Target Cells Cancelled Tear Drop Cells Cancelled Ovalocytes Cancelled Stomatocytes Cancelled Santo-Hoyt Bodies Cancelled Echinocytes Cancelled Acanthocytes (Spur) Cancelled Rouleaux Cancelled RBC Agglutinates Cancelled Schistocytes Cancelled RBC Morph Comment Cancelled ESR Sezary Cell Cancelled PT INR APTT PTT Ratio Sodium 139 Potassium 5.2 H Chloride 107 Carbon Dioxide 23 Anion Gap 9 BUN 54 H Creatinine 6.19 H* D Est Cr Clr Drug Dosing 8.4 Est GFR ( Amer) 7.5 Est GFR (Non-Af Amer) 6.5 BUN/Creatinine Ratio 8.7 L Glucose 155 H POC Glucose 199 H Estimat Average Glucose Hemoglobin A1c Lactate Calcium 9.2 Phosphorus 5.4 H Magnesium 2.3 Total Bilirubin 0.3 AST 16 ALT 12 Alkaline Phosphatase 62 C-Reactive Protein Total Protein 6.9 Albumin 3.7 Globulin 3.2 Albumin/Globulin Ratio 1.2 Procalcitonin Nasal Screen MRSA (PCR) Random Vancomycin SARS-CoV-2, RNA, NAAT 10/15/21 10/15/21 10/15/21 06:49 06:49 06:49 WBC RBC Hgb Hct MCV MCH MCHC RDW Std Deviation RDW Coeff of Rico Plt Count MPV Immature Gran % (Auto) Neut % (Auto) Lymph % (Auto) Young % (Auto) Eos % (Auto) Baso % (Auto) Neut # (Auto) Lymph # (Auto) Young # (Auto) Eos # (Auto) Baso # (Auto) Immature Gran # (Auto) Absolute Nucleated RBC Nucleated RBC % (auto) Neutrophils % (Manual) Band Neutrophils % Lymphocytes % (Manual) Prolymphocyte % Reactive Lymphs % (Man) Monocytes % (Manual) Eosinophils % (Manual) Basophils % (Manual) Metamyelocytes % (Man) Myelocytes % (Man) Promyelocytes % (Man) Blast Cells % (Manual) Plasma Cell % (Manual) Other Cells % Nucleated RBC % Neutrophils # (Manual) Band Neutrophils # Total Absolute Neuts Lymphocytes # (Manual) Prolymphocyte # Reactive Lymphs # Total Abs Lymphocytes Monocytes # (Manual) Eosinophils # (Manual) Basophils # (Manual) Metamyelocytes # (Man) Myelocytes # (Manual) Promyelocytes # (Man) Blast Cells # (Man) Plasma Cell # (Manual) Other Cells # Nucleated RBCs # (Man) Hypersegmented Neuts Hyposegmented Neuts Hypogranular Neuts Large Granular Lymphs # Lrg Granular Lymphs Hairy Cells Smudge Cells Toxic Granulation Toxic Vacuolation Dohle Bodies Shelbie Rods Platelet Estimate Hypogranular Platelets Clumped Platelets Giant Platelets Platelet Satelliting RBC Morphology Polychromasia Hypochromasia Poikilocytosis Basophilic Stippling Anisocytosis Microcytosis Macrocytosis Spherocytes Pappenheimer Bodies Sickle Cells Target Cells Tear Drop Cells Ovalocytes Stomatocytes Santo-Hoyt Bodies Echinocytes Acanthocytes (Spur) Rouleaux RBC Agglutinates Schistocytes RBC Morph Comment ESR Sezary Cell PT INR APTT 32.2 H PTT Ratio 1.2 Sodium Potassium Chloride Carbon Dioxide Anion Gap BUN Creatinine Est Cr Clr Drug Dosing Est GFR ( Amer) Est GFR (Non-Af Amer) BUN/Creatinine Ratio Glucose POC Glucose Estimat Average Glucose Cancelled Hemoglobin A1c Cancelled Lactate Calcium Phosphorus Magnesium Total Bilirubin AST ALT Alkaline Phosphatase C-Reactive Protein Total Protein Albumin Globulin Albumin/Globulin Ratio Procalcitonin Nasal Screen MRSA (PCR) Random Vancomycin 18.2 SARS-CoV-2, RNA, NAAT 10/15/21 10/15/21 10/15/21 07:43 07:53 07:53 WBC 6.12 RBC 3.50 L Hgb 10.9 L Hct 35.6 L MCV 101.7 H MCH 31.1 MCHC 30.6 L RDW Std Deviation 56.5 H RDW Coeff of Rico 15.4 H Plt Count 143 MPV 10.9 H Immature Gran % (Auto) 0.2 Neut % (Auto) 64.2 Lymph % (Auto) 20.6 Young % (Auto) 9.2 Eos % (Auto) 5.1 Baso % (Auto) 0.7 Neut # (Auto) 3.94 Lymph # (Auto) 1.26 Young # (Auto) 0.56 Eos # (Auto) 0.31 Baso # (Auto) 0.04 Immature Gran # (Auto) 0.01 Absolute Nucleated RBC Nucleated RBC % (auto) Neutrophils % (Manual) Band Neutrophils % Lymphocytes % (Manual) Prolymphocyte % Reactive Lymphs % (Man) Monocytes % (Manual) Eosinophils % (Manual) Basophils % (Manual) Metamyelocytes % (Man) Myelocytes % (Man) Promyelocytes % (Man) Blast Cells % (Manual) Plasma Cell % (Manual) Other Cells % Nucleated RBC % Neutrophils # (Manual) Band Neutrophils # Total Absolute Neuts Lymphocytes # (Manual) Prolymphocyte # Reactive Lymphs # Total Abs Lymphocytes Monocytes # (Manual) Eosinophils # (Manual) Basophils # (Manual) Metamyelocytes # (Man) Myelocytes # (Manual) Promyelocytes # (Man) Blast Cells # (Man) Plasma Cell # (Manual) Other Cells # Nucleated RBCs # (Man) Hypersegmented Neuts Hyposegmented Neuts Hypogranular Neuts Large Granular Lymphs # Lrg Granular Lymphs Hairy Cells Smudge Cells Toxic Granulation Toxic Vacuolation Dohle Bodies Shelbie Rods Platelet Estimate Hypogranular Platelets Clumped Platelets Giant Platelets Platelet Satelliting RBC Morphology Polychromasia Hypochromasia Poikilocytosis Basophilic Stippling Anisocytosis Microcytosis Macrocytosis Spherocytes Pappenheimer Bodies Sickle Cells Target Cells Tear Drop Cells Ovalocytes Stomatocytes [place]anto-[place]oyt Bodies Echinocytes Acanthocytes (Spur) Rouleaux RBC Agglutinates Schistocytes RBC Morph Comment ESR Sezary Cell PT INR APTT PTT Ratio Sodium Potassium Chloride Carbon Dioxide Anion Gap BUN Creatinine Est Cr Clr Drug Dosing Est GFR ( Amer) Est GFR (Non-Af Amer) BUN/Creatinine Ratio Glucose POC Glucose 131 H Estimat Average Glucose Pending Hemoglobin A1c Pending Lactate Calcium Phosphorus Magnesium Total Bilirubin AST ALT Alkaline Phosphatase C-Reactive Protein Total Protein Albumin Globulin Albumin/Globulin Ratio Procalcitonin Nasal Screen MRSA (PCR) Random Vancomycin SARS-CoV-2, RNA, NAAT 10/15/21 Unknown WBC RBC Hgb Hct MCV MCH MCHC RDW Std Deviation RDW Coeff of Rico Plt Count MPV Immature Gran % (Auto) Neut % (Auto) Lymph % (Auto) Young % (Auto) Eos % (Auto) Baso % (Auto) Neut # (Auto) Lymph # (Auto) Young # (Auto) Eos # (Auto) Baso # (Auto) Immature Gran # (Auto) Absolute Nucleated RBC Nucleated RBC % (auto) Neutrophils % (Manual) Band Neutrophils % Lymphocytes % (Manual) Prolymphocyte % Reactive Lymphs % (Man) Monocytes % (Manual) Eosinophils % (Manual) Basophils % (Manual) Metamyelocytes % (Man) Myelocytes % (Man) Promyelocytes % (Man) Blast Cells % (Manual) Plasma Cell % (Manual) Other Cells % Nucleated RBC % Neutrophils # (Manual) Band Neutrophils # Total Absolute Neuts Lymphocytes # (Manual) Prolymphocyte # Reactive Lymphs # Total Abs Lymphocytes Monocytes # (Manual) Eosinophils # (Manual) Basophils # (Manual) Metamyelocytes # (Man) Myelocytes # (Manual) Promyelocytes # (Man) Blast Cells # (Man) Plasma Cell # (Manual) Other Cells # Nucleated RBCs # (Man) Hypersegmented Neuts Hyposegmented Neuts Hypogranular Neuts Large Granular Lymphs # Lrg Granular Lymphs Hairy Cells Smudge Cells Toxic Granulation Toxic Vacuolation Dohle Bodies Shelbie Rods Platelet Estimate Hypogranular Platelets Clumped Platelets Giant Platelets Platelet Satelliting RBC Morphology Polychromasia Hypochromasia Poikilocytosis Basophilic Stippling Anisocytosis Microcytosis Macrocytosis Spherocytes Pappenheimer Bodies Sickle Cells Target Cells Tear Drop Cells Ovalocytes Stomatocytes [place]anto-[place]t Bodies Echinocytes Acanthocytes (Spur) Rouleaux RBC Agglutinates Schistocytes RBC Morph Comment ESR Sezary Cell PT INR APTT PTT Ratio Sodium Potassium Chloride Carbon Dioxide Anion Gap BUN Creatinine Est Cr Clr Drug Dosing Est GFR ( Amer) Est GFR (Non-Af Amer) BUN/Creatinine Ratio Glucose POC Glucose Estimat Average Glucose Hemoglobin A1c Lactate Calcium Phosphorus Magnesium Total Bilirubin AST ALT Alkaline Phosphatase C-Reactive Protein Total Protein Albumin Globulin Albumin/Globulin Ratio Procalcitonin Nasal Screen MRSA (PCR) Negative Random Vancomycin SARS-CoV-2, RNA, NAAT PG Care Time/CCT Total # of Minutes Spent Total Time Spent with Patient: Total time spent is greater than 50% in coordination of care (as documented) at patient's floor/unit and/or counseling patient: Coding Level of Care Code 87776 Inpt Consult Level 4 Diagnoses End stage renal failure on dialysis N18.6; Z99.2 Hypertension I10 Hypertension type: unspecified Anemia due to chronic kidney disease N18.9; D63.1 Diabetic foot ulcer E11.621; L97.509 (1) Hypertension Hypertension type: unspecified Qualified Code(s): I10 - Essential (primary) hypertension
[2021-10-15 08:56] LABS: Estimated Average Glucose 177 mg/dl; Hemoglobin A1C 7.8 % (4.5-5.6)
--- NOTE | 2021-10-15 08:56 | Magnetic Resonance Report ---
MR foot RT w/o con HISTORY: Right foot and ankle redness. History of osteomyelitis. Evaluate for osteomyelitis. TECHNIQUE: Multiplanar multisequence MRI of the right forefoot was performed without contrast accordi ng to standard departmental protocol. COMPARISON STUDY: Right foot MRI 04/14/2021. Right foot radiograph 10/14/2021. FINDINGS: There is a normal marrow signal intensity seen throughout the visualized osseous structures of the right foot. The marrow edema at the base of the fifth metatarsal has resolved in the interval . No areas of cortical destruction to suggest an osteomyelitis. No fracture or dislocation. The Lisfr anc joint is intact. Extensive subcutaneous and deep soft tissue edema seen throughout the foot, unch anged. There is also edema within the plantar muscles which is also unchanged. This may represent chr onic denervation injury. No loculated fluid collections to suggest an abscess. No joint effusions. Th e flexor and extensor tendons appear intact. Mild degenerative changes again noted within the foot. IMPRESSION: 1. No abnormal marrow signal or cortical destruction to suggest an osteomyelitis within the right for efoot. 2. Diffuse subcutaneous and soft tissue edema seen throughout the right foot, unchanged. ACT 112: Negative or not required by law. Electronically signed by: Duane Baeza M.D. 10/15/2021 8:53 AM
[2021-10-15] MEDS ORDERED: NON-FORMULARY MEDICATION (Zinc 10 mg Tablet) PO SCH (09:00)
[2021-10-15] MEDS ORDERED: INSULIN GLARGINE SOLOSTAR 100 UNITS/ML 3 ML PEN SC SCH (09:00)
[2021-10-15] MEDS ORDERED: NON-FORMULARY MEDICATION (Coenzyme Q10 [Co Q-10] 100 mg Capsule) PO SCH (09:00)
[2021-10-15] MEDS: HEPARIN SODIUM/DEXTROSE 25,000 UNITS/500 ML BAG IV SCH (09:24)
[2021-10-15] MEDS ORDERED: HEPARIN SOD (PORCINE) 1000 UNIT/ML IV ONE (09:30)
--- NOTE | 2021-10-15 14:39 | Pharmacy Report ---
Pharmacy [facility] Short Note - Date of Service October 15, 2021 - Assessment & Plan Assessment 66 year old F receiving Vancomycin and Rocephin for treatment of R foot cellulitis. Pertinent microbiologic data includes: Negative MRSA nasal swab, Blood and foot cultures pending. Plan Vancomycin * Random vancomycin level this AM 18 mcg/ml - HD ordered for today anticipate ~30% removal of drug. Level likely will drop <15, therefore will redose * Will give 750 mg x 1 of vancomycin post dialysis today to maintain estimated peak of ~30 * Patient typically on MWF schedule, not sure if that is the plan for HD while admitted - will follow Pharmacy will continue to follow and will adjust dose/frequency as necessary. Thank you.
--- NOTE | 2021-10-15 15:36 | Electrocardiogram Report ---
Test Reason : Blood Pressure : / mmHG Vent. Rate : 070 BPM Atrial Rate : 070 BPM P-R Int : 164 ms QRS Dur : 076 ms QT Int : 426 ms P-R-T Axes : 056 -04 058 degrees QTc Int : 460 ms Normal sinus rhythm Nonspecific T wave abnormality Abnormal ECG When compared with ECG of 22-APR-2021 22:36, Nonspecific T wave abnormality no longer evident in Anterior leads Confirmed by Byron Gonzalez ([id number]) on 10/15/2021 3:36:19 PM Referred By: REFERRED SELF Confirmed By:Byron Gonzalez
[2021-10-15] MEDS ORDERED: VANCOMYCIN HCL 750 MG in SODIUM CHLORIDE 0.9% 250 ML IV ONE (16:00)
--- NOTE | 2021-10-15 16:20 | Orthopedic Consultation ---
Date of Consultation October 15, 2021 Assessment & Plan (1) Cellulitis of foot, right: The MRI results and exam are reviewed with the patient. At this time, there is not appear to be a need for surgical intervention. She is scheduled for a right pantalar fusion with a retrocalcaneal nail for November 17. We discussed that it be recommended that she remain nonweightbearing on the right lower extremity until that time to avoid a recurrent ulceration at the fifth metatarsal base. Continue antibiotic treatment per the hospitalist team. I also discussed with the patient that the cellulitis will need to be resolved if we were to proceed with her surgery in approximately 5 weeks. The patient's regular diet may be restarted. She may follow-up with Dr. Acharya's team as scheduled. Thank you for the consultation. (2) Equinus contracture of right ankle: History of Present Illness Reason for Consultation: Right ankle cellulitis and previous lateral foot ulcer Attending Physician: Donavan Syed MD History of Present Illness This is a patient who is well-known to Dr. Acharya's clinic. She previously had undergone an ORIF of a right bimalleolar ankle fracture. The fracture is healed well postoperatively however the patient developed an equinus contracture of the right ankle and foot. More recently, she been treated for ulcerations at the fifth metatarsal base that have occurred secondary to the contractures. Previously, there was concern of osteomyelitis of the fifth metatarsal base. The patient states she is scheduled for a right pantalar fusion with a retrocalcaneal nail for November 17 of this year. We currently being consulted for evaluation for possible surgical treatment for the patient's current cellulitis. Allergies Allergy/AdvReac Type Severity Reaction Status Date / Time daptomycin AdvReac Intermediate Difficulty Verified 10/14/21 16:55 Breathing Home Medications Medication Instructions Recorded Confirmed Type cholecalciferol (vitamin D3) 50 2,000 unit PO QAM 07/07/18 10/14/21 History mcg (2,000 unit) capsule (Vitamin D3) coenzyme Q10 100 mg capsule (Co 100 mg PO QAM 11/18/20 10/14/21 History Q-10) furosemide 40 mg tablet 40 mg PO BID 11/18/20 10/14/21 History vitamin B complex and vitamin C 1 cap PO QAM #90 cap 11/24/20 10/14/21 Rx no.20-folic acid 1 mg capsule (Renal Caps) multivitamin 1 tab PO QAM 11/27/20 10/14/21 History insulin glargine 100 unit/mL (3 30 unit SUBCUT QAM 01/18/21 10/14/21 History mL) subcutaneous pen (Basaglar KwikPen U-100 Insulin) hydralazine 25 mg tablet 25 mg PO TID #90 tab 01/23/21 10/14/21 Rx carvedilol 12.5 mg tablet 12.5 mg PO BID #60 tab 01/24/21 10/14/21 Rx atorvastatin 40 mg tablet 40 mg PO QAM #30 tab 04/27/21 10/14/21 Rx gabapentin 100 mg capsule 100 mg PO HS 07/29/21 10/14/21 History (Neurontin) apixaban 5 mg tablet (Eliquis) 5 mg PO BID 08/02/21 10/14/21 History zinc 10 mg tablet 10 mg PO DAILY 08/24/21 10/14/21 History calcium acetate(phosphat bind) 667 1,334 mg PO BIDM 10/14/21 10/14/21 History mg capsule dorzolamide 22.3 mg-timolol 6.8 1 drp OPHTHALMIC (EYE) BID 10/14/21 10/14/21 History mg/mL eye drops sucroferric oxyhydroxide 500 mg 500 mg PO .QSUPPER 10/14/21 10/14/21 History chewable tablet (Velphoro) Patient History Medical History AV fistula left arm Chronic anemia Chronic diastolic CHF (congestive heart failure) EF 55-60% per 03/2021 ECHO Deep vein thrombosis LEG + ARM *DX DECEMBER 2020 (REASON FOR ELIQUIS) Diabetes mellitus, type 2 Hgb A1C 6.2 on 04/17/21 Diabetic neuropathy Diabetic retinopathy HAS HAD INJECTIONS TO RELEASE PRESSURE/BLEEDING Dialysis patient M/W/F ([facility]) USING SUBCLAVIAN PORT? *"NEAR NECK AREA WITH 2 LINES" Dyslipidemia End stage renal failure on dialysis History of CVA (cerebrovascular accident) Found incidentally on November 2020 brain MRI- started on ASA and Plavix History of depression Hx of diabetic foot ulcer "ALL HEALED" Hx of osteomyelitis RT FOOT Hypertension Mild depression On home oxygen therapy CURRENTLY NOT USING/WAS USING WITH ACTIVTY BUT CURRENTLY IN WC Posterior capsular opacification Syncope and collapse - Syncope vs possible cardiac arrest initially when admitted to [facility] 12/2020 (had similar admissions in November 2020- felt hypotension during dialysis) - Per 01/24/21 Discharge Summary- episode occurred during dialysis- pt was unresponsive and cyanotic- chest compressions done - During hospital stay troponins trended but felt secondary to renal disease and recent chest compressions (AED applied with no shock indicated- per cardio consult- suggesting loss of consciousness and not secondary to VT or VF) -Considering transient hypotension from fluid shifts during HD sessions have contributed to unresponsive episodes- made decision to hold all meds prior to dialysis -Per cardio consult 01/23/21- possibly related to volume shifts- stress test negative in November; recent EKG and ECHO did not suggest acute ischemia event. Telemetry on admission without arrhythmias -Pt admitted 04/2021 for DM ulcer/osteomyelitis- per 04/27/21 discharge- pt had recurrent syncope after dialysis 04/16/21 (neuro imaging showed no issues, cardio felt no further testing necessary) Surgical History History of ankle surgery RT (HARDWARE INTACT) History of appendectomy History of cataract surgery RT/LEFT History of dilatation and curettage History of esophagogastroduodenoscopy (EGD) History of surgery Left arm AVF creation (08/24/21): MAC at [facility] Family History Sister Ovarian cancer Brother Hypertension Family history of diabetes mellitus Other No family history of adverse response to anesthesia Social History Smoking Status: Never smoker Second Hand Exposure: No; Hx Alcohol Use: No Hx Substance Use: No Preferred Language: Sierra Leonean 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: Effective Support Specialist Required: No Beliefs That Will Affect Care: None marital status: Current Living Situation: Alone Current Living Situation Comment: Living in a handycap appartment current occupational status: retired How many Children do You have: 1 Other Information That Helps Us Care for You: No Feels Safe at Home: Yes Safety Concerns: Feels Safe At This Time Diet Comment: stated low salt, low carb during the past year weight has: increased > 10 lbs Assistive Devices: Brace/Splint/Immobilizer, Walker and Wheelchair Physical Exam Constitutional: WD/WN, vitals as above no acute distress ENMT: external ear and nose normal, oropharynx normal Neck: trachea midline Musculoskeletal: Ankle: + deformity (Right equinus deformity), + skin erythema (Mild to moderate erythema and warmth around the right ankle.), + surgical incision (Healed surgical incisions medial and lateral right ankle) and + limited ROM of ankle (Right ankle in all directions. Fixed contracture.) Skin: Trauma: no evidence of skin trauma Psychiatric: A+Ox3, euthymic affect Speech: normal rate/rhythm/volume of speech Results & Data ([facility]) Vital Signs (Past 12 Hours) Vital Signs Temp Pulse Pulse Pulse Resp BP BP 10/15/21 15:25 36.8 C 68 20 148/59 H 10/15/21 13:46 36.6 C 65 126/57 L 10/15/21 13:00 57 L 110/51 L 10/15/21 12:40 55 L 108/55 L 10/15/21 12:20 53 L 103/51 L 10/15/21 12:00 62 104/48 L 10/15/21 11:40 60 94/46 L 10/15/21 11:20 58 L 93/46 L 10/15/21 11:00 58 L 86/58 L 10/15/21 10:40 59 L 82/39 L 10/15/21 10:20 63 86/57 L 10/15/21 10:00 64 126/58 L 10/15/21 09:50 65 146/72 H 10/15/21 09:30 36.6 C 69 10/15/21 08:00 36.7 C 72 16 180/84 H Pulse Ox Pulse Ox 10/15/21 15:25 90 10/15/21 13:46 10/15/21 13:00 10/15/21 12:40 10/15/21 12:20 10/15/21 12:00 10/15/21 11:40 10/15/21 11:20 10/15/21 11:00 10/15/21 10:40 10/15/21 10:20 10/15/21 10:00 10/15/21 09:50 05/27/22 09:30 10/15/21 08:00 99 99 Diagnostic Findings MR foot RT w/o con HISTORY: Right foot and ankle redness. History of osteomyelitis. Evaluate for osteomyelitis. TECHNIQUE: Multiplanar multisequence MRI of the right forefoot was performed without contrast according to standard departmental protocol. COMPARISON STUDY: Right foot MRI 04/14/2021. Right foot radiograph 10/14/2021. FINDINGS: There is a normal marrow signal intensity seen throughout the visualized osseous structures of the right foot. The marrow edema at the base of the fifth metatarsal has resolved in the interval. No areas of cortical destruction to suggest an osteomyelitis. No fracture or dislocation. The Lisfranc joint is intact. Extensive subcutaneous and deep soft tissue edema seen throughout the foot, unchanged. There is also edema within the plantar muscles which is also unchanged. This may represent chronic denervation injury. No loculated fluid collections to suggest an abscess. No joint effusions. The flexor and extensor tendons appear intact. Mild degenerative changes again noted within the foot. IMPRESSION: 1. No abnormal marrow signal or cortical destruction to suggest an osteomyelitis within the right forefoot. 2. Diffuse subcutaneous and soft tissue edema seen throughout the right foot, unchanged.
[2021-10-15] MEDS ORDERED: INSULIN ASPART PER UNIT SC SCH (18:00)
[2021-10-15] MEDS: GABAPENTIN 100 MG CAP PO SCH (20:41)
[2021-10-15] MEDS: APIXABAN 5 MG TABLET PO SCH (20:41)
[2021-10-15] MEDS ORDERED: Nursing to Pharmacy 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 SCH (20:45)
[2021-10-15] MEDS: cefTRIAXone SODIUM 1,000 MG in DEXTROSE 5% 50 ML IV SCH (21:35)
[2021-10-16] MEDS: NEPHROCAPS PO SCH (08:17)
[2021-10-16] MEDS: CHOLECALCIFEROL 1,000 UNITS 25 MCG TAB PO SCH (08:17)
[2021-10-16] MEDS: MULTIVITAMIN TAB PO SCH (08:17)
[2021-10-16] MEDS: CALCIUM ACETATE 667 MG CAP/TAB PO SCH ×2 (08:17→12:10)
[2021-10-16] MEDS: carvediloL 12.5 MG TAB PO SCH ×2 (08:17→20:38)
[2021-10-16] MEDS: hydrALAZINE HCL 25 MG TAB PO SCH ×3 (08:17→20:37)
[2021-10-16] MEDS: APIXABAN 5 MG TABLET PO SCH ×2 (08:17→20:38)
[2021-10-16] MEDS: FUROSEMIDE 40 MG TAB PO SCH ×2 (08:17→17:30)
[2021-10-16] MEDS: DORZOLAMIDE/TIMOLOL 22.3/6.8MG/ML 10 ML BTL OP SCH ×2 (08:18→20:38)
[2021-10-16] MEDS: ATORVASTATIN 40 MG TAB PO SCH (08:18)
[2021-10-16] MEDS: INSULIN ASPART PER UNIT SC SCH ×4 (08:24→20:38)
--- NOTE | 2021-10-16 08:30 | Nephrology Progress Note ---
Date of Service October 16, 2021 Assessment & Plan (1) End stage renal failure on dialysis: Plan: * Volume status and electrolyte balance are acceptable. No acute indication for HD today * Outpatient HD: [facility], MWF 3.5 hrs, F-180NR, 3K 2.5Ca, EDW 78.5, TDC * No heparin with dialysis (HIT Ab +) (2) Heparin induced thrombocytopenia (HIT): Plan: * Avoid heparin * HIT + 01/09 & (3) Hypertension: Plan: * BP acceptable * Continue carvedilol, hydralazine and Furosemide (4) Anemia due to chronic kidney disease: Plan: * Mild, asymptomatic anemia * Will provide RANDY w/ HD treatments (5) Diabetic foot ulcer: Plan: * MRI negative for osteomyelitis * 10/14 wound culture: pinpoint growth, reincubating. Received 750 mg Vanco IV 10/15. Currently on IV Ceftriaxone * 10/16 Ortho recommendations: No acute indication for surgical intervention at this time. Patient is scheduled for a right pantalar fusion with a retrocalcaneal nail 11/17/21. It is recommended that she remain nonweightbearing on the right lower extremity until that time to avoid a recurrent ulceration at the fifth metatarsal base Admission and Anticipated Discharge Date Admission Date: October 14, 2021 Subjective Ms. Riley was evaluated in her hospital room this morning. The discomfort from her RLE cellulitis is improving. She reports that she was last dialyzed yesterday as an outpatient and there were no complications Review of Systems Constitutional: + weakness; no fever Eyes: no worsening vision Ear, Nose, Mouth, Throat: no problem reported Respiratory: no dyspnea Cardiovascular: no chest pain and no palpitations Gastrointestinal: no abdominal pain, no nausea, no vomiting and no diarrhea/loose stools Genitourinary: no dysuria and no hematuria Musculoskeletal: no back pain Integumentary: no rash Neurologic: no confusion Physical Exam Constitutional: not in distress Eyes: PERRL ENMT: external ear and nose normal, oropharynx normal Neck: trachea midline, no thyromegaly R IJ TCC w/ clean, dry dressing Respiratory: normal respiratory effort, lungs clear to auscultation Cardiovascular: RRR, no murmur, no edema Rate/Rhythm: regular rate and regular rhythm Extremities: + edema (1+ pretibial edema. Mild erythema involving RLE) Gastrointestinal (Abdomen): normal bowel sounds, soft, nontender, no hepatosplenomegaly Results & Data ([facility]) Vital Signs (Past 12 Hours) Vital Signs Temp Pulse Pulse Resp BP Pulse Ox 10/16/21 06:47 37 C 67 16 145/62 H 91 10/16/21 03:00 36.7 C 68 16 148/73 H 90 10/16/21 00:00 68 10/15/21 23:00 36.9 C 70 18 163/73 H 92 Laboratory Results Laboratory Tests 10/16/21 10/16/21 09:22 09:22 WBC 7.78 Hgb 11.4 L Hct 37.6 Plt Count 131 Sodium 135 L Potassium 4.9 Chloride 104 Carbon Dioxide 21 BUN 43 H Creatinine 5.54 H* D Glucose 188 H Calcium 9.0 Phosphorus 5.0 H Magnesium 2.0 PG Care Time/CCT Total # of Minutes Spent Total Time Spent with Patient: Total time spent is greater than 50% in coordination of care (as documented) at patient's floor/unit and/or counseling patient: Coding Level of Care Code 35180 Subseq Hosp Care Lvl 3 Diagnoses End stage renal failure on dialysis N18.6; Z99.2 Hypertension I10 Hypertension type: unspecified Anemia due to chronic kidney disease N18.9; D63.1 Diabetic foot ulcer E11.621; L97.509 Heparin induced thrombocytopenia (HIT) D75.82 (1) Hypertension Hypertension type: unspecified Qualified Code(s): I10 - Essential (primary) hypertension
[2021-10-16 09:43] LABS: Hematocrit (blood only) 37.6 % (37-47); Hemoglobin 11.4 g/dL (12.0-16.0); Mean Corpuscular Hemoglobin 30.6 pg (25-34); Mean Corpuscular Hgb Conc 30.3 g/dL (32-36); Mean Corpuscular Volume 101.1 fL (80-100); Mean Platelet Volume 11.1 fL (7.4-10.4); Platelet Count 131 K/uL (130-400); RDW Coefficient of Variation 15.7 % (11.5-14.5); RDW Standard Deviation 57.6 fL (36.4-46.3); Red Blood Count 3.72 M/uL (4.2-5.4); White Blood Count 7.78 K/uL (4.8-10.8)
[2021-10-16 10:02] LABS: Partial Thromboplastin Ratio 0.9; Partial Thromboplastin Time 24.5 Seconds (21.0-31.0)
[2021-10-16 10:13] LABS: Potassium 4.9 mmol/L (3.5-5.1)
[2021-10-16 10:14] LABS: BUN Creatinine Ratio 7.8 (10-20); Creatinine Clr Calc Pharmacy 9.5 ml/min; Est GFR (African American) 8.6 ml/min; Est GFR (Non-African American) 7.4 ml/min
[2021-10-16] MEDS: INSULIN GLARGINE SOLOSTAR 100 UNITS/ML 3 ML PEN SC SCH (12:25)
--- NOTE | 2021-10-16 12:34 | Hospitalist Progress Note ---
Date of Service October 16, 2021 Assessment & Plan (1) Cellulitis of foot, right: (2) Diabetic foot ulcer: (3) Type 2 diabetes mellitus: (4) End stage renal failure on dialysis: (5) Chronic diastolic CHF (congestive heart failure): (6) Diabetic neuropathy: (7) Hypertension: Plan: This is a 66-year-old female w/ insulin-dependent T2DM, end-stage renal disease on hemodialysis Monday, diabetic retinopathy, diabetic neuropathy, chronic HFpEF, history of osteomyelitis of right foot, anemia of renal disease, history of DVT, history of CVA, steal syndrome to left arm who presents to ER secondary to worsening redness and cellulitis on right foot x1 week. Right lower extremity cellulitis including right foot Healing right lateral midfoot diabetic ulcer Diabetic neuropathy History of right foot osteomyelitis treated with IV vancomycin 03/2021-05/2021 admitted to tele started IV vancomycin and rocephin empirically Consulted Dr Acharya - ingrid Infectious disease last note recommendation is for pb ne bx given recurrence of cellulitis Obtained MRI R foot to eval for OM FINDINGS: There is a normal marrow signal intensity seen throughout the visualized osseous structures of the right foot. The marrow edema at the base of the fifth metatarsal has resolved in the interval. No areas of cortical destruction to suggest an osteomyelitis. No fracture or dislocation. The Lisfranc joint is intact. Extensive subcutaneous and deep soft tissue edema seen throughout the foot, unchanged. There is also edema within the plantar muscles which is also unchanged. This may represent chronic denervation injury. No loculated fluid collections to suggest an abscess. No joint effusions. The flexor and extensor tendons appear intact. Mild degenerative changes again noted within the foot. IMPRESSION: 1. No abnormal marrow signal or cortical destruction to suggest an osteomyelitis within the right forefoot. 2. Diffuse subcutaneous and soft tissue edema seen throughout the right foot, unchanged. Per orthopedics At this time, there is not appear to be a need for surgical intervention. She is scheduled for a right pantalar fusion with a retrocalcaneal nail for November 17. We discussed that it be recommended that she remain nonweightbearing on the right lower extremity until that time to avoid a recurrent ulceration at the fifth metatarsal base. Continue antibiotic treatment per the hospitalist team. I also discussed with the patient that the cellulitis will need to be resolved if we were to proceed with her surgery in approximately 5 weeks. Blood cultx - ngtd Surface culture obtained in ED - Gram Stain Final 10/14/21-2013 Gram Stain Result No WBCs Seen Few Gram Positive Cocci Surface Wound Culture Final 10/16/21-1101 Moderate counts mixed probable skin microbiota. No further identifications or sensitivities to follow. Clinic culture grew coag negative staph Wound care consult Cont. IV Abx , discuss w/ ID further plan (likely on Monday) Arterial Duplex LE done 06/2021: IMPRESSION: While there is patent arterial flow bilaterally, there is significantly elevated flow velocity present at multiple sites bilaterally representing sites of focal stenosis. Consider consulting vascular if no improvement Eliquis resumed ESR 67, CRP ESRD on HD MWF consult [facility] nephro Dr. Ambrocio continue phos lo and velphoro monitor mag, phos electrolytes stable, on room air Insulin-dependent T2DM Diabetic neuropathy Diabetic nephropathy Diabetic retinopathy last a1c 6.4 on 06/10/21 Current Hba1c 7.8% Lantus/novolog per protocol consult glycemic pharmacy continue gabapentin Anemia of renal disease hgb stable at 11.8 no s/ sx of bleeding HTN continue hydralazine, coreg DVT ppx: Eliquis Dispo: Tele, pt needs IV antibiotics, ortho eval, eventual ID consult, will remain hospitalized for few days at least PCP: Dr. Bronson FULL CODE Admission and Anticipated Discharge Date Admission Date: October 14, 2021 Subjective Patient seen in follow-up of her right foot infection, possible osteomyelitis She is currently sitting up in bed, in no acute distress Denies fevers, chills, chest pain, shortness of breath, abdominal pain, nausea vomiting MRI of right foot obtained, orthopedics consulted as well Review of Systems Review of Systems: All systems reviewed & are unremarkable except as noted in Subjective Physical Exam Physical Exam: Constitutional: WD/WN, NAD, sitting up in bed, pleasant, conversing easily Head: Normocephalic, Atraumatic Eyes: PERRL, EOMI, conjunctivae normal, anicteric sclerae ENMT: external ear and nose normal, oropharynx normal Neck:normal visual inspection, supple Respiratory: normal respiratory effort, lungs clear to auscultation, no wheeze, rales, rhonchi. Cardiovascular: RRR, no murmur, b/l lower ext erythema, R > L, R extends up prox tibial surface, warm to touch, healing wound to R lateral midfoot, no drainage, palpable pulses b/l, +2 Chest: normal inspection of chest, RACW port a cath noted, LUE AV fistula nonfunctional Abdomen: normal bowel sounds, soft, nontender Musculoskeletal:AROM x 4, R ankle with inversion Skin: no rashes, warm and dry normal turgor Neurologic: PERRL, EOMI, no face palsy, no dysarthria, moves all extremities Psychiatric: A+Ox3, euthymic affect Results & Data Results & Data ([facility]) Vital Signs (Past 12 Hours) Vital Signs Temp Pulse Pulse Resp BP Pulse Ox 10/16/21 11:33 36.8 C 70 18 153/80 H 90 10/16/21 08:00 66 10/16/21 06:47 37 C 67 16 145/62 H 91 10/16/21 03:00 36.7 C 68 16 148/73 H 90 Laboratory Results 10/16/21 10/16/21 10/16/21 Range/Units 11:30 09:22 09:22 WBC 7.78 (4.8-10.8) K/uL RBC 3.72 L (4.2-5.4) M/uL Hgb 11.4 L (12.0-16.0) g/dL Hct 37.6 (37-47) % MCV 101.1 H (80-100) fL MCH 30.6 (25-34) pg MCHC 30.3 L (32-36) g/dL RDW Std Deviation 57.6 H (36.4-46.3) fL RDW Coeff of Rico 15.7 H (11.5-14.5) % Plt Count 131 (130-400) K/uL MPV 11.1 H (7.4-10.4) fL APTT (21.0-31.0) Seconds PTT Ratio Sodium 135 L (136-145) mmol/L Potassium 4.9 (3.5-5.1) mmol/L Chloride 104 (98-107) mmol/L Carbon Dioxide 21 (21-32) mmol/L Anion Gap 10 (3-11) BUN 43 H (6-23) mg/dl Creatinine 5.54 H* D (0.6-1.2) mg/dl Est Cr Clr Drug Dosing 9.5 ml/min Est GFR ( Amer) 8.6 ml/min Est GFR (Non-Af Amer) 7.4 ml/min BUN/Creatinine Ratio 7.8 L (10-20) Glucose 188 H (70-99(Fasting)) mg/dl POC Glucose 200 H (70-99) mg/dl Calcium 9.0 (8.5-10.1) mg/dl Phosphorus 5.0 H (2.5-4.9) mg/dl Magnesium 2.0 (1.7-2.4) mg/dl 10/16/21 10/16/21 10/15/21 Range/Units 09:22 07:22 20:36 WBC (4.8-10.8) K/uL RBC (4.2-5.4) M/uL Hgb (12.0-16.0) g/dL Hct (37-47) % MCV (80-100) fL MCH (25-34) pg MCHC (32-36) g/dL RDW Std Deviation (36.4-46.3) fL RDW Coeff of Rico (11.5-14.5) % Plt Count (130-400) K/uL MPV (7.4-10.4) fL APTT 24.5 (21.0-31.0) Seconds PTT Ratio 0.9 Sodium (136-145) mmol/L Potassium (3.5-5.1) mmol/L Chloride (98-107) mmol/L Carbon Dioxide (21-32) mmol/L Anion Gap (3-11) BUN (6-23) mg/dl Creatinine (0.6-1.2) mg/dl Est Cr Clr Drug Dosing ml/min Est GFR ( Amer) ml/min Est GFR (Non-Af Amer) ml/min BUN/Creatinine Ratio (10-20) Glucose (70-99(Fasting)) mg/dl POC Glucose 134 H 164 H (70-99) mg/dl Calcium (8.5-10.1) mg/dl Phosphorus (2.5-4.9) mg/dl Magnesium (1.7-2.4) mg/dl 10/15/21 10/15/21 Range/Units 16:39 13:56 WBC (4.8-10.8) K/uL RBC (4.2-5.4) M/uL Hgb (12.0-16.0) g/dL Hct (37-47) % MCV (80-100) fL MCH (25-34) pg MCHC (32-36) g/dL RDW Std Deviation (36.4-46.3) fL RDW Coeff of Rico (11.5-14.5) % Plt Count (130-400) K/uL MPV (7.4-10.4) fL APTT (21.0-31.0) Seconds PTT Ratio Sodium (136-145) mmol/L Potassium (3.5-5.1) mmol/L Chloride (98-107) mmol/L Carbon Dioxide (21-32) mmol/L Anion Gap (3-11) BUN (6-23) mg/dl Creatinine (0.6-1.2) mg/dl Est Cr Clr Drug Dosing ml/min Est GFR ( Amer) ml/min Est GFR (Non-Af Amer) ml/min BUN/Creatinine Ratio (10-20) Glucose (70-99(Fasting)) mg/dl POC Glucose 110 H 98 (70-99) mg/dl Calcium (8.5-10.1) mg/dl Phosphorus (2.5-4.9) mg/dl Magnesium (1.7-2.4) mg/dl Medications Administered Current Inpatient Medications Acetaminophen (Acetaminophen 325 Mg Tab) 650 mg PO Q4H PRN PRN Reason: Pain or Fever Stop: 11/13/21 21:51 Apixaban (Apixaban 5 Mg Tablet) 5 mg PO BID [facility] Stop: 11/14/21 20:59 Last Admin: 10/16/21 08:17 Dose: 5 mg Documented by: Atorvastatin Calcium (Atorvastatin 40 Mg Tab) 40 mg PO QAM [facility] Stop: 11/14/21 08:59 Last Admin: 10/16/21 08:18 Dose: 40 mg Documented by: Calcium Acetate (Calcium Acetate 667 Mg Cap/Tab) 1,334 mg PO BID@0800,1200 [facility] Stop: 11/14/21 07:59 Last Admin: 10/16/21 12:10 Dose: 1,334 mg Documented by: Carvedilol (Carvedilol 12.5 Mg Tab) 12.5 mg PO BID [facility] Stop: 11/13/21 21:51 Last Admin: 10/16/21 08:17 Dose: 12.5 mg Documented by: Dextrose (Dextrose 50% 50 Ml Syringe) 25 - 50 ml IV UD PRN; Protocol PRN Reason: Hypoglycemia Protocol Stop: 11/13/21 21:51 Dorzolamide/Timolol (Dorzolamide/Timolol 22.3/6.8mg/Ml 10 Ml Btl) 1 drops OP BID [facility] Stop: 11/13/21 21:51 Last Admin: 10/16/21 08:18 Dose: 1 drops Documented by: Furosemide (Furosemide 40 Mg Tab) 40 mg PO [id number] [facility] Stop: 11/13/21 21:51 Last Admin: 10/16/21 08:17 Dose: 40 mg Documented by: Gabapentin (Gabapentin 100 Mg Cap) 100 mg PO HS [facility] Stop: 11/13/21 21:51 Last Admin: 10/15/21 20:41 Dose: 100 mg Documented by: Glucagon (Glucagon For Inj 1 Mg Vial) 1 mg SQ UD PRN; Protocol PRN Reason: Hypoglycemia Protocol Stop: 11/13/21 21:51 Glucose (Glucose 10 Tabs/Tube) 4 - 8 tabs PO UD PRN; Protocol PRN Reason: Hypoglycemia Protocol Stop: 11/13/21 21:51 Glucose (Glucose 40% Gel 15 Gm Tube) 15 - 30 gm PO UD PRN; Protocol PRN Reason: Hypoglycemia Protocol Stop: 11/13/21 21:51 Hydralazine HCl (Hydralazine Hcl 25 Mg Tab) 25 mg PO TID [facility] Stop: 11/13/21 21:51 Last Admin: 10/16/21 08:17 Dose: 25 mg Documented by: Hydralazine HCl (Hydralazine Hcl 20 Mg/Ml Vial) 10 mg IV Q6 PRN PRN Reason: HypertensionSBP>180 OR DBP>100 Stop: 11/13/21 21:51 Ceftriaxone Sodium 1,000 mg/ (Dextrose) 60 mls @ 100 mls/hr IV Q24H [facility]; Protocol Stop: 10/21/21 21:59 Last Infusion: 10/15/21 22:32 Dose: Infused Documented by: Insulin Aspart (Insulin Aspart Per Unit) 0 units SC ACHS [facility] Stop: 11/14/21 17:59 Last Admin: 10/16/21 12:25 Dose: 12 units Documented by: Insulin Glargine (Insulin Glargine Solostar 100 Units/Ml 3 Ml Pen) 5 units SC DAILY [facility] Stop: 11/15/21 09:59 Last Admin: 10/16/21 12:25 Dose: 5 units Documented by: Miscellaneous (Carbohydrates For Hypoglycemia ) 15 - 30 gm PO UD PRN PRN Reason: Hypoglycemia Protocol Stop: 11/13/21 21:51 Miscellaneous (Velphoro - Order Awaiting Action) 1 ea N/A QS [facility] Stop: 11/14/21 00:00 Last Admin: 10/16/21 08:25 Dose: Not Given Documented by: Miscellaneous Information (Pharmacy Glycemic Mgmt Consult) 1 ea N/A UD PRN; Protocol PRN Reason: Consult Stop: 11/13/21 21:51 Miscellaneous Information (Vancomycin Consult Active) 1 ea N/A UD PRN PRN Reason: Consult Stop: 11/13/21 21:51 [facility]ivit[facility] ([facility]amin Tab) [facility] Stop: 11/14/21 08:59 Last Admin: 10/16/21 08:17 Dose: 1 tab Documented by: Ondansetron HCl (Ondansetron Inj 2 Mg/Ml 2 Ml Vial) 4 mg IV Q6H PRN PRN Reason: Nausea Stop: 11/13/21 21:51 Polyethylene Glycol (Polyethylene (Miralax) 17 Gm Pack) 17 gm PO DAILY PRN PRN Reason: Constipation Stop: 11/13/21 21:51 Vitamin B Complex/Folic Acid (Nephrocaps) [facility] [place] Stop: 11/14/21 08:59 Last Admin: 10/16/21 08:17 Dose: 1 cap Documented by: Vitamin D (Cholecalciferol 1,000 Units 25 Mcg Tab) 2,000 units PO QAM [facility] Stop: 11/14/21 08:59 Last Admin: 10/16/21 08:17 Dose: 2,000 units Documented by: (1) Diabetic neuropathy Diabetes mellitus complication detail: with other neurological complication Diabetes mellitus type: type 2 Qualified Code(s): E11.49 - Type 2 diabetes mellitus with other diabetic neurological complication (2) Type 2 diabetes mellitus Chronic kidney disease stage: on chronic dialysis Diabetes mellitus complication detail: with chronic kidney disease Diabetes mellitus complication status: with kidney complications 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
[2021-10-16] MEDS: GABAPENTIN 100 MG CAP PO SCH (20:37)
[2021-10-16] MEDS: cefTRIAXone SODIUM 1,000 MG in DEXTROSE 5% 50 ML IV SCH (22:19)
[2021-10-17 07:17] LABS: Hematocrit (blood only) 35.1 % (37-47); Mean Corpuscular Hgb Conc 31.3 g/dL (32-36); Mean Platelet Volume 10.9 fL (7.4-10.4); Platelet Count 156 K/uL (130-400); RDW Coefficient of Variation 15.4 % (11.5-14.5); RDW Standard Deviation 57.2 fL (36.4-46.3); Red Blood Count 3.44 M/uL (4.2-5.4); White Blood Count 6.81 K/uL (4.8-10.8)
[2021-10-17 07:35] LABS: Partial Thromboplastin Ratio 1.1; Partial Thromboplastin Time 29.2 Seconds (21.0-31.0)
[2021-10-17 07:55] LABS: BUN Creatinine Ratio 9.3 (10-20); Calcium 9.3 mg/dl (8.5-10.1); Creatinine Clr Calc Pharmacy 8.2 ml/min; Est GFR (African American) 7.3 ml/min; Est GFR (Non-African American) 6.3 ml/min; Magnesium 2.2 mg/dl (1.7-2.4); Potassium 5.3 mmol/L (3.5-5.1)
--- NOTE | 2021-10-17 08:07 | Hospitalist Progress Note ---
Date of Service October 17, 2021 Assessment & Plan (1) Cellulitis of foot, right: (2) Diabetic foot ulcer: (3) Type 2 diabetes mellitus: (4) End stage renal failure on dialysis: (5) Chronic diastolic CHF (congestive heart failure): (6) Diabetic neuropathy: (7) Hypertension: Plan: This is a 66-year-old female w/ insulin-dependent T2DM, end-stage renal disease on hemodialysis Monday, diabetic retinopathy, diabetic neuropathy, chronic HFpEF, history of osteomyelitis of right foot, anemia of renal disease, history of DVT, history of CVA, steal syndrome to left arm who presents to ER secondary to worsening redness and cellulitis on right foot x1 week. Right lower extremity cellulitis including right foot Healing right lateral midfoot diabetic ulcer Diabetic neuropathy History of right foot osteomyelitis treated with IV vancomycin 03/2021-05/2021 admitted to tele started IV vancomycin and rocephin empirically Consulted Dr Acharya - ingrid Infectious disease last note recommendation is for pb ne bx given recurrence of cellulitis Obtained MRI R foot to eval for OM FINDINGS: There is a normal marrow signal intensity seen throughout the visualized osseous structures of the right foot. The marrow edema at the base of the fifth metatarsal has resolved in the interval. No areas of cortical destruction to suggest an osteomyelitis. No fracture or dislocation. The Lisfranc joint is intact. Extensive subcutaneous and deep soft tissue edema seen throughout the foot, unchanged. There is also edema within the plantar muscles which is also unchanged. This may represent chronic denervation injury. No loculated fluid collections to suggest an abscess. No joint effusions. The flexor and extensor tendons appear intact. Mild degenerative changes again noted within the foot. IMPRESSION: 1. No abnormal marrow signal or cortical destruction to suggest an osteomyelitis within the right forefoot. 2. Diffuse subcutaneous and soft tissue edema seen throughout the right foot, unchanged. Per orthopedics At this time, there is not appear to be a need for surgical intervention. She is scheduled for a right pantalar fusion with a retrocalcaneal nail for November 17. We discussed that it be recommended that she remain nonweightbearing on the right lower extremity until that time to avoid a recurrent ulceration at the fifth metatarsal base. Continue antibiotic treatment per the hospitalist team. I also discussed with the patient that the cellulitis will need to be resolved if we were to proceed with her surgery in approximately 5 weeks. Blood cultx - ngtd Surface culture obtained in ED - Gram Stain Final 10/14/21-2013 Gram Stain Result No WBCs Seen Few Gram Positive Cocci Surface Wound Culture Final 10/16/21-110 Moderate counts mixed probable skin microbiota. No further identifications or sensitivities to follow. Clinic culture grew coag negative staph Wound care consult Cont. IV Abx , discuss w/ ID further plan (likely on Monday) Arterial Duplex LE done 06/2021: IMPRESSION: While there is patent arterial flow bilaterally, there is significantly elevated flow velocity present at multiple sites bilaterally representing sites of focal stenosis. Consider consulting vascular if no improvement Eliquis resumed ESR 67, CRP ESRD on HD MWF consult [facility] nephro Dr. Ambrocio continue phos lo and velphoro monitor mag, phos electrolytes stable, on room air Insulin-dependent T2DM Diabetic neuropathy Diabetic nephropathy Diabetic retinopathy last a1c 6.4 on 06/10/21 Current Hba1c 7.8% Lantus/novolog per protocol consult glycemic pharmacy continue gabapentin Anemia of renal disease hgb stable at 11.8 no s/ sx of bleeding HTN continue hydralazine, coreg DVT ppx: Eliquis Dispo: Tele, pt needs IV antibiotics, ortho eval, eventual ID consult, will remain hospitalized for next 1-2 days PCP: Dr. Bronson FULL CODE Admission and Anticipated Discharge Date Admission Date: October 14, 2021 Subjective Patient seen in follow-up of her right foot infection, possible osteomyelitis She is currently sitting up in bed, in no acute distress Denies fevers, chills, chest pain, shortness of breath, abdominal pain, nausea vomiting MRI of right foot obtained, orthopedics consulted as well ID consult pending Review of Systems Review of Systems: All systems reviewed & are unremarkable except as noted in Subjective Physical Exam Physical Exam: Constitutional: WD/WN, NAD, sitting up in bed, pleasant, conversing easily Head: Normocephalic, Atraumatic Eyes: PERRL, EOMI, conjunctivae normal, anicteric sclerae ENMT: external ear and nose normal, oropharynx normal Neck:normal visual inspection, supple Respiratory: normal respiratory effort, lungs clear to auscultation, no wheeze, rales, rhonchi. Cardiovascular: RRR, no murmur, b/l lower ext erythema, R > L, R extends up prox tibial surface, warm to touch, healing wound to R lateral midfoot, no drainage, palpable pulses b/l, +2 Chest: normal inspection of chest, RACW port a cath noted, LUE AV fistula nonfunctional Abdomen: normal bowel sounds, soft, nontender Musculoskeletal:AROM x 4, R ankle with inversion Skin: no rashes, warm and dry normal turgor Neurologic: PERRL, EOMI, no face palsy, no dysarthria, moves all extremities Psychiatric: A+Ox3, euthymic affect Results & Data Results & Data ([facility]) Vital Signs (Past 12 Hours) Vital Signs Temp Pulse Pulse Resp BP Pulse Ox 10/17/21 07:19 59 L 10/17/21 06:51 36.4 C L 61 18 163/78 H 94 10/17/21 02:56 36.3 C L 63 16 152/71 H 91 10/16/21 22:20 62 10/16/21 22:00 36.5 C 64 18 179/73 H 93 Laboratory Results 10/17/21 10/17/21 10/17/21 Range/Units 07:21 06:28 06:28 WBC 6.81 (4.8-10.8) K/uL RBC 3.44 L (4.2-5.4) M/uL Hgb 11.0 L (12.0-16.0) g/dL Hct 35.1 L (37-47) % MCV 102.0 H (80-100) fL MCH 32.0 (25-34) pg MCHC 31.3 L (32-36) g/dL RDW Std Deviation 57.2 H (36.4-46.3) fL RDW Coeff of Rico 15.4 H (11.5-14.5) % Plt Count 156 (130-400) K/uL MPV 10.9 H (7.4-10.4) fL APTT 29.2 (21.0-31.0) Seconds PTT Ratio 1.1 Sodium (136-145) mmol/L Potassium (3.5-5.1) mmol/L Chloride (98-107) mmol/L Carbon Dioxide (21-32) mmol/L Anion Gap (3-11) BUN (6-23) mg/dl Creatinine (0.6-1.2) mg/dl Est Cr Clr Drug Dosing ml/min Est GFR ( Amer) ml/min Est GFR (Non-Af Amer) ml/min BUN/Creatinine Ratio (10-20) Glucose (70-99(Fasting)) mg/dl POC Glucose 134 H (70-99) mg/dl Calcium (8.5-10.1) mg/dl Phosphorus (2.5-4.9) mg/dl Magnesium (1.7-2.4) mg/dl 10/17/21 10/16/21 10/16/21 Range/Units 06:28 20:33 16:29 WBC (4.8-10.8) K/uL RBC (4.2-5.4) M/uL Hgb (12.0-16.0) g/dL Hct (37-47) % MCV (80-100) fL MCH (25-34) pg MCHC (32-36) g/dL RDW Std Deviation (36.4-46.3) fL RDW Coeff of Rico (11.5-14.5) % Plt Count (130-400) K/uL MPV (7.4-10.4) fL APTT (21.0-31.0) Seconds PTT Ratio Sodium 138 (136-145) mmol/L Potassium 5.3 H (3.5-5.1) mmol/L Chloride 105 (98-107) mmol/L Carbon Dioxide 22 (21-32) mmol/L Anion Gap 11 (3-11) BUN 59 H (6-23) mg/dl Creatinine 6.36 H* D (0.6-1.2) mg/dl Est Cr Clr Drug Dosing 8.2 ml/min Est GFR ( Amer) 7.3 ml/min Est GFR (Non-Af Amer) 6.3 ml/min BUN/Creatinine Ratio 9.3 L (10-20) Glucose 132 H (70-99(Fasting)) mg/dl POC Glucose 123 H 165 H (70-99) mg/dl Calcium 9.3 (8.5-10.1) mg/dl Phosphorus (2.5-4.9) mg/dl Magnesium 2.2 (1.7-2.4) mg/dl 10/16/21 10/16/21 10/16/21 Range/Units 11:30 09:22 09:22 WBC 7.78 (4.8-10.8) K/uL RBC 3.72 L (4.2-5.4) M/uL Hgb 11.4 L (12.0-16.0) g/dL Hct 37.6 (37-47) % MCV 101.1 H (80-100) fL MCH 30.6 (25-34) pg MCHC 30.3 L (32-36) g/dL RDW Std Deviation 57.6 H (36.4-46.3) fL RDW Coeff of Rico 15.7 H (11.5-14.5) % Plt Count 131 (130-400) K/uL MPV 11.1 H (7.4-10.4) fL APTT (21.0-31.0) Seconds PTT Ratio Sodium 135 L (136-145) mmol/L Potassium 4.9 (3.5-5.1) mmol/L Chloride 104 (98-107) mmol/L Carbon Dioxide 21 (21-32) mmol/L Anion Gap 10 (3-11) BUN 43 H (6-23) mg/dl Creatinine 5.54 H* D (0.6-1.2) mg/dl Est Cr Clr Drug Dosing 9.5 ml/min Est GFR ( Amer) 8.6 ml/min Est GFR (Non-Af Amer) 7.4 ml/min BUN/Creatinine Ratio 7.8 L (10-20) Glucose 188 H (70-99(Fasting)) mg/dl POC Glucose 200 H (70-99) mg/dl Calcium 9.0 (8.5-10.1) mg/dl Phosphorus 5.0 H (2.5-4.9) mg/dl Magnesium 2.0 (1.7-2.4) mg/dl 10/16/21 Range/Units 09:22 WBC (4.8-10.8) K/uL RBC (4.2-5.4) M/uL Hgb (12.0-16.0) g/dL Hct (37-47) % MCV (80-100) fL MCH (25-34) pg MCHC (32-36) g/dL RDW Std Deviation (36.4-46.3) fL RDW Coeff of Rico (11.5-14.5) % Plt Count (130-400) K/uL MPV (7.4-10.4) fL APTT 24.5 (21.0-31.0) Seconds PTT Ratio 0.9 Sodium (136-145) mmol/L Potassium (3.5-5.1) mmol/L Chloride (98-107) mmol/L Carbon Dioxide (21-32) mmol/L Anion Gap (3-11) BUN (6-23) mg/dl Creatinine (0.6-1.2) mg/dl Est Cr Clr Drug Dosing ml/min Est GFR ( Amer) ml/min Est GFR (Non-Af Amer) ml/min BUN/Creatinine Ratio (10-20) Glucose (70-99(Fasting)) mg/dl POC Glucose (70-99) mg/dl Calcium (8.5-10.1) mg/dl Phosphorus (2.5-4.9) mg/dl Magnesium (1.7-2.4) mg/dl Medications Administered Current Inpatient Medications Acetaminophen (Acetaminophen 325 Mg Tab) 650 mg PO Q4H PRN PRN Reason: Pain or Fever Stop: 11/13/21 21:51 Apixaban (Apixaban 5 Mg Tablet) 5 mg PO BID JOSE FRANCISCO Stop: 11/14/21 20:59 Last Admin: 10/17/21 08:19 Dose: 5 mg Documented by: Atorvastatin Calcium (Atorvastatin 40 Mg Tab) 40 mg PO QAM JOSE FRANCISCO Stop: 11/14/21 08:59 Last Admin: 10/17/21 08:19 Dose: 40 mg Documented by: Calcium Acetate (Calcium Acetate 667 Mg Cap/Tab) 1,334 mg PO BID@0800,1200 JOSE FRANCISCO Stop: 11/14/21 07:59 Last Admin: 10/17/21 08:19 Dose: 1,334 mg Documented by: Carvedilol (Carvedilol 12.5 Mg Tab) 12.5 mg PO BID JOSE FRANCISCO Stop: 11/13/21 21:51 Last Admin: 10/17/21 08:19 Dose: 12.5 mg Documented by: Dextrose (Dextrose 50% 50 Ml Syringe) 25 - 50 ml IV UD PRN; Protocol PRN Reason: Hypoglycemia Protocol Stop: 11/13/21 21:51 Dorzolamide/Timolol (Dorzolamide/Timolol 22.3/6.8mg/Ml 10 Ml Btl) 1 drops OP BID JOSE FRANCISCO Stop: 11/13/21 21:51 Last Admin: 10/17/21 08:20 Dose: 1 drops Documented by: Furosemide (Furosemide 40 Mg Tab) 40 mg PO BID17 JOSE FRANCISCO Stop: 11/13/21 21:51 Last Admin: 10/17/21 08:19 Dose: 40 mg Documented by: Gabapentin (Gabapentin 100 Mg Cap) 100 mg PO HS JOSE FRANCISCO Stop: 11/13/21 21:51 Last Admin: 10/16/21 20:37 Dose: 100 mg Documented by: Glucagon (Glucagon For Inj 1 Mg Vial) 1 mg SQ UD PRN; Protocol PRN Reason: Hypoglycemia Protocol Stop: 11/13/21 21:51 Glucose (Glucose 10 Tabs/Tube) 4 - 8 tabs PO UD PRN; Protocol PRN Reason: Hypoglycemia Protocol Stop: 11/13/21 21:51 Glucose (Glucose 40% Gel 15 Gm Tube) 15 - 30 gm PO UD PRN; Protocol PRN Reason: Hypoglycemia Protocol Stop: 11/13/21 21:51 Hydralazine HCl (Hydralazine Hcl 25 Mg Tab) 25 mg PO TID JOSE FRANCISCO Stop: 11/13/21 21:51 Last Admin: 10/17/21 08:19 Dose: 25 mg Documented by: Hydralazine HCl (Hydralazine Hcl 20 Mg/Ml Vial) 10 mg IV Q6 PRN PRN Reason: HypertensionSBP>180 OR DBP>100 Stop: 11/13/21 21:51 Ceftriaxone Sodium 1,000 mg/ (Dextrose) 60 mls @ 100 mls/hr IV Q24H [facility]; Protocol Stop: 10/21/21 21:59 Last Infusion: 10/16/21 23:00 Dose: Infused Documented by: Insulin Aspart (Insulin Aspart Per Unit) 0 units SC ACHS [facility] Stop: 11/14/21 17:59 Last Admin: 10/17/21 08:26 Dose: 8 units Documented by: Insulin Glargine (Insulin Glargine Solostar 100 Units/Ml 3 Ml Pen) 5 units SC DAILY [facility] Stop: 11/15/21 09:59 Last Admin: 10/17/21 08:26 Dose: 5 units Documented by: Miscellaneous (Carbohydrates For Hypoglycemia ) 15 - 30 gm PO UD PRN PRN Reason: Hypoglycemia Protocol Stop: 11/13/21 21:51 Miscellaneous (Velphoro - Order Awaiting Action) 1 ea N/A QS [facility] Stop: 11/14/21 00:00 Last Admin: 10/17/21 09:16 Dose: Not Given Documented by: Miscellaneous Information (Pharmacy Glycemic Mgmt Consult) 1 ea N/A UD PRN; Protocol PRN Reason: Consult Stop: 11/13/21 21:51 Miscellaneous Information (Vancomycin Consult Active) 1 ea N/A UD PRN PRN Reason: Consult Stop: 11/13/21 21:51 [facility]ivitamins ([facility]ivitamin Tab) [facility] [place] Stop: 11/14/21 08:59 Last Admin: 10/17/21 08:19 Dose: 1 tab Documented by: Ondansetron HCl (Ondansetron Inj 2 Mg/Ml 2 Ml Vial) 4 mg IV Q6H PRN PRN Reason: Nausea Stop: 11/13/21 21:51 Polyethylene Glycol (Polyethylene (Miralax) 17 Gm Pack) 17 gm PO DAILY PRN PRN Reason: Constipation Stop: 11/13/21 21:51 Vitamin B Complex/Folic Acid (Nephrocaps) 1 cap [facility] [place] Stop: 11/14/21 08:59 Last Admin: 10/17/21 08:19 Dose: 1 cap Documented by: Vitamin D (Cholecalciferol 1,000 Units 25 Mcg Tab) 2,000 units [facility] [place] Stop: 11/14/21 08:59 Last Admin: 10/17/21 08:19 Dose: 2,000 units Documented by: (1) Diabetic neuropathy Diabetes mellitus complication detail: with other neurological complication Diabetes mellitus type: type 2 Qualified Code(s): E11.49 - Type 2 diabetes mellitus with other diabetic neurological complication (2) Type 2 diabetes mellitus Chronic kidney disease stage: on chronic dialysis Diabetes mellitus complication detail: with chronic kidney disease Diabetes mellitus complication status: with kidney complications 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
[2021-10-17] MEDS: CHOLECALCIFEROL 1,000 UNITS 25 MCG TAB PO SCH (08:19)
[2021-10-17] MEDS: hydrALAZINE HCL 25 MG TAB PO SCH ×3 (08:19→20:23)
[2021-10-17] MEDS: APIXABAN 5 MG TABLET PO SCH ×2 (08:19→20:22)
[2021-10-17] MEDS: ATORVASTATIN 40 MG TAB PO SCH (08:19)
[2021-10-17] MEDS: FUROSEMIDE 40 MG TAB PO SCH ×2 (08:19→17:48)
[2021-10-17] MEDS: CALCIUM ACETATE 667 MG CAP/TAB PO SCH ×2 (08:19→17:35)
[2021-10-17] MEDS: NEPHROCAPS PO SCH (08:19)
[2021-10-17] MEDS: carvediloL 12.5 MG TAB PO SCH ×2 (08:19→20:22)
[2021-10-17] MEDS: MULTIVITAMIN TAB PO SCH (08:19)
[2021-10-17] MEDS: DORZOLAMIDE/TIMOLOL 22.3/6.8MG/ML 10 ML BTL OP SCH ×2 (08:20→20:22)
[2021-10-17] MEDS: INSULIN GLARGINE SOLOSTAR 100 UNITS/ML 3 ML PEN SC SCH (08:26)
[2021-10-17] MEDS: INSULIN ASPART PER UNIT SC SCH ×4 (08:26→20:31)
[2021-10-17] MEDS ORDERED: PATIROMER CALCIUM SORBITEX 8.4 GM PACK PO ONE (09:15)
--- NOTE | 2021-10-17 11:18 | Nephrology Progress Note ---
Date of Service October 17, 2021 Assessment & Plan (1) End stage renal failure on dialysis: Plan: * Volume status and electrolyte balance are acceptable. No acute indication for HD today. Will plan next treatment for Monday * Outpatient HD: [facility], MWF 3.5 hrs, F-180NR, 3K 2.5Ca, EDW 78.5, TDC * No heparin with dialysis (HIT Ab +) * Mild hyperkalemia this am. Will add low K restriction to diet order and provide one dose oral Patiromer (2) Heparin induced thrombocytopenia (HIT): Plan: * Avoid heparin * HIT + 01/09 & (3) Hypertension: Plan: * Mildly elevated today. Expect this will come down w/ HD tomorrow * Continue carvedilol, hydralazine and Furosemide (4) Anemia: Plan: * Mild, asymptomatic anemia * Will provide RANDY w/ HD treatments (5) Diabetic foot ulcer: Plan: * 10/14/21 MRI negative for osteomyelitis * 10/14 wound culture: mixed carla. Received 750 mg Vanco IV 10/15. Currently on IV Ceftriaxone * 10/16 Ortho recommendations: No acute indication for surgical intervention at this time. Patient is scheduled for a right pantalar fusion with a retrocalcaneal nail 11/17/21. It is recommended that she remain nonweightbearing on the right lower extremity until that time to avoid a recurrent ulceration at the fifth metatarsal base Admission and Anticipated Discharge Date Admission Date: October 14, 2021 Subjective Ms. Riley was evaluated in her hospital room this morning. The discomfort from her RLE cellulitis is improving. She voices no new medical concerns Review of Systems Constitutional: + weakness; no fever Eyes: no worsening vision Ear, Nose, Mouth, Throat: no problem reported Respiratory: no dyspnea Cardiovascular: no chest pain and no palpitations Gastrointestinal: no abdominal pain, no nausea, no vomiting and no diarrhea/loose stools Genitourinary: no dysuria and no hematuria Musculoskeletal: no back pain Integumentary: no rash Neurologic: no confusion Physical Exam Constitutional: not in distress Eyes: PERRL ENMT: external ear and nose normal, oropharynx normal Neck: trachea midline, no thyromegaly R IJ TCC w/ clean, dry dressing Respiratory: normal respiratory effort, lungs clear to auscultation Cardiovascular: RRR, no murmur, no edema Rate/Rhythm: regular rate and regular rhythm Extremities: + edema (1+ pretibial edema. Mild erythema involving RLE) Gastrointestinal (Abdomen): normal bowel sounds, soft, nontender, no hepatosplenomegaly Results & Data ([facility]) Vital Signs (Past 12 Hours) Vital Signs Temp Pulse Pulse Resp BP Pulse Ox 10/17/21 10:43 36.7 C 66 18 166/73 H 93 10/17/21 07:19 59 L 10/17/21 06:51 36.4 C L 61 18 163/78 H 94 10/17/21 02:56 36.3 C L 63 16 152/71 H 91 Laboratory Results Laboratory Tests 10/17/21 10/17/21 06:28 06:28 WBC 6.81 Hgb 11.0 L Hct 35.1 L Plt Count 156 Sodium 138 Potassium 5.3 H Chloride 105 Carbon Dioxide 22 BUN 59 H Creatinine 6.36 H* D Glucose 132 H Calcium 9.3 Magnesium 2.2 PG Care Time/CCT Total # of Minutes Spent Total Time Spent with Patient: Total time spent is greater than 50% in coordination of care (as documented) at patient's floor/unit and/or counseling patient: Coding Level of Care Code 21211 Subseq Hosp Care Lvl 3 Diagnoses End stage renal failure on dialysis N18.6; Z99.2 Heparin induced thrombocytopenia (HIT) D75.82 Hypertension I10 Hypertension type: unspecified Anemia D64.9 Anemia type: unspecified type Diabetic foot ulcer E11.621; L97.509 (1) Hypertension Hypertension type: unspecified Qualified Code(s): I10 - Essential (primary) hypertension (2) Anemia Anemia type: unspecified type Qualified Code(s): D64.9 - Anemia, unspecified
--- NOTE | 2021-10-17 13:30 | Pharmacy Report ---
Pharmacy Glycemic Short Note 2 - Date of Service October 17, 2021 - Glycemic Short BSG Results (Last 24 hours): 10/16/21 10/16/21 10/17/21 16:29 20:33 06:28 Glucose 132 H POC Glucose 165 H 123 H 10/17/21 10/17/21 07:21 11:30 Glucose POC Glucose 134 H 198 H OUTPATIENT ANTIDIABETIC REGIMEN: * Lantus 30 units SQ qAM * HbA1c: 7.8% (10/15/21) ASSESSMENT: * Ms Riley is a 66yo diabetic F admitted with R foot cellulitis/diabetic foot ulcer. * Other PMH includes ESRD on HD (MWF), diabetic retinopathy/neuropathy, CHF, hx osteomyelitis, hx CVA * Pt is known to pharmacy glycemic mgmt service from past admission(s). Basal/bolus insulin regimen initiated on admission guided by previous data. * BSGs have been relatively stable. * No changes required today. Will consider tightening Novolog parameters tomorrow. PLAN FOR INPATIENT GLYCEMIC CONTROL: * Hold outpatient oral diabetes medications * Basal insulin * Lantus 5 units SQ daily * Bolus insulin * NovoLog per scale ACHS or Q6hrs while NPO * Goal Range: Low 110 mg/dL - High 140 mg/dL * Correction Factor: 25 mg/dL/unit * Nutritional / Prandial insulin per carb ratio of 1 unit per 7 grams CHO consumed
[2021-10-17] MEDS: GABAPENTIN 100 MG CAP PO SCH (20:21)
[2021-10-17] MEDS: cefTRIAXone SODIUM 1,000 MG in DEXTROSE 5% 50 ML IV SCH (22:40)
[2021-10-18 06:27] LABS: Hematocrit (blood only) 35.6 % (37-47); Hemoglobin 11.1 g/dL (12.0-16.0); Mean Corpuscular Hemoglobin 31.4 pg (25-34); Mean Corpuscular Hgb Conc 31.2 g/dL (32-36); Mean Corpuscular Volume 100.6 fL (80-100); Mean Platelet Volume 10.4 fL (7.4-10.4); Platelet Count 185 K/uL (130-400); RDW Coefficient of Variation 15.5 % (11.5-14.5); RDW Standard Deviation 56.8 fL (36.4-46.3); Red Blood Count 3.54 M/uL (4.2-5.4); White Blood Count 8.39 K/uL (4.8-10.8)
[2021-10-18 06:51] LABS: Calcium 9.6 mg/dl (8.5-10.1); Creatinine Clr Calc Pharmacy 6.9 ml/min; Est GFR (African American) 5.9 ml/min; Est GFR (Non-African American) 5.1 ml/min; Potassium 5.3 mmol/L (3.5-5.1)
[2021-10-18 06:53] LABS: Partial Thromboplastin Ratio 1.1; Partial Thromboplastin Time 30.2 Seconds (21.0-31.0)
[2021-10-18] MEDS ORDERED: SODIUM CHLORIDE 0.9% 1000ML 1,000 ML IV PRN (07:00)
[2021-10-18] MEDS: hydrALAZINE HCL 25 MG TAB PO SCH ×3 (08:45→22:03)
[2021-10-18] MEDS: DORZOLAMIDE/TIMOLOL 22.3/6.8MG/ML 10 ML BTL OP SCH ×2 (08:45→22:04)
[2021-10-18] MEDS: carvediloL 12.5 MG TAB PO SCH ×2 (08:46→22:04)
[2021-10-18] MEDS: ATORVASTATIN 40 MG TAB PO SCH (08:46)
[2021-10-18] MEDS: FUROSEMIDE 40 MG TAB PO SCH ×2 (08:46→18:00)
[2021-10-18] MEDS: CALCIUM ACETATE 667 MG CAP/TAB PO SCH ×2 (08:47→13:09)
[2021-10-18] MEDS: APIXABAN 5 MG TABLET PO SCH ×2 (08:47→22:04)
[2021-10-18] MEDS: MULTIVITAMIN TAB PO SCH (08:48)
[2021-10-18] MEDS: CHOLECALCIFEROL 1,000 UNITS 25 MCG TAB PO SCH (08:48)
[2021-10-18] MEDS: INSULIN GLARGINE SOLOSTAR 100 UNITS/ML 3 ML PEN SC SCH (08:49)
--- NOTE | 2021-10-18 08:53 | Nephrology Progress Note ---
Date of Service October 18, 2021 Assessment & Plan (1) End stage renal failure on dialysis: Plan: * Will provide heparin free HD this am. Orders have been placed in EMR and HD RN notified * Outpatient HD: [facility], MWF 3.5 hrs, F-180NR, 3K 2.5Ca, EDW 78.5, TDC * No heparin with dialysis (HIT Ab +) * PRP in am (2) Heparin induced thrombocytopenia (HIT): Plan: * Avoid heparin * HIT + 01/09 & (3) Hypertension: Plan: * BP currently acceptable * Continue carvedilol, hydralazine and Furosemide (4) Anemia: Plan: * Mild, asymptomatic anemia * Hgb above target of 10 - 11. Hold RANDY at this time (5) Diabetic foot ulcer: Plan: * 10/14/21 MRI negative for osteomyelitis * 10/14 wound culture: mixed carla. Received 750 mg Vanco IV 10/15. Currently on IV Ceftriaxone * 10/16 Ortho recommendations: No acute indication for surgical intervention at this time. Patient is scheduled for a right pantalar fusion with a retrocalcaneal nail 11/17/21. It is recommended that she remain nonweightbearing on the right lower extremity until that time to avoid a recurrent ulceration at the fifth metatarsal base * R foot examined today. Cellulitis appears to be improving. Patient will need podiatry evaluation following hospitalization for routine diabetic foot care and management of onychomycosis Admission and Anticipated Discharge Date Admission Date: October 14, 2021 Subjective Ms. Riley was evaluated in her hospital room this morning. The discomfort from her RLE cellulitis is improving. She is awating HD this am and voices no new medical concerns Review of Systems Constitutional: + weakness; no fever Eyes: no worsening vision Ear, Nose, Mouth, Throat: no problem reported Respiratory: no dyspnea Cardiovascular: no chest pain and no palpitations Gastrointestinal: no abdominal pain, no nausea, no vomiting and no diarrhea/loose stools Genitourinary: no dysuria and no hematuria Musculoskeletal: no back pain Integumentary: no rash Neurologic: no confusion Physical Exam Constitutional: not in distress Eyes: PERRL ENMT: external ear and nose normal, oropharynx normal Neck: trachea midline, no thyromegaly Respiratory: normal respiratory effort, lungs clear to auscultation Cardiovascular: RRR, no murmur, no edema Rate/Rhythm: regular rate and regular rhythm Extremities: + edema (1+ pretibial edema. Mild erythema involving RLE) Gastrointestinal (Abdomen): normal bowel sounds, soft, nontender, no hepatosplenomegaly Results & Data ([facility]) Vital Signs (Past 12 Hours) Vital Signs Temp Pulse Pulse Resp BP Pulse Ox 10/18/21 06:24 36.5 C 65 18 171/71 H 96 10/18/21 03:18 36.5 C 66 18 112/70 94 10/17/21 23:00 36.8 C 74 18 190/79 H 94 10/17/21 22:20 63 Laboratory Results Laboratory Tests 10/18/21 10/18/21 05:54 05:54 WBC 8.39 Hgb 11.1 L Hct 35.6 L Plt Count 185 Sodium 137 Potassium 5.3 H Chloride 105 Carbon Dioxide 18 L BUN 83 H D Creatinine 7.57 H* D Glucose 185 H Calcium 9.6 PG Care Time/CCT Total # of Minutes Spent Total Time Spent with Patient: Total time spent is greater than 50% in coordination of care (as documented) at patient's floor/unit and/or counseling patient: Coding Level of Care Code 79074 Subseq Hosp Care Lvl 3 Diagnoses End stage renal failure on dialysis N18.6; Z99.2 Heparin induced thrombocytopenia (HIT) D75.82 Hypertension I10 Hypertension type: unspecified Anemia D64.9 Anemia type: unspecified type Diabetic foot ulcer E11.621; L97.509 (1) Anemia Anemia type: unspecified type Qualified Code(s): D64.9 - Anemia, unspecified (2) Hypertension Hypertension type: unspecified Qualified Code(s): I10 - Essential (primary) hypertension
[2021-10-18] MEDS: INSULIN ASPART PER UNIT SC SCH ×4 (08:54→22:06)
--- NOTE | 2021-10-18 08:55 | Pharmacy Report ---
Pharmacy [facility] Short Note - Date of Service October 18, 2021 - Assessment & Plan Assessment 66 year old F receiving Vancomycin and Rocephin for treatment of R foot cellulitis. Pertinent microbiologic data includes: Negative MRSA nasal swab and negative blood cultures Typically receives HD every M// as an outpatient Plan Vancomycin * Random vancomycin level this AM 19.5 mcg/ml - HD ordered for today * Will give 500 mg x 1 of vancomycin post dialysis * Unsure of HD schedule while admitted - will follow * Random level will be obtained prior to next HD session Pharmacy will continue to follow and will adjust dose/frequency as necessary. Thank you.
--- NOTE | 2021-10-18 08:59 | Hospitalist Progress Note ---
Date of Service October 18, 2021 Assessment & Plan (1) Cellulitis of foot, right: (2) Diabetic foot ulcer: (3) Type 2 diabetes mellitus: (4) End stage renal failure on dialysis: (5) Chronic diastolic CHF (congestive heart failure): (6) Diabetic neuropathy: (7) Hypertension: Plan: This is a 66-year-old female w/ insulin-dependent T2DM, end-stage renal disease on hemodialysis Monday, diabetic retinopathy, diabetic neuropathy, chronic HFpEF, history of osteomyelitis of right foot, anemia of renal disease, history of DVT, history of CVA, steal syndrome to left arm who presents to ER secondary to worsening redness and cellulitis on right foot x1 week. Right lower extremity cellulitis including right foot Healing right lateral midfoot diabetic ulcer Diabetic neuropathy History of right foot osteomyelitis treated with IV vancomycin 03/2021-05/2021 admitted to tele started IV vancomycin and rocephin empirically Consulted Dr Acharya - ingrid Infectious disease last note recommendation is for pb ne bx given recurrence of cellulitis Obtained MRI R foot to eval for OM FINDINGS: There is a normal marrow signal intensity seen throughout the visualized osseous structures of the right foot. The marrow edema at the base of the fifth metatarsal has resolved in the interval. No areas of cortical destruction to suggest an osteomyelitis. No fracture or dislocation. The Lisfranc joint is intact. Extensive subcutaneous and deep soft tissue edema seen throughout the foot, unchanged. There is also edema within the plantar muscles which is also unchanged. This may represent chronic denervation injury. No loculated fluid collections to suggest an abscess. No joint effusions. The flexor and extensor tendons appear intact. Mild degenerative changes again noted within the foot. IMPRESSION: 1. No abnormal marrow signal or cortical destruction to suggest an osteomyelitis within the right forefoot. 2. Diffuse subcutaneous and soft tissue edema seen throughout the right foot, unchanged. Per orthopedics At this time, there is not appear to be a need for surgical intervention. She is scheduled for a right pantalar fusion with a retrocalcaneal nail for November 17. We discussed that it be recommended that she remain nonweightbearing on the right lower extremity until that time to avoid a recurrent ulceration at the fifth metatarsal base. Continue antibiotic treatment per the hospitalist team. I also discussed with the patient that the cellulitis will need to be resolved if we were to proceed with her surgery in approximately 5 weeks. Blood cultx - ngtd Surface culture obtained in ED - Gram Stain Final 10/14/21-2013 Gram Stain Result No WBCs Seen Few Gram Positive Cocci Surface Wound Culture Final 10/16/21-1101 Moderate counts mixed probable skin microbiota. No further identifications or sensitivities to follow. Clinic culture grew coag negative staph Wound care consult Cont. IV Abx , discuss w/ ID further plan (likely on Monday) Arterial Duplex LE done 06/2021: IMPRESSION: While there is patent arterial flow bilaterally, there is significantly elevated flow velocity present at multiple sites bilaterally representing sites of focal stenosis. Consider consulting vascular if no improvement Eliquis resumed ESR 67, CRP ESRD on HD MWF consult [facility] nephro Dr. Ambrocio continue phos lo and velphoro monitor mag, phos electrolytes stable, on room air Insulin-dependent T2DM Diabetic neuropathy Diabetic nephropathy Diabetic retinopathy last a1c 6.4 on 06/10/21 Current Hba1c 7.8% Lantus/novolog per protocol consult glycemic pharmacy continue gabapentin Anemia of renal disease hgb stable at 11.8 no s/ sx of bleeding HTN continue hydralazine, coreg DVT ppx: Eliquis Dispo: Tele, pt needs IV antibiotics, ortho eval, eventual ID consult, will remain hospitalized for next 1-2 days PCP: Dr. Bronson FULL CODE Admission and Anticipated Discharge Date Admission Date: October 14, 2021 Subjective Patient seen in follow-up of her right foot infection, possible osteomyelitis She is currently sitting up in bed, in no acute distress Denies fevers, chills, chest pain, shortness of breath, abdominal pain, nausea vomiting Right foot erythema much improved MRI of right foot obtained, orthopedics consulted as well ID consult pending Review of Systems Review of Systems: All systems reviewed & are unremarkable except as noted in Subjective Physical Exam Physical Exam: Constitutional: WD/WN, NAD, sitting up in bed, pleasant, conversing easily Head: Normocephalic, Atraumatic Eyes: PERRL, EOMI, conjunctivae normal, anicteric sclerae ENMT: external ear and nose normal, oropharynx normal Neck:normal visual inspection, supple Respiratory: normal respiratory effort, lungs clear to auscultation, no wheeze, rales, rhonchi. Cardiovascular: RRR, no murmur, b/l lower ext erythema, R > L, R extends up prox tibial surface (much improved now), warm to touch, healing wound to R lateral midfoot, no drainage, palpable pulses b/l, +2 Chest: normal inspection of chest, RACW port a cath noted, LUE AV fistula nonfunctional Abdomen: normal bowel sounds, soft, nontender Musculoskeletal:AROM x 4, R ankle with inversion Skin: no rashes, warm and dry normal turgor Neurologic: PERRL, EOMI, no face palsy, no dysarthria, moves all extremities Psychiatric: A+Ox3, euthymic affect Results & Data Results & Data ([facility]) Vital Signs (Past 12 Hours) Vital Signs Temp Pulse Pulse Resp BP Pulse Ox 10/18/21 06:24 36.5 C 65 18 171/71 H 96 10/18/21 03:18 36.5 C 66 18 112/70 94 10/17/21 23:00 36.8 C 74 18 190/79 H 94 10/17/21 22:20 63 Laboratory Results 10/18/21 10/18/21 10/18/21 Range/Units 07:28 05:54 05:54 WBC 8.39 (4.8-10.8) K/uL RBC 3.54 L (4.2-5.4) M/uL Hgb 11.1 L (12.0-16.0) g/dL Hct 35.6 L (37-47) % MCV 100.6 H (80-100) fL MCH 31.4 (25-34) pg MCHC 31.2 L (32-36) g/dL RDW Std Deviation 56.8 H (36.4-46.3) fL RDW Coeff of Rico 15.5 H (11.5-14.5) % Plt Count 185 (130-400) K/uL MPV 10.4 (7.4-10.4) fL APTT (21.0-31.0) Seconds PTT Ratio Sodium (136-145) mmol/L Potassium (3.5-5.1) mmol/L Chloride (98-107) mmol/L Carbon Dioxide (21-32) mmol/L Anion Gap (3-11) BUN (6-23) mg/dl Creatinine (0.6-1.2) mg/dl Est Cr Clr Drug Dosing ml/min Est GFR ( Amer) ml/min Est GFR (Non-Af Amer) ml/min BUN/Creatinine Ratio (10-20) Glucose (70-99(Fasting)) mg/dl POC Glucose 197 H (70-99) mg/dl Calcium (8.5-10.1) mg/dl Random Vancomycin 19.5 (10-20) mcg/ml 10/18/21 10/18/21 10/17/21 Range/Units 05:54 05:54 20:25 WBC (4.8-10.8) K/uL RBC (4.2-5.4) M/uL Hgb (12.0-16.0) g/dL Hct (37-47) % MCV (80-100) fL MCH (25-34) pg MCHC (32-36) g/dL RDW Std Deviation (36.4-46.3) fL RDW Coeff of Rico (11.5-14.5) % Plt Count (130-400) K/uL MPV (7.4-10.4) fL APTT 30.2 (21.0-31.0) Seconds PTT Ratio 1.1 Sodium 137 (136-145) mmol/L Potassium 5.3 H (3.5-5.1) mmol/L Chloride 105 (98-107) mmol/L Carbon Dioxide 18 L (21-32) mmol/L Anion Gap 14 H (3-11) BUN 83 H D (6-23) mg/dl Creatinine 7.57 H* D (0.6-1.2) mg/dl Est Cr Clr Drug Dosing 6.9 ml/min Est GFR ( Amer) 5.9 ml/min Est GFR (Non-Af Amer) 5.1 ml/min BUN/Creatinine Ratio 11.0 (10-20) Glucose 185 H (70-99(Fasting)) mg/dl POC Glucose 157 H (70-99) mg/dl Calcium 9.6 (8.5-10.1) mg/dl Random Vancomycin (10-20) mcg/ml 10/17/21 10/17/21 Range/Units 16:42 11:30 WBC (4.8-10.8) K/uL RBC (4.2-5.4) M/uL Hgb (12.0-16.0) g/dL Hct (37-47) % MCV (80-100) fL MCH (25-34) pg MCHC (32-36) g/dL RDW Std Deviation (36.4-46.3) fL RDW Coeff of Rico (11.5-14.5) % Plt Count (130-400) K/uL MPV (7.4-10.4) fL APTT (21.0-31.0) Seconds PTT Ratio Sodium (136-145) mmol/L Potassium (3.5-5.1) mmol/L Chloride (98-107) mmol/L Carbon Dioxide (21-32) mmol/L Anion Gap (3-11) BUN (6-23) mg/dl Creatinine (0.6-1.2) mg/dl Est Cr Clr Drug Dosing ml/min Est GFR ( Amer) ml/min Est GFR (Non-Af Amer) ml/min BUN/Creatinine Ratio (10-20) Glucose (70-99(Fasting)) mg/dl POC Glucose 147 H 198 H (70-99) mg/dl Calcium (8.5-10.1) mg/dl Random Vancomycin (10-20) mcg/ml Medications Administered Current Inpatient Medications Acetaminophen (Acetaminophen 325 Mg Tab) 650 mg PO Q4H PRN PRN Reason: Pain or Fever Stop: 11/13/21 21:51 Apixaban (Apixaban 5 Mg Tablet) 5 mg PO BID [facility] Stop: 11/14/21 20:59 Last Admin: 10/18/21 08:47 Dose: 5 mg Documented by: Atorvastatin Calcium (Atorvastatin 40 Mg Tab) 40 mg PO QAM [facility] Stop: 11/14/21 08:59 Last Admin: 10/18/21 08:46 Dose: 40 mg Documented by: Calcium Acetate (Calcium Acetate 667 Mg Cap/Tab) 1,334 mg PO BID@0800,1200 [facility] Stop: 11/14/21 07:59 Last Admin: 10/18/21 08:47 Dose: 1,334 mg Documented by: Carvedilol (Carvedilol 12.5 Mg Tab) 12.5 mg PO BID [facility] Stop: 11/13/21 21:51 Last Admin: 10/18/21 08:46 Dose: 12.5 mg Documented by: Dextrose (Dextrose 50% 50 Ml Syringe) 25 - 50 ml IV UD PRN; Protocol PRN Reason: Hypoglycemia Protocol Stop: 11/13/21 21:51 Dorzolamide/Timolol (Dorzolamide/Timolol 22.3/6.8mg/Ml 10 Ml Btl) 1 drops OP BID [facility] Stop: 11/13/21 21:51 Last Admin: 10/18/21 08:45 Dose: 1 drops Documented by: Furosemide (Furosemide 40 Mg Tab) 40 mg PO BID17 [facility] Stop: 11/13/21 21:51 Last Admin: 10/18/21 08:46 Dose: 40 mg Documented by: Gabapentin (Gabapentin 100 Mg Cap) 100 mg PO HS [facility] Stop: 11/13/21 21:51 Last Admin: 10/17/21 20:21 Dose: 100 mg Documented by: Glucagon (Glucagon For Inj 1 Mg Vial) 1 mg SQ UD PRN; Protocol PRN Reason: Hypoglycemia Protocol Stop: 11/13/21 21:51 Glucose (Glucose 10 Tabs/Tube) 4 - 8 tabs PO UD PRN; Protocol PRN Reason: Hypoglycemia Protocol Stop: 11/13/21 21:51 Glucose (Glucose 40% Gel 15 Gm Tube) 15 - 30 gm PO UD PRN; Protocol PRN Reason: Hypoglycemia Protocol Stop: 11/13/21 21:51 Hydralazine HCl (Hydralazine Hcl 25 Mg Tab) 25 mg PO TID [facility] Stop: 11/13/21 21:51 Last Admin: 10/18/21 08:45 Dose: 25 mg Documented by: Hydralazine HCl (Hydralazine Hcl 20 Mg/Ml Vial) 10 mg IV Q6 PRN PRN Reason: HypertensionSBP>180 OR DBP>100 Stop: 11/13/21 21:51 Last Admin: 10/18/21 00:17 Dose: 10 mg Documented by: Ceftriaxone Sodium 1,000 mg/ (Dextrose) 60 mls @ 100 mls/hr IV Q24H [facility]; Protocol Stop: 10/21/21 21:59 Last Infusion: 10/17/21 23:26 Dose: Infused Documented by: Sodium Chloride (Nss 1000ml) 1,000 mls @ 0 mls/hr IV .Q0M PRN PRN Reason: For Hemodialysis Use ONLY Stop: 10/18/21 12:59 Vancomycin HCl 500 mg/ (Dextrose) 110 mls @ 132 mls/hr IV TODAY@1600 [facility] Stop: 10/18/21 16:49 Insulin Aspart (Insulin Aspart Per Unit) 0 units SC ACHS [facility] Stop: 11/14/21 17:59 Last Admin: 10/18/21 08:54 Dose: 7 units Documented by: Insulin Glargine (Insulin Glargine Solostar 100 Units/Ml 3 Ml Pen) 5 units SC DAILY [facility] Stop: 11/15/21 09:59 Last Admin: 10/18/21 08:49 Dose: 5 units Documented by: Miscellaneous (Carbohydrates For Hypoglycemia ) 15 - 30 gm PO UD PRN PRN Reason: Hypoglycemia Protocol Stop: 11/13/21 21:51 Miscellaneous (Velphoro - Order Awaiting Action) 1 ea N/A QS [facility] Stop: 11/14/21 00:00 Last Admin: 10/18/21 08:48 Dose: Not Given Documented by: Miscellaneous Information (Pharmacy Glycemic Mgmt Consult) 1 ea N/A UD PRN; Protocol PRN Reason: Consult Stop: 11/13/21 21:51 Miscellaneous Information (Vancomycin Consult Active) 1 ea N/A UD PRN PRN Reason: Consult Stop: 11/13/21 21:51 [facility]ivitamins ([facility]ivitamin Tab) [facility] [place] Stop: 11/14/21 08:59 Last Admin: 10/18/21 08:48 Dose: 1 tab Documented by: Ondansetron HCl (Ondansetron Inj 2 Mg/Ml 2 Ml Vial) 4 mg IV Q6H PRN PRN Reason: Nausea Stop: 11/13/21 21:51 Polyethylene Glycol (Polyethylene (Miralax) 17 Gm Pack) 17 gm PO DAILY PRN PRN Reason: Constipation Stop: 11/13/21 21:51 Vitamin B Complex/Folic Acid (Nephrocaps) [facility] [place] Stop: 11/14/21 08:59 Last Admin: 10/17/21 08:19 Dose: 1 cap Documented by: Vitamin D (Cholecalciferol 1,000 Units 25 Mcg Tab) 2,000 [facility] [place] Stop: 11/14/21 08:59 Last Admin: 10/18/21 08:48 Dose: 2,000 units Documented by: (1) Type 2 diabetes mellitus Chronic kidney disease stage: on chronic dialysis Diabetes mellitus complication detail: with chronic kidney disease Diabetes mellitus complication status: with kidney complications 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
--- NOTE | 2021-10-18 12:41 | Pharmacy Report ---
Pharmacy Glycemic Short Note 2 - Date of Service October 18, 2021 - Glycemic Short BSG Results (Last 24 hours): 10/17/21 10/17/21 10/18/21 16:42 20:25 05:54 Glucose 185 H POC Glucose 147 H 157 H 10/18/21 07:28 Glucose POC Glucose 197 H OUTPATIENT ANTIDIABETIC REGIMEN: * Lantus 30 units SQ qAM * HbA1c: 7.8% (10/15/21) ASSESSMENT: 10/18/21 * Fasting blood sugar 197mg/dl this AM, despite 1 unit of correctional insulin at bedtime last night * Add Lantus at HS for BSG 140mg/dl or greater * No further changes at this time 10/17/21 * Ms Riley is a 66yo diabetic F admitted with R foot cellulitis/diabetic foot ulcer. * Other PMH includes ESRD on HD (MWF), diabetic retinopathy/neuropathy, CHF, hx osteomyelitis, hx CVA * Pt is known to pharmacy glycemic mgmt service from past admission(s). Basal/bolus insulin regimen initiated on admission guided by previous data. * BSGs have been relatively stable. * No changes required today. Will consider tightening Novolog parameters tomorrow. PLAN FOR INPATIENT GLYCEMIC CONTROL: * Basal insulin * Lantus 5 units SQ daily * Lantus 5 units HS for BSG 140mg/dl or greater * Bolus insulin * NovoLog per scale ACHS or Q6hrs while NPO * Goal Range: Low 110 mg/dL - High 140 mg/dL * Correction Factor: 25 mg/dL/unit * Nutritional / Prandial insulin per carb ratio of 1 unit per 7 grams CHO consumed
[2021-10-18] MEDS: NEPHROCAPS PO SCH (13:08)
[2021-10-18] MEDS ORDERED: VANCOMYCIN HCL 500 MG in DEXTROSE 5% 100 ML IV SCH (16:00)
[2021-10-18] MEDS ORDERED: INSULIN GLARGINE SOLOSTAR 100 UNITS/ML 3 ML PEN SC SCH (21:00)
[2021-10-18] MEDS: GABAPENTIN 100 MG CAP PO SCH (22:04)
[2021-10-18] MEDS: cefTRIAXone SODIUM 1,000 MG in DEXTROSE 5% 50 ML IV SCH (23:22)
[2021-10-19 06:22] LABS: Partial Thromboplastin Ratio 1.1; Partial Thromboplastin Time 29.8 Seconds (21.0-31.0)
[2021-10-19 06:28] LABS: BUN Creatinine Ratio 10.4 (10-20); Calcium 9.4 mg/dl (8.5-10.1); Creatinine Clr Calc Pharmacy 8.8 ml/min; Est GFR (Non-African American) 6.9 ml/min; Potassium 5.2 mmol/L (3.5-5.1)
[2021-10-19] MEDS: carvediloL 12.5 MG TAB PO SCH (08:38)
[2021-10-19] MEDS: FUROSEMIDE 40 MG TAB PO SCH ×2 (08:38→18:34)
[2021-10-19] MEDS: hydrALAZINE HCL 25 MG TAB PO SCH ×2 (08:38→13:46)
[2021-10-19] MEDS: APIXABAN 5 MG TABLET PO SCH (08:38)
[2021-10-19] MEDS: DORZOLAMIDE/TIMOLOL 22.3/6.8MG/ML 10 ML BTL OP SCH (08:39)
[2021-10-19] MEDS: CHOLECALCIFEROL 1,000 UNITS 25 MCG TAB PO SCH (08:39)
[2021-10-19] MEDS: ATORVASTATIN 40 MG TAB PO SCH (08:39)
[2021-10-19] MEDS: MULTIVITAMIN TAB PO SCH (08:40)
[2021-10-19] MEDS: INSULIN GLARGINE SOLOSTAR 100 UNITS/ML 3 ML PEN SC SCH (08:40)
[2021-10-19] MEDS: INSULIN ASPART PER UNIT SC SCH ×3 (08:47→18:12)
[2021-10-19] MEDS: CALCIUM ACETATE 667 MG CAP/TAB PO SCH ×2 (08:56→13:15)
[2021-10-19] MEDS ORDERED: PATIROMER CALCIUM SORBITEX 8.4 GM PACK PO ONE (08:57)
--- NOTE | 2021-10-19 08:59 | Nephrology Progress Note ---
Date of Service October 19, 2021 Assessment & Plan (1) End stage renal failure on dialysis: Plan: * Volume status is acceptable * Patient has mild hyperkalemia. Will order low K diet and one dose Patiromer this am * Outpatient HD: [facility], MWF 3.5 hrs, F-180NR, 3K 2.5Ca, EDW 78.5, TDC * No heparin with dialysis (HIT Ab +) * Will schedule next HD for am (2) Heparin induced thrombocytopenia (HIT): Plan: * Avoid heparin * HIT + 01/09 & (3) Hypertension: Plan: * BP currently acceptable * Continue carvedilol, hydralazine and Furosemide (4) Anemia: Plan: * Mild, asymptomatic anemia * Hgb above target of 10 - 11. Hold RANDY at this time (5) Diabetic foot ulcer: Plan: * 10/14/21 MRI negative for osteomyelitis * 10/14 wound culture: mixed carla. Received 750 mg Vanco IV 10/15. Currently on IV Ceftriaxone * 10/16 Ortho recommendations: No acute indication for surgical intervention at this time. Patient is scheduled for a right pantalar fusion with a retrocalcaneal nail 11/17/21. It is recommended that she remain nonweightbearing on the right lower extremity until that time to avoid a recurrent ulceration at the fifth metatarsal base * R foot examined today. Cellulitis appears to be improving. Patient will need podiatry evaluation following hospitalization for routine diabetic foot care and management of onychomycosis. Consider appt w/ Dr. Nannette Cueva Admission and Anticipated Discharge Date Admission Date: October 14, 2021 Subjective Ms. Riley was evaluated in her hospital room this morning. The discomfort from her RLE cellulitis has resolved. She voices no new medical concerns Review of Systems Constitutional: + weakness; no fever Eyes: no worsening vision Ear, Nose, Mouth, Throat: no problem reported Respiratory: no dyspnea Cardiovascular: no chest pain and no palpitations Gastrointestinal: no abdominal pain, no nausea, no vomiting and no diarrhea/loose stools Genitourinary: no dysuria and no hematuria Musculoskeletal: no back pain Integumentary: no rash Neurologic: no confusion Physical Exam Constitutional: not in distress Eyes: PERRL ENMT: external ear and nose normal, oropharynx normal Neck: trachea midline, no thyromegaly R IJ TCC with clean, dry dressing in place Respiratory: normal respiratory effort, lungs clear to auscultation Cardiovascular: RRR, no murmur, no edema Rate/Rhythm: regular rate and regular rhythm Extremities: + edema (1+ pretibial edema. Mild erythema involving RLE) Gastrointestinal (Abdomen): normal bowel sounds, soft, nontender, no hepatosplenomegaly Results & Data ([facility]) Vital Signs (Past 12 Hours) Vital Signs Temp Pulse Pulse Pulse Resp BP Pulse Ox 10/19/21 07:11 37.0 C 71 16 165/75 H 92 10/19/21 06:12 59 L 10/19/21 02:59 37.0 C 67 18 124/64 94 10/18/21 23:09 36.9 C 69 18 180/70 H 94 10/18/21 22:25 72 Laboratory Results Laboratory Tests 10/18/21 10/19/21 05:54 05:20 WBC 8.39 Hgb 11.1 L Hct 35.6 L Plt Count 185 Sodium 135 L Potassium 5.2 H Chloride 104 Carbon Dioxide 21 BUN 61 H D Creatinine 5.87 H* D Glucose 165 H PG Care Time/CCT Total # of Minutes Spent Total Time Spent with Patient: Total time spent is greater than 50% in coordination of care (as documented) at patient's floor/unit and/or counseling patient: Coding Level of Care Code 88554 Subseq Hosp Care Lvl 3 Diagnoses End stage renal failure on dialysis N18.6; Z99.2 Heparin induced thrombocytopenia (HIT) D75.82 Hypertension I10 Hypertension type: unspecified Anemia D64.9 Anemia type: unspecified type Diabetic foot ulcer E11.621; L97.509 (1) Anemia Anemia type: unspecified type Qualified Code(s): D64.9 - Anemia, unspecified (2) Hypertension Hypertension type: unspecified Qualified Code(s): I10 - Essential (primary) hypertension
[2021-10-19] MEDS: NEPHROCAPS PO SCH (09:32)
--- NOTE | 2021-10-19 15:02 | Hospitalist Progress Note ---
Date of Service October 19, 2021 Assessment & Plan (1) Cellulitis of foot, right: (2) Diabetic foot ulcer: (3) Type 2 diabetes mellitus: (4) End stage renal failure on dialysis: (5) Chronic diastolic CHF (congestive heart failure): (6) Diabetic neuropathy: (7) Hypertension: Plan: This is a 66-year-old female w/ insulin-dependent T2DM, end-stage renal disease on hemodialysis Monday, diabetic retinopathy, diabetic neuropathy, chronic HFpEF, history of osteomyelitis of right foot, anemia of renal disease, history of DVT, history of CVA, steal syndrome to left arm who presents to ER secondary to worsening redness and cellulitis on right foot x1 week. Right lower extremity cellulitis including right foot Healing right lateral midfoot diabetic ulcer Diabetic neuropathy History of right foot osteomyelitis treated with IV vancomycin 03/2021-05/2021 admitted to tele started IV vancomycin and rocephin empirically Consulted Dr Acharya - ingrid Infectious disease last note recommendation is for pb ne bx given recurrence of cellulitis Obtained MRI R foot to eval for OM FINDINGS: There is a normal marrow signal intensity seen throughout the visualized osseous structures of the right foot. The marrow edema at the base of the fifth metatarsal has resolved in the interval. No areas of cortical destruction to suggest an osteomyelitis. No fracture or dislocation. The Lisfranc joint is intact. Extensive subcutaneous and deep soft tissue edema seen throughout the foot, unchanged. There is also edema within the plantar muscles which is also unchanged. This may represent chronic denervation injury. No loculated fluid collections to suggest an abscess. No joint effusions. The flexor and extensor tendons appear intact. Mild degenerative changes again noted within the foot. IMPRESSION: 1. No abnormal marrow signal or cortical destruction to suggest an osteomyelitis within the right forefoot. 2. Diffuse subcutaneous and soft tissue edema seen throughout the right foot, unchanged. Per orthopedics At this time, there is not appear to be a need for surgical intervention. She is scheduled for a right pantalar fusion with a retrocalcaneal nail for November 17. We discussed that it be recommended that she remain nonweightbearing on the right lower extremity until that time to avoid a recurrent ulceration at the fifth metatarsal base. Continue antibiotic treatment per the hospitalist team. I also discussed with the patient that the cellulitis will need to be resolved if we were to proceed with her surgery in approximately 5 weeks. Blood cultx - ngtd Surface culture obtained in ED - Gram Stain Final 10/14/21-2013 Gram Stain Result No WBCs Seen Few Gram Positive Cocci Surface Wound Culture Final 10/16/21-110 Moderate counts mixed probable skin microbiota. No further identifications or sensitivities to follow. Clinic culture grew coag negative staph Wound care consult Cont. IV Abx , discuss w/ ID further plan (likely on Monday) Arterial Duplex LE done 06/2021: IMPRESSION: While there is patent arterial flow bilaterally, there is significantly elevated flow velocity present at multiple sites bilaterally representing sites of focal stenosis. Consider consulting vascular if no improvement Eliquis resumed ESR 67, CRP 10/19 ID consulted, recommend to switch from IV to p.o. antibiotics, linezolid 600 twice daily, to complete 14-day antibiotic course. ESRD on HD MWF consult [facility] neph[facility] Dr. Ambrocio continue phos lo and velphoro monitor mag, phos electrolytes stable, on room air Insulin-dependent T2DM Diabetic neuropathy Diabetic nephropathy Diabetic retinopathy last a1c 6.4 on 06/10/21 Current Hba1c 7.8% Lantus/novolog per protocol consult glycemic pharmacy continue gabapentin Anemia of renal disease hgb stable at 11.8 no s/ sx of bleeding HTN continue hydralazine, coreg DVT ppx: Eliquis Dispo: Plan to DC home today PCP: Dr. Bronson FULL CODE Admission and Anticipated Discharge Date Admission Date: October 14, 2021 Subjective Patient seen in follow-up of her right foot infection, possible osteomyelitis She is currently sitting up in bed, in no acute distress Denies fevers, chills, chest pain, shortness of breath, abdominal pain, nausea vomiting Right foot erythema much improved MRI of right foot obtained, orthopedics consulted as well ID consulted Review of Systems Review of Systems: All systems reviewed & are unremarkable except as noted in Subjective Physical Exam Physical Exam: Constitutional: WD/WN, NAD, sitting up in bed, pleasant, conversing easily Head: Normocephalic, Atraumatic Eyes: PERRL, EOMI, conjunctivae normal, anicteric sclerae ENMT: external ear and nose normal, oropharynx normal Neck:normal visual inspection, supple Respiratory: normal respiratory effort, lungs clear to auscultation, no wheeze, rales, rhonchi. Cardiovascular: RRR, no murmur, b/l lower ext erythema, R > L, R extends up prox tibial surface (much improved now), warm to touch, healing wound to R lateral midfoot, no drainage, palpable pulses b/l, +2 Chest: normal inspection of chest, RACW port a cath noted, LUE AV fistula nonfunctional Abdomen: normal bowel sounds, soft, nontender Musculoskeletal:AROM x 4, R ankle with inversion Skin: no rashes, warm and dry normal turgor Neurologic: PERRL, EOMI, no face palsy, no dysarthria, moves all extremities Psychiatric: A+Ox3, euthymic affect Results & Data Results & Data ([facility]) Vital Signs (Past 12 Hours) Vital Signs Temp Pulse Pulse Resp BP Pulse Ox 10/19/21 11:27 37.0 C 64 18 164/73 H 93 10/19/21 07:11 37.0 C 71 16 165/75 H 92 10/19/21 06:12 59 L Laboratory Results 10/19/21 10/19/21 10/19/21 Range/Units 11:44 07:52 05:20 APTT (21.0-31.0) Seconds PTT Ratio Sodium 135 L (136-145) mmol/L Potassium 5.2 H (3.5-5.1) mmol/L Chloride 104 (98-107) mmol/L Carbon Dioxide 21 (21-32) mmol/L Anion Gap 10 (3-11) BUN 61 H D (6-23) mg/dl Creatinine 5.87 H* D (0.6-1.2) mg/dl Est Cr Clr Drug Dosing 8.8 ml/min Est GFR ( Amer) 8.0 ml/min Est GFR (Non-Af Amer) 6.9 ml/min BUN/Creatinine Ratio 10.4 (10-20) Glucose 165 H (70-99(Fasting)) mg/dl POC Glucose 171 H 159 H (70-99) mg/dl Calcium 9.4 (8.5-10.1) mg/dl 10/19/21 10/18/21 10/18/21 Range/Units 05:20 20:46 16:50 APTT 29.8 (21.0-31.0) Seconds PTT Ratio 1.1 Sodium (136-145) mmol/L Potassium (3.5-5.1) mmol/L Chloride (98-107) mmol/L Carbon Dioxide (21-32) mmol/L Anion Gap (3-11) BUN (6-23) mg/dl Creatinine (0.6-1.2) mg/dl Est Cr Clr Drug Dosing ml/min Est GFR ( Amer) ml/min Est GFR (Non-Af Amer) ml/min BUN/Creatinine Ratio (10-20) Glucose (70-99(Fasting)) mg/dl POC Glucose 168 H 201 H (70-99) mg/dl Calcium (8.5-10.1) mg/dl Medications Administered Current Inpatient Medications Acetaminophen (Acetaminophen 325 Mg Tab) 650 mg PO Q4H PRN PRN Reason: Pain or Fever Stop: 11/13/21 21:51 Apixaban (Apixaban 5 Mg Tablet) 5 mg PO BID [facility] Stop: 11/14/21 20:59 Last Admin: 10/19/21 08:38 Dose: 5 mg Documented by: Atorvastatin Calcium (Atorvastatin 40 Mg Tab) 40 mg PO QAM JOSE FRANCISCO Stop: 11/14/21 08:59 Last Admin: 10/19/21 08:39 Dose: 40 mg Documented by: Calcium Acetate (Calcium Acetate 667 Mg Cap/Tab) 1,334 mg PO BID@0800,1200 [facility] Stop: 11/14/21 07:59 Last Admin: 10/19/21 13:15 Dose: 1,334 mg Documented by: Carvedilol (Carvedilol 12.5 Mg Tab) 12.5 mg PO BID JOSE FRANCISCO Stop: 11/13/21 21:51 Last Admin: 10/19/21 08:38 Dose: 12.5 mg Documented by: Dextrose (Dextrose 50% 50 Ml Syringe) 25 - 50 ml IV UD PRN; Protocol PRN Reason: Hypoglycemia Protocol Stop: 11/13/21 21:51 Dorzolamide/Timolol (Dorzolamide/Timolol 22.3/6.8mg/Ml 10 Ml Btl) 1 drops OP BID JOSE FRANCISCO Stop: 11/13/21 21:51 Last Admin: 10/19/21 08:39 Dose: 1 drops Documented by: Furosemide (Furosemide 40 Mg Tab) 40 mg PO BID17 JOSE FRANCISCO Stop: 11/13/21 21:51 Last Admin: 10/19/21 08:38 Dose: 40 mg Documented by: Gabapentin (Gabapentin 100 Mg Cap) 100 mg PO HS [facility] Stop: 11/13/21 21:51 Last Admin: 10/18/21 22:04 Dose: 100 mg Documented by: Glucagon (Glucagon For Inj 1 Mg Vial) 1 mg SQ UD PRN; Protocol PRN Reason: Hypoglycemia Protocol Stop: 11/13/21 21:51 Glucose (Glucose 10 Tabs/Tube) 4 - 8 tabs PO UD PRN; Protocol PRN Reason: Hypoglycemia Protocol Stop: 11/13/21 21:51 Glucose (Glucose 40% Gel 15 Gm Tube) 15 - 30 gm PO UD PRN; Protocol PRN Reason: Hypoglycemia Protocol Stop: 11/13/21 21:51 Hydralazine HCl (Hydralazine Hcl 25 Mg Tab) 25 mg PO TID [facility] Stop: 11/13/21 21:51 Last Admin: 10/19/21 13:46 Dose: 25 mg Documented by: Hydralazine HCl (Hydralazine Hcl 20 Mg/Ml Vial) 10 mg IV Q6 PRN PRN Reason: HypertensionSBP>180 OR DBP>100 Stop: 11/13/21 21:51 Last Admin: 10/18/21 00:17 Dose: 10 mg Documented by: Ceftriaxone Sodium 1,000 mg/ (Dextrose) 60 mls @ 100 mls/hr IV Q24H [facility]; Protocol Stop: 10/21/21 21:59 Last Infusion: 10/19/21 00:31 Dose: Infused Documented by: Sodium Chloride (Nss 1000ml) 1,000 mls @ 0 mls/hr IV .Q0M PRN PRN Reason: For Hemodialysis Use ONLY Stop: 10/20/21 12:59 Insulin Aspart (Insulin Aspart Per Unit) 0 units SC ACHS [facility] Stop: 11/14/21 17:59 Last Admin: 10/19/21 12:35 Dose: 8 units Documented by: Insulin Glargine (Insulin Glargine Solostar 100 Units/Ml 3 Ml Pen) 5 units SC DAILY [facility] Stop: 11/15/21 09:59 Last Admin: 10/19/21 08:40 Dose: 5 units Documented by: Insulin Glargine (Insulin Glargine Solostar 100 Units/Ml 3 Ml Pen) 0 units SC [facility]; Protocol Stop: 11/17/21 20:59 Last Admin: 10/18/21 22:05 Dose: 5 units Documented by: Miscellaneous (Carbohydrates For Hypoglycemia ) 15 - 30 gm PO UD PRN PRN Reason: Hypoglycemia Protocol Stop: 11/13/21 21:51 Miscellaneous (Velphoro - Order Awaiting Action) 1 ea N/A QS [facility] Stop: 11/14/21 00:00 Last Admin: 10/19/21 09:34 Dose: Not Given Documented by: Miscellaneous (No Heparin In Dialysis) 1 ea N/A ONE ONE Stop: 10/20/21 07:01 Miscellaneous Information (Pharmacy Glycemic Mgmt Consult) 1 ea N/A UD PRN; Pro tocol PRN Reason: Consult Stop: 11/13/21 21:51 Miscellaneous Information (Vancomycin Consult Active) 1 ea N/A UD PRN PRN Reason: Consult Stop: 11/13/21 21:51 Multivitamins (Multivitamin Tab) 1 tab PO [facility] Stop: 11/14/21 08:59 Last Admin: 10/19/21 08:40 Dose: 1 tab Documented by: Ondansetron HCl (Ondansetron Inj 2 Mg/Ml 2 Ml Vial) 4 mg IV Q6H PRN PRN Reason: Nausea Stop: 11/13/21 21:51 Polyethylene Glycol (Polyethylene (Miralax) 17 Gm Pack) 17 gm PO DAILY PRN PRN Reason: Constipation Stop: 11/13/21 21:51 Vitamin B Complex/Folic Acid (Nephrocaps) 1 cap PO [facility] Stop: 11/14/21 08:59 Last Admin: 10/19/21 09:32 Dose: 1 cap Documented by: Vitamin D (Cholecalciferol 1,000 Units 25 Mcg Tab) 2,000 units PO [facility] Stop: 11/14/21 08:59 Last Admin: 10/19/21 08:39 Dose: 2,000 units Documented by: (1) Type 2 diabetes mellitus Chronic kidney disease stage: on chronic dialysis Diabetes mellitus complication detail: with chronic kidney disease Diabetes mellitus complication status: with kidney complications 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
--- NOTE | 2021-10-19 15:33 | Discharge Summary ---
Date of Service October 19, 2021 Admission HPI Per Admitting Provider This is a 66-year-old female who has significant past medical history of insulin-dependent T2DM, end-stage renal disease on hemodialysis Monday, diabetic retinopathy, diabetic neuropathy, chronic HFpEF, history of osteomyelitis of right foot, anemia of renal disease, history of DVT, history of CVA, steal syndrome to left arm who presents to ER secondary to worsening redness and cellulitis on right foot x1 week. Of significance patient has prior history of right foot osteomyelitis in the past. Her most recent hospitalization was in March 2021. MRI was performed at that time which again revealed possible osteomyelitis. She was started on IV antibiotics. She was seen and evaluated by orthopedics who did not feel surgical intervention warranted at that time. Infectious disease was consulted who recommended 6-week course of IV vancomycin. She completed antibiotic without difficulty. Per infectious disease recommendation was if infection recurs obtain bone biopsy for organisms identification. She did follow-up with infectious disease in May 2021. At that point her right foot was doing well. She was seen in outpatient clinic approximately 1 week ago. A surface culture was obtained which grew coag negative staph. She was started on Keflex and has been on this for approximately 1 week without significant improvement. She was seen in clinic today for follow-up and recommended to seek ED due to worsening infection. Her last tx of HD was yesterday. Her redness started 1 week ago. She has a sore to the lateral aspect of R mid foot. She denies pain due to neuropathy or drainage. She does have a broken ankle and follows Dr. Acharya. She has a boot she wears to keep weight off the R foot. She denies f/c/s, chest pain, sob, n/v/constipation, abd pain, URI sx, melena or hematochezia. She does have diarrhea due to adr from her medications. In ED she remained hemodynamically stable. Lab work revealed elevated ESR 67, CRP 5.04 procalcitonin 1.07. Foot x-ray revealed diffuse soft tissue swelling within the right forefoot no underlying destruction to suggest osteomyelitis. Admission Exam Per Admitting Provider Constitutional: WD/WN, vitals as above, NAD, sitting up in bed, pleasant, conversing easily Head: Normocephalic, Atraumatic Eyes: PERRL, conjunctivae normal, anicteric sclerae ENMT: external ear and nose normal, oropharynx normal Neck: trachea midline, no thyromegaly normal visual inspection Respiratory: normal respiratory effort, lungs clear to auscultation, no wheeze, rales, rhonchi. Normal insp/exp effort, no accessory muscle use Cardiovascular: RRR, no murmur, b/l lower ext erythema, R > L, R extends up prox tibial surface, warm to touch, healing wound to R lateral midfoot, no drainage, palpable pulses b/l, +2 Vessels: no JVD or carotid bruit Chest: normal inspection of chest, RACW port a cath noted, LUE AV fisutla nonfunctional Abdomen: normal bowel sounds, soft, nontender, no hepatosplenomegaly Musculoskeletal: no cyanosis or clubbing, AROM x 4, R ankle with inversion Skin: no rashes, warm and dry normal turgor Neurologic: PERRL, EOMI, accommodation nl, no face palsy, no dysarthria CN's II-XI intact bilaterally and moves all extremities Psychiatric: A+Ox3, euthymic affect : deferred Principal Diagnosis Right foot cellulitis Discharge Exam Constitutional: WD/WN, NAD, sitting up in bed, pleasant, conversing easily Head: Normocephalic, Atraumatic Eyes: PERRL, EOMI, conjunctivae normal, anicteric sclerae ENMT: external ear and nose normal, oropharynx normal Neck:normal visual inspection, supple Respiratory: normal respiratory effort, lungs clear to auscultation, no wheeze, rales, rhonchi. Cardiovascular: RRR, no murmur, b/l lower ext erythema, R > L, R extends up prox tibial surface (much improved now), warm to touch, healing wound to R lateral midfoot, no drainage, palpable pulses b/l, +2 Chest: normal inspection of chest, RACW port a cath noted, LUE AV fistula nonfunctional Abdomen: normal bowel sounds, soft, nontender Musculoskeletal:AROM x 4, R ankle with inversion Skin: no rashes, warm and dry normal turgor Neurologic: PERRL, EOMI, no face palsy, no dysarthria, moves all extremities Psychiatric: A+Ox3, euthymic affect Discharge Data Allergies Allergy/AdvReac Type Severity Reaction Status Date / Time daptomycin AdvReac Intermediate Difficulty Verified 10/14/21 16:55 Breathing Consultations 10/14/21 16:19 ED Decision to Admit Stat 10/14/21 16:36 Consult Nephrology Routine 10/14/21 17:26 Consult Orthopedic Surgery Routine 10/18/21 09:00 Consult Infectious Diseases Routine Ordered Studies 10/14/21 17:26 MR foot RT w/o con Routine FINDINGS: There is a normal marrow signal intensity seen throughout the visualized osseous structures of the right foot. The marrow edema at the base of the fifth metatarsal has resolved in the interval. No areas of cortical destruction to suggest an osteomyelitis. No fracture or dislocation. The Lisfranc joint is intact. Extensive subcutaneous and deep soft tissue edema seen throughout the foot, unchanged. There is also edema within the plantar muscles which is also unchanged. This may represent chronic denervation injury. No loculated fluid collections to suggest an abscess. No joint effusions. The flexor and extensor tendons appear intact. Mild degenerative changes again noted within the foot. IMPRESSION: 1. No abnormal marrow signal or cortical destruction to suggest an osteomyelitis within the right forefoot. 2. Diffuse subcutaneous and soft tissue edema seen throughout the right foot, unchanged. Hospital Course (1) Cellulitis of foot, right: (2) Diabetic foot ulcer: (3) Type 2 diabetes mellitus: (4) End stage renal failure on dialysis: (5) Chronic diastolic CHF (congestive heart failure): (6) Diabetic neuropathy: (7) Hypertension: This is a 66-year-old female w/ insulin-dependent T2DM, end-stage renal disease on hemodialysis Monday, diabetic retinopathy, diabetic neuropathy, chronic HFpEF, history of osteomyelitis of right foot, anemia of renal disease, history of DVT, history of CVA, steal syndrome to left arm who presents to ER secondary to worsening redness and cellulitis on right foot x1 week. Right lower extremity cellulitis including right foot Healing right lateral midfoot diabetic ulcer Diabetic neuropathy History of right foot osteomyelitis treated with IV vancomycin 03/2021-05/2021 admitted to tele started IV vancomycin and rocephin empirically Consulted Dr Acharya - ingrid Infectious disease last note recommendation is for bone bx given recurrence of cellulitis Obtained MRI R foot to eval for OM FINDINGS: There is a normal marrow signal intensity seen throughout the visualized osseous structures of the right foot. The marrow edema at the base of the fifth metatarsal has resolved in the interval. No areas of cortical dest ruction to suggest an osteomyelitis. No fracture or dislocation. The Lisfranc joint is intact. Extensive subcutaneous and deep soft tissue edema seen throughout the foot, unchanged. There is also edema within the plantar muscles which is also unchanged. This may represent chronic denervation injury. No loculated fluid collections to suggest an abscess. No joint effusions. The flexor and extensor tendons appear intact. Mild degenerative changes again noted within the foot. IMPRESSION: 1. No abnormal marrow signal or cortical destruction to suggest an osteomyelitis within the right forefoot. 2. Diffuse subcutaneous and soft tissue edema seen throughout the right foot, unchanged. Per orthopedics At this time, there is not appear to be a need for surgical intervention. She is scheduled for a right pantalar fusion with a retrocalcaneal nail for November 17. We discussed that it be recommended that she remain nonweightbearing on the right lower extremity until that time to avoid a recurrent ulceration at the fifth metatarsal base. Continue antibiotic treatment per the hospitalist team. I also discussed with the patient that the cellulitis will need to be resolved if we were to proceed with her surgery in approximately 5 weeks. Blood cultx - ngtd Surface culture obtained in ED - Gram Stain Final 10/14/21-2013 Gram Stain Result No WBCs Seen Few Gram Positive Cocci Surface Wound Culture Final 10/16/21-1101 Moderate counts mixed probable skin microbiota. No further identifications or sensitivities to follow. Clinic culture grew coag negative staph Wound care consult Cont. IV Abx , discuss w/ ID further plan (likely on Monday) Arterial Duplex LE done 06/2021: IMPRESSION: While there is patent arterial flow bilaterally, there is significantly elevated flow velocity present at multiple sites bilaterally representing sites of focal stenosis. Consider consulting vascular if no improvement Eliquis resumed ESR 67, CRP 10/19 ID consulted, recommend to switch from IV to p.o. antibiotics, linezolid 600 twice daily, to complete 14-day antibiotic course. ESRD on HD MWF consult [facility] nephro Dr. Ambrocio continue phos lo and velphoro monitor mag, phos electrolytes stable, on room air Insulin-dependent T2DM Diabetic neuropathy Diabetic nephropathy Diabetic retinopathy last a1c 6.4 on 06/10/21 Current Hba1c 7.8% Lantus/novolog per protocol consult glycemic pharmacy continue gabapentin Anemia of renal disease hgb stable at 11.8 no s/ sx of bleeding HTN continue hydralazine, coreg DVT ppx: Eliquis Dispo: Plan to DC home today PCP: Dr. Bronson FULL CODE Total Time Total Time Spent Total Time Spent (In Minutes): 40 Discharge Plan Discharge Items Patient Disposition: Home - Self-Care Reason For Visit: R FOOT CELLULITIS Discharge Diagnosis: Right foot cellulitis Activity: Per Instructions section Non-emergency contact: Primary Care Provider Call non-emergency contact if: you have any medication questions and your symptoms worsen Follow-up/Referrals: Melissa Bronson DO [Primary Care Provider] - (Date & Time 10/27/2021 11:10 AM Provider Melissa Bronson DO Department [facility] ) Diet: Dialysis Renal Addtl Attending Provider Instructions: Follow-up with your primary care doctor, the appointment was scheduled for you for October 27, 2021. Take antibiotic, 600 mg twice a day, as prescribed. Follow-up with podiatry. Recommend taking probiotics, while you are on antibiotic therapy, to prevent any diarrhea/abdominal discomfort. Pending Studies at Discharge: No Stand-Alone Forms: My [facility], Smoking Cessation Medications and DC Order Prescriptions: New linezolid 600 mg tablet 600 mg PO BID 8 Days Qty: 16 RF: 0 Continued cholecalciferol (vitamin D3) [Vitamin D3] 2,000 unit Capsule 2,000 unit PO QAM RF: 0 furosemide 40 mg tablet 40 mg PO BID RF: 0 coenzyme Q10 [Co Q-10] 100 mg Capsule 100 mg PO QAM RF: 0 Renal Caps 1 mg Capsule 1 cap PO QAM Qty: 90 RF: 0 atorvastatin 40 mg Tablet 40 mg PO QAM Qty: 30 RF: 0 gabapentin [Neurontin] 100 mg Capsule 100 mg PO HS RF: 0 Eliquis 5 mg tablet 5 mg PO BID RF: 0 multivitamin Tablet 1 tab PO QAM RF: 0 Basaglar KwikPen U-100 Insulin 100 unit/mL (3 mL) insulin pen 30 unit SUBCUT QAM RF: 0 hydralazine 25 mg tablet 25 mg PO TID Qty: 90 RF: 0 carvedilol 12.5 mg Tablet 12.5 mg PO BID Qty: 60 RF: 0 zinc 10 mg Tablet 10 mg PO DAILY RF: 0 Velphoro 500 mg tablet,chewable 500 mg PO .QSUPPER RF: 0 calcium acetate(phosphat bind) 667 mg capsule 1,334 mg PO BIDM RF: 0 dorzolamide-timolol 22.3-6.8 mg/mL Drops 1 drp OPHTHALMIC (EYE) BID RF: 0 Discharge Orders: Discharge Order (Routine); Ordered 10/19/21 Ordered By: Donavan Syed Admission Data Admit Date/Time: 10/14/21 16:36 Attending Provider: Donavan Syed Admit Provider: Jaycob Barroso Primary Care Provider: Melissa Bronson Other Providers: Reinier Ambrocio ; Artem Acharya ; Jaycob Barroso ; Cruz Ardon ; Jeanette Song ; Ethan Tejada I. ; Vinod Carrion II ; Esther Martinez ; Jose Peres ; Esdras Smith
[2021-10-20] MEDS ORDERED: SODIUM CHLORIDE 0.9% 1000ML 1,000 ML IV PRN (07:00)
== END 2021-10-19 18:41 | disposition home health service (06) | DRG 638 ==
LOC: ED 13:38 → SUATTDRO 16:36 → 2N 16:36